=== PATIENT | female | born 1955 | race Caucasian/White ===

== ENCOUNTER 2022-08-13 15:01 | Inpatient (IN) ==
[2022-08-13] MEDS ORDERED: ONDANSETRON INJ 2 MG/ML 2 ML VIAL IV STA (15:27)
--- NOTE | 2022-08-13 15:48 | XRay Report ---
XR chest 1V portable CLINICAL HISTORY: Leg swelling, nausea. COMPARISON STUDY: No previous studies for comparison. FINDINGS: Lung volumes are normal. There is no pneumothorax or pleural effusion. No consolidation is present. There is mild cardiomegaly. Pulmonary vascular congestion is noted without overt pulmonary e ahmet. IMPRESSION: Mild cardiomegaly. Pulmonary vascular congestion without overt pulmonary edema. ACT 112: Negative or not required by law. Electronically signed by: Ronald Jeff M.D. 08/13/2022 3:45 PM
[2022-08-13 15:57] LABS: Basophils % (auto) 0.4 %; Eosinophils % (auto) 1.7 %; Hematocrit (blood only) 39.2 % (37.0-47.0); Hemoglobin 12.5 g/dl (12.0-16.0); Lymphocytes % (auto) 13.3 %; Mean Corpuscular Hemoglobin 28.5 pg (25.0-34.0); Mean Corpuscular Hgb Conc 31.9 g/dL (32.0-36.0); Mean Corpuscular Volume 89.5 fL (80.0-100.0); Mean Platelet Volume 10.1 fL (9.4-12.4); Monocytes % (auto) 6.9 %; Neutrophils % (auto) 77.3 %; Platelet Count 307 K/uL (130-400); RDW Coefficient of Variation 13.2 % (11.5-14.5); RDW Standard Deviation 43.4 fL (36.4-46.3); Red Blood Count 4.38 M/uL (4.20-5.40); White Blood Count 9.53 K/ul (4.8-10.8)
[2022-08-13 15:58] LABS: Basophils # (auto) 0.04 K/uL (0-0.2); Eosinophils # (auto) 0.16 K/uL (0-0.50); Immature Granulocytes # (auto) 0.04 K/uL (0.01-0.20); Immature Granulocytes % (auto) 0.4 %; Lymphocytes # (auto) 1.27 K/uL (1.2-3.4); Monocytes # (auto) 0.66 K/uL (0.11-0.59); Neutrophils # (auto) 7.36 K/uL (1.40-6.50)
--- NOTE | 2022-08-13 16:03 | Emergency Department Note ---
Impression & Plan Nausea & vomiting, Weakness ED Provider Note Provider: Micheal Mitchell MD DATE OF SERVICE: 08/13/2022 CHIEF COMPLAINT: Fall, nausea and vomiting, weakness HISTORY OF PRESENT ILLNESS: Patient is a 67-year-old female history of diabetes and hypothyroidism presenting via ambulance today after a fall. Patient evidently fell to the ground tripping in her living room. States that she has been having some nausea and vomiting leading to extra weakness. Denies any significant chest pain but maybe a slight twinge here there over some time. Patient lives at home by herself and was unable to get up and EMS was activated. Denies significant abdominal pain. States he has a bit of leg swelling a bit worse today and she took Lasix for this. Denies any head trauma or injury or headache. Denies any new numbness or tingling and states her leg swelling is really not much more than his baseline. Denies significant breathing difficulty. PAST MEDICAL HISTORY: As noted above MEDICATIONS: Reviewed home medications SOCIAL HISTORY: Lives at home by herself, no current pets PHYSICAL EXAM: GENERAL: alert and oriented in no acute distress on stretcher Head: normocephalic and atraumatic EYES: No injection, discharge or icterus. NECK: Trachea midline. Supple. ENT: Mucous membranes pink and moist. LUNGS: Airway patent. No retractions. Breath sounds clear with good air entry bilaterally. HEART: Regular rate and rhythm. No chest wall tenderness ABDOMEN: Soft and non-tender, without guarding or rebound. SKIN: Acyanotic, warm, dry, without rashes EXTREMITIES: 1-2+ bilateral lower extremity edema. NEUROLOGICAL: No focal deficits. No aphasia. No facial droop or slurred speech. EK bpm normal sinus rhythm. No PVC or PAC. No acute ST segment elevation or depression with a QTc of 437. CONTINUOUS CARDIAC MONITORING: was ordered and showed a heart rate of bpm in Patient's laboratory studies and imaging reviewed. Differential includes Infection, dehydration, metabolic abnormality, hypo/hyperglycemia, electrolyte disturbance, anemia, hypoxia, cardiac sources, intracerebral event, toxicologic, neurologic, as well as other pathologies. IMPRESSION/MEDICAL DECISION MAKING: Patient with some nausea vomiting and generalized weakness leading to a fall today. Presented by herself without other assistance. Could not get up and EMS was activated. Denies any significant pain or trauma. Denies striking her head. No use of high risk anticoagulants and do not believe we need CT imaging of the head or neck. Benign abdomen although she does report some nausea and v omiting. Basic blood work obtained. Reports some slight chest discomfort recently and an EKG was obtained. Denies significant chest pain now. Does report a bit of leg swelling and chest x-ray does show some slight pulmonary vascular congestion without significant effusion or edema. Not requiring oxygen. Patient is COVID-negative here. Given some Zofran here. Doubt acute intra-abdominal catastrophe such as perforation, cholecystitis, appendicitis, or diverticulitis given her well exam here. Blood work reassuring without leukocytosis or anemia. Urine sample appears contaminated with some bacteria but no white blood cells, nitrates, leuk esterase and doubt infection. No severe electrolyte abnormalities. No evidence of acute hepatitis. Normal renal function. Does report a bit of dysuria but again the urine is contaminated. Sent for culture. Thyroid function within normal limits. Normal troponin. Discussed with her. Sister who occasionally helps in town but otherwise at home alone. Did tolerate a few sips of water. Patient states she feels feels weak and very tired and does not feel that she is able to go home and care for herself at this time. Requesting observation. DIAGNOSIS: Weak, nausea and vomiting DISPOSITION: Hospitalist will evaluate Patient was agreeable with this plan. Past Med/Surg History Medical History ADHD Arthritis Chronic obstructive pulmonary disease Depression Diabetes mellitus, type 2 GERD (gastroesophageal reflux disease) H/O Hx of cancer of endometrium Hx of migraines Hx of sleep apnea NO DEVICE Hyperlipidemia Hypertension Hypothyroidism currently no taking meds, she lost them, needs a new RX Idiopathic hypersomnia Irregular heart beats NO CARDS Myasthenia gravis "EFFECTS ONLY MY VOCAL CORDS" Peripheral neuropathy Stress incontinence in female Surgical History H/O colonoscopy with polypectomy H/O total hysterectomy History of esophagogastroduodenoscopy (EGD) History of tooth extraction Hx of cataract extraction right Nausea and vomiting after administration of anesthetic agent Family History Other No family history of adverse response to anesthesia Social History (Reviewed 01/07/22 @ 08:15 by ESEQUIEL Barrera Smoking Status: Former smoker Second Hand Exposure: Yes (in the past); Do You Dip or Chew Tobacco: No; Hx Alcohol Use: Yes Alcohol type: wine Hx Substance Use: No Preferred Language: Japanese Communication Ability: Effective Electronic Component Processor Required: No Beliefs That Will Affect Care: None Current Living Situation: Alone Feels Safe at Home: Yes Assistive Devices: Cane Allergies Allergies Allergy/AdvReac Type Severity Reaction Status Date / Time penicillin G Allergy Intermediate HIVES Verified 01/09/22 08:48 codeine AdvReac Intermediate VOMITING Verified 01/09/22 08:48 hydrocodone AdvReac Intermediate Vomiting Verified 01/09/22 08:48 Home Meds Home Medications Medication Instructions Recorded Confirmed Insulin Regular 1 dose SC UD 03/27/21 01/07/22 albuterol sulfate 90 mcg/actuation 1 inh inhalation QID PRN SHORT OF 03/27/21 01/07/22 aerosol inhaler BREATH atorvastatin 20 mg tablet 20 mg PO QPM 03/27/21 01/07/22 bupropion HCl 100 mg tablet,12 hr 100 mg PO QAM 03/27/21 01/07/22 sustained-release bupropion HCl 150 mg tablet,12 hr 150 mg PO QAM 03/27/21 01/07/22 sustained-release cyanocobalamin (vitamin B-12) 1,000 mcg PO QAM 03/27/21 01/07/22 1,000 mcg tablet dextroamphetamine-amphetamine 10 10 mg PO DAILY PRN IF I NEED IT 03/27/21 01/07/22 mg tablet (Adderall) fluoxetine 60 mg tablet 60 mg PO QAM 03/27/21 01/07/22 insulin NPH-regular 70-30 U-100 30 - 40 unit subcut DAILY 03/27/21 01/07/22 insulin 100 unit/mL subcutaneous pen losartan 100 mg tablet 100 mg PO QAM 03/27/21 01/07/22 magnesium oxide 400 mg PO QAM 03/27/21 01/07/22 potassium chloride 10 mEq 10 meq PO QAM 03/27/21 01/07/22 capsule,extended release Results & Data (ED) Vital Signs Vital Signs - 24 hr 08/13/22 15:24 08/13/22 15:24 08/13/22 15:34 Temperature 36.8 C 36.8 C Temperature Source Oral Oral Pulse Rate 99 H 81 Pulse Rate [Apical] 82 Respiratory Rate 15 18 Blood Pressure 163/89 H Blood Pressure Mean 113 Pulse Oximetry 96 96 Oxygen Delivery Method Room Air Sepsis Recent Fever Within 48 Hours No Sepsis New/Unexplained Change in Mental Status No Sepsis Action Taken by Nursing No Action Required Laboratory Data 08/13/22 15:32 08/13/22 15:32 Lab Results 08/13/22 08/13/22 08/13/22 Range/Units 15:30 15:32 15:32 WBC 9.53 (4.8-10.8) K/ul RBC 4.38 (4.20-5.40) M/uL Hgb 12.5 (12.0-16.0) g/dl Hct 39.2 (37.0-47.0) % MCV 89.5 (80.0-100.0) fL MCH 28.5 (25.0-34.0) pg MCHC 31.9 L (32.0-36.0) g/dL RDW Std Deviation 43.4 (36.4-46.3) fL RDW Coeff of Buck 13.2 (11.5-14.5) % Plt Count 307 (130-400) K/uL MPV 10.1 (9.4-12.4) fL Immature Gran % (Auto) 0.4 % Neut % (Auto) 77.3 % Lymph % (Auto) 13.3 % Pitt % (Auto) 6.9 % Eos % (Auto) 1.7 % Baso % (Auto) 0.4 % Neut # (Auto) 7.36 H (1.40-6.50) K/uL Lymph # (Auto) 1.27 (1.2-3.4) K/uL Pitt # (Auto) 0.66 H (0.11-0.59) K/uL Eos # (Auto) 0.16 (0-0.50) K/uL Baso # (Auto) 0.04 (0-0.2) K/uL Immature Gran # (Auto) 0.04 (0.01-0.20) K/uL Sodium 135 L (136-145) mmol/L Potassium 4.8 (3.5-5.1) mmol/L Chloride 102 (98-107) mmol/L Carbon Dioxide 26 (21-32) mmol/L Anion Gap 7 (3-11) BUN 17 (6-23) mg/dl Creatinine 0.95 (0.6-1.2) mg/dl Est Cr Clr Drug Dosing Not Reportable Est GFR ( Amer) 70.8 ml/min Est GFR (Non-Af Amer) 61.1 ml/min BUN/Creatinine Ratio 17.9 (10-20) Glucose 93 (70-99(Fasting)) mg/dl Calcium 8.7 (8.6-10.3) mg/dl Magnesium 2.1 (1.7-2.4) mg/dl Total Bilirubin 0.8 (0.2-1.0) mg/dl AST 14 (13-39) U/L ALT 13 (7-52) U/L Alkaline Phosphatase 66 (34-104) U/L Total Creatine Kinase 66 (26-192) U/L Troponin I High Sens 5.7 (0-14) pg/ml Total Protein 6.9 (6.0-8.3) gm/dl Albumin 3.8 (3.4-5.0) gm/dl Globulin 3.1 (2.5-4.0) gm/dl Albumin/Globulin Ratio 1.2 (0.9-2) TSH (0.300-4.500) uIu/ml Urine Color Urine Appearance (Clear) Urine pH (4.5-7.5) Ur Specific Geraldine (1.000-1.030) Urine Protein (Negative) Urine Glucose (UA) (Negative) Urine Ketones (Negative) Urine Blood (Negative) Urine Nitrite (Negative) Urine Bilirubin (Negative) Urine Urobilinogen (Negative) Ur Leukocyte Esterase (Negative) Urine WBC (Auto) (0-5) /hpf Urine RBC (Auto) (0-4) /hpf U Hyaline Cast (Auto) (0-5) /lpf U Epithel Cells (Auto) (0-5) /lpf Urine Bacteria (Auto) (Negative) SARS-CoV-2, RNA, NAAT NEGATIVE (NEGATIVE) 08/13/22 08/13/22 Range/Units 15:32 16:10 WBC (4.8-10.8) K/ul RBC (4.20-5.40) M/uL Hgb (12.0-16.0) g/dl Hct (37.0-47.0) % MCV (80.0-100.0) fL MCH (25.0-34.0) pg MCHC (32.0-36.0) g/dL RDW Std Deviation (36.4-46.3) fL RDW Coeff of Buck (11.5-14.5) % Plt Count (130-400) K/uL MPV (9.4-12.4) fL Immature Gran % (Auto) % Neut % (Auto) % Lymph % (Auto) % Pitt % (Auto) % Eos % (Auto) % Baso % (Auto) % Neut # (Auto) (1.40-6.50) K/uL Lymph # (Auto) (1.2-3.4) K/uL Pitt # (Auto) (0.11-0.59) K/uL Eos # (Auto) (0-0.50) K/uL Baso # (Auto) (0-0.2) K/uL Immature Gran # (Auto) (0.01-0.20) K/uL Sodium (136-145) mmol/L Potassium (3.5-5.1) mmol/L Chloride (98-107) mmol/L Carbon Dioxide (21-32) mmol/L Anion Gap (3-11) BUN (6-23) mg/dl Creatinine (0.6-1.2) mg/dl Est Cr Clr Drug Dosing Est GFR ( Amer) ml/min Est GFR (Non-Af Amer) ml/min BUN/Creatinine Ratio (10-20) Glucose (70-99(Fasting)) mg/dl Calcium (8.6-10.3) mg/dl Magnesium (1.7-2.4) mg/dl Total Bilirubin (0.2-1.0) mg/dl AST (13-39) U/L ALT (7-52) U/L Alkaline Phosphatase (34-104) U/L Total Creatine Kinase (26-192) U/L Troponin I High Sens (0-14) pg/ml Total Protein (6.0-8.3) gm/dl Albumin (3.4-5.0) gm/dl Globulin (2.5-4.0) gm/dl Albumin/Globulin Ratio (0.9-2) TSH 4.361 (0.300-4.500) uIu/ml Urine Color Yellow Urine Appearance Cloudy A (Clear) Urine pH 8.0 H (4.5-7.5) Ur Specific Geraldine 1.013 (1.000-1.030) Urine Protein 2+ H (Negative) Urine Glucose (UA) Negative (Negative) Urine Ketones Negative (Negative) Urine Blood Negative (Negative) Urine Nitrite Negative (Negative) Urine Bilirubin Negative (Negative) Urine Urobilinogen Negative (Negative) Ur Leukocyte Esterase Negative (Negative) Urine WBC (Auto) 1-5 (0-5) /hpf Urine RBC (Auto) 5-10 H (0-4) /hpf U Hyaline Cast (Auto) 1-5 (0-5) /lpf U Epithel Cells (Auto) >30 H (0-5) /lpf Urine Bacteria (Auto) 2+ H (Negative) SARS-CoV-2, RNA, NAAT (NEGATIVE) Administered Medications Discontinued Medications Ondansetron HCl (Ondansetron Inj 2 Mg/Ml 2 Ml Vial) 4 mg IV NOW STA Stop: 08/13/22 15:28 Last Admin: 08/13/22 15:55 Dose: 4 mg Documented By: LIBIA Imaging Data Radiologist's Impression: Chest X-Ray 08/13/22 15:27 XR chest 1V portable CLINICAL HISTORY: Leg swelling, nausea. COMPARISON STUDY: No previous studies for comparison. FINDINGS: Lung volumes are normal. There is no pneumothorax or pleural effusion. No consolidation is present. There is mild cardiomegaly. Pulmonary vascular congestion is noted without overt pulmonary edema. IMPRESSION: Mild cardiomegaly. Pulmonary vascular congestion without overt pulmonary edema. ACT 112: Negative or not required by law. Electronically signed by: Ronald Jeff M.D. 08/13/2022 3:45 PM Discharge Plan Visit Data Chief Complaint: Illness ED Provider: Micheal Mitchell Discharge Problem: Nausea & vomiting, Weakness Patient Disposition: Being Evaluated by Hospitalist Forms Stand Alone Forms: My [facility] Prescriptions Prescriptions: No Action bupropion HCl 150 mg Tablet Sustained-Release 12 Hr 150 mg PO QAM potassium chloride 10 mEq Capsule, Extended Release 10 meq PO QAM atorvastatin 20 mg Tablet 20 mg PO QPM dextroamphetamine-amphetamine [Adderall] 10 mg Tablet 10 mg PO DAILY PRN (Reason: IF I NEED IT) cyanocobalamin (vitamin B-12) 1,000 mcg Tablet 1,000 mcg PO QAM bupropion HCl 100 mg Tablet Sustained-Release 12 Hr 100 mg PO QAM losartan 100 mg Tablet 100 mg PO QAM insulin NPH and regular human 100 unit/mL (70-30) Insulin Pen 30 - 40 unit SUBCUT DAILY Patient Comments: TAKES ONCE DAILY (NOT CONSISTANT) fluoxetine 60 mg Tablet 60 mg PO QAM magnesium oxide 400 mg magnesium Capsule 400 mg PO QAM Insulin Regular 1 dose SC UD Patient Comments: PER SLIDING SCALE (PT CAN NOT READ VIAL) albuterol sulfate 90 mcg/actuation Hfa Aerosol Inhaler 1 inh INHALATION QID PRN (Reason: SHORT OF BREATH) Referrals Referrals: Tariq Abdalla MD [Outside Practitioners] - Nausea & vomiting Qualifiers: Vomiting type: unspecified Qualified Code(s): R11.2 - Nausea with vomiting, unspecified
[2022-08-13 16:33] LABS: Appearance Urine Cloudy (Clear); Bacteria Urine Automated 2+ (Negative); Bilirubin Urine Negative (Negative); Blood Urine Negative (Negative); Color Urine Yellow; Epithelial Cell Urine Auto >30 /lpf (0-5); Glucose Urine UA Negative (Negative); Ketones Urine Negative (Negative); Leukocyte Esterase Urine Negative (Negative); Nitrite Urine Negative (Negative); Specific Gravity Urine 1.013 (1.000-1.030); Urobilinogen Urine Negative (Negative)
[2022-08-13 16:34] LABS: Protein Urine 2+ (Negative)
[2022-08-13 16:34] LABS: Albumin Level 3.8 gm/dl (3.4-5.0); Anion Gap 7 (3-11); Bilirubin,Total 0.8 mg/dl (0.2-1.0); Calcium 8.7 mg/dl (8.6-10.3); Carbon Dioxide 26 mmol/L (21-32); Chloride 102 mmol/L (98-107); Magnesium 2.1 mg/dl (1.7-2.4); Potassium 4.8 mmol/L (3.5-5.1); Sodium 135 mmol/L (136-145)
[2022-08-13 16:40] LABS: Alanine Aminotransferase 13 U/L (7-52); Albumin Globulin Ratio 1.2 (0.9-2); Alkaline Phosphatase 66 U/L (34-104); Aspartate Aminotransferase 14 U/L (13-39); BUN Creatinine Ratio 17.9 (10-20); Blood Urea Nitrogen 17 mg/dl (6-23); Creatine Kinase 66 U/L (26-192); Est GFR (African American) 70.8 ml/min; Est GFR (Non-African American) 61.1 ml/min; Globulin 3.1 gm/dl (2.5-4.0); Glucose 93 mg/dl (70-99(Fasting)); Total Protein 6.9 gm/dl (6.0-8.3)
[2022-08-13 16:42] LABS: Troponin I High Sensitivity 5.7 pg/ml (0-14)
[2022-08-13] MEDS ORDERED: ALUMINUM/MAGNESIUM SUSP 30 ML UDC PO PRN (17:33)
[2022-08-13] MEDS ORDERED: MAGNESIUM HYDROXIDE SUSP 30 ML UDC PO PRN (17:33)
--- NOTE | 2022-08-13 17:41 | History & Physical Report ---
Date of Service August 13, 2022 Assessment & Plan (1) Nausea & vomiting: (2) Weakness: (3) Diabetes mellitus, type 2: (4) Hypertension: (5) Depression: (6) GERD (gastroesophageal reflux disease): (7) Hyperlipidemia: Plan 67 year old female presents to the ED s/p fall, weakness and nausea/vomiting. Symptoms appear to have resolved but patient reluctant to go home and feels she needs additional support at home. She feels too weak to go home and would like evaluated for short term placement. Nausea and Vomiting: Received Zofran x1 in ED; continue PRN Zofran Vomited today with some bile, but no vomiting since arrival to ED Consider abdominal CT if symptoms return advance diet as tolerated Weakness: B/L LE edema s/p mechanical fall; fell on right side No dizziness No pain from fall Took Lasix 40 mg today x1 for le swelling;reassess in AM continuation of Lasix Diabetes Mellitus, Type 2: Insulin dependent; takes 45-50 units of Lantus and SSI with Novolog FSBS ACHS SSI while inpatient check A1C HTN: Takes Losartan; continue HLD: Takes Atorvastatin; continue Depression: Takes Wellbutrin and Prozac; continue ADHD: Takes Adderall PRN At one time was diagnosed with idiopathic hypersomnia and was taking Adderall for that Disposition: PCP: Dr. Cavazos Code Status: Full code VTE Prophylaxis: Lovenox SQ/wears compression socks at home decision maker: Carmela Terry;sister I spent a total of 88 minutes coordinating, documenting, and providing care for this patient excluding time spent in the performance of separately billed services. All of the aforementioned completed while collaborating with the assigned attending physician for a full treatment plan. Please see their addendum for further details. History of Present Illness Chief Complaint: N/V Primary Care Provider: Aivva Rossi DO Ms. Gamboa presented to the [facility] with nausea and vomiting and having amb ulatory dysfunction with some dizziness. Patient reports having a mechanical fall in her living room today and heading to her chair. She did not hit head nor did she have a LOC. She reports increasing weakness over the past few days. Patient denies headache, shortness of breath, chest pain, palpitations, abdominal pain, urinary changes, appetite changes. She does report having increased bilateral lower extremity swelling for which she did take Lasix. She denies hitting her head or LOC after her fall. CXR shows cardiomegaly and pulmonary vascular congestion. Pt reports having increased swelling in her B/L LE. Pt is not requiring supplemental oxygen. The only medications she has taken today was Lasix and Ceftin (she stepped on a piece of glass last week). She did not take her anti-hypertensive medications today. No leukocytosis or anemia noted on her labs. Will obtain urine culture based on UA results. Troponin negative. Patient does state that she feels her weakness leads to her not being able to care for herself at home. She reports that her home is like a 'hoarding' house. She reports that she has been hiring folks to help her with this. May need to consider short-term placement pending PT and OT evals. 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 Patient sitting upright in her hospital bed in no apparent distress. She does not appear toxic and is hemodynamically stable. Pt able to follow commands appropriately. Patient will be admitted for further evaluation and management. Please see A/P for further details. Allergies Allergy/AdvReac Type Severity Reaction Status Date / Time penicillin G Allergy Intermediate HIVES Verified 08/13/22 18:29 codeine AdvReac Intermediate VOMITING Verified 08/13/22 18:29 hydrocodone AdvReac Intermediate Vomiting Verified 08/13/22 18:29 Home Medications Medication Instructions Recorded Confirmed Type albuterol sulfate 90 mcg/actuation 1 inh inhalation QID PRN SHORT OF 03/27/21 08/13/22 History aerosol inhaler BREATH atorvastatin 20 mg tablet 20 mg PO QAM 03/27/21 08/13/22 History bupropion HCl 100 mg tablet,12 hr 100 mg PO QAM 03/27/21 08/13/22 History sustained-release bupropion HCl 150 mg tablet,12 hr 150 mg PO QAM 03/27/21 08/13/22 History sustained-release cyanocobalamin (vitamin B-12) 1,000 mcg PO QAM 03/27/21 08/13/22 History 1,000 mcg tablet fluoxetine 60 mg tablet 60 mg PO QAM 03/27/21 08/13/22 History insulin NPH-regular 70-30 U-100 See Rx Instructions .Route .COMPLEX 03/27/21 08/13/22 History insulin 100 unit/mL subcutaneous pen losartan 100 mg tablet 100 mg PO QAM 03/27/21 08/13/22 History magnesium oxide 400 mg PO QAM 03/27/21 08/13/22 History potassium chloride 10 mEq 10 meq PO QAM 03/27/21 08/13/22 History capsule,extended release furosemide 40 mg tablet 40 mg PO QAM 08/13/22 08/13/22 History insulin glargine 100 unit/mL (3 50 unit subcut DAILY 08/13/22 08/13/22 History mL) subcutaneous pen (Lantus Solostar U-100 Insulin) levothyroxine 50 mcg tablet 50 mcg PO QAM 08/13/22 08/13/22 History sulfamethoxazole 800 1 tab PO BID 08/13/22 08/13/22 History mg-trimethoprim 160 mg tablet Past Med/Surg History Medical History (Updated 08/13/22 @ 18:04 by RICCI Tenorio) ADHD Arthritis Chronic obstructive pulmonary disease Depression Diabetes mellitus, type 2 GERD (gastroesophageal reflux disease) H/O Hx of cancer of endometrium Hx of migraines Hx of sleep apnea NO DEVICE Hyperlipidemia Hypertension Hypothyroidism currently no taking meds, she lost them, needs a new RX Idiopathic hypersomnia Irregular heart beats NO CARDS Myasthenia gravis "EFFECTS ONLY MY VOCAL CORDS" Peripheral neuropathy Stress incontinence in female Surgical History H/O colonoscopy with polypectomy H/O total hysterectomy History of esophagogastroduodenoscopy (EGD) History of tooth extraction Hx of cataract extraction right Nausea and vomiting after administration of anesthetic agent Family History Other No family history of adverse response to anesthesia Social History Smoking Status: Former smoker Second Hand Exposure: Yes (in the past); Do You Dip or Chew Tobacco: No; Hx Alcohol Use: Yes Alcohol type: wine Hx Substance Use: No Preferred Language: Yi Communication Ability: Effective Mortgage Broker Required: No Beliefs That Will Affect Care: None Current Living Situation: Alone Feels Safe at Home: Yes Assistive Devices: Cane Review of Systems Review of Systems: Neuro: (-) Falls, trauma, slurred speech HEENT: (-) EDWARDS, dizziness, dysphagia, visual or auditory changes CV: (-) CP, palpitations, swelling Resp: (-) SOB GI: (-) appetite changes, N/V/D, bowel changes : (-) urinary changes Skin: (-) rashes Psych: (-) anxiety, depression Physical Exam Physical Exam: Neuro: AAOx4, PERRLA, no aphagia, memory changes, CNII-XII grossly intact HEENT: head normocephalic, moist mucus membranes CV: S1/S2, (-) M/G/R, (-) edema, cap refill < 3 seconds Resp: Lungs CTA in all coronel. On RA GI: Abdomen large S/NT/ND, Ax4 bowel sounds, (-) CVA tenderness Musculoskeletal: 5/5 B/L UE strength, 5/5 B/L LE strength. No gait disturbance Skin: (-) rashes , (-) erythema. Psych: euthymic mood Results & Data Results & Data Vital Signs (Past 12 Hours) Vital Signs Temp Pulse Pulse Resp BP Pulse Ox O2 Del Method 08/13/22 15:34 81 08/13/22 15:24 36.8 C 82 18 96 08/13/22 15:24 36.8 C 99 H 15 163/89 H 96 Room Air Laboratory Results Short CBC 08/13/22 Range/Units 15:32 WBC 9.53 (4.8-10.8) K/ul Hgb 12.5 (12.0-16.0) g/dl Hct 39.2 (37.0-47.0) % Plt Count 307 (130-400) K/uL BMP 08/13/22 15:32 Sodium 135 L Potassium 4.8 Chloride 102 Carbon Dioxide 26 BUN 17 Creatinine 0.95 Glucose 93 Calcium 8.7 Cardiac Enzymes 08/13/22 Range/Units 15:32 Total Creatine Kinase 66 (26-192) U/L Liver Function 08/13/22 Range/Units 15:32 Total Bilirubin 0.8 (0.2-1.0) mg/dl AST 14 (13-39) U/L ALT 13 (7-52) U/L Alkaline Phosphatase 66 (34-104) U/L Albumin 3.8 (3.4-5.0) gm/dl Urine 08/13/22 Range/Units 16:10 Urine Color Yellow Urine Appearance Cloudy A (Clear) Urine pH 8.0 H (4.5-7.5) Ur Specific Vance 1.013 (1.000-1.030) Urine Protein 2+ H (Negative) Urine Glucose (UA) Negative (Negative) Diagnostic Findings Chest X-Ray 08/13/22 15:27 XR chest 1V portable CLINICAL HISTORY: Leg swelling, nausea. COMPARISON STUDY: No previous studies for comparison. FINDINGS: Lung volumes are normal. There is no pneumothorax or pleural effusion. No consolidation is present. There is mild cardiomegaly. Pulmonary vascular congestion is noted without overt pulmonary edema. IMPRESSION: Mild cardiomegaly. Pulmonary vascular congestion without overt pulmonary edema. ACT 112: Negative or not required by law. Electronically signed by: Roanld Jeff M.D. 08/13/2022 3:45 PM Code Status & VTE Plan Code Status Full code in the event of cardiac or respiratory arrest VTE Prophylaxis Plan VTE Prophylaxis will be ordered: Yes Supervising Physician Co-Signing Physician Notes Patient was seen and examined independently. Chart reviewed. Case discussed with EDMUNDO. PT/OT, CM consult for placement (1) Nausea & vomiting Vomiting type: unspecified Qualified Code(s): R11.2 - Nausea with vomiting, unspecified
[2022-08-13] MEDS ORDERED: DIPHTHERIA/TETANUS/PERTUSSIS Vaccine (Tdap, Age 7+yrs) 0.5mL SYR/VL IM ONE (18:50)
[2022-08-13] MEDS ORDERED: CARBOHYDRATES FOR HYPOGLYCEMIA PO PRN (22:11)
[2022-08-13] MEDS ORDERED: GLUCAGON FOR INJ 1 MG VIAL SQ PRN (22:11)
[2022-08-13] MEDS ORDERED: DEXTROSE 50% 50 ML SYRINGE IV PRN (22:11)
[2022-08-13] MEDS ORDERED: GLUCOSE 10 TAB/TUBE PO PRN (22:11)
[2022-08-13] MEDS ORDERED: PHARMACY GLYCEMIC MGMT CONSULT PRN (22:11)
[2022-08-13] MEDS ORDERED: GLUCOSE 40% GEL 15 GM TUBE PO PRN (22:11)
[2022-08-13] MEDS: INSULIN ASPART PER UNIT CHARGE SC SCH (22:41)
[2022-08-13] MEDS: LANTUS PER UNIT CHARGE SQ SCH (22:46)
[2022-08-13] MEDS: HEPARIN SOD 5,000 UNIT/0.5 ML VIAL SQ SCH (22:56)
[2022-08-14] MEDS: LEVOTHYROXINE SODIUM 50 MCG TABLET PO SCH (05:49)
[2022-08-14] MEDS: ACETAMINOPHEN 325 MG TAB PO PRN (05:52)
[2022-08-14 06:51] LABS: Hemoglobin 11.2 g/dl (12.0-16.0); Mean Corpuscular Hemoglobin 28.2 pg (25.0-34.0); Mean Corpuscular Volume 88.2 fL (80.0-100.0); Mean Platelet Volume 10.1 fL (9.4-12.4); Platelet Count 271 K/uL (130-400); RDW Coefficient of Variation 13.2 % (11.5-14.5); Red Blood Count 3.97 M/uL (4.20-5.40); White Blood Count 10.59 K/ul (4.8-10.8)
[2022-08-14 07:16] LABS: Albumin Globulin Ratio 1.3 (0.9-2); Albumin Level 3.2 gm/dl (3.4-5.0); BUN Creatinine Ratio 17.2 (10-20); Bilirubin,Total 0.7 mg/dl (0.2-1.0); Calcium 8.7 mg/dl (8.6-10.3); Creatinine Clr Calc Pharmacy 82.4 ml/min; Est GFR (African American) 78.8 ml/min; Globulin 2.5 gm/dl (2.5-4.0); Magnesium 2.1 mg/dl (1.7-2.4); Potassium 4.6 mmol/L (3.5-5.1); Total Protein 5.7 gm/dl (6.0-8.3)
[2022-08-14 07:29] LABS: Estimated Average Glucose 146 mg/dl; Hemoglobin A1C 6.7 % (4.5-5.6)
[2022-08-14] MEDS ORDERED: ENOXAPARIN INJ 30 MG/0.3 ML SYR SQ SCH (09:00)
[2022-08-14] MEDS: INSULIN ASPART PER UNIT CHARGE SC SCH ×4 (09:12→21:17)
[2022-08-14] MEDS: LANTUS PER UNIT CHARGE SQ SCH (09:16)
[2022-08-14] MEDS: buPROPion SR 100 MG TABCR PO SCH (09:17)
[2022-08-14] MEDS: buPROPion SR 150 MG TABCR PO SCH (09:18)
[2022-08-14] MEDS: FUROSEMIDE 40 MG TAB PO SCH (09:18)
[2022-08-14] MEDS: HEPARIN SOD 5,000 UNIT/0.5 ML VIAL SQ SCH ×2 (09:18→21:14)
[2022-08-14] MEDS: LOSARTAN POTASSIUM 50 MG TAB PO SCH (09:18)
[2022-08-14] MEDS: FLUoxetine HCL 20 MG CAP PO SCH (09:18)
[2022-08-14] MEDS: ATORVASTATIN 20 MG TAB PO SCH (09:18)
[2022-08-14] MEDS: POTASSIUM CHLORIDE 10 MEQ TABCR PO SCH ×2 (09:19→09:21)
[2022-08-14] MEDS: CYANOCOBALAMIN (B-12) 500 MCG TABLET PO SCH (09:19)
[2022-08-14] MEDS: MAGNESIUM OXIDE 400 MG TAB PO SCH (09:19)
--- NOTE | 2022-08-14 09:24 | Hospitalist Progress Note ---
Date of Service August 14, 2022 Assessment & Plan (1) Nausea & vomiting: (2) Weakness: (3) Diabetes mellitus, type 2: (4) Hypertension: (5) Depression: (6) GERD (gastroesophageal reflux disease): (7) Hyperlipidemia: Plan 67 year old female presents to the ED s/p fall, weakness and nausea/vomiting. Symptoms appear to have mostly resolved. Pt felt too weak to go home and would like evaluated for short term placement. UTI Ucultx - probable Enterococcus -pt w/ PCN allergy - discussed w/ pharmacy - will start on vancomycin for now -Per patient, sisters history of UTIs and pyelonephritis in the past. Also reports using penicillin in the past, then developed hives, and has not used it since Nausea and Vomiting: Received Zofran x1 in ED; continue PRN Zofran - no vomiting since arrival to ED, currently eating Consider abdominal CT if symptoms return advance diet as tolerated Weakness: B/L LE edema s/p mechanical fall; fell on right side No dizziness No pain from fall Took Lasix 40 mg x1 for le swelling;reassess in AM continuation of Lasix 5/24 -orthostatic today on PT evaluation, hold Lasix, compression stockings daily Diabetes Mellitus, Type 2: Insulin dependent; takes 45-50 units of Lantus and SSI with Novolog FSBS ACHS SSI while inpatient check A1C HTN: Takes Losartan; continue HLD: Takes Atorvastatin; continue Depression: Takes Wellbutrin and Prozac; continue ADHD: Takes Adderall PRN At one time was diagnosed with idiopathic hypersomnia and was taking Adderall for that CATHERINE -Patient reports history of CATHERINE, and reports that she is supposed to be evaluated as outpatient -May need nocturnal hypoxia study done prior to discharge Disposition: PCP: Dr. Cavazos Code Status: Full code VTE Prophylaxis: Lovenox SQ/wears compression socks at home decision maker: Carmela Terry;sister Admission and Anticipated Discharge Date Admission Date: August 13, 2022 Subjective Pt seen in follow up of weakness, n/v, UTI Currently sitting up in bed, in no acute distress, reports having history of UTIs, and pyelonephritis in the past Urine culture positive for probable Enterococcus, discussed with pharmacy Patient reports she used penicillin in the past without any issues, then developed hives and did not use it since then Denies fevers chills denies chest pain or shortness of breath Reports history of sleep apnea, and states that she was supposed to have a sleep study done as outpatient today Patient also was orthostatic today with PT Review of Systems Review of Systems: All systems reviewed & are unremarkable except as noted in Subjective Physical Exam 2 Physical Exam: General: obese F (BMI 55), in NAD HEENT: head normocephalic, moist mucus membranes CV: S1/S2, (-) M/G/R, (+) edema Resp: Lungs CTAB GI: Abdomen large S/NT/ND, Ax4 bowel sounds, (-) CVA tenderness Musculoskeletal: moves extremities Skin: (-) rashes , (-) erythema. Neuro: AAOx3, EOMI, no facial asymmetry, moves extremities Psych: euthymic mood Results & Data Results & Data Vital Signs (Past 12 Hours) Vital Signs Temp Pulse Pulse Pulse Resp BP BP 08/14/22 07:30 36.4 C L 82 20 133/76 08/14/22 02:48 36.4 C L 78 18 126/70 08/14/22 01:37 81 08/13/22 23:12 08/13/22 23:12 36.3 C L 82 20 122/72 Pulse Ox O2 Del Method O2 Flow Rate 08/14/22 07:30 97 Nasal Cannula 2 08/14/22 02:48 97 Nasal Cannula 1 08/14/22 01:37 08/13/22 23:12 Nasal Cannula 2 08/13/22 23:12 100 Nasal Cannula 2 Laboratory Results 08/14/22 08/14/22 08/14/22 Range/Units 09:09 06:17 06:17 WBC 10.59 (4.8-10.8) K/ul RBC 3.97 L (4.20-5.40) M/uL Hgb 11.2 L (12.0-16.0) g/dl Hct 35.0 L (37.0-47.0) % MCV 88.2 (80.0-100.0) fL MCH 28.2 (25.0-34.0) pg MCHC 32.0 (32.0-36.0) g/dL RDW Std Deviation 43.0 (36.4-46.3) fL RDW Coeff of Buck 13.2 (11.5-14.5) % Plt Count 271 (130-400) K/uL MPV 10.1 (9.4-12.4) fL Immature Gran % (Auto) % Neut % (Auto) % Lymph % (Auto) % [place] % (Auto) % Eos % (Auto) % Baso % (Auto) % Neut # (Auto) (1.40-6.50) K/uL Lymph # (Auto) (1.2-3.4) K/uL [place] # (Auto) (0.11-0.59) K/uL Eos # (Auto) (0-0.50) K/uL Baso # (Auto) (0-0.2) K/uL Immature Gran # (Auto) (0.01-0.20) K/uL Sodium 135 L (136-145) mmol/L Potassium 4.6 (3.5-5.1) mmol/L Chloride 104 (98-107) mmol/L Carbon Dioxide 25 (21-32) mmol/L Anion Gap 6 (3-11) BUN 15 (6-23) mg/dl Creatinine 0.87 (0.6-1.2) mg/dl Est Cr Clr Drug Dosing 82.4 Est GFR ( Amer) 78.8 ml/min Est GFR (Non-Af Amer) 68.0 ml/min BUN/Creatinine Ratio 17.2 (10-20) Glucose 61 L (70-99(Fasting)) mg/dl POC Glucose 122 H (70-99) mg/dl Estimat Average Glucose mg/dl Hemoglobin A1c (4.5-5.6) % Calcium 8.7 (8.6-10.3) mg/dl Magnesium 2.1 (1.7-2.4) mg/dl Total Bilirubin 0.7 (0.2-1.0) mg/dl AST 11 L (13-39) U/L ALT 10 (7-52) U/L Alkaline Phosphatase 53 (34-104) U/L Total Creatine Kinase (26-192) U/L Troponin I High Sens (0-14) pg/ml Total Protein 5.7 L (6.0-8.3) gm/dl Albumin 3.2 L (3.4-5.0) gm/dl Globulin 2.5 (2.5-4.0) gm/dl Albumin/Globulin Ratio 1.3 (0.9-2) TSH (0.300-4.500) uIu/ml Urine Color Urine Appearance (Clear) Urine pH (4.5-7.5) Ur Specific [place] (1.000-1.030) Urine Protein (Negative) Urine Glucose (UA) (Negative) Urine Ketones (Negative) Urine Blood (Negative) Urine Nitrite (Negative) Urine Bilirubin (Negative) Urine Urobilinogen (Negative) Ur Leukocyte Esterase (Negative) Urine WBC (Auto) (0-5) /hpf Urine RBC (Auto) (0-4) /hpf U Hyaline Cast (Auto) (0-5) /lpf U Epithel Cells (Auto) (0-5) /lpf Urine Bacteria (Auto) (Negative) SARS-CoV-2, RNA, NAAT (NEGATIVE) 08/14/22 08/13/22 08/13/22 Range/Units 06:17 21:28 16:10 WBC (4.8-10.8) K/ul RBC (4.20-5.40) M/uL Hgb (12.0-16.0) g/dl Hct (37.0-47.0) % MCV (80.0-100.0) fL MCH (25.0-34.0) pg MCHC (32.0-36.0) g/dL RDW Std Deviation (36.4-46.3) fL RDW Coeff of Buck (11.5-14.5) % Plt Count (130-400) K/uL MPV (9.4-12.4) fL Immature Gran % (Auto) % Neut % (Auto) % Lymph % (Auto) % [place] % (Auto) % Eos % (Auto) % Baso % (Auto) % Neut # (Auto) (1.40-6.50) K/uL Lymph # (Auto) (1.2-3.4) K/uL [place] # (Auto) (0.11-0.59) K/uL Eos # (Auto) (0-0.50) K/uL Baso # (Auto) (0-0.2) K/uL Immature Gran # (Auto) (0.01-0.20) K/uL Sodium (136-145) mmol/L Potassium (3.5-5.1) mmol/L Chloride (98-107) mmol/L Carbon Dioxide (21-32) mmol/L Anion Gap (3-11) BUN (6-23) mg/dl Creatinine (0.6-1.2) mg/dl Est Cr Clr Drug Dosing Est GFR ( Amer) ml/min Est GFR (Non-Af Amer) ml/min BUN/Creatinine Ratio (10-20) Glucose (70-99(Fasting)) mg/dl POC Glucose 101 H (70-99) mg/dl Estimat Average Glucose 146 mg/dl Hemoglobin A1c 6.7 H (4.5-5.6) % Calcium (8.6-10.3) mg/dl Magnesium (1.7-2.4) mg/dl Total Bilirubin (0.2-1.0) mg/dl AST (13-39) U/L ALT (7-52) U/L Alkaline Phosphatase (34-104) U/L Total Creatine Kinase (26-192) U/L Troponin I High Sens (0-14) pg/ml Total Protein (6.0-8.3) gm/dl Albumin (3.4-5.0) gm/dl Globulin (2.5-4.0) gm/dl Albumin/Globulin Ratio (0.9-2) TSH (0.300-4.500) uIu/ml Urine Color Yellow Urine Appearance Cloudy A (Clear) Urine pH 8.0 H (4.5-7.5) Ur Specific [place] 1.013 (1.000-1.030) Urine Protein 2+ H (Negative) Urine Glucose (UA) Negative (Negative) Urine Ketones Negative (Negative) Urine Blood Negative (Negative) Urine Nitrite Negative (Negative) Urine Bilirubin Negative (Negative) Urine Urobilinogen Negative (Negative) Ur Leukocyte Esterase Negative (Negative) Urine WBC (Auto) 1-5 (0-5) /hpf Urine RBC (Auto) 5-10 H (0-4) /hpf U Hyaline Cast (Auto) 1-5 (0-5) /lpf U Epithel Cells (Auto) >30 H (0-5) /lpf Urine Bacteria (Auto) 2+ H (Negative) SARS-CoV-2, RNA, NAAT (NEGATIVE) 08/13/22 08/13/22 08/13/22 Range/Units 15:32 15:32 15:32 WBC 9.53 (4.8-10.8) K/ul RBC 4.38 (4.20-5.40) M/uL Hgb 12.5 (12.0-16.0) g/dl Hct 39.2 (37.0-47.0) % MCV 89.5 (80.0-100.0) fL MCH 28.5 (25.0-34.0) pg MCHC 31.9 L (32.0-36.0) g/dL RDW Std Deviation 43.4 (36.4-46.3) fL RDW Coeff of Buck 13.2 (11.5-14.5) % Plt Count 307 (130-400) K/uL MPV 10.1 (9.4-12.4) fL Immature Gran % (Auto) 0.4 % Neut % (Auto) 77.3 % Lymph % (Auto) 13.3 % [place] % (Auto) 6.9 % Eos % (Auto) 1.7 % Baso % (Auto) 0.4 % Neut # (Auto) 7.36 H (1.40-6.50) K/uL Lymph # (Auto) 1.27 (1.2-3.4) K/uL [place] # (Auto) 0.66 H (0.11-0.59) K/uL Eos # (Auto) 0.16 (0-0.50) K/uL Baso # (Auto) 0.04 (0-0.2) K/uL Immature Gran # (Auto) 0.04 (0.01-0.20) K/uL Sodium 135 L (136-145) mmol/L Potassium 4.8 (3.5-5.1) mmol/L Chloride 102 (98-107) mmol/L Carbon Dioxide 26 (21-32) mmol/L Anion Gap 7 (3-11) BUN 17 (6-23) mg/dl Creatinine 0.95 (0.6-1.2) mg/dl Est Cr Clr Drug Dosing Not Reportable Est GFR ( Amer) 70.8 ml/min Est GFR (Non-Af Amer) 61.1 ml/min BUN/Creatinine Ratio 17.9 (10-20) Glucose 93 (70-99(Fasting)) mg/dl POC Glucose (70-99) mg/dl Estimat Average Glucose mg/dl Hemoglobin A1c (4.5-5.6) % Calcium 8.7 (8.6-10.3) mg/dl Magnesium 2.1 (1.7-2.4) mg/dl Total Bilirubin 0.8 (0.2-1.0) mg/dl AST 14 (13-39) U/L ALT 13 (7-52) U/L Alkaline Phosphatase 66 (34-104) U/L Total Creatine Kinase 66 (26-192) U/L Troponin I High Sens 5.7 (0-14) pg/ml Total Protein 6.9 (6.0-8.3) gm/dl Albumin 3.8 (3.4-5.0) gm/dl Globulin 3.1 (2.5-4.0) gm/dl Albumin/Globulin Ratio 1.2 (0.9-2) TSH 4.361 (0.300-4.500) uIu/ml Urine Color Urine Appearance (Clear) Urine pH (4.5-7.5) Ur Specific [place] (1.000-1.030) Urine Protein (Negative) Urine Glucose (UA) (Negative) Urine Ketones (Negative) Urine Blood (Negative) Urine Nitrite (Negative) Urine Bilirubin (Negative) Urine Urobilinogen (Negative) Ur Leukocyte Esterase (Negative) Urine WBC (Auto) (0-5) /hpf Urine RBC (Auto) (0-4) /hpf U Hyaline Cast (Auto) (0-5) /lpf U Epithel Cells (Auto) (0-5) /lpf Urine Bacteria (Auto) (Negative) SARS-CoV-2, RNA, NAAT (NEGATIVE) 08/13/22 Range/Units 15:30 WBC (4.8-10.8) K/ul RBC (4.20-5.40) M/uL Hgb (12.0-16.0) g/dl Hct (37.0-47.0) % MCV (80.0-100.0) fL MCH (25.0-34.0) pg MCHC (32.0-36.0) g/dL RDW Std Deviation (36.4-46.3) fL RDW Coeff of Buck (11.5-14.5) % Plt Count (130-400) K/uL MPV (9.4-12.4) fL Immature Gran % (Auto) % Neut % (Auto) % Lymph % (Auto) % [place] % (Auto) % Eos % (Auto) % Baso % (Auto) % Neut # (Auto) (1.40-6.50) K/uL Lymph # (Auto) (1.2-3.4) K/uL [place] # (Auto) (0.11-0.59) K/uL Eos # (Auto) (0-0.50) K/uL Baso # (Auto) (0-0.2) K/uL Immature Gran # (Auto) (0.01-0.20) K/uL Sodium (136-145) mmol/L Potassium (3.5-5.1) mmol/L Chloride (98-107) mmol/L Carbon Dioxide (21-32) mmol/L Anion Gap (3-11) BUN (6-23) mg/dl Creatinine (0.6-1.2) mg/dl Est Cr Clr Drug Dosing Est GFR ( Amer) ml/min Est GFR (Non-Af Amer) ml/min BUN/Creatinine Ratio (10-20) Glucose (70-99(Fasting)) mg/dl POC Glucose (70-99) mg/dl Estimat Average Glucose mg/dl Hemoglobin A1c (4.5-5.6) % Calcium (8.6-10.3) mg/dl Magnesium (1.7-2.4) mg/dl Total Bilirubin (0.2-1.0) mg/dl AST (13-39) U/L ALT (7-52) U/L Alkaline Phosphatase (34-104) U/L Total Creatine Kinase (26-192) U/L Troponin I High Sens (0-14) pg/ml Total Protein (6.0-8.3) gm/dl Albumin (3.4-5.0) gm/dl Globulin (2.5-4.0) gm/dl Albumin/Globulin Ratio (0.9-2) TSH (0.300-4.500) uIu/ml Urine Color Urine Appearance (Clear) Urine pH (4.5-7.5) Ur Specific [place] (1.000-1.030) Urine Protein (Negative) Urine Glucose (UA) (Negative) Urine Ketones (Negative) Urine Blood (Negative) Urine Nitrite (Negative) Urine Bilirubin (Negative) Urine Urobilinogen (Negative) Ur Leukocyte Esterase (Negative) Urine WBC (Auto) (0-5) /hpf Urine RBC (Auto) (0-4) /hpf U Hyaline Cast (Auto) (0-5) /lpf U Epithel Cells (Auto) (0-5) /lpf Urine Bacteria (Auto) (Negative) SARS-CoV-2, RNA, NAAT NEGATIVE (NEGATIVE) Medications Administered Current Inpatient Medications Acetaminophen (Acetaminophen 325 Mg Tab) 650 mg PO Q4H PRN PRN Reason: Pain or Fever Stop: 09/12/22 17:32 Last Admin: 08/14/22 05:52 Dose: 650 mg Al Hydrox/Mg Hydrox/Simethicone (Aluminum/Magnesium Susp 30 Ml Udc) 15 ml PO Q4H PRN PRN Reason: Dyspepsia Stop: 09/12/22 17:32 Atorvastatin Calcium (Atorvastatin 20 Mg Tab) 20 mg PO [facility] Stop: 09/13/22 08:59 Last Admin: 08/14/22 09:18 Dose: 20 mg Bupropion HCl (Bupropion Sr 100 Mg Tabcr) 100 mg PO [facility] Stop: 09/13/22 08:59 Last Admin: 08/14/22 09:17 Dose: 100 mg Bupropion HCl (Bupropion Sr 150 Mg Tabcr) [facility] Stop: 09/13/22 08:59 Last Admin: 08/14/22 09:18 Dose: 150 mg Cyanocobalamin (Cyanocobalamin (B-12) 500 Mcg Tablet) 1,000 mcg PO [facility] Stop: 09/13/22 08:59 Last Admin: 08/14/22 09:19 Dose: 1,000 mcg Dextrose (Dextrose 50% 50 Ml Syringe) 25 - 50 ml IV UD PRN; Protocol PRN Reason: Hypoglycemia Protocol Stop: 09/12/22 22:10 Fluoxetine HCl (Fluoxetine Hcl 20 Mg Cap) 60 mg PO [facility] Stop: 09/13/22 08:59 Last Admin: 08/14/22 09:18 Dose: 60 mg Furosemide (Furosemide 40 Mg Tab) 40 mg PO [facility] Stop: 09/13/22 08:59 Last Admin: 08/14/22 09:18 Dose: 40 mg Glucagon (Glucagon For Inj 1 Mg Vial) 1 mg SQ UD PRN; Protocol PRN Reason: Hypoglycemia Protocol Stop: 09/12/22 22:10 Glucose (Glucose 10 Tab/Tube) 4 - 8 tab PO UD PRN; Protocol PRN Reason: Hypoglycemia Treatment Stop: 09/12/22 22:10 Glucose (Glucose 40% Gel 15 Gm Tube) 15 - 30 gm PO UD PRN; Protocol PRN Reason: Hypoglycemia Protocol Stop: 09/12/22 22:10 Heparin Sodium (Porcine) (Heparin Sod 5,000 Unit/0.5 Ml Vial) 5,000 units SQ Q 12 [facility] Stop: 09/12/22 20:59 Last Admin: 08/14/22 09:18 Dose: 5,000 units Insulin Aspart (Insulin Aspart Per Unit Charge) 0 units SC ACHS [facility] Stop: 09/12/22 22:10 Last Admin: 08/14/22 09:12 Dose: Not Given Insulin Glargine (Lantus Per Unit Charge) 6 units SQ BID [facility]; Protocol Stop: 09/12/22 22:10 Last Admin: 08/14/22 09:16 Dose: 3 units Levothyroxine Sodium (Levothyroxine Sodium 50 Mcg Tablet) 50 mcg PO DAILYBB [facility] Stop: 09/13/22 06:29 Last Admin: 08/14/22 05:49 Dose: 50 mcg Losartan Potassium (Losartan Potassium 50 Mg Tab) 100 mg PO QAM [facility] Stop: 09/13/22 08:59 Last Admin: 08/14/22 09:18 Dose: 100 mg Magnesium Hydroxide (Magnesium Hydroxide Susp 30 Ml Udc) 30 ml PO Q12H PRN PRN Reason: Constipation Stop: 09/12/22 17:32 Magnesium Oxide (Magnesium Oxide 400 Mg Tab) 400 mg PO QAM [facility] Stop: 09/13/22 08:59 Last Admin: 08/14/22 09:19 Dose: 400 mg Miscellaneous (Carbohydrates For Hypoglycemia ) 15 - 30 gm PO UD PRN PRN Reason: Hypoglycemia Protocol Stop: 09/12/22 22:10 Miscellaneous Information (Pharmacy Glycemic Mgmt Consult) 1 each N/A UD PRN PRN Reason: Consult Stop: 09/12/22 22:10 Ondansetron HCl (Ondansetron Inj 2 Mg/Ml 2 Ml Vial) 4 mg IV Q6H PRN PRN Reason: Nausea Stop: 09/12/22 17:32 Polyethylene Glycol (Polyethylene (Miralax) 17 Gm Pack) 17 gm PO DAILY PRN PRN Reason: Constipation Stop: 09/12/22 17:32 Potassium Chloride (Potassium Chloride 10 Meq Tabcr) 10 meq PO QAM [facility] Stop: 09/13/22 08:59 (1) Nausea & vomiting Vomiting type: unspecified Qualified Code(s): R11.2 - Nausea with vomiting, unspecified
[2022-08-14] MEDS ORDERED: VANCOMYCIN CONSULT ACTIVE PRN (09:26)
[2022-08-14] MEDS ORDERED: VANCOMYCIN HCL 2,750 MG in SODIUM CHLORIDE 0.9% 500 ML IV ONE (10:00)
--- NOTE | 2022-08-14 10:48 | Electrocardiogram Report ---
Test Reason : Blood Pressure : / mmHG Vent. Rate : 083 BPM Atrial Rate : 083 BPM P-R Int : 178 ms QRS Dur : 086 ms QT Int : 372 ms P-R-T Axes : 055 051 049 degrees QTc Int : 437 ms Normal sinus rhythm Possible Left atrial enlargement Low voltage QRS Septal infarct , age undetermined Abnormal ECG No previous ECGs available Confirmed by Antonino Kelly ([id number]) on 08/14/2022 10:47:36 AM Referred By: REFERRED SELF Confirmed By:Antonino Kelly
[2022-08-14] MEDS ORDERED: LANTUS PER UNIT CHARGE SQ ONE (12:30)
--- NOTE | 2022-08-14 13:44 | Pharmacy Report ---
Pharmacy Vanc AUC Short Note - Date of Service August 14, 2022 - Assessment & Plan Assessment 67 year old F receiving vancomycin for treatment of Enterococcus UTI. Pertinent microbiologic data includes: urine culture growing Entercoccus. Day # 2 of antimicrobial therapy. Plan Vancomycin * AUC/PATIENCE is the preferred PK/PD target for vancomycin * AUC guided dosing is effective and associated with decreased risk of nephrotoxicity compared to traditional trough targets * vancomycin 1000 mg IV q12 predicted to achieve target AUC/PATIENCE of 400-600 mg/L.hr and may be associated with a 11 % risk of nephrotoxicity * Trough ordered for: 08/15/22 prior to 11 am dose. Pharmacy will continue to follow and will adjust dose/frequency as necessary. Thank you.
--- NOTE | 2022-08-14 13:52 | Pharmacy Report ---
Pharmacy Glycemic Short Note 2 - Date of Service August 14, 2022 - Glycemic Short BSG Results (Last 24 hours): 08/13/22 08/13/22 08/14/22 15:32 21:28 06:17 Glucose 93 61 L POC Glucose 101 H 08/14/22 08/14/22 09:09 11:29 Glucose POC Glucose 122 H 145 H OUTPATIENT ANTIDIABETIC REGIMEN: * Lantus 45-50 units SQ daily @ 11 * Humalog with meals (takes 3-5 units per 25 grams of CHO consumed) * HbA1C = 6.7% (08/14/22) ASSESSMENT: * Ms Gamboa is a 67 y/o with a PMH of T2DM who presents with a UTI. * BSGs yesterday on day of admission were lower at 101 mg/dL. * Fasting today is 122 mg/dL and lunch was 144 mg/dL (after no coverage for clear liquid breakfast). * This pharmacist had discussion with patient about her glycemic control. She takes her Lantus at 11 AM. Patient takes 45-48 units per day. In a mutual decision, it was decided to give 30 units at 11 am (in addition to the 3 units already given). * CF/CR loosened based upon patient's home regimen. PLAN FOR INPATIENT GLYCEMIC CONTROL: * Basal insulin * Lantus 30 units SQ today at 11 AM - subsequent dosing to be determined based upon response * Bolus insulin * NovoLog per scale ACHS or Q6hrs while NPO * Goal Range: Low 110 mg/dL - High 140 mg/dL * Correction Factor: 20 mg/dL/unit * Nutritional / Prandial insulin per carb ratio of 1 unit per 7 grams CHO consumed
[2022-08-14] MEDS: ADVANCED PROBIOTIC 1250 MG CAPSULE PO SCH (18:38)
[2022-08-14] MEDS: VANCOMYCIN HCL 1,000 MG in SODIUM CHLORIDE 0.9% 250 ML IV SCH (23:07)
[2022-08-15] MEDS: ACETAMINOPHEN 325 MG TAB PO PRN ×2 (02:08→22:09)
[2022-08-15] MEDS: LEVOTHYROXINE SODIUM 50 MCG TABLET PO SCH (05:55)
[2022-08-15 06:55] LABS: Hematocrit (blood only) 36.1 % (37.0-47.0); Hemoglobin 11.4 g/dl (12.0-16.0); Mean Corpuscular Hemoglobin 28.5 pg (25.0-34.0); Mean Corpuscular Hgb Conc 31.6 g/dL (32.0-36.0); Mean Corpuscular Volume 90.3 fL (80.0-100.0); Mean Platelet Volume 10.1 fL (9.4-12.4); Platelet Count 244 K/uL (130-400); RDW Standard Deviation 42.4 fL (36.4-46.3)
[2022-08-15 07:22] LABS: BUN Creatinine Ratio 17.5 (10-20); Calcium 8.7 mg/dl (8.6-10.3); Creatinine Clr Calc Pharmacy 69.6 ml/min; Est GFR (African American) 64.2 ml/min; Est GFR (Non-African American) 55.4 ml/min; Magnesium 1.9 mg/dl (1.7-2.4); Phosphorus 4.2 mg/dl (2.5-4.9); Potassium 4.5 mmol/L (3.5-5.1)
--- NOTE | 2022-08-15 07:41 | Hospitalist Progress Note ---
Date of Service August 15, 2022 Assessment & Plan (1) Nausea & vomiting: (2) Weakness: (3) Diabetes mellitus, type 2: (4) Hypertension: (5) Depression: (6) GERD (gastroesophageal reflux disease): (7) Hyperlipidemia: Plan 67 year old female presents to the ED s/p fall, weakness and nausea/vomiting. Symptoms appear to have mostly resolved. Pt felt too weak to go home and would like to be evaluated for short term placement. UTI Ucultx - Enterococcus faecalis -pt w/ PCN allergy - discussed w/ pharmacy - and started on vancomycin for now -Per patient, history of UTIs and pyelonephritis in the past. Also reports using penicillin in the past, then developed hives, and has not used it since Nausea and Vomiting: Received Zofran x1 in ED; continue PRN Zofran - no vomiting since arrival to ED, eating w/o any issues Consider abdominal CT if symptoms return advance diet as tolerated Weakness: B/L LE edema s/p mechanical fall; fell on right side No dizziness No pain from fall Took Lasix 40 mg x1 for le swelling prior to admission;reassess in AM continuation of Lasix 08/14 - orthostatic on PT evaluation, hold Lasix, compression stockings daily Diabetes Mellitus, Type 2: Insulin dependent; takes 45-50 units of Lantus and SSI with Novolog FSBS ACHS SSI while inpatient current A1C 6.7% HTN: Takes Losartan; continue HLD: Takes Atorvastatin; continue Depression: Takes Wellbutrin and Prozac; continue ADHD: Takes Adderall PRN At one time was diagnosed with idiopathic hypersomnia and was taking Adderall for that CATHERINE -Patient reports history of CATHERINE, and reports that she is supposed to be evaluated as outpatient -will obtain nocturnal hypoxia study Disposition: PCP: Dr. Cavazos Code Status: Full code VTE Prophylaxis: Lovenox SQ/wears compression socks at home decision maker: Carmela Terry;sister Admission and Anticipated Discharge Date Admission Date: August 13, 2022 Subjective Pt seen in follow up of weakness, n/v, UTI Currently sitting up in bed, in no acute distress, reports having history of UTIs, and pyelonephritis in the past Urine culture positive for Enterococcus, discussed with pharmacy Patient reports she used penicillin in the past without any issues, then developed hives and did not use it since then Denies fevers chills denies chest pain or shortness of breath Reports history of sleep apnea, and states that she was supposed to have a sleep study done as outpatient yesterday Patient also was orthostatic yesterday when working with PT Today she reports feeling much better Review of Systems Review of Systems: All systems reviewed & are unremarkable except as noted in Subjective Physical Exam Physical Exam: General: obese F (BMI 55), in NAD HEENT: head normocephalic, moist mucus membranes CV: S1/S2, (-) M/G/R, (+) edema Resp: Lungs CTAB GI: Abdomen obese S/NT/ND, Ax4 bowel sounds, (-) CVA tenderness Musculoskeletal: moves extremities Skin: (-) rashes , (-) erythema. Neuro: AAOx3, EOMI, no facial asymmetry, moves extremities Psych: euthymic mood Results & Data Results & Data Vital Signs (Past 12 Hours) Vital Signs Temp Pulse Pulse Resp BP BP Pulse Ox 08/15/22 07:37 36.6 C 75 20 147/82 H 97 08/15/22 03:00 36.4 C L 69 18 138/78 97 08/14/22 21:58 82 08/14/22 22:00 36.7 C 83 20 134/75 97 08/14/22 22:55 38.0 C H 82 18 148/81 H 148/81 H 97 08/14/22 20:56 O2 Del Method O2 Flow Rate 08/15/22 07:37 Nasal Cannula 1 08/15/22 03:00 Nasal Cannula 1 08/14/22 21:58 08/14/22 22:00 Nasal Cannula 1 08/14/22 22:55 Nasal Cannula 1 08/14/22 20:56 Nasal Cannula 1 Laboratory Results 08/15/22 08/15/22 08/15/22 Range/Units 07:34 06:11 06:11 WBC 9.10 (4.8-10.8) K/ul RBC 4.00 L (4.20-5.40) M/uL Hgb 11.4 L (12.0-16.0) g/dl Hct 36.1 L (37.0-47.0) % MCV 90.3 (80.0-100.0) fL MCH 28.5 (25.0-34.0) pg MCHC 31.6 L (32.0-36.0) g/dL RDW Std Deviation 42.4 (36.4-46.3) fL RDW Coeff of Buck 13.0 (11.5-14.5) % Plt Count 244 (130-400) K/uL MPV 10.1 (9.4-12.4) fL Sodium 137 (136-145) mmol/L Potassium 4.5 (3.5-5.1) mmol/L Chloride 104 (98-107) mmol/L Carbon Dioxide 28 (21-32) mmol/L Anion Gap 5 (3-11) BUN 18 (6-23) mg/dl Creatinine 1.03 (0.6-1.2) mg/dl Est Cr Clr Drug Dosing 69.6 ml/min Est GFR ( Amer) 64.2 ml/min Est GFR (Non-Af Amer) 55.4 ml/min BUN/Creatinine Ratio 17.5 (10-20) Glucose 101 H (70-99(Fasting)) mg/dl POC Glucose 102 H (70-99) mg/dl Calcium 8.7 (8.6-10.3) mg/dl Phosphorus 4.2 (2.5-4.9) mg/dl Magnesium 1.9 (1.7-2.4) mg/dl 08/14/22 08/14/22 08/14/22 Range/Units 20:05 17:11 11:29 WBC (4.8-10.8) K/ul RBC (4.20-5.40) M/uL Hgb (12.0-16.0) g/dl Hct (37.0-47.0) % MCV (80.0-100.0) fL MCH (25.0-34.0) pg MCHC (32.0-36.0) g/dL RDW Std Deviation (36.4-46.3) fL RDW Coeff of Buck (11.5-14.5) % Plt Count (130-400) K/uL MPV (9.4-12.4) fL Sodium (136-145) mmol/L Potassium (3.5-5.1) mmol/L Chloride (98-107) mmol/L Carbon Dioxide (21-32) mmol/L Anion Gap (3-11) BUN (6-23) mg/dl Creatinine (0.6-1.2) mg/dl Est Cr Clr Drug Dosing ml/min Est GFR ( Amer) ml/min Est GFR (Non-Af Amer) ml/min BUN/Creatinine Ratio (10-20) Glucose (70-99(Fasting)) mg/dl POC Glucose 127 H 111 H 145 H (70-99) mg/dl Calcium (8.6-10.3) mg/dl Phosphorus (2.5-4.9) mg/dl Magnesium (1.7-2.4) mg/dl 08/14/22 Range/Units 09:09 WBC (4.8-10.8) K/ul RBC (4.20-5.40) M/uL Hgb (12.0-16.0) g/dl Hct (37.0-47.0) % MCV (80.0-100.0) fL MCH (25.0-34.0) pg MCHC (32.0-36.0) g/dL RDW Std Deviation (36.4-46.3) fL RDW Coeff of Buck (11.5-14.5) % Plt Count (130-400) K/uL MPV (9.4-12.4) fL Sodium (136-145) mmol/L Potassium (3.5-5.1) mmol/L Chloride (98-107) mmol/L Carbon Dioxide (21-32) mmol/L Anion Gap (3-11) BUN (6-23) mg/dl Creatinine (0.6-1.2) mg/dl Est Cr Clr Drug Dosing ml/min Est GFR ( Amer) ml/min Est GFR (Non-Af Amer) ml/min BUN/Creatinine Ratio (10-20) Glucose (70-99(Fasting)) mg/dl POC Glucose 122 H (70-99) mg/dl Calcium (8.6-10.3) mg/dl Phosphorus (2.5-4.9) mg/dl Magnesium (1.7-2.4) mg/dl Medications Administered Current Inpatient Medications Acetaminophen (Acetaminophen 325 Mg Tab) 650 mg PO Q4H PRN PRN Reason: Pain or Fever Stop: 09/12/22 17:32 Last Admin: 08/15/22 02:08 Dose: 650 mg Al Hydrox/Mg Hydrox/Simethicone (Aluminum/Magnesium Susp 30 Ml Udc) 15 ml PO Q4H PRN PRN Reason: Dyspepsia Stop: 09/12/22 17:32 Atorvastatin Calcium (Atorvastatin 20 Mg Tab) 20 mg PO QAM [facility] Stop: 09/13/22 08:59 Last Admin: 08/14/22 09:18 Dose: 20 mg Bupropion HCl (Bupropion Sr 100 Mg Tabcr) [facility] [place] Stop: 09/13/22 08:59 Last Admin: 08/14/22 09:17 Dose: 100 mg Bupropion HCl (Bupropion Sr 150 Mg Tabcr) 150 mg PO [facility] Stop: 09/13/22 08:59 Last Admin: 08/14/22 09:18 Dose: 150 mg Cyanocobalamin (Cyanocobalamin (B-12) 500 Mcg Tablet) 1,000 mcg [facility] [place] Stop: 09/13/22 08:59 Last Admin: 08/14/22 09:19 Dose: 1,000 mcg Dextrose (Dextrose 50% 50 Ml Syringe) 25 - 50 ml IV UD PRN; Protocol PRN Reason: Hypoglycemia Protocol Stop: 09/12/22 22:10 Fluoxetine HCl (Fluoxetine Hcl 20 Mg Cap) 60 mg PO [facility] Stop: 09/13/22 08:59 Last Admin: 08/14/22 09:18 Dose: 60 mg Furosemide (Furosemide 40 Mg Tab) 40 [facility] [place] Stop: 09/13/22 08:59 Last Admin: 08/14/22 09:18 Dose: 40 mg Glucagon (Glucagon For Inj 1 Mg Vial) 1 mg SQ UD PRN; Protocol PRN Reason: Hypoglycemia Protocol Stop: 09/12/22 22:10 Glucose (Glucose 10 Tab/Tube) 4 - 8 tab PO UD PRN; Protocol PRN Reason: Hypoglycemia Treatment Stop: 09/12/22 22:10 Glucose (Glucose 40% Gel 15 Gm Tube) 15 - 30 gm PO UD PRN; Protocol PRN Reason: Hypoglycemia Protocol Stop: 09/12/22 22:10 Heparin Sodium (Porcine) (Heparin Sod 5,000 Unit/0.5 Ml Vial) 5,000 units SQ Q12 [facility] Stop: 09/12/22 20:59 Last Admin: 08/14/22 21:14 Dose: 5,000 units Vancomycin HCl 1,000 mg/ (Sodium Chloride) 270 mls @ 200 mls/hr IV Q12H [facility]; Protocol Stop: 08/24/22 22:59 Last Infusion: 08/15/22 00:28 Dose: Infused Insulin Aspart (Insulin Aspart Per Unit Charge) 0 units SC ACHS [facility] Stop: 09/12/22 22:10 Last Admin: 08/14/22 21:17 Dose: 2 units Insulin Glargine (Lantus Per Unit Charge) 30 units SC Q24H [facility] Stop: 09/14/22 10:59 Lactobacillus Acidophilus (Advanced Probiotic 1250 Mg Capsule) 2 cap PO DAILY [facility] Stop: 09/13/22 17:44 Last Admin: 08/14/22 18:38 Dose: 2 cap Levothyroxine Sodium (Levothyroxine Sodium 50 Mcg Tablet) 50 mcg PO DAILYBB [facility] Stop: 09/13/22 06:29 Last Admin: 08/15/22 05:55 Dose: 50 mcg Losartan Potassium (Losartan Potassium 50 Mg Tab) 100 mg PO QAM [facility] Stop: 09/13/22 08:59 Last Admin: 08/14/22 09:18 Dose: 100 mg Magnesium Hydroxide (Magnesium Hydroxide Susp 30 Ml Udc) 30 ml PO Q12H PRN PRN Reason: Constipation Stop: 09/12/22 17:32 Magnesium Oxide (Magnesium Oxide 400 Mg Tab) 400 [facility] [place] Stop: 09/13/22 08:59 Last Admin: 08/14/22 09:19 Dose: 400 mg Miscellaneous (Carbohydrates For Hypoglycemia ) 15 - 30 gm PO UD PRN PRN Reason: Hypoglycemia Protocol Stop: 09/12/22 22:10 Miscellaneous Information (Pharmacy Glycemic Mgmt Consult) 1 each N/A UD PRN PRN Reason: Consult Stop: 09/12/22 22:10 Miscellaneous Information (Vancomycin Consult Active) 1 each N/A UD PRN PRN Reason: Consult Stop: 09/13/22 09:25 Ondansetron HCl (Ondansetron Inj 2 Mg/Ml 2 Ml Vial) 4 mg IV Q6H PRN PRN Reason: Nausea Stop: 09/12/22 17:32 Polyethylene Glycol (Polyethylene (Miralax) 17 Gm Pack) 17 gm PO DAILY PRN PRN Reason: Constipation Stop: 09/12/22 17:32 Potassium Chloride (Potassium Chloride 10 Meq Tabcr) 10 meq PO QAM [facility] Stop: 09/13/22 08:59 Last Admin: 08/14/22 09:21 Dose: Not Given (1) Nausea & vomiting Vomiting type: unspecified Qualified Code(s): R11.2 - Nausea with vomiting, unspecified
[2022-08-15] MEDS: INSULIN ASPART PER UNIT CHARGE SC SCH ×4 (09:21→22:09)
[2022-08-15] MEDS: ADVANCED PROBIOTIC 1250 MG CAPSULE PO SCH (09:22)
[2022-08-15] MEDS: LOSARTAN POTASSIUM 50 MG TAB PO SCH (09:22)
[2022-08-15] MEDS: POTASSIUM CHLORIDE 10 MEQ TABCR PO SCH (09:22)
[2022-08-15] MEDS: HEPARIN SOD 5,000 UNIT/0.5 ML VIAL SQ SCH ×2 (09:22→22:05)
[2022-08-15] MEDS: ATORVASTATIN 20 MG TAB PO SCH (09:23)
[2022-08-15] MEDS: buPROPion SR 100 MG TABCR PO SCH (09:23)
[2022-08-15] MEDS: CYANOCOBALAMIN (B-12) 500 MCG TABLET PO SCH (09:23)
[2022-08-15] MEDS: buPROPion SR 150 MG TABCR PO SCH (09:23)
[2022-08-15] MEDS: MAGNESIUM OXIDE 400 MG TAB PO SCH (09:23)
[2022-08-15] MEDS: FUROSEMIDE 40 MG TAB PO SCH (09:24)
[2022-08-15] MEDS: FLUoxetine HCL 20 MG CAP PO SCH (09:24)
[2022-08-15] MEDS ORDERED: VANCOMYCIN LEVEL ONE (10:30)
[2022-08-15] MEDS: VANCOMYCIN HCL 1,000 MG in SODIUM CHLORIDE 0.9% 250 ML IV SCH (11:22)
--- NOTE | 2022-08-15 11:25 | Pharmacy Report ---
Pharmacy PK ABX Note - Date of Service August 15, 2022 - Assessment and Plan Assessment 67 year old F receiving vancomycin for treatment of E. faecalis UTI in the setting of penicillin allergy (hives). * 08/13/22 urine culture: growing E. faecalis - resistant only to tetracycline * Day # 2 of antimicrobial therapy Plan Vancomycin * Current regimen: 1000 mg IV every 12 hours * Trough level obtained 08/15/22 resulted as 16 mcg/mL. This is predicted to achieve target AUC/PATIENCE of 400-600 mg/L.hr * Predicted AUC at steady state: 499 mg/L.hr * Continue 1000 mg IV every 12 hours * Will repeat level in the next 48-72 hours if therapy is continued and/or change in patient clinical status Patient is a high risk of vancomycin accumulation. When/if ready to transition to oral antibiotics, recommend fosfomycin 3 g PO x 1 dose (cystitis) or cipro 500 mg PO BID (if concerns for pyelo). Pharmacy will continue to follow and will adjust dose/frequency as necessary. Thank you.
[2022-08-15] MEDS: LANTUS PER UNIT CHARGE SC SCH (12:37)
[2022-08-15] MEDS: ONDANSETRON INJ 2 MG/ML 2 ML VIAL IV PRN (23:50)
[2022-08-16] MEDS: ACETAMINOPHEN 325 MG TAB PO PRN (04:57)
[2022-08-16] MEDS: LEVOTHYROXINE SODIUM 50 MCG TABLET PO SCH (04:58)
[2022-08-16 07:56] LABS: Hematocrit (blood only) 34.6 % (37.0-47.0); Hemoglobin 11.4 g/dl (12.0-16.0); Mean Corpuscular Hemoglobin 29.1 pg (25.0-34.0); Mean Corpuscular Hgb Conc 32.9 g/dL (32.0-36.0); Mean Corpuscular Volume 88.3 fL (80.0-100.0); Mean Platelet Volume 10.9 fL (9.4-12.4); Platelet Count 236 K/uL (130-400); RDW Coefficient of Variation 13.1 % (11.5-14.5); RDW Standard Deviation 41.7 fL (36.4-46.3); Red Blood Count 3.92 M/uL (4.20-5.40); White Blood Count 10.27 K/ul (4.8-10.8)
--- NOTE | 2022-08-16 08:05 | Hospitalist Progress Note ---
Date of Service August 16, 2022 Assessment & Plan (1) Nausea & vomiting: (2) Weakness: (3) Diabetes mellitus, type 2: (4) Hypertension: (5) Depression: (6) GERD (gastroesophageal reflux disease): (7) Hyperlipidemia: Plan 67 year old female presents to the ED s/p fall, weakness and nausea/vomiting. Symptoms appear to have mostly resolved. Pt felt too weak to go home and would like to be evaluated for short term placement. UTI Ucultx - Enterococcus faecalis -pt w/ PCN allergy - discussed w/ pharmacy - and started on vancomycin for now -Per patient, history of UTIs and pyelonephritis in the past. Also reports using penicillin in the past, then developed hives, and has not used it since Nausea and Vomiting: Received Zofran x1 in ED; continue PRN Zofran - no vomiting since arrival to ED, eating w/o any issues Consider abdominal CT if symptoms return advance diet as tolerated Weakness: B/L LE edema s/p mechanical fall; fell on right side No dizziness No pain from fall Took Lasix 40 mg x1 for le swelling prior to admission;reassess in AM continuation of Lasix 08/14 - orthostatic on PT evaluation, hold Lasix, compression stockings daily 08/16 Pre-syncope today and hx of dyspnea on exertion Will obtain echo Diabetes Mellitus, Type 2: Insulin dependent; takes 45-50 units of Lantus and SSI with Novolog FSBS ACHS SSI while inpatient current A1C 6.7% HTN: Takes Losartan; continue HLD: Takes Atorvastatin; continue Depression: Takes Wellbutrin and Prozac; continue ADHD: Takes Adderall PRN At one time was diagnosed with idiopathic hypersomnia and was taking Adderall for that CATHERINE -Patient reports history of CATHERINE, and reports that she is supposed to be evaluated as outpatient -obtained nocturnal hypoxia study here - was negative Disposition: PCP: Dr. Cavazos Code Status: Full code VTE Prophylaxis: Lovenox SQ/wears compression socks at home decision maker: Carmela Terry;sister Admission and Anticipated Discharge Date Admission Date: August 13, 2022 Subjective Pt seen in follow up of weakness, n/v, UTI Currently sitting up in bed, in no acute distress, reports having history of UTIs, and pyelonephritis in the past Urine culture positive for Enterococcus, discussed with pharmacy Patient reports she used penicillin in the past without any issues, then developed hives and did not use it since then Denies fevers chills denies chest pain or shortness of breath Overnight, patient had presyncopal episode, when getting to commode. This morning reported nausea. She also tells me that she can only move very slowly at home. Has weakness and dyspnea with exertion. Is supposed to get echocardiogram done by her PCP. Will order now. Patient also was orthostatic here previously when working with PT Review of Systems Review of Systems: All systems reviewed & are unremarkable except as noted in Subjective Physical Exam Physical Exam: General: obese F (BMI 55), in NAD HEENT: head normocephalic, moist mucus membranes CV: S1/S2, (-) M/G/R, (+) edema Resp: Lungs CTAB GI: Abdomen obese S/NT/ND, Ax4 bowel sounds, (-) CVA tenderness Musculoskeletal: moves extremities Skin: (-) rashes , (-) erythema. Neuro: AAOx3, EOMI, no facial asymmetry, moves extremities Psych: euthymic mood Results & Data Results & Data Vital Signs (Past 12 Hours) Vital Signs Temp Pulse Pulse Resp BP BP Pulse Ox 08/16/22 07:44 08/16/22 04:19 36.5 C 76 20 134/82 93 08/16/22 02:19 77 08/16/22 00:51 75 115/57 L 08/15/22 23:51 83 16 178/100 H 95 08/15/22 22:56 36.4 C L 78 19 152/68 H 94 08/15/22 22:19 78 08/15/22 20:24 36.4 C L 75 18 141/79 H 93 Pulse Ox O2 Del Method O2 Del Method 08/16/22 07:44 Room Air 08/16/22 04:19 Room Air 08/16/22 02:19 94 Room Air 08/16/22 00:51 08/15/22 23:51 Room Air 08/15/22 22:56 Room Air 08/15/22 22:19 95 Room Air 08/15/22 20:24 Room Air Laboratory Results 08/16/22 08/16/22 08/16/22 Range/Units 07:27 06:53 06:53 WBC 10.27 (4.8-10.8) K/ul RBC 3.92 L (4.20-5.40) M/uL Hgb 11.4 L (12.0-16.0) g/dl Hct 34.6 L (37.0-47.0) % MCV 88.3 (80.0-100.0) fL MCH 29.1 (25.0-34.0) pg MCHC 32.9 (32.0-36.0) g/dL RDW Std Deviation 41.7 (36.4-46.3) fL RDW Coeff of Buck 13.1 (11.5-14.5) % Plt Count 236 (130-400) K/uL MPV 10.9 (9.4-12.4) fL Sodium Pending Potassium Pending Chloride Pending Carbon Dioxide Pending Anion Gap Pending BUN Pending Creatinine Pending Est Cr Clr Drug Dosing Pending Est GFR ( Amer) Pending Est GFR (Non-Af Amer) Pending BUN/Creatinine Ratio Pending Glucose Pending POC Glucose 119 H (70-99) mg/dl Calcium Pending Phosphorus Pending Magnesium Pending Random Vancomycin (10-20) mcg/ml 08/15/22 08/15/22 08/15/22 Range/Units 20:30 16:37 12:31 WBC (4.8-10.8) K/ul RBC (4.20-5.40) M/uL Hgb (12.0-16.0) g/dl Hct (37.0-47.0) % MCV (80.0-100.0) fL MCH (25.0-34.0) pg MCHC (32.0-36.0) g/dL RDW Std Deviation (36.4-46.3) fL RDW Coeff of Buck (11.5-14.5) % Plt Count (130-400) K/uL MPV (9.4-12.4) fL Sodium Potassium Chloride Carbon Dioxide Anion Gap BUN Creatinine Est Cr Clr Drug Dosing Est GFR ( Amer) Est GFR (Non-Af Amer) BUN/Creatinine Ratio Glucose POC Glucose 175 H 143 H 119 H (70-99) mg/dl Calcium Phosphorus Magnesium Random Vancomycin (10-20) mcg/ml 08/15/22 Range/Units 10:22 WBC (4.8-10.8) K/ul RBC (4.20-5.40) M/uL Hgb (12.0-16.0) g/dl Hct (37.0-47.0) % MCV (80.0-100.0) fL MCH (25.0-34.0) pg MCHC (32.0-36.0) g/dL RDW Std Deviation (36.4-46.3) fL RDW Coeff of Buck (11.5-14.5) % Plt Count (130-400) K/uL MPV (9.4-12.4) fL Sodium Potassium Chloride Carbon Dioxide Anion Gap BUN Creatinine Est Cr Clr Drug Dosing Est GFR ( Amer) Est GFR (Non-Af Amer) BUN/Creatinine Ratio Glucose POC Glucose (70-99) mg/dl Calcium Phosphorus Magnesium Random Vancomycin 16.0 (10-20) mcg/ml Medications Administered Current Inpatient Medications Acetaminophen (Acetaminophen 325 Mg Tab) 650 mg PO Q4H PRN PRN Reason: Pain or Fever Stop: 09/12/22 17:32 Last Admin: 08/16/22 04:57 Dose: 650 mg Al Hydrox/Mg Hydrox/Simethicone (Aluminum/Magnesium Susp 30 Ml Udc) 15 ml PO Q4H PRN PRN Reason: Dyspepsia Stop: 09/12/22 17:32 Atorvastatin Calcium (Atorvastatin 20 Mg Tab) [facility] [place] Stop: 09/13/22 08:59 Last Admin: 08/15/22 09:23 Dose: 20 mg Bupropion HCl (Bupropion Sr 100 Mg Tabcr) 100 [facility] [place] Stop: 09/13/22 08:59 Last Admin: 08/15/22 09:23 Dose: 100 mg Bupropion HCl (Bupropion Sr 150 Mg Tabcr) 150 [facility] [place] Stop: 09/13/22 08:59 Last Admin: 08/15/22 09:23 Dose: 150 mg Cyanocobalamin (Cyanocobalamin (B-12) 500 Mcg Tablet) 1,000 [facility]cg [facility] [place] Stop: 09/13/22 08:59 Last Admin: 08/15/22 09:23 Dose: 1,000 mcg Dextrose (Dextrose 50% 50 Ml Syringe) 25 - 50 ml IV UD PRN; Protocol PRN Reason: Hypoglycemia Protocol Stop: 09/12/22 22:10 Fluoxetine HCl (Fluoxetine Hcl 20 Mg Cap) 60 mg PO QAM [facility] Stop: 09/13/22 08:59 Last Admin: 08/15/22 09:24 Dose: 60 mg Furosemide (Furosemide 40 Mg Tab) 40 mg PO QAM [facility] Stop: 09/13/22 08:59 Last Admin: 08/15/22 09:24 Dose: 40 mg Glucagon (Glucagon For Inj 1 Mg Vial) 1 mg SQ UD PRN; Protocol PRN Reason: Hypoglycemia Protocol Stop: 09/12/22 22:10 Glucose (Glucose 10 Tab/Tube) 4 - 8 tab PO UD PRN; Protocol PRN Reason: Hypoglycemia Treatment Stop: 09/12/22 22:10 Glucose (Glucose 40% Gel 15 Gm Tube) 15 - 30 gm PO UD PRN; Protocol PRN Reason: Hypoglycemia Protocol Stop: 09/12/22 22:10 Heparin Sodium (Porcine) (Heparin Sod 5,000 Unit/0.5 Ml Vial) 5,000 units SQ Q12 [facility] Stop: 09/12/22 20:59 Last Admin: 08/15/22 22:05 Dose: 5,000 units Vancomycin HCl 1,000 mg/ (Sodium Chloride) 270 mls @ 200 mls/hr IV Q12H [facility]; Protocol Stop: 08/24/22 22:59 Last Infusion: 08/16/22 01:42 Dose: Infused Insulin Aspart (Insulin Aspart Per Unit Charge) 0 units SC ACHS [facility] Stop: 09/12/22 22:10 Last Admin: 08/15/22 22:09 Dose: 6 units Insulin Glargine (Lantus Per Unit Charge) 30 units SC Q24H [facility] Stop: 09/14/22 10:59 Last Admin: 08/15/22 12:37 Dose: 30 units Lactobacillus Acidophilus (Advanced Probiotic 1250 Mg Capsule) 2 cap PO DAILY [facility] Stop: 09/13/22 17:44 Last Admin: 08/15/22 09:22 Dose: 2 cap Levothyroxine Sodium (Levothyroxine Sodium 50 Mcg Tablet) [facility] Stop: 09/13/22 06:29 Last Admin: 08/16/22 04:58 Dose: 50 mcg Losartan Potassium (Losartan Potassium 50 Mg Tab) 100 mg PO QAM [facility] Stop: 09/13/22 08:59 Last Admin: 08/15/22 09:22 Dose: 100 mg Magnesium Hydroxide (Magnesium Hydroxide Susp 30 Ml Udc) 30 ml PO Q12H PRN PRN Reason: Constipation Stop: 09/12/22 17:32 Magnesium Oxide (Magnesium Oxide 400 Mg Tab) 400 mg PO QAM [facility] Stop: 09/13/22 08:59 Last Admin: 08/15/22 09:23 Dose: 400 mg Miscellaneous (Carbohydrates For Hypoglycemia ) 15 - 30 gm PO UD PRN PRN Reason: Hypoglycemia Protocol Stop: 09/12/22 22:10 Miscellaneous Information (Pharmacy Glycemic Mgmt Consult) 1 each N/A UD PRN PRN Reason: Consult Stop: 09/12/22 22:10 Miscellaneous Information (Vancomycin Consult Active) 1 each N/A UD PRN PRN Reason: Consult Stop: 09/13/22 09:25 Ondansetron HCl (Ondansetron Inj 2 Mg/Ml 2 Ml Vial) 4 mg IV Q6H PRN PRN Reason: Nausea Stop: 09/12/22 17:32 Last Admin: 08/15/22 23:50 Dose: 4 mg Polyethylene Glycol (Polyethylene (Miralax) 17 Gm Pack) 17 gm PO DAILY PRN PRN Reason: Constipation Stop: 09/12/22 17:32 Potassium Chloride (Potassium Chloride 10 Meq Tabcr) 10 meq PO QAM [facility] Stop: 09/13/22 08:59 Last Admin: 08/15/22 09:22 Dose: 10 meq (1) Nausea & vomiting Vomiting type: unspecified Qualified Code(s): R11.2 - Nausea with vomiting, unspecified
[2022-08-16 08:06] LABS: BUN Creatinine Ratio 20.6 (10-20); Calcium 8.8 mg/dl (8.6-10.3); Creatinine Clr Calc Pharmacy 73.5 ml/min; Est GFR (African American) 69.1 ml/min; Est GFR (Non-African American) 59.6 ml/min; Magnesium 1.8 mg/dl (1.7-2.4); Phosphorus 3.9 mg/dl (2.5-4.9); Potassium 4.7 mmol/L (3.5-5.1)
[2022-08-16] MEDS: INSULIN ASPART PER UNIT CHARGE SC SCH ×4 (09:53→21:29)
[2022-08-16] MEDS: FLUoxetine HCL 20 MG CAP PO SCH (09:56)
[2022-08-16] MEDS: FUROSEMIDE 40 MG TAB PO SCH ×2 (09:57→12:37)
[2022-08-16] MEDS: ATORVASTATIN 20 MG TAB PO SCH (09:57)
[2022-08-16] MEDS: CYANOCOBALAMIN (B-12) 500 MCG TABLET PO SCH (09:57)
[2022-08-16] MEDS: buPROPion SR 100 MG TABCR PO SCH (09:57)
[2022-08-16] MEDS: buPROPion SR 150 MG TABCR PO SCH (09:57)
[2022-08-16] MEDS: HEPARIN SOD 5,000 UNIT/0.5 ML VIAL SQ SCH ×2 (09:57→21:29)
[2022-08-16] MEDS: LOSARTAN POTASSIUM 50 MG TAB PO SCH (09:58)
[2022-08-16] MEDS: MAGNESIUM OXIDE 400 MG TAB PO SCH (09:58)
[2022-08-16] MEDS: POTASSIUM CHLORIDE 10 MEQ TABCR PO SCH (09:58)
[2022-08-16] MEDS: ADVANCED PROBIOTIC 1250 MG CAPSULE PO SCH (09:58)
[2022-08-16] MEDS ORDERED: VANCOMYCIN LEVEL ONE (10:00)
[2022-08-16] MEDS: VANCOMYCIN HCL 1,000 MG in SODIUM CHLORIDE 0.9% 250 ML IV SCH ×3 (11:41→22:39)
--- NOTE | 2022-08-16 12:09 | Pharmacy Report ---
Pharmacy PK ABX Note - Date of Service August 16, 2022 - Assessment and Plan Assessment 67 year old F receiving vancomycin for treatment of E. faecalis UTI in the setting of penicillin allergy (hives). * 08/13/22 urine culture: growing E. faecalis - resistant only to tetracycline * Day # 3 of antimicrobial therapy Plan Vancomycin * Current regimen: 1000 mg IV every 12 hours * Trough level obtained 08/15/22 resulted as 17.7 mcg/mL. This is predicted to achieve target AUC/PATIENCE of 400-600 mg/L.hr * Predicted AUC at steady state: 531 mg/L.hr * Continue 1000 mg IV every 12 hours * Will repeat level in the next 48 hours if therapy is continued and/or change in patient clinical status Patient is a high risk of vancomycin accumulation. When/if ready to transition to oral antibiotics, recommend fosfomycin 3 g PO x 1 dose (cystitis) or cipro 500 mg PO BID (if concerns for pyelo). Macrobid is also an option for cystitis only. Pharmacy will continue to follow and will adjust dose/frequency as necessary. Thank you.
[2022-08-16] MEDS: LANTUS PER UNIT CHARGE SC SCH (12:24)
--- NOTE | 2022-08-16 14:55 | Pharmacy Report ---
Pharmacy Glycemic Short Note 2 - Date of Service August 16, 2022 - Glycemic Short BSG Results (Last 24 hours): 08/15/22 08/15/22 08/16/22 16:37 20:30 06:53 Glucose 127 H POC Glucose 143 H 175 H 08/16/22 08/16/22 07:27 11:10 Glucose POC Glucose 119 H 141 H OUTPATIENT ANTIDIABETIC REGIMEN: * Lantus 45-50 units SQ daily @ 11 * Humalog with meals (takes 3-5 units per 25 grams of CHO consumed) * HbA1C = 6.7% (08/14/22) ASSESSMENT: 08/16/22: * Lisa received 50 units of SQ insulin yesterday (30 units Lantus + 20 units Novolog). BSGs: 102, 119, 143, 175 mg/dL. * Fasting BSG of 119 mg/dL this morning is at goal. Will continue current Lantus dose. * Post prandial BSGs also well controlled. Continue current Novolog parameters. 08/14/22: * Ms Gamboa is a 67 y/o with a PMH of T2DM who presents with a UTI. * BSGs yesterday on day of admission were lower at 101 mg/dL. * Fasting today is 122 mg/dL and lunch was 144 mg/dL (after no coverage for clear liquid breakfast). * This pharmacist had discussion with patient about her glycemic control. She takes her Lantus at 11 AM. Patient takes 45-48 units per day. In a mutual decision, it was decided to give 30 units at 11 am (in addition to the 3 units already given). * CF/CR loosened based upon patient's home regimen. PLAN FOR INPATIENT GLYCEMIC CONTROL: * Basal insulin * Lantus 30 units SQ daily * Bolus insulin * NovoLog per scale ACHS or Q6hrs while NPO * Goal Range: Low 110 mg/dL - High 140 mg/dL * Correction Factor: 20 mg/dL/unit * Nutritional / Prandial insulin per carb ratio of 1 unit per 8 grams CHO consumed
[2022-08-17] MEDS: LEVOTHYROXINE SODIUM 50 MCG TABLET PO SCH (05:09)
[2022-08-17 07:32] LABS: BUN Creatinine Ratio 20.8 (10-20); Creatinine Clr Calc Pharmacy 70.6 ml/min; Est GFR (African American) 65.8 ml/min; Est GFR (Non-African American) 56.8 ml/min; Magnesium 1.8 mg/dl (1.7-2.4); Phosphorus 3.7 mg/dl (2.5-4.9); Potassium 4.3 mmol/L (3.5-5.1)
[2022-08-17] MEDS: MAGNESIUM OXIDE 400 MG TAB PO SCH (09:37)
[2022-08-17] MEDS: ADVANCED PROBIOTIC 1250 MG CAPSULE PO SCH (09:38)
[2022-08-17] MEDS: CYANOCOBALAMIN (B-12) 500 MCG TABLET PO SCH (09:38)
[2022-08-17] MEDS: buPROPion SR 100 MG TABCR PO SCH (09:38)
[2022-08-17] MEDS: ATORVASTATIN 20 MG TAB PO SCH (09:38)
[2022-08-17] MEDS: LOSARTAN POTASSIUM 50 MG TAB PO SCH (09:39)
[2022-08-17] MEDS: FUROSEMIDE 40 MG TAB PO SCH (09:39)
[2022-08-17] MEDS: FLUoxetine HCL 20 MG CAP PO SCH (09:40)
--- NOTE | 2022-08-17 09:46 | Hospitalist Progress Note ---
Date of Service August 17, 2022 Assessment & Plan (1) Nausea & vomiting: (2) Weakness: (3) Diabetes mellitus, type 2: (4) Hypertension: (5) Depression: (6) GERD (gastroesophageal reflux disease): (7) Hyperlipidemia: Plan 67 year old female presents to the ED s/p fall, weakness and nausea/vomiting. Symptoms appear to have mostly resolved. Pt felt too weak to go home and would like to be evaluated for short term placement. UTI Ucultx - Enterococcus faecalis -pt w/ PCN allergy -discussed w/ pharmacy - and started on vancomycin for now -Per patient, history of UTIs and pyelonephritis in the past. Also reports using penicillin in the past, then developed hives, and has not used it since Nausea and Vomiting: Received Zofran x1 in ED; continue PRN Zofran - no vomiting since arrival to ED, eating w/o any issues Consider abdominal CT if symptoms return advance diet as tolerated Weakness: B/L LE edema s/p mechanical fall; fell on right side No dizziness No pain from fall Took Lasix 40 mg x1 for le swelling prior to admission;reassess in AM continuation of Lasix 08/14 - orthostatic on PT evaluation, hold Lasix, compression stockings daily 08/16 Pre-syncope today and hx of dyspnea on exertion Will obtain echo 08/17 pt feeling better overall. Echo pending Diabetes Mellitus, Type 2: Insulin dependent; takes 45-50 units of Lantus and SSI with Novolog FSBS ACHS SSI while inpatient current A1C 6.7% HTN: Takes Losartan; continue HLD: Takes Atorvastatin; continue Depression: Takes Wellbutrin and Prozac; continue ADHD: Takes Adderall PRN At one time was diagnosed with idiopathic hypersomnia and was taking Adderall for that CATHERINE -Patient reports history of CATHERINE, and reports that she is supposed to be evaluated as outpatient -obtained nocturnal hypoxia study here - was negative Disposition: PCP: Dr. Cavazos Code Status: Full code VTE Prophylaxis: Lovenox SQ/wears compression socks at home decision maker: Carmela Terry;sister Admission and Anticipated Discharge Date Admission Date: August 13, 2022 Subjective Pt seen in follow up of weakness, n/v, UTI Currently sitting up in bed, in no acute distress, reports having history of UTIs, and pyelonephritis in the past Urine culture positive for Enterococcus Denies fevers chills denies chest pain or shortness of breath Today feeling better overall, did not have any more presyncopal episodes. Only uses commode at the bedside. Reports urinary urgency has improved No fevers chills, no chest pain shortness of breath, no abdominal pain Review of Systems Review of Systems: All systems reviewed & are unremarkable except as noted in Subjective Physical Exam Physical Exam: General: obese F (BMI 55), in NAD HEENT: head normocephalic, moist mucus membranes CV: S1/S2, (-) M/G/R, minimal LE edema Resp: Lungs CTAB GI: Abdomen obese S/NT/ND, Ax4 bowel sounds, (-) CVA tenderness Musculoskeletal: moves extremities Skin: (-) rashes , (-) erythema. Neuro: AAOx3, EOMI, no facial asymmetry, moves extremities Psych: euthymic mood Results & Data Results & Data Vital Signs (Past 12 Hours) Vital Signs Temp Pulse Pulse Resp BP Pulse Ox O2 Del Method 08/17/22 08:15 36.6 C 65 20 120/64 94 Room Air 08/17/22 04:25 36.4 C L 79 20 132/75 94 Room Air 08/16/22 23:20 68 08/16/22 23:20 Room Air 08/16/22 23:10 36.6 C 64 19 136/75 97 Room Air Laboratory Results 08/17/22 08/17/22 08/17/22 Range/Units 07:36 06:04 00:08 Sodium 137 (136-145) mmol/L Potassium 4.3 (3.5-5.1) mmol/L Chloride 104 (98-107) mmol/L Carbon Dioxide 28 (21-32) mmol/L Anion Gap 5 (3-11) BUN 21 (6-23) mg/dl Creatinine 1.01 (0.6-1.2) mg/dl Est Cr Clr Drug Dosing 70.6 ml/min Est GFR ( Amer) 65.8 ml/min Est GFR (Non-Af Amer) 56.8 ml/min BUN/Creatinine Ratio 20.8 H (10-20) Glucose 105 H (70-99(Fasting)) mg/dl POC Glucose 104 H 137 H (70-99) mg/dl Calcium 9.0 (8.6-10.3) mg/dl Phosphorus 3.7 (2.5-4.9) mg/dl Magnesium 1.8 (1.7-2.4) mg/dl Random Vancomycin (10-20) mcg/ml 08/16/22 08/16/22 08/16/22 Range/Units 20:41 16:31 11:10 Sodium (136-145) mmol/L Potassium (3.5-5.1) mmol/L Chloride (98-107) mmol/L Carbon Dioxide (21-32) mmol/L Anion Gap (3-11) BUN (6-23) mg/dl Creatinine (0.6-1.2) mg/dl Est Cr Clr Drug Dosing ml/min Est GFR ( Amer) ml/min Est GFR (Non-Af Amer) ml/min BUN/Creatinine Ratio (10-20) Glucose (70-99(Fasting)) mg/dl POC Glucose 176 H 125 H 141 H (70-99) mg/dl Calcium (8.6-10.3) mg/dl Phosphorus (2.5-4.9) mg/dl Magnesium (1.7-2.4) mg/dl Random Vancomycin (10-20) mcg/ml 08/16/22 Range/Units 09:49 Sodium (136-145) mmol/L Potassium (3.5-5.1) mmol/L Chloride (98-107) mmol/L Carbon Dioxide (21-32) mmol/L Anion Gap (3-11) BUN (6-23) mg/dl Creatinine (0.6-1.2) mg/dl Est Cr Clr Drug Dosing ml/min Est GFR ( Amer) ml/min Est GFR (Non-Af Amer) ml/min BUN/Creatinine Ratio (10-20) Glucose (70-99(Fasting)) mg/dl POC Glucose (70-99) mg/dl Calcium (8.6-10.3) mg/dl Phosphorus (2.5-4.9) mg/dl Magnesium (1.7-2.4) mg/dl Random Vancomycin 17.7 (10-20) mcg/ml Medications Administered Current Inpatient Medications Acetaminophen (Acetaminophen 325 Mg Tab) 650 mg PO Q4H PRN PRN Reason: Pain or Fever Stop: 09/12/22 17:32 Last Admin: 08/16/22 04:57 Dose: 650 mg Al Hydrox/Mg Hydrox/Simethicone (Aluminum/Magnesium Susp 30 Ml Udc) 15 ml PO Q4H PRN PRN Reason: Dyspepsia Stop: 09/12/22 17:32 Atorvastatin Calcium (Atorvastatin 20 Mg Tab) 20 mg PO QAM [facility] Stop: 09/13/22 08:59 Last Admin: 08/17/22 09:38 Dose: 20 mg Bupropion HCl (Bupropion Sr 100 Mg Tabcr) [facility] Stop: 09/13/22 08:59 Last Admin: 08/17/22 09:38 Dose: 100 mg Bupropion HCl (Bupropion Sr 150 Mg Tabcr) 150 mg PO [facility] Stop: 09/13/22 08:59 Last Admin: 08/16/22 09:57 Dose: 150 mg Cyanocobalamin (Cyanocobalamin (B-12) 500 Mcg Tablet) 1,000 [facility]cg [facility] Stop: 09/13/22 08:59 Last Admin: 08/17/22 09:38 Dose: 1,000 mcg Dextrose (Dextrose 50% 50 Ml Syringe) 25 - 50 ml IV UD PRN; Protocol PRN Reason: Hypoglycemia Protocol Stop: 09/12/22 22:10 Fluoxetine HCl (Fluoxetine Hcl 20 Mg Cap) 60 mg PO [facility] Stop: 09/13/22 08:59 Last Admin: 08/17/22 09:40 Dose: 60 mg Furosemide (Furosemide 40 Mg Tab) 40 [facility] Stop: 09/13/22 08:59 Last Admin: 08/17/22 09:39 Dose: 40 mg Glucagon (Glucagon For Inj 1 Mg Vial) 1 mg SQ UD PRN; Protocol PRN Reason: Hypoglycemia Protocol Stop: 09/12/22 22:10 Glucose (Glucose 10 Tab/Tube) 4 - 8 tab PO UD PRN; Protocol PRN Reason: Hypoglycemia Treatment Stop: 09/12/22 22:10 Glucose (Glucose 40% Gel 15 Gm Tube) 15 - 30 gm PO UD PRN; Protocol PRN Reason: Hypoglycemia Protocol Stop: 09/12/22 22:10 Heparin Sodium (Porcine) (Heparin Sod 5,000 Unit/0.5 Ml Vial) 5,000 units SQ Q12 [facility] Stop: 09/12/22 20:59 Last Admin: 08/16/22 21:29 Dose: 5,000 units Vancomycin HCl 1,000 mg/ (Sodium Chloride) 270 mls @ 200 mls/hr IV Q12H [facility]; Protocol Stop: 08/24/22 22:59 Last Infusion: 08/17/22 00:11 Dose: Infused Insulin Aspart (Insulin Aspart Per Unit Charge) 0 units SC ACHS [facility] Stop: 09/12/22 22:10 Last Admin: 08/16/22 21:29 Dose: 3 units Insulin Glargine (Lantus Per Unit Charge) 30 units SC Q24H [facility] Stop: 09/14/22 10:59 Last Admin: 08/16/22 12:24 Dose: 30 units Lactobacillus Acidophilus (Advanced Probiotic 1250 Mg Capsule) 2 cap PO DAILY [facility] Stop: 09/13/22 17:44 Last Admin: 08/17/22 09:38 Dose: 2 cap Levothyroxine Sodium (Levothyroxine Sodium 50 Mcg Tablet) 50 mcg PO DAILYBB [facility] Stop: 09/13/22 06:29 Last Admin: 08/17/22 05:09 Dose: 50 mcg Losartan Potassium (Losartan Potassium 50 Mg Tab) 100 mg PO QAM [facility] Stop: 09/13/22 08:59 Last Admin: 08/17/22 09:39 Dose: 100 mg Magnesium Hydroxide (Magnesium Hydroxide Susp 30 Ml Udc) 30 ml PO Q12H PRN PRN Reason: Constipation Stop: 09/12/22 17:32 Magnesium Oxide (Magnesium Oxide 400 Mg Tab) 400 mg PO QAM [facility] Stop: 09/13/22 08:59 Last Admin: 08/17/22 09:37 Dose: 400 mg Miscellaneous (Carbohydrates For Hypoglycemia ) 15 - 30 gm PO UD PRN PRN Reason: Hypoglycemia Protocol Stop: 09/12/22 22:10 Miscellaneous Information (Pharmacy Glycemic Mgmt Consult) 1 each N/A UD PRN PRN Reason: Consult Stop: 09/12/22 22:10 Miscellaneous Information (Vancomycin Consult Active) 1 each N/A UD PRN PRN Reason: Consult Stop: 09/13/22 09:25 Ondansetron HCl (Ondansetron Inj 2 Mg/Ml 2 Ml Vial) 4 mg IV Q6H PRN PRN Reason: Nausea Stop: 09/12/22 17:32 Last Admin: 08/15/22 23:50 Dose: 4 mg Polyethylene Glycol (Polyethylene (Miralax) 17 Gm Pack) 17 gm PO DAILY PRN PRN Reason: Constipation Stop: 09/12/22 17:32 Potassium Chloride (Potassium Chloride 10 Meq Tabcr) 10 meq PO QAM [facility] Stop: 09/13/22 08:59 Last Admin: 08/16/22 09:58 Dose: Not Given (1) Nausea & vomiting Vomiting type: unspecified Qualified Code(s): R11.2 - Nausea with vomiting, unspecified
[2022-08-17] MEDS: HEPARIN SOD 5,000 UNIT/0.5 ML VIAL SQ SCH ×2 (09:57→21:14)
[2022-08-17] MEDS: INSULIN ASPART PER UNIT CHARGE SC SCH ×4 (10:02→21:14)
[2022-08-17] MEDS: POTASSIUM CHLORIDE 10 MEQ TABCR PO SCH (10:31)
[2022-08-17] MEDS: buPROPion SR 150 MG TABCR PO SCH (10:31)
[2022-08-17] MEDS: LANTUS PER UNIT CHARGE SC SCH (10:34)
[2022-08-17] MEDS: VANCOMYCIN HCL 1,000 MG in SODIUM CHLORIDE 0.9% 250 ML IV SCH ×2 (12:16→23:23)
[2022-08-17] MEDS: POLYETHYLENE (MIRALAX) 17 GM PACK PO PRN (21:15)
[2022-08-17] MEDS: ACETAMINOPHEN 325 MG TAB PO PRN (23:42)
[2022-08-18] MEDS: LEVOTHYROXINE SODIUM 50 MCG TABLET PO SCH (05:47)
[2022-08-18 07:48] LABS: BUN Creatinine Ratio 26.8 (10-20); Calcium 9.2 mg/dl (8.6-10.3); Creatinine Clr Calc Pharmacy 85.6 ml/min; Est GFR (African American) 84.6 ml/min; Magnesium 1.7 mg/dl (1.7-2.4); Phosphorus 4.1 mg/dl (2.5-4.9); Potassium 4.3 mmol/L (3.5-5.1)
[2022-08-18] MEDS: INSULIN ASPART PER UNIT CHARGE SC SCH ×4 (08:23→20:44)
[2022-08-18] MEDS: LOSARTAN POTASSIUM 50 MG TAB PO SCH (08:24)
[2022-08-18] MEDS: CYANOCOBALAMIN (B-12) 500 MCG TABLET PO SCH (08:24)
[2022-08-18] MEDS: buPROPion SR 150 MG TABCR PO SCH ×2 (08:25→09:49)
[2022-08-18] MEDS: FLUoxetine HCL 20 MG CAP PO SCH (08:25)
[2022-08-18] MEDS: MAGNESIUM OXIDE 400 MG TAB PO SCH (08:25)
[2022-08-18] MEDS: ATORVASTATIN 20 MG TAB PO SCH (08:25)
[2022-08-18] MEDS: buPROPion SR 100 MG TABCR PO SCH (08:25)
[2022-08-18] MEDS: ADVANCED PROBIOTIC 1250 MG CAPSULE PO SCH (08:26)
[2022-08-18] MEDS: FUROSEMIDE 40 MG TAB PO SCH (08:26)
[2022-08-18] MEDS: POTASSIUM CHLORIDE 10 MEQ TABCR PO SCH ×2 (08:26→09:07)
[2022-08-18] MEDS: HEPARIN SOD 5,000 UNIT/0.5 ML VIAL SQ SCH ×2 (08:27→20:45)
[2022-08-18] MEDS ORDERED: MAGNESIUM SULFATE / D5W 1 GM/100 ML BAG IV ONE (08:27)
--- NOTE | 2022-08-18 08:29 | Hospitalist Progress Note ---
Date of Service August 18, 2022 Assessment & Plan (1) Nausea & vomiting: (2) Weakness: (3) Diabetes mellitus, type 2: (4) Hypertension: (5) Depression: (6) GERD (gastroesophageal reflux disease): (7) Hyperlipidemia: Plan 67 year old female presents to the ED s/p fall, weakness and nausea/vomiting. Symptoms appear to have mostly resolved. Pt felt too weak to go home and would like to be evaluated for short term placement. UTI Ucultx - Enterococcus faecalis -pt w/ PCN allergy -discussed w/ pharmacy - and started on vancomycin -Per patient, history of UTIs and pyelonephritis in the past. Also reports using penicillin in the past, then developed hives, and has not used it since Nausea and Vomiting: Received Zofran x1 in ED; continue PRN Zofran - no vomiting since arrival to ED, eating w/o any issues Weakness: B/L LE edema s/p mechanical fall; fell on right side No dizziness No pain from fall Took Lasix 40 mg x1 for le swelling prior to admission;reassess in AM continuation of Lasix 08/14 - orthostatic on PT evaluation, hold Lasix, compression stockings daily 08/16 Pre-syncope today and hx of dyspnea on exertion Will obtain echo 08/17 pt feeling better overall. Echo pending 08/18 Echo LV is normal in size. LV systolic function is normal. EF 60 to 65%. RV systolic function is normal. LA size is normal. RA size is normal. There is mild mitral regurg. Diabetes Mellitus, Type 2: Insulin dependent; takes 45-50 units of Lantus and SSI with Novolog FSBS ACHS SSI while inpatient current A1C 6.7% HTN: Takes Losartan; continue HLD: Takes Atorvastatin; continue Depression: Takes Wellbutrin and Prozac; continue ADHD: Takes Adderall PRN At one time was diagnosed with idiopathic hypersomnia and was taking Adderall for that CATHERINE -Patient reports history of CATHERINE, and reports that she is supposed to be evaluated as outpatient -obtained nocturnal hypoxia study here - was negative - will aracely to follow up further as outpt Disposition: PCP: Dr. Cavazos Code Status: Full code VTE Prophylaxis: Lovenox SQ/wears compression socks at home decision maker: Carmela Terry;sister Admission and Anticipated Discharge Date Admission Date: August 13, 2022 Subjective Pt seen in follow up of weakness, n/v, UTI Currently sitting up in bed, in no acute distress, reports having history of UTIs, and pyelonephritis in the past Urine culture positive for Enterococcus Denies fevers chills denies chest pain or shortness of breath Today feeling better overall, did not have any more presyncopal episodes. Walked w/ walker to the bathroom, feels she can't walk further than that. Reports urinary urgency has improved No fevers chills, no chest pain shortness of breath, no abdominal pain Review of Systems Review of Systems: All systems reviewed & are unremarkable except as noted in Subjective Physical Exam Physical Exam: General: obese F (BMI 55), in NAD HEENT: head normocephalic, moist mucus membranes CV: S1/S2, (-) M/G/R, minimal LE edema Resp: Lungs CTAB GI: Abdomen obese S/NT/ND, Ax4 bowel sounds, (-) CVA tenderness Musculoskeletal: moves extremities Skin: (-) rashes , (-) erythema. Neuro: AAOx3, EOMI, no facial asymmetry, moves extremities Psych: euthymic mood Results & Data Results & Data Vital Signs (Past 12 Hours) Vital Signs Temp Pulse Pulse Resp BP BP Pulse Ox 08/18/22 07:19 36.4 C L 66 16 141/81 H 96 08/18/22 07:14 71 08/18/22 04:17 36.6 C 70 18 123/70 92 08/18/22 00:42 71 08/17/22 23:36 36.4 C L 79 20 153/76 H 99 08/17/22 22:36 O2 Del Method 08/18/22 07:19 Room Air 08/18/22 07:14 08/18/22 04:17 Room Air 08/18/22 00:42 08/17/22 23:36 Room Air 08/17/22 22:36 Room Air Laboratory Results 08/18/22 08/18/22 08/17/22 Range/Units 07:47 07:11 20:00 Sodium 137 (136-145) mmol/L Potassium 4.3 (3.5-5.1) mmol/L Chloride 102 (98-107) mmol/L Carbon Dioxide 31 (21-32) mmol/L Anion Gap 4 (3-11) BUN 22 (6-23) mg/dl Creatinine 0.82 (0.6-1.2) mg/dl Est Cr Clr Drug Dosing 85.6 ml/min Est GFR ( Amer) 84.6 ml/min Est GFR (Non-Af Amer) 73.0 ml/min BUN/Creatinine Ratio 26.8 H (10-20) Glucose 124 H (70-99(Fasting)) mg/dl POC Glucose 118 H 163 H (70-99) mg/dl Calcium 9.2 (8.6-10.3) mg/dl Phosphorus 4.1 (2.5-4.9) mg/dl Magnesium 1.7 (1.7-2.4) mg/dl 08/17/22 08/17/22 Range/Units 16:56 11:24 Sodium (136-145) mmol/L Potassium (3.5-5.1) mmol/L Chloride (98-107) mmol/L Carbon Dioxide (21-32) mmol/L Anion Gap (3-11) BUN (6-23) mg/dl Creatinine (0.6-1.2) mg/dl Est Cr Clr Drug Dosing ml/min Est GFR ( Amer) ml/min Est GFR (Non-Af Amer) ml/min BUN/Creatinine Ratio (10-20) Glucose (70-99(Fasting)) mg/dl POC Glucose 135 H 133 H (70-99) mg/dl Calcium (8.6-10.3) mg/dl Phosphorus (2.5-4.9) mg/dl Magnesium (1.7-2.4) mg/dl Medications Administered Current Inpatient Medications Acetaminophen (Acetaminophen 325 Mg Tab) 650 mg PO Q4H PRN PRN Reason: Pain or Fever Stop: 09/12/22 17:32 Last Admin: 08/17/22 23:42 Dose: 650 mg Al Hydrox/Mg Hydrox/Simethicone (Aluminum/Magnesium Susp 30 Ml Udc) 15 ml PO Q4H PRN PRN Reason: Dyspepsia Stop: 09/12/22 17:32 Atorvastatin Calcium ([facility]atin 20 Mg Tab) [facility] Stop: 09/13/22 08:59 Last Admin: 08/18/22 08:25 Dose: 20 mg Bupropion HCl (Bupropion Sr 100 Mg Tabcr) 100 mg PO [facility] Stop: 09/13/22 08:59 Last Admin: 08/18/22 08:25 Dose: 100 mg Bupropion HCl (Bupropion Sr 150 Mg Tabcr) 150 mg PO QAM [facility] Stop: 09/13/22 08:59 Last Admin: 08/18/22 08:25 Dose: 150 mg Cyanocobalamin (Cyanocobalamin (B-12) 500 Mcg Tablet) 1,000 [facility]cg [facility] Stop: 09/13/22 08:59 Last Admin: 08/18/22 08:24 Dose: 1,000 mcg Dextrose (Dextrose 50% 50 Ml Syringe) 25 - 50 ml IV UD PRN; Protocol PRN Reason: Hypoglycemia Protocol Stop: 09/12/22 22:10 Fluoxetine HCl (Fluoxetine Hcl 20 Mg Cap) 60 [facility] Stop: 09/13/22 08:59 Last Admin: 08/18/22 08:25 Dose: 60 mg Furosemide (Furosemide 40 Mg Tab) 40 mg PO [facility] Stop: 09/13/22 08:59 Last Admin: 08/18/22 08:26 Dose: 40 mg Glucagon (Glucagon For Inj 1 Mg Vial) 1 mg SQ UD PRN; Protocol PRN Reason: Hypoglycemia Protocol Stop: 09/12/22 22:10 Glucose (Glucose 10 Tab/Tube) 4 - 8 tab PO UD PRN; Protocol PRN Reason: Hypoglycemia Treatment Stop: 09/12/22 22:10 Glucose (Glucose 40% Gel 15 Gm Tube) 15 - 30 gm PO UD PRN; Protocol PRN Reason: Hypoglycemia Protocol Stop: 09/12/22 22:10 Heparin Sodium (Porcine) (Heparin Sod 5,000 Unit/0.5 Ml Vial) 5,000 units SQ Q12 [facility] Stop: 09/12/22 20:59 Last Admin: 08/18/22 08:27 Dose: 5,000 units Vancomycin HCl 1,000 mg/ (Sodium Chloride) 270 mls @ 200 mls/hr IV Q12H [facility]; Protocol Stop: 08/24/22 22:59 Last Infusion: 08/18/22 00:48 Dose: Infused Magnesium Sulfate/Dextrose (Magnesium Sulfate / D5w) 1 gm in 100 mls @ 50 mls/hr IV ONE ONE Stop: 08/18/22 10:26 Insulin Aspart (Insulin Aspart Per Unit Charge) 0 units SC [facility] Stop: 09/12/22 22:10 Last Admin: 08/18/22 08:23 Dose: 6 units Insulin Glargine (Lantus Per Unit Charge) 30 units SC Q24H [facility] Stop: 09/14/22 10:59 Last Admin: 08/17/22 10:34 Dose: 30 units Lactobacillus Acidophilus (Advanced Probiotic 1250 Mg Capsule) 2 cap PO DAILY [facility] Stop: 09/13/22 17:44 Last Admin: 08/18/22 08:26 Dose: 2 cap Levothyroxine Sodium (Levothyroxine Sodium 50 Mcg Tablet) 50 mcg PO DAILYBB [facility] Stop: 09/13/22 06:29 Last Admin: 08/18/22 05:47 Dose: 50 mcg Losartan Potassium (Losartan Potassium 50 Mg Tab) 100 mg PO QAM [facility] Stop: 09/13/22 08:59 Last Admin: 08/18/22 08:24 Dose: 100 mg Magnesium Hydroxide (Magnesium Hydroxide Susp 30 Ml Udc) 30 ml PO Q12H PRN PRN Reason: Constipation Stop: 09/12/22 17:32 Magnesium Oxide (Magnesium Oxide 400 Mg Tab) [facility] Stop: 09/13/22 08:59 Last Admin: 08/18/22 08:25 Dose: 400 mg Miscellaneous (Carbohydrates For Hypoglycemia ) 15 - 30 gm PO UD PRN PRN Reason: Hypoglycemia Protocol Stop: 09/12/22 22:10 Miscellaneous Information (Pharmacy Glycemic Mgmt Consult) 1 each N/A UD PRN PRN Reason: Consult Stop: 09/12/22 22:10 Miscellaneous Information (Vancomycin Consult Active) 1 each N/A UD PRN PRN Reason: Consult Stop: 09/13/22 09:25 Ondansetron HCl (Ondansetron Inj 2 Mg/Ml 2 Ml Vial) 4 mg IV Q6H PRN PRN Reason: Nausea Stop: 09/12/22 17:32 Last Admin: 08/15/22 23:50 Dose: 4 mg Polyethylene Glycol (Polyethylene (Miralax) 17 Gm Pack) 17 gm PO DAILY PRN PRN Reason: Constipation Stop: 09/12/22 17:32 Last Admin: 08/17/22 21:15 Dose: 17 gm Potassium Chloride (Potassium Chloride 10 Meq Tabcr) 10 meq PO QAM [facility] Stop: 09/13/22 08:59 Last Admin: 08/18/22 08:26 Dose: 10 meq (1) Nausea & vomiting Vomiting type: unspecified Qualified Code(s): R11.2 - Nausea with vomiting, unspecified
[2022-08-18] MEDS: POLYETHYLENE (MIRALAX) 17 GM PACK PO PRN (09:14)
--- NOTE | 2022-08-18 10:41 | Pharmacy Report ---
Pharmacy PK ABX Note - Date of Service August 18, 2022 - Assessment and Plan Assessment 67 year old F receiving vancomycin for treatment of E. faecalis UTI in the setting of penicillin allergy (hives). * 08/13/22 urine culture: growing E. faecalis - resistant only to tetracycline * Day # 4 of antimicrobial therapy Vancomycin * Current regimen: 1000 mg IV every 12 hours * Random level obtained 08/18/22 resulted as 20.5 mcg/mL. This is predicted to achieve target AUC/PATIENCE of 400-600 mg/L.hr * Predicted AUC at steady state: 470 mg/L.hr * Accumulation does not seem to be occurring despite elevated BMI Plan * Continue 1000 mg IV every 12 hours * No repeat levels necessary unless renal function/clinical status changes or therapy is extended beyond 7 days Pharmacy will continue to follow and will adjust dose/frequency as necessary. Thank you.
[2022-08-18] MEDS: LANTUS PER UNIT CHARGE SC SCH (10:58)
[2022-08-18] MEDS: VANCOMYCIN HCL 1,000 MG in SODIUM CHLORIDE 0.9% 250 ML IV SCH ×2 (11:06→22:20)
[2022-08-18] MEDS: ACETAMINOPHEN 325 MG TAB PO PRN (23:53)
[2022-08-19] MEDS: LEVOTHYROXINE SODIUM 50 MCG TABLET PO SCH (05:33)
[2022-08-19 07:06] LABS: BUN Creatinine Ratio 25.8 (10-20); Calcium 9.2 mg/dl (8.6-10.3); Creatinine Clr Calc Pharmacy 73.6 ml/min; Est GFR (African American) 69.1 ml/min; Est GFR (Non-African American) 59.6 ml/min; Potassium 4.5 mmol/L (3.5-5.1)
[2022-08-19] MEDS: CYANOCOBALAMIN (B-12) 500 MCG TABLET PO SCH (08:18)
[2022-08-19] MEDS: buPROPion SR 100 MG TABCR PO SCH (08:18)
[2022-08-19] MEDS: buPROPion SR 150 MG TABCR PO SCH (08:18)
[2022-08-19] MEDS: ADVANCED PROBIOTIC 1250 MG CAPSULE PO SCH (08:19)
[2022-08-19] MEDS: ATORVASTATIN 20 MG TAB PO SCH (08:19)
[2022-08-19] MEDS: MAGNESIUM OXIDE 400 MG TAB PO SCH (08:20)
[2022-08-19] MEDS: POTASSIUM CHLORIDE 10 MEQ TABCR PO SCH (08:20)
[2022-08-19] MEDS: FUROSEMIDE 40 MG TAB PO SCH (08:20)
[2022-08-19] MEDS: FLUoxetine HCL 20 MG CAP PO SCH (08:20)
[2022-08-19] MEDS: LOSARTAN POTASSIUM 50 MG TAB PO SCH (08:21)
[2022-08-19] MEDS: HEPARIN SOD 5,000 UNIT/0.5 ML VIAL SQ SCH ×2 (08:21→22:01)
[2022-08-19] MEDS: INSULIN ASPART PER UNIT CHARGE SC SCH ×4 (08:24→22:02)
--- NOTE | 2022-08-19 10:14 | Hospitalist Progress Note ---
Date of Service August 19, 2022 Assessment & Plan (1) Nausea & vomiting: (2) Weakness: (3) Diabetes mellitus, type 2: (4) Hypertension: (5) Depression: (6) GERD (gastroesophageal reflux disease): (7) Hyperlipidemia: Plan 67 year old female presents to the ED s/p fall, weakness and nausea/vomiting. Symptoms appear to have mostly resolved. Pt felt too weak to go home and would like to be evaluated for short term placement. UTI Ucultx - Enterococcus faecalis -pt w/ PCN allergy -discussed w/ pharmacy - and started on vancomycin -Per patient, history of UTIs and pyelonephritis in the past. Also reports using penicillin in the past, then developed hives, and has not used it since Nausea and Vomiting: Received Zofran x1 in ED; continue PRN Zofran - no vomiting since arrival to ED, eating w/o any issues Weakness: B/L LE edema s/p mechanical fall; fell on right side No dizziness No pain from fall Took Lasix 40 mg x1 for le swelling prior to admission;reassess in AM continuation of Lasix 08/14 - orthostatic on PT evaluation, hold Lasix, compression stockings daily 08/16 Pre-syncope today and hx of dyspnea on exertion Will obtain echo 08/17 pt feeling better overall. Echo pending 08/18 Echo LV is normal in size. LV systolic function is normal. EF 60 to 65%. RV systolic function is normal. LA size is normal. RA size is normal. There is mild mitral regurg. 08/19 Feeling better overall. Using walker to the bathroom. Diabetes Mellitus, Type 2: Insulin dependent; takes 45-50 units of Lantus and SSI with Novolog FSBS ACHS SSI while inpatient current A1C 6.7% HTN: Takes Losartan; continue HLD: Takes Atorvastatin; continue Depression: Takes Wellbutrin and Prozac; continue ADHD: Takes Adderall PRN At one time was diagnosed with idiopathic hypersomnia and was taking Adderall for that CATHERINE -Patient reports history of CATHERINE, and reports that she is supposed to be evaluated as outpatient -obtained nocturnal hypoxia study here - was negative - will need to follow up further as outpt Disposition: PCP: Dr. Cavazos Code Status: Full code VTE Prophylaxis: Lovenox SQ/wears compression socks at home decision maker: Carmela Terry;sister Admission and Anticipated Discharge Date Admission Date: August 13, 2022 Subjective Pt seen in follow up of weakness, n/v, UTI Currently sitting up in bed, in no acute distress, reports having history of UTIs, and pyelonephritis in the past Urine culture positive for Enterococcus Denies fevers chills denies chest pain or shortness of breath Today feeling better overall, did not have any more presyncopal episodes. [place] dizzy only once today for short amount of time. Walked w/ walker to the bathroom, feels she can't walk further than that. Reports urinary urgency has improved No fevers chills, no chest pain shortness of breath, no abdominal pain Review of Systems Review of Systems: All systems reviewed & are unremarkable except as noted in Subjective Physical Exam Physical Exam: General: obese F (BMI 55), in NAD HEENT: head normocephalic, moist mucus membranes CV: S1/S2, (-) M/G/R, minimal LE edema Resp: Lungs CTAB GI: Abdomen obese S/NT/ND, Ax4 bowel sounds, (-) CVA tenderness Musculoskeletal: moves extremities Skin: (-) rashes , (-) erythema. Neuro: AAOx3, EOMI, no facial asymmetry, moves extremities Psych: euthymic mood Results & Data Results & Data Vital Signs (Past 12 Hours) Vital Signs Temp Pulse Pulse Resp BP BP Pulse Ox 08/19/22 08:30 36.5 C 75 18 153/72 H 96 08/19/22 07:00 75 08/19/22 04:13 36.5 C 77 20 145/84 H 99 08/18/22 23:52 36.5 C 87 20 171/84 H 97 08/18/22 23:07 78 08/18/22 23:07 O2 Del Method 08/19/22 08:30 Room Air 08/19/22 07:00 08/19/22 04:13 Room Air 08/18/22 23:52 Room Air 08/18/22 23:07 08/18/22 23:07 Room Air Laboratory Results 08/19/22 08/19/22 08/19/22 Range/Units 07:55 06:02 05:37 Sodium 138 (136-145) mmol/L Potassium 4.5 (3.5-5.1) mmol/L Chloride 102 (98-107) mmol/L Carbon Dioxide 30 (21-32) mmol/L Anion Gap 6 (3-11) BUN 25 H (6-23) mg/dl Creatinine 0.97 (0.6-1.2) mg/dl Est Cr Clr Drug Dosing 73.6 ml/min Est GFR ( Amer) 69.1 ml/min Est GFR (Non-Af Amer) 59.6 ml/min BUN/Creatinine Ratio 25.8 H (10-20) Glucose 117 H (70-99(Fasting)) mg/dl POC Glucose 118 H 127 H (70-99) mg/dl Calcium 9.2 (8.6-10.3) mg/dl 08/18/22 08/18/22 08/18/22 Range/Units 20:20 16:37 14:14 Sodium (136-145) mmol/L Potassium (3.5-5.1) mmol/L Chloride (98-107) mmol/L Carbon Dioxide (21-32) mmol/L Anion Gap (3-11) BUN (6-23) mg/dl Creatinine (0.6-1.2) mg/dl Est Cr Clr Drug Dosing ml/min Est GFR ( Amer) ml/min Est GFR (Non-Af Amer) ml/min BUN/Creatinine Ratio (-20) Glucose (70-99(Fasting)) mg/dl POC Glucose 113 H 97 109 H (70-99) mg/dl Calcium (8.6-10.3) mg/dl 08/18/22 Range/Units 11:06 Sodium (136-145) mmol/L Potassium (3.5-5.1) mmol/L Chloride (98-107) mmol/L Carbon Dioxide (21-32) mmol/L Anion Gap (3-11) BUN (6-23) mg/dl Creatinine (0.6-1.2) mg/dl Est Cr Clr Drug Dosing ml/min Est GFR ( Amer) ml/min Est GFR (Non-Af Amer) ml/min BUN/Creatinine Ratio (10-20) Glucose (70-99(Fasting)) mg/dl POC Glucose 224 H (70-99) mg/dl Calcium (8.6-10.3) mg/dl Medications Administered Current Inpatient Medications Acetaminophen (Acetaminophen 325 Mg Tab) 650 mg PO Q4H PRN PRN Reason: Pain or Fever Stop: 09/12/22 17:32 Last Admin: 08/18/22 23:53 Dose: 650 mg Al Hydrox/Mg Hydrox/Simethicone (Aluminum/Magnesium Susp 30 Ml Udc) 15 ml PO Q4H PRN PRN Reason: Dyspepsia Stop: 09/12/22 17:32 Atorvastatin Calcium ([facility]atin 20 Mg Tab) [facility] [place] Stop: 09/13/22 08:59 Last Admin: 08/19/22 08:19 Dose: 20 mg Bupropion HCl (Bupropion Sr 100 Mg Tabcr) [facility] [place] Stop: 09/13/22 08:59 Last Admin: 08/19/22 08:18 Dose: 100 mg Bupropion HCl (Bupropion Sr 150 Mg Tabcr) 150 mg PO [facility] Stop: 09/13/22 08:59 Last Admin: 08/19/22 08:18 Dose: 150 mg Cyanocobalamin (Cyanocobalamin (B-12) 500 Mcg Tablet) 1,000 mcg PO [facility] Stop: 09/13/22 08:59 Last Admin: 08/19/22 08:18 Dose: 1,000 mcg Dextrose (Dextrose 50% 50 Ml Syringe) 25 - 50 ml IV UD PRN; Protocol PRN Reason: Hypoglycemia Protocol Stop: 09/12/22 22:10 Fluoxetine HCl (Fluoxetine Hcl 20 Mg Cap) 60 mg PO [facility] Stop: 09/13/22 08:59 Last Admin: 08/19/22 08:20 Dose: 60 mg Furosemide (Furosemide 40 Mg Tab) 40 mg PO [facility] Stop: 09/13/22 08:59 Last Admin: 08/19/22 08:20 Dose: 40 mg Glucagon (Glucagon For Inj 1 Mg Vial) 1 mg SQ UD PRN; Protocol PRN Reason: Hypoglycemia Protocol Stop: 09/12/22 22:10 Glucose (Glucose 10 Tab/Tube) 4 - 8 tab PO UD PRN; Protocol PRN Reason: Hypoglycemia Treatment Stop: 09/12/22 22:10 Glucose (Glucose 40% Gel 15 Gm Tube) 15 - 30 gm PO UD PRN; Protocol PRN Reason: Hypoglycemia Protocol Stop: 09/12/22 22:10 Heparin Sodium (Porcine) (Heparin Sod 5,000 Unit/0.5 Ml Vial) 5,000 units SQ Q12 [facility] Stop: 09/12/22 20:59 Last Admin: 08/19/22 08:21 Dose: 5,000 units Vancomycin HCl 1,000 mg/ (Sodium Chloride) 270 mls @ 200 mls/hr IV Q12H [facility]; Protocol Stop: 08/24/22 22:59 Last Infusion: 08/18/22 23:53 Dose: Infused Insulin Aspart (Insulin Aspart Per Unit Charge) 0 units SC ACHS [facility] Stop: 09/12/22 22:10 Last Admin: 08/19/22 08:24 Dose: 6 units Insulin Glargine (Lantus Per Unit Charge) 30 units SC Q24H [facility] Stop: 09/14/22 10:59 Last Admin: 08/18/22 10:58 Dose: 30 units Lactobacillus Acidophilus (Advanced Probiotic 1250 Mg Capsule) 2 cap PO DAILY [facility] Stop: 09/13/22 17:44 Last Admin: 08/19/22 08:19 Dose: 2 cap Levothyroxine Sodium (Levothyroxine Sodium 50 Mcg Tablet) 50 mcg PO DAILYBB [facility] Stop: 09/13/22 06:29 Last Admin: 08/19/22 05:33 Dose: 50 mcg Losartan Potassium (Losartan Potassium 50 Mg Tab) 100 mg PO QAM [facility] Stop: 09/13/22 08:59 Last Admin: 08/19/22 08:21 Dose: 100 mg Magnesium Hydroxide (Magnesium Hydroxide Susp 30 Ml Udc) 30 ml PO Q12H PRN PRN Reason: Constipation Stop: 09/12/22 17:32 Magnesium Oxide (Magnesium Oxide 400 Mg Tab) 400 mg PO QAM [facility] Stop: 09/13/22 08:59 Last Admin: 08/19/22 08:20 Dose: 400 mg Miscellaneous (Carbohydrates For Hypoglycemia ) 15 - 30 gm PO UD PRN PRN Reason: Hypoglycemia Protocol Stop: 09/12/22 22:10 Miscellaneous Information (Pharmacy Glycemic Mgmt Consult) 1 each N/A UD PRN PRN Reason: Consult Stop: 09/12/22 22:10 Miscellaneous Information (Vancomycin Consult Active) 1 each N/A UD PRN PRN Reason: Consult Stop: 09/13/22 09:25 Ondansetron HCl (Ondansetron Inj 2 Mg/Ml 2 Ml Vial) 4 mg IV Q6H PRN PRN Reason: Nausea Stop: 09/12/22 17:32 Last Admin: 08/15/22 23:50 Dose: 4 mg Polyethylene Glycol (Polyethylene (Miralax) 17 Gm Pack) 17 gm PO DAILY PRN PRN Reason: Constipation Stop: 09/12/22 17:32 Last Admin: 08/18/22 09:14 Dose: 17 gm Potassium Chloride (Potassium Chloride 10 Meq Tabcr) 10 meq PO QAM [facility] Stop: 09/13/22 08:59 Last Admin: 08/19/22 08:20 Dose: Not Given (1) Nausea & vomiting Vomiting type: unspecified Qualified Code(s): R11.2 - Nausea with vomiting, unspecified
[2022-08-19] MEDS: VANCOMYCIN HCL 1,000 MG in SODIUM CHLORIDE 0.9% 250 ML IV SCH ×2 (10:45→23:49)
[2022-08-19] MEDS: LANTUS PER UNIT CHARGE SC SCH (10:48)
[2022-08-19] MEDS ORDERED: CALCIUM CARBONATE 500 MG CHEWABLE TAB PO PRN (18:14)
[2022-08-19] MEDS: FAMOTIDINE 20 MG TAB PO SCH (22:01)
[2022-08-20] MEDS: LEVOTHYROXINE SODIUM 50 MCG TABLET PO SCH (06:14)
--- NOTE | 2022-08-20 08:35 | Pharmacy Report ---
Pharmacy Glycemic Short Note 2 - Date of Service August 20, 2022 - Glycemic Short BSG Results (Last 24 hours): 08/19/22 08/19/22 08/19/22 11:56 16:33 20:34 POC Glucose 171 H 137 H 197 H 08/20/22 07:39 POC Glucose 161 H OUTPATIENT ANTIDIABETIC REGIMEN: * Lantus 45-50 units SQ daily @ 11 * Humalog with meals (takes 3-5 units per 25 grams of CHO consumed) * HbA1C = 6.7% (08/14/22) ASSESSMENT: 08/20/22: * BSGs reasonably well-controlled over past several days * Averaging ~50 units insulin/day * Fasting BSGs trending up - may increase slightly today (~10%) * Will slightly tighten carb ratio today * Continues on vancomycin 08/16/22: * Lisa received 50 units of SQ insulin yesterday (30 units Lantus + 20 units Novolog). BSGs: 102, 119, 143, 175 mg/dL. * Fasting BSG of 119 mg/dL this morning is at goal. Will continue current Lantus dose. * Post prandial BSGs also well controlled. Continue current Novolog parameters. 08/14/22: * Ms Gamboa is a 67 y/o with a PMH of T2DM who presents with a UTI. * BSGs yesterday on day of admission were lower at 101 mg/dL. * Fasting today is 122 mg/dL and lunch was 144 mg/dL (after no coverage for clear liquid breakfast). * This pharmacist had discussion with patient about her glycemic control. She takes her Lantus at 11 AM. Patient takes 45-48 units per day. In a mutual decision, it was decided to give 30 units at 11 am (in addition to the 3 units already given). * CF/CR loosened based upon patient's home regimen. PLAN FOR INPATIENT GLYCEMIC CONTROL: * Basal insulin - increase (10%) * Lantus 33 units SQ daily * Bolus insulin - tighten * NovoLog per scale ACHS or Q6hrs while NPO * Goal Range: Low 110 mg/dL - High 140 mg/dL * Correction Factor: 20 mg/dL/unit * Nutritional / Prandial insulin per carb ratio of 1 unit per 7 grams CHO consumed
[2022-08-20] MEDS: INSULIN ASPART PER UNIT CHARGE SC SCH ×4 (08:53→22:17)
[2022-08-20] MEDS: MAGNESIUM OXIDE 400 MG TAB PO SCH (10:09)
[2022-08-20] MEDS: FAMOTIDINE 20 MG TAB PO SCH ×2 (10:09→21:59)
[2022-08-20] MEDS: ADVANCED PROBIOTIC 1250 MG CAPSULE PO SCH (10:10)
[2022-08-20] MEDS: POTASSIUM CHLORIDE 10 MEQ TABCR PO SCH (10:10)
[2022-08-20] MEDS: CYANOCOBALAMIN (B-12) 500 MCG TABLET PO SCH (10:11)
[2022-08-20] MEDS: LOSARTAN POTASSIUM 50 MG TAB PO SCH (10:11)
[2022-08-20] MEDS: buPROPion SR 150 MG TABCR PO SCH (10:11)
[2022-08-20] MEDS: FUROSEMIDE 40 MG TAB PO SCH (10:11)
[2022-08-20] MEDS: buPROPion SR 100 MG TABCR PO SCH (10:11)
[2022-08-20] MEDS: ATORVASTATIN 20 MG TAB PO SCH (10:12)
[2022-08-20] MEDS: FLUoxetine HCL 20 MG CAP PO SCH (10:12)
[2022-08-20] MEDS: HEPARIN SOD 5,000 UNIT/0.5 ML VIAL SQ SCH ×2 (10:12→21:59)
[2022-08-20] MEDS: VANCOMYCIN HCL 1,000 MG in SODIUM CHLORIDE 0.9% 250 ML IV SCH ×2 (10:59→23:04)
[2022-08-20] MEDS: LANTUS PER UNIT CHARGE SC SCH (12:42)
--- NOTE | 2022-08-20 18:27 | Hospitalist Progress Note ---
Date of Service August 20, 2022 Assessment & Plan (1) Nausea & vomiting: (2) Weakness: (3) Diabetes mellitus, type 2: (4) Hypertension: (5) Depression: (6) GERD (gastroesophageal reflux disease): (7) Hyperlipidemia: Plan 67 year old female presents to the ED s/p fall, weakness and nausea/vomiting. Symptoms appear to have mostly resolved. Pt felt too weak to go home and would like to be evaluated for short term placement. UTI Ucultx - Enterococcus faecalis -pt w/ PCN allergy -discussed w/ pharmacy - and started on vancomycin - abx treatment finished -Per patient, history of UTIs and pyelonephritis in the past. Also reports using penicillin in the past, then developed hives, and has not used it since Nausea and Vomiting: Received Zofran x1 in ED; continue PRN Zofran - no vomiting since arrival to ED, eating w/o any issues Weakness: B/L LE edema s/p mechanical fall; fell on right side No dizziness No pain from fall Took Lasix 40 mg x1 for le swelling prior to admission;reassess in AM continuation of Lasix 08/14 - orthostatic on PT evaluation, hold Lasix, compression stockings daily 08/16 Pre-syncope today and hx of dyspnea on exertion Will obtain echo 08/17 pt feeling better overall. Echo pending 08/18 Echo LV is normal in size. LV systolic function is normal. EF 60 to 65%. RV systolic function is normal. LA size is normal. RA size is normal. There is mild mitral regurg. 08/19 Feeling better overall. Using walker to the bathroom. Diabetes Mellitus, Type 2: Insulin dependent; takes 45-50 units of Lantus and SSI with Novolog FSBS ACHS SSI while inpatient current A1C 6.7% HTN: Takes Losartan; continue HLD: Takes Atorvastatin; continue Depression: Takes Wellbutrin and Prozac; continue ADHD: Takes Adderall PRN At one time was diagnosed with idiopathic hypersomnia and was taking Adderall for that CATHERINE -Patient reports history of CATHERINE, and reports that she is supposed to be evaluated as outpatient -obtained nocturnal hypoxia study here - was negative - will need to follow up further as outpt Disposition: PCP: Dr. Cavazos Code Status: Full code VTE Prophylaxis: Lovenox SQ/wears compression socks at home decision maker: Carmela Terry;sister Admission and Anticipated Discharge Date Admission Date: August 13, 2022 Subjective Pt seen in follow up of weakness, n/v, UTI Denies fevers chills denies chest pain or shortness of breath Today feeling much better overall Review of Systems Review of Systems: All systems reviewed & are unremarkable except as noted in Subjective Physical Exam Physical Exam: General: obese F (BMI 55), in NAD HEENT: head normocephalic, moist mucus membranes CV: S1/S2, (-) M/G/R, minimal LE edema Resp: Lungs CTAB GI: Abdomen obese S/NT/ND, Ax4 bowel sounds, (-) CVA tenderness Musculoskeletal: moves extremities Skin: (-) rashes , (-) erythema. Neuro: AAOx3, EOMI, no facial asymmetry, moves extremities Psych: euthymic mood Results & Data Results & Data Vital Signs (Past 12 Hours) Vital Signs Temp Pulse Pulse Resp BP Pulse Ox O2 Del Method 08/20/22 16:56 36.8 C 20 137/73 97 Room Air 08/20/22 14:16 69 08/20/22 11:39 36.3 C L 73 18 111/70 94 Room Air 08/20/22 11:05 Room Air 08/20/22 07:30 36.3 C L 73 16 128/73 94 Room Air Laboratory Results 08/20/22 08/20/22 08/20/22 Range/Units 16:57 11:43 07:39 POC Glucose 112 H 176 H 161 H (70-99) mg/dl 08/19/22 Range/Units 20:34 POC Glucose 197 H (70-99) mg/dl Medications Administered Current Inpatient Medications Acetaminophen (Acetaminophen 325 Mg Tab) 650 mg PO Q4H PRN PRN Reason: Pain or Fever Stop: 09/12/22 17:32 Last Admin: 08/18/22 23:53 Dose: 650 mg Al Hydrox/Mg Hydrox/Simethicone (Aluminum/Magnesium Susp 30 Ml Udc) 15 ml PO Q4H PRN PRN Reason: Dyspepsia Stop: 09/12/22 17:32 Atorvastatin Calcium (Atorvastatin 20 Mg Tab) 20 mg PO QAM [facility] Stop: 09/13/22 08:59 Last Admin: 08/20/22 10:12 Dose: 20 mg Bupropion HCl (Bupropion Sr 100 Mg Tabcr) 100 mg PO QAM [facility] Stop: 09/13/22 08:59 Last Admin: 08/20/22 10:11 Dose: 100 mg Bupropion HCl (Bupropion Sr 150 Mg Tabcr) 150 mg PO QAM [facility] Stop: 09/13/22 08:59 Last Admin: 08/20/22 10:11 Dose: 150 mg Calcium Carbonate (Calcium Carbonate 500 Mg Chewable Tab) 500 mg PO Q8H PRN PRN Reason: Indigestion Stop: 09/18/22 18:13 Cyanocobalamin (Cyanocobalamin (B-12) 500 Mcg Tablet) 1,000 mcg PO QAM [facility] Stop: 09/13/22 08:59 Last Admin: 08/20/22 10:11 Dose: 1,000 mcg Dextrose (Dextrose 50% 50 Ml Syringe) 25 - 50 ml IV UD PRN; Protocol PRN Reason: Hypoglycemia Protocol Stop: 09/12/22 22:10 Famotidine (Famotidine 20 Mg Tab) 20 mg PO BID [facility] Stop: 09/18/22 20:59 Last Admin: 08/20/22 10:09 Dose: 20 mg Fluoxetine HCl (Flu[facility]etine Hcl 20 Mg Cap) [facility] Stop: 09/13/22 08:59 Last Admin: 08/20/22 10:12 Dose: 60 mg Furosemide (Furosemide 40 Mg Tab) [facility] Stop: 09/13/22 08:59 Last Admin: 08/20/22 10:11 Dose: 40 mg Glucagon (Glucagon For Inj 1 Mg Vial) 1 mg SQ UD PRN; Protocol PRN Reason: Hypoglycemia Protocol Stop: 09/12/22 22:10 Glucose (Glucose 10 Tab/Tube) 4 - 8 tab PO UD PRN; Protocol PRN Reason: Hypoglycemia Treatment Stop: 09/12/22 22:10 Glucose (Glucose 40% Gel 15 Gm Tube) 15 - 30 gm PO UD PRN; Protocol PRN Reason: Hypoglycemia Protocol Stop: 09/12/22 22:10 Heparin Sodium (Porcine) (Heparin Sod 5,000 Unit/0.5 Ml Vial) 5,000 units SQ Q12 [facility] Stop: 09/12/22 20:59 Last Admin: 08/20/22 10:12 Dose: 5,000 units Vancomycin HCl 1,000 mg/ (Sodium Chloride) 270 mls @ 200 mls/hr IV Q12H [facility]; Protocol Stop: 08/21/22 00:31 Last Infusion: 08/20/22 12:41 Dose: Infused Insulin Aspart (Insulin Aspart Per Unit Charge) 0 units SC ACHS [facility] Stop: 09/12/22 22:10 Last Admin: 08/20/22 17:33 Dose: 5 units Insulin Glargine (Lantus Per Unit Charge) 33 units SC Q24H [facility] Stop: 09/14/22 10:59 Last Admin: 08/20/22 12:42 Dose: 33 units Lactobacillus Acidophilus (Advanced Probiotic 1250 Mg Capsule) 2 cap PO DAILY [facility] Stop: 09/13/22 17:44 Last Admin: 08/20/22 10:10 Dose: 2 cap Levothyroxine Sodium (Levothyroxine Sodium 50 Mcg Tablet) 50 mcg PO DAILYBB [facility] Stop: 09/13/22 06:29 Last Admin: 08/20/22 06:14 Dose: 50 mcg Losartan Potassium (Losartan Potassium 50 Mg Tab) 100 mg PO QAM [facility] Stop: 09/13/22 08:59 Last Admin: 08/20/22 10:11 Dose: 100 mg Magnesium Hydroxide (Magnesium Hydroxide Susp 30 Ml Udc) 30 ml PO Q12H PRN PRN Reason: Constipation Stop: 09/12/22 17:32 Magnesium Oxide (Magnesium Oxide 400 Mg Tab) [facility] Stop: 09/13/22 08:59 Last Admin: 08/20/22 10:09 Dose: 400 mg Miscellaneous (Carbohydrates For Hypoglycemia ) 15 - 30 gm PO UD PRN PRN Reason: Hypoglycemia Protocol Stop: 09/12/22 22:10 Miscellaneous Information (Pharmacy Glycemic Mgmt Consult) 1 each N/A UD PRN PRN Reason: Consult Stop: 09/12/22 22:10 Miscellaneous Information (Vancomycin Consult Active) 1 each N/A UD PRN PRN Reason: Consult Stop: 08/21/22 00:31 Ondansetron HCl (Ondansetron Inj 2 Mg/Ml 2 Ml Vial) 4 mg IV Q6H PRN PRN Reason: Nausea Stop: 09/12/22 17:32 Last Admin: 08/15/22 23:50 Dose: 4 mg Polyethylene Glycol (Polyethylene (Miralax) 17 Gm Pack) 17 gm PO DAILY PRN PRN Reason: Constipation Stop: 09/12/22 17:32 Last Admin: 08/18/22 09:14 Dose: 17 gm Potassium Chloride (Potassium Chloride 10 Meq Tabcr) 10 meq PO QAM [facility] Stop: 09/13/22 08:59 Last Admin: 08/20/22 10:10 Dose: Not Given (1) Nausea & vomiting Vomiting type: unspecified Qualified Code(s): R11.2 - Nausea with vomiting, unspecified
[2022-08-21] MEDS: LEVOTHYROXINE SODIUM 50 MCG TABLET PO SCH (05:42)
[2022-08-21] MEDS: FLUoxetine HCL 20 MG CAP PO SCH (09:02)
[2022-08-21] MEDS: MAGNESIUM OXIDE 400 MG TAB PO SCH (09:02)
[2022-08-21] MEDS: buPROPion SR 100 MG TABCR PO SCH (09:02)
[2022-08-21] MEDS: CYANOCOBALAMIN (B-12) 500 MCG TABLET PO SCH (09:02)
[2022-08-21] MEDS: buPROPion SR 150 MG TABCR PO SCH (09:03)
[2022-08-21] MEDS: LOSARTAN POTASSIUM 50 MG TAB PO SCH (09:03)
[2022-08-21] MEDS: ADVANCED PROBIOTIC 1250 MG CAPSULE PO SCH (09:03)
[2022-08-21] MEDS: ATORVASTATIN 20 MG TAB PO SCH (09:04)
[2022-08-21] MEDS: FAMOTIDINE 20 MG TAB PO SCH ×2 (09:04→19:38)
[2022-08-21] MEDS: FUROSEMIDE 40 MG TAB PO SCH (09:04)
[2022-08-21] MEDS: HEPARIN SOD 5,000 UNIT/0.5 ML VIAL SQ SCH ×2 (09:05→19:38)
[2022-08-21] MEDS: INSULIN ASPART PER UNIT CHARGE SC SCH ×4 (09:09→21:19)
[2022-08-21] MEDS: POTASSIUM CHLORIDE 10 MEQ TABCR PO SCH (09:15)
[2022-08-21] MEDS: LANTUS PER UNIT CHARGE SC SCH (13:02)
[2022-08-21] MEDS: ONDANSETRON INJ 2 MG/ML 2 ML VIAL IV PRN (13:03)
--- NOTE | 2022-08-21 17:47 | Hospitalist Progress Note ---
Date of Service August 21, 2022 Assessment & Plan (1) Nausea & vomiting: (2) Weakness: (3) Diabetes mellitus, type 2: (4) Hypertension: (5) Depression: (6) GERD (gastroesophageal reflux disease): (7) Hyperlipidemia: Plan 67 year old female presents to the ED s/p fall, weakness and nausea/vomiting. Symptoms appear to have mostly resolved. Pt felt too weak to go home and would like to be evaluated for short term placement. UTI due to Enterococcus faecalis -Antibiotics course completed with 7 days of vancomycin Nausea and Vomiting: Resolved. Weakness: s/p mechanical fall; fell on right side No dizziness No pain from fall Took Lasix 40 mg x1 for le swelling prior to admission;reassess in AM continuation of Lasix 08/14 - orthostatic on PT evaluation, hold Lasix, compression stockings daily 08/16 Pre-syncope today and hx of dyspnea on exertion 08/17 pt feeling better overall. Echo pending 08/18 Echo: LV is normal in size. LV systolic function is normal. EF 60 to 65%. RV systolic function is normal. LA size is normal. RA size is normal. There is mild mitral regurg. 08/19 Feeling better overall. Using walker to the bathroom. 08/20-- continues to improve and remains stable Diabetes Mellitus, Type 2: Insulin dependent; takes 45-50 units of Lantus and SSI with Novolog FSBS ACHS SSI while inpatient current A1C 6.7% HTN: Takes Losartan; continue HLD: Takes Atorvastatin; continue Depression: Takes Wellbutrin and Prozac; continue ADHD: Takes Adderall PRN At one time was diagnosed with idiopathic hypersomnia and was taking Adderall for that CATHERINE -Patient reports history of CATHERINE, and reports that she is supposed to be evaluated as outpatient -obtained nocturnal hypoxia study here - was negative - will need to follow up further as outpt Disposition: Medically stable for discharge. Awaiting response from [facility] for discharge DVT ppx- Sc heparin Admission and Anticipated Discharge Date Admission Date: August 13, 2022 Subjective Patient was seen and examined at bedside. She feels better and ready to be discharged. Waiting for [facility] reply regarding bed. Requesting for some cough medications and Pepcid at discharge. No fever, chills, chest pain or shortness of breath, nausea or vomiting. Weakness is improved. Review of Systems Review of Systems: All systems reviewed & are unremarkable except as noted in Subjective Physical Exam Physical Exam: General: Morbidly obese, sitting at bedside, not in distress, on room air HEENT: EOMI, KEENAN, MMM Chest: Clear breath sounds bilaterally, no wheezes or crackles CVS: Regular rate and rhythm, normal heart sounds, no murmur Abdomen: Soft, non tender, not distended, normal bowel sounds Neuro: Awake, alert, oriented, conversing well, non focal Extremities: No cyanosis, clubbing. Trace edema Results & Data Results & Data Vital Signs (Past 12 Hours) Vital Signs Temp Pulse Pulse Resp BP Pulse Ox O2 Del Method 08/21/22 15:32 76 08/21/22 12:15 36.6 C 77 18 109/60 95 Room Air 08/21/22 08:00 Room Air 08/21/22 08:34 36.5 C 76 18 130/70 94 Room Air 08/21/22 07:29 76 Medications Administered Current Inpatient Medications Acetaminophen (Acetaminophen 325 Mg Tab) 650 mg PO Q4H PRN PRN Reason: Pain or Fever Stop: 09/12/22 17:32 Last Admin: 08/18/22 23:53 Dose: 650 mg Al Hydrox/Mg Hydrox/Simethicone (Aluminum/Magnesium Susp 30 Ml Udc) 15 ml PO Q4H PRN PRN Reason: Dyspepsia Stop: 09/12/22 17:32 Atorvastatin Calcium (Atorvastatin 20 Mg Tab) [facility] [place] Stop: 09/13/22 08:59 Last Admin: 08/21/22 09:04 Dose: 20 mg Bupropion HCl (Bupropion Sr 100 Mg Tabcr) 100 [facility] [place] Stop: 09/13/22 08:59 Last Admin: 08/21/22 09:02 Dose: 100 mg Bupropion HCl (Bupropion Sr 150 Mg Tabcr) 150 [facility] [place] Stop: 09/13/22 08:59 Last Admin: 08/21/22 09:03 Dose: 150 mg Calcium Carbonate (Calcium Carbonate 500 Mg Chewable Tab) 500 mg PO Q8H PRN PRN Reason: Indigestion Stop: 09/18/22 18:13 Cyanocobalamin (Cyanocobalamin (B-12) 500 Mcg Tablet) 1,000 mcg [facility] [place] Stop: 09/13/22 08:59 Last Admin: 08/21/22 09:02 Dose: 1,000 mcg Dextrose (Dextrose 50% 50 Ml Syringe) 25 - 50 ml IV UD PRN; Protocol PRN Reason: Hypoglycemia Protocol Stop: 09/12/22 22:10 Famotidine (Famotidine 20 Mg Tab) 20 mg PO BID AMI Stop: 09/18/22 20:59 Last Admin: 08/21/22 09:04 Dose: 20 mg Fluoxetine HCl (Fluoxetine Hcl 20 Mg Cap) 60 mg PO QAM AMI Stop: 09/13/22 08:59 Last Admin: 08/21/22 09:02 Dose: 60 mg Furosemide (Furosemide 40 Mg Tab) 40 mg PO QAM AMI Stop: 09/13/22 08:59 Last Admin: 08/21/22 09:04 Dose: 40 mg Glucagon (Glucagon For Inj 1 Mg Vial) 1 mg SQ UD PRN; Protocol PRN Reason: Hypoglycemia Protocol Stop: 09/12/22 22:10 Glucose (Glucose 10 Tab/Tube) 4 - 8 tab PO UD PRN; Protocol PRN Reason: Hypoglycemia Treatment Stop: 09/12/22 22:10 Glucose (Glucose 40% Gel 15 Gm Tube) 15 - 30 gm PO UD PRN; Protocol PRN Reason: Hypoglycemia Protocol Stop: 09/12/22 22:10 Heparin Sodium (Porcine) (Heparin Sod 5,000 Unit/0.5 Ml Vial) 5,000 units SQ Q12 AMI Stop: 09/12/22 20:59 Last Admin: 08/21/22 09:05 Dose: 5,000 units Insulin Aspart (Insulin Aspart Per Unit Charge) 0 units SC ACHS AMI Stop: 09/12/22 22:10 Last Admin: 08/21/22 12:57 Dose: Not Given Insulin Glargine (Lantus Per Unit Charge) 33 units SC Q24H AMI Stop: 09/14/22 10:59 Last Admin: 08/21/22 13:02 Dose: 33 units Lactobacillus Acidophilus (Advanced Probiotic 1250 Mg Capsule) 2 cap PO DAILY AMI Stop: 09/13/22 17:44 Last Admin: 08/21/22 09:03 Dose: 2 cap Levothyroxine Sodium (Levothyroxine Sodium 50 Mcg Tablet) 50 mcg PO DAILYBB AMI Stop: 09/13/22 06:29 Last Admin: 08/21/22 05:42 Dose: 50 mcg Losartan Potassium (Losartan Potassium 50 Mg Tab) 100 [facility] [place] Stop: 09/13/22 08:59 Last Admin: 08/21/22 09:03 Dose: 100 mg Magnesium Hydroxide (Magnesium Hydroxide Susp 30 Ml Udc) 30 ml PO Q12H PRN PRN Reason: Constipation Stop: 09/12/22 17:32 Magnesium Oxide (Magnesium Oxide 400 Mg Tab) 400 mg [facility] [place] Stop: 09/13/22 08:59 Last Admin: 08/21/22 09:02 Dose: 400 mg Miscellaneous (Carbohydrates For Hypoglycemia ) 15 - 30 gm PO UD PRN PRN Reason: Hypoglycemia Protocol Stop: 09/12/22 22:10 Miscellaneous Information (Pharmacy Glycemic Mgmt Consult) 1 each N/A UD PRN PRN Reason: Consult Stop: 09/12/22 22:10 Ondansetron HCl (Ondansetron Inj 2 Mg/Ml 2 Ml Vial) 4 mg IV Q6H PRN PRN Reason: Nausea Stop: 09/12/22 17:32 Last Admin: 08/21/22 13:03 Dose: 4 mg Polyethylene Glycol (Polyethylene (Miralax) 17 Gm Pack) 17 gm PO DAILY PRN PRN Reason: Constipation Stop: 09/12/22 17:32 Last Admin: 08/18/22 09:14 Dose: 17 gm Potassium Chloride (Potassium Chloride 10 Meq Tabcr) 10 meq PO [facility] Stop: 09/13/22 08:59 Last Admin: 08/21/22 09:15 Dose: Not Given (1) Nausea & vomiting Vomiting type: unspecified Qualified Code(s): R11.2 - Nausea with vomiting, unspecified
[2022-08-21] MEDS ORDERED: guaiFENesin/DEXTROM SYRUP 100MG/10MG 5ML UDC PO PRN (17:51)
[2022-08-21] MEDS: POLYETHYLENE (MIRALAX) 17 GM PACK PO PRN (19:48)
[2022-08-22] MEDS: LEVOTHYROXINE SODIUM 50 MCG TABLET PO SCH (05:39)
[2022-08-22] MEDS: FAMOTIDINE 20 MG TAB PO SCH (08:36)
[2022-08-22] MEDS: LOSARTAN POTASSIUM 50 MG TAB PO SCH (08:36)
[2022-08-22] MEDS: INSULIN ASPART PER UNIT CHARGE SC SCH ×3 (08:36→17:28)
[2022-08-22] MEDS: FLUoxetine HCL 20 MG CAP PO SCH (08:37)
[2022-08-22] MEDS: ATORVASTATIN 20 MG TAB PO SCH (08:37)
[2022-08-22] MEDS: MAGNESIUM OXIDE 400 MG TAB PO SCH (08:37)
[2022-08-22] MEDS: CYANOCOBALAMIN (B-12) 500 MCG TABLET PO SCH (08:37)
[2022-08-22] MEDS: ADVANCED PROBIOTIC 1250 MG CAPSULE PO SCH (08:37)
[2022-08-22] MEDS: POTASSIUM CHLORIDE 10 MEQ TABCR PO SCH (08:37)
[2022-08-22] MEDS: FUROSEMIDE 40 MG TAB PO SCH (08:37)
[2022-08-22] MEDS: buPROPion SR 100 MG TABCR PO SCH (08:37)
[2022-08-22] MEDS: buPROPion SR 150 MG TABCR PO SCH (08:37)
[2022-08-22] MEDS: HEPARIN SOD 5,000 UNIT/0.5 ML VIAL SQ SCH (08:38)
[2022-08-22] MEDS: LANTUS PER UNIT CHARGE SC SCH (12:11)
--- NOTE | 2022-08-22 17:13 | Discharge Summary ---
Date of Service August 22, 2022 Admission HPI Per Admitting Provider Ms. Gamboa presented to the [facility] with nausea and vomiting and having ambulatory dysfunction with some dizziness. Patient reports having a mechanical fall in her living room today and heading to her chair. She did not hit head nor did she have a LOC. She reports increasing weakness over the past few days. Patient denies headache, shortness of breath, chest pain, palpitations, abdominal pain, urinary changes, appetite changes. She does report having increased bilateral lower extremity swelling for which she did take Lasix. She denies hitting her head or LOC after her fall. CXR shows cardiomegaly and pulmonary vascular congestion. Pt reports having increased swelling in her B/L LE. Pt is not requiring supplemental oxygen. The only medications she has taken today was Lasix and Ceftin (she stepped on a p iece of glass last week). She did not take her anti-hypertensive medications today. No leukocytosis or anemia noted on her labs. Will obtain urine culture based on UA results. Troponin negative. Patient does state that she feels her weakness leads to her not being able to care for herself at home. She reports that her home is like a 'hoarding' house. She reports that she has been hiring folks to help her with this. May need to consider short-term placement pending PT and OT evals. 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 Patient sitting upright in her hospital bed in no apparent distress. She does not appear toxic and is hemodynamically stable. Pt able to follow commands appropriately. Patient will be admitted for further evaluation and management. Please see A/P for further details. Admission Exam Per Admitting Provider Neuro: AAOx4, PERRLA, no aphagia, memory changes, CNII-XII grossly intact HEENT: head normocephalic, moist mucus membranes CV: S1/S2, (-) M/G/R, (-) edema, cap refill < 3 seconds Resp: Lungs CTA in all coronel. On RA GI: Abdomen large S/NT/ND, Ax4 bowel sounds, (-) CVA tenderness Musculoskeletal: 5/5 B/L UE strength, 5/5 B/L LE strength. No gait disturbance Skin: (-) rashes , (-) erythema. Psych: euthymic mood Principal Diagnosis N/V, Enterococcus UTI, Debility/weakness Discharge Exam General: Morbidly obese, sitting at bedside, not in distress, on room air HEENT: EOMI, KEENAN, MMM Chest: Clear breath sounds bilaterally, no wheezes or crackles CVS: Regular rate and rhythm, normal heart sounds, no murmur Abdomen: Soft, non tender, not distended, normal bowel sounds Neuro: Awake, alert, oriented, conversing well, non focal Extremities: No cyanosis, clubbing. Trace edema Discharge Data Allergies Allergy/AdvReac Type Severity Reaction Status Date / Time penicillin G Allergy Intermediate HIVES Verified 08/13/22 18:29 codeine AdvReac Intermediate VOMITING Verified 08/13/22 18:29 hydrocodone AdvReac Intermediate Vomiting Verified 08/13/22 18:29 Consultations 08/13/22 17:31 ED Decision to Admit Stat Ordered Studies Laboratory Results WBC 10.27 K/ul (4.8-10.8) 08/16/22 06:53 RBC 3.92 M/uL (4.20-5.40) L 08/16/22 06:53 Hgb 11.4 g/dl (12.0-16.0) L 08/16/22 06:53 Hct 34.6 % (37.0-47.0) L 08/16/22 06:53 MCV 88.3 fL (80.0-100.0) 08/16/22 06:53 MCH 29.1 pg (25.0-34.0) 08/16/22 06:53 MCHC 32.9 g/dL (32.0-36.0) 08/16/22 06:53 RDW Std Deviation 41.7 fL (36.4-46.3) 08/16/22 06:53 RDW Coeff of Buck 13.1 % (11.5-14.5) 08/16/22 06:53 Plt Count 236 K/uL (130-400) 08/16/22 06:53 MPV 10.9 fL (9.4-12.4) 08/16/22 06:53 Immature Gran % (Auto) 0.4 % 08/13/22 15:32 Neut % (Auto) 77.3 % 08/13/22 15:32 Lymph % (Auto) 13.3 % 08/13/22 15:32 [place] % (Auto) 6.9 % 08/13/22 15:32 Eos % (Auto) 1.7 % 08/13/22 15:32 Baso % (Auto) 0.4 % 08/13/22 15:32 Neut # (Auto) 7.36 K/uL (1.40-6.50) H 08/13/22 15:32 Lymph # (Auto) 1.27 K/uL (1.2-3.4) 08/13/22 15:32 [place] # (Auto) 0.66 K/uL (0.11-0.59) H 08/13/22 15:32 Eos # (Auto) 0.16 K/uL (0-0.50) 08/13/22 15:32 Baso # (Auto) 0.04 K/uL (0-0.2) 08/13/22 15:32 Immature Gran # (Auto) 0.04 K/uL (0.01-0.20) 08/13/22 15:32 Sodium 138 mmol/L (136-145) 08/19/22 06:02 Potassium 4.5 mmol/L (3.5-5.1) 08/19/22 06:02 Chloride 102 mmol/L (98-107) 08/19/22 06:02 Carbon Dioxide 30 mmol/L (21-32) 08/19/22 06:02 Anion Gap 6 (3-11) 08/19/22 06:02 BUN 25 mg/dl (6-23) H 08/19/22 06:02 Creatinine 0.97 mg/dl (0.6-1.2) 08/19/22 06:02 Est Cr Clr Drug Dosing 73.6 ml/min 08/19/22 06:02 Est GFR ( Amer) 69.1 ml/min 08/19/22 06:02 Est GFR (Non-Af Amer) 59.6 ml/min 08/19/22 06:02 BUN/Creatinine Ratio 25.8 (10-20) H 08/19/22 06:02 Glucose 117 mg/dl (70-99(Fasting)) H 08/19/22 06:02 POC Glucose 119 mg/dl (70-99) H 08/22/22 16:33 Estimat Average Glucose 146 mg/dl 08/14/22 06:17 Hemoglobin A1c 6.7 % (4.5-5.6) H 08/14/22 06:17 Calcium 9.2 mg/dl (8.6-10.3) 08/19/22 06:02 Phosphorus 4.1 mg/dl (2.5-4.9) 08/18/22 07:11 Magnesium 1.7 mg/dl (1.7-2.4) 08/18/22 07:11 Total Bilirubin 0.7 mg/dl (0.2-1.0) 08/14/22 06:17 AST 11 U/L (13-39) L 08/14/22 06:17 ALT 10 U/L (7-52) 08/14/22 06:17 Alkaline Phosphatase 53 U/L (34-104) 08/14/22 06:17 Total Creatine Kinase 66 U/L (26-192) 08/13/22 15:32 Troponin I High Sens 5.7 pg/ml (0-14) 08/13/22 15:32 Total Protein 5.7 gm/dl (6.0-8.3) L 08/14/22 06:17 Albumin 3.2 gm/dl (3.4-5.0) L 08/14/22 06:17 Globulin 2.5 gm/dl (2.5-4.0) 08/14/22 06:17 Albumin/Globulin Ratio 1.3 (0.9-2) 08/14/22 06:17 TSH 4.361 uIu/ml (0.300-4.500) 08/13/22 15:32 Urine Color Yellow 08/13/22 16:10 Urine Appearance Cloudy (Clear) A 08/13/22 16:10 Urine pH 8.0 (4.5-7.5) H 08/13/22 16:10 Ur Specific [place] 1.013 (1.000-1.030) 08/13/22 16:10 Urine Protein 2+ (Negative) H 08/13/22 16:10 Urine Glucose (UA) Negative (Negative) 08/13/22 16:10 Urine Ketones Negative (Negative) 08/13/22 16:10 Urine Blood Negative (Negative) 08/13/22 16:10 Urine Nitrite Negative (Negative) 08/13/22 16:10 Urine Bilirubin Negative (Negative) 08/13/22 16:10 Urine Urobilinogen Negative (Negative) 08/13/22 16:10 Ur Leukocyte Esterase Negative (Negative) 08/13/22 16:10 Urine WBC (Auto) 1-5 /hpf (0-5) 08/13/22 16:10 Urine RBC (Auto) 5-10 /hpf (0-4) H 08/13/22 16:10 U Hyaline Cast (Auto) 1-5 /lpf (0-5) 08/13/22 16:10 U Epithel Cells (Auto) >30 /lpf (0-5) H 08/13/22 16:10 Urine Bacteria (Auto) 2+ (Negative) H 08/13/22 16:10 Random Vancomycin 20.5 mcg/ml (10-20) H 08/18/22 07:11 SARS-CoV-2, RNA, NAAT NEGATIVE (NEGATIVE) 08/13/22 15:30 Impressions Chest X-Ray 08/13/22 15:27 XR chest 1V portable CLINICAL HISTORY: Leg swelling, nausea. COMPARISON STUDY: No previous studies for comparison. FINDINGS: Lung volumes are normal. There is no pneumothorax or pleural effusion. No consolidation is present. There is mild cardiomegaly. Pulmonary vascular congestion is noted without overt pulmonary edema. IMPRESSION: Mild cardiomegaly. Pulmonary vascular congestion without overt pul monary edema. ACT 112: Negative or not required by law. Electronically signed by: Ronald Jeff M.D. 08/13/2022 3:45 PM Hospital Course (1) Nausea & vomiting: (2) Weakness: (3) Diabetes mellitus, type 2: (4) Hypertension: (5) Depression: (6) GERD (gastroesophageal reflux disease): (7) Hyperlipidemia: Plan 67 year old female presents to the ED s/p fall, weakness and nausea/vomiting and treated for Enterococcus UTI with 7 days of vancomycin. She initially felt weak and was planned for rehab but she improved and was declined for rehab. She was cleared by physical therapy for discharge home with home services. She is comfortable and stable for discharge home. UTI due to Enterococcus faecalis-Antibiotics course completed with 7 days of vancomycin Nausea and Vomiting: Resolved. Weakness: s/p mechanical fall; fell on right side No dizziness No pain from fall Took Lasix 40 mg x1 for le swelling prior to admission;reassess in AM continuation of Lasix 08/14 - orthostatic on PT evaluation, hold Lasix, compression stockings daily 08/16 Pre-syncope today and hx of dyspnea on exertion 08/17 pt feeling better overall. Echo pending 08/18 Echo: LV is normal in size. LV systolic function is normal. EF 60 to 65%. RV systolic function is normal. LA size is normal. RA size is normal. There is mild mitral regurg. 08/19 Feeling better overall. Using walker to the bathroom. - continues to improve and remains stable 08/22- Declined by rehab. Cleared by PT OT for home with health services Diabetes Mellitus, Type 2: current A1C 6.7%; continue home antidiabetics HTN: Takes Losartan; continue HLD: Takes Atorvastatin; continue Depression: Takes Wellbutrin and Prozac; continue ADHD: Takes Adderall PRN At one time was diagnosed with idiopathic hypersomnia and was taking Adderall for that CATHERINE -Patient reports history of CATHERINE, and reports that she is supposed to be evaluated as outpatient -obtained nocturnal hypoxia study here - was negative - will need to follow up further as outpt Total Time Total Time Spent Total Time Spent (In Minutes): 45 Discharge Plan Discharge Items Patient Disposition: Home - Home Health Services Reason For Visit: NAUSEA AND VOMITING Discharge Diagnosis: N/V, Enterococcus UTI, Debility/weakness Activity: Resume your previous activity Non-emergency contact: Primary Care Provider Call non-emergency contact if: you have any medication questions, your symptoms worsen and you have a fever Follow-up/Referrals: Aviva Rossi DO [Primary Care Provider] - Diet: Carb Consistent or DM2, Heart Healthy and Low Sodium (2gm) Addtl Attending Provider Instructions: Continue your medications as prescribed Follow up with your family doctor in a week Pending Studies at Discharge: No Stand-Alone Forms: My [employer], Smoking Cessation Medications and DC Order Prescriptions: New dextromethorphan-guaifenesin 10-100 mg/5 mL Syrup 5 ml PO Q6H PRN (Reason: cough) 10 Days Qty: 237 0RF Continued furosemide 40 mg tablet 40 mg PO QAM levothyroxine 50 mcg tablet 50 mcg PO QAM insulin glargine [Lantus Solostar U-100 Insulin] 100 unit/mL (3 mL) insulin pen 50 unit SUBCUT DAILY bupropion HCl 150 mg Tablet Sustained-Release 12 Hr 150 mg PO QAM Rx Instructions: Take 150mg with 100mg tablet to equal 250mg by mouth once in the morning potassium chloride 10 mEq Capsule, Extended Release 10 meq PO QAM atorvastatin 20 mg Tablet 20 mg PO QAM cyanocobalamin (vitamin B-12) 1,000 mcg Tablet 1,000 mcg PO QAM bupropion HCl 100 mg Tablet Sustained-Release 12 Hr 100 mg PO QAM Rx Instructions: Take 100mg with 150mg tablet to equal 250mg by mouth once in the morning losartan 100 mg Tablet 100 mg PO QAM fluoxetine 60 mg Tablet 60 mg PO QAM magnesium oxide 400 mg magnesium Capsule 400 mg PO QAM albuterol sulfate 90 mcg/actuation Hfa Aerosol Inhaler 1 inh INHALATION QID PRN (Reason: SHORT OF BREATH) Discontinued sulfamethoxazole-trimethoprim 800-160 mg tablet 1 tab PO BID Rx Instructions: Start Date: 08/06/2022 - End Date: 08/16/2022 Discharge Orders: Discharge Order (Routine); Ordered 08/22/22 Ordered By: Alireza Franco/Other Patient Handouts: Managing Type 2 Diabetes Admission Data Admit Date/Time: 08/13/22 17:33 Attending Provider: Alireza Girard Admit Provider: Norberto Gregory Primary Care Provider: Aviva Rossi Other Providers: Norberto Gregory ; [facility],Home [facility] Other Interventions: Discharge Summary Assessment (RN) Last Done: 08/22/22 15:28
== END 2022-08-22 17:10 | disposition home health service (06) | DRG 690 ==
LOC: ED 15:01 → 2N 17:33 → SUATTDRO 17:33 → 2N 20:56

== ENCOUNTER 2023-08-13 12:04 | Inpatient (IN) ==
--- NOTE | 2023-08-13 12:25 | Emergency Department Note ---
Impression & Plan Leg swelling, Heart palpitations, Acute UTI ED Provider Note Provider: Micheal Mitchell MD DATE OF SERVICE: 08/13/2023 CHIEF COMPLAINT: Leg swelling, dyspnea on exertion, A-fib HISTORY OF PRESENT ILLNESS: Patient is a 68-year-old female past medical history of type 2 diabetes, hypertension, hyperlipidemia presenting via ambulance today from her home. Follows with [facility]. Evidently had an episode of vomiting last night. Noted this morning she seemed to be in A-fib and over the past week has had some increased bilateral lower leg swelling. Denies any falls or trauma. A bit of dyspnea on exertion when ambulating but denies significant shortness of breath at rest. No fevers reported. No chest pain reported. Denies any abdominal discomfort or nausea currently. Has been having some sciatica and low back pain issues that have been ongoing for some time. Called the [facility] office and reported that she had noted some swelling in A-fib and they advised calling 911, here for evaluation. Patient is on Lasix 40 mg daily and states she has been taking this. States maybe a little bit of increased salt intake recently. No significant recent travel PAST MEDICAL HISTORY: As noted above MEDICATIONS: Reviewed medication list and compliance she states other than meds today SOCIAL HISTORY: Lives at home by herself PHYSICAL EXAM: GENERAL: alert and oriented in no acute distress on stretcher Head: normocephalic and atraumatic EYES: No injection, discharge or icterus. NECK: Trachea midline. ENT: Mucous membranes pink and moist. LUNGS: Airway patent. No retractions. Breath sounds mildly diminished in the bases HEART: Irregular rate and rhythm. No chest wall tenderness ABDOMEN: Soft and non-tender, without guarding or rebound. SKIN: Acyanotic, warm, dry, without rashes EXTREMITIES: 1-2+ edema bilateral lower extremities below the knees. Some slight abrasion of the left anterior khoury without significant crepitus or erythema noted. NEUROLOGICAL: No focal deficits. No aphasia. No facial droop or slurred speech. EK bpm atrial fibrillation without PVC or acute ST segment elevation or depression. QTc 442 CONTINUOUS CARDIAC MONITORING: was ordered and showed a heart rate of 80s to 120s bpm in normal sinus rhythm to atrial fibrillation Patient's laboratory studies and imaging reviewed. Differential includes Premature contractions, electrolyte abnormality, cardiac dysrhythmia, thyroid dysfunction, pulmonary embolism, infection, gastrointestinal, as well as other pathologies. IMPRESSION/MEDICAL DECISION MAKING: Patient well-appearing not distress. Not hypoxic. Initial EKG looks like A-fib RVR but quickly converts what appears to be more of a normal sinus rhythm. Question if she been having paroxysmal atrial fibrillation events. Reports increased leg swelling bilaterally over the past week. Doubt bilateral DVT. Slight wound erythema of the left leg but doubt significant cellulitis or necrotizing fasciitis. Benign abdomen. Doubt acute intra-abdominal pathology. Denying chest pain. Question if she may be having episodes of A-fib causing some of his increased leg edema and may be a bit of her breathing issues. Chest x-ray BNP basic labs were ordered. Due to case management access [facility] records and the patient did have a 14- day rn cardiac rehab in place in February 2023. Review records with EKGs sinus rhythm with PACs. Again twelve-lead here it looks more like A-fib to me but I guess could possibly represent frequent PACs. Given her increased leg swelling discussed with her increased diuresis with some Lasix. Discussed staying in the hospital with further cardiac monitoring and to monitor diuresis. She was agreeable with this plan. Urinalysis does later returned concerning for infection. Antibiotics ordered by hospitalist team. DIAGNOSIS: Swelling, palpitations, acute UTI DISPOSITION: Hospitalist will evaluate Patient was agreeable with this plan. 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, 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 Hypothyroidism Myasthenia gravis "EFFECTS ONLY MY VOCAL CORDS" Arthritis Stress incontinence in female GERD (gastroesophageal reflux disease) Diabetes mellitus, type 2 dexcom intact Hx of cancer of endometrium Idiopathic hypersomnia ADHD Depression Peripheral neuropathy Hx of migraines Irregular heart beats NO CARDS Hypertension Hyperlipidemia Hx of sleep apnea NO DEVICE Chronic obstructive pulmonary disease H/O Surgical History History of surgery lymph node removed from forehead (benign) Hx of cataract extraction right/left History of esophagogastroduodenoscopy (EGD) H/O colonoscopy with polypectomy H/O total hysterectomy History of tooth extraction Nausea and vomiting after administration of anesthetic agent Family History Other No family history of adverse response to anesthesia Social History Smoking Status: Former smoker Tobacco Type: Cigarettes Second Hand Exposure: Yes (as a small child); Do You Dip or Chew Tobacco: No; Hx Alcohol Use: Yes Alcohol type: wine Preferred Language: Brazilian Communication Ability: Effective 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 Beliefs That Will Affect Care: None Current Living Situation: Alone Feels Safe at Home: Yes Assistive Devices: Glasses Allergies Allergies Allergy/AdvReac Type Severity Reaction Status Date / Time penicillin G Allergy Intermediate HIVES Verified 02/05/23 08:12 codeine AdvReac Intermediate VOMITING Verified 02/05/23 08:12 hydrocodone AdvReac Intermediate Vomiting Verified 02/05/23 08:12 Home Meds Home Medications Medication Instructions Recorded Confirmed atorvastatin 20 mg tablet 20 mg PO QAM 03/27/21 08/13/23 bupropion HCl 100 mg tablet,12 hr 100 mg PO QAM 03/27/21 08/13/23 sustained-release bupropion HCl 150 mg tablet,12 hr 150 mg PO QAM 03/27/21 08/13/23 sustained-release cyanocobalamin (vitamin B-12) 1,000 mcg PO QAM 03/27/21 08/13/23 1,000 mcg tablet fluoxetine 60 mg tablet 60 mg PO QAM 03/27/21 08/13/23 losartan 100 mg tablet 100 mg PO QAM 03/27/21 08/13/23 levothyroxine 50 mcg tablet 50 mcg PO QAM 08/13/22 08/13/23 insulin aspart U-100 100 unit/mL 1 sliding scale dose subcut TIDM 08/27/22 08/13/23 subcutaneous solution (Novolog U-100 Insulin aspart) potassium chloride 10 mEq 10 meq PO UD PRN takes when taking 09/09/22 08/13/23 tablet,extended release lasix famotidine 20 mg tablet (Pepcid) 20 mg PO DAILY 09/18/22 08/13/23 insulin degludec 100 26 unit subcut DAILY 01/30/23 08/13/23 unit-liraglutide 3.6 mg/mL(3 mL) subcutaneous pen (Xultophy 100/3.6) mirabegron 50 mg tablet,extended 50 mg PO QAM 01/30/23 08/13/23 release 24 hr (Myrbetriq) albuterol sulfate 90 mcg/actuation 2 puff inhalation Q4H PRN 08/13/23 08/13/23 aerosol inhaler Shortness Of Breath Or Wheezing furosemide 40 mg tablet 40 mg PO DAILY 08/13/23 08/13/23 insulin glargine 100 unit/mL (3 6 unit subcut DAILY 08/13/23 08/13/23 mL) subcutaneous pen (Lantus Solostar U-100 Insulin) Results & Data (ED) Vital Signs Vital Signs - 24 hr 08/13/23 12:17 08/13/23 12:17 08/13/23 12:17 Temperature 36.4 C Temperature Source Oral Pulse Rate 113 H Pulse Rate [Apical] Pulse Rate from SpO2 Sensor Pulse Rhythm Irregular Respiratory Rate 18 Respiratory Effort / Characteristics Non-Labored Spontaneous Respiratory Depth Normal Respiratory Pattern Regular Blood Pressure 104/59 L Blood Pressure [Left Arm] Blood Pressure Mean 74 Blood Pressure Mean [Left Arm] Pulse Oximetry 98 97 Oxygen Delivery Method Room Air Room Air Room Air Sepsis Recent Fever Within 48 Hours No Sepsis New/Unexplained Change in Mental Status No Sepsis Action Taken by Nursing No Action Required 08/13/23 12:24 08/13/23 12:30 08/13/23 13:20 Temperature Temperature Source Pulse Rate 85 84 Pulse Rate [Apical] 85 Pulse Rate from SpO2 Sensor 84 Pulse Rhythm Respiratory Rate 22 18 Respiratory Effort / Characteristics Non-Labored Spontaneous Respiratory Depth Normal Respiratory Pattern Blood Pressure Blood Pressure [Left Arm] 157/70 H Blood Pressure Mean Blood Pressure Mean [Left Arm] 99 Pulse Oximetry 96 98 Oxygen Delivery Method Room Air Room Air Sepsis Recent Fever Within 48 Hours Sepsis New/Unexplained Change in Mental Status Sepsis Action Taken by Nursing 08/13/23 15:00 Temperature Temperature Source Pulse Rate Pulse Rate [Apical] 85 Pulse Rate from SpO2 Sensor Pulse Rhythm Respiratory Rate 18 Respiratory Effort / Characteristics Non-Labored Spontaneous Respiratory Depth Normal Respiratory Pattern Blood Pressure Blood Pressure [Left Arm] 129/66 Blood Pressure Mean Blood Pressure Mean [Left Arm] 87 Pulse Oximetry 97 Oxygen Delivery Method Room Air Sepsis Recent Fever Within 48 Hours Sepsis New/Unexplained Change in Mental Status Sepsis Action Taken by Nursing Laboratory Data 08/13/23 12:20 08/13/23 12:20 Lab Results 08/13/23 08/13/23 08/13/23 Range/Units 12:20 13:20 14:10 WBC 9.13 (4.8-10.8) K/ul RBC 4.39 (4.20-5.40) M/uL Hgb 12.5 (12.0-16.0) g/dl Hct 38.8 (37.0-47.0) % MCV 88.4 (80.0-100.0) fL MCH 28.5 (25.0-34.0) pg MCHC 32.2 (32.0-36.0) g/dL RDW Std Deviation 43.6 (36.4-46.3) fL RDW Coeff of Buck 13.4 (11.5-14.5) % Plt Count 289 (130-400) K/uL MPV 10.2 (9.4-12.4) fL Immature Gran % (Auto) 0.3 % Neut % (Auto) 78.6 % Lymph % (Auto) 12.8 % Arthur % (Auto) 6.6 % Eos % (Auto) 1.4 % Baso % (Auto) 0.3 % Neut # (Auto) 7.17 H (1.40-6.50) K/uL Lymph # (Auto) 1.17 L (1.20-3.40) K/uL Arthur # (Auto) 0.60 H (0.11-0.59) K/uL Eos # (Auto) 0.13 (0.00-0.50) K/uL Baso # (Auto) 0.03 (0.00-0.20) K/uL Immature Gran # (Auto) 0.03 (0.01-0.20) K/uL PT 10.3 (9.0-12.0) Seconds INR 0.9 (0.9-1.1) Sodium 138 (136-145) mmol/L Potassium 4.6 (3.5-5.1) mmol/L Chloride 106 (98-107) mmol/L Carbon Dioxide 27 (21-32) mmol/L Anion Gap 5 (3-11) BUN 25 H (6-23) mg/dl Creatinine 0.86 (0.6-1.2) mg/dl Est Cr Clr Drug Dosing Not Reportable Est GFR ( Amer) 79.3 ml/min Est GFR (Non-Af Amer) 68.4 ml/min BUN/Creatinine Ratio 29.1 H (10-20) Glucose 113 H (70-99(Fasting)) mg/dl Calcium 9.2 (8.6-10.3) mg/dl Magnesium 2.3 (1.7-2.4) mg/dl Total Bilirubin 0.9 (0.2-1.0) mg/dl AST 11 L (13-39) U/L ALT 11 (7-52) U/L Alkaline Phosphatase 57 (34-104) U/L Troponin I High Sens 21.6 H (0-14) pg/ml B-Natriuretic Peptide 164 H (0-100) pg/ml Total Protein 6.9 (6.0-8.3) gm/dl Albumin 3.8 (3.4-5.0) gm/dl Globulin 3.1 (2.5-4.0) gm/dl Albumin/Globulin Ratio 1.2 (0.9-2) Lipase 11 (11-82) U/L TSH 2.564 (0.300-4.500) uIu/ml Urine Color Yellow Urine Appearance Cloudy A (Clear) Urine pH 5.5 (4.5-7.5) Ur Specific [place] 1.010 (1.000-1.030) Urine Protein 1+ H (Negative) Urine Glucose (UA) Negative (Negative) Urine Ketones Negative (Negative) Urine Blood Trace H (Negative) Urine Nitrite Positive A (Negative) Urine Bilirubin Negative (Negative) Urine Urobilinogen Negative (Negative) Ur Leukocyte Esterase 2+ H (Negative) Urine WBC (Auto) >50 H (0-5) /hpf Urine RBC (Auto) 0-2 (0-2) /hpf U Hyaline Cast (Auto) 0-2 (0-2) /lpf U Epithel Cells (Auto) 0-2 (0-2) /hpf Urine Bacteria (Auto) 4+ H (None Seen) SARS-CoV-2, RNA, NAAT NEGATIVE (NEGATIVE) 08/13/23 Range/Units 14:30 WBC (4.8-10.8) K/ul RBC (4.20-5.40) M/uL Hgb (12.0-16.0) g/dl Hct (37.0-47.0) % MCV (80.0-100.0) fL MCH (25.0-34.0) pg MCHC (32.0-36.0) g/dL RDW Std Deviation (36.4-46.3) fL RDW Coeff of Buck (11.5-14.5) % Plt Count (130-400) K/uL MPV (9.4-12.4) fL Immature Gran % (Auto) % Neut % (Auto) % Lymph % (Auto) % Arthur % (Auto) % Eos % (Auto) % Baso % (Auto) % Neut # (Auto) (1.40-6.50) K/uL Lymph # (Auto) (1.20-3.40) K/uL Arthur # (Auto) (0.11-0.59) K/uL Eos # (Auto) (0.00-0.50) K/uL Baso # (Auto) (0.00-0.20) K/uL Immature Gran # (Auto) (0.01-0.20) K/uL PT (9.0-12.0) Seconds INR (0.9-1.1) Sodium (136-145) mmol/L Potassium (3.5-5.1) mmol/L Chloride (98-107) mmol/L Carbon Dioxide (21-32) mmol/L Anion Gap (3-11) BUN (6-23) mg/dl Creatinine (0.6-1.2) mg/dl Est Cr Clr Drug Dosing Est GFR ( Amer) ml/min Est GFR (Non-Af Amer) ml/min BUN/Creatinine Ratio (10-20) Glucose (70-99(Fasting)) mg/dl Calcium (8.6-10.3) mg/dl Magnesium (1.7-2.4) mg/dl Total Bilirubin (0.2-1.0) mg/dl AST (13-39) U/L ALT (7-52) U/L Alkaline Phosphatase (34-104) U/L Troponin I High Sens 38.7 H D (0-14) pg/ml B-Natriuretic Peptide (0-100) pg/ml Total Protein (6.0-8.3) gm/dl Albumin (3.4-5.0) gm/dl Globulin (2.5-4.0) gm/dl Albumin/Globulin Ratio (0.9-2) Lipase (11-82) U/L TSH (0.300-4.500) uIu/ml Urine Color Urine Appearance (Clear) Urine pH (4.5-7.5) Ur Specific [place] (1.000-1.030) Urine Protein (Negative) Urine Glucose (UA) (Negative) Urine Ketones (Negative) Urine Blood (Negative) Urine Nitrite (Negative) Urine Bilirubin (Negative) Urine Urobilinogen (Negative) Ur Leukocyte Esterase (Negative) Urine WBC (Auto) (0-5) /hpf Urine RBC (Auto) (0-2) /hpf U Hyaline Cast (Auto) (0-2) /lpf U Epithel Cells (Auto) (0-2) /hpf Urine Bacteria (Auto) (None Seen) SARS-CoV-2, RNA, NAAT (NEGATIVE) Administered Medications Discontinued Medications Furosemide (Furosemide 40 Mg/4 Ml Vial) 40 mg IV ONE ONE Stop: 08/13/23 12:44 Last Admin: 08/13/23 13:37 Dose: 40 mg Documented By: KIAH Ceftriaxone Sodium (Rocephin) 2,000 mg in 50 mls @ 100 mls/hr IV NOW STA Stop: 08/13/23 15:56 Last Infusion: 08/13/23 16:24 Dose: Infused Documented By: Admin: 08/13/23 15:54 Dose: 100 mls/hr Documented By: [email or web address] Imaging Data Radiologist's Impression: Chest X-Ray 08/13/23 12:17 XR chest 1V portable CLINICAL HISTORY: sob, swelling TECHNIQUE: Single frontal radiograph of the chest was obtained. Comparison: Comparison is made to chest radiograph 08/13/2022 FINDINGS: Exam is limited by underpenetration. The cardiomediastinal silhouette is normal. The lungs are clear. No evidence of pleural effusion or pneumothorax. IMPRESSION: No acute chest disease. ACT 112: Negative or not required by law. Electronically signed by: Myke Dillon M.D. 08/13/2023 12:33 PM Discharge Plan Visit Data Chief Complaint: Arrhythmia/Palpitations Stated Complaint: PALPITATIONS, EDEMA ED Provider: Micheal Mitchell Discharge Problem: Leg swelling, Heart palpitations, Acute UTI Patient Disposition: Being Evaluated by Hospitalist Forms Stand Alone Forms: My [facility] Prescriptions Prescriptions: No Action levothyroxine 50 mcg tablet 50 mcg PO QAM potassium chloride 10 mEq tablet extended release 10 meq PO UD PRN (Reason: takes when taking lasix) Rx Instructions: hasn't been filled with her current pharmacy 08/13/23 famotidine [Pepcid] 20 mg Tablet 20 mg PO DAILY bupropion HCl 150 mg Tablet Sustained-Release 12 Hr 150 mg PO QAM Rx Instructions: TOTAL DOSE 250 MG--TAKES WITH 100 MG TAB. atorvastatin 20 mg Tablet 20 mg PO QAM cyanocobalamin (vitamin B-12) 1,000 mcg Tablet 1,000 mcg PO QAM Rx Instructions: otc unable to verify 08/13/23 bupropion HCl 100 mg Tablet Sustained-Release 12 Hr 100 mg PO QAM Rx Instructions: TOTAL DOSE 250 MG--TAKES WITH 150 MG TAB. losartan 100 mg Tablet 100 mg PO QAM fluoxetine 60 mg Tablet 60 mg PO QAM insulin aspart U-100 [Novolog U-100 Insulin aspart] 100 unit/mL Solution 1 sliding scale dose SUBCUT TIDM Patient Comments: sliding scale Rx Instructions: DOSE TAKE BSG MINUS 120--1 UNIT FOR EVERY 20 LEFT OVER. CARB RATIO 7 CARBS=1 UNIT. Max dose 35 units mirabegron [Myrbetriq] 50 mg Tablet Extended Release 24 Hr 50 mg PO QAM Xultophy 100/3.6 100 unit-3.6 mg /mL (3 mL) Insulin Pen 26 unit SUBCUT DAILY Rx Instructions: per pharmacy -up to 50 units daily per titration. 08/13/23 albuterol sulfate 90 mcg/actuation HFA aerosol inhaler 2 puff INHALATION Q4H PRN (Reason: Shortness Of Breath Or Wheezing) insulin glargine [Lantus Solostar U-100 Insulin] 100 unit/mL (3 mL) insulin pen 6 unit SUBCUT DAILY furosemide 40 mg tablet 40 mg PO DAILY Referrals Referrals: Aviva Rossi DO [Primary Care Provider] -
--- NOTE | 2023-08-13 12:35 | XRay Report ---
XR chest 1V portable CLINICAL HISTORY: sob, swelling TECHNIQUE: Single frontal radiograph of the chest was obtained. Comparison: Comparison is made to chest radiograph 08/13/2022 FINDINGS: Exam is limited by underpenetration. The cardiomediastinal silhouette is normal. The lungs are clear. No evidence of pleural effusion or pneumothorax. IMPRESSION: No acute chest disease. ACT 112: Negative or not required by law. Electronically signed by: Myke Dillon M.D. 08/13/2023 12:33 PM
[2023-08-13 13:09] LABS: Basophils # (auto) 0.03 K/uL (0.00-0.20); Basophils % (auto) 0.3 %; Eosinophils # (auto) 0.13 K/uL (0.00-0.50); Eosinophils % (auto) 1.4 %; Hematocrit (blood only) 38.8 % (37.0-47.0); Hemoglobin 12.5 g/dl (12.0-16.0); Immature Granulocytes # (auto) 0.03 K/uL (0.01-0.20); Immature Granulocytes % (auto) 0.3 %; Lymphocytes # (auto) 1.17 K/uL (1.20-3.40); Lymphocytes % (auto) 12.8 %; Mean Corpuscular Hemoglobin 28.5 pg (25.0-34.0); Mean Corpuscular Hgb Conc 32.2 g/dL (32.0-36.0); Mean Corpuscular Volume 88.4 fL (80.0-100.0); Mean Platelet Volume 10.2 fL (9.4-12.4); Monocytes % (auto) 6.6 %; Neutrophils # (auto) 7.17 K/uL (1.40-6.50); Neutrophils % (auto) 78.6 %; Platelet Count 289 K/uL (130-400); RDW Coefficient of Variation 13.4 % (11.5-14.5); RDW Standard Deviation 43.6 fL (36.4-46.3); Red Blood Count 4.39 M/uL (4.20-5.40); White Blood Count 9.13 K/ul (4.8-10.8)
[2023-08-13 13:21] LABS: Alanine Aminotransferase 11 U/L (7-52); Albumin Globulin Ratio 1.2 (0.9-2); Albumin Level 3.8 gm/dl (3.4-5.0); Alkaline Phosphatase 57 U/L (34-104); Anion Gap 5 (3-11); Aspartate Aminotransferase 11 U/L (13-39); BUN Creatinine Ratio 29.1 (10-20); Bilirubin,Total 0.9 mg/dl (0.2-1.0); Blood Urea Nitrogen 25 mg/dl (6-23); Calcium 9.2 mg/dl (8.6-10.3); Carbon Dioxide 27 mmol/L (21-32); Chloride 106 mmol/L (98-107); Est GFR (African American) 79.3 ml/min; Est GFR (Non-African American) 68.4 ml/min; Globulin 3.1 gm/dl (2.5-4.0); Glucose 113 mg/dl (70-99(Fasting)); Lipase 11 U/L (11-82); Magnesium 2.3 mg/dl (1.7-2.4); Potassium 4.6 mmol/L (3.5-5.1); Sodium 138 mmol/L (136-145); Total Protein 6.9 gm/dl (6.0-8.3)
[2023-08-13 13:27] LABS: Troponin I High Sensitivity 21.6 pg/ml (0-14)
[2023-08-13 13:29] LABS: INR 0.9 (0.9-1.1); Prothrombin Time 10.3 Seconds (9.0-12.0)
[2023-08-13 13:34] LABS: Thyroid Stimulating Hormone 2.564 uIu/ml (0.300-4.500)
[2023-08-13] MEDS: FUROSEMIDE 40 MG/4 ML VIAL IV ONE (13:37)
[2023-08-13 14:32] LABS: Appearance Urine Cloudy (Clear); Bacteria Urine Automated 4+ (None Seen); Bilirubin Urine Negative (Negative); Blood Urine Trace (Negative); Cast Urine Automated 0-2 /lpf (0-2); Color Urine Yellow; Epithelial Cell Urine Auto 0-2 /hpf (0-2); Glucose Urine UA Negative (Negative); Ketones Urine Negative (Negative); Leukocyte Esterase Urine 2+ (Negative); Nitrite Urine Positive (Negative); Protein Urine 1+ (Negative); RBC Urine Automated 0-2 /hpf (0-2); Urobilinogen Urine Negative (Negative); WBC Urine Automated >50 /hpf (0-5); pH Urine 5.5 (4.5-7.5)
[2023-08-13] MEDS: cefTRIAXone SODIUM 2,000 MG/50 ML BAG IV STA (15:54)
--- NOTE | 2023-08-13 16:43 | Electrocardiogram Report ---
Test Reason : Blood Pressure : / mmHG Vent. Rate : 115 BPM Atrial Rate : 000 BPM P-R Int : 000 ms QRS Dur : 076 ms QT Int : 320 ms P-R-T Axes : 000 040 055 degrees QTc Int : 442 ms Atrial fibrillation with rapid ventricular response Low voltage QRS Abnormal ECG When compared with ECG of 27-AUG-2022 19:37, Atrial fibrillation has replaced Sinus rhythm Confirmed by Antonino Kelly ([id number]) on 08/13/2023 4:43:22 PM Referred By: Aviva Rossi Confirmed By:Antonino Kelly
--- NOTE | 2023-08-13 18:15 | History & Physical Report ---
Date of Service August 13, 2023 Assessment & Plan (1) Atrial fibrillation with rapid ventricular response: Plan: Atrial Fibrillation RVR: Newly diagnosed Troponin elevation likely demand ischemia secondary to tachycardia --CXR:No acute chest disease. --TSH: 2.5 Will obtain resting echo Monitor electrolytes and replace Start on metoprolol 12.5 mg twice daily Also started on IV heparin Cardiology consulted Trend Cardiac enzymes Urinary tract infection Urine culture pending Empirically started on Rocephin Possible acute CHF--likely diastolic Reports increased leg edema, dyspnea on exertion BNP 164 Received IV Lasix in ED Will obtain echo Continue home diuretics Monitor I's and O's, daily weight Further management based on echo results DM Type II: Last A1c: 6.7 Update A1C Continue ISS, basal Insulin, Accu checks, Diabetic diet Pharmacy Glycemic control consult CATHERINE continue CPAP HS Morbid obesity BMI 54 Other chronic conditions Hypertension Hyperlipidemia Depression Hypothyroidism B12 deficiency Continue home medications DVT Px: IV heparin CODE STATUS Full Code History of Present Illness Chief Complaint: Afib Primary Care Provider: Aviva Rossi DO Patient is a 68-year-old female with history of diabetes mellitus type 2, hypertension, hyperlipidemia, depression, CATHERINE, hypothyroidism, B12 deficiency and other medical problems presents with history of intermittent palpitations associated with nausea, vomiting and dizziness. Patient admits to have palpitations in the past as above about 6 months ago which resolved without any intervention. She also reports having heartburn like sensation associated with palpitations this morning. Reports chronic dyspnea on exertion which is unchanged. Also states having dysuria but no hematuria or increased urinary frequency. No known history of arrhythmias in the past. Denies any history of chest pain, cough, fever, chills, syncope, headache, change in vision, abdominal pain, diarrhea, change in appetite, recent change in medications. Allergies Allergy/AdvReac Type Severity Reaction Status Date / Time penicillin G Allergy Intermediate HIVES Verified 02/05/23 08:12 codeine AdvReac Intermediate VOMITING Verified 02/05/23 08:12 hydrocodone AdvReac Intermediate Vomiting Verified 02/05/23 08:12 Home Medications Medication Instructions Recorded Confirmed Type atorvastatin 20 mg tablet 20 mg PO QAM 03/27/21 08/13/23 History bupropion HCl 100 mg tablet,12 hr 100 mg PO QAM 03/27/21 08/13/23 History sustained-release bupropion HCl 150 mg tablet,12 hr 150 mg PO QAM 03/27/21 08/13/23 History sustained-release cyanocobalamin (vitamin B-12) 1,000 mcg PO QAM 03/27/21 08/13/23 History 1,000 mcg tablet fluoxetine 60 mg tablet 60 mg PO QAM 03/27/21 08/13/23 History losartan 100 mg tablet 100 mg PO QAM 03/27/21 08/13/23 History levothyroxine 50 mcg tablet 50 mcg PO QAM 08/13/22 08/13/23 History insulin aspart U-100 100 unit/mL 1 sliding scale dose subcut TIDM 08/27/22 08/13/23 History subcutaneous solution (Novolog U-100 Insulin aspart) potassium chloride 10 mEq 10 meq PO UD PRN takes when taking 09/09/22 08/13/23 History tablet,extended release lasix famotidine 20 mg tablet (Pepcid) 20 mg PO DAILY 09/18/22 08/13/23 History insulin degludec 100 26 unit subcut DAILY 01/30/23 08/13/23 History unit-liraglutide 3.6 mg/mL(3 mL) subcutaneous pen (Xultophy 100/3.6) mirabegron 50 mg tablet,extended 50 mg PO QAM 01/30/23 08/13/23 History release 24 hr (Myrbetriq) albuterol sulfate 90 mcg/actuation 2 puff inhalation Q4H PRN 08/13/23 08/13/23 History aerosol inhaler Shortness Of Breath Or Wheezing furosemide 40 mg tablet 40 mg PO DAILY 08/13/23 08/13/23 History insulin glargine 100 unit/mL (3 6 unit subcut DAILY 08/13/23 08/13/23 History mL) subcutaneous pen (Lantus Solostar U-100 Insulin) Past Med/Surg History Problem List (Updated 08/13/23 @ 19:01 by Gbae Mcneill MD) Atrial fibrillation with rapid ventricular response Acute UTI (Acute) Heart palpitations (Acute) Leg swelling (Acute) Colon polyp Colon cancer screening Encounter for pre-operative examination (Acute) Hyperlipidemia Hypertension Diabetes mellitus, type 2 dexcom intact Medical History Chronic cough 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, 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 Hypothyroidism Myasthenia gravis "EFFECTS ONLY MY VOCAL CORDS" Arthritis Stress incontinence in female GERD (gastroesophageal reflux disease) Hx of cancer of endometrium Idiopathic hypersomnia ADHD Depression Peripheral neuropathy Hx of migraines Irregular heart beats NO CARDS Hx of sleep apnea NO DEVICE Chronic obstructive pulmonary disease H/O Surgical History History of surgery lymph node removed from forehead (benign) Hx of cataract extraction right/left History of esophagogastroduodenoscopy (EGD) H/O colonoscopy with polypectomy H/O total hysterectomy History of tooth extraction Nausea and vomiting after administration of anesthetic agent Family History Other No family history of adverse response to anesthesia Social History Smoking Status: Former smoker Tobacco Type: Cigarettes Second Hand Exposure: Yes (as a small child); Do You Dip or Chew Tobacco: No; Hx Alcohol Use: Yes Alcohol type: wine Preferred Language: [place] Communication Ability: Effective Direct Chill Caster Required: No Beliefs That Will Affect Care: None Current Living Situation: Alone Feels Safe at Home: Yes Assistive Devices: Glasses Review of Systems Review of Systems: All systems reviewed & are unremarkable except as noted in Subjective Physical Exam Physical Exam: Physical Exam: Vitals signs as noted above General Appearance:Obese, no apparent distress Head: normocephalic, Atraumatic Eyes: normal inspection, EOMI Neck: supple, Trachea midline Respiratory/Chest: Normal breath sounds, CTA, No accessory muscle use Cardiovascular: Irregularly irregular, No murmur Abdomen/GI:Soft, Non tender, Bowel sounds present Extremities/Musculoskeletal:normal inspection, 1+ B/L LE edema Neurologic/Psych:AAOX3, grossly no focal neurological deficits Skin: normal color, warm Results & Data Results & Data Vital Signs (Past 12 Hours) Vital Signs Temp Pulse Pulse Resp BP BP Pulse Ox 08/13/23 15:00 85 18 129/66 97 08/13/23 13:20 85 18 157/70 H 98 08/13/23 12:30 84 22 96 08/13/23 12:24 85 08/13/23 12:17 97 08/13/23 12:17 08/13/23 12:17 36.4 C 113 H 18 104/59 L 98 O2 Del Method 08/13/23 15:00 Room Air 08/13/23 13:20 Room Air 08/13/23 12:30 Room Air 08/13/23 12:24 08/13/23 12:17 Room Air 08/13/23 12:17 Room Air 08/13/23 12:17 Room Air Laboratory Results Short CBC 08/13/23 Range/Units 12:20 WBC 9.13 (4.8-10.8) K/ul Hgb 12.5 (12.0-16.0) g/dl Hct 38.8 (37.0-47.0) % Plt Count 289 (130-400) K/uL BMP 08/13/23 12:20 Sodium 138 Potassium 4.6 Chloride 106 Carbon Dioxide 27 BUN 25 H Creatinine 0.86 Glucose 113 H Calcium 9.2 Liver Function 08/13/23 Range/Units 12:20 Total Bilirubin 0.9 (0.2-1.0) mg/dl AST 11 L (13-39) U/L ALT 11 (7-52) U/L Alkaline Phosphatase 57 (34-104) U/L Albumin 3.8 (3.4-5.0) gm/dl Urine 08/13/23 Range/Units 14:10 Urine Color Yellow Urine Appearance Cloudy A (Clear) Urine pH 5.5 (4.5-7.5) Ur Specific [place] 1.010 (1.000-1.030) Urine Protein 1+ H (Negative) Urine Glucose (UA) Negative (Negative) Diagnostic Findings --CXR:No acute chest disease. ECG Additional Comments: --EKG: Atrial fibrillation with RVR. Low-voltage QRS. QTc 442. Code Status & VTE Plan VTE Prophylaxis Plan VTE Prophylaxis will be ordered: Yes
[2023-08-13] MEDS ORDERED: CARBOHYDRATES FOR HYPOGLYCEMIA PO PRN (18:57)
[2023-08-13] MEDS ORDERED: PHARMACY GLYCEMIC MGMT CONSULT PRN (18:57)
[2023-08-13] MEDS ORDERED: DEXTROSE 50% 50 ML SYRINGE IV PRN (18:57)
[2023-08-13] MEDS ORDERED: GLUCOSE 40% GEL 15 GM TUBE PO PRN (18:57)
[2023-08-13] MEDS ORDERED: GLUCOSE 10 TAB/TUBE PO PRN (18:57)
[2023-08-13] MEDS ORDERED: ALBUTEROL HFA 8 GM INHALER INH PRN (18:57)
[2023-08-13] MEDS ORDERED: GLUCAGON FOR INJ 1 MG VIAL SQ PRN (18:57)
[2023-08-13] MEDS ORDERED: METOPROLOL TARTRATE 1 MG/ML VIAL IV PRN (18:57)
[2023-08-13] MEDS ORDERED: POLYETHYLENE (MIRALAX) 17 GM PACK PO PRN (18:57)
[2023-08-13] MEDS: ACETAMINOPHEN 325 MG TAB PO PRN (20:35)
[2023-08-13] MEDS: INSULIN ASPART PER UNIT CHARGE SC SCH (20:35)
[2023-08-13] MEDS: METOPROLOL TARTRATE 25 MG TAB PO SCH (20:36)
[2023-08-13] MEDS: Heparin IV Adult Wt-Based Standard *NO* INITIAL Bolus Protocol IV STA (20:36)
[2023-08-13] MEDS: HEPARIN SODIUM/DEXTROSE 25,000 UNITS/500 ML BAG IV SCH (20:36)
[2023-08-14 03:15] LABS: Hematocrit (blood only) 33.9 % (37.0-47.0); Hemoglobin 10.9 g/dl (12.0-16.0); Mean Corpuscular Hemoglobin 28.6 pg (25.0-34.0); Mean Corpuscular Hgb Conc 32.2 g/dL (32.0-36.0); Mean Platelet Volume 10.2 fL (9.4-12.4); Platelet Count 257 K/uL (130-400); RDW Coefficient of Variation 13.5 % (11.5-14.5); RDW Standard Deviation 44.3 fL (36.4-46.3); Red Blood Count 3.81 M/uL (4.20-5.40); White Blood Count 11.57 K/ul (4.8-10.8)
[2023-08-14 03:31] LABS: BUN Creatinine Ratio 27.7 (10-20); Calcium 8.6 mg/dl (8.6-10.3); Creatinine Clr Calc Pharmacy 72.7 ml/min; Est GFR (African American) 71.2 ml/min; Est GFR (Non-African American) 61.5 ml/min; Magnesium 2.1 mg/dl (1.7-2.4); Potassium 4.2 mmol/L (3.5-5.1)
[2023-08-14 03:42] LABS: ANTI-Xa, UFH(UnfractionatedHep 0.61 IU/ml (0.3-0.7)
[2023-08-14] MEDS: LEVOTHYROXINE SODIUM 50 MCG TABLET PO SCH (06:05)
[2023-08-14 07:09] LABS: Estimated Average Glucose 134 mg/dl; Hemoglobin A1C 6.3 % (4.5-5.6)
[2023-08-14] MEDS: ATORVASTATIN 20 MG TAB PO SCH (08:13)
[2023-08-14] MEDS: FAMOTIDINE 20 MG TAB PO SCH (08:13)
[2023-08-14] MEDS: buPROPion SR 100 MG TABCR PO SCH (08:13)
[2023-08-14] MEDS: CYANOCOBALAMIN (B-12) 500 MCG TABLET PO SCH (08:13)
[2023-08-14] MEDS: VIBEGRON 75 MG TAB PO SCH (08:13)
[2023-08-14] MEDS: buPROPion SR 150 MG TABCR PO SCH (08:14)
[2023-08-14] MEDS: FLUoxetine HCL 20 MG CAP PO SCH (08:14)
[2023-08-14] MEDS: FUROSEMIDE 40 MG TAB PO SCH (08:14)
[2023-08-14] MEDS: LOSARTAN POTASSIUM 50 MG TAB PO SCH (08:15)
[2023-08-14] MEDS: LANTUS PER UNIT CHARGE SC SCH ×2 (08:22→08:33)
--- NOTE | 2023-08-14 08:46 | Cardiology Consultation ---
Date of Consultation August 14, 2023 Assessment & Plan (1) Atrial fibrillation with rapid ventricular response: (2) Acute UTI: (3) Leg swelling: (4) Hypertension: (5) Hyperlipidemia: Plan Assessment: 68 year-old female presented to the ED with acute N/V symptoms along with palpitations. She was found to be in new onset atrial fibrillation with RVR in the setting of an acute UTI Plan: 1. Atrial fibrillation with RVR: -New onset;however, patient does endorse several months worth of intermittent palpitations. suspect this has been going on longer. Likely triggered in this case by the acute UTI -Converted to NSR last evening and remains NSR. Asymptomatic -Obtain echocardiogram to assess overall structure and function. -Continue Metoprolol tartrate 12.5mg PO BID, will likely switch to succinate prior to discharge pending echo results. -CHADS-VASC2 score 5 with recommendation for anticoagulation therapy as she is at increased risk for thrombo-embolic event. -Currently on Heparin gtt. Would recommend transition to Eliquis 5mg PO BID. Recommend that case management check into cost affordability of this medication. -Patient is very knowledgeable in regards to her disease process and is in agreement to start oral anticoagulation. 2. Acute UTI: -As per management of primary team. Continue IV rocephin 3. Leg swelling: -last known echocardiogram shows LVEF 60-65% with normal LV and RV systolic function -Patient is compliant on all medication therapies including her home dose of PO Lasix. -Demonstrates modest volume overload in the lower extremities in the setting of new onset Afib with RVR. Will give a one time dose of IV lasix 40mg now. -Strict I&O, daily weights and monitor renal function closely. -Goal serum K > 4.0 and Serum mag> 2.0 4. HTN: At Target -Continue metoprolol tartrate, Losartan, Furosemide 5. HLD: -Continue Atorvastatin as per home regimen. Case has been discussed with Dr. Hickey. Further recommendations regarding plan of care as per his assessment. I spent a total of 40 minutes on the date of service in preparation, delivery, documentation of the care provided to the patient excluding any time spent in the performance of separately billed services. RICCI Velarde [facility] Supervising Physician Co-Signing Physician Notes I have personally performed a history and physical examination on the patient. I have reviewed the advance practitioner's documentation, and I agree with, and take responsibility for the plan of care. 68-year-old female present emergency department with symptoms including nausea, vomiting, dizziness, and palpitations. ECG demonstrating atrial fibrillation with rapid ventricular response. Notes palpitations dating back several weeks to months. Converted to sinus rhythm overnight. Complains of worsening lower extremity edema over the past few days. Requesting additional Lasix today if possible. A/P: Natural history pathophysiology of paroxysmal atrial fibrillation discussed. Patient agreeable to beta-grady therapy and oral anticoagulation with apixaban. Titrate metoprolol to 25 mg twice daily. Transition from IV heparin to apixaban prior to discharge. She received additional dose of IV furosemide this afternoon. 2D echocardiogram reviewed demonstrating preserved LV systolic function with mild left atrial enlargement and no significant valvular pathology. I spent a total of 30 minutes on the date of service in preparation, delivery, and documentation of the care provided to this patient, excluding any time spent in the performance of separately billed services. History of Present Illness Reason for Consultation: A-fib/CHF Requesting Physician: Vivek mcfadden Attending Physician: Woo Jean Baptiste MD History of Present Illness HPI: patient is a 68 year old female with PMHx significant for HTN, HLD, CATHERINE, DM type 2, Hypothyroidism, depression, and B12 deficiency that presented to the ED with complaints of N/V, dizziness and palpitations. Patient also complaints of dysuria, but no hematuria. Further discussion with patient at bedside reveals that she has been having intermittent palpitations for several months, but did not pursue further investigation. She reports that she has had occasional PAC's for years, but she knew on the day of admission that this was much more. patient denies any chest pain, pressure or palpitations. No shortness of breath, PND, pre-syncope, or syncope. She does endorse some lower extremity edema, worse over the past week despite home diurectic regimen. EKG on admission demonstrates A-fib with RVR rate 115bpm. Repeat EKG at 1851 last night demonstrates NSR rate 82bpm, and repeat this AM remains NSR rate 72bpm Troponin with mild elevation 21.6/38.7/42.9 + UA Chest xray negative for acute process Review of telemetry demonstrates continues NSR with no ectopy and no acute events overnight. Allergies Allergy/AdvReac Type Severity Reaction Status Date / Time penicillin G Allergy Intermediate HIVES Verified 02/05/23 08:12 codeine AdvReac Intermediate VOMITING Verified 02/05/23 08:12 hydrocodone AdvReac Intermediate Vomiting Verified 02/05/23 08:12 Home Medications Medication Instructions Recorded Confirmed Type atorvastatin 20 mg tablet 20 mg PO QAM 03/27/21 08/13/23 History bupropion HCl 100 mg tablet,12 hr 100 mg PO QAM 03/27/21 08/13/23 History sustained-release bupropion HCl 150 mg tablet,12 hr 150 mg PO QAM 03/27/21 08/13/23 History sustained-release cyanocobalamin (vitamin B-12) 1,000 mcg PO QAM 03/27/21 08/13/23 History 1,000 mcg tablet fluoxetine 60 mg tablet 60 mg PO QAM 03/27/21 08/13/23 History losartan 100 mg tablet 100 mg PO QAM 03/27/21 08/13/23 History levothyroxine 50 mcg tablet 50 mcg PO QAM 08/13/22 08/13/23 History insulin aspart U-100 100 unit/mL 1 sliding scale dose subcut TIDM 08/27/22 08/13/23 History subcutaneous solution (Novolog U-100 Insulin aspart) potassium chloride 10 mEq 10 meq PO UD PRN takes when taking 09/09/22 08/13/23 History tablet,extended release lasix famotidine 20 mg tablet (Pepcid) 20 mg PO DAILY 09/18/22 08/13/23 History insulin degludec 100 26 unit subcut DAILY 01/30/23 08/13/23 History unit-liraglutide 3.6 mg/mL(3 mL) subcutaneous pen (Xultophy 100/3.6) mirabegron 50 mg tablet,extended 50 mg PO QAM 01/30/23 08/13/23 History release 24 hr (Myrbetriq) albuterol sulfate 90 mcg/actuation 2 puff inhalation Q4H PRN 08/13/23 08/13/23 History aerosol inhaler Shortness Of Breath Or Wheezing furosemide 40 mg tablet 40 mg PO DAILY 08/13/23 08/13/23 History insulin glargine 100 unit/mL (3 6 unit subcut DAILY 08/13/23 08/13/23 History mL) subcutaneous pen (Lantus Solostar U-100 Insulin) apixaban 5 mg tablet (Eliquis) 5 mg PO BID #60 tabs 08/14/23 Rx Patient History Medical History Chronic cough 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, 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 Hypothyroidism Myasthenia gravis "EFFECTS ONLY MY VOCAL CORDS" Arthritis Stress incontinence in female GERD (gastroesophageal reflux disease) Hx of cancer of endometrium Idiopathic hypersomnia ADHD Depression Peripheral neuropathy Hx of migraines Irregular heart beats NO CARDS Hx of sleep apnea NO DEVICE Chronic obstructive pulmonary disease H/O Surgical History History of surgery lymph node removed from forehead (benign) Hx of cataract extraction right/left History of esophagogastroduodenoscopy (EGD) H/O colonoscopy with polypectomy H/O total hysterectomy History of tooth extraction Nausea and vomiting after administration of anesthetic agent Family History Other No family history of adverse response to anesthesia Social History Smoking Status: Former smoker Tobacco Type: Cigarettes Smoking End Date: 1990; Second Hand Exposure: Yes (as a small child); Do You Dip or Chew Tobacco: No; Hx Alcohol Use: Yes Alcohol type: wine Hx Substance Use: No Preferred Language: Citizen Of [place] Communication Ability: Effective Dial Maker Required: No Beliefs That Will Affect Care: None Current Living Situation: Alone Feels Safe at Home: Yes Safety Concerns: Feels Safe At This Time Assistive Devices: Cane and Walker Review of Systems Review of Systems: All systems reviewed & are unremarkable except as noted in HPI & below Physical Exam Constitutional: + overweight; no acute distress and not ill appearing Neck: normal visual inspection and trachea midline Respiratory: normal respiratory effort, lungs clear to auscultation Cardiovascular: Rate/Rhythm: regular rate and regular rhythm Heart Sounds: normal S1 and normal S2; no murmur Vessels: dorsalis pedis pulses present; no JVD Extremities: + edema (+2 BLE) Skin: no rashes, warm and dry Psychiatric: A+Ox3, euthymic affect Results & Data Vital Signs (Past 12 Hours) Vital Signs Temp Pulse Pulse Resp BP Pulse Ox O2 Del Method 08/14/23 04:36 36.9 C 72 18 124/62 95 Room Air 08/14/23 00:00 36.7 C 70 18 129/71 96 Room Air 08/13/23 23:46 68 08/13/23 22:08 70 21 95 08/13/23 21:23 O2 Del Method FiO2 08/14/23 04:36 08/14/23 00:00 08/13/23 23:46 08/13/23 22:08 21 08/13/23 21:23 Room Air Laboratory Results Cardiac Enzymes 08/13/23 08/13/23 08/13/23 Range/Units 12:20 14:30 22:53 AST 11 L (13-39) U/L Troponin I High Sens 21.6 H 38.7 H D 42.9 H (0-14) pg/ml B-Natriuretic Peptide 164 H (0-100) pg/ml Coagulation 08/13/23 Range/Units 12:20 PT 10.3 (9.0-12.0) Seconds B-Natriuretic Peptide 164 H (0-100) pg/ml CBC 08/13/23 08/14/23 Range/Units 12:20 02:46 WBC 9.13 11.57 H (4.8-10.8) K/ul RBC 4.39 3.81 L (4.20-5.40) M/uL Hgb 12.5 10.9 L (12.0-16.0) g/dl Hct 38.8 33.9 L (37.0-47.0) % Plt Count 289 257 (130-400) K/uL Neut # (Auto) 7.17 H (1.40-6.50) K/uL Lymph # (Auto) 1.17 L (1.20-3.40) K/uL [place] # (Auto) 0.60 H (0.11-0.59) K/uL Eos # (Auto) 0.13 (0.00-0.50) K/uL Baso # (Auto) 0.03 (0.00-0.20) K/uL Comprehensive Metabolic Panel 08/13/23 08/14/23 Range/Units 12:20 02:46 Sodium 138 138 (136-145) mmol/L Potassium 4.6 4.2 (3.5-5.1) mmol/L Chloride 106 106 (98-107) mmol/L Carbon Dioxide 27 26 (21-32) mmol/L BUN 25 H 26 H (6-23) mg/dl Creatinine 0.86 0.94 (0.6-1.2) mg/dl Glucose 113 H 104 H (70-99(Fasting)) mg/dl Calcium 9.2 8.6 (8.6-10.3) mg/dl AST 11 L (13-39) U/L ALT 11 (7-52) U/L Alkaline Phosphatase 57 (34-104) U/L Total Protein 6.9 (6.0-8.3) gm/dl Albumin 3.8 (3.4-5.0) gm/dl Intake and Output 08/13/23 08/14/23 08/14/23 22:59 06:59 14:59 Intake Total 50 / 359 309 / 359 133.5 / 133.5 Output Total 50 / 52 Balance 48 / 307 259 / 307 133.5 / 133.5 Intake: IV 50 / 359 309 / 359 133.5 / 133.5 Heparin Sodium/Dextrose 25,000 309 / 309 133.5 / 133.5 units In 500 ml @ 1,500 UNITS/ HR 30 mls/hr IV .[id number] [facility] Rx #:[id number] [id number] SODIUM 2,000 mg In 50 / 50 50 ml @ 100 mls/hr IV NOW STA Rx#:[id number] Output: Urine 50 / 50 # Bowel Movements 2 / 2 Other: # Unmeasured Voids 1 0 Weight 131.5 kg 130.5 kg Weight Measurement Method Built in [facility] Standing Scale
[2023-08-14] MEDS ORDERED: NON-FORMULARY MEDICATION (Insulin Degludec-Liraglutide [Xultophy 100/3.6] 100 unit-3.6 mg SQ SCH (09:00)
[2023-08-14] MEDS ORDERED: LANTUS PER UNIT CHARGE SC SCH (09:00)
--- OUTSIDE RECORDS SUMMARY | 2023-08-14 12:12 | External Medical Summary | Summary of Care ---
Author Name Unknown Organization [facility] Address [address] [place] [address] Phone [phone] Care Team Providers Care Tile Sorter Name Role Phone Aviva Rossi DO Primary Care Provider Reason for Referral * Evaluate & Treat - Unlimited Visits (Within 10 days (routine)) - Authorized Specialty Diagnoses / Procedures Referred By Contac t Referred To Contact Pain Management / Pain Medicine Diagnoses Lumbar radiculopathy L4-L5 disc bulge Aviva Rossi DO [address] [place] [address] Referral ID Status Reason Start Date Expiration Date Visits Requested Visits Authorized [id number] Authorized Specialty Services Required 08/06/[phone] Question Answer Referral Priority Within 10 days (routine) Where should this appointment be scheduled? ising Reason for referral? Interventional Pain Management - (Injection) What condition is the patient being referred for? Lumbar Radiculopathy What is the preferred location to have this test performed? [facility] Comments Patient Name: Lisa Gamboa Date of : 1955 Department Phone Number: MRI or CT (if unable to have a MRI) is recommended if any of the following apply: 1. Patient has neck or back pain with radiation to extremities. A previous MRI will be accepted if symptoms unchanged since prior MRI. 2. Spinal surgery since last MRI. If yes, order a MRI with and without contrast. 3. Hx or ongoing cancer treatment. Patient will need spine x-ray (Ap/Lat) for axial neck or back pain if not done previously. Fax No. [facility] [phone] or contact hotel front desk agent [phone] Fax No. [facility] [phone] or contact hotel front desk agent [phone] Fax No. [facility] [phone] or contact hotel front desk agent [phone] Reason for Visit * Reason Onset Date Comments Referral 08/06/2023 Pain Clinic Information 08/06/202308/05 Encounter Details Date Type Department Care Team (Late st Contact Info) Description 08/06/2023 Telephone Family Practice [address] [facility] [address] [place] [address] Aviva Rossi DO [address] [place] [address] Referral (Pain Clinic); Information (08/05) Allergies Active Allergy Reactions Criticality Noted Date Comments Codeine 11/20/2012 Nausea and vomiting Lisinopril 06/12/2015 ?cough Penicillin G 11/20/2012 Hives Hydrocodone-Acetaminophen 11/20/2012 Nausea and vomiting documented as of this encounter (statuses as of 08/07/2023) Medications Medication Sig Dispensed Refills Start Date End Date Status Magnesium Oxide 400 MG Oral Capsule Take 1 Capsule by mouth daily. Taking weekly 0 03/27/2021 Active Cyanocobalamin 1000 MCG Oral Tablet (Cyanocobalamin) Take 1 Tablet by mouth daily. 0 03/27/2021 Active Vision Formula Eye Health Oral Capsule Take 1 Capsule by mouth daily. 0 05/09/2022 Active Dexcom G6 Sensor Use as directed. Use as directed every 10 days to monitor blood sugars 0 06/20/2022 Active Potassium Chloride ER 10 MEQ Oral Tablet Extended Release Take 1 Tablet by mouth in the morning. 0 06/14/2022 Active Systane Complete PF 0.6 % Ophthalmic Solution (Propylene Glycol (PF)) Instill 1 Drop into eye as needed for Dry eyes. 0 09/03/2022 Active Furosemide 40 MG Oral Tablet (Lasix) Take 1 Tablet by mouth in the morning. 0 09/03/2022 Active Famotidine 20 MG Oral Tablet (Pepcid)Indications :Gastroesophageal reflux disease, unspecified whether esophagitis present TAKE ONE TABLET BY MOUTH EVERY MORNING 200 Tablet 3 09/03/2022 10/22/19 24 Active Levothyroxine Sodium 50 MCG Oral Tablet (Levoxyl)Indication s:Acquired hypothyroidism TAKE 1 TABLET BY MOUTH DAILY AT LEAST 30 MINUTES PRIOR TO FIRST MEAL OF THE DAY OR OTHER MEDICATIONS 100 Tablet 3 08/06/2022 10/22/19 24 Active Atorvastatin Calcium 20 MG Oral Tablet (Lipitor) TAKE ONE TABLET BY MOUTH DAILY 100 Tablet 3 08/06/2022 10/22/19 24 Active Insulin Syringe-Needle U-100 30G X 5/16" 0.3 ML USE TO INJECT TWO TO THREE TIMES DAILY 300 Each 3 07/15/2022 10/25/19 24 Active NovoLOG FlexPen 100 UNIT/ML Subcutaneous Solution Pen-injector (insulin aspart) INJECT WITH WITH EACH MEAL PER CARB RATIO 1:7 AND CORRECTION FACTOR 1:20>120 MAX DAILY DOSE 35 UNITS 30 mL 3 10/03/2022 Active Xultophy 100-3.6 UNIT-MG/ML Subcutaneous Solution Pen-injector (Insulin Degludec-Liraglutid e) Inject up to 50 units daily subcutaneously as directed per titration schedule 45 mL 3 11/27/2022 Active Additional Information Patient taking differently: Inject up to 50 units daily subcutaneously as directed per titration schedule.Pt reports she is currently only taking 30 units., Reported on 06/17/2023 Pen [place] 316" 31G X 5 MM Use daily to inject insulin 4 times daily 400 Each 1 11/27/2022 Active Insulin Glargine Solostar 100 UNIT/ML Subcutaneous Solution Pen-injectorIndicat ions:Diabetes mellitus with peripheral vascular disease (HCC),Type 2 diabetes mellitus with hemoglobin A1c goal of less than 8.0% ([facility]) Titrate down per titration schedule as starting Xultophy. Pt reports she is currently taking 8 units. 0 11/27/2022 Active FLUoxetine HCl 20 MG Oral Capsule (PROzac)Indications :Major depressive disorder, single episode, in partial remission (HCC) Take 1 Capsule by mouth in the morning. 100 Capsule 3 12/09/2022 Active FLUoxetine HCl 40 MG Oral Capsule (PROzac)Indications :Major depressive disorder, single episode, in partial remission (HCC) Take 1 Capsule by mouth in the morning. 100 Capsule 3 12/09/2022 Active ProAir HFA 108 (90 Base) MCG/ACT Inhalation Aerosol SolutionIndications :Shortness of breath,History of asthma Inhale 2 Puffs by mouth 4 times a day as needed for Dyspnea. 54 g 1 01/08/2023 Active Losartan Potassium 100 MG Oral Tablet (Cozaar)Indications :Type 2 diabetes mellitus with hemoglobin A1c goal of less than 8.0% ([facility]),Hypertension goal BP (blood pressure) < 140/90 TAKE ONE TABLET BY MOUTH EVERY DAY 90 Tablet 1 04/05/2023 Active buPROPion HCl ER (SR) 150 MG Oral Tablet Extended Release 12 Hour (Wellbutrin SR)Indications:Ana r depressive disorder, single episode, in partial remission (HCC) Take 1 Tablet by mouth daily. 100 Tablet 3 04/04/2023 Active buPROPion HCl ER (SR) 100 MG Oral Tablet Extended Release 12 Hour (Wellbutrin SR)Indications:Ana r depressive disorder, single episode, in partial remission (HCC) Take 1 Tablet by mouth in the morning. 100 Tablet 3 04/04/2023 Active Myrbetriq 50 MG Oral Tablet Extended Release 24 Hour (Mirabegron ER)Indications:Stre ss incontinence Take 1 Tablet by mouth in the morning. 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 Ex-smoker 09/03/2013 Routine general medical exam ination at a health care facility 12/17/2012 Overview: 01/06 JcBlair-CT chest angio WNL 10/06 EGD WNL. 01/06 EGD WNL. Consider gaviscon, Manometry 12/05 colonoscopy-5mm polyps--path---tubular adenoma. TRUONG 5 years 11/04 PFTs done. Some improvement w/albuterol. 08/04 TTE-mild delcid dysfunction 07/05 start lantus/novolog-refer MTM----, Psychiatrist. Sees Dr Sanders-Lawrence @[facility] [phone] IBS (irritable bowel syndrome) Stress incontinence Type 2 diabetes mellitus wit h hemoglobin A1c goal of less than 8.0% Overview: ICD-10 update of inactive term Myasthenia gravis Overview: 1999. Dx . Vocal cords. ENT in [facility] [place]. Chronic cough Central serous retinopathy Productive cough Overview: chronic Major depression in partial remission documented as of this encounter (statuses as of 08/07/2023) Resolved Problems Problem Noted Date Diagnosed Date Resolved Date Ocular migraine 05/12/2022 05/12/2022 Body mass index (BMI) of 50. 0 to 59.9 in adult 12/23/2016 07/03/2023 Overview: Per Obesity protocol #1 Endometrial carcinoma 11/12/20132022 Ovarian mass 12/17/2012 07/09/2013 Overview: S/p SANA BSO Endometrial thickening on ultrasound 12/17/2012 07/09/2013 Overview: ICD-10 update of inactive term Postmenopausal vaginal bleeding 12/17/2012 07/09/2013 Morbid obesity 12/26/2016 Overview: Per Obesity protocol #1 PMB (postmenopausal bleeding) 11/12/2013 Left knee injury 06/09/2023 Elevated WBC count 4 documented as of this encounter (statuses as of 08/07/2023) Immunizations Name Administration Dates Next Due COVID-19 mRNA, LNP-s, No Pre serve, 2-Dose Series ([employer]) 09/21/2020,05/22/2020 COVID-19, MRNA-LNP, 23-24, P F, 30 MCG/0.3 mL, 12 YRS AND ABOVE, IM ([facility]) 01/07/2023 Covid-19, Mrna, Lnp-s, Pf, B ivalent, 30 Mcg, IM, 12 yrs and above ([employer]) 05/09/2022 Pneumococcal Conjugate Vaccine, 20-valent (Prevn ar20) 05/09/2022 Pneumococcal Polysaccharide PPV23 (Pneumovax) RSV Vac., Bivalent, Perfusion F, Pf,0.5 Ml (Abry svo) 03/11/2023 Seasonal Influenza, Quadrivalent Hd (Fluzone Hd) 01/07/2023,05/09/2022 Seasonal Influenza, Quadrivalent, No Preserve, I M 03/23/2018,01/18/2015 Seasonal Influenza, Split, IIV3, With Preserve, Inj 02/02/2014,12/17/2012 TDAP (age 10 and older)(Boostrix) 01/07/2023, Varicella Zoster Vaccine (Adult) 01/18/2015 Zoster Vaccine Recombinant (Shingrix) 09/03/2022 ,05/09/2022 documented as of this encounter Social History Tobacco Use Types Packs/Day Years Used Date Smoking Tobacco: Former Cigarettes 1 25 Passive Smoke Exposure: Past Smokeless Tobacco: Former Quit: 12/17/1990 Comments:quit 1990 Alcohol Use Standard Drinks/Week Comments Yes 0 (1 standard drink = 0.6 oz pur e alcohol) occasional PHQ-2 Answer Date Recorded PHQ Adult Total Score 0 03/11/2023 Hunger Vital Sign Answer Date Recorded Within the past 12 months, y ou worried that your food would run out before you got the money to buy more. Never true 03/11/20 23 Within the past 12 months, t he food you bought just didn't last and you didn't have money to get more. Never true 03/11/2023 Sex and Gender Information Value Date Recorded Sex Assigned at Female 09/25/2022 9:34 PM EDT Gender Identity Female 09/25/2022 9:34 PM EDT Sexual Orientation Don't know 09/25/2022 9: 34 PM EDT Job Start Date Occupation Industry Not on file Not on file Not on file documented as of this encounter Miscellaneous Notes * Telephone Encounter - Mary Sung OSA - 08/07/2023 9:53 AM EDT Appt scheduled, pt aware. * Telephone Encounter - Aviva Rossi DO - 08/06/2023 4:44 PM EDT Referral placed. * Telephone Encounter - Michelle Tim LPN - 08/06/2023 2:29 PM EDT Call placed to patient for more information. Pt reports she is having back pain that radiates down both legs - Right leg more so than left leg. Denies fall. States the pain worsens with certain positions and movements; can go from 0- 8/10. Reports has been going on for awhile; over the past several weeks it is getting worse. Takes occasional Tylenol with minimal relief. Requesting referral to pain management. States she had a referral in the past, but cancelled the appt as she did not feel she needed it; feels like she needs it now. * Telephone Encounter - Mary Ny OSA - 08/06/2023 2:02 PM EDT Would like a referral to pain clinic Is having more pain when moving Please call documented in this encounter Plan of Treatment Upcoming Encounters Date Type Department Care Team (Late st Contact Info) Description 08/12/2023 2:30 PM EDT Office Visit Interventional [facility] Center, [facility] [address] [facility] [place] [address] Lisa Retana PA-C [address] [facility] [place] [address] 09/16/2023 9:40 AM EDT Office Visit Family Practice [address] [facility] [address] [facility] [place] [address] Aviva Rossi DO [address] [place] [address] 09/16/2023 11:15 AM EDT Imaging Radiology [facility] [address] [facility] [address] [place] [address] 11/11/2023 1:00 PM EDT Nurse Only Ancillary [address] [facility] [address] [place] [address] College, Nurse Annual Wellness Visit [address] [place] [address] Scheduled Procedures Name Priority Associated Diagnoses Date/Ti me COLONOSCOPY FLEXIBLE PROXIMA L DIAGNOSTIC Recall History of colonic polyps Scheduled Referrals Name Type Priority Associated Diagnoses Orde r Schedule PAIN MEDICINE REFERRAL OP Referral Within 10 days (routine) Lumbar radiculopathy L4-L5 disc bulge Ordered: 08/06/2023 Health Maintenance Due Date Last Done Comments Cologuard 1998 Fecal Occult Blood Test 1998 Sigmoidoscopy 1998 Mammogram 06/05/2023 06/04/2022, 09/17/2013 HbA1c 12/18/2023 06/17/2023, 12/22, 08/06/2022, Additional history exists Diabetic Eye Exam 01/22/2024 01/21/2023, , 11/21/2022, Additional history exists Albumin/Creatinine Ratio 06/16/2024 024, 06/04/2022, 04/27/2014, Additional history exists Diabetic Foot Exam 06/16/2024 06/17/2023, 0 05/09/2022, 11/08/2015, Additional history exists GFR 06/16/2024 06/17/2023, 12/22, 09/25/2022, Additional history exists TSH 06/16/2024 06/17/2023, 12/22, 11/14/2021 Lipid Panel 04/19/2027 04/19/2022, 10/22, 02/02/2014, Additional history exists Colonoscopy 02/06/2028 02/05/2023, 08/23, 11/26/2013 Colorectal Cancer Screening 02/06/2028 DXA Scan 05/21/2029 05/21/2022, 05/21/2022 DTaP,Tdap,and Td Vaccines (3 - Td or Tdap) 01/07/2033 01/07/2023, 12/17/2012 Pneumococcal Vaccine: 65+ Years Completed 05/09/2022, 07/09/2013 Zoster Vaccines Completed 09/03/2022, 04/24, 01/18/2015 COVID-19 Vaccine Completed 01/07/2023, , 09/21/2020, Additional history exists Influenza Vaccine (FLU shot) Completed 01/07/2023, 05/09/2022, 03/23/2018, Additional history exists RETIRED - COLONOSCOPY-EVERY 5 YRS AGES 18-100 Discontinued 02/05/2023, 09/18/2022, 11/26/2013 GARDASIL-HPV IMMUNIZATION SERIES Aged Out No longer eligible based on patient's age to complete this topic Hepatitis B Aged Out No longer eligi ble based on patient's age to complete this topic MENINGOCOCCAL (MENACTRA/MENVEO) Aged Out No longer eligible based on patient's age to complete this topic documented as of this encounter Medical Devices Not on filedocumented as of this encounter Visit Diagnoses Diagnosis Lumbar radiculopathy- Primary Thoracic or lumbosacral neuritis or radiculitis, unspecified L4-L5 disc bulge Displacement of lumbar intervertebral disc without myelopathy documented in this encounter Advance Directives Latest Code Status on File Code Status Date Activated Date Inactivated Comments Full Code 02/02/2013 11:15 AM 02/04/2013 12:33 AM T his order reflects the patients wishes and were consensually agreed upon. Code Status History Code Status Date Activated Date Inactivated Comments Full Code 02/02/2013 6:12 AM 02/02/2013 11:15 AM Th is order reflects the patients wishes and were consensually agreed upon. Care Teams Tile Sorter Relationship Specialty Start Date End Date Aviva Rossi DO [address] [place] [address] PCP - General Family Medicine 05/09/22 documented as of this encounter
--- OUTSIDE RECORDS SUMMARY | 2023-08-14 12:12 | External Medical Summary | Summary of Care ---
Author Name Unknown Organization [facility] Address [address] [place] [address] Phone [phone] Care Team Providers Care Co Founder And Chairman Name Role Phone Aviva Rossi DO Primary Care Provider Encounter Details Date Type Department Care Team (Late st Contact Info) Description 07/16/2023 Telephone Pulmonary Medicine, [facility] [address] [place] [address] Neetu Phillips DO [address] [place] [address] Allergies Active Allergy Reactions Criticality Noted Date Comments Codeine 11/20/2012 Nausea and vomiting Lisinopril 06/12/2015 ?cough Penicillin G 11/20/2012 Hives Hydrocodone-Acetaminophen 11/20/2012 Nausea and vomiting documented as of this encounter (statuses as of 07/16/2023) Medications Medication Sig Dispensed Refills Start Date [...] taking 30 units., Reported on 06/17/2023 Pen [place] 316" 31G X 5 MM Use daily to inject insulin 4 times daily 400 Each 1 11/27/2022 Active Insulin Glargine Solostar 100 UNIT/ML Subcutaneous Solution Pen-injectorIndicat ions:Diabetes mellitus with peripheral vascular disease (HCC),Type 2 diabetes mellitus with hemoglobin A1c goal of less than 8.0% ([facility]) Titrate down per titration schedule as starting [...] hemoglobin A1c goal of less than 8.0% ([facility]),Hypertension goal BP (blood pressure) < 140/90 TAKE [...] as of this encounter (statuses as of 07/16/2023) Active Problems Problem Noted Date Diagnosed Date [...] start lantus/novolog-refer MTM----, Psychiatrist. Sees Dr Sanders-Lawrence @[facility] [phone] IBS (irritable bowel syndrome) Stress incontinence Type 2 diabetes mellitus wit h hemoglobin A1c goal of less than 8.0% Overview: ICD-10 update of inactive term Myasthenia gravis Overview: 1999. Dx . Vocal cords. ENT in [facility]. Chronic cough Central serous retinopathy Productive cough Overview: chronic Major depression in partial remission documented as of this encounter (statuses as of 07/16/2023) Resolved Problems Problem Noted Date Diagnosed Date [...] as of this encounter (statuses as of 07/16/2023) Immunizations Name Administration Dates Next Due COVID-19 mRNA, LNP-s, No Pre serve, 2-Dose Series ([employer]) 09/21/2020,05/22/2020 COVID-19, MRNA-LNP, 23-24, P F, 30 MCG/0.3 mL, 12 YRS AND ABOVE, IM [facility] 01/07/2023 Covid-19, Mrna, Lnp-s, Pf, B ivalent, 30 Mcg, IM, 12 yrs and above ([employer]) 05/09/2022 Pneumococcal Conjugate Vaccine, 20-valent (Prevn ar20) [...] encounter Miscellaneous Notes * Telephone Encounter - Dianelys Isaac OSA - 07/16/2023 7:46 AM EDT Faxed adjustment CPAP order to [facility]. documented in this encounter Plan of Treatment Upcoming Encounters Date Type Department Care Team (Late st Contact Info) Description 09/16/2023 9:40 AM EDT Office Visit Family Practice 65 [facility] [address] [place] [address] Aviva Rossi DO [address] [place] [address] 09/16/2023 11:15 AM EDT Imaging Radiology [facility] [address] [facility] [address] [facility] [place] [address] 11/11/2023 1:00 PM EDT Nurse Only Ancillary 65 [facility] [address] [place] [address] College, Nurse Annual Wellness Visit [address] [address] Scheduled Procedures Name Priority Associated Diagnoses Date/Ti me COLONOSCOPY FLEXIBLE PROXIMA L DIAGNOSTIC Recall History of colonic polyps Health Maintenance Due Date Last Done Comments Mammogram 06/05/2023 06/04/2022, 09/17/2013 HbA1c 12/18/2023 06/17/2023, [...] 04/19/2027 04/19/2022, 10/22, 02/02/2014, Additional history exists COLONOSCOPY-EVERY 5 YRS AGES 18-100 02/06/2028 02/05/2023, 09/18/2022, 11/26/2013 DXA Scan 05/21/2029 05/21/2022, 05/21/2022 DTaP,Tdap,and Td Vaccines (3 - Td or Tdap) 01/07/2033 01/07/2023, 12/17/2012 Pneumococcal Vaccine: 65+ Years Completed 05/09/2022, 07/09/2013 Zoster Vaccines Completed 09/03/2022, 04/24, 01/18/2015 COVID-19 Vaccine Completed 01/07/2023, , 09/21/2020, Additional history exists Influenza Vaccine (FLU shot) Completed , 05/09/2022, 03/23/2018, Additional history exists GARDASIL-HPV IMMUNIZATION SERIES Aged Out No longer eligible based on patient's age to complete this topic Hepatitis B Aged Out No longer eligi ble based on patient's age to complete this topic MENINGOCOCCAL (MENACTRA/MENVEO) Aged Out No longer eligible based on patient's age to complete this topic documented as of this encounter Medical Devices Not on filedocumented as of this encounter Advance Directives Latest Code Status [...] and were consensually agreed upon. Care Teams Co Founder And Chairman Relationship Specialty Start Date End Date Aviva Rossi DO [address] [place] [address] PCP - General Family Medicine 05/09/22 documented as of this encounter
--- OUTSIDE RECORDS SUMMARY | 2023-08-14 12:12 | External Medical Summary | Summary of Care ---
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 Name Role Phone Aviva Rossi DO Primary Care Provider Encounter Details Date Type Department Care Team (Late st Contact Info) Description 07/11/2023 10:40 AM EDT Telemedicine Sleep Disorders Ctr [facility] [address] [place] [phone] Neetu Phillips DO [address] [place] [place] [phone] CATHERINE (obstructive sleep apnea)* Allergies Active Allergy Reactions Criticality Noted Date Comments Codeine 11/20/2012 Nausea and vomiting Lisinopril 06/12/2015 ?cough Penicillin G 11/20/2012 Hives Hydrocodone-Acetaminophen 11/20/2012 Nausea and vomiting documented as of this encounter (statuses as of 07/11/2023) Medications Medication Sig Dispensed Refills Start Date [...] MOUTH EVERY MORNING 200 Tablet 3 09/03/2022 09/03/19 24 Active Levothyroxine Sodium 50 MCG Oral Tablet (Levoxyl)Indication s:Acquired hypothyroidism TAKE 1 TABLET BY MOUTH DAILY AT LEAST 30 MINUTES PRIOR TO FIRST MEAL OF THE DAY OR OTHER MEDICATIONS 100 Tablet 3 08/06/2022 08/06/19 24 Active Atorvastatin Calcium 20 MG Oral Tablet (Lipitor) TAKE ONE TABLET BY MOUTH DAILY 100 Tablet 3 08/06/2022 08/06/19 24 Active Insulin Syringe-Needle U-100 30G X [...] taking 30 units., Reported on 06/17/2023 Pen Cadet 316" 31G X 5 MM Use daily to inject insulin 4 times daily 400 Each 1 11/27/2022 Active Insulin Glargine Solostar 100 UNIT/ML Subcutaneous Solution Pen-injectorIndicat ions:Diabetes mellitus with peripheral vascular disease (HCC),Type 2 diabetes mellitus with hemoglobin A1c goal of less than 8.0% ([facility]) Titrate down per titration schedule as [...] hemoglobin A1c goal of less than 8.0% (HCC),Hypertension goal BP (blood pressure) < 140/90 TAKE [...] as of this encounter (statuses as of 07/11/2023) Active Problems Problem Noted Date Diagnosed Date [...] start lantus/novolog-refer MTM----, Psychiatrist. Sees Dr Sanders-Lawrence @[facility] [phone] IBS (irritable bowel syndrome) Stress incontinence Type 2 diabetes mellitus wit h hemoglobin A1c goal of less than 8.0% Overview: ICD-10 update of inactive term Myasthenia gravis Overview: 1999. Dx . Vocal cords. ENT in [facility]. Chronic cough Central serous retinopathy Productive cough Overview: chronic Major depression in partial remission documented as of this encounter (statuses as of 07/11/2023) Resolved Problems Problem Noted Date Diagnosed Date [...] as of this encounter (statuses as of 07/11/2023) Immunizations Name Administration Dates Next Due COVID-19 mRNA, LNP-s, No Pre serve, 2-Dose Series ([facility]) 09/21/2020,05/22/2020 COVID-19, MRNA-LNP, 23-24, P F, 30 MCG/0.3 mL, 12 YRS AND ABOVE, IM ([facility]) 01/07/2023 Covid-19, Mrna, Lnp-s, Pf, B ivalent, 30 Mcg, IM, 12 yrs and above ([facility]) 05/09/2022 Pneumococcal Conjugate Vaccine, 20-valent (Prevn ar20) [...] on file documented as of this encounter Progress Notes * Neetu Phillips, DO - 07/11/2023 10:48 AM EDT Sleep Medicine Follow-Up Clinic Note TELEMEDICINE ENCOUNTER Patient location: HOME. I was in a hospital or clinic location. After connecting through [employer],patient was verified with two unique identifiers. Patient (or authorized legal representative phlebotomy services) was then informed that this was a Telemedicine visit and being conducted confidentially over secure lines. Methods to assure confidentiality were taken. Patient acknowledged consent and understanding of pr ivacy and security of the Telemedicine visit. The patient agreed to participate. 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 She is still has nocturia 1-3x/night. Denies significant leak, prolonged facial cheng from mask, aerophagia, dry eyes/nose/mouth, and feeling the pressure is too much or too little. Diagnostic Polysomnogram 01/15/23: BMI 52.35 REM sleep 16% TST AHI 6.1 (CMS/medicare criteria used) RDI 7.8 Min O2 76 % <89% O2 3.1 min(s) PLMI 63.4 PAP Compliance: Report date: 06/08/23 to 07/07/23 % total days used: 97% % days used > 4 hours: 80% Average hours a day: 5 hours 59 mins Large leak: 6.1 AHI: 0.6/hr 95% pressure: 6.5 cmH20 Equipment: DME Provider is [facility] 4-18 cmH20 Patient Active Problem List Diagnosis Code ADVANCE DIRECTIVE INFORMATION IBS (irritable bowel syndrome) K58.9 Stress incontinence N39.3 Type 2 diabetes mellitus with hemoglobin A1c goal of less than 8.0% ([facility]) E11.9 Myasthenia gravis ([facility]) G70.00 Chronic cough R05.3 Routine general medical examination at a health care facility Z00.00 Central serous retinopathy H35.719 Productive cough R05.8 Major depression in partial remission ([facility]) F32.4 Ex-smoker Z87.891 Microalbuminuric diabetic nephropathy ([facility]) E11.21 Other specified peripheral vascular diseases ([facility]) I73.89 Diabetes mellitus with peripheral vascular disease ([facility]) E11.51 Dyslipidemia E78.5 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 Current Facility-Administered Medications for the 07/11/23 encounter (Telemedicine) with Neetu Phillips DO Medication Albuterol Sulfate (Proventil) (2.5 MG/3ML) 0.083% inhalation solution 2.5 mg PHYSICAL EXAM: Unable to attain full exam due to nature of encounter Constitutional: Alert, oriented in no acute distress Skin: no markings on face where mask fits Chest: Normal respiratory effort at rest Neuro: Normal speech and comprehension Psych: Appropriate mood and affect ASSESSMENT/PLAN: Obstructive Sleep Apnea Encouraged continued use of PAP every night, all night and for naps. Adjust PAP range to 6-18 cmH20 Recommended routine cleaning and change of supplies as needed. Even a mild to moderate weight loss should result in significant improvement in the patients nocturnal respiratory events. Strenuous exercise, which activates the sympathetic nervous system (adrenaline system) not only helps with weight loss, glucose, and mood, but also improves sleep quality, and upper respiratory muscle tone during sleep. Avoid driving, operating heavy machinery or engaging in any activity that requires full alertness if feeling sleepy, drowsy or otherwise impaired. Follow-up with Sleep Medicine in 6 months. Neetu Phillips DO This visit was completed via real time teleheath video connection. All issues as above were discussed and addressed, and a limited physical exam was performed. If it was felt that the patient should be evaluated in clinic then they were directed there. The patient verbally consented to visit. I spent a total of 20-29 minutes (exact time 20 mins) on the date of service in preparation, delivery, and documentation of the care provided to Lisa Gamboa excluding any time spent in the performance of separately billed services. documented in this encounter Plan of Treatment Upcoming Encounters Date Type Department Care Team (Late st Contact Info) Description 09/16/2023 9:40 AM EDT Office Visit Family Practice [address] [facility] [address] [place] [address] Aviva Rossi DO [address] [place] [address] 09/16/2023 11:15 AM EDT Imaging Radiology [facility] [address] [facility] [place] [address] 11/11/2023 1:00 PM EDT Nurse Only Ancillary [address] [facility] [address] [place] [address] College, Nurse Annual Wellness Visit [address] [address] Scheduled Procedures Name Priority Associated Diagnoses Date/Ti [...] as of this encounter Visit Diagnoses Diagnosis CATHERINE (obstructive sleep apnea)- Primary Obstructive sleep apnea (adult) (pediatric) documented in this encounter Advance Directives Latest [...] and were consensually agreed upon. Care Teams Weapons System Instrument Mechanic Relationship Specialty Start Date End Date Aviva Rossi DO [address] [place] [address] PCP - General Family Medicine 05/09/22 documented as of this encounter
--- OUTSIDE RECORDS SUMMARY | 2023-08-14 12:12 | External Medical Summary | Summary of Care ---
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 [address] Referral ID Status Reason Start Date Expiration Date Visits Requested Visits Authorized [id number] Authorized Specialty Services Required 08/12/2023 [id number] Question Answer Referral Priority Within 10 days (routine) Where should this appointment be scheduled? External Comments Chronic low back pain, B LE radiculopathy Severe central spinal stenosis LE deconditioning Reason for Visit * Reason Comments Back Pain * Evaluate & Treat - Unlimited Visits (Within 10 days (routine)) - Authorized Specialty Diagnoses / Procedures Referred By Controddy amaya Referred To Contact Pain Management / Pain Medicine Diagnoses Lumbar radiculopathy L4-L5 disc bulge Aviva Rossi DO [address] [place] [address] Referral ID Status Reason Start Date Expiration Date Visits Requested Visits Authorized [id number] Authorized Specialty Services Required 08/06/[phone] Encounter Details Date Type Department Care Team (Late st Contact Info) Description 08/12/2023 2:30 PM EDT Office Visit [facility] [address] [place] [id number] Lisa Retana PA-C [address] [place] [address] Lumbar radicular pain*; Spinal stenosis of lumbar region with neurogenic claudication Allergies Active Allergy Reactions Criticality Noted Date Comments Codeine 11/20/2012 Nausea and vomiting Lisinopril 06/12/2015 ?cough Penicillin G 11/20/2012 Hives Hydrocodone-Acetaminophen 11/20/2012 Nausea and vomiting documented as of this encounter (statuses as of 08/12/2023) Medications Medication Sig Dispensed Refills Start Date End Date Status Magnesium Oxide 400 MG Oral Capsule Take 1 Capsule by mouth daily. Taking weekly 03/27/2021 Active Cyanocobalamin 1000 MCG Oral Tablet (Cyanocobalamin) Take 1 Tablet by mouth daily. 03/27/2021 Active Vision Formula Eye Health Oral Capsule Take 1 Capsule by mouth daily. 05/09/2022 Active Dexcom G6 Sensor Use as directed. Use as directed every 10 days to monitor blood sugars 06/20/2022 Active Potassium Chloride ER 10 MEQ Oral Tablet Extended Release Take 1 Tablet by mouth in the morning. 06/14/2022 Active Systane Complete PF 0.6 % Ophthalmic Solution (Propylene Glycol (PF)) Instill 1 Drop into eye as needed for Dry eyes. 09/03/2022 Active Furosemide 40 MG Oral Tablet (Lasix) Take 1 Tablet by mouth in the morning. 09/03/2022 Active Famotidine 20 MG Oral Tablet [...] taking 30 units., Reported on 06/17/2023 Pen Sinclair 316" 31G X 5 MM Use daily to inject insulin 4 times daily 400 Each 1 11/27/2022 Active Insulin Glargine Solostar 100 UNIT/ML Subcutaneous Solution Pen-injectorIndicat ions:Diabetes mellitus with peripheral vascular disease (HCC),Type 2 diabetes mellitus with hemoglobin A1c goal of less than 8.0% (HCC) Titrate down per titration schedule as starting Xultophy. Pt reports she is currently taking 8 units. 11/27/2022 Active FLUoxetine HCl 20 MG Oral [...] as of this encounter (statuses as of 08/12/2023) Active Problems Problem Noted Date Diagnosed Date [...] start lantus/novolog-refer MTM----, Psychiatrist. Sees Dr Sanders-Lawrence @[facility] [phone] IBS (irritable bowel syndrome) Stress incontinence Type 2 diabetes mellitus wit h hemoglobin A1c goal of less than 8.0% Overview: ICD-10 update of inactive term Myasthenia gravis Overview: 1999. Dx . Vocal cords. ENT in [place]. Chronic cough Central serous retinopathy Productive cough Overview: chronic Major depression in partial remission documented as of this encounter (statuses as of 08/12/2023) Resolved Problems Problem Noted Date Diagnosed Date [...] as of this encounter (statuses as of 08/12/2023) Immunizations Name Administration Dates Next Due COVID-19 mRNA, LNP-s, No Pre serve, 2-Dose Series (Trulioo) 09/21/2020,05/22/2020 COVID-19, MRNA-LNP, 23-24, P F, 30 MCG/0.3 mL, 12 YRS AND ABOVE, IM (PFIZER-Comirnaty) 01/07/2023 Covid-19, Mrna, Lnp-s, Pf, B ivalent, 30 Mcg, IM, 12 yrs and above (Pfizer) 05/09/2022 Pneumococcal Conjugate Vaccine, 20-valent (Prevn ar20) [...] as of this encounter Progress Notes * Lisa Retana PA-C - 08/12/2023 2:38 PM EDT GENERAL HISTORY & PHYSICAL EXAMINATION - Anesthesia and Pain Service Name: Lisa Gamboa Location: [facility] REFERRING PHYSICIAN: Aviva Rossi, Thank you for referring Lisa Gamboa. CHIEF COMPLAINT: Low back and LE pain HPI: Lisa Gamboa is a 68 year old female who complains of bilateral low back pain that radiatesto buttock, posterior/lateral thigh and calf R > L. LE is more bothersome than low back pain. Low back pain started more than thirty years ago. Admits increased pain in the past month without preceding injury. Tried physical therapy a number of years ago, no lasting improvement. Followed with PCP for this complaint initially declined referral to our clinic but reconsidered after recent exacerbation. Mild relief with medications. Symptoms occur daily. Describes pain as "shooting" into LE. Pain is constant, rated 4/10 on average, can increase to 8/10 at worst. Aggravating factors include: getting out of bed, transitional movement. Alleviating factors include: changing positions. Admits associated paresthesia, known peripheral neuropathy. Baseline weakness B LE, using wheelchair while in clinic, does also have cane. Denies bowel or bladder incontinence. Denies hx spine surgery or injections. Pain is affecting ADL. Reviewed L spine MRI Nov 2022 - severe central stenosis L4/5 with grade 1 listhesis and severe B foraminal narrowing, mild foraminal narrowing L5/S1, no acute compression changes. Consider PT, although concerned for transportation. Significant past medical hx includes: DM type II, IBS, myasthenia gravis, depression, ADHD, morbid obesity. Current medications used for pain: tylenol, ibuprofen. Anticoagulation therapy: no Diabetic: yes, most recent HbA1c 6.23 May 2023 +++ insomnia, mood change with high dose oral steroid. Injections into wrist also made her irritable although this was number of years ago Current psych medications managed with Dr. Rossi. Patient ?s risperidone after injection. PAST MEDICAL HISTORY: 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 Chronic cough DM (diabetes mellitus) (HCC) Elevated WBC count 80s Endometrial cancer (HCC) Ex-smoker 09/03/2013 IBS (irritable bowel syndrome) Left knee injury meniscus tear, medial condyle fracutre Major depression in partial remission (HCC) Microalbuminuric diabetic nephropathy (HCC) 04/28/2014 Morbid obesity (HCC) Myasthenia gravis (HCC) Ocular migraine Productive cough chronic PSVT (paroxysmal supraventricular tachycardia) ([facility]) 80s due to albuterol, theophylline Pyelonephritis 2x hospital Sleep apnea Sleep apnea, obstructive Stress incontinence Past Medical History - Pertinent Findings: (-) clotting disorder PAST SURGICAL HISTORY: Past Surgical History: Procedure Laterality Date , INDUCED BY D&C COLONOSCOPY, DIAGNOSTIC (RECTUM) N/A 09/18/2022 hemorrhoids/multiple polyps/biopsies show adenomatous and tubulovillous adenoma/recall 3 months/colonoscopy/[place] DENTAL SURGERY PROCEDURE NEC EGD, FLEXIBLE, DIAGNOSTIC 09/27/2015 normal/[facility] LAPAROSCOPY TOTAL HYSTX, UTERUS 250GM OR LESS TUBE/OVARY 02/02/2013 LAPAROSCOPIC HYSTERECTOMY REMOVAL TUBES AND OVARIES FOR UTERUS 250GM OR LESS performed by Elizabeth Phillips DO at OR [facility] FAMILY HISTORY: Family History Problem Relation Name Age of Onset Glaucoma Mother Heart Disorder Mother Allergies Mother PCN, sulfa Arthritis Mother DJD, Spondylolisthesis Renal Hx Mother h/o pyelonephritis Eye Problems Mother Wet ARMD Heart Disorder Father Afib Stroke Father Demented Hypertension Father late onset Neurological Disorder Father Vascular Dementia Stroke Grandmother (Maternal) Stroke Grandfather (Maternal) Hypertension Grandmother (Paternal) Neurological Disorder Grandfather (Paternal) Parkinson's Breast Cancer No significant family history Family History - Pertinent Findings: (-) clotting disorder SOCIAL HISTORY: Social History Tobacco Use Smoking status: Former Current packs/day: 1.00 Average packs/day: 1 pack/day for 25.0 years (25.0 ttl pk-yrs) Types: Cigarettes Passive exposure: Past Smokeless tobacco: Former Quit date: 12/17/1990 Tobacco comments: quit 1990 Vaping Use Vaping status: Never Used Substance Use Topics Alcohol use: Yes Comment: occasional Drug use: No CURRENT MEDICATIONS: Note that discontinued and completed medications (per the MAR) continue to display for 24 hours. Ordered medications to be given in the future also display. Current Outpatient Medications Medication Sig Dispense Refill Magnesium Oxide 400 MG Oral Capsule Take 1 Capsule by mouth daily. Taking weekly Cyanocobalamin 1000 MCG Oral Tablet (Cyanocobalamin) Take 1 Tablet by mouth daily. Vision Formula Eye Health Oral Capsule Take 1 Capsule by mouth daily. Potassium Chloride ER 10 MEQ Oral Tablet Extended Release Take 1 Tablet by mouth in the morning. Systane Complete PF 0.6 % Ophthalmic Solution (Propylene Glycol (PF)) Instill 1 Drop into eye as needed for Dry eyes. Furosemide 40 MG Oral Tablet (Lasix) Take 1 Tablet by mouth in the morning. Famotidine 20 MG Oral Tablet (Pepcid) TAKE ONE TABLET BY MOUTH EVERY MORNING 200 Tablet 3 Levothyroxine Sodium 50 MCG Oral Tablet (Levoxyl) TAKE 1 TABLET BY MOUTH DAILY AT LEAST 30 MINUTES PRIOR TO FIRST MEAL OF THE DAY OR OTHER MEDICATIONS 100 Tablet 3 Atorvastatin Calcium 20 MG Oral Tablet (Lipitor) TAKE ONE TABLET BY MOUTH DAILY 100 Tablet 3 NovoLOG FlexPen 100 UNIT/ML Subcutaneous Solution Pen-injector (insulin aspart) INJECT WITH WITH EACH MEAL PER CARB RATIO 1:7 AND CORRECTION FACTOR 1:20>120 MAX DAILY DOSE 35 UNITS 30 mL 3 Xultophy 100-3.6 UNIT-MG/ML Subcutaneous Solution Pen-injector (Insulin Degludec-Liraglutide) Inject up to 50 units daily subcutaneously as directed per titration schedule (Patient taking differently: Inject up to 50 units daily subcutaneously as directed per titration schedule. Pt reports she is currently only taking 30 units.) 45 mL 3 FLUoxetine HCl 20 MG Oral Capsule (PROzac) Take 1 Capsule by mouth in the morning. 100 Capsule 3 FLUoxetine HCl 40 MG Oral Capsule (PROzac) Take 1 Capsule by mouth in the morning. 100 Capsule 3 ProAir HFA 108 (90 Base) MCG/ACT Inhalation Aerosol Solution Inhale 2 Puffs by mouth 4 times a day as needed for Dyspnea. 54 g 1 Losartan Potassium 100 MG Oral Tablet (Cozaar) TAKE ONE TABLET BY MOUTH EVERY DAY 90 Tablet 1 buPROPion HCl ER (SR) 150 MG Oral Tablet Extended Release 12 Hour (Wellbutrin SR) Take 1 Tablet by mouth daily. 100 Tablet 3 buPROPion HCl ER (SR) 100 MG Oral Tablet Extended Release 12 Hour (Wellbutrin SR) Take 1 Tablet by mouth in the morning. 100 Tablet 3 Myrbetriq 50 MG Oral Tablet Extended Release 24 Hour (Mirabegron ER) Take 1 Tablet by mouth in the morning. 90 Tablet 3 Dexcom G6 Sensor Use as directed. Use as directed every 10 days to monitor blood sugars Insulin Syringe-Needle U-100 30G X 5/16" 0.3 ML USE TO INJECT TWO TO THREE TIMES DAILY 300 Each 3 Pen Sinclair 3/16" 31G X 5 MM Use daily to inject insulin 4 times daily 400 Each 1 Insulin Glargine Solostar 100 UNIT/ML Subcutaneous Solution Pen-injector Titrate down per titrationschedule as starting Xultophy. Pt reports she is currently taking 8 units. Current Facility-Administered Medications Medication Dose Route Frequency Provider Last Rate Last Admin Albuterol Sulfate (Proventil) (2.5 MG/3ML) 0.083% inhalation solution 2.5 mg 2.5 mg Nebulizer Once PRN Aviva Rossi DO ALLERGIES: Codeine, Lisinopril, Penicillin g, and Vicodin [hydrocodone-acetaminophen] ROS: Constitutional: Negative for fatigue, fever, appetite change, unexplained weight loss. ENT: Negative for hearing loss, sore throat. Respiratory: Negative for cough, shortness of breath, dyspnea. Musculoskeletal: Negative for neck, mid-back pain. + low back and LE pain - see HPI Neurological: Negative for headaches, seizures. + paresthesias B LE - see HPI Genitourinary: Negative for dysuria, urinary frequency, hematuria. Hematologic/ Lymphatic: Negative for easy bleeding, bruising, lymphadenopathy. Gastrointestinal: Negative for abdominal pain, nausea, vomiting, constipation, diarrhea. Cardiovascular: Negative for chest pain, palpitations, ankle swelling, orthopnea. PHYSICAL EXAMINATION: Most Recent Vital Signs: There were no vitals filed for this visit. General Appearance: Patient appears to be about stated age, pleasant and cooperative with normal affect. Morbidly obese. HEENT: head normocephalic and pupils equal round and reactive to light and accommodation, EOMI Chest: No gross abnormality. Nonlabored breathing. Lumbar Spine: Normal lumbar lordatic curvature is present. Skin is intact without gross abnormalities. No masses palpable. Midline, B paravertebral musculature and B sacroiliac joint nontender. No evidence of myofascial trigger points. Lower Extremity Strength: Hip Flexion 5/5 bilaterally. Hip Abductor 5/5 bilaterally. Hip Adductor 5/5 bilaterally. Extensor Hallicus Longus 5/5 bilaterally. Deep Tendon Reflex: Patellar: 2/4 bilaterally. Achilles: 1/4 bilaterally. Low Back Provocative Testing: OBIE test: negative bilaterally. Straight Leg Raise Test: negative bilaterally. Sensation: Dermatomal sensation not formally tested. Grossly normal and symmetric unless otherwise specified. Gait:Ambulates with assistance. IMAGING: MRI LUMBAR SPINE WITHOUT CONTRAST 12/11/22 Vertebral body height is maintained. There is no bone marrow signal abnormality. There is no spinal cord signal abnormality or cauda equina thickening. The conus medullaris terminates at the L1 level. T12-L1: No significant degenerative disc disease or spinal canal or neuroforaminal stenosis. L1-L2: No significant degenerative disc disease or spinal canal or neuroforaminal stenosis. L2-L3: No significant degenerative disc disease or spinal canal or neuroforaminal stenosis. L3-L4: There is diffuse disc bulge and bilateral facet hypertrophy with associated mild narrowing of the spinal canal and mild bilateral neuroforaminal stenosis. L4-L5: There is grade 1 anterolisthesis of L4 on L5 with uncovering of the disc, diffuse disc bulge, bilateral facet and ligamentum flavum hypertrophy with associated marked narrowing of the spinal canal and marked bilateral neuroforaminal stenosis. L5-S1: There is diffuse disc bulge and bilateral facet hypertrophy with associated mild bilateral neuroforaminal stenosis. The visualized paravertebral musculature demonstrates mild fatty infiltration. IMPRESSION: Multilevel degenerative disc disease, greatest at the L4-5 level where results in marked narrowing of the spinal canal and marked bilateral neuroforaminal stenosis. ASSESSMENT: Lumbar spinal stenosis with neurogenic claudication Lumbar radicular pain Peripheral neuropathy PLAN: Chronic low back pain with progressive B LE pain x's two months despite medication management. Neurologically intact. Reviewed L spine MRI Nov 2022 - severe central stenosis L4/5 with grade 1 listhesis and severe B foraminal narrowing, mild foraminal narrowing L5/S1, no acute compression changes. D iscussed AUSTEN using fluoroscopy. Risks including, but not limited to epidural hematoma, infection, worsening pain, failure to alleviate pain, nerve injury and possible steroid side effects were reviewed. Aware of potential mood changes - recommend speaking with PCP regarding possible changes to moodmedications prior to our injection. Pre-procedure instructions reviewed - needs spike driver, stop ibuprofen three days prior. Due to severity and duration of symptoms, will schedule interlaminar AUSTEN L5/S1. Physical therapy referral placed. She will contact PT clinic directly to schedule. Defer surgical consultation at this time, likely not candidate for elective procedure in light of body habitus. Lisa Retana PA-C 08/12/2023 documented in this encounter Nursing Notes * Pearl Mckeon LPN - 08/12/2023 2:36 PM EDT Patient here for low back pain for years, shooting pains in lower ext Difficulty with standing No PT-did in No hx of spine surgery or inj's MRI in chart documented in this encounter Plan of Treatment Upcoming Encounters Date Type Department Care Team (Latest Contact Info) Description 09/16/2023 9:40 AM EDT Office Visit Family Practice [address] [place] [address] [place] [address] Aviva Rossi, DO [address] [place] [address] 09/16/2023 11:15 AM EDT Imaging Radiology [address] [place] [address] 10/24/2023 10:55 AM EDT Hospital Encounter OR [facility], Operating Room [facility] [address] [place] [phone] [facility], [address] [place] [phone] 10/24/2023 10:55 AM EDT - 10/24/2023 11:20 AM EDT Surgery OR [facility], Operating Room [facility] [address] [place] [id number] [facility], [address] [place] [phone] INJECTION SPINE LUMBAR OR SACRAL 11/11/2023 1:00 PM EDT Nurse Only Ancillary [address] [place] [address] [place] [address] College, Nurse Annual Wellness Visit [address] [facility] [address] [place] [address] Scheduled Orders Name Type Priority Associated Diagnoses Orde r Schedule INJECT DX/THER SUBSTANCE INTERLAMINAR LUMBAR/SACRAL W IMAGE GUIDE Procedures Routine Lumbar radicular pain Spinal stenosis of lumbar region with neurogenic claudication Expected: 09/12/2023, Expires: 09/11/2024 Scheduled Procedures Name Priority Associated Diagnoses Date/Ti me INJECTION SPINE LUMBAR OR SACRAL Lumbar radiculopathy 10/24/2023 10:55 AM EDT COLONOSCOPY FLEXIBLE PROXIMAL DIAGNOSTIC Recall History of colonic polyps Scheduled Referrals Name Type Priority Associated Diagnoses Orde r Schedule PHYSICAL THERAPY REFERRAL OP Referral Within 10 days (routine) Lumbar radicular pain Spinal stenosis of lumbar region with neurogenic claudication Ordered: 08/12/2023 Health Maintenance Due Date Last Done Comments Cologuard 1998 Fecal Occult Blood Test 1998 Sigmoidoscopy 1998 COVID-19 Vaccine ( season) 2023 01/07/2023, 05/09/2022, 09/21/2020, Additional history exists Mammogram 06/05/2023 06/04/2022, 09/17/2013 HbA1c 12/18/2023 06/17/2023, [...] 07/09/2013 Zoster Vaccines Completed 09/03/2022, 04/24, 01/18/2015 Influenza Vaccine (FLU shot) Completed 01/07/2023, 05/09/2022, [...] of this encounter Visit Diagnoses Diagnosis Lumbar radicular pain- Primary Thoracic or lumbosacral neuritis or radiculitis, unspecified Spinal stenosis of lumbar region with neurogenic claudication Spinal stenosis, lumbar region, with neurogenic claudication Lumbar radiculopathy Thoracic or lumbosacral neuritis or radiculitis, unspecified documented in this encounter Advance Directives * Full Code (Latest Code Status on File) Date Activated Date Inactivated Comments 02/02/2013 11:15 AM 02/04/2013 12:33 AM This ord er reflects the patients wishes and were consensually agreed upon. * Full Code Date Activated Date Inactivated Comments 02/02/2013 6:12 AM 02/02/2013 11:15 AM This orde r reflects the patients wishes and were consensually agreed upon. 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
--- OUTSIDE RECORDS SUMMARY | 2023-08-14 12:13 | External Medical Summary | Summary of Care ---
Author Name Unknown Organization [facility] Address [address] [place] [address] Phone [phone] Care Team Providers Care Hadoop Analyst Name Role Phone Aviva Toussaint DO Primary Care Provider [phone] Reason for Visit * Reason Onset Date Comments Medication Refill 04/04/2023 Encounter Details Date Type Department Care Team (Late st Contact Info) Description 04/04/2023 Refill Family Practice [address] [place] [address] [place] [address] Aviva Toussaint DO [address] [place] [address] Major depressive disorder, single episode, in partial remission (HCC) Allergies Active Allergy Reactions Criticality Noted Date Comments Codeine 11/20/2012 Nausea and vomiting Lisinopril 06/12/2015 ?cough Penicillin G 11/20/2012 Hives Hydrocodone-Acetaminophen 11/20/2012 Nausea and vomiting documented as of this encounter (statuses as of 04/10/2023) Medications Medication Sig Dispensed Refills Start Date End Date Status Magnesium Oxide 400 MG Oral Capsule Take 1 Capsule by mouth daily. 0 2 Active Cyanocobalamin 1000 MCG Oral Tablet (Cyanocobalamin) Take 1 Tablet by mouth daily. 0 2 Active Vision Formula Eye Health Oral Capsule Take 1 Capsule by mouth daily. 0 3 Active Dexcom G6 Sensor Use as directed. Use as directed every 10 days to monitor blood sugars 0 3 Active Potassium Chloride ER 10 MEQ Oral Tablet Extended Release Take 1 Tablet by mouth in the morning. 0 3 Active Systane Complete PF 0.6 % Ophthalmic Solution (Propylene Glycol (PF)) Instill 1 Drop into eye as needed for Dry eyes. 0 3 Active Furosemide 40 MG Oral Tablet (Lasix) Take 1 Tablet by mouth in the morning. 0 3 Active Famotidine 20 MG Oral Tablet (Pepcid)Indications :Gastroesophageal reflux disease, unspecified whether esophagitis present TAKE ONE TABLET BY MOUTH EVERY MORNING 200 Tablet 3 3 09/03/19 24 Active Levothyroxine Sodium 50 MCG Oral Tablet (Levoxyl)Indication s:Acquired hypothyroidism TAKE 1 TABLET BY MOUTH DAILY AT LEAST 30 MINUTES PRIOR TO FIRST MEAL OF THE DAY OR OTHER MEDICATIONS 100 Tablet 3 3 08/06/19 24 Active Atorvastatin Calcium 20 MG Oral Tablet (Lipitor) TAKE ONE TABLET BY MOUTH DAILY 100 Tablet 3 3 08/06/19 24 Active Insulin Syringe-Needle U-100 30G X 5/16" 0.3 ML USE TO INJECT TWO TO THREE TIMES DAILY 300 Each 3 3 07/17/19 24 Active NovoLOG FlexPen 100 UNIT/ML Subcutaneous Solution Pen-injector (insulin aspart) INJECT WITH WITH EACH MEAL PER CARB RATIO 1:7 AND CORRECTION FACTOR 1:20>120 MAX DAILY DOSE 35 UNITS 30 mL 3 3 Active Xultophy 100-3.6 UNIT-MG/ML Subcutaneous Solution Pen-injector (Insulin Degludec-Liraglutid e) Inject up to 50 units daily subcutaneously as directed per titration schedule 45 mL 3 3 Active Pen Winger 06/06" 31G X 5 MM Use daily to inject insulin 4 times daily 400 Each 1 3 Active Insulin Glargine Solostar 100 UNIT/ML Subcutaneous Solution Pen-injectorIndicat ions:Diabetes mellitus with peripheral vascular disease (HCC),Type 2 diabetes mellitus with hemoglobin A1c goal of less than 8.0% (HCC) Titrate down per titration schedule as starting Xultophy 0 3 Active Myrbetriq 50 MG Oral Tablet Extended Release 24 Hour (Mirabegron ER) Take 1 Tablet by mouth in the morning. 90 Tablet 3 3 Active FLUoxetine HCl 20 MG Oral Capsule (PROzac)Indications :Major depressive disorder, single episode, in partial remission (HCC) Take 1 Capsule by mouth in the morning. 100 Capsule 3 3 Active FLUoxetine HCl 40 MG Oral Capsule (PROzac)Indications :Major depressive disorder, single episode, in partial remission (HCC) Take 1 Capsule by mouth in the morning. 100 Capsule 3 3 Active ProAir HFA 108 (90 Base) MCG/ACT Inhalation Aerosol SolutionIndications :Shortness of breath,History of asthma Inhale 2 Puffs by mouth 4 times a day as needed for Dyspnea. 54 g 1 3 Active buPROPion HCl ER (SR) 150 MG Oral Tablet Extended Release 12 Hour (Wellbutrin SR)Indications:Ana r depressive disorder, single episode, in partial remission (HCC) Take 1 Tablet by mouth daily. 100 Tablet 3 4 Active buPROPion HCl ER (SR) 100 MG Oral Tablet Extended Release 12 Hour (Wellbutrin SR)Indications:Ana r depressive disorder, single episode, in partial remission (HCC) Take 1 Tablet by mouth in the morning. 100 Tablet 3 4 Active buPROPion HCl ER (SR) 150 MG Oral Tablet Extended Release 12 Hour (Wellbutrin SR)Indications:Ana r depressive disorder, single episode, in partial remission (HCC) Take 1 Tablet by mouth daily. 90 Tablet 0 3 04/04/19 24 Discontinu ed(Refill) buPROPion HCl ER (SR) 100 MG Oral Tablet Extended Release 12 Hour (Wellbutrin SR)Indications:Ana r depressive disorder, single episode, in partial remission (HCC) Take 1 Tablet by mouth in the morning. 90 Tablet 0 3 04/04/19 24 Discontinu ed(Refill) Losartan Potassium 100 MG Oral Tablet (Cozaar)Indications :Type 2 diabetes mellitus with hemoglobin A1c goal of less than 8.0% (HCC),Hypertension goal BP (blood pressure) < 140/90 TAKE ONE TABLET BY MOUTH EVERY DAY 90 Tablet 0 3 04/04/19 24 Discontinu ed(Refill) Hospital, Clinic, or Other Facility Administered Medication Ordered Dose Route Frequency Start Date End Date Status Albuterol Sulfate (Proventil) (2.5 MG/3ML) 0.083% inhalation solution 2.5 mgIndications:Shortness of breath,History of asthma 2.5 mg NEBULIZER ONCE PRN 01/07/2023 01/07/2024 Active documented as of this encounter (statuses as of 04/10/2023) Active Problems Problem Noted Date Diagnosed Date Dyslipidemia 10/04/2022 Diabetes mellitus with peripheral vascular disea se 08/06/2022 Other specified peripheral vascular diseases Body mass index (BMI) of 50.0 to 59.9 in adult 1 Overview: Per Obesity protocol #1 Microalbuminuric diabetic nephropathy 04/28/2014 ADVANCE DIRECTIVE INFORMATION 11/12/2013 Overview: No, Advance Directive brochure given to patient at prior appointment. Ex-smoker 09/03/2013 Routine general medical exam ination at a [facility] care facility 12/17/2012 Overview: 01/06 JcBlair-CT chest angio WNL 10/06 EGD WNL. 01/06 EGD WNL. Consider gaviscon, Manometry 12/05 colonoscopy-5mm polyps--path---tubular adenoma. TRUONG 5 years 11/04 PFTs done. Some improvement w/albuterol. 08/04 TTE-mild delcid dysfunction 07/05 start lantus/novolog-refer MTM----, Psychiatrist. Sees Dr Sanders-Lawrence @[facility] [phone] IBS (irritable bowel syndrome) Stress incontinence Type 2 diabetes mellitus wit h hemoglobin A1c goal of less than 8.0% Overview: ICD-10 update of inactive term Myasthenia gravis Overview: 1998. Dx . Vocal cords. ENT in [place]. Chronic cough Central serous retinopathy Productive cough Overview: chronic Left knee injury Major depression in partial remission Elevated WBC count documented as of this encounter (statuses as of 04/10/2023) Resolved Problems Problem Noted Date Diagnosed Date Resolved Date Ocular migraine 05/12/2022 05/12/2022 Endometrial carcinoma 11/12/20132022 Ovarian mass 12/17/2012 07/09/2013 Overview: S/p SANA BSO Endometrial thickening on ultrasound 12/17/2012 07/09/2013 Overview: ICD-10 update of inactive term Postmenopausal vaginal bleeding 12/17/2012 07/09/2013 Morbid obesity 12/26/2016 Overview: Per Obesity protocol #1 PMB (postmenopausal bleeding) 11/12/2013 documented as of this encounter (statuses as of 04/10/2023) Immunizations Name Administration Dates Next Due COVID-19 mRNA, LNP-s, No Pre serve, 2-Dose Series ([employer]) 09/21/2020,05/22/2020 COVID-19, MRNA-LNP, 23-24, P F, 30 MCG/0.3 mL, 12 YRS AND ABOVE, IM ([employer]) 01/07/2023 Covid-19, Mrna, Lnp-s, Pf, B ivalent, 30 Mcg, IM, 12 yrs and above ([employer]) 05/09/2022 Pneumococcal Conjugate Vaccine, 20-valent (Prevn ar20) [...] Miscellaneous Notes * Telephone Encounter - Mary Holloway CPhT - 04/10/2023 3:41 PM EST Pt calling to request buPROPion HCl ER (SR) 150 MG Oral Tablet Extended Release 12 Hour (Wellbutrin SR) . Informed pt that RX is available at their pharmacy. Pt verbalized understanding and stated they will check with their pharmacy regarding this medication. Thank you, Mary Holloway [facility] ([facility]) 04/10/2023,3:41 PM * Telephone Encounter - Aviva Toussaint DO - 04/04/2023 5:27 PM ESTSigned Prescriptions: Disp Refills buPROPion HCl ER (SR) 150 MG Oral Tablet E*100 Ta*3 Sig: Take 1 Tablet by mouth daily. Authorizing Provider: AVIVA TOUSSAINT buPROPion HCl ER (SR) 100 MG Oral Tablet E*100 Ta*3 Sig: Take 1 Tablet by mouth in the morning. Authorizing Provider: AVIVA TOUSSAINT * Telephone Encounter - Gaby Leahy, [facility] - 04/04/2023 4:40 PM ESTPending Prescriptions: Disp Refills buPROPion HCl ER (SR) 150 MG Oral Tablet E*100 Ta*3 Sig: Take 1 Tablet by mouth daily. buPROPion HCl ER (SR) 100 MG Oral Tablet E*100 Ta*3 Sig: Take 1 Tablet by mouth in the morning. * Telephone Encounter - Gaby Leahy, [facility] - 04/04/2023 4:39 PM EST Did you pend patient's preferred pharmacy and medication before forwarding?yes Pharmacy: [facility] Pending Prescriptions: Disp Refills buPROPion HCl ER (SR) 150 MG Oral Tablet *90 Tab*0 Sig: Take 1 Tablet by mouth daily. buPROPion HCl ER (SR) 100 MG Oral Tablet *90 Tab*0 Sig: Take 1 Tablet by mouth in the morning. Last Visit: 03/11/2023 (in office), 08/27/2022 (telemedicine) Next Visit: 06/17/2023 If no future appointments scheduled, and last appointment is greater than a year ago, please schedule patient for a follow-up appointment Last date the medication was ordered: 05/09/22 Is this request for a controlled substance?No Urine Drug Screen:No results found for this or any previous visit. Patient Phone Numbers [place] [phone] Labs: Lab Results Component Value Date/Time CREAT 1.1 (H) 01/07/2023 12:37 PM CREAT 0.8 12/28/2015 12:00 AM CREAT 0.8 06/03/2015 01:55 PM POTASSIUM 4.7 01/07/2023 12:37 PM POTASSIUM 3.9 12/28/2015 12:00 AM POTASSIUM 4.3 06/03/2015 01:55 PM TSH 4.35 (H) 01/07/2023 12:37 PM LDLCALC 100 04/19/2022 08:26 AM LDLCALC 96 11/08/2015 10:50 AM LDLDIRECT NOT APPLICABLE 11/08/2015 10:50 AM ALT 11 04/19/2022 08:26 AM ALT 22 12/28/2015 12:00 AM ALT 25 05/16/2015 03:55 PM HGBA1C 6.5 (H) 01/07/2023 12:37 PM HGBA1C 9.8 (H) 11/08/2015 10:50 AM documented in this encounter Plan of Treatment Upcoming Encounters Date Type Department Care Team (Late st Contact Info) Description 06/17/2023 8:40 AM EDT Office Visit Family Practice [address] [facility] [address] [place] [address] Aviva Toussaint, [address] [place] [address] 07/11/2023 10:40 AM EDT Telemedicine [facility] [address] [facility] [place] [phone] Neetu Phillips, [address] [facility] [place] [id number] 11/11/2023 1:00 PM EDT Nurse Only Ancillary [address] [facility] [address] [facility], [place] [address] College, Nurse Annual Wellness Visit [address] [place] [address], [place] [address] Scheduled Procedures Name Priority Associated Diagnoses Date/Ti me COLONOSCOPY FLEXIBLE PROXIMA L DIAGNOSTIC Recall History of colonic polyps Health Maintenance Due Date Last Done Comments Hepatitis B (1 of 3 - Risk 3-dose series) 2013 Diabetic Foot Exam 05/09/2023 05/09/2022, 0 11/08/2015, 10/12/2014, Additional history exists Albumin/Creatinine Ratio 06/05/2023 023, 04/27/2014, 09/03/2013 Mammogram 06/05/2023 06/04/2022, 09/17/2013 HbA1c 07/09/2023 01/07/2023, 07/22, 04/19/2022, Additional history exists Diabetic Eye Exam 11/22/2023 11/21/2022, , 05/20/2022, Additional history exists GFR 01/08/2024 01/07/2023, 07/0 07/2022, 08/06/2022, Additional history exists TSH 01/08/2024 01/07/2023, 11/14/2021 Depression Screening 03/11/2024 03/11/2023 Lipid Panel 04/19/2027 04/19/2022, 10/22, 02/02/2014, Additional history exists COLONOSCOPY-EVERY 5 YRS AGES 18-100 02/06/2028 02/05/2023, 09/18/2022, 11/26/2013 DXA Scan 05/21/2029 05/21/2022 DTaP,Tdap,and Td Vaccines (3 - Td [...] as of this encounter Visit Diagnoses Diagnosis Major depressive disorder, single episode, in partial remission (HCC) Major depressive disorder, single episode, in partial or unspecified remission documented in this encounter Advance Directives Latest [...] and were consensually agreed upon. Care Teams Hadoop Analyst Relationship Specialty Start Date End Date Aviva Toussaint DO [address] [place] [address] PCP - General Family Medicine 05/09/22 documented as of this encounter
--- OUTSIDE RECORDS SUMMARY | 2023-08-14 12:13 | External Medical Summary ---
Author Name Unknown Address Unknown Organization [id number]:[facility] - [address] [place] [address] Laboratory Report Ordering Provider Test Date Status BREANA HSU 06/17/2023 09:52:22 Final Observation Date Value Abnormality Reference (Units ) Status BUN 06/17/2023 09:52:22 32 Above high normal 6-20 (mg/dL) Final Creatinine 06/17/2023 09:52:22 0.9 0.5-1.0 (mg/dL) Final Glomerular filtration rate/1.73 sq M.predicted [Volume Rate/Area] in Serum, Plasma or Blood by Creatinine-based formula (CKD-EPI) 06/17/2023 09:52:22 71 >=60 (mL/min) Final eGFR is calculated based on the CKD-EPI 2020 equation Sodium 06/17/2023 09:52:22 139 135-146 (m mol/L) Final Potassium 06/17/2023 09:52:22 5.2 Above high normal 3. 5-5.1 (mmol/L) Final Cl 06/17/2023 09:52:22 105 98-107 (mm ol/L) Final CO2 06/17/2023 09:52:22 24 22-32 (mmo l/L) Final Anion gap 06/17/2023 09:52:22 10 7-15 (mmol /L) Final Glucose 06/17/2023 09:52:22 86 70-120 (mg /dL) Final Calcium 06/17/2023 09:52:22 9.1 8.4-10.2 ( mg/dL) Final Performing Location [facility] - [address] [place] [address]
--- OUTSIDE RECORDS SUMMARY | 2023-08-14 12:13 | External Medical Summary | Summary of Care ---
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 Name Role Phone Aviva Rossi DO Primary Care Provider Reason for Visit * Reason Comments Follow Up Encounter Details Date Type Department Care Team (Latest Contact Info) Description 06/17/2023 8:40 AM EDT Office Visit Family Practice [address] [facility] [address] [place] [address] Aviva Rossi DO [address] [place] [address] Type 2 diabetes mellitus with hemoglobin A1c goal of less than 8.0% ([facility])*; Diabetes mellitus with peripheral vascular disease ([facility]); 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, unspecified whether long term care phlebotomist insulin use ([facility]); Hypertension goal BP (blood pressure) < 140/90; Stress incontinence; Acquired hypothyroidism; Myasthenia gravis ([facility]); Recurrent major depressive disorder, in partial remission ([facility]); Attention deficit hyperactivity disorder (ADHD), unspecified ADHD type; Dyslipidemia; BMI 50.0-59.9, adult ([facility]); Encounter for screening mammogram for malignant neoplasm of breast Allergies Active Allergy Reactions Criticality Noted Date Comments Codeine 11/20/2012 Nausea and vomiting Lisinopril 06/12/2015 ?cough Penicillin G 11/20/2012 Hives Hydrocodone-Acetaminophen 11/20/2012 Nausea and vomiting documented as of this encounter (statuses as of 06/17/2023) Medications Medication Sig Dispensed Refills Start Date End Date Status Magnesium Oxide 400 MG Oral Capsule Take 1 Capsule by mouth daily. Taking weekly 0 2 Active Cyanocobalamin 1000 MCG Oral [...] 24 Active Insulin Syringe-Needle U-100 30G X 08/06" 0.3 ML USE TO INJECT TWO TO [...] titration schedule 45 mL 3 3 Active Additional Information Patient taking differently: Inject up to 50 units daily subcutaneously as directed per titration schedule.Pt reports she is currently only taking 30 units., Reported on 06/17/2023 Pen [place] 06/06" 31G X 5 MM Use daily to inject insulin 4 times daily 400 Each 1 3 Active Insulin Glargine Solostar 100 UNIT/ML Subcutaneous Solution Pen-injectorIndicat ions:Diabetes mellitus with peripheral vascular disease (HCC),Type 2 diabetes mellitus with hemoglobin A1c goal of less than 8.0% ([facility]) Titrate down per titration schedule as starting Xultophy. Pt reports she is currently taking 8 units. 0 3 Active FLUoxetine HCl 20 MG Oral [...] for Dyspnea. 54 g 1 3 Active Losartan Potassium 100 MG Oral Tablet (Cozaar)Indications :Type 2 diabetes mellitus with hemoglobin A1c goal of less than 8.0% ([facility]),Hypertension goal BP (blood pressure) < 140/90 TAKE ONE TABLET BY MOUTH EVERY DAY 90 Tablet 1 4 Active buPROPion HCl ER (SR) 150 [...] the morning. 100 Tablet 3 4 Active Myrbetriq 50 MG Oral Tablet Extended Release 24 Hour (Mirabegron ER)Indications:Stre ss incontinence Take 1 Tablet by mouth in the morning. 90 Tablet 3 4 Active Myrbetriq 50 MG Oral Tablet Extended Release 24 Hour (Mirabegron ER) Take 1 Tablet by mouth in the morning. 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 Sees Dr Sanders-Lawrecne @[facility] [phone] IBS (irritable bowel syndrome) Stress incontinence Type 2 diabetes mellitus wit h hemoglobin A1c goal of less than 8.0% Overview: ICD-10 update of inactive term Myasthenia gravis Overview: 1999. Dx . Vocal cords. ENT in [place]. Chronic cough Central serous retinopathy Productive cough Overview: chronic Major depression in partial remission documented as of this encounter (statuses as of 06/17/2023) Resolved Problems Problem Noted Date Diagnosed Date [...] as of this encounter (statuses as of 06/17/2023) Immunizations Name Administration Dates Next Due COVID-19 mRNA, LNP-s, No Pre serve, 2-Dose Series ([employer]) 09/21/2020,05/22/2020 COVID-19, MRNA-LNP, 23-24, P F, 30 MCG/0.3 mL, 12 YRS AND ABOVE, IM (P[employer]ZER-Comirnat) 01/07/2023 Covid-19, Mrna, Lnp-s, Pf, B ivalent, [...] Exposure: Past Smokeless Tobacco: Former Quit: 12/17/1990 Tobacco Cessation:Counseling Given: Yes Comments:quit 1990 Alcohol Use Standard Drinks/Week Comments [...] on file documented as of this encounter Last Filed Vital Signs Vital Sign Reading Time Taken Comments Blood Pressure 138/80 06/17/2023 9:11 AM EDT Pulse 71 06/17/2023 9:11 AM EDT Temperature 36 C (96.8 F) 06/17/2023 9:11 AM EDT Respiratory Rate 16 06/17/2023 9:11 AM EDT Oxygen Saturation 98% 06/17/2023 9:11 AM EDT Inhaled Oxygen Concentration - - Weight 128 kg (282 lb 1.6 oz) 06/17/2023 9:11 AM EDT Height 157.5 cm (5' 2") 06/17/2023 9:11 AM EDT Body Mass Index 51.6 06/17/2023 9:11 AM EDT documented in this encounter Patient Instructions * Patient Instructions* Michelle Tim LPN - 06/17/2023 9:08 AM EDT Images from the original note were not included. Diabetes: Keeping Feet Healthy Inspect your feet every day for signs of a problem. Diabetes can damage nerves in your feet and cause neuropathy. This condition makes it hard for you to feel injuries or sore spots. Diabetes can also change blood flow, making it harder for small problems, like a blister, to heal properly. In fact, minor injuries can quickly become serious infections that send you to the hospital. Practice self-care to protect your feet and keep them healthy. Take Special Care Inspect your feet daily for problems such as redness, blisters, cracks, dry skin, or numbness. Use a mirror to see the bottoms of your feet. Or, ask for help. Manage your diabetes. Monitor and control your blood sugar. Take all your medications as prescribed. Avoid walking barefoot, even indoors. Wash your feet with warm water and mild soap. Dry well, especially between toes. Dont treat corns or calluses yourself. Talk to your doctor or silk crepe machine operator (a doctor who specializes in foot care) if you need assistance trimming your toenails. Use moisturizing cream or lotion if you have dry skin, but dont use it between toes. Dont use heating pads on your feet. If you have neuropathy, you could get a burn and not feel it. Stop smoking. Smoking restricts blood flow and can make it harder for wounds to heal. Have Regular Checkups Foot problems can develop quickly. So be sure to follow your healthcare teams schedule for regular checkups. During office visits, take off your shoes and socks as soon as you get in the exam room. Ask your healthcare provider to examine your feet for problems. This will make it easier to find and treat small skin irritations before they get worse. Regular checkups can also help keep track of the blood flow and feeling in your feet. If you have neuropathy, you may need to have checkups more often. Wear Proper Footwear Wearing proper footwear is very important. If areas of your feet have been damaged by too much pressure, your healthcare provider may recommend changing your footwear. In some cases, avoiding high heels or tight work boots may be all thats needed. Or, your healthcare provider may recommend special shoes or custom inserts. These help protect your feet and keep existing irritations from getting worse. If you need special footwear, ask your healthcare provider if you qualify for [employer] diabetic shoe program. Make Sure Shoes and Socks Fit Any pair of shoes--new or old--should feel comfortable as soon as you put them on. There shouldnt be any rubbing when you walk. Wear the right shoe for any activity. For instance, a running shoe is designed to keep your feet injury-free while jogging. Buy shoes at the end of the day, when your feet are larger. Make sure they provide support without feeling too loose. Make sure your socks fit, t oo. Wear soft, seamless, well-padded socks for activity. Cotton or microfiber socks are best to help to absorb sweat. To protect your feet, avoid shoes that are open-toed or open-heeled. If you have questions about what kinds of shoes and socks are best, talk to your healthcare team. Get Regular Exercise Regular exercise improves blood flow in your feet. It also increases foot strength and flexibility.Gentle exercises, like walking or riding a stationary bicycle, are best. You can also do special foot exercises. Just be sure to talk with your healthcare provider before starting any exercise program. Also mention if any exercise causes pain, redness, or other signs of foot problems. Note: If you have any kind of break in the skin of your foot or ankle, keep the area clean. Then call your doctor--especially if the area doesnt appear to be healing. [id number] [employer], [address] [place] [address], [place] [address]. All rights reserved. This information is not intended as a substitute for professional medical care. Always follow your healthcare professional's instructions. Mammography Mammography is an X-ray exam of your breast tissue. The image it makes is called a mammogram. A mammogram can help find problems with your breasts, such as cysts or cancer. Mammography is the best breast cancer screening tool available. Have screening mammograms and professional breast exams as often as your healthcare provider recommends. Also, be sure you know how your breasts normally look and feel. This makes it easier to noticeany changes. Report changes to your healthcare provider as soon as possible. How do I get ready for a mammogram? Schedule the test for 1 week after your period. Your breasts are less sore then. Make sure your clinic gets images of your last mammogram if it was done somewhere else. This lets the provider compare the 2 sets of images for any changes. On the morning of your test, dont use deodorant, powder, or perfume. Wear a top that you can take off easily. What happens during a mammogram? You will need to undress from the waist up. The technologist will position your breast to get the best test results. Each of your breasts will be compressed one at a time. This helps get the most complete X-ray image. Your breasts will be repositioned to get at least 2 separate views of each breast. What happens after a mammogram? More X-rays are sometimes needed. If not done at the time of your initial mammogram, youll be called to schedule them. You should receive your test results in writing. Ask about this on the day of your appointment. Have mammograms as often as your healthcare provider recommends. Let the technologist know if: Youre or think you may be You have breast implants You have any scars or moles on or near your breasts Youve had a breast biopsy or surgery Youre Date Last Reviewed: 08/22/201619993306-4857 [employer]. [address] [place] [address]. All rights reserved. This information is not intended as a substitute for professional medical care. Always follow your healthcare professional's instructions documented in this encounter Progress Notes * Aviva Rossi, - 06/17/2023 9:17 AM EDT SUBJECTIVE: Chief Complaint Patient presents with Follow Up HPI: Lisa Gamboa is a 68 year old female who presents today for regular return. Pt notes no further "A.fib symtpoms". We did do a monitor and she had some SVT. She has not had these symptoms a ton recently. She notes she had a history of this in the past. She feels that things are much better than they had been at the past. She declines medication presently. She notes no significant swelling recently. She has been wearing her CPAP since May 23. She feels that she is tolerating it well. Pt notes that her sugars are ok. She notes they were a little higher because she was eating some pizza. She notes she is still doing ok with taking her medications regularly. PHM: Patient Active Problem List Diagnosis Code ADVANCE DIRECTIVE INFORMATION IBS (irritable bowel syndrome) K58.9 Stress incontinence N39.3 Type 2 diabetes mellitus with hemoglobin A1c goal of less than 8.0% ([facility]) E11.9 Myasthenia gravis ([facility]) G70.00 Chronic cough R05.3 Routine general medical examination at a health care facility Z00.00 Central serous retinopathy H35.719 Productive cough R05.8 Major depression in partial remission ([facility]) F32.4 Ex-smoker Z87.891 Microalbuminuric diabetic nephropathy ([facility]) E11.21 Body mass index (BMI) of 50.0 to 59.9 in adult ([facility]) Z68.43 Other specified peripheral vascular diseases ([facility]) I73.89 Diabetes mellitus with peripheral vascular disease ([facility]) E11.51 Dyslipidemia E78.5 Current Outpatient Medications Medication Sig Dispense Refill Magnesium Oxide 400 MG Oral Capsule Take 1 Capsule by mouth daily. Taking weekly Cyanocobalamin 1000 MCG Oral Tablet (Cyanocobalamin) Take 1 Tablet by mouth daily. Vision Formula Eye Health Oral Capsule Take 1 Capsule by mouth daily. Dexcom G6 Sensor Use as directed. Use as directed every 10 days to monitor blood sugars Potassium Chloride ER 10 MEQ Oral Tablet [...] only taking 30 units.) 45 mL 3 Insulin Glargine Solostar 100 UNIT/ML Subcutaneous Solution Pen-injector Titrate down per titrationschedule as starting Xultophy. Pt reports she is currently taking 8 units. Myrbetriq 50 MG Oral Tablet Extended Release 24 Hour (Mirabegron ER) Take 1 Tablet by mouth in the morning. 90 Tablet 3 FLUoxetine HCl 20 MG Oral Capsule [...] mouth in the morning. 100 Tablet 3 Insulin Syringe-Needle U-100 30G X 5/16" 0.3 ML USE TO INJECT TWO TO THREE TIMES DAILY 300 Each 3 Pen [place] 3/16" 31G X 5 MM Use daily to inject insulin 4 times daily 400 Each 1 Current Facility-Administered Medications Medication Dose Route Frequency Provider Last Rate Last Admin Albuterol Sulfate (Proventil) (2.5 MG/3ML) 0.083% inhalation solution 2.5 mg 2.5 mg Nebulizer Once PRN Aviva Rossi DO 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 Chronic cough DM (diabetes mellitus) (HCC) Elevated WBC count 80s Endometrial cancer (HCC) Ex-smoker 09/03/2013 IBS (irritable bowel syndrome) Left knee injury meniscus tear, medial condyle fracutre Major depression in partial remission (HCC) Microalbuminuric diabetic nephropathy (HCC) 04/28/2014 Morbid obesity (HCC) Myasthenia gravis (HCC) Ocular migraine Productive cough chronic PSVT (paroxysmal supraventricular tachycardia) 80s due to albuterol, theophylline Pyelonephritis 2x hospital Sleep apnea Sleep apnea, obstructive Stress incontinence Past Surgical History: Procedure Laterality Date , INDUCED BY D&C COLONOSCOPY, DIAGNOSTIC (RECTUM) N/A 09/18/2022 hemorrhoids/multiple polyps/biopsies show adenomatous and tubulovillous adenoma/recall 3 months/colonoscopy/[facility] DENT[facility] SURGERY PROCEDURE NEC EGD, FLEXIBLE, DIAGNOSTIC 09/27/2015 normal/[facility] LAPAROSCOPY TOTAL HYSTX, UTERUS 250GM OR LESS TUBE/OVARY 02/02/2013 LAPAROSCOPIC HYSTERECTOMY REMOVAL TUBES AND OVARIES FOR UTERUS 250GM OR LESS performed by Elizabeth Phillips DO at [place] [facility] [place] Review of patient's allergies indicates: Allergen Reactions Codeine Nausea and vomiting Lisinopril ?cough Penicillin G Hives Vicodin [Hydrocodone-Acetaminophen] Nausea and vomiting Family History Problem Relation Age of Onset Glaucoma Mother Heart Disorder Mother Allergies Mother PCN, sulfa Arthritis Mother DJD, Spondylolisthesis Renal Hx Mother h/o pyelonephritis Eye Problems Mother Wet ARMD Heart Disorder Father Afib Stroke Father Demented Hypertension Father late onset Neurological Disorder Father Vascular Dementia Stroke Grandmother (Maternal) Stroke Grandfather (Maternal) Hypertension Grandmother (Paternal) Neurological Disorder Grandfather (Paternal) Parkinson's Breast Cancer No significant family history Family Status Relation Status Mo Fa Sis Alive MGMA MGFA PGMA PGFA No history (Not Specified) Social History Tobacco Use Smoking status: Former Current packs/day: 1.00 Average packs/day: 1 pack/day for 25.0 years (25.0 ttl pk-yrs) Types: Cigarettes Passive exposure: Past Smokeless tobacco: Former Quit date: 12/17/1990 Tobacco comments: quit 1990 Substance Use Topics Alcohol use: Yes Comment: occasional Vaping/E-Cigarette Use Vaping/E-Cigarette Use Never User Vaping/E-Cigarette Substances Vaping/E-Cigarette Devices REVIEW OF SYSTEMS: Review of Systems Constitutional: Negative for chills, fatigue, fever and unexpected weight change. Respiratory: Negative for cough, chest tightness, shortness of breath and wheezing. Cardiovascular: Negative for chest pain, palpitations and leg swelling. Gastrointestinal: Negative for abdominal pain, constipation, diarrhea, nausea and vomiting. Musculoskeletal: Negative for arthralgias, gait problem and joint swelling. Skin: Negative for color change, pallor and rash. OBJECTIVE: BP 138/80 (BP Site: Left Arm, BP Position: Sitting, BP Cuff Size: Large) | Pulse 71 | Temp 36 C (96.8 F) (Tympanic) | Resp 16 | Ht 1.575 m (5' 2") | Wt 128 kg (282 lb 1.6 oz) | SpO2 98% | BMI 51.60 kg/m | BSA 2.37 m PHYSICAL EXAM: Physical Exam Constitutional: General: She is not in acute distress. Appearance: She is well-developed. Cardiovascular: Rate and Rhythm: Normal rate and regular rhythm. Heart sounds: Normal heart sounds. No murmur heard. No friction rub. No gallop. Pulmonary: Effort: Pulmonary effort is normal. No respiratory distress. Breath sounds: Normal breath sounds. No wheezing or rales. Abdominal: General: Bowel sounds are normal. There is no distension. Palpations: Abdomen is soft. Tenderness: There is no abdominal tenderness. There is no guarding. Musculoskeletal: General: No tenderness or deformity. Normal range of motion. Right lower leg: Edema (trace) present. Left lower leg: Edema (trace) present. Skin: General: Skin is warm and dry. Coloration: Skin is not pale. Findings: No erythema or rash. Neurological: Mental Status: She is alert and oriented to person, place, and time. 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 Will await results. Follows with eye doctor closely for her retinopathy. Remain on Xultophy and Lantus. (I10) Hypertension goal BP (blood pressure) < 140/90 Plan: BP ok. No changes today. (N39.3) Stress incontinence Plan: Myrbetriq 50 MG Oral Tablet Extended Release 24 Hour (Mirabegron ER) Pt feels that this works well for her. She will continue. Refill sent. (E03.9) Acquired hypothyroidism Plan: TSH WITH FREE T4 IF INDICATED, TSH WITH FREE T4 IF INDICATED Pt will complete TSH. To remain on levothyroxine. (G70.00) Myasthenia gravis (HCC) Plan: Pt notes primarily affected her singing voice. Nothing further needed presently. (F33.41) Recurrent major depressive disorder, in partial remission (HCC) (F90.9) Attention deficit hyperactivity disorder (ADHD), unspecified ADHD type Plan: pt will remain on current regimen. 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 (E78.5) Dyslipidemia Plan: pt will remain on atorvastatin. (Z68.43) BMI 50.0-59.9, adult (HCC) Plan: Weight loss encouraged. (Z12.31) Encounter for screening mammogram for malignant neoplasm of breast Plan: MAMMOGRAM SCREENING SUZETTE BILATERAL Mammogram ordered. She is encouraged to schedule. Follow-up: 3 months Total time today including reviewing chart before the visit, pertinent labs, imaging reports, face to face time, and documentation time was 33 minutes. Aviva Rossi DO * Michelle Tim LPN - 06/17/2023 9:08 AM EDT Socks and Shoes Removed for Annual Diabetic Foot Screening RIGHT FOOT: No Reddened, Cracking, Or Open Areas Noted. RIGHT Dorsalis Pedis Pulse: Palpable RIGHT Posterior Tibial Pulse: Palpable RIGHT Monofilament:Patient reports feeling monofilament pressure on plantar surface of foot LEFT FOOT: No Reddened, Cracking or Open Areas Noted. LEFT Dorsalis Pedis Pulse: Palpable LEFT Posterior Tibial Pulse: Palpable LEFT Monofilament:Patient reports feeling monofilament pressure on plantar surface of foot Do you need diabetic shoes: N/A DM Foot Exam completed today. Provider aware. Michelle Tim LPN Urine albumin/creatinine ratio ordered today. Provider aware. Hemoglobin a1c ordered today. Provider aware. Michelle Tim LPN documented in this encounter Nursing Notes * Michelle Tim LPN - 06/17/2023 9:07 AM EDT Patient here for routine follow up visit. Reports she is taking 30 units Xultophy and 8 units Lantus. States she is not taking Lasix daily. Reports worsening back pain. documented in this encounter Plan of Treatment Upcoming Encounters Date Type Department Care Team (Late st Contact Info) Description 07/11/2023 10:40 AM EDT Telemedicine [facility] [place] [address] [place] [phone] Neetu Phillips, [address] [place] [address] 09/16/2023 9:40 AM EDT Office Visit Family Practice [address] [place] [address] [place] [address] Aviva Rossi DO [address] [facility], [place] [address] 09/16/2023 11:15 AM EDT Imaging Radiology [facility] [facility], [place] [address] [place] [address] 11/11/2023 1:00 PM EDT Nurse Only Ancillary [address] [place] [address] [facility] [address] [facility], Nurse Annual Wellness Visit [address] [facility] [address] [facility] [address] Pending Results Name Type Priority Associated Diagnoses Date /Time ALBUMIN / CREATININE RATIO, URINE Lab Routine Diabetes mellitus with peripheral vascular disease (HCC) Type 2 diabetes mellitus with hemoglobin A1c goal of less than 8.0% (HCC) 06/17/2023 10:02 AM EDT HEMOGLOBIN A1C Lab Routine Diabetes mellitus with peripheral vascular disease (HCC) Type 2 diabetes mellitus with hemoglobin A1c goal of less than 8.0% (HCC) 06/17/2023 9:52 AM EDT BASIC METABOLIC PANEL Lab Routine Diabetes mellitus with peripheral vascular disease (HCC) Type 2 diabetes mellitus with hemoglobin A1c goal of less than 8.0% (HCC) 06/17/2023 9:52 AM EDT TSH WITH FREE T4 IF INDICATED Lab Routine Acquired hypothyroidism 06/17/2023 9:52 AM EDT Scheduled Orders Name Type Priority Associated Diagnoses Orde r Schedule MAMMOGRAM SCREENING SUZETTE BILATERAL Medical Imaging Routine Encounter for screening mammogram for malignant neoplasm of breast Expected: 06/17/2023, Expires: 07/17/2024 ALBUMIN / CREATININE RATIO, URINE Lab Routine Diabetes mellitus with peripheral vascular disease (HCC) Type 2 diabetes mellitus with hemoglobin A1c goal of less than 8.0% (HCC) Expected: 06/17/2023, Expires: 06/16/2024 HEMOGLOBIN A1C Lab Routine Diabetes mellitus with peripheral vascular disease (HCC) Type 2 diabetes mellitus with hemoglobin A1c goal of less than 8.0% (HCC) Expected: 06/17/2023 (Approximate), Expires: 07/17/2024 BASIC METABOLIC PANEL Lab Routine Diabetes mellitus with peripheral vascular disease (HCC) Type 2 diabetes mellitus with hemoglobin A1c goal of less than 8.0% (HCC) Expected: 06/17/2023 (Approximate), Expires: 06/16/2024 TSH WITH FREE T4 IF INDICATED Lab Routine Acquired hypothyroidism Expected: 06/17/2023 (Approximate), Expires: 06/16/2024 Scheduled Procedures Name Priority Associated Diagnoses Date/Ti me COLONOSCOPY FLEXIBLE PROXIMA L DIAGNOSTIC Recall History of colonic polyps Health Maintenance Due Date Last Done Comments Albumin/Creatinine Ratio 06/05/2023 023, 04/27/2014, 09/03/2013 Mammogram 06/05/2023 06/04/2022, 09/17/2013 HbA1c 07/09/2023 01/07/2023, 07/22, 04/19/2022, Additional history exists GFR 01/08/2024 01/07/2023, 07/2022, 08/06/2022, Additional history exists TSH 01/08/2024 01/07/2023, 11/14/2021 Diabetic Eye Exam 01/22/2024 01/21/2023, , 11/21/2022, Additional history exists Depression Screening 03/11/2024 03/11/2023 Diabetic Foot Exam 06/16/2024 06/17/2023, 0 05/09/2022, 11/08/2015, Additional history exists Lipid Panel 04/19/2027 04/19/2022, 10/22, 02/02/2014, Additional [...] as of this encounter Visit Diagnoses Diagnosis 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, unspecified whether mcc insulin use (HCC) Diabetes mellitus with peripheral vascular disease (HCC) Type II or unspecified type diabetes mellitus with peripheral circulatory disorders, not stated as uncontrolled Hypertension goal BP (blood pressure) < 140/90 Unspecified essential hypertension Stress incontinence Female stress incontinence Acquired hypothyroidism Unspecified hypothyroidism Myasthenia gravis (HCC) Myasthenia gravis without exacerbation Recurrent major depressive disorder, in partial remission (HCC) Attention deficit hyperactivity disorder (ADHD), unspecified ADHD type Dyslipidemia Other and unspecified hyperlipidemia BMI 50.0-59.9, adult ([facility]) Body Mass Index 50.0-59.9, adult Encounter for screening mammogram for malignant neoplasm of breast Other screening mammogram documented in this encounter Advance Directives Latest [...] and were consensually agreed upon. Care Teams School Bus Monitor Relationship Specialty Start Date End Date Aviva Rossi DO [address] [facility] [place] [address] PCP - General Family Medicine 05/09/22 documented as of this encounter
--- OUTSIDE RECORDS SUMMARY | 2023-08-14 12:13 | External Medical Summary | Summary of Care ---
Author Name Unknown Organization [facility] Address [address] [place] [address] Phone [phone] Care Team Providers Care Site Safety Representative Name Role Phone Aviva Toussaint DO Primary Care Provider [phone] Reason for Visit * Reason Onset Date Comments Medication Refill 04/04/2023 Encounter Details Date Type Department Care Team (Late st Contact Info) Description 04/04/2023 Refill Family Practice [address] [place] [address] [place] [address] Aviva Toussaint DO [address] [place] [address] Major depressive disorder, single episode, in partial remission (HCC) Allergies Active Allergy Reactions Criticality Noted Date Comments Codeine 11/20/2012 Nausea and vomiting Lisinopril 06/12/2015 ?cough Penicillin G 11/20/2012 Hives Hydrocodone-Acetaminophen 11/20/2012 Nausea and vomiting documented as of this encounter (statuses as of 04/11/2023) Medications Medication Sig Dispensed Refills Start Date [...] schedule 45 mL 3 3 Active Pen [place] 06/06" 31G X 5 MM Use daily [...] as of this encounter (statuses as of 04/11/2023) Active Problems Problem Noted Date Diagnosed Date [...] Routine general medical exam in[facility] at [facility] 12/17/2012 Overview: 01/06 JcBlair-CT chest angio WNL 10/06 EGD WNL. 01/06 EGD WNL. Consider gaviscon, Manometry 12/05 colonoscopy-5mm polyps--path---tubular adenoma. TRUONG 5 years 11/04 PFTs done. Some improvement w/albuterol. 08/04 TTE-mild delcid dysfunction 07/05 start lantus/novolog-refer MTM----, Psychiatrist. Sees Dr Sanders-Lawrence @[facility] [phone] IBS (irritable bowel syndrome) Stress incontinence Type [...] as of this encounter (statuses as of 04/11/2023) Resolved Problems Problem Noted Date Diagnosed Date Resolved Date Ocular migraine 05/12/2022 05/12/2022 Endometrial carcinoma 11/12/20132022 Ovarian mass 12/17/2012 07/09/2013 Overview: S/p SANA BSO Endometrial thickening on ultrasound 12/17/2012 07/09/2013 Overview: ICD-10 update of inactive term Postmenopausal vaginal bleeding 12/17/2012 07/09/2013 Morbid obesity 12/26/2016 Overview: Per Obesity protocol #1 PMB (postmenopausal bleeding) 11/12/2013 documented as of this encounter (statuses as of 04/11/2023) Immunizations Name Administration Dates Next Due COVID-19 mRNA, LNP-s, No Pre serve, 2-Dose Series ([employer]) 09/21/2020,05/22/2020 COVID-19, MRNA-LNP, 23-24, P F, 30 MCG/0.3 mL, 12 YRS AND ABOVE, IM ([employer]-Comirnat) 01/07/2023 Covid-19, Mrna, Lnp-s, Pf, B ivalent, 30 Mcg, IM, 12 yrs and above ([employer]) 05/09/2022 Pneumococcal Conjugate Vaccine, 20-valent (Prevn ar20) [...] encounter Miscellaneous Notes * Telephone Encounter - Radha Meredith PHARM Tech - 04/11/2023 2:49 PM EST Pt called stating she got 100 mg but she never got 150 mg. Checked with pharmacy and they said theywill overnight it on Friday so pt will get it on Friday. Pt said she doesn't want a short supply to local pharmacy. Thanks, Radha Meredith [employer] [facility] 04/11/2023,2:54 PM * Telephone Encounter - Mary Holloway CPhT - 04/10/2023 3:41 PM EST Pt calling to request buPROPion HCl ER (SR) 150 MG Oral Tablet Extended Release 12 Hour (Wellbutrin SR) . Informed pt that RX is available at their pharmacy. Pt verbalized understanding and stated they will check with their pharmacy regarding this medication. Thank you, Mary Holloway [employer] [facility] ([facility] (Formerly [facility]) [...] AVIVA TOUSSAINT * Telephone Encounter - Gaby Leahy [facility] - 04/04/2023 4:40 PM ESTPending Prescriptions: Disp Refills buPROPion HCl ER (SR) 150 MG Oral Tablet E*100 Ta*3 Sig: Take 1 Tablet by mouth daily. buPROPion HCl ER (SR) 100 MG Oral Tablet E*100 Ta*3 Sig: Take 1 Tablet by mouth in the morning. * Telephone Encounter - Gaby Leahy [facility] - 04/04/2023 4:39 PM EST Did you pend patient's preferred pharmacy and medication before forwarding?yes Pharmacy: [facility] Pending Prescriptions: Disp Refills [...] or any previous visit. Patient Phone Numbers Labs: Lab Results Component Value Date/Time CREAT [...] EDT Office Visit Family Practice [address] [place] [address] [place] [address] Aviva Toussaint DO [address] [place] [address] 07/11/2023 10:40 AM EDT [facility] [address] [place] [address] Neetu Phillips, DO [address] [place] [address] 11/11/2023 1:00 PM EDT Nurse Only Ancillary [address] [facility], [place] [address] [place] [address] College, Nurse Annual Wellness Visit 65 [facility] [address] [place] [address] Scheduled Procedures Name Priority Associated Diagnoses Date/Ti [...] and were consensually agreed upon. Care Teams Site Safety Representative Relationship Specialty Start Date End Date Aviva Toussaint DO [address] [place] [address], [place] [address] PCP - General Family Medicine 05/09/22 documented as of this encounter
--- OUTSIDE RECORDS SUMMARY | 2023-08-14 12:13 | External Medical Summary | Summary of Care ---
Author Name Unknown Organization [facility] Address [address] [place] [address] Phone [phone] Care Team Providers Care Credit And Loan Collections Supervisor Name Role Phone Aviva Toussaint DO Primary Care Provider [phone] Reason for Visit * Reason Onset Date Comments Medication Refill 04/04/2023 Encounter Details Date Type Department Care Team (Late st Contact Info) Description 04/04/2023 Refill Family Practice [address] [place] [address] [place] [address] Aviva Toussaint DO [address] [place] [address] Major depressive disorder, single episode, in partial remission (HCC) Allergies Active Allergy Reactions Criticality Noted Date Comments Codeine 11/20/2012 Nausea and vomiting Lisinopril 06/12/2015 ?cough Penicillin G 11/20/2012 Hives Hydrocodone-Acetaminophen 11/20/2012 Nausea and vomiting documented as of this encounter (statuses as of 04/04/2023) Medications Medication Sig Dispensed Refills Start Date [...] mouth in the morning. 0 3 Active Losartan Potassium 100 MG Oral Tablet (Cozaar)Indications :Type 2 diabetes mellitus with hemoglobin A1c goal of less than 8.0% ([facility]),Hypertension goal BP (blood pressure) < 140/90 TAKE ONE TABLET BY MOUTH EVERY DAY 90 Tablet 0 3 09/03/19 24 Active Famotidine 20 MG Oral Tablet (Pepcid)Indications [...] THREE TIMES DAILY 300 Each 3 3 07/15/19 24 Active NovoLOG FlexPen 100 UNIT/ML Subcutaneous Solution Pen-injector (insulin aspart) INJECT WITH WITH EACH MEAL PER CARB RATIO 1:7 AND CORRECTION FACTOR 1:20>120 MAX DAILY DOSE 35 UNITS 30 mL 3 3 Active Xultophy 100-3.6 UNIT-MG/ML Subcutaneous Solution Pen-injector (Insulin Degludec-Liraglutid e) Inject up to 50 units daily subcutaneously as directed per titration schedule 45 mL 3 3 Active Pen [place] 316" 31G X 5 MM Use daily [...] as of this encounter (statuses as of 04/04/2023) Active Problems Problem Noted Date Diagnosed Date [...] lantus/novolog-refer MTM----, Psychiatrist. Sees Dr Sanders-Lawrence @[facility] [phone] IBS (irritable bowel syndrome) Stress incontinence Type [...] as of this encounter (statuses as of 04/04/2023) Resolved Problems Problem Noted Date Diagnosed Date Resolved Date Ocular migraine 05/12/2022 05/12/2022 Endometrial carcinoma 11/12/20132022 Ovarian mass 12/17/2012 07/09/2013 Overview: S/p SANA BSO Endometrial thickening on ultrasound 12/17/2012 07/09/2013 Overview: ICD-10 update of inactive term Postmenopausal vaginal bleeding 12/17/2012 07/09/2013 Morbid obesity 12/26/2016 Overview: Per Obesity protocol #1 PMB (postmenopausal bleeding) 11/12/2013 documented as of this encounter (statuses as of 04/04/2023) Immunizations Name Administration Dates Next Due COVID-19 mRNA, LNP-s, No Pre serve, 2-Dose Series ([employer] 09/21/2020,05/22/2020 COVID-19, MRNA-LNP, 23-24, P F, 30 MCG/0.3 mL, 12 YRS AND ABOVE, IM ([employer]-Comirnaty) 01/07/2023 Covid-19, Mrna, Lnp-s, Pf, B ivalent, [...] encounter Miscellaneous Notes * Telephone Encounter - Aviva Toussaint DO [...] Telephone Encounter - Gaby Leahy, [facility] - 04/04/2023 4:40 PM ESTPending Prescriptions: Disp Refills buPROPion HCl ER (SR) 150 MG Oral Tablet E*100 Ta*3 Sig: Take 1 Tablet by mouth daily. buPROPion HCl ER (SR) 100 MG Oral Tablet E*100 Ta*3 Sig: Take 1 Tablet by mouth in the morning. * Telephone Encounter - Gaby Leahy [facility] - 04/04/2023 4:39 PM EST Did you pend patient's preferred pharmacy and medication before forwarding?yes Pharmacy: [facility] Pending Prescriptions: Disp Refills [...] AM EDT Office Visit Family Practice 65 [facility] [address] [place] [address] Aviva Toussaint, DO [address] [place] [address] 07/11/2023 10:40 AM EDT [facility] [address] [facility] [place] [address] Neetu Phillips, [address] [facility] [address] 11/11/2023 1:00 PM EDT Nurse Only Ancillary [address] [place] [address] College, Nurse Annual Wellness Visit [address] [address] Scheduled Procedures Name Priority Associated Diagnoses Date/Ti [...] 05/20/2022, Additional history exists GFR 01/08/2024 01/07/2023, 07/07/2022, 08/06/2022, Additional history exists TSH 01/08/2024 01/07/2023, [...] and were consensually agreed upon. Care Teams Credit And Loan Collections Supervisor Relationship Specialty Start Date End Date Aviva Toussaint DO [address] [facility] [place] [address] PCP - General Family Medicine 05/09/22 documented as of this encounter
--- OUTSIDE RECORDS SUMMARY | 2023-08-14 12:13 | External Medical Summary | Summary of Care ---
Author Name Unknown Organization [facility] Address [address] [place] [address] Phone [phone] Care Team Providers Care Learning And Development Administrator Name Role Phone Aviva Toussaint DO Primary Care Provider [phone] Reason for Visit * Reason Comments Medication Refill Encounter Details Date Type Department Care Team (Late st Contact Info) Description 04/04/2023 Refill Family Practice [address], [place] [address] [place] [address] Aviva Toussaint DO [address] [place] [address] Type 2 diabetes mellitus with hemoglobin A1c goal of less than 8.0% ([facility]); Hypertension goal BP (blood pressure) < 140/90 Allergies Active Allergy Reactions Criticality Noted Date Comments Codeine 11/20/2012 Nausea and vomiting Lisinopril 06/12/2015 ?cough Penicillin G 11/20/2012 Hives Hydrocodone-Acetaminophen 11/20/2012 Nausea and vomiting documented as of this encounter (statuses as of 04/05/2023) Medications Medication Sig Dispensed Refills Start Date [...] schedule 45 mL 3 3 Active Pen [place] 16" 31G X 5 MM Use daily to inject insulin 4 times daily 400 Each 1 3 Active Insulin Glargine Solostar 100 UNIT/ML Subcutaneous Solution Pen-injectorIndicat ions:Diabetes mellitus with peripheral vascular disease (HCC),Type 2 diabetes mellitus with hemoglobin A1c goal of less than 8.0% ([facility]) Titrate down per titration schedule [...] A1c goal of less than 8.0% ([facility]),Hypertension goal BP (blood pressure) < [...] the morning. 100 Tablet 3 4 Active Losartan Potassium 100 MG Oral Tablet (Cozaar)Indications :Type 2 diabetes mellitus with hemoglobin A1c goal of less than 8.0% ([facility]),Hypertension goal BP (blood pressure) < [...] as of this encounter (statuses as of 04/05/2023) Active Problems Problem Noted Date Diagnosed Date [...] start lantus/novolog-refer MTM----, Psychiatrist. Sees Dr Sanders-Lawrence @[facility] [phone] IBS (irritable bowel syndrome) Stress incontinence Type 2 diabetes mellitus wit h hemoglobin A1c goal of less than 8.0% Overview: ICD-10 update of inactive term Myasthenia gravis Overview: 1999. Dx . Vocal cords. ENT in [facility]. Chronic cough Central serous retinopathy Productive cough Overview: chronic Left knee injury Major depression in partial remission Elevated WBC count documented as of this encounter (statuses as of 04/05/2023) Resolved Problems Problem Noted Date Diagnosed Date Resolved Date Ocular migraine 05/12/2022 05/12/2022 Endometrial carcinoma 11/12/20132022 Ovarian mass 12/17/2012 07/09/2013 Overview: S/p SANA BSO Endometrial thickening on ultrasound 12/17/2012 07/09/2013 Overview: ICD-10 update of inactive term Postmenopausal vaginal bleeding 12/17/2012 07/09/2013 Morbid obesity 12/26/2016 Overview: Per Obesity protocol #1 PMB (postmenopausal bleeding) 11/12/2013 documented as of this encounter (statuses as of 04/05/2023) Immunizations Name Administration Dates Next Due COVID-19 mRNA, LNP-s, No Pre serve, 2-Dose Series ([employer]) 09/21/2020,05/22/2020 COVID-19, MRNA-LNP, 23-24, P F, 30 MCG/0.3 mL, 12 YRS AND ABOVE, IM ([employer]-Com[employer]nat[employer]) 01/07/2023 Covid-19, Mrna, Lnp-s, Pf, B ivalent, 30 Mcg, IM, 12 yrs and above ([employer]) 05/09/2022 Pneumococcal Conjugate Vaccine, 20-valent (Prevn ar20) [...] encounter Miscellaneous Notes * Telephone Encounter - Deandre Dotson [facility] - 04/05/2023 8:19 AM EST Signed Prescriptions: Disp Refills Losartan Potassium 100 MG Oral Tablet (Coz*90 Tab*1 Sig: TAKE ONE TABLET BY MOUTH EVERY DAYAuthorizing Provider: AVIVA TOUSSAINT User: DEANDRE DOTSON documented in this encounter Plan of Treatment Upcoming Encounters Date Type Department Care Team (Late st Contact Info) Description 06/17/2023 8:40 AM EDT Office Visit Family Practice [address] [place] [address] [address] [place] [address] Aviva Toussaint DO [address] [place] [address] 07/11/2023 10:40 AM EDT [facility] [address] [facility] [place] [address] Neetu Phillips, [address] [place] [address] 11/11/2023 1:00 PM EDT Nurse Only Ancillary [address] [place] [address] [facility], [place] [address] College, Nurse Annual Wellness Visit [address] [facility] [address] [facility], [place] [address] Scheduled Procedures Name Priority Associated Diagnoses Date/Ti [...] Diagnoses Diagnosis Type 2 diabetes mellitus with hemoglobin A1c goal of less than 8.0% ([facility]) Hypertension goal BP (blood pressure) < 140/90 Unspecified essential hypertension documented in this encounter Advance Directives Latest [...] and were consensually agreed upon. Care Teams Learning And Development Administrator Relationship Specialty Start Date End Date Aviva Toussaint DO [address] [place] [address] PCP - General Family Medicine 05/09/22 documented as of this encounter
--- OUTSIDE RECORDS SUMMARY | 2023-08-14 12:13 | External Medical Summary ---
Author Name Unknown Address Unknown Organization [id number]:[facility] [place] [facility] [place] [address] Laboratory Report Ordering Provider Test Date Status SHAVONNE HSUSUNSHINE 06/17/2023 10:02:12 Final Normal: <30 mg/g creatinine< br/>High: 30-300 mg/g creatinine
Very High: >300 mg/g creatinine
Nephrotic: >2200 mg/g creatinine Observation Date Value Abnormality Reference (Units ) Status Albumin, Urine 06/17/2023 10:02:12 17.11 (mg/dL) Final Creatinine, Urine 06/17/2023 10:02:12 78 (mg/dL) Final Albumin/Creatinine [Mass Ratio] in Urine 06/17/2023 10:02:12 219 Above high normal <30 (mg/g Creat) Final Performing Location [facility] [place] [address] [place] [address]
--- OUTSIDE RECORDS SUMMARY | 2023-08-14 12:13 | External Medical Summary ---
Author Name Unknown Address Unknown Organization [id number][place] [place] [address] [facility] [address] Laboratory Report Ordering Provider Test Date Status BREANA HSU 06/17/2023 09:52:22 Final Observation Date Value Abnormality Reference (Units ) Status HbA1C 06/17/2023 09:52:22 6.1 Above high normal 4. 0-5.6 (%) Final The use of HbA1c to monitor glycemic status is based on normal hemoglobin and HbA composition. This test should not be used in patients with abnormal hemoglobin that affects the half life of the red blood cell or the in vivo glycation rates. Glucose, estimated average 06/17/2023 09:52:22 128 Above high normal <126 (mg/dL) [place] frye Performing Location [facility] [place] [address] [facility] [address]
--- OUTSIDE RECORDS SUMMARY | 2023-08-14 12:13 | External Medical Summary ---
Author Name Unknown Address Unknown Organization [id number]:[facility] [place] [address] [place] [address] Laboratory Report Ordering Provider Test Date Status BREANA HSU 06/17/2023 09:52:22 Final Observation Date Value Abnormality Reference (Units ) Status TSH 06/17/2023 09:52:22 3.70 0.27-4.20 (uIU/mL) Final Performing Location [facility] [place] [address] [place] [address]
--- OUTSIDE RECORDS SUMMARY | 2023-08-14 12:14 | External Medical Summary | Summary of Care ---
Author Name Unknown Organization [facility] Address [address] [place] [address] Phone [phone] Care Team Providers Care Admissions Rn Name Role Phone Flo Aviva Christian GRIGGS Primary Care Provider Encounter Details Date Type Department Care Team (Late st Contact Info) Description 03/25/2023 Telephone Pulmonary Medicine, [facility] [address] [place] [address] Neetu Phillips DO [address] [place] [id number] Allergies Active Allergy Reactions Criticality Noted Date Comments Codeine 11/20/2012 Nausea and vomiting Lisinopril 06/12/2015 ?cough Penicillin G 11/20/2012 Hives Hydrocodone-Acetaminophen 11/20/2012 Nausea and vomiting documented as of this encounter (statuses as of 03/25/2023) Medications Medication Sig Dispensed Refills Start Date End Date Status Magnesium Oxide 400 MG Oral Capsule Take 1 Capsule by mouth daily. 0 03/27/2021 Active Cyanocobalamin 1000 MCG Oral Tablet (Cyanocobalamin) Take 1 Tablet by mouth daily. 0 03/27/2021 Active Vision Formula Eye Health Oral Capsule Take 1 Capsule by mouth daily. 0 05/09/2022 Active buPROPion HCl ER (SR) 150 MG Oral Tablet Extended Release 12 Hour (Wellbutrin SR)Indications:Ana r depressive disorder, single episode, in partial remission (HCC) Take 1 Tablet by mouth daily. 90 Tablet 0 05/09/2022 Active buPROPion HCl ER (SR) 100 MG Oral Tablet Extended Release 12 Hour (Wellbutrin SR)Indications:Ana r depressive disorder, single episode, in partial remission (HCC) Take 1 Tablet by mouth in the morning. 90 Tablet 0 05/09/2022 Active Dexcom G6 Sensor Use [...] mouth in the morning. 0 09/03/2022 Active Losartan Potassium 100 MG Oral Tablet (Cozaar)Indications :Type 2 diabetes mellitus with hemoglobin A1c goal of less than 8.0% ([facility]),Hypertension goal BP (blood pressure) < 140/90 TAKE ONE TABLET BY MOUTH EVERY DAY 90 Tablet 0 09/03/2022 09/03/19 24 Active Famotidine 20 MG Oral [...] TWO TO THREE TIMES DAILY 300 Each 07/15/2022 07/15/19 24 Active NovoLOG FlexPen 100 UNIT/ML Subcutaneous Solution Pen-injector (insulin aspart) INJECT WITH WITH EACH MEAL PER CARB RATIO 1:7 AND CORRECTION FACTOR 1:20>120 MAX DAILY DOSE 35 UNITS 30 mL 3 10/03/2022 Active Xultophy 100-3.6 UNIT-MG/ML Subcutaneous Solution Pen-injector (Insulin Degludec-Liraglutid e) Inject up to 50 units daily subcutaneously as directed per titration schedule 45 mL 3 11/27/2022 Active Pen [place] 06/06" 31G X 5 MM Use daily to inject insulin 4 times daily 400 Each 1 11/27/2022 Active Insulin Glargine Solostar 100 UNIT/ML Subcutaneous Solution Pen-injectorIndicat ions:Diabetes mellitus with peripheral vascular disease (HCC),Type 2 diabetes mellitus with hemoglobin A1c goal of less than 8.0% (HCC) Titrate down per titration schedule as starting Xultophy 0 11/27/2022 Active Myrbetriq 50 MG Oral Tablet Extended Release 24 Hour (Mirabegron ER) Take 1 Tablet by mouth in the morning. 90 Tablet 3 12/04/2022 Active FLUoxetine HCl 20 MG Oral Capsule [...] for Dyspnea. 54 g 1 01/08/2023 Active Hospital, Clinic, or Other Facility Administered Medication Ordered Dose Route Frequency Start Date End Date Status Albuterol Sulfate (Proventil) (2.5 MG/3ML) 0.083% inhalation solution 2.5 mgIndications:Shortness of breath,History of asthma 2.5 mg NEBULIZER ONCE PRN 01/07/2023 01/07/2024 Active documented as of this encounter (statuses as of 03/25/2023) Active Problems Problem Noted Date Diagnosed Date [...] start lantus/novolog-refer MTM----, Psychiatrist. Sees Dr Sanders-Lawrence @[facility] [phone] IBS (irritable bowel syndrome) Stress incontinence Type 2 diabetes mellitus wit h hemoglobin A1c goal of less than 8.0% Overview: ICD-10 update of inactive term Myasthenia gravis Overview: 1999. Dx . Vocal cords. ENT in [facility]. Chronic cough Central serous retinopathy Productive cough Overview: chronic Left knee injury Major depression in partial remission Elevated WBC count documented as of this encounter (statuses as of 03/25/2023) Resolved Problems Problem Noted Date Diagnosed Date Resolved Date Ocular migraine 05/12/2022 05/12/2022 Endometrial carcinoma 11/12/20132022 Ovarian mass 12/17/2012 07/09/2013 Overview: S/p SANA BSO Endometrial thickening on ultrasound 12/17/2012 07/09/2013 Overview: ICD-10 update of inactive term Postmenopausal vaginal bleeding 12/17/2012 07/09/2013 Morbid obesity 12/26/2016 Overview: Per Obesity protocol #1 PMB (postmenopausal bleeding) 11/12/2013 documented as of this encounter (statuses as of 03/25/2023) Immunizations Name Administration Dates Next Due COVID-19 mRNA, LNP-s, No Pre serve, 2-Dose Series ([employer]) 09/21/2020,05/22/2020 COVID-19, MRNA-LNP, 23-24, P F, [...] encounter Miscellaneous Notes * Telephone Encounter - Jorge Alberto Bishop OSA - 03/25/2023 1:45 PM EST Orders in 03/25 [facility] documented in this encounter Plan of Treatment Upcoming Encounters Date Type Department Care Team (Late st Contact Info) Description 06/17/2023 8:40 AM EDT Office Visit Family Practice 65 [facility] [address] [place] [address] Aviva Rossi DO [address] [place] [address] 11/11/2023 1:00 PM EDT Nurse Only Ancillary 65 [facility] [address] [place] [address] College, Nurse Annual Wellness Visit [address] [address] Scheduled Procedures Name Priority Associated Diagnoses Date/Ti me COLONOSCOPY FLEXIBLE PROXIMA L DIAGNOSTIC Recall History of colonic polyps Health Maintenance Due Date Last Done Comments Hepatitis B (1 of 3 - Risk 3-dose series) 2013 Diabetic Foot Exam 05/09/2023 05/09/2022, 0 11/08/2015, 10/12/2014, Additional history exists Albumin/Creatinine Ratio 06/05/2023 023, 04/27/2014, 09/03/2013 Mammogram 06/05/2023 06/04/2022, 09/17/2013 HbA1c 07/09/2023 01/07/2023, 0508/2022, 04/19/2022, Additional history exists Diabetic Eye Exam [...] and were consensually agreed upon. Care Teams Admissions Rn Relationship Specialty Start Date End Date Aviva Rossi DO [address] [place] [address] PCP - General Family Medicine 05/09/22 documented as of this encounter
--- OUTSIDE RECORDS SUMMARY | 2023-08-14 12:14 | External Medical Summary | Summary of Care ---
Author Name Unknown Organization [facility] Address [address] [place] [address] Phone [phone] Care Team Providers Care Supervisor Stitching Department Name Role Phone Aviva Rossi DO Primary Care Provider [phone] Encounter Details Date Type Department Care Team (Late st Contact Info) Description 01/15/2023 7:00 PM EDT Office Visit Sleep Lab, [address] [address] Neetu Phillips DO [address] [place] [phone] CATHERINE (obstructive sleep apnea)*; PLMD (periodic limb movement disorder) Allergies Active Allergy Reactions Criticality Noted Date Comments Codeine 11/20/2012 Nausea and vomiting Lisinopril 06/12/2015 ?cough Penicillin G 11/20/2012 Hives Hydrocodone-Acetaminophen 11/20/2012 Nausea and vomiting documented as of this encounter (statuses as of 02/23/2023) Medications Medication Sig Dispensed Refills Start Date [...] goal of less than 8.0% ([facility]),Hypertension goal BP (blood pressure) < 140/90 [...] THREE TIMES DAILY 300 Each 3 07/15/2022 07/15/19 24 Active NovoLOG FlexPen 100 UNIT/ML Subcutaneous Solution Pen-injector (insulin aspart) INJECT WITH WITH EACH MEAL PER CARB RATIO 1:7 AND CORRECTION FACTOR 1:20>120 MAX DAILY DOSE 35 UNITS 30 mL 3 10/03/2022 Active Xultophy 100-3.6 UNIT-MG/ML Subcutaneous Solution Pen-injector (Insulin Degludec-Liraglutid e) Inject up to 50 units daily subcutaneously as directed per titration schedule 45 mL 3 11/27/2022 Active Pen [place] 06/06" 31G X 5 MM Use daily [...] as of this encounter (statuses as of 02/23/2023) Active Problems Problem Noted Date Diagnosed Date [...] start lantus/novolog-refer MTM----, Psychiatrist. Sees Dr Sanders-Lawrence @[facility] [phone] IBS (irritable bowel syndrome) Stress incontinence Type [...] as of this encounter (statuses as of 02/23/2023) Resolved Problems Problem Noted Date Diagnosed Date Resolved Date Ocular migraine 05/12/2022 05/12/2022 Endometrial carcinoma 11/12/20132022 Ovarian mass 12/17/2012 07/09/2013 Overview: S/p SANA BSO Endometrial thickening on ultrasound 12/17/2012 07/09/2013 Overview: ICD-10 update of inactive term Postmenopausal vaginal bleeding 12/17/2012 07/09/2013 Morbid obesity 12/26/2016 Overview: Per Obesity protocol #1 PMB (postmenopausal bleeding) 11/12/2013 documented as of this encounter (statuses as of 02/23/2023) Immunizations Name Administration Dates Next Due COVID-19 mRNA, LNP-s, No Pre serve, 2-Dose Series ([employer]) 09/21/2020,05/22/2020 COVID-19, MRNA-LNP, 23-24, P F, 30 MCG/0.3 mL, 12 YRS AND ABOVE, IM ([employer]) 01/07/2023 Covid-19, Mrna, Lnp-s, Pf, B ivalent, 30 Mcg, IM, 12 yrs and above ([employer]) 05/09/2022 Pneumococcal Conjugate Vaccine, 20-valent (Prevn ar20) 05/09/2022 Pneumococcal Polysaccharide PPV23 (Pneumovax) Seasonal Influenza, Quadrivalent Hd (Fluzone Hd) 01/07/2023,05/09/2022 [...] Date Recorded PHQ Adult Total Score 0 01/07/2023 Hunger Vital Sign Answer Date Recorded Within the past 12 months, y ou worried that your food would run out before you got the money to buy more. Never true 01/08/20 23 Within the past 12 months, t he food you bought just didn't last and you didn't have money to get more. Never true 01/07/2023 Sex and Gender Information Value Date Recorded Sex Assigned at Female 09/25/2022 9:34 PM EDT Gender Identity Female 09/25/2022 9:34 PM EDT Sexual Orientation Don't know 09/25/2022 9: 34 PM EDT Job Start Date Occupation Industry Not on file Not on file Not on file documented as of this encounter Progress Notes * Neetu Phillips DO - 02/23/2023 8:10 PM EST Billing encounter for polysomnogram documented in this encounter Plan of Treatment Upcoming Encounters Date Type Department Care Team (Late st Contact Info) Description 02/25/2023 10:00 AM EST Office Visit Interventional Pain Center, [facility] [address] [place] [address] [facility]ner [facility]-C [facility] [place] [address] 03/11/2023 10:40 AM EST Office Visit Family Practice 65 [facility] [address] [place] [address] Aviva Rossi DO [address] [place] [address] 11/11/2023 1:00 PM EDT Nurse Only Ancillary 65 [facility] [address] [place] [address] College, Nurse Annual Wellness Visit [address] [place] [address] Scheduled Procedures Name Priority Associated Diagnoses Date/Ti [...] 11/22/2023 11/21/2022, , 05/20/2022, Additional history exists Depression Screening 01/08/2024 01/07/2023 GFR 01/08/2024 01/07/2023, 07/0 07/2022, 08/06/2022, Additional history exists TSH 01/08/2024 01/07/2023, 11/14/2021 Lipid Panel 04/19/2027 04/19/2022, 10/22, 02/02/2014, [...] apnea)- Primary Obstructive sleep apnea (adult) (pediatric) PLMD (periodic limb movement disorder) Periodic limb movement disorder documented in this encounter Advance Directives Latest [...] and were consensually agreed upon. Care Teams Supervisor Stitching Department Relationship Specialty Start Date End Date Aviva Rossi DO [address] [place] [address] PCP - General Family Medicine 05/09/22 documented as of this encounter
--- OUTSIDE RECORDS SUMMARY | 2023-08-14 12:14 | External Medical Summary | Summary of Care ---
Author Name Unknown Organization [facility] Address [address] [place] [address] Phone [phone] Care Team Providers Care Jacquard Loom Card Changer Name Role Phone MarquesmelvinAviva rust Christian GRIGGS Primary Care Provider Encounter Details Date Type Department Care Team (Late st Contact Info) Description 02/23/2023 Result Scan Unspecified Department <No scans attached> Allergies Active Allergy Reactions Criticality Noted Date Comments Codeine 11/20/2012 Nausea and vomiting Lisinopril 06/12/2015 ?cough Penicillin G 11/20/2012 Hives Hydrocodone-Acetaminophen 11/20/2012 Nausea and vomiting documented as of this encounter (statuses as of 02/24/2023) Medications Medication Sig Dispensed Refills Start Date [...] depressive disorder, single episode, in partial remission ([facility]) Take 1 Tablet by mouth in the [...] hemoglobin A1c goal of less than 8.0% ([facility]),Hypertension goal BP (blood pressure) < 140/90 TAKE [...] THE DAY OR OTHER MEDICATIONS 100 Tablet 08/06/2022 08/06/19 24 Active Atorvastatin Calcium 20 MG Oral Tablet (Lipitor) TAKE ONE TABLET BY MOUTH DAILY 100 Tablet 08/06/2022 08/06/19 24 Active Insulin Syringe-Needle U-100 [...] schedule 45 mL 3 11/27/2022 Active Pen [facility] 06/06" 31G X 5 MM Use daily [...] as of this encounter (statuses as of 02/24/2023) Active Problems Problem Noted Date Diagnosed Date [...] start lantus/novolog-refer MTM----, Psychiatrist. Sees Dr Sanders-Lawrence @[facility] [phone] IBS (irritable bowel syndrome) Stress incontinence Type 2 diabetes mellitus wit h hemoglobin A1c goal of less than 8.0% Overview: ICD-10 update of inactive term Myasthenia gravis Overview: 1999. Dx . Vocal cords. ENT in [facility]. Chronic cough Central serous retinopathy Productive cough Overview: chronic Left knee injury Major depression in partial remission Elevated WBC count documented as of this encounter (statuses as of 02/24/2023) Resolved Problems Problem Noted Date Diagnosed Date Resolved Date Ocular migraine 05/12/2022 05/12/2022 Endometrial carcinoma 11/12/20132022 Ovarian mass 12/17/2012 07/09/2013 Overview: S/p SANA BSO Endometrial thickening on ultrasound 12/17/2012 07/09/2013 Overview: ICD-10 update of inactive term Postmenopausal vaginal bleeding 12/17/2012 07/09/2013 Morbid obesity 12/26/2016 Overview: Per Obesity protocol #1 PMB (postmenopausal bleeding) 11/12/2013 documented as of this encounter (statuses as of 02/24/2023) Immunizations Name Administration Dates Next Due COVID-19 mRNA, LNP-s, No Pre serve, 2-Dose Series ([employer]) 09/21/2020,05/22/2020 COVID-19, MRNA-LNP, 23-24, P F, 30 [...] on file documented as of this encounter Plan of Treatment Upcoming Encounters Date Type Department Care Team (Late st Contact Info) Description 02/25/2023 10:00 AM EST Office Visit Interventional Pain Center, [facility] [address] [place] [address] Lisa Joyner PA-C [address] [place] [address] 03/11/2023 10:40 AM EST Office Visit Family Practice 65 [facility] [address] [place] [address] Aviva Rossi DO 293 [facility] [place] [address] 11/11/2023 1:00 PM EDT Nurse Only Ancillary 65 [facility] [address] [place] [address] College, Nurse Annual Wellness Visit [address] [place] [address] Scheduled Procedures Name Priority Associated Diagnoses Date/Ti me COLONOSCOPY FLEXIBLE PROXIMA L DIAGNOSTIC Recall History of colonic polyps Health Maintenance Due Date Last Done Comments Hepatitis B (1 of 3 - Risk 3-dose series) 2013 Diabetic Foot Exam 05/09/2023 05/09/2022, 0 11/08/2015, 10/12/2014, Additional history exists Albumin/Creatinine Ratio 06/05/202306/04/ 023, 04/27/2014, 09/03/2013 Mammogram 06/05/2023 06/04/2022, 09/17/2013 [...] Not on filedocumented as of this encounter Procedures Procedure Name Priority Date/Time Associated Diagnosis Comments PROCEDURE SCANNED RESULT 02/23/2023 documented in this encounter Results * PROCEDURE SCANNED RESULT (02/23/2023) 02/23/2023 No Physician Data Unknown SURGERY documented in this encounter Advance Directives Latest [...] and were consensually agreed upon. Care Teams Jacquard Loom Card Changer Relationship Specialty Start Date End Date Aviva Rossi DO [address] [place], [place] [address] [address] PCP - General Family Medicine 05/09/22 documented as of this encounter
--- OUTSIDE RECORDS SUMMARY | 2023-08-14 12:14 | External Medical Summary | Summary of Care ---
Author Name Unknown Organization [facility] Address [address] [place] [address] Phone [phone] Care Team Providers Care Dental Technician Name Role Phone Aviva Rossi DO Primary Care Provider Reason for Visit * Reason Onset Date Comments Follow Up Immunization RSV Vaccine 03/11/2023 Encounter Details Date Type Department Care Team (Late st Contact Info) Description 03/11/2023 10:40 AM EST Office Visit Family Practice [address] [facility] [place] [address] [place] [address] Aviva Rossi DO [address] [place] [address] Irregular heart rate*; Type 2 diabetes mellitus with hemoglobin A1c goal of less than 8.0% ([facility]); Abrasion; Risk and functional assessment; Need for RSV vaccination Allergies Active Allergy Reactions Criticality Noted Date Comments Codeine 11/20/2012 Nausea and vomiting Lisinopril 06/12/2015 ?cough Penicillin G 11/20/2012 Hives Hydrocodone-Acetaminophen 11/20/2012 Nausea and vomiting documented as of this encounter (statuses as of 03/12/2023) Medications Medication Sig Dispensed Refills Start Date [...] goal of less than 8.0% ([facility]),Hypertension goal BP (blood pressure) < 140/90 [...] THREE TIMES DAILY 300 Each 3 07/15/2022 04/23/20 24 Active NovoLOG FlexPen 100 UNIT/ML Subcutaneous Solution Pen-injector (insulin aspart) INJECT WITH WITH EACH MEAL PER CARB RATIO 1:7 AND CORRECTION FACTOR 1:20>120 MAX DAILY DOSE 35 UNITS 30 mL 3 10/03/2022 Active Xultophy 100-3.6 UNIT-MG/ML Subcutaneous Solution Pen-injector (Insulin Degludec-Liraglutid e) Inject up to 50 units daily subcutaneously as directed per titration schedule 45 mL 3 11/27/2022 Active Pen Topsham 06/06" 31G X 5 MM Use daily [...] for Dyspnea. 54 g 1 01/08/2023 Active Abrysvo 120 MCG/0.5ML Intramuscular Solution Reconstituted (RSV Pre-Fusion F A&B Vac [facility])Indications:Ne ed for RSV vaccination Inject 0.5 mL into a large muscle once for 1 dose. 1 Each 0 03/11/2023 03/12/20 23 Active Hospital, Clinic, or Other Facility Administered Medication Ordered Dose Route Frequency Start Date End Date Status Albuterol Sulfate (Proventil) (2.5 MG/3ML) 0.083% inhalation solution 2.5 mgIndications:Shortness of breath,History of asthma 2.5 mg NEBULIZER ONCE PRN 01/07/2023 01/07/2024 Active documented as of this encounter (statuses as of 03/12/2023) Active Problems Problem Noted Date Diagnosed Date [...] start lantus/novolog-refer MTM----, Psychiatrist. Sees Dr Sanders-Lawrence @[facility] [phone] IBS (irritable bowel syndrome) Stress incontinence Type 2 diabetes mellitus wit h hemoglobin A1c goal of less than 8.0% Overview: ICD-10 update of inactive term Myasthenia gravis Overview: 1999. Dx . Vocal cords. ENT in [facility]. Chronic cough Central serous retinopathy Productive cough Overview: chronic Left knee injury Major depression in partial remission Elevated WBC count documented as of this encounter (statuses as of 03/12/2023) Resolved Problems Problem Noted Date Diagnosed Date Resolved Date Ocular migraine 05/12/2022 05/12/2022 Endometrial carcinoma 11/12/20132022 Ovarian mass 12/17/2012 07/09/2013 Overview: S/p SANA BSO Endometrial thickening on ultrasound 12/17/2012 07/09/2013 Overview: ICD-10 update of inactive term Postmenopausal vaginal bleeding 12/17/2012 07/09/2013 Morbid obesity 12/26/2016 Overview: Per Obesity protocol #1 PMB (postmenopausal bleeding) 11/12/2013 documented as of this encounter (statuses as of 03/12/2023) Immunizations Name Administration Dates Next Due COVID-19 mRNA, LNP-s, No Pre serve, 2-Dose Series (AirXP) 09/21/2020,05/22/2020 COVID-19, MRNA-LNP, 23-24, P F, 30 MCG/0.3 mL, 12 YRS AND ABOVE, IM ([email or web address]) 01/07/2023 Covid-19, Mrna, Lnp-s, Pf, B ivalent, 30 Mcg, IM, 12 yrs and above (AirXP) 05/09/2022 Pneumococcal Conjugate Vaccine, 20-valent (Prevn ar20) [...] Sign Reading Time Taken Comments Blood Pressure 136/78 03/11/2023 11:01 AM EST Pulse 83 03/11/2023 11:01 AM EST Temperature 35.9 C (96.6 F) 03/11/2023 11:[address] Respiratory Rate 16 03/11/2023 11:01 AM EST Oxygen Saturation 99% 03/11/2023 11:01 AM EST Inhaled Oxygen Concentration - - Weight 127.7 kg (281 lb 8 oz) 03/11/2023 11:01 A M EST Height 157.5 cm (5' 2") 03/11/2023 11:01 AM EST Body Mass Index 51.49 03/11/2023 11:01 AM EST documented in this encounter Patient Instructions * Patient Instructions* Michelle Tim LPN - 03/11/2023 10:57 AM EST Patient Instructions - Fall Prevention (This education is for all patients over 65 regardless of symptoms) Remember to take your current medications as prescribed. In order to prevent falls, you are encouraged to: Exercise Utilize assistive/adaptive devices Avoid multifocal lenses when walking Avoid hazards in home Maintain a regular toileting schedule Any questions please contact our office. Preventing Falls in the Home (This education is for all patients over 65 regardless of symptoms) As you get older, falls are more likely. Thats because your reaction time slows. Your muscles and joints may also get stiffer, making them less flexible. Illness, medications, and vision changes can also affect your balance. A fall could leave you unable to live on your own. To make your home safer, follow these tips: Floors Put nonskid pads under area rugs Remove throw rugs Replace worn floor coverings Tack carpets firmly to each step on carpeted stairs. Put nonskid strips on the edges of uncarpeted stairs Keep floors and stairs free of clutter and cords Arrange furniture so there are clear pathways Clean up any spills right away Bathrooms Install grab bars in the tub or shower Apply nonskid strips or put a nonskid rubber mat in the tub or shower Sit on a bath chair to bathe Use bathmats with nonskid backing Lighting Keep a flashlight in each room Put a nightlight along the pathway between the bedroom and the bathroom [place] Patient Education Copyright 2008 - 2010 [place] except where otherwise noted Preventing Falls: Exercises to Improve Balance, Flexibility, Strength, and Staying Power (This education is for all patients over 65 regardless of symptoms) Certain types of exercises may help make you less likely to fall. Try the ones below. Or do other exercises that your healthcare provider suggests. Depending on your health, you may need to start slowly. Dont let that stop you. Even small amounts of exercise can help you. Be sure to talk to yourhealthcare provider before starting any exercise program. Improve Balance Many types of exercise can help improve balance. Theo chi and yoga are good examples. Heres another one to try. You can do it anytime and almost anywhere. Stand next to a counter or solid support. Push yourself up onto your tiptoes. Hold for 5 seconds. If you start to lose your balance, hold on to the counter. Rest and repeat 5 times. Work up to holding for 20 to 30 seconds, if you can. Increase Flexibility Being more flexible makes it easier for you to move around safely. Try exercises like the seated hamstring stretch. Sit in a chair and put one foot on a stool. Straighten your leg and reach with both hands down either side of your leg. Reach as far down your leg as you can. Hold for about 20 seconds. Go back to the starting position. Then repeat 5 times. Switch legs. Build Strength Resistance exercises help build strength. You can do them without equipment. Or you can use weights, elastic bands, or special machines. One such exercise is called the biceps curl. You can hold a 1 pound weight or even a can of soup. Do this exercise at least 3 times a week. Strive for everyday. Sit up straight in a chair. Keep your elbow close to your body and your wrist straight. Bend your arm, moving your hand up to your shoulder. Then slowly lower your arm. Repeat 5 times. Switch to the other arm. Build Your Staying Power Aerobic exercises make your heart and lungs stronger so you can keep moving longer. Walking and swimming are two of the best types of exercises you can do. Using a stationary bike is great, too. Find an aerobic exercise that you enjoy. Start slowly and build up. Even 5 minutes is helpful. Aimfor a goal of 30 minutes, at least 3 times a week. You dont have to do 30 minutes in one session. Break it up and walk a little throughout the day. More Helpful Tips Start easy. Slowly work up to doing more. Talk with your healthcare provider about the best exercises for you. Call senior centers or health clubs about exercise programs. If needed, have a family member watch you walk every so often to check your stability. Exercise with a friend. Choose an activity you both enjoy. Try exercises that you can do anytime, anywhere. Here are two examples. Have someone with you when you first try these: Practice walking by placing one foot right in front of the other. Stand up and sit down 10 times. Repeat this throughout the day. [place] Patient Education Copyright 2008 - 2010 [place] except where otherwise noted. Preventing Falls: Moving Safely Using a Cane or Walker (This education is for all patients over 65 regardless of symptoms) Keep the cane away from your feet so you dont trip. A walking aid, such as a cane or walker, can help you stay more independent and avoid falls. Remember to keep your walking aid within easy reach when youre in a chair or in bed. And learn how to use it safely so you dont injure yourself. Using a Cane If you have a stronger side, hold the cane on that side. Get your balance. Move the cane and your weaker leg forward. Support your weight on both the cane and your weaker side. Step with your stronger leg. Start again from step 1. If youre using a folding walker, be sure you know how to lock it open. Check that its locked open before each use. Using a Walker Roll the walker (or lift it, if youre using one without wheels) forward about 12 inches. Step forward with your weaker leg first. Use the walker to help keep your balance. Bring your other foot forward to the center of the walker. Start again from step 1. Helpful Tips Check with your healthcare provider about the right walking aid to use. Ask about a walker with a seat attached. Check the tips of your cane or walker to make sure they have nonskid covers. Move slowly from room to room. Dont costello. Sit down to get dressed. Use a amirah pack or backpack to keep your hands free. Get help for jobs that mean climbing, even on a stepstool. [place] Patient Education Copyright 2008 - 2010 [place] except where otherwise noted. Urinary Incontinence Plan of Care Documentation: (This education is for all patients over 65 regardless of symptoms) Current medications reconciled. Patient encouraged to: Practice kegal exercises Provide education materials Use the restroom every 2 hours throughout the day Limit caffeine, alcohol, spicy foods and acidic foods Keep a bladder diary Limit fluid intake 3-4 hours before bed Lose weight Prevent constipation Take fluid pills at a time when you can get to the bathroom quickly Control sugar better if diabetic Limit fluid intake to 60 oz. per day Wear support stockings (TEDs)if you have edema Michelle Tim LPN 03/11/2023 Kegel Exercises Kegel exercises dont require special clothing or equipment. Theyre easy to learn and simple to do. And if you do them right, no one can tell youre doing them, so they can be done almost anywhere. Your doctor, nurse, or physical therapist can answer any questions you have and help you get started. A Weak Pelvic Floor The pelvic floor muscles may weaken due to aging, and vaginal childbirth, injury, surgery, chronic cough, or lack of exercise. If the pelvic floor is weak, your bladder and other pelvic organs may sag out of place. The urethra may also open too easily and allow urine to leak out. Kegel exercises can help you strengthen your pelvic floor muscles so they can better support the pelvic organs and control urine flow. How Kegel Exercises Are Done Try each of the Kegel exercises described below. When youre doing them, try not to move your leg, buttock, or stomach muscles. While youre urinating, try to stop the flow of urine. Start and stop it as often as you can. Contract as if you were stopping your urine stream, but do it when youre not urinating. Tighten your rectum as if trying not to pass gas. Contract your anus, but dont move your buttocks. Helpful Hints Do your Kegels as often as you can. The more you do them, the faster youll feel the results. Pick an activity you do often as a reminder. For instance, do your Kegels every time you sit down. Tighten your pelvic floor before you sneeze, get up from a chair, cough, laugh, or lift. This protects your pelvic floor from injury and can help prevent urine leakage. Try to hold each Kegel for a slow count to five. You probably wont be able to hold them for thatlong at first, but keep practicing. It will get easier as your pelvic floor gets stronger. Eventually, special weights that you place in your vagina may be recommended to help make your Kegels even more effective. [place] Patient Education Copyright 2009 - 2010 [place] except where otherwise noted. Here are some helpful tips for your urinary incontinence: (This education is for all patients over 65 regardless of symptoms) Practice Kegel exercises Use the restroom every 2 hours throughout the day Limit caffeine, alcohol, spicy foods, and acidic foods Keep a bladder diary Limit fluid intake 3-4 hours before bed Lose weight Prevent constipation Take fluid pills at a time when can get to the bathroom quickly Control sugar better if diabetic Limit fluid intake to 60 oz. per day Any questions, please feel free to contact our office. Possible side effects of RSV vaccine, (Respiratory Syncytial Virus), are usually mild and can include: Soreness, swelling or redness at injection site Low grade fever Body aches or joint pain Headache Nausea or diarrhea You may use a fever/pain reducing medication for these symptoms. LET YOUR DOCTOR KNOW IMMEDIATELY IF YOU HAVE DIFFICULTY BREATHING OR SWALLOWING, EXPERIENCE ITCHINGOF FEET OR HANDS, HAVE SWELLING OF EYES, FACE OR INSIDE OF NOSE. documented in this encounter Progress Notes * Michelle Tim LPN - 03/11/2023 10:57 AM EST Fall Risk Plan of Care Documentation: - Current medications reconciled Patient encouraged to: - Exercise - Provide education materials for Core strengthening - Utilize assistive/adaptive devices - Provide education materials - Avoid multifocal lenses when walking - Avoid hazards in home - Provide education materials - Maintain a regular toileting schedule Michelle Tim LPN 03/11/2023 Urinary Incontinence Plan of Care Documentation: (This education is for all patients over 65 regardless of symptoms) Current medications reconciled. Patient encouraged to: Practice kegal exercises Provide education materials Use the restroom every 2 hours throughout the day Limit caffeine, alcohol, spicy foods and acidic foods Keep a bladder diary Limit fluid intake 3-4 hours before bed Lose weight Prevent constipation Take fluid pills at a time when you can get to the bathroom quickly Control sugar better if diabetic Limit fluid intake to 60 oz. per day Wear support stockings (TEDs)if you have edema Michelle Tim LPN 03/11/2023 Does the patient have an illness today with a fever more than 101F? No Has the patient ever had a serious allergic reaction after receiving a vaccination? No Does the patient have Medicare Part D? No Verified patient has prescription/drug coverage. Patient has been informed that [employer] co-pays are close to $0. In most cases co-pays will be around $10. The maximum co-pay patients may get could be as high as $200 not applicable. RSV Vaccine Information Sheet has been provided. Michelle Tim LPN 03/11/2023 11:41 AM IMMUNIZATION ADMINISTRATION DOCUMENTATION Time Out Procedure Performed: Yes Patient Identified (Ask Name/Date of ): Yes Patient allergic to latex?No VFC Stock? No Immunization(s) verified: Yes, Immunization Name: RSV, VIS Sheet(s) given: Yes Verified Side and Site: Yes Verified Shot(s) with Parent(s)/Patient: Yes RSV was administered per clinic protocol. Patient received the RSV VIS (Vaccine Information Sheet). Michelle Tim LPN, 03/11/2023, 11:41 AM * Aviva Rossi DO - 03/11/2023 10:56 AM EST SUBJECTIVE: Chief Complaint Patient presents with Follow Up HPI: Lisa Gamboa is a 68 year old female who presents today for regular return. Pt notes she had a fall right before . She fell going out her back door. She notes that she skinned herknee. She had a lot of knee pain for a period of time. She notes that it is now just tender under the scab. She is walking at her baseline now. No other injuries. She did have help from her neighbor to get up as she was yelling and they heard her. She notes she had a broken window and was concerned mice and squirrels were getting it. She is having her window and front door replaced. She had a new roof put on as well. She had called someone to help her clean out the home but notes she has not heard back. Pt feels that her sugars have been ok. She is paying less attention to them she notes. She does notfeel they are terrible. She is taking xultophy in the morning. She decreased her lantus to 8mg. Sheis using some sort of a sliding scale for her short acting insulin. She is using a unit for about 15 BG. She had been getting some lows in the high 60s recently. She notes that she just needs to pay more attention to it. She is trying to eat less. She has had weight loss. Pt states that she thinks she had an episode of a.fib that lasted hours. She states that she hears her pulse and it was irregularly irregular. She has no known history of A.fib. PHM: Patient Active Problem List Diagnosis Code ADVANCE DIRECTIVE INFORMATION IBS (irritable bowel syndrome) K58.9 Stress incontinence N39.3 Type 2 diabetes mellitus with hemoglobin A1c goal of less than 8.0% ([facility]) E11.9 Myasthenia gravis ([facility]) G70.00 Chronic cough R05.3 Routine general medical examination at a health care facility Z00.00 Central serous retinopathy H35.719 Productive cough R05.8 Left knee injury S89.92XA Major depression in partial remission ([facility]) F32.4 Elevated WBC count D72.829 Ex-smoker Z87.891 Microalbuminuric diabetic nephropathy ([facility]) E11.21 Body mass index (BMI) of 50.0 to 59.9 in adult ([facility]) Z68.43 Other specified peripheral vascular diseases ([facility]) I73.89 Diabetes mellitus with peripheral vascular disease ([facility]) E11.51 Dyslipidemia E78.5 Current Outpatient Medications Medication Sig Dispense Refill Magnesium Oxide 400 MG Oral Capsule Take 1 Capsule by mouth daily. Cyanocobalamin 1000 MCG Oral Tablet (Cyanocobalamin) Take 1 Tablet by mouth daily. Vision Formula Eye Health Oral Capsule Take 1 Capsule by mouth daily. buPROPion HCl ER (SR) 150 MG Oral Tablet Extended Release 12 Hour (Wellbutrin SR) Take 1 Tablet by mouth daily. 90 Tablet 0 buPROPion HCl ER (SR) 100 MG Oral Tablet Extended Release 12 Hour (Wellbutrin SR) Take 1 Tablet by mouth in the morning. 90 Tablet 0 Potassium Chloride ER 10 MEQ Oral Tablet Extended Release Take 1 Tablet by mouth in the morning. Systane Complete PF 0.6 % Ophthalmic Solution (Propylene Glycol (PF)) Instill 1 Drop into eye as needed for Dry eyes. Furosemide 40 MG Oral Tablet (Lasix) Take 1 Tablet by mouth in the morning. Losartan Potassium 100 MG Oral Tablet (Cozaar) TAKE ONE TABLET BY MOUTH EVERY DAY 90 Tablet 0 Famotidine 20 MG Oral Tablet (Pepcid) TAKE [...] directed per titration schedule 45 mL 3 Insulin Glargine Solostar 100 UNIT/ML Subcutaneous Solution Pen-injector Titrate down per titrationschedule as starting Xultophy Myrbetriq 50 MG Oral Tablet Extended Release [...] as needed for Dyspnea. 54 g 1 Dexcom G6 Sensor Use as directed. Use as directed every 10 days to monitor blood sugars Insulin Syringe-Needle U-100 30G X 5/16" 0.3 ML USE TO INJECT TWO TO THREE TIMES DAILY 300 Each 3 Pen Topsham 3/16" 31G X 5 MM Use daily [...] tachycardia) 80s due to albuterol, theophylline Pyelonephritis [address] [place] [address] Sleep apnea Sleep apnea, obstructive Stress incontinence Past Surgical History: Procedure Laterality Date , INDUCED BY D&C COLONOSCOPY, DIAGNOSTIC (RECTUM) N/A 09/18/2022 hemorrhoids/multiple polyps/biopsies show adenomatous and tubulovillous adenoma/recall 3 months/colonoscopy/[place] DENTAL SURGERY PROCEDURE NEC EGD, FLEXIBLE, DIAGNOSTIC 09/27/2015 normal/[facility] LAPAROSCOPY TOTAL HYSTX, UTERUS 250GM OR LESS TUBE/OVARY 02/02/2013 LAPAROSCOPIC HYSTERECTOMY REMOVAL TUBES AND OVARIES FOR UTERUS 250GM OR LESS performed by Elizabeth Phillips DO at OR [facility] Review of patient's allergies indicates: Allergen Reactions [...] Social History Tobacco Use Smoking status: Former Packs/day: 1.00 Years: 25.00 Additional pack years: 0.00 Total pack years: 25.00 Types: Cigarettes Passive exposure: Past Smokeless tobacco: [...] for arthralgias, gait problem and joint swelling. As per HPI Skin: Positive for wound. Negative for color change, pallor and rash. OBJECTIVE: BP 136/78 (BP Site: Left Arm, BP Position: Sitting, BP Cuff Size: Large) | Pulse 83 | Temp 35.9 C(96.6 F) (Tympanic) | Resp 16 | Ht 1.575 m (5' 2") | Wt 127.7 kg (281 lb 8 oz) | SpO2 99% | BMI 51.49 kg/m | BSA 2.36 m PHYSICAL EXAM: Physical Exam Constitutional: General: [...] tenderness or deformity. Normal range of motion. Skin: General: Skin is warm and dry. Coloration: Skin is not pale. Findings: No erythema or rash. Comments: Scab of right knee Neurological: Mental Status: She is alert and oriented to person, place, and time. ASSESSMENT/PLAN: (I49.9) Irregular heart rate (primary encounter diagnosis) Plan: EXTERNAL EKG 8 TO 15 DAYS Pt will have ZIO placed today. Regular on exam. Unclear what rhythm she is feeling. (E11.9) Type 2 diabetes mellitus with hemoglobin A1c goal of less than 8.0% ([facility]) Plan: Pt with some low sugars at times. Pt feels that her sugars are better controlled now. She will remain on current regimen. Gaby will reach out in next 1-2 weeks to monitor. (T14.8XXA) Abrasion Plan: Pt will monitor. No evidence of infection presently. She will monitor. (Z13.9) Risk and functional assessment Plan: see nursing note. (Z29.11) Need for RSV vaccination Plan: RSV VAC., BIVALENT, PERFUSION F, PF,0.5 ML (ABRYSVO), Abrysvo 120 MCG/0.5ML Intramuscular Solution Reconstituted (RSV Pre-Fusion F A&B Vac [facility]) Vaccine given. See admin record. Follow-up: 3 months Total time today including reviewing chart before the visit, pertinent labs, imaging reports, face to face time, and documentation time was 34 minutes. Aviva Rossi DO documented in this encounter Nursing Notes * Michelle Tim LPN - 03/11/2023 12:12 PM EST ZIO patch - [id number] applied - to be worn for 14 days. Patient instructed on use and acknowledgedunderstanding. * Michelle Tim LPN - 03/11/2023 10:54 AM EST Patient here for routine follow up. Reports she fell approx 1 month ago - noted large area of eschar on right knee. Reports the area is tender under eschar. States her right knee was also sore after the fall. Reports she fell going outside - states she lost her balance. States she did not hit her head. documented in this encounter Plan of Treatment Upcoming Encounters Date Type Department Care Team (Late st Contact Info) Description 03/25/2023 9:20 AM EST [facility]icine [facility] [address] [facility] [place] [address] Neetu Phillips, DO [address] [facility] [place] [address] 06/17/2023 8:40 AM EDT Office Visit Family Practice [address] [facility] [address] [place] [address] Aviva Rossi, [address] [place] [address] 11/11/2023 1:00 PM EDT Nurse Only Ancillary [address] [facility] [address] [place] [address] College, Nurse Annual Wellness Visit [address] [place] [address] Scheduled Orders Name Type Priority Associated Diagnoses Orde r Schedule EXTERNAL EKG 8 TO 15 DAYS Holter Routine Irregular heart rate Expected: 03/12/2023 (Approximate), Expires: 03/11/2024 Scheduled Procedures Name Priority Associated Diagnoses Date/Ti [...] 05/20/2022, Additional history exists GFR 01/08/2024 01/07/2023, 07/2022, [...] as of this encounter Visit Diagnoses Diagnosis Irregular heart rate- Primary Cardiac dysrhythmia, unspecified Type 2 diabetes mellitus with hemoglobin A1c goal of less than 8.0% (HCC) Abrasion Abrasion or friction burn of other, multiple, and unspecified sites, without mention of infection Risk and functional assessment Screening for unspecified condition Need for RSV vaccination Need for prophylactic vaccination and inoculation against respiratory syncytial virus documented in this encounter Advance Directives Latest [...] and were consensually agreed upon. Care Teams Dental Technician Relationship Specialty Start Date End Date Aviva Rossi DO [address] [place] [address] PCP - General Family Medicine 05/09/22 documented as of this encounter
--- OUTSIDE RECORDS SUMMARY | 2023-08-14 12:14 | External Medical Summary | Summary of Care ---
Author Name Unknown Organization [facility] Address [address] [place] [address] Phone [phone] Care Team Providers Care Electromechanical Assembler Name Role Phone BrianAviva rust Christian GRIGGS Primary Care Provider Reason for Visit * Reason Comments Follow Up Encounter Details Date Type Department Care Team (Late st Contact Info) Description 03/25/2023 9:20 AM EST [facility] [address] [place] [phone] Neetu Phillips DO [address] [place] [phone] CATHERINE (obstructive sleep apnea)* Allergies Active Allergy [...] hemoglobin A1c goal of less than 8.0% ([facility]),Hypertension goal BP (blood pressure) < [...] 24 Active Insulin Syringe-Needle U-100 30G X 516" 0.3 ML USE TO INJECT TWO TO [...] schedule 45 mL 3 11/27/2022 Active Pen [place] 06/06" 31G X 5 MM Use daily [...] start lantus/novolog-refer MTM----, Psychiatrist. Sees Dr Sanders-Lawrence @[facility] [phone] IBS (irritable bowel syndrome) Stress incontinence Type 2 diabetes mellitus wit h hemoglobin A1c goal of less than 8.0% Overview: ICD-10 update of inactive term Myasthenia gravis Overview: 1999. Dx . Vocal cords. ENT in [facility]. Chronic cough Central serous retinopathy Productive cough [...] mRNA, LNP-s, No Pre serve, 2-Dose Series ([employer]) 09/21/2020,05/22/2020 COVID-19, MRNA-LNP, 23-24, P F, 30 MCG/0.3 mL, 12 YRS AND ABOVE, IM (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 She feels she slept well the night of the PSG. In the past, the humidifier on her PAP was an issue. 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) Microalbuminuric diabetic nephropathy (HCC) 04/28/2014 Morbid obesity ([facility]) Myasthenia gravis ([facility]) Ocular migraine Productive cough chronic PSVT (paroxysmal supraventricular tachycardia) 80s due to albuterol, theophylline Pyelonephritis 2x hospital Sleep apnea Sleep apnea, obstructive Stress incontinence Past Surgical History: Procedure Laterality Date , INDUCED BY D&C COLONOSCOPY, DIAGNOSTIC (RECTUM) N/A 09/18/2022 hemorrhoids/multiple polyps/biopsies show adenomatous and tubulovillous adenoma/recall 3 months/colonoscopy/[place] DENTAL SURGERY PROCEDURE NEC EGD, FLEXIBLE, DIAGNOSTIC 09/27/2015 normal/[facility] LAPAROSCOPY TOTAL HYSTX, UTERUS 250GM OR LESS TUBE/OVARY 02/02/2013 LAPAROSCOPIC HYSTERECTOMY REMOVAL TUBES AND OVARIES FOR UTERUS 250GM OR LESS performed by Elizabeth Phillips DO [place] [facility] [place] Outpatient Medications Medication Sig Dispense Refill [...] mouth in the morning. 90 Tablet 0 Dexcom G6 Sensor Use as directed. Use [...] TABLET BY MOUTH DAILY 100 Tablet 3 Insulin Syringe-Needle U-100 30G X 5/16" 0.3 ML USE TO INJECT TWO TO THREE TIMES DAILY 300 Each 3 NovoLOG FlexPen 100 UNIT/ML Subcutaneous Solution Pen-injector (insulin aspart) INJECT WITH WITH EACH MEAL PER CARB RATIO 1:7 AND CORRECTION FACTOR 1:20>120 MAX DAILY DOSE 35 UNITS 30 mL 3 Xultophy 100-3.6 UNIT-MG/ML Subcutaneous Solution Pen-injector (Insulin Degludec-Liraglutide) Inject up to 50 units daily subcutaneously as directed per titration schedule 45 mL 3 Pen Selma 3/16" 31G X 5 MM Use daily [...] as needed for Dyspnea. 54 g 1 Current Facility-Administered Medications Medication Dose Route Frequency Provider Last Rate Last Admin Albuterol Sulfate (Proventil) (2.5 MG/3ML) 0.083% inhalation solution 2.5 mg 2.5 mg Nebulizer Once PRN Aviva Rossi DO Review of patient's allergies indicates: Allergen Reactions Codeine Nausea and vomiting Lisinopril ?cough Penicillin G Hives Vicodin [Hydrocodone-Acetaminophen] Nausea and vomiting PHYSICAL EXAM: Ht 1.575 m (5' 2") | BMI 51.49 kg/m | BSA 2.36 m Constitutional: Alert, oriented in no acute distress Skin: no markings on face Chest: Normal respiratory effort at rest Neuro: Normal speech and comprehension Psych: Appropriate mood and affect ASSESSMENT/PLAN: Obstructive Sleep Apnea We went over the diagnosis of obstructive sleep apnea with the patient, as well as the possible treatment options. Patient opted to try AutoPAP [id number] Even a mild to moderate weight loss [...] otherwise impaired. Follow-up with Sleep Medicine in 31-90 days of starting PAP. Neetu Phillips DO I spent a total of 30-39 minutes (exact time 30 mins) on the date of service in preparation, delivery, and documentation of the care provided to Lisa Gamboa excluding any time spent in the performance of separately billed services. documented in this encounter Nursing Notes * Akua Zazueta LPN - 03/20/2023 10:43 AM EST Pt for video visit f/u to review PSG results. She is not currently using CPAP. documented in this encounter Plan of Treatment Upcoming Encounters Date Type Department Care Team (Late st Contact Info) Description 06/17/2023 8:40 AM EDT Office Visit Family Practice [address] [place] [address] Aviva Rossi DO [address] [place] [address] 11/11/2023 1:00 PM EDT Nurse Only Ancillary [address] [place] [address] College, Nurse Annual Wellness Visit [address] [place] [address] Scheduled Procedures Name Priority Associated Diagnoses Date/Ti me COLONOSCOPY FLEXIBLE PROXIMA L DIAGNOSTIC Recall History of colonic polyps Health Maintenance Due Date Last Done Comments Hepatitis B (1 of 3 - Risk 3-dose series) 2013 Diabetic Foot Exam 05/09/2023 05/09/2022, 0 11/08/2015, 10/12/2014, Additional history exists Albumin/Creatinine Ratio 06/05/20232 023, 04/27/2014, 09/03/2013 Mammogram 06/05/2023 06/04/2022, 09/17/2013 HbA1c 07/09/2023 01/07/2023, 05/1 08/2022, 04/19/2022, Additional history exists Diabetic Eye Exam [...] and were consensually agreed upon. Care Teams Electromechanical Assembler Relationship Specialty Start Date End Date Aviva Rossi DO [address] [place] [address] PCP - General Family Medicine 05/09/22 documented as of this encounter
--- OUTSIDE RECORDS SUMMARY | 2023-08-14 12:14 | External Medical Summary | Summary of Care ---
Author Name Unknown Organization [facility] Address [address] [place] [address] Phone [phone] Care Team Providers Care Leaf Sucker Operator Name Role Phone Aviva Rossi DO Primary Care Provider Reason for Visit * Reason Onset Date Comments Appointment 03/27/2023 Encounter Details Date Type Department Care Team (Late st Contact Info) Description 03/27/2023 Telephone Sleep Disorders Ctr [facility] [address] [place] [phone] Neetu Phillisp DO [address] [place] [phone] Appointment Allergies Active Allergy Reactions Criticality Noted Date Comments Codeine 11/20/2012 Nausea and vomiting Lisinopril 06/12/2015 ?cough Penicillin G 11/20/2012 Hives Hydrocodone-Acetaminophen 11/20/2012 Nausea and vomiting documented as of this encounter (statuses as of 03/28/2023) Medications Medication Sig Dispensed Refills Start Date [...] depressive disorder, single episode, in partial remission ([facility]) Take 1 Tablet by mouth [...] hemoglobin A1c goal of less than 8.0% ([facility]),Hypertension goal BP (blood pressure) < [...] schedule 45 mL 3 11/27/2022 Active Pen [place] 06/06" 31G X 5 MM Use daily [...] as of this encounter (statuses as of 03/28/2023) Active Problems Problem Noted Date Diagnosed Date [...] start lantus/novolog-refer MTM----, Psychiatrist. Sees Dr Sanders-Lawrence @[facility] [phone] IBS (irritable bowel syndrome) Stress incontinence Type 2 diabetes mellitus wit h hemoglobin A1c goal of less than 8.0% Overview: ICD-10 update of inactive term Myasthenia gravis Overview: 1999. Dx . Vocal cords. ENT in [facility]. Chronic cough Central serous retinopathy Productive cough Overview: chronic Left knee injury Major depression in partial remission Elevated WBC count documented as of this encounter (statuses as of 03/28/2023) Resolved Problems Problem Noted Date Diagnosed Date Resolved Date Ocular migraine 05/12/2022 05/12/2022 Endometrial carcinoma 11/12/20132022 Ovarian mass 12/17/2012 07/09/2013 Overview: S/p SANA BSO Endometrial thickening on ultrasound 12/17/2012 07/09/2013 Overview: ICD-10 update of inactive term Postmenopausal vaginal bleeding 12/17/2012 07/09/2013 Morbid obesity 12/26/2016 Overview: Per Obesity protocol #1 PMB (postmenopausal bleeding) 11/12/2013 documented as of this encounter (statuses as of 03/28/2023) Immunizations Name Administration Dates Next Due COVID-19 mRNA, LNP-s, No Pre serve, 2-Dose Series ([employer]) 09/21/2020,05/22/2020 COVID-19, MRNA-LNP, 23-24, P F, 30 MCG/0.3 mL, 12 YRS AND ABOVE, IM ([employer]) 01/07/2023 Covid-19, Mrna, Lnp-s, Pf, B ivalent, [...] encounter Miscellaneous Notes * Telephone Encounter - Nina London OSA - 03/28/2023 10:00 AM EST Pt is scheduled July 10 * Telephone Encounter - Nina London OSA - 03/27/2023 9:17 AM EST Lmom to scheduled return in 2/5 to 3 months documented in this encounter Plan of Treatment Upcoming Encounters Date Type Department Care Team (Late st Contact Info) Description 06/17/2023 8:40 AM EDT Office Visit Family Practice 65 [facility] [address] [place] [address] Aviva Rossi DO [address] [place] [address] 07/11/2023 10:40 AM EDT [facility] [phone] Neetu Phillips, [facility] [address] 11/11/2023 1:00 PM EDT Nurse Only Ancillary 65 [facility] 293 [place] [address] College, Nurse Annual Wellness Visit [address] [address] Scheduled Procedures Name Priority Associated Diagnoses Date/Ti [...] 05/20/2022, Additional history exists GFR 01/08/2024 01/07/2023, 0707/2022, 08/06/2022, Additional history exists TSH 01/08/2024 01/07/2023, [...] and were consensually agreed upon. Care Teams Leaf Sucker Operator Relationship Specialty Start Date End Date Aviva Rossi DO [address] [place] [address] PCP - General Family Medicine 05/09/22 documented as of this encounter
--- OUTSIDE RECORDS SUMMARY | 2023-08-14 12:14 | External Medical Summary | Summary of Care ---
Author Name Unknown Organization [facility] Address [address] [place] [address] Phone [phone] Care Team Providers Care Drafting Teacher Name Role Phone BrianAviva rust Christian GRIGGS Primary Care Provider Encounter Details Date Type Department Care Team (Late st Contact Info) Description 02/23/2023 Telephone Sleep Disorders Ctr [facility] [place] [address] [place] [phone] Neetu Phillips DO [address] [place] [phone] Allergies Active Allergy Reactions Criticality Noted Date Comments Codeine 11/20/2012 Nausea and vomiting Lisinopril 06/12/2015 ?cough Penicillin G 11/20/2012 Hives Hydrocodone-Acetaminophen 11/20/2012 Nausea and vomiting documented as of this encounter (statuses as of 02/25/2023) Medications Medication Sig Dispensed Refills Start Date [...] depressive disorder, single episode, in partial remission ([facility]) Take 1 Tablet by mouth [...] hemoglobin A1c goal of less than 8.0% ([facility]),Hypertension goal BP (blood pressure) < [...] schedule 45 mL 3 11/27/2022 Active Pen [place] 06/06" 31G X 5 MM Use daily [...] as of this encounter (statuses as of 02/25/2023) Active Problems Problem Noted Date Diagnosed Date [...] start lantus/novolog-refer MTM----, Psychiatrist. Sees Dr Sanders-Lawrence @[facility] [phone] IBS (irritable bowel syndrome) Stress incontinence Type 2 diabetes mellitus wit h hemoglobin A1c goal of less than 8.0% Overview: ICD-10 update of inactive term Myasthenia gravis Overview: 1999. Dx . Vocal cords. ENT in [facility]. Chronic cough Central serous retinopathy Productive cough Overview: chronic Left knee injury Major depression in partial remission Elevated WBC count documented as of this encounter (statuses as of 02/25/2023) Resolved Problems Problem Noted Date Diagnosed Date Resolved Date Ocular migraine 05/12/2022 05/12/2022 Endometrial carcinoma 11/12/20132022 Ovarian mass 12/17/2012 07/09/2013 Overview: S/p SANA BSO Endometrial thickening on ultrasound 12/17/2012 07/09/2013 Overview: ICD-10 update of inactive term Postmenopausal vaginal bleeding 12/17/2012 07/09/2013 Morbid obesity 12/26/2016 Overview: Per Obesity protocol #1 PMB (postmenopausal bleeding) 11/12/2013 documented as of this encounter (statuses as of 02/25/2023) Immunizations Name Administration Dates Next Due COVID-19 mRNA, LNP-s, No Pre serve, 2-Dose Series ([employer]) 09/21/2020,05/22/2020 COVID-19, MRNA-LNP, 23-24, P F, 30 MCG/0.3 mL, 12 YRS AND ABOVE, IM ([employer]) 01/07/2023 Covid-19, Mrna, Lnp-s, Pf, B ivalent, [...] Telephone Encounter - Nina London OSA - 02/25/2023 10:03 AM EST Pt scheduled for March 25. Patient is aware. * Telephone Encounter - Neetu Phillips DO - 02/23/2023 8:12 PM EST Please make PSG results appt documented in this encounter Plan of Treatment Upcoming Encounters Date Type Department Care Team (Late st Contact Info) Description 03/11/2023 10:40 AM EST Office Visit Family Practice 65 [facility] [address] [place] [address] Aviva Rossi DO [address] [place] [address] 03/25/2023 9:20 AM EST Telemedicine Sleep Disorders Ctr [facility] 132 [place] [phone] Neetu Phillips DO 132 [place] [address] 11/11/2023 1:00 PM EDT Nurse Only Ancillary 65 [facility] 293 [place] [address] College, Nurse Annual Wellness Visit [address] [address] Scheduled Procedures Name Priority Associated Diagnoses Date/Ti [...] and were consensually agreed upon. Care Teams Drafting Teacher Relationship Specialty Start Date End Date Aviva Rossi DO [address] [place] [address] PCP - General Family Medicine 05/09/22 documented as of this encounter
[2023-08-14] MEDS: FUROSEMIDE 40 MG/4 ML VIAL IV ONE (12:48)
--- NOTE | 2023-08-14 13:22 | Pharmacy Report ---
Pharmacy Glycemic Short Note 2 - Date of Service August 14, 2023 - Glycemic Short BSG Results (Last 24 hours): 08/13/23 08/13/23 08/14/23 12:20 19:12 02:46 Glucose 113 H 104 H POC Glucose 127 H 08/14/23 08/14/23 07:42 11:01 Glucose POC Glucose 113 H 226 H OUTPATIENT ANTIDIABETIC REGIMEN: * Xultophy 26 units daily * Lantus 6 units daily * Novolog scale, CF 20, CR 7 * A1c: 6.3% ASSESSMENT: * Patient admitted with new onset A. fib currently on a heparin infusion. * BSG this morning was 113 mg/dL. Of note patient's own glucometer was reading in the 60s. While this will not be utilized for treatment per policy given discrepancy in values, patient refused NovoLog this morning and required a reduced dose of Lantus based on the low glucometer reading. This was discussed with Dr. Jean Baptiste. Will proceed with a lower dose of 20 units of lantus this morning and continue with home NovoLog scale. * Patient is ordered a diet. PLAN FOR INPATIENT GLYCEMIC CONTROL: * Hold outpatient oral diabetes medications * Basal insulin * Lantus 20 units SQ qam * Bolus insulin * NovoLog per scale ACHS or Q6hrs while NPO * Goal Range: Low 110 mg/dL - High 140 mg/dL * Correction Factor: 20 mg/dL/unit * Nutritional / Prandial insulin per carb ratio of 1 unit per 7 grams CHO consumed
--- NOTE | 2023-08-14 15:19 | Electrocardiogram Report ---
Test Reason : Blood Pressure : / mmHG Vent. Rate : 082 BPM Atrial Rate : 082 BPM P-R Int : 160 ms QRS Dur : 082 ms QT Int : 382 ms P-R-T Axes : 054 040 063 degrees QTc Int : 446 ms Normal sinus rhythm Normal ECG When compared with ECG of 13-AUG-2023 12:10, Sinus rhythm has replaced Atrial fibrillation Confirmed by Antonino Kelly ([id number]) on 08/14/2023 3:18:50 PM Referred By: Aviva Rossi Confirmed By:Antonino Kelly
--- NOTE | 2023-08-14 15:28 | Electrocardiogram Report ---
Test Reason : Blood Pressure : / mmHG Vent. Rate : 072 BPM Atrial Rate : 072 BPM P-R Int : 158 ms QRS Dur : 082 ms QT Int : 394 ms P-R-T Axes : 061 043 051 degrees QTc Int : 431 ms Normal sinus rhythm Low voltage QRS Borderline ECG When compared with ECG of 13-AUG-2023 18:51, (unconfirmed) No significant change was found Confirmed by Antonino Kelly ([id number]) on 08/14/2023 3:27:59 PM Referred By: Aviva Rossi Confirmed By:Antonino Kelly
--- NOTE | 2023-08-14 15:35 | Hospitalist Progress Note ---
Date of Service August 14, 2023 Assessment & Plan (1) Atrial fibrillation with rapid ventricular response: Plan: Atrial Fibrillation RVR: Newly diagnosed Troponin elevation likely demand ischemia secondary to tachycardia --CXR:No acute chest disease. --TSH: 2.5 Resting echo obtained -LV systolic function is normal. LVEF 60 to 65%. Mild concentric LVH. Grade 1 diastolic dysfunction. LA is mildly dilated. Mild mitral annular calcification. Trace tricuspid regurg. Aortic valve sclerosis mild, without significant aortic valvular stenosis. Monitor electrolytes and replace Started on metoprolol and IV heparin Converted to sinus rhythm Cardiology consulted - start Eliquis , increase metoprolol tartrate to 25 mg bid (pt provided with coupon for Eliquis by CM) Urinary tract infection Urine culture pending Empirically started on Rocephin, cont. for now Possible acute CHF--likely diastolic Reports increased leg edema, dyspnea on exertion BNP 164 Received IV Lasix in ED and again today echo as above Continue home diuretics Monitor I's and O's, daily weight cardiology following DM Type II: Last A1c: 6.7 Update A1C Continue ISS, basal Insulin, Accu checks, Diabetic diet Pharmacy Glycemic control consult CATHERINE continue CPAP HS Morbid obesity BMI 54, needs counseling and further pcp follow up Other chronic conditions Hypertension Hyperlipidemia Depression Hypothyroidism B12 deficiency Continue home medications DVT Px: IV heparin -> plan to transition to eliquis CODE STATUS Full Code Admission and Anticipated Discharge Date Admission Date: August 13, 2023 Subjective Pt seen in follow up of new onset Afib w/ RVR, UTI Converted to sinus rhythm Currently laying in bed in NAD No chest pain, shortness of breath, no abd. pain, n/v Review of Systems 2 Review of Systems: All systems reviewed & are unremarkable except as noted in Subjective Physical Exam Physical Exam: General Appearance: Obese F in NAD Head: normocephalic, Atraumatic Eyes: normal inspection, EOMI Neck: supple Respiratory/Chest: Normal breath sounds, CTA, No accessory muscle use Cardiovascular: regular, No murmur Abdomen/GI: Soft, obese, Non tender, Bowel sounds present Extremities/Musculoskeletal:normal inspection, 1+ B/L LE edema Neurologic/Psych:AAOX3, speech fluent, answers appropriately, moves extremities Skin: warm, dry Results & Data Results & Data Vital Signs (Past 12 Hours) Vital Signs Temp Pulse Pulse Resp BP BP Pulse Ox 08/14/23 11:14 37.1 C 70 18 136/70 94 08/14/23 09:56 08/14/23 09:00 78 17 08/14/23 08:16 73 14 97 08/14/23 08:16 122/76 08/14/23 08:00 71 14 96 08/14/23 07:00 70 17 08/14/23 06:00 72 16 08/14/23 05:00 70 19 08/14/23 04:36 36.9 C 72 18 124/62 95 08/14/23 04:29 124/62 08/14/23 04:29 72 16 O2 Del Method 08/14/23 11:14 Room Air 08/14/23 09:56 Nasal Cannula 08/14/23 09:00 08/14/23 08:16 08/14/23 08:16 08/14/23 08:00 08/14/23 07:00 08/14/23 06:00 08/14/23 05:00 08/14/23 04:36 Room Air 08/14/23 04:29 08/14/23 04:29 Laboratory Results 08/14/23 08/14/23 08/14/23 Range/Units 11:01 07:42 02:46 WBC 11.57 H (4.8-10.8) K/ul RBC 3.81 L (4.20-5.40) M/uL Hgb 10.9 L (12.0-16.0) g/dl Hct 33.9 L (37.0-47.0) % MCV 89.0 (80.0-100.0) fL MCH 28.6 (25.0-34.0) pg MCHC 32.2 (32.0-36.0) g/dL RDW Std Deviation 44.3 (36.4-46.3) fL RDW Coeff of Buck 13.5 (11.5-14.5) % Plt Count 257 (130-400) K/uL MPV 10.2 (9.4-12.4) fL Heparin Anti-Xa, Unfract 0.61 (0.3-0.7) IU/ml Sodium 138 (136-145) mmol/L Potassium 4.2 (3.5-5.1) mmol/L Chloride 106 (98-107) mmol/L Carbon Dioxide 26 (21-32) mmol/L Anion Gap 6 (3-11) BUN 26 H (6-23) mg/dl Creatinine 0.94 (0.6-1.2) mg/dl Est Cr Clr Drug Dosing 72.7 ml/min Est GFR ( Amer) 71.2 ml/min Est GFR (Non-Af Amer) 61.5 ml/min BUN/Creatinine Ratio 27.7 H (10-20) Glucose 104 H (70-99(Fasting)) mg/dl POC Glucose 226 H 113 H (70-99) mg/dl Estimat Average Glucose 134 mg/dl Hemoglobin A1c 6.3 H (4.5-5.6) % Calcium 8.6 (8.6-10.3) mg/dl Magnesium 2.1 (1.7-2.4) mg/dl Troponin I High Sens (0-14) pg/ml Nasal Screen MRSA (PCR) (Negative) 08/13/23 08/13/23 08/13/23 Range/Units 22:53 19:12 19:00 WBC (4.8-10.8) K/ul RBC (4.20-5.40) M/uL Hgb (12.0-16.0) g/dl Hct (37.0-47.0) % MCV (80.0-100.0) fL MCH (25.0-34.0) pg MCHC (32.0-36.0) g/dL RDW Std Deviation (36.4-46.3) fL RDW Coeff of Buck (11.5-14.5) % Plt Count (130-400) K/uL MPV (9.4-12.4) fL Heparin Anti-Xa, Unfract (0.3-0.7) IU/ml Sodium (136-145) mmol/L Potassium (3.5-5.1) mmol/L Chloride (98-107) mmol/L Carbon Dioxide (21-32) mmol/L Anion Gap (3-11) BUN (6-23) mg/dl Creatinine (0.6-1.2) mg/dl Est Cr Clr Drug Dosing ml/min Est GFR ( Amer) ml/min Est GFR (Non-Af Amer) ml/min BUN/Creatinine Ratio (10-20) Glucose (70-99(Fasting)) mg/dl POC Glucose 127 H (70-99) mg/dl Estimat Average Glucose mg/dl Hemoglobin A1c (4.5-5.6) % Calcium (8.6-10.3) mg/dl Magnesium (1.7-2.4) mg/dl Troponin I High Sens 42.9 H (0-14) pg/ml Nasal Screen MRSA (PCR) Negative (Negative) Medications Administered Current Inpatient Medications Acetaminophen (Acetaminophen 325 Mg Tab) 650 mg PO Q4H PRN PRN Reason: Pain or Fever Stop: 09/12/23 18:56 Last Admin: 08/14/23 11:20 Dose: 650 mg Albuterol (Albuterol Hfa 8 Gm Inhaler) 2 puffs INH Q4H PRN PRN Reason: Shortness Of Breath Or Wheezing Stop: 09/12/23 18:56 Apixaban (Apixaban 5 Mg Tablet) 5 mg PO BID [facility] Stop: 09/13/23 20:59 Atorvastatin Calcium (Atorvastatin 20 Mg Tab) 20 mg PO QAM [facility] Stop: 09/13/23 08:59 Last Admin: 08/14/23 08:13 Dose: 20 mg Bupropion HCl (Bupropion Sr 100 Mg Tabcr) 100 mg PO QAM [facility] Stop: 09/13/23 08:59 Last Admin: 08/14/23 08:13 Dose: 100 mg Bupropion HCl (Bupropion Sr 150 Mg Tabcr) 150 mg PO QAM [facility] Stop: 09/13/23 08:59 Last Admin: 08/14/23 08:14 Dose: 150 mg Cyanocobalamin (Cyanocobalamin (B-12) 500 Mcg Tablet) 1,000 mcg PO QAM [facility] Stop: 09/13/23 08:59 Last Admin: 08/14/23 08:13 Dose: 1,000 mcg Dextrose (Dextrose 50% 50 Ml Syringe) 25 - 50 ml IV UD PRN; Protocol PRN Reason: Hypoglycemia Protocol Stop: 09/12/23 18:56 Famotidine (Famotidine 20 Mg Tab) 20 mg PO DAILY [facility] Stop: 09/13/23 08:59 Last Admin: 08/14/23 08:13 Dose: 20 mg Fluoxetine HCl (Fluoxetine Hcl 20 Mg Cap) 60 mg PO QAM [facility] Stop: 09/13/23 08:59 Last Admin: 08/14/23 08:14 Dose: 60 mg Furosemide (Furosemide 40 Mg Tab) 40 mg PO DAILY [facility] Stop: 09/13/23 08:59 Last Admin: 08/14/23 08:14 Dose: 40 mg Glucagon (Glucagon For Inj 1 Mg Vial) 1 mg SQ UD PRN; Protocol PRN Reason: Hypoglycemia Protocol Stop: 09/12/23 18:56 Glucose (Glucose 40% Gel 15 Gm Tube) 15 - 30 gm PO UD PRN; Protocol PRN Reason: Hypoglycemia Protocol Stop: 09/12/23 18:56 Glucose (Glucose 10 Tab/Tube) 4 - 8 tab PO UD PRN; Protocol PRN Reason: Hypoglycemia Treatment Stop: 09/12/23 18:56 Heparin Sodium/Dextrose (Heparin Sodium/Dextrose) 25,000 units in 500 mls @ 30 mls/hr IV .[id number] [facility]; Protocol Stop: 09/12/23 18:56 Last Admin: 08/14/23 11:21 Dose: 1,500 units/hr, 30 mls/hr Ceftriaxone Sodium (Rocephin) 2,000 mg in 50 mls @ 100 mls/hr IV Q24H [facility] Stop: 08/19/23 17:59 Insulin Aspart (Insulin Aspart Per Unit Charge) 0 units SC ACHS [facility] Stop: 09/12/23 18:56 Last Admin: 08/14/23 12:48 Dose: 11 units Insulin Glargine (Lantus Per Unit Charge) 20 units SC QAM [facility] Stop: 09/13/23 08:59 Last Admin: 08/14/23 08:33 Dose: Not Given Levothyroxine Sodium (Levothyroxine Sodium 50 Mcg Tablet) 50 mcg PO DAILYBB [facility] Stop: 09/13/23 06:29 Last Admin: 08/14/23 06:05 Dose: 50 mcg Losartan Potassium (Losartan Potassium 50 Mg Tab) 100 mg PO QAM [facility] Stop: 09/13/23 08:59 Last Admin: 08/14/23 08:15 Dose: 100 mg Metoprolol Tartrate (Metoprolol Tartrate 1 Mg/Ml Vial) 2.5 mg IV Q6 PRN PRN Reason: Tachycardia HR>110 Stop: 09/12/23 18:56 Metoprolol Tartrate (Metoprolol Tartrate 25 Mg Tab) 25 mg PO BID [facility] Stop: 09/13/23 20:59 Miscellaneous (Carbohydrates For Hypoglycemia ) 15 - 30 gm PO UD PRN PRN Reason: Hypoglycemia Protocol Stop: 09/12/23 18:56 Miscellaneous Information (Pharmacy Glycemic Mgmt Consult) 1 each N/A UD PRN; Protocol PRN Reason: Consult Stop: 09/12/23 18:56 Ondansetron HCl (Ondansetron Inj 2 Mg/Ml 2 Ml Vial) 4 mg IV Q6H PRN PRN Reason: Nausea Stop: 09/12/23 18:56 Polyethylene Glycol (Polyethylene (Miralax) 17 Gm Pack) 17 gm PO DAILY PRN PRN Reason: Constipation Stop: 09/12/23 18:56 Vibegron (Vibegron 75 Mg Tab) 75 mg PO DAILY AMI Stop: 09/13/23 08:59 Last Admin: 08/14/23 08:13 Dose: 75 mg
[2023-08-14] MEDS: LIDOCAINE 5% 1 PATCH TD STA (17:56)
[2023-08-14] MEDS: cefTRIAXone SODIUM 2,000 MG/50 ML BAG IV SCH (17:56)
[2023-08-14] MEDS: APIXABAN 5 MG TABLET PO SCH (20:47)
[2023-08-14] MEDS: METOPROLOL TARTRATE 25 MG TAB PO SCH ×2 (21:19→21:45)
--- OUTSIDE RECORDS SUMMARY | 2023-08-15 00:44 | External Medical Summary | Summary of Care ---
Author Name Unknown Organization [facility] Address [address] [place] [address] Phone [phone] Care Team Providers Care Pipe Cutter Name Role Phone Aviva Rossi DO Primary Care Provider [phone] Reason for Visit * Reason Onset Date Comments Advice 08/13/2023 Irregular heartb eat Information 08/13/202308/12 Encounter Details Date Type Department Care Team (Late st Contact Info) Description 08/13/2023 Telephone Family Practice [address] [facility] [address] [place] [phone] Aviva Rossi DO [address] [place], [place] [id number] Advice (Irregular heartbeat); Information ... Allergies Active Allergy Reactions Criticality Noted Date Comments Codeine 11/20/2012 Nausea and vomiting Lisinopril 06/12/2015 ?cough Penicillin G 11/20/2012 Hives Hydrocodone-Acetaminophen 11/20/2012 Nausea and vomiting documented as of this encounter (statuses as of 08/13/2023) Medications Medication Sig Dispensed Refills Start Date [...] EVERY MORNING 200 Tablet 3 09/03/2022 10/22/19 Active Levothyroxine Sodium 50 MCG Oral Tablet (Levoxyl)Indication s:Acquired hypothyroidism TAKE 1 TABLET BY MOUTH DAILY AT LEAST 30 MINUTES PRIOR TO FIRST MEAL OF THE DAY OR OTHER MEDICATIONS 100 Tablet 3 08/06/2022 10/22/19 Active Atorvastatin Calcium 20 MG Oral Tablet (Lipitor) TAKE ONE TABLET BY MOUTH DAILY 100 Tablet 08/06/2022 10/22/19 24 Active Insulin Syringe-Needle U-100 [...] taking 30 units., Reported on 06/17/2023 Pen [place] 316" 31G X 5 MM Use daily to inject insulin 4 times daily 400 Each 1 11/27/2022 Active Insulin Glargine Solostar 100 UNIT/ML Subcutaneous Solution Pen-injectorIndicat ions:Diabetes mellitus with peripheral vascular disease (HCC),Type 2 diabetes mellitus with hemoglobin A1c goal of less than 8.0% ([facility]) Titrate down per titration schedule as starting [...] hemoglobin A1c goal of less than 8.0% ([facility]),Hypertension goal BP (blood pressure) < [...] as of this encounter (statuses as of 08/13/2023) Active Problems Problem Noted Date Diagnosed Date [...] start lantus/novolog-refer MTM----, Psychiatrist. Sees Dr Sanders-Lawrence @[facility] [phone] IBS (irritable bowel syndrome) Stress incontinence Type 2 diabetes mellitus wit h hemoglobin A1c goal of less than 8.0% Overview: ICD-10 update of inactive term Myasthenia gravis Overview: 1999. Dx . Vocal cords. ENT in [place]. Chronic cough Central serous retinopathy Productive cough Overview: chronic Major depression in partial remission documented as of this encounter (statuses as of 08/13/2023) Resolved Problems Problem Noted Date Diagnosed Date [...] Left knee injury 06/09/2023 Elevated WBC count documented as of this encounter (statuses as of 08/13/2023) Immunizations Name Administration Dates Next Due COVID-19 mRNA, LNP-s, No Pre serve, 2-Dose Series (Nodeable) 09/21/2020,05/22/2020 COVID-19, MRNA-LNP, 23-24, P F, 30 MCG/0.3 mL, 12 YRS AND ABOVE, IM (Kypha-Comirnaty) 01/07/2023 Covid-19, Mrna, Lnp-s, Pf, B ivalent, 30 Mcg, IM, 12 yrs and above (Nodeable) 05/09/2022 Pneumococcal Conjugate Vaccine, 20-valent (Prevn ar20) [...] Miscellaneous Notes * Telephone Encounter - Aviva Rossi DO - 08/13/2023 11:39 AM EDT Noted. Did give ok for pt to go to ED. Concern for acute cardiac event given symptoms. * Telephone Encounter - Michelle Tim LPN - 08/13/2023 10:49 AM EDT Patient returned call. States she thinks she has developed irregular heart rate. States last night she was nauseated and vomiting. Woke up with morning around 7 am and states she could hear that her heart rhythm was irregularly irregular. States she has something that feels like heartburn. Denies arm, neck, shoulder, upper back pain. States no more shortness of breath than usual. Denies fever. States her legs have gotten very swollen. Stated leg swelling started a couple of days ago - thought she ate too much salt - States she took a couple of extra doses of Lasix. States she did not exceed 80 mg lasix in a day. States she is taking all other medications as ordered. States she used albuterol inhaler a couple of days ago. States blood sugars have been "pretty much ok". Ran out of Dexcom sensors - just put a new one on today. States BSG was 119 last time she checked today. Per discussion with Dr. Rossi - advised pt go to ED. Relayed this to patient and she is in agreement. Pt requests we contact 911. Call placed to 911 - provided report. Pt aware 911 has been contacted. Call placed to [facility] ED, spoke to charge nurse Najma and provided report. * Telephone Encounter - Michelle Tim LPN - 08/13/2023 10:48 AM EDT Call placed to patient - no answer. Message left to return call to [phone]. * Telephone Encounter - Mary Ny OSA - 08/13/2023 10:38 AM EDT Called in Said she developed and irregular heartbeat this AM Wants to speak to someone Please call back documented in this encounter Plan of Treatment Upcoming Encounters Date Type Department Care Team (Latest Contact Info) Description 09/16/2023 9:40 AM EDT Office Visit [facility] [address] [place] [facility] [phone] [facility] [address] 09/16/2023 11:15 AM EDT Imaging Radiology [facility], [place] [address] [facility] [place] [address] 10/24/2023 10:55 AM EDT Hospital Encounter OR [facility], Operating Room [facility] [address] [facility] [place] [phone] Vivienne, Max Micheal, DO [address] [place] [phone] 10/24/2023 10:55 AM EDT - 10/24/2023 11:20 AM EDT Surgery OR [facility], Operating Room [facility] [address] [place] [phone] Jc Palafox, DO [address] [place] [phone] INJECTION SPINE LUMBAR OR SACRAL 11/11/2023 1:00 PM EDT Nurse Only Ancillary [address] [facility] [address] [place] [address] College, Nurse Annual Wellness Visit [address] [facility] [address] [place] [address] Scheduled Procedures Name Priority Associated Diagnoses Date/Ti me INJECTION SPINE LUMBAR OR SACRAL Lumbar radiculopathy 10/24/2023 10:55 AM EDT COLONOSCOPY FLEXIBLE PROXIMAL DIAGNOSTIC Recall History of colonic polyps Health Maintenance Due Date Last Done Comments Cologuard 1998 Fecal Occult Blood Test 1998 Sigmoidoscopy 1998 COVID-19 Vaccine ( season) 2023 01/07/2023, 05/09/2022, 09/21/2020, Additional history exists Mammogram 06/05/2023 06/04/2022, 09/17/2013 HbA1c 12/18/2023 06/17/2023, 12/22, 08/06/2022, Additional history exists Diabetic Eye Exam 01/22/2024 01/21/2023, , 11/21/2022, Additional history exists Albumin/Creatinine Ratio 06/16/20242 024, 06/04/2022, 04/27/2014, Additional history exists Diabetic [...] filedocumented as of this encounter Advance Directives * Full Code (Latest Code Status on File) Date Activated Date Inactivated Comments 02/02/2013 11:15 AM 02/04/2013 12:33 AM This ord er reflects the patients wishes and were consensually agreed upon. * Full Code Date Activated Date Inactivated Comments 02/02/2013 6:12 AM 02/02/2013 11:15 AM This orde r reflects the patients wishes and were consensually agreed upon. Care Teams Pipe Cutter Relationship Specialty Start Date End Date Aviva Rossi DO [address] [place] [address] PCP - General Family Medicine 05/09/22 documented as of this encounter
[2023-08-15] MEDS: ONDANSETRON INJ 2 MG/ML 2 ML VIAL IV PRN (00:54)
[2023-08-15 05:12] LABS: Hematocrit (blood only) 34.5 % (37.0-47.0); Mean Corpuscular Hemoglobin 28.5 pg (25.0-34.0); Mean Corpuscular Hgb Conc 31.9 g/dL (32.0-36.0); Mean Corpuscular Volume 89.4 fL (80.0-100.0); Mean Platelet Volume 10.2 fL (9.4-12.4); Platelet Count 244 K/uL (130-400); RDW Coefficient of Variation 13.3 % (11.5-14.5); Red Blood Count 3.86 M/uL (4.20-5.40); White Blood Count 8.58 K/ul (4.8-10.8)
[2023-08-15 05:15] LABS: BUN Creatinine Ratio 23.9 (10-20); Calcium 8.4 mg/dl (8.6-10.3); Creatinine Clr Calc Pharmacy 60.2 ml/min; Est GFR (Non-African American) 49.2 ml/min; Phosphorus 3.4 mg/dl (2.5-4.9); Potassium 4.4 mmol/L (3.5-5.1)
--- NOTE | 2023-08-15 08:19 | Cardiology Progress Note ---
Date of Service August 15, 2023 Assessment & Plan (1) Atrial fibrillation with rapid ventricular response: (2) Acute UTI: (3) Leg swelling: (4) Hypertension: (5) Hyperlipidemia: Plan Assessment: 68 year-old female presented to the ED with acute N/V symptoms along with palpitations. She was found to be in new onset atrial fibrillation with RVR in the setting of an acute UTI Plan: 1. Atrial fibrillation with RVR: -New onset;however, patient does endorse several months worth of intermittent palpitations. suspect this has been going on longer. Likely triggered in this case by the acute UTI -Converted to NSR last evening and remains NSR. Asymptomatic -Obtain echocardiogram to assess overall structure and function. -Continue Metoprolol tartrate 12.5mg PO BID, will likely switch to succinate prior to discharge pending echo results. -CHADS-VASC2 score 5 with recommendation for anticoagulation therapy as she is at increased risk for thrombo-embolic event. -Currently on Heparin gtt. Would recommend transition to Eliquis 5mg PO BID. Recommend that case management check into cost affordability of this medication. -Patient is very knowledgeable in regards to her disease process and is in agreement to start oral anticoagulation. 2. Acute UTI: -As per management of primary team. Continue IV rocephin 3. Leg swelling: -last known echocardiogram shows LVEF 60-65% with normal LV and RV systolic function -Patient is compliant on all medication therapies including her home dose of PO Lasix. -Demonstrates modest volume overload in the lower extremities in the setting of new onset Afib with RVR. Will give a one time dose of IV lasix 40mg now. -Strict I&O, daily weights and monitor renal function closely. -Goal serum K > 4.0 and Serum mag> 2.0 4. HTN: At Target -Continue metoprolol tartrate, Losartan, Furosemide 5. HLD: -Continue Atorvastatin as per home regimen. Case has been discussed with Dr. Hickey. Further recommendations regarding plan of care as per his assessment. I spent a total of 40 minutes on the date of service in preparation, delivery, documentation of the care provided to the patient excluding any time spent in the performance of separately billed services. 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 - Rx Noted to be in Afib with RVR + CATHERINE on CPAP Pt reverted to NSR Rx with IV Lasix - mild diastolic heart failure ECHO - LVEF 60-65%, mild LVH -no major valvular pathology Pt appears euvolemic on examination; + obesity Warm and perfusing Plans to: * Continue Beta blockade - Transition to Toprol XL 12.5 mg po BID * Patient was concerned about bradycardia and hypotension - stated that she may activity titrate her meds at home * We advised again swing between introducing and discontinuing beta blockers * Continue Apixiban - CHADS VASC >2 * TSH 2.5 * Continue Statin * Outpt evaluation - consideration for Afib ablation * K+ goal 4.5-5 * Mag goal >2 * Weight loss * Please secure clinic visit with [facility] * 50 min spent addressing challenges, educating and advancing daily plan of care. Tay Mathur 08/15/2023: Patient seen and examined in follow up today. Feeling Labs, vitals, diagnostics, telemetry and documentation reviewed. Telemetry reviewed showing -500 fluid balance Physical Exam Constitutional: + overweight; no acute distress and not ill appearing Neck: normal visual inspection and trachea midline Respiratory: normal respiratory effort, lungs clear to auscultation Cardiovascular: Rate/Rhythm: regular rate and regular rhythm Heart Sounds: normal S1 and normal S2; no murmur Vessels: dorsalis pedis pulses present; no JVD Extremities: + edema (+2 BLE) Skin: no rashes, warm and dry Psychiatric: A+Ox3, euthymic affect Results & Data Vital Signs (Past 12 Hours) Vital Signs Temp Pulse Pulse Resp BP Pulse Ox O2 Del Method 08/15/23 07:52 36.6 C 59 L 19 126/57 L 96 Room Air 08/15/23 04:09 36.7 C 60 15 111/67 96 Room Air 08/14/23 23:51 65 08/14/23 23:33 36.6 C 64 20 133/61 96 Room Air Laboratory Results CBC 08/15/23 Range/Units 04:40 WBC 8.58 (4.8-10.8) K/ul RBC 3.86 L (4.20-5.40) M/uL Hgb 11.0 L (12.0-16.0) g/dl Hct 34.5 L (37.0-47.0) % Plt Count 244 (130-400) K/uL Comprehensive Metabolic Panel 08/15/23 Range/Units 04:40 Sodium 135 L (136-145) mmol/L Potassium 4.4 (3.5-5.1) mmol/L Chloride 102 (98-107) mmol/L Carbon Dioxide 27 (21-32) mmol/L BUN 27 H (6-23) mg/dl Creatinine 1.13 (0.6-1.2) mg/dl Glucose 144 H (70-99(Fasting)) mg/dl Calcium 8.4 L (8.6-10.3) mg/dl Intake and Output 08/14/23 08/15/23 08/15/23 22:59 06:59 14:59 Intake Total 332 / 915.5 Output Total 475 / 1375 800 / 800 Balance 332 / -459.5 -475 / -459.5 -800 / -800 Intake: IV 332 / 465.5 Heparin Sodium/Dextrose 25,000 282 / 415.5 units In 500 ml @ 1,500 UNITS/ HR 30 mls/hr IV .[id number] [facility] Rx #:[id number] cefTRIAXone SODIUM 2,000 mg In 50 / 50 50 ml @ 100 mls/hr IV Q24H [facility] Rx#:[id number] Output: Urine 475 / 1375 800 / 800 Other: # Unmeasured Voids 0 Weight 130.5 kg Weight Measurement Method Standing Scale Medications Administered Current Inpatient Medications Acetaminophen (Acetaminophen 325 Mg Tab) 650 mg PO Q4H PRN PRN Reason: Pain or Fever Stop: 09/12/23 18:56 Last Admin: 08/15/23 09:41 Dose: 650 mg Albuterol (Albuterol Hfa 8 Gm Inhaler) 2 puffs INH Q4H PRN PRN Reason: Shortness Of Breath Or Wheezing Stop: 09/12/23 18:56 Apixaban (Apixaban 5 Mg Tablet) 5 mg PO BID [facility] Stop: 09/13/23 20:59 Last Admin: 08/15/23 08:05 Dose: 5 mg Atorvastatin Calcium (Atorvastatin 20 Mg Tab) 20 mg PO QAM [facility] Stop: 09/13/23 08:59 Last Admin: 08/15/23 08:06 Dose: 20 mg Bupropion HCl (Bupropion Sr 100 Mg Tabcr) 100 mg PO QAM [facility] Stop: 09/13/23 08:59 Last Admin: 08/15/23 08:06 Dose: 100 mg Bupropion HCl (Bupropion Sr 150 Mg Tabcr) 150 mg PO QAM [facility] Stop: 09/13/23 08:59 Last Admin: 08/15/23 08:06 Dose: 150 mg Cyanocobalamin (Cyanocobalamin (B-12) 500 Mcg Tablet) 1,000 mcg PO QAM [facility] Stop: 09/13/23 08:59 Last Admin: 08/15/23 08:06 Dose: 1,000 mcg Dextrose (Dextrose 50% 50 Ml Syringe) 25 - 50 ml IV UD PRN; Protocol PRN Reason: Hypoglycemia Protocol Stop: 09/12/23 18:56 Famotidine (Famotidine 20 Mg Tab) 20 mg PO DAILY [facility] Stop: 09/13/23 08:59 Last Admin: 08/15/23 08:06 Dose: 20 mg Fluoxetine HCl (Fluoxetine Hcl 20 Mg Cap) [facility] Stop: 09/13/23 08:59 Last Admin: 08/15/23 08:05 Dose: 60 mg Furosemide (Furosemide 40 Mg Tab) 40 mg PO DAILY [facility] Stop: 09/13/23 08:59 Last Admin: 08/15/23 08:06 Dose: 40 mg Glucagon (Glucagon For Inj 1 Mg Vial) 1 mg SQ UD PRN; Protocol PRN Reason: Hypoglycemia Protocol Stop: 09/12/23 18:56 Glucose (Glucose 40% Gel 15 Gm Tube) 15 - 30 gm PO UD PRN; Protocol PRN Reason: Hypoglycemia Protocol Stop: 09/12/23 18:56 Glucose (Glucose 10 Tab/Tube) 4 - 8 tab PO UD PRN; Protocol PRN Reason: Hypoglycemia Treatment Stop: 09/12/23 18:56 Ceftriaxone Sodium (Rocephin) 2,000 mg in 50 mls @ 100 mls/hr IV NOW STA Stop: 08/15/23 14:03 Insulin Aspart (Insulin Aspart Per Unit Charge) 0 units SC ACHS AMI Stop: 09/12/23 18:56 Last Admin: 08/15/23 12:31 Dose: 7 units Insulin Glargine (Lantus Per Unit Charge) 20 units SC QAM [facility] Stop: 09/13/23 08:59 Last Admin: 08/15/23 08:04 Dose: 20 units Levothyroxine Sodium (Levothyroxine Sodium 50 Mcg Tablet) 50 mcg PO DAILYBB [facility] Stop: 09/13/23 06:29 Last Admin: 08/15/23 05:23 Dose: 50 mcg Losartan Potassium (Losartan Potassium 50 Mg Tab) 100 mg PO QAM [facility] Stop: 09/13/23 08:59 Last Admin: 08/15/23 08:06 Dose: 100 mg Metoprolol Succinate (Metoprolol Succ 25mg Ext Rel Tab) 12.5 mg PO BID [facility] Stop: 09/14/23 20:59 Metoprolol Tartrate (Metoprolol Tartrate 1 Mg/Ml Vial) 2.5 mg IV Q6 PRN PRN Reason: Tachycardia HR>110 Stop: 09/12/23 18:56 Miscellaneous (Carbohydrates For Hypoglycemia ) 15 - 30 gm PO UD PRN PRN Reason: Hypoglycemia Protocol Stop: 09/12/23 18:56 Miscellaneous Information (Pharmacy Glycemic Mgmt Consult) 1 each N/A UD PRN; Protocol PRN Reason: Consult Stop: 09/12/23 18:56 Ondansetron HCl (Ondansetron Inj 2 Mg/Ml 2 Ml Vial) 4 mg IV Q6H PRN PRN Reason: Nausea Stop: 09/12/23 18:56 Last Admin: 08/15/23 00:54 Dose: 4 mg Polyethylene Glycol (Polyethylene (Miralax) 17 Gm Pack) 17 gm PO DAILY PRN PRN Reason: Constipation Stop: 09/12/23 18:56 Vibegron (Vibegron 75 Mg Tab) 75 mg PO DAILY [facility] Stop: 09/13/23 08:59 Last Admin: 08/15/23 08:06 Dose: 75 mg
--- NOTE | 2023-08-15 11:48 | Pharmacy Report ---
Pharmacy Glycemic Short Note 2 - Date of Service August 15, 2023 - Glycemic Short BSG Results (Last 24 hours): 08/14/23 08/14/23 08/15/23 16:31 19:53 04:40 Glucose 144 H POC Glucose 97 87 08/15/23 08/15/23 07:06 11:18 Glucose POC Glucose 130 H 154 H OUTPATIENT ANTIDIABETIC REGIMEN: * Xultophy 26 units daily * Lantus 6 units daily * Novolog scale, CF 20, CR 7 * A1c: 6.3% ASSESSMENT: 08/13 * Patient admitted with new onset A. fib currently on a heparin infusion. * BSG this morning was 113 mg/dL. Of note patient's own glucometer was reading in the 60s. While this will not be utilized for treatment per policy given discrepancy in values, patient refused NovoLog this morning and required a reduced dose of Lantus based on the low glucometer reading. This was discussed with Dr. Jean Baptiste. Will proceed with a lower dose of 20 units of lantus this morning and continue with home NovoLog scale. * Patient is ordered a diet. 08/14: * Patient received a total of 43 units of insulin yesterday, 25 of which was basal. BSGs were 529-008-20-86 mg/dL yesterday and fasting this morning was 130 mg/dL. * Given the down trend in dinner and HS BSGs, will loosen CR and total insulin dose for the day. * Patient remains on a diet and heparin infusion was d/c'd last evening. PLAN FOR INPATIENT GLYCEMIC CONTROL: * Hold outpatient oral diabetes medications * Basal insulin * Lantus 20 units SQ qam * Bolus insulin * NovoLog per scale ACHS or Q6hrs while NPO * Goal Range: Low 110 mg/dL - High 140 mg/dL * Correction Factor: 20 mg/dL/unit * Nutritional / Prandial insulin per carb ratio of 1 unit per 9 grams CHO consumed
--- NOTE | 2023-08-15 13:08 | Electrocardiogram Report ---
Test Reason : Blood Pressure : / mmHG Vent. Rate : 063 BPM Atrial Rate : 063 BPM P-R Int : 156 ms QRS Dur : 084 ms QT Int : 410 ms P-R-T Axes : 046 023 043 degrees QTc Int : 419 ms Normal sinus rhythm Low voltage QRS Borderline ECG When compared with ECG of 14-AUG-2023 04:29, No significant change was found Confirmed by Antonino Kelly ([id number]) on 08/15/2023 1:08:43 PM Referred By: Aviva Rossi Confirmed By:Antonino Kelly
--- NOTE | 2023-08-15 13:40 | Discharge Summary ---
Date of Service August 15, 2023 Admission HPI Per Admitting Provider Patient is a 68-year-old female with history of diabetes mellitus type 2, hypertension, hyperlipidemia, depression, CATHERINE, hypothyroidism, B12 deficiency and other medical problems presents with history of intermittent palpitations associated with nausea, vomiting and dizziness. Patient admits to have palpitations in the past as above about 6 months ago which resolved without any intervention. She also reports having heartburn like sensation associated with palpitations this morning. Reports chronic dyspnea on exertion which is unchanged. Also states having dysuria but no hematuria or increased urinary frequency. No known history of arrhythmias in the past. Denies any history of chest pain, cough, fever, chills, syncope, headache, change in vision, abdominal pain, diarrhea, change in appetite, recent change in medications. Admission Exam Per Admitting Provider General Appearance:Obese, no apparent distress Head: normocephalic, Atraumatic Eyes: normal inspection, EOMI Neck: supple, Trachea midline Respiratory/Chest: Normal breath sounds, CTA, No accessory muscle use Cardiovascular: Irregularly irregular, No murmur Abdomen/GI:Soft, Non tender, Bowel sounds present Extremities/Musculoskeletal:normal inspection, 1+ B/L LE edema Neurologic/Psych:AAOX3, grossly no focal neurological deficits Skin: normal color, warm Principal Diagnosis Afib W/ RVR (new onset) UTI Discharge Exam General Appearance: Obese F in NAD Head: normocephalic, Atraumatic Eyes: normal inspection, EOMI Neck: supple Respiratory/Chest: Normal breath sounds, CTA, No accessory muscle use Cardiovascular: regular, No murmur Abdomen/GI: Soft, obese, Non tender, Bowel sounds present Extremities/Musculoskeletal:normal inspection, trace B/L LE edema Neurologic/Psych:AAOX3, speech fluent, answers appropriately, moves extremities Skin: warm, dry Discharge Data Allergies Allergy/AdvReac Type Severity Reaction Status Date / Time penicillin G Allergy Intermediate HIVES Verified 02/05/23 08:12 codeine AdvReac Intermediate VOMITING Verified 02/05/23 08:12 hydrocodone AdvReac Intermediate Vomiting Verified 02/05/23 08:12 Consultations 08/13/23 14:31 ED Decision to Admit Stat 08/13/23 18:57 Consult Cardiology Routine Hospital Course (1) Atrial fibrillation with rapid ventricular response: Atrial Fibrillation RVR: Newly diagnosed Troponin elevation likely demand ischemia secondary to tachycardia --CXR:No acute chest disease. --TSH: 2.5 Resting echo obtained - LV systolic function is normal. LVEF 60 to 65%. Mild concentric LVH. Grade 1 diastolic dysfunction. LA is mildly dilated. Mild mitral annular calcification. Trace tricuspid regurg. Aortic valve sclerosis mild, without significant aortic valvular stenosis. Monitor electrolytes and replace Started on metoprolol and IV heparin Converted to sinus rhythm Cardiology consulted - started Eliquis , metoprolol succinate 12.5 mg bid (pt provided with coupon for Eliquis by CM) Follow up with cardiology as outpt Urinary tract infection Urine culture positive for Klebsiella Empirically started on Rocephin, cont. while inpt, discharge on po abx Possible acute CHF--likely diastolic Reports increased leg edema, dyspnea on exertion BNP 164 Received IV Lasix in ED and again next day - now euvolemic echo as above Continue home diuretics Monitor I's and O's, daily weight cardiology following DM Type II: Last A1c: 6.7 Update A1C Continue ISS, basal Insulin, Accu checks, Diabetic diet Pharmacy Glycemic control consult CATHERINE continue CPAP HS Morbid obesity BMI 54, needs counseling and further pcp follow up Other chronic conditions Hypertension Hyperlipidemia Depression Hypothyroidism B12 deficiency Continue home medications Total Time Total Time Spent Total Time Spent (In Minutes): 40 Discharge Plan Discharge Items Patient Disposition: Home - Self-Care Reason For Visit: AFIB Discharge Diagnosis: Afib W/ RVR (new onset) UTI Activity: Per Instructions section Non-emergency contact: 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 The appointment with your primary care doctor was scheduled for you for 08/25/2023. You will be contacted about your appointment with cardiology. Take metoprolol succinate 12.5 mg twice a day and Eliquis 5 mg twice a day as prescribed. Coupon for Eliquis was provided for you. Finish antibiotic treatment for your UTI as prescribed. Pending Studies at Discharge: No Stand-Alone Forms: My [facility], Smoking Cessation Medications and DC Order Prescriptions: New Eliquis 5 mg tablet 5 mg PO BID Qty: 60 0RF cefuroxime axetil 250 mg tablet 250 mg PO BID 3 Days Qty: 6 0RF metoprolol succinate 25 mg Tablet Extended Release 24 Hr 12.5 mg PO BID Qty: 30 0RF Continued levothyroxine 50 mcg tablet 50 mcg PO QAM potassium chloride 10 mEq tablet extended release 10 meq PO UD PRN (Reason: takes when taking lasix) Rx Instructions: hasn't been filled with her current pharmacy 08/13/23 famotidine [Pepcid] 20 mg Tablet 20 mg PO DAILY bupropion HCl 150 mg Tablet Sustained-Release 12 Hr 150 mg PO QAM Rx Instructions: TOTAL DOSE 250 MG--TAKES WITH 100 MG TAB. atorvastatin 20 mg Tablet 20 mg PO QAM cyanocobalamin (vitamin B-12) 1,000 mcg Tablet 1,000 mcg PO QAM Rx Instructions: otc unable to verify 08/13/23 bupropion HCl 100 mg Tablet Sustained-Release 12 Hr 100 mg PO QAM Rx Instructions: TOTAL DOSE 250 MG--TAKES WITH 150 MG TAB. losartan 100 mg Tablet 100 mg PO QAM fluoxetine 60 mg Tablet 60 mg PO QAM insulin aspart U-100 [Novolog U-100 Insulin aspart] 100 unit/mL Solution 1 sliding scale dose SUBCUT TIDM Patient Comments: sliding scale Rx Instructions: DOSE TAKE BSG MINUS 120--1 UNIT FOR EVERY 20 LEFT OVER. CARB RATIO 7 CARBS=1 UNIT. Max dose 35 units mirabegron [Myrbetriq] 50 mg Tablet Extended Release 24 Hr 50 mg PO QAM Xultophy 100/3.6 100 unit-3.6 mg /mL (3 mL) Insulin Pen 26 unit SUBCUT DAILY Rx Instructions: per pharmacy -up to 50 units daily per titration. 08/13/23 albuterol sulfate 90 mcg/actuation HFA aerosol inhaler 2 puff INHALATION Q4H PRN (Reason: Shortness Of Breath Or Wheezing) insulin glargine [Lantus Solostar U-100 Insulin] 100 unit/mL (3 mL) insulin pen 6 unit SUBCUT DAILY furosemide 40 mg tablet 40 mg PO DAILY Discharge Orders: Discharge Order (Routine); Ordered 08/15/23 Ordered By: Woo Franco/Other Patient Handouts: Managing Type 2 Diabetes, Special Foot Care for Diabetes Admission Data Admit Date/Time: 08/13/23 14:51 Attending Provider: Woo Jean Baptiste Admit Provider: Gabe Mcneill Primary Care Provider: Aviva Rossi Other Providers: Gabe Mcneill; Shaw Hickey
[2023-08-15] MEDS: cefTRIAXone SODIUM 2,000 MG/50 ML BAG IV STA (14:02)
[2023-08-15] MEDS ORDERED: METOPROLOL SUCC 25MG EXT REL TAB PO SCH (21:00)
== END 2023-08-15 19:27 | disposition home or self-care (01) | DRG 308 ==
LOC: ED 12:04 → 1E 14:51 → SUATTDRO 14:51 → 1E 18:20

== ENCOUNTER 2023-09-04 13:24 | Inpatient (IN) ==
--- NOTE | 2023-09-04 14:13 | Emergency Department Note ---
Impression & Plan Generalized weakness, Elevated brain natriuretic peptide (BNP) level, Shortness of breath, Nausea & vomiting ED Provider Note HISTORY OF PRESENT ILLNESS: Patient is a 68-year-old female presenting with generalized weakness. Patient reports for the last week she has been having significant nausea and vomiting and having difficulties getting around at home. Reports that a week ago she was diagnosed with a urinary tract infection and had a change in her antibiotic from a cephalosporin to Bactrim. Reports she still on the Bactrim, but has been feeling significantly worse over the last 6 to 7 days. States that she is unable to take more than a few steps at home before becoming significantly fatigued and short of breath. Denies any chest pain. Denies any measurable fevers at home, but reports having the sweats and chills intermittently in the last week. Denies any diarrhea or abdominal pain. Denies any recent sick contact exposures. Reports that she is been very nauseous over the last few days and has had a few episodes of vomiting. She denies any focal numbness, tingling or weakness. Reports she just feels generally weak. ROS: as above PHYSICAL EXAM: Constitutional: Patient appears in no acute distress. HENT: Head: Normocephalic and atraumatic. Eyes: EOMI, PERRL Mouth/Throat: Mucous membranes moist. Neck: Trachea midline. Neck supple. Cardiovascular: RRR, No murmurs, rubs or gallops. Intact distal pulses. Pulmonary/Chest: No respiratory distress. Breath sounds clear and equal bilaterally. No wheezes or rales. Abdominal: Abdomen soft, no tenderness, rebound or guarding. Musculoskeletal: No edema, tenderness or deformity noted. Skin: Warm and dry. No rash, erythema, pallor or cyanosis Psychiatric: Appropriate mood and affect for situation. Neurological: Alert and keenly responsive. CN II-XII grossly intact, moving all extremities equally and fully. MDM: - Vitals signs showed hypertension - History obtained via patient. History as above. - Chronic conditions affecting care: Afib; HTN; HLD; DM-2 - Differential diagnoses include, but are not limited to: dehydration; electrolyte abnormality; ACS; CHF exacerbation; UTI; pneumonia - Order placed for continuous cardiac monitoring. At this time, monitor showed rate of 70 bpm with normal sinus rhythm, per my interpretation. - External medical records reviewed. Discharge summary dated 08/15/2023 was reviewed. Patient was admitted at that time for similar symptoms. She is found to be in A-fib with RVR. - EKG interpreted by myself showed normal sinus rhythm. Rate 70 bpm. QT 398. No acute ischemic changes. - Laboratory workup interpreted by myself showed normal WBC; stable electrolytes; slightly elevated creatinine (cr 1.29); normal troponin; normal procalcitonin; negative lactate; normal TSH; elevated BNP (311) - CXR negative for pneumonia, per my interpretation - Viral respiratory panel negative - UA negative for infection - Discussed results with patient. She has no reproducible abdominal pain on examination, so though CT abdomen/pelvis was considered was not obtained. - Discussed discharge with the patient, but she does not feel comfortable with the plan for discharge. She reports that walking from the bedside commode caused her to "almost lose consciousness." She states that she does not feel safe going home, she lives alone. - 1L NS ordered. - Discussion was had with manager case management about patient's case and need for admission - Hospitalist consulted for admission - [facility] ASSESSMENT AND PLAN: Diagnosis: generalized weakness; elevated BNP; shortness of breath; nausea and vomiting Plan: admit Past Med/Surg History Problem List (Updated 09/04/23 @ 18:54 by Crys Bland MD) Nausea & vomiting (Acute) Shortness of breath (Acute) Elevated brain natriuretic peptide (BNP) level (Acute) Generalized weakness (Acute) Atrial fibrillation with rapid ventricular response Acute UTI (Acute) Heart palpitations (Acute) Leg swelling (Acute) Colon polyp Colon cancer screening Encounter for pre-operative examination (Acute) Hyperlipidemia Hypertension Diabetes mellitus, type 2 dexcom intact Medical History Chronic cough 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, 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 Hypothyroidism Myasthenia gravis "EFFECTS ONLY MY VOCAL CORDS" Arthritis Stress incontinence in female GERD (gastroesophageal reflux disease) Hx of cancer of endometrium Idiopathic hypersomnia ADHD Depression Peripheral neuropathy Hx of migraines Irregular heart beats NO CARDS Hx of sleep apnea NO DEVICE Chronic obstructive pulmonary disease H/O Surgical History History of surgery lymph node removed from forehead (benign) Hx of cataract extraction right/left History of esophagogastroduodenoscopy (EGD) H/O colonoscopy with polypectomy H/O total hysterectomy History of tooth extraction Nausea and vomiting after administration of anesthetic agent Family History Other No family history of adverse response to anesthesia Social History Smoking Status: Former smoker Tobacco Type: Cigarettes Second Hand Exposure: Yes (as a small child); Do You Dip or Chew Tobacco: No; Hx Alcohol Use: Yes Alcohol type: wine Hx Substance Use: No Preferred Language: Japanese Communication Ability: Effective Historic Sites Supervisor Required: No Beliefs That Will Affect Care: None Current Living Situation: Alone Feels Safe at Home: Yes Assistive Devices: Cane and Walker Allergies Allergies Allergy/AdvReac Type Severity Reaction Status Date / Time penicillin G Allergy Intermediate HIVES Verified 09/04/23 19:15 codeine AdvReac Intermediate VOMITING Verified 09/04/23 19:15 hydrocodone AdvReac Intermediate Vomiting Verified 09/04/23 19:15 Home Meds Home Medications Medication Instructions Recorded Confirmed atorvastatin 20 mg tablet 20 mg PO QAM 03/27/21 09/04/23 bupropion HCl 100 mg tablet,12 hr 100 mg PO QAM 03/27/21 09/04/23 sustained-release bupropion HCl 150 mg tablet,12 hr 150 mg PO QAM 03/27/21 09/04/23 sustained-release cyanocobalamin (vitamin B-12) 1,000 mcg PO QAM 03/27/21 09/04/23 1,000 mcg tablet fluoxetine 60 mg tablet 60 mg PO QAM 03/27/21 09/04/23 losartan 100 mg tablet 25 mg PO QAM 03/27/21 09/04/23 levothyroxine 50 mcg tablet 50 mcg PO QAM 08/13/22 09/04/23 insulin aspart U-100 100 unit/mL 1 sliding scale dose subcut TIDM 08/27/22 09/04/23 subcutaneous solution (Novolog U-100 Insulin aspart) potassium chloride 10 mEq 10 meq PO UD PRN takes when taking 09/09/22 09/04/23 tablet,extended release lasix famotidine 20 mg tablet (Pepcid) 20 mg PO DAILY 09/18/22 09/04/23 insulin degludec 100 25 unit subcut DAILY 01/30/23 09/04/23 unit-liraglutide 3.6 mg/mL(3 mL) subcutaneous pen (Xultophy 100/3.6) mirabegron 50 mg tablet,extended 50 mg PO QAM 01/30/23 09/04/23 release 24 hr (Myrbetriq) albuterol sulfate 90 mcg/actuation 2 puff inhalation Q4H PRN 08/13/23 09/04/23 aerosol inhaler Shortness Of Breath Or Wheezing furosemide 40 mg tablet 40 mg PO DAILY 08/13/23 09/04/23 insulin glargine 100 unit/mL (3 4 unit subcut DAILY 08/13/23 09/04/23 mL) subcutaneous pen (Lantus Solostar U-100 Insulin) cholecalciferol (vitamin D3) 50 50 mcg PO DAILY 09/04/23 09/04/23 mcg (2,000 unit) tablet (Vitamin D3) Previous Rx's Medication Instructions Recorded apixaban 5 mg tablet (Eliquis) 5 mg PO BID #60 tabs 08/14/23 metoprolol succinate 25 mg 12.5 mg (1/2 x 25 mg) PO BID #30 08/15/23 tablet,extended release 24 hr tabs Results & Data (ED) Vital Signs Vital Signs - 24 hr 09/04/23 13:25 09/04/23 13:45 09/04/23 13:48 Temperature 36.4 C L Temperature Source Oral Pulse Rate 72 71 70 Pulse Rate [Apical] Pulse Rate from SpO2 Sensor 71 Respiratory Rate 12 19 Respiratory Effort / Characteristics Non-Labored Spontaneous Respiratory Depth Normal Respiratory Pattern Regular Blood Pressure 159/84 H Blood Pressure Mean 109 Pulse Oximetry 97 96 Oxygen Delivery Method Room Air Sepsis Recent Fever Within 48 Hours No Sepsis New/Unexplained Change in Mental Status N/A Sepsis Action Taken by Nursing No Action Required 09/04/23 13:58 09/04/23 13:59 09/04/23 14:00 Temperature Temperature Source Pulse Rate 70 Pulse Rate [Apical] Pulse Rate from SpO2 Sensor 71 Respiratory Rate 15 Respiratory Effort / Characteristics Respiratory Depth Respiratory Pattern Blood Pressure Blood Pressure Mean Pulse Oximetry 97 97 94 Oxygen Delivery Method Room Air Room Air Sepsis Recent Fever Within 48 Hours Sepsis New/Unexplained Change in Mental Status Sepsis Action Taken by Nursing 09/04/23 15:00 09/04/23 15:01 09/04/23 15:02 Temperature Temperature Source Pulse Rate 72 Pulse Rate [Apical] 70 Pulse Rate from SpO2 Sensor 72 Respiratory Rate 19 16 Respiratory Effort / Characteristics Non-Labored Spontaneous Respiratory Depth Normal Respiratory Pattern Blood Pressure 197/131 H Blood Pressure Mean 169 Pulse Oximetry 94 94 Oxygen Delivery Method Room Air Sepsis Recent Fever Within 48 Hours Sepsis New/Unexplained Change in Mental Status Sepsis Action Taken by Nursing 09/04/23 16:18 09/04/23 17:00 09/04/23 17:09 Temperature Temperature Source Pulse Rate Pulse Rate [Apical] Pulse Rate from SpO2 Sensor 72 76 72 Respiratory Rate Respiratory Effort / Characteristics Respiratory Depth Respiratory Pattern Blood Pressure Blood Pressure Mean Pulse Oximetry 94 97 95 Oxygen Delivery Method Sepsis Recent Fever Within 48 Hours Sepsis New/Unexplained Change in Mental Status Sepsis Action Taken by Nursing 09/04/23 17:27 09/04/23 18:03 09/04/23 19:00 Temperature Temperature Source Pulse Rate 72 72 Pulse Rate [Apical] Pulse Rate from SpO2 Sensor 72 73 Respiratory Rate Respiratory Effort / Characteristics Respiratory Depth Respiratory Pattern Blood Pressure 137/64 Blood Pressure Mean 87 Pulse Oximetry 95 95 Oxygen Delivery Method Sepsis Recent Fever Within 48 Hours Sepsis New/Unexplained Change in Mental Status Sepsis Action Taken by Nursing Laboratory Data 09/04/23 13:55 09/04/23 13:55 Lab Results 09/04/23 09/04/23 09/04/23 Range/Units 13:55 14:26 14:38 WBC 9.05 (4.8-10.8) K/ul RBC 4.20 (4.20-5.40) M/uL Hgb 12.0 (12.0-16.0) g/dl Hct 37.5 (37.0-47.0) % MCV 89.3 (80.0-100.0) fL MCH 28.6 (25.0-34.0) pg MCHC 32.0 (32.0-36.0) g/dL RDW Std Deviation 42.2 (36.4-46.3) fL RDW Coeff of Buck 13.0 (11.5-14.5) % Plt Count 268 (130-400) K/uL MPV 10.3 (9.4-12.4) fL Immature Gran % (Auto) 0.2 % Neut % (Auto) 77.6 % Lymph % (Auto) 13.4 % [place] % (Auto) 7.8 % Eos % (Auto) 0.8 % Baso % (Auto) 0.2 % Neut # (Auto) 7.02 H (1.40-6.50) K/uL Lymph # (Auto) 1.21 (1.20-3.40) K/uL [place] # (Auto) 0.71 H (0.11-0.59) K/uL Eos # (Auto) 0.07 (0.00-0.50) K/uL Baso # (Auto) 0.02 (0.00-0.20) K/uL Immature Gran # (Auto) 0.02 (0.01-0.20) K/uL Sodium 136 (136-145) mmol/L Potassium 4.5 (3.5-5.1) mmol/L Chloride 103 (98-107) mmol/L Carbon Dioxide 28 (21-32) mmol/L Anion Gap 5 (3-11) BUN 35 H (6-23) mg/dl Creatinine 1.29 H (0.6-1.2) mg/dl Est Cr Clr Drug Dosing 51.9 ml/min Est GFR ( Amer) 48.6 ml/min Est GFR (Non-Af Amer) 41.9 ml/min BUN/Creatinine Ratio 27.1 H (10-20) Glucose 109 H (70-99(Fasting)) mg/dl Lactate (0.4-2.0) mmol/L Calcium 9.7 (8.6-10.3) mg/dl Magnesium 2.3 (1.7-2.4) mg/dl Total Bilirubin 0.8 (0.2-1.0) mg/dl AST 13 (13-39) U/L ALT 11 (7-52) U/L Alkaline Phosphatase 45 (34-104) U/L Troponin I High Sens 5.4 (0-14) pg/ml B-Natriuretic Peptide 311 H (0-100) pg/ml Total Protein 7.1 (6.0-8.3) gm/dl Albumin 3.9 (3.4-5.0) gm/dl Globulin 3.2 (2.5-4.0) gm/dl Albumin/Globulin Ratio 1.2 (0.9-2) Procalcitonin < 0.02 (0-0.5) ng/ml TSH 1.241 (0.300-4.500) uIu/ml Urine Color Urine Appearance (Clear) Urine pH (4.5-7.5) Ur Specific [place] (1.000-1.030) Urine Protein (Negative) Urine Glucose (UA) (Negative) Urine Ketones (Negative) Urine Blood (Negative) Urine Nitrite (Negative) Urine Bilirubin (Negative) Urine Urobilinogen (Negative) Ur Leukocyte Esterase (Negative) Urine WBC (Auto) (0-5) /hpf Urine RBC (Auto) (0-2) /hpf U Hyaline Cast (Auto) (0-2) /lpf U Epithel Cells (Auto) (0-2) /hpf Urine Bacteria (Auto) (None Seen) Uric Acid Crystals (None Prsent) Adenovirus (PCR) Not Detected (NotDetected) B. pertussis DNA (PCR) Not Detected (NotDetected) B.parapertussis DNA PCR Not Detected (NotDetected) C. pneumoniae DNA (PCR) Not Detected (NotDetected) Coronavirus OC43 (PCR) Not Detected (NotDetected) Coronavirus HKU1 (PCR) Not Detected (NotDetected) Coronavirus 229E (PCR) Not Detected (NotDetected) SARS-CoV-2 (PCR) Not Detected (NotDetected) Coronavirus NL63 (PCR) Not Detected (NotDetected) Human Metapneumovir PCR Not Detected (NotDetected) Influenza Type A (PCR) Not Detected (NotDetected) Influenza Type B (PCR) Not Detected (NotDetected) M. pneumoniae (PCR) Not Detected (NotDetected) Parainfluenza 1 (PCR) Not Detected (NotDetected) Parainfluenza 2 (PCR) Not Detected (NotDetected) Parainfluenza 3 (PCR) Not Detected (NotDetected) Parainfluenza 4 (PCR) Not Detected (NotDetected) RSV (PCR) Not Detected (NotDetected) Entero/Rhino (PCR) Not Detected (NotDetected) 09/04/23 09/04/23 Range/Units 14:56 Unknown WBC (4.8-10.8) K/ul RBC (4.20-5.40) M/uL Hgb (12.0-16.0) g/dl Hct (37.0-47.0) % MCV (80.0-100.0) fL MCH (25.0-34.0) pg MCHC (32.0-36.0) g/dL RDW Std Deviation (36.4-46.3) fL RDW Coeff of Buck (11.5-14.5) % Plt Count (130-400) K/uL MPV (9.4-12.4) fL Immature Gran % (Auto) % Neut % (Auto) % Lymph % (Auto) % [place] % (Auto) % Eos % (Auto) % Baso % (Auto) % Neut # (Auto) (1.40-6.50) K/uL Lymph # (Auto) (1.20-3.40) K/uL [place] # (Auto) (0.11-0.59) K/uL Eos # (Auto) (0.00-0.50) K/uL Baso # (Auto) (0.00-0.20) K/uL Immature Gran # (Auto) (0.01-0.20) K/uL Sodium (136-145) mmol/L Potassium (3.5-5.1) mmol/L Chloride (98-107) mmol/L Carbon Dioxide (21-32) mmol/L Anion Gap (3-11) BUN (6-23) mg/dl Creatinine (0.6-1.2) mg/dl Est Cr Clr Drug Dosing ml/min Est GFR ( Amer) ml/min Est GFR (Non-Af Amer) ml/min BUN/Creatinine Ratio (10-20) Glucose (70-99(Fasting)) mg/dl Lactate 0.8 (0.4-2.0) mmol/L Calcium (8.6-10.3) mg/dl Magnesium (1.7-2.4) mg/dl Total Bilirubin (0.2-1.0) mg/dl AST (13-39) U/L ALT (7-52) U/L Alkaline Phosphatase (34-104) U/L Troponin I High Sens (0-14) pg/ml B-Natriuretic Peptide (0-100) pg/ml Total Protein (6.0-8.3) gm/dl Albumin (3.4-5.0) gm/dl Globulin (2.5-4.0) gm/dl Albumin/Globulin Ratio (0.9-2) Procalcitonin (0-0.5) ng/ml TSH (0.300-4.500) uIu/ml Urine Color Yellow Urine Appearance Cloudy A (Clear) Urine pH 5.5 (4.5-7.5) Ur Specific [place] 1.018 (1.000-1.030) Urine Protein 1+ H (Negative) Urine Glucose (UA) Negative (Negative) Urine Ketones Trace H (Negative) Urine Blood Negative (Negative) Urine Nitrite Negative (Negative) Urine Bilirubin Negative (Negative) Urine Urobilinogen Negative (Negative) Ur Leukocyte Esterase Negative (Negative) Urine WBC (Auto) 0-5 (0-5) /hpf Urine RBC (Auto) 0-2 (0-2) /hpf U Hyaline Cast (Auto) 3-5 H (0-2) /lpf U Epithel Cells (Auto) 3-5 H (0-2) /hpf Urine Bacteria (Auto) None Seen (None Seen) Uric Acid Crystals Present A (None Prsent) Adenovirus (PCR) (NotDetected) B. pertussis DNA (PCR) (NotDetected) B.parapertussis DNA PCR (NotDetected) C. pneumoniae DNA (PCR) (NotDetected) Coronavirus OC43 (PCR) (NotDetected) Coronavirus HKU1 (PCR) (NotDetected) Coronavirus 229E (PCR) (NotDetected) SARS-CoV-2 (PCR) (NotDetected) Coronavirus NL63 (PCR) (NotDetected) Human Metapneumovir PCR (NotDetected) Influenza Type A (PCR) (NotDetected) Influenza Type B (PCR) (NotDetected) M. pneumoniae (PCR) (NotDetected) Parainfluenza 1 (PCR) (NotDetected) Parainfluenza 2 (PCR) (NotDetected) Parainfluenza 3 (PCR) (NotDetected) Parainfluenza 4 (PCR) (NotDetected) RSV (PCR) (NotDetected) Entero/Rhino (PCR) (NotDetected) Imaging Data Radiologist's Impression: Chest X-Ray 09/04/23 13:59 XR chest 1V portable CLINICAL HISTORY: weakness COMPARISON STUDY: Chest radiograph August 13, 2023. FINDINGS: Lung volumes are normal. Lungs are clear. There is no pneumothorax or pleural effusion. Cardiac size is stable. Mediastinal contours are normal. There is no evidence for pulmonary edema. IMPRESSION: No acute cardiopulmonary findings. . No significant change in appearance of the chest. ACT 112: Negative or not required by law. Electronically signed by: Ronald Jeff M.D. 09/04/2023 3:02 PM Discharge Plan Visit Data Chief Complaint: Illness Stated Complaint: ILLNESS ED Provider: Crys Bland Discharge Problem: Generalized weakness, Elevated brain natriuretic peptide (BNP) level, Shortness of breath, Nausea & vomiting Forms Stand Alone Forms: [facility] Prescriptions Prescriptions: No Action levothyroxine 50 mcg tablet 50 mcg PO QAM potassium chloride 10 mEq tablet extended release 10 meq PO UD PRN (Reason: takes when taking lasix) Rx Instructions: hasn't been filled with her current pharmacy 08/13/23 famotidine [Pepcid] 20 mg Tablet 20 mg PO DAILY bupropion HCl 150 mg Tablet Sustained-Release 12 Hr 150 mg PO QAM Rx Instructions: TOTAL DOSE 250 MG--TAKES WITH 100 MG TAB. atorvastatin 20 mg Tablet 20 mg PO QAM cyanocobalamin (vitamin B-12) 1,000 mcg Tablet 1,000 mcg PO QAM Rx Instructions: otc unable to verify 08/13/23 bupropion HCl 100 mg Tablet Sustained-Release 12 Hr 100 mg PO QAM Rx Instructions: TOTAL DOSE 250 MG--TAKES WITH 150 MG TAB. losartan 100 mg Tablet 25 mg PO QAM fluoxetine 60 mg Tablet 60 mg PO QAM insulin aspart U-100 [Novolog U-100 Insulin aspart] 100 unit/mL Solution 1 sliding scale dose SUBCUT TIDM Patient Comments: sliding scale Rx Instructions: DOSE TAKE BSG MINUS 120--1 UNIT FOR EVERY 20 LEFT OVER. CARB RATIO 7 CARBS=1 UNIT. Max dose 35 units (med rec: pt notes 9g = 1 unit) mirabegron [Myrbetriq] 50 mg Tablet Extended Release 24 Hr 50 mg PO QAM Xultophy 100/3.6 100 unit-3.6 mg /mL (3 mL) Insulin Pen 25 unit SUBCUT DAILY Rx Instructions: per pharmacy -up to 50 units daily per titration. 08/13/23 albuterol sulfate 90 mcg/actuation HFA aerosol inhaler 2 puff INHALATION Q4H PRN (Reason: Shortness Of Breath Or Wheezing) insulin glargine [Lantus Solostar U-100 Insulin] 100 unit/mL (3 mL) insulin pen 4 unit SUBCUT DAILY furosemide 40 mg tablet 40 mg PO DAILY Eliquis 5 mg tablet 5 mg PO BID Qty: 60 0RF metoprolol succinate 25 mg Tablet Extended Release 24 Hr 12.5 mg PO BID Qty: 30 0RF cholecalciferol (vitamin D3) [Vitamin D3] 50 mcg (2,000 unit) Tablet 50 mcg PO DAILY Referrals Referrals: Aviva Rossi DO [Primary Care Provider] -
[2023-09-04 14:22] LABS: Basophils # (auto) 0.02 K/uL (0.00-0.20); Basophils % (auto) 0.2 %; Eosinophils # (auto) 0.07 K/uL (0.00-0.50); Eosinophils % (auto) 0.8 %; Hematocrit (blood only) 37.5 % (37.0-47.0); Immature Granulocytes # (auto) 0.02 K/uL (0.01-0.20); Immature Granulocytes % (auto) 0.2 %; Lymphocytes # (auto) 1.21 K/uL (1.20-3.40); Lymphocytes % (auto) 13.4 %; Mean Corpuscular Hemoglobin 28.6 pg (25.0-34.0); Mean Corpuscular Volume 89.3 fL (80.0-100.0); Mean Platelet Volume 10.3 fL (9.4-12.4); Monocytes # (auto) 0.71 K/uL (0.11-0.59); Monocytes % (auto) 7.8 %; Neutrophils # (auto) 7.02 K/uL (1.40-6.50); Neutrophils % (auto) 77.6 %; Platelet Count 268 K/uL (130-400); RDW Standard Deviation 42.2 fL (36.4-46.3); White Blood Count 9.05 K/ul (4.8-10.8)
[2023-09-04 14:34] LABS: Albumin Globulin Ratio 1.2 (0.9-2); Albumin Level 3.9 gm/dl (3.4-5.0); BUN Creatinine Ratio 27.1 (10-20); Bilirubin,Total 0.8 mg/dl (0.2-1.0); Calcium 9.7 mg/dl (8.6-10.3); Creatinine Clr Calc Pharmacy 51.9 ml/min; Est GFR (African American) 48.6 ml/min; Est GFR (Non-African American) 41.9 ml/min; Globulin 3.2 gm/dl (2.5-4.0); Magnesium 2.3 mg/dl (1.7-2.4); Potassium 4.5 mmol/L (3.5-5.1); Total Protein 7.1 gm/dl (6.0-8.3)
[2023-09-04 14:40] LABS: Troponin I High Sensitivity 5.4 pg/ml (0-14)
[2023-09-04 14:49] LABS: Thyroid Stimulating Hormone 1.241 uIu/ml (0.300-4.500)
--- NOTE | 2023-09-04 15:04 | XRay Report ---
XR chest 1V portable CLINICAL HISTORY: weakness COMPARISON STUDY: Chest radiograph August 13, 2023. FINDINGS: Lung volumes are normal. Lungs are clear. There is no pneumothorax or pleural effusion. Car diac size is stable. Mediastinal contours are normal. There is no evidence for pulmonary edema. IMPRESSION: No acute cardiopulmonary findings. . No significant change in appearance of the chest. ACT 112: Negative or not required by law. Electronically signed by: Ronald Jeff M.D. 09/04/2023 3:02 PM
[2023-09-04 15:38] LABS: Adenovirus PCR Not Detected (NotDetected); Bordetella parapertussis PCR Not Detected (NotDetected); Bordetella pertussis PCR Not Detected (NotDetected); Chlamydia pneumoniae PCR Not Detected (NotDetected); Coronavirus 229E PCR Not Detected (NotDetected); Coronavirus CoV-2 (COVID19)PCR Not Detected (NotDetected); Coronavirus HKU1 PCR Not Detected (NotDetected); Coronavirus NL63 PCR Not Detected (NotDetected); Coronavirus OC43PCR Not Detected (NotDetected); Human Metapneumovirus PCR Not Detected (NotDetected); Influenza A PCR Not Detected (NotDetected); Influenza B PCR Not Detected (NotDetected); Mycoplasma pneumoniae PCR Not Detected (NotDetected); Parainfluenza Virus 1 PCR Not Detected (NotDetected); Parainfluenza Virus 2 PCR Not Detected (NotDetected); Parainfluenza Virus 3 PCR Not Detected (NotDetected); Parainfluenza Virus 4 PCR Not Detected (NotDetected); Respiratory Syncytial VirusPCR Not Detected (NotDetected); Rhinovirus/Enterovirus PCR Not Detected (NotDetected)
--- NOTE | 2023-09-04 17:47 | Electrocardiogram Report ---
Test Reason : Blood Pressure : / mmHG Vent. Rate : 070 BPM Atrial Rate : 070 BPM P-R Int : 160 ms QRS Dur : 084 ms QT Int : 398 ms P-R-T Axes : 049 021 042 degrees QTc Int : 429 ms Normal sinus rhythm Low voltage QRS Borderline ECG When compared with ECG of 15-AUG-2023 06:18, Nonspecific T wave abnormality now evident in Anterior leads Confirmed by Ephraim Arredondo ([id number] on 09/04/2023 5:47:00 PM Referred By: Aviva Rossi Confirmed By:Aleksey Arredondo
[2023-09-04 18:13] LABS: Appearance Urine Cloudy (Clear); Bacteria Urine Automated None Seen (None Seen); Bilirubin Urine Negative (Negative); Blood Urine Negative (Negative); Color Urine Yellow; Glucose Urine UA Negative (Negative); Ketones Urine Trace (Negative); Leukocyte Esterase Urine Negative (Negative); Nitrite Urine Negative (Negative); Protein Urine 1+ (Negative); RBC Urine Automated 0-2 /hpf (0-2); Specific Gravity Urine 1.018 (1.000-1.030); Uric Acid Crystals Urine Present (None Prsent); Urobilinogen Urine Negative (Negative); WBC Urine Automated 0-5 /hpf (0-5); pH Urine 5.5 (4.5-7.5)
[2023-09-04] MEDS: SODIUM CHLORIDE 0.9% 1,000 ML IV ONE ×2 (20:13→21:52)
--- NOTE | 2023-09-04 20:25 | History & Physical Report ---
Date of Service September 04, 2023 Assessment & Plan (1) ARF (acute renal failure): Plan: Possible viral GI illness Possible deconditioning following recent confinement chronic diastolic heart failure (EF 60 to 65% TTE 2023), patient on the dry side A-fib on Eliquis hypertension, currently stable CATHERINE on CPAP DM 2 insulin requiring, well-controlled as recent hemoglobin A1c of 6 0.3 last month hypothyroidism, euthyroid as of today's TSH endometrial cancer status post surgery chronic anemia, hemoglobin better than baseline likely secondary to hemoconcentration ADHD, anxiety/mood disorder, at baseline past tobacco abuse OBS GMF Monitor creatinine response to IVF Hold home diuretic, losartan until creatinine back to baseline Basal insulin, ISS BG goal 1 10-1 40, carb count coverage PT OT eval DVT prophylaxis. Eliquis Full code Text document was generated using [employer] voice recognition software. It may contain grammatical or spelling errors. Kindly contact undersigned for clarification of any documentation item in question. History of Present Illness Chief Complaint: Weakness, nausea, vomiting Primary Care Provider: Aviva Rossi DO History obtained from patient and records. Medical history significant for chronic diastolic heart failure (EF 60 to 65% TTE 2023), A-fib on Eliquis, PSVT, mild TR, hypertension, CATHERINE on CPAP DM 2 insulin requiring, hypothyroidism, ocular myasthenia gravis as per records, endometrial cancer status post surgery, IBS, chronic anemia (baseline hemoglobin of 11), ADHD, anxiety/mood disorder, past tobacco abuse. Recent confinement last month for CHF, new onset A-fib with AVR and Klebsiella UTI. Patient discharged on beta-grady and Eliquis. Completed outpatient antibiotic course. Patient still feeling weak upon discharge home. Increasing weakness the last few days. Nausea, vomiting without abdominal pain. No headache, no chest pain, usual SOB. Patient not comfortable going home after evaluation at the ER. 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 Allergies Allergy/AdvReac Type Severity Reaction Status Date / Time penicillin G Allergy Intermediate HIVES Verified 09/04/23 19:15 codeine AdvReac Intermediate VOMITING Verified 09/04/23 19:15 hydrocodone AdvReac Intermediate Vomiting Verified 09/04/23 19:15 Home Medications Medication Instructions Recorded Confirmed Type atorvastatin 20 mg tablet 20 mg PO QAM 03/27/21 09/04/23 History bupropion HCl 100 mg tablet,12 hr 100 mg PO QAM 03/27/21 09/04/23 History sustained-release bupropion HCl 150 mg tablet,12 hr 150 mg PO QAM 03/27/21 09/04/23 History sustained-release cyanocobalamin (vitamin B-12) 1,000 mcg PO QAM 03/27/21 09/04/23 History 1,000 mcg tablet fluoxetine 60 mg tablet 60 mg PO QAM 03/27/21 09/04/23 History losartan 100 mg tablet 25 mg PO QAM 03/27/21 09/04/23 History levothyroxine 50 mcg tablet 50 mcg PO QAM 08/13/22 09/04/23 History insulin aspart U-100 100 unit/mL 1 sliding scale dose subcut TIDM 08/27/22 09/04/23 History subcutaneous solution (Novolog U-100 Insulin aspart) potassium chloride 10 mEq 10 meq PO UD PRN takes when taking 09/09/22 09/04/23 History tablet,extended release lasix famotidine 20 mg tablet (Pepcid) 20 mg PO DAILY 09/18/22 09/04/23 History insulin degludec 100 25 unit subcut DAILY 01/30/23 09/04/23 History unit-liraglutide 3.6 mg/mL(3 mL) subcutaneous pen (Xultophy 100/3.6) mirabegron 50 mg tablet,extended 50 mg PO QAM 01/30/23 09/04/23 History release 24 hr (Myrbetriq) albuterol sulfate 90 mcg/actuation 2 puff inhalation Q4H PRN 08/13/23 09/04/23 History aerosol inhaler Shortness Of Breath Or Wheezing furosemide 40 mg tablet 40 mg PO DAILY 08/13/23 09/04/23 History insulin glargine 100 unit/mL (3 4 unit subcut DAILY 08/13/23 09/04/23 History mL) subcutaneous pen (Lantus Solostar U-100 Insulin) apixaban 5 mg tablet (Eliquis) 5 mg PO BID #60 tabs 05/23/24 06/13/24 Rx metoprolol succinate 25 mg 12.5 mg (1/2 x 25 mg) PO BID #30 08/15/23 09/04/23 Rx tablet,extended release 24 hr tabs cholecalciferol (vitamin D3) 50 50 mcg PO DAILY 09/04/23 09/04/23 History mcg (2,000 unit) tablet (Vitamin D3) Past Med/Surg History Problem List (Updated 09/05/23 @ 09:51 by Pratik Manzano MD) ARF (acute renal failure) Nausea & vomiting (Acute) Shortness of breath (Acute) Elevated brain natriuretic peptide (BNP) level (Acute) Generalized weakness (Acute) Atrial fibrillation with rapid ventricular response Acute UTI (Acute) Heart palpitations (Acute) Leg swelling (Acute) Colon polyp Colon cancer screening Encounter for pre-operative examination (Acute) Hyperlipidemia Hypertension Diabetes mellitus, type 2 dexcom intact Medical History Chronic cough 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, 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 Hypothyroidism Myasthenia gravis "EFFECTS ONLY MY VOCAL CORDS" Arthritis Stress incontinence in female GERD (gastroesophageal reflux disease) Hx of cancer of endometrium Idiopathic hypersomnia ADHD Depression Peripheral neuropathy Hx of migraines Irregular heart beats NO CARDS Hx of sleep apnea NO DEVICE Chronic obstructive pulmonary disease H/O Surgical History History of surgery lymph node removed from forehead (benign) Hx of cataract extraction right/left History of esophagogastroduodenoscopy (EGD) H/O colonoscopy with polypectomy H/O total hysterectomy History of tooth extraction Nausea and vomiting after administration of anesthetic agent Family History Other No family history of adverse response to anesthesia Social History Smoking Status: Former smoker Tobacco Type: Cigarettes Smoking End Date: 1990; Second Hand Exposure: Yes (as a small child); Do You Dip or Chew Tobacco: No; Hx Alcohol Use: Yes Alcohol type: wine Hx Substance Use: No Preferred Language: Belarusian Communication Ability: Effective Medical Doctor Md Required: No Beliefs That Will Affect Care: None Current Living Situation: Alone Feels Safe at Home: Yes Safety Concerns: Feels Safe At This Time Assistive Devices: Cane, Glasses and Wheelchair Assistive Devices Comment: cane & glasses at bedside Review of Systems Review of Systems: As per HPI, all other systems reviewed and negative Physical Exam Physical Exam: GENERAL: Comfortable, pleasant, morbidly obese, no respiratory distress SKIN: Pallor, warm HEENT: Pale palpebral conjunctivae, no ptosis, dry buccal mucosa NECK : Supple, short neck, no tenderness CHEST : CTA, no tenderness HEART : RRR, no obvious murmurs ABDOMEN: Some distention, nontender EXTREMITIES : Minimal LE swelling, no LE tenderness, no other conspicuous deformities noted NEUROLOGIC : Coherent, no facial asymmetry, gait and stance not assessed Results & Data Results & Data Vital Signs (Past 12 Hours) Vital Signs Temp Pulse Pulse Resp BP Pulse Ox O2 Del Method 09/04/23 20:06 67 141/68 H 94 Room Air 09/04/23 19:12 70 124/71 98 Room Air 09/04/23 19:00 72 95 09/04/23 18:03 72 95 09/04/23 17:27 137/64 09/04/23 17:09 95 09/04/23 17:00 97 09/04/23 16:18 94 09/04/23 15:02 197/131 H 09/04/23 15:01 70 16 94 Room Air 09/04/23 15:00 72 19 94 09/04/23 14:00 70 15 94 09/04/23 13:59 97 Room Air 09/04/23 13:58 97 Room Air 09/04/23 13:48 70 09/04/23 13:45 71 19 96 09/04/23 13:25 36.4 C L 72 12 159/84 H 97 Room Air Laboratory Results Laboratory Results WBC 9.05 K/ul (4.8-10.8) 09/04/23 13:55 RBC 4.20 M/uL (4.20-5.40) 09/04/23 13:55 Hgb 12.0 g/dl (12.0-16.0) 09/04/23 13:55 Hct 37.5 % (37.0-47.0) 09/04/23 13:55 MCV 89.3 fL (80.0-100.0) 09/04/23 13:55 MCH 28.6 pg (25.0-34.0) 09/04/23 13:55 MCHC 32.0 g/dL (32.0-36.0) 09/04/23 13:55 RDW Std Deviation 42.2 fL (36.4-46.3) 09/04/23 13:55 RDW Coeff of [place] 13.0 % (11.5-14.5) 09/04/23 13:55 Plt Count 268 K/uL (130-400) 09/04/23 13:55 MPV 10.3 fL (9.4-12.4) 09/04/23 13:55 Immature Gran % (Auto) 0.2 % 09/04/23 13:55 Neut % (Auto) 77.6 % 09/04/23 13:55 Lymph % (Auto) 13.4 % 09/04/23 13:55 [place] % (Auto) 7.8 % 09/04/23 13:55 Eos % (Auto) 0.8 % 09/04/23 13:55 Baso % (Auto) 0.2 % 09/04/23 13:55 Neut # (Auto) 7.02 K/uL (1.40-6.50) H 09/04/23 13:55 Lymph # (Auto) 1.21 K/uL (1.20-3.40) 09/04/23 13:55 [place] # (Auto) 0.71 K/uL (0.11-0.59) H 09/04/23 13:55 Eos # (Auto) 0.07 K/uL (0.00-0.50) 09/04/23 13:55 Baso # (Auto) 0.02 K/uL (0.00-0.20) 09/04/23 13:55 Immature Gran # (Auto) 0.02 K/uL (0.01-0.20) 09/04/23 13:55 Sodium 136 mmol/L (136-145) 09/04/23 13:55 Potassium 4.5 mmol/L (3.5-5.1) 09/04/23 13:55 Chloride 103 mmol/L (98-107) 09/04/23 13:55 Carbon Dioxide 28 mmol/L (21-32) 09/04/23 13:55 Anion Gap 5 (3-11) 09/04/23 13:55 BUN 35 mg/dl (6-23) H 09/04/23 13:55 Creatinine 1.29 mg/dl (0.6-1.2) H 09/04/23 13:55 Est Cr Clr Drug Dosing 51.9 ml/min 09/04/23 13:55 Est GFR ( Amer) 48.6 ml/min 09/04/23 13:55 Est GFR (Non-Af Amer) 41.9 ml/min 09/04/23 13:55 BUN/Creatinine Ratio 27.1 (10-20) H 09/04/23 13:55 Glucose 109 mg/dl (70-99(Fasting)) H 09/04/23 13:55 Lactate 0.8 mmol/L (0.4-2.0) 09/04/23 14:56 Calcium 9.7 mg/dl (8.6-10.3) 09/04/23 13:55 Magnesium 2.3 mg/dl (1.7-2.4) 09/04/23 13:55 Total Bilirubin 0.8 mg/dl (0.2-1.0) 09/04/23 13:55 AST 13 U/L (13-39) 09/04/23 13:55 ALT 11 U/L (7-52) 09/04/23 13:55 Alkaline Phosphatase 45 U/L (34-104) 09/04/23 13:55 Troponin I High Sens 5.4 pg/ml (0-14) 09/04/23 13:55 B-Natriuretic Peptide 311 pg/ml (0-100) H 09/04/23 14:26 Total Protein 7.1 gm/dl (6.0-8.3) 09/04/23 13:55 Albumin 3.9 gm/dl (3.4-5.0) 09/04/23 13:55 Globulin 3.2 gm/dl (2.5-4.0) 09/04/23 13:55 Albumin/Globulin Ratio 1.2 (0.9-2) 09/04/23 13:55 Procalcitonin < 0.02 ng/ml (0-0.5) 09/04/23 13:55 TSH 1.241 uIu/ml (0.300-4.500) 09/04/23 13:55 Urine Color Yellow 09/04/23 Unknown Urine Appearance Cloudy (Clear) A 09/04/23 Unknown Urine pH 5.5 (4.5-7.5) 09/04/23 Unknown Ur Specific [place] 1.018 (1.000-1.030) 09/04/23 Unknown Urine Protein 1+ (Negative) H 09/04/23 Unknown Urine Glucose (UA) Negative (Negative) 09/04/23 Unknown Urine Ketones Trace (Negative) H 09/04/23 Unknown Urine Blood Negative (Negative) 09/04/23 Unknown Urine Nitrite Negative (Negative) 09/04/23 Unknown Urine Bilirubin Negative (Negative) 09/04/23 Unknown Urine Urobilinogen Negative (Negative) 09/04/23 Unknown Ur Leukocyte Esterase Negative (Negative) 09/04/23 Unknown Urine WBC (Auto) 0-5 /hpf (0-5) 09/04/23 Unknown Urine RBC (Auto) 0-2 /hpf (0-2) 09/04/23 Unknown U Hyaline Cast (Auto) 3-5 /lpf (0-2) H 09/04/23 Unknown U Epithel Cells (Auto) 3-5 /hpf (0-2) H 09/04/23 Unknown Urine Bacteria (Auto) None Seen (None Seen) 09/04/23 Unknown Uric Acid Crystals Present (None Prsent) A 09/04/23 Unknown Adenovirus (PCR) Not Detected (NotDetected) 09/04/23 14:38 B. pertussis DNA (PCR) Not Detected (NotDetected) 09/04/23 14:38 B.parapertussis DNA PCR Not Detected (NotDetected) 09/04/23 14:38 C. pneumoniae DNA (PCR) Not Detected (NotDetected) 09/04/23 14:38 Coronavirus OC43 (PCR) Not Detected (NotDetected) 09/04/23 14:38 Coronavirus HKU1 (PCR) Not Detected (NotDetected) 09/04/23 14:38 Coronavirus 229E (PCR) Not Detected (NotDetected) 09/04/23 14:38 SARS-CoV-2 (PCR) Not Detected (NotDetected) 09/04/23 14:38 Coronavirus NL63 (PCR) Not Detected (NotDetected) 09/04/23 14:38 Human Metapneumovir PCR Not Detected (NotDetected) 09/04/23 14:38 Influenza Type A (PCR) Not Detected (NotDetected) 09/04/23 14:38 Influenza Type B (PCR) Not Detected (NotDetected) 09/04/23 14:38 M. pneumoniae (PCR) Not Detected (NotDetected) 09/04/23 14:38 Parainfluenza 1 (PCR) Not Detected (NotDetected) 09/04/23 14:38 Parainfluenza 2 (PCR) Not Detected (NotDetected) 09/04/23 14:38 Parainfluenza 3 (PCR) Not Detected (NotDetected) 09/04/23 14:38 Parainfluenza 4 (PCR) Not Detected (NotDetected) 09/04/23 14:38 RSV (PCR) Not Detected (NotDetected) 09/04/23 14:38 Entero/Rhino (PCR) Not Detected (NotDetected) 09/04/23 14:38 Impressions Chest X-Ray 09/04/23 13:59 XR chest 1V portable CLINICAL HISTORY: weakness COMPARISON STUDY: Chest radiograph August 13, 2023. FINDINGS: Lung volumes are normal. Lungs are clear. There is no pneumothorax or pleural effusion. Cardiac size is stable. Mediastinal contours are normal. There is no evidence for pulmonary edema. IMPRESSION: No acute cardiopulmonary findings. . No significant change in appearance of the chest. ACT 112: Negative or not required by law. Electronically signed by: Ronald Jeff M.D. 09/04/2023 3:02 PM Diagnostic Findings EKG as per my interpretation :Rate 70, NSR, normal axis, T wave abnormalities septal leads, low voltage
[2023-09-04] MEDS ORDERED: PROMETHAZINE HCL 12.5 MG in SODIUM CHLORIDE 0.9% 50 ML IV PRN (20:29)
[2023-09-04] MEDS: ONDANSETRON INJ 2 MG/ML 2 ML VIAL IV STA (20:40)
[2023-09-04] MEDS: ACETAMINOPHEN 325 MG TAB PO STA (20:40)
[2023-09-04] MEDS ORDERED: GLUCOSE 10 TAB/TUBE PO PRN (23:45)
[2023-09-04] MEDS ORDERED: DEXTROSE 50% 50 ML SYRINGE IV PRN (23:45)
[2023-09-04] MEDS ORDERED: CARBOHYDRATES FOR HYPOGLYCEMIA PO PRN (23:45)
[2023-09-04] MEDS ORDERED: GLUCOSE 40% GEL 15 GM TUBE PO PRN (23:45)
[2023-09-04] MEDS ORDERED: GLUCAGON FOR INJ 1 MG VIAL SQ PRN (23:45)
[2023-09-05] MEDS: INSULIN ASPART PER UNIT CHARGE SC SCH (00:11)
[2023-09-05] MEDS: METOPROLOL SUCC 25MG EXT REL TAB PO SCH (00:40)
[2023-09-05] MEDS: APIXABAN 5 MG TABLET PO SCH (01:43)
[2023-09-05] MEDS: ACETAMINOPHEN 325 MG TAB PO PRN (04:59)
[2023-09-05] MEDS: LEVOTHYROXINE SODIUM 50 MCG TABLET PO SCH (05:00)
[2023-09-05 07:55] LABS: Basophils # (auto) 0.04 K/uL (0.00-0.20); Basophils % (auto) 0.4 %; Eosinophils # (auto) 0.07 K/uL (0.00-0.50); Eosinophils % (auto) 0.7 %; Hemoglobin 11.1 g/dl (12.0-16.0); Immature Granulocytes # (auto) 0.04 K/uL (0.01-0.20); Immature Granulocytes % (auto) 0.4 %; Lymphocytes # (auto) 1.58 K/uL (1.20-3.40); Lymphocytes % (auto) 16.8 %; Mean Corpuscular Hemoglobin 28.6 pg (25.0-34.0); Mean Corpuscular Hgb Conc 31.7 g/dL (32.0-36.0); Mean Corpuscular Volume 90.2 fL (80.0-100.0); Mean Platelet Volume 10.1 fL (9.4-12.4); Monocytes # (auto) 0.66 K/uL (0.11-0.59); Neutrophils % (auto) 74.7 %; Platelet Count 245 K/uL (130-400); RDW Coefficient of Variation 12.8 % (11.5-14.5); RDW Standard Deviation 42.4 fL (36.4-46.3); Red Blood Count 3.88 M/uL (4.20-5.40); White Blood Count 9.39 K/ul (4.8-10.8)
[2023-09-05] MEDS: ATORVASTATIN 20 MG TAB PO SCH (08:07)
[2023-09-05] MEDS: FAMOTIDINE 20 MG TAB PO SCH (08:08)
[2023-09-05] MEDS: buPROPion SR 150 MG TABCR PO SCH (08:08)
[2023-09-05] MEDS: CYANOCOBALAMIN (B-12) 500 MCG TABLET PO SCH (08:08)
[2023-09-05] MEDS: FLUoxetine HCL 20 MG CAP PO SCH (08:09)
[2023-09-05] MEDS: VIBEGRON 75 MG TAB PO SCH (08:10)
[2023-09-05 08:19] LABS: Calcium 8.8 mg/dl (8.6-10.3); Creatinine Clr Calc Pharmacy 69.7 ml/min; Est GFR (African American) 69.4 ml/min; Est GFR (Non-African American) 59.9 ml/min; Potassium 4.5 mmol/L (3.5-5.1)
[2023-09-05] MEDS: LANTUS PER UNIT CHARGE SC SCH ×2 (08:22→20:52)
[2023-09-05] MEDS: CEFEPIME 1,000 MG in SYRINGE 0 ML IV SCH (16:13)
--- NOTE | 2023-09-05 16:43 | Hospitalist Progress Note ---
Date of Service September 05, 2023 Assessment & Plan (1) ARF (acute renal failure): Plan: Generalized weakness Recent UTI Deconditioning Acute kidney injury --CXR:No acute cardiopulmonary findings. . No significant change in appearance of the chest. -- BioFire negative Reviewed outpatient urine culture: Urine culture from August 2023 grew Enterobacter Patient states that she is to finish her Bactrim course for 2 more days Continue current IV fluids Will give IV cefepime to complete antibiotic course PT OT, fall precaution Will likely need rehab placement Case management to help with discharge planning Losartan, lasix on hold Renal function improved Avoid nephrotoxic agents as able Chronic diastolic heart failure EF 60 to 65% TTE 2023 Monitor volume status Resume home diuretics as able Atrial fibrillation Continue metoprolol On Eliquis for anticoagulation next Hypertension Continue metoprolol Resume losartan as able Monitor BP CATHERINE on CPAP DM II Last HbA1c 6.8 Continue insulin while hospitalized Monitor BGs Hypothyroidism Normal TSH Continue levothyroxine Endometrial cancer S/P surgery ADHD, anxiety/mood disorder Past tobacco abuse Continue home medications DVT Px: Eliquis Code Status Full code Disposition Rehab when accepted Admission and Anticipated Discharge Date Admission Date: September 05, 2023 Subjective Patient is seen and examined at bedside States feeling better today Nausea improving, denies any vomiting. Evaluated by PT today Still has minimal dysuria Denies any chest pain, dyspnea, dizziness, abdominal pain No other complaints Review of Systems Review of Systems: All systems reviewed & are unremarkable except as noted in Subjective Physical Exam Physical Exam: Physical Exam: Vitals signs as noted above General Appearance:Obese, no apparent distress Head: normocephalic, Atraumatic Eyes: normal inspection, EOMI Neck: supple, Trachea midline Respiratory/Chest: Normal breath sounds, CTA, No accessory muscle use Cardiovascular: S1, S2, No murmur Abdomen/GI:Soft, Non tender, Bowel sounds present Extremities/Musculoskeletal:normal inspection, Trace edema Neurologic/Psych:AAOX3, grossly no focal neurological deficits Skin: normal color, warm Results & Data Results & Data Vital Signs (Past 12 Hours) Vital Signs Temp Pulse Resp BP Pulse Ox O2 Del Method 09/05/23 15:30 36.3 C L 65 16 99/63 L 95 Room Air 09/05/23 08:43 36.5 C 61 16 132/75 97 Room Air Laboratory Results Short CBC 06/14/24 Range/Units 07:30 WBC 9.39 (4.8-10.8) K/ul Hgb 11.1 L (12.0-16.0) g/dl Hct 35.0 L (37.0-47.0) % Plt Count 245 (130-400) K/uL BMP 09/05/23 07:30 Sodium 137 Potassium 4.5 Chloride 106 Carbon Dioxide 27 BUN 24 H Creatinine 0.96 D Glucose 105 H Calcium 8.8 Urine 09/04/23 Range/Units Unknown Urine Color Yellow Urine Appearance Cloudy A (Clear) Urine pH 5.5 (4.5-7.5) Ur Specific [place] 1.018 (1.000-1.030) Urine Protein 1+ H (Negative) Urine Glucose (UA) Negative (Negative)
[2023-09-05] MEDS: SODIUM CHLORIDE 0.9% 1,000 ML IV ONE (17:56)
[2023-09-05] MEDS: buPROPion SR 100 MG TABCR PO SCH (20:51)
--- OUTSIDE RECORDS SUMMARY | 2023-09-06 05:57 | External Medical Summary | Summary of Care ---
Author Name Unknown Organization [facility] Address [address] [place] [address] Phone [phone] Care Team Providers Care Lead Pharmacy Technician Name Role Phone Aviva Rossi DO Primary Care Provider [phone] Reason for Visit * Reason Onset Date Comments [facility]: Maintenance 09/01/2023 Encounter Details Date Type Department Care Team (Late st Contact Info) Description 09/01/2023 Telephone [facility], [facility] [address] [facility] [place] [address] [facility], Nurse [facility] [address] [facility] [place] [address] [facility]: Maintenance Allergies Active Allergy Reactions Criticality Noted Date Comments Codeine 11/20/2012 Nausea and vomiting Lisinopril 06/12/2015 ?cough Penicillin G 11/20/2012 Hives Hydrocodone-Acetaminophen 11/20/2012 Nausea and vomiting documented as of this encounter (statuses as of 09/02/2023) Medications Medication Sig Dispensed Refills Start Date End Date Status Cyanocobalamin 1000 MCG Oral Tablet (Cyanocobalamin) Take [...] 35 UNITS 30 mL 3 10/03/2022 Active Additional Information Patient taking differently: INJECT WITH WITH EACH MEAL PER CARB RATIO 1:10 AND CORRECTION FACTOR 1:15>120 MAX DAILY DOSE 35 UNITS, Reported on 08/25/2023 Xultophy 100-3.6 UNIT-MG/ML Subcutaneous Solution Pen-injector (Insulin Degludec-Liraglutid e) Inject up to 50 units daily subcutaneously as directed per titration schedule 45 mL 3 11/27/2022 Active Additional Information Patient taking differently: Inject up to 50 units daily subcutaneously as directed per titration schedule.Pt reports she is currently only taking 25 units., Reported on 08/25/2023 Pen [place] 3/16" 31G X 5 MM Use daily to inject insulin 4 times daily 400 Each 1 11/27/2022 Active Insulin Glargine Solostar 100 UNIT/ML Subcutaneous Solution Pen-injectorIndicat ions:Diabetes mellitus with peripheral vascular disease (HCC),Type 2 diabetes mellitus with hemoglobin A1c goal of less than 8.0% ([facility]) Titrate down per titration schedule as starting Xultophy. Pt reports she is currently taking 4 units. 11/27/2022 Active FLUoxetine HCl 20 MG [...] for Dyspnea. 54 g 1 01/08/2023 Active buPROPion HCl ER (SR) 150 MG [...] the morning. 90 Tablet 3 06/17/2023 Active metoprolol succinate XL 12.5 MG OR TB24 Take 0.5 Tablets by mouth in the morning and 0.5 Tablets before bedtime. Active Losartan Potassium 25 MG Oral Tablet (Cozaar)Indications :Hypertension goal BP (blood pressure) < 140/90 Take 1 Tablet by mouth in the morning. 30 Tablet 1 08/25/2023 Active Apixaban 5 MG Oral Tablet (Eliquis)Indication s:Hospital discharge follow-up,Atrial fibrillation with RVR ([facility]) Take 1 Tablet by mouth in the morning and 1 Tablet before bedtime. 60 Tablet 1 08/25/2023 Active Cephalexin 500 MG Oral CapsuleIndications: Dysuria Take 1 Capsule by mouth in the morning and 1 Capsule before bedtime. Do all this for 10 days. 20 Capsule 08/25/2023 09/04/19 24 Active Sulfamethoxazole-Tr imethoprim 800-160 MG Oral Tablet (Bactrim DS) Take 1 Tablet by mouth in the morning and 1 Tablet before bedtime. Do all this for 7 days. Until gone. 14 Tablet 08/29/2023 09/05/19 24 Active Ondansetron HCl 4 MG Oral TabletIndications:N ausea Take 1 Tablet by mouth every 6 hours as needed for Nausea. 30 Tablet 09/01/2023 Active Hospital, Clinic, or Other Facility Administered Medication Ordered Dose Route Frequency Start Date End Date Status Albuterol Sulfate (Proventil) (2.5 MG/3ML) 0.083% inhalation solution 2.5 mgIndications:Shortness of breath,History of asthma 2.5 mg NEBULIZER ONCE PRN 01/07/2023 01/07/2024 Active documented as of this encounter (statuses as of 09/02/2023) Active Problems Problem Noted Date Diagnosed Date [...] to patient at prior appointment. Ex-smoker 09/03/2013 IBS (irritable bowel syndrome) Stress incontinence Type 2 diabetes mellitus wit h hemoglobin A1c goal of less than 8.0% Overview: ICD-10 update of inactive term Myasthenia gravis Overview: 1999. Dx . Vocal cords. ENT in [place]. 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 0 to 59.9 in adult 12/23/2016 07/03/2023 Overview: Per Obesity protocol #1 Endometrial carcinoma 11/12/20132022 Ovarian mass 12/17/2012 07/09/2013 Overview: S/p SANA BSO Endometrial thickening on ultrasound 12/17/2012 07/09/2013 Overview: ICD-10 update of inactive term Postmenopausal vaginal bleeding 12/17/2012 07/09/2013 Routine general medical exam ination at a health care facility 12/17/2012 08/22/2023 Overview: 01/06 JcBlair-CT chest angio WNL 10/06 EGD WNL. 01/06 EGD WNL. Consider gaviscon, Manometry 12/05 colonoscopy-5mm polyps--path---tubular adenoma. TRUONG 5 years 11/04 PFTs done. Some improvement w/albuterol. 08/04 TTE-mild delcid dysfunction 07/05 start lantus/novolog-refer MTM----, Psychiatrist. Sees Dr Sanders-Lawrence @[facility] [phone] Morbid obesity 12/26/2016 Overview: Per Obesity protocol #1 PMB (postmenopausal bleeding) 11/12/2013 Chronic cough 08/22/2023 Productive cough 08/22/2023 Overview: chronic Left knee injury 06/09/2023 Elevated WBC count 4 documented as of this encounter (statuses as of 09/02/2023) Immunizations Name Administration Dates Next Due COVID-19 mRNA, LNP-s, No Pre serve, 2-Dose Series (iExplore) 09/21/2020,05/22/2020 COVID-19, MRNA-LNP, 23-24, P F, 30 MCG/0.3 mL, 12 YRS AND ABOVE, IM ([facility] 08/25/2023,01/07/2023 Covid-19, Mrna, Lnp-s, Pf, B ivalent, 30 [...] Date Recorded PHQ Adult Total Score 0 08/20/2023 Hunger Vital Sign Answer Date Recorded Within the past 12 months, y ou worried that your food would run out before you got the money to buy more. Never true 08/20/19 24 Within the past 12 months, t he food you bought just didn't last and you didn't have money to get more. Never true 08/20/2023 Sex and Gender Information Value Date Recorded Sex Assigned at Female 09/25/2022 9:34 PM EDT Gender Identity Female 09/25/2022 9:34 PM EDT Sexual Orientation Don't know 09/25/2022 9: 34 PM EDT Job Start Date Occupation Industry Not on file Not on file Not on file documented as of this encounter Miscellaneous Notes * Telephone Encounter - Gaby Gordon RN - 09/02/2023 1:49 PM EDT Chart reviewed in follow up, pt's PCP spoke with pt and acute symptoms improving. [facility] visits as scheduled. Pt to call with new or worsening symptoms. * Telephone Encounter - Gaby Gordon RN - 09/01/2023 5:34 PM EDT In-basket message rec'd from PCP office for pt not yet enrolled with [facility], scheduled for [facility] enrollment visit 09/10, requesting sooner visit due to acute concerns. Call placed to pt. Pt reports she hasn't felt well for about 1 week, was discharged from [facility] just before , from PCP f/u note: Pt was admitted with Jennifer with RVR.She was started on Eliquis and metoprolol. Some element of diastolic CHF. Treated with IV lasix. She was also treated for klebsiella UTI. Other issues noted to be stable. She was discharged to home on 08/14 Reports some SOB with exertion. "Little swelling" in L leg - chronic. Tolerating PO intake but small amount, doesn't feel she's getting enough fluids, ate cherries and bread today. Vitals check while communication and outreach manager: BP 114/64, HR 64. No availability this evening for visit. Pt advised to go to ED/urgent care if symptoms worsen. [facility] route to [facility] and f/u tomorrow 09/01. documented in this encounter Plan of Treatment Upcoming Encounters Date Type Department Care Team (Late st Contact Info) Description 09/03/2023 11:00 AM EDT Scheduled Telephone Care Coordination and Integration [address] [place] [address] Ben Blair [facility] Health Tunnel Worker [address] [facility] [place] [address] 09/11/2023 12:30 PM EDT Home Visit [facility] [place], [facility] [address] [place] [address] Nubia Zamora RN [address] [place] [address] 09/16/2023 9:40 AM EDT Office Visit Family Practice [address], [place] [address] [place] [address] Aviva Rossi, DO 293 [place] [address] 09/16/2023 11:15 AM EDT Imaging Radiology [address] [place] [address] 10/01/2023 10:30 AM EDT Office Visit Cardiology, [facility] [address] [place] [address] Shaw Hickey, DO [address] [place] [address] 10/24/2023 10:55 AM EDT Hospital Encounter OR [facility], Operating Room [facility] [address] [place] [address] Jc Palafox, DO [address] [place] [address] 10/24/2023 10:55 AM EDT - 10/24/2023 11:20 AM EDT Surgery OR [facility], Operating Room [facility] [address] [place] [address] Jc Palafox, DO [address] [place] [address] INJECTION SPINE LUMBAR OR SACRAL 11/06/2023 9:00 AM EDT Home Visit [facility], [facility] [address] [place] [address] Ken Gonzalez PA-C [address] [place] [address] 11/11/2023 1:00 PM EDT Nurse Only Ancillary [address], [place] [address] [place] [address] College, Nurse Annual Wellness Visit [address] [facility] [address] [facility], [place] [address] Scheduled Procedures Name Priority Associated Diagnoses Date/Ti me INJECTION SPINE LUMBAR OR SACRAL Lumbar radiculopathy 10/24/2023 10:55 AM EDT COLONOSCOPY FLEXIBLE PROXIMAL DIAGNOSTIC Recall History of colonic polyps Health Maintenance Due Date Last Done Comments Cologuard 1998 Fecal Occult Blood Test 1998 Sigmoidoscopy 1998 Mammogram 06/05/2023 06/04/2022, 09/17/2013 HbA1c 12/18/2023 06/17/2023, 12/22, 08/06/2022, Additional history exists Diabetic Eye Exam 05/08/2024 05/08/2023, , 11/21/2022, Additional history exists Albumin/Creatinine Ratio 06/16/2024 024, 06/04/2022, 04/27/2014, Additional history exists Diabetic Foot Exam 06/16/2024 06/17/2023, 0 05/09/2022, 11/08/2015, Additional history exists TSH 06/16/2024 06/17/2023, 12/22, 11/14/2021 Depression Monitoring 08/19/2024 08/20/2023 GFR 08/24/2024 08/25/2023, 05/23, 01/07/2023, Additional history exists Colonoscopy 02/05/2026 02/05/2023, 08/23, 11/26/2013 Colorectal Cancer Screening 02/05/2026 Lipid Panel 04/19/2027 04/19/2022, 10/22, 02/02/2014, Additional history exists DXA Scan 05/21/2029 05/21/2022, 05/21/2022 DTaP,Tdap,and Td Vaccines (3 - Td or Tdap) 01/07/2033 01/07/2023, 12/17/2012 Pneumococcal Vaccine: 65+ Years Completed 05/09/2022, 07/09/2013 Zoster Vaccines Completed 09/03/2022, 04/24, 01/18/2015 Influenza Vaccine (FLU shot) Completed 01/07/2023, 05/09/2022, 03/23/2018, Additional history exists RETIRED - COLONOSCOPY-EVERY 5 YRS AGES 18-100 Discontinued 02/05/2023, 09/18/2022, 11/26/2013 COVID-19 Vaccine Completed 08/25/2023, , 05/09/2022, Additional history exists GARDASIL-HPV IMMUNIZATION SERIES Aged [...] and were consensually agreed upon. Care Teams Lead Pharmacy Technician Relationship Specialty Start Date End Date Aviva Rossi DO [address] [place], [place] [address] [place] [address] PCP - General Family Medicine 05/09/22 documented as of this encounter
--- OUTSIDE RECORDS SUMMARY | 2023-09-06 05:57 | External Medical Summary | Summary of Care ---
Author Name Unknown Organization [facility] Address [address] [place] [address] Phone [phone] Care Team Providers Care Char Filter Operator Helper Name Role Phone Aviva Rossi DO Primary Care Provider Encounter Details Date Type Department Care Team (Late st Contact Info) Description 09/03/2023 11:00 AM EDT Scheduled Telephone Care Coordination and Integration [address] [place], [place] [phone] Ben Blair [facility] Health Inspector [employer] [address] [place], [place] [phone] Allergies Active Allergy Reactions Criticality Noted Date Comments Codeine 11/20/2012 Nausea and vomiting Lisinopril 06/12/2015 ?cough Penicillin G 11/20/2012 Hives Hydrocodone-Acetaminophen 11/20/2012 Nausea and vomiting documented as of this encounter (statuses as of 09/03/2023) Medications Medication Sig Dispensed Refills Start Date [...] taking 25 units., Reported on 08/25/2023 Pen [place] 06/06" 31G X 5 MM Use daily to inject insulin 4 times daily 400 Each 1 11/27/2022 Active Insulin Glargine Solostar 100 UNIT/ML Subcutaneous Solution Pen-injectorIndicat ions:Diabetes mellitus with peripheral vascular disease (HCC),Type 2 diabetes mellitus with hemoglobin A1c goal of less than 8.0% ([facility]) Titrate down per titration schedule [...] (Eliquis)Indication s:Hospital discharge follow-up,Atrial fibrillation with RVR ([facility]) Take 1 Tablet by mouth [...] as of this encounter (statuses as of 09/03/2023) Active Problems Problem Noted Date Diagnosed Date [...] as of this encounter (statuses as of 09/03/2023) Resolved Problems Problem Noted Date Diagnosed Date [...] start lantus/novolog-refer MTM----, Psychiatrist. Sees Dr Sanders-Lawrence @[facility] [phone] Morbid obesity 12/26/2016 Overview: Per Obesity protocol #1 PMB (postmenopausal bleeding) 11/12/2013 Chronic cough 08/22/2023 Productive cough 08/22/2023 Overview: chronic Left knee injury 06/09/2023 Elevated WBC count 4 documented as of this encounter (statuses as of 09/03/2023) Immunizations Name Administration Dates Next Due COVID-19 mRNA, LNP-s, No Pre serve, 2-Dose Series (GoSave) 09/21/2020,05/22/2020 COVID-19, MRNA-LNP, 23-24, P F, 30 MCG/0.3 mL, 12 YRS AND ABOVE, IM ([facility] [employer] [facility]) 08/25/2023,01/07/2023 Covid-19, Mrna, Lnp-s, Pf, B ivalent, 30 Mcg, IM, 12 yrs and above ([employer]Save) 05/09/2022 Pneumococcal Conjugate Vaccine, 20-valent (Prevn ar20) [...] as of this encounter Progress Notes * Ben Blair, Community Health Inspector [employer] - 09/03/2023 12:53 PM EDT CHW Telemedicine visit: No Community Health Inspector [employer] (ADILENE) documentation: CHW follow up phone call for RNCM. Patient reports to having a couple rough days. She explained that she seemed to be lying in a strange angle in bed yesterday and had a tough time getting out of bed. She said afterward she experienced feeling kind of fuzzy and lightheaded and was sweating for a couple hours. She said she checks herpulse throughout the day, especially when she exerts herself to make sure it isn't dropping and it s tays around 64. She said she did get a lower BP reading of 94/58 while she was sitting, doing nothing. Patient denies any concerns that she would like to relay back to the RNCM at this time. Patient agreeable to follow up phone call in 1 week. Cong Blair Community Health Worker Lead [facility] [phone] documented in this encounter Plan of Treatment Upcoming Encounters Date Type Department Care Team (Latest Contact Info) Description 09/11/2023 12:30 PM EDT Home Visit [facility] [place], [facility] [address] [place] [address] Nubia Zamora RN [address] [place] [address] 09/16/2023 9:40 AM EDT Office Visit Family Practice [address], [place] [address] [place] [address] Aviva Rossi, DO [address] [place] [address] 09/16/2023 11:15 AM EDT Imaging Radiology [facility] [address] [place] [address] 10/01/2023 10:30 AM EDT Office Visit Cardiology, [facility] [address] [place] [address] Shaw Hickey, DO [address] [place] [address] 10/24/2023 10:55 AM EDT Hospital Encounter OR [facility], Operating Room [facility] [address] [place] [address] Jc Palafox, DO [address] [place] [address] 10/24/2023 10:55 AM EDT - 10/24/2023 11:20 AM EDT Surgery OR O[facility], Operating Room [facility] [address] [place] [address] Jc Palafox, DO [address] [place] [address] INJECTION SPINE LUMBAR OR SACRAL 11/06/2023 9:00 AM EDT [facility] [address] [place] [address] Ken Gonzalez PA-C [address] [place] [address] 11/11/2023 1:00 PM EDT Nurse Only Ancillary 65 [facility] 293 [place] [address] College, Nurse Annual Wellness Visit [facility] [address] [place] [address] Scheduled Procedures Name Priority Associated Diagnoses Date/Ti [...] and were consensually agreed upon. Care Teams Char Filter Operator Helper Relationship Specialty Start Date End Date Aviva Rossi DO [address] [place] [address] PCP - General Family Medicine 05/09/22 documented as of this encounter
--- OUTSIDE RECORDS SUMMARY | 2023-09-06 05:58 | External Medical Summary | Summary of Care ---
Author Name Unknown Organization [facility] Address [address] [place] [address] Phone [phone] Care Team Providers Care Awning Erector Name Role Phone Aviva Rossi DO Primary Care Provider Reason for Visit * Reason Onset Date Comments Order Request 08/27/202308/26 Encounter Details Date Type Department Care Team (Late st Contact Info) Description 08/27/2023 Telephone Family Practice [address] [facility] [address] [place] [id number] Aviva Rossi DO [address] [place], [place] [phone] Order Request (08/26) Allergies Active Allergy Reactions Criticality Noted Date Comments Codeine 11/20/2012 Nausea and vomiting Lisinopril 06/12/2015 ?cough Penicillin G 11/20/2012 Hives Hydrocodone-Acetaminophen 11/20/2012 Nausea and vomiting documented as of this encounter (statuses as of 08/27/2023) Medications Medication Sig Dispensed Refills Start Date [...] taking 25 units., Reported on 08/25/2023 Pen [place] 316" 31G X 5 MM Use daily to inject insulin 4 times daily 400 Each 1 11/27/2022 Active Insulin Glargine Solostar 100 UNIT/ML Subcutaneous Solution Pen-injectorIndicat ions:Diabetes mellitus with peripheral vascular disease (HCC),Type 2 diabetes mellitus with hemoglobin A1c goal of less than 8.0% ([facility]) Titrate down per titration schedule as [...] (Eliquis)Indication s:Hospital discharge follow-up,Atrial fibrillation with RVR ([facility]) Take 1 Tablet by mouth in the morning and 1 Tablet before bedtime. 60 Tablet 1 08/25/2023 Active Cephalexin 500 MG Oral CapsuleIndications: Dysuria Take 1 Capsule by mouth in the morning and 1 Capsule before bedtime. Do all this for 10 days. 20 Capsule 08/25/2023 09/04/19 24 Active Hospital, Clinic, or Other Facility Administered Medication Ordered Dose Route Frequency Start Date End Date Status Albuterol Sulfate (Proventil) (2.5 MG/3ML) 0.083% inhalation solution 2.5 mgIndications:Shortness of breath,History of asthma 2.5 mg NEBULIZER ONCE PRN 01/07/2023 01/07/2024 Active documented as of this encounter (statuses as of 08/27/2023) Active Problems Problem Noted Date Diagnosed Date [...] as of this encounter (statuses as of 08/27/2023) Resolved Problems Problem Noted Date Diagnosed Date [...] start lantus/novolog-refer MTM----, Psychiatrist. Sees Dr Sanders-Lawrence @[facility] [phone] Morbid obesity 12/26/2016 Overview: Per Obesity protocol #1 PMB (postmenopausal bleeding) 11/12/2013 Chronic cough 08/22/2023 Productive cough 08/22/2023 Overview: chronic Left knee injury 06/09/2023 Elevated WBC count documented as of this encounter (statuses as of 08/27/2023) Immunizations Name Administration Dates Next Due COVID-19 mRNA, LNP-s, No Pre serve, 2-Dose Series (whodoyou) 09/21/2020,05/22/2020 COVID-19, MRNA-LNP, 23-24, P F, 30 MCG/0.3 mL, 12 YRS AND ABOVE, IM ([employer]) 08/25/2023,01/07/2023 Covid-19, Mrna, Lnp-s, Pf, B ivalent, [...] encounter Miscellaneous Notes * Telephone Encounter - Jacklyn Duarte LPN - 08/27/2023 3:59 PM EDT Order submitted through [employer]. * Telephone Encounter - Jacklyn Duarte LPN - 08/27/2023 3:21 PM EDT Awaiting OV note to be signed. * Telephone Encounter - Aviva Rossi DO - 08/27/2023 2:21 PM EDT Order in. Please place through [employer]. * Telephone Encounter - Michelle Tim LPN - 08/27/2023 2:17 PM EDT Call placed to patient for more information. Pt states she is requesting a wheelchair to help with mobility. Very difficult for her to get in/out of house to w/c transport van. Did note that pain management ordered PT for pt. Pt states she has not yet started therapy. Please advise. * Telephone Encounter - Mary Sung OSA - 08/27/2023 12:22 PM EDT Pt calling to request a wheel chair. Please call her to discuss at [phone] documented in this encounter Plan of Treatment Upcoming Encounters Date Type Department Care Team (Latest Contact Info) Description 09/11/2023 12:30 PM EDT Home Visit [facility] 132 [facility] [address] [facility] [place] [address] Nubia Zamora RN 132 [facility] [address] 09/16/2023 9:40 AM EDT Office Visit Family Practice [address] [place] [address], [place] 293 [place] [address] Aviva Rossi DO 293 [facility] [place] [address] 09/16/2023 11:15 AM EDT Imaging Radiology [facility] [address] Floor, [place] [address] [place] [address] 10/01/2023 10:30 AM EDT Office Visit Cardiology, [facility] [address] [place] [address] Shaw Hickey, DO [address] [place] [address] 10/24/2023 10:55 AM EDT Hospital Encounter OR [facility], Operating Room [facility] [address] [place] [address] Jc Palafox, DO [address] [place] [address] 10/24/2023 10:55 AM EDT - 10/24/2023 11:20 AM EDT Surgery OR [facility], Operating Room [facility] [address] [place] [address] Jc Palafox, DO [address] [place] [address] INJECTION SPINE LUMBAR OR SACRAL 11/06/2023 9:00 AM EDT Home Visit [facility] [address] [place] [address] Ken Gonzalez PA-C [address] [place] [address] 11/11/2023 1:00 PM EDT Nurse Only Ancillary [address] [facility] 293 [facility], [place] [address] College, Nurse Annual Wellness Visit 65 [facility] [address] Scheduled Procedures Name Priority Associated Diagnoses Date/Ti [...] history exists TSH 06/16/2024 06/17/2023, 12/22, 11/14/2021 GFR 08/24/2024 08/25/2023, 05/23, 01/07/2023, Additional history [...] Thoracic or lumbosacral neuritis or radiculitis, unspecified Lumbar radiculopathy Thoracic or lumbosacral neuritis or [...] and were consensually agreed upon. Care Teams Awning Erector Relationship Specialty Start Date End Date Aviva Rossi DO [address] [place] [address] PCP - General Family Medicine 05/09/22 documented as of this encounter
--- OUTSIDE RECORDS SUMMARY | 2023-09-06 05:58 | External Medical Summary | Summary of Care ---
Author Name Unknown Organization [facility] Address [address] [place] [address] Phone [phone] Care Team Providers Care Courseware Developer Name Role Phone Aviva Rossi DO Primary Care Provider [phone] Reason for Visit * Reason Comments Medication Discussion Encounter Details Date Type Department Care Team (Late st Contact Info) Description 08/25/2023 10:20 AM EDT Pharmacy Family Practice 65 [facility] [address] [place] [address] College, Pharmacist [address] [address] Referred for management of medication therapy* Allergies Active Allergy Reactions Criticality Noted Date Comments Codeine 11/20/2012 Nausea and vomiting Lisinopril 06/12/2015 ?cough Penicillin G 11/20/2012 Hives Hydrocodone-Acetaminophen 11/20/2012 Nausea and vomiting documented as of this encounter (statuses as of 08/25/2023) Medications Medication Sig Dispensed Refills Start Date End Date Status Cyanocobalamin 1000 MCG Oral Tablet (Cyanocobalamin) Take 1 Tablet by mouth daily. 2 Active Vision Formula Eye Health Oral Capsule Take 1 Capsule by mouth daily. 3 Active Dexcom G6 Sensor Use as directed. Use as directed every 10 days to monitor blood sugars 3 Active Potassium Chloride ER 10 MEQ Oral Tablet Extended Release Take 1 Tablet by mouth in the morning. 3 Active Systane Complete PF 0.6 % Ophthalmic Solution (Propylene Glycol (PF)) Instill 1 Drop into eye as needed for Dry eyes. 3 Active Furosemide 40 MG Oral Tablet (Lasix) Take 1 Tablet by mouth in the morning. 3 Active Famotidine 20 MG Oral Tablet (Pepcid)Indications :Gastroesophageal reflux disease, unspecified whether esophagitis present TAKE ONE TABLET BY MOUTH EVERY MORNING 200 Tablet 3 3 10/22/19 24 Active Levothyroxine Sodium 50 MCG Oral Tablet (Levoxyl)Indication s:Acquired hypothyroidism TAKE 1 TABLET BY MOUTH DAILY AT LEAST 30 MINUTES PRIOR TO FIRST MEAL OF THE DAY OR OTHER MEDICATIONS 100 Tablet 3 3 10/22/19 24 Active Atorvastatin Calcium 20 MG Oral Tablet (Lipitor) TAKE ONE TABLET BY MOUTH DAILY 100 Tablet 3 3 10/22/19 24 Active Insulin Syringe-Needle U-100 30G X 5/16" 0.3 ML USE TO INJECT TWO TO THREE TIMES DAILY 300 Each 3 3 10/25/19 24 Active NovoLOG FlexPen 100 UNIT/ML Subcutaneous Solution Pen-injector (insulin aspart) INJECT WITH WITH EACH MEAL PER CARB RATIO 1:7 AND CORRECTION FACTOR 1:20>120 MAX DAILY DOSE 35 UNITS 30 mL 3 3 Active Additional Information Patient taking differently: INJECT [...] taking 25 units., Reported on 08/25/2023 Pen [place] 316" 31G X 5 MM Use daily to inject insulin 4 times daily 400 Each 1 3 Active Insulin Glargine Solostar 100 UNIT/ML Subcutaneous Solution Pen-injectorIndicat ions:Diabetes mellitus with peripheral vascular disease (HCC),Type 2 diabetes mellitus with hemoglobin A1c goal of less than 8.0% ([facility]) Titrate down per titration schedule as starting Xultophy. Pt reports she is currently taking 4 units. 3 Active FLUoxetine HCl 20 MG Oral [...] the morning. 90 Tablet 3 4 Active metoprolol succinate XL 12.5 MG OR TB24 Take 0.5 Tablets by mouth in the morning and 0.5 Tablets before bedtime. Active Magnesium Oxide 400 MG Oral Capsule Take 1 Capsule by mouth daily. Taking weekly 2 08/25/19 24 Discontinu ed(Patient preference /discontin uation) Apixaban 5 MG Oral Tablet (Eliquis) Take 1 Tablet by mouth in the morning and 1 Tablet before bedtime. 08/25/19 24 Discontinu ed(Refill) Losartan Potassium 100 MG Oral Tablet (Cozaar)Indications :Type 2 diabetes mellitus with hemoglobin A1c goal of less than 8.0% ([facility]),Hypertension goal BP (blood pressure) < 140/90 Take 0.5 Tablets by mouth in the morning. 08/25/19 24 Discontinu ed(Patient preference /discontin uation) Hospital, Clinic, or Other Facility Administered Medication Ordered Dose Route Frequency Start Date End Date Status Albuterol Sulfate (Proventil) (2.5 MG/3ML) 0.083% inhalation solution 2.5 mgIndications:Shortness of breath,History of asthma 2.5 mg NEBULIZER ONCE PRN 01/07/2023 01/07/2024 Active documented as of this encounter (statuses as of 08/25/2023) Active Problems Problem Noted Date Diagnosed Date [...] as of this encounter (statuses as of 08/25/2023) Resolved Problems Problem Noted Date Diagnosed Date [...] start lantus/novolog-refer MTM----, Psychiatrist. Sees Dr Sanders-Lawrence @[facility] [phone] Morbid obesity 12/26/2016 Overview: Per Obesity protocol #1 PMB (postmenopausal bleeding) 11/12/2013 Chronic cough 08/22/2023 Productive cough 08/22/2023 Overview: chronic Left knee injury 06/09/2023 Elevated WBC count 4 documented as of this encounter (statuses as of 08/25/2023) Immunizations Name Administration Dates Next Due COVID-19 mRNA, LNP-s, No Pre serve, 2-Dose Series ([employer]) 09/21/2020,05/22/2020 COVID-19, MRNA-LNP, 23-24, P F, 30 MCG/0.3 mL, 12 YRS AND ABOVE, IM ([employer]-Comirnaty) 08/25/2023,01/07/2023 Covid-19, Mrna, Lnp-s, Pf, B ivalent, [...] as of this encounter Progress Notes * Bryanna Walden, [facility] - 08/25/2023 8:08 AM EDT Medication Therapy Disease [facility] - Medication Reconciliation Lisa Gamboa is an 68 year old being seen for medication reconciliation. CMR completed today in Medication Management encounter (08/25/23). Prescription insurance information: [employer] Do you have any other prescription coverage: No Preferred pharmacy: [facility] ([facility]) [x] Problem list reviewed [x] Allergies reviewed and updated if needed [x] Drug interaction check completed [x] HEDIS list addressed Immunizations: eligible for covid booster and RSV vaccine Date of Hospital Admission/Primary Diagnosis: 08/13/23 for new onset afib with RVR likely ischemia secondary to tachycardia. Started metoprolol XL 12.5 mg BID and Eliquis. Also UTI with UC positive for klebsiella. Started on Rocephin. Acute CHF exacerbation- HFpEF. Received IV lasix for edema. Date of Discharge from Hospital: 08/15/23 Medication changes during admission/on discharge: Added: Started metoprolol XL 12.5 mg BID and Eliquis 5 mg BID for new afib. Cefuroxime axetil 250 mg BID x 3 days Modified: none Discontinued: none Does the patient currently have all of their medications in their home?: Yes Medication Organization/Adherence: Has home care nurse or caregiver: no Patient uses a pill box? Yes, refill(s) completed by self When you are at home, how often do you miss doses of medications? Less than once a week Reports specifically missing last dose of antibiotic due to losing pill How difficult is it for you to pay for your medications? Not difficult at all How often do you experience side effects from your medications? Daily Reports specifically bradycardia due to metoprolol XL Ranging 55-66 Reports hypotension Highest SBP: 126 Lowest SBP: 96 Lightheaded Labs/Vitals/Risk Scores: The 10-year ASCVD risk score (Vianney NATHAN, et al., 2019) is: 25% Values used to calculate the score: Age: 68 years Sex: Female Is Non- : No Diabetic: Yes Tobacco smoker: No Systolic Blood Pressure: 138 mmHg Is BP treated: Yes HDL Cholesterol: 58 mg/dL Total Cholesterol: 173 mg/dL BP Readings from Last 3 Encounters: 06/17/23 138/80 03/11/23 136/78 01/07/23 136/80 Recent Labs Units 06/17/23 0952 01/07/23 1237 08/06/22 1624 [facility] 6.1* 6.5* 6.8* Recent Labs Units 06/17/23 0952 01/07/23 1237 09/25/22 0927 ESTIMATED GLOMERULAR FILTRATION RATE - [facility] mL/min 71 58* 67 Serum creatinine: 0.9 mg/dL 06/17/23 0952 Estimated creatinine clearance: 74.7 mL/min Assessment & Plan: Medication discrepancies identified: Outside medications pulling into EHR include magnesium, metformin, potassium, Adderall, cefuroxime,folic acid. Confirmed pt not taking these. Duplicate Therapy: Lantus and Xultophy. Notes taking Novolog with 1:8-10 CR and 1:15>120. - Denies hypoglycemia s/s. Treats appropriately. Denies MTM f/u. States what she is doing is working and her CGM alerts her before her BS goes too low. Also notes ran out of sensors ~ 5 days ago. Notes taking lasix twice daily ~every other day due to swelling. Notes not taking losartan past few days due to low BP and lightheadedness. Dose/frequency of medications appropriate for current renal function? yes Other medication problems identified: Not adherent to medications. Concern for risk of hypoglycemia. Patient education provided: educated pt on importance of taking medications as prescribed. Educatedpt on titration chart from lantus to Xultophy. Pt admits to overstock of Lantus and would like to continue both until completely out. Educated pt on risk of hypoglycemia with changing Novolog SS. Educated pt on BB and Eliquis role in afib Referral pended for follow up management of: N/A Summary- Changes & Recommendations: Medication reconciliation completed with patient. Updated medication list. Recommended MTM f/u for DM management to prevent hypoglycemia seen on Dexcom. Pt denied. Provided pt 10-day supply of DexcomG7 sensors and informed to reach out if she does not receive sensors from [facility] to then apply to adifferent supplier. Pt agreeable. Discussed lightheadedness and reported bradycardia and hypotension with PCP. PCP reduced losartan to 25 mg once daily. Repeat med rec visit scheduled in 1 year Bryanna Walden RP Clinical Pharmacist - Family Protection Specialist Medication Therapy Management Clinic 08/25/2023, 8:10 AM documented in this encounter Plan of Treatment Upcoming Encounters Date Type Department Care Team (Latest Contact Info) Description 09/16/2023 9:40 AM EDT Office Visit Family Practice 65 [facility] 293 [facility], [place] [address] Aviva Rossi, DO 293 [facility], [place] [address] 09/16/2023 11:15 AM EDT Imaging Radiology [address] [place] [address] 10/01/2023 10:30 AM EDT Office Visit Cardiology, [facility] [address] [place] [address] Shaw Hickey, DO [address] [place] [address] 10/24/2023 10:55 AM EDT Hospital Encounter OR [facility], Operating Room [facility] [address] [place] [address] Jc Palafox, [address] [place] [phone] 10/24/2023 10:55 AM EDT - 10/24/2023 11:20 AM EDT Surgery OR [facility], Operating Room [facility] [address] [place] [address] Jc Palafox, [address] [place] [phone] INJECTION SPINE LUMBAR OR SACRAL 11/11/2023 1:00 PM EDT Nurse Only Ancillary 65 [facility] [address] College, Nurse Annual Wellness Visit [address] [place] [facility], [place] [address] Scheduled Procedures Name Priority Associated Diagnoses Date/Ti [...] as of this encounter Visit Diagnoses Diagnosis Referred for management of medication therapy- Primary Encounter for long-term (current) use of other medications Lumbar radiculopathy Thoracic or lumbosacral neuritis or [...] and were consensually agreed upon. Care Teams Courseware Developer Relationship Specialty Start Date End Date Aviva Rossi DO [address] [place] [address] PCP - General Family Medicine 05/09/22 documented as of this encounter
--- OUTSIDE RECORDS SUMMARY | 2023-09-06 05:58 | External Medical Summary | Summary of Care ---
Author Name Unknown Organization [facility] Address [address] [place] [address] Phone [phone] Care Team Providers Care Advertising Vice President Name Role Phone Aviva Rossi DO Primary Care Provider [phone] Reason for Referral * Evaluate & Treat - Unlimited Visits (Within 3 days (urgent)) - Authorized Specialty Diagnoses / Procedures Referred By Angel amaya Referred To Contact Program Director/Air Personality Diagnoses New onset atrial fibrillation (HCC) Aviva Rossi DO [address] [place] [address] Referral ID Status Reason Start Date Expiration Date Visits Requested Visits Authorized [id number] Authorized Specialty Services Required 08/27/2023 1 1 Question Answer Referral Priority Within 3 days (urgent) Where should this appointment be scheduled? [facility] Program Type Case Management Complex Case Management [facility] Health Device(s) Requested Scale Alarm Settings Standard per protocol Comments Primary Program Director/Air Personality: Radha Doyle (Gott) at Home patient: No Is the patient already enrolled with another [facility] device/service? (If no, will need to "push the button") No Does the patient have a physical address? (If no, provide physical address if requesting device) Yes Requested Devices/IVR: Requested Device(s): Scale Please specify if patient needs tray or patient is over 300 lbs: Yes Does the patient need a tray? (Used is patient does not have hard surface for scale) No Heart Failure IVR (Interactive Voice Response) Frequency (Default: Weekly-M/W/F OR N/A) Time: Device triggered (default) OR Specific Time: Noon Reason for Visit * Reason Onset Date Comments Advice 08/27/2023 Encounter Details Date Type Department Care Team (Ashwini paul Contact Info) Description 08/27/2023 Telephone Family Practice [address] [place] [address] [place] [id number] Aviva Rossi DO [address] [place] [address] Advice Allergies Active Allergy Reactions Criticality Noted Date [...] MOUTH DAILY 100 Tablet 3 08/06/2022 10/22/19 Active Insulin Syringe-Needle U-100 30G X 5/16" [...] taking 25 units., Reported on 08/25/2023 Pen [place] 3/16" 31G X 5 MM Use daily [...] (Eliquis)Indication s:Hospital discharge follow-up,Atrial fibrillation with RVR ([facility]) Take 1 Tablet by mouth in the [...] 07/05 start lantus/novolog-refer MTM----, Psychiatrist. Sees Dr Witt @[facility] [phone] Morbid obesity 12/26/2016 Overview: Per Obesity protocol #1 PMB (postmenopausal bleeding) 11/12/2013 Chronic cough 08/22/2023 Productive cough 08/22/2023 Overview: chronic Left knee injury 06/09/2023 Elevated WBC count documented as of this encounter (statuses as of 08/27/2023) Immunizations Name Administration Dates Next Due COVID-19 mRNA, LNP-s, No Pre serve, 2-Dose Series ([employer]) 09/21/2020,05/22/2020 COVID-19, MRNA-LNP, 23-24, P F, 30 MCG/0.3 mL, 12 YRS AND ABOVE, IM ([employer]-Comirnaty) 08/25/2023,01/07/2023 Covid-19, Mrna, Lnp-s, Pf, B ivalent, [...] Miscellaneous Notes * Telephone Encounter - Radha Keller RN - 08/27/2023 3:59 PM EDT Order placed for [facility] scale and I put in a request for [facility] to try again to get her enrolled. Thanks! * Telephone Encounter - Aviva Rossi DO - 08/27/2023 3:28 PM EDT Windy, please assist with getting pt set up for [facility]. She was agreeable after we discussed at her visit. Would like her to have blue tooth scale as well to assist with fluid control. documented in this encounter Plan of Treatment Upcoming Encounters Date Type Department Care Team (Latest Contact Info) Description 09/11/2023 12:30 PM EDT Home Visit [facility] [address] [place] [address] Nubia Zamora RN [address] [place] [address] 09/16/2023 9:40 AM EDT Office Visit Family Practice 65 [facility] 293 [facility], [place] [address] Aviva Rossi, DO 293 [facility], [place] [address] 09/16/2023 11:15 AM EDT Imaging Radiology [address] [place] [address] 10/01/2023 10:30 AM EDT Office Visit Cardiology, [facility] [address] [place] [address] Shaw Hickey, DO [address] [place] [address] 10/24/2023 10:55 AM EDT Hospital Encounter OR [facility], Operating Room [facility] [address] [place] [phone] Jc Palafox, DO [address] [place] [address] 10/24/2023 10:55 AM EDT - 10/24/2023 11:20 AM EDT Surgery OR [facility], Operating Room [facility] [address] [place] [phone] Jc Palafox, DO [address] [place] [phone] INJECTION SPINE LUMBAR OR SACRAL 11/06/2023 9:00 AM EDT [facility] Visit [facility], [facility] [address] [place] [address] Ken Gonzalez PA-C [address] [place] [address] 11/11/2023 1:00 PM EDT Nurse Only Ancillary 65 [facility] [address] [facility], Nurse Annual Wellness Visit [address] [facility] [address] Scheduled Procedures Name Priority Associated Diagnoses Date/Ti me INJECTION SPINE LUMBAR OR SACRAL Lumbar radiculopathy 10/24/2023 10:55 AM EDT COLONOSCOPY FLEXIBLE PROXIMAL DIAGNOSTIC Recall History of colonic polyps Scheduled Referrals Name Type Priority Associated Diagnoses Orde r Schedule REMOTE PATIENT MONITORING REFERRAL Referral Within 3 days (urgent) New onset atrial fibrillation (HCC) Ordered: 08/27/2023 Health Maintenance Due Date Last Done Comments [...] as of this encounter Visit Diagnoses Diagnosis New onset atrial fibrillation (HCC)- Primary Atrial fibrillation Lumbar radiculopathy Thoracic or lumbosacral neuritis or [...] and were consensually agreed upon. Care Teams Advertising Vice President Relationship Specialty Start Date End Date Aviva Rossi DO [address] [place] [address] PCP - General Family Medicine 05/09/22 documented as of this encounter
--- OUTSIDE RECORDS SUMMARY | 2023-09-06 05:58 | External Medical Summary | Summary of Care ---
Author Name Unknown Organization [facility] Address [address] [place] [address] Phone [phone] Care Team Providers Care Table Tender Sludge Name Role Phone Aviva Rossi DO Primary Care Provider Reason for Visit * Reason Onset Date Comments Appointment 08/27/2023 Encounter Details Date Type Department Care Team (Late st Contact Info) Description 08/27/2023 Telephone [facility], [place] [address] [place] [phone] Services, Scheduling [address] [place] [address] Appointment (//) Allergies Active Allergy Reactions Criticality Noted Date [...] taking 25 units., Reported on 08/25/2023 Pen [place] 316" 31G X 5 MM Use daily to inject insulin 4 times daily 400 Each 1 11/27/2022 Active Insulin Glargine Solostar 100 UNIT/ML Subcutaneous Solution Pen-injectorIndicat ions:Diabetes mellitus with peripheral vascular disease (HCC),Type 2 diabetes mellitus with hemoglobin A1c goal of less than 8.0% ([facility]) Titrate down per titration schedule [...] (Eliquis)Indication s:Hospital discharge follow-up,Atrial fibrillation with RVR ([facility]) Take 1 Tablet by mouth [...] MTM----, Psychiatrist. Sees Dr Sanders-Lawrence @[facility] [phone] Morbid obesity 12/26/2016 Overview: Per Obesity protocol #1 PMB (postmenopausal bleeding) 11/12/2013 Chronic cough 08/22/2023 Productive cough 08/22/2023 Overview: chronic Left knee injury 06/09/2023 Elevated WBC count 4 documented as of this encounter (statuses as of 08/27/2023) Immunizations Name Administration Dates Next Due COVID-19 mRNA, LNP-s, No Pre serve, 2-Dose Series ([employer]) 09/21/2020,05/22/2020 COVID-19, MRNA-LNP, 23-24, P F, 30 MCG/0.3 mL, 12 YRS AND ABOVE, IM ([employer]-Comirnaty) 08/25/2023,01/07/2023 Covid-19, Mrna, Lnp-s, Pf, B ivalent, [...] encounter Miscellaneous Notes * Telephone Encounter - Tommie Sanchez OSA - 08/27/2023 3:59 PM EDT [facility] Engagement Attempt Engagement: Engagement Attempt 1: Contacted - Agreed to home-based services Scheduled appointment information: No data was found Home Information: No data was found Advance Care Planning (ACP): No data was found Has Living Will or Advance Directive: No data was found Anticipated Sub-Program: Primary Care at Home Confirmation of Sub-Program Type (by care steamship agent): No data was found Handoff Information: Current care team notified via: No data was found Current telemonitoring equipment: No data was found documented in this encounter Plan of Treatment Upcoming Encounters Date Type Department Care Team (Latest Contact Info) Description 09/11/2023 12:30 PM EDT Home Visit [facility], [facility] [address] [place] [address] Nubia Zamora, RN [address] [place] [address] 09/16/2023 9:40 AM EDT Office Visit Family Practice [address] [place] [address] [place] [address] Aviva Rossi, DO 293 [facility], [place] [address] 09/16/2023 11:15 AM EDT Imaging Radiology [address] [place] [address] 10/01/2023 10:30 AM EDT Office Visit Cardiology, [facility] [address] [place] [address] Shaw Hickey, DO [address] [place] [address] 10/24/2023 10:55 AM EDT Hospital Encounter OR [facility], Operating Room [facility] [address] [place] [address] Jc Palafox, DO [address] [place] [address] 10/24/2023 10:55 AM EDT - 10/24/2023 11:20 AM EDT Surgery OR [facility], Operating Room [facility] [address] [place] [address] Jc Palafox, DO [address] [place] [address] INJECTION SPINE LUMBAR OR SACRAL 11/06/2023 9:00 AM EDT Home Visit [facility], [place] [address] [place] [address] Ken Gonzalez PA-C [address] [place] [address] 11/11/2023 1:00 PM EDT Nurse Only Ancillary 65 [facility], [place] [address] [place] [address] College, Nurse Annual Wellness Visit [address] [facility] [address] [place] [address] Scheduled Procedures Name Priority Associated Diagnoses Date/Ti [...] and were consensually agreed upon. Care Teams Table Tender Sludge Relationship Specialty Start Date End Date Aviva Rossi DO [address] [place] [place] [address] PCP - General Family Medicine 05/09/22 documented as of this encounter
--- OUTSIDE RECORDS SUMMARY | 2023-09-06 05:58 | External Medical Summary | Summary of Care ---
Author Name Unknown Organization [facility] Address [address] [place] [address] Phone [phone] Care Team Providers Care 4Th Grade Teacher Name Role Phone Aviva Rossi DO Primary Care Provider Reason for Referral * Evaluate & Treat - Unlimited Visits (Within 3 days (urgent)) - Authorized Specialty Diagnoses / Procedures Referred By Angel amaya Referred To Contact Showroom Sales Assistant Diagnoses New onset atrial fibrillation (HCC) Aviva Rossi DO [address] [place] [address] Referral ID Status Reason Start Date Expiration Date Visits Requested Visits Authorized [id number] Authorized Specialty Services Required 08/27/2023 1 1 Question Answer Referral Priority Within 3 days (urgent) Where should this appointment be scheduled? [facility] Program Type Case Management Complex Case Management [facility] Health Device(s) Requested Scale Alarm Settings Standard per protocol Comments Primary Showroom Sales Assistant: Radha Doyle (Gott) at Home patient: No Is the patient already enrolled with another [facility] device/service? (If no, will need to "push [...] Description 08/27/2023 Telephone Family Practice [address] [place] [address] [place] [phone] Aviva Rossi DO [address] [place] [address] Advice Allergies Active Allergy Reactions Criticality Noted [...] taking 25 units., Reported on 08/25/2023 Pen [place] 3/16" 31G X 5 MM Use daily [...] (Eliquis)Indication s:Hospital discharge follow-up,Atrial fibrillation with RVR ([facility]) Take 1 Tablet by mouth in the [...] start lantus/novolog-refer MTM----, Psychiatrist. Sees Dr Witt @[facility] [phone] Morbid obesity 12/26/2016 Overview: Per Obesity protocol #1 PMB (postmenopausal bleeding) 11/12/2013 Chronic cough 08/22/2023 Productive cough 08/22/2023 Overview: chronic Left knee injury 06/09/2023 Elevated WBC count documented as of this encounter (statuses as of 08/27/2023) Immunizations Name Administration Dates Next Due COVID-19 mRNA, LNP-s, No Pre serve, 2-Dose Series ([employer]) 09/21/2020,05/22/2020 COVID-19, MRNA-LNP, 23-24, P F, 30 MCG/0.3 mL, 12 YRS AND ABOVE, IM ([facility]) 08/25/2023,01/07/2023 Covid-19, Mrna, Lnp-s, Pf, B ivalent, [...] Description 09/11/2023 12:30 PM EDT Home Visit [facility] [address] [place] [address] Nubia Zamora RN [address] [place] [address] 09/16/2023 9:40 AM EDT Office Visit Family Practice 65 [facility] 293 [facility] [place], [place] [address] Aviva Rossi, DO 293 [facility], [place] [address] 09/16/2023 11:15 AM EDT Imaging Radiology [address] [place] [address] 10/01/2023 10:30 AM EDT Office Visit Cardiology, [facility] [address] [place] [address] Shaw Hickey, DO [address] [place] [address] 10/24/2023 10:55 AM EDT Hospital Encounter OR [facility], Operating Room [facility] [address] [place] [phone] Jc Palafox, DO [address] [place] [address] 10/24/2023 10:55 AM EDT - 10/24/2023 11:20 AM EDT Surgery OR [facility], Operating Room [facility] [address] [place] [phone] Jc Palafox, DO [address] [place] [phone] INJECTION SPINE LUMBAR OR [facility] 11/06/2023 9:00 AM EDT Home Visit [facility], [facility] [address] [place] [address] Ken Gonzalez PA-C [address] [place] [address] 11/11/2023 1:00 PM EDT Nurse Only Ancillary 65 [facility] 293 [facility] [place] [address] College, Nurse Annual Wellness [facility] [address] [facility] [address] [facility] [address] Scheduled Procedures Name Priority Associated Diagnoses Date/Ti [...] and were consensually agreed upon. Care Teams 4Th Grade Teacher Relationship Specialty Start Date End Date Aviva Rossi DO [address] [place] [id number] PCP - General Family Medicine 05/09/22 documented as of this encounter
--- OUTSIDE RECORDS SUMMARY | 2023-09-06 05:58 | External Medical Summary | Summary of Care ---
Author Name Unknown Organization [facility] Address [address] [place] [address] Phone [phone] Care Team Providers Care Operators Teacher Name Role Phone Aviva Rossi DO Primary Care Provider Encounter Details Date Type Department Care Team (Latest Contact Info) Description 08/25/2023 Medication Management [facility] [address] [place], [place] [phone] [facility] [address] [place] [address] Referred for management of medication therapy* Allergies [...] taking 25 units., Reported on 08/25/2023 Pen [place] 3" 31G X 5 MM Use daily to inject insulin 4 times daily 400 Each 1 11/27/2022 Active Insulin Glargine Solostar 100 UNIT/ML Subcutaneous Solution Pen-injectorIndicat ions:Diabetes mellitus with peripheral vascular disease (HCC),Type 2 diabetes mellitus with hemoglobin A1c goal of less than 8.0% ([facility]) Titrate down per titration schedule [...] (Eliquis)Indication s:Hospital discharge follow-up,Atrial fibrillation with RVR ([facility]) Take 1 Tablet by mouth in [...] lantus/novolog-refer MTM----, Psychiatrist. Sees Dr Sanders-Lawrence @[place] [facility] [phone] Morbid obesity 12/26/2016 Overview: Per Obesity protocol #1 PMB (postmenopausal bleeding) 11/12/2013 Chronic cough 08/22/2023 Productive cough 08/22/2023 Overview: chronic Left knee injury 06/09/2023 Elevated WBC count 4 documented as of this encounter (statuses as of 08/25/2023) Immunizations Name Administration Dates Next Due COVID-19 mRNA, LNP-s, No Pre serve, 2-Dose Series ([employer]) 09/21/2020,05/22/2020 COVID-19, MRNA-LNP, 23-24, P F, 30 MCG/0.3 mL, 12 YRS AND ABOVE, IM ([facility] 08/25/2023,01/07/2023 Covid-19, Mrna, Lnp-s, Pf, B ivalent, [...] this encounter Progress Notes * Bryanna Walden, [facility] - 08/25/2023 10:09 PM EDT Lisa Gamboa is a 68 year old female. Objective: Review of patient's allergies indicates: Allergen Reactions Codeine Nausea and vomiting Lisinopril ?cough Penicillin G Hives Vicodin [Hydrocodone-Acetaminophen] Nausea and vomiting Current Outpatient Medications - WARNING: List may be incomplete due to filtering Medication Sig Dispense Refill Apixaban 5 MG Oral Tablet (Eliquis) Take 1 Tablet by mouth in the morning and 1 Tablet before bedtime. 60 Tablet 1 Cephalexin 500 MG Oral Capsule Take 1 Capsule by mouth in the morning and 1 Capsule before bedtime.Do all this for 10 days. 20 Capsule 0 Losartan Potassium 25 MG Oral Tablet (Cozaar) Take 1 Tablet by mouth in the morning. 30 Tablet 1 metoprolol succinate XL 12.5 MG OR TB24 Take 0.5 Tablets by mouth in the morning and 0.5 Tablets before bedtime. Myrbetriq 50 MG Oral Tablet Extended Release 24 Hour (Mirabegron ER) Take 1 Tablet by mouth in the morning. 90 Tablet 3 buPROPion HCl ER (SR) 100 MG Oral Tablet Extended Release 12 Hour (Wellbutrin SR) Take 1 Tablet by mouth in the morning. 100 Tablet 3 buPROPion HCl ER (SR) 150 MG Oral Tablet Extended Release 12 Hour (Wellbutrin SR) Take 1 Tablet by mouth daily. 100 Tablet 3 ProAir HFA 108 (90 Base) MCG/ACT Inhalation Aerosol Solution Inhale 2 Puffs by mouth 4 times a day as needed for Dyspnea. 54 g 1 FLUoxetine HCl 20 MG Oral Capsule (PROzac) Take 1 Capsule by mouth in the morning. 100 Capsule 3 FLUoxetine HCl 40 MG Oral Capsule (PROzac) Take 1 Capsule by mouth in the morning. 100 Capsule 3 Insulin Glargine Solostar 100 UNIT/ML Subcutaneous Solution Pen-injector Titrate down per titrationschedule as starting Xultophy. Pt reports she is currently taking 4 units. Xultophy 100-3.6 UNIT-MG/ML Subcutaneous Solution Pen-injector (Insulin Degludec-Liraglutide) Inject up to 50 units daily subcutaneously as directed per titration schedule (Patient taking differently: Inject up to 50 units daily subcutaneously as directed per titration schedule. Pt reports she is currently only taking 25 units.) 45 mL 3 NovoLOG FlexPen 100 UNIT/ML Subcutaneous Solution Pen-injector (insulin aspart) INJECT WITH WITH EACH MEAL PER CARB RATIO 1:7 AND CORRECTION FACTOR 1:20>120 MAX DAILY DOSE 35 UNITS (Patient takingdifferently: INJECT WITH WITH EACH MEAL PER CARB RATIO 1:10 AND CORRECTION FACTOR 1:15>120 MAX DAILY DOSE 35 UNITS) 30 mL 3 Famotidine 20 MG Oral Tablet (Pepcid) TAKE ONE TABLET BY MOUTH EVERY MORNING 200 Tablet 3 Furosemide 40 MG Oral Tablet (Lasix) Take 1 Tablet by mouth in the morning. Potassium Chloride ER 10 MEQ Oral Tablet Extended Release Take 1 Tablet by mouth in the morning. Systane Complete PF 0.6 % Ophthalmic Solution (Propylene Glycol (PF)) Instill 1 Drop into eye as needed for Dry eyes. Atorvastatin Calcium 20 MG Oral Tablet (Lipitor) TAKE ONE TABLET BY MOUTH DAILY 100 Tablet 3 Levothyroxine Sodium 50 MCG Oral Tablet (Levoxyl) TAKE 1 TABLET BY MOUTH DAILY AT LEAST 30 MINUTES PRIOR TO FIRST MEAL OF THE DAY OR OTHER MEDICATIONS 100 Tablet 3 Cyanocobalamin 1000 MCG Oral Tablet (Cyanocobalamin) Take 1 Tablet by mouth daily. Vision Formula Eye Health Oral Capsule Take 1 Capsule by mouth daily. Pen [place] 3/16" 31G X 5 MM Use daily to inject insulin 4 times daily 400 Each 1 Insulin Syringe-Needle U-100 30G X 5/16" 0.3 ML USE TO INJECT TWO TO THREE TIMES DAILY 300 Each 3 Dexcom G6 Sensor Use as directed. Use as directed every 10 days to monitor blood sugars Immunization History Administered Date(s) Administered COVID-19 mRNA, LNP-s, No Preserve, 2-Dose Series ([employer]) 05/22/2020, 09/21/2020 COVID-19, MRNA-LNP, 23-24, PF, 30 MCG/0.3 mL, 12 YRS AND ABOVE, IM ([facility]) 01/07/2023, 08/25/2023 Covid-19, Mrna, Lnp-s, Pf, Bivalent, 30 Mcg, IM, 12 yrs and above ([employer]) 05/09/2022 Pneumococcal Conjugate Vaccine, 20-valent ([id number]) 05/09/2022 Pneumococcal Polysaccharide PPV23 (Pneumovax) 07/09/2013 RSV Vac., Bivalent, Perfusion F, Pf,0.5 Ml (Abrysvo) 03/11/2023 Seasonal Influenza, Quadrivalent Hd (Fluzone Hd) 05/09/2022, 01/07/2023 Seasonal Influenza, Quadrivalent, No Preserve, IM 01/18/2015, 03/23/2018 Seasonal Influenza, Split, IIV3, With Preserve, Inj 12/17/2012, 02/02/2014 TDAP (age 10 and older)(Boostrix) 12/17/2012, 01/07/2023 Varicella Zoster Vaccine (Adult) 01/18/2015 Zoster Vaccine Recombinant (Shingrix) 05/09/2022, 09/03/2022 TMR Interventions Incomplete Encounter MTPs No medication therapy recommendations to display Complete Encounter MTPs Referred for management of medication therapy Current Medication: Insulin Glargine Solostar 100 UNIT/ML Subcutaneous Solution Pen-injector Rationale: Patient Education - Needs Education - Safety Status: Declined per Patient Note: Pt currently taking Lantus 4 units daily and Xultophy 25 units daily. Used to work with MTM to transition from Lantus to Xultophy but pt refused to follow titration chart. Educated pt that Xultophy contains a long acting insulin and Lantus is long acting insulin. Recommend pt continue titration off Lantus but pt would like to continue both for now. Recommended MTM f/u for DM management. Pt denied. Discussed with PCP. PCP to follow up. Current Medication: NovoLOG FlexPen 100 UNIT/ML Subcutaneous Solution Pen- injector (insulin aspart) Rationale: Patient Education - Needs Education - Safety Recommendation: Provide Education Status: Declined per Patient Note: Notes taking Novolog with varing CR of 1:8-10 and SS of 1:15>120. Dexcom shows few hypoglycemia events. Pt denies hypoglycemia s/s. Treats hypoglycemia appropriately. States what she is doing is working and her CGM alerts her before her BS goes too low. Educated pt on risk of hypoglycemia with changing Novolog SS. Also notes ran out of sensors ~ 5 days ago. Recommended MTM f/u for DM penny selvinpaddy to prevent hypoglycemia. Pt denied. Provided pt 10-day supply of Dexcom G7 sensors and informed to reach out if she does not receive sensors from [facility] to then apply to a different supplier. Pt agreeable. Rationale: Undesirable effect - Adverse medication event - Safety Recommendation: Change Medication Status: Accepted per Provider Note: Pt recently started metoprolol 12.5 mg BID for new onset afib. Reports low BP and lightheadedness past few days. Also reports HR ranging from 55-66 and hypotension with highest SBP 126 and lowest SBP 96. Also takes losartan 50 mg daily and lasix twice 40 mg daily (taking lasix BID every otherday due to swelling). Notes stopped taking losartan past few days due to low BP and lightheadedness. Discussed lightheadedness and reported bradycardia and hypotension with PCP. PCP reduced losartan to 25 mg once daily. Assessment & Plan Indication, effectiveness, safety and convenience of her medications were reviewed today. The patient's medical conditions were assessed, evaluated, and deemed meeting goals of drug therapy, with thefollowing exceptions. Additional Notes: Educated pt on importance of adherence to medications and the risks associated with self adjusting.Discussed nonadherence to DM and BP regimen with PCP. Recommended MTM DM f/u. Pt denied. Educated pt on role of new medications, BB and Eliquis, in afib Discussed new symptoms of lightheadedness, bradycardia, and hypotension with PCP. PCP reduced losartan to 25 mg daily. Summary Time Spent: 46 - 60 min Supervising pharmacist who provided the service: Franco Lorenzana Information Who was the recipient of the CMR service: beneficiary Language Template for the Patient Takeaway: Thai I attest that I have reviewed and updated the patient's conditions, allergies, and medications to the best of my ability. Patient provided medication list gathered by: Franco Lorenzana RPh 08/25/2023, 10:09 PM documented in this encounter Miscellaneous Notes * MTM Personal Medication List - Bryanna Walden RPh - 08/25/2023 9:59 PM EDT Medication How I take it Why I use it Prescriber Apixaban 5 MG Oral Tablet (Eliquis) Take 1 Tablet by mouth in the morning and 1 Tablet before bedtime. Atrial fibrillation/prevention of blood clots Aviva Rossi DO Atorvastatin Calcium 20 MG Oral Tablet (Lipitor) TAKE ONE TABLET BY MOUTH DAILY High Cholesterol Aviva Rossi DO buPROPion HCl ER (SR) 100 MG Oral Tablet Extended Release 12 Hour (Wellbutrin SR) Take 1 Tablet by mouth in the morning. Major depressive disorder Aviva Rossi DO buPROPion HCl ER (SR) 150 MG Oral Tablet Extended Release 12 Hour (Wellbutrin SR) Take 1 Tablet by mouth daily. Major depressive disorder Aviva Rossi DO Cephalexin 500 MG Oral Capsule Take 1 Capsule by mouth in the morning and 1 Capsule before bedtime.Do all this for 10 days. Painful urination Aviva Rossi DO Cyanocobalamin 1000 MCG Oral Tablet (Cyanocobalamin) Take 1 Tablet by mouth daily. General health Self Famotidine 20 MG Oral Tablet (Pepcid) TAKE ONE TABLET BY MOUTH EVERY MORNING GERD Aviva Rossi DO FLUoxetine HCl 20 MG Oral Capsule (PROzac) Take 1 Capsule by mouth in the morning. Major depressivedisorder Aviva Rossi DO FLUoxetine HCl 40 MG Oral Capsule (PROzac) Take 1 Capsule by mouth in the morning. Major depressivedisorder Aviva Rossi DO Furosemide 40 MG Oral Tablet (Lasix) Take 1 Tablet by mouth in the morning. Swelling Aviva Rossi DO Insulin Glargine Solostar 100 UNIT/ML Subcutaneous Solution Pen-injector Inject 4 units under the skin once daily. Titrate down per titration schedule as starting Xultophy. Diabetes Aviva Rossi DO Levothyroxine Sodium 50 MCG Oral Tablet (Levoxyl) TAKE 1 TABLET BY MOUTH DAILY AT LEAST 30 MINUTES PRIOR TO FIRST MEAL OF THE DAY OR OTHER MEDICATIONS Hypothyroidism Aviva Rossi DO Losartan Potassium 25 MG Oral Tablet (Cozaar) Take 1 Tablet by mouth in the morning. High blood pressure Aviva Rossi DO metoprolol succinate XL 12.5 MG OR TB24 Take 0.5 Tablets by mouth in the morning and 0.5 Tablets before bedtime. Atrial fibrillation Aviva Rossi DO Myrbetriq 50 MG Oral Tablet Extended Release 24 Hour (Mirabegron ER) Take 1 Tablet by mouth in the morning. Bladder Aviva Rossi DO NovoLOG FlexPen 100 UNIT/ML Subcutaneous Solution Pen-injector (insulin aspart) INJECT WITH WITH EACH MEAL PER CARB RATIO 1:7 AND CORRECTION FACTOR 1:20>120 MAX DAILY DOSE 35 UNITS Diabetes Aviva Rossi DO Potassium Chloride ER 10 MEQ Oral Tablet Extended Release Take 1 Tablet by mouth in the morning. Supplementation Aviva Rossi DO ProAir HFA 108 (90 Base) MCG/ACT Inhalation Aerosol Solution Inhale 2 Puffs by mouth 4 times a day as needed for shortness of breath. Shortness of breath; asthma Aviva Rossi DO Systane Complete PF 0.6 % Ophthalmic Solution (Propylene Glycol (PF)) Instill 1 Drop into eye as needed for Dry eyes. Dry Eyes Self Vision Formula Eye Health Oral Capsule Take 1 Capsule by mouth daily. Eyes Self Xultophy 100-3.6 UNIT-MG/ML Subcutaneous Solution Pen-injector (Insulin Degludec-Liraglutide) Inject 25 units under the skin once daily. Follow titration schedule as directed up to 50 units daily. Diabetes Aviva Rossi, * [facility] To-Do-List - Bryanna Walden RPh - 08/25/2023 9:29 PM EDT Images from the original note were not included. What we talked about: What I should do: The importance of taking your medication as prescribed Your medicine works best when taken as prescribed. It can be hard to remember to take daily medications. Consider making it a part of your daily routine. Pair taking your medication with something you do every day, like brushing your teeth or eating a meal. Consider setting daily alarms to help remind yourself when it is time to take your medicine. Using a pill box can also help you organize your medicines. Pill boxes allow you to fill each day slot with your daily medicine and help you track when your next dose is due. What we talked about: What I should do: Diabetes management To prevent low blood sugar, it is important to take your medication as prescribed. Follow ups with the pharmacist at [facility] to adjust insulin therapy will help to minimize risk of low blood sugar. Please call [facility] office if hypoglycemia continues. What we talked about: What I should do: Blood pressure It is also important to monitor your blood pressure regularly. Make sure to record your readings in a log and take them with you to your appointments. Providing these readings to your healthcare providers can help them better control your blood pressure. Reporting any symptoms of lowblood pressure such as lightheadedness and dizziness is also important. What we talked about: What I should do: Dexcom G7 Please contact [email or web address] again to determine estimated shipment arrival. If cannot get in touch with [email or web address] or you do not receive sensors prior to completely running out, please reach out to [facility] pharmacist at [facility] to aid in ordering sensors from another supplier. What we talked about: What I should do: Vaccines Your chart shows that you are due for routine vaccinations including: Covid booster and RSV. Please talk to your doctor about getting these vaccines at your next appointment or bring in record of vaccine history to update your file. documented in this encounter Plan of Treatment Upcoming Encounters Date Type Department Care Team (Latest Contact Info) Description 09/16/2023 9:40 AM EDT Office Visit Family Practice 65 [facility] [address] [place] [address] Aviva Rossi, DO 293 [place] [address] 09/16/2023 11:15 AM EDT Imaging Radiology [address] [place] [address] 10/01/2023 10:30 AM EDT Office Visit Cardiology, [facility] [address] [place] [address] Shaw Hickey, DO [address] [place] [address] 10/24/2023 10:55 AM EDT Hospital Encounter OR [facility], Operating Room [facility] [address] [place] [address] Jc Palafox, DO [address] [place] [phone] 10/24/2023 10:55 AM EDT - 10/24/2023 11:20 AM EDT Surgery OR [facility], Operating Room [facility] [address] [place] [address] Jc Palafox, DO [address] [place] [phone] INJECTION SPINE LUMBAR OR [facility] 11/11/2023 1:00 PM EDT Nurse Only Ancillary 65 [facility] 293 [place] [address] College, Nurse Annual Wellness Visit [address] [facility] 293 [facility], [place] [address] Scheduled Procedures Name Priority Associated Diagnoses Date/Ti [...] and were consensually agreed upon. Care Teams Operators Teacher Relationship Specialty Start Date End Date Aviva Rossi DO [address] [place] [address] PCP - General Family Medicine 05/09/22 documented as of this encounter
--- OUTSIDE RECORDS SUMMARY | 2023-09-06 05:58 | External Medical Summary | Summary of Care ---
Author Name Unknown Organization [facility] Address [address] [place] [address] Phone [phone] Care Team Providers Care Hand Spinner Name Role Phone Aviva Rossi DO Primary Care Provider [phone] Reason for Visit * Reason Onset Date Comments Test Results 08/28/202308/27 Information 08/28/202308/28 Encounter Details Date Type Department Care Team (Late st Contact Info) Description 08/28/2023 Telephone Family Practice 65 [facility] [place] [address] [place] [id number] Aviva Rossi DO [address] [place], [place] [id number] Test Results (08/27); Information (08/28) Allergies Active Allergy Reactions Criticality Noted Date Comments Codeine 11/20/2012 Nausea and vomiting Lisinopril 06/12/2015 ?cough Penicillin G 11/20/2012 Hives Hydrocodone-Acetaminophen 11/20/2012 Nausea and vomiting documented as of this encounter (statuses as of 08/29/2023) Medications Medication Sig Dispensed Refills Start Date [...] taking 25 units., Reported on 08/25/2023 Pen [place] 316" 31G X 5 MM Use daily to inject insulin 4 times daily 400 Each 1 11/27/2022 Active Insulin Glargine Solostar 100 UNIT/ML Subcutaneous Solution Pen-injectorIndicat ions:Diabetes mellitus with peripheral vascular disease ([facility]),Type 2 diabetes mellitus with hemoglobin A1c goal [...] (Eliquis)Indication s:Hospital discharge follow-up,Atrial fibrillation with RVR ([facility]) Take 1 Tablet by mouth in the [...] gone. 14 Tablet 08/29/2023 09/05/19 24 Active Hospital, Clinic, or Other Facility Administered Medication Ordered Dose Route Frequency Start Date End Date Status Albuterol Sulfate (Proventil) (2.5 MG/3ML) 0.083% inhalation solution 2.5 mgIndications:Shortness of breath,History of asthma 2.5 mg NEBULIZER ONCE PRN 01/07/2023 01/07/2024 Active documented as of this encounter (statuses as of 08/29/2023) Active Problems Problem Noted Date Diagnosed Date [...] as of this encounter (statuses as of 08/29/2023) Resolved Problems Problem Noted Date Diagnosed Date [...] MTM----, Psychiatrist. Sees Dr Sanders-Lawrence @[facility] [phone] Morbid obesity 12/26/2016 Overview: Per Obesity protocol #1 PMB (postmenopausal bleeding) 11/12/2013 Chronic cough 08/22/2023 Productive cough 08/22/2023 Overview: chronic Left knee injury 06/09/2023 Elevated WBC count 4 documented as of this encounter (statuses as of 08/29/2023) Immunizations Name Administration Dates Next Due COVID-19 mRNA, LNP-s, No Pre serve, 2-Dose Series ([employer]) 09/21/2020,05/22/2020 COVID-19, MRNA-LNP, 23-24, P F, 30 MCG/0.3 mL, 12 YRS AND ABOVE, IM ([employer]) 08/25/2023,01/07/2023 Covid-19, Mrna, Lnp-s, Pf, B ivalent, 30 Mcg, IM, 12 yrs and above ([employer]) 05/09/2022 Pneumococcal Conjugate Vaccine, 20-valent (Prevn ar20) [...] encounter Miscellaneous Notes * Telephone Encounter - Michelle Tim LPN - 08/29/2023 4:02 PM EDT Call placed to patient and relayed information from Dr. Rossi. Pt acknowledged understanding andstates she will comply. * Telephone Encounter - Aviva Rossi DO - 08/29/2023 3:48 PM EDT She can stop keflex and try bactrim. Rx sent. * Telephone Encounter - Michelle Tim LPN - 08/29/2023 10:32 AM EDT Call placed to patient. States she reviewed urine culture results and noted that it is recommended to avoid cephalosporins. Pt on Cephalexin and states she is still having dysuria and feeling weak. Please advise. * Telephone Encounter - Mary Sung OSA - 08/29/2023 8:47 AM EDT Pt calling to speak w a nurse. Please call her at her home number * Telephone Encounter - Michelle Tim LPN - 08/28/2023 11:31 AM EDT Call placed to patient - relayed information from Dr. Rossi. Pt acknowledged understanding. Confirmed address, Parking placard form placed in mail. Pt reports she received a call yesterday about w/c delivery. States unsure who called her - [employer] or vendor. State she told them she will need a 22 in w/c and was told they only have 20 inch available. Message sent to [employer]. * Telephone Encounter - Aviva Rossi DO - 08/28/2023 8:05 AM EDT Please let pt know: Her lab studies looked ok. Her x-ray shows no fractures. We will mail her the parking placard form as I had forgotten to give it to her. (On Michelle's desk.) Gaby, please mail the eliquis oyster shucker form to pt. documented in this encounter Plan of Treatment Upcoming Encounters Date Type Department Care Team (Late st Contact Info) Description 09/03/2023 11:00 AM EDT Scheduled Telephone Care Coordination and Integration [address] [place] [address] Ben Blair [facility] [employer] Machine Tender [address] [place] [address] 09/11/2023 12:30 PM EDT Home Visit will at [facility] [address] [place] [address] Nubia Zamora RN 132 [facility] [place] [address] 09/16/2023 9:40 AM EDT Office Visit Family Practice [address] [place] [address] [address] [place] [address] Aviva Rossi DO [address] [place] [address] 09/16/2023 11:15 AM EDT Imaging Radiology [facility] [address] [place] [address] 10/01/2023 10:30 AM EDT Office Visit Cardiology, Health system [address] [place] [address] Shaw Hickey DO [address] [place] [address] 10/24/2023 10:55 AM EDT Hospital Encounter OR [facility], Operating Room [facility] [address] [place] [address] Jc Palafox, DO [address] [place] [address] 10/24/2023 10:55 AM EDT - 10/24/2023 11:20 AM EDT Surgery OR [facility], Operating Room [facility] [address] [place] [address] Jc Palafox, DO [address] [place] [address] INJECTION SPINE LUMBAR OR [facility]CRAL 11/06/2023 9:00 AM EDT [facility] Visit [facility], [facility] [address] [place] [address] Ken Gonzalez PA-C [address] [place] [address] 11/11/2023 1:00 PM EDT Nurse Only Ancillary 65 [facility] 293 [facility] [place] [address] College, Nurse Annual Wellness Visit [address] [place] [address] Scheduled Procedures Name Priority Associated Diagnoses Date/Ti [...] and were consensually agreed upon. Care Teams Hand Spinner Relationship Specialty Start Date End Date Aviva Rossi DO [address] [place] [address] PCP - General Family Medicine 05/09/22 documented as of this encounter
--- OUTSIDE RECORDS SUMMARY | 2023-09-06 05:58 | External Medical Summary | Summary of Care ---
Author Name Unknown Organization [facility] Address [address] [place] [address] Phone [phone] Care Team Providers Care Joint Cutter Name Role Phone Aviva Rossi DO Primary Care Provider [phone] Encounter Details Date Type Department Care Team (Late st Contact Info) Description 08/15/2023 Telephone Cardiology, [facility] [address] [place] [address] Ashwini Rios CRNP [address] [place] [address] Allergies Active Allergy Reactions Criticality Noted Date [...] taking 25 units., Reported on 08/25/2023 Pen [place] 316" 31G X 5 MM Use daily to inject insulin 4 times daily 400 Each 1 3 Active Insulin Glargine Solostar 100 UNIT/ML Subcutaneous Solution Pen-injectorIndicat ions:Diabetes mellitus with peripheral vascular disease (HCC),Type 2 diabetes mellitus with hemoglobin A1c goal of less than 8.0% ([facility]) Titrate down per titration schedule as starting [...] the morning. 90 Tablet 3 4 Active Magnesium Oxide 400 MG Oral Capsule Take 1 Capsule by mouth daily. Taking weekly 2 08/25/19 24 Discontinu ed(Patient preference /discontin uation) Losartan Potassium 100 MG Oral Tablet (Cozaar)Indications :Type 2 diabetes mellitus with hemoglobin A1c goal of less than 8.0% ([facility]),Hypertension goal BP (blood pressure) < 140/90 TAKE ONE TABLET BY MOUTH EVERY DAY 90 Tablet 1 4 08/21/19 24 Discontinu ed(Refill) Losartan Potassium 100 MG Oral Tablet (Cozaar)Indications :Type 2 diabetes mellitus with hemoglobin A1c goal of less than 8.0% ([facility]),Hypertension goal BP (blood pressure) < 140/90 Take 0.5 Tablets by mouth in the morning. 4 08/25/19 24 Discontinu ed(Patient preference /discontin uation) [...] 1999. Dx . Vocal cords. ENT in [facility]. Central serous retinopathy Major depression in partial [...] start lantus/novolog-refer MTM----, Psychiatrist. Sees Dr Sanders-Lawrence @[facility] [phone] Morbid obesity 12/26/2016 Overview: Per Obesity protocol #1 PMB (postmenopausal bleeding) 11/12/2013 Chronic cough 08/22/2023 Productive cough 08/22/2023 Overview: chronic Left knee injury 06/09/2023 Elevated WBC count 4 documented as of this encounter (statuses as of 08/29/2023) Immunizations Name Administration Dates Next Due COVID-19 mRNA, LNP-s, No Pre serve, 2-Dose Series ([employer]) 09/21/2020,05/22/2020 COVID-19, MRNA-LNP, 23-24, P F, 30 [...] encounter Miscellaneous Notes * Telephone Encounter - Bobby Marie RN - 08/21/2023 10:18 AM EDT Called and spoke to the patient about the message from Dr. Hickey and her medication Losartan. She stated she understood and and med list updated. * Telephone Encounter - Shaw Hickey DO - 08/20/2023 2:02 PM EDT Reduce losartan to 50 mg daily. * Telephone Encounter - Agustin Pastor OSA - 08/20/2023 11:17 AM EDT Called patient, she is scheduled, and is aware of the date and time. Patient scheduled with Dr. Hickey on: Friday Arrive by 10:15 AM Appt at 10:30 AM (30 min) She also wanted me to send a message to the provider about her med change. Patient stated she is taking the 12.5 mg of metoprolol - patient states her BP is still low, when she gets up and walks around, she still feels lightheaded. * Telephone Encounter - Agustin Pastor OSA - 08/20/2023 9:37 AM EDT Patient scheduled with Dr. Hickey on: Friday Arrive by 10:15 AM Appt at 10:30 AM (30 min) * Telephone Encounter - Ashwini Rios CRNP - 08/15/2023 5:34 PM EDT Need for hospital discharge follow up/ New to establish care. Anticipated DC date: 08/15/23 Dx: New onset A-fib in the setting of an acute UTI, spontaneously converted. Discharged on Toprol xl and Eliquis. Recommend appt to be scheduled within 4-6 weeks and would advise you set up with one of the Docs. Labs in one week. Orders placed. documented in this encounter Plan of Treatment Upcoming Encounters Date Type Department Care Team (Late st Contact Info) Description 09/03/2023 11:00 AM EDT Scheduled Telephone Care Coordination and Integration [address] [place] [address] Ben [facility] Coordinator [address] [place] [address] 09/11/2023 12:30 PM EDT [facility] Visit [facility], [facility] [address] [place] [address] Nubia Zamora, RN [address] [place] [address] 09/16/2023 9:40 AM EDT Office Visit Family Practice [address] [place] [address] [place] [address] Aviva Rossi, DO [address] [place] [address] 09/16/2023 11:15 AM EDT Imaging Radiology [address] [place] [address] 10/01/2023 10:30 AM EDT Office Visit Cardiology, [facility] [address] [place] [address] Shaw Hickey, DO [address] [place] [address] 10/24/2023 10:55 AM EDT Hospital Encounter OR [facility], Operating Room [facility] [address] [place] [address] Jc Palafox, DO [address] [place] [address] 10/24/2023 10:55 AM EDT - 10/24/2023 11:20 AM EDT Surgery OR [facility], Operating Room [facility] [address] [place] [address] Jc Palafox, DO [address] [place] [address] INJECTION SPINE LUMBAR OR SACRAL 11/06/2023 9:00 AM EDT Home Visit [facility], [place] [address] [place] [address] Ken Gonzalez PA-C [address] [place] [address] 11/11/2023 1:00 PM EDT Nurse Only Ancillary [address], [place] 293 [facility], [place] [address] College, Nurse Annual Wellness Visit [address] [facility] 293 [facility], [place] [address] Scheduled Procedures Name Priority Associated Diagnoses Date/Ti [...] Not on filedocumented as of this encounter Results * (ABNORMAL) BASIC METABOLIC PANEL (08/25/2023 1:00 PM EDT) BUN 37(H) 6 - 20 mg/dL 08/26/2023 12:16 AM EDT [facility] Creatinine 1.0 0.5 - 1.0 mg/dL 08/26/2023 12:16 AM EDT [facility] Estimated Glomerular Filtration Rate 59(L) >=60 mL/min 08/26/2023 12:16 AM EDT [facility] Comment:eGFR is calculated b ased on the CKD-EPI 2020 equation Sodium 138 135 - 146 mmol/L 08/26/2023 12:16 AM EDT [facility] Potassium 4.7 3.5 - 5.1 mmol/L 08/26/2023 12:16 AM EDT [facility] Chloride 101 98 - 107 mmol/L 08/26/2023 12:16 AM EDT [facility] CO2 26 22 - 32 mmol/L 08/26/2023 12:16 AM EDT [facility] Anion Gap 11 7 - 15 mmol/L 08/26/2023 12:16 AM EDT [facility] Glucose 118 70 - 120 mg/dL 08/26/2023 12:16 AM EDT [facility] Calcium 9.6 8.4 - 10.2 mg/dL 08/26/2023 12:16 AM EDT [facility] Blood Venous blood specimen / Unknown Venipuncture / Unknown 08/25/2023 1:00 PM EDT 08/25/2023 1:00 PM EDT Ashwini WYNNE LAB BLOOD ORDER [facility] [address] [place] [address] * (ABNORMAL) CBC (08/25/2023 1:00 PM EDT) WBC 11.09(H) 4.00 - 10.80 K/uL 08/25/2023 11:49 PM EDT [facility] RBC 4.79 3.85 - 5.15 M/uL 08/25/2023 11:49 PM EDT [facility] HGB 13.7 12.0 - 15.3 g/dL 08/25/2023 11:49 PM EDT [facility] HCT 42.5 36.0 - 45.2 % 08/25/2023 11:49 PM EDT [facility] MCV 88.7 81.5 - 97.5 fL 08/25/2023 11:49 PM EDT [facility] MCH 28.6 27.0 - 34.0 pg 08/25/2023 11:49 PM EDT [facility] MCHC 32.2 32.0 - 36.0 g/dL 08/25/2023 11:49 PM EDT [facility] RDW 13.0 11.5 - 15.5 % 08/25/2023 11:49 PM EDT [facility] PLT 252 140 - 400 K/uL 08/25/2023 11:49 PM EDT [facility] MPV 10.9 6.6 - 11.1 fL 08/25/2023 11:49 PM EDT [facility] nRBCs 0 <=0 /100 WBCs 08/25/2023 11:49 PM EDT [facility] Blood Venous blood specimen / Unknown Venipuncture / Unknown 08/25/2023 1:00 PM EDT 08/25/2023 1:00 PM EDT Ashwini Darrell W[facility]NE LAB BLOOD ORDER [facility] [address] [place] [address] documented in this encounter Visit Diagnoses Diagnosis New onset atrial fibrillation (HCC)- Primary Atrial fibrillation Type 2 diabetes mellitus with hemoglobin A1c goal of less than 8.0% (HCC) Hypertension goal BP (blood pressure) < 140/90 Unspecified essential hypertension Lumbar radiculopathy Thoracic or lumbosacral neuritis or [...] and were consensually agreed upon. Care Teams Joint Cutter Relationship Specialty Start Date End Date Aviva Rossi DO [address] [place] [address] PCP - General Family Medicine 05/09/22 documented as of this encounter
--- OUTSIDE RECORDS SUMMARY | 2023-09-06 05:58 | External Medical Summary | Summary of Care ---
Author Name Unknown Organization [facility] Address [address] [place] [address] Phone [phone] Care Team Providers Care Soot Blower Name Role Phone Aviva Rossi DO Primary Care Provider [phone] Reason for Visit * Reason Onset Date Comments Hospital Follow-Up Hospital Follow-Up 08/25/2023 Encounter Details Date Type Department Care Team (Late st Contact Info) Description 08/25/2023 10:40 AM EDT Office Visit Family Practice [facility] [place] [address] [place] [address] Aviva Rossi DO [address] [place] [address] Hospital discharge follow-up*; New onset atrial fibrillation (HCC); Atrial fibrillation with RVR (HCC); Type 2 diabetes mellitus with hemoglobin A1c goal of less than 8.0% (HCC); Acquired hypothyroidism; Hypertension goal BP (blood pressure) < 140/90; Dysuria; Fall, initial encounter; Need for COVID-19 vaccine Allergies Active Allergy Reactions Criticality Noted Date [...] taking 25 units., Reported on 08/25/2023 Pen [place] 06/06" 31G X 5 MM Use daily to inject insulin 4 times daily 400 Each 1 3 Active Insulin Glargine Solostar 100 UNIT/ML Subcutaneous Solution Pen-injectorIndicat ions:Diabetes mellitus with peripheral vascular disease (HCC),Type 2 diabetes mellitus with hemoglobin A1c goal of less than 8.0% ([facility]) Titrate down per titration schedule as [...] mouth in the morning. 30 Tablet 1 4 Active Apixaban 5 MG Oral Tablet (Eliquis)Indication s:Hospital discharge follow-up,Atrial fibrillation with RVR ([facility]) Take 1 Tablet by mouth in the morning and 1 Tablet before bedtime. 60 Tablet 1 4 Active Cephalexin 500 MG Oral CapsuleIndications: Dysuria Take 1 Capsule by mouth in the morning and 1 Capsule before bedtime. Do all this for 10 days. 20 Capsule 4 09/04/19 24 Active Magnesium Oxide 400 MG Oral Capsule [...] goal of less than 8.0% ([facility]),Hypertension goal BP (blood pressure) < 140/90 [...] lantus/novolog-refer MTM----, Psychiatrist. Sees Dr Sanders-Lawrence @[facility] [phone] Morbid obesity 12/26/2016 Overview: Per Obesity protocol #1 PMB (postmenopausal bleeding) 11/12/2013 Chronic cough 08/22/2023 Productive cough 08/22/2023 Overview: chronic Left knee injury 06/09/2023 Elevated WBC count 4 documented as of this encounter (statuses as of 08/27/2023) Immunizations Name Administration Dates Next Due COVID-19 mRNA, LNP-s, No Pre serve, 2-Dose Series ([employer]) 09/21/2020,05/22/2020 COVID-19, MRNA-LNP, 23-24, P F, 30 MCG/0.3 mL, 12 YRS AND ABOVE, IM ([employer]) 08/25/2023,01/07/2023 Covid-19, Mrna, Lnp-s, Pf, B ivalent, 30 Mcg, IM, 12 yrs and above ([employer]) 05/09/2022 Pneumococcal Conjugate Vaccine, 20-valent (Prevn ar20) [...] Sign Reading Time Taken Comments Blood Pressure 128/80 08/25/2023 10:56 AM EDT Pulse 73 08/25/2023 10:56 AM EDT Temperature 36.4 C (97.5 F) 08/25/2023 1 0:56 AM EDT Respiratory Rate 16 08/25/2023 10:5 6 AM EDT Oxygen Saturation 98% 08/25/2023 10: 56 AM EDT Inhaled Oxygen Concentration - - Weight 128.1 kg (282 lb 4.8 oz) 024 10:56 AM EDT Height 157.5 cm (5' 2") 08/25/2023 10:5 6 AM EDT Body Mass Index 51.63 08/25/2023 10:56 AM EDT documented in this encounter Progress Notes * Lisa Marquez LPN - 08/25/2023 1:00 PM EDT LAB DRAWN AND SENT TO [facility]. * Aviva Rossi DO - 08/25/2023 10:53 AM EDT SUBJECTIVE: Chief Complaint Patient presents with Hospital Follow-Up HPI: Lisa Gamboa is a 68 year old female who presents today for hospital follow-up. Pt was admitted with Jennifer with RVR. She was started on Eliquis and metoprolol. Some element of diastolic CHF. Treated with IV lasix. She was also treated for klebsiella UTI. Other issues noted to be stable. Shewas discharged to home on 08/14. Pt states that she had a fall when she was in the hospital. She states that she was trying to adjust herself in the chair. She was putting weight on the tray table and it slid out. She landed on her buttocks and right side. She scraped her elbow a bit. She felt that she had pain in her left buttocks. She has pain around her coccyx. She had no imaging at the time. She has her typical spinal stenosis pain as well. Pt notes that she continues to have some burning with urination. She states she just "does not feelwell". She was nauseous this morning. She notes she always has urgency. It is hard to tell if she has any frequency. She has not seen blood. She notes no rashes. No discharge. No itching. She notes she had a bit of nausea on and off but was worse this morning. She notes that she is taking the lasix more often twice daily. She is doing this because she is more swollen. She states she does not have the ability to weigh herself. She cannot center herself on the scale and see the number. She notes that she has a wrist cuff at home. She is checking her BP daily. She notes that it can be in the 130/70 range. She notes that it is running in the 90s-110 SBP and 50-70 DBP at home. She notes that she has lightheadedness when she is up and moving around. She will feel fatigued. She is taking the metoprolol 12.5mg BID. She had initially cut her losartan down to 1/2 tablet but then cut it out completely. She feels the lightheadedness has been a bit better off of it. 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 Taking weekly (Patient not taking: Reported on 08/25/2023) Cyanocobalamin 1000 MCG Oral Tablet (Cyanocobalamin) Take [...] only taking 25 units.) 45 mL 3 Pen [place] 3/16" 31G X 5 MM Use daily to inject insulin 4 times daily 400 Each 1 Insulin Glargine Solostar 100 UNIT/ML Subcutaneous Solution Pen-injector Titrate down per titrationschedule as starting Xultophy. Pt reports she is currently taking 4 units. FLUoxetine HCl 20 MG Oral Capsule (PROzac) Take 1 Capsule by mouth in the morning. 100 Capsule 3 FLUoxetine HCl 40 MG Oral Capsule (PROzac) Take 1 Capsule by mouth in the morning. 100 Capsule 3 ProAir HFA 108 (90 Base) MCG/ACT Inhalation Aerosol Solution Inhale 2 Puffs by mouth 4 times a day as needed for Dyspnea. 54 g 1 buPROPion HCl ER (SR) 150 MG [...] mouth in the morning. 90 Tablet 3 Apixaban 5 MG Oral Tablet (Eliquis) Take 1 Tablet by mouth in the morning and 1 Tablet before bedtime. metoprolol succinate XL 12.5 MG OR TB24 Take 0.5 Tablets by mouth in the morning and 0.5 Tablets before bedtime. Losartan Potassium 100 MG Oral Tablet (Cozaar) Take 0.5 Tablets by mouth in the morning. Current Facility-Administered Medications Medication Dose Route Frequency Provider Last Rate Last Admin Albuterol Sulfate (Proventil) (2.5 MG/3ML) 0.083% inhalation solution 2.5 mg 2.5 mg Nebulizer Once PRN Aviva Rossi DO 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 Chronic cough DM (diabetes mellitus) ([facility]) Elevated WBC count 80s Endometrial cancer ([facility]) Ex-smoker 09/03/2013 IBS (irritable bowel syndrome) Left knee injury meniscus tear, medial condyle fracutre Major depression in partial remission ([facility]) Microalbuminuric diabetic nephropathy ([facility]) 04/28/2014 Morbid obesity ([facility]) Myasthenia gravis ([facility]) Ocular migraine Productive cough chronic PSVT (paroxysmal supraventricular tachycardia) ([facility]) 80s due to albuterol, theophylline Pyelonephritis 2x [facility] Sleep apnea Sleep apnea, obstructive Stress incontinence Past Surgical History: Procedure Laterality Date , INDUCED BY D&C COLONOSCOPY, DIAGNOSTIC (RECTUM) N/A 09/18/2022 hemorrhoids/multiple polyps/biopsies show adenomatous and tubulovillous adenoma/recall 3 months/colonoscopy/[place] DENTAL SURGERY PROCEDURE NEC EGD, FLEXIBLE, DIAGNOSTIC 09/27/2015 normal/[facility] LAPAROSCOPY TOTAL HYSTX, UTERUS 250GM OR LESS TUBE/OVARY 02/02/2013 LAPAROSCOPIC HYSTERECTOMY REMOVAL TUBES AND OVARIES FOR UTERUS 250GM OR LESS performed by Elizabeth Phillips DO at OR [facility] Review of patient's allergies indicates: Allergen Reactions Codeine Nausea and vomiting Lisinopril ?cough Penicillin G Hives Vicodin [Hydrocodone-Acetaminophen] Nausea and vomiting Family History Problem Relation Name Age of [...] abdominal pain, constipation, diarrhea, nausea and vomiting. Genitourinary: As per HPI Musculoskeletal: Negative for arthralgias, gait problem and joint swelling. Skin: Negative for color change, pallor and rash. Neurological: Positive for light-headedness. OBJECTIVE: BP 128/80 (BP Site: Left Arm, BP Position: Sitting, BP Cuff Size: Regular) | Pulse 73 | Temp 36.4 C (97.5 F) (Tympanic) | Resp 16 | Ht 1.575 m (5' 2") | Wt 128.1 kg (282 lb 4.8 oz) | SpO2 98% | BMI 51.63 kg/m | BSA 2.37 m PHYSICAL EXAM: [...] oriented to person, place, and time. ASSESSMENT/PLAN: (Z09) Hospital discharge follow-up (primary encounter diagnosis) (I48.91) New onset atrial fibrillation (HCC) (I48.91) Atrial fibrillation with RVR (HCC) Plan: Apixaban 5 MG Oral Tablet (Eliquis), DISCH MED RECON CUR MED LIS, HEPATIC FUNCTION PANEL, HEPATIC FUNCTION PANEL Pt will remain on Apixaban. Will mail application for Eliquis assistance to her. Lab studies today.Will await results. (E11.9) Type 2 diabetes mellitus with hemoglobin A1c goal of less than 8.0% (HCC) Plan: BG controlled. No changes. (E03.9) Acquired hypothyroidism Plan: pt will remain on levothyroxine. No changes. (I10) Hypertension goal BP (blood pressure) < 140/90 Plan: Losartan Potassium 25 MG Oral Tablet (Cozaar) BP controlled. She will remain on losartan but at lower dose. We will see how she is doing with herBP. Consider decrease in metoprolol pending. (R30.0) Dysuria Plan: URINALYSIS, POINT OF CARE (ENTER/EDIT), CULTURE, URINE, QUANTITATIVE, Cephalexin 500 MG Oral Capsule UA with leuks, nitrites and blood. Start keflex. Await culture. (W19.XXXA) Fall, initial encounter Plan: XR SACRUM COCCYX MINIMUM 2 VIEWS, XR HIP BILAT MIN 5 VIEWS INCLUDING AP OF PELVIS X-rays today. No obvious fracture per my read. Await radiology reading. (Z23) Need for COVID-19 vaccine Plan: COVID-19, MRNA-LNP, PF, 23-24, 30MCG/0.3ML, IM, 12YRS AND ABOVE ([employer]) Vaccine given. See admin record. Follow-up: 2 months Total time today including reviewing chart before the visit, pertinent labs, imaging reports, face to face time, and documentation time was 47 minutes. Aviva Rossi DO documented in this encounter Nursing Notes * Michelle Tim LPN - 08/25/2023 12:44 PM EDT Pre-Administration Time Out Procedure Performed: Yes Patient Identified (Ask Name/Date of ): Yes Does the patient have a fever greater than 101 degrees today? No Patient allergic to latex? No Has the patient ever fainted after receiving an injection? No VFC Stock: No Immunization(s) verified: Yes, Immunization Name: COVID, VIS Sheet(s) given: Yes Verified Side and Site: Yes Verified Shot(s) with Parent(s)/Patient: Yes * Michelle Tim LPN - 08/25/2023 10:53 AM EDT Patient here for hospital discharge follow up. Reports she fell in the hospital and has had pain inbuttocks and coccyx area since fall. States she was not x- rayed in the hospital. States she has been taking tylenol regularly on a daily basis. States she also has left over Percocet from 2012 that she will take 1/2 tablet with her Tylenol. documented in this encounter Plan of Treatment Upcoming Encounters Date Type Department Care Team (Latest Contact Info) Description 09/11/2023 12:30 PM EDT Home Visit [facility] [address] [place] [address] Nubia Zamora, RN [address] [place] [address] 09/16/2023 9:40 AM EDT Office Visit Family Practice [address] [place] [address] [place] [address] Aviva Rossi, DO [address] [facility] [place] [address] 09/16/2023 11:15 AM EDT Imaging Radiology [facility] [address] [place] [address] 10/01/2023 10:30 AM EDT Office Visit Cardiology, [facility] [address] [place] [address] Shaw Hickey, DO [address] [place] [address] 10/24/2023 10:55 AM EDT Hospital Encounter [facility] [address] [place] [address] Jc Palafox, DO [address] [place] [phone] 10/24/2023 10:55 AM EDT - 10/24/2023 11:20 AM EDT Surgery OR [facility], Operating Room [facility] [address] [place] [phone] Jc Palafox, DO [address] [place] [phone] INJECTION SPINE LUMBAR OR [facility] 11/06/2023 9:00 AM EDT Home Visit [facility], [facility] [address] [place] [address] Ken Gonzalez PA-C [address] [place] [address] 11/11/2023 1:00 PM EDT Nurse Only Ancillary [facility] [address] [facility], [place] [address] College, Nurse Annual Wellness Visit [address] [facility] [address] [facility], [place] [address] Pending Results Name Type Priority Associated Diagnoses Date /Time CULTURE, URINE, QUANTITATIVE Lab Routine Dysuria 08/25/2023 12:42 PM EDT Scheduled Orders Name Type Priority Associated Diagnoses Orde r Schedule URINALYSIS, POINT OF CARE (ENTER/EDIT) Point of Care Testing Routine Dysuria Ordered: 08/25/2023 Scheduled Procedures Name Priority Associated Diagnoses Date/Ti [...] Procedure Name Priority Date/Time Associated Diagnosis Comments XR HIP BILAT MIN 5 VIEWS INCLUDING AP OF PELVIS Routine 08/25/2023 1:04 PM EDT Fall, initial encounter XR SACRUM COCCYX MINIMUM 2 VIEWS Routine 08/25/2023 1:02 PM EDT Fall, initial encounter HEPATIC FUNCTION PANEL Routine 08/25/2023 1:00 PM EDT Atrial fibrillation with RVR (HCC) BASIC METABOLIC PANEL Routine 08/25/2023 1:00 PM EDT New onset atrial fibrillation (HCC) CBC Routine 08/25/2023 1:00 PM EDT New onset atrial fibrillation (HCC) CULTURE, URINE, QUANTITATIVE Routine 08/25/2023 12:42 PM EDT Dysuria URINALYSIS, POINT OF CARE NORIS 08/25/2023 11:54 AM EDT documented in this encounter Results * XR HIP BILAT MIN 5 VIEWS INCLUDING AP OF PELVIS (08/25/2023 1:04 PM EDT) Anatomical Region Laterality Modality Lower Extremity, Hip, Pelvis Dig ital Radiography 08/27/2023 10:5 1 AM EDT Narrative 08/27/2023 10:49 AM EDT EXAM: XR SACRUM COCCYX MINIMUM 2 VIEWS; XR HIP BILAT MIN 5 VIEWS INCLUDING AP OF PELVIS HISTORY: coccyx pain after fall in hospital; fall, groin pain bilaterally TECHNIQUE: XR SACRUM COCCYX MINIMUM 2 VIEWS; XR HIP BILAT MIN 5 VIEWS INCLUDING AP OF PELVIS COMPARISON: 11/16/2012 CT FINDINGS: Pelvic ring intact. No acute displaced fracture of the sacrum/coccyx on limited radiographic imaging. Bilateral sacroiliac joint intact, with mild to moderate degenerative change. Degenerative changes within the partially visualized lower lumbar spine. Right hip: No acute fracture or dislocation. Mild degenerative change/osteoarthritis. Cartilage space is maintained. Left hip: No acute fracture or dislocation. Mild degenerative change/osteoarthritis. Cartilage space is maintained. IMPRESSION: 1. No acute displaced fracture of the sacrum/coccyx. 2. Mild osteoarthritis of both hips. 3. Degenerative changes within the partially visualized lower lumbar spine. Procedure Note Haresh Argueta MD - 08/27/2023 EXAM: XR SACRUM COCCYX MINIMUM 2 VIEWS; XR HIP BILAT MIN 5 VIEWS INCLUDING AP OFPELVIS HISTORY: coccyx pain after fall in hospital; fall, groin pain bilaterally TECHNIQUE: XR SACRUM COCCYX MINIMUM 2 VIEWS; XR HIP BILAT MIN 5 VIEWS INCLUDING AP OFPELVIS COMPARISON: 11/16/2012 CT FINDINGS: Pelvic ring intact. No acute displaced fracture of the sacrum/coccyx onlimited radiographic imaging. Bilateral sacroiliac joint intact, withmild to moderate degenerative change. Degenerative changes within thepartially visualized lower lumbar spine. Right hip: No acute fracture or dislocation. Mild degenerativechange/osteoarthritis. Cartilage space is maintained. Left hip: No acute fracture or dislocation. Mild degenerativechange/osteoarthritis. Cartilage space is maintained. IMPRESSION: 1. No acute displaced fracture of the sacrum/coccyx. 2. Mild osteoarthritis of both hips. 3. Degenerative changes within the partially visualized lower lumbarspine. Aviva Rossi DO RADIOLOGY (RAD GENER AL) * XR SACRUM COCCYX MINIMUM 2 VIEWS (08/25/2023 1:02 PM EDT) Anatomical Region Laterality Modality Vertebra, Spine, Pelvis Digital Radiography 08/27/2023 10:5 1 AM EDT Narrative 08/27/2023 10:49 AM EDT EXAM: XR SACRUM COCCYX MINIMUM 2 VIEWS; XR HIP BILAT MIN 5 VIEWS INCLUDING AP OF PELVIS HISTORY: coccyx pain after fall in hospital; fall, groin pain bilaterally TECHNIQUE: XR SACRUM COCCYX MINIMUM 2 VIEWS; XR HIP BILAT MIN 5 VIEWS INCLUDING AP OF PELVIS COMPARISON: 11/16/2012 CT FINDINGS: Pelvic ring intact. No acute displaced fracture of the sacrum/coccyx on limited radiographic imaging. Bilateral sacroiliac joint intact, with mild to moderate degenerative change. Degenerative changes within the partially visualized lower lumbar spine. Right hip: No acute fracture or dislocation. Mild degenerative change/osteoarthritis. Cartilage space is maintained. Left hip: No acute fracture or dislocation. Mild degenerative change/osteoarthritis. Cartilage space is maintained. IMPRESSION: 1. No acute displaced fracture of the sacrum/coccyx. 2. Mild osteoarthritis of both hips. 3. Degenerative changes within the partially visualized lower lumbar spine. Procedure Note Haresh Argueta MD - 08/27/2023 EXAM: XR SACRUM COCCYX MINIMUM 2 VIEWS; XR HIP BILAT MIN 5 VIEWS INCLUDING AP OFPELVIS HISTORY: coccyx pain after fall in hospital; fall, groin pain bilaterally TECHNIQUE: XR SACRUM COCCYX MINIMUM 2 VIEWS; XR HIP BILAT MIN 5 VIEWS INCLUDING AP OFPELVIS COMPARISON: 11/16/2012 CT FINDINGS: Pelvic ring intact. No acute displaced fracture of the sacrum/coccyx onlimited radiographic imaging. Bilateral sacroiliac joint intact, withmild to moderate degenerative change. Degenerative changes within thepartially visualized lower lumbar spine. Right hip: No acute fracture or dislocation. Mild degenerativechange/osteoarthritis. Cartilage space is maintained. Left hip: No acute fracture or dislocation. Mild degenerativechange/osteoarthritis. Cartilage space is maintained. IMPRESSION: 1. No acute displaced fracture of the sacrum/coccyx. 2. Mild osteoarthritis of both hips. 3. Degenerative changes within the partially visualized lower lumbarspine. Aviva Rossi DO RADIOLOGY (RAD GENER AL) * (ABNORMAL) BASIC METABOLIC PANEL (08/25/2023 1:00 [...] Ashwini WYNNE LAB BLOOD ORDER [facility] [address] [place] [address] * (ABNORMAL) CBC (08/25/2023 1:00 [...] Ashwini WYNNE LAB BLOOD ORDER [facility] [address] [place] [address] * HEPATIC FUNCTION PANEL (08/25/2023 1:00 PM EDT) [facility] Albumin 4.5 3.8 - 5.0 g/dL 08/26/2023 12:16 AM EDT [facility] AST 14 10 - 35 U/L 08/26/2023 12:16 AM EDT [facility] Alkaline Phosphatase 59 35 - 130 U/L 08/26/2023 12:16 AM EDT [facility] ALT 17 10 - 35 U/L 08/26/2023 12:16 AM EDT [facility] Bilirubin, Total 0.7 <=1.2 mg/dL 08/26/2023 12:16 AM EDT LABORATORY C Bilirubin, Direct <0.2 0.0 - 0.3 mg/dL 08/26/2023 12:16 AM EDT [facility] Protein 7.1 6.0 - 8.3 g/dL 08/26/2023 12:16 AM EDT LABORATORY [facility] Blood Venous blood specimen / Unknown Venipuncture / Unknown 08/25/2023 1:00 PM EDT 08/25/2023 1:00 PM EDT Aviva Rossi DO LAB BLOOD ORDERABLES LAB[facility]ATORY [facility] [address] [place] [address] * (ABNORMAL) URINALYSIS, POINT OF CARE (08/25/2023 11:54 AM EDT) Color, Urine Other(A) Light Yellow, Yellow 08/25/2023 12:19 PM EDT [place] [address] Clarity, Urine Cloudy(A) Clear 08/25/2023 12:19 PM EDT [place] [address] Glucose, Urine Negative Negative mg/dL 08/25/2023 12:19 PM EDT [place] [address] Bilirubin, Urine Negative Negative 08/25/2023 12:19 PM EDT [place] [address] Ketone, Urine Negative Negative mg/dL 08/25/2023 12:19 PM EDT [place] [address] Specific [place], Urine 1.015 1.003 - 1.030 08/25/2023 12:19 PM EDT [place] [address] Blood, Urine Moderate(A) Negative 08/25/2023 12:19 PM EDT [place] [address] pH, Urine 5.5 5.0, 5.5, 6.0, 6.5, 7.0, 7.5 units 08/25/2023 12:19 PM EDT [place] [address] Protein, Urine Negative Negative mg/dL 08/25/2023 12:19 PM EDT [facility] 56-21 Urobilinogen, Urine 0.2 0.2, 1.0 mg/dL 08/25/2023 12:19 PM EDT [facility] 56-21 Nitrite, Urine Positive(A) Negative 08/25/2023 12:19 PM EDT [facility] 56-21 Esterase, Urine Moderate(A) Negative 08/25/2023 12:19 PM EDT [facility] 56-21 Urine 08/25/2023 11:5 4 AM EDT 08/25/2023 12:19 PM EDT Aviva Rossi DO LAB POINT OF CARE TE ST DOCKED DEVICE UNSOLICITED RESULTS [address] [place] [phone], [facility] documented in this encounter Visit Diagnoses Diagnosis Hospital discharge follow-up- Primary Other follow-up examination New onset atrial fibrillation (HCC) Atrial fibrillation Atrial fibrillation with RVR (HCC) Atrial fibrillation Type 2 diabetes mellitus with hemoglobin A1c goal of less than 8.0% (HCC) Acquired hypothyroidism Unspecified hypothyroidism Hypertension goal BP (blood pressure) < 140/90 Unspecified essential hypertension Dysuria Fall, initial encounter Need for COVID-19 vaccine Lumbar radiculopathy Thoracic or lumbosacral neuritis or [...] and were consensually agreed upon. Care Teams Soot Blower Relationship Specialty Start Date End Date vAiva Rossi DO [address] [place] [address] PCP - General Family Medicine 05/09/22 documented as of this encounter
--- OUTSIDE RECORDS SUMMARY | 2023-09-06 05:58 | External Medical Summary | Summary of Care ---
Author Name Unknown Organization [facility] Address [address] [place] [address] Phone [phone] Care Team Providers Care Casing Runner Name Role Phone Flo Avivatita Gonzales DO Primary Care Provider Encounter Details Date Type Department Care Team (Late st Contact Info) Description 08/14/2023 Result Scan Unspecified Department <No scans attached> Allergies Active Allergy Reactions Criticality Noted Date Comments Codeine 11/20/2012 Nausea and vomiting Lisinopril 06/12/2015 ?cough Penicillin G 11/20/2012 Hives Hydrocodone-Acetaminophen 11/20/2012 Nausea and vomiting documented as of this encounter (statuses as of 08/28/2023) Medications Medication Sig Dispensed Refills Start Date [...] taking 25 units., Reported on 08/25/2023 Pen [place] 06/06" 31G X 5 MM Use daily to inject insulin 4 times daily 400 Each 1 11/27/2022 Active Insulin Glargine Solostar 100 UNIT/ML Subcutaneous Solution Pen-injectorIndicat ions:Diabetes mellitus with peripheral vascular disease (HCC),Type 2 diabetes mellitus with hemoglobin A1c goal of less than 8.0% ([facility]) Titrate down per titration schedule as starting [...] as of this encounter (statuses as of 08/28/2023) Active Problems Problem Noted Date Diagnosed Date [...] as of this encounter (statuses as of 08/28/2023) Resolved Problems Problem Noted Date Diagnosed Date [...] start lantus/novolog-refer MTM----, Psychiatrist. Sees Dr Sanders-Lawrence @[facility] [phone] Morbid obesity 12/26/2016 Overview: Per Obesity protocol #1 PMB (postmenopausal bleeding) 11/12/2013 Chronic cough 08/22/2023 Productive cough 08/22/2023 Overview: chronic Left knee injury 06/09/2023 Elevated WBC count 4 documented as of this encounter (statuses as of 08/28/2023) Immunizations Name Administration Dates Next Due COVID-19 mRNA, LNP-s, No Pre serve, 2-Dose Series ([employer]) 09/21/2020,05/22/2020 COVID-19, MRNA-LNP, 23-24, P F, 30 MCG/0.3 mL, 12 YRS AND ABOVE, IM ([employer]) 01/07/2023 Covid-19, Mrna, Lnp-s, Pf, B ivalent, 30 Mcg, IM, 12 yrs and above ([employer]) 05/09/2022 Pneumococcal Conjugate Vaccine, 20-valent (Prevn ar20) [...] Description 09/11/2023 12:30 PM EDT Home Visit [facility], [facility] [address] [place] [address] Nubia Zamora, RN 132 [facility] [place] [address] 09/16/2023 9:40 AM EDT Office Visit Family Practice [address] [place] 293 [place] [address] Aviva Rossi, DO 293 [facility] [place] [address] 09/16/2023 11:15 AM EDT Imaging Radiology [facility] 1st [facility] 132 [facility] [place] [address] 10/01/2023 10:30 AM EDT Office Visit Cardiology, [facility] 132 [facility] [place] [address] Shaw Hickey, DO 132 [facility] [place] [address] 10/24/2023 10:55 AM EDT Hospital Encounter OR [facility], Operating Room [facility] [address] [place] [phone] Jc Palafox, DO [address] [place] [address] 10/24/2023 10:55 AM EDT - 10/24/2023 11:20 AM EDT Surgery OR [facility], Operating Room [facility] [address] [place] [phone] Jc Palafox DO [address] [place] [address] INJECTION SPINE LUMBAR OR SACRAL 11/06/2023 9:00 AM EDT Home Visit [facility], [facility] [address] [place] [address] Ken Gonzalez PA-C [address] [place] [address] 11/11/2023 1:00 PM EDT Nurse Only Ancillary [address] [place] [address] [place] [address] College, Nurse Annual Wellness Visit [address] [facility] 293 [place] [address] Scheduled Procedures Name Priority Associated Diagnoses Date/Ti [...] Procedure Name Priority Date/Time Associated Diagnosis Comments ECHOCARDIOLOGY SCANNED RESULT 08/14/2023 EKG SCANNED RESULT 08/14/2023 OUTSIDE LAB RESULTS 08/13/2023 documented in this encounter Results * ECHOCARDIOLOGY SCANNED RESULT (08/14/2023) 08/14/2023 No Physician Data Unknown ECHOCARDIOLOGY * EKG SCANNED RESULT (08/14/2023) 08/14/2023 No Physician Data Unknown EKG * OUTSIDE LAB RESULTS (08/13/2023) 08/13/2023 No Physician Data Unknown LABORATORY documented in this encounter Advance Directives * [...] and were consensually agreed upon. Care Teams Casing Runner Relationship Specialty Start Date End Date Aviva Rossi DO 293 [facility] [place] [address] PCP - General Family Medicine 05/09/22 documented as of this encounter
--- OUTSIDE RECORDS SUMMARY | 2023-09-06 05:59 | External Medical Summary ---
Author Name Unknown Address Unknown Organization K01:[facility] - [address] [facility] [address] Laboratory Report Ordering Provider Test Date Status BREANA HSU 08/25/2023 12:42:37 Final <10,000 colonies/ml mixed no rmal wen Observation Date Value Abnormality Reference (Units ) Status Bacteria identified in Specimen by Culture 08/25/2023 12:42:37 [id number]^ENTEROB ACTER CLOACAE COMPLEX Abnormal Final >100,000 colonies/mL Enterob acter cloacae complex
This bacterial species is known to produce an inducible AmpC beta lactamase. Except for the treatment of simple cystitis, recommend avoiding penicillins or cephalosporins other than cefepime. Performing Location [facility] - [address] [facility] [address] Ordering Provider Test Date Status BREANA HSU 08/25/2023 12:42:37 Final Observation Date Value Abnormality Reference (Units ) Status Cefepime susceptibility 08/25/2023 12:42:37 <=1 Susceptible Final cefOXitin [Susceptibility] 08/25/2023 12:42:37 >=64 Resistant Final Ceftriaxone suceptibility 08/25/2023 12:42:37 >=64 Resistant Final Avoid unless for the treatme nt of simple cystitis. Ciprofloxacin 08/25/2023 12:42:37 <=0.25 Susceptible Final Due to serious side effects, the FDA has advised against using Ciprofloxacin to treat uncomplicated UTIs and respiratory tract infections unless there are no alternative treatment options. Gentamicin susceptibility 08/25/2023 12:42:37 <=1 Susc eptible Final Nitrofurantoin susceptibility 08/25/2023 12:42:37 64 Intermediate Final Piperacillin + Tazobactamsusceptibility 08/25/2023 12:42:37 >=128 Resistant Final Avoid unless for the treatme nt of simple cystitis. TMP-SMZ susceptibility 08/25/2023 12:42:37 <=20 Suscept ible Final Performing Location [facility] - [address] [facility] [address] Ordering Provider Test Date Status BRENAA HSU 08/25/2023 12:42:37 Final Observation Date Value Abnormality Reference (Units ) Status Meropenem [Susceptibility] 08/25/2023 12:42:37 0.25 Susceptible Susceptible <2 , Intermediate >=2 , Resistant >=4 Final Test: Culture, Urine, Quanti tative
Specimen Source: Urine, Clean Catch
Specimen Type: Urine
Specimen Date: 08/25/2023 [id number]
Result Date: 08/28/2023 1452
Result Status: Final result
Abnormal: Yes
Resulting Lab: [facility]
[address]
[facility] [address]

CULTURE

>100,000 colonies/mL Enterobacter cloacae complex (Abnormal)

This bacterial species is known to produce an inducible AmpC beta
lactamase. Except for the treatment of simple cystitis, recommend avoiding
penicillins or cephalosporins other than cefepime.

<10,000 colonies/ml mixed normal wen

SUSCEPTIBILITY

Enterobacter cloacae Enterobacter cloacae
complex complex
METHOD ETEST MICROBROTH DILUTIONS

CEFEPIME <=1 Susceptible
CEFOXITIN >=64 Resistant
CEFTRIAXONE >=64 Resistant
[1]
CIPROFLOXACIN <=0.25 Susceptible
[2]
GENTAMICIN <=1 Susceptible
MEROPENEM 0.25 Susceptible
NITROFURANTOIN 64 Intermediate
PIPERACILLIN TAZOBACTAM >=128 Resistant
[3]
TRIMETH/SULFAMETHOXAZOLE <=20 Susceptible

[1] Avoid unless for the treatment of simple cystitis.

[2] Due to serious side effects, the FDA has advised against using
Ciprofloxacin to treat uncomplicated UTIs and respiratory tract infections
unless there are no alternative treatment options.

[3] Avoid unless for the treatment of simple cystitis.

null Performing Location LAB[facility] - [address] [facility] [address]
--- OUTSIDE RECORDS SUMMARY | 2023-09-06 05:59 | External Medical Summary | Summary of Care ---
Author Name Unknown Organization [facility] Address [address] [place] [address] Phone [phone] Care Team Providers Care Bath Mix Operator Name Role Phone Aviva Rossi DO Primary Care Provider Encounter Details Date Type Department Care Team (Late st Contact Info) Description 08/19/2023 Orders Only PATIENT PORTAL DO NOT DELETE THIS DEPT USED BY [place] [id number] Allergies Active Allergy Reactions Criticality Noted Date Comments Codeine 11/20/2012 Nausea and vomiting Lisinopril 06/12/2015 ?cough Penicillin G 11/20/2012 Hives Hydrocodone-Acetaminophen 11/20/2012 Nausea and vomiting documented as of this encounter (statuses as of 08/19/2023) Medications Medication Sig Dispensed Refills Start Date [...] taking 30 units., Reported on 06/17/2023 Pen [place] 316" 31G X 5 MM Use daily to inject insulin 4 times daily 400 Each 1 11/27/2022 Active Insulin Glargine Solostar 100 UNIT/ML Subcutaneous Solution Pen-injectorIndicat ions:Diabetes mellitus with peripheral vascular disease (HCC),Type 2 diabetes mellitus with hemoglobin A1c goal of less than 8.0% ([facility]) Titrate down per titration schedule [...] as of this encounter (statuses as of 08/19/2023) Active Problems Problem Noted Date Diagnosed Date [...] start lantus/novolog-refer MTM----, Psychiatrist. Sees Dr Sanders-Lawrence @[facility] [phone] IBS (irritable bowel syndrome) Stress incontinence Type 2 diabetes mellitus wit h hemoglobin A1c goal of less than 8.0% Overview: ICD-10 update of inactive term Myasthenia gravis Overview: 1999. Dx . Vocal cords. ENT in [facility]. Chronic cough Central serous retinopathy Productive cough Overview: chronic Major depression in partial remission documented as of this encounter (statuses as of 08/19/2023) Resolved Problems Problem Noted Date Diagnosed Date [...] as of this encounter (statuses as of 08/19/2023) Immunizations Name Administration Dates Next Due COVID-19 mRNA, LNP-s, No Pre serve, 2-Dose Series ([employer]) 09/21/2020,05/22/2020 COVID-19, MRNA-LNP, 23-24, P F, 30 MCG/0.3 mL, 12 YRS AND ABOVE, IM ([employer]) 01/07/2023 Covid-19, Mrna, Lnp-s, Pf, B ivalent, 30 Mcg, IM, 12 yrs and above ([employer]) 05/09/2022 Pneumococcal Conjugate Vaccine, 20-valent (Prevn ar20) [...] 10:20 AM EDT Pharmacy Family Practice 65 [facility] 293 [place] [address] College, Pharmacist [address] [place] [address] 08/25/2023 10:40 AM EDT Office Visit Family Practice 65 [facility] 293 [place] [address] Aviva Rossi, DO 293 [place] [address] 09/16/2023 9:40 AM EDT Office Visit Family Practice 65 [facility] 293 [place] [address] Aviva Rossi, DO 293 [place] [address] 09/16/2023 11:15 AM EDT Imaging Radiology [facility] 1st [facility] [place] 132 [facility] [place] [address] 10/24/2023 10:55 AM EDT Hospital Encounter OR [facility], Operating Room [facility] [address] [place] [phone] Jc Palafox, DO [address] [place] [phone] 10/24/2023 10:55 AM EDT - 10/24/2023 11:20 AM EDT Surgery OR [facility], Operating Room [facility] [address] [place] Jc Palafox, [address] [place] [phone] INJECTION SPINE LUMBAR OR SACRAL 11/11/2023 1:00 PM EDT Nurse Only Ancillary [address] [place] 293 [place] [address] College, Nurse Annual Wellness Visit [address] [facility] 293 [facility], [place] Scheduled Procedures Name Priority Associated Diagnoses Date/Ti [...] and were consensually agreed upon. Care Teams Bath Mix Operator Relationship Specialty Start Date End Date Aviva Rossi DO [address] [place] [address] PCP - General Family Medicine 05/09/22 documented as of this encounter
--- OUTSIDE RECORDS SUMMARY | 2023-09-06 05:59 | External Medical Summary | Summary of Care ---
Author Name Unknown Organization [facility] Address [address] [place] [address] Phone [phone] Care Team Providers Care Trip Motor Operator Name Role Phone Aviva Rossi DO Primary Care Provider Reason for Visit * Reason Onset Date Comments Appointment 08/21/2023 Encounter Details Date Type Department Care Team (Late st Contact Info) Description 08/21/2023 1:15 PM EDT Scheduled Telephone [facility], [facility] [address] [place] [address] Coordinator, [facility] 132 [facility] [place] [address] Allergies Active Allergy Reactions Criticality Noted Date Comments Codeine 11/20/2012 Nausea and vomiting Lisinopril 06/12/2015 ?cough Penicillin G 11/20/2012 Hives Hydrocodone-Acetaminophen 11/20/2012 Nausea and vomiting documented as of this encounter (statuses as of 08/21/2023) Medications Medication Sig Dispensed Refills Start Date [...] taking 30 units., Reported on 06/17/2023 Pen [place] 3/16" 31G X 5 MM Use daily [...] the morning. 90 Tablet 3 06/17/2023 Active Apixaban 5 MG Oral Tablet (Eliquis) Take 1 Tablet by mouth in the morning and 1 Tablet before bedtime. Active metoprolol succinate XL 12.5 MG OR TB24 Take 0.5 Tablets by mouth in the morning and 0.5 Tablets before bedtime. Active Hospital, Clinic, or Other Facility Administered Medication Ordered Dose Route Frequency Start Date End Date Status Albuterol Sulfate (Proventil) (2.5 MG/3ML) 0.083% inhalation solution 2.5 mgIndications:Shortness of breath,History of asthma 2.5 mg NEBULIZER ONCE PRN 01/07/2023 01/07/2024 Active documented as of this encounter (statuses as of 08/21/2023) Active Problems Problem Noted Date Diagnosed Date [...] start lantus/novolog-refer MTM----, Psychiatrist. Sees Dr Sanders-Lawrence @[facility] [phone] IBS (irritable bowel syndrome) Stress incontinence Type 2 diabetes mellitus wit h hemoglobin A1c goal of less than 8.0% Overview: ICD-10 update of inactive term Myasthenia gravis Overview: 1999. Dx . Vocal cords. ENT in [facility]. Chronic cough Central serous retinopathy Productive cough Overview: chronic Major depression in partial remission documented as of this encounter (statuses as of 08/21/2023) Resolved Problems Problem Noted Date Diagnosed Date [...] as of this encounter (statuses as of 08/21/2023) Immunizations Name Administration Dates Next Due COVID-19 mRNA, LNP-s, No Pre serve, 2-Dose Series ([employer]) 09/21/2020,05/22/2020 COVID-19, MRNA-LNP, 23-24, P F, 30 MCG/0.3 mL, 12 YRS AND ABOVE, IM ([employer]) 01/07/2023 Covid-19, Mrna, Lnp-s, Pf, B ivalent, 30 Mcg, IM, 12 yrs and above ([employer]) 05/09/2022 Pneumococcal Conjugate Vaccine, 20-valent (Prevn ar20) [...] Telephone Encounter - Tommie Sanchez OSA - 08/21/2023 8:33 AM EDT [facility] Engagement Attempt Engagement: Engagement Attempt 1: Unable to contact Engagement Attempt 2: Unable to contact Engagement Attempt 3: No data was found Home Information: No data was found Advance Care Planning (ACP): No data was found Has Living Will or Advance Directive: No data was found Anticipated Sub-Program: Focused Care Management (3-9 months) Confirmation of Sub-Program Type (by care steam engineer): No data was found Handoff Information: Current care team notified via: No data was found Current telemonitoring equipment: No data was found 08/20-lmom Looking at musa 08/27 documented in this encounter Plan of Treatment Upcoming Encounters Date Type Department Care Team (Late st Contact Info) Description 08/25/2023 10:20 AM EDT Pharmacy Family Practice 65 [facility], [address] [place] [address] College, Pharmacist [address] [place] [address] 08/25/2023 10:40 AM EDT Office Visit Family Practice 65 [facility] 293 [place] [address] Aviva Rossi, DO 293 [place] [address] 09/16/2023 9:40 AM EDT Office Visit Family Practice 65 [facility] 293 [place] [address] Aviva Rossi, DO 293 [place] [address] 09/16/2023 11:15 AM EDT Imaging Radiology [address] [place] [address] 10/01/2023 10:30 AM EDT Office Visit Cardiology, [facility] [address] [place] [address] Shaw Hickey, DO [address] [place] [address] 10/24/2023 10:55 AM EDT Hospital Encounter OR [facility], Operating Room [facility] [address] [place] [address] Jc Palafox, DO [address] [place] [address] 10/24/2023 10:55 AM EDT - 10/24/2023 11:20 AM EDT Surgery OR [facility], Operating Room [facility] [address] [place] [address] Jc Palafox, DO [address] [place] [address] INJECTION SPINE LUMBAR OR SACRAL 11/11/2023 1:00 PM EDT Nurse Only Ancillary [address] [place] 293 [place] [address] College, Nurse Annual Wellness Visit [address] [facility] 293 [place] [address] Scheduled Procedures Name Priority Associated Diagnoses Date/Ti [...] 02/02/2014, Additional history exists Colonoscopy 02/06/2028 02/05/2023, 0610/2022, 11/26/2013 Colorectal Cancer Screening 02/06/2028 DXA Scan [...] and were consensually agreed upon. Care Teams Trip Motor Operator Relationship Specialty Start Date End Date Aviva Rossi DO [address] [place] [address] PCP - General Family Medicine 05/09/22 documented as of this encounter
--- OUTSIDE RECORDS SUMMARY | 2023-09-06 05:59 | External Medical Summary | Summary of Care ---
Author Name Unknown Organization [facility] Address [address] [place] [address] Phone [phone] Care Team Providers Care Circle Edger Name Role Phone Aviva Rossi DO Primary Care Provider Reason for Visit * Reason Onset Date Comments [facility]: Screening 08/20/2023 Encounter Details Date Type Department Care Team (Late st Contact Info) Description 08/20/2023 Telephone [facility], [facility] [address] [facility] [place] [address] [facility], Nurse [facility] [address] [facility] [place] [id number] [facility]: Screening Allergies Active Allergy Reactions Criticality Noted Date Comments Codeine 11/20/2012 Nausea and vomiting Lisinopril 06/12/2015 ?cough Penicillin G 11/20/2012 Hives Hydrocodone-Acetaminophen 11/20/2012 Nausea and vomiting documented as of this encounter (statuses as of 08/20/2023) Medications Medication Sig Dispensed Refills Start Date [...] taking 30 units., Reported on 06/17/2023 Pen [place] 316" 31G X 5 MM Use daily to inject insulin 4 times daily 400 Each 1 11/27/2022 Active Insulin Glargine Solostar 100 UNIT/ML Subcutaneous Solution Pen-injectorIndicat ions:Diabetes mellitus with peripheral vascular disease (HCC),Type 2 diabetes mellitus with hemoglobin A1c goal of less than 8.0% ([facility]) Titrate down per titration schedule as [...] as of this encounter (statuses as of 08/20/2023) Active Problems Problem Noted Date Diagnosed Date [...] start lantus/novolog-refer MTM----, Psychiatrist. Sees Dr Sanders[facility]Lawrence @[facility] [phone] IBS (irritable bowel syndrome) Stress incontinence Type 2 diabetes mellitus wit h hemoglobin A1c goal of less than 8.0% Overview: ICD-10 update of inactive term Myasthenia gravis Overview: 1999. Dx . Vocal cords. ENT in [facility]. Chronic cough Central serous retinopathy Productive cough Overview: chronic Major depression in partial remission documented as of this encounter (statuses as of 08/20/2023) Resolved Problems Problem Noted Date Diagnosed Date [...] as of this encounter (statuses as of 08/20/2023) Immunizations Name Administration Dates Next Due COVID-19 mRNA, LNP-s, No Pre serve, 2-Dose Series ([employer]) 09/21/2020,05/22/2020 COVID-19, MRNA-LNP, 23-24, P F, 30 MCG/0.3 mL, 12 YRS AND ABOVE, IM ([employer]) 01/07/2023 Covid-19, Mrna, Lnp-s, Pf, B ivalent, 30 Mcg, IM, 12 yrs and above ([employer]) 05/09/2022 Pneumococcal Conjugate Vaccine, 20-valent (Prevn ar20) [...] encounter Miscellaneous Notes * Telephone Encounter - Nicci Chowdary LPN - 08/20/2023 1:36 PM EDT Lisa Gamboa was referred as a potential candidate for enrollment for [facility]. A review of this chart was completed and: Lisa meets criteria for [facility]. Jump to Initiation Referring care team was notified via : Epic communication documented in this encounter Plan of Treatment Upcoming Encounters Date Type Department Care Team (Late st Contact Info) Description 08/25/2023 10:20 AM EDT Pharmacy Family Practice 65 [facility] 293 [place] [address] College, Pharmacist [address] [place] [address] 08/25/2023 10:40 AM EDT Office Visit Family Practice [address] [place], [place] [address] Aviva Rossi, DO 293 [facility], [place] [address] 09/16/2023 9:40 AM EDT Office Visit Family Practice 65 [facility] 293 [facility], [place] [address] Aviva Rossi, DO 293 [facility], [place] [address] 09/16/2023 11:15 AM EDT Imaging Radiology [address] [place] [address] 10/01/2023 10:30 AM EDT Office Visit Cardiology, [facility] [address] [place] [address] Shaw Hickey, DO [address] [place] [address] 10/24/2023 10:55 AM EDT Hospital Encounter OR [facility], Operating Room [facility] [address] [place] [address] Jc Palafox, DO [address] [place] [phone] 10/24/2023 10:55 AM EDT - 10/24/2023 11:20 AM EDT Surgery OR [facility], Operating Room [facility] [address] [place] [address] Jc Palafox, DO [address] [place] [address] INJECTION SPINE LUMBAR OR SACRAL 11/11/2023 1:00 PM EDT Nurse Only Ancillary 65 [facility] 293 [facility], [place] [address] College, Nurse Annual Wellness Visit [address] [facility], [place] [address] Scheduled Procedures Name Priority Associated Diagnoses Date/Ti [...] and were consensually agreed upon. Care Teams Circle Edger Relationship Specialty Start Date End Date Aviva Rossi DO [address] [place] [address] PCP - General Family Medicine 05/09/22 documented as of this encounter
--- OUTSIDE RECORDS SUMMARY | 2023-09-06 05:59 | External Medical Summary ---
Author Name Unknown Address Unknown Organization K01:[facility] [place] [address] [place] [address] Laboratory Report Ordering Provider Test Date Status MURPHY MCGOWAN 08/25/2023 13:00:41 Final Observation Date Value Abnormality Reference (Units ) Status BUN 08/25/2023 13:00:41 37 Above high normal 6-20 (mg/dL) Final Creatinine 08/25/2023 13:00:41 1.0 0.5-1.0 (mg/dL) Final Glomerular filtration rate/1.73 sq M.predicted [Volume Rate/Area] in Serum, Plasma or Blood by Creatinine-based formula (CKD-EPI) 08/25/2023 13:00:41 59 Below low normal >=60 (mL/min) Final eGFR is calculated based on the CKD-EPI 2020 equation Sodium 08/25/2023 13:00:41 138 135-146 (m mol/L) Final Potassium 08/25/2023 13:00:41 4.7 3.5-5.1 (m mol/L) Final Cl 08/25/2023 13:00:41 101 98-107 (mm ol/L) Final CO2 08/25/2023 13:00:41 26 22-32 (mmo l/L) Final Anion gap 08/25/2023 13:00:41 11 7-15 (mmol /L) Final Glucose 08/25/2023 13:00:41 118 70-120 (mg /dL) Final Calcium 08/25/2023 13:00:41 9.6 8.4-10.2 ( mg/dL) Final Performing Location [facility] [place] - [address] [place] [address]
--- OUTSIDE RECORDS SUMMARY | 2023-09-06 05:59 | External Medical Summary | Summary of Care ---
Author Name Unknown Organization [facility] Address [address] [place] [address] Phone [phone] Care Team Providers Care Director Dance Name Role Phone Aviva Rossi DO Primary Care Provider Encounter Details Date Type Department Care Team (Late st Contact Info) Description 08/08/2023 Population Health External Data Unspecified Department Allergies Active Allergy Reactions Criticality Noted Date [...] TABLET BY MOUTH EVERY MORNING 200 Tablet 09/03/2022 10/22/19 Active Levothyroxine Sodium 50 MCG Oral Tablet (Levoxyl)Indication s:Acquired hypothyroidism TAKE 1 TABLET BY MOUTH DAILY AT LEAST 30 MINUTES PRIOR TO FIRST MEAL OF THE DAY OR OTHER MEDICATIONS 100 Tablet 08/06/2022 10/22/19 24 Active Atorvastatin Calcium 20 MG Oral Tablet (Lipitor) TAKE ONE TABLET BY MOUTH DAILY 100 Tablet 08/06/2022 10/22/19 24 Active Insulin Syringe-Needle U-100 30G X 5/16" 0.3 ML USE TO INJECT TWO TO THREE TIMES DAILY 300 Each 07/15/2022 10/25/19 24 Active NovoLOG FlexPen 100 [...] taking 30 units., Reported on 06/17/2023 Pen [place] 316" 31G X 5 MM Use daily to inject insulin 4 times daily 400 Each 1 11/27/2022 Active Insulin Glargine Solostar 100 UNIT/ML Subcutaneous Solution Pen-injectorIndicat ions:Diabetes mellitus with peripheral vascular disease (HCC),Type 2 diabetes mellitus with hemoglobin A1c goal of less than 8.0% ([facility]) Titrate down per titration schedule as [...] se 08/06/2022 Other specified peripheral vascular diseases 03/ Microalbuminuric diabetic nephropathy 04/28/2014 ADVANCE DIRECTIVE INFORMATION [...] start lantus/novolog-refer MTM----, Psychiatrist. Sees Dr Witt @[facility] [phone] IBS (irritable bowel syndrome) Stress incontinence Type 2 diabetes mellitus wit h hemoglobin A1c goal of less than 8.0% Overview: ICD-10 update of inactive term Myasthenia gravis Overview: 1999. Dx . Vocal cords. ENT in [facility]. Chronic cough Central serous retinopathy Productive [...] mRNA, LNP-s, No Pre serve, 2-Dose Series ([employer]) 09/21/2020,05/22/2020 COVID-19, MRNA-LNP, 23-24, P F, 30 [...] AM EDT Office Visit Family Practice [facility] [address] [facility] Ross[facility] [address] 09/16/2023 11:15 AM EDT Imaging Radiology [address] [place] [address] 10/24/2023 10:55 AM EDT Hospital Encounter OR OSS, Operating Room OSS [address] [place] [phone] Jc Palafox DO [address] [place] [address] 10/24/2023 10:55 AM EDT - 10/24/2023 11:20 AM EDT Surgery OR OSS, Operating Room OSS [address] [place] [address] Jc Palafox, [address] [place] [phone] INJECTION SPINE LUMBAR OR SACRAL 11/11/2023 1:00 PM EDT Nurse Only Ancillary 65 [facility] [address] College, Nurse Annual Wellness Visit 65 [address] [address] Scheduled Procedures Name Priority Associated Diagnoses Date/Ti [...] and were consensually agreed upon. Care Teams Director Dance Relationship Specialty Start Date End Date Aviva Rossi DO 293 [place] [address] PCP - General Family Medicine 05/09/22 documented as of this encounter
--- OUTSIDE RECORDS SUMMARY | 2023-09-06 05:59 | External Medical Summary | Summary of Care ---
Author Name Unknown Organization [facility] Address [address] [place] [address] Phone [phone] Care Team Providers Care Clearing Hand Name Role Phone Aviva Rossi DO Primary Care Provider [phone] Reason for Visit * Reason Onset Date Comments Appointment 08/20/2023 Encounter Details Date Type Department Care Team (Late st Contact Info) Description 08/20/2023 Telephone [facility], [place] [address] [place] [address] Services, Scheduling [address] [place] [address] Appointment (//) Allergies Active Allergy Reactions Criticality [...] taking 30 units., Reported on 06/17/2023 Pen [place] 316" 31G X 5 MM Use daily to inject insulin 4 times daily 400 Each 1 11/27/2022 Active Insulin Glargine Solostar 100 UNIT/ML Subcutaneous Solution Pen-injectorIndicat ions:Diabetes mellitus with peripheral vascular disease (HCC),Type 2 diabetes mellitus with hemoglobin A1c goal of less than 8.0% ([facility]) Titrate down per titration schedule as [...] A1c goal of less than 8.0% ([facility]),Hypertension goal BP (blood pressure) < 140/90 [...] start lantus/novolog-refer MTM----, Psychiatrist. Sees Dr Sanders-Lawrence @[facility] [phone] IBS (irritable bowel syndrome) Stress incontinence Type 2 diabetes mellitus wit h hemoglobin A1c goal of less than 8.0% Overview: ICD-10 update of inactive term Myasthenia gravis Overview: 1999. Dx . Vocal cords. ENT in [facility]. Chronic cough Central serous retinopathy Productive [...] mRNA, LNP-s, No Pre serve, 2-Dose Series (L2) 09/21/2020,05/22/2020 COVID-19, MRNA-LNP, 23-24, P F, 30 MCG/0.3 mL, 12 YRS AND ABOVE, IM ([employer]-Comirnaty) 01/07/2023 Covid-19, Mrna, Lnp-s, Pf, B ivalent, 30 Mcg, IM, 12 yrs and above (L2) 05/09/2022 Pneumococcal Conjugate Vaccine, 20-valent (Prevn ar20) [...] Telephone Encounter - Tommie Sanchez OSA - 08/20/2023 3:15 PM EDT [facility] Engagement Attempt Engagement: Engagement Attempt 1: Unable to contact Engagement Attempt 2: No data was found Home Information: No data was found Advance Care Planning (ACP): No data was found Has Living Will or Advance Directive: No data was found Anticipated Sub-Program: Focused Care Management (3-9 months) Confirmation of Sub-Program Type (by care team assembly line machine operator): No data was found Handoff Information: Current care team notified via: No data was found Current telemonitoring equipment: No data was found 08/19-lmom Looking at musa 08/27 documented in this encounter Plan of Treatment Upcoming Encounters Date Type Department Care Team ([facility] st Contact Info) Description 08/21/2023 1:15 PM EDT Scheduled Telephone [facility], [facility] 132 [facility] [place] [address] Coordinator, [facility] 132 [facility] [place] [address] 08/25/2023 10:20 AM EDT Pharmacy Family Practice 65 [facility] 293 [place] [address] College, Pharmacist [address] [place] [address] 08/25/2023 10:40 AM EDT Office Visit Family Practice 65 [facility] 293 [place] [phone] Aviva Rossi, DO 293 [place] [address] 09/16/2023 9:40 AM EDT Office Visit Family Practice 65 [facility] 293 [place] [address] Aviva Rossi, DO 293 [place] [address] 09/16/2023 11:15 AM EDT Imaging Radiology [facility] 132 [facility] [place] [address] 10/01/2023 10:30 AM EDT Office Visit Cardiology, [facility] [address] [place] [address] Shaw Hickey, DO [address] [place] [address] 10/24/2023 10:55 AM EDT Hospital Encounter OR [facility], Operating Room [facility] [address] [place] [phone] Jc Palafox, DO [address] [place] [address] 10/24/2023 10:55 AM EDT - 10/24/2023 11:20 AM EDT Surgery OR [facility], Operating Room [facility] [address] [place] [address] Jc Palafox, [address] [place] [address] INJECTION SPINE LUMBAR OR SACRAL 11/11/2023 1:00 PM EDT Nurse Only Ancillary [address] [place] 293 [place] [address] College, Nurse Annual Wellness Visit 65 [facility] 293 [facility], [place] [address] Scheduled Procedures Name Priority Associated Diagnoses Date/Ti [...] and were consensually agreed upon. Care Teams Clearing Hand Relationship Specialty Start Date End Date Aviva Rossi DO 293 [facility] [place] [address] PCP - General Family Medicine 05/09/22 documented as of this encounter
--- OUTSIDE RECORDS SUMMARY | 2023-09-06 05:59 | External Medical Summary | Summary of Care ---
Author Name Unknown Organization [facility] Address [address] [place] [address] Phone [phone] Care Team Providers Care Dba Name Role Phone Aviva Rossi DO Primary Care Provider Encounter Details Date Type Department Care Team (Late st Contact Info) Description 08/12/2023 Population Health External Data Unspecified Department Allergies [...] taking 30 units., Reported on 06/17/2023 Pen [place] 316" 31G X 5 MM Use daily to inject insulin 4 times daily 400 Each 1 11/27/2022 Active Insulin Glargine Solostar 100 UNIT/ML Subcutaneous Solution Pen-injectorIndicat ions:Diabetes mellitus with peripheral vascular disease (HCC),Type 2 diabetes mellitus with hemoglobin A1c goal of less than 8.0% ([facility]) Titrate down per titration schedule as starting [...] start lantus/novolog-refer MTM----, Psychiatrist. Sees Dr Witt @[facility] [phone] IBS (irritable bowel syndrome) Stress incontinence Type 2 diabetes mellitus wit h hemoglobin A1c goal of less than 8.0% Overview: ICD-10 update of inactive term Myasthenia gravis Overview: 1999. Dx . Vocal cords. ENT in [facility]. Chronic cough Central serous retinopathy Productive [...] mRNA, LNP-s, No Pre serve, 2-Dose Series ([employer]) 09/21/2020,05/22/2020 COVID-19, MRNA-LNP, 23-24, P F, 30 [...] 65 [facility] [address] Aviva Rossi DO [facility] [address] 09/16/2023 11:15 AM EDT Imaging Radiology [address] [place] [address] 10/24/2023 10:55 AM EDT Hospital Encounter OR OSS, Operating Room OSS [address] [place] [phone] Jc Palafox DO [address] [place] [address] 10/24/2023 10:55 AM EDT - 10/24/2023 11:20 AM EDT Surgery OR OSS, Operating Room OSS [address] [place] [address] Jc Palafox, [address] [place] [phone] INJECTION SPINE LUMBAR OR SACRAL 11/11/2023 1:00 PM EDT Nurse Only Ancillary 65 [facility] 293 [facility] [address] College, Nurse Annual Wellness Visit [address] [address] Scheduled Procedures Name Priority Associated Diagnoses Date/Ti [...] and were consensually agreed upon. Care Teams Dba Relationship Specialty Start Date End Date Aviva Rossi DO 293 [place] [address] PCP - General Family Medicine 05/09/22 documented as of this encounter
--- OUTSIDE RECORDS SUMMARY | 2023-09-06 05:59 | External Medical Summary ---
Author Name Unknown Address Unknown Organization K01:[facility] [place] - [address] [facility] [address] Laboratory Report Ordering Provider Test Date Status MURPHY MCGOWAN 08/25/2023 13:00:41 Final Observation Date Value Abnormality Reference (Units ) Status WBC, Total 08/25/2023 13:00:41 11.09 Above high normal 4.00-10.80 (K/uL) Final RBC 08/25/2023 13:00:41 4.79 3.85-5.15 (M/uL) Final Hemoglobin 08/25/2023 13:00:41 13.7 12.0-15.3 (g/dL) Final HCT 08/25/2023 13:00:41 42.5 36.0-45.2 (%) Final MCV 08/25/2023 13:00:41 88.7 81.5-97.5 (fL) Final MCH 08/25/2023 13:00:41 28.6 27.0-34.0 (pg) Final MCHC 08/25/2023 13:00:41 32.2 32.0-36.0 (g/dL) Final RDW 08/25/2023 13:00:41 13.0 11.5-15.5 (%) Final Platelets 08/25/2023 13:00:41 252 140-400 (K/uL) Final MPV 08/25/2023 13:00:41 10.9 6.6-11.1 (fL) Final Nucleated erythrocytes/100 leukocytes [Ratio] in Blood by Automated count 08/25/2023 13:00:41 0 <=0 (/100 WBCs) Final Performing Location [facility] [place] - [address] [place] [address]
--- OUTSIDE RECORDS SUMMARY | 2023-09-06 05:59 | External Medical Summary | Summary of Care ---
Author Name Unknown Organization [facility] Address [address] [place] [address] Phone [phone] Care Team Providers Care Target Aircraft Technician Name Role Phone Aviva Rossi DO Primary Care Provider [phone] Reason for Visit * Reason Onset Date Comments Appointment 08/21/2023 Encounter Details Date Type Department Care Team (Late st Contact Info) Description 08/21/2023 Telephone [facility], [place] [address] [place] [address] Services, Scheduling [address] [place] [address] Appointment (//) Allergies Active Allergy Reactions Criticality [...] taking 30 units., Reported on 06/17/2023 Pen [place] 316" 31G X 5 MM Use daily to inject insulin 4 times daily 400 Each 1 11/27/2022 Active Insulin Glargine Solostar 100 UNIT/ML Subcutaneous Solution Pen-injectorIndicat ions:Diabetes mellitus with peripheral vascular disease (HCC),Type 2 diabetes mellitus with hemoglobin A1c goal of less than 8.0% ([facility]) Titrate down per titration schedule as starting [...] 0.5 Tablets before bedtime. Active Losartan Potassium 100 MG Oral Tablet (Cozaar)Indications :Type 2 diabetes mellitus with hemoglobin A1c goal of less than 8.0% ([facility]),Hypertension goal BP (blood pressure) < 140/90 Take 0.5 Tablets by mouth in the morning. 08/21/2023 Active Hospital, Clinic, or Other Facility Administered [...] start lantus/novolog-refer MTM----, Psychiatrist. Sees Dr Sanders-Lawrence @[facility] [phone] IBS (irritable bowel syndrome) Stress incontinence Type 2 diabetes mellitus wit h hemoglobin A1c goal of less than 8.0% Overview: ICD-10 update of inactive term Myasthenia gravis Overview: 1999. Dx . Vocal cords. ENT in [facility]. Chronic cough Central serous retinopathy [...] mRNA, LNP-s, No Pre serve, 2-Dose Series ([employer]) 09/21/2020,05/22/2020 COVID-19, MRNA-LNP, 23-24, P F, 30 MCG/0.3 mL, 12 YRS AND ABOVE, IM ([employer]-Comirnaty) 01/07/2023 Covid-19, Mrna, Lnp-s, Pf, B ivalent, [...] Encounter - Tommie Sanchez OSA - 08/21/2023 12:43 PM EDT [facility] Engagement Attempt Engagement: Engagement Attempt 1: Unable to contact Engagement Attempt 2: Unable to contact Engagement Attempt 3: Contacted - Declined home-based services Declined Reason Patient declined program enrollment Episode closed Declined reason: No data was found Home Information: No data was found Advance Care Planning (ACP): No data was found Has Living Will or Advance Directive: No data was found Anticipated Sub-Program: Focused Care Management (3-9 months) Confirmation of Sub-Program Type (by care garment steamer): No data was found Handoff Information: Current care team notified via: No data was found Current telemonitoring equipment: No data was found ' documented in this encounter Plan of Treatment Upcoming Encounters Date Type Department Care Team (Late st Contact Info) Description 08/21/2023 1:15 PM EDT Scheduled Telephone [facility], [address] [place] [address] Coordinator, [address] [place] [address] 08/25/2023 10:20 AM EDT Pharmacy Family Practice 65 [facility] 293 [facility] [place] [address] College, Pharmacist [address] [place] [address] 08/25/2023 10:40 AM EDT Office Visit Family Practice 65 [facility] 293 [facility], [place] [address] Aviva Rossi, DO 293 [place] [address] 09/16/2023 9:40 AM EDT Office Visit Family Practice 65 [facility] 293 [facility], [place] [address] Aviva Rossi, DO 293 [place] [address] 09/16/2023 11:15 AM EDT Imaging Radiology [address] [place] [address] 10/01/2023 10:30 AM EDT Office Visit Cardiology, [facility] [address] [place] [address] Shaw Hickey, DO 132 [facility] [place] [address] 10/24/2023 10:55 AM EDT Hospital Encounter OR [facility], Operating Room [facility] [address] [place] [phone] Jc Palafox, DO [address] [place] [address] 10/24/2023 10:55 AM EDT - 10/24/2023 11:20 AM EDT Surgery OR [facility], Operating Room [facility] [address] [place] [address] Jc Palafox, [address] [place] [phone] INJECTION SPINE LUMBAR OR SACRAL 11/11/2023 1:00 PM EDT Nurse Only Ancillary [address] [facility] [place] 293 [facility] [place] [address] College, Nurse Annual Wellness Visit 65 [address] [facility] 293 [facility] [place] [address] Scheduled Procedures Name Priority Associated Diagnoses Date/Ti [...] and were consensually agreed upon. Care Teams Target Aircraft Technician Relationship Specialty Start Date End Date Aviva Rossi DO 293 [facility] [place] [address] PCP - General Family Medicine 05/09/22 documented as of this encounter
--- OUTSIDE RECORDS SUMMARY | 2023-09-06 05:59 | External Medical Summary ---
Author Name Unknown Address Unknown Organization : Laboratory Report Ordering Provider Test Date Status SHAVONNE HSUSUNSHINE 08/25/2023 11:54:00 Final Observation Date Value Abnormality Reference (Units ) Status Color of Urine by Auto 08/25/2023 11:54:00 Other Abnormal Light Yellow, Yellow Final Clarity, Urine 08/25/2023 11:54:00 Cloudy Abnormal Clear Final Glucose [Mass/volume] in Urine by Automated test strip 08/25/2023 11:54:00 Negative Negative (mg/dL) Final Bilirubin.total [Presence] in Urine by Automated test strip 08/25/2023 11:54:00 Negative Negative Final Ketones [Mass/volume] in Urine by Automated test strip 08/25/2023 11:54:00 Negative Negative (mg/dL) Final Specific gravity, Urine 08/25/2023 11:54:00 1.015 1.003-1.030 Final Hemoglobin [Presence] in Urine by Automated test strip 08/25/2023 11:54:00 Moderate Abnormal Negative Final pH, Urine 08/25/2023 11:54:00 5.5 5.0, 5.5, 6.0, 6.5, 7.0, 7.5 (units) Final Protein [Mass/volume] in Urine by Automated test strip 08/25/2023 11:54:00 Negative Negative (mg/dL) Final Urobilinogen, Urine 08/25/2023 11:54:00 0.2 0.2, 1.0 (mg/dL) Final Nitrite [Presence] in Urine by Automated test strip 08/25/2023 11:54:00 Positive Abnormal Negative Final Leukocyte esterase [Presence] in Urine by Automated test strip 08/25/2023 11:54:00 Moderate Abnormal Negative Final Performing Location
--- OUTSIDE RECORDS SUMMARY | 2023-09-06 05:59 | External Medical Summary ---
Author Name Unknown Address Unknown Organization K01:[facility] [place] [facility] [address] [facility] [address] Laboratory Report Ordering Provider Test Date Status SHAVONNE HSUTAYLORDIVINE 08/25/2023 13:00:41 Final Observation Date Value Abnormality Reference (Units ) Status Albumin 08/25/2023 13:00:41 4.5 3.8-5.0 (g/dL) Final AST (Aspartate aminotransferase) 08/25/2023 13:00:41 14 10-35 (U/L) Final Alk Phos 08/25/2023 13:00:41 59 35-130 (U/L) Final ALT (Alanine aminotransferase) 08/25/2023 13:00:41 17 10-35 (U/L) Final Bilirubin, Total 08/25/2023 13:00:41 0.7 <=1.2 (mg/dL) Final Bilirubin, Direct 08/25/2023 13:00:41 <0.2 0.0-0.3 (mg/dL) Final Protein 08/25/2023 13:00:41 7.1 6.0-8.3 (g/dL) Final Performing Location [facility] [place] - [address] [place] [address]
[2023-09-06 06:50] LABS: BUN Creatinine Ratio 27.4 (10-20); Calcium 8.8 mg/dl (8.6-10.3); Creatinine Clr Calc Pharmacy 59.2 ml/min; Est GFR (Non-African American) 49.2 ml/min; Potassium 4.9 mmol/L (3.5-5.1)
[2023-09-06 06:52] LABS: Hematocrit (blood only) 34.9 % (37.0-47.0); Hemoglobin 11.2 g/dl (12.0-16.0); Mean Corpuscular Hemoglobin 28.7 pg (25.0-34.0); Mean Corpuscular Hgb Conc 32.1 g/dL (32.0-36.0); Mean Corpuscular Volume 89.5 fL (80.0-100.0); Mean Platelet Volume 10.4 fL (9.4-12.4); Platelet Count 266 K/uL (130-400); RDW Coefficient of Variation 12.9 % (11.5-14.5); RDW Standard Deviation 42.3 fL (36.4-46.3); White Blood Count 8.92 K/ul (4.8-10.8)
[2023-09-06] MEDS: METOPROLOL SUCC 25MG EXT REL TAB PO SCH (11:13)
--- NOTE | 2023-09-06 15:20 | Hospitalist Progress Note ---
Date of Service September 06, 2023 Assessment & Plan (1) ARF (acute renal failure): Plan: Generalized weakness Recent UTI Deconditioning Acute kidney injury --CXR:No acute cardiopulmonary findings. . No significant change in appearance of the chest. -- BioFire negative Reviewed outpatient urine culture: Urine culture from August 2023 grew Enterobacter Patient states that she is to finish her Bactrim course for 2 more days Continue IV cefepime to complete antibiotic course PT OT, fall precaution PT recommends rehab placement Case management to help with discharge planning Losartan, lasix (Uses only PRN at home per Pt) on hold for now Renal function improved Avoid nephrotoxic agents as able Discontinue IV fluids Cr 1.1 today Chronic diastolic heart failure EF 60 to 65% TTE 2023 Monitor volume status Resume home diuretics as able Atrial fibrillation Was started on metoprolol succinate 12.5 mg twice daily recently Patient concerned about possible metoprolol intolerance Will decrease metoprolol to 12.5 mg daily On Eliquis for anticoagulation Advised to follow-up with cardiology on discharge Hypertension Continue metoprolol Resume losartan as able Monitor BP CATHERINE on CPAP DM II Last HbA1c 6.8 Continue insulin while hospitalized Monitor BGs Hypothyroidism Normal TSH Continue levothyroxine Endometrial cancer S/P surgery ADHD, anxiety/mood disorder Past tobacco abuse Continue home medications DVT Px: Eliquis Code Status Full code Disposition Currently patient not interested in rehab placement Will readdress tomorrow Admission and Anticipated Discharge Date Admission Date: September 05, 2023 Subjective Patient is seen and examined at bedside Doing well today Eager to get discharged Expresses concern for possible metoprolol intolerance Denies any chest pain, dyspnea, dizziness, abdominal pain No other complaints Review of Systems Review of Systems: All systems reviewed & are unremarkable except as noted in Subjective Physical Exam Physical Exam: Physical Exam: Vitals signs as noted above General Appearance:Obese, no apparent distress Head: normocephalic, Atraumatic Eyes: normal inspection, EOMI Neck: supple, Trachea midline Respiratory/Chest: Normal breath sounds, CTA, No accessory muscle use Cardiovascular: S1, S2, No murmur Abdomen/GI:Soft, Non tender, Bowel sounds present Extremities/Musculoskeletal:normal inspection, Trace edema Neurologic/Psych:AAOX3, grossly no focal neurological deficits Skin: normal color, warm Results & Data Results & Data Vital Signs (Past 12 Hours) Vital Signs Temp Pulse Resp BP Pulse Ox O2 Del Method 09/06/23 14:59 36.5 C 64 16 153/70 H 95 Room Air 09/06/23 10:10 Room Air 09/06/23 07:45 36.3 C L 56 L 17 127/72 99 Room Air Laboratory Results Short CBC 09/06/23 Range/Units 06:05 WBC 8.92 (4.8-10.8) K/ul Hgb 11.2 L (12.0-16.0) g/dl Hct 34.9 L (37.0-47.0) % Plt Count 266 (130-400) K/uL BMP 09/06/23 06:05 Sodium 133 L Potassium 4.9 Chloride 104 Carbon Dioxide 24 BUN 31 H Creatinine 1.13 Glucose 122 H Calcium 8.8
[2023-09-06] MEDS: CEFEPIME 2,000 MG in SYRINGE 0 ML IV SCH (16:10)
[2023-09-07] MEDS: COUGH DROP (SUGAR FREE) LOZ 24 LOZ/1 BOX BUCCAL ONE (06:00)
[2023-09-07 06:49] LABS: Hematocrit (blood only) 36.1 % (37.0-47.0); Hemoglobin 11.6 g/dl (12.0-16.0); Mean Corpuscular Hemoglobin 28.7 pg (25.0-34.0); Mean Corpuscular Hgb Conc 32.1 g/dL (32.0-36.0); Mean Corpuscular Volume 89.4 fL (80.0-100.0); Mean Platelet Volume 10.4 fL (9.4-12.4); Platelet Count 274 K/uL (130-400); RDW Coefficient of Variation 12.7 % (11.5-14.5); RDW Standard Deviation 41.5 fL (36.4-46.3); Red Blood Count 4.04 M/uL (4.20-5.40); White Blood Count 8.73 K/ul (4.8-10.8)
[2023-09-07 07:17] LABS: BUN Creatinine Ratio 30.9 (10-20); Calcium 9.6 mg/dl (8.6-10.3); Creatinine Clr Calc Pharmacy 60.8 ml/min; Est GFR (African American) 58.9 ml/min; Est GFR (Non-African American) 50.8 ml/min; Potassium 5.1 mmol/L (3.5-5.1)
[2023-09-07] MEDS: LOSARTAN POTASSIUM 50 MG TAB PO SCH (10:17)
[2023-09-07] MEDS: FUROSEMIDE 40 MG TAB PO SCH (10:17)
--- NOTE | 2023-09-07 14:48 | Hospitalist Progress Note ---
Date of Service September 07, 2023 Assessment & Plan (1) ARF (acute renal failure): Plan: Generalized weakness Recent UTI Deconditioning Acute kidney injury --CXR:No acute cardiopulmonary findings. . No significant change in appearance of the chest. -- BioFire negative Reviewed outpatient urine culture: Urine culture from August 2023 grew Enterobacter Patient states that she is to finish her Bactrim course for 2 more days Continue IV cefepime to complete antibiotic course PT OT, fall precaution PT recommends rehab placement Case management to help with discharge planning Renal function improved Avoid nephrotoxic agents as able Discontinue IV fluids JOHN resolved Currently not interested in rehab Chronic diastolic heart failure EF 60 to 65% TTE 2023 Monitor volume status Resume Lasix Atrial fibrillation Possible tachybradycardia syndrome Was started on metoprolol succinate 12.5 mg twice daily recently Patient concerned about possible metoprolol intolerance Will decrease metoprolol to 12.5 mg daily On Eliquis for anticoagulation Will request cardiology evaluation and moved to a monitored bed given intermittent bradycardia Hypertension Continue metoprolol Resume losartan at reduced dose 50 mg daily Monitor BP CATHERINE on CPAP DM II Last HbA1c 6.8 Continue insulin while hospitalized Monitor BGs Hypothyroidism Normal TSH Continue levothyroxine Endometrial cancer S/P surgery ADHD, anxiety/mood disorder Past tobacco abuse Continue home medications DVT Px: Eliquis Code Status Full code Disposition Currently patient not interested in rehab placement Case management to help with discharge planning Admission and Anticipated Discharge Date Admission Date: September 05, 2023 Subjective Patient is seen and examined at bedside Reports having some chronic sacral pain No other complaints today Denies any chest pain, dyspnea, dizziness, abdominal pain States feeling better today Review of Systems Review of Systems: All systems reviewed & are unremarkable except as noted in Subjective Physical Exam Physical Exam: Physical Exam: Vitals signs as noted above General Appearance:Obese, no apparent distress Head: normocephalic, Atraumatic Eyes: normal inspection, EOMI Neck: supple, Trachea midline Respiratory/Chest: Normal breath sounds, CTA, No accessory muscle use Cardiovascular: S1, S2, No murmur Abdomen/GI:Soft, Non tender, Bowel sounds present Extremities/Musculoskeletal:normal inspection, Trace edema Neurologic/Psych:AAOX3, grossly no focal neurological deficits Skin: normal color, warm Results & Data Results & Data Vital Signs (Past 12 Hours) Vital Signs Temp Pulse Resp BP Pulse Ox O2 Del Method 09/07/23 13:30 36.5 C 65 18 130/67 98 Room Air 09/07/23 08:40 Room Air 09/07/23 07:41 36.6 C 54 L 18 147/76 H 98 Room Air Laboratory Results Short CBC 09/07/23 Range/Units 06:09 WBC 8.73 (4.8-10.8) K/ul Hgb 11.6 L (12.0-16.0) g/dl Hct 36.1 L (37.0-47.0) % Plt Count 274 (130-400) K/uL BMP 09/07/23 06:09 Sodium 135 L Potassium 5.1 Chloride 106 Carbon Dioxide 23 BUN 34 H Creatinine 1.10 Glucose 133 H Calcium 9.6
--- NOTE | 2023-09-08 08:49 | Cardiology Consultation ---
Date of Consultation September 08, 2023 Assessment & Plan (1) Generalized weakness: (2) Paroxysmal atrial fibrillation: (3) Hypertension: (4) Hyperlipidemia: (5) Diabetes mellitus, type 2: (6) Leg swelling: Plan Assessment: 68 year old female that presented with ongoing weakness since recent hospitalization for a acute UTI and new onset atrial fibrillation. Spontaneously converted to SR during that hospitalization course. Cardiology services requested due to concerns for possible "tachy-frank syndrome". 1. Generalized weakness: -Multifactorial given patient's recent hospitalization course for an acute infection, poly-pharmacy, and deconditioning. -EKG obtained at time of admission demonstrates SR with no acute ST-T wave abnormality. -Review of telemetry demonstrates no evidence of tachy-frank syndrome over night or today. Lowest recorded HR 58 bpm. Predominantly in the 60's. No profound bradycardia, no sinus pauses and no high grade heart block. -Patient feels her beta grady is the cause of her weakness and wishes to consider additional dose adjustments. currently Toprol xl 12.5mg QD. Discussed rationale for use of beta grady given her recent new onset Atrial fibrillation and grade I diastolic dysfunction. -Patient declined AM dose due to a HR of 58bpm. At this time, we will discontinue her Toprol xl. Plan is when patient is appropriate for discharge by primary team, to discharge on protracted cardiac monitoring with a ZIO monitor x 14 days. patient is to keep her scheduled OP follow up with Dr. Hickey on 10/01/23 in which results should be available at that time. Patient verbalizes understanding and is in agreement. 2. Paroxysmal Atrial fibrillation: -Diagnosed last month in the setting of an acute UTI -Remains SR on telemetry. EKG demonstrates NSR -As discussed above, will discontinue Toprol xl and recommend OP monitoring with a ZIO monitor for further evaluation. -Continue Eliquis 5mg PO BID as per current regimen. No bleeding concerns. 3. HTN: -Controlled. -Continue Losartan 50mg PO Daily. -Continue Furosemide 40mg PO Daily. -Encourage Low sodium diet. 4. HLD: -Continue Atorvastatin 20mg QD 5. Leg swelling: -In part due to diastolic dysfunction as well as likely venous insufficiency -Appears euvolemic on exam today. Continue Furosemide 40mg QD. -Encourage low sodium diet. -Labs stable including renal function and electrolytes. -Continue Losartan Case has been discussed with Dr. Thibodeaux. Further recommendations regarding plan of care as per his assessment. I spent a total of 40 minutes on the date of service in preparation, delivery, documentation of the care provided to the patient excluding any time spent in the performance of separately billed services. RICCI Velarde [facility] Supervising Physician Co-Signing Physician Notes Patient was seen and personally examined. Full assessment and plan as well outlined above. Care and management discussed and detail with advanced provider and personally endorsed 68-year-old female with paroxysmal atrial fibrillation, poor tolerance of beta- grady therapy for multiple etiologies. No profound bradycardia observed no pauses on telemetry no further atrial fibrillation Plan as discussed with patient and above will discontinue beta-grady therapy. Outpatient Zio patch monitor will be arranged to assess for both tachycardia and bradycardia If atrial fibrillation recurs may consider dofetilide versus pacemaker insertion to allow additional rate control/rhythm control Chronic anticoagulation remains indicated I spent a total of 20 minutes on the date of service in preparation, delivery, documentation of the care provided to the patient excluding any time spent in the performance of separately billed services History of Present Illness Reason for Consultation: "Possible Tachy-Frank Syndrome" Requesting Physician: [facility] hospitalist Attending Physician: Gabe Mcneill MD History of Present Illness HPI: Patient is a 68 year old female with PMHx significant for HTN, HLD, CATHERINE, DM Type 2, Hypothyroidism, depression, ADHD, IBS, chronic anemia, Vitamin b12 defi ciency, Obesity and recent hospitalization for new onset atrial fibrillation dating back to 08/14/2023 in the setting of an acute UTI. Patient had been discharged on 08/15/23 feeling her usual state of health, although vocalized hesitation regarding taking her beta grady therapy for concerns of "low heart rates" in her past. Cardiology was asked to see this patient for concerns of tachy-frank syndrome during this hospitalization because patient had presented with increased weakness. Reports that she was taking her pills as prescribed at home. EKG on admission: 09/04/2023 NSR Rate 70bpm Chest xray IMPRESSION: No acute cardiopulmonary findings. . No significant change in appearance of the chest. Patient initially was on a non-monitored floor since time of admission on 09/03, but was moved to a telemetry unit last evening. No repeat EKG noted in the system. Review of telemetry demonstrates SB/SR, lowest recorded HR was 58 bpm. No acute events overnight. patient is sitting out of bed in chair this morning. Offers no new concerns. Reports that she declined her AM metoprolol dose because her HR was 58bpm. Asymptomatic. Allergies Allergy/AdvReac Type Severity Reaction Status Date / Time penicillin G Allergy Intermediate HIVES Verified 09/04/23 19:15 codeine AdvReac Intermediate VOMITING Verified 09/04/23 19:15 hydrocodone AdvReac Intermediate Vomiting Verified 09/04/23 19:15 Home Medications Medication Instructions Recorded Confirmed Type atorvastatin 20 mg tablet 20 mg PO QAM 03/27/21 09/04/23 History bupropion HCl 100 mg tablet,12 hr 100 mg PO QAM 03/27/21 09/04/23 History sustained-release bupropion HCl 150 mg tablet,12 hr 150 mg PO QAM 03/27/21 09/04/23 History sustained-release cyanocobalamin (vitamin B-12) 1,000 mcg PO QAM 03/27/21 09/04/23 History 1,000 mcg tablet fluoxetine 60 mg tablet 60 mg PO QAM 03/27/21 09/04/23 History losartan 100 mg tablet 25 mg PO QAM 03/27/21 09/04/23 History levothyroxine 50 mcg tablet 50 mcg PO QAM 08/13/22 09/04/23 History insulin aspart U-100 100 unit/mL 1 sliding scale dose subcut TIDM 08/27/22 09/04/23 History subcutaneous solution (Novolog U-100 Insulin aspart) potassium chloride 10 mEq 10 meq PO UD PRN takes when taking 09/09/22 09/04/23 History tablet,extended release lasix famotidine 20 mg tablet (Pepcid) 20 mg PO DAILY 09/18/22 09/04/23 History insulin degludec 100 25 unit subcut DAILY 01/30/23 09/04/23 History unit-liraglutide 3.6 mg/mL(3 mL) subcutaneous pen (Xultophy 100/3.6) mirabegron 50 mg tablet,extended 50 mg PO QAM 01/30/23 09/04/23 History release 24 hr (Myrbetriq) albuterol sulfate 90 mcg/actuation 2 puff inhalation Q4H PRN 08/13/23 09/04/23 History aerosol inhaler Shortness Of Breath Or Wheezing furosemide 40 mg tablet 40 mg PO DAILY 08/13/23 09/04/23 History insulin glargine 100 unit/mL (3 4 unit subcut DAILY 08/13/23 09/04/23 History mL) subcutaneous pen (Lantus Solostar U-100 Insulin) apixaban 5 mg tablet (Eliquis) 5 mg PO BID #60 tabs 08/14/23 09/04/23 Rx metoprolol succinate 25 mg 12.5 mg (1/2 x 25 mg) PO BID #30 08/15/23 09/04/23 Rx tablet,extended release 24 hr tabs cholecalciferol (vitamin D3) 50 50 mcg PO DAILY 09/04/23 09/04/23 History mcg (2,000 unit) tablet (Vitamin D3) Patient History Medical History Chronic cough 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, 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 Hypothyroidism Myasthenia gravis "EFFECTS ONLY MY VOCAL CORDS" Arthritis Stress incontinence in female GERD (gastroesophageal reflux disease) Hx of cancer of endometrium Idiopathic hypersomnia ADHD Depression Peripheral neuropathy Hx of migraines Irregular heart beats NO CARDS Hx of sleep apnea NO DEVICE Chronic obstructive pulmonary disease H/O Surgical History History of surgery lymph node removed from forehead (benign) Hx of cataract extraction right/left History of esophagogastroduodenoscopy (EGD) H/O colonoscopy with polypectomy H/O total hysterectomy History of tooth extraction Nausea and vomiting after administration of anesthetic agent Family History Other No family history of adverse response to anesthesia Social History Smoking Status: Former smoker Tobacco Type: Cigarettes Smoking End Date: 1990; Second Hand Exposure: Yes (as a small child); Do You Dip or Chew Tobacco: No; Hx Alcohol Use: Yes Alcohol type: wine Hx Substance Use: No Preferred Language: Irish Communication Ability: Effective Waste Elimination Required: No Beliefs That Will Affect Care: None Current Living Situation: Alone Feels Safe at Home: Yes Safety Concerns: Feels Safe At This Time Assistive Devices: Cane and Walker Assistive Devices Comment: cane & glasses at bedside Review of Systems Review of Systems: All systems reviewed & are unremarkable except as noted in HPI & below Physical Exam Constitutional: + obese; no acute distress and not ill a ppearing Neck: normal visual inspection and trachea midline Respiratory: normal respiratory effort, lungs clear to auscultation Auscultation: lungs clear to auscultation bilaterally Cardiovascular: Rate/Rhythm: regular rate, regular rhythm and + bradycardic (lowest recorded rate 58bpm, no acute events overnight ) Heart Sounds: normal S1 and normal S2; no murmur Vessels: dorsalis pedis pulses present; no JVD Extremities: + edema (trace BLE) Skin: no rashes, warm and dry Psychiatric: A+Ox3, euthymic affect Results & Data Vital Signs (Past 12 Hours) Vital Signs Temp Pulse Pulse Resp BP Pulse Ox O2 Del Method 09/08/23 07:38 36.8 C 56 L 18 138/71 99 Room Air 09/08/23 07:31 Room Air 09/08/23 07:22 63 09/08/23 04:11 36.4 C L 67 20 135/81 99 Room Air 09/07/23 23:51 36.3 C L 65 20 124/69 94 Room Air 09/07/23 22:01 64 Laboratory Results Comprehensive Metabolic Panel 09/08/23 Range/Units 09:47 Sodium 133 L (136-145) mmol/L Potassium 4.9 (3.5-5.1) mmol/L Chloride 104 (98-107) mmol/L Carbon Dioxide 25 (21-32) mmol/L BUN 41 H (6-23) mg/dl Creatinine 1.27 H (0.6-1.2) mg/dl Glucose 199 H (70-99(Fasting)) mg/dl Calcium 9.8 (8.6-10.3) mg/dl Intake and Output 09/07/23 09/08/23 09/08/23 22:59 06:59 14:59 Intake Total 240 / 440 200 / 440 Balance 240 / 440 200 / 440 Intake: Oral 240 / 440 200 / 440 Other: Weight 127.8 kg Weight Measurement Method Standing Scale Diagnostic Findings Echocardiogram 08/14/2023 LV systolic function is normal LVEF 60-65% mild concentric LVH grade I diastolic dysfunction Left atrium is mildly dilated mild mitral annular calcification Trace TR Mild aortic valve sclerosis without stenosis
[2023-09-08 10:34] LABS: BUN Creatinine Ratio 32.3 (10-20); Calcium 9.8 mg/dl (8.6-10.3); Creatinine Clr Calc Pharmacy 52.8 ml/min; Est GFR (African American) 49.5 ml/min; Est GFR (Non-African American) 42.7 ml/min; Potassium 4.9 mmol/L (3.5-5.1)
--- NOTE | 2023-09-08 13:37 | Hospitalist Progress Note ---
Date of Service September 08, 2023 Assessment & Plan (1) ARF (acute renal failure): Plan: Generalized weakness Recent UTI Deconditioning Acute kidney injury --CXR:No acute cardiopulmonary findings. . No significant change in appearance of the chest. -- BioFire negative Reviewed outpatient urine culture: Urine culture from August 2023 grew Enterobacter Patient states that she is to finish her Bactrim course for 2 more days at time of admission Completed IV cefepime course while hospitalized PT OT, fall precaution PT recommends rehab placement Case management to help with discharge planning Renal function improved Avoid nephrotoxic agents as able Discontinue IV fluids Patient refused rehab placement Plan to discharge home today Chronic diastolic heart failure EF 60 to 65% TTE 2023 Monitor volume status Resume Lasix Paroxysmal atrial fibrillation Sinus bradycardia Possible tachybradycardia syndrome Was started on metoprolol succinate 12.5 mg twice daily on last admission Patient concerned about possible metoprolol intolerance Will discontinue metoprolol given bradycardia On Eliquis for anticoagulation Appreciate cardiology input Will need ZIO monitor as outpatient Hypertension Continue metoprolol Resume losartan at reduced dose 50 mg daily Monitor BP CATHERINE on CPAP DM II Last HbA1c 6.8 Continue insulin while hospitalized Monitor BGs Hypothyroidism Normal TSH Continue levothyroxine Endometrial cancer S/P surgery ADHD, anxiety/mood disorder Past tobacco abuse Continue home medications DVT Px: Eliquis Code Status Full code Disposition Currently patient not interested in rehab placement Home with Admission and Anticipated Discharge Date Admission Date: September 05, 2023 Subjective Patient is seen and examined at bedside States feeling well today No new complaints Reports having dizziness yesterday which currently resolved Denies any chest pain, dyspnea, dizziness, abdominal pain Not interested in rehab placement Review of Systems Review of Systems: All systems reviewed & are unremarkable except as noted in Subjective Physical Exam Physical Exam: Physical Exam: Vitals signs as noted above General Appearance:Obese, no apparent distress Head: normocephalic, Atraumatic Eyes: normal inspection, EOMI Neck: supple, Trachea midline Respiratory/Chest: Normal breath sounds, CTA, No accessory muscle use Cardiovascular: S1, S2, No murmur Abdomen/GI:Soft, Non tender, Bowel sounds present Extremities/Musculoskeletal:normal inspection, Trace edema Neurologic/Psych:AAOX3, grossly no focal neurological deficits Skin: normal color, warm Results & Data Results & Data Vital Signs (Past 12 Hours) Vital Signs Temp Pulse Pulse Resp BP Pulse Ox O2 Del Method 06/17/24 12:21 36.3 C L 66 18 143/78 H 95 Room Air 09/08/23 07:38 36.8 C 56 L 18 138/71 99 Room Air 09/08/23 07:31 Room Air 09/08/23 07:22 63 09/08/23 04:11 36.4 C L 67 20 135/81 99 Room Air Laboratory Results [facility] 09/08/23 09:47 Sodium 133 L Potassium 4.9 Chloride 104 Carbon Dioxide 25 BUN 41 H Creatinine 1.27 H Glucose 199 H Calcium 9.8
--- NOTE | 2023-09-08 13:50 | Discharge Summary ---
Date of Service September 08, 2023 Admission HPI Per Admitting Provider History obtained from patient and records. Medical history significant for chronic diastolic heart failure (EF 60 to 65% TTE 2023), A-fib on Eliquis, PSVT, mild TR, hypertension, CATHERINE on CPAP DM 2 insulin requiring, hypothyroidism, ocular myasthenia gravis as per records, endometrial cancer status post surgery, IBS, chronic anemia (baseline hemoglobin of 11), ADHD, anxiety/mood disorder, past tobacco abuse. Recent confinement last month for CHF, new onset A-fib with AVR and Klebsiella UTI. Patient discharged on beta-grady and Eliquis. Completed outpatient antibiotic course. Patient still feeling weak upon discharge home. Increasing weakness the last few days. Nausea, vomiting without abdominal pain. No headache, no chest pain, usual SOB. Patient not comfortable going home after evaluation at the ER. 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 Admission Exam Per Admitting Provider GENERAL: Comfortable, pleasant, morbidly obese, no respiratory distress SKIN: Pallor, warm HEENT: Pale palpebral conjunctivae, no ptosis, dry buccal mucosa NECK : Supple, short neck, no tenderness CHEST : CTA, no tenderness HEART : RRR, no obvious murmurs ABDOMEN: Some distention, nontender EXTREMITIES : Minimal LE swelling, no LE tenderness, no other conspicuous deformities noted NEUROLOGIC : Coherent, no facial asymmetry, gait and stance not assessed Principal Diagnosis Generalized weakness Acute kidney injury Paroxysmal atrial fibrillation Sinus bradycardia Discharge Data Allergies Allergy/AdvReac Type Severity Reaction Status Date / Time penicillin G Allergy Intermediate HIVES Verified 09/04/23 19:15 codeine AdvReac Intermediate VOMITING Verified 09/04/23 19:15 hydrocodone AdvReac Intermediate Vomiting Verified 09/04/23 19:15 Consultations 09/04/23 19:06 ED Decision to Admit Stat 09/07/23 09:22 Consult Cardiology Routine Procedures Performed Laboratory Results WBC 8.73 K/ul (4.8-10.8) 09/07/23 06:09 RBC 4.04 M/uL (4.20-5.40) L 09/07/23 06:09 Hgb 11.6 g/dl (12.0-16.0) L 09/07/23 06:09 Hct 36.1 % (37.0-47.0) L 09/07/23 06:09 MCV 89.4 fL (80.0-100.0) 09/07/23 06:09 MCH 28.7 pg (25.0-34.0) 09/07/23 06:09 MCHC 32.1 g/dL (32.0-36.0) 09/07/23 06:09 RDW Std Deviation 41.5 fL (36.4-46.3) 09/07/23 06:09 RDW Coeff of Buck 12.7 % (11.5-14.5) 09/07/23 06:09 Plt Count 274 K/uL (130-400) 09/07/23 06:09 MPV 10.4 fL (9.4-12.4) 09/07/23 06:09 Immature Gran % (Auto) 0.4 % 09/05/23 07:30 Neut % (Auto) 74.7 % 09/05/23 07:30 Lymph % (Auto) 16.8 % 09/05/23 07:30 [place] % (Auto) 7.0 % 09/05/23 07:30 Eos % (Auto) 0.7 % 09/05/23 07:30 Baso % (Auto) 0.4 % 09/05/23 07:30 Neut # (Auto) 7.00 K/uL (1.40-6.50) H 09/05/23 07:30 Lymph # (Auto) 1.58 K/uL (1.20-3.40) 09/05/23 07:30 [place] # (Auto) 0.66 K/uL (0.11-0.59) H 09/05/23 07:30 Eos # (Auto) 0.07 K/uL (0.00-0.50) 09/05/23 07:30 Baso # (Auto) 0.04 K/uL (0.00-0.20) 09/05/23 07:30 Immature Gran # (Auto) 0.04 K/uL (0.01-0.20) 09/05/23 07:30 Sodium 133 mmol/L (136-145) L 09/08/23 09:47 Potassium 4.9 mmol/L (3.5-5.1) 09/08/23 09:47 Chloride 104 mmol/L (98-107) 09/08/23 09:47 Carbon Dioxide 25 mmol/L (21-32) 09/08/23 09:47 Anion Gap 4 (3-11) 09/08/23 09:47 BUN 41 mg/dl (6-23) H 09/08/23 09:47 Creatinine 1.27 mg/dl (0.6-1.2) H 09/08/23 09:47 Est Cr Clr Drug Dosing 52.8 ml/min 09/08/23 09:47 Est GFR ( Amer) 49.5 ml/min 09/08/23 09:47 Est GFR (Non-Af Amer) 42.7 ml/min 09/08/23 09:47 BUN/Creatinine Ratio 32.3 (10-20) H 09/08/23 09:47 Glucose 199 mg/dl (70-99(Fasting)) H 09/08/23 09:47 POC Glucose 185 mg/dl (70-99) H 09/08/23 12:13 Lactate 0.8 mmol/L (0.4-2.0) 09/04/23 14:56 Calcium 9.8 mg/dl (8.6-10.3) 09/08/23 09:47 Magnesium 2.0 mg/dl (1.7-2.4) 09/06/23 06:05 Total Bilirubin 0.8 mg/dl (0.2-1.0) 09/04/23 13:55 AST 13 U/L (13-39) 09/04/23 13:55 ALT 11 U/L (7-52) 09/04/23 13:55 Alkaline Phosphatase 45 U/L (34-104) 09/04/23 13:55 Troponin I High Sens 5.4 pg/ml (0-14) 09/04/23 13:55 B-Natriuretic Peptide 311 pg/ml (0-100) H 09/04/23 14:26 Total Protein 7.1 gm/dl (6.0-8.3) 09/04/23 13:55 Albumin 3.9 gm/dl (3.4-5.0) 09/04/23 13:55 Globulin 3.2 gm/dl (2.5-4.0) 09/04/23 13:55 Albumin/Globulin Ratio 1.2 (0.9-2) 09/04/23 13:55 Procalcitonin < 0.02 ng/ml (0-0.5) 09/04/23 13:55 TSH 1.241 uIu/ml (0.300-4.500) 09/04/23 13:55 Urine Color Yellow 09/04/23 Unknown Urine Appearance Cloudy (Clear) A 09/04/23 Unknown Urine pH 5.5 (4.5-7.5) 09/04/23 Unknown Ur Specific [place] 1.018 (1.000-1.030) 09/04/23 Unknown Urine Protein 1+ (Negative) H 09/04/23 Unknown Urine Glucose (UA) Negative (Negative) 09/04/23 Unknown Urine Ketones Trace (Negative) H 09/04/23 Unknown Urine Blood Negative (Negative) 09/04/23 Unknown Urine Nitrite Negative (Negative) 09/04/23 Unknown Urine Bilirubin Negative (Negative) 09/04/23 Unknown Urine Urobilinogen Negative (Negative) 09/04/23 Unknown Ur Leukocyte Esterase Negative (Negative) 09/04/23 Unknown Urine WBC (Auto) 0-5 /hpf (0-5) 09/04/23 Unknown Urine RBC (Auto) 0-2 /hpf (0-2) 09/04/23 Unknown U Hyaline Cast (Auto) 3-5 /lpf (0-2) H 09/04/23 Unknown U Epithel Cells (Auto) 3-5 /hpf (0-2) H 09/04/23 Unknown Urine Bacteria (Auto) None Seen (None Seen) 09/04/23 Unknown Uric Acid Crystals Present (None Prsent) A 09/04/23 Unknown Adenovirus (PCR) Not Detected (NotDetected) 09/04/23 14:38 B. pertussis DNA (PCR) Not Detected (NotDetected) 09/04/23 14:38 B.parapertussis DNA PCR Not Detected (NotDetected) 09/04/23 14:38 C. pneumoniae DNA (PCR) Not Detected (NotDetected) 09/04/23 14:38 Coronavirus OC43 (PCR) Not Detected (NotDetected) 09/04/23 14:38 Coronavirus HKU1 (PCR) Not Detected (NotDetected) 09/04/23 14:38 Coronavirus 229E (PCR) Not Detected (NotDetected) 09/04/23 14:38 SARS-CoV-2 (PCR) Not Detected (NotDetected) 09/04/23 14:38 Coronavirus NL63 (PCR) Not Detected (NotDetected) 09/04/23 14:38 Human Metapneumovir PCR Not Detected (NotDetected) 09/04/23 14:38 Influenza Type A (PCR) Not Detected (NotDetected) 09/04/23 14:38 Influenza Type B (PCR) Not Detected (NotDetected) 09/04/23 14:38 M. pneumoniae (PCR) Not Detected (NotDetected) 09/04/23 14:38 Parainfluenza 1 (PCR) Not Detected (NotDetected) 09/04/23 14:38 Parainfluenza 2 (PCR) Not Detected (NotDetected) 09/04/23 14:38 Parainfluenza 3 (PCR) Not Detected (NotDetected) 09/04/23 14:38 Parainfluenza 4 (PCR) Not Detected (NotDetected) 09/04/23 14:38 RSV (PCR) Not Detected (NotDetected) 09/04/23 14:38 Entero/Rhino (PCR) Not Detected (NotDetected) 09/04/23 14:38 Impressions Chest X-Ray 09/04/23 13:59 XR chest 1V portable CLINICAL HISTORY: weakness COMPARISON STUDY: Chest radiograph August 13, 2023. FINDINGS: Lung volumes are normal. Lungs are clear. There is no pneumothorax or pleural effusion. Cardiac size is stable. Mediastinal contours are normal. There is no evidence for pulmonary edema. IMPRESSION: No acute cardiopulmonary findings. . No significant change in appearance of the chest. ACT 112: Negative or not required by law. Electronically signed by: Ronald Jeff M.D. 09/04/2023 3:02 PM Hospital Course (1) ARF (acute renal failure): Generalized weakness Recent UTI Deconditioning Acute kidney injury --CXR:No acute cardiopulmonary findings. . No significant change in appearance of the chest. -- BioFire negative Reviewed outpatient urine culture: Urine culture from August 2023 grew Enterobacter Patient states that she is to finish her Bactrim course for 2 more days at time of admission Completed IV cefepime course while hospitalized PT OT, fall precaution PT recommends rehab placement Case management to help with discharge planning Renal function improved Avoid nephrotoxic agents as able Discontinue IV fluids Patient refused rehab placement Plan to discharge home today Chronic diastolic heart failure EF 60 to 65% TTE 2023 Monitor volume status Resume Lasix Paroxysmal atrial fibrillation Sinus bradycardia Possible tachybradycardia syndrome Was started on metoprolol succinate 12.5 mg twice daily on last admission Patient concerned about possible metoprolol intolerance Will discontinue metoprolol given bradycardia On Eliquis for anticoagulation Appreciate cardiology input Will need ZIO monitor as outpatient Hypertension Continue metoprolol Resume losartan at reduced dose 50 mg daily Monitor BP CATHERINE on CPAP DM II Last HbA1c 6.8 Continue insulin while hospitalized Monitor BGs Hypothyroidism Normal TSH Continue levothyroxine Endometrial cancer S/P surgery ADHD, anxiety/mood disorder Past tobacco abuse Continue home medications DVT Px: Eliquis Code Status Full code Disposition Currently patient not interested in rehab placement Home with Total Time Total Time Spent Total Time Spent (In Minutes): 48 minutes Discharge Plan Discharge Items Patient Disposition: Home - Home Health Services Reason For Visit: ARF Discharge Diagnosis: Generalized weakness Acute kidney injury Paroxysmal atrial fibrillation Sinus bradycardia Activity: Per Instructions section Exercise/Sports: Wait until after follow-up appointment Non-emergency contact: Primary Care Provider and Heavy Equipment Supervisor Call non-emergency contact if: you have any medication questions, your symptoms worsen, your pain is concerning for you and you have a fever Follow-up/Referrals: Aviva Rossi DO [Primary Care Provider] - Diet: Carb Consistent or DM2 and Heart Healthy Addtl Attending Provider Instructions: Follow-up with your primary care physician in 1 week Follow-up with your trimmer tailer Dr. Thibodeaux as recommended -- Get outpatient ZIO monitor arranged as recommended by your trimmer tailer to rule out arrhythmias --Obtain blood test (basic metabolic panel) in 1 week and follow-up with your physician for monitoring your renal function -- Monitor your blood pressure regularly at home and discuss with the physician for further adjustment of medications as needed. -- Your HbA1c is 6.3. Your medications may need to be adjusted based on your blood glucose levels. Discuss with your physician for further instructions. Seek immediate medical attention if your symptoms reoccur or worsen Please take all medications as instructed on discharge list below. Please call if you have any questions or problems. You can reach a [facility] hospitalist on duty at [facility] 24 hours a day by calling [phone] Pending Studies at Discharge: No Stand-Alone Forms: My [facility], Smoking Cessation Medications and DC Order Prescriptions: Continued levothyroxine 50 mcg tablet 50 mcg PO QAM famotidine [Pepcid] 20 mg Tablet 20 mg PO DAILY bupropion HCl 150 mg Tablet Sustained-Release 12 Hr 150 mg PO QAM Rx Instructions: TOTAL DOSE 250 MG--TAKES WITH 100 MG TAB. atorvastatin 20 mg Tablet 20 mg PO QAM cyanocobalamin (vitamin B-12) 1,000 mcg Tablet 1,000 mcg PO QAM Rx Instructions: otc unable to verify 08/13/23 bupropion HCl 100 mg Tablet Sustained-Release 12 Hr 100 mg PO QAM Rx Instructions: TOTAL DOSE 250 MG--TAKES WITH 150 MG TAB. losartan 100 mg Tablet 25 mg PO QAM fluoxetine 60 mg Tablet 60 mg PO QAM insulin aspart U-100 [Novolog U-100 Insulin aspart] 100 unit/mL Solution 1 sliding scale dose SUBCUT TIDM Patient Comments: sliding scale Rx Instructions: DOSE TAKE BSG MINUS 120--1 UNIT FOR EVERY 20 LEFT OVER. CARB RATIO 7 CARBS=1 UNIT. Max dose 35 units (med rec: pt notes 9g = 1 unit) mirabegron [Myrbetriq] 50 mg Tablet Extended Release 24 Hr 50 mg PO QAM Xultophy 100/3.6 100 unit-3.6 mg /mL (3 mL) Insulin Pen 25 unit SUBCUT DAILY Rx Instructions: per pharmacy -up to 50 units daily per titration. 08/13/23 albuterol sulfate 90 mcg/actuation HFA aerosol inhaler 2 puff INHALATION Q4H PRN (Reason: Shortness Of Breath Or Wheezing) insulin glargine [Lantus Solostar U-100 Insulin] 100 unit/mL (3 mL) insulin pen 4 unit SUBCUT DAILY furosemide 40 mg tablet 40 mg PO DAILY Eliquis 5 mg tablet 5 mg PO BID Qty: 60 0RF cholecalciferol (vitamin D3) [Vitamin D3] 50 mcg (2,000 unit) Tablet 50 mcg PO DAILY Held potassium chloride 10 mEq tablet extended release 10 meq PO UD PRN (Reason: takes when taking lasix) Hold Instructions: Until further recommendations from your primary care physician based on your blood work Rx Instructions: hasn't been filled with her current pharmacy 08/13/23 metoprolol succinate 25 mg Tablet Extended Release 24 Hr 12.5 mg PO BID Qty: 30 0RF Hold Instructions: Until further recommendations from your trimmer tailer Discharge Orders: Discharge Order (Routine); Ordered 09/08/23 Ordered By: Gabe Mcneill Admission Data Admit Date/Time: 09/05/23 14:46 Attending Provider: Gabe Mcneill Admit Provider: Pratik Manzano Primary Care Provider: Aviva Rossi Other Providers: [facility]; Deepti Ames Trivoli; Pratik Manzano; Keaton Thibodeaux
== END 2023-09-08 18:01 | disposition home health service (06) | DRG 683 ==
LOC: ED 13:24 → 3N 13:24 → 2W 09-07 13:23

== ENCOUNTER 2023-10-12 10:43 | Inpatient (IN) ==
--- OUTSIDE RECORDS SUMMARY | 2023-10-12 10:48 | External Medical Summary | Summary of Care ---
Author Name Unknown Organization [facility] Address [address] [place] [address] Phone [phone] Care Team Providers Care Telemarketer Name Role Phone Aviva Toussaint DO Primary Care Provider Reason for Visit * Reason Onset Date Comments Information 10/01/2023 Test Results 10/01/202310/01; 10/02 Encounter Details Date Type Department Care Team (Late st Contact Info) Description 10/01/2023 Telephone Family Practice [address] [facility], Rena Lara [address] [place] [phone] Aviva Toussaint DO [address] [place] [address] Information; Test Results (10/01; 10/02) Allergies Active Allergy Reactions Criticality Noted Date Comments Codeine 11/20/2012 Nausea and vomiting Lisinopril 06/12/2015 ?cough Penicillin G 11/20/2012 Hives Hydrocodone-Acetaminophen 11/20/2012 Nausea and vomiting documented as of this encounter (statuses as of 10/03/2023) Medications Medication Sig Dispensed Refills Start Date End Date Status Cyanocobalamin 1000 MCG Oral Tablet (Cyanocobalamin) Take 1 Tablet by mouth daily. 03/27/2021 Active Vision Formula Eye Health Oral Capsule Take 1 Capsule by mouth daily. 05/09/2022 Active Systane Complete PF 0.6 % Ophthalmic Solution (Propylene Glycol (PF)) Instill 1 Drop into eye as needed for Dry eyes. 09/03/2022 Active Levothyroxine Sodium 50 MCG Oral Tablet [...] mL 3 10/03/2022 Active Additional Information Patient not taking.Reported on 10/01/2023 Xultophy 100-3.6 UNIT-MG/ML Subcutaneous Solution Pen-injector (Insulin Degludec-Liraglutid e) Inject up to 50 units under the skin daily as directed per titration schedule 45 mL 3 11/27/2022 Active Pen [place] 316" 31G X 5 MM Use daily to inject insulin 4 times daily 400 Each 1 11/27/2022 Active FLUoxetine HCl 20 MG Oral [...] for Dyspnea. 54 g 1 01/08/2023 Active Additional Information Patient not taking.Reported on 09/18/2023 buPROPion HCl ER (SR) 150 MG Oral [...] the morning. 90 Tablet 3 06/17/2023 Active Ondansetron HCl 4 MG Oral TabletIndications:N ausea Take 1 Tablet by mouth every 6 hours as needed for Nausea. 30 Tablet 09/01/2023 Active Vitamin D-3 125 MCG (5000 UT) Oral Tablet Take 1 Tablet by mouth in the morning. Active Acetaminophen 325 MG Oral Tablet (Tylenol) Take 1 Tablet by mouth every 2 hours as needed for Pain, Mild. (Up to 3000 mg daily) Active Famotidine 20 MG Oral Tablet (Pepcid)Indications :Gastroesophageal reflux disease, unspecified whether esophagitis present Take 1 Tablet by mouth in the morning and 1 Tablet before bedtime. 200 Tablet 3 09/16/2023 Active Losartan Potassium 25 MG Oral Tablet (Cozaar)Indications :Hypertension goal BP (blood pressure) < 140/90 Take 1 Tablet by mouth in the morning. 100 Tablet 3 09/16/2023 Active traMADol HCl 50 MG Oral Tablet (Ultram)Indications :Lumbar radiculopathy Take 1 Tablet by mouth daily as needed for Pain, Severe. 30 Tablet 09/16/2023 Active Furosemide 40 MG Oral Tablet (Lasix) TAKE ONE TABLET BY MOUTH IN THE MORNING 100 Tablet 3 09/29/2023 Active Dexcom G7 Sensor Use as directed. Through DME 09/29/2023 Active Sulfamethoxazole-Tr imethoprim 800-160 MG Oral Tablet (Bactrim DS) Take 1 Tablet by mouth in the morning and 1 Tablet before bedtime. Do all this for 7 days. Until gone. 14 Tablet 10/02/2023 10/09/19 24 Active Apixaban 5 MG Oral Tablet (Eliquis)Indication s:Hospital discharge follow-up,Atrial fibrillation with RVR (HCC) Take 1 Tablet by mouth in the morning and 1 Tablet before bedtime. 60 Tablet 1 08/25/2023 10/01/19 24 Discontinu ed(Refill) Hospital, Clinic, or Other Facility Administered Medication Ordered Dose Route Frequency Start Date End Date Status Albuterol Sulfate (Proventil) (2.5 MG/3ML) 0.083% inhalation solution 2.5 mgIndications:Shortness of breath,History of asthma 2.5 mg NEBULIZER ONCE PRN 01/07/2023 01/07/2024 Active documented as of this encounter (statuses as of 10/03/2023) Active Problems Problem Noted Date Diagnosed Date [...] as of this encounter (statuses as of 10/03/2023) Resolved Problems Problem Noted Date Diagnosed Date [...] start lantus/novolog-refer MTM----, Psychiatrist. Sees Dr Sanders-Lawrence @[facility] [phone] Morbid obesity 12/26/2016 Overview: Per Obesity protocol #1 PMB (postmenopausal bleeding) 11/12/2013 Chronic cough 08/22/2023 Productive cough 08/22/2023 Overview: chronic Left knee injury 06/09/2023 Elevated WBC count 4 documented as of this encounter (statuses as of 10/03/2023) Immunizations Name Administration Dates Next Due COVID-19 mRNA, LNP-s, No Pre serve, 2-Dose Series (eMoov) 09/21/2020,05/22/2020 COVID-19, MRNA-LNP, 23-24, P F, 30 MCG/0.3 mL, 12 YRS AND ABOVE, IM ([employer]-Comirnat) 08/25/2023,01/07/2023 Covid-19, Mrna, Lnp-s, Pf, B ivalent, [...] money to get more. Never true 08/20/2023 Childcare Answer Date Recorded Do you feel overwhelmed with taking care of a child, family member or friend? No 08/20/2023 Does your family need help f inding childcare? (Household - for ages 0-17 years) Not on file 08/20/2023 Clothing Answer Date Recorded Have you been unable to get clothing when it was really needed? No 08/20/2023 Is your family able to get c lothes or diapers when needed? (Household - for ages 0-17 years) Not on file 08/20/2023 Personal Safety Answer Date Recorded Do you feel unsafe or have concerns for your saf ety? No 08/20/2023 Do you have concerns for you r family's safety? (Household - for ages 0-17 years) Not on file 08/20/2023 Utilities Answer Date Recorded Do you have trouble paying y our heating, water, or electric bill? No 08/20/2023 Is your family able to pay t he heat, water, or electric bill? (Household - for ages 0-17 years) Not on file 08/20/2023 Does your family have access to good internet? (Household - for ages 0-17 years) Not on file 08/20/2023 Employment Status Answer Date Recorded Are you unemployed or without regular income? No 08/20/2023 Does the household have a re gular source of income? (Household - for ages 0-17 years) Not on file 08/20/2023 Social Connections Answer Date Recorded How often do you feel lonely or isolated from th ose around you? Never 08/20/2023 Financial Resource Strain Answer Date R ecorded Do you have any trouble payi ng for your medications, or do you think you might in the future? No 08/20/2023 Does your family have troubl e paying for medicine? (Household - for ages 0-17 years) Not on file 08/20/2023 Transportation Needs Answer Date Record ed READ ONLY Do you have troubl e getting a ride to medical visits or work? Sometimes True 08/20/2023 Does your family have a hard time getting a ride to doctors visits? (Household - for ages 0-17 years) Not on file 08/20/2023 Has lack of transportation k ept you from medical appointments, meetings, work, or from getting things needed for daily living? Check all that apply. (Adult - for ages 18 years and over) Not on file 08/20/2023 Do you (or your family) have trouble finding or paying for a ride (transportation)? (Household - for ages 0-17 years) Not on file 08/20/2023 Housing Stability Answer Date Recorded Do you currently live in a s helter or have no steady place to sleep at night? No 08/20/2023 READ ONLY Do you think you a re at risk of becoming homeless? No 08/20/2023 Does your family worry about paying for your home or becoming homeless? (Household - for ages 0-17 years) Not on file 0 08/20/2023 Are you homeless or worried that you might be in the future? (Adult - for ages 18 years and over) Not on file Are you (or your family) crystal eless or worried that you might be in the future? (Household - for ages 0-17 years) Not on file Food Insecurity Answer Date Recorded Do you need food for this week? No 08/20/2023 Are you able to get enough f ood for your family? (Household - for ages 0-17 years) Not on file 08/20/2023 Does your family need food t his week? (Household - for ages 0-17 years) Not on file 08/20/2023 Do you always have enough fo od for your family? (Household - for ages 0-17 years) Not on file 08/20/2023 Sex and Gender Information Value Date Recorded Sex Assigned at Female 09/25/2022 9:34 PM EDT Gender Identity Female 09/25/2022 9:34 PM EDT Sexual Orientation Don't know 09/25/2022 9: 34 PM EDT Job Start Date Occupation Industry Not on file Not on file Not on file documented as of this encounter Miscellaneous Notes * Telephone Encounter - Lisa Marquez LPN - 10/03/2023 3:05 PM EDT Did start the bactrim. Thank you * Telephone Encounter - Mary Ny OSA - 10/03/2023 2:49 PM EDT Returned call * Telephone Encounter - Michelle Tim LPN - 10/03/2023 2:35 PM EDT Call placed to pt - no answer. * Telephone Encounter - Michelle Tim LPN - 10/02/2023 3:52 PM EDT Call placed to patient - no answer. Message left to return call to [phone]. * Addendum Note - Holencik, Aviva M, DO - 10/02/2023 2:45 PM EDTAddended by: AVIVA TOUSSAINT on: 10/02/2023 02:45 PM Modules accepted: Orders * Telephone Encounter - Aviva Toussaint DO - 10/02/2023 2:45 PM EDT Rx sent for Bactrim. Will need to await final culture and may have to adjust. * Telephone Encounter - Michelle Tim LPN - 10/02/2023 9:52 AM EDT Call placed to patient and relayed information from Dr. Toussaint. Pt reports she is having burning with urination. Had episode of nausea and vomiting yesterday. She did complete course of antibiotic in its entirety. Pharmacy confirmed - [facility]. * Telephone Encounter - Aviva Toussaint DO - 10/01/2023 4:35 PM EDT Please call pt: The UA shows small leuks and nitrites. Is she having urinary symptoms? Did she finish entire courseof last antibiotic? * Telephone Encounter - Lisa Marquez LPN - 10/01/2023 11:14 AM EDT Asked cardio to put order in for urine testing. documented in this encounter Plan of Treatment Upcoming Encounters Date Type Department Care Team (Latest Contact Info) Description 10/21/2023 2:30 PM EDT Home Visit [place] at [place], [place] [address] [place] [address] Nubia Zamora, RN [address] [place] [address] 10/24/2023 10:05 AM EDT Hospital Encounter OR [facility], Operating Room [facility] [address] [place] [address] Jc Palafox, DO [address] [place] [phone] 10/24/2023 10:05 AM EDT - 10/24/2023 10:30 AM EDT Surgery OR [facility], Operating Room [facility] [address] [place] [address] Jc Palafox, DO [address] [place] [phone] INJECTION SPINE LUMBAR OR SACRAL 11/04/2023 9:45 AM EDT Imaging Radiology [facility] [address] [place] [address] 11/06/2023 9:00 AM EDT [facility] Visit [facility] [address] [place] [address] Ken Gonzalez PA-C [address] [place] [address] 11/19/2023 8:40 AM EDT Office Visit Family Practice 65 [facility] [address] [place] [address] Aviva Toussaint, DO 293 [facility], [place] [address] 01/20/2024 9:00 AM EDT Office Visit Cardiology, [facility] [address] [place] [address] Shaw Hcikey O, DO [address] [place] [address] Scheduled Procedures Name Priority Associated Diagnoses Date/Ti me INJECTION SPINE LUMBAR OR SACRAL Lumbar radiculopathy 10/24/2023 10:05 AM EDT COLONOSCOPY FLEXIBLE PROXIMAL DIAGNOSTIC Recall History of colonic polyps Health Maintenance Due Date Last Done Comments Cologuard 1998 Fecal Occult Blood Test 1998 Sigmoidoscopy 1998 Mammogram 06/05/2023 06/04/2022, 09/17/2013 Influenza Vaccine (FLU shot) (#1) 2023 01/07/2023, 05/09/2022, 03/23/2018, Additional history exists HbA1c 12/18/2023 06/17/2023, 12/22, 08/06/2022, Additional history exists Albumin/Creatinine Ratio 06/16/2024 024, 06/04/2022, 04/27/2014, Additional history exists Diabetic Foot Exam 06/16/2024 06/17/2023, 0 05/09/2022, 11/08/2015, Additional history exists TSH 06/16/2024 06/17/2023, 12/22, 11/14/2021 Depression Monitoring 08/19/2024 08/20/2023 Diabetic Eye Exam 09/09/2024 09/10/2023, , 05/08/2023, Additional history exists GFR 09/15/2024 09/16/2023, 06/0 05/2023, 06/17/2023, Additional history exists Colonoscopy 02/05/2026 02/05/2023, 2 10/2022, 11/26/2013 Colorectal Cancer Screening 02/05/2026 Lipid Panel 04/19/2027 04/19/2022, 10/22, 02/02/2014, Additional history exists DXA Scan 05/21/2029 05/21/2022, 05/21/2022 DTaP,Tdap,and Td Vaccines (3 - Td or Tdap) 01/07/2033 01/07/2023, 12/17/2012 Pneumococcal Vaccine: 65+ Years Completed 05/09/2022, 07/09/2013 Zoster Vaccines Completed 09/03/2022, 04/24, 01/18/2015 RETIRED - COLONOSCOPY-EVERY 5 YRS AGES 18-100 Discontinued 02/05/2023, 09/18/2022, 11/26/2013 COVID-19 Vaccine Completed 08/25/2023, , 05/09/2022, Additional history exists HPV (Gardasil) Vaccine Aged Out No lo nger eligible based on patient's age to complete this topic Hepatitis B Vaccine Aged Out No longe r eligible based on patient's age to complete this topic MENINGOCOCCAL (MENACTRA/MENVEO) Aged Out No longer eligible based on patient's age to complete this topic documented as of this encounter Medical Devices Not on filedocumented as of this encounter Procedures Procedure Name Priority Date/Time Associated Diagnosis Comments URINALYSIS, POINT OF CARE (ENTER/EDIT) Routine 10/01/2023 11:50 AM EDT Dysuria documented in this encounter Results * (ABNORMAL) CULTURE, URINE, QUANTITATIVE (10/01/2023 11:52 AM EDT) Culture Growth 10,000 to 100,000 colonies/mL Klebsiella pneumoniae(A) MICROBROTH DILUTIONS 10/03/2023 1:16 PM EDT [facility] Culture Growth 10,000 to 100,000 colonies/mL Aerococcus urinae(A) MICROBROTH DILUTIONS 10/03/2023 1:16 PM EDT [facility] Comment: The genus species identification occurred by mass spectrometry and its performance characteristics were determined by [employer]. It has not been cleared or approved by the FDA. The laboratory is regulated under CLIA as qualified to perform high-complexity testing. This test is used for clinical purposes. It should not be regarded as investigational or for research. Routine antimicrobial susceptibility testing methods and standardized interpretation criteria are not available for Aerococcus species. Aerococcus urinae has been described as susceptible to penicillin, amoxicillin and nitrofurantoin, but resistant to sulfonamides. Urine Urine specimen obtained by clean catch procedure / Unknown Non-blood Collection / Unknown 10/01/2023 11:52 AM EDT 10/01/2023 11:52 AM EDT Narrative Organism Antibiotic Method Susceptibility Klebsiella pneumoniae Ampicillin/Sulbactam MICROBROTH DILUTIONS 4: Susceptible Klebsiella pneumoniae Cefazolin MICROBROTH DILUTIONS <=4: Susceptible Klebsiella pneumoniae Cefepime MICROBROTH DILUTIONS <=1: Susceptible Klebsiella pneumoniae Ceftriaxone MICROBROTH DILUTIONS <=1: Susceptible Klebsiella pneumoniae Ciprofloxacin MICROBROTH DILUTIONS <=0.25: Susceptible Comment:Due to alexandra us side effects, the FDA has advised against using Ciprofloxacin to treat uncomplicated UTIs and respiratory tract infections unless there are no alternative treatment options. Klebsiella pneumoniae Gentamicin MICROBROTH DILUTIONS <=1: Susceptible Klebsiella pneumoniae Nitrofurantoin MICROBROTH DILUTIONS 64: Intermediate Klebsiella pneumoniae Piperacillin Tazobactam MICROBROTH DILUTIONS <=4: Susceptible Klebsiella pneumoniae Trimeth/Sulfamethoxazole MICROBROTH DILUTIONS <=20: Susceptible Aviva Toussaint DO LAB MICRO - GENERAL ORDERABLES [facility] [address] [place], [place] [id number] * (ABNORMAL) URINALYSIS, POINT OF CARE (ENTER/EDIT) (10/01/2023 11:50 AM EDT) Color, Urine Yellow Yellow or Light Yellow [facility] Clarity, Urine Slightly Cloudy Clear [facility] Glucose, Urine Negative Negative mg/dL [facility] Bilirubin, Urine Negative Negative [facility] Ketone, Urine Negative Negative mg/dL [facility] Specific [place], Urine 1.025 1.003 - 1.030 [facility] Blood, Urine Negative Negative LAB[facility]AT [facility] pH, Urine 5.0 5.0 - 7.5 units [facility] Protein, Urine 30 Negative mg/dL [facility] Urobilinogen, Urine 0.2 0.2 - 1.0 mg/dL [facility] Nitrite, Urine Positive Negative [facility] Esterase, Urine Small Negative [facility] Urine 10/01/2023 11:5 0 AM EDT Aviva Toussaint DO LAB POINT OF CARE TE ST ENTER/EDIT ORDERABLES [facility] [address] [facility] [place] [address] documented in this encounter Visit Diagnoses Diagnosis Dysuria- Primary Lumbar radiculopathy Thoracic or lumbosacral neuritis or [...] and were consensually agreed upon. Care Teams Telemarketer Relationship Specialty Start Date End Date Aviva Toussaint DO [address] [place] [address] PCP - General Family Medicine 09/09/23 documented as of this encounter
--- OUTSIDE RECORDS SUMMARY | 2023-10-12 10:48 | External Medical Summary | Summary of Care ---
Author Name Unknown Organization [facility] Address [address] [place] [address] Phone [phone] Care Team Providers Care Advanced Quality Engineer Name Role Phone Aviva Toussaint DO Primary Care Provider Reason for Visit * Reason Onset Date Comments Information 10/01/2023 Test Results 10/01/202310/01; 10/02 Encounter Details Date Type Department Care Team (Late st Contact Info) Description 10/01/2023 Telephone Family Practice [address] [facility], [place] [address] [place] [phone] Aviva Toussaint DO [address] [place] [address] Information; Test Results (10/01; 10/02) Allergies Active Allergy Reactions Criticality Noted Date Comments Codeine 11/20/2012 Nausea and vomiting Lisinopril 06/12/2015 ?cough Penicillin G 11/20/2012 Hives Hydrocodone-Acetaminophen 11/20/2012 Nausea and vomiting documented as of this encounter (statuses as of 10/08/2023) Medications Medication Sig Dispensed Refills Start Date [...] schedule 45 mL 3 11/27/2022 Active Pen [place] 316" 31G X 5 MM Use daily [...] as of this encounter (statuses as of 10/08/2023) Active Problems Problem Noted Date Diagnosed Date [...] as of this encounter (statuses as of 10/08/2023) Resolved Problems Problem Noted Date Diagnosed Date [...] start lantus/novolog-refer MTM----, Psychiatrist. Sees Dr Sanders-Lawrence @[facility] [phone] Morbid obesity 12/26/2016 Overview: Per Obesity protocol #1 PMB (postmenopausal bleeding) 11/12/2013 Chronic cough 08/22/2023 Productive cough 08/22/2023 Overview: chronic Left knee injury 06/09/2023 Elevated WBC count 4 documented as of this encounter (statuses as of 10/08/2023) Immunizations Name Administration Dates Next Due COVID-19 mRNA, LNP-s, No Pre serve, 2-Dose Series ([employer]) 09/21/2020,05/22/2020 COVID-19, MRNA-LNP, 23-24, P F, 30 MCG/0.3 mL, 12 YRS AND ABOVE, IM ([employer]-Comirnat) 08/25/2023,01/07/2023 Covid-19, Mrna, Lnp-s, Pf, B ivalent, [...] Telephone Encounter - Lisa Marquez LPN - 10/08/2023 3:52 PM EDT Called patient, she states burning has decreased. Normally has some when she is incontinent. Last couple of days she does have some nausea with exertion. She states she does not feel all the way better. Confirmed pharmacy * Telephone Encounter - Aviva Toussaint DO - 10/08/2023 3:42 PM EDT Please call pt to see if her UTI symptoms have resolved. Has had recurrent UTI. Also grew a second bacteria that is sometimes not handled by bactrim. Want to be sure she is symptom free. * Telephone Encounter - Lisa Marquez LPN [...] answer. Message left to return call to [phone]. * Addendum Note - Aviva Toussaint DO - 10/02/2023 2:45 PM EDTAddended by: [...] Description 10/21/2023 2:30 PM EDT Home Visit [facility] [address] [place] [address] Nubia Zamora RN [address] [place] [address] 10/24/2023 10:05 AM EDT Hospital Encounter OR [facility], Operating Room [facility] [address] [place] [address] Jc Palafox, [address] [place] [address] 10/24/2023 10:05 AM EDT - 10/24/2023 10:30 AM EDT Surgery OR [facility], Operating Room [facility] [address] [place] [address] Jc Palafox, [address] [place] [address] INJECTION SPINE LUMBAR OR SACRAL 11/04/2023 9:45 AM EDT Imaging Radiology [address] [place] [address] 11/06/2023 9:00 AM EDT [facility] Visit [facility] [address] [facility] [place] [address] Ken Gonzalez PA-C [address] [place] [address] 11/19/2023 8:40 AM EDT Office Visit Family Practice [address] [place] [address] [address] [facility] [address] Aviva Toussaint DO 293 [facility], [place] [address] 01/20/2024 9:00 AM EDT [facility] Visit [facility], [facility] [place] [address] Shaw Hickey DO 132 [facility] [place] [address] Scheduled Procedures Name Priority Associated Diagnoses Date/Ti [...] 05/08/2023, Additional history exists GFR 09/15/2024 09/16/2023, 0605/2023, 06/17/2023, Additional history exists Colonoscopy 02/05/2026 02/05/2023, 08/23, [...] QUANTITATIVE (10/01/2023 11:52 AM EDT) Culture Growth ,000 to 100,000 colonies/mL Klebsiella pneumoniae(A) MICROBROTH DILUTIONS 10/03/2023 1:16 PM EDT LAB[facility]ATORY [facility] Culture Growth 10,000 to 100,000 colonies/mL Aerococcus urinae(A) MICROBROTH DILUTIONS 10/03/2023 1:16 PM EDT LAB[facility]ATORY [facility] Comment: The genus species identification occurred by mass spectrometry and its performance characteristics were determined by [employer]. It has not been cleared or approved [...] DO LAB MICRO - GENERAL ORDERABLES [facility] [address] [place] [address] * (ABNORMAL) URINALYSIS, POINT OF CARE (ENTER/EDIT) (10/01/2023 11:50 AM EDT) Color, Urine Yellow Yellow or Light Yellow [facility] Clarity, Urine Slightly Cloudy Clear [facility] Glucose, Urine Negative Negative mg/dL [facility] Bilirubin, Urine Negative Negative [facility] Ketone, Urine Negative Negative mg/dL [facility] Specific [place], Urine 1.025 1.003 - 1.030 LABORATORY [facility] [...] OF CARE TE ST ENTER/EDIT ORDERABLES [facility] [address] [facility] [address] documented in this encounter Visit Diagnoses Diagnosis [...] and were consensually agreed upon. Care Teams Advanced Quality Engineer Relationship Specialty Start Date End Date Aviva Toussaint DO [address] [place] [address] PCP - General Family Medicine 09/09/23 documented as of this encounter
--- OUTSIDE RECORDS SUMMARY | 2023-10-12 10:48 | External Medical Summary | Summary of Care ---
Author Name Unknown Organization [facility] Address [address] [place] [address] Phone [phone] Care Team Providers Care Shank Carrier Name Role Phone Aviva Toussaint DO Primary Care Provider [phone] Reason for Visit * Reason Onset Date Comments Information 10/01/2023 Test Results 10/01/202310/01; 10/02 Encounter Details Date Type Department Care Team (Late st Contact Info) Description 10/01/2023 Telephone Family Practice [facility] [place] [address] [place] [phone] Aviva Toussaint DO 293 [place] [address] Information; Test Results (10/01; 10/02) Allergies Active [...] schedule 45 mL 3 11/27/2022 Active Pen [place] 316" 31G X 5 MM Use daily [...] start lantus/novolog-refer MTM----, Psychiatrist. Sees Dr Sanders-Lawrence @[facility] [phone] Morbid obesity 12/26/2016 Overview: Per Obesity protocol #1 PMB (postmenopausal bleeding) 11/12/2013 Chronic cough 08/22/2023 Productive cough 08/22/2023 Overview: chronic Left knee injury 06/09/2023 Elevated WBC count 4 documented as of this encounter (statuses as of 10/03/2023) Immunizations Name Administration Dates Next Due COVID-19 mRNA, LNP-s, No Pre serve, 2-Dose Series ([employer]) 09/21/2020,05/22/2020 COVID-19, MRNA-LNP, 23-24, P F, 30 MCG/0.3 mL, 12 YRS AND ABOVE, IM ([employer]) 08/25/2023,01/07/2023 Covid-19, Mrna, Lnp-s, Pf, B ivalent, [...] Miscellaneous Notes * Telephone Encounter - Mary Ny OSA - 10/03/2023 2:49 PM EDT Returned call * Telephone Encounter - Michelle Tim LPN - 10/03/2023 2:35 PM EDT Call placed to pt - no answer. * Telephone Encounter - Michelle Tim LPN - 10/02/2023 3:52 PM EDT Call placed to patient - no answer. Message left to return call to [phone]. * Addendum Note - Aviva Toussaint DO [...] Description 10/21/2023 2:30 PM EDT Home Visit [facility] [address] [place] [address] Nubia Zamora, RN [address] [place] [address] 10/24/2023 10:05 AM EDT Hospital Encounter OR [facility], Operating Room [facility] [address] [place] [address] Jc Palafox, DO [address] [place] [address] 10/24/2023 10:05 AM EDT - 10/24/2023 10:30 AM EDT Surgery OR OSS, Operating Room O[facility] [address] [place] [address] Jc Palafox, DO [address] [place] [address] INJECTION SPINE LUMBAR OR SACRAL 11/04/2023 9:45 AM EDT Imaging Radiology [address] [place] [address] 11/06/2023 9:00 AM EDT [facility] Visit [facility] [address] [place] [address] Ken Gonzalez PA-C [address] [place] [address] 11/19/2023 8:40 AM EDT Office Visit Family Practice [address] [place] [address] 293 [place] [address] Aviva Toussaint, DO 293 [place] [address] 01/20/2024 9:00 AM EDT Office Visit Cardiology, [facility] [address] [place] [address] Shaw Hickey, DO [address] [place] [address] Scheduled Procedures Name Priority Associated Diagnoses Date/Ti [...] CULTURE, URINE, QUANTITATIVE (10/01/2023 11:52 AM EDT) Pathologist [facility] Culture Growth 10,000 to 100,000 colonies/mL Klebsiella pneumoniae(A) MICROBROTH DILUTIONS 10/03/2023 1:16 PM EDT [facility] [facility] [place] Growth 10,000 to 100,000 colonies/mL Aerococcus urinae(A) MICROBROTH DILUTIONS 10/03/2023 1:16 PM EDT [facility] Comment: The genus species identification occurred by mass spectrometry and its performance characteristics were determined by [employer]. It has not been cleared or approved [...] DO LAB MICRO - GENERAL ORDERABLES [facility] [address] [place] [address] * (ABNORMAL) URINALYSIS, POINT OF CARE (ENTER/EDIT) (10/01/2023 11:50 AM EDT) Color, Urine Yellow Yellow or Light Yellow LAB[facility]ATORY [facility] Clarity, Urine Slightly Cloudy Clear LAB[facility]ATORY [facility] Glucose, Urine Negative Negative mg/dL LAB[facility]ATORY [facility] Bilirubin, Urine Negative Negative LAB[facility] Ketone, Urine Negative Negative mg/dL LAB[facility]ATORY [facility] Specific [place], Urine 1.025 1.003 - 1.030 LABORATORY PORT [...] ENTER/EDIT ORDERABLES LABORATORY [facility]10 132 [facility] [place] [address] documented in this encounter Visit Diagnoses Diagnosis [...] and were consensually agreed upon. Care Teams Shank Carrier Relationship Specialty Start Date End Date Aviva Toussaint DO [address] [facility] [address] PCP - General Family Medicine 09/09/23 documented as of this encounter
--- OUTSIDE RECORDS SUMMARY | 2023-10-12 10:48 | External Medical Summary | Summary of Care ---
Author Name Unknown Organization [facility] Address [address] [place] [address] Phone [phone] Care Team Providers Care Customer Relations Consultant Name Role Phone Aviva Toussaint DO Primary Care Provider [phone] Reason for Visit * Reason Onset Date Comments Information 10/01/2023 Test Results 10/01/202310/01; 10/02 Encounter Details Date Type Department Care Team (Late st Contact Info) Description 10/01/2023 Telephone Family Practice 65 [facility] [place] 293 [place] [phone] Aviva Toussaint DO [address] [place] [address] Information; Test Results (10/01; 10/02) Allergies Active [...] schedule 45 mL 3 11/27/2022 Active Pen [place] 316" 31G X 5 MM Use daily [...] the morning. 90 Tablet 3 06/17/2023 Active Vitamin D-3 125 MCG (5000 UT) [...] gone. 14 Tablet 10/02/2023 10/09/19 24 Active Nitrofurantoin Monohyd Macro 100 MG Oral Capsule (Macrobid) Take 1 Capsule by mouth in the morning and 1 Capsule before bedtime. Do all this for 7 days. With food until gone. 14 Capsule 10/08/2023 10/15/19 24 Active Ondansetron HCl 4 MG Oral TabletIndications:N ausea Take 1 Tablet by mouth every 6 hours as needed for Nausea. 30 Tablet 10/08/2023 Active Apixaban 5 MG Oral Tablet (Eliquis)Indication s:Hospital discharge follow-up,Atrial fibrillation with RVR (HCC) Take 1 Tablet by mouth in the morning and 1 Tablet before bedtime. 60 Tablet 1 08/25/2023 10/01/19 24 Discontinu ed(Refill) Ondansetron HCl 4 MG Oral TabletIndications:N ausea Take 1 Tablet by mouth every 6 hours as needed for Nausea. 30 Tablet 09/01/2023 10/08/19 24 Discontinu ed(Refill) Hospital, Clinic, or Other [...] start lantus/novolog-refer MTM----, Psychiatrist. Sees Dr Sanders-Lawrence @[facility] [phone] Morbid obesity 12/26/2016 Overview: Per Obesity protocol #1 PMB (postmenopausal bleeding) 11/12/2013 Chronic cough 08/22/2023 Productive cough 08/22/2023 Overview: chronic Left knee injury 06/09/2023 Elevated WBC count 4 documented as of this encounter (statuses as of 10/08/2023) Immunizations Name Administration Dates Next Due COVID-19 mRNA, LNP-s, No Pre serve, 2-Dose Series ([employer]) 09/21/2020,05/22/2020 COVID-19, MRNA-LNP, 23-24, P F, 30 MCG/0.3 mL, 12 YRS AND ABOVE, IM ([facility]) 08/25/2023,01/07/2023 Covid-19, Mrna, Lnp-s, Pf, B ivalent, [...] 08/20/2023 Does the household have a re lar source of income? (Household - for ages [...] Encounter - Lisa Marquez LPN - 10/08/2023 4:23 PM EDT Patient is aware and will comply. Thank you * Addendum Note - Aviva Toussaint DO - 10/08/2023 4:20 PM EDTAddended by: AVIVA TOUSSAINT on: 10/08/2023 04:20 PM Modules accepted: Orders * Telephone Encounter - Aviva Toussaint DO - 10/08/2023 4:05 PM EDT I would like pt to start macrobid given that her symptoms persist. Rx sent. * Telephone Encounter - Alma Xin, LPN - 10/08/2023 3:52 PM EDT Called patient, she states burning has decreased. Normally has some when she is incontinent. Last couple of days she does have some nausea with exertion. She states she does not feel all the way better. Confirmed pharmacy Also, requesting refill of zofran * Telephone Encounter - Aviva Toussaint DO [...] answer. Message left to return call to [phone]. * Addendum Note - Aviva Toussaint DO [...] Description 10/21/2023 2:30 PM EDT [facility] Visit [facility] [address] [place] [address] Nubia Zamora, RN [address] [place] [address] 10/24/2023 10:05 AM EDT Hospital Encounter OR [facility], Operating Room [facility] [address] [place] [address] Jc Palafox, [address] [place] [address] 10/24/2023 10:05 AM EDT - 10/24/2023 10:30 AM EDT Surgery OR [facility], Operating Room [facility] [address] [place] [address] Jc Palafox, [address] [place] [address] INJECTION SPINE LUMBAR OR SACRAL 11/04/2023 9:45 AM EDT Imaging Radiology [address] [place] [address] 11/06/2023 9:00 AM EDT Home Visit [facility], [facility] [address] [place] [address] Ken Gonzalez PA-C [address] [place] [address] 11/19/2023 8:40 AM EDT Office Visit Family Practice [address] [facility], [place] 293 [facility], [place] [address] Aviva Toussaint, DO 293 [facility], [place] [address] 01/20/2024 9:00 AM EDT Office Visit Cardiology, [facility] [address] [place] [address] Shaw Hickey, DO [address] [place] [address] Scheduled Procedures Name Priority Associated Diagnoses Date/Ti [...] MICROBROTH DILUTIONS 10/03/2023 1:16 PM EDT LABORATORY [facility] Culture Growth 10,000 to 100,000 colonies/mL Aerococcus urinae(A) MICROBROTH DILUTIONS 10/03/2023 1:16 PM EDT LAB[facility]ATORY [facility] Comment: The genus species identification occurred by mass spectrometry and its performance characteristics were determined by [employer]. It has not been cleared or approved [...] DO LAB MICRO - GENERAL ORDERABLES LAB[facility]ATORY [facility] [address] [place] [address] * (ABNORMAL) URINALYSIS, POINT OF CARE (ENTER/EDIT) (10/01/2023 11:50 AM EDT) Color, Urine Yellow Yellow or Light Yellow LAB[facility]ATORY [facility] Clarity, Urine Slightly Cloudy Clear LAB[facility] Glucose, Urine Negative Negative mg/dL LAB[facility]ATORY [facility] Bilirubin, Urine Negative Negative LAB[facility]AT[facility] Ketone, Urine Negative Negative mg/dL LABORATORY [facility]10 Specific [place], Urine 1.025 1.003 - 1.030 LABORATORY PORT [...] ENTER/EDIT ORDERABLES LABORATORY [facility]10 [address] [facility] [address] documented in this encounter Visit Diagnoses Diagnosis Dysuria- Primary Nausea Nausea alone Lumbar radiculopathy Thoracic or lumbosacral neuritis or [...] and were consensually agreed upon. Care Teams Customer Relations Consultant Relationship Specialty Start Date End Date Aviva Toussaint DO 293 [facility] [place] [address] PCP - General Family Medicine 09/09/23 documented as of this encounter
--- OUTSIDE RECORDS SUMMARY | 2023-10-12 10:48 | External Medical Summary | Summary of Care ---
Author Name Unknown Organization [facility] Address [address] [place] [address] Phone [phone] Care Team Providers Care Inspector Welded Parts Name Role Phone Aviva Toussaint DO Primary Care Provider Reason for Visit * Reason Onset Date Comments Information 10/01/2023 Test Results 10/01/202310/01; 10/02 Encounter Details Date Type Department Care Team (Late st Contact Info) Description 10/01/2023 Telephone Family Practice 65 [facility] [place] [address] [place] [phone] Aviva Toussaint DO [address] [place] [address] Information; Test Results (10/01; 10/02) Allergies Active [...] schedule 45 mL 3 11/27/2022 Active Pen [place] 316" 31G X 5 MM Use daily [...] start lantus/novolog-refer MTM----, Psychiatrist. Sees Dr Sanders-Lawrence @[facility] [phone] Morbid obesity 12/26/2016 Overview: Per Obesity protocol #1 PMB (postmenopausal bleeding) 11/12/2013 Chronic cough 08/22/2023 Productive cough 08/22/2023 Overview: chronic Left knee injury 06/09/2023 Elevated WBC count 4 documented as of this encounter (statuses as of 10/08/2023) Immunizations Name Administration Dates Next Due COVID-19 mRNA, LNP-s, No Pre serve, 2-Dose Series ([employer]) 09/21/2020,05/22/2020 COVID-19, MRNA-LNP, 23-24, P F, 30 MCG/0.3 mL, 12 YRS AND ABOVE, IM ([employer]) 08/25/2023,01/07/2023 Covid-19, Mrna, Lnp-s, Pf, B ivalent, [...] answer. Message left to return call to [phone]. * Addendum Note - Aviva Toussaint DO [...] Description 10/21/2023 2:30 PM EDT Home Visit [facility] [address] [place] [address] Nubia Zamora RN [address] [place] [address] 10/24/2023 10:05 AM EDT Hospital Encounter OR [facility], Operating Room [facility] [address] [place] [address] Jc Palafox DO [address] [place] [address] 10/24/2023 10:05 AM EDT - 10/24/2023 10:30 AM EDT Surgery OR [facility], Operating Room [facility] [address] [place] [address] Jc Palafox DO [address] [place] [address] INJECTION SPINE LUMBAR OR SACRAL 11/04/2023 9:45 AM EDT Imaging Radiology [address] 132 [facility] [place] [address] 11/06/2023 9:00 AM EDT [facility] Visit [facility] [place] 132 [facility] [place] [address] Ken Gonzalez PA-C 132 [facility] [place] [address] 11/19/2023 8:40 AM EDT Office Visit Family Practice [address] [place] [address] 293 [facility], [place] [address] Aviva Toussaint, DO 293 [facility], [place] [address] 01/20/2024 9:00 AM EDT Office Visit Cardiology, [facility] 132 [facility] [place] [address] Shaw Hickey DO 132 [facility] [place] [address] Scheduled Procedures Name Priority Associated Diagnoses Date/Ti [...] 12/22, 08/06/2022, Additional history exists Albumin/Creatinine Ratio 06/16/202406/16/2 024, 06/04/2022, 04/27/2014, Additional history exists Diabetic Foot Exam 06/16/2024 06/17/2023, 0 05/09/2022, 11/08/2015, Additional history exists TSH 06/16/2024 06/17/2023, 12/22, 11/14/2021 Depression Monitoring 08/19/2024 08/20/2023 Diabetic Eye Exam 09/09/2024 09/10/2023, , 05/08/2023, Additional history exists GFR 09/15/2024 09/16/2023, 06/05/2023, 06/17/2023, Additional history exists Colonoscopy 02/05/2026 02/05/2023, [...] CULTURE, URINE, QUANTITATIVE (10/01/2023 11:52 AM EDT) [facility] Culture Growth 10,000 to 100,000 colonies/mL Klebsiella pneumoniae(A) MICROBROTH DILUTIONS 10/03/2023 1:16 PM EDT LABORATORY [facility] Culture Growth 10,000 to 100,000 colonies/mL Aerococcus urinae(A) MICROBROTH DILUTIONS 10/03/2023 1:16 PM EDT LABORATORY [facility] Comment: The genus species identification occurred by mass spectrometry and its performance characteristics were determined by [employer]. It has not been cleared or approved [...] DO LAB MICRO - GENERAL ORDERABLES LABORATORY [facility] 100 [place] [address] * (ABNORMAL) URINALYSIS, POINT OF CARE (ENTER/EDIT) (10/01/2023 11:50 AM EDT) Color, Urine Yellow Yellow or Light Yellow LABORATORY [facility] Clarity, Urine Slightly Cloudy Clear LABORATORY [facility]10 Glucose, Urine Negative Negative mg/dL LABORATORY [facility]10 Bilirubin, Urine Negative Negative LABORATORY [facility] Ketone, Urine Negative Negative mg/dL LABORATORY [facility]10 Specific [place], Urine 1.025 1.003 - 1.030 LABORATORY PORT [...] ENTER/EDIT ORDERABLES LABORATORY [facility]10 132 [facility] [address] documented in this encounter Visit Diagnoses Diagnosis [...] and were consensually agreed upon. Care Teams Inspector Welded Parts Relationship Specialty Start Date End Date Aviva Toussaint DO 293 [facility], [place] [address] PCP - General Family Medicine 09/09/23 documented as of this encounter
--- OUTSIDE RECORDS SUMMARY | 2023-10-12 10:48 | External Medical Summary | Summary of Care ---
Author Name Unknown Organization [facility] Address [address] [place] [address] Phone [phone] Care Team Providers Care Fine Grade Operator Name Role Phone Aviva Toussaint DO Primary Care Provider [phone] Reason for Visit * Reason Onset Date Comments Information 10/01/2023 Test Results 10/01/202310/01; 10/02 Encounter Details Date Type Department Care Team (Late st Contact Info) Description 10/01/2023 Telephone Family Practice 65 [facility] [place] 293 [place] [phone] Aviva Toussaint DO 293 [place] [address] Information; Test Results (10/01; 10/02) Allergies Active [...] schedule 45 mL 3 11/27/2022 Active Pen [place] 316" 31G X 5 MM Use daily [...] start lantus/novolog-refer MTM----, Psychiatrist. Sees Dr Sanders-Lawrence @[facility] [phone] Morbid obesity 12/26/2016 Overview: Per Obesity protocol #1 PMB (postmenopausal bleeding) 11/12/2013 Chronic cough 08/22/2023 Productive cough 08/22/2023 Overview: chronic Left knee injury 06/09/2023 Elevated WBC count 4 documented as of this encounter (statuses as of 10/08/2023) Immunizations Name Administration Dates Next Due COVID-19 mRNA, LNP-s, No Pre serve, 2-Dose Series ([employer]) 09/21/2020,05/22/2020 COVID-19, MRNA-LNP, 23-24, P F, 30 MCG/0.3 mL, 12 YRS AND ABOVE, IM ([employer]) 08/25/2023,01/07/2023 Covid-19, Mrna, Lnp-s, Pf, B ivalent, [...] answer. Message left to return call to [phone]. * Addendum Note - Aviva Toussaint DO [...] Description 10/21/2023 2:30 PM EDT Home Visit [facility] [place], [facility] [address] [place] [address] Nubia Zamora, RN [address] [place] [address] 10/24/2023 10:05 AM EDT Hospital Encounter OR [facility], Operating Room [facility] [address] [place] [address] Jc Palafox, 132 [place] [address] 10/24/2023 10:05 AM EDT - 10/24/2023 10:30 AM EDT Surgery OR [facility], Operating Room [facility] [address] [place] [address] Jc Palafox, [address] [place] [address] INJECTION SPINE LUMBAR OR SACRAL 11/04/2023 9:45 AM EDT Imaging Radiology [address] [place] [address] 11/06/2023 9:00 AM EDT Home Visit [facility] [place], [facility] [address] [place] [address] Ken Gonzalez PA-C 132 [place] [address] 11/19/2023 8:40 AM EDT Office Visit Family Practice 65 [facility] [place] 293 [place] [address] Aviva Toussaint, DO 293 [facility] [address] 01/20/2024 9:00 AM EDT Office Visit Cardiology, [facility] [address] [facility] [address] Shaw Hickey, DO [address] [facility] [address] Scheduled Procedures Name Priority Associated Diagnoses Date/Ti [...] MICROBROTH DILUTIONS 10/03/2023 1:16 PM EDT LABORATORY [facility] Culture Growth 10,000 to 100,000 colonies/mL Aerococcus urinae(A) MICROBROTH DILUTIONS 10/03/2023 1:16 PM EDT LABORATORY [facility] Comment: The genus species identification occurred by mass spectrometry and its performance characteristics were determined by [employer]. It has not been cleared or approved [...] DO LAB MICRO - GENERAL ORDERABLES LABORATORY [facility] [address] [place] [address] * (ABNORMAL) URINALYSIS, POINT OF CARE (ENTER/EDIT) (10/01/2023 11:50 AM EDT) Color, Urine Yellow Yellow or Light Yellow LABORATORY [facility]10 Clarity, Urine Slightly Cloudy Clear LABORATORY [facility]10 Glucose, Urine Negative Negative mg/dL LABORATORY [facility]10 Bilirubin, Urine Negative Negative LABORATORY [facility]10 Ketone, Urine Negative Negative mg/dL LABORATORY [facility]10 Specific [place], Urine 1.025 1.003 - 1.030 LABORATORY PORT [...] ORDERABLES LABORATORY [facility] 57[facility]10 [address] [facility] [place] [address] documented in this encounter Visit Diagnoses Diagnosis [...] and were consensually agreed upon. Care Teams Fine Grade Operator Relationship Specialty Start Date End Date Aviva Toussaint DO [address] [place] [address] [place] [address] PCP - General Family Medicine 09/09/23 documented as of this encounter
--- OUTSIDE RECORDS SUMMARY | 2023-10-12 10:48 | External Medical Summary | Summary of Care ---
Author Name Unknown Organization [facility] Address [address] [place] [address] Phone [phone] Care Team Providers Care Neurology Hospitalist Name Role Phone Aviva Toussaint DO Primary Care Provider Reason for Visit * Reason Onset Date Comments Information 10/01/2023 Test Results 10/01/202310/01; 10/02 Encounter Details Date Type Department Care Team (Late st Contact Info) Description 10/01/2023 Telephone Family Practice 65 [facility] [place] 293 [place] [phone] Aviva Toussaint DO 293 [place] [address] Information; Test Results (10/01; 10/02) Allergies Active [...] schedule 45 mL 3 11/27/2022 Active Pen [place] 316" 31G X 5 MM Use daily [...] start lantus/novolog-refer MTM----, Psychiatrist. Sees Dr Sanders-Lawrence @[facility] [phone] Morbid obesity 12/26/2016 Overview: Per Obesity protocol #1 PMB (postmenopausal bleeding) 11/12/2013 Chronic cough 08/22/2023 Productive cough 08/22/2023 Overview: chronic Left knee injury 06/09/2023 Elevated WBC count 4 documented as of this encounter (statuses as of 10/08/2023) Immunizations Name Administration Dates Next Due COVID-19 mRNA, LNP-s, No Pre serve, 2-Dose Series (clinovo) 09/21/2020,05/22/2020 COVID-19, MRNA-LNP, 23-24, P F, 30 MCG/0.3 mL, 12 YRS AND ABOVE, IM ([facility]) 08/25/2023,01/07/2023 Covid-19, Mrna, Lnp-s, Pf, B [...] as of this encounter Miscellaneous Notes * Addendum Note - Aviva Toussaint DO - 10/08/2023 4:20 PM EDTAddended by: AVIVA TOUSSAINT on: 10/08/2023 04:20 PM Modules accepted: Orders * Telephone Encounter - Aviva Toussaint DO - 10/08/2023 4:05 PM EDT I would like pt to start macrobid given that her symptoms persist. Rx sent. * Telephone Encounter - Lisa Marquez LPN [...] answer. Message left to return call to [phone]. * Addendum Note - Aviva Toussaint DO [...] Description 10/21/2023 2:30 PM EDT Home Visit [facility] [place], [address] [place] [address] Nubia Zamora, RN [address] [place] [address] 10/24/2023 10:05 AM EDT Hospital Encounter OR [facility], Operating Room [facility] [address] [place] [address] Jc Palafox, DO [address] [place] [address] 10/24/2023 10:05 AM EDT - 10/24/2023 10:30 AM EDT Surgery OR [facility], Operating Room [facility] [address] [place] [address] cJ Palafox, DO [address] [place] [phone] INJECTION SPINE LUMBAR OR SACRAL 11/04/2023 9:45 AM EDT Imaging Radiology [facility] [address] [place] [address] 11/06/2023 9:00 AM EDT Home Visit [facility] [address] [place] [address] Ken Gonzalez PA-C [address] [place] [address] 11/19/2023 8:40 AM EDT Office Visit Family Practice 65 [facility] [place] 293 [place] [address] Aviva Toussaint, DO 293 [facility], [place] [address] 01/20/2024 9:00 AM EDT Office Visit Cardiology, [facility] [address] [place] [address] Shaw Hickey O, DO [address] [place] [address] Scheduled Procedures Name Priority Associated Diagnoses Date/Ti [...] URINE, QUANTITATIVE (10/01/2023 11:52 AM EDT) Pathologist [facility] Culture Growth 10,000 to 100,000 colonies/mL Klebsiella pneumoniae(A) MICROBROTH DILUTIONS 10/03/2023 1:16 PM EDT LABORATORY [facility] Culture Growth 10,000 to 100,000 colonies/mL Aerococcus urinae(A) MICROBROTH DILUTIONS 10/03/2023 1:16 PM EDT LABORATORY [facility] Comment: The genus species identification occurred by mass spectrometry and its performance characteristics were determined by [employer]. It has not been cleared or approved [...] DO LAB MICRO - GENERAL ORDERABLES LABORATORY [facility] [address] [place] [address] * (ABNORMAL) URINALYSIS, POINT OF CARE (ENTER/EDIT) (10/01/2023 11:50 AM EDT) Color, Urine Yellow Yellow or Light Yellow LABORATORY [facility] 57-10 Clarity, Urine Slightly Cloudy Clear LABORATORY [facility] 57-10 Glucose, Urine Negative Negative mg/dL LABORATORY [facility] 57[facility]10 Bilirubin, Urine Negative Negative LABORATORY [facility] 57-10 Ketone, Urine Negative Negative mg/dL LABORATORY [facility] 57-10 Specific [place], Urine 1.025 1.003 - 1.030 LABORATORY PORT [...] ENTER/EDIT ORDERABLES LABORATORY [facility] KUNZ 57-10 132 [facility] [place] [address] documented in this encounter Visit Diagnoses Diagnosis [...] and were consensually agreed upon. Care Teams Neurology Hospitalist Relationship Specialty Start Date End Date Aviva Toussaint DO 293 [place] [address] PCP - General Family Medicine 09/09/23 documented as of this encounter
--- OUTSIDE RECORDS SUMMARY | 2023-10-12 10:48 | External Medical Summary | Summary of Care ---
Author Name Unknown Organization [facility] Address [address] [place] [address] Phone [phone] Care Team Providers Care Loss Control Technician Name Role Phone Aviva Toussaint DO Primary Care Provider Reason for Visit * Reason Onset Date Comments Information 10/01/2023 Test Results 10/01/202310/01; 10/02 Encounter Details Date Type Department Care Team (Late st Contact Info) Description 10/01/2023 Telephone Family Practice 65 [facility] [place] 293 [place] [phone] Aviva Toussaint DO 293 [place] [address] Information; Test Results (10/01; 10/02) Allergies Active [...] schedule 45 mL 3 11/27/2022 Active Pen [place] 316" 31G X 5 MM Use daily [...] start lantus/novolog-refer MTM----, Psychiatrist. Sees Dr Sanders-Lawrence @[facility] [phone] Morbid obesity 12/26/2016 Overview: Per Obesity protocol #1 PMB (postmenopausal bleeding) 11/12/2013 Chronic cough 08/22/2023 Productive cough 08/22/2023 Overview: chronic Left knee injury 06/09/2023 Elevated WBC count 4 documented as of this encounter (statuses as of 10/08/2023) Immunizations Name Administration Dates Next Due COVID-19 mRNA, LNP-s, No Pre serve, 2-Dose Series ([employer]) 09/21/2020,05/22/2020 COVID-19, MRNA-LNP, 23-24, P F, 30 MCG/0.3 mL, 12 YRS AND ABOVE, IM ([employer]) 08/25/2023,01/07/2023 Covid-19, Mrna, Lnp-s, Pf, B ivalent, [...] answer. Message left to return call to [phone]. * Addendum Note - Aviva Toussaint DO [...] 2:30 PM EDT Home Visit [facility] at [place], [facility] 132 [place] [address] Nubia Zamora, RN 132 [place] [address] 10/24/2023 10:05 AM EDT Hospital Encounter OR [facility], Operating Room [facility] [address] [place] [address] Jc Palafox, 132 [place] [address] 10/24/2023 10:05 AM EDT - 10/24/2023 10:30 AM EDT Surgery OR [facility], Operating Room [facility] 132 [place] [address] Jc Palafox, [address] [place] [address] INJECTION SPINE LUMBAR OR SACRAL 11/04/2023 9:45 AM EDT Imaging Radiology [address] 132 [place] [address] 11/06/2023 9:00 AM EDT Home Visit [facility] at [place], [facility] 132 [place] [address] Ken Gonzalez PA-C 132 [place] [address] 11/19/2023 8:40 AM EDT Office Visit Family Practice 65 [facility] 293 [place] [address] Aviva Toussaint, DO 293 [place] [address] 01/20/2024 9:00 AM EDT Office Visit Cardiology, [facility] [address] [facility] [address] Shaw Hickey, DO [address] [facility] [address] Scheduled Procedures Name Priority Associated Diagnoses Date/Ti [...] MICROBROTH DILUTIONS 10/03/2023 1:16 PM EDT LABORATORY [facility] Culture Growth 10,000 to 100,000 colonies/mL Aerococcus urinae(A) MICROBROTH DILUTIONS 10/03/2023 1:16 PM EDT LABORATORY [facility] Comment: The genus species identification occurred by mass spectrometry and its performance characteristics were determined by [employer]. It has not been cleared or approved [...] DO LAB MICRO - GENERAL ORDERABLES LABORATORY [facility] [address] [place] [address] * (ABNORMAL) URINALYSIS, POINT OF CARE (ENTER/EDIT) (10/01/2023 11:50 AM EDT) Color, Urine Yellow Yellow or Light Yellow LABORATORY [facility] 57[facility]10 Clarity, Urine Slightly Cloudy Clear LABORATORY [facility] 57[facility]10 Glucose, Urine Negative Negative mg/dL LABORATORY [facility] 57[facility]10 Bilirubin, Urine Negative Negative LABORATORY [facility] 57-10 Ketone, Urine Negative Negative mg/dL LABORATORY [facility] 57-10 Specific [place], Urine 1.025 1.003 - 1.030 LABORATORY PORT [...] ORDERABLES LABORATORY [facility] 57-10 [address] [facility] [place] [address] documented in this encounter Visit Diagnoses Diagnosis [...] and were consensually agreed upon. Care Teams Loss Control Technician Relationship Specialty Start Date End Date Aviva Toussaint DO [address] [place] [address] [place] [address] PCP - General Family Medicine 09/09/23 documented as of this encounter
--- OUTSIDE RECORDS SUMMARY | 2023-10-12 10:49 | External Medical Summary | Summary of Care ---
Author Name Unknown Organization [facility] Address [address] [place] [address] Phone [phone] Care Team Providers Care Building Tech Name Role Phone Aviva Rossi DO Primary Care Provider [phone] Reason for Visit * Reason Onset Date Comments Information 10/01/2023 Encounter Details Date Type Department Care Team (Late st Contact Info) Description 10/01/2023 Telephone Family Practice 65 [facility] 293 [place] [address] Aviva Rossi DO 293 [place], [place] [phone] Information Allergies Active Allergy Reactions Criticality Noted Date Comments Codeine 11/20/2012 Nausea and vomiting Lisinopril 06/12/2015 ?cough Penicillin G 11/20/2012 Hives Hydrocodone-Acetaminophen 11/20/2012 Nausea and vomiting documented as of this encounter (statuses as of 10/01/2023) Medications Medication Sig Dispensed Refills Start Date [...] schedule 45 mL 3 11/27/2022 Active Pen [place] 316" 31G X 5 MM Use daily [...] Use as directed. Through DME 09/29/2023 Active Apixaban 5 MG Oral Tablet (Eliquis)Indication [...] as of this encounter (statuses as of 10/01/2023) Active Problems Problem Noted Date Diagnosed Date [...] as of this encounter (statuses as of 10/01/2023) Resolved Problems Problem Noted Date Diagnosed Date [...] start lantus/novolog-refer MTM----, Psychiatrist. Sees Dr Sanders-Lawrence @[facility] [phone] Morbid obesity 12/26/2016 Overview: Per Obesity protocol #1 PMB (postmenopausal bleeding) 11/12/2013 Chronic cough 08/22/2023 Productive cough 08/22/2023 Overview: chronic Left knee injury 06/09/2023 Elevated WBC count 4 documented as of this encounter (statuses as of 10/01/2023) Immunizations Name Administration Dates Next Due COVID-19 mRNA, LNP-s, No Pre serve, 2-Dose Series ([employer]) 09/21/2020,05/22/2020 COVID-19, MRNA-LNP, 23-24, P F, 30 MCG/0.3 mL, 12 YRS AND ABOVE, IM ([employer]) 08/25/2023,01/07/2023 Covid-19, Mrna, Lnp-s, Pf, B ivalent, 30 Mcg, IM, 12 yrs and above (GT Nexus) 05/09/2022 Pneumococcal Conjugate Vaccine, 20-valent (Prevn ar20) [...] Telephone Encounter - Aviva Rossi DO - 10/01/2023 4:35 PM EDT Please [...] Description 10/21/2023 2:30 PM EDT Home Visit [facility] [address] [place] [address] Nubia Zamora RN [address] [place] [address] 10/24/2023 10:30 AM EDT Hospital Encounter OR [facility], Operating Room [facility] [address] [place] [phone] Jc Palafox DO [address] [place] [address] 10/24/2023 10:30 AM EDT - 10/24/2023 10:55 AM EDT Surgery OR [facility], Operating Room [facility] [address] [place] [address] Jc Palafox, DO [address] [place] [address] INJECTION SPINE LUMBAR OR SACRAL 11/04/2023 9:45 AM EDT Imaging Radiology [facility] [place] [address] 11/06/2023 9:00 AM EDT Home Visit [facility], [facility] [place] [address] Ken Gonzalez PA-C [address] [place] [address] 11/19/2023 8:40 AM EDT Office Visit Family Practice [address] [place] [address] 293 [place] [address] Avvia Rossi, DO 293 [facility] [place] [address] 01/20/2024 9:00 AM EDT Office Visit Cardiology, [facility] 132 [facility] [place] [address] Shaw Hickey, DO 132 [facility] [place] [address] Pending Results Name Type Priority Associated Diagnoses Date /Time CULTURE, URINE, QUANTITATIVE Lab Routine Dysuria 10/01/2023 11:52 AM EDT Scheduled Orders Name Type Priority Associated Diagnoses Orde r Schedule CULTURE, URINE, QUANTITATIVE Lab Routine Dysuria Expected: 10/01/2023, Expires: 09/30/2024 Scheduled Procedures Name Priority Associated Diagnoses Date/Ti me INJECTION SPINE LUMBAR OR SACRAL Lumbar radiculopathy 10/24/2023 10:30 AM EDT COLONOSCOPY FLEXIBLE PROXIMAL DIAGNOSTIC Recall [...] documented in this encounter Results * (ABNORMAL) URINALYSIS, POINT OF CARE (ENTER/EDIT) (10/01/2023 11:50 AM EDT) Color, Urine Yellow Yellow or Light Yellow LABORATORY [facility] 57-10 Clarity, Urine Slightly Cloudy Clear LABORATORY [facility] 57-10 Glucose, Urine Negative Negative mg/dL LABORATORY [facility] 57-10 Bilirubin, Urine Negative Negative LABORATORY [facility] 57-10 Ketone, Urine Negative Negative mg/dL LABORATORY [facility] 57-10 Specific [place], Urine 1.025 1.003 - 1.030 LABORATORY PORT [...] Urine 10/01/2023 11:5 0 AM EDT Aviva Rossi DO LAB POINT OF CARE TE ST ENTER/EDIT ORDERABLES LABORATORY [facility] 57-10 132 [facility] [place] [address] documented in this encounter Visit Diagnoses Diagnosis [...] and were consensually agreed upon. Care Teams Building Tech Relationship Specialty Start Date End Date Aviva Rossi DO 293 [facility] [place] [address] PCP - General Family Medicine 09/09/23 documented as of this encounter
--- OUTSIDE RECORDS SUMMARY | 2023-10-12 10:49 | External Medical Summary | Summary of Care ---
Author Name Unknown Organization [facility] Address [address] [place] [address] Phone [phone] Care Team Providers Care Staff Interpreter Name Role Phone Aviva Toussaint DO Primary Care Provider Reason for Visit * Reason Onset Date Comments Information 10/01/2023 Test Results 10/01/202310/01 Encounter Details Date Type Department Care Team (Late st Contact Info) Description 10/01/2023 Telephone Family Practice 65 [facility] 293 [place] [phone] Aviva Toussaint DO 293 [place] [address] Information; Test Results (10/01) Allergies Active Allergy Reactions Criticality Noted Date Comments Codeine 11/20/2012 Nausea and vomiting Lisinopril 06/12/2015 ?cough Penicillin G 11/20/2012 Hives Hydrocodone-Acetaminophen 11/20/2012 Nausea and vomiting documented as of this encounter (statuses as of 10/02/2023) Medications Medication Sig Dispensed Refills Start Date [...] schedule 45 mL 3 11/27/2022 Active Pen [place] 316" 31G X 5 MM Use daily [...] as of this encounter (statuses as of 10/02/2023) Active Problems Problem Noted Date Diagnosed Date [...] as of this encounter (statuses as of 10/02/2023) Resolved Problems Problem Noted Date Diagnosed Date [...] start lantus/novolog-refer MTM----, Psychiatrist. Sees Dr Sanders-Lawrence @[facility] [phone] Morbid obesity 12/26/2016 Overview: Per Obesity protocol #1 PMB (postmenopausal bleeding) 11/12/2013 Chronic cough 08/22/2023 Productive cough 08/22/2023 Overview: chronic Left knee injury 06/09/2023 Elevated WBC count 4 documented as of this encounter (statuses as of 10/02/2023) Immunizations Name Administration Dates Next Due COVID-19 mRNA, LNP-s, No Pre serve, 2-Dose Series ([employer]) 09/21/2020,05/22/2020 COVID-19, MRNA-LNP, 23-24, P F, 30 [...] for ages 0-17 years) Not on file 05 / Food Insecurity Answer Date Recorded Do you [...] 2:30 PM EDT Home Visit [facility] at Home, [facility] 132 [place] [address] Nubia Zamora RN [address] [place] [address] 10/24/2023 10:05 AM EDT Hospital Encounter OR [facility], Operating Room [facility] [address] [place] [address] Jc Palafox DO [address] [place] [address] 10/24/2023 10:05 AM EDT - 10/24/2023 10:30 AM EDT Surgery OR [facility], Operating Room [facility] [address] [place] [address] Jc Palafox DO [address] [place] [address] INJECTION SPINE LUMBAR OR SACRAL 11/04/2023 9:45 AM EDT Imaging Radiology [address] 132 [place] [address] 11/06/2023 9:00 AM EDT [facility] Visit [facility], [facility] 132 [facility] [place] [address] Ken Gonzalez PA-C 132 [facility] [place] [address] 11/19/2023 8:40 AM EDT Office Visit Family Practice [address] [place] [address] 293 [place] [address] Aviva Toussaint, DO 293 [place] [address] 01/20/2024 9:00 AM EDT Office Visit Cardiology, [facility] 132 [facility] [place] [address] Shaw Hickey, DO 132 [facility] [place] [address] Pending Results Name Type Priority Associated Diagnoses Date /Time CULTURE, URINE, QUANTITATIVE Lab Routine Dysuria 10/01/2023 11:52 AM EDT Scheduled Procedures Name Priority Associated Diagnoses Date/Ti [...] 12/22, 08/06/2022, Additional history exists Albumin/Creatinine Ratio 06/16/20242 024, [...] Negative mg/dL LABORATORY [facility] 57-10 Specific [place], Urine 1.025 1.003 - 1.030 LABORATORY PORT [...] ENTER/EDIT ORDERABLES LABORATORY [facility] 57-10 132 [place] [address] documented in this encounter Visit Diagnoses Diagnosis [...] and were consensually agreed upon. Care Teams Staff Interpreter Relationship Specialty Start Date End Date Aviva Toussaint DO 293 [place] [address] PCP - General Family Medicine 09/09/23 documented as of this encounter
--- OUTSIDE RECORDS SUMMARY | 2023-10-12 10:49 | External Medical Summary | Summary of Care ---
Author Name Unknown Organization [facility] Address [address] [place] [address] Phone [phone] Care Team Providers Care Drum Tester Name Role Phone Aviva Toussaint DO Primary Care Provider [phone] Reason for Visit * Reason Onset Date Comments Information 10/01/2023 Test Results 10/01/202310/01 Encounter Details Date Type Department Care Team (Late st Contact Info) Description 10/01/2023 Telephone Family Practice 65 [facility] 293 [place] [phone] Aviva Toussaint DO 293 [place] [address] Information; Test Results (10/01) Allergies Active Allergy [...] schedule 45 mL 3 11/27/2022 Active Pen [place] 316" 31G X 5 MM Use daily [...] MTM----, Psychiatrist. Sees Dr Sanders-Lawrence @[facility] [phone] Morbid obesity 12/26/2016 Overview: Per Obesity protocol #1 PMB (postmenopausal bleeding) 11/12/2013 Chronic cough 08/22/2023 Productive cough 08/22/2023 Overview: chronic Left knee injury 06/09/2023 Elevated WBC count 4 documented as of this encounter (statuses as of 10/02/2023) Immunizations Name Administration Dates Next Due COVID-19 mRNA, LNP-s, No Pre serve, 2-Dose Series ([employer]) 09/21/2020,05/22/2020 COVID-19, MRNA-LNP, 23-24, P F, 30 [...] Miscellaneous Notes * Telephone Encounter - Michelle iTm LPN - 10/02/2023 3:52 PM EDT Call placed to patient - no answer. Message left to return call to [phone]. * Addendum Note - Aviva Toussaint DO [...] Description 10/21/2023 2:30 PM EDT Home Visit [facility] [address] [place] [address] Nubia Zamora RN [address] [place] [address] 10/24/2023 10:05 AM EDT Hospital Encounter OR [facility], Operating Room [facility] 132 [place] [address] Jc Palafox, [address] [place] [address] 10/24/2023 10:05 AM EDT - 10/24/2023 10:30 AM EDT Surgery OR [facility], Operating Room [facility] 132 [place] [phone] Jc Palafox, [address] [place] [address] INJECTION SPINE LUMBAR OR SACRAL 11/04/2023 9:45 AM EDT Imaging Radiology [address] 132 [facility] [place] [address] 11/06/2023 9:00 AM EDT [facility] Visit [facility], [facility] 132 [facility] [place] [address] Ken Gonzalez PA-C [address] [place] [address] 11/19/2023 8:40 AM EDT Office Visit Family Practice [address] [place] [address] 293 [place] [address] Aviva Toussaint DO 293 [place] [address] 01/20/2024 9:00 AM EDT Office Visit Cardiology, [facility] 132 [facility] [place] [address] Shaw Hickey DO 132 [facility] [place] [address] Pending Results Name Type Priority Associated Diagnoses [...] Negative mg/dL LABORATORY [facility] 57-10 Specific [place], Urine 1.025 1.003 - 1.030 LABORATORY PORT [...] ENTER/EDIT ORDERABLES LABORATORY [facility] 57-10 132 [facility] [place] [address] documented in this encounter Visit Diagnoses Diagnosis [...] and were consensually agreed upon. Care Teams Drum Tester Relationship Specialty Start Date End Date Aviva Toussaint DO 293 [place] [address] PCP - General Family Medicine 09/09/23 documented as of this encounter
--- OUTSIDE RECORDS SUMMARY | 2023-10-12 10:49 | External Medical Summary | Summary of Care ---
Author Name Unknown Organization [facility] Address [address] [place] [address] Phone [phone] Care Team Providers Care Spa Coordinator Name Role Phone Aviva Rossi DO Primary Care Provider Reason for Visit * Reason Onset Date Comments Information 10/01/2023 Test Results 10/01/202310/01 Encounter Details Date Type Department Care Team (Late st Contact Info) Description 10/01/2023 Telephone Family Practice 65 [facility] [address] [place] [phone] Aviva Rossi DO [address] [place] [address] Information; Test Results (10/01) Allergies Active Allergy [...] schedule 45 mL 3 11/27/2022 Active Pen [place] 316" 31G X 5 MM Use daily [...] lantus/novolog-refer MTM----, Psychiatrist. Sees Dr Sanders-Lawrence @[facility] [phone] Morbid obesity 12/26/2016 Overview: Per Obesity protocol #1 PMB (postmenopausal bleeding) 11/12/2013 Chronic cough 08/22/2023 Productive cough 08/22/2023 Overview: chronic Left knee injury 06/09/2023 Elevated WBC count 4 documented as of this encounter (statuses as of 10/02/2023) Immunizations Name Administration Dates Next Due COVID-19 mRNA, LNP-s, No Pre serve, 2-Dose Series ([employer]) 09/21/2020,05/22/2020 COVID-19, MRNA-LNP, 23-24, P F, 30 MCG/0.3 mL, 12 YRS AND ABOVE, IM (I2 [employer]-Comirnat) 08/25/2023,01/07/2023 Covid-19, Mrna, Lnp-s, Pf, B ivalent, 30 Mcg, IM, 12 yrs and above (Green[employer]) 05/09/2022 Pneumococcal Conjugate Vaccine, 20-valent (Prevn ar20) [...] and relayed information from Dr. Rossi. Pt reports she is having burning with urination. Had episode of nausea and vomiting yesterday. She did complete course of antibiotic in its entirety. Pharmacy confirmed - [facility]. * Telephone Encounter - Aviva Rossi DO [...] Description 10/21/2023 2:30 PM EDT Home Visit [facility] [address] [place] [address] Nubia Zamora, RN [address] [place] [address] 10/24/2023 10:30 AM EDT Hospital Encounter OR [facility], Operating Room [facility] [address] [place] [address] Jc Palafox, DO [address] [place] [address] 10/24/2023 10:30 AM EDT - 10/24/2023 10:55 AM EDT Surgery OR [facility], Operating Room [facility] [address] [place] [address] Jc Palafox, DO [address] [place] [address] INJECTION SPINE LUMBAR OR SACRAL 11/04/2023 9:45 AM EDT Imaging Radiology [address] [place] [address] 11/06/2023 9:00 AM EDT [facility] [address] [place] [address] Ken Gonzalez PA-C [address] [place] [address] 11/19/2023 8:40 AM EDT Office Visit Family Practice [address] [place] [address] 293 [place] [address] Aviva Rossi, DO 293 [place] [address] 01/20/2024 9:00 AM EDT Office Visit Cardiology, [facility] [address] [place] [address] Shaw Hickey, DO [address] [place] [address] Pending Results Name Type Priority Associated Diagnoses [...] Negative mg/dL LABORATORY [facility] 57-10 Specific [place], Urine 1.025 1.003 - 1.030 LABORATORY PORT [...] ENTER/EDIT ORDERABLES LAB[facility] 57-10 [facility] [place] [address] documented in this encounter Visit Diagnoses Diagnosis [...] and were consensually agreed upon. Care Teams Spa Coordinator Relationship Specialty Start Date End Date Aviva Rossi DO 293 [facility], [place] [address] PCP - General Family Medicine 09/09/23 documented as of this encounter
--- OUTSIDE RECORDS SUMMARY | 2023-10-12 10:49 | External Medical Summary | Summary of Care ---
Author Name Unknown Organization [facility] Address [address] [place] [address] Phone [phone] Care Team Providers Care Grocery Supervisor Name Role Phone Aviva Rossi DO Primary Care Provider Reason for Visit * Reason Onset Date Comments Follow Up 09/30/2023 Encounter Details Date Type Department Care Team (Late st Contact Info) Description 09/30/2023 Telephone Interventional Pain Center, [facility] [address] [place] [address] Jc Palafox DO [address] [place] [address] Follow Up Allergies Active Allergy Reactions Criticality Noted Date [...] Active Levothyroxine Sodium 50 MCG Oral Tablet (Levoxyl)Indications :Acquired hypothyroidism TAKE 1 TABLET BY MOUTH DAILY AT LEAST 30 MINUTES PRIOR TO FIRST MEAL OF THE DAY OR OTHER MEDICATIONS 100 Tablet 3 08/06/2022 4 Active Atorvastatin Calcium 20 MG Oral Tablet (Lipitor) TAKE ONE TABLET BY MOUTH DAILY 100 Tablet 3 08/06/2022 4 Active Insulin Syringe-Needle U-100 30G X 5/16" 0.3 ML USE TO INJECT TWO TO THREE TIMES DAILY 300 Each 3 07/15/2022 4 Active NovoLOG FlexPen 100 UNIT/ML Subcutaneous Solution Pen-injector (insulin aspart) INJECT WITH WITH EACH MEAL PER CARB RATIO 1:7 AND CORRECTION FACTOR 1:20>120 MAX DAILY DOSE 35 UNITS 30 mL 3 10/03/2022 Active Additional Information Patient not taking.Reported on 10/01/2023 Xultophy 100-3.6 UNIT-MG/ML Subcutaneous Solution Pen-injector (Insulin Degludec-Liraglutide ) Inject up to 50 units under the skin daily as directed per titration schedule 45 mL 3 11/27/2022 Active Pen [place] 3/16" 31G X 5 MM Use daily to inject insulin 4 times daily 400 Each 1 11/27/2022 Active FLUoxetine HCl 20 MG Oral Capsule (PROzac)Indications: Major depressive disorder, single episode, in partial remission (HCC) Take 1 Capsule by mouth in the morning. 100 Capsule 3 12/09/2022 Active FLUoxetine HCl 40 MG Oral Capsule (PROzac)Indications: Major depressive disorder, single episode, in partial remission (HCC) Take 1 Capsule by mouth in the morning. 100 Capsule 3 12/09/2022 Active ProAir HFA 108 (90 Base) MCG/ACT Inhalation Aerosol SolutionIndications: Shortness of breath,History of asthma Inhale 2 Puffs by mouth 4 times a day as needed for Dyspnea. 54 g 1 01/08/2023 Active Additional Information Patient not taking.Reported on 09/18/2023 buPROPion HCl ER (SR) 150 MG Oral Tablet Extended Release 12 Hour (Wellbutrin SR)Indications:Major depressive disorder, single episode, in partial remission (HCC) Take 1 Tablet by mouth daily. 100 Tablet 3 04/04/2023 Active buPROPion HCl ER (SR) 100 MG Oral Tablet Extended Release 12 Hour (Wellbutrin SR)Indications:Major depressive disorder, single episode, in partial remission (HCC) Take 1 Tablet by mouth in the morning. 100 Tablet 3 04/04/2023 Active Myrbetriq 50 MG Oral Tablet Extended Release 24 Hour (Mirabegron ER)Indications:Stres s incontinence Take 1 Tablet by mouth in the morning. 90 Tablet 3 06/17/2023 Active Apixaban 5 MG Oral Tablet (Eliquis)Indications :Hospital discharge follow-up,Atrial fibrillation with RVR (HCC) Take 1 Tablet by mouth in the morning and 1 Tablet before bedtime. 60 Tablet 1 08/25/2023 Active Ondansetron HCl 4 MG Oral TabletIndications:Na usea Take 1 Tablet by mouth every 6 hours as needed for Nausea. 30 Tablet 09/01/2023 Active Vitamin D-3 125 MCG (5000 UT) Oral Tablet Take 1 Tablet by mouth in the morning. Active Acetaminophen 325 MG Oral Tablet (Tylenol) Take 1 Tablet by mouth every 2 hours as needed for Pain, Mild. (Up to 3000 mg daily) Active Famotidine 20 MG Oral Tablet (Pepcid)Indications: Gastroesophageal reflux disease, unspecified whether esophagitis present Take 1 Tablet by mouth in the morning and 1 Tablet before bedtime. 200 Tablet 3 09/16/2023 Active Losartan Potassium 25 MG Oral Tablet (Cozaar)Indications: Hypertension goal BP (blood pressure) < 140/90 Take 1 Tablet by mouth in the morning. 100 Tablet 3 09/16/2023 Active traMADol HCl 50 MG Oral Tablet (Ultram)Indications: Lumbar radiculopathy Take 1 Tablet by mouth daily as needed for Pain, Severe. 30 Tablet 09/16/2023 Active Furosemide 40 MG Oral Tablet (Lasix) TAKE ONE TABLET BY MOUTH IN THE MORNING 100 Tablet 3 09/29/2023 Active Dexcom G7 Sensor Use as directed. Through DME 09/29/2023 Active Hospital, Clinic, or Other Facility Administered [...] start lantus/novolog-refer MTM----, Psychiatrist. Sees Dr Sanders-Lawrence @[facility] [phone] Morbid obesity 12/26/2016 Overview: Per Obesity protocol #1 PMB (postmenopausal bleeding) 11/12/2013 Chronic cough 08/22/2023 Productive cough 08/22/2023 Overview: chronic Left knee injury 06/09/2023 Elevated WBC count documented as of this encounter (statuses as of 10/01/2023) Immunizations Name Administration Dates Next Due COVID-19 mRNA, LNP-s, No Pre serve, 2-Dose Series ([employer]) 09/21/2020,05/22/2020 COVID-19, MRNA-LNP, 23-24, P F, 30 MCG/0.3 mL, 12 YRS AND ABOVE, IM (Kahnoodle-Comirnaty) 08/25/2023,01/07/2023 Covid-19, Mrna, Lnp-s, Pf, B ivalent, [...] money to buy more. Never true 08/20/19 Within the past 12 months, t he [...] encounter Miscellaneous Notes * Telephone Encounter - Gwendolyn Macias OSA - 10/01/2023 4:03 PM EDT Patient saw her upper and bottom lacer hand yesterday and he approved the hold for eloquis. * Telephone Encounter - Pearl Mckeon LPN - 09/30/2023 10:37 AM EDT Patient recently started Eliquis. Is scheduled for injection in October. Made aware that we need approval from cardiology for her to hold it prior to injection. She sees them tomorrow and will discusswith them. documented in this encounter Plan of Treatment Upcoming Encounters Date Type Department Care Team (Latest Contact Info) Description 10/21/2023 2:30 PM EDT Home Visit [facility] [address] [place] [address] Nubia Zamora RN [address] [place] [address] 10/24/2023 10:30 AM EDT Hospital Encounter OR [facility], Operating Room [facility] [address] [place] [phone] Jc Palafox DO [address] [place] [address] 10/24/2023 10:30 AM EDT - 10/24/2023 10:55 AM EDT Surgery OR [facility], Operating Room [facility] [address] [place] [phone] Jc Palafox, DO [address] [place] [address] INJECTION SPINE LUMBAR OR SACRAL 11/04/2023 9:45 AM EDT Imaging Radiology [facility] [address] [facility] [place] [address] 11/06/2023 9:00 AM EDT [facility] [address] [place] [address] Ken Gonzalez PA-C [address] [place] [address] 11/19/2023 8:40 AM EDT Office Visit Family Practice [address] [place] [address] 293 [place] [address] Aviva Rossi, DO 293 [place] [address] 01/20/2024 9:00 AM EDT Office Visit Cardiology, [facility] 132 [facility] [place] [address] Shaw Hickey, DO 132 [facility] [place] [address] Scheduled Procedures Name Priority Associated Diagnoses Date/Ti [...] and were consensually agreed upon. Care Teams Grocery Supervisor Relationship Specialty Start Date End Date Aviva Rossi DO [address] [place] [address] PCP - General Family Medicine 09/09/23 documented as of this encounter
--- OUTSIDE RECORDS SUMMARY | 2023-10-12 10:49 | External Medical Summary | Summary of Care ---
Author Name Unknown Organization [facility] Address [address] [place] [address] Phone [phone] Care Team Providers Care Near East Archeology Professor Name Role Phone Aviva Rossi DO Primary Care Provider Reason for Visit * Reason Onset Date Comments Follow Up 09/30/2023 Encounter Details Date Type Department Care Team (Late st Contact Info) Description 09/30/2023 Telephone Interventional Pain Center, [facility] [address] [place] [address] Jc Palafox DO [address] [place] [...] schedule 45 mL 3 11/27/2022 Active Pen [place] 316" 31G X 5 MM Use daily [...] start lantus/novolog-refer MTM----, Psychiatrist. Sees Dr Sanders-Lawrence @[facility] [phone] Morbid obesity 12/26/2016 Overview: Per Obesity protocol #1 PMB (postmenopausal bleeding) 11/12/2013 Chronic cough 08/22/2023 Productive cough 08/22/2023 Overview: chronic Left knee injury 06/09/2023 Elevated WBC count 4 documented as of this encounter (statuses as of 10/02/2023) Immunizations Name Administration Dates Next Due COVID-19 mRNA, LNP-s, No Pre serve, 2-Dose Series ([employer]) 09/21/2020,05/22/2020 COVID-19, MRNA-LNP, 23-24, P F, 30 MCG/0.3 mL, 12 YRS AND ABOVE, IM (IM5-Comirnaty) 08/25/2023,01/07/2023 Covid-19, Mrna, Lnp-s, Pf, B ivalent, 30 Mcg, IM, 12 yrs and above ([employer]) 05/09/2022 Pneumococcal Conjugate Vaccine, 20-valent (Prevn ar20) [...] encounter Miscellaneous Notes * Telephone Encounter - Pearl Mckeon LPN - 10/02/2023 8:34 AM EDT Left message for pt to return call * Telephone Encounter - Gwendolyn Macias OSA - 10/01/2023 4:03 PM EDT Patient saw her stone planer yesterday and he approved the hold for [...] Description 10/21/2023 2:30 PM EDT Home Visit [facility] [address] [place] [address] Nubia Zamora, RN [address] [place] [address] 10/24/2023 10:30 AM EDT Hospital Encounter OR [facility], Operating Room [facility] [address] [place] [address] Jc Palafox, DO [address] [place] [address] 10/24/2023 10:30 AM EDT - 10/24/2023 10:55 AM EDT Surgery OR [facility], Operating Room [facility] [address] [place] [address] Jc Palafox, DO [address] [place] [address] INJECTION SPINE LUMBAR OR SACRAL 11/04/2023 9:45 AM EDT Imaging Radiology [address] [place] [address] 11/06/2023 9:00 AM EDT Home Visit [facility] [address] [place] [address] Ken Gonzalez PA-C [address] [place] [address] 11/19/2023 8:40 AM EDT Office Visit Family Practice [address] [place] [address] 293 [place] [address] Aviva Rossi, DO 293 [facility], [place] [address] 01/20/2024 9:00 AM EDT Office Visit Cardiology, [facility] [address] [place] [address] Shaw Hickey, DO [address] [place] [address] Scheduled Procedures Name Priority Associated Diagnoses Date/Ti [...] and were consensually agreed upon. Care Teams Near East Archeology Professor Relationship Specialty Start Date End Date Aviva Rossi DO 293 [place] [address] PCP - General Family Medicine 09/09/23 documented as of this encounter
--- OUTSIDE RECORDS SUMMARY | 2023-10-12 10:49 | External Medical Summary | Summary of Care ---
Author Name Unknown Organization [facility] Address [address] [place] [address] Phone [phone] Care Team Providers Care Sheet Metal Work Furnace Installer Name Role Phone Aviva Toussaint DO Primary Care Provider [phone] Reason for Visit * Reason Onset Date Comments Information 10/01/2023 Test Results 10/01/202310/01; 10/02 Encounter Details Date Type Department Care Team (Late st Contact Info) Description 10/01/2023 Telephone Family Practice 65 [facility] [place] [address] [place] [phone] Aviva Toussaint DO 293 [place] [address] Information; Test Results (10/01; 10/02) Allergies Active [...] schedule 45 mL 3 11/27/2022 Active Pen [place] 316" 31G X 5 MM Use daily [...] MTM----, Psychiatrist. Sees Dr Sanders-Lawrence @[facility] [phone] Morbid obesity 12/26/2016 Overview: Per Obesity protocol #1 PMB (postmenopausal bleeding) 11/12/2013 Chronic cough 08/22/2023 Productive cough 08/22/2023 Overview: chronic Left knee injury 06/09/2023 Elevated WBC count 4 documented as of this encounter (statuses as of 10/03/2023) Immunizations Name Administration Dates Next Due COVID-19 mRNA, LNP-s, No Pre serve, 2-Dose Series (Libratone) 09/21/2020,05/22/2020 COVID-19, MRNA-LNP, 23-24, P F, 30 MCG/0.3 mL, 12 YRS AND ABOVE, IM (Line[employer]-Comirnat) 08/25/2023,01/07/2023 Covid-19, Mrna, Lnp-s, Pf, B ivalent, [...] answer. Message left to return call to [phone]. * Addendum Note - Aviva Toussaint DO [...] Description 10/21/2023 2:30 PM EDT [facility] Visit [facility] [address] [place] [address] Nubia Zamora, RN [address] [place] [address] 10/24/2023 10:05 AM EDT Hospital Encounter OR [facility], Operating Room [facility] [address] [place] [phone] Jc Palafox, [address] [place] [phone] 10/24/2023 10:05 AM EDT - 10/24/2023 10:30 AM EDT Surgery OR [facility], Operating Room [facility] [address] [place] [phone] Jc Palafox, [address] [place] [address] INJECTION SPINE LUMBAR OR SACRAL 11/04/2023 9:45 AM EDT Imaging Radiology [facility]st [facility] [address] [place] [address] 11/06/2023 9:00 AM EDT [facility] [address] [place] [address] Ken Gonzalez PA-C [address] [place] [address] 11/19/2023 8:40 AM EDT Office Visit Family Practice [address] [place] [address] 293 [facility] [place] [address] Aviva Toussaint DO 293 [facility], [place] [address] 01/20/2024 9:00 AM EDT Office Visit Cardiology, [facility] [address] [place] [address] Shaw Hickey DO [address] [place] [address] Scheduled Procedures Name Priority Associated Diagnoses Date/Ti [...] URINE, QUANTITATIVE (10/01/2023 11:52 AM EDT) Pathologist [facility] Culture Growth 10,000 to 100,000 colonies/mL Klebsiella pneumoniae(A) MICROBROTH DILUTIONS 10/03/2023 1:16 PM EDT LABORATORY [facility] Culture Growth 10,000 to 100,000 colonies/mL Aerococcus urinae(A) MICROBROTH DILUTIONS 10/03/2023 1:16 PM EDT LABORATORY [facility] Comment: The genus species identification occurred by mass spectrometry and its performance characteristics were determined by [employer]. It has not been cleared or approved [...] [facility] 100 [facility] [place] [address] * (ABNORMAL) URINALYSIS, POINT OF CARE (ENTER/EDIT) (10/01/2023 11:50 AM EDT) Color, Urine Yellow Yellow or Light Yellow LABORATORY [facility] 57-10 Clarity, Urine Slightly Cloudy Clear LAB[facility] 57-10 Glucose, Urine Negative Negative mg/dL LAB[facility] 57-10 Bilirubin, Urine Negative Negative LAB[facility]AT[facility] 57-10 Ketone, Urine Negative Negative mg/dL LAB[facility]ATORY [facility] 57-10 Specific [place], Urine 1.025 1.003 - 1.030 LABORATORY PORT [...] POINT OF CARE TE ST ENTER/EDIT ORDERABLES Performing Organization Address City/[facility]/ZIP Co de Phone Number LABORATORY [facility] 57-10 [address] [place] [address] documented in this encounter Visit Diagnoses Diagnosis [...] and were consensually agreed upon. Care Teams Sheet Metal Work Furnace Installer Relationship Specialty Start Date End Date Aviva Toussaint DO 293 [place] [address] PCP - General Family Medicine 09/09/23 documented as of this encounter
--- OUTSIDE RECORDS SUMMARY | 2023-10-12 10:49 | External Medical Summary | Summary of Care ---
Author Name Unknown Organization [facility] Address [address] [place] [address] Phone [phone] Care Team Providers Care Director Safety Council Name Role Phone Aviva Rossi DO Primary Care Provider Reason for Visit * Reason Onset Date Comments Information 10/01/2023 Encounter Details Date Type Department Care Team (Late st Contact Info) Description 10/01/2023 Telephone Family Practice 65 [facility] [address] [place] [address] Aviva Rossi DO 293 [place], [place] [phone] Information Allergies Active Allergy Reactions Criticality Noted [...] schedule 45 mL 3 11/27/2022 Active Pen [place] 3/16" 31G X 5 MM Use daily [...] start lantus/novolog-refer MTM----, Psychiatrist. Sees Dr Sanders-Lawrence @[facility] [phone] Morbid obesity 12/26/2016 Overview: Per Obesity protocol #1 PMB (postmenopausal bleeding) 11/12/2013 Chronic cough 08/22/2023 Productive cough 08/22/2023 Overview: chronic Left knee injury 06/09/2023 Elevated WBC count 4 documented as of this encounter (statuses as of 10/01/2023) Immunizations Name Administration Dates Next Due COVID-19 mRNA, LNP-s, No Pre serve, 2-Dose Series (Lantronix) 09/21/2020,05/22/2020 COVID-19, MRNA-LNP, 23-24, P F, 30 MCG/0.3 mL, 12 YRS AND ABOVE, IM (Life[employer]ribe-Comirnaty) 08/25/2023,01/07/2023 Covid-19, Mrna, Lnp-s, Pf, B ivalent, 30 Mcg, IM, 12 yrs and above (Lantronix) 05/09/2022 Pneumococcal Conjugate Vaccine, 20-valent (Prevn ar20) [...] Description 10/21/2023 2:30 PM EDT [facility] [address] [place] [address] Nubia Zamora RN [address] [place] [address] 10/24/2023 10:55 AM EDT Hospital Encounter OR [facility], Operating Room [facility] [address] [place] [address] Jc Palafox, [address] [place] [phone] 10/24/2023 10:55 AM EDT - 10/24/2023 11:20 AM EDT Surgery OR [facility], Operating Room [facility] [address] [place] [address] Jc Palafox, [address] [place] [address] INJECTION SPINE LUMBAR OR SACRAL 11/04/2023 9:45 AM EDT Imaging Radiology [address] [place] [address] 11/06/2023 9:00 AM EDT [facility] 132 [facility] [place] [address] Ken Gonzalez PA-C [address] [place] [address] 11/19/2023 8:40 AM EDT Office Visit Family Practice [address] [place] [address] 293 [place] [address] Aviva Rossi, DO 293 [place] [address] 01/20/2024 9:00 AM EDT Office Visit Cardiology, [facility] 132 [facility] [place] [address] Shaw Hickey, DO 132 [facility] [place] [address] Pending Results Name Type Priority Associated Diagnoses Date /Time CULTURE, URINE, QUANTITATIVE Lab Routine Dysuria 10/01/2023 11:52 AM EDT Scheduled Orders Name Type Priority Associated Diagnoses Orde r Schedule URINALYSIS, POINT OF CARE (ENTER/EDIT) Point of Care Testing Routine Dysuria Ordered: 10/01/2023 CULTURE, URINE, QUANTITATIVE Lab Routine Dysuria Expected: [...] 05/08/2023, Additional history exists GFR 09/15/2024 09/16/2023, 060 05/2023, 06/17/2023, Additional history exists Colonoscopy 02/05/2026 [...] as of this encounter Visit Diagnoses Diagnosis Dysuria- Primary [...] were consensually agreed upon. Care Teams Director Safety Council Relationship Specialty Start Date End Date Aviva Rossi DO [address] [place] [address] PCP - General Family Medicine 09/09/23 documented as of this encounter
--- OUTSIDE RECORDS SUMMARY | 2023-10-12 10:49 | External Medical Summary ---
Author Name UNSPECIFIED Address Unknown Organization [facility] History of Encounters Reason for Assessment: Start of care - f urther visits planned Inpatient discharge facility: Past 14 Da ys: Discharged From Short Stay Acute Hospital Most Recent Inpatient Discharge Date: Functional Assessment Patient Living Situation: Patient Lives Alone: Around the clock When Dyspneic: With moderate exerti on (e.g., while dressing, using commode or bedpan, walking distances less than 20 feet) Urinary Incontinence or Urin rad Catheter Present: Patient is incontinent Bowel Incontinence Frequency: Very rarel y or never has bowel incontinence When Anxious (Reported or Observed): Les s often than daily Cognitive and Behavioral and Psychiatric Symptoms: None Current Ability: Bathing: Unable to use the shower or tub, but able to participate in bathing self in bed, at the sink, in bedside chair, or on commode, with the assistance or supervision of another person throughout the bath. Current Ability: Ambulation: Able to wal k only with the supervision or assistance of another person at all times. Current: Management Of Oral Medications: Able to take medication(s) at the correct times if: (a) individual dosages are prepared in advance by another person; OR (b) another person develops a drug diary or chart Current: Management Of Injec table Medications: Able to take injectable medication(s) at the correct times if: (a) individual syringes are prepared in advance by another person; OR (b) another person develops a drug diary or chart. Procedures Treated for Urinary Tract Infection in P ast 14 Days: Yes Problems Primary Home Care Diagnosis ICD Code: N1 7.9, Acute kidney failure, unspecified Home Care Diagnosis 1: ICD Code: R00.1, Bradycardia, unspecified Home Care Diagnosis 1: Severity Ratin Home Care Diagnosis 2: ICD Code: I11.0, Hypertensive heart disease with heart failure Home Care Diagnosis 2: Severity Ratin Home Care Diagnosis 3: ICD Code: I50.32, Chronic diastolic (congestive) heart failure Home Care Diagnosis 3: Severity Ratin Home Care Diagnosis 4: ICD Code: E11.42, Type 2 diabetes mellitus with diabetic polyneuropathy Home Care Diagnosis 4: Severity Ratin Home Care Diagnosis 5: ICD Code: I48.0, Paroxysmal atrial fibrillation Home Care Diagnosis 5: Severity Ratin
--- OUTSIDE RECORDS SUMMARY | 2023-10-12 10:49 | External Medical Summary | Summary of Care ---
Author Name Unknown Organization [facility] Address [address] [place] [address] Phone [phone] Care Team Providers Care Machine Setup Operator Name Role Phone Aviva Toussaint DO Primary Care Provider [phone] Reason for Visit * Reason Onset Date Comments Medication Refill 10/01/2023 Encounter Details Date Type Department Care Team (Late st Contact Info) Description 10/01/2023 Refill Family Practice [address], [place] [address] [place] [address] Aviva Toussaint DO [address] [place] [address] Hospital discharge follow-up; Atrial fibrillation with RVR (HCC) Allergies Active Allergy Reactions Criticality Noted [...] schedule 45 mL 3 11/27/2022 Active Pen [place] 316" 31G X 5 MM Use daily [...] 1 Tablet before bedtime. 200 Tablet 3 10/01/2023 Active Apixaban 5 MG Oral Tablet (Eliquis)Indication [...] start lantus/novolog-refer MTM----, Psychiatrist. Sees Dr Sanders-Lawrence @[facility] [phone] Morbid obesity 12/26/2016 Overview: Per Obesity protocol #1 PMB (postmenopausal bleeding) 11/12/2013 Chronic cough 08/22/2023 Productive cough 08/22/2023 Overview: chronic Left knee injury 06/09/2023 Elevated WBC count 4 documented as of this encounter (statuses as of 10/01/2023) Immunizations Name Administration Dates Next Due COVID-19 mRNA, LNP-s, No Pre serve, 2-Dose Series ([employer]) 09/21/2020,05/22/2020 COVID-19, MRNA-LNP, 23-24, P F, 30 MCG/0.3 mL, 12 YRS AND ABOVE, IM (IAMINTOIT-Comirnaty) 08/25/2023,01/07/2023 Covid-19, Mrna, Lnp-s, Pf, B ivalent, [...] encounter Miscellaneous Notes * Telephone Encounter - Lary Murphy RPh - 10/01/2023 4:20 PM EDT Refilled per protocol * Telephone Encounter - Lary Murphy RPh - 10/01/2023 4:20 PM EDTSigned Prescriptions: Disp Refills Apixaban 5 MG Oral Tablet (Eliquis) 200 Ta*3 Sig: Take 1 Tablet by mouth in the morning and 1 Tablet before bedtime. Authorizing Provider: AVIVA TOUSSAINT Ordering User: LARY MURPHY documented in this encounter Plan of Treatment Upcoming Encounters Date Type Department Care Team (Latest Contact Info) Description 10/21/2023 2:30 PM EDT Home Visit [facility] [address] [place] [address] Nubia Zamora, RN [address] [place] [address] 10/24/2023 10:30 AM EDT Hospital Encounter [facility], Operating Room [facility] [address] [place] [address] Jc Palafox, DO [address] [place] [address] 10/24/2023 10:30 AM EDT - 10/24/2023 10:55 AM EDT Surgery OR [facility], Operating Room [facility] [address] [place] [address] Jc Palafox, DO [address] [place] [address] INJECTION SPINE LUMBAR OR SACRAL 11/04/2023 9:45 AM EDT Imaging Radiology [address] [place] [address] 11/06/2023 9:00 AM EDT [facility] Visit [facility], [facility] [address] [place] [address] Ken Gonzalez PA-C [address] [place] [address] 11/19/2023 8:40 AM EDT Office Visit Family Practice [address] [place] [address] 293 [place] [address] Aviva Toussaint, DO 293 [facility], [place] [address] 01/20/2024 9:00 AM EDT Office Visit Cardiology, [facility] [address] [place] [address] Shaw Hickey, DO [address] [place] [address] Scheduled Procedures Name Priority Associated Diagnoses Date/Ti [...] as of this encounter Visit Diagnoses Diagnosis Hospital discharge follow-up Other follow-up examination Atrial fibrillation with RVR (HCC) Atrial fibrillation Lumbar radiculopathy Thoracic or lumbosacral [...] and were consensually agreed upon. Care Teams Machine Setup Operator Relationship Specialty Start Date End Date Aviva Toussaint DO [address] [place] [address] PCP - General Family Medicine 09/09/23 documented as of this encounter
--- OUTSIDE RECORDS SUMMARY | 2023-10-12 10:49 | External Medical Summary | Summary of Care ---
Author Name Unknown Organization [facility] Address [address] [place] [address] Phone [phone] Care Team Providers Care Inspector Heating And Refrigeration Name Role Phone Aviva Toussaint DO Primary Care Provider Reason for Visit * Reason Onset Date Comments Information 10/01/2023 Test Results 10/01/202310/01 Encounter Details Date Type Department Care Team (Late st Contact Info) Description 10/01/2023 Telephone Family Practice [facility] 293 [place] [address] Aviva Toussaint DO [address] [place] [address] Information; Test Results (10/01) Allergies Active Allergy [...] schedule 45 mL 3 11/27/2022 Active Pen [place] 316" 31G X 5 MM Use daily [...] start lantus/novolog-refer MTM----, Psychiatrist. Sees Dr Sanders-Lawrence @[facility] [phone] Morbid obesity 12/26/2016 Overview: Per Obesity protocol #1 PMB (postmenopausal bleeding) 11/12/2013 Chronic cough 08/22/2023 Productive cough 08/22/2023 Overview: chronic Left knee injury 06/09/2023 Elevated WBC count 4 documented as of this encounter (statuses as of 10/03/2023) Immunizations Name Administration Dates Next Due COVID-19 mRNA, LNP-s, No Pre serve, 2-Dose Series ([employer]) 09/21/2020,05/22/2020 COVID-19, MRNA-LNP, 23-24, P F, [...] answer. Message left to return call to [phone]. * Addendum Note - Aviva Toussaint DO [...] Description 10/21/2023 2:30 PM EDT Home [facility] [address] [place] [address] Nubia Zamora RN [address] [place] [address] 10/24/2023 10:05 AM EDT Hospital Encounter OR [facility], Operating Room [facility] [address] [place] [address] Jc Palafox, [address] [place] [address] 10/24/2023 10:05 AM EDT - 10/24/2023 10:30 AM EDT Surgery OR [facility], Operating Room [facility] [address] [place] [address] Jc Palafox, [address] [place] [address] INJECTION SPINE LUMBAR OR SACRAL 11/04/2023 9:45 AM EDT Imaging Radiology [address] 132 [facility] [place] [address] 11/06/2023 9:00 AM EDT Home Visit [facility], [facility] 132 [facility] [place] [address] Ken Gonzalez PA-C [address] [place] [address] 11/19/2023 8:40 AM EDT Office Visit Family Practice [address] [place] [address] [place] [address] Aviva Toussaint DO [address] [place] [address] 01/20/2024 9:00 AM EDT Office Visit Cardiology, [facility] 132 [facility] [place] [address] Shaw Hickey DO 132 [facility] [place] [address] Scheduled Procedures Name Priority Associated Diagnoses Date/Ti [...] MICROBROTH DILUTIONS 10/03/2023 1:16 PM EDT LABORATORY [facility] Culture Growth 10,000 to 100,000 colonies/mL Aerococcus urinae(A) MICROBROTH DILUTIONS 10/03/2023 1:16 PM EDT LABORATORY [facility] Comment: The genus species identification occurred by mass spectrometry and its performance characteristics were determined by tarpipe. It has not been cleared or approved [...] DO LAB MICRO - GENERAL ORDERABLES LABORATORY [facility] [address] [place] [address] * (ABNORMAL) URINALYSIS, POINT OF CARE (ENTER/EDIT) (10/01/2023 11:50 AM EDT) Color, Urine Yellow Yellow or Light Yellow LAB[facility] Clarity, Urine Slightly Cloudy Clear [facility] Glucose, Urine Negative Negative mg/dL [facility] Bilirubin, Urine Negative Negative [facility] Ketone, Urine Negative Negative mg/dL [facility] Specific [place], Urine 1.025 1.003 - 1.030 LABORATORY [facility] [...] ORDERABLES LABORATORY [facility] [address] [place] [facility] [place] [address] documented in this encounter Visit Diagnoses Diagnosis [...] were consensually agreed upon. Care Teams Inspector Heating And Refrigeration Relationship Specialty Start Date End Date Aviva Toussaint DO [address] [place] [address] PCP - General Family Medicine 09/09/23 documented as of this encounter
--- OUTSIDE RECORDS SUMMARY | 2023-10-12 10:49 | External Medical Summary | Summary of Care ---
Author Name Unknown Organization [facility] Address [address] [place] [address] Phone [phone] Care Team Providers Care Nitroglycerin Distributor Name Role Phone Aviva Rossi DO Primary Care Provider Reason for Visit * Reason Onset Date Comments Follow Up 09/30/2023 Encounter Details Date Type Department Care Team (Late st Contact Info) Description 09/30/2023 Telephone Interventional Pain Center, [facility] [address] [place] [address] Jc Palafox DO [address] [place] [...] schedule 45 mL 3 11/27/2022 Active Pen [place] 316" 31G X 5 MM Use daily [...] Sees Dr Sanders-Lawrence @[facility] [phone] Morbid obesity 12/26/2016 Overview: Per Obesity protocol #1 PMB (postmenopausal bleeding) 11/12/2013 Chronic cough 08/22/2023 Productive cough 08/22/2023 Overview: chronic Left knee injury 06/09/2023 Elevated WBC count 4 documented as of this encounter (statuses as of 10/03/2023) Immunizations Name Administration Dates Next Due COVID-19 mRNA, LNP-s, No Pre serve, 2-Dose Series ([employer]) 09/21/2020,05/22/2020 COVID-19, MRNA-LNP, 23-24, P F, 30 MCG/0.3 mL, 12 YRS AND ABOVE, IM (AeroDron-Comirnaty) 08/25/2023,01/07/2023 Covid-19, Mrna, Lnp-s, Pf, B ivalent, 30 Mcg, IM, 12 yrs and above ([employer]) 05/09/2022 Pneumococcal Conjugate Vaccine, 20-valent (Prevn ar20) [...] Telephone Encounter - Pearl Mckeon LPN - 10/03/2023 8:47 AM EDT Pt aware. * Telephone Encounter - Pearl Mckeon LPN - 10/02/2023 8:34 AM EDT Left message for pt to return call * Telephone Encounter - Gwendolyn Macias OSA - 10/01/2023 4:03 PM EDT Patient saw her labor training manager yesterday and he approved the hold for [...] Description 10/21/2023 2:30 PM EDT Home Visit [facility] [place] [place] 132 [place] [address] Nubia Zamora, RN [address] [place] [address] 10/24/2023 10:05 AM EDT Hospital Encounter OR [facility], Operating Room [facility] [address] [place] [address] Jc Palafox, DO [address] [place] [address] 10/24/2023 10:05 AM EDT - 10/24/2023 10:30 AM EDT Surgery OR [facility], Operating Room [facility] [address] [place] [address] Jc Palafox, DO [address] [place] [address] INJECTION SPINE LUMBAR OR SACRAL 11/04/2023 9:45 AM EDT Imaging Radiology [facility] 1st [facility] [address] [place] [address] 11/06/2023 9:00 AM EDT Home Visit [place] [facility] [address] [place] [address] Ken Gonzalez PA-C [address] [place] [address] 11/19/2023 8:40 AM EDT Office Visit Family Practice 65 [facility] 293 [place] [address] Aviva Rossi, DO 293 [facility], [place] [address] 01/20/2024 9:00 AM EDT Office Visit Cardiology, [facility] [address] [place] [address] Shaw Hickey O, DO [address] [place] [address] Scheduled Procedures Name Priority Associated Diagnoses Date/Ti [...] and were consensually agreed upon. Care Teams Nitroglycerin Distributor Relationship Specialty Start Date End Date Aviva Rossi DO [address] [place] [address] PCP - General Family Medicine 09/09/23 documented as of this encounter
--- OUTSIDE RECORDS SUMMARY | 2023-10-12 10:50 | External Medical Summary | Summary of Care ---
Author Name Unknown Organization [facility] Address [address] [place] [address] Phone [phone] Care Team Providers Care Director Of Financial Reporting Name Role Phone Aviva Rossi DO Primary Care Provider [phone] Reason for Visit * Reason Onset Date Comments Follow Up 09/30/2023 Encounter Details Date Type Department Care Team (Late st Contact Info) Description 09/30/2023 Telephone Interventional Pain Center, [facility] [address] [place] [address] Jc Palafox DO [address] [place] [address] Follow Up Allergies Active Allergy Reactions Criticality Noted Date Comments Codeine 11/20/2012 Nausea and vomiting Lisinopril 06/12/2015 ?cough Penicillin G 11/20/2012 Hives Hydrocodone-Acetaminophen 11/20/2012 Nausea and vomiting documented as of this encounter (statuses as of 09/30/2023) Medications Medication Sig Dispensed Refills Start Date [...] 11/27/2022 Active Additional Information Patient taking differently: 21 Units Subcutaneous Daily(Non-Specified), (No instructions reported), Reported on 09/23/2023 Pen [place] 3/16" 31G X 5 MM Use daily [...] 06/17/2023 Active Apixaban 5 MG Oral Tablet (Eliquis)Indication s:Hospital discharge follow-up,Atrial fibrillation with RVR (HCC) Take 1 Tablet by mouth in the morning and 1 Tablet before bedtime. 60 Tablet 1 08/25/2023 Active Ondansetron HCl 4 MG Oral TabletIndications:N [...] mouth in the morning. 100 Tablet 3 09/29/2023 Active Dexcom G7 Sensor Use as directed. Through DME 09/29/2023 Active Hospital, Clinic, or Other Facility Administered Medication Ordered Dose Route Frequency Start Date End Date Status Albuterol Sulfate (Proventil) (2.5 MG/3ML) 0.083% inhalation solution 2.5 mgIndications:Shortness of breath,History of asthma 2.5 mg NEBULIZER ONCE PRN 01/07/2023 01/07/2024 Active documented as of this encounter (statuses as of 09/30/2023) Active Problems Problem Noted Date Diagnosed Date [...] as of this encounter (statuses as of 09/30/2023) Resolved Problems Problem Noted Date Diagnosed Date [...] start lantus/novolog-refer MTM----, Psychiatrist. Sees Dr Sanders-Lawrence @[facility] [phone] Morbid obesity 12/26/2016 Overview: Per Obesity protocol #1 PMB (postmenopausal bleeding) 11/12/2013 Chronic cough 08/22/2023 Productive cough 08/22/2023 Overview: chronic Left knee injury 06/09/2023 Elevated WBC count 4 documented as of this encounter (statuses as of 09/30/2023) Immunizations Name Administration Dates Next Due COVID-19 mRNA, LNP-s, No Pre serve, 2-Dose Series ([employer]) 09/21/2020,05/22/2020 COVID-19, MRNA-LNP, 23-24, P F, 30 MCG/0.3 mL, 12 YRS AND ABOVE, IM (Razmir-ComirnatHabeas) 08/25/2023,01/07/2023 Covid-19, Mrna, Lnp-s, Pf, B ivalent, 30 Mcg, IM, 12 yrs and above ([employer]) 05/09/2022 Pneumococcal Conjugate Vaccine, 20-valent (Prevn ar20) [...] Department Care Team (Latest Contact Info) Description 10/01/2023 10:30 AM EDT Office Visit Cardiology, [facility] [address] [address] [address] Shaw Hickey, [address] [place] [address] 10/01/2023 1:15 PM EDT Imaging Radiology [facility]st [facility] [address] [place] [address] 10/21/2023 2:30 PM EDT Home Visit [facility] [address] [place] [address] Nubia Zamora, RN [address] [place] [address] 10/24/2023 10:55 AM EDT Hospital Encounter OR [facility], Operating Room [facility] [address] [place] [phone] Jc Palafox, DO [address] [place] [address] 10/24/2023 10:55 AM EDT - 10/24/2023 11:20 AM EDT Surgery OR [facility], Operating Room [facility] [address] [place] [address] Jc Palafox, DO [address] [place] [address] INJECTION SPINE LUMBAR OR SACRAL 11/06/2023 9:00 AM EDT [facility] [address] [place] [address] Ken Gonzalez PA-C [address] [place] [address] 11/19/2023 8:40 AM EDT Office Visit Family Practice 65 [facility] [place] 293 [facility] [address] Aviva Rossi, DO 293 [facility] [place] [address] Scheduled Procedures Name Priority Associated Diagnoses Date/Ti [...] were consensually agreed upon. Care Teams Director Of Financial Reporting Relationship Specialty Start Date End Date Aviva Rossi DO [address] [place] [address] PCP - General Family Medicine 09/09/23 documented as of this encounter
--- OUTSIDE RECORDS SUMMARY | 2023-10-12 10:50 | External Medical Summary | Summary of Care ---
Author Name Unknown Organization [facility] Address [address] [place] [address] Phone [phone] Care Team Providers Care Silica Dry Press Helper Name Role Phone Aviva Rossi DO Primary Care Provider Reason for Visit * Reason Comments Hospital Follow-Up Encounter Details Date Type Department Care Team (Late st Contact Info) Description 10/01/2023 10:30 AM EDT Office Visit Cardiology, [facility] [address] [place] [address] Shaw Hickey DO [address] [place] [id number] PAF (paroxysmal atrial fibrillation) ([facility])*; Hospital discharge follow-up; Hypertension goal BP (blood pressure) < 140/90 [...] schedule 45 mL 3 11/27/2022 Active Pen [place] 316" 31G X 5 MM Use daily [...] (Eliquis)Indications :Hospital discharge follow-up,Atrial fibrillation with RVR ([facility]) Take 1 Tablet by mouth in the [...] start lantus/novolog-refer MTM----, Psychiatrist. Sees Dr Sanders-Lawrence @[facility] [phone] Morbid obesity 12/26/2016 Overview: Per Obesity protocol #1 PMB (postmenopausal bleeding) 11/12/2013 Chronic cough 08/22/2023 Productive cough 08/22/2023 Overview: chronic Left knee injury 06/09/2023 Elevated WBC count 4 documented as of this encounter (statuses as of 10/01/2023) Immunizations Name Administration Dates Next Due COVID-19 mRNA, LNP-s, No Pre serve, 2-Dose Series ([employer]) 09/21/2020,05/22/2020 COVID-19, MRNA-LNP, 23-24, P F, 30 MCG/0.3 mL, 12 YRS AND ABOVE, IM ([employer]) 08/25/2023,01/07/2023 Covid-19, Mrna, Lnp-s, Pf, B ivalent, 30 Mcg, IM, 12 yrs and above ([employer]) 05/09/2022 Pneumococcal Conjugate Vaccine, 20-valent (Prevn ar20) [...] Sign Reading Time Taken Comments Blood Pressure 118/64 10/01/2023 10:51 AM EDT Pulse 76 10/01/2023 10:51 AM EDT Temperature - - Respiratory Rate 16 10/01/2023 10:51 AM EDT Oxygen Saturation - - Inhaled Oxygen Concentration - - Weight 124.7 kg (275 lb) 10/01/2023 10:51 AM EDT Height - - Body Mass Index 50.3 09/16/2023 10:21 AM EDT documented in this encounter Progress Notes * Shaw Hickey DO - 10/01/2023 10:52 AM EDT SUBJECTIVE: Patient returns today for hospital follow-up. Admitted to [facility] 08/13/2023 atrial fibrillation with rapid ventricular response in the setting of acute urinary tract infection. Urine cultures growing both Enterococcus and Klebsiella. Rehospitalized September 04, 2023 due to acute renal insufficiency and viral gastroenteritis. Toprol-XL 12.5 mg daily discontinued during most recent hospitalization September 08, 2023 due to patient concerns regarding bradycardia and fatigue. She wore Zio monitor after discharge, however, broughtmonitor with her to office visit today. Will mail in for interrogation. Reports significant fatigue associated with low-dose beta-grady. Prefers to stay off this class of medications in the future. Also voices concern regarding potential interactions with bupropion. Denies chest pain or unusual shortness of breath. Chronic, bilateral lower extremity edema unchanged. Recently noted worsening edema in the setting of hot weather and sodium intake. She took an additional dose of furosemide with improvement. No orthopnea or PND. Denies palpitations, lightheadedness, dizziness, syncope, or near syncope. Voices concern regarding possible recurrent urinary tract infection. ECG 09/04/2023 [facility]: Normal sinus rhythm with low-voltage QRS 2D echocardiogram report [facility] August 17, 2022: LVEF 60-65% Mild mitral regurgitation Normal LA size. ROS: All others negative other than those noted in the HPI. 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 ([facility]) Recurrent major depressive disorder, in partial remission ([facility]) Attention deficit hyperactivity disorder (ADHD) BMI 50.0-59.9, adult ([facility]) Social History Tobacco Use Smoking status: Former Current packs/day: 1.00 Average packs/day: 1 pack/day for 25.0 years (25.0 ttl pk-yrs) Types: Cigarettes Passive exposure: Past Smokeless tobacco: Former Quit date: 12/17/1990 Tobacco comments: quit 1990 Vaping Use Vaping status: Never Used Substance Use Topics Alcohol use: Yes Comment: occasional Drug use: No Review of patient's allergies indicates: Allergen Reactions Codeine Nausea and vomiting Lisinopril ?cough Penicillin G Hives Vicodin [Hydrocodone-Acetaminophen] Nausea and vomiting Current Outpatient Medications Medication Sig Dispense Refill Cyanocobalamin 1000 MCG Oral Tablet (Cyanocobalamin) Take 1 Tablet by mouth daily. Vision Formula Eye Health Oral Capsule Take 1 Capsule by mouth daily. Levothyroxine Sodium 50 MCG Oral Tablet (Levoxyl) TAKE 1 TABLET BY MOUTH DAILY AT LEAST 30 MINUTES PRIOR TO FIRST MEAL OF THE DAY OR OTHER MEDICATIONS 100 Tablet 3 Atorvastatin Calcium 20 MG Oral Tablet (Lipitor) TAKE ONE TABLET BY MOUTH DAILY 100 Tablet 3 Xultophy 100-3.6 UNIT-MG/ML Subcutaneous Solution Pen-injector (Insulin Degludec-Liraglutide) Inject up to 50 units under the skin daily as directed per titration schedule 45 mL 3 FLUoxetine HCl 20 MG Oral Capsule (PROzac) Take 1 Capsule by mouth in the morning. 100 Capsule 3 FLUoxetine HCl 40 MG Oral Capsule (PROzac) Take 1 Capsule by mouth in the morning. 100 Capsule 3 buPROPion HCl ER (SR) 150 MG [...] 1 Tablet before bedtime. 60 Tablet 1 Ondansetron HCl 4 MG Oral Tablet Take 1 Tablet by mouth every 6 hours as needed for Nausea. 30 Tablet 0 Vitamin D-3 125 MCG (5000 UT) Oral Tablet Take 1 Tablet by mouth in the morning. Acetaminophen 325 MG Oral Tablet (Tylenol) Take 1 Tablet by mouth every 2 hours as needed for Pain,Mild. (Up to 3000 mg daily) Famotidine 20 MG Oral Tablet (Pepcid) Take 1 Tablet by mouth in the morning and 1 Tablet before bedtime. 200 Tablet 3 Losartan Potassium 25 MG Oral Tablet (Cozaar) Take 1 Tablet by mouth in the morning. 100 Tablet 3 traMADol HCl 50 MG Oral Tablet (Ultram) Take 1 Tablet by mouth daily as needed for Pain, Severe. 30Tablet 0 Furosemide 40 MG Oral Tablet (Lasix) TAKE ONE TABLET BY MOUTH IN THE MORNING 100 Tablet 3 Systane Complete PF 0.6 % Ophthalmic Solution (Propylene Glycol (PF)) Instill 1 Drop into eye as needed for Dry eyes. Insulin Syringe-Needle U-100 30G X 5/16" 0.3 ML USE TO INJECT TWO TO THREE TIMES DAILY 300 Each 3 NovoLOG FlexPen 100 UNIT/ML Subcutaneous Solution Pen-injector (insulin aspart) INJECT WITH WITH EACH MEAL PER CARB RATIO 1:7 AND CORRECTION FACTOR 1:20>120 MAX DAILY DOSE 35 UNITS (Patient not taking: Reported on 10/01/2023) 30 mL 3 Pen [place] 3/16" 31G X 5 MM Use daily to inject insulin 4 times daily 400 Each 1 ProAir HFA 108 (90 Base) MCG/ACT Inhalation Aerosol Solution Inhale 2 Puffs by mouth 4 times a day as needed for Dyspnea. (Patient not taking: Reported on 09/18/2023) 54 g 1 Dexcom G7 Sensor Use as directed. Through DME Current Facility-Administered Medications Medication Dose Route Frequency Provider Last Rate Last Admin Albuterol Sulfate (Proventil) (2.5 MG/3ML) 0.083% inhalation solution 2.5 mg 2.5 mg Nebulizer Once PRN Aviva Rossi, Lipid Panel Results: Results for orders placed or performed in visit on 12/11/12 LIPID PANEL Result Value Ref Range HOURS FASTING 7 hours Triglycerides 92 <200 mg/dL Cholesterol 190 <200 mg/dL HDL Cholesterol 54 >39 mg/dL Cholesterol-HDL Ratio 3.5 LDL Cholesterol 118 0 - 129 mg/dL Results for orders placed or performed in visit on 04/19/22 LIPID PANEL WITH DIRECT LDL IF TG IS HIGH Result Value Ref Range Triglycerides 74 <=174 mg/dL Cholesterol 173 <200 mg/dL HDL Cholesterol 58 >49 mg/dL Non-HDL Cholesterol 115 <=159 mg/dL LDL Cholesterol 100 <=129 mg/dL Lab Results Component Value Date/Time TSH - [facility] 3.70 06/17/2023 09:52 AM TSH - [facility] 4.35 (H) 01/07/2023 12:37 PM TSH - [facility] 5.75 (H) 11/14/2021 09:02 AM CBC Results: Results for orders placed or performed in visit on 08/25/23 CBC Result Value Ref Range WBC 11.09 (H) 4.00 - 10.80 K/uL RBC 4.79 3.85 - 5.15 M/uL HGB 13.7 12.0 - 15.3 g/dL HCT 42.5 36.0 - 45.2 % MCV 88.7 81.5 - 97.5 fL MCH 28.6 27.0 - 34.0 pg MCHC 32.2 32.0 - 36.0 g/dL RDW 13.0 11.5 - 15.5 % PLT 252 140 - 400 K/uL MPV 10.9 6.6 - 11.1 fL nRBCs 0 <=0 /100 WBCs OBJECTIVE/PHYSICAL EXAMINATION: BP 118/64 | Pulse 76 | Resp 16 | Wt 124.7 kg (275 lb) | BMI 50.30 kg/m | BSA 2.34 m General: NAD, AAO x3, well nourished. Overweight. HEENT: Normocephalic. Atraumatic. Conjunctiva pink, no scleral icterus. No carotid bruits, the carotid upstrokes are brisk. No JVD. No HJR Heart: Regular normal S-1 and S-2 no S-3 or S-4 gallop. No murmurs or rubs appreciated. PMI is not displaced. No RV heave. Lungs: Clear bilateral without rales , rhonchi, or wheeze. Abdomen: Normal bowel sounds. Soft. Nontender. No masses or organomegaly. No abdominal bruits. Extremities: 1+ bilateral ankle and pretibial edema. Pulses: radial=2/4. Neuro: No focal deficits. ASSESSMENT: 1. Paroxysmal Atrial fibrillation -CHADS2 Vasc = 3 -regular rhythm on exam today most recent ECG demonstrating sinus rhythm. 2. HTN - controlled 3. Dyslipidemia - tolerating moderate intensity statin therapy 4. Chronic lower extremity edema - multifactorial 5. Urinary symptoms with history of recent UTI PLAN: I had a long discussion with the patient regarding the natural history and pathophysiology of atrial fibrillation. Role for beta-grady therapy reviewed. Patient declines alternative beta-grady atthis time. Await results of Zio monitor. Continue Eliquis. Diuretic protocol reviewed. Patient may take additional 40 mg of furosemide if weight increases more than 2 lb in a 48 hour period, or 5 lb in 1 week. Sodium restriction advised. Continue other medications including atorvastatin, and losartan as ordered. Repeat UA and culture ordered via primary care office today. All questions answered to patient's satisfaction. Follow Up: Return in about 3 months (around 01/01/2024). I spent a total of 40-54 minutes (exact time 42 mins) on the date of service in preparation, delivery, and documentation of the care provided to Lisa Gamboa excluding any time spent in the performance of separately billed services. Shaw Hickey DO, [facility] Associate Cardiology - Elida Ruiz documented in this encounter Nursing Notes * Gwendolyn Khanna LPN - 10/01/2023 10:46 AM EDT Examination Room: 13 Name: Lisa Gamboa Date of : 1955 Reason for Visit: Hosp follow up Problems/Concerns: Feeling better, pulse is not as low Interim Hosp(s): August 2023 - none since Chest Pain/SOB: Denies CP, SOB about the same MyChart Discussed: ALREADY ACTIVE Patient was instructed to not get up on the exam table until directed and assisted by their provider; patient is to remain seated in the chair/ wheelchair/ exam table for fall prevention and safety reasons. Patient is aware staff will assist stepping down off exam table with personnel. documented in this encounter Plan of Treatment Upcoming Encounters Date Type Department Care Team (Latest Contact Info) Description 10/21/2023 2:30 PM EDT Home Visit [facility] at [facility] [address] [place] [address] Nubia Zamora RN [address] [place] [address] 10/24/2023 10:55 AM EDT Hospital Encounter OR [facility], Operating Room [facility] [address] [place] [address] Jc Palafox, [address] [place] [address] 10/24/2023 10:55 AM EDT - 10/24/2023 11:20 AM EDT Surgery OR [facility], Operating Room [facility] [address] [place] [address] Jc Palafox, [address] [place] [address] INJECTION SPINE LUMBAR OR SACRAL 11/04/2023 9:45 AM EDT Imaging Radiology [address] [place] [address] 11/06/2023 9:00 AM EDT Home Visit [facility]k at [facility] [address] [place] [address] Ken Gonzalez PA-C [address] [place] [address] 11/19/2023 8:40 AM EDT Office Visit Family Practice [address] [place] [address] 293 [place] [address] Aviva Rossi DO 293 [place] [address] 01/20/2024 9:00 AM EDT Office Visit Cardiology, [facility] [address] [place] [address] Shaw Hickey DO 132 [facility] [place] [address] Scheduled Procedures Name Priority Associated Diagnoses Date/Ti [...] 05/08/2023, Additional history exists GFR 09/15/2024 09/16/2023, 05/2023, 06/17/2023, Additional history exists Colonoscopy 02/05/2026 [...] as of this encounter Visit Diagnoses Diagnosis PAF (paroxysmal atrial fibrillation) ([facility]CC)- Primary Atrial fibrillation Hospital discharge follow-up Other follow-up examination Hypertension goal BP (blood pressure) < 140/90 [...] and were consensually agreed upon. Care Teams Silica Dry Press Helper Relationship Specialty Start Date End Date Aviva Rossi DO [address] [place] [address] PCP - General Family Medicine 09/09/23 documented as of this encounter
--- OUTSIDE RECORDS SUMMARY | 2023-10-12 10:50 | External Medical Summary | Summary of Care ---
Author Name Unknown Organization [facility] Address [address] [place] [address] Phone [phone] Care Team Providers Care Ironworker Name Role Phone Aviva Rossi DO Primary Care Provider Reason for Visit * Reason Onset Date Comments Med Request 09/29/2023 Encounter Details Date Type Department Care Team (Late st Contact Info) Description 09/29/2023 Telephone Family Practice 65 [facility] [address] [place] [address] Aviva Rossi DO [address] [place], [place] [phone] Med Request Allergies Active Allergy Reactions Criticality Noted Date Comments Codeine 11/20/2012 Nausea and vomiting Lisinopril 06/12/2015 ?cough Penicillin G 11/20/2012 Hives Hydrocodone-Acetaminophen 11/20/2012 Nausea and vomiting documented as of this encounter (statuses as of 09/29/2023) Medications Medication Sig Dispensed Refills Start Date End Date Status Cyanocobalamin 1000 MCG Oral Tablet (Cyanocobalamin) Take 1 Tablet by mouth daily. 03/27/2021 Active Vision Formula Eye Health Oral Capsule Take 1 Capsule by mouth daily. 05/09/2022 Active Dexcom G6 Sensor Use as directed. Use as directed every 10 days to monitor blood sugars 06/20/2022 Active Systane Complete PF 0.6 % Ophthalmic Solution (Propylene Glycol (PF)) Instill 1 Drop into eye as needed for Dry eyes. 09/03/2022 Active Furosemide 40 MG Oral Tablet (Lasix) Take 1 Tablet by mouth in the morning. 09/03/2022 Active Levothyroxine Sodium 50 MCG Oral [...] (No instructions reported), Reported on 09/23/2023 Pen [place] 3/16" 31G X 5 MM Use daily [...] for Pain, Severe. 30 Tablet 09/16/2023 Active Hospital, Clinic, or Other Facility Administered Medication Ordered Dose Route Frequency Start Date End Date Status Albuterol Sulfate (Proventil) (2.5 MG/3ML) 0.083% inhalation solution 2.5 mgIndications:Shortness of breath,History of asthma 2.5 mg NEBULIZER ONCE PRN 01/07/2023 01/07/2024 Active documented as of this encounter (statuses as of 09/29/2023) Active Problems Problem Noted Date Diagnosed Date [...] as of this encounter (statuses as of 09/29/2023) Resolved Problems Problem Noted Date Diagnosed Date [...] start lantus/novolog-refer MTM----, Psychiatrist. Sees Dr Sanders-Lawrence @[facility] [phone] Morbid obesity 12/26/2016 Overview: Per Obesity protocol #1 PMB (postmenopausal bleeding) 11/12/2013 Chronic cough 08/22/2023 Productive cough 08/22/2023 Overview: chronic Left knee injury 06/09/2023 Elevated WBC count 4 documented as of this encounter (statuses as of 09/29/2023) Immunizations Name Administration Dates Next Due COVID-19 mRNA, LNP-s, No Pre serve, 2-Dose Series ([employer]) 09/21/2020,05/22/2020 COVID-19, MRNA-LNP, 23-24, P F, 30 MCG/0.3 mL, 12 YRS AND ABOVE, IM ([employer]) 08/25/2023,01/07/2023 Covid-19, Mrna, Lnp-s, Pf, B ivalent, 30 Mcg, IM, 12 yrs and above ([employer]) 05/09/2022 Pneumococcal Conjugate Vaccine, 20-valent (Prevn ar20) [...] encounter Miscellaneous Notes * Addendum Note - Toro Marquez LPN - 09/29/2023 11:50 AM EDTAddended by: TORO MARQUEZ on: 09/29/2023 11:50 AM Modules accepted: Orders * Telephone Encounter - Toro Marquez LPN - 09/29/2023 11:49 AM EDT Medication pended for approval. Thank you * Telephone Encounter - Nicolette Martinez PHARM Tech - 09/29/2023 10:32 AM EDT Pt calling requesting the following medication below that is listed as "Historical". The following information was provided: Medication Name: Furosemide Strength: 40mg Directions: 1 tab daily Preferred Quantity: 100day Previous Prescriber: PCP Preferred Pharmacy: [facility] Please review and approve if appropriate. Thank you, Nicolette Martinez, Counterperson [facility] ([facility]) 09/29/2023,10:32 AM documented in this encounter Plan of Treatment Upcoming Encounters Date Type Department Care Team (Latest Contact Info) Description 10/01/2023 10:30 AM EDT Office Visit Cardiology, [facility] [address] [place] [address] Shaw Hickey, DO [address] [place] [address] 10/01/2023 1:15 PM EDT Imaging Radiology [address] [place] [address] 10/21/2023 2:30 PM EDT [facility] Visit [facility] [place], [facility] [address] [place] [address] Nubia Zamora, RN [address] [place] [address] 10/24/2023 10:55 AM EDT Hospital Encounter OR [facility], Operating Room [facility] [address] [place] [address] Jc Palafox, DO [address] [place] [address] 10/24/2023 10:55 AM EDT - 10/24/2023 11:20 AM EDT Surgery OR [facility], Operating Room [facility] [address] [place] [address] Jc Palafox, DO [address] [place] [address] INJECTION SPINE LUMBAR OR SACRAL 11/06/2023 9:00 AM EDT [facility] Visit [facility], [facility] [address] [place] [address] Ken Gonzalez PA-C [address] [place] [address] 11/19/2023 8:40 AM EDT Office Visit Family Practice 65 [facility] [place] 293 [place] [address] [facility]iva Rossi[facility] DO [facility] [address] Scheduled Procedures Name Priority Associated Diagnoses Date/Ti [...] 06/17/2023, Additional history exists Colonoscopy 02/05/2026 02/05/2023, 062 10/2022, 11/26/2013 Colorectal Cancer Screening 02/05/2026 Lipid [...] 02/02/2013 6:12 AM 02/02/2013 11:15 AM This ord er reflects the patients wishes and were consensually agreed upon. Care Teams Ironworker Relationship Specialty Start Date End Date Aviva Rossi DO 293 [place] [address] PCP - General Family Medicine 09/09/23 documented as of this encounter
--- OUTSIDE RECORDS SUMMARY | 2023-10-12 10:50 | External Medical Summary | Summary of Care ---
Author Name Unknown Organization [facility] Address [address] [place] [address] Phone [phone] Care Team Providers Care Merchandising Lead Name Role Phone Aviva Rossi DO Primary Care Provider Reason for Visit * Reason Onset Date Comments Medication Question 09/29/2023 Encounter Details Date Type Department Care Team (Late st Contact Info) Description 09/29/2023 Telephone Family Practice 65 [facility] 293 [place] [phone] Aviva Rossi DO [address] [place], [place] [phone] Medication Question Allergies Active Allergy Reactions Criticality Noted Date [...] (No instructions reported), Reported on 09/23/2023 Pen [place] 3/16" 31G X 5 MM Use daily [...] start lantus/novolog-refer MTM----, Psychiatrist. Sees Dr Sanders-Lawrence @[facility] [phone] Morbid obesity 12/26/2016 Overview: Per Obesity protocol #1 PMB (postmenopausal bleeding) 11/12/2013 Chronic cough 08/22/2023 Productive cough 08/22/2023 Overview: chronic Left knee injury 06/09/2023 Elevated WBC count 4 documented as of this encounter (statuses as of 09/29/2023) Immunizations Name Administration Dates Next Due COVID-19 mRNA, LNP-s, No Pre serve, 2-Dose Series ([employer]) 09/21/2020,05/22/2020 COVID-19, MRNA-LNP, 23-24, P F, 30 MCG/0.3 mL, 12 YRS AND ABOVE, IM ([employer]Comirnaty) 08/25/2023,01/07/2023 Covid-19, Mrna, Lnp-s, Pf, B ivalent, 30 Mcg, IM, 12 yrs and above ([employer]) 05/09/2022 Pneumococcal Conjugate Vaccine, 20-valent (Prevn ar20) [...] encounter Miscellaneous Notes * Telephone Encounter - Nicolette Martinez PHARM Tech - 09/29/2023 10:24 AM EDT Pt calling regarding Dexcom sensors. She spoke with her supplier at [facility] and they notified her that they have the order, but are having trouble getting it in stock, and that she likely won't receive it for another 10 days. Pt is asking if the office can give her a holdover supply while she waits for it to be sent, genoe was given one before by Gaby from the clinic. Pt is also asking if she should change supplierssince [facility] is having trouble getting the Dexcom. Please advise pt. Thank you, Nicolette Martinez, Front Line Leader [facility] ([facility]) 09/29/2023,10:30 AM documented in this encounter Plan of Treatment Upcoming Encounters Date Type Department Care Team (Latest Contact Info) Description 10/01/2023 10:30 AM EDT Office Visit Cardiology, [facility] [place] [address] Shaw Hickey O, DO [address] [place] [address] 10/01/2023 1:15 PM EDT Imaging Radiology [facility] [place] [address] [place] [address] 10/21/2023 2:30 PM EDT [facility], [facility] [address] [place] [address] Nubia Zamora, RN [address] [place] [address] 10/24/2023 10:55 AM EDT Hospital Encounter OR [facility], Operating Room [facility] [address] [place] [address] Jc Palafox, DO [address] [place] [address] 10/24/2023 10:55 AM EDT - 10/24/2023 11:20 AM EDT Surgery OR [facility], Operating Room [facility] [address] [place] [address] Jc Palafox, DO [address] [place] [address] INJECTION SPINE LUMBAR OR SACRAL 11/06/2023 9:00 AM EDT [facility] Visit [facility], [facility] [address] [place] [address] Ken Gonzalez PA-C [address] [place] [address] 11/19/2023 8:40 AM EDT Office Visit Family Practice 65 [facility] [place] 293 [place] [address] Aviva Rossi, DO 293 [place] [address] Scheduled Procedures Name Priority Associated Diagnoses Date/Ti [...] and were consensually agreed upon. Care Teams Merchandising Lead Relationship Specialty Start Date End Date Aviva Rossi DO [address] [place] [address] PCP - General Family Medicine 09/09/23 documented as of this encounter
--- OUTSIDE RECORDS SUMMARY | 2023-10-12 10:50 | External Medical Summary | Summary of Care ---
Author Name Unknown Organization [facility] Address [address] [place] [address] Phone [phone] Care Team Providers Care Crozer Name Role Phone Aviva Rossi DO Primary Care Provider [phone] Reason for Visit * Reason Onset Date Comments Medication Question 09/29/2023 Encounter Details Date Type Department Care Team (Late st Contact Info) Description 09/29/2023 Telephone Family Practice 65 [facility] [address] [place] [phone] Aviva Rossi DO 293 [place], [place] [phone] Medication Question Allergies Active Allergy Reactions Criticality [...] (No instructions reported), Reported on 09/23/2023 Pen [place] 3/16" 31G X 5 MM Use daily [...] start lantus/novolog-refer MTM----, Psychiatrist. Sees Dr Sanders-Lawrence @[facility] [phone] Morbid obesity 12/26/2016 Overview: Per Obesity protocol #1 PMB (postmenopausal bleeding) 11/12/2013 Chronic cough 08/22/2023 Productive cough 08/22/2023 Overview: chronic Left knee injury 06/09/2023 Elevated WBC count 4 documented as of this encounter (statuses as of 09/29/2023) Immunizations Name Administration Dates Next Due COVID-19 mRNA, LNP-s, No Pre serve, 2-Dose Series (SlapVid) 09/21/2020,05/22/2020 COVID-19, MRNA-LNP, 23-24, P F, 30 MCG/0.3 mL, 12 YRS AND ABOVE, IM (PlasmaSi-Comirnaty) 08/25/2023,01/07/2023 Covid-19, Mrna, Lnp-s, Pf, B ivalent, 30 Mcg, IM, 12 yrs and above (SlapVid) 05/09/2022 Pneumococcal Conjugate Vaccine, 20-valent (Prevn ar20) [...] sensors. She spoke with her supplier at [facility] and they notified her that they [...] also asking if she should [facility] Dexcom. Please advise pt. Thank you, Nicolette Martinez, Scrap Drop Engineer [facility] ([facility]) 09/29/2023,10:30 AM documented in this encounter Plan of Treatment Upcoming Encounters Date Type Department Care Team (Latest Contact Info) Description 10/01/2023 10:30 AM EDT Office Visit Cardiology, [facility] [place] [address] Shaw Hickey O, DO [address] [place] [address] 10/01/2023 1:15 PM EDT Imaging Radiology [facility] 1st [facility], [place] [address] [place] [address] 10/21/2023 2:30 PM EDT [facility] Visit [facility], [facility] [address] [place] [address] Nubia Zamora, RN [address] [place] [address] 10/24/2023 10:55 AM EDT Hospital Encounter OR [facility], Operating Room [facility] [address] [place] [address] Jc Palafox, DO [address] [place] [address] 10/24/2023 10:55 AM EDT - 10/24/2023 11:20 AM EDT Surgery OR [facility], Operating Room [facility] [address] [place] [address] Jc Palafox, DO [address] [place] [phone] INJECTION SPINE LUMBAR OR SACRAL 11/06/2023 9:00 AM EDT [facility] Visit [facility], [facility] [address] [place] [address] Ken Gonzalez PA-C [address] [place] [address] 11/19/2023 8:40 AM EDT Office Visit Family Practice 65 [facility], [place] 293 [place] [address] Aviva Rossi, DO 293 [place] [address] Scheduled Procedures Name Priority Associated Diagnoses Date/Ti [...] and were consensually agreed upon. Care Teams Crozer Relationship Specialty Start Date End Date Aviva Rossi DO [address] [place] [address] PCP - General Family Medicine 09/09/23 documented as of this encounter
--- OUTSIDE RECORDS SUMMARY | 2023-10-12 10:50 | External Medical Summary | Summary of Care ---
Author Name Unknown Organization [facility] Address [address] [place] [address] Phone [phone] Care Team Providers Care Soap Worker Name Role Phone Aviva Toussaint DO Primary Care Provider Reason for Visit * Reason Onset Date Comments Med Request 09/29/2023 Encounter Details Date Type Department Care Team (Late st Contact Info) Description 09/29/2023 Telephone Family [address] [facility] [place] 293 [place] [address] Aviva Toussaint DO 293 [place], [place] [phone] Med Request Allergies Active Allergy Reactions Criticality [...] days to monitor blood sugars 3 Active Systane Complete PF 0.6 % Ophthalmic Solution (Propylene Glycol (PF)) Instill 1 Drop into eye as needed for Dry eyes. 3 Active Levothyroxine Sodium 50 MCG Oral Tablet [...] 3 Active Additional Information Patient taking differently: 21 Units Subcutaneous Daily(Non-Specified), (No instructions reported), Reported on 09/23/2023 Pen [place] 316" 31G X 5 MM Use daily to inject insulin 4 times daily 400 Each 1 3 Active FLUoxetine HCl 20 MG Oral [...] for Dyspnea. 54 g 1 3 Active Additional Information Patient not taking.Reported on [...] the morning. 90 Tablet 3 4 Active Apixaban 5 MG Oral Tablet (Eliquis)Indication s:Hospital discharge follow-up,Atrial fibrillation with RVR ([facility]) Take 1 Tablet by mouth in the morning and 1 Tablet before bedtime. 60 Tablet 1 4 Active Ondansetron HCl 4 MG Oral TabletIndications:N ausea Take 1 Tablet by mouth every 6 hours as needed for Nausea. 30 Tablet 4 Active Vitamin D-3 125 MCG (5000 UT) [...] 1 Tablet before bedtime. 200 Tablet 3 4 Active Losartan Potassium 25 MG Oral Tablet (Cozaar)Indications :Hypertension goal BP (blood pressure) < 140/90 Take 1 Tablet by mouth in the morning. 100 Tablet 3 4 Active traMADol HCl 50 MG Oral Tablet (Ultram)Indications :Lumbar radiculopathy Take 1 Tablet by mouth daily as needed for Pain, Severe. 30 Tablet 4 Active Furosemide 40 MG Oral Tablet (Lasix) Take 1 Tablet by mouth in the morning. 100 Tablet 3 4 Active Furosemide 40 MG Oral Tablet (Lasix) Take 1 Tablet by mouth in the morning. 3 09/29/19 24 Discontinu ed(Refill) Hospital, Clinic, or Other [...] MTM----, Psychiatrist. Sees Dr Sanders-Lawrence @[facility] [phone] Morbid obesity 12/26/2016 Overview: Per Obesity protocol #1 PMB (postmenopausal bleeding) 11/12/2013 Chronic cough 08/22/2023 Productive cough 08/22/2023 Overview: chronic Left knee injury 06/09/2023 Elevated WBC count 4 documented as of this encounter (statuses as of 09/29/2023) Immunizations Name Administration Dates Next Due COVID-19 mRNA, LNP-s, No Pre serve, 2-Dose Series (Towi) 09/21/2020,05/22/2020 COVID-19, MRNA-LNP, 23-24, P F, 30 MCG/0.3 mL, 12 YRS AND ABOVE, IM ([employer]-Comirnaty) 08/25/2023,01/07/2023 Covid-19, Mrna, Lnp-s, Pf, B ivalent, [...] Addendum Note - Aviva Toussaint DO - 09/29/2023 3:47 PM EDTAddended by: AVIVA TOUSSAINT on: 09/29/2023 03:47 PM Modules accepted: Orders * Telephone Encounter - Aviva Toussaint DO - 09/29/2023 3:47 PM EDT Rx sent. * Addendum Note - Lisa Marquez LPN - 09/29/2023 11:50 AM EDTAddended by: LISA MARQUEZ on: 09/29/2023 11:50 AM Modules accepted: Orders * Telephone Encounter - Lisa Marquez LPN - 09/29/2023 11:49 AM EDT Medication pended for approval. Thank you * Telephone Encounter - Nicolette Martinez PHARM Tech - 09/29/2023 10:32 AM EDT Pt calling requesting the following medication below that is listed as "Historical". The following information was provided: Medication Name: Furosemide Strength: 40mg Directions: 1 tab daily Preferred Quantity: 100day Previous Prescriber: PCP Preferred Pharmacy: [facility] Please review and approve if appropriate. Thank you, Nicolette Martinez, Merchandising Execution Manager [facility] (CCPS) 09/29/2023,10:32 AM documented in this encounter Plan of Treatment Upcoming Encounters Date Type Department Care Team (Latest Contact Info) Description 10/01/2023 10:30 AM EDT Office Visit Cardiology, [facility] [address] [place] [address] Shaw Hickey DO [address] [place] [address] 10/01/2023 1:15 PM EDT Imaging Radiology [facility] [facility] [address] [place] [address] 10/21/2023 2:30 PM EDT Home Visit [facility] [address] [place] [address] Nubia Zamora RN [address] [place] [address] 10/24/2023 10:55 AM EDT Hospital Encounter OR [facility], Operating Room [facility] [address] [place] [address] Jc Palafox DO [address] [place] [address] 10/24/2023 10:55 AM EDT - 10/24/2023 11:20 AM EDT Surgery OR [facility], Operating Room [facility] [address] [place] [address] Jc Palafox DO [address] [place] [address] INJECTION SPINE LUMBAR OR SACRAL 11/06/2023 9:00 AM EDT Home Visit [facility], [facility] [address] [place] [address] Ken Gonzalez PA-C [address] [place] [address] 11/19/2023 8:40 AM EDT Office Visit Family Practice [address] [place], [place] [address] Aviva Toussaint, DO 293 [facility], [place] [address] Scheduled Procedures Name Priority Associated Diagnoses Date/Ti [...] and were consensually agreed upon. Care Teams Soap Worker Relationship Specialty Start Date End Date Aviva Toussaint DO [address] [place] [address] PCP - General Family Medicine 09/09/23 documented as of this encounter
--- OUTSIDE RECORDS SUMMARY | 2023-10-12 10:50 | External Medical Summary | Summary of Care ---
Author Name Unknown Organization [facility] Address [address] [place] [address] Phone [phone] Care Team Providers Care Remote Sensing Scientist Name Role Phone BrianLucy rusttita Gonzales DO Primary Care Provider Reason for Visit * Reason Comments Outpatient Testing Encounter Details Date Type Department Care Team (Late st Contact Info) Description 10/01/2023 11:50 AM EDT Laboratory Laboratory, [facility] [address] [employer] [phone] [facility] [address] [address] Dysuria Allergies Active Allergy Reactions Criticality Noted Date [...] schedule 45 mL 3 11/27/2022 Active Pen [place] 3/16" 31G X 5 MM Use daily [...] start lantus/novolog-refer MTM----, Psychiatrist. Sees Dr Sanders-Lawrence @[facility] [phone] Morbid obesity 12/26/2016 Overview: Per Obesity protocol #1 PMB (postmenopausal bleeding) 11/12/2013 Chronic cough 08/22/2023 Productive cough 08/22/2023 Overview: chronic Left knee injury 06/09/2023 Elevated WBC count 4 documented as of this encounter (statuses as of 10/01/2023) Immunizations Name Administration Dates Next Due COVID-19 mRNA, LNP-s, No Pre serve, 2-Dose Series (Xenome) 09/21/2020,05/22/2020 COVID-19, MRNA-LNP, 23-24, P F, 30 MCG/0.3 mL, 12 YRS AND ABOVE, IM ([employer]-Comirnaty) 08/25/2023,01/07/2023 Covid-19, Mrna, Lnp-s, Pf, B ivalent, 30 Mcg, IM, 12 yrs and above (Xenome) 05/09/2022 Pneumococcal Conjugate Vaccine, 20-valent (Prevn ar20) [...] 2:30 PM EDT [facility] Visit [facility] [address] [place] [address] Nubia Zamora RN 132 [place] [address] 10/24/2023 10:55 AM EDT Hospital Encounter OR [facility], Operating Room [facility] [address] [place] [address] Jc Palafox, [address] [place] [address] 10/24/2023 10:55 AM EDT - 10/24/2023 11:20 AM EDT Surgery OR [facility], Operating Room [facility] [address] [place] [address] Jc Palafox, [address] [place] [address] INJECTION SPINE LUMBAR OR SACRAL 11/04/2023 9:45 AM EDT Imaging Radiology [address] [place] [address] 11/06/2023 9:00 AM EDT [facility] Visit [facility] [address] [place] [address] Ken Gonzalez PA-C [address] [place] [address] 11/19/2023 8:40 AM EDT Office Visit Family Practice 65 [facility] [place] 293 [facility] [place] [phone] Aviva Rossi, DO 293 [place] [address] 01/20/2024 9:00 AM EDT Office Visit Cardiology, [facility] 132 [place] [address] Shaw Hickey, DO 132 [place] [address] Pending Results Name Type Priority Associated Diagnoses [...] as of this encounter Visit Diagnoses Diagnosis Dysuria Lumbar radiculopathy Thoracic or lumbosacral neuritis or [...] and were consensually agreed upon. Care Teams Remote Sensing Scientist Relationship Specialty Start Date End Date Aviva Rossi DO [address] [place] [address] PCP - General Family Medicine 09/09/23 documented as of this encounter
--- OUTSIDE RECORDS SUMMARY | 2023-10-12 10:50 | External Medical Summary ---
Author Name Unknown Address Unknown Organization K01:[facility] [place] [address] [place], [place] [address] [facility] [address] Laboratory Report Ordering Provider Test Date Status BREANA HSU 10/01/2023 11:52:24 Final Observation Date Value Abnormality Reference (Units ) Status Bacteria identified in Specimen by Culture 10/01/2023 11:52:24 [id number]^KLEBSIELL A PNEUMONIAE Abnormal Final 10,000 to 100,000 colonies/m L Klebsiella pneumoniae Bacteria identified in Specimen by Culture 10/01/2023 11:52:24 [id number]^AEROCOCCUS URINAE Abnormal Final 10,000 to 100,000 colonies/m L Aerococcus urinae
The genus species identification occurred by mass spectrometry and its performance characteristics were determined by [employer]. It has not been cleared or approved [...] amoxicillin and nitrofurantoin, but resistant to sulfonamides. Performing Location LABORATORY [address] [facility] [address] Ordering Provider Test Date Status BREANA HSU 10/01/2023 11:52:24 Final Observation Date Value Abnormality Reference (Units ) Status Ampicillin + Sulbactam 10/01/2023 11:52:24 4 Susceptible Final Cefazolin 10/01/2023 11:52:24 <=4 Susceptible Final Cefepime susceptibility 10/01/2023 11:52:24 <=1 Susceptible Final Ceftriaxone suceptibility 10/01/2023 11:52:24 <=1 Susceptible Final Ciprofloxacin 10/01/2023 11:52:24 <=0.25 Susceptible Final Due to serious side effects, the FDA has advised against using Ciprofloxacin to treat uncomplicated UTIs and respiratory tract infections unless there are no alternative treatment options. Gentamicin susceptibility 10/01/2023 11:52:24 <=1 Susc eptible Final Nitrofurantoin susceptibility 10/01/2023 11:52:24 64 Intermediate Final Piperacillin + Tazobactamsusceptibility 10/01/2023 11:52:24 <=4 Susceptible Final TMP-SMZ susceptibility 10/01/2023 11:52:24 <=20 Suscept ible Final Test: Culture, Urine, Quanti tative
Specimen Source: Urine, Clean Catch
Specimen Type: Urine
Specimen Date: 10/01/2023 1152
Result Date: 10/03/2023 1316
Result Status: Final result
Abnormal: Yes
Resulting Lab: [facility] [place]
[address]
[facility] [address]

CULTURE

10,000 to 100,000 colonies/mL Klebsiella pneumoniae (Abnormal)

10,000 to 100,000 colonies/mL Aerococcus urinae (Abnormal)

The genus species identification occurred by mass spectrometry and its
performance characteristics were determined by [facility]. It has not been cleared or approved [...]
amoxicillin and nitrofurantoin, but resistant to sulfonamides.

SUSCEPTIBILITY

Klebsiella
pneumoniae
METHOD MICROBROTH DILUTIONS

AMPICILLIN/SULBACTAM 4 Susceptible
CEFAZOLIN <=4 Susceptible
CEFEPIME <=1 Susceptible
CEFTRIAXONE <=1 Susceptible
CIPROFLOXACIN <=0.25 Susceptible
[1]
GENTAMICIN <=1 Susceptible
NITROFURANTOIN 64 Intermediate
PIPERACILLIN TAZOBACTAM <=4 Susceptible
TRIMETH/SULFAMETHOXAZOLE <=20 Susceptible

[1] Due to serious side effects, the FDA has advised against using
Ciprofloxacin to treat uncomplicated UTIs and respiratory tract infections
unless there are no alternative treatment options.

null Performing Location [facility] [place] [address] [facility] [address]
--- OUTSIDE RECORDS SUMMARY | 2023-10-12 10:50 | External Medical Summary | Summary of Care ---
Author Name Unknown Organization [facility] Address [address] [place] [address] Phone [phone] Care Team Providers Care Electroencephalograph Technician Name Role Phone Aviva Rossi DO Primary Care Provider Reason for Visit * Reason Onset Date Comments Information 10/01/2023 Encounter Details Date Type Department Care Team (Late st Contact Info) Description 10/01/2023 Telephone Family Practice 65 [facility] [address] [place] [address] Aviva Rossi DO 293 [place], [place] [phone] Information Allergies Active Allergy Reactions Criticality Noted [...] schedule 45 mL 3 11/27/2022 Active Pen [place] 3/16" 31G X 5 MM Use daily [...] PFTs done. Some improvement w/albuterol. 08/04 TTE-mild edlcid dysfunction 07/05 start lantus/novolog-refer MTM----, Psychiatrist. Sees Dr Sanders-Lawrence @[facility] [phone] Morbid obesity 12/26/2016 Overview: Per Obesity protocol #1 PMB (postmenopausal bleeding) 11/12/2013 Chronic cough 08/22/2023 Productive cough 08/22/2023 Overview: chronic Left knee injury 06/09/2023 Elevated WBC count 4 documented as of this encounter (statuses as of 10/01/2023) Immunizations Name Administration Dates Next Due COVID-19 mRNA, LNP-s, No Pre serve, 2-Dose Series ([employer]) 09/21/2020,05/22/2020 COVID-19, MRNA-LNP, 23-24, P F, 30 MCG/0.3 mL, 12 YRS AND ABOVE, IM ([employer]-Comirnaty) 08/25/2023,01/07/2023 Covid-19, Mrna, Lnp-s, Pf, B ivalent, 30 Mcg, IM, 12 yrs and above ([employer]) 05/09/2022 Pneumococcal Conjugate Vaccine, 20-valent (Prevn ar20) [...] Description 10/21/2023 2:30 PM EDT [facility] [address] [place] [address] Nubia Zamora RN [address] [place] [address] 10/24/2023 10:55 AM EDT Hospital Encounter OR [facility], Operating Room [facility] [address] [place] [address] Jc Palafox, [address] [place] [address] 10/24/2023 10:55 AM EDT - 10/24/2023 11:20 AM EDT Surgery OR [facility], Operating Room [facility] [address] [place] [address] Jc Palafox, [address] [place] [address] INJECTION SPINE LUMBAR OR SACRAL 11/04/2023 9:45 AM EDT Imaging Radiology [address] [place] [address] 11/06/2023 9:00 AM EDT [facility] Visit [facility], [facility] 132 [facility] [place] [address] Ken Gonzalez PA-C [address] [place] [address] 11/19/2023 8:40 AM EDT Office Visit Family Practice [address] [place] [address] 293 [facility] [place] [address] Aviva Rossi, DO 293 [facility] [place] [address] 01/20/2024 9:00 AM EDT Office Visit Cardiology, [facility] 132 [facility] [place] [address] Shaw Hickey, DO 132 [facility] [place] [address] Pending Results Name Type Priority Associated Diagnoses [...] and were consensually agreed upon. Care Teams Electroencephalograph Technician Relationship Specialty Start Date End Date Aviva Rossi DO [address] [place] [address] PCP - General Family Medicine 09/09/23 documented as of this encounter
--- OUTSIDE RECORDS SUMMARY | 2023-10-12 10:50 | External Medical Summary | Summary of Care ---
Author Name Unknown Organization [facility] Address [address] [place] [address] Phone [phone] Care Team Providers Care Security Professionals Name Role Phone Aviva Rossi DO Primary Care Provider Reason for Visit * Reason Onset Date Comments Medication Question 09/29/2023 Encounter Details Date Type Department Care Team (Late st Contact Info) Description 09/29/2023 Telephone Family Practice 65 [facility] [place] [address] [place] [address] Aviva Rossi DO 293 [place], [place] [phone] Medication Question Allergies Active Allergy Reactions Criticality [...] 1 Capsule by mouth daily. 3 Active Systane Complete PF 0.6 % [...] (No instructions reported), Reported on 09/23/2023 Pen [place] 3/16" 31G X 5 MM Use daily [...] for Pain, Severe. 30 Tablet 4 Active Dexcom G7 Sensor Use as directed. Through DME 4 Active Dexcom G6 Sensor Use as directed. Use as directed every 10 days to monitor blood sugars 3 09/29/19 24 Discontinu ed(Medicat ion List Clean Up) Furosemide 40 MG Oral Tablet (Lasix) Take [...] start lantus/novolog-refer MTM----, Psychiatrist. Sees Dr Sanders[facility]Lawrence [facility] [phone] Morbid obesity 12/26/2016 Overview: Per Obesity protocol #1 PMB (postmenopausal bleeding) 11/12/2013 Chronic cough 08/22/2023 Productive cough 08/22/2023 Overview: chronic Left knee injury 06/09/2023 Elevated WBC count 4 documented as of this encounter (statuses as of 09/29/2023) Immunizations Name Administration Dates Next Due COVID-19 mRNA, LNP-s, No Pre serve, 2-Dose Series ([employer]) 09/21/2020,05/22/2020 COVID-19, MRNA-LNP, 23-24, P F, 30 [...] encounter Miscellaneous Notes * Addendum Note - Gracy Leahy RPh - 09/29/2023 4:34 PM EDT Addended by: GRACY LEAHY on: 09/29/2023 04:34 PM Modules accepted: Orders * Telephone Encounter - Gracy Leahy RPh - 09/29/2023 4:32 PM EDT Submitted supplier change for [facility] medical. Will leave 1 sensor at front desk lead. Gracy Martinez, Jamal D, BCACP Clinical Pharmacist [address] [facility] 09/29/2023, 4:32 PM Ph. [phone] * Telephone Encounter - Nicolette Martinez PHARM Tech - 09/29/2023 10:24 AM EDT Pt calling regarding Dexcom sensors. She spoke with her supplier at [facility] and they notified her that they have the order, but are having trouble getting it in stock, and that she likely won't receive it for another 10 days. Pt is asking if the office can give her a holdover supply while she waits for it to be sent, statesraulitoe was given one before by Gracy from the clinic. Pt is also asking if she should change supplierssince [facility] is having trouble getting the Dexcom. Please advise pt. Thank you, Nicolette Martinez, Computer Numerical Control Programmer [facility] ([facility]PS) 09/29/2023,10:30 AM documented in this encounter Plan of Treatment Upcoming Encounters Date Type Department Care Team (Latest Contact Info) Description 10/01/2023 10:30 AM EDT Office Visit Cardiology, [facility] [address] [place] [address] Shaw Hickey, DO [address] [place] [address] 10/01/2023 1:15 PM EDT Imaging Radiology [facility] 1st [facility] [address] [place] [address] 10/21/2023 2:30 PM EDT [facility] [place] [address] [place] [address] Nubia Zamora RN [address] [place] [address] 10/24/2023 10:55 AM EDT Hospital Encounter OR [facility], Operating Room [facility] [address] [place] [address] Jc Palafox DO [address] [place] [address] 10/24/2023 10:55 AM EDT - 10/24/2023 11:20 AM EDT Surgery OR [facility], Operating Room [facility] [address] [place] [address] Jc Palafox, [address] [place] [address] INJECTION SPINE LUMBAR OR SACRAL 11/06/2023 9:00 AM EDT Home Visit [facility], [facility] [address] [place] [address] Ken Gonzalez PA-C [address] [place] [address] 11/19/2023 8:40 AM EDT Office Visit Family Practice [address], [place] 293 [place] [address] Aviva Rossi DO 293 [facility], [place] [address] Scheduled Procedures Name Priority Associated Diagnoses Date/Ti [...] goal of less than 8.0% ([facility])- Primary Lumbar radiculopathy Thoracic or lumbosacral neuritis [...] and were consensually agreed upon. Care Teams Security Professionals Relationship Specialty Start Date End Date Aviva Rossi DO [address] [address] PCP - General Family Medicine 09/09/23 documented as of this encounter
--- OUTSIDE RECORDS SUMMARY | 2023-10-12 10:50 | External Medical Summary | Summary of Care ---
Author Name Unknown Organization [facility] Address [address] [place] [address] Phone [phone] Care Team Providers Care Tumbling Barrel Painter Name Role Phone Aviva Rossi DO Primary Care Provider [phone] Reason for Visit * Reason Onset Date Comments Med Request 09/29/2023 Encounter Details Date Type Department Care Team (Late st Contact Info) Description 09/29/2023 Telephone Family Practice 65 [facility] [address] [place] [address] Aviva Rossi DO 293 [place], [place] [phone] Med Request Allergies Active Allergy Reactions Criticality [...] (No instructions reported), Reported on 09/23/2023 Pen [place] 3/16" 31G X 5 MM Use daily [...] Sees Dr Sanders-Lawrence @[facility] [phone] Morbid obesity 12/26/2016 Overview: Per Obesity protocol #1 PMB (postmenopausal bleeding) 11/12/2013 Chronic cough 08/22/2023 Productive cough 08/22/2023 Overview: chronic Left knee injury 06/09/2023 Elevated WBC count 4 documented as of this encounter (statuses as of 09/29/2023) Immunizations Name Administration Dates Next Due COVID-19 mRNA, LNP-s, No Pre serve, 2-Dose Series ([employer]) 09/21/2020,05/22/2020 COVID-19, MRNA-LNP, 23-24, P F, 30 MCG/0.3 mL, 12 YRS AND ABOVE, IM ([employer]-Comirnaty) 08/25/2023,01/07/2023 Covid-19, Mrna, Lnp-s, Pf, B ivalent, 30 Mcg, IM, 12 yrs and above ([employer]) 05/09/2022 Pneumococcal Conjugate Vaccine, 20-valent (Prevn ar20) [...] Quantity: 100day Previous Prescriber: PCP Preferred Pharmacy: [facility] Please review and approve if appropriate. Thank you, Nicolette Martinez, Tmh Teacher [facility] ([facility]) 09/29/2023,10:32 AM documented in this encounter Plan of Treatment Upcoming Encounters Date Type Department Care Team (Latest Contact Info) Description 10/01/2023 10:30 AM EDT Office Visit Cardiology, [facility] [address] [place] [address] Shaw Hickey, [address] [place] [address] 10/01/2023 1:15 PM EDT Imaging Radiology [facility] [address] [place] [address] 10/21/2023 2:30 PM EDT Home Visit [facility] at [facility] [address] [place] [address] Nubia Zamora RN [address] [place] [address] 10/24/2023 10:55 AM EDT Hospital Encounter OR OSS, Operating Room [facility]SS [address] [place] [phone] Jc Palafox, DO [address] [place] [phone] 10/24/2023 10:55 AM EDT - 10/24/2023 11:20 AM EDT Surgery OR [facility], Operating Room [facility] [address] [place] [address] Jc Palafox, DO [address] [place] [phone] INJECTION SPINE LUMBAR OR SACRAL 11/06/2023 9:00 AM EDT [facility] [address] [place] [address] Ken Gonzalez PA-C [address] [place] [address] 11/19/2023 8:40 AM EDT Office Visit Family Practice 65 [facility] 293 [place] [address] Aviva Rossi, DO 293 [place] [address] Scheduled Procedures Name Priority Associated Diagnoses Date/Ti [...] and were consensually agreed upon. Care Teams Tumbling Barrel Painter Relationship Specialty Start Date End Date Aviva Rossi DO 293 [place] [address] PCP - General Family Medicine 09/09/23 documented as of this encounter
--- OUTSIDE RECORDS SUMMARY | 2023-10-12 10:50 | External Medical Summary | Summary of Care ---
Author Name Unknown Organization [facility] Address [address] [place] [address] Phone [phone] Care Team Providers Care Prescriptionist Name Role Phone Aviva Rossi DO Primary Care Provider Reason for Visit * Reason Comments Dosage Adjustment Via Phone (anticoag Cl inic) Diabetes Follow-Up Encounter Details Date Type Department Care Team (Late st Contact Info) Description 09/23/2023 11:30 AM EDT Telemedicine Family Practice 65 [facility] 293 [place] [phone] College, Pharmacist [address] [address] Type 2 diabetes mellitus with hemoglobin A1c goal of less than 8.0% ([facility])* Allergies Active Allergy Reactions Criticality Noted Date Comments Codeine 11/20/2012 Nausea and vomiting Lisinopril 06/12/2015 ?cough Penicillin G 11/20/2012 Hives Hydrocodone-Acetaminophen 11/20/2012 Nausea and vomiting documented as of this encounter (statuses as of 09/23/2023) Medications Medication Sig Dispensed Refills Start Date [...] (No instructions reported), Reported on 09/23/2023 Pen [place] 316" 31G X 5 MM Use daily [...] (Eliquis)Indication s:Hospital discharge follow-up,Atrial fibrillation with RVR ([facility]) Take 1 Tablet by mouth [...] as of this encounter (statuses as of 09/23/2023) Active Problems Problem Noted Date Diagnosed Date [...] as of this encounter (statuses as of 09/23/2023) Resolved Problems Problem Noted Date Diagnosed Date [...] start lantus/novolog-refer MTM----, Psychiatrist. Sees Dr Sanders-Lawrence @[facility] [phone] Morbid obesity 12/26/2016 Overview: Per Obesity protocol #1 PMB (postmenopausal bleeding) 11/12/2013 Chronic cough 08/22/2023 Productive cough 08/22/2023 Overview: chronic Left knee injury 06/09/2023 Elevated WBC count 4 documented as of this encounter (statuses as of 09/23/2023) Immunizations Name Administration Dates Next Due COVID-19 mRNA, LNP-s, No Pre serve, 2-Dose Series ([employer]) 09/21/2020,05/22/2020 COVID-19, MRNA-LNP, 23-24, P F, 30 [...] as of this encounter Progress Notes * Gaby Leahy RPh - 09/23/2023 1:04 PM EDT Images from the original note were not included. Diabetes telephone follow - up 09/23/2023 Patient Phone Numbers - Reason for contacting patient: Following up on last week of sugars with adjustment in insulin. Patient reports she misplaced her xultophy pen and used lantus a few days. Did start using xultophy again today from another pen she had at home. - Current diabetic medications: Decrease Xultophy 21 units daily HOLD Novolog at this time (took 1 dose this morning due to being without xultophy) - Glucose review/ SMBG: Therapy Management Assessment/Plan: 1) Diabetes: Patient to continue current regimen of Xultophy and to incorporate some Novolog as shestarts to eat more. Xultophy 21 units daily Novolog 2 units at meals if high carb Follow up in 3 weeks by phone or sooner as needed. Gaby Perez RPh, Pharm D Clinical Pharmacist Med[facility] 09/23/2023, 1:04 PM documented in this encounter Plan of Treatment Upcoming Encounters Date Type Department Care Team (Latest Contact Info) Description 10/01/2023 10:30 AM EDT Office Visit Cardiology, [facility] [address] [place] [address] Shaw Hickey, DO [address] [place] [address] 10/01/2023 1:15 PM EDT Imaging Radiology [address] [place] [address] 10/21/2023 2:30 PM EDT [facility] Visit [facility] [place], [facility] [address] [place] [address] Nubia Zamora RN [address] [place] [address] 10/24/2023 10:55 AM EDT Hospital Encounter OR [facility], Operating Room [facility] [address] [place] [address] Jc Palafox, [address] [place] [address] 10/24/2023 10:55 AM EDT - 10/24/2023 11:20 AM EDT Surgery OR [facility], Operating Room [facility] [address] [place] [address] Jc Palafox, DO [address] [place] [address] INJECTION SPINE LUMBAR OR SACRAL 11/06/2023 9:00 AM EDT [facility] Visit [facility], [facility] [address] [place] [address] Ken Gonzalez PA-C [address] [place] [address] 11/19/2023 8:40 AM EDT Office Visit Family Practice [address] [place] [address] 293 [place] [address] Aviva Rossi, DO [address] [place] [address] Scheduled Procedures Name Priority Associated Diagnoses Date/Ti [...] 08/20/2023 Diabetic Eye Exam 09/09/2024 09/10/2023, , 01/21/2023, Additional history exists GFR 09/15/2024 09/16/2023, 06/0 [...] hemoglobin A1c goal of less than 8.0% ([facility])- Primary Lumbar radiculopathy Thoracic or [...] and were consensually agreed upon. Care Teams Prescriptionist Relationship Specialty Start Date End Date Aviva Rossi DO [address] [facility] [place] [address] PCP - General Family Medicine 09/09/23 documented as of this encounter
--- OUTSIDE RECORDS SUMMARY | 2023-10-12 10:51 | External Medical Summary | Summary of Care ---
Author Name Unknown Organization [facility] Address [address] [place] [address] Phone [phone] Care Team Providers Care Stone Circular Sawyer Name Role Phone Aviva Rossi DO Primary Care Provider Reason for Visit * Reason Onset Date Comments Advice 09/18/2023 Encounter Details Date Type Department Care Team (Late st Contact Info) Description 09/18/2023 Telephone Family Practice 65 [facility] 293 [place] [address] Aviva Rossi DO 293 [place], [place] [phone] Advice Allergies Active Allergy Reactions Criticality Noted Date Comments Codeine 11/20/2012 Nausea and vomiting Lisinopril 06/12/2015 ?cough Penicillin G 11/20/2012 Hives Hydrocodone-Acetaminophen 11/20/2012 Nausea and vomiting documented as of this encounter (statuses as of 09/18/2023) Medications Medication Sig Dispensed Refills Start Date [...] 11/27/2022 Active Additional Information Patient taking differently: 23 Units Subcutaneous Daily(Non-Specified), (No instructions reported), Reported on 09/16/2023 Pen [place] 316" 31G X 5 MM Use daily [...] discharge follow-up,Atrial fibrillation with RVR ([facility]) Take 1 Tablet by mouth in [...] for Pain, Severe. 30 Tablet 09/16/2023 Active Additional Information Patient not taking.Reported on 09/18/2023 Hospital, Clinic, or Other Facility Administered Medication Ordered Dose Route Frequency Start Date End Date Status Albuterol Sulfate (Proventil) (2.5 MG/3ML) 0.083% inhalation solution 2.5 mgIndications:Shortness of breath,History of asthma 2.5 mg NEBULIZER ONCE PRN 01/07/2023 01/07/2024 Active documented as of this encounter (statuses as of 09/18/2023) Active Problems Problem Noted Date Diagnosed Date [...] as of this encounter (statuses as of 09/18/2023) Resolved Problems Problem Noted Date Diagnosed Date [...] start lantus/novolog-refer MTM----, Psychiatrist. Sees Dr Sanders-Lawrence @[facility] [phone] Morbid obesity 12/26/2016 Overview: Per Obesity protocol #1 PMB (postmenopausal bleeding) 11/12/2013 Chronic cough 08/22/2023 Productive cough 08/22/2023 Overview: chronic Left knee injury 06/09/2023 Elevated WBC count 4 documented as of this encounter (statuses as of 09/18/2023) Immunizations Name Administration Dates Next Due COVID-19 mRNA, LNP-s, No Pre serve, 2-Dose Series ([employer]) 09/21/2020,05/22/2020 COVID-19, MRNA-LNP, 23-24, P F, 30 MCG/0.3 mL, 12 YRS AND ABOVE, IM ([employer]-Comirnat) 08/25/2023,01/07/2023 Covid-19, Mrna, Lnp-s, Pf, B ivalent, [...] Telephone Encounter - Lisa Marquez LPN - 09/18/2023 2:46 PM EDT Tomorrow health completed. * Telephone Encounter - Laz Casey DO - 09/18/2023 2:16 PM EDT DME order signed for wheelchair * Telephone Encounter - Lisa Marquez LPN - 09/18/2023 1:39 PM EDT Called patient, wanted to discuss blood work. Did encourage patient to make sure she does PT. Patient is aware and will comply.. Was also told she needs bariatric heavy duty wheelchair. * Telephone Encounter - Mary Ny OSA - 09/18/2023 9:57 AM EDT Lisa Gamboa would like to speak to Michelle documented in this encounter Plan of Treatment Upcoming Encounters Date Type Department Care Team (Late st Contact Info) Description 09/22/2023 1:00 PM EDT Home Visit [facility] Coordination [facility] Integration [address] [facility] [place] [address] Poonam Metcalf, Community Health Sleep Manager [address] [facility] [place] [address] 09/23/2023 11:30 AM EDT Telemedicine Family Practice [address], [place] 293 [place] [address] College, Pharmacist [address] [facility] 293 [place] [address] 10/01/2023 10:30 AM EDT Office Visit Cardiology, [facility] [address] [place] [address] Shaw Hickey, DO [address] [place] [address] 10/01/2023 1:15 PM EDT Imaging Radiology [facility] [address] [place] [address] 10/21/2023 2:30 PM EDT [facility] Visit [facility], [facility] [address] [place] [address] Nubia Zamora, RN [address] [place] [address] 10/24/2023 10:55 AM EDT Hospital Encounter OR [facility], Operating Room [facility] [address] [place] [phone] Jc Palafox, [address] [place] [address] 10/24/2023 10:55 AM EDT - 10/24/2023 11:20 AM EDT Surgery OR [facility], Operating Room [facility] [address] [place] [address] Jc Palafox, DO [address] [place] [address] INJECTION SPINE LUMBAR OR SACRAL 11/06/2023 9:00 AM EDT Home Visit [facility], [facility] [place] [address] Ken Gonzalez PA-C [address] [place] [address] 11/19/2023 8:40 AM EDT Office Visit Family Practice [address] [place] 293 [place] [address] Aviva Rossi DO 293 [place] [address] Scheduled Procedures Name Priority Associated Diagnoses Date/Ti [...] 01/21/2023, Additional history exists GFR 09/15/2024 09/16/2023, 060 [...] Thoracic or lumbosacral neuritis or radiculitis, unspecified New onset atrial fibrillation (HCC) Atrial fibrillation L4-L5 disc bulge Displacement of lumbar intervertebral disc without myelopathy Fall, initial encounter Myasthenia gravis (HCC) Myasthenia gravis without exacerbation BMI 50.0-59.9, adult (HCC) Body Mass Index 50.0-59.9, adult Lumbar radiculopathy Thoracic or lumbosacral neuritis or [...] and were consensually agreed upon. Care Teams Stone Circular Sawyer Relationship Specialty Start Date End Date Aviva Rossi DO 293 [place] [address] PCP - General Family Medicine 09/09/23 documented as of this encounter
--- OUTSIDE RECORDS SUMMARY | 2023-10-12 10:51 | External Medical Summary | Summary of Care ---
Author Name Unknown Organization [facility] Address [address] [place] [address] Phone [phone] Care Team Providers Care Qa Tech Name Role Phone Aviva Rossi DO Primary Care Provider Reason for Visit * Reason Onset Date Comments Information 09/17/202309/16 Encounter Details Date Type Department Care Team (Late st Contact Info) Description 09/17/2023 Telephone Family Practice 65 [facility] 293 [place] [phone] Aviva Rossi DO 293 [place], [place] [phone] Information (09/16) Allergies Active Allergy Reactions Criticality Noted Date [...] (No instructions reported), Reported on 09/16/2023 Pen [place] 316" 31G X 5 MM Use daily [...] (Eliquis)Indication s:Hospital discharge follow-up,Atrial fibrillation with RVR ([facility]) Take 1 Tablet by mouth in [...] start lantus/novolog-refer MTM----, Psychiatrist. Sees Dr Sanders-Lawrence @[facility] [phone] Morbid obesity 12/26/2016 Overview: Per Obesity protocol #1 PMB (postmenopausal bleeding) 11/12/2013 Chronic cough 08/22/2023 Productive cough 08/22/2023 Overview: chronic Left knee injury 06/09/2023 Elevated WBC count 4 documented as of this encounter (statuses as of 09/18/2023) Immunizations Name Administration Dates Next Due COVID-19 mRNA, LNP-s, No Pre serve, 2-Dose Series ([employer]) 09/21/2020,05/22/2020 COVID-19, MRNA-LNP, 23-24, P F, 30 MCG/0.3 mL, 12 YRS AND ABOVE, IM ([employer]Comirnat) 08/25/2023,01/07/2023 Covid-19, Mrna, Lnp-s, Pf, B ivalent, [...] Encounter - Lisa Marquez LPN - 09/18/2023 1:27 PM EDT Will await call if does not allow PT in home. * Telephone Encounter - Mary Ny OSA - 09/18/2023 9:51 AM EDT [facility] called The [facility] she said she is PT is from [facility]. Please call [phone] x1 = [facility] * Telephone Encounter - Aviva Rossi DO - 09/18/2023 6:12 AM EDT Noted. * Telephone Encounter - Michelle Tim LPN - 09/17/2023 3:38 PM EDT Per request of Dr. Rossi, call placed to [facility] to see if HH has been in to see pt. Spoke to Cleo. She states they were to see pt today, but she declined saying she was unavailable. She is rescheduled to be seen on 09/19/23. Requested that [facility] call us if she declines on the . Call placed to patient to follow up on why she declined HH visit today. Pt states she was unavailable today as she is currently in the [employer] office having her fingerprints taken for her [employer] clearance so that she can continue to work. Stressed the importance of allowing Home Health visit. Explained the purpose of HH is to ensure sheis doing well at home. She acknowledged understanding and states they will be visiting on Friday. documented in this encounter Plan of Treatment Upcoming Encounters Date Type Department Care Team (Late st Contact Info) Description 09/22/2023 1:00 PM EDT Home Visit Care Coordination and Integration [address] [place] [address] Poonam Metcalf, Community Health Core Cleaner [address] [place] [address] 09/23/2023 11:30 AM EDT Telemedicine Family Practice 65 [facility] 293 [place] [address] [place], Pharmacist [address] [address] 10/01/2023 10:30 AM EDT Office Visit Cardiology, [facility] [address] [place] [address] Shaw Hickey, [address] [place] [address] 10/01/2023 1:15 PM EDT Imaging Radiology [facility] 1st [facility] [address] [place] [address] 10/21/2023 2:30 PM EDT Home Visit [facility] [place], [facility] [address] [place] [address] Nubia Zamora, RN [address] [place] [address] 10/24/2023 10:55 AM EDT Hospital Encounter OR [facility]SS, Operating Room OSS [address] [place] [address] Jc Palafox, DO [address] [place] [phone] 10/24/2023 10:55 AM EDT - 10/24/2023 11:20 AM EDT Surgery OR O[facility], Operating Room OSS [address] [place] [address] Jc Palafox, DO [address] [place] [address] INJECTION SPINE LUMBAR OR SACRAL 11/06/2023 9:00 AM EDT Home Visit [facility], [facility] [address] [place] [address] Ken Gonzalez PA-C [address] [place] [address] 11/19/2023 8:40 AM EDT Office Visit Family Practice 65 [facility] [place] 293 [place] [address] Aviva Rossi, DO 293 [place] [address] Scheduled Procedures Name Priority Associated Diagnoses Date/Ti [...] and were consensually agreed upon. Care Teams Qa Tech Relationship Specialty Start Date End Date Aviva Rossi DO 293 [facility] [place] [address] PCP - General Family Medicine 09/09/23 documented as of this encounter
--- OUTSIDE RECORDS SUMMARY | 2023-10-12 10:51 | External Medical Summary | Summary of Care ---
Author Name Unknown Organization [facility] Address [address] [place] [address] Phone [phone] Care Team Providers Care Regional Economic Liaison Name Role Phone BrianAviva rust Christian GRIGGS Primary Care Provider [phone] Encounter Details Date Type Department Care Team (Late st Contact Info) Description 09/22/2023 1:00 PM EDT Home Visit [facility] [address], [place] [phone] Poonam Metcalf Community [facility] Electrical Software Engineer [address], [place] [phone] Allergies Active Allergy Reactions Criticality Noted Date Comments Codeine 11/20/2012 Nausea and vomiting Lisinopril 06/12/2015 ?cough Penicillin G 11/20/2012 Hives Hydrocodone-Acetaminophen 11/20/2012 Nausea and vomiting documented as of this encounter (statuses as of 09/22/2023) Medications Medication Sig Dispensed Refills Start Date [...] Active Additional Information Patient not taking.Reported on 09/22/2023 Xultophy 100-3.6 UNIT-MG/ML Subcutaneous Solution Pen-injector (Insulin Degludec-Liraglutid e) Inject up to 50 units daily subcutaneously as directed per titration schedule 45 mL 3 11/27/2022 Active Additional Information Patient taking differently: 23 Units Subcutaneous Daily(Non-Specified), (No instructions reported), Reported on 09/16/2023 Pen [place] 316" 31G X 5 MM Use daily [...] as of this encounter (statuses as of 09/22/2023) Active Problems Problem Noted Date Diagnosed Date [...] as of this encounter (statuses as of 09/22/2023) Resolved Problems Problem Noted Date Diagnosed Date [...] start lantus/novolog-refer MTM----, Psychiatrist. Sees Dr Sanders-Lawrence @[facility] [phone] Morbid obesity 12/26/2016 Overview: Per Obesity protocol #1 PMB (postmenopausal bleeding) 11/12/2013 Chronic cough 08/22/2023 Productive cough 08/22/2023 Overview: chronic Left knee injury 06/09/2023 Elevated WBC count 4 documented as of this encounter (statuses as of 09/22/2023) Immunizations Name Administration Dates Next Due COVID-19 mRNA, LNP-s, No Pre serve, 2-Dose Series (Dasient) 09/21/2020,05/22/2020 COVID-19, MRNA-LNP, 23-24, P F, 30 MCG/0.3 mL, 12 YRS AND ABOVE, IM (GiveForward-Comirnat) 08/25/2023,01/07/2023 Covid-19, Mrna, Lnp-s, Pf, B ivalent, 30 Mcg, IM, 12 yrs and above (Dasient) 05/09/2022 Pneumococcal Conjugate Vaccine, 20-valent (Prevn ar20) [...] Sign Reading Time Taken Comments Blood Pressure 100/58 09/22/2023 1:39 PM EDT Pulse 75 09/22/2023 1:39 PM EDT Temperature 36.1 C (96.9 F) 09/22/2023 1:39 PM ED T Respiratory Rate 20 09/22/2023 1:39 PM EDT Oxygen Saturation 97% 09/22/2023 1:39 PM EDT Inhaled Oxygen Concentration - - Weight - - Height - - Body Mass Index - - documented in this encounter Progress Notes * Poonam Metcalf Community [facility] Electrical Software Engineer - 09/22/2023 1:10 PM EDT Telemedicine visit: No Community [facility] Electrical Software Engineer (ADILENE) documentation: CHW MILADIS visit per RNCM. Pt states that she has not had any new problems or concerns since discharge from hospital. Denies any new falls since discharge Med rec was completed without discrepancies Pt lives in a very cluttered home, paths only to walk through. Trace edema in BLE, pt states this is normal Pt's vitals were good this date. Confirmed contact infor for CM documented in this encounter Plan of Treatment Upcoming Encounters Date Type Department Care Team (Late st Contact Info) Description 09/23/2023 11:30 AM EDT Telemedicine Family Practice 65 [facility] [address] College, Pharmacist [address], [place] [address] 10/01/2023 10:30 AM EDT Office Visit Cardiology, [facility] [address] [place] [address] Shaw Hickey, DO [address] [place] [address] 10/01/2023 1:15 PM EDT Imaging Radiology [facility] [address] [place] [address] 10/21/2023 2:30 PM EDT [facility] Visit [facility] [place], [facility] [address] [place] [address] Nubia Zamora RN [address] [place] [address] 10/24/2023 10:55 AM EDT Hospital Encounter OR [facility], Operating Room [facility] [address] [place] [address] Jc Palafox, [address] [place] [address] 10/24/2023 10:55 AM EDT - 10/24/2023 11:20 AM EDT Surgery OR [facility], Operating Room [facility] [address] [place] [address] Jc Palafox, [address] [place] [address] INJECTION SPINE LUMBAR OR SACRAL 11/06/2023 9:00 AM EDT [facility], [facility] [address] [place] [address] Ken Gonzalez PA-C [address] [place] [address] 11/19/2023 8:40 AM EDT Office Visit Family Practice [address] [place] [address] [place] [address] Aviva Rossi DO [address] [place] [address] Scheduled Procedures Name Priority Associated Diagnoses Date/Ti [...] and were consensually agreed upon. Care Teams Regional Economic Liaison Relationship Specialty Start Date End Date Aviva Rossi DO [address] [place] [address] PCP - General Family Medicine 09/09/23 documented as of this encounter
--- OUTSIDE RECORDS SUMMARY | 2023-10-12 10:51 | External Medical Summary | Summary of Care ---
Author Name Unknown Organization [facility] Address [address] [place] [address] Phone [phone] Care Team Providers Care Bowling Alley Attendant Name Role Phone Aviva Rossi DO Primary Care Provider Reason for Visit * Reason Onset Date Comments Information 09/17/202309/16 Encounter Details Date Type Department Care Team (Late st Contact Info) Description 09/17/2023 Telephone Family Practice 65 [facility] 293 [place] [phone] Aviva Rossi DO [address] [place], [place] [phone] Information (09/16) Allergies Active Allergy Reactions Criticality [...] (No instructions reported), Reported on 09/16/2023 Pen [place] 316" 31G X 5 MM Use daily [...] Oral Tablet Extended Release 12 Hour (Wellbutrin SR)Indications:Naa r depressive disorder, single episode, in partial remission (HCC) Take 1 Tablet by mouth in the morning. 100 Tablet 3 04/04/2023 Active Myrbetriq 50 MG Oral Tablet Extended Release 24 Hour (Mirabegron ER)Indications:Stre ss incontinence Take 1 Tablet by mouth in the morning. 90 Tablet 3 06/17/2023 Active Apixaban 5 MG Oral Tablet (Eliquis)Indication s:Hospital discharge follow-up,Atrial fibrillation with RVR ([facility]) Take 1 Tablet by mouth [...] lantus/novolog-refer MTM----, Psychiatrist. Sees Dr Sanders-Lawrence @[facility] [phone] Morbid obesity 12/26/2016 Overview: Per Obesity protocol #1 PMB (postmenopausal bleeding) 11/12/2013 Chronic cough 08/22/2023 Productive cough 08/22/2023 Overview: chronic Left knee injury 06/09/2023 Elevated WBC count 4 documented as of this encounter (statuses as of 09/18/2023) Immunizations Name Administration Dates Next Due COVID-19 mRNA, LNP-s, No Pre serve, 2-Dose Series (Info) 09/21/2020,05/22/2020 COVID-19, MRNA-LNP, 23-24, P F, 30 MCG/0.3 mL, 12 YRS AND ABOVE, IM (Luxoft-Comirnat) 08/25/2023,01/07/2023 Covid-19, Mrna, Lnp-s, Pf, B ivalent, [...] she said she is PT is from [facility]. Please call [phone] [phone] = VNA * Telephone Encounter - Aviva Rossi DO - 09/18/2023 6:12 AM EDT Noted. * Telephone Encounter - Michelle Tim LPN - 09/17/2023 3:38 PM EDT Per request of Dr. Rossi, call placed to [facility] to see if HH has been in to see pt. Spoke to Cleo. She states they were to see pt today, but she declined saying she was unavailable. She is rescheduled to be seen on 09/19/23. Requested that [facility] call us if she declines on [...] Team (Late st Contact Info) Description 09/18/2023 1:00 PM EDT Home Visit Care Coordination [facility] Integration [address] [place] [address] Radha Pollard, Community [facility] Motorcycle Assembler [address] [place] [address] 09/22/2023 1:00 PM EDT Home Visit [facility] Integration [address] [place] [address] Poonam Metcalf, [facility] Motorcycle Assembler [address] [place] [address] 09/23/2023 11:30 AM EDT Telemedicine Family Practice 65 [facility] 293 [place] [address] College, Pharmacist [address] [address] 10/01/2023 10:30 AM EDT Office Visit Cardiology, [facility] [address] [place] [address] Shaw Hickey, DO [address] [place] [address] 10/01/2023 1:15 PM EDT Imaging Radiology [facility] 1st [facility] [address] [place] [address] 10/21/2023 2:30 PM EDT [facility] Visit [facility] [place], [facility] [address] [place] [address] Nubia Zamora, RN 132 [place] [address] 10/24/2023 10:55 AM EDT Hospital Encounter OR [facility], Operating Room [facility] [address] [place] [phone] Jc Palafox, DO [address] [place] [address] 10/24/2023 10:55 AM EDT - 10/24/2023 11:20 AM EDT Surgery OR [facility], Operating Room [facility] [address] [place] [address] Jc Palafox, DO [address] [place] [address] INJECTION SPINE LUMBAR OR SACRAL 11/06/2023 9:00 AM EDT [facility] [address] [place] [address] Ken Gonzalez PA-C [address] [place] [address] 11/19/2023 8:40 AM EDT Office Visit Family Practice 65 [facility] [place] 293 [facility] [place] [address] Aviva Rossi, DO 293 [place] [address] Scheduled Procedures Name Priority Associated Diagnoses Date/Ti [...] and were consensually agreed upon. Care Teams Bowling Alley Attendant Relationship Specialty Start Date End Date Aviva Rossi DO [address] [place] [address] PCP - General Family Medicine 09/09/23 documented as of this encounter
--- OUTSIDE RECORDS SUMMARY | 2023-10-12 10:51 | External Medical Summary | Summary of Care ---
Author Name Unknown Organization [facility] Address [address] [place] [address] Phone [phone] Care Team Providers Care Hand Suture Winder Name Role Phone Aviva Rossi DO Primary Care Provider [phone] Reason for Visit * Reason Onset Date Comments Information 09/17/202309/16 Encounter Details Date Type Department Care Team (Late st Contact Info) Description 09/17/2023 Telephone Family Practice 65 [facility] 293 [place] [phone] Aviva Rossi DO [address] [place], [place] [phone] Information (09/16) Allergies Active Allergy Reactions Criticality [...] (No instructions reported), Reported on 09/16/2023 Pen [place] 316" 31G X 5 MM Use daily [...] Sees [facility] Sanders[facility]Lawrence @[facility] [phone] Morbid obesity 12/26/2016 Overview: Per Obesity protocol #1 PMB (postmenopausal bleeding) 11/12/2013 Chronic cough 08/22/2023 Productive cough 08/22/2023 Overview: chronic Left knee injury 06/09/2023 Elevated WBC count 4 documented as of this encounter (statuses as of 09/18/2023) Immunizations Name Administration Dates Next Due COVID-19 mRNA, LNP-s, No Pre serve, 2-Dose Series ([employer]) 09/21/2020,05/22/2020 COVID-19, MRNA-LNP, 23-24, P F, 30 MCG/0.3 mL, 12 YRS AND ABOVE, IM (CopperKey-Comirnat) 08/25/2023,01/07/2023 Covid-19, Mrna, Lnp-s, Pf, B ivalent, [...] request of Dr. Rossi, call placed to [facility] to see if HH has been in to see pt. Spoke to Cleo. She states they were to see pt today, but she declined saying she was unavailable. She is rescheduled to be seen on 09/19/23. Requested that [facility] call us if she declines [...] Visit Care Coordination and Integration [address] [place] [address] Radha Pollard, Community Health Tub Attendant [address] [place] [address] 09/22/2023 1:00 PM EDT Home Visit [facility] Integration [address] [place] [address] Poonam Metcalf, Community Health Tub Attendant [address] [place] [address] 10/01/2023 10:30 AM EDT Office Visit Cardiology, [facility] [address] [place] [address] Shaw Hickey, DO [address] [place] [address] 10/01/2023 1:15 PM EDT Imaging Radiology [address] [place] [address] 10/21/2023 2:30 PM EDT [facility], [facility] [address] [place] [address] Nubia Zamora, RN [address] [place] [address] 10/24/2023 10:55 AM EDT Hospital Encounter OR [facility], Operating Room [facility] [address] [place] [address] Jc Palafox, DO [address] [place] [address] 10/24/2023 10:55 AM EDT - 10/24/2023 11:20 AM EDT Surgery OR [facility], Operating Room [facility] [address] [place] [address] Jc Palafox, DO [address] [place] [address] INJECTION SPINE LUMBAR OR SACRAL 11/06/2023 9:00 AM EDT [facility] Visit [facility], [facility] [address] [place] [address] Ken Gonzalez PA-C [address] [place] [address] 11/19/2023 8:40 AM EDT Office Visit Family Practice [address], [place] [address] [facility], [place] [address] Aviva Rossi DO 293 [facility] [address] Scheduled Procedures Name Priority Associated Diagnoses Date/Ti [...] were consensually agreed upon. Care Teams Hand Suture Winder Relationship Specialty Start Date End Date Aviva Rossi DO [address] [place] [address] PCP - General Family Medicine 09/09/23 documented as of this encounter
--- OUTSIDE RECORDS SUMMARY | 2023-10-12 10:51 | External Medical Summary | Summary of Care ---
Author Name Unknown Organization [facility] Address [address] [place] [address] Phone [phone] Care Team Providers Care Coin Machine Operator Name Role Phone Aviva Rossi DO Primary Care Provider [phone] Reason for Visit * Reason Onset Date Comments Test Results 09/17/2023 Encounter Details Date Type Department Care Team (Late st Contact Info) Description 09/17/2023 Telephone Family Practice 65 [facility] [address] [place] [address] Aviva Rossi DO [address] [place], [place] [phone] Test Results Allergies Active Allergy Reactions Criticality Noted Date [...] (No instructions reported), Reported on 09/16/2023 Pen [place] 316" 31G X 5 MM Use daily [...] (Eliquis)Indication s:Hospital discharge follow-up,Atrial fibrillation with RVR ([facility]) Take 1 Tablet by mouth [...] Psychiatrist. Sees Dr Sanders-Lawrence @[facility] [phone] Morbid obesity 12/26/2016 Overview: Per Obesity protocol #1 PMB (postmenopausal bleeding) 11/12/2013 Chronic cough 08/22/2023 Productive cough 08/22/2023 Overview: chronic Left knee injury 06/09/2023 Elevated WBC count 4 documented as of this encounter (statuses as of 09/18/2023) Immunizations Name Administration Dates Next Due COVID-19 mRNA, LNP-s, No Pre serve, 2-Dose Series (STYLHUNT) 09/21/2020,05/22/2020 COVID-19, MRNA-LNP, 23-24, P F, 30 [...] Marquez LPN - 09/18/2023 1:39 PM EDT Patient is aware and will comply.. Thank you * Telephone Encounter - Aviva Rossi DO - 09/17/2023 3:44 PM EDT Renal function near baseline. Will monitor. No need for any change presently. Remains improved fromhospital. documented in this encounter Plan of Treatment Upcoming Encounters Date Type Department Care Team (Late st Contact Info) Description 09/22/2023 1:00 PM EDT Home Visit Care Coordination and Integration [address] [place] [address] Poonam Metcalf, Community Health Travel Insurance Agent [address] [place] [address] 09/23/2023 11:30 AM EDT Telemedicine Family Practice 65 [facility] [address] [place] [phone] College, Pharmacist 65 [facility] 293 [place] [address] 10/01/2023 10:30 AM EDT Office Visit Cardiology, [facility] [address] [place] [address] Shaw Hickey, DO [address] [place] [address] 10/01/2023 1:15 PM EDT Imaging Radiology [address] [place] [address] 10/21/2023 2:30 PM EDT [facility] [place], [facility] [address] [place] [address] Nubia Zamora RN [address] [place] [address] 10/24/2023 10:55 AM EDT Hospital Encounter OR [facility], Operating Room [facility] [address] [place] [address] Jc Palafox, [address] [place] [address] 10/24/2023 10:55 AM EDT - 10/24/2023 11:20 AM EDT Surgery OR [facility], Operating Room [facility] [address] [place] [address] Jc Palafox, DO [address] [place] [address] INJECTION SPINE LUMBAR OR SACRAL 11/06/2023 9:00 AM EDT [facility] Visit [facility], [facility] [address] [place] [address] Ken Gonzalez PA-C [address] [place] [address] 11/19/2023 8:40 AM EDT Office Visit Family Practice [address] [place] [address] 293 [place] [address] Aviva Rossi, DO [address] [place] [address] Scheduled Procedures Name Priority Associated Diagnoses Date/Ti [...] 06/17/2023, Additional history exists Colonoscopy 02/05/2026 02/05/2023, 06/2 10/2022, 11/26/2013 Colorectal Cancer Screening 02/05/2026 Lipid [...] and were consensually agreed upon. Care Teams Coin Machine Operator Relationship Specialty Start Date End Date Aviva Rossi DO [address] [place] [address] PCP - General Family Medicine 09/09/23 documented as of this encounter
--- OUTSIDE RECORDS SUMMARY | 2023-10-12 10:51 | External Medical Summary | Summary of Care ---
Author Name Unknown Organization [facility] Address [address] [place] [address] Phone [phone] Care Team Providers Care Asphalt Screed Operator Name Role Phone Aviva Rossi DO Primary Care Provider Reason for Visit * Reason Comments Dosage Adjustment In Person (Anticoag Cl inic) Medication Management Encounter Details Date Type Department Care Team (Late st Contact Info) Description 09/16/2023 9:20 AM EDT Pharmacy Family Practice 65 [facility] [address] [place] [address] College, Pharmacist [address] [address] Medication management* Allergies Active Allergy Reactions Criticality Noted Date [...] by mouth in the morning. 3 Active Levothyroxine Sodium 50 MCG Oral [...] 3 Active Additional Information Patient taking differently: 23 Units Subcutaneous Daily(Non-Specified), (No instructions reported), Reported on 09/16/2023 Pen [place] 316" 31G X 5 MM Use daily [...] depressive disorder, single episode, in partial remission ([facility]) Take 1 Tablet by mouth daily. 100 [...] Mild. (Up to 3000 mg daily) Active Potassium Chloride ER 10 MEQ Oral Tablet Extended Release Take 1 Tablet by mouth in the morning. 3 09/16/19 24 Discontinu ed(Medicat ion List Clean Up) Famotidine 20 MG Oral Tablet (Pepcid)Indications :Gastroesophageal reflux disease, unspecified whether esophagitis present TAKE ONE TABLET BY MOUTH EVERY MORNING 200 Tablet 3 3 09/16/19 24 Discontinu ed(Refill) Insulin Glargine Solostar 100 UNIT/ML Subcutaneous Solution Pen-injectorIndicat ions:Diabetes mellitus with peripheral vascular disease ([facility]),Type 2 diabetes mellitus with hemoglobin A1c goal of less than 8.0% ([facility]) Titrate down per titration schedule as starting Xultophy. Pt reports she is currently taking 4 units. 3 09/16/19 24 Discontinu ed(Medicat ion List Clean Up) metoprolol succinate XL 12.5 MG OR TB24 Take 0.5 Tablets by mouth in the morning and 0.5 Tablets before bedtime. 09/16/19 24 Discontinu ed(Medicat ion List Clean Up) Losartan Potassium 25 MG Oral Tablet (Cozaar)Indications :Hypertension goal BP (blood pressure) < 140/90 Take 1 Tablet by mouth in the morning. 30 Tablet 1 4 09/16/19 24 Discontinu ed(Refill) Sulfamethoxazole-Tr imethoprim 800-160 MG Oral Tablet (Bactrim DS) Take 1 Tablet by mouth in the morning and 1 Tablet before bedtime. Do all this for 7 days. Until gone. 14 Tablet 4 09/16/19 24 Discontinu ed(Medicat ion List Clean Up) Hospital, Clinic, or Other Facility Administered Medication [...] lantus/novolog-refer MTM----, Psychiatrist. Sees Dr Sanders-Lawrence @[facility] [phone] Morbid obesity 12/26/2016 Overview: Per Obesity protocol #1 PMB (postmenopausal bleeding) 11/12/2013 Chronic cough 08/22/2023 Productive cough 08/22/2023 Overview: chronic Left knee injury 06/09/2023 Elevated WBC count 4 documented as of this encounter (statuses as of 09/18/2023) Immunizations Name Administration Dates Next Due COVID-19 mRNA, LNP-s, No Pre serve, 2-Dose Series ([employer]) 09/21/2020,05/22/2020 COVID-19, MRNA-LNP, 23-24, P F, 30 [...] No 08/20/2023 Does the household have a [facility] source [facility] income? (Household - for ages [...] as of this encounter Progress Notes * Wade Martinez, Gaby Polanco, [facility] - 09/16/2023 8:59 AM EDT Medication Therapy Disease Management Clinic - Medication Reconciliation Lisa Gamboa is an 68 year old being seen for medication reconciliation. Med Rec Reason: MILADIS Prescription insurance information: [employer] Do you have any other prescription coverage: No Preferred pharmacy: [facility] ([facility]) [x] Problem list reviewed [x] Allergies reviewed and updated if needed [x] Drug interaction check completed [x] HEDIS list addressed Immunizations: Up to Date Date of Hospital Admission/Primary Diagnosis: 09/03 - [facility] - ARF (after prior admission for CHF/new onset afib and klebsiella UTI) Date of Discharge from Hospital: 09/08/23 Medication changes during admission/on discharge: Added: none Modified: none Discontinued: bactrim - gave cefepime inpatient instead; metoprolol due to bradycardia, potassium Does the patient currently have all of their medications in their home?: Yes Labs/Vitals/Risk Scores: The 10-year ASCVD risk score (Vianney NATHAN, et al., 2019) is: 17.7% Values used to calculate the score: Age: 68 years Sex: Female Is Non- : No Diabetic: Yes Tobacco smoker: No Systolic Blood Pressure: 114 mmHg Is BP treated: Yes HDL Cholesterol: 58 mg/dL Total Cholesterol: 173 mg/dL BP Readings from Last 3 Encounters: 09/11/23 114/64 08/25/23 128/80 06/17/23 138/80 Recent Labs Units 06/17/23 0952 01/07/23 1237 08/06/22 1624 HEMOGLOBIN A1C - GABBY % 6.1* 6.5* 6.8* Recent Labs Units 08/25/23 1300 06/17/23 0952 01/07/23 1237 ESTIMATED GLOMERULAR FILTRATION RATE - GABBY mL/min 59* 71 58* Serum creatinine: 1 mg/dL 08/25/23 1300 Estimated creatinine clearance: 66.2 mL/min Assessment & Plan: Medication discrepancies identified: - patient reports taking some old percocet that she had at home due to pain and likely taking over 3000mg acetaminophen due to pain. Only taking 1/2 a percocet at a time and occasionally. - has been taking varying amts of Xultophy and no Novolog since discharge Dose/frequency of medications appropriate for current renal function? yes Other medication problems identified: n/a Patient education provided: - Advised to keep acetaminophen < 3000 mg per day - Advised to avoid old pain meds and keep to pcp prescribed meds Referral pended for follow up management of: N/A Summary- Changes & Recommendations: Med rec completed with patient. Advised to stick with 21 units of Xultophy for 1 week and we'll see how CGM is looking. Gaby Perez [facility] Clinical Pharmacist - Music Specialist Medication Therapy Management Clinic 09/16/2023, 8:59 AM Eliquis - savings card documented in this encounter Plan of Treatment Upcoming Encounters Date Type Department Care Team (Late st Contact Info) Description 09/18/2023 1:00 PM EDT Home Visit [facility] [address] [place] [address] Radha Pollard, Community Health Superintendent Laundry [address] [place] [address] 09/22/2023 1:00 PM EDT Home Visit [facility] Integration [address] [place] [facility] [place] [address] Poonam Metcalf, Community Health Superintendent [place]undry [address] [place] [address] 09/23/2023 11:30 AM EDT Telemedicine Family Practice 65 [facility] 293 [place] [address] College, Pharmacist 65 [facility] 293 [place] [address] 10/01/2023 10:30 AM EDT Office Visit Cardiology, [facility] 132 [facility] [place] [address] Shaw Hickey, DO 132 [facility] [place] [address] 10/01/2023 1:15 PM EDT Imaging Radiology [address] [place] [address] 10/21/2023 2:30 PM EDT [facility], [facility] [address] [place] [address] Nubia Zamora, RN [address] [place] [address] 10/24/2023 10:55 AM EDT Hospital Encounter OR [facility], Operating Room [facility] [address] [place] [address] Jc Palafox, DO [address] [place] [address] 10/24/2023 10:55 AM EDT - 10/24/2023 11:20 AM EDT Surgery OR [facility], Operating Room [facility] [address] [place] [address] Jc Palafox, DO [address] [place] [address] INJECTION SPINE LUMBAR OR SACRAL 11/06/2023 9:00 AM EDT [facility] Visit [facility], [facility] [address] [place] [address] Ken Gonzalez PA-C [address] [place] [address] 11/19/2023 8:40 AM EDT Office Visit Family Practice [address] [place] 293 [place] [address] Aviva Rossi, DO 293 [place] [address] Scheduled Procedures Name Priority Associated Diagnoses Date/Ti [...] 01/21/2023, Additional history exists GFR 09/15/2024 09/16/2023, 0605/2023, [...] as of this encounter Visit Diagnoses Diagnosis Medication management- Primary Encounter for long-term (current) use of [...] and were consensually agreed upon. Care Teams Asphalt Screed Operator Relationship Specialty Start Date End Date Aviva Rossi DO [address] [place] [address] PCP - General Family Medicine 09/09/23 documented as of this encounter
--- OUTSIDE RECORDS SUMMARY | 2023-10-12 10:51 | External Medical Summary | Summary of Care ---
Author Name Unknown Organization [facility] Address [address] [place] [address] Phone [phone] Care Team Providers Care Asbestos Brake Lining Finisher Name Role Phone Aviva Rossi DO Primary Care Provider Reason for Visit * Reason Comments Dosage Adjustment In Person (Anticoag Cl inic) Diabetes Follow-Up Encounter Details Date Type Department Care Team (Late st Contact Info) Description 09/16/2023 10:00 AM EDT Office Visit Family Practice 65 [facility] 293 [place] [phone] College, Pharmacist [address] [address] Type 2 diabetes mellitus with hemoglobin A1c goal of less than 8.0% ([facility])* Allergies Active Allergy Reactions Criticality Noted Date [...] (No instructions reported), Reported on 09/16/2023 Pen [place] 316" 31G X 5 MM Use daily [...] by mouth in the morning. 100 Capsule 12/09/2022 Active ProAir HFA 108 (90 Base) [...] start lantus/novolog-refer MTM----, Psychiatrist. Sees Dr Sanders-Lawrence @[facility] [phone] Morbid obesity 12/26/2016 Overview: Per Obesity protocol #1 PMB (postmenopausal bleeding) 11/12/2013 Chronic cough 08/22/2023 Productive cough 08/22/2023 Overview: chronic Left knee injury 06/09/2023 Elevated WBC count documented as of this encounter (statuses as of 09/22/2023) Immunizations Name Administration Dates Next Due COVID-19 mRNA, LNP-s, No Pre serve, 2-Dose Series ([employer]) 09/21/2020,05/22/2020 COVID-19, MRNA-LNP, 23-24, P F, 30 MCG/0.3 mL, 12 YRS AND ABOVE, IM ([employer]-Comirnat) 08/25/2023,01/07/2023 Covid-19, Mrna, Lnp-s, Pf, B [...] Progress Notes * Wade Martinez, Gaby Polanco, [facility] - 09/18/2023 9:02 AM EDT Medication Therapy Disease Management Clinic - Diabetes Management Progress Note Lisa Gamboa, identified by name and date of , is a 68 year old female being seen for diabetes management/education. Patient presents for return diabetic visit. DIABETES: Current diabetic medications: Xultophy - currently taking 23 units daily Novolog per CR 1:7 plus CF 1:20>120 - not using Medication Injection Site: Abdomen Lifestyle: Diet: unchanged Glucose Review/SMBG: Readings obtained from patient device Hypoglycemia: Does your blood sugar go below 70 mg/dL? Yes Hyperglycemia symptoms present: none Recent Labs Units 06/17/23 0952 01/07/23 1237 08/06/22 1624 HEMOGLOBIN A1C - [facility] % 6.1* 6.5* 6.8* Recent Labs Units 09/16/23 1130 08/25/23 1300 06/17/23 0952 ESTIMATED GLOMERULAR FILTRATION RATE - [facility] mL/min 49* 59* 71 CREATININE - [facility] mg/dL 1.2* 1.0 0.9 HYPERTENSION: Patient on ACEi/ARB: yes BP Readings from Last 3 Encounters: 09/16/23 118/68 09/11/23 114/64 08/25/23 128/80 Blood pressure at goal: yes HYPERLIPIDEMIA: Patient is taking moderate or high intensity statin: yes HEALTH MAINTENANCE REVIEW: Health Maintenance Due Topic Date Due Mammogram 06/05/2023 ASSESSMENT & PLAN: ICD-10-CM 1. Type 2 diabetes mellitus with hemoglobin A1c goal of less than 8.0% ([facility]) E11.9 BG Readings - Blood sugars controlled. Is having some lows, so asked patient to decrease insulin a little. Medications - Reviewed current regimen, patient is not adherent to regimen. Has been adjusting insulin levels. Asked patient to stay consistent for a week and we'll follow up to see what she needs. Diet, Exercise, Lifestyle - No significant lifestyle changes since last visit. Discussed with patient. Patient is agreeable to SMBG with Dexcom G6 CGM. Patient aware to contact clinic if any hypoglycemia before next visit. MEDICATION CHANGES: yes, see below; preferred pharmacy: [facility] ([facility]) Diabetic Medications: Decrease Xultophy 21 units daily HOLD Novolog at this time HEALTH MAINTENANCE INTERVENTIONS: Labs: Up to Date Immunizations: Up to Date Foot Exam: Up to Date Eye Exam: Up to Date Annual Wellness Visit: Up to Date FOLLOW UP: Return to clinic in 1 weeks 09/23/2023 Gaby Perez [facility] Clinical Pharmacist - Merg[employer] Acquisitions Manager Medication Therapy Management Clinic 09/18/2023, 9:02 AM documented in this encounter Plan of Treatment Upcoming Encounters Date Type Department Care Team (Late st Contact Info) Description 09/22/2023 1:00 PM EDT Home Visit Care Coordination and Integration [address] [place] [address] Poonam Metcalf Community Health Rn Hemodialysis Charge [address] [place] [address] 09/23/2023 11:30 AM EDT Telemedicine Family Practice 65 [facility] 293 [facility] [place] [address] College, Pharmacist [address] [place] [address] 10/01/2023 10:30 AM EDT Office Visit Cardiology, [facility] [address] [place] [address] Shaw Hickey, DO [address] [place] [address] 10/01/2023 1:15 PM EDT Imaging Radiology [address] [place] [address] 10/21/2023 2:30 PM EDT Home Visit [facility] [place], [facility] [address] [place] [address] Nubia Zamora RN [address] [place] [address] 10/24/2023 10:55 AM EDT Hospital Encounter OR [facility], Operating Room [facility] [address] [place] [address] Jc Palafox, [address] [place] [address] 10/24/2023 10:55 AM EDT - 10/24/2023 11:20 AM EDT Surgery OR [facility], Operating Room [facility] [address] [place] [address] Jc Palafox, DO [address] [place] [address] INJECTION SPINE LUMBAR OR SACRAL 11/06/2023 9:00 AM EDT Home Visit [facility], [facility] [address] [place] [address] Ken Gonzalez PA-C [address] [place] [address] 11/19/2023 8:40 AM EDT Office Visit Family Practice [address] [place] 293 [facility] [place] [address] Aviva Rossi DO 293 [facility] [place] [address] Scheduled Procedures Name Priority Associated Diagnoses Date/Ti [...] of less than 8.0% ([facility])- Primary Lumbar radiculopathy Thoracic or lumbosacral neuritis [...] and were consensually agreed upon. Care Teams Asbestos Brake Lining Finisher Relationship Specialty Start Date End Date Aviva Rossi DO 293 [facility] [place] [address] PCP - General Family Medicine 09/09/23 documented as of this encounter
--- OUTSIDE RECORDS SUMMARY | 2023-10-12 10:51 | External Medical Summary | Summary of Care ---
Author Name Unknown Organization [facility] Address [address] [place] [address] Phone [phone] Care Team Providers Care Panel Wirer Name Role Phone BrianAviva rust Christian GRIGGS Primary Care Provider Encounter Details Date Type Department Care Team (Late st Contact Info) Description 09/18/2023 Population Health External Data Unspecified Department Allergies [...] (No instructions reported), Reported on 09/16/2023 Pen [place] 316" 31G X 5 MM Use daily [...] Sees [facility] Sanders[facility]Lawrence @[facility] [phone] Morbid obesity 12/26/2016 Overview: Per Obesity protocol #1 PMB (postmenopausal bleeding) 11/12/2013 Chronic cough 08/22/2023 Productive cough 08/22/2023 Overview: chronic Left knee injury 06/09/2023 Elevated WBC count documented as of this encounter (statuses as of 09/18/2023) Immunizations Name Administration Dates Next Due COVID-19 mRNA, LNP-s, No Pre serve, 2-Dose Series ([employer]) 09/21/2020,05/22/2020 COVID-19, MRNA-LNP, 23-24, P F, 30 [...] Visit Care Coordination and Integration [address] [place] [address] Radha Pollard, Community Health Coiled Tubing Supervisor [address] [place] [address] 09/22/2023 1:00 PM EDT Home Visit Care Coordination and Integration [address] [place] [address] Poonam Metcalf, [facility] Coiled Tubing Supervisor [address] [place] [address] 10/01/2023 10:30 AM EDT Office Visit Cardiology, [facility] [address] [place] [address] Shaw Hickey, DO [address] [place] [address] 10/01/2023 1:15 PM EDT Imaging Radiology [facility] [address] [place] [address] 10/21/2023 2:30 PM EDT [facility] Visit [facility] [place], [facility] [address] [place] [address] Nubia Zamora, RN [address] [place] [address] 10/24/2023 10:55 AM EDT Hospital Encounter OR [facility], Operating Room [facility] [address] [place] [phone] Jc Palafox, [address] [place] [address] 10/24/2023 10:55 AM EDT - 10/24/2023 11:20 AM EDT Surgery OR [facility], Operating Room [facility] [address] [place] [phone] Jc Palafox DO [address] [place] [address] INJECTION SPINE LUMBAR OR SACRAL 11/06/2023 9:00 AM EDT [facility] [address] [place] [address] Ken Gonzalez PA-C [address] [place] [address] 11/19/2023 8:40 AM EDT Office Visit Family Practice [address], [place] 293 [place] [address] Aviva Rossi, DO 293 [place] [address] Scheduled Procedures Name Priority Associated Diagnoses Date/Ti [...] and were consensually agreed upon. Care Teams Panel Wirer Relationship Specialty Start Date End Date Aviva Rossi DO 293 [place] [address] PCP - General Family Medicine 09/09/23 documented as of this encounter
--- OUTSIDE RECORDS SUMMARY | 2023-10-12 10:51 | External Medical Summary | Summary of Care ---
Author Name Unknown Organization [facility] Address [address] [place] [address] Phone [phone] Care Team Providers Care Rec Therapist Name Role Phone BrianAviva rust Christian GRIGGS Primary Care Provider [phone] Encounter Details Date Type Department Care Team (Late st Contact Info) Description 09/19/2023 Population Health External Data Unspecified Department Allergies Active Allergy Reactions Criticality Noted Date Comments Codeine 11/20/2012 Nausea and vomiting Lisinopril 06/12/2015 ?cough Penicillin G 11/20/2012 Hives Hydrocodone-Acetaminophen 11/20/2012 Nausea and vomiting documented as of this encounter (statuses as of 09/19/2023) Medications Medication Sig Dispensed Refills Start Date [...] (No instructions reported), Reported on 09/16/2023 Pen [place] 316" 31G X 5 MM Use daily [...] (Eliquis)Indication s:Hospital discharge follow-up,Atrial fibrillation with RVR ([facility]) Take 1 Tablet by mouth in the [...] as of this encounter (statuses as of 09/19/2023) Active Problems Problem Noted Date Diagnosed Date [...] as of this encounter (statuses as of 09/19/2023) Resolved Problems Problem Noted Date Diagnosed Date [...] start lantus/novolog-refer MTM----, Psychiatrist. Sees Dr Sanders-Lawrence @[facility] [phone] Morbid obesity 12/26/2016 Overview: Per Obesity protocol #1 PMB (postmenopausal bleeding) 11/12/2013 Chronic cough 08/22/2023 Productive cough 08/22/2023 Overview: chronic Left knee injury 06/09/2023 Elevated WBC count 4 documented as of this encounter (statuses as of 09/19/2023) Immunizations Name Administration Dates Next Due COVID-19 mRNA, LNP-s, No Pre serve, 2-Dose Series ([employer]) 09/21/2020,05/22/2020 COVID-19, MRNA-LNP, 23-24, P F, 30 MCG/0.3 mL, 12 YRS AND ABOVE, IM ([employer]-Comirnaty) 08/25/2023,01/07/2023 Covid-19, Mrna, Lnp-s, Pf, B ivalent, 30 Mcg, IM, 12 yrs and above ([employer]) 05/09/2022 Pneumococcal Conjugate Vaccine, 20-valent (Prevn ar20) [...] Visit Care Coordination and Integration [address] [facility] [address] Poonam Metcalf, Community Health Senior Technical Editor [address] [place] [address] 09/23/2023 11:30 AM EDT Telemedicine Family Practice 65 [facility] [address] [place] [address] College, Pharmacist [address] [address] 10/01/2023 10:30 AM EDT Office Visit Cardiology, [facility] [address] [place] [address] Shaw Hickey, DO [address] [place] [address] 10/01/2023 1:15 PM EDT Imaging Radiology [facility] [address] [facility] [address] [place] [address] 10/21/2023 2:30 PM EDT [facility] Visit [facility], [facility] [address] [place] [address] Nubia Zamora, RN [address] [place] [address] 10/24/2023 10:55 AM EDT Hospital Encounter OR [facility], Operating Room [facility] [address] [place] [address] Jc Palafox, DO [address] [place] [address] 10/24/2023 10:55 AM EDT - 10/24/2023 11:20 AM EDT Surgery OR [facility], Operating Room [facility] [address] [place] [address] Jc Palafox, DO [address] [place] [address] INJECTION SPINE LUMBAR OR SACRAL 11/06/2023 9:00 AM EDT [facility] [address] [place] [address] Ken Gonzalez PA-C [address] [place] [address] 11/19/2023 8:40 AM EDT Office Visit Family Practice 65 [facility] [place] 293 [place] [address] Aviva Rossi, DO 293 [facility] [place] [address] Scheduled Procedures Name Priority Associated Diagnoses Date/Ti [...] and were consensually agreed upon. Care Teams Rec Therapist Relationship Specialty Start Date End Date Aviva Rossi DO [address] [place] [address] PCP - General Family Medicine 09/09/23 documented as of this encounter
--- OUTSIDE RECORDS SUMMARY | 2023-10-12 10:51 | External Medical Summary | Summary of Care ---
Author Name Unknown Organization [facility] Address [address] [place] [address] Phone [phone] Care Team Providers Care Channel Business Manager Name Role Phone BrianAviva rust Christian GRIGGS Primary Care Provider [phone] Encounter Details Date Type Department Care Team (Late st Contact Info) Description 09/18/2023 1:00 PM EDT Home Visit [facility] [address], [place] [id number] Radha Pollard, Community Health Drilling Superintendent [address], [place] [id number] Allergies Active Allergy Reactions Criticality Noted Date [...] (No instructions reported), Reported on 09/16/2023 Pen [place] 316" 31G X 5 MM Use daily [...] lantus/novolog-refer MTM----, Psychiatrist. Sees Dr Sanders-Lawrence @[facility] [phone] Morbid obesity 12/26/2016 Overview: Per Obesity protocol #1 PMB (postmenopausal bleeding) 11/12/2013 Chronic cough 08/22/2023 Productive cough 08/22/2023 Overview: chronic Left knee injury 06/09/2023 Elevated WBC count 4 documented as of this encounter (statuses as of 09/18/2023) Immunizations Name Administration Dates Next Due COVID-19 mRNA, LNP-s, No Pre serve, 2-Dose Series ([employer]) 09/21/2020,05/22/2020 COVID-19, MRNA-LNP, 23-24, P F, 30 MCG/0.3 mL, 12 YRS AND ABOVE, IM ([employer]ten[employer]Comirnat) 08/25/2023,01/07/2023 Covid-19, Mrna, Lnp-s, Pf, B ivalent, [...] Sign Reading Time Taken Comments Blood Pressure 120/70 09/18/2023 2:11 PM EDT Pulse 76 09/18/2023 2:11 PM EDT Temperature 36.5 C (97.7 F) 09/18/2023 2:11 PM ED T Respiratory Rate - - Oxygen Saturation 99% 09/18/2023 2:11 PM EDT Inhaled Oxygen Concentration - - Weight - - Height - - Body Mass Index - - documented in this encounter Progress Notes * Radha Pollard, Community Health Drilling Superintendent - 09/18/2023 1:56 PM EDT Telemedicine visit: No Community Health Drilling Superintendent (ADILENE) documentation: CHW initiated home visit with patient. Patient reported that she has not been weighing herself for the past few days because she has been sleeping late and is out of a routine. CHW got her scale for patient and patient weighed herself while CHW as there and patient did struggle a little getting up and balancing on the scale. Took a few times to get a reading and for it to read and send however itwas successful. Patient talked about getting rid of her couch that she sleeps on and getting a recliner, CHW suggested a hospital bed and patient said she has thought about this. Patient reported that she gets dizzy and sob with exertion. Is having pain however its tolerable. Is not a pain pill person. Radha Pollard- Community Health Worker 1 Support Services/[facility] [email or web address] documented in this encounter Plan of Treatment Upcoming Encounters Date Type Department Care Team (Late st Contact Info) Description 09/22/2023 1:00 PM EDT Home Visit Care Coordination and Integration [address] [place] [facility] [place] [address] Poonam Metcalf Community Health Drilling Superintendent [address] [place] [address] 09/23/2023 11:30 AM EDT Telemedicine Family Practice 65 [facility] [place] 293 [place] [address] College, Pharmacist [address] [place] [address], [place] [address] 10/01/2023 10:30 AM EDT Office Visit Cardiology, [facility] [address] [place] [address] Shaw Hickey, DO [address] [place] [address] 10/01/2023 1:15 PM EDT Imaging Radiology [facility] 1st [facility] [address] [place] [address] 10/21/2023 2:30 PM EDT [facility] Visit [facility], [facility] [address] [place] [address] Nubia Zamora, RN [address] [place] [address] 10/24/2023 10:55 AM EDT Hospital Encounter OR [facility], Operating Room [facility] [address] [place] [phone] Jc Palafox, DO [address] [place] [address] 10/24/2023 10:55 AM EDT - 10/24/2023 11:20 AM EDT Surgery OR [facility], Operating Room [facility] [address] [place] [id number] Jc Palafox, [address] [place] [address] INJECTION SPINE LUMBAR OR SACRAL 11/06/2023 9:00 AM EDT Home Visit [facility] [address] [place] [address] Ken Gonzalez PA-C [address] [place] [address] 11/19/2023 8:40 AM EDT Office Visit Family Practice [address], [place] [address] [place] [address] Aviva Rossi, DO 293 [place] [address] Scheduled Procedures Name Priority Associated Diagnoses Date/Ti [...] and were consensually agreed upon. Care Teams Channel Business Manager Relationship Specialty Start Date End Date Aviva Rossi DO [address] [place] [address] PCP - General Family Medicine 09/09/23 documented as of this encounter
--- OUTSIDE RECORDS SUMMARY | 2023-10-12 10:52 | External Medical Summary | Summary of Care ---
Author Name Unknown Organization [facility] Address [address] [place] [address] Phone [phone] Care Team Providers Care Osteopathic Physician Name Role Phone Aviva Rossi DO Primary Care Provider Encounter Details Date Type Department Care Team (Late st Contact Info) Description 09/12/2023 Orders Only Family Practice [address], [place] [address] [place] [phone] Aviva Rossi DO [address] [place], [place] [phone] Allergies Active Allergy Reactions Criticality Noted Date Comments Codeine 11/20/2012 Nausea and vomiting Lisinopril 06/12/2015 ?cough Penicillin G 11/20/2012 Hives Hydrocodone-Acetaminophen 11/20/2012 Nausea and vomiting documented as of this encounter (statuses as of 09/12/2023) Medications Medication Sig Dispensed Refills Start Date [...] taking 25 units., Reported on 08/25/2023 Pen [place] 3" 31G X 5 MM Use daily [...] s:Hospital discharge follow-up,Atrial fibrillation with RVR ([facility]) Take 1 Tablet by mouth in the morning and 1 Tablet before bedtime. 60 Tablet 1 08/25/2023 Active Ondansetron HCl 4 MG Oral TabletIndications:N ausea Take 1 Tablet by mouth every 6 hours as needed for Nausea. 30 Tablet 09/01/2023 Active Vitamin D-3 125 MCG (5000 UT) Oral Tablet Take 1 Tablet by mouth in the morning. Active Hospital, Clinic, or Other Facility Administered Medication Ordered Dose Route Frequency Start Date End Date Status Albuterol Sulfate (Proventil) (2.5 MG/3ML) 0.083% inhalation solution 2.5 mgIndications:Shortness of breath,History of asthma 2.5 mg NEBULIZER ONCE PRN 01/07/2023 01/07/2024 Active documented as of this encounter (statuses as of 09/12/2023) Active Problems Problem Noted Date Diagnosed Date [...] . Vocal cords. ENT in [facility]. 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 Sees Dr Sanders-Lawrence @[facility] [phone] Morbid obesity 12/26/2016 Overview: Per Obesity protocol #1 PMB (postmenopausal bleeding) 11/12/2013 Chronic cough 08/22/2023 Productive cough 08/22/2023 Overview: chronic Left knee injury 06/09/2023 Elevated WBC count 4 documented as of this encounter (statuses as of 09/12/2023) Immunizations Name Administration Dates Next Due COVID-19 mRNA, LNP-s, No Pre serve, 2-Dose Series ([employer]) 09/21/2020,05/22/2020 COVID-19, MRNA-LNP, 23-24, P F, 30 [...] 9:20 AM EDT Pharmacy Family Practice 65 [facility] 293 [place] [address] College, Pharmacist [address] [address] 09/16/2023 9:40 AM EDT Office Visit Family Practice 65 [facility] [address] [place] [address] Aviva Rossi, DO [address] [place] [address] 09/16/2023 11:15 AM EDT Imaging Radiology [facility] 1st [facility] [address] [place] [address] 09/18/2023 4:00 PM EDT Home Visit Care Coordination and Integration [address] [facility] [place] [address] Radha Pollard, Community Health Bandage Winding Machine Operator [address] [facility] [place] [address] 09/22/2023 1:00 PM EDT Home Visit Care Coordination and Integration [address] [place] [address] Poonam Metcalf, Community Health Bandage Winding Machine Operator [address] [place] [facility] [place] [address] 10/01/2023 10:30 AM EDT Office Visit Cardiology, [facility] [address] [place] [address] Shaw Hickey, DO [address] [place] [address] 10/21/2023 2:30 PM EDT [facility] Visit [facility], [facility] [address] [place] [address] Nubia Zamora RN [address] [place] [address] 10/24/2023 10:55 AM EDT Hospital Encounter OR [facility], Operating Room [facility] [address] [place] [address] Jc Palafox, [address] [place] [phone] 10/24/2023 10:55 AM EDT - 10/24/2023 11:20 AM EDT Surgery OR [facility], Operating Room [facility] [address] [place] [address] Jc Palafox, [address] [place] [address] INJECTION SPINE LUMBAR OR SACRAL 11/06/2023 9:00 AM EDT Home Visit [facility], [facility] [address] [place] [address] Ken Gonzalez PA-C [address] [place] [address] 11/11/2023 1:00 PM EDT Nurse Only Ancillary [address], [place] 293 [place] [address] College, Nurse Annual Wellness Visit [address] [facility] 293 [place] [address] Scheduled Procedures Name Priority Associated Diagnoses Date/Ti me INJECTION SPINE LUMBAR OR SACRAL Lumbar radiculopathy 10/24/2023 10:55 AM EDT COLONOSCOPY FLEXIBLE PROXIMAL DIAGNOSTIC Recall History of colonic polyps Health Maintenance Due Date Last Done Comments Cologuard 1998 Fecal Occult Blood Test 1998 Sigmoidoscopy 1998 Mammogram 06/05/2023 06/04/2022, 09/17/2013 HbA1c 12/18/2023 06/17/2023, 12/22, 08/06/2022, Additional history exists Diabetic Eye Exam 05/08/2024 09/10/2023, , 01/21/2023, Additional history exists Albumin/Creatinine Ratio 06/16/2024 024, [...] Procedure Name Priority Date/Time Associated Diagnosis Comments DIABETIC EYE EXAM Routine 09/10/2023 documented in this encounter Results * DIABETIC EYE EXAM (09/10/2023) 09/10/2023 History Per Patient OTHER OUTSIDE LAB (SEE SCANNED REPORT) documented in this encounter Advance Directives * [...] and were consensually agreed upon. Care Teams Osteopathic Physician Relationship Specialty Start Date End Date Aviva Rossi DO 293 [place] [address] PCP - General Family Medicine 09/09/23 documented as of this encounter
--- OUTSIDE RECORDS SUMMARY | 2023-10-12 10:52 | External Medical Summary | Summary of Care ---
Author Name Unknown Organization [facility] Address [address] [place] [address] Phone [phone] Care Team Providers Care Medical Sonographer Name Role Phone Aviva Rossi DO Primary Care Provider Encounter Details Date Type Department Care Team (Late st Contact Info) Description 09/08/2023 Population Health External Data Unspecified Department Allergies Active Allergy Reactions Criticality Noted Date Comments Codeine 11/20/2012 Nausea and vomiting Lisinopril 06/12/2015 ?cough Penicillin G 11/20/2012 Hives Hydrocodone-Acetaminophen 11/20/2012 Nausea and vomiting documented as of this encounter (statuses as of 09/08/2023) Medications Medication Sig Dispensed Refills Start Date [...] taking 25 units., Reported on 08/25/2023 Pen [place] 06/06" 31G X 5 MM Use daily [...] discharge follow-up,Atrial fibrillation with RVR ([facility]) Take 1 Tablet by mouth [...] as of this encounter (statuses as of 09/08/2023) Active Problems Problem Noted Date Diagnosed Date [...] as of this encounter (statuses as of 09/08/2023) Resolved Problems Problem Noted Date Diagnosed Date [...] lantus/novolog-refer MTM----, Psychiatrist. Sees Dr Sanders-Lawrence @[facility] [phone] Morbid obesity 12/26/2016 Overview: Per Obesity protocol #1 PMB (postmenopausal bleeding) 11/12/2013 Chronic cough 08/22/2023 Productive cough 08/22/2023 Overview: chronic Left knee injury 06/09/2023 Elevated WBC count 4 documented as of this encounter (statuses as of 09/08/2023) Immunizations Name Administration Dates Next Due COVID-19 mRNA, LNP-s, No Pre serve, 2-Dose Series ([employer]) 09/21/2020,05/22/2020 COVID-19, MRNA-LNP, 23-24, P F, 30 MCG/0.3 mL, 12 YRS AND ABOVE, IM (Vibe[employer]ck-ComirnatEnterMedia) 08/25/2023,01/07/2023 Covid-19, Mrna, Lnp-s, Pf, B ivalent, 30 Mcg, IM, 12 yrs and above ([employer]) 05/09/2022 Pneumococcal Conjugate Vaccine, 20-valent (Prevn ar20) [...] Description 09/11/2023 12:30 PM EDT [facility] Visit [facility] 132 [facility] [place] [address] Nubia Zamora, RN 132 [facility] [place] [address] 09/16/2023 9:40 AM EDT Office Visit Family Practice [address], [place] 293 [facility] [address] Aviva Rossi DO 293 [facility] [place] [address] 09/16/2023 11:15 AM EDT Imaging Radiology [facility] 1st [facility] 132 [facility] [place] [address] 10/01/2023 10:30 AM EDT Office Visit Cardiology, [facility] [address] [place] [address] Shaw Hickey, DO [address] [place] [address] 10/24/2023 10:55 AM EDT Hospital Encounter OR [facility], Operating Room [facility] [address] [place] [id number] Jc Palafox, DO [address] [place] [address] 10/24/2023 10:55 AM EDT - 10/24/2023 11:20 AM EDT Surgery OR [facility], Operating Room [facility] [address] [place] [address] Jc Palafox, DO [address] [place] [address] INJECTION SPINE LUMBAR OR SACRAL 11/06/2023 9:00 AM EDT [facility] [address] [place] [address] Ken Gonzalez PA-C [address] [place] [address] 11/11/2023 1:00 PM EDT Nurse Only Ancillary 65 [facility] 293 [place] [address] College, Nurse Annual Wellness Visit 65 [facility] 293 [place] [address] Scheduled Procedures Name Priority Associated Diagnoses Date/Ti [...] and were consensually agreed upon. Care Teams Medical Sonographer Relationship Specialty Start Date End Date Aivva Rossi DO PCP - General Family Medicine 05/09/22 documented as of this encounter
--- OUTSIDE RECORDS SUMMARY | 2023-10-12 10:52 | External Medical Summary | Summary of Care ---
Author Name Unknown Organization [facility] Address [address] [place] [address] Phone [phone] Care Team Providers Care Carpenter Mate Name Role Phone Aviva Rossi DO Primary Care Provider Encounter Details Date Type Department Care Team (Late st Contact Info) Description 09/08/2023 Telephone Cardiology, [facility] [address] [place] [address] Ashwini Rios CRNP [address] [place] [address] Allergies Active Allergy Reactions Criticality Noted Date Comments Codeine 11/20/2012 Nausea and vomiting Lisinopril 06/12/2015 ?cough Penicillin G 11/20/2012 Hives Hydrocodone-Acetaminophen 11/20/2012 Nausea and vomiting documented as of this encounter (statuses as of 09/11/2023) Medications Medication Sig Dispensed Refills Start Date [...] taking 25 units., Reported on 08/25/2023 Pen [place] 316" 31G X 5 MM Use daily to inject insulin 4 times daily 400 Each 1 11/27/2022 Active Insulin Glargine Solostar 100 UNIT/ML Subcutaneous Solution Pen-injectorIndicat ions:Diabetes mellitus with peripheral vascular disease (HCC),Type 2 diabetes mellitus with hemoglobin A1c goal of less than 8.0% ([facility]) Titrate down per titration schedule as starting [...] (Eliquis)Indication s:Hospital discharge follow-up,Atrial fibrillation with RVR ([facility]) Take 1 Tablet by mouth in the [...] as of this encounter (statuses as of 09/11/2023) Active Problems Problem Noted Date Diagnosed Date [...] as of this encounter (statuses as of 09/11/2023) Resolved Problems Problem Noted Date Diagnosed Date [...] lantus/novolog-refer MTM----, Psychiatrist. Sees Dr Sanders-Lawrence @[facility] [phone] Morbid obesity 12/26/2016 Overview: Per Obesity protocol #1 PMB (postmenopausal bleeding) 11/12/2013 Chronic cough 08/22/2023 Productive cough 08/22/2023 Overview: chronic Left knee injury 06/09/2023 Elevated WBC count 4 documented as of this encounter (statuses as of 09/11/2023) Immunizations Name Administration Dates Next Due COVID-19 mRNA, LNP-s, No Pre serve, 2-Dose Series ([employer]) 09/21/2020,05/22/2020 COVID-19, MRNA-LNP, 23-24, P F, 30 [...] encounter Miscellaneous Notes * Telephone Encounter - Ashwini Rios CRNP - 09/09/2023 3:11 PM EDT Noted. Thank you! Ashwini * Telephone Encounter - Lenore Glasgow CMA - 09/09/2023 7:55 AM EDT Home enrollment kit ordered as requested. Will call [facility] to request expedited processing of monitor upon return. * Telephone Encounter - Ashwini Rios CRNP - 09/08/2023 3:39 PM EDT Patient is currently hospitalized, possible discharge tomorrow. Can we please mail her a 14 day ZIO to apply at home NORIS. She is scheduled to see Dr. Hickey midJuly and needs to keep that appt (September 30) I believe. Thank you, Ashwini documented in this encounter Plan of Treatment Upcoming Encounters Date Type Department Care Team (Late st Contact Info) Description 09/16/2023 9:20 AM EDT Pharmacy Family Practice [address], [address] [place] [address] College, Pharmacist 65 [facility] 293 [place] [address] 09/16/2023 9:40 AM EDT Office Visit Family Practice [address], [place] 293 [place] [address] Aviva Rossi, DO 293 [place] [address] 09/16/2023 11:15 AM EDT Imaging Radiology [facility] 1st [facility] 132 [facility] [place] [address] 09/18/2023 4:00 PM EDT Home Visit Care Coordination and Integration [address] [place] [address] Radha Pollard, Community Health Park Worker Supervisor [address] [place] [address] 09/22/2023 1:00 PM EDT Home Visit Care Coordination and Integration [address] [place] [address] Poonam Metcalf, Community Health Park Worker Supervisor [address] [place] [address] 10/01/2023 10:30 AM EDT Office Visit Cardiology, [facility] [address] [place] [address] Shaw Hickey, DO [address] [place] [address] 10/21/2023 2:30 PM EDT [facility] Visit [facility], [facility] [address] [place] [address] Nubia Zamora, RN [address] [place] [address] 10/24/2023 10:55 AM EDT Hospital Encounter OR [facility], Operating Room [facility] [address] [place] [address] Jc Palafox, DO [address] [place] [address] 10/24/2023 10:55 AM EDT - 10/24/2023 11:20 AM EDT Surgery OR O[facility], Operating Room [facility] [address] [place] [address] Jc Palafox, DO [address] [place] [address] INJECTION SPINE LUMBAR OR SACRAL 11/06/2023 9:00 AM EDT [facility] [address] [place] [address] Ken Gonzalez PA-C [address] [place] [address] 11/11/2023 1:00 PM EDT Nurse Only Ancillary 65 [facility] 293 [place] [address] College, Nurse Annual Wellness Visit [address] [place] [address] Scheduled Orders Name Type Priority Associated Diagnoses Orde r Schedule EXTERNAL EKG 8 TO 15 DAYS HOME ENROLLMENT Holter Routine New onset atrial fibrillation (HCC) Hospital discharge follow-up Near syncope Generalized weakness Expected: 09/08/2023 (Approximate), Expires: 09/07/2024 Scheduled Procedures Name Priority Associated Diagnoses Date/Ti [...] onset atrial fibrillation (HCC)- Primary Atrial fibrillation Hospital discharge follow-up Other follow-up examination Near syncope Syncope and collapse Generalized weakness Other malaise and fatigue Lumbar radiculopathy Thoracic or lumbosacral neuritis or [...] and were consensually agreed upon. Care Teams Carpenter Mate Relationship Specialty Start Date End Date Aviva Rossi DO [address] [place] [address] PCP - General Family Medicine 09/09/23 documented as of this encounter
--- OUTSIDE RECORDS SUMMARY | 2023-10-12 10:52 | External Medical Summary | Summary of Care ---
Author Name Unknown Organization [facility] Address [address] [place] [address] Phone [phone] Care Team Providers Care Instrument Engineer Name Role Phone BrianAviva rust Christian GRIGGS Primary Care Provider [phone] Encounter Details Date Type Department Care Team (Late st Contact Info) Description 09/17/2023 Population Health External Data Unspecified Department Allergies Active Allergy Reactions Criticality Noted Date Comments Codeine 11/20/2012 Nausea and vomiting Lisinopril 06/12/2015 ?cough Penicillin G 11/20/2012 Hives Hydrocodone-Acetaminophen 11/20/2012 Nausea and vomiting documented as of this encounter (statuses as of 09/17/2023) Medications Medication Sig Dispensed Refills Start Date [...] (No instructions reported), Reported on 09/16/2023 Pen [place] 316" 31G X 5 MM Use daily [...] as of this encounter (statuses as of 09/17/2023) Active Problems Problem Noted Date Diagnosed Date [...] as of this encounter (statuses as of 09/17/2023) Resolved Problems Problem Noted Date Diagnosed Date [...] start lantus/novolog-refer MTM----, Psychiatrist. Sees Dr Sanders-Lawrence @[facility] [phone] Morbid obesity 12/26/2016 Overview: Per Obesity protocol #1 PMB (postmenopausal bleeding) 11/12/2013 Chronic cough 08/22/2023 Productive cough 08/22/2023 Overview: chronic Left knee injury 06/09/2023 Elevated WBC count documented as of this encounter (statuses as of 09/17/2023) Immunizations Name Administration Dates Next Due COVID-19 mRNA, LNP-s, No Pre serve, 2-Dose Series ([employer]) 09/21/2020,05/22/2020 COVID-19, MRNA-LNP, 23-24, P F, 30 [...] Team (Late st Contact Info) Description 09/18/2023 4:00 PM EDT Home Visit [facility] Coordination and Integration [address] [place] [address] Radha Pollard, Community Health Communications Writer [address] [place] [address] 09/22/2023 1:00 PM EDT Home Visit Care Coordination and Integration [address] [place] [address] Poonam Metcalf, [facility] Health Communications Writer [address] [place] [address] 10/01/2023 10:30 AM EDT Office Visit Cardiology, [facility] [address] [place] [address] Shaw Hickey, DO [address] [place] [address] 10/01/2023 1:15 PM EDT Imaging Radiology [facility] 1st [facility] [address] [place] [address] 10/21/2023 2:30 PM EDT [facility] [place] [address] [place] [address] Nubia Zamora, RN [address] [place] [address] 10/24/2023 10:55 AM EDT Hospital Encounter OR [facility], Operating Room [facility] [address] [place] [phone] Jc Palafox, [address] [place] [address] 10/24/2023 10:55 AM EDT - 10/24/2023 11:20 AM EDT Surgery OR [facility], Operating Room [facility] [address] [place] [phone] Jc Paalfox DO [address] [place] [address] INJECTION SPINE LUMBAR OR SACRAL 11/06/2023 9:00 AM EDT [facility] [address] [place] [address] Ken Gonzalez PA-C [address] [place] [address] 11/19/2023 8:40 AM EDT Office Visit Family Practice [address], [place] 293 [facility] [place] [address] Aviva Rossi, DO 293 [place] [address] Scheduled Procedures Name Priority Associated Diagnoses Date/Ti [...] and were consensually agreed upon. Care Teams Instrument Engineer Relationship Specialty Start Date End Date Aviva Rossi DO [address] [place] [address] PCP - General Family Medicine 09/09/23 documented as of this encounter
--- OUTSIDE RECORDS SUMMARY | 2023-10-12 10:52 | External Medical Summary | Summary of Care ---
Author Name Unknown Organization [facility] Address [address] [place] [address] Phone [phone] Care Team Providers Care Gear Setter Name Role Phone BrianLucy rusttita Gonzales DO Primary Care Provider Encounter Details Date Type Department Care Team (Late st Contact Info) Description 09/15/2023 Population Health External Data Unspecified Department Allergies Active Allergy Reactions Criticality Noted Date Comments Codeine 11/20/2012 Nausea and vomiting Lisinopril 06/12/2015 ?cough Penicillin G 11/20/2012 Hives Hydrocodone-Acetaminophen 11/20/2012 Nausea and vomiting documented as of this encounter (statuses as of 09/16/2023) Medications Medication Sig Dispensed Refills Start Date [...] taking 25 units., Reported on 08/25/2023 Pen [place] 06/06" 31G X 5 MM Use daily to inject insulin 4 times daily 400 Each 1 11/27/2022 Active Insulin Glargine Solostar 100 UNIT/ML Subcutaneous Solution Pen-injectorIndicat ions:Diabetes mellitus with peripheral vascular disease (HCC),Type 2 diabetes mellitus with hemoglobin A1c goal of less than 8.0% ([facility]) Titrate down per titration schedule [...] as of this encounter (statuses as of 09/16/2023) Active Problems Problem Noted Date Diagnosed Date [...] as of this encounter (statuses as of 09/16/2023) Resolved Problems Problem Noted Date Diagnosed Date [...] start lantus/novolog-refer MTM----, Psychiatrist. Sees Dr Sanders-Lawrence @[facility] [phone] Morbid obesity 12/26/2016 Overview: Per Obesity protocol #1 PMB (postmenopausal bleeding) 11/12/2013 Chronic cough 08/22/2023 Productive cough 08/22/2023 Overview: chronic Left knee injury 06/09/2023 Elevated WBC count 4 documented as of this encounter (statuses as of 09/16/2023) Immunizations Name Administration Dates Next Due COVID-19 mRNA, LNP-s, No Pre serve, 2-Dose Series (AFINOS) 09/21/2020,05/22/2020 COVID-19, MRNA-LNP, 23-24, P F, 30 MCG/0.3 mL, 12 YRS AND ABOVE, IM (Usentric-Comirnat) 08/25/2023,01/07/2023 Covid-19, Mrna, Lnp-s, Pf, B ivalent, 30 Mcg, IM, 12 yrs and above (AFINOS) 05/09/2022 Pneumococcal Conjugate Vaccine, 20-valent (Prevn ar20) [...] 9:20 AM EDT Pharmacy Family Practice [facility] [address] [place] [phone] College, Pharmacist [address] [address] 09/16/2023 9:40 AM EDT Office Visit Family Practice [facility] [address] [place] [phone] Aviva Rossi DO [address] [place] [address] 09/16/2023 11:15 AM EDT Imaging Radiology [address], [address] [place] [address] 09/18/2023 4:00 PM EDT Home Visit [facility] [address] [place] [address] Radha Pollard, Community [facility] National Sales Representative [address] [place] [address] 09/22/2023 1:00 PM EDT Home Visit [facility] [address] [place] [address] Poonam Metcalf, Community Health National Sales Representative [address] [place] [address] 10/01/2023 10:30 AM EDT Office Visit Cardiology, [facility] [address] [place] [address] Shaw Hickey, DO [address] [place] [address] 10/21/2023 2:30 PM EDT Home Visit [facility], [facility] [address] [place] [address] Nubia Zamora, RN [address] [place] [address] 10/24/2023 10:55 AM EDT Hospital Encounter OR [facility], Operating Room [facility] [address] [place] [address] Jc Palafox, DO [address] [place] [address] 10/24/2023 10:55 AM EDT - 10/24/2023 11:20 AM EDT Surgery OR [facility], Operating Room [facility] [address] [place] [address] Jc Palafox, DO [address] [place] [address] INJECTION SPINE LUMBAR OR SACRAL 11/06/2023 9:00 AM EDT Home Visit [facility], [facility] [address] [place] [address] Ken Gonazlez PA-C [address] [place] [address] 11/11/2023 1:00 PM EDT Nurse Only Ancillary [facility] 293 [place] [address] [place], Nurse Annual Wellness Visit [address] [place] [address] Scheduled Procedures Name Priority Associated Diagnoses Date/Ti [...] 08/24/2024 08/25/2023, 05/23, 01/07/2023, Additional history exists Diabetic Eye Exam 09/09/2024 09/10/2023, , 01/21/2023, Additional history exists Colonoscopy 02/05/2026 02/05/2023, 08/23, [...] and were consensually agreed upon. Care Teams Gear Setter Relationship Specialty Start Date End Date Aviva Rossi DO [address] [place] [address] PCP - General Family Medicine 09/09/23 documented as of this encounter
--- OUTSIDE RECORDS SUMMARY | 2023-10-12 10:52 | External Medical Summary | Summary of Care ---
Author Name Unknown Organization [facility] Address [address] [place] [address] Phone [phone] Care Team Providers Care Mail Technician Name Role Phone Aviva Rossi DO Primary Care Provider Reason for Visit * Reason Onset Date Comments [facility]: Maintenance 09/09/2023 Encounter Details Date Type Department Care Team (Late st Contact Info) Description 09/09/2023 11:30 AM EDT Scheduled Telephone [facility], [facility] [address] [place] [address] Coordinator, [facility] [address] [place] [address] Allergies Active Allergy Reactions Criticality Noted Date Comments Codeine 11/20/2012 Nausea and vomiting Lisinopril 06/12/2015 ?cough Penicillin G 11/20/2012 Hives Hydrocodone-Acetaminophen 11/20/2012 Nausea and vomiting documented as of this encounter (statuses as of 09/09/2023) Medications Medication Sig Dispensed Refills Start Date [...] taking 25 units., Reported on 08/25/2023 Pen [place] 3/16" 31G X 5 MM Use daily to inject insulin 4 times daily 400 Each 1 11/27/2022 Active Insulin Glargine Solostar 100 UNIT/ML Subcutaneous Solution Pen-injectorIndicat ions:Diabetes mellitus with peripheral vascular disease (HCC),Type 2 diabetes mellitus with hemoglobin A1c goal of less than 8.0% ([facility]) Titrate down per titration schedule as [...] discharge follow-up,Atrial fibrillation with RVR ([facility]) Take 1 Tablet by mouth in the [...] as of this encounter (statuses as of 09/09/2023) Active Problems Problem Noted Date Diagnosed Date [...] as of this encounter (statuses as of 09/09/2023) Resolved Problems Problem Noted Date Diagnosed Date [...] Sanders-Lawrence @[facility] [phone] Morbid obesity 12/26/2016 Overview: Per Obesity protocol #1 PMB (postmenopausal bleeding) 11/12/2013 Chronic cough 08/22/2023 Productive cough 08/22/2023 Overview: chronic Left knee injury 06/09/2023 Elevated WBC count 4 documented as of this encounter (statuses as of 09/09/2023) Immunizations Name Administration Dates Next Due COVID-19 mRNA, LNP-s, No Pre serve, 2-Dose Series (Dynamic Organic Light) 09/21/2020,05/22/2020 COVID-19, MRNA-LNP, 23-24, P F, 30 [...] Miscellaneous Notes * Telephone Encounter - Radha Armando RN - 09/09/2023 10:05 AM EDT [facility] Telephonic Nurse Follow-Up Call [facility] Subprogram: No data was found Follow Up Call Type: hospital follow up call Acute issue requiring follow-up call: Other: MILADIS/make aware of HV 09/10 Objective: 08/25/2023 10:56 AM 06/17/2023 9:11 AM 03/11/2023 11:01 AM 01/07/2023 11:33 AM 12/04/2022 9:14 AM VITALS ACROSS ENCOUNTERS BP 128/80 138/80 136/78 136/80 Pulse 73 71 83 88 Weight 128.1 kg 128 kg 127.7 kg 131.1 kg 130.2 kg BMI 51.62 51.58 51.47 52.85 BMI 51.63 kg/m2 51.6 kg/m2 51.49 kg/m2 52.86 kg/m2 52.49 kg/m2 Remote Patient Monitoring: NONE Oxygen Needs: NO supplemental oxygen needs identified DME Needs: NO DME needs identified Medications: New medication(s) added: none Dose adjustment(s) made: hold metoprolol, potassium Can do daily wts Blood sugar 129 Subjective: Condition Status: Improvement in symptoms but not at baseline Current Concerns: Pt recently hospitalized with [facility]. Prior to that was in with HF, new onset afib, UTI. During stay, metoprolol and potassium were both placed on hold. Pt reports that she is feeling better, but not back to baseline. Urine output wnl. Denies fever/chills, dysuri. Hx of HF-pt not able to weigh herself due to inability to see the numbers on the scale.Discussed RPM. Agreeable. Will place order. Reinforced red flags to call [facility] with . Will send [facility] intake number via myG per pt request. Confirmed upcoming [facility] new enrollment visit 09/11/23. Disposition: Issue resolved. All appropriate follow up scheduled. Future Visits Scheduled: Future Appointments-next 60 days Date/Time Provider Specialty Dept Phone 09/09/2023 11:30 AM Coordinator, Edwar Velazquez [facility] [phone] 09/11/2023 12:30 PM Nubia Zamora, RN [facility] [phone] 09/16/2023 9:40 AM (Arrive by 9:25 AM) Aviva Rossi DO Family Medicine [phone] 09/16/2023 11:15 AM (Arrive by 11:00 AM) [email or web address] Radiology [phone] 09/17/2023 9:20 AM (Arrive by 9:05 AM) Yvonne, Pharmacist 65 [facility] Medicine [phone] 10/01/2023 10:30 AM (Arrive by 10:15 AM) Shaw Hickey DO Cardiology [phone] 11/06/2023 9:00 AM Ken Gonzalez PA-C [facility] [phone] 11/11/2023 1:00 PM College, Nurse Annual Wellness Visit 65 [facility] Ancillary [phone] Radha Armando RN documented in this encounter Plan of Treatment Upcoming Encounters Date Type Department Care Team (Late st Contact Info) Description 09/11/2023 12:30 PM EDT Home Visit [facility] [place], [facility] 132 [facility] [place] [address] Nubia Zamora, RN [address] [place] [address] 09/16/2023 9:40 AM EDT Office Visit Family Practice [address] [place] [address] 293 [place] [address] Aviva Rossi, DO 293 [place] [address] 09/16/2023 11:15 AM EDT [facility] [address] [place] [address] 09/17/2023 9:20 AM EDT Pharmacy Family Practice [address] [place] [address] [address] [place] [address] College, Pharmacist [address] [place] [address], [place] [address] 10/01/2023 10:30 AM EDT Office Visit Cardiology, [facility] [address] [place] [address] Shaw Hickey, DO [address] [place] [address] 10/24/2023 10:55 AM EDT Hospital Encounter OR [facility], Operating Room [facility] [address] [place] [phone] Jc Palafox, DO [address] [place] [address] 10/24/2023 10:55 AM EDT - 10/24/2023 11:20 AM EDT Surgery OR [facility], Operating Room [facility] [address] [place] [address] Jc Palafox, DO [address] [place] [phone] INJECTION SPINE LUMBAR OR SACRAL 11/06/2023 9:00 AM EDT Home Visit [facility], [facility] [address] [place] [address] Ken Gonzalez PA-C [address] [place] [address] 11/11/2023 1:00 PM EDT Nurse Only Ancillary 65 [facility] 293 [facility], [place] [address] College, Nurse Annual Wellness Visit 65 [facility] [address] [facility], [place] [address] Scheduled Procedures Name Priority Associated Diagnoses Date/Ti [...] and were consensually agreed upon. Care Teams Mail Technician Relationship Specialty Start Date End Date Aviva Rossi DO [address] [place] [address] PCP - General Family Medicine 09/09/23 documented as of this encounter
--- OUTSIDE RECORDS SUMMARY | 2023-10-12 10:52 | External Medical Summary ---
Author Name Unknown Address Unknown Organization K01:[facility] - [address] [place] [address] Laboratory Report Ordering Provider Test Date Status BREANA HSU 09/16/2023 11:30:40 Final Observation Date Value Abnormality Reference (Units ) Status BUN 09/16/2023 11:30:40 31 Above high normal 6-20 (mg/dL) Final Creatinine 09/16/2023 11:30:40 1.2 Above high normal 0.5-1.0 (mg/dL) Final Glomerular filtration rate/1.73 sq M.predicted [Volume Rate/Area] in Serum, Plasma or Blood by Creatinine-based formula (CKD-EPI) 09/16/2023 11:30:40 49 Below low normal >=60 (mL/min) Final eGFR is calculated based on the CKD-EPI 2020 equation Sodium 09/16/2023 11:30:40 135 135-146 (m mol/L) Final Potassium 09/16/2023 11:30:40 5.0 3.5-5.1 (m mol/L) Final Cl 09/16/2023 11:30:40 99 98-107 (mm ol/L) Final CO2 09/16/2023 11:30:40 24 22-32 (mmo l/L) Final Anion gap 09/16/2023 11:30:40 12 7-15 (mmol /L) Final Glucose 09/16/2023 11:30:40 109 70-120 (mg /dL) Final Calcium 09/16/2023 11:30:40 9.1 8.4-10.2 ( mg/dL) Final Performing Location [facility] - [address] [place] [address]
--- OUTSIDE RECORDS SUMMARY | 2023-10-12 10:52 | External Medical Summary | Summary of Care ---
Author Name Unknown Organization [facility] Address [address] [place] [address] Phone [phone] Care Team Providers Care Rubber Block Layer Name Role Phone Aviva Rossi DO Primary Care Provider Reason for Visit * Reason Comments [facility]: Enrollment Encounter Details Date Type Department Care Team (Late st Contact Info) Description 09/11/2023 12:30 PM EDT Home Visit [facility], [facility] [address] [place] [address] Nubia Zamora, RN [address] [place] [address] Type 2 diabetes mellitus with hemoglobin A1c goal of less than 8.0% ([facility])* Allergies Active Allergy Reactions Criticality [...] taking 25 units., Reported on 08/25/[address]" 31G X 5 MM Use daily to inject insulin 4 times daily 400 Each 1 11/27/2022 Active Insulin Glargine Solostar 100 UNIT/ML Subcutaneous Solution Pen-injectorIndicat ions:Diabetes mellitus with peripheral vascular disease ([facility]),Type 2 diabetes mellitus with hemoglobin A1c goal of less than 8.0% ([facility]) Titrate down per titration schedule [...] discharge follow-up,Atrial fibrillation with RVR ([facility]) Take 1 Tablet by mouth [...] lantus/novolog-refer MTM----, Psychiatrist. Sees Dr Sanders-Lawrence @[facility] [phone] Morbid obesity 12/26/2016 Overview: Per Obesity protocol #1 PMB (postmenopausal bleeding) 11/12/2013 Chronic cough 08/22/2023 Productive cough 08/22/2023 Overview: chronic Left knee injury 06/09/2023 Elevated WBC count 4 documented as of this encounter (statuses as of 09/11/2023) Immunizations Name Administration Dates Next Due COVID-19 mRNA, LNP-s, No Pre serve, 2-Dose Series ([employer]) 09/21/2020,05/22/2020 COVID-19, MRNA-LNP, 23-24, P F, 30 MCG/0.3 mL, 12 YRS AND ABOVE, IM ([email or web address]) 08/25/2023,01/07/2023 Covid-19, Mrna, Lnp-s, Pf, B ivalent, [...] Sign Reading Time Taken Comments Blood Pressure 114/64 09/11/2023 12:44 PM EDT Pulse 84 09/11/2023 12:44 PM EDT Temperature 36.8 C (98.3 F) 09/11/2023 12:44 PM E DT Respiratory Rate 18 09/11/2023 12:44 PM EDT Oxygen Saturation 98% 09/11/2023 12:44 PM EDT Inhaled Oxygen Concentration - - Weight 125.2 kg (276 lb) 09/11/2023 12:44 PM EDT Height - - Body Mass Index 50.48 08/25/2023 10:56 AM EDT documented in this encounter Progress Notes * Nubia Zamora RN - 09/11/2023 9:15 AM EDT [facility] [employer] Visit Date: 09/11/2023 Time: 9:15 AM Name: Lisa Gamboa : 1955 Current Concerns: Pt seen for enrollment to [facility] and [facility]1 Admitted to [facility] 08/12 - 08/15/23 for new onset Afib with RVR, UTI, CHF Admitted again 09/04 - 09/08/23 for Acute renal failure, generalized weakness, deconditioning, paroxysmal Afib, Sinus Bradycardia Metoprolol and Potassium are on Hold Pt was recommended to go to rehab following d/c but pt refused Discharged home with Home Health services but pt has not heard from anyone Call placed to [facility] but could not accept [facility] a [facility] RPM was ordered on 09/08 and has been delivered Scale has been set up today [facility] called to confirm transmission Has Dexcom G7 for bsg monitoring Uses Novolog sliding scale for bsg over 120 She reports the Lantus and Xultophy is given in 24 hr intervals but she doesn't really have a set time of am or pm Physical Exam: BP 114/64 | Pulse 84 | Temp 36.8 C (98.3 F) | Resp 18 | SpO2 98% Pain 3 Physical Exam Constitutional: General: She is not in acute distress. Appearance: She is obese. Cardiovascular: Rate and Rhythm: Normal rate and regular rhythm. Pulses: Normal pulses. Heart sounds: Normal heart sounds. Pulmonary: Effort: Pulmonary effort is normal. Breath sounds: Normal breath sounds. Abdominal: General: Bowel sounds are normal. Palpations: Abdomen is soft. Skin: General: Skin is warm and dry. Neurological: Mental Status: She is alert and oriented to person, place, and time. Problems/Symptoms: Review of Systems Constitutional: Positive for fatigue. HENT: Negative. Eyes: Positive for visual disturbance (poor vision). Respiratory: Positive for shortness of breath (KO - at baseline). Cardiovascular: Negative. Gastrointestinal: Negative. Genitourinary: Negative. Musculoskeletal: Positive for arthralgias, back pain and gait problem. Skin: Negative. Neurological: Positive for weakness. Psychiatric/Behavioral: Negative. Medication Reconciliation: (See medication list) Does patient take medications as ordered: Yes Patient Well Being: PHQ2/9: No questionnaires available. Pt lives alone in two story home but stays on first floor No pets Has Wi-fi Sister helps her and usually provides transportation Did sign up for [facility] transportation Home is hoarded with boxes, bags, different household items, garbage can with large amt of small flies flying around it - narrow pathways to walk through She reports sister usually comes twice a week Pt cooks her own meals Has hx of falling [facility]-10 Completed this Visit: Yes. [facility]-10: Reason Completed: Enrollment Status post fall Status post ED [facility] Fall Risk Assessment Tool Age 65+: Yes (09/11/231199) Diagnosis (3 or more co-existing): Yes (09/11/231199) Prior history of falls within 3 months: Yes (09/11/231199) Incontinence: No (09/11/231199) Visual impairment: Yes (09/11/231199) Impaired functional mobility: Yes (09/11/231199) Environmental hazards: Yes (09/11/231199) Poly Pharmacy (4 or more prescriptions - any type): Yes (09/11/231199) Pain affecting level of function: Yes (09/11/231199) Cognitive impairment: No (09/11/231199) Score - a score of 4 or more is considered at risk for fallin (09/11/231199) [facility] Interventions: Fall education provided, reviewed/provided Fall brochure Advanced Care Planning: No documentation, acp in process. Patient's Goals of Care: Get stronger Less pain Walk better Reinforcement/Education: Reviewed HF symptom monitoring: -Weigh self daily in am, post-void and record -Do not add salt to food, avoid foods high in sodium -Limit fluids to 2 liters per day -Report the following: ->2 lb weight gain in one day or 5 lbs in a week to PCP -increased edema in feet, abdomen or hands -increased SOB and cough, especially if at night -increased fatigue or vertigo Educated on home safety: Create a fall proof home Clear floors of clutter, loose wires, throw rugs, and cords. Make sure halls, stairways, and entrances are well lit. Install a nightlight in your bedroom, hallway and bathroom. Install grab bars or handrails in the bathroom and on stairs. Use a non-skid tub/shower mat. Avoid climbing on a chair; instead use a step stool with a high handrail. Keep sidewalks and steps in good repair Keep steps and sidewalks free of snow and ice. Using aids to support and prevent falls If you have poor balance or have fallen in the past, consider additional support such as a cane or walker. Use a cane with good support and that is the proper length for you. Use a walker if a cane doesnt provide enough support. Avoid medications that increase the risk of falling by causing dizziness, change in sensation or slowed reflexes. Certain medicines may cause falls - blood pressure pills, heart medicines, water pills, or sleepingpills. Be sure to understand each medicine that you are taking and any side effects that may occur. Improve your balance and flexibility with muscle strengthening exercises. Ask your health care provider for some exercises that will be right for you. Reinforced safety education and fall prevention. and Reinforced medication regimen. Timing., Dosing., and Purspose. Treatment/Plan: Continue meds as ordered/reviewed [facility] for daily wt monitoring Low Na, CCD diet Use of assistive device at all times Home is cluttered - need to keep pathways clear to prevent falls Keep all appts as scheduled [facility] for home PT Dexcom G7 for glucose monitoring F/U with PCP next week with labs Home Interventions Provided: Home Intervention: Other; eval Reinforced current Plan of Care, including self-management and medication regimen Updated Exacerbation Plan Patient's 'Red Flags': Increased weakness Wt gain of 3 lbs in 24 hrs or 5 lbs in one week Blurred vision, confusion Patient Needs to Remember: Call [facility] at with any new or worsening health concerns or problems, red flag symptoms. Referrals Needed: Other [facility] Follow Up: Is there cellular connectivity/connectivity in the home? Yes Does the patient have internet in the home? Yes Patient encouraged to call the intake phone number for all urgent but not emergent issues. Is the patient new to [facility] within the last 30 days? Yes, Is this a Transitions of Care visit? Yes, this is the 1st visit. Provider is in agreement with Plan of Care: Yes Scheduled to follow up with patient in 2 weeks with CHW, 3 weeks after with RNCM, 2 weeks after that with provider. Nubia Zamora RN 09/11/2023 9:15 AM documented in this encounter Plan of Treatment Upcoming Encounters Date Type Department Care Team (Late st Contact Info) Description 09/16/2023 9:20 AM EDT Pharmacy Family Practice [address] [place] [address] [place] [address] College, Pharmacist [address] [place] [address] 09/16/2023 9:40 AM EDT Office Visit Family Practice [address] [facility] [address] [place] [address] Aviva Rossi DO [address] [facility] [place] [address] 09/16/2023 11:15 AM EDT Imaging Radiology [address] [facility] [place] [address] 09/18/2023 4:00 PM EDT Home [facility] [address] [place] [address] Radha Pollard, [employer] [facility] [employer] [address] [place] [address] 09/22/2023 1:00 PM EDT Home Visit [facility] [address] [place] [address] Poonam Metcalf, [employer] [facility] [employer] [address] [place] [address] 10/01/2023 10:30 AM EDT Office Visit Cardiology, [facility] [address] [place] [address] Shaw Hickey, DO 132 [facility] [place] [address] 10/21/2023 2:30 PM EDT Home Visit [facility] [address] [place] [address] Nubia Zamora, RN [address] [place] [address] 10/24/2023 10:55 AM EDT Hospital Encounter [facility], Operating Room [facility] [address] [place] [id number] Jc Palafox, DO [address] [place] [address] 10/24/2023 10:55 AM EDT - 10/24/2023 11:20 AM EDT Surgery OR [facility], Operating Room [facility] [address] [place] [address] Jc Palafox, DO [address] [place] [address] INJECTION SPINE LUMBAR OR SACRAL 11/06/2023 9:00 AM EDT Home Visit [facility], [facility] [address] [place] [address] Ken Gonzalez PA-C [address] [place] [address] 11/11/2023 1:00 PM EDT Nurse Only Ancillary [address] [facility] [address] [place] [address] College, Nurse Annual Wellness Visit [address] [place] [address] Scheduled Procedures Name Priority Associated Diagnoses Date/Ti [...] goal of less than 8.0% ([facility])- Primary Lumbar radiculopathy Thoracic or [...] and were consensually agreed upon. Care Teams Rubber Block Layer Relationship Specialty Start Date End Date Aviva Rossi DO [address] [place] [address] PCP - General Family Medicine 09/09/23 documented as of this encounter
--- OUTSIDE RECORDS SUMMARY | 2023-10-12 10:52 | External Medical Summary | Summary of Care ---
Author Name Unknown Organization [facility] Address [address] [place] [address] Phone [phone] Care Team Providers Care Automotive Starter Repairer Name Role Phone Aviva Rossi DO Primary Care Provider Reason for Visit * Reason Onset Date Comments Hospital Follow-Up Hospital Follow-Up 09/16/2023 Encounter Details Date Type Department Care Team (Latest Contact Info) Description 09/16/2023 9:40 AM EDT Office Visit Family Practice [facility] [address] [place] [address] Aviva Rossi DO [address] [place] [address] Hospital discharge follow-up*; Generalized weakness; Gastroesophageal reflux disease, unspecified whether esophagitis present; Hypertension goal BP (blood pressure) < 140/90; Lumbar radiculopathy Allergies Active Allergy Reactions Criticality Noted Date [...] (No instructions reported), Reported on 09/16/2023 Pen [place]after 3" 31G X 5 MM Use daily [...] Tablet by mouth in the morning. Active Famotidine 20 MG Oral Tablet (Pepcid)Indications [...] for Pain, Severe. 30 Tablet 4 Active Famotidine 20 MG Oral Tablet (Pepcid)Indications [...] Tablet 1 4 09/16/19 24 Discontinu ed(Refill) Hospital, Clinic, or Other [...] start lantus/novolog-refer MTM----, Psychiatrist. Sees Dr Sanders-Lawrence @[facility] [phone] Morbid obesity 12/26/2016 Overview: Per Obesity protocol #1 PMB (postmenopausal bleeding) 11/12/2013 Chronic cough 08/22/2023 Productive cough 08/22/2023 Overview: chronic Left knee injury 06/09/2023 Elevated WBC count 4 documented as of this encounter (statuses as of 09/17/2023) Immunizations Name Administration Dates Next Due COVID-19 mRNA, LNP-s, No Pre serve, 2-Dose Series (Usarium) 09/21/2020,05/22/2020 COVID-19, MRNA-LNP, 23-24, P F, 30 [...] No 08/20/2023 Does the household have a [facility] source of income? (Household - for ages [...] Sign Reading Time Taken Comments Blood Pressure 118/68 09/16/2023 10:21 AM EDT Pulse 81 09/16/2023 10:21 AM EDT Temperature 36.7 C (98 F) 09/16/2023 10: 21 AM EDT Respiratory Rate 12 09/16/2023 10:2 1 AM EDT Oxygen Saturation 96% 09/16/2023 10: 21 AM EDT Inhaled Oxygen Concentration - - Weight 125.1 kg (275 lb 12.8 oz) 2023 10:21 AM EDT Height 157.5 cm (5' 2") 09/16/2023 10:2 1 AM EDT Body Mass Index 50.44 09/16/2023 10:21 AM EDT documented in this encounter Progress Notes * Aviva Rossi, DO - 09/16/2023 10:06 AM EDT SUBJECTIVE: Chief Complaint Patient presents with Hospital Follow-Up HPI: Lisa Gamboa is a 68 year old female who presents today for hospital follow-up. Of note, ptmissed over half of her appointment today. Pt was readmitted on 09/04 with weakness. She had a recent UTI and was given cefepime to finish out the course of antibiotics. She is noted to have paroxysmal A.fib with possible tachybrady syndrome. Her metoprolol was stopped. She remained on Eliquis. She did have a ZIO placed. Other issues noted to be stable. It was recommended that she have rehab placement but she refused. Pt has been home. No PT has started yet. She is not sure if someone from home health has been out. It looks like [facility] was to [facility] pt. [facility] is coming out. Pt states that she refused rehab soshe could work on her taxes. Taxes still are not done. Pt states it is a bit of a struggle to get off of the couch. She notes she has to hold onto things to be able to get up. This is new for her. She notes that her sugars have been ok. She notes that her BG is 113. Pt would like to increase her famotidine to twice daily. She notes that it feels like things stick at times. She notes that famotidine helped with that when she started it. Pt states she has been taking left over percocet she had from a surgery in 2012. She thinks she is staying under 4 grams of tylenol. She notes just sitting here now she has 4/10 pain. She states thatthe pain is in her coccyx area. It will radiate to her buttocks. It will shoot down both legs. She states that she will sit the 1/2 of percocet near her tylenol and this will help things. PHM: Patient Active Problem List Diagnosis ADVANCE DIRECTIVE INFORMATION IBS (irritable bowel syndrome) Stress incontinence Type 2 diabetes mellitus with hemoglobin A1c goal of less than 8.0% ([facility]) Myasthenia gravis ([facility]) Central serous retinopathy Major depression in partial remission ([facility]) Ex-smoker Microalbuminuric diabetic nephropathy ([facility]) Other specified peripheral vascular diseases ([facility]) Diabetes mellitus with peripheral vascular disease ([facility]) Dyslipidemia 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 Vision Formula Eye Health Oral Capsule Take 1 Capsule by mouth daily. Arrowe[employer] Solutions G6 Sensor Use as directed. Use as directed every 10 days to monitor blood sugars Systane Complete PF 0.6 % Ophthalmic Solution [...] DAILY DOSE 35 UNITS) 30 mL 3 Xultophy 100-3.6 UNIT-MG/ML Subcutaneous Solution Pen-injector (Insulin Degludec-Liraglutide) Inject up to 50 units daily subcutaneously as directed per titration schedule (Patient taking differently: Inject 23 Units under the skin daily.) 45 mL 3 Pen Shafter 3/16" 31G X 5 MM Use daily to inject insulin 4 times daily 400 Each 1 FLUoxetine HCl 20 MG Oral Capsule [...] mouth in the morning. 90 Tablet 3 Losartan Potassium 25 MG Oral Tablet (Cozaar) Take 1 Tablet by mouth in the morning. 30 Tablet 1 Apixaban 5 MG Oral Tablet (Eliquis) Take [...] for Pain,Mild. (Up to 3000 mg daily) Current Facility-Administered Medications Medication Dose Route Frequency Provider Last Rate Last Admin Albuterol Sulfate (Proventil) (2.5 MG/3ML) 0.083% inhalation solution 2.5 mg 2.5 mg Nebulizer Once PRN Aviva Rossi DO 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 Chronic cough DM (diabetes mellitus) ([facility]) Elevated WBC count 80s Endometrial cancer ([facility]) Ex-smoker 09/03/2013 IBS (irritable bowel syndrome) Left knee injury meniscus tear, medial condyle fracutre Major depression in partial remission ([facility]) Microalbuminuric diabetic nephropathy ([facility]) 04/28/2014 Morbid obesity ([facility]) Myasthenia gravis ([facility]) Ocular migraine Productive cough chronic PSVT (paroxysmal supraventricular tachycardia) ([facility]) 80s due to albuterol, theophylline Pyelonephritis 2x [facility] Sleep apnea Sleep apnea, obstructive Stress incontinence Past Surgical History: Procedure Laterality Date , INDUCED BY D&C COLONOSCOPY, DIAGNOSTIC (RECTUM) N/A 09/18/2022 hemorrhoids/multiple polyps/biopsies show adenomatous and tubulovillous adenoma/recall 3 months/colonoscopy/[place] COLONOSCOPY, DIAGNOSTIC (RECTUM) N/A 02/05/2023 hemorrhoids/recall 3 years/Colonoscopy/[place] DENTAL SURGERY PROCEDURE NEC EGD, FLEXIBLE, DIAGNOSTIC 09/27/2015 normal/[facility] LAPAROSCOPY TOTAL HYSTX, UTERUS 250GM OR LESS TUBE/OVARY 02/02/2013 LAPAROSCOPIC HYSTERECTOMY REMOVAL TUBES AND OVARIES FOR UTERUS 250GM OR LESS performed by Elizabeth Phillips DO at OR [facility] Review of patient's allergies indicates: Allergen Reactions [...] pain, constipation, diarrhea, nausea and vomiting. Musculoskeletal: Positive for arthralgias and back pain. Negative for gait problem and joint swelling. Skin: Negative for color change, pallor and rash. OBJECTIVE: BP 118/68 (BP Site: Left Arm, BP Position: Sitting, BP Cuff Size: Large) | Pulse 81 | Temp 36.7 C(98 F) (Tympanic) | Resp 12 | Ht 1.575 m (5' 2") | Wt 125.1 kg (275 lb 12.8 oz) | SpO2 96% | BMI 50.44 kg/m | BSA 2.34 m PHYSICAL EXAM: Physical Exam Constitutional: General: [...] (Z09) Hospital discharge follow-up (primary encounter diagnosis) (R53.1) Generalized weakness Plan: DISCH MED RECON CUR MED LIS, BASIC METABOLIC PANEL, BASIC METABOLIC PANEL Pt will complete lab studies as renal function slightly off on admission. Will await results. Strongly encouraged PT. Will confirm that has been out to see her. She is not sure as [facility] has also been working with her. Strongly encouraged PT. (K21.9) Gastroesophageal reflux disease, unspecified whether esophagitis present Plan: Famotidine 20 MG Oral Tablet (Pepcid) Pt notes increased reflux. CrCl over 60 so able to increase famotidine to twice daily. Rx sent. (I10) Hypertension goal BP (blood pressure) < 140/90 Plan: Losartan Potassium 25 MG Oral Tablet (Cozaar) Pt will remain on losartan. Rx sent. (M54.16) Lumbar radiculopathy Plan: traMADol HCl 50 MG Oral Tablet (Ultram) Discussed that I will not prescribe percocet given weakness, history of falls, etc. Reviewed I would prescribe low dose tramadol for the short term. Encouraged to work with therapy. She can try this with tylenol. Can use up to 1000mg of tylenol 3 times a day. Follow-up: 6-8 weeks Total time today including reviewing chart before the visit, pertinent labs, imaging reports, face to face time, and documentation time was 42 minutes. Aviva Rossi DO documented in this encounter Nursing Notes * Michelle Tim LPN - 09/16/2023 10:18 AM EDT Patient here for hospital discharge follow up visit. Reports pain in coccyx that radiates to backs of legs. States she has had this pain since she fell during prior hospital stay. Being followed by Home health. Has seen the nurse, waiting for therapy. documented in this encounter Plan of Treatment Upcoming Encounters Date Type Department Care Team (Late st Contact Info) Description 09/18/2023 1:00 PM EDT Home Visit [facility] [address] [place] [address] Radha Pollard, Community Health Rework Operator [address] [place] [address] 09/22/2023 1:00 PM EDT Home Visit [facility] [address] [place] [address] Poonam Metcalf, Community Health Rework Operator [address] [place] [address] 10/01/2023 10:30 AM EDT Office Visit Cardiology, [facility] [address] [place] [address] Shaw Hickey DO [address] [place] [address] 10/01/2023 1:15 PM EDT Imaging Radiology [address] [place] [address] 10/21/2023 2:30 PM EDT [facility], [facility] [address] [place] [address] Nubia Zamora, RN [address] [place] [address] 10/24/2023 10:55 AM EDT Hospital Encounter OR [facility], Operating Room [facility] [address] [place] [address] Jc Palafox, [address] [place] [address] 10/24/2023 10:55 AM EDT - 10/24/2023 11:20 AM EDT Surgery OR [facility], Operating Room [facility] [address] [place] [address] Jc Palafox, DO [address] [place] [address] INJECTION SPINE LUMBAR OR [facility] 11/06/2023 9:00 AM EDT Home Visit [facility], [facility] [address] [place] [address] Ken Gonzalez PA-C [address] [place] [address] 11/19/2023 8:40 AM EDT Office Visit Family Practice [address], [place] [address] [place] [address] Aviva Rossi, DO 293 [facility], [place] [address] Scheduled Procedures Name Priority Associated Diagnoses Date/Ti [...] Procedure Name Priority Date/Time Associated Diagnosis Comments BASIC METABOLIC PANEL Routine 09/16/2023 11:30 AM EDT Hospital discharge follow-up documented in this encounter Results * (ABNORMAL) BASIC METABOLIC PANEL (09/16/2023 11:30 AM EDT) BUN 31(H) 6 - 20 mg/dL 09/16/2023 11:14 PM EDT [facility] Creatinine 1.2(H) 0.5 - 1.0 mg/dL 09/16/2023 11:14 PM EDT [facility] Estimated Glomerular Filtration Rate 49(L) >=60 mL/min 09/16/2023 11:14 PM EDT [facility] Comment:eGFR is calculated b ased on the CKD-EPI 2020 equation Sodium 135 135 - 146 mmol/L 09/16/2023 11:14 PM EDT [facility] Potassium 5.0 3.5 - 5.1 mmol/L 09/16/2023 11:14 PM EDT [facility] Chloride 99 98 - 107 mmol/L 09/16/2023 11:14 PM EDT [facility] CO2 24 22 - 32 mmol/L 09/16/2023 11:14 PM EDT [facility] Anion Gap 12 7 - 15 mmol/L 09/16/2023 11:14 PM EDT [facility] Glucose 109 70 - 120 mg/dL 09/16/2023 11:14 PM EDT [facility] Calcium 9.1 8.4 - 10.2 mg/dL 09/16/2023 11:14 PM EDT [facility] Blood Venous blood specimen / Unknown Venipuncture / Unknown 09/16/2023 11:30 AM EDT 09/16/2023 11:30 AM EDT Aviva Rossi DO LAB BLOOD ORDERABLES LABORATORY [facility] [address] [place] [address] documented in this encounter Visit Diagnoses Diagnosis Hospital discharge follow-up- Primary Other follow-up examination Generalized weakness Other malaise and fatigue Gastroesophageal reflux disease, unspecified whether esophagitis present Hypertension goal BP (blood pressure) < 140/90 [...] and were consensually agreed upon. Care Teams Automotive Starter Repairer Relationship Specialty Start Date End Date Aviva Rossi DO [address] [place] [address] PCP - General Family Medicine 09/09/23 documented as of this encounter
--- OUTSIDE RECORDS SUMMARY | 2023-10-12 10:52 | External Medical Summary | Summary of Care ---
Author Name Unknown Organization [facility] Address [address] [facility] [place] [address] Phone [phone] Care Team Providers Care Hardener Helper Name Role Phone Aviva Rossi DO Primary Care Provider [phone] Reason for Visit * Reason Onset Date Comments [facility]: Maintenance 09/08/2023 Encounter Details Date Type Department Care Team (Late st Contact Info) Description 09/08/2023 Telephone [facility], [place] [address] [place] [address] Region, Nurse [facility] [address] [facility] [place] [address] [facility]: Maintenance Allergies Active Allergy [...] taking 25 units., Reported on 08/25/2023 Pen [place] 3/16" 31G X 5 MM Use daily to inject insulin 4 times daily 400 Each 1 11/27/2022 Active Insulin Glargine Solostar 100 UNIT/ML Subcutaneous Solution Pen-injectorIndicat ions:Diabetes mellitus with peripheral vascular disease (HCC),Type 2 diabetes mellitus with hemoglobin A1c goal of less than 8.0% ([facility]) Titrate down per titration schedule [...] (Eliquis)Indication s:Hospital discharge follow-up,Atrial fibrillation with RVR ([facility]) Take 1 Tablet by mouth [...] start lantus/novolog-refer MTM----, Psychiatrist. Sees Dr Sanders-Lawrence @[facility] [phone] Morbid obesity 12/26/2016 Overview: Per Obesity protocol #1 PMB (postmenopausal bleeding) 11/12/2013 Chronic cough 08/22/2023 Productive cough 08/22/2023 Overview: chronic Left knee injury 06/09/2023 Elevated WBC count 4 documented as of this encounter (statuses as of 09/08/2023) Immunizations Name Administration Dates Next Due COVID-19 mRNA, LNP-s, No Pre serve, 2-Dose Series (Venuelabs) 09/21/2020,05/22/2020 COVID-19, MRNA-LNP, 23-24, P F, 30 [...] encounter Miscellaneous Notes * Telephone Encounter - Claudia Tripathi LPN - 09/08/2023 11:44 AM EDT Received TT that patient is admitted to [facility] Added to hospital list FYI Care Team Claudia Tripathi LPN [facility] 09/08/2023,11:44 AM documented in this encounter Plan of Treatment Upcoming Encounters Date Type Department Care Team (Latest Contact Info) Description 09/11/2023 12:30 PM EDT Home Visit [facility], [facility] [address] [facility] [address] Nubia Zamora, RN [address] [place] [address] 09/16/2023 9:40 AM EDT Office Visit Family Practice [address], [place] 293 [facility] [place] [address] Aviva Rossi, DO 293 [place] [address] 09/16/2023 11:15 AM EDT Imaging Radiology [facility] 1st [facility] [address] [place] [address] 10/01/2023 10:30 AM EDT Office Visit Cardiology, [facility] [address] [place] [address] Shaw Hickey, DO [address] [place] [address] 10/24/2023 10:55 AM EDT Hospital Encounter [facility], Operating Room [facility] [address] [place] [address] Jc Palafox, DO [address] [place] [phone] 10/24/2023 10:55 AM EDT - 10/24/2023 11:20 AM EDT Surgery OR [facility], Operating Room [facility] [address] [place] [address] Jc Palafox, DO [address] [place] [address] INJECTION SPINE LUMBAR OR [facility] 11/06/2023 9:00 AM EDT Home Visit [facility], [facility] [address] [place] [address] Ken Gonzalez PA-C [address] [place] [address] 11/11/2023 1:00 PM EDT Nurse Only Ancillary [address], [place] [address] [facility], [place] [address] College, Nurse Annual Wellness Visit [address] [facility] [address] [facility], [place] [address] Scheduled Procedures Name Priority Associated Diagnoses Date/Ti [...] and were consensually agreed upon. Care Teams Hardener Helper Relationship Specialty Start Date End Date Aviva Rossi DO PCP - General Family Medicine 05/09/22 documented as of this encounter
--- OUTSIDE RECORDS SUMMARY | 2023-10-12 10:52 | External Medical Summary | Summary of Care ---
Author Name Unknown Organization [facility] Address [address] [place] [address] Phone [phone] Care Team Providers Care Crime Laboratory Analyst Name Role Phone Aviva Rossi DO Primary Care Provider Reason for Visit * Reason Onset Date Comments Appointment 09/11/2023 Encounter Details Date Type Department Care Team (Late st Contact Info) Description 09/11/2023 Telephone [facility] [place], [place] [address] [place] [address] Trini Uribe, CATHERINE [address] [place] [address] Appointment Allergies Active Allergy Reactions Criticality Noted [...] taking 25 units., Reported on 08/25/2023 Pen [place] 316" 31G X 5 MM Use daily to inject insulin 4 times daily 400 Each 1 11/27/2022 Active Insulin Glargine Solostar 100 UNIT/ML Subcutaneous Solution Pen-injectorIndicat ions:Diabetes mellitus with peripheral vascular disease (HCC),Type 2 diabetes mellitus with hemoglobin A1c goal of less than 8.0% ([facility]) Titrate down per titration schedule [...] s:Hospital discharge follow-up,Atrial fibrillation with RVR ([facility]) Take 1 Tablet by mouth [...] start lantus/novolog-refer MTM----, Psychiatrist. Sees Dr Sanders-Lawrence @[facility] [phone] Morbid obesity 12/26/2016 Overview: Per Obesity protocol #1 PMB (postmenopausal bleeding) 11/12/2013 Chronic cough 08/22/2023 Productive cough 08/22/2023 Overview: chronic Left knee injury 06/09/2023 Elevated WBC count 4 documented as of this encounter (statuses as of 09/11/2023) Immunizations Name Administration Dates Next Due COVID-19 mRNA, LNP-s, No Pre serve, 2-Dose Series (Excep Apps) 09/21/2020,05/22/2020 COVID-19, MRNA-LNP, 23-24, P F, 30 MCG/0.3 mL, 12 YRS AND ABOVE, IM (Beryllium-Comirnat) 08/25/2023,01/07/2023 Covid-19, Mrna, Lnp-s, Pf, B ivalent, [...] encounter Miscellaneous Notes * Telephone Encounter - Trini Uribe OSA - 09/11/2023 2:47 PM EDT Per Request - scheduled a CHW visit with Radha Pollard on September 17 at 4 pm. Spoke with patient andconfirmed. documented in this encounter Plan of Treatment Upcoming Encounters Date Type Department Care Team (Late st Contact Info) Description 09/16/2023 9:20 AM EDT Pharmacy Family Practice 65 [facility] [phone] College, Pharmacist [address] [address] 09/16/2023 9:40 AM EDT Office Visit Family Practice 65 [facility] [address] [facility] [phone] Aviva Rossi DO 293 [facility] [address] 09/16/2023 11:15 AM EDT Imaging Radiology [facility] 1st [facility] [place] 132 [facility] [place] [address] 09/18/2023 4:00 PM EDT Home Visit [facility] [address] [facility] [place] [address] Radha Pollard, Community Health Jewelry Sales Associate [address] [place] [facility] [place] [address] 09/22/2023 1:00 PM EDT Home Visit [facility] Integration [address] [facility] [place] [address] Poonam Metcalf, Community Health Jewelry Sales Associate [address] [place] [address] 10/01/2023 10:30 AM EDT Office Visit Cardiology, [facility] [address] [place] [address] Shaw Hickey, DO [address] [place] [address] 10/21/2023 2:30 PM EDT Home Visit [facility], [facility] [address] [place] [address] Nubia Zamora, RN [address] [place] [address] 10/24/2023 10:55 AM EDT Hospital Encounter OR [facility], Operating Room [facility] [address] [place] [address] Jc Palafox, DO [address] [place] [address] 10/24/2023 10:55 AM EDT - 10/24/2023 11:20 AM EDT Surgery OR [facility], Operating Room [facility] [address] [place] [address] Jc Palafox, DO [address] [place] [phone] INJECTION SPINE LUMBAR OR SACRAL 11/06/2023 9:00 AM EDT Home Visit [facility], [facility] [address] [place] [address] Ken Gonzalez PA-C [address] [place] [address] 11/11/2023 1:00 PM EDT Nurse Only Ancillary 65 [facility] [place] [address] [place] [address] College, Nurse Annual Wellness Visit [address] [facility] [address] [place] [address] Scheduled Procedures Name Priority Associated Diagnoses Date/Ti [...] and were consensually agreed upon. Care Teams Crime Laboratory Analyst Relationship Specialty Start Date End Date Aviva Rossi DO [address] [facility] [place] [address] PCP - General Family Medicine 09/09/23 documented as of this encounter
[2023-10-12] MEDS: SODIUM CHLORIDE 0.9% 1,000 ML IV ONE (10:59)
[2023-10-12 11:12] LABS: Basophils # (auto) 0.04 K/uL (0.00-0.20); Basophils % (auto) 0.3 %; Eosinophils # (auto) 0.06 K/uL (0.00-0.50); Eosinophils % (auto) 0.4 %; Hematocrit (blood only) 33.6 % (37.0-47.0); Hemoglobin 10.9 g/dl (12.0-16.0); Immature Granulocytes # (auto) 0.05 K/uL (0.01-0.20); Immature Granulocytes % (auto) 0.4 %; Lymphocytes % (auto) 10.3 %; Mean Corpuscular Hemoglobin 29.1 pg (25.0-34.0); Mean Corpuscular Hgb Conc 32.4 g/dL (32.0-36.0); Mean Corpuscular Volume 89.6 fL (80.0-100.0); Mean Platelet Volume 10.2 fL (9.4-12.4); Monocytes # (auto) 1.06 K/uL (0.11-0.59); Monocytes % (auto) 7.8 %; Neutrophils # (auto) 10.99 K/uL (1.40-6.50); Neutrophils % (auto) 80.8 %; Platelet Count 327 K/uL (130-400); RDW Coefficient of Variation 12.4 % (11.5-14.5); RDW Standard Deviation 40.3 fL (36.4-46.3); Red Blood Count 3.75 M/uL (4.20-5.40)
[2023-10-12 11:27] LABS: Albumin Globulin Ratio 1.4 (0.9-2); Albumin Level 4.1 gm/dl (3.4-5.0); BUN Creatinine Ratio 29.2 (10-20); Calcium 9.8 mg/dl (8.6-10.3); Creatinine Clr Calc Pharmacy 38.9 ml/min; Est GFR (African American) 34.6 ml/min; Est GFR (Non-African American) 29.8 ml/min; Phosphorus 4.8 mg/dl (2.5-4.9); Potassium 5.1 mmol/L (3.5-5.1); Total Protein 7.1 gm/dl (6.0-8.3)
[2023-10-12 11:34] LABS: Troponin I High Sensitivity 5.1 pg/ml (0-14)
[2023-10-12 11:45] LABS: Prothrombin Time 11.1 Seconds (9.0-12.0)
--- NOTE | 2023-10-12 12:07 | Emergency Department Note ---
Impression & Plan JOHN (acute kidney injury), Hematoma of right iliopsoas muscle, Right groin pain, Generalized weakness ED Provider Note NAME: TORO BRADEN AGE: 68 SEX: F : 1955 ARRIVES VIA: Ambulance INFORMANT: Patient ED PROVIDER(S): Justice Castro MD CHIEF COMPLAINT: weakness, right groin pain, dysuria. 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 Patient has any fevers, chills, cough, congestion. She reports she recalls having a fall when she was in the hospital in August but otherwise denies any falls at home since then. On evaluation the patient is no distress, afebrile with stable vital signs. She appears clinically dry. She has mild discomfort of the right mid/lower abdomen without guarding or rebound. EKG without overt acute ischemia. WBC 13.6 K, nonspecific with neutrophil predominance but no left shift. H/H 10.9/33.6, proximate to prior values. Chemistry without metabolic acidosis. Creatinine is 1.7 with BUN of 50 increased from recent values. LFTs unremarkable. Electrolytes unremarkable. HS troponin 5.1, within normal limits. UA pending. CT of the abdomen pelvis was performed and demonstrates asymmetric thickening and heterogenous appearance throughout majority of the right iliopsoas muscle consistent with an intramuscular hematoma. A small amount of associated right retroperitoneal hemorrhage is also described as which partially encases the mid right ureter. Mild bilateral perinephric edema is similar to prior. Patient reports that she recalls having a fall when she was in the hospital in August but otherwise denies any falls. Thus, unclear if findings represent a spontaneous hematoma in setting on Eliquis versus subacute to chronic process. Patient agrees with plan for admission for further observation and management. Blood cultures ordered and pending. Lactic acid 0.9, within normal limits. Procalcitonin is not elevated. Case was discussed with Vivek Bourne PAC [facility], who will evaluate the patient for admission. Further management per admitting team. Triage Nursing notes reviewed and agree them. Prior/external medical records reviewed Vital Signs: reviewed Differential diagnosis: Renal colic, UTI, appendicitis, diverticulitis, mesenteric ischemia, aortic pathology, infections, inflammatory bowel disease, PUD, biliary pathology, as well as other pathologies. ER treatment provided: See below. Diagnostics interpreted by me: ECG: NSR, 84 bpm, no ectopy, no overt ST elevation or depression. Cardiac Monitoring: An order for continuous cardiac monitoring was placed and demonstrated NSR, 84 bpm, no ectopy. 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 Patient has any fevers, chills, cough, congestion. She reports she recalls having a fall when she was in the hospital in August but otherwise denies any falls at home since then. ROS: See above HPI for pertinent positives & negatives. A total of 10 systems reviewed and were otherwise negative. VITALS:See Below PHYSICAL EXAMINATION: GENERAL: Awake, alert,uncomfortable-appearing, in no distress, BMI 50.1. HENT: Normocephalic, atraumatic. Oropharynx with dry mucous membranes. Poor dentition. EYES: Normal conjunctiva. Sclera non-icteric. NECK: Supple. No nuchal rigidity. FROM. No JVD. RESPIRATORY: Clear to auscultation. CARDIAC: Regular rate, normal rhythm. Extremities warm and well perfused. Pulses equal. ABDOMEN: Soft, non-distended. Mild discomfort of the right mid/lower abdomen without guarding or rebound. MUSCULOSKELETAL: Chest examination reveals no tenderness. The back is symmetrical on inspection without obvious abnormality. There is no CVA tenderness to palpation. No joint edema. LOWER EXTREMITIES: Calves are equal size bilaterally and non-tender. No edema. No discoloration. NEURO: Normal sensorium. No sensory or motor deficits noted. SKIN: No rash or jaundice noted. 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, 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 Hypothyroidism Myasthenia gravis "EFFECTS ONLY MY VOCAL CORDS" Arthritis Stress incontinence in female GERD (gastroesophageal reflux disease) Hx of cancer of endometrium Idiopathic hypersomnia ADHD Depression Peripheral neuropathy Hx of migraines Irregular heart beats NO CARDS Hx of sleep apnea NO DEVICE Chronic obstructive pulmonary disease H/O Surgical History History of surgery lymph node removed from forehead (benign) Hx of cataract extraction right/left History of esophagogastroduodenoscopy (EGD) H/O colonoscopy with polypectomy H/O total hysterectomy History of tooth extraction Nausea and vomiting after administration of anesthetic agent Family History Other No family history of adverse response to anesthesia Social History Smoking Status: Former smoker Tobacco Type: Cigarettes Smoking End Date: 1990; Second Hand Exposure: Yes (as a small child); Do You Dip or Chew Tobacco: No; Hx Alcohol Use: Yes Alcohol type: wine Hx Substance Use: No Preferred Language: Croatian Communication Ability: Effective Estimating Engineer Required: No Beliefs That Will Affect Care: None Current Living Situation: Alone Feels Safe at Home: Yes Safety Concerns: Feels Safe At This Time Assistive Devices: Cane and Walker Allergies Allergies Allergy/AdvReac Type Severity Reaction Status Date / Time penicillin G Allergy Intermediate HIVES Verified 09/04/23 19:15 codeine AdvReac Intermediate VOMITING Verified 09/04/23 19:15 hydrocodone AdvReac Intermediate Vomiting Verified 09/04/23 19:15 Home Meds Home Medications Medication Instructions Recorded Confirmed atorvastatin 20 mg tablet 20 mg PO QAM 03/27/21 10/12/23 bupropion HCl 100 mg tablet,12 hr 100 mg PO QAM 03/27/21 10/12/23 sustained-release bupropion HCl 150 mg tablet,12 hr 150 mg PO QAM 03/27/21 10/12/23 sustained-release cyanocobalamin (vitamin B-12) 1,000 mcg PO QAM 03/27/21 10/12/23 1,000 mcg tablet fluoxetine 60 mg tablet 60 mg PO QAM 03/27/21 10/12/23 losartan 100 mg tablet 25 mg PO QAM 03/27/21 10/12/23 levothyroxine 50 mcg tablet 50 mcg PO QAM 08/13/22 10/12/23 famotidine 20 mg tablet (Pepcid) 20 mg PO DAILY 09/18/22 10/12/23 insulin degludec 100 19 unit subcut DAILY 01/30/23 10/12/23 unit-liraglutide 3.6 mg/mL(3 mL) subcutaneous pen (Xultophy 100/3.6) mirabegron 50 mg tablet,extended 50 mg PO QAM 01/30/23 10/12/23 release 24 hr (Myrbetriq) furosemide 40 mg tablet 40 mg PO DAILY 08/13/23 10/12/23 cholecalciferol (vitamin D3) 50 50 mcg PO DAILY 09/04/23 10/12/23 mcg (2,000 unit) tablet (Vitamin D3) Previous Rx's Medication Instructions Recorded apixaban 5 mg tablet (Eliquis) 5 mg PO BID #60 tabs 08/14/23 Results & Data (ED) Vital Signs Vital Signs - 24 hr 10/12/23 10:48 10/12/23 11:00 10/12/23 11:17 Temperature 36.8 C Temperature Source Oral Pulse Rate 74 73 Pulse Rate [Apical] 75 Pulse Rate from SpO2 Sensor Pulse Rhythm Regular Pulse Rhythm [Apical] Regular Pulse Strength [Apical] Normal Respiratory Rate 20 18 18 Respiratory Effort / Characteristics Non-Labored Respiratory Depth Normal Respiratory Pattern Regular Blood Pressure 105/70 Blood Pressure [Left Radial Artery] 120/63 Blood Pressure Mean 81 Blood Pressure Mean [Left Radial Artery] 82 Blood Pressure Position [Left Radial Artery] Lying Pulse Oximetry 95 98 92 Oxygen Delivery Method Room Air Room Air Room Air Sepsis Recent Fever Within 48 Hours No Sepsis New/Unexplained Change in Mental Status No Sepsis Action Taken by Nursing No Action Required 10/12/23 11:51 10/12/23 12:00 10/12/23 12:00 Temperature Temperature Source Pulse Rate 78 77 Pulse Rate [Apical] Pulse Rate from SpO2 Sensor Pulse Rhythm Pulse Rhythm [Apical] Pulse Strength [Apical] Respiratory Rate 15 19 Respiratory Effort / Characteristics Respiratory Depth Respiratory Pattern Blood Pressure 123/61 Blood Pressure [Left Radial Artery] Blood Pressure Mean 89 Blood Pressure Mean [Left Radial Artery] Blood Pressure Position [Left Radial Artery] Pulse Oximetry Oxygen Delivery Method Sepsis Recent Fever Within 48 Hours Sepsis New/Unexplained Change in Mental Status Sepsis Action Taken by Nursing 10/12/23 12:15 10/12/23 13:00 10/12/23 13:09 Temperature Temperature Source Pulse Rate Pulse Rate [Apical] Pulse Rate from SpO2 Sensor 84 85 Pulse Rhythm Pulse Rhythm [Apical] Pulse Strength [Apical] Respiratory Rate Respiratory Effort / Characteristics Respiratory Depth Respiratory Pattern Blood Pressure 134/65 Blood Pressure [Left Radial Artery] Blood Pressure Mean 82 Blood Pressure Mean [Left Radial Artery] Blood Pressure Position [Left Radial Artery] Pulse Oximetry 98 92 Oxygen Delivery Method Sepsis Recent Fever Within 48 Hours Sepsis New/Unexplained Change in Mental Status Sepsis Action Taken by Nursing 10/12/23 14:27 10/12/23 15:57 Temperature 36.4 C L Temperature Source Oral Pulse Rate 83 Pulse Rate [Apical] 81 Pulse Rate from SpO2 Sensor Pulse Rhythm Pulse Rhythm [Apical] Pulse Strength [Apical] Respiratory Rate 16 Respiratory Effort / Characteristics Respiratory Depth Normal Respiratory Pattern Regular Blood Pressure Blood Pressure [Left Radial Artery] 146/73 H Blood Pressure Mean Blood Pressure Mean [Left Radial Artery] 97 Blood Pressure Position [Left Radial Artery] Pulse Oximetry 96 Oxygen Delivery Method Room Air Sepsis Recent Fever Within 48 Hours Sepsis New/Unexplained Change in Mental Status Sepsis Action Taken by Nursing Laboratory Data Attestation: I reviewed the patient's lab results. 10/12/23 10:54 10/12/23 10:54 Lab Results 10/12/23 10/12/23 10/12/23 Range/Units 10:54 13:35 14:20 WBC 13.60 H (4.8-10.8) K/ul RBC 3.75 L (4.20-5.40) M/uL Hgb 10.9 L (12.0-16.0) g/dl Hct 33.6 L (37.0-47.0) % MCV 89.6 (80.0-100.0) fL MCH 29.1 (25.0-34.0) pg MCHC 32.4 (32.0-36.0) g/dL RDW Std Deviation 40.3 (36.4-46.3) fL RDW Coeff of Buck 12.4 (11.5-14.5) % Plt Count 327 (130-400) K/uL MPV 10.2 (9.4-12.4) fL Immature Gran % (Auto) 0.4 % Neut % (Auto) 80.8 % Lymph % (Auto) 10.3 % [place] % (Auto) 7.8 % Eos % (Auto) 0.4 % Baso % (Auto) 0.3 % Neut # (Auto) 10.99 H (1.40-6.50) K/uL Lymph # (Auto) 1.40 (1.20-3.40) K/uL [place] # (Auto) 1.06 H (0.11-0.59) K/uL Eos # (Auto) 0.06 (0.00-0.50) K/uL Baso # (Auto) 0.04 (0.00-0.20) K/uL Immature Gran # (Auto) 0.05 (0.01-0.20) K/uL PT 11.1 (9.0-12.0) Seconds INR 1.0 (0.9-1.1) Sodium 133 L (136-145) mmol/L Potassium 5.1 (3.5-5.1) mmol/L Chloride 98 (98-107) mmol/L Carbon Dioxide 27 (21-32) mmol/L Anion Gap 8 (3-11) BUN 50 H (6-23) mg/dl Creatinine 1.71 H (0.6-1.2) mg/dl Est Cr Clr Drug Dosing 38.9 ml/min Est GFR ( Amer) 34.6 ml/min Est GFR (Non-Af Amer) 29.8 ml/min BUN/Creatinine Ratio 29.2 H (10-20) Glucose 168 H (70-99(Fasting)) mg/dl Lactate 0.9 (0.4-2.0) mmol/L Calcium 9.8 (8.6-10.3) mg/dl Phosphorus 4.8 (2.5-4.9) mg/dl Magnesium 2.0 (1.7-2.4) mg/dl Total Bilirubin 1.0 (0.2-1.0) mg/dl AST 12 L (13-39) U/L ALT 12 (7-52) U/L Alkaline Phosphatase 47 (34-104) U/L Troponin I High Sens 5.1 (0-14) pg/ml Total Protein 7.1 (6.0-8.3) gm/dl Albumin 4.1 (3.4-5.0) gm/dl Globulin 3.0 (2.5-4.0) gm/dl Albumin/Globulin Ratio 1.4 (0.9-2) Lipase 16 (11-82) U/L Procalcitonin Cancelled Urine Color Yellow Urine Appearance Clear (Clear) Urine pH 5.0 (4.5-7.5) Ur Specific [place] 1.009 (1.000-1.030) Urine Protein Negative (Negative) Urine Glucose (UA) Negative (Negative) Urine Ketones Negative (Negative) Urine Blood Negative (Negative) Urine Nitrite Negative (Negative) Urine Bilirubin Negative (Negative) Urine Urobilinogen Negative (Negative) Ur Leukocyte Esterase Negative (Negative) 10/12/23 Range/Units 14:28 WBC (4.8-10.8) K/ul RBC (4.20-5.40) M/uL Hgb (12.0-16.0) g/dl Hct (37.0-47.0) % MCV (80.0-100.0) fL MCH (25.0-34.0) pg MCHC (32.0-36.0) g/dL RDW Std Deviation (36.4-46.3) fL RDW Coeff of Buck (11.5-14.5) % Plt Count (130-400) K/uL MPV (9.4-12.4) fL Immature Gran % (Auto) % Neut % (Auto) % Lymph % (Auto) % [place] % (Auto) % Eos % (Auto) % Baso % (Auto) % Neut # (Auto) (1.40-6.50) K/uL Lymph # (Auto) (1.20-3.40) K/uL [place] # (Auto) (0.11-0.59) K/uL Eos # (Auto) (0.00-0.50) K/uL Baso # (Auto) (0.00-0.20) K/uL Immature Gran # (Auto) (0.01-0.20) K/uL PT (9.0-12.0) Seconds INR (0.9-1.1) Sodium (136-145) mmol/L Potassium (3.5-5.1) mmol/L Chloride (98-107) mmol/L Carbon Dioxide (21-32) mmol/L Anion Gap (3-11) BUN (6-23) mg/dl Creatinine (0.6-1.2) mg/dl Est Cr Clr Drug Dosing ml/min Est GFR ( Amer) ml/min Est GFR (Non-Af Amer) ml/min BUN/Creatinine Ratio (10-20) Glucose (70-99(Fasting)) mg/dl Lactate (0.4-2.0) mmol/L Calcium (8.6-10.3) mg/dl Phosphorus (2.5-4.9) mg/dl Magnesium (1.7-2.4) mg/dl Total Bilirubin (0.2-1.0) mg/dl AST (13-39) U/L ALT (7-52) U/L Alkaline Phosphatase (34-104) U/L Troponin I High Sens (0-14) pg/ml Total Protein (6.0-8.3) gm/dl Albumin (3.4-5.0) gm/dl Globulin (2.5-4.0) gm/dl Albumin/Globulin Ratio (0.9-2) Lipase (11-82) U/L Procalcitonin < 0.02 Urine Color Urine Appearance (Clear) Urine pH (4.5-7.5) Ur Specific [place] (1.000-1.030) Urine Protein (Negative) Urine Glucose (UA) (Negative) Urine Ketones (Negative) Urine Blood (Negative) Urine Nitrite (Negative) Urine Bilirubin (Negative) Urine Urobilinogen (Negative) Ur Leukocyte Esterase (Negative) Administered Medications Acetaminophen (Acetaminophen 500 Mg Tab) 1,000 mg PO Q8H AMI Stop: 11/11/23 15:59 Last Admin: 10/12/23 16:31 Dose: 1,000 mg Documented By: MAGGIE Insulin Aspart (Insulin Aspart Per Unit Charge) 0 units SC ACHS AMI; Protocol Stop: 11/11/23 16:29 Last Admin: 10/12/23 17:39 Dose: 3 units Documented By: MAGGIE Co-signed By: MUKESH Ondansetron HCl (Ondansetron Inj 2 Mg/Ml 2 Ml Vial) 4 mg IV Q6H PRN PRN Reason: Nausea Stop: 11/11/23 15:56 Last Admin: 10/12/23 16:31 Dose: 4 mg Documented By: MAGGIE Discontinued Medications Sodium Chloride (Nss) 1,000 mls @ 999 mls/hr IV .Q1H1M ONE Stop: 10/12/23 11:48 Last Infusion: 10/12/23 12:45 Dose: Infused Documented By: Admin: 10/12/23 10:59 Dose: 999 mls/hr Documented By: ESDRAS Acetaminophen (Ofirmev) 1,000 mg in 100 mls @ 400 mls/hr IV NOW STA Stop: 10/12/23 12:30 Last Infusion: 10/12/23 13:22 Dose: Infused Documented By: Admin: 10/12/23 12:26 Dose: 400 mls/hr Documented By: ESDRAS Ceftriaxone Sodium (Rocephin) 2,000 mg in 50 mls @ 100 mls/hr IV NOW STA Stop: 10/12/23 15:00 Last Infusion: 10/12/23 15:59 Dose: Infused Documented By: Admin: 10/12/23 14:59 Dose: 100 mls/hr Documented By: ESDRAS Imaging Data Radiologist's Impression: Abdomen/Pelvis CT 10/12/23 12:[address] WITHOUT CONTRAST CT DOSE: 1465.17 mGy.cm HISTORY: ARF, dysuria TECHNIQUE: Multiaxial CT images of the abdomen and pelvis were performed without contrast. A dose lowering technique was utilized adhering to the principles of ALARA. COMPARISON STUDY: Abdomen and pelvis CT 08/27/2022. FINDINGS: The lung bases are clear. No pneumoperitoneum. No pneumatosis no acute fractures identified. Punctate calcified granuloma seen within the liver and spleen, unchanged. The unenhanced pancreas, gallbladder, and right adrenal gland are unremarkable. Stable mild nodular thickening of the left adrenal gland. There are few small bilateral renal calculi with the largest on the right measuring 5 mm. No ureteral calculi. No hydronephrosis. Mild bilateral perinephric edema is again noted. No retroperitoneal or pelvic lymphadenopathy. No pelvic free fluid. Prior hysterectomy. The bladder is unremarkable. Suboptimal evaluation for bowel pathology due to the lack of intravenous and oral contrast. However, there is no definite bowel wall thickening or obstruction. Normal appendix. A few colonic diverticula. No evidence for acute diverticulitis. Asymmetric thickening and heterogeneous appearance throughout the majority of the right iliopsoas muscle consistent with an iliopsoas intramuscular hematoma. This measures up to 4 cm in diameter best seen on image 200. There is an associated small amount of right retroperitoneal hemorrhage which partially encases the mid right ureter. IMPRESSION: 1. Asymmetric thickening and a heterogeneous appearance throughout the majority of the right iliopsoas muscle consistent with an intramuscular hematoma. 2. There is an associated small amount of right retroperitoneal hemorrhage. 3. Bilateral nephrolithiasis. No ureteral stones. No hydronephrosis. 4. Additional findings as described above. ACT 112: Negative or not required by law. Electronically signed by: Agustin Saab M.D. 10/12/2023 12:54 PM Discharge Plan Visit Data Chief Complaint: Urinary Symptoms Stated Complaint: GROIN PAIN, WEAKNESS ED Provider: Justice Castro Discharge Problem: JOHN (acute kidney injury), Hematoma of right iliopsoas muscle, Right groin pain, Generalized weakness Patient Disposition: Admitted As Inpatient Discharge Instructions Interventions: ED Discharge Assessment Last Done: 10/12/23 15:45 Discharge Problem: Hematoma of right iliopsoas muscle Qualifiers: Encounter type: initial encounter Qualified Code(s): S70.11XA - Contusion of right thigh, initial encounter
[2023-10-12] MEDS: ACETAMINOPHEN 1,000 MG/100 ML VIAL IV STA (12:26)
--- NOTE | 2023-10-12 12:56 | CT Scan Report ---
ABDOMEN AND PELVIS CT WITHOUT CONTRAST CT DOSE: 1465.17 mGy.cm HISTORY: ARF, dysuria TECHNIQUE: Multiaxial CT images of the abdomen and pelvis were performed without contrast. A dose lo wering technique was utilized adhering to the principles of ALARA. COMPARISON STUDY: Abdomen and pelvis CT 08/27/2022. FINDINGS: The lung bases are clear. No pneumoperitoneum. No pneumatosis no acute fractures identified . Punctate calcified granuloma seen within the liver and spleen, unchanged. The unenhanced pancreas, gallbladder, and right adrenal gland are unremarkable. Stable mild nodular thickening of the left adr enal gland. There are few small bilateral renal calculi with the largest on the right measuring 5 mm. No ureteral calculi. No hydronephrosis. Mild bilateral perinephric edema is again noted. No retroper itoneal or pelvic lymphadenopathy. No pelvic free fluid. Prior hysterectomy. The bladder is unremarka ble. Suboptimal evaluation for bowel pathology due to the lack of intravenous and oral contrast. Montez melita, there is no definite bowel wall thickening or obstruction. Normal appendix. A few colonic divert icula. No evidence for acute diverticulitis. Asymmetric thickening and heterogeneous appearance throu ghout the majority of the right iliopsoas muscle consistent with an iliopsoas intramuscular hematoma. This measures up to 4 cm in diameter best seen on image 200. There is an associated small amount of right retroperitoneal hemorrhage which partially encases the mid right ureter. IMPRESSION: 1. Asymmetric thickening and a heterogeneous appearance throughout the majority of the right iliopsoa s muscle consistent with an intramuscular hematoma. 2. There is an associated small amount of right retroperitoneal hemorrhage. 3. Bilateral nephrolithiasis. No ureteral stones. No hydronephrosis. 4. Additional findings as described above. ACT 112: Negative or not required by law. Electronically signed by: Agustin Saab M.D. 10/12/2023 12:54 PM
--- NOTE | 2023-10-12 14:16 | History & Physical Report ---
<Statement entered by Dennis Denis DO - 10/12/23 19:45> I have seen and examined the patient and have discussed the case with the provider above. I have reviewed the advanced practitioner's documentation, and I agree with, and take responsibility for that plan of care. Patient seen and examined while still in the ED. Patient reports that significant right groin pain started about 2 days ago. Highly suspect this is a spontaneous retroperitoneal bleed/iliopsoas bleed in the setting of anticoagulation. Discussed plan as outlined below Date of Service October 12, 2023 Assessment & Plan (1) Right groin pain: (2) Hematoma of right iliopsoas muscle: (3) JOHN (acute kidney injury): (4) UTI (urinary tract infection): (5) Paroxysmal atrial fibrillation: (6) Diabetes mellitus, type 2: (7) Depression: (8) Hypertension: (9) Hyperlipidemia: (10) Hypothyroidism: Plan This is a 68yo F with a PMH of HFpEF (EF 60 to 65% TTE 2023), atrial fibrillation diagnosed in July 2023 on Eliquis, PSVT, hypertension, CATHERINE on CPAP, type 2 diabetes, hypothyroidism, mood disorder, myasthenia gravis affecting vocal cords as per records and other medical problems listed below who presents from home with worsening right-sided groin pain x 3 days and was found to have intramuscular hematoma of R iliopsoas. R groin pain Hematoma of R iliopsoas muscle Three days of severe R groin pain in the setting of Eliquis use for A fib CT abd/pelvis with asymmetric thickening and a heterogeneous appearance throughout the majority of the right iliopsoas muscle consistent with an intramuscular hematoma. There is an associated small amount of right retroperitoneal hemorrhage Denies any falls or known trauma to area - ? spontaneous hematoma Hold Eliquis for now, consulted general surgery, NPO after midnight in case of intervention Scheduled Tylenol, PRN oxycodone for breakthrough pain Fall precautions, PT/OT evals Acute kidney injury Cr 1.71 (baseline ~ 1) in setting of poor PO intake, recent Bactrim course Given 1 L NSS in ED Holding home lasix and losartan Repeat BMP in AM Partially treated UTI Grew Klebsiella pneumonia and Aerococcus urinae with intermediate sensitivity to Bactrim on outpatient 09/30 urine culture Had completed 7 day course Bactrim 10/09, started on Macrobid Will transition to Rocephin for a 3 day course to complete treatment as patient still having dysuria, increased urgency and nausea Follow repeat cultures HFpEF EF 60 to 65% TTE 2023 Appears on dry side Given 1 L NSS in ED, will hold lasix given JOHN Reassess volume status, repeat BMP in AM Paroxysmal atrial fibrillation Sinus bradycardia and possible tachybradycardia syndrome on previous admission - Toprol held at that time. Patient does not want to resume ZIO monitor as outpatient - results pending Hold Eliquis for now given RLE hematoma as discussed above Admission EKG with NSR, monitor on tele DM II Last HbA1c 6.3 in July Basal/bolus insulin per protocol while admitted BSG AC HS Hypertension Holding losartan for now given JOHN as above CATHERINE CPAP HS Hypothyroidism Continue levothyroxine Endometrial cancer S/P surgery Mood disorder Continue home Bupropion, fluoxetine DVT Ppx: Holding Eliquis for now 2/2 hematoma Code status: FULL PCP: Flo Dispo: Admitted to med tele Patient seen in collaboration with Dr. Denis. Please see addendum. I spent a total of 75 minutes coordinating, documenting, and providing care for this patient excluding time spent in the performance of separately billed services. History of Present Illness Chief Complaint: R groin pain Primary Care Provider: Aviva Rossi, This is a 68yo F with a PMH of HFpEF (EF 60 to 65% TTE 2023), atrial fibrillation diagnosed in July 2023 on Eliquis, PSVT, hypertension, CATHERINE on CPAP, type 2 diabetes, hypothyroidism, mood disorder, myasthenia gravis affecting vocal cords as per records and other medical problems listed below who presents from home with worsening right-sided groin pain x 3 days. Patient was admitted at the end of July for new onset atrial fibrillation and sustained a fall during that admission onto left buttocks. Has had tailbone pain since then as well as some mild aching right sided groin pain. Underwent x-rays of coccyx and hips at 08/24 follow-up appointment with PCP that was negative for any fracture or traumatic finding. Was readmitted in August to [facility] for Klebsiella UTI as well as concern for some tachy bradycardia syndrome. Toprol was discontinued at that time. Continued to have urinary symptoms and completed 7-day course of Bactrim on 10/09 with a 09/30 outpatient urine culture growing Klebsiella pneumonia and Aerococcus urinae with intermediate sensitivity to Bactrim. Was then started on a 7-day course of Macrobid on 10/07, which she has been taking up through last evening. Continues to have increased urinary urgency and burning that has been exacerbated by severe "tearing" pain of right groin over the past 3 days. Making ambulation difficult and feels very different from chronic spinal stenosis or resolving coccyx pain from fall in late July. Denies any falls or trauma at home. Ambulates with a walker at baseline. Has been taking Eliquis as prescribed. Also notes ongoing nausea and decreased p.o. intake that she is attributed to UTI. No fever, chills, cough, congestion, chest pain, palpitations, shortness of breath, abdominal pain, diarrhea or constipation. Allergies Allergy/AdvReac Type Severity Reaction Status Date / Time penicillin G Allergy Intermediate HIVES Verified 09/04/23 19:15 codeine AdvReac Intermediate VOMITING Verified 09/04/23 19:15 hydrocodone AdvReac Intermediate Vomiting Verified 09/04/23 19:15 Home Medications Medication Instructions Recorded Confirmed Type atorvastatin 20 mg tablet 20 mg PO QAM 03/27/21 10/12/23 History bupropion HCl 100 mg tablet,12 hr 100 mg PO QAM 03/27/21 10/12/23 History sustained-release bupropion HCl 150 mg tablet,12 hr 150 mg PO QAM 03/27/21 10/12/23 History sustained-release cyanocobalamin (vitamin B-12) 1,000 mcg PO QAM 03/27/21 10/12/23 History 1,000 mcg tablet fluoxetine 60 mg tablet 60 mg PO QAM 03/27/21 10/12/23 History losartan 100 mg tablet 25 mg PO QAM 03/27/21 10/12/23 History levothyroxine 50 mcg tablet 50 mcg PO QAM 08/13/22 10/12/23 History famotidine 20 mg tablet (Pepcid) 20 mg PO DAILY 09/18/22 10/12/23 History insulin degludec 100 19 unit subcut DAILY 01/30/23 10/12/23 History unit-liraglutide 3.6 mg/mL(3 mL) subcutaneous pen (Xultophy 100/3.6) mirabegron 50 mg tablet,extended 50 mg PO QAM 01/30/23 10/12/23 History release 24 hr (Myrbetriq) furosemide 40 mg tablet 40 mg PO DAILY 08/13/23 10/12/23 History apixaban 5 mg tablet (Eliquis) 5 mg PO BID #60 tabs 08/14/23 10/12/23 Rx cholecalciferol (vitamin D3) 50 50 mcg PO DAILY 09/04/23 10/12/23 History mcg (2,000 unit) tablet (Vitamin D3) Past Med/Surg History Problem List (Updated 10/12/23 @ 15:44 by Zoe Clark PA-C) Right groin pain JOHN (acute kidney injury) Hematoma of right iliopsoas muscle UTI (urinary tract infection) Paroxysmal atrial fibrillation Generalized weakness (Acute) Hyperlipidemia Hypertension Diabetes mellitus, type 2 dexcom intact Medical History Chronic cough 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, 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 Hypothyroidism Myasthenia gravis "EFFECTS ONLY MY VOCAL CORDS" Arthritis Stress incontinence in female GERD (gastroesophageal reflux disease) Hx of cancer of endometrium Idiopathic hypersomnia ADHD Depression Peripheral neuropathy Hx of migraines Irregular heart beats NO CARDS Hx of sleep apnea NO DEVICE Chronic obstructive pulmonary disease H/O Surgical History History of surgery lymph node removed from forehead (benign) Hx of cataract extraction right/left History of esophagogastroduodenoscopy (EGD) H/O colonoscopy with polypectomy H/O total hysterectomy History of tooth extraction Nausea and vomiting after administration of anesthetic agent Family History Other No family history of adverse response to anesthesia Social History Smoking Status: Former smoker Tobacco Type: Cigarettes Second Hand Exposure: Yes (as a small child); Do You Dip or Chew Tobacco: No; Hx Alcohol Use: Yes Alcohol type: wine Hx Substance Use: No Preferred Language: Malaysian Communication Ability: Effective [place] [employer] Required: No Beliefs That Will Affect Care: None Current Living Situation: Alone Feels Safe at Home: Yes Assistive Devices: Cane and Walker Review of Systems Review of Systems: At least ten systems reviewed and negative except as noted in the HPI. Physical Exam Physical Exam: General Appearance: WD/WN, vitals as above, NAD, sitting up in bed, obese, pleasant, conversing easily Head: normocephalic, atraumatic Eyes: normal inspection, PERRL, conjunctivae normal, anicteric sclerae ENT: external ear and nose normal, oropharynx normal Neck: normal visual inspection, trachea midline, no thyromegaly Respiratory: normal respiratory effort, lungs clear to auscultation, no wheeze, rales, rhonchi. No accessory muscle use Cardiovascular: regular rate, rhythm, normal peripheral pulses, no BLE edema. Vessels: no JVD Chest: normal inspection of chest Abdomen/GI: normal bowel sounds, soft, nontender, no hepatosplenomegaly Extremities/Musculoskeletal: + R TTP of lower abdomen extending into groin, no trauma to area visualized, no cyanosis or clubbing, extremities motor strength 5/5 Neurologic: PERRL, EOMI, accommodation nl, no face palsy, no dysarthria, CN's II-XI intact bilaterally and moves all extremities Psychiatric: A+Ox3, euthymic affect Skin: no rashes, normal color, warm/dry Results & Data Results & Data Vital Signs (Past 12 Hours) Vital Signs Temp Pulse Pulse Resp BP BP Pulse Ox 10/12/23 13:09 92 10/12/23 13:00 134/65 10/12/23 12:15 98 10/12/23 12:00 123/61 10/12/23 12:00 77 19 10/12/23 11:51 78 15 10/12/23 11:17 75 18 120/63 92 10/12/23 11:00 73 18 98 10/12/23 10:48 36.8 C 74 20 105/70 95 O2 Del Method 10/12/23 13:09 10/12/23 13:00 10/12/23 12:15 10/12/23 12:00 10/12/23 12:00 10/12/23 11:51 10/12/23 11:17 Room Air 10/12/23 11:00 Room Air 10/12/23 10:48 Room Air Laboratory Results Short CBC 10/12/23 Range/Units 10:54 WBC 13.60 H (4.8-10.8) K/ul Hgb 10.9 L (12.0-16.0) g/dl Hct 33.6 L (37.0-47.0) % Plt Count 327 (130-400) K/uL BMP 10/12/23 10:54 Sodium 133 L Potassium 5.1 Chloride 98 Carbon Dioxide 27 BUN 50 H Creatinine 1.71 H Glucose 168 H Calcium 9.8 Liver Function 10/12/23 Range/Units 10:54 Total Bilirubin 1.0 (0.2-1.0) mg/dl AST 12 L (13-39) U/L ALT 12 (7-52) U/L Alkaline Phosphatase 47 (34-104) U/L Albumin 4.1 (3.4-5.0) gm/dl Urine 10/12/23 Range/Units 13:35 Urine Color Yellow Urine Appearance Clear (Clear) Urine pH 5.0 (4.5-7.5) Ur Specific [place] 1.009 (1.000-1.030) Urine Protein Negative (Negative) Urine Glucose (UA) Negative (Negative) Diagnostic Findings Abdomen/Pelvis CT 10/12/23 12:[address] WITHOUT CONTRAST CT DOSE: 1465.17 mGy.cm HISTORY: ARF, dysuria TECHNIQUE: Multiaxial CT images of the abdomen and pelvis were performed without contrast. A dose lowering technique was utilized adhering to the principles of ALARA. COMPARISON STUDY: Abdomen and pelvis CT 08/27/2022. FINDINGS: The lung bases are clear. No pneumoperitoneum. No pneumatosis no acute fractures identified. Punctate calcified granuloma seen within the liver and spleen, unchanged. The unenhanced pancreas, gallbladder, and right adrenal gland are unremarkable. Stable mild nodular thickening of the left adrenal gland. There are few small bilateral renal calculi with the largest on the right measuring 5 mm. No ureteral calculi. No hydronephrosis. Mild bilateral perinephric edema is again noted. No retroperitoneal or pelvic lymphadenopathy. No pelvic free fluid. Prior hysterectomy. The bladder is unremarkable. Suboptimal evaluation for bowel pathology due to the lack of intravenous and oral contrast. However, there is no definite bowel wall thickening or obstruction. Normal appendix. A few colonic diverticula. No evidence for acute diverticulitis. Asymmetric thickening and heterogeneous appearance throughout the majority of the right iliopsoas muscle consistent with an iliopsoas intramuscular hematoma. This measures up to 4 cm in diameter best seen on image 200. There is an associated small amount of right retroperitoneal hemorrhage which partially encases the mid right ureter. IMPRESSION: 1. Asymmetric thickening and a heterogeneous appearance throughout the majority of the right iliopsoas muscle consistent with an intramuscular hematoma. 2. There is an associated small amount of right retroperitoneal hemorrhage. 3. Bilateral nephrolithiasis. No ureteral stones. No hydronephrosis. 4. Additional findings as described above. ACT 112: Negative or not required by law. Electronically signed by: Agustin Saab M.D. 10/12/2023 12:54 PM ECG Additional Comments: EKG reviewed with NSR, no significant changes from previous
[2023-10-12 14:18] LABS: Appearance Urine Clear (Clear); Bilirubin Urine Negative (Negative); Blood Urine Negative (Negative); Color Urine Yellow; Glucose Urine UA Negative (Negative); Ketones Urine Negative (Negative); Leukocyte Esterase Urine Negative (Negative); Nitrite Urine Negative (Negative); Protein Urine Negative (Negative); Specific Gravity Urine 1.009 (1.000-1.030); Urobilinogen Urine Negative (Negative)
[2023-10-12] MEDS: cefTRIAXone SODIUM 2,000 MG/50 ML BAG IV STA (14:59)
[2023-10-12] MEDS ORDERED: GLUCOSE 10 TAB/TUBE PO PRN (15:13)
[2023-10-12] MEDS ORDERED: DEXTROSE 50% 50 ML SYRINGE IV PRN (15:13)
[2023-10-12] MEDS ORDERED: GLUCAGON FOR INJ 1 MG VIAL SQ PRN (15:13)
[2023-10-12] MEDS ORDERED: CARBOHYDRATES FOR HYPOGLYCEMIA PO PRN (15:13)
[2023-10-12] MEDS ORDERED: PHARMACY GLYCEMIC MGMT CONSULT PRN (15:13)
[2023-10-12] MEDS ORDERED: GLUCOSE 40% GEL 15 GM TUBE PO PRN (15:13)
--- NOTE | 2023-10-12 16:09 | Pharmacy Report ---
Pharmacy Glycemic Short Note 2 - Date of Service October 12, 2023 - Glycemic Short BSG Results (Last 24 hours): 10/12/23 10:54 Glucose 168 H OUTPATIENT ANTIDIABETIC REGIMEN: * None - diet controlled * HbA1c: 6.3% (08/14/23) ASSESSMENT: * 68 yo F admitted on 10/12/23 secondary to hematoma. Pharmacy has been consulted to assist with inpatient glycemic management. Patient is prediabetic as an outpatient. Please refer to outpatient regimen and most recent HbA1c above. * Serum BSG upon admission was 168 mg/dL. Ordered a T2DM diet for now but will be NPO after midnight in case of intervention for hematoma. * Only other stressor is Ceftriaxone for possible UTI. * Starting Novolog based on weight stress of 1-2. Will start Lantus 5 units BID. PLAN FOR INPATIENT GLYCEMIC CONTROL: * Basal insulin * Lantus 5 units SQ BID * Bolus insulin * NovoLog per scale ACHS or Q6hrs while NPO * Goal Range: Low 110 mg/dL - High 140 mg/dL * Correction Factor: 25 mg/dL/unit * Nutritional / Prandial insulin per carb ratio of 1 unit per 8 grams CHO consumed
[2023-10-12] MEDS: ONDANSETRON INJ 2 MG/ML 2 ML VIAL IV PRN (16:31)
[2023-10-12] MEDS: ACETAMINOPHEN 500 MG TAB PO SCH (16:31)
[2023-10-12] MEDS: INSULIN ASPART PER UNIT CHARGE SC SCH (17:39)
[2023-10-12] MEDS: LANTUS PER UNIT CHARGE SC SCH (20:43)
[2023-10-12] MEDS: oxyCODONE HCL IR 5 MG TAB (IMMEDIATE RELEASE) PO PRN (20:45)
[2023-10-12] MEDS ORDERED: LANTUS PER UNIT CHARGE SQ SCH (21:00)
[2023-10-13] MEDS: LEVOTHYROXINE SODIUM 50 MCG TABLET PO SCH (05:33)
[2023-10-13 07:40] LABS: Hematocrit (blood only) 29.9 % (37.0-47.0); Hemoglobin 9.7 g/dl (12.0-16.0); Mean Corpuscular Hemoglobin 29.6 pg (25.0-34.0); Mean Corpuscular Hgb Conc 32.4 g/dL (32.0-36.0); Mean Corpuscular Volume 91.2 fL (80.0-100.0); Mean Platelet Volume 10.3 fL (9.4-12.4); Platelet Count 254 K/uL (130-400); RDW Coefficient of Variation 12.4 % (11.5-14.5); RDW Standard Deviation 41.5 fL (36.4-46.3); Red Blood Count 3.28 M/uL (4.20-5.40); White Blood Count 10.59 K/ul (4.8-10.8)
[2023-10-13 07:43] LABS: BUN Creatinine Ratio 28.9 (10-20); Calcium 8.8 mg/dl (8.6-10.3); Creatinine Clr Calc Pharmacy 40.1 ml/min; Est GFR (African American) 35.8 ml/min; Est GFR (Non-African American) 30.9 ml/min; Potassium 4.4 mmol/L (3.5-5.1)
[2023-10-13 08:14] LABS: Estimated Average Glucose 143 mg/dl; Hemoglobin A1C 6.6 % (4.5-5.6)
--- NOTE | 2023-10-13 08:25 | Surgery Consultation ---
Date of Consultation October 13, 2023 Assessment & Plan (1) Hematoma of right iliopsoas muscle: spontaneous bleed serial H/Hs most of these bleeds stop without intervention if bleeding persists recommend tertiary center for a-gram and possible embolization hold Eliquis no surgical issues History of Present Illness Attending Physician: Lorenzo Jimenez MD History of Present Illness This is a 68YO female admitted with worsening right-sided groin pain x 3 days. She had a fall in July and new onset atrial fibrillation. She describes the pain as a tearing pain of right groin. It has been dificult to ambulate. She denies ant recent trauma at home. Has been taking Eliquis as prescribed. Allergies Allergy/AdvReac Type Severity Reaction Status Date / Time penicillin G Allergy Intermediate HIVES Verified 09/04/23 19:15 codeine AdvReac Intermediate VOMITING Verified 09/04/23 19:15 hydrocodone AdvReac Intermediate Vomiting Verified 09/04/23 19:15 Home Medications Medication Instructions Recorded Confirmed Type atorvastatin 20 mg tablet 20 mg PO QAM 03/27/21 10/12/23 History bupropion HCl 100 mg tablet,12 hr 100 mg PO QAM 03/27/21 10/12/23 History sustained-release bupropion HCl 150 mg tablet,12 hr 150 mg PO QAM 03/27/21 10/12/23 History sustained-release cyanocobalamin (vitamin B-12) 1,000 mcg PO QAM 03/27/21 10/12/23 History 1,000 mcg tablet fluoxetine 60 mg tablet 60 mg PO QAM 03/27/21 10/12/23 History losartan 100 mg tablet 25 mg PO QAM 03/27/21 10/12/23 History levothyroxine 50 mcg tablet 50 mcg PO QAM 08/13/22 10/12/23 History famotidine 20 mg tablet (Pepcid) 20 mg PO DAILY 09/18/22 10/12/23 History insulin degludec 100 19 unit subcut DAILY 01/30/23 10/12/23 History unit-liraglutide 3.6 mg/mL(3 mL) subcutaneous pen (Xultophy 100/3.6) mirabegron 50 mg tablet,extended 50 mg PO QAM 01/30/23 10/12/23 History release 24 hr (Myrbetriq) furosemide 40 mg tablet 40 mg PO DAILY 08/13/23 10/12/23 History apixaban 5 mg tablet (Eliquis) 5 mg PO BID #60 tabs 08/14/23 10/12/23 Rx cholecalciferol (vitamin D3) 50 50 mcg PO DAILY 09/04/23 10/12/23 History mcg (2,000 unit) tablet (Vitamin D3) Patient History Medical History Chronic cough 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, 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 Hypothyroidism Myasthenia gravis "EFFECTS ONLY MY VOCAL CORDS" Arthritis Stress incontinence in female GERD (gastroesophageal reflux disease) Hx of cancer of endometrium Idiopathic hypersomnia ADHD Depression Peripheral neuropathy Hx of migraines Irregular heart beats NO CARDS Hx of sleep apnea NO DEVICE Chronic obstructive pulmonary disease H/O Surgical History History of surgery lymph node removed from forehead (benign) Hx of cataract extraction right/left History of esophagogastroduodenoscopy (EGD) H/O colonoscopy with polypectomy H/O total hysterectomy History of tooth extraction Nausea and vomiting after administration of anesthetic agent Family History Other No family history of adverse response to anesthesia Social History Smoking Status: Former smoker Tobacco Type: Cigarettes Smoking End Date: 1990; Second Hand Exposure: Yes (as a small child); Do You Dip or Chew Tobacco: No; Hx Alcohol Use: Yes Alcohol type: wine Hx Substance Use: No Preferred Language: Yi Communication Ability: Effective [employer] Publications Required: No Beliefs That Will Affect Care: None Current Living Situation: Alone Feels Safe at Home: Yes Safety Concerns: Feels Safe At This Time Assistive Devices: Cane and Walker Review of Systems Constitutional: no fever, no chills and no anorexia Eyes: no problem reported Ear, Nose, Mouth, Throat: no problem reported Respiratory: + dyspnea on exertion; no cough and no d yspnea Cardiovascular: no chest pain Gastrointestinal: no abdominal pain, no nausea, no vomiting and no change in bowel habits Genitourinary: + dysuria Musculoskeletal: + problem reported (right groin pain) Integumentary: no problem reported Neurologic: + generalized weakness; no localized wea kness Psychiatric: no behavioral changes Endocrine: + fatigue Hematologic / Lymphatic: + easy bleeding and + easy bruising Physical Exam Constitutional: WD/WN, vitals as above + morbidly obese Eyes: PERRL, conjunctivae normal, anicteric sclerae ENMT: external ear and nose normal, oropharynx normal Neck: trachea midline Respiratory: normal respiratory effort, lungs clear to auscultation Cardiovascular: Rate/Rhythm: + irregularly irregular Gastrointestinal (Abdomen): Inspection/Auscultation: abdomen normal to inspection, normal bowel sounds and + significant pannus; abdomen not distended Percussion/Palpation: + abdomen tender (RLQ) and abdomen soft; no guarding and abdomen not rigid Musculoskeletal: Head/Neck/Chest: normocephalic and head atraumatic Skin: no rashes, warm and dry Psychiatric: Orientation: alert and oriented x 3 Results & Data Vital Signs (Past 12 Hours) Vital Signs Temp Pulse Pulse Resp BP Pulse Ox O2 Del Method 10/13/23 08:02 36.5 C 79 17 149/71 H 96 Room Air 10/13/23 06:55 76 10/13/23 03:12 36.3 C L 78 16 113/70 95 Room Air 10/12/23 23:59 73 10/12/23 23:26 36.6 C 75 16 105/62 95 Room Air Diagnostic Findings ABDOMEN AND PELVIS CT WITHOUT CONTRAST CT DOSE: 1465.17 mGy.cm HISTORY: ARF, dysuria TECHNIQUE: Multiaxial CT images of the abdomen and pelvis were performed without contrast. A dose lowering technique was utilized adhering to the principles of ALARA. COMPARISON STUDY: Abdomen and pelvis CT 08/27/2022. FINDINGS: The lung bases are clear. No pneumoperitoneum. No pneumatosis no acute fractures identified. Punctate calcified granuloma seen within the liver and spleen, unchanged. The unenhanced pancreas, gallbladder, and right adrenal gland are unremarkable. Stable mild nodular thickening of the left adrenal gland. There are few small bilateral renal calculi with the largest on the right measuring 5 mm. No ureteral calculi. No hydronephrosis. Mild bilateral perinephric edema is again noted. No retroperitoneal or pelvic lymphadenopathy. No pelvic free fluid. Prior hysterectomy. The bladder is unremarkable. Suboptimal evaluation for bowel pathology due to the lack of intravenous and oral contrast. However, there is no definite bowel wall thickening or obstruction. Normal appendix. A few colonic diverticula. No evidence for acute diverticulitis. Asymmetric thickening and heterogeneous appearance throughout the majority of the right iliopsoas muscle consistent with an iliopsoas intramuscular hematoma. This measures up to 4 cm in diameter best seen on image 200. There is an associated small amount of right retroperitoneal hemorrhage which partially encases the mid right ureter. IMPRESSION: 1. Asymmetric thickening and a heterogeneous appearance throughout the majority of the right iliopsoas muscle consistent with an intramuscular hematoma. 2. There is an associated small amount of right retroperitoneal hemorrhage. 3. Bilateral nephrolithiasis. No ureteral stones. No hydronephrosis. 4. Additional findings as described above. (1) Hematoma of right iliopsoas muscle Encounter type: initial encounter Qualified Code(s): S70.11XA - Contusion of right thigh, initial encounter
[2023-10-13] MEDS: buPROPion SR 150 MG TABCR PO SCH (09:01)
[2023-10-13] MEDS: VIBEGRON 75 MG TAB PO SCH (09:01)
[2023-10-13] MEDS: buPROPion SR 100 MG TABCR PO SCH (09:02)
[2023-10-13] MEDS: CYANOCOBALAMIN (B-12) 500 MCG TABLET PO SCH (09:02)
[2023-10-13] MEDS: CHOLECALCIFEROL 25 MCG (1000 UNITS) TAB PO SCH (09:02)
[2023-10-13] MEDS: FAMOTIDINE 20 MG TAB PO SCH (09:02)
[2023-10-13] MEDS: ATORVASTATIN 20 MG TAB PO SCH (09:02)
[2023-10-13] MEDS: FLUoxetine HCL 20 MG CAP PO SCH (09:03)
--- NOTE | 2023-10-13 13:54 | Hospitalist Progress Note ---
Date of Service October 13, 2023 Assessment & Plan (1) Right groin pain: (2) Hematoma of right iliopsoas muscle: (3) JOHN (acute kidney injury): (4) UTI (urinary tract infection): (5) Paroxysmal atrial fibrillation: (6) Diabetes mellitus, type 2: (7) Depression: (8) Hypertension: (9) Hyperlipidemia: (10) Hypothyroidism: Plan This is a 68yo F with a PMH of HFpEF (EF 60 to 65% TTE 2023), atrial fibrillation diagnosed in July 2023 on Eliquis, PSVT, hypertension, CATHERINE on CPAP, type 2 diabetes, hypothyroidism, mood disorder, myasthenia gravis affecting vocal cords as per records and other medical problems listed below who presents from home with worsening right-sided groin pain x 3 days and was found to have intramuscular hematoma of R iliopsoas. R groin pain Hematoma of R iliopsoas muscle Three days of severe R groin pain in the setting of Eliquis use for A fib CT abd/pelvis with asymmetric thickening and a heterogeneous appearance throughout the majority of the right iliopsoas muscle consistent with an intramuscular hematoma. There is an associated small amount of right retroperitoneal hemorrhage Denies any falls or known trauma to area - ? spontaneous hematoma Eliquis is currently on hold. Obtain CBC at 6 pm today to monitor H and h. Discussed with patient that she is at increased risk of Stroke give her history of A.fib. She verbalized understanding and agrees with holding Eliquis at this time. She will need to follow up with her PCP and Cardiology to discuss regarding resuming Eliquis in the future. Scheduled Tylenol, PRN oxycodone for breakthrough pain Fall precautions, PT/OT evals Acute kidney injury Cr 1.71 (baseline ~ 1) in setting of poor PO intake, recent Bactrim course Given 1 L NSS in ED Holding home lasix and losartan will give her one more litre of iv fluids Monitor CBC daily. Partially treated UTI Grew Klebsiella pneumonia and Aerococcus urinae with intermediate sensitivity to Bactrim on outpatient 09/30 urine culture Had completed 7 day course Bactrim 10/09, started on Macrobid Will transition to Rocephin for a 3 day course to complete treatment as patient still having dysuria, increased urgency and nausea Blood culture obtained; will follow up on results. HFpEF EF 60 to 65% TTE 2023 Appears on dry side Given 1 L NSS in ED, will hold lasix given JOHN Reassess volume status, repeat BMP in AM Paroxysmal atrial fibrillation Sinus bradycardia and possible tachybradycardia syndrome on previous admission - Toprol held at that time. Patient does not want to resume ZIO monitor as outpatient - results pending Hold Eliquis for now given RLE hematoma as discussed above Admission EKG with NSR, monitor on tele DM II Last HbA1c 6.6 inpatient Basal/bolus insulin per protocol while admitted BSG AC HS Hypertension Holding losartan for now given JOHN as above CATHERINE CPAP HS Hypothyroidism Continue levothyroxine Endometrial cancer S/P surgery Mood disorder Continue home Bupropion, fluoxetine DVT Ppx: Holding Eliquis for now 2/2 hematoma Code status: FULL PCP: Flo Dispo: Admitted to med tele Time spent evaluating patient, direct bedside care, chart review, placing orders, interpretation of diagnostic studies, discussion with consultants, patient, and family members, as well as other required patient management activities is 50 minutes Please note the above document was generated using voice recognition software. It may contain grammatical, syntax or spelling errors. Any formal questions or concerns about the content, text or information contained within the body of this dictation should be directly addressed to the provider for clarification Admission and Anticipated Discharge Date Admission Date: October 12, 2023 Subjective Patient Seen and examined at bedside. She is sitting at the side of the bed; not in any distress. She reports that the pain in left groin has improved compared to admission due to oxycodone. Review of Systems Review of Systems: All systems reviewed & are unremarkable except as noted in Subjective Physical Exam Physical Exam: General Appearance: WD/WN, vitals as above, NAD, sitting up in bed, obese, pleasant, conversing easily Respiratory: normal respiratory effort, lungs clear to auscultation, no wheeze, rales, rhonchi. No accessory muscle use Cardiovascular: regular rate, rhythm, normal peripheral pulses, no BLE edema. Vessels: no JVD Chest: normal inspection of chest Abdomen/GI: normal bowel sounds, soft, nontender, no hepatosplenomegaly Extremities/Musculoskeletal: + R TTP of lower abdomen, no trauma to area visualized, no cyanosis or clubbing, extremities motor strength 5/5 Neurologic: PERRL, EOMI, accommodation nl, no face palsy, no dysarthria, CN's II-XI intact bilaterally and moves all extremities Psychiatric: A+Ox3, euthymic affect Skin: no rashes, normal color, warm/dry Results & Data Results & Data Vital Signs (Past 12 Hours) Vital Signs Temp Pulse Pulse Resp BP Pulse Ox O2 Del Method 10/13/23 11:38 36.4 C L 73 18 110/71 95 Room Air 10/13/23 08:02 36.5 C 79 17 149/71 H 96 Room Air 10/13/23 06:55 76 10/13/23 03:12 36.3 C L 78 16 113/70 95 Room Air (2) Hematoma of right iliopsoas muscle Encounter type: initial encounter Qualified Code(s): S70.11XA - Contusion of right thigh, initial encounter
[2023-10-13] MEDS: LACTATED RINGER'S 1,000 ML IV SCH (14:28)
[2023-10-13] MEDS: cefTRIAXone SODIUM 2,000 MG/50 ML BAG IV SCH (14:29)
[2023-10-13 19:03] LABS: Basophils # (auto) 0.05 K/uL (0.00-0.20); Basophils % (auto) 0.3 %; Eosinophils # (auto) 0.13 K/uL (0.00-0.50); Eosinophils % (auto) 0.8 %; Hematocrit (blood only) 31.5 % (37.0-47.0); Hemoglobin 10.1 g/dl (12.0-16.0); Immature Granulocytes # (auto) 0.06 K/uL (0.01-0.20); Immature Granulocytes % (auto) 0.4 %; Lymphocytes # (auto) 1.64 K/uL (1.20-3.40); Lymphocytes % (auto) 10.6 %; Mean Corpuscular Hemoglobin 28.9 pg (25.0-34.0); Mean Corpuscular Hgb Conc 32.1 g/dL (32.0-36.0); Mean Corpuscular Volume 90.3 fL (80.0-100.0); Mean Platelet Volume 10.2 fL (9.4-12.4); Monocytes # (auto) 0.99 K/uL (0.11-0.59); Monocytes % (auto) 6.4 %; Neutrophils # (auto) 12.56 K/uL (1.40-6.50); Neutrophils % (auto) 81.5 %; Platelet Count 283 K/uL (130-400); RDW Coefficient of Variation 12.4 % (11.5-14.5); RDW Standard Deviation 40.8 fL (36.4-46.3); Red Blood Count 3.49 M/uL (4.20-5.40); White Blood Count 15.43 K/ul (4.8-10.8)
[2023-10-13] MEDS: POLYETHYLENE (MIRALAX) 17 GM PACK PO PRN (21:21)
--- NOTE | 2023-10-14 06:25 | Electrocardiogram Report ---
Test Reason : Blood Pressure : / mmHG Vent. Rate : 084 BPM Atrial Rate : 084 BPM P-R Int : 132 ms QRS Dur : 084 ms QT Int : 376 ms P-R-T Axes : 027 007 028 degrees QTc Int : 444 ms Normal sinus rhythm Normal ECG When compared with ECG of 04-SEP-2023 13:42, No significant change was found Confirmed by James Badillo ([id number]) on 10/14/2023 6:25:20 AM Referred By: REFERRED SELF Confirmed By:James Badillo
[2023-10-14] MEDS: COUGH DROP (SUGAR FREE) LOZ 24 LOZ/1 BOX BUCCAL PRN (06:27)
[2023-10-14 07:29] LABS: Hematocrit (blood only) 29.8 % (37.0-47.0); Hemoglobin 9.3 g/dl (12.0-16.0); Mean Corpuscular Hemoglobin 28.4 pg (25.0-34.0); Mean Corpuscular Hgb Conc 31.2 g/dL (32.0-36.0); Mean Corpuscular Volume 90.9 fL (80.0-100.0); Mean Platelet Volume 10.3 fL (9.4-12.4); Platelet Count 262 K/uL (130-400); RDW Coefficient of Variation 12.2 % (11.5-14.5); RDW Standard Deviation 40.8 fL (36.4-46.3); Red Blood Count 3.28 M/uL (4.20-5.40); White Blood Count 10.45 K/ul (4.8-10.8)
[2023-10-14 07:41] LABS: BUN Creatinine Ratio 28.6 (10-20); Calcium 8.7 mg/dl (8.6-10.3); Est GFR (African American) 30.6 ml/min; Est GFR (Non-African American) 26.4 ml/min; Potassium 4.7 mmol/L (3.5-5.1)
[2023-10-14] MEDS: NYSTATIN POWDER 15GM BTL EXT SCH (08:16)
--- NOTE | 2023-10-14 09:02 | Hospitalist Progress Note ---
Date of Service October 14, 2023 Assessment & Plan (1) Right groin pain: (2) Hematoma of right iliopsoas muscle: (3) JOHN (acute kidney injury): (4) UTI (urinary tract infection): (5) Paroxysmal atrial fibrillation: (6) Diabetes mellitus, type 2: (7) Depression: (8) Hypertension: (9) Hyperlipidemia: (10) Hypothyroidism: Plan This is a 68yo F with a PMH of HFpEF (EF 60 to 65% TTE 2023), atrial fibrillation diagnosed in July 2023 on Eliquis, PSVT, hypertension, CATHERINE on CPAP, type 2 diabetes, hypothyroidism, mood disorder, myasthenia gravis affecting vocal cords as per records and other medical problems listed below who presents from home with worsening right-sided groin pain x 3 days and was found to have intramuscular hematoma of R iliopsoas. R groin pain Hematoma of R iliopsoas muscle Acute blood loss anemia Three days of severe R groin pain in the setting of Eliquis use for A fib CT abd/pelvis with asymmetric thickening and a heterogeneous appearance throughout the majority of the right iliopsoas muscle consistent with an intr amuscular hematoma. There is an associated small amount of right retroperitoneal hemorrhage Denies any falls or known trauma to area - ? spontaneous hematoma Hb decreased from baseline of 11 to 9 Eliquis is currently on hold. CBC daily Discussed with patient that she is at increased risk of Stroke give her history of A.fib. She verbalized understanding and agrees with holding Eliquis at this time. She will need to follow up with her PCP and Cardiology to discuss regarding resuming Eliquis in the future. Scheduled Tylenol, PRN oxycodone for breakthrough pain Fall precautions, PT/OT evals Acute kidney injury Cr 1.71 (baseline ~ 1) in setting of poor PO intake, recent Bactrim course and possible related with bleeding Given 1 L NSS in ED Holding home lasix and losartan Obtain urine electrolytes Obtain CK CT abdomen/pelvis didn't hydronephrosis will start LR at 80cc per hour Nephrology consulted for comanagement Partially treated UTI Grew Klebsiella pneumonia and Aerococcus urinae with intermediate sensitivity to Bactrim on outpatient 09/30 urine culture Had completed 7 day course Bactrim 10/09, started on Macrobid Will transition to Rocephin for a 3 day course to complete treatment as patient still having dysuria, increased urgency and nausea Blood culture obtained; will follow up on results. HFpEF, compensated EF 60 to 65% TTE 2023 Appears on dry side hold lasix given JOHN Reassess volume status, repeat BMP in AM Paroxysmal atrial fibrillation Sinus bradycardia and possible tachybradycardia syndrome on previous admission - Toprol held at that time. Patient does not want to resume ZIO monitor as outpatient - results pending Hold Eliquis for now given RLE hematoma as discussed above Admission EKG with NSR, monitor on tele DM II Last HbA1c 6.6 inpatient Basal/bolus insulin per protocol while admitted BSG AC HS Hypertension Holding losartan for now given JOHN as above CATHERINE CPAP HS Hypothyroidism Continue levothyroxine Endometrial cancer S/P surgery Mood disorder Continue home Bupropion, fluoxetine DVT Ppx: Holding Eliquis for now 2/2 hematoma Code status: FULL PCP: Flo Dispo: Admitted to med tele Time spent evaluating patient, direct bedside care, chart review, placing orders, interpretation of diagnostic studies, discussion with consultants, patient, and family members, as well as other required patient management activities is 50 minutes Please note the above document was generated using voice recognition software. It may contain grammatical, syntax or spelling errors. Any formal questions or concerns about the content, text or information contained within the body of this dictation should be directly addressed to the provider for clarification Admission and Anticipated Discharge Date Admission Date: October 12, 2023 Subjective Patient seen and examined at bedside. She is comfortable; not in any distress Pain well controlled with oxycodone. Review of Systems Review of Systems: All systems reviewed & are unremarkable except as noted in Subjective Physical Exam Physical Exam: General Appearance: WD/WN, vitals as above, NAD, sitting up in bed, obese, pleasant, conversing easily Respiratory: normal respiratory effort, lungs clear to auscultation, no wheeze, rales, rhonchi. No accessory muscle use Cardiovascular: regular rate, rhythm, normal peripheral pulses, no BLE edema. Vessels: no JVD Chest: normal inspection of chest Abdomen/GI: normal bowel sounds, soft, nontender, no hepatosplenomegaly Extremities/Musculoskeletal: + R TTP of lower abdomen, no trauma to area visualized, no cyanosis or clubbing, extremities motor strength 5/5 Neurologic: PERRL, EOMI, accommodation nl, no face palsy, no dysarthria, CN's II-XI intact bilaterally and moves all extremities Psychiatric: A+Ox3, euthymic affect Skin: no rashes, normal color, warm/dry Results & Data Results & Data Vital Signs (Past 12 Hours) Vital Signs Temp Pulse Pulse Resp BP BP Pulse Ox 10/14/23 08:55 73 10/14/23 08:01 36.4 C L 74 19 146/80 H 96 10/14/23 07:52 72 10/14/23 02:27 36.6 C 69 18 122/67 97 10/13/23 23:47 79 10/13/23 23:01 36.3 C L 75 18 107/64 94 10/13/23 22:30 10/13/23 21:49 79 O2 Del Method 10/14/23 08:55 10/14/23 08:01 Room Air 10/14/23 07:52 10/14/23 02:27 Room Air 10/13/23 23:47 10/13/23 23:01 Room Air 10/13/23 22:30 Room Air 10/13/23 21:49 (2) Hematoma of right iliopsoas muscle Encounter type: initial encounter Qualified Code(s): S70.11XA - Contusion of right thigh, initial encounter
[2023-10-14] MEDS: LACTATED RINGER'S 1,000 ML IV SCH (09:26)
--- NOTE | 2023-10-14 10:03 | Nephrology Consultation ---
Date of Consultation October 14, 2023 Assessment & Plan (1) JOHN (acute kidney injury): Non oliguric JOHN sec to hemodynamic Issue in the setting of Acute bleed, recent UTI/bactrim/Abx, Poor PO intake and Concomitant use of Lasix and losartan in this situation. Creat is rising for now but I expect it to plateau and be better tomorrow or within next 2 days. Agree with iVF for one day. Agree with holding Lasix and losartan for now. CT abdomen--No hydronephrosis. urine sediment was very bland--neg protein and neg Blood--this is reassuring as more serious Causes of JOHN will have more active sediment. She is still not out of risk with Acute Psoas muscle hematoma and need of IV contrast with Angiogram/embolization. hgb drop has been minimal so far. (2) Hematoma of right iliopsoas muscle: Note from gen surg reviewed. She is still not out of risk with Acute Psoas muscle hematoma and need of IV contrast with Angiogram/embolization. hgb drop has been minimal so far. (3) Hypertension: BP somewhat high. Currently Losartan and Lasix on hold given john. 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 hgb dropped from 10.9 to 9.3 today. Creat is up to 1.9. Getting Ringer lactate. BP is not low. making lot of urine but not measured. her medical problems are: HFpEF (EF 60 to 65% TTE 2023), atrial fibrillation diagnosed in July 2023 on Eliquis, PSVT, hypertension, CATHERINE on CPAP, type 2 diabetes, hypothyroidism, mood disorder, myasthenia gravis affecting vocal cords. She presented from home with worsening right-sided groin pain x 3 days with UTI like symptoms and gen weakness, Nausea and poor appetite. Patient was admitted for new onset atrial fibrillation and started on eliquis. She was readmitted in August to [facility] for Klebsiella UTI as well as concern for some tachy bradycardia syndrome. Toprol was discontinued at that time. Continued to have urinary symptoms and completed 7-day course of Bactrim on 10/09 with a 09/30 outpatient urine culture growing Klebsiella pneumonia and Aerococcus urinae with intermediate sensitivity to Bactrim. She was then started on a 7-day course of Macrobid on 10/07, which she has been taking till now. Denies any falls or trauma at home. Ambulates with a walker at baseline. No fever, chills, cough, congestion, chest pain, palpitations, shortness of breath, abdominal pain, diarrhea or constipation. At home on Losartan and lasix 40 daily. no NSAID reported. Currently both meds on hold and getting ivf. ROS--as detailed above. Otherwise 12 systems reviewed and negative Physical Exam Physical Exam: General Appearance: No distress, obese, pleasant, conversing easily Head: normocephalic, atraumatic Neck: Supple. No JVD Respiratory: normal respiratory effort, lungs clear to auscultation, no wheeze, rales, rhonchi. No accessory muscle use Cardiovascular: regular rate, rhythm,no BLE edema but does have some Chronic Skin changes Abdomen/GI: soft, nontender, Neurologic: PERRL, EOMI, accommodation nl, moves all extremities Normal speech Psychiatric: AAox 3, euthymic affect Skin: no rashes, normal color, warm/dry Allergies Allergy/AdvReac Type Severity Reaction Status Date / Time penicillin G Allergy Intermediate HIVES Verified 09/04/23 19:15 codeine AdvReac Intermediate VOMITING Verified 09/04/23 19:15 hydrocodone AdvReac Intermediate Vomiting Verified 09/04/23 19:15 Home Medications Medication Instructions Recorded Confirmed Type atorvastatin 20 mg tablet 20 mg PO QAM 03/27/21 10/12/23 History bupropion HCl 100 mg tablet,12 hr 100 mg PO QAM 03/27/21 10/12/23 History sustained-release bupropion HCl 150 mg tablet,12 hr 150 mg PO QAM 03/27/21 10/12/23 History sustained-release cyanocobalamin (vitamin B-12) 1,000 mcg PO QAM 03/27/21 10/12/23 History 1,000 mcg tablet fluoxetine 60 mg tablet 60 mg PO QAM 03/27/21 10/12/23 History losartan 100 mg tablet 25 mg PO QAM 03/27/21 10/12/23 History levothyroxine 50 mcg tablet 50 mcg PO QAM 08/13/22 10/12/23 History famotidine 20 mg tablet (Pepcid) 20 mg PO DAILY 09/18/22 10/12/23 History insulin degludec 100 19 unit subcut DAILY 01/30/23 10/12/23 History unit-liraglutide 3.6 mg/mL(3 mL) subcutaneous pen (Xultophy 100/3.6) mirabegron 50 mg tablet,extended 50 mg PO QAM 01/30/23 10/12/23 History release 24 hr (Myrbetriq) furosemide 40 mg tablet 40 mg PO DAILY 08/13/23 10/12/23 History apixaban 5 mg tablet (Eliquis) 5 mg PO BID #60 tabs 08/14/23 10/12/23 Rx cholecalciferol (vitamin D3) 50 50 mcg PO DAILY 09/04/23 10/12/23 History mcg (2,000 unit) tablet (Vitamin D3) Patient History Medical History Chronic cough 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, 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 Hypothyroidism Myasthenia gravis "EFFECTS ONLY MY VOCAL CORDS" Arthritis Stress incontinence in female GERD (gastroesophageal reflux disease) Hx of cancer of endometrium Idiopathic hypersomnia ADHD Depression Peripheral neuropathy Hx of migraines Irregular heart beats NO CARDS Hx of sleep apnea NO DEVICE Chronic obstructive pulmonary disease H/O Surgical History History of surgery lymph node removed from forehead (benign) Hx of cataract extraction right/left History of esophagogastroduodenoscopy (EGD) H/O colonoscopy with polypectomy H/O total hysterectomy History of tooth extraction Nausea and vomiting after administration of anesthetic agent Family History Other No family history of adverse response to anesthesia Social History Smoking Status: Former smoker Tobacco Type: Cigarettes Smoking End Date: 1990; Second Hand Exposure: Yes (as a small child); Do You Dip or Chew Tobacco: No; Hx Alcohol Use: Yes Alcohol type: wine Hx Substance Use: No Preferred Language: Dutch Communication Ability: Effective 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 Beliefs That Will Affect Care: None Current Living Situation: Alone Feels Safe at Home: Yes Safety Concerns: Feels Safe At This Time Assistive Devices: Cane, Crutches and Walker Results & Data Vital Signs (Past 12 Hours) Vital Signs Temp Pulse Pulse Resp BP BP Pulse Ox 10/14/23 08:55 73 10/14/23 08:01 36.4 C L 74 19 146/80 H 96 10/14/23 07:52 72 10/14/23 02:27 36.6 C 69 18 122/67 97 10/13/23 23:47 79 10/13/23 23:01 36.3 C L 75 18 107/64 94 10/13/23 22:30 O2 Del Method 10/14/23 08:55 10/14/23 08:01 Room Air 10/14/23 07:52 10/14/23 02:27 Room Air 10/13/23 23:47 10/13/23 23:01 Room Air 10/13/23 22:30 Room Air Laboratory Results CBC, renal panel and urine and blood C/s reviewed. Diagnostic Findings CT abdomen reviewed.----There are few small bilateral renal calculi with the largest on the right measuring 5 mm. No ureteral calculi. No hydronephrosis. Mild bilateral perinephric edema is again noted. (2) Hematoma of right iliopsoas muscle Encounter type: initial encounter Qualified Code(s): S70.11XA - Contusion of right thigh, initial encounter
[2023-10-15 02:19] LABS: Urine Chloride < 15 mmol/L; Urine Potassium 29.9 mmol/L; Urine Sodium 15 mmol/L
[2023-10-15 06:31] LABS: Basophils # (auto) 0.05 K/uL (0.00-0.20); Basophils % (auto) 0.5 %; Eosinophils # (auto) 0.14 K/uL (0.00-0.50); Eosinophils % (auto) 1.4 %; Hematocrit (blood only) 30.8 % (37.0-47.0); Hemoglobin 9.7 g/dl (12.0-16.0); Immature Granulocytes # (auto) 0.06 K/uL (0.01-0.20); Immature Granulocytes % (auto) 0.6 %; Lymphocytes # (auto) 1.47 K/uL (1.20-3.40); Lymphocytes % (auto) 14.2 %; Mean Corpuscular Hemoglobin 28.6 pg (25.0-34.0); Mean Corpuscular Hgb Conc 31.5 g/dL (32.0-36.0); Mean Corpuscular Volume 90.9 fL (80.0-100.0); Mean Platelet Volume 10.3 fL (9.4-12.4); Monocytes % (auto) 5.8 %; Neutrophils # (auto) 8.03 K/uL (1.40-6.50); Neutrophils % (auto) 77.5 %; Platelet Count 306 K/uL (130-400); RDW Coefficient of Variation 12.3 % (11.5-14.5); RDW Standard Deviation 40.5 fL (36.4-46.3); Red Blood Count 3.39 M/uL (4.20-5.40); White Blood Count 10.35 K/ul (4.8-10.8)
[2023-10-15 06:48] LABS: BUN Creatinine Ratio 31.6 (10-20); Calcium 8.9 mg/dl (8.6-10.3); Creatinine Clr Calc Pharmacy 43.5 ml/min; Est GFR (African American) 39.8 ml/min; Est GFR (Non-African American) 34.4 ml/min; Potassium 4.7 mmol/L (3.5-5.1)
--- NOTE | 2023-10-15 10:03 | Nephrology Progress Note ---
Date of Service October 15, 2023 Assessment & Plan Admission and Anticipated Discharge Date Admission Date: October 12, 2023 Subjective Assessment & Plan (1) JOHN (acute kidney injury): Non oliguric JOHN sec to hemodynamic Issue in the setting of Acute bleed, recent UTI/bactrim/Abx, Poor PO intake and Concomitant use of Lasix and losartan in this situation. Creat went up yesterday but now trending. creat 1.5 now. Can stop IVF now Agree with holding Lasix and losartan for now--but restart in few days-maybe from next week. CT abdomen--No hydronephrosis. urine sediment was very bland--neg protein and neg Blood--this is reassuring as more serious Causes of JOHN will have more active sediment. (2) Hematoma of right iliopsoas muscle: Note from gen surg reviewed. Seems no active /severe Bleed. Hgb holding steady. (3) Hypertension: BP somewhat high. Currently Losartan and Lasix on hold given john. Most recent BP of 146/72 is acceptable for Current situation. Stop IVF now. Continue to hold losartan and lasix for now with eventual plan to restart S--feels better.. Good BP. Labs better. On IVF Physical Exam Physical Exam: General Appearance: No distress, obese, pleasant, conversing easily Head: normocephalic, atraumatic Neck: Supple. No JVD Respiratory: normal respiratory effort, lungs clear to auscultation, no wheeze, rales, rhonchi. No accessory muscle use Cardiovascular: regular rate, rhythm,no BLE edema but does have some Chronic Skin changes Abdomen/GI: soft, nontender, Neurologic: PERRL, EOMI, accommodation nl, moves all extremities Normal speech Psychiatric: AAox 3, euthymic affect Skin: no rashes, normal color, warm/dry Results & Data Vital Signs (Past 12 Hours) Vital Signs Temp Pulse Pulse Resp BP Pulse Ox O2 Del Method 10/15/23 07:26 36.6 C 82 18 146/72 H 96 Room Air 10/15/23 07:26 74 10/15/23 03:00 36.6 C 79 16 143/66 H 97 Room Air 10/14/23 22:11 36.4 C L 82 17 120/74 95 Room Air
[2023-10-15] MEDS: METOPROLOL TARTRATE 25 MG TAB PO SCH (15:31)
[2023-10-15] MEDS: ADVANCED PROBIOTIC 625 MG CAPSULE PO SCH (15:31)
[2023-10-15] MEDS: LACTULOSE SYRUP 20 GM/30 ML UDC PO ONE (15:31)
--- NOTE | 2023-10-15 15:56 | Cardiology Consultation ---
Date of Consultation October 15, 2023 Assessment & Plan (1) Atrial fibrillation with RVR: (2) Hematoma of right iliopsoas muscle: (3) JOHN (acute kidney injury): Plan Patient admitted several days ago with acute right groin pain, diagnosed with hematoma of the right iliopsoas muscle. No trauma. Spontaneous bleed Eliquis on hold/contraindicated. Mild anemia persists but improving at 9.7 . This afternoon, patient developed recurrent afib RVR. Rates currently in the 110-120 range. Mildly symptomatic. EKG ordered and reviewed. Afib RVR. No acute ischemic changes. Stable QT/QTc at 334/455 ms LFT's normal. TSH normal in August 2023 - recheck in AM Recheck magnesium in AM Start IV amiodarone with bolus and gtt. Continue low dose metoprolol 12.5 mg BID anticoagulation contraindicated currently. Hospitalist contacted and patient to be transferred to PCU bed for IV amioda diomedes. Repeat EKG in AM Consider future Watchman device. Nephrology notes reviewed. Lasix and losartan on hold. IV fluids to be stopped. Will be discontinued on transfer Case discussed with Dr. Hickey. I spent a total of 55 minutes on the date of service in preparation, delivery, and documentation of the care provided to this patient, excluding any time spent in the performance of separately billed services. Juju Silva PA-C Department of Cardiology, [facility] This chart was completed in part utilizing Speech Voice Recognition Software. Grammatical errors, random word insertions, pronoun errors, and incomplete sentences are an occasional consequence of this system due to software limitations, ambient noise, and hardware issues. Any formal questions or concerns about the content, text, or information contained within the body of this dictation should be directly addressed to the provider for clarification. Supervising Physician Co-Signing Physician Notes Attending attestation. I have personally performed a history and physical examination on the patient. I have reviewed the advance practitioner's documentation, and I agree with, and take responsibility for the plan of care. 68-year-old female admitted with spontaneous right iliopsoas hematoma. Patient anticoagulated due to history of paroxysmal atrial fibrillation. Sinus rhythm on presentation, however, converted to atrial fibrillation with rapid ventricular response earlier today. Recommend addition of IV amiodarone. Transition to oral amiodarone 200 mg twice daily if patient converts to normal sinus rhythm. Consider referral for Watchman device implantation as outpatient. I spent a total of 30 minutes on the date of service in preparation, delivery, and documentation of the care provided to this patient, excluding any time spent in the performance of separately billed services. History of Present Illness Reason for Consultation: Afib RVR Requesting Physician: Dr. Byrd Attending Physician: Dr. Hickey History of Present Illness Patient is a 68 year old female who was admitted to [facility] on 10/11 with complaints of severe groin pain. Diagnosed with acute hematoma of the right iliopsoas muscle, spontaneous. No trauma. Small amount of right retroperitoneal hemorrhage also noted. Eliquis stopped. During admission she also developed JOHN possibly due to recent bactrim use, poor PO intake. Lasix and losartan held. Nephrology following. Patient was in NSR upon admission. Other history HTN, HLD, CATHERINE, DM Type 2, Hypothyroidism, depression, ADHD, IBS, chronic anemia, Vitamin b12 deficiency, Obesity and recent hospitalization for new onset atrial fibrillation dating back to 08/14/2023 in the setting of an acute UTI. She converted to NSR and was treated wt Eliquis and low dose metoprolol. Re-admitted in August 2023 wiht generalized weakness. Toprol stopped due to concerns regarding mild bradycardia and fatigue. Patient underwent outpatient ZIO monitor without recurrent arrhythmias. Earlier today, around 2:30 PM patient developed recurrent afib RVR. She was restarted on low dose metoprolol 12.5 mg BID. Eliquis still on hold. Still having groin pain with movement. Currently patient feeling palpitations and mild SOB. Mild atypical chest pain noted. ongoing groin pain noted with minimal movement. Allergies Allergy/AdvReac Type Severity Reaction Status Date / Time penicillin G Allergy Intermediate HIVES Verified 09/04/23 19:15 codeine AdvReac Intermediate VOMITING Verified 09/04/23 19:15 hydrocodone AdvReac Intermediate Vomiting Verified 09/04/23 19:15 Home Medications Medication Instructions Recorded Confirmed Type atorvastatin 20 mg tablet 20 mg PO QAM 03/27/21 10/12/23 History bupropion HCl 100 mg tablet,12 hr 100 mg PO QAM 03/27/21 10/12/23 History sustained-release bupropion HCl 150 mg tablet,12 hr 150 mg PO QAM 03/27/21 10/12/23 History sustained-release cyanocobalamin (vitamin B-12) 1,000 mcg PO QAM 03/27/21 10/12/23 History 1,000 mcg tablet fluoxetine 60 mg tablet 60 mg PO QAM 03/27/21 10/12/23 History losartan 100 mg tablet 25 mg PO QAM 03/27/21 10/12/23 History levothyroxine 50 mcg tablet 50 mcg PO QAM 08/13/22 10/12/23 History famotidine 20 mg tablet (Pepcid) 20 mg PO DAILY 09/18/22 10/12/23 History insulin degludec 100 19 unit subcut DAILY 01/30/23 10/12/23 History unit-liraglutide 3.6 mg/mL(3 mL) subcutaneous pen (Xultophy 100/3.6) mirabegron 50 mg tablet,extended 50 mg PO QAM 01/30/23 10/12/23 History release 24 hr (Myrbetriq) furosemide 40 mg tablet 40 mg PO DAILY 08/13/23 10/12/23 History apixaban 5 mg tablet (Eliquis) 5 mg PO BID #60 tabs 08/14/23 10/12/23 Rx cholecalciferol (vitamin D3) 50 50 mcg PO DAILY 09/04/23 10/12/23 History mcg (2,000 unit) tablet (Vitamin D3) Patient History Medical History Chronic cough 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, 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 Hypothyroidism Myasthenia gravis "EFFECTS ONLY MY VOCAL CORDS" Arthritis Stress incontinence in female GERD (gastroesophageal reflux disease) Hx of cancer of endometrium Idiopathic hypersomnia ADHD Depression Peripheral neuropathy Hx of migraines Irregular heart beats NO CARDS Hx of sleep apnea NO DEVICE Chronic obstructive pulmonary disease H/O Surgical History History of surgery lymph node removed from forehead (benign) Hx of cataract extraction right/left History of esophagogastroduodenoscopy (EGD) H/O colonoscopy with polypectomy H/O total hysterectomy History of tooth extraction Nausea and vomiting after administration of anesthetic agent Family History Other No family history of adverse response to anesthesia Social History Smoking Status: Former smoker Tobacco Type: Cigarettes Smoking End Date: 1990; Second Hand Exposure: Yes (as a small child); Do You Dip or Chew Tobacco: No; Hx Alcohol Use: Yes Alcohol type: wine Hx Substance Use: No Preferred Language: Tunisian Communication Ability: Effective Backpackers Manager Required: No Beliefs That Will Affect Care: None Current Living Situation: Alone Feels Safe at Home: Yes Safety Concerns: Feels Safe At This Time Assistive Devices: Cane, Crutches and Walker Review of Systems Review of Systems: All systems reviewed & are unremarkable except as noted in HPI & below Physical Exam 2 Constitutional: + morbidly obese; no acute distress Neck: + thick neck Respiratory: normal respiratory effort Cardiovascular: Rate/Rhythm: + tachycardic and + irregularly irregular Heart Sounds: no murmur Vessels: no JVD Extremities: + edema (trace 1+ edema) Gastrointestinal (Abdomen): normal bowel sounds, soft, nontender, no hepatosplenomegaly Neurologic: PERRL, EOMI, accommodation nl, no face palsy, no dysarthria Results & Data Vital Signs (Past 12 Hours) Vital Signs Temp Pulse Pulse Resp BP Pulse Ox Pulse Ox 10/15/23 15:36 36.6 C 118 H 20 110/59 L 94 10/15/23 15:11 121 H 10/15/23 15:10 97 10/15/23 10:49 36.3 C L 74 18 152/79 H 97 10/15/23 09:30 10/15/23 07:26 36.6 C 82 18 146/72 H 96 10/15/23 07:26 74 O2 Del Method O2 Del Method 10/15/23 15:36 Room Air 10/15/23 15:11 10/15/23 15:10 Room Air 10/15/23 10:49 Room Air 10/15/23 09:30 Room Air 10/15/23 07:26 Room Air 10/15/23 07:26 Laboratory Results CBC 10/15/23 Range/Units 05:45 WBC 10.35 (4.8-10.8) K/ul RBC 3.39 L (4.20-5.40) M/uL Hgb 9.7 L (12.0-16.0) g/dl Hct 30.8 L (37.0-47.0) % Plt Count 306 (130-400) K/uL Neut # (Auto) 8.03 H (1.40-6.50) K/uL Lymph # (Auto) 1.47 (1.20-3.40) K/uL [place]tinger # (Auto) 0.60 H (0.11-0.59) K/uL Eos # (Auto) 0.14 (0.00-0.50) K/uL Baso # (Auto) 0.05 (0.00-0.20) K/uL Comprehensive Metabolic Panel 10/15/23 Range/Units 05:45 Sodium 135 L (136-145) mmol/L Potassium 4.7 (3.5-5.1) mmol/L Chloride 100 (98-107) mmol/L Carbon Dioxide 27 (21-32) mmol/L BUN 48 H (6-23) mg/dl Creatinine 1.52 H D (0.6-1.2) mg/dl Glucose 166 H (70-99(Fasting)) mg/dl Calcium 8.9 (8.6-10.3) mg/dl Intake and Output 10/15/23 10/15/23 10/15/23 06:59 14:59 22:59 Intake Total 370 / 2145 1410 / 1410 Balance 370 / 2145 1410 / 1410 Intake: IV 1050 / 1050 Lactated Ringer's 1,000 ml @ 80 1000 / 1000 mls/hr IV .[id number] [facility] Rx#: [id number] cefTRIAXone SODIUM 2,000 mg In 50 / 50 50 ml @ 100 mls/hr IV Q24H [facility] Rx#:[id number] Oral 370 / 1095 360 / 360 Other: # Unmeasured Voids 3 2 Weight 124.9 kg Diagnostic Findings Telemetry reviewed: Afib RVR with rates currently ranging 110-120's. Converted from NSR to atrial fibrillation around 2:30 PM this afternoon (10/14) EKG 10/15/23: Afib with RVR at 112 bmp No acute ischemic changes Low voltage QRS QT/QTc at 334/455 ms Prior outside data: ZIO report reviewed from August 2023: CONCLUSIONS: Preliminary Findings Prepared by Radha Isidro, MALICK 10/07/23 Patient had a min HR of 66 bpm, max HR of 207 bpm, and avg HR of 80 bpm. Predominant underlying rhythm was Sinus Rhythm. 35 Supraventricular Tachycardia runs occurred, the run with the fastest interval lasting 7 beats with a max rate of 207 bpm, the longest lasting 18 beats with an avg rate of 162 bpm. Isolated SVEs were rare (<1.0%), SVE Couplets were rare (<1.0%), and SVE Triplets were rare (<1.0%). Isolated VEs were rare (<1.0%), and no VE Couplets or VE Triplets were present. Agree with Preliminary Findings Echo report reviewed from July 2023 admission: Normal LV systolic function with EF at 60-65% Mild LVH LA is mildly dilated Mild mitral calcification Aortic valve sclerosis without significant valvular stenosis Medications Administered Current Inpatient Medications Acetaminophen (Acetaminophen 500 Mg Tab) 1,000 mg PO Q8H [facility] Stop: 11/11/23 15:59 Last Admin: 10/15/23 09:27 Dose: 1,000 mg Atorvastatin Calcium (Atorvastatin 20 Mg Tab) 20 mg PO QAM [facility] Stop: 11/12/23 08:59 Last Admin: 10/15/23 09:27 Dose: 20 mg Bupropion HCl (Bupropion Sr 150 Mg Tabcr) 150 mg PO QAM [facility] Stop: 11/12/23 08:59 Last Admin: 10/15/23 09:28 Dose: 150 mg Bupropion HCl (Bupropion Sr 100 Mg Tabcr) 100 mg PO QAM [facility] Stop: 11/12/23 08:59 Last Admin: 10/15/23 09:28 Dose: 100 mg Cyanocobalamin (Cyanocobalamin (B-12) 500 Mcg Tablet) 1,000 mcg PO QAM [facility] Stop: 11/12/23 08:59 Last Admin: 10/15/23 09:27 Dose: 1,000 mcg Dextrose (Dextrose 50% 50 Ml Syringe) 25 - 50 ml IV UD PRN; Protocol PRN Reason: Hypoglycemia Protocol Stop: 11/11/23 15:12 Famotidine (Famotidine 20 Mg Tab) 20 mg PO DAILY [facility] Stop: 11/12/23 08:59 Last Admin: 10/15/23 09:28 Dose: 20 mg Fluoxetine HCl (Fluoxetine Hcl 20 Mg Cap) 60 mg PO QAM [facility] Stop: 11/12/23 08:59 Last Admin: 10/15/23 09:27 Dose: 60 mg Glucagon (Glucagon For Inj 1 Mg Vial) 1 mg SQ UD PRN; Protocol PRN Reason: Hypoglycemia Protocol Stop: 11/11/23 15:12 Glucose (Glucose 40% Gel 15 Gm Tube) 15 - 30 gm PO UD PRN; Protocol PRN Reason: Hypoglycemia Protocol Stop: 11/11/23 15:12 Glucose (Glucose 10 Tab/Tube) 4 - 8 tab PO UD PRN; Protocol PRN Reason: Hypoglycemia Treatment Stop: 11/11/23 15:12 Ceftriaxone Sodium (Rocephin) 2,000 mg in 50 mls @ 100 mls/hr IV Q24H [facility] Stop: 10/18/23 14:29 Last Infusion: 10/15/23 14:32 Dose: Infused Lactated Ringer's (Lr) 1,000 mls @ 80 mls/hr IV .[id number] [facility] Stop: 11/13/23 07:59 Last Admin: 10/15/23 09:41 Dose: 80 mls/hr Insulin Aspart (Insulin Aspart Per Unit Charge) 0 units SC ACHS [facility] Stop: 11/11/23 16:29 Last Admin: 10/15/23 13:09 Dose: 6 units Insulin Glargine (Lantus Per Unit Charge) 5 units SC BID [facility] Stop: 11/11/23 20:59 Last Admin: 10/15/23 09:41 Dose: 5 units Lactobacillus Acidophilus (Advanced Probiotic 625 Mg Capsule) 1,250 mg PO DAILY [facility] Stop: 11/14/23 14:29 Last Admin: 10/15/23 15:31 Dose: 1,250 mg Levothyroxine Sodium (Levothyroxine Sodium 50 Mcg Tablet) 50 mcg PO DAILYBB [facility] Stop: 11/12/23 06:29 Last Admin: 10/15/23 06:01 Dose: 50 mcg Menthol (Cough Drop (Sugar Free) Randy 24 Randy/1 Box) 1 randy BUCCAL Q6H PRN PRN Reason: Sore Throat Stop: 11/13/23 06:13 Last Admin: 10/14/23 06:27 Dose: 1 randy Metoprolol Tartrate (Metoprolol Tartrate 25 Mg Tab) 12.5 mg PO BID [facility] Stop: 11/14/23 14:59 Last Admin: 10/15/23 15:31 Dose: 12.5 mg Miscellaneous (Carbohydrates For Hypoglycemia ) 15 - 30 gm PO UD PRN PRN Reason: Hypoglycemia Protocol Stop: 11/11/23 15:12 Nystatin (Nystatin Powder 15gm Btl) 1 appln EXT BID [facility] Stop: 11/13/23 08:59 Last Admin: 10/15/23 09:29 Dose: 1 appln Ondansetron HCl (Ondansetron Inj 2 Mg/Ml 2 Ml Vial) 4 mg IV Q6H PRN PRN Reason: Nausea Stop: 11/11/23 15:56 Last Admin: 10/14/23 21:58 Dose: 4 mg Oxycodone HCl (Oxycodone Hcl Ir 5 Mg Tab (Immediate Release)) 2.5 mg PO Q6H PRN PRN Reason: Mod-Sev Pain (Scale 4-10) Stop: 10/26/23 15:12 Last Admin: 10/15/23 06:01 Dose: 2.5 mg Polyethylene Glycol (Polyethylene (Miralax) 17 Gm Pack) 17 gm PO DAILY PRN PRN Reason: Constipation Stop: 11/11/23 15:56 Last Admin: 10/15/23 09:41 Dose: 17 gm Vibegron (Vibegron 75 Mg Tab) 75 mg PO QAM [facility] Stop: 11/12/23 08:59 Last Admin: 10/15/23 09:28 Dose: 75 mg Vitamin D (Cholecalciferol 25 Mcg (1000 Units) Tab) 50 mcg PO DAILY [facility] Stop: 11/12/23 08:59 Last Admin: 10/15/23 09:27 Dose: 50 mcg (2) Hematoma of right iliopsoas muscle Encounter type: initial encounter Qualified Code(s): S70.11XA - Contusion of right thigh, initial encounter
[2023-10-15] MEDS ORDERED: STAT IV Infusion **Titration per Protocol STA (16:25)
[2023-10-15] MEDS ORDERED: AMIODARONE IV BOLUS & DRIP IV STA (16:25)
[2023-10-15] MEDS ORDERED: 0.2 MICRON FILTER SET 1 EACH IV STA (16:25)
--- NOTE | 2023-10-15 17:19 | Oncology Consultation ---
Date of Consultation October 15, 2023 Assessment & Plan (1) Hematoma of right iliopsoas muscle: given that the patient was anticoagulated because of a cardiovascular diagnosis which is paroxysmal A-fib, I cannot for out against recommend anticoagulation at this point unless and until cardiology agrees. The patient had a recent bleeding, ideally would like to continue to hold anticoagulation to prevent further bleeding. The recommendation to institute anticoagulation would strictly be based on cardiology's opinion. (2) Paroxysmal atrial fibrillation: Treatment per our cardiology colleagues. (3) Anemia: The patient has anemia, hemoglobin is 8.9 g/dL. this is a result of the recent bleeding. Would continue to trend H&H to make sure that the patient's hemoglobin current does not continue to drop. Would recommend blood transfusion if the hemoglobin drops below 7. Plan At this point hematology would not have any further recommendations. We will continue to make expert recommendations if asked however based on the current presentation most of the treatment will be guided by our hospital internal medicine colleagues as well as the cardiology colleagues. Thank you for this interesting hematological consult. History of Present Illness Reason for Consultation: History of A-fib with RVR recommendations for anticoagulation Attending Physician: Geoffrey Byrd MD History of Present Illness the patient is a very pleasant 68-year-old woman with a past history of atrial fibrillation, diagnosed in July 2023, placed on Eliquis, PSVT, hypertension, obstructive sleep apnea, type 2 diabetes, hypothyroidism, mood disorder, myasthenia gravis who initially presented to [facility] with worsening right lower extremity/groin pain for 3 days. Initially she was diagnosed with atrial fibrillation earlier this year. On diagnosis the patient had a CT scan of the abdomen pelvis performed on 10/12/2023 which revealed asymmetric thickening and heterogeneous appearance throughout the majority of the right iliopsoas muscle consistent with a intramuscular hematoma. There was an associated small amount of right retroperitoneal hemorrhage. Hematology has been consulted to assist in management of this patient who has needs for anticoagulation but also had a bleeding. Allergies Allergy/AdvReac Type Severity Reaction Status Date / Time penicillin G Allergy Intermediate HIVES Verified 09/04/23 19:15 codeine AdvReac Intermediate VOMITING Verified 09/04/23 19:15 hydrocodone AdvReac Intermediate Vomiting Verified 09/04/23 19:15 Home Medications Medication Instructions Recorded Confirmed Type atorvastatin 20 mg tablet 20 mg PO QAM 03/27/21 10/12/23 History bupropion HCl 100 mg tablet,12 hr 100 mg PO QAM 03/27/21 10/12/23 History sustained-release bupropion HCl 150 mg tablet,12 hr 150 mg PO QAM 03/27/21 10/12/23 History sustained-release cyanocobalamin (vitamin B-12) 1,000 mcg PO QAM 03/27/21 10/12/23 History 1,000 mcg tablet fluoxetine 60 mg tablet 60 mg PO QAM 03/27/21 10/12/23 History losartan 100 mg tablet 25 mg PO QAM 03/27/21 10/12/23 History levothyroxine 50 mcg tablet 50 mcg PO QAM 08/13/22 10/12/23 History famotidine 20 mg tablet (Pepcid) 20 mg PO DAILY 09/18/22 10/12/23 History insulin degludec 100 19 unit subcut DAILY 01/30/23 10/12/23 History unit-liraglutide 3.6 mg/mL(3 mL) subcutaneous pen (Xultophy 100/3.6) mirabegron 50 mg tablet,extended 50 mg PO QAM 01/30/23 10/12/23 History release 24 hr (Myrbetriq) furosemide 40 mg tablet 40 mg PO DAILY 08/13/23 10/12/23 History apixaban 5 mg tablet (Eliquis) 5 mg PO BID #60 tabs 08/14/23 10/12/23 Rx cholecalciferol (vitamin D3) 50 50 mcg PO DAILY 09/04/23 10/12/23 History mcg (2,000 unit) tablet (Vitamin D3) Patient History Medical History Chronic cough 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, 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 Hypothyroidism Myasthenia gravis "EFFECTS ONLY MY VOCAL CORDS" Arthritis Stress incontinence in female GERD (gastroesophageal reflux disease) Hx of cancer of endometrium Idiopathic hypersomnia ADHD Depression Peripheral neuropathy Hx of migraines Irregular heart beats NO CARDS Hx of sleep apnea NO DEVICE Chronic obstructive pulmonary disease H/O Surgical History History of surgery lymph node removed from forehead (benign) Hx of cataract extraction right/left History of esophagogastroduodenoscopy (EGD) H/O colonoscopy with polypectomy H/O total hysterectomy History of tooth extraction Nausea and vomiting after administration of anesthetic agent Family History Other No family history of adverse response to anesthesia Social History Smoking Status: Former smoker Tobacco Type: Cigarettes Smoking End Date: 1990; Second Hand Exposure: Yes (as a small child); Do You Dip or Chew Tobacco: No; Hx Alcohol Use: Yes Alcohol type: wine Hx Substance Use: No Preferred Language: Spanish Communication Ability: Effective Art Therapist Required: No Beliefs That Will Affect Care: None Current Living Situation: Alone Feels Safe at Home: Yes Safety Concerns: Feels Safe At This Time Assistive Devices: Cane, Crutches and Walker Review of Systems Review of Systems: Right groin pain, fatigue Constitutional: as per Subjective / HPI Eyes: as per Subjective / HPI Ear, Nose, Mouth, Throat: as per Subjective / HPI Respiratory: as per Subjective / HPI Cardiovascular: as per Subjective / HPI Gastrointestinal: as per Subjective / HPI Genitourinary: as per Subjective / HPI Musculoskeletal: as per Subjective / HPI Integumentary: as per Subjective / HPI Neurologic: as per Subjective / HPI Psychiatric: as per Subjective / HPI Endocrine: as per Subjective / HPI Hematologic / Lymphatic: as per Subjective / HPI Allergy / Immunological: as per Subjective / HPI Physical Exam Constitutional: WD/WN, vitals as above Eyes: PERRL, conjunctivae normal, anicteric sclerae ENMT: external ear and nose normal, oropharynx normal Neck: trachea midline, no thyromegaly Respiratory: normal respiratory effort, lungs clear to auscultation Cardiovascular: RRR, no murmur, no edema Gastrointestinal (Abdomen): normal bowel sounds, soft, nontender, no hepatosplenomegaly Musculoskeletal: no cyanosis or clubbing, extremities motor strength 5/5 Skin: no rashes, warm and dry Neurologic: patellar DTR's 2+ bilat, sensation intact Psychiatric: A+Ox3, euthymic affect Genitourinary: no vaginal lesions, no adnexal mass Lymphatic: no cervical or axillary lymphadenopathy Results & Data Vital Signs (Past 12 Hours) Vital Signs Temp Pulse Pulse Resp BP Pulse Ox Pulse Ox 10/15/23 15:36 36.6 C 118 H 20 110/59 L 94 10/15/23 15:11 121 H 10/15/23 15:10 97 10/15/23 10:49 36.3 C L 74 18 152/79 H 97 10/15/23 09:30 10/15/23 07:26 36.6 C 82 18 146/72 H 96 10/15/23 07:26 74 O2 Del Method O2 Del Method 10/15/23 15:36 Room Air 10/15/23 15:11 10/15/23 15:10 Room Air 10/15/23 10:49 Room Air 10/15/23 09:30 Room Air 10/15/23 07:26 Room Air 10/15/23 07:26 (1) Hematoma of right iliopsoas muscle Encounter type: initial encounter Qualified Code(s): S70.11XA - Contusion of right thigh, initial encounter
[2023-10-15] MEDS: AMIODARONE / D5W 150 MG/100 ML BAG IV STA (18:35)
[2023-10-15] MEDS: AMIODARONE / D5W 360 MG/200 ML BAG IV ONE (18:43)
--- NOTE | 2023-10-15 18:50 | Hospitalist Progress Note ---
Date of Service October 15, 2023 Assessment & Plan (1) Hematoma of right iliopsoas muscle: Plan: Plan Per Previous hospitalist service With Addendum: This is a 68yo F with a PMH of HFpEF (EF 60 to 65% TTE 2023), atrial fibrillation diagnosed in July 2023 on Eliquis, PSVT, hypertension, CATHERINE on CPAP, type 2 diabetes, hypothyroidism, mood disorder, myasthenia gravis affecting vocal cords as per records and other medical problems listed below who presents from home with worsening right-sided groin pain x 3 days and was found to have intramuscular hematoma of R iliopsoas. R groin pain Hematoma of R iliopsoas muscle Acute blood loss anemia Three days of severe R groin pain in the setting of Eliquis use for A fib CT abd/pelvis with asymmetric thickening and a heterogeneous appearance throughout the majority of the right iliopsoas muscle consistent with an intramuscular hematoma. There is an associated small amount of right retroperitoneal hemorrhage Denies any falls or known trauma to area - ? spontaneous hematoma Hb decreased from baseline of 11 to 9 Eliquis is currently on hold. CBC daily Discussed with patient that she is at increased risk of Stroke give her history of A.fib. She verbalized understanding and agrees with holding Eliquis at this time. She will need to follow up with her PCP and Cardiology to discuss regarding resuming Eliquis in the future. Scheduled Tylenol, PRN oxycodone for breakthrough pain Fall precautions, PT/OT evals Hemoglobin stable Will consult meat and poultry inspector for input on when to resume anticoagulation and which agent to utilize Acute kidney injury Cr 1.71 (baseline ~ 1) in setting of poor PO intake, recent Bactrim course and possible related with bleeding Given 1 L NSS in ED Holding home lasix and losartan Obtain urine electrolytes Obtain CK CT abdomen/pelvis didn't hydronephrosis will start LR at 80cc per hour Nephrology consulted for comanagement Creatinine improving to 1.5 DC IV fluids Partially treated UTI Grew Klebsiella pneumonia and Aerococcus urinae with intermediate sensitivity to Bactrim on outpatient 09/30 urine culture Had completed 7 day course Bactrim 10/09, started on Macrobid Will transition to Rocephin for a 3 day course to complete treatment as patient still having dysuria, increased urgency and nausea Blood culture obtained; will follow up on results. Improving Continue ceftriaxone day 3 out of 5 HFpEF, compensated EF 60 to 65% TTE 2023 Appears on dry side hold lasix given JOHN Reassess volume status, repeat BMP in AM Paroxysmal atrial fibrillation Sinus bradycardia and possible tachybradycardia syndrome on previous admission - Toprol held at that time. Patient does not want to resume ZIO monitor as outpatient - results pending Hold Eliquis for now given RLE hematoma as discussed above Admission EKG with NSR, monitor on tele Patient converted to atrial fibrillation RVR today Cardiology service consulted Amiodarone drip started Awaiting hematology recommendations regarding anticoagulation DM II Last HbA1c 6.6 inpatient Basal/bolus insulin per protocol while admitted BSG AC HS Hypertension Holding losartan for now given JOHN as above CATHERINE CPAP HS Hypothyroidism Continue levothyroxine Endometrial cancer S/P surgery Mood disorder Continue home Bupropion, fluoxetine DVT Ppx: Holding Eliquis for now 2/2 hematoma Code status: FULL PCP: Flo Disposition: transfer to PCU Admission and Anticipated Discharge Date Admission Date: October 12, 2023 Subjective Follow-up for iliopsoas hematoma, UTI, etc. Seen resting in bed, comfortable, in good spirits States she continues to feel overall Abdominal/leg pain improving Still having some dysuria but improving Feels lightheaded when getting up and ambulating but seems to be improving Patient reevaluated after a few minutes as twisting press operator was showing atrial fibrillation RVR Patient does report palpitations Review of Systems Review of Systems: all noted and negative except for above Physical Exam Physical Exam: General- oriented x 3, not in distress, speaks in sentences with no effort or accessory muscle use Eyes- anicteric Neck- no JVD Lungs- clear breath sounds bilaterally, no rales/wheezes Heart- tachycardic, irregularly irregular rhythm Abdomen- normal bowel sounds, nondistended, soft, nontender Extremities- no pretibial edema, no calf tenderness Neuro- alert, oriented x 3; no gross focal neurologic deficits Skin- warm & dry Results & Data Results & Data Vital Signs (Past 12 Hours) Vital Signs Temp Pulse Pulse Resp BP BP Pulse Ox 10/15/23 18:30 36.6 C 115 H 20 131/84 93 10/15/23 15:36 36.6 C 118 H 20 110/59 L 94 10/15/23 15:11 121 H 10/15/23 15:10 10/15/23 10:49 36.3 C L 74 18 152/79 H 97 10/15/23 09:30 10/15/23 07:26 36.6 C 82 18 146/72 H 96 10/15/23 07:26 74 Pulse Ox O2 Del Method O2 Del Method 10/15/23 18:30 Room Air 10/15/23 15:36 Room Air 10/15/23 15:11 10/15/23 15:10 97 Room Air 10/15/23 10:49 Room Air 10/15/23 09:30 Room Air 10/15/23 07:26 Room Air 10/15/23 07:26 all noted and reviewed including below (1) Hematoma of right iliopsoas muscle Encounter type: initial encounter Qualified Code(s): S70.11XA - Contusion of right thigh, initial encounter
--- NOTE | 2023-10-15 20:25 | Electrocardiogram Report ---
Test Reason : Blood Pressure : / mmHG Vent. Rate : 112 BPM Atrial Rate : 111 BPM P-R Int : 000 ms QRS Dur : 086 ms QT Int : 334 ms P-R-T Axes : 000 024 054 degrees QTc Int : 455 ms Atrial fibrillation with rapid ventricular response Low voltage QRS Abnormal ECG When compared with ECG of 12-OCT-2023 13:19, Atrial fibrillation has replaced Sinus rhythm Confirmed by James Badillo ([id number]) on 10/15/2023 8:25:15 PM Referred By: REFERRED SELF Confirmed By:James Badillo
[2023-10-15] MEDS: ACETAMINOPHEN 1,000 MG/100 ML VIAL IV STA (21:35)
[2023-10-15] MEDS: AMIODARONE / D5W 360 MG/200 ML BAG IV SCH (22:36)
[2023-10-16 06:48] LABS: Hematocrit (blood only) 28.1 % (37.0-47.0); Hemoglobin 8.9 g/dl (12.0-16.0); Mean Corpuscular Hemoglobin 28.8 pg (25.0-34.0); Mean Corpuscular Hgb Conc 31.7 g/dL (32.0-36.0); Mean Corpuscular Volume 90.9 fL (80.0-100.0); RDW Coefficient of Variation 12.7 % (11.5-14.5); RDW Standard Deviation 41.7 fL (36.4-46.3); Red Blood Count 3.09 M/uL (4.20-5.40); White Blood Count 11.46 K/ul (4.8-10.8)
[2023-10-16 06:49] LABS: Basophils # (auto) 0.06 K/uL (0.00-0.20); Basophils % (auto) 0.5 %; Eosinophils # (auto) 0.14 K/uL (0.00-0.50); Eosinophils % (auto) 1.2 %; Immature Granulocytes # (auto) 0.06 K/uL (0.01-0.20); Immature Granulocytes % (auto) 0.5 %; Lymphocytes % (auto) 21.8 %; Mean Platelet Volume 10.4 fL (9.4-12.4); Monocytes # (auto) 0.81 K/uL (0.11-0.59); Monocytes % (auto) 7.1 %; Neutrophils # (auto) 7.89 K/uL (1.40-6.50); Neutrophils % (auto) 68.9 %; Platelet Count 306 K/uL (130-400)
[2023-10-16 07:10] LABS: BUN Creatinine Ratio 32.8 (10-20); Calcium 8.7 mg/dl (8.6-10.3); Creatinine Clr Calc Pharmacy 52.2 ml/min; Est GFR (Non-African American) 42.3 ml/min; Magnesium 2.3 mg/dl (1.7-2.4); Potassium 4.6 mmol/L (3.5-5.1)
[2023-10-16 07:25] LABS: Thyroid Stimulating Hormone 2.924 uIu/ml (0.300-4.500)
[2023-10-16] MEDS: AMIODARONE 200 MG TAB PO SCH (08:51)
--- NOTE | 2023-10-16 11:13 | Cardiology Progress Note ---
Date of Service October 16, 2023 Assessment & Plan (1) Atrial fibrillation with RVR: (2) Hematoma of right iliopsoas muscle: (3) JOHN (acute kidney injury): Plan 10/15/23: Patient admitted several days ago with acute right groin pain, diagnosed with hematoma of the right iliopsoas muscle. No trauma. Spontaneous bleed Eliquis on hold/contraindicated. Mild anemia persists but improving at 9.7 . This afternoon, patient developed recurrent afib RVR. Rates currently in the 110-120 range. Mildly symptomatic. EKG ordered and reviewed. Afib RVR. No acute ischemic changes. Stable QT/QTc at 334/455 ms LFT's normal. TSH normal in August 2023 - recheck in AM Recheck magnesium in AM Start IV amiodarone with bolus and gtt. Continue low dose metoprolol 12.5 mg BID anticoagulation contraindicated currently. Hospitalist contacted and patient to be transferred to PCU bed for IV am iodarone. Repeat EKG in AM Consider future Watchman device. Nephrology notes reviewed. Lasix and losartan on hold. IV fluids to be stopped. Will be discontinued on transfer 10/15/24: Patient successfully converted to NSR last evening after initiation of IV amiodarone with bolus. She had 3.2 second conversion pause but was asymptomatic. No recurrent pauses or bradycardia. IV amiodarone was stopped last night. EKG this morning with normal sinus and normal QT/QTc intervals. Resume oral amiodarone 200 mg BID Continue metoprolol 12.5 mg BID for now. Although patient reports intolerance to metoprolol after last admission. She had borderline tachybrady and may need future consideration for pacemaker. Currently anticoagulation also contraindicated given iliopsoas hematoma. Hbg is slightly lower today at 8.9. Monitor. No Eliquis/heparin. Consider future Watchman device. Renal function improving Consider resuming lasix and losartan as needed. Case discussed with Dr. Hickey. I spent a total of 40 minutes on the date of service in preparation, delivery, and documentation of the care provided to this patient, excluding any time spent in the performance of separately billed services. Juju Silva PA-C Department of Cardiology, [facility] This chart was completed in part utilizing Speech Voice Recognition Software. Grammatical errors, random word insertions, pronoun errors, and incomplete sentences are an occasional consequence of this system due to software limitations, ambient noise, and hardware issues. Any formal questions or concerns about the content, text, or information contained within the body of this dictation should be directly addressed to the provider for clarification. Admission and Anticipated Discharge Date Admission Date: October 12, 2023 Supervising Physician Co-Signing Physician Notes Attending attestation. I have personally performed a history and physical examination on the patient. I have reviewed the advance practitioner's documentation, and I agree with, and take responsibility for the plan of care. 68-year-old female admitted with spontaneous right iliopsoas hematoma. Chronically anticoagulated due to history of paroxysmal atrial fibrillation. Paroxysmal atrial fibrillation with rapid ventricular response 10/15/2023. Converted to normal sinus rhythm with addition of IV amiodarone. Transition to oral amiodarone 200mg twice daily. Discontinue metoprolol. Consider referral for Watchman device implantation as outpatient. I spent a total of 30 minutes on the date of service in preparation, delivery, and documentation of the care provided to this patient, excluding any time spent in the performance of separately billed services. Subjective Patient resting in bed comfortably. Feeling well. Prior complaints of dyspnea, palpitations, atypical chest pain yesterday, now improved/resolved. Patient converted from afib RVR to NSR around 7:20 PM last evening. She had a 3.2 second conversion pause. Now NSR with HR's in the 60's. Patient is concerned with feeling fatigued on beta grady previously. Review of Systems Review of Systems: All systems reviewed & are unremarkable except as noted in HPI & below Physical Exam Constitutional: + morbidly obese; no acute distress Neck: + thick neck Respiratory: normal respiratory effort Cardiovascular: Rate/Rhythm: regular rate and regular rhythm Heart Sounds: no murmur Vessels: no JVD Extremities: + edema (trace 1+ edema) Gastrointestinal (Abdomen): normal bowel sounds, soft, nontender, no hepatosplenomegaly Neurologic: PERRL, EOMI, accommodation nl, no face palsy, no dysarthria Results & Data Vital Signs (Past 12 Hours) Vital Signs Temp Pulse Pulse Resp BP BP Pulse Ox 10/16/23 10:54 36.5 C 65 18 134/67 97 10/16/23 08:00 62 10/16/23 08:00 10/16/23 07:32 36.5 C 62 18 117/72 96 10/16/23 02:55 36.4 C L 61 18 127/68 96 O2 Del Method 10/16/23 10:54 Room Air 10/16/23 08:00 10/16/23 08:00 Room Air 10/16/23 07:32 Room Air 10/16/23 02:55 Room Air Laboratory Results CBC 10/16/23 Range/Units 06:07 WBC 11.46 H (4.8-10.8) K/ul RBC 3.09 L (4.20-5.40) M/uL Hgb 8.9 L (12.0-16.0) g/dl Hct 28.1 L (37.0-47.0) % Plt Count 306 (130-400) K/uL Neut # (Auto) 7.89 H (1.40-6.50) K/uL Lymph # (Auto) 2.50 (1.20-3.40) K/uL Grimes # (Auto) 0.81 H (0.11-0.59) K/uL Eos # (Auto) 0.14 (0.00-0.50) K/uL Baso # (Auto) 0.06 (0.00-0.20) K/uL Comprehensive Metabolic Panel 10/16/23 Range/Units 06:07 Sodium 137 (136-145) mmol/L Potassium 4.6 (3.5-5.1) mmol/L Chloride 104 (98-107) mmol/L Carbon Dioxide 28 (21-32) mmol/L BUN 42 H (6-23) mg/dl Creatinine 1.28 H (0.6-1.2) mg/dl Glucose 140 H (70-99(Fasting)) mg/dl Calcium 8.7 (8.6-10.3) mg/dl Intake and Output 10/15/23 10/16/23 10/16/23 22:59 06:59 14:59 Intake Total 1440 / 2863.082 13.082 / 2863.082 0 / 0 Output Total 0 / 0 Balance 1440 / 2863.082 13.082 / 2863.082 0 / 0 Intake: IV 1200 / 2263.082 13.082 / 2263.082 0 / 0 Acetaminophen 1,000 mg In 100 100 / 100 ml @ 400 mls/hr IV NOW STA Rx#: [id number] Amiodarone / D5w 150 mg In 100 100 / 100 ml @ 600 mls/hr IV NOW STA Rx#: [id number] Amiodarone / D5w 360 mg In 200 0 / 13.082 13.082 / 13.082 0 / 0 ml @ 0.5 MG/MIN 16.667 mls/hr IV .Q12H AMI Rx#:[id number] Lactated Ringer's 1,000 ml @ 80 1000 / 2000 mls/hr IV .[id number] AMI Rx#: [id number] Oral 240 / 600 Output: Urine Amount (Catheter) 0 / 0 External 0 / 0 Other: Weight 127.1 kg Weight Measurement Method Built in [facility] Diagnostic Findings Telemetry reviewed: Currently NSR in the 60's. She converted from afib RVR to NSR last evening on 10/15/23 at 7:22 PM at which time she had a 3.2 second co nversion pause. EKG this morning: NSR at 61 bmp Low voltage QRS QT/QTc 412/414 ms Medications Administered Current Inpatient Medications Acetaminophen (Acetaminophen 500 Mg Tab) 1,000 mg PO Q8H [facility] Stop: 11/11/23 15:59 Last Admin: 10/16/23 08:51 Dose: 1,000 mg Amiodarone HCl (Amiodarone 200 Mg Tab) 200 mg PO BIDM [facility] Stop: 11/15/23 08:04 Last Admin: 10/16/23 08:51 Dose: 200 mg Atorvastatin Calcium (Atorvastatin 20 Mg Tab) 20 mg PO QAM [facility] Stop: 11/12/23 08:59 Last Admin: 10/16/23 08:42 Dose: 20 mg Bupropion HCl (Bupropion Sr 150 Mg Tabcr) 150 mg PO QAM [facility] Stop: 11/12/23 08:59 Last Admin: 10/16/23 08:42 Dose: 150 mg Bupropion HCl (Bupropion Sr 100 Mg Tabcr) 100 mg PO QAM [facility] Stop: 11/12/23 08:59 Last Admin: 10/16/23 08:41 Dose: 100 mg Cyanocobalamin (Cyanocobalamin (B-12) 500 Mcg Tablet) 1,000 mcg PO QAM [facility] Stop: 11/12/23 08:59 Last Admin: 10/16/23 08:45 Dose: Not Given Dextrose (Dextrose 50% 50 Ml Syringe) 25 - 50 ml IV UD PRN; Protocol PRN Reason: Hypoglycemia Protocol Stop: 11/11/23 15:12 Famotidine (Famotidine 20 Mg Tab) 20 mg PO DAILY [facility]I Stop: 11/12/23 08:59 Last Admin: 10/16/23 08:42 Dose: 20 mg Fluoxetine HCl (Fluoxetine Hcl 20 Mg Cap) 60 mg PO QAM [facility]I Stop: 11/12/23 08:59 Last Admin: 10/16/23 08:41 Dose: 60 mg Glucagon (Glucagon For Inj 1 Mg Vial) 1 mg SQ UD PRN; Protocol PRN Reason: Hypoglycemia Protocol Stop: 11/11/23 15:12 Glucose (Glucose 40% Gel 15 Gm Tube) 15 - 30 gm PO UD PRN; Protocol PRN Reason: Hypoglycemia Protocol Stop: 11/11/23 15:12 Glucose (Glucose 10 Tab/Tube) 4 - 8 tab PO UD PRN; Protocol PRN Reason: Hypoglycemia Treatment Stop: 11/11/23 15:12 Ceftriaxone Sodium (Rocephin) 2,000 mg in 50 mls @ 100 mls/hr IV Q24H [facility] Stop: 10/18/23 14:29 Last Infusion: 10/15/23 14:32 Dose: Infused Insulin Aspart (Insulin Aspart Per Unit Charge) 0 units SC ACHS [facility] Stop: 11/11/23 16:29 Last Admin: 10/16/23 08:39 Dose: 6 units Insulin Glargine (Lantus Per Unit Charge) 5 units SC BID [facility] Stop: 11/11/23 20:59 Last Admin: 10/16/23 08:40 Dose: 5 units Lactobacillus Acidophilus (Advanced Probiotic 625 Mg Capsule) 1,250 mg PO DAILY [facility] Stop: 11/14/23 14:29 Last Admin: 10/16/23 08:42 Dose: 1,250 mg Levothyroxine Sodium (Levothyroxine Sodium 50 Mcg Tablet) 50 mcg PO DAILYBB [facility] Stop: 11/12/23 06:29 Last Admin: 10/16/23 06:08 Dose: 50 mcg Menthol (Cough Drop (Sugar Free) Randy 24 Randy/1 Box) 1 randy BUCCAL Q6H PRN PRN Reason: Sore Throat Stop: 11/13/23 06:13 Last Admin: 10/14/23 06:27 Dose: 1 randy Metoprolol Tartrate (Metoprolol Tartrate 25 Mg Tab) 12.5 mg PO BID [facility] Stop: 11/14/23 14:59 Last Admin: 10/16/23 09:57 Dose: 12.5 mg Miscellaneous (Carbohydrates For Hypoglycemia ) 15 - 30 gm PO UD PRN PRN Reason: Hypoglycemia Protocol Stop: 11/11/23 15:12 Nystatin (Nystatin Powder 15gm Btl) 1 appln EXT BID [facility] Stop: 11/13/23 08:59 Last Admin: 10/16/23 08:46 Dose: 1 appln Ondansetron HCl (Ondansetron Inj 2 Mg/Ml 2 Ml Vial) 4 mg IV Q6H PRN PRN Reason: Nausea Stop: 11/11/23 15:56 Last Admin: 10/15/23 21:33 Dose: 4 mg Oxycodone HCl (Oxycodone Hcl Ir 5 Mg Tab (Immediate Release)) 2.5 mg PO Q6H PRN PRN Reason: Mod-Sev Pain (Scale 4-10) Stop: 10/26/23 15:12 Last Admin: 10/16/23 01:39 Dose: 2.5 mg Polyethylene Glycol (Polyethylene (Miralax) 17 Gm Pack) 17 gm PO DAILY PRN PRN Reason: Constipation Stop: 11/11/23 15:56 Last Admin: 10/15/23 09:41 Dose: 17 gm Vibegron (Vibegron 75 Mg Tab) 75 mg PO QAM [facility] Stop: 11/12/23 08:59 Last Admin: 10/16/23 08:42 Dose: 75 mg Vitamin D (Cholecalciferol 25 Mcg (1000 Units) Tab) 50 mcg PO DAILY [facility] Stop: 11/12/23 08:59 Last Admin: 10/16/23 08:45 Dose: Not Given (2) Hematoma of right iliopsoas muscle Encounter type: initial encounter Qualified Code(s): S70.11XA - Contusion of right thigh, initial encounter
--- NOTE | 2023-10-16 11:39 | Electrocardiogram Report ---
Test Reason : Blood Pressure : / mmHG Vent. Rate : 061 BPM Atrial Rate : 061 BPM P-R Int : 158 ms QRS Dur : 084 ms QT Int : 412 ms P-R-T Axes : 058 029 041 degrees QTc Int : 414 ms Normal sinus rhythm Low voltage QRS Borderline ECG When compared with ECG of 15-OCT-2023 16:11, Sinus rhythm has replaced Atrial fibrillation Vent. rate has decreased BY 51 BPM Confirmed by Pan Biggs ([id number] on 10/16/2023 11:39:24 AM Referred By: REFERRED SELF Confirmed By:Pan Biggs
[2023-10-16] MEDS: LACTULOSE SYRUP 30 GM/45 ML UDP PO STA (14:59)
--- NOTE | 2023-10-16 16:50 | Hospitalist Progress Note ---
Date of Service October 16, 2023 Assessment & Plan (1) Hematoma of right iliopsoas muscle: Plan: Plan Per Previous hospitalist service With Addendum: This is a 68yo F with a PMH of HFpEF (EF 60 to 65% TTE 2023), atrial fibrillation diagnosed in July 2023 on Eliquis, PSVT, hypertension, CATHERINE on CPAP, type 2 diabetes, hypothyroidism, mood disorder, myasthenia gravis affecting vocal cords as per records and other medical problems listed below who presents from home with worsening right-sided groin pain x 3 days and was found to have intramuscular hematoma of R iliopsoas. R groin pain Hematoma of R iliopsoas muscle Acute blood loss anemia Three days of severe R groin pain in the setting of Eliquis use for A fib CT abd/pelvis with asymmetric thickening and a heterogeneous appearance throughout the majority of the right iliopsoas muscle consistent with an intramuscular hematoma. There is an associated small amount of right retroperitoneal hemorrhage Denies any falls or known trauma to area - ? spontaneous hematoma Hb decreased from baseline of 11 to 9 Eliquis is currently on hold. CBC daily Discussed with patient that she is at increased risk of Stroke give her history of A.fib. She verbalized understanding and agrees with holding Eliquis at this time. She will need to follow up with her PCP and Cardiology to discuss regarding resuming Eliquis in the future. Scheduled Tylenol, PRN oxycodone for breakthrough pain Fall precautions, PT/OT evals Hemoglobin stable Will consult tree and shrub worker for input on when to resume anticoagulation and which agent to utilize Acute kidney injury Cr 1.71 (baseline ~ 1) in setting of poor PO intake, recent Bactrim course and possible related with bleeding Given 1 L NSS in ED Holding home lasix and losartan Obtain urine electrolytes Obtain CK CT abdomen/pelvis didn't hydronephrosis will start LR at 80cc per hour Nephrology consulted for comanagement Creatinine improving to 1.2 DC IV fluids Partially treated UTI Grew Klebsiella pneumonia and Aerococcus urinae with intermediate sensitivity to Bactrim on outpatient 09/30 urine culture Had completed 7 day course Bactrim 10/09, started on Macrobid Will transition to Rocephin for a 3 day course to complete treatment as patient still having dysuria, increased urgency and nausea Blood culture obtained; will follow up on results. Improving Continue ceftriaxone day 4 out of 5 HFpEF, compensated EF 60 to 65% TTE 2023 Appears on dry side hold lasix given JOHN Reassess volume status, repeat BMP in AM Paroxysmal atrial fibrillation Sinus bradycardia and possible tachybradycardia syndrome on previous admission - Toprol held at that time. Patient does not want to resume ZIO monitor as outpatient - results pending Hold Eliquis for now given RLE hematoma as discussed above Admission EKG with NSR, monitor on tele Patient converted to atrial fibrillation RVR Cardiology service consulted Amiodarone drip started Awaiting hematology recommendations regarding anticoagulation 10/15 Converted to sinus rhythm Transition to amiodarone p.o. Metoprolol twice daily maintain for now Awaiting hematology recommendations regarding anticoagulation DM II Last HbA1c 6.6 inpatient Basal/bolus insulin per protocol while admitted BSG AC HS Hypertension Holding losartan for now given JOHN as above CATHERINE CPAP HS Hypothyroidism Continue levothyroxine Endometrial cancer S/P surgery Mood disorder Continue home Bupropion, fluoxetine DVT Ppx: Holding Eliquis for now 2/2 hematoma Code status: FULL PCP: Flo Disposition: transferred to PCU Admission and Anticipated Discharge Date Admission Date: October 12, 2023 Subjective Follow-up for iliopsoas hematoma, atrial fibrillation RVR, etc. Seen resting in bed, not in distress, comfortable Feels tired, did not sleep well last night No chest pain, palpitations, dizziness today No abdominal pain or nausea No other new symptoms Review of Systems Review of Systems: all noted and negative except for above Physical Exam Physical Exam: General- oriented x 3, not in distress, speaks in sentences with no effort or accessory muscle use Eyes- anicteric Neck- no JVD Lungs- clear breath sounds bilaterally, no rales/wheezes Heart- normal rate, regular rhythm; no murmurs Abdomen- normal bowel sounds, nondistended, soft, nontender Extremities- no pretibial edema, no calf tenderness Neuro- alert, oriented x 3; no gross focal neurologic deficits Skin- warm & dry Results & Data Results & Data Vital Signs (Past 12 Hours) Vital Signs Temp Pulse Pulse Resp BP BP Pulse Ox 10/16/23 15:43 36.6 C 60 20 112/65 97 10/16/23 10:54 36.5 C 65 18 134/67 97 10/16/23 08:00 62 10/16/23 08:00 10/16/23 07:32 36.5 C 62 18 117/72 96 O2 Del Method 10/16/23 15:43 Room Air 10/16/23 10:54 Room Air 10/16/23 08:00 10/16/23 08:00 Room Air 10/16/23 07:32 Room Air all noted and reviewed including below (1) Hematoma of right iliopsoas muscle Encounter type: initial encounter Qualified Code(s): S70.11XA - Contusion of right thigh, initial encounter
[2023-10-17 06:33] LABS: Basophils # (auto) 0.05 K/uL (0.00-0.20); Basophils % (auto) 0.4 %; Eosinophils # (auto) 0.16 K/uL (0.00-0.50); Eosinophils % (auto) 1.3 %; Hematocrit (blood only) 27.5 % (37.0-47.0); Hemoglobin 8.7 g/dl (12.0-16.0); Immature Granulocytes # (auto) 0.06 K/uL (0.01-0.20); Immature Granulocytes % (auto) 0.5 %; Lymphocytes # (auto) 2.28 K/uL (1.20-3.40); Lymphocytes % (auto) 19.1 %; Mean Corpuscular Hemoglobin 28.8 pg (25.0-34.0); Mean Corpuscular Hgb Conc 31.6 g/dL (32.0-36.0); Mean Corpuscular Volume 91.1 fL (80.0-100.0); Mean Platelet Volume 10.3 fL (9.4-12.4); Monocytes # (auto) 0.93 K/uL (0.11-0.59); Monocytes % (auto) 7.8 %; Neutrophils # (auto) 8.46 K/uL (1.40-6.50); Neutrophils % (auto) 70.9 %; Platelet Count 283 K/uL (130-400); RDW Coefficient of Variation 12.7 % (11.5-14.5); RDW Standard Deviation 42.3 fL (36.4-46.3); Red Blood Count 3.02 M/uL (4.20-5.40); White Blood Count 11.94 K/ul (4.8-10.8)
[2023-10-17 06:41] LABS: BUN Creatinine Ratio 34.6 (10-20); Calcium 8.8 mg/dl (8.6-10.3); Creatinine Clr Calc Pharmacy 50.4 ml/min; Est GFR (African American) 48.1 ml/min; Est GFR (Non-African American) 41.5 ml/min; Potassium 4.6 mmol/L (3.5-5.1)
--- NOTE | 2023-10-17 12:09 | Cardiology Progress Note ---
Date of Service October 17, 2023 Assessment & Plan (1) Atrial fibrillation with RVR: (2) Hematoma of right iliopsoas muscle: (3) JOHN (acute kidney injury): Plan 10/15/23: Patient admitted several days ago with acute right groin pain, diagnosed with hematoma of the right iliopsoas muscle. No trauma. Spontaneous bleed Eliquis on hold/contraindicated. Mild anemia persists but improving at 9.7 . This afternoon, patient developed recurrent afib RVR. Rates currently in the 110-120 range. Mildly symptomatic. EKG ordered and reviewed. Afib RVR. No acute ischemic changes. Stable QT/QTc at 334/455 ms LFT's normal. TSH normal in August 2023 - recheck in AM Recheck magnesium in AM Start IV amiodarone with bolus and gtt. Continue low dose metoprolol 12.5 mg BID anticoagulation contraindicated currently. Hospitalist contacted and patient to be transferred to PCU bed for IV am iodarone. Repeat EKG in AM Consider future Watchman device. Nephrology notes reviewed. Lasix and losartan on hold. IV fluids to be stopped. Will be discontinued on transfer 10/16/23: Patient successfully converted to NSR last evening after initiation of IV amiodarone with bolus. She had 3.2 second conversion pause but was asymptomatic. No recurrent pauses or bradycardia. IV amiodarone was stopped last night. EKG this morning with normal sinus and normal QT/QTc intervals. Resume oral amiodarone 200 mg BID Continue metoprolol 12.5 mg BID for now. Although patient reports intolerance to metoprolol after last admission. She had borderline tachybrady and may need future consideration for pacemaker. Currently anticoagulation also contraindicated given iliopsoas hematoma. Hbg is slightly lower today at 8.9. Monitor. No Eliquis/heparin. Consider future Watchman device. Renal function improving Consider resuming lasix and losartan as needed. 10/17/23 No recurrent atrial fibrillation. Continue amiodarone 200 mg BID on discharge. After approx 1 month, will reduce to 200 mg daily. Given bradycardia and perceived side effects of beta grady, metoprolol discontinued. Anticoagulation currently contraindicated after developing spontaneous iliopsoas hematoma. Eliquis discontinued. Consider future watchman device. Renal function back to baseline. Would resume losartan and lasix on discharge and f/u BMP next week. Cardiology follow up to be arranged in 2-4 weeks. Will sign off. No futher cardiac testing warranted at this time. Please notify [facility] cardiology provider with additional questions or concerns. Case discussed with Dr. Hickey. I spent a total of 30 minutes on the date of service in preparation, delivery, and documentation of the care provided to this patient, excluding any time spent in the performance of separately billed services. Juju Silva PA-C Department of Cardiology, [facility] This chart was completed in part utilizing Speech Voice Recognition Software. Grammatical errors, random word insertions, pronoun errors, and incomplete sentences are an occasional consequence of this system due to software limitations, ambient noise, and hardware issues. Any formal questions or concerns about the content, text, or information contained within the body of this dictation should be directly addressed to the provider for clarification. Admission and Anticipated Discharge Date Admission Date: October 12, 2023 Supervising Physician Co-Signing Physician Notes Attending attestation. I have personally performed a history and physical examination on the patient. I have reviewed the advance practitioner's documentation, and I agree with, and take responsibility for the plan of care. 68-year-old female admitted with spontaneous right iliopsoas hematoma. Chronically anticoagulated due to history of paroxysmal atrial fibrillation. Paroxysmal atrial fibrillation with rapid ventricular response 10/15/2023. Converted to normal sinus rhythm with addition of IV amiodarone. Continue oral amiodarone 200mg twice daily. Metoprolol discontinued due to history of intolerance (fatigue). Consider referral for Watchman device implantation as outpatient. Cardiology will sign off. Please call with additional concerns/questions. I spent a total of 25 minutes on the date of service in preparation, delivery, and documentation of the care provided to this patient, excluding any time spent in the performance of separately billed services. Subjective Patient resting in chair comfortably. Denies acute cardiac complaints. No chest pain, dyspnea. No palpitations. Maintaining NSR. Review of Systems Review of Systems: All systems reviewed & are unremarkable except as noted in HPI & below Physical Exam Constitutional: + morbidly obese; no acute distress Neck: + thick neck Respiratory: normal respiratory effort Cardiovascular: Rate/Rhythm: regular rate and regular rhythm Heart Sounds: no murmur Vessels: no JVD Extremities: + edema (trace 1+ edema) Gastrointestinal (Abdomen): normal bowel sounds, soft, nontender, no hepatosplenomegaly Neurologic: PERRL, EOMI, accommodation nl, no face palsy, no dysarthria Results & Data Vital Signs (Past 12 Hours) Vital Signs Temp Pulse Pulse Resp BP Pulse Ox O2 Del Method 10/17/23 10:22 36.4 C L 60 19 127/72 97 Room Air 10/17/23 07:13 36.4 C L 63 19 138/78 95 Room Air 10/17/23 06:55 61 10/17/23 02:35 36.4 C L 60 19 146/70 H 97 Room Air Laboratory Results CBC 10/17/23 Range/Units 05:50 WBC 11.94 H (4.8-10.8) K/ul RBC 3.02 L (4.20-5.40) M/uL Hgb 8.7 L (12.0-16.0) g/dl Hct 27.5 L (37.0-47.0) % Plt Count 283 (130-400) K/uL Neut # (Auto) 8.46 H (1.40-6.50) K/uL Lymph # (Auto) 2.28 (1.20-3.40) K/uL [place] # (Auto) 0.93 H (0.11-0.59) K/uL Eos # (Auto) 0.16 (0.00-0.50) K/uL Baso # (Auto) 0.05 (0.00-0.20) K/uL Comprehensive Metabolic Panel 10/17/23 Range/Units 05:50 Sodium 136 (136-145) mmol/L Potassium 4.6 (3.5-5.1) mmol/L Chloride 103 (98-107) mmol/L Carbon Dioxide 29 (21-32) mmol/L BUN 45 H (6-23) mg/dl Creatinine 1.30 H (0.6-1.2) mg/dl Glucose 163 H (70-99(Fasting)) mg/dl Calcium 8.8 (8.6-10.3) mg/dl Intake and Output 10/16/23 10/17/23 10/17/23 22:59 06:59 14:59 Intake Total 290 / 655 Output Total 500 / 700 Balance 290 / -45 -500 / -45 Intake: IV 50 / 50 cefTRIAXone SODIUM 2,000 mg In 50 / 50 50 ml @ 100 mls/hr IV Q24H [facility] Rx#:[id number] Oral 240 / 605 Output: Urine Amount (Catheter) 500 / 700 External 500 / 700 Other: Weight 123.1 kg Weight Measurement Method Built in Bedscale Diagnostic Findings CBC 10/17/23 Range/Units 05:50 WBC 11.94 H (4.8-10.8) K/ul RBC 3.02 L (4.20-5.40) M/uL Hgb 8.7 L (12.0-16.0) g/dl Hct 27.5 L (37.0-47.0) % Plt Count 283 (130-400) K/uL Neut # (Auto) 8.46 H (1.40-6.50) K/uL Lymph # (Auto) 2.28 (1.20-3.40) K/uL [place] # (Auto) 0.93 H (0.11-0.59) K/uL Eos # (Auto) 0.16 (0.00-0.50) K/uL Baso # (Auto) 0.05 (0.00-0.20) K/uL Comprehensive Metabolic Panel 10/17/23 Range/Units 05:50 Sodium 136 (136-145) mmol/L Potassium 4.6 (3.5-5.1) mmol/L Chloride 103 (98-107) mmol/L Carbon Dioxide 29 (21-32) mmol/L BUN 45 H (6-23) mg/dl Creatinine 1.30 H (0.6-1.2) mg/dl Glucose 163 H (70-99(Fasting)) mg/dl Calcium 8.8 (8.6-10.3) mg/dl Intake and Output 10/16/23 10/17/23 10/17/23 22:59 06:59 14:59 Intake Total 290 / 655 Output Total 500 / 700 Balance 290 / -45 -500 / -45 Intake: IV 50 / 50 cefTRIAXone SODIUM 2,000 mg In 50 / 50 50 ml @ 100 mls/hr IV Q24H [facility] Rx#:[id number] Oral 240 / 605 Output: Urine Amount (Catheter) 500 / 700 External 500 / 700 Other: Weight 123.1 kg Weight Measurement Method Built in Bedscale Medications Administered Current Inpatient Medications Acetaminophen (Acetaminophen 500 Mg Tab) 1,000 mg PO Q8H [facility] Stop: 11/11/23 15:59 Last Admin: 10/17/23 08:23 Dose: 1,000 mg Amiodarone HCl (Amiodarone 200 Mg Tab) 200 mg PO BIDM [facility] Stop: 11/15/23 08:04 Last Admin: 10/17/23 08:26 Dose: 200 mg Atorvastatin Calcium (Atorvastatin 20 Mg Tab) 20 mg PO QAM [facility] Stop: 11/12/23 08:59 Last Admin: 10/17/23 08:25 Dose: 20 mg Bupropion HCl (Bupropion Sr 150 Mg Tabcr) [facility] [place] Stop: 11/12/23 08:59 Last Admin: 10/17/23 08:26 Dose: 150 mg Bupropion HCl (Bupropion Sr 100 Mg Tabcr) 100 mg [facility] [place] Stop: 11/12/23 08:59 Last Admin: 10/17/23 08:25 Dose: 100 mg Dextrose (Dextrose 50% 50 Ml Syringe) 25 - 50 ml IV UD PRN; Protocol PRN Reason: Hypoglycemia Protocol Stop: 11/11/23 15:12 Famotidine (Famotidine 20 Mg Tab) 20 mg PO DAILY [facility] Stop: 11/12/23 08:59 Last Admin: 10/17/23 08:24 Dose: 20 mg Fluoxetine HCl (Fluoxetine Hcl 20 Mg Cap) 60 [facility] [place] Stop: 11/12/23 08:59 Last Admin: 10/17/23 08:24 Dose: 60 mg Glucagon (Glucagon For Inj 1 Mg Vial) 1 mg SQ UD PRN; Protocol PRN Reason: Hypoglycemia Protocol Stop: 11/11/23 15:12 Glucose (Glucose 40% Gel 15 Gm Tube) 15 - 30 gm PO UD PRN; Protocol PRN Reason: Hypoglycemia Protocol Stop: 11/11/23 15:12 Glucose (Glucose 10 Tab/Tube) 4 - 8 tab PO UD PRN; Protocol PRN Reason: Hypoglycemia Treatment Stop: 11/11/23 15:12 Ceftriaxone Sodium (Rocephin) 2,000 mg in 50 mls @ 100 mls/hr IV Q24H [facility] Stop: 10/18/23 14:29 Last Infusion: 10/16/23 16:08 Dose: Infused Insulin Aspart (Insulin Aspart Per Unit Charge) 0 units SC [facility] Stop: 11/11/23 16:29 Last Admin: 10/17/23 08:23 Dose: 10 units Insulin Glargine (Lantus Per Unit Charge) 5 units SC BID [facility] Stop: 11/11/23 20:59 Last Admin: 10/17/23 08:24 Dose: 5 units Lactobacillus Acidophilus (Advanced Probiotic 625 Mg Capsule) 1,250 mg PO DAILY [facility] Stop: 11/14/23 14:29 Last Admin: 10/17/23 08:24 Dose: 1,250 mg Levothyroxine Sodium (Levothyroxine Sodium 50 Mcg Tablet) 50 mcg PO DAILYBB [facility] Stop: 11/12/23 06:29 Last Admin: 10/17/23 06:38 Dose: 50 mcg Menthol (Cough Drop (Sugar Free) Randy 24 Randy/1 Box) 1 randy BUCCAL Q6H PRN PRN Reason: Sore Throat Stop: 11/13/23 06:13 Last Admin: 10/14/23 06:27 Dose: 1 randy Miscellaneous (Carbohydrates For Hypoglycemia ) 15 - 30 gm PO UD PRN PRN Reason: Hypoglycemia Protocol Stop: 11/11/23 15:12 Nystatin (Nystatin Powder 15gm Btl) 1 appln EXT BID [facility] Stop: 11/13/23 08:59 Last Admin: 10/17/23 08:27 Dose: 1 appln Ondansetron HCl (Ondansetron Inj 2 Mg/Ml 2 Ml Vial) 4 mg IV Q6H PRN PRN Reason: Nausea Stop: 11/11/23 15:56 Last Admin: 10/16/23 15:39 Dose: 4 mg Oxycodone HCl (Oxycodone Hcl Ir 5 Mg Tab (Immediate Release)) 2.5 mg PO Q6H PRN PRN Reason: Mod-Sev Pain (Scale 4-10) Stop: 10/26/23 15:12 Last Admin: 10/17/23 09:16 Dose: 2.5 mg Polyethylene Glycol (Polyethylene (Miralax) 17 Gm Pack) 17 gm PO DAILY PRN PRN Reason: Constipation Stop: 11/11/23 15:56 Last Admin: 10/15/23 09:41 Dose: 17 gm Vibegron (Vibegron 75 Mg Tab) 75 mg PO QAM [facility] Stop: 11/12/23 08:59 Last Admin: 10/17/23 08:25 Dose: 75 mg (2) Hematoma of right iliopsoas muscle Encounter type: initial encounter Qualified Code(s): S70.11XA - Contusion of right thigh, initial encounter
--- NOTE | 2023-10-17 16:05 | Hospitalist Progress Note ---
Date of Service October 17, 2023 Assessment & Plan (1) Hematoma of right iliopsoas muscle: Plan: Plan Per Previous hospitalist service With Addendum: This is a 68yo F with a PMH of HFpEF (EF 60 to 65% TTE 2023), atrial fibrillation diagnosed in July 2023 on Eliquis, PSVT, hypertension, CATHERINE on CPAP, type 2 diabetes, hypothyroidism, mood disorder, myasthenia gravis affecting vocal cords as per records and other medical problems listed below who presents from home with worsening right-sided groin pain x 3 days and was found to have intramuscular hematoma of R iliopsoas. R groin pain Hematoma of R iliopsoas muscle Acute blood loss anemia Three days of severe R groin pain in the setting of Eliquis use for A fib CT abd/pelvis with asymmetric thickening and a heterogeneous appearance throughout the majority of the right iliopsoas muscle consistent with an intramuscular hematoma. There is an associated small amount of right retroperitoneal hemorrhage Denies any falls or known trauma to area - ? spontaneous hematoma Hb decreased from baseline of 11 to 9 Eliquis is currently on hold. CBC daily Discussed with patient that she is at increased risk of Stroke give her history of A.fib. She verbalized understanding and agrees with holding Eliquis at this time. She will need to follow up with her PCP and Cardiology to discuss regarding resuming Eliquis in the future. Scheduled Tylenol, PRN oxycodone for breakthrough pain Fall precautions, PT/OT evals Hemoglobin stable Anticoagulation on hold Acute kidney injury Cr 1.71 (baseline ~ 1) in setting of poor PO intake, recent Bactrim course and possible related with bleeding Given 1 L NSS in ED Holding home lasix and losartan Obtain urine electrolytes Obtain CK CT abdomen/pelvis didn't hydronephrosis will start LR at 80cc per hour Nephrology consulted for comanagement Creatinine improving to 1.2-1.3 DC IV fluids Partially treated UTI Grew Klebsiella pneumonia and Aerococcus urinae with intermediate sensitivity to Bactrim on outpatient 09/30 urine culture Had completed 7 day course Bactrim 10/09, started on Macrobid Will transition to Rocephin for a 3 day course to complete treatment as patient still having dysuria, increased urgency and nausea Blood culture obtained; will follow up on results. Improving Continue ceftriaxone day 5 out of 5 HFpEF, compensated EF 60 to 65% TTE 2023 Appears on dry side hold lasix given JOHN Reassess volume status, repeat BMP in AM Paroxysmal atrial fibrillation Sinus bradycardia and possible tachybradycardia syndrome on previous admission - Toprol held at that time. Patient does not want to resume ZIO monitor as outpatient - results pending Hold Eliquis for now given RLE hematoma as discussed above Admission EKG with NSR, monitor on tele Patient converted to atrial fibrillation RVR Cardiology service consulted Amiodarone drip started Awaiting hematology recommendations regarding anticoagulation 10/15 Converted to sinus rhythm Transition to amiodarone p.o. Metoprolol twice daily maintain for now Awaiting hematology recommendations regarding anticoagulation 10/16 Sinus rhythm, heart rate on the lower side, low 60s DC metoprolol Continue amiodarone 200 mg p.o. twice daily Anticoagulation held in light of iliopsoas hematoma Reevaluate as an outpatient DM II Last HbA1c 6.6 inpatient Basal/bolus insulin per protocol while admitted BSG AC HS Hypertension Holding losartan for now given JOHN as above CATHERINE CPAP HS Hypothyroidism Continue levothyroxine Endometrial cancer S/P surgery Mood disorder Continue home Bupropion, fluoxetine DVT Ppx: Holding Eliquis for now 2/2 hematoma Code status: FULL PCP: Flo Disposition: PT recommending acute rehab Admission and Anticipated Discharge Date Admission Date: October 12, 2023 Subjective Follow-up for iliopsoas hematoma, atrial fibrillation RVR, UTI, etc. Seen resting in bedside chair, comfortable, not in distress, good spirits States she feels improved today compared to yesterday Had better sleep overnight Denies chest pain, palpitations, dizziness No other new symptom Review of Systems Review of Systems: all noted and negative except for above Physical Exam Physical Exam: General- oriented x 3, not in distress, speaks in sentences with no effort or accessory muscle use Eyes- anicteric Neck- no JVD Lungs- clear breath sounds bilaterally Heart- normal rate, regular rhythm; no murmurs Abdomen- normal bowel sounds, nondistended, soft, no tenderness Extremities- no pretibial edema, no calf tenderness Neuro- alert, oriented x 3; no gross focal neurologic deficits Skin- warm & dry Results & Data Results & Data Vital Signs (Past 12 Hours) Vital Signs Temp Pulse Pulse Resp BP Pulse Ox O2 Del Method 10/17/23 15:17 36.4 C L 58 L 20 107/69 96 Room Air 07/26/24 15:01 59 L 10/17/23 10:22 36.4 C L 60 19 127/72 97 Room Air 10/17/23 07:13 36.4 C L 63 19 138/78 95 Room Air 10/17/23 06:55 61 all noted and reviewed including below (1) Hematoma of right iliopsoas muscle Encounter type: initial encounter Qualified Code(s): S70.11XA - Contusion of right thigh, initial encounter
[2023-10-18 06:01] LABS: Basophils # (auto) 0.04 K/uL (0.00-0.20); Basophils % (auto) 0.3 %; Eosinophils # (auto) 0.21 K/uL (0.00-0.50); Eosinophils % (auto) 1.6 %; Hematocrit (blood only) 28.7 % (37.0-47.0); Hemoglobin 8.9 g/dl (12.0-16.0); Immature Granulocytes # (auto) 0.08 K/uL (0.01-0.20); Immature Granulocytes % (auto) 0.6 %; Lymphocytes # (auto) 1.91 K/uL (1.20-3.40); Lymphocytes % (auto) 14.6 %; Mean Corpuscular Hemoglobin 28.6 pg (25.0-34.0); Mean Corpuscular Volume 92.3 fL (80.0-100.0); Mean Platelet Volume 10.2 fL (9.4-12.4); Monocytes # (auto) 0.95 K/uL (0.11-0.59); Monocytes % (auto) 7.2 %; Neutrophils # (auto) 9.92 K/uL (1.40-6.50); Neutrophils % (auto) 75.7 %; Platelet Count 280 K/uL (130-400); RDW Coefficient of Variation 12.8 % (11.5-14.5); RDW Standard Deviation 42.4 fL (36.4-46.3); Red Blood Count 3.11 M/uL (4.20-5.40); White Blood Count 13.11 K/ul (4.8-10.8)
[2023-10-18 06:10] LABS: BUN Creatinine Ratio 34.3 (10-20); Calcium 8.8 mg/dl (8.6-10.3); Creatinine Clr Calc Pharmacy 48.9 ml/min; Est GFR (African American) 46.4 ml/min; Potassium 4.6 mmol/L (3.5-5.1)
--- NOTE | 2023-10-18 18:00 | Hospitalist Progress Note ---
Date of Service October 18, 2023 Assessment & Plan (1) Hematoma of right iliopsoas muscle: Plan: Plan Per Previous hospitalist service With Addendum: This is a 68yo F with a PMH of HFpEF (EF 60 to 65% TTE 2023), atrial fibrillation diagnosed in July 2023 on Eliquis, PSVT, hypertension, CATHERINE on CPAP, type 2 diabetes, hypothyroidism, mood disorder, myasthenia gravis affecting vocal cords as per records and other medical problems listed below who presents from home with worsening right-sided groin pain x 3 days and was found to have intramuscular hematoma of R iliopsoas. R groin pain Hematoma of R iliopsoas muscle Acute blood loss anemia Three days of severe R groin pain in the setting of Eliquis use for A fib CT abd/pelvis with asymmetric thickening and a heterogeneous appearance throughout the majority of the right iliopsoas muscle consistent with an intramuscular hematoma. There is an associated small amount of right retroperitoneal hemorrhage Denies any falls or known trauma to area - ? spontaneous hematoma Hb decreased from baseline of 11 to 9 Eliquis is currently on hold. CBC daily Discussed with patient that she is at increased risk of Stroke give her history of A.fib. She verbalized understanding and agrees with holding Eliquis at this time. She will need to follow up with her PCP and Cardiology to discuss regarding resuming Eliquis in the future. Scheduled Tylenol, PRN oxycodone for breakthrough pain Fall precautions, PT/OT evals Hemoglobin stable Anticoagulation on hold Acute kidney injury Cr 1.71 (baseline ~ 1) in setting of poor PO intake, recent Bactrim course and possible related with bleeding Given 1 L NSS in ED Holding home lasix and losartan Obtain urine electrolytes Obtain CK CT abdomen/pelvis didn't hydronephrosis will start LR at 80cc per hour Nephrology consulted for comanagement Creatinine improving to 1.2-1.3 DC IV fluids Partially treated UTI Grew Klebsiella pneumonia and Aerococcus urinae with intermediate sensitivity to Bactrim on outpatient 09/30 urine culture Had completed 7 day course Bactrim 10/09, started on Macrobid Will transition to Rocephin for a 3 day course to complete treatment as patient still having dysuria, increased urgency and nausea Blood culture obtained; will follow up on results. 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 Patient does not want to resume ZIO monitor as outpatient - results pending Hold Eliquis for now given RLE hematoma as discussed above Admission EKG with NSR, monitor on tele Patient converted to atrial fibrillation RVR Cardiology service consulted Amiodarone drip started Awaiting hematology recommendations regarding anticoagulation 10/15 Converted to sinus rhythm Transition to amiodarone p.o. Metoprolol twice daily maintain for now Awaiting hematology recommendations regarding anticoagulation 10/16 Sinus rhythm, heart rate on the lower side, low 60s DC metoprolol Continue amiodarone 200 mg p.o. twice daily Anticoagulation held in light of iliopsoas hematoma Reevaluate as an outpatient 10/17 remains in SR, HR 60s QTc ok continue Amiodarone DM II Last HbA1c 6.6 inpatient Basal/bolus insulin per protocol while admitted BSG AC HS Hypertension Holding losartan for now given JOHN as above CATHERINE CPAP HS Hypothyroidism Continue levothyroxine Endometrial cancer S/P surgery Mood disorder Continue home Bupropion, fluoxetine DVT Ppx: Holding Eliquis for now 2/2 hematoma Code status: FULL PCP: Flo Disposition: PT recommending acute rehab Admission and Anticipated Discharge Date Admission Date: October 12, 2023 Subjective ff up for a fib rvr, etc seen resting in bed developed nausea after having lunch then had some dizziness no chest pain, dyspnea, palpitations no other symptoms Review of Systems Review of Systems: all noted and negative except for above Physical Exam Physical Exam: General- oriented x 3, not in distress, speaks in sentences with no effort or accessory muscle use Eyes- anicteric Neck- no JVD Lungs- clear breath sounds bilaterally, no rales/wheezes Heart- normal rate, regular rhythm; no murmurs Abdomen- normal bowel sounds, nondistended, soft, nontender Extremities- no pretibial edema, no calf tenderness Neuro- alert, oriented x 3; no gross focal neurologic deficits Skin- warm & dry Results & Data Results & Data Vital Signs (Past 12 Hours) Vital Signs Temp Pulse Resp BP BP Pulse Ox O2 Del Method 10/18/23 15:30 36.5 C 66 18 133/76 99 Room Air 10/18/23 11:04 36.4 C L 60 18 113/55 L 97 Room Air 10/18/23 07:33 36.5 C 61 18 114/70 99 Room Air all noted and reviewed including below (1) Hematoma of right iliopsoas muscle Encounter type: initial encounter Qualified Code(s): S70.11XA - Contusion of right thigh, initial encounter
--- NOTE | 2023-10-18 20:49 | Electrocardiogram Report ---
Test Reason : Blood Pressure : / mmHG Vent. Rate : 064 BPM Atrial Rate : 064 BPM P-R Int : 162 ms QRS Dur : 084 ms QT Int : 402 ms P-R-T Axes : 047 041 030 degrees QTc Int : 414 ms Normal sinus rhythm Low voltage QRS Borderline ECG When compared with ECG of 16-OCT-2023 06:02, No significant change was found Confirmed by Tomer Peacock ([id number]) on 10/18/2023 8:48:55 PM Referred By: REFERRED SELF Confirmed By:Tomer Peacock
[2023-10-19 06:19] LABS: Hematocrit (blood only) 29.4 % (37.0-47.0); Hemoglobin 9.2 g/dl (12.0-16.0); Mean Corpuscular Hemoglobin 28.6 pg (25.0-34.0); Mean Corpuscular Hgb Conc 31.3 g/dL (32.0-36.0); Mean Corpuscular Volume 91.3 fL (80.0-100.0); Mean Platelet Volume 9.8 fL (9.4-12.4); Neutrophils % (auto) 76.1 %; Platelet Count 299 K/uL (130-400); RDW Coefficient of Variation 12.6 % (11.5-14.5); RDW Standard Deviation 41.4 fL (36.4-46.3); Red Blood Count 3.22 M/uL (4.20-5.40); White Blood Count 12.27 K/ul (4.8-10.8)
[2023-10-19 06:20] LABS: Basophils # (auto) 0.04 K/uL (0.00-0.20); Basophils % (auto) 0.3 %; Eosinophils % (auto) 1.6 %; Immature Granulocytes # (auto) 0.08 K/uL (0.01-0.20); Immature Granulocytes % (auto) 0.7 %; Lymphocytes # (auto) 1.72 K/uL (1.20-3.40); Monocytes # (auto) 0.89 K/uL (0.11-0.59); Monocytes % (auto) 7.3 %; Neutrophils # (auto) 9.34 K/uL (1.40-6.50)
[2023-10-19 06:41] LABS: BUN Creatinine Ratio 38.1 (10-20); Est GFR (African American) 54.1 ml/min; Est GFR (Non-African American) 46.7 ml/min; Potassium 5.2 mmol/L (3.5-5.1)
[2023-10-19] MEDS: LACTULOSE SYRUP 30 GM/45 ML UDP PO STA (15:35)
--- NOTE | 2023-10-19 17:11 | Hospitalist Progress Note ---
Date of Service October 19, 2023 Assessment & Plan (1) Hematoma of right iliopsoas muscle: Plan: Plan Per Previous hospitalist service With Addendum: This is a 68yo F with a PMH of HFpEF (EF 60 to 65% TTE 2023), atrial fibrillation diagnosed in July 2023 on Eliquis, PSVT, hypertension, CATHERINE on CPAP, type 2 diabetes, hypothyroidism, mood disorder, myasthenia gravis affecting vocal cords as per records and other medical problems listed below who presents from home with worsening right-sided groin pain x 3 days and was found to have intramuscular hematoma of R iliopsoas. R groin pain Hematoma of R iliopsoas muscle Acute blood loss anemia Three days of severe R groin pain in the setting of Eliquis use for A fib CT abd/pelvis with asymmetric thickening and a heterogeneous appearance throughout the majority of the right iliopsoas muscle consistent with an intramuscular hematoma. There is an associated small amount of right retroperitoneal hemorrhage Denies any falls or known trauma to area - ? spontaneous hematoma Hb decreased from baseline of 11 to 9 Eliquis is currently on hold. CBC daily Discussed with patient that she is at increased risk of Stroke give her history of A.fib. She verbalized understanding and agrees with holding Eliquis at this time. She will need to follow up with her PCP and Cardiology to discuss regarding resuming Eliquis in the future. Scheduled Tylenol, PRN oxycodone for breakthrough pain Fall precautions, PT/OT evals Hemoglobin stable Anticoagulation on hold Acute kidney injury Cr 1.71 (baseline ~ 1) in setting of poor PO intake, recent Bactrim course and possible related with bleeding Given 1 L NSS in ED Holding home lasix and losartan Obtain urine electrolytes Obtain CK CT abdomen/pelvis didn't hydronephrosis will start LR at 80cc per hour Nephrology consulted for comanagement Creatinine improving to 1.2-1.3 DC IV fluids Partially treated UTI Grew Klebsiella pneumonia and Aerococcus urinae with intermediate sensitivity to Bactrim on outpatient 09/30 urine culture Had completed 7 day course Bactrim 10/09, started on Macrobid Will transition to Rocephin for a 3 day course to complete treatment as patient still having dysuria, increased urgency and nausea Blood culture obtained; will follow up on results. Improving Continue ceftriaxone day 7 out of 7 HFpEF, compensated EF 60 to 65% TTE 2023 Appears on dry side hold lasix given JOHN Reassess volume status, repeat BMP in AM Paroxysmal atrial fibrillation Sinus bradycardia and possible tachybradycardia syndrome on previous admission - Toprol held at that time. Patient does not want to resume ZIO monitor as outpatient - results pending Hold Eliquis for now given RLE hematoma as discussed above Admission EKG with NSR, monitor on tele Patient converted to atrial fibrillation RVR Cardiology service consulted Amiodarone drip started Awaiting hematology recommendations regarding anticoagulation 10/15 Converted to sinus rhythm Transition to amiodarone p.o. Metoprolol twice daily maintain for now Awaiting hematology recommendations regarding anticoagulation 10/16 Sinus rhythm, heart rate on the lower side, low 60s DC metoprolol Continue amiodarone 200 mg p.o. twice daily Anticoagulation held in light of iliopsoas hematoma Reevaluate as an outpatient 10/17 remains in SR, HR 60s QTc ok continue Amiodarone 10/18 Remains in sinus rhythm Heart rate in the 60s Continue amiodarone DM II Last HbA1c 6.6 inpatient Basal/bolus insulin per protocol while admitted BSG AC HS Hypertension Holding losartan for now given JOHN as above CATHERINE CPAP HS Hypothyroidism Continue levothyroxine Endometrial cancer S/P surgery Mood disorder Continue home Bupropion, fluoxetine DVT Ppx: Holding Eliquis for now 2/2 hematoma Code status: FULL PCP: Flo Disposition: PT recommending acute rehab, Discharge to acute rehab once accepted Admission and Anticipated Discharge Date Admission Date: October 12, 2023 Subjective Follow-up for A-fib, etc. Seen resting in bedside chair, comfortable, not in distress Nausea, dizziness resolved No chest pain, palpitations, shortness of breath No other new symptom Review of Systems Review of Systems: all noted and negative except for above Physical Exam Physical Exam: General- oriented x 3, not in distress, speaks in sentences with no effort or accessory muscle use Eyes- anicteric Neck- no JVD Lungs- clear breath sounds bilaterally, no rales/wheezes Heart- normal rate, regular rhythm; no murmurs Abdomen- normal bowel sounds, nondistended, soft, nontender Extremities- no pretibial edema, no calf tenderness Neuro- alert, oriented x 3; no gross focal neurologic deficits Skin- warm & dry Results & Data Results & Data Vital Signs (Past 12 Hours) Vital Signs Temp Pulse Resp BP Pulse Ox O2 Del Method 10/19/23 15:21 36.6 C 58 L 18 110/61 98 Room Air 10/19/23 11:44 36.6 C 80 16 110/69 99 Room Air 10/19/23 07:50 36.4 C L 63 18 110/65 96 Room Air all noted and reviewed including below (1) Hematoma of right iliopsoas muscle Encounter type: initial encounter Qualified Code(s): S70.11XA - Contusion of right thigh, initial encounter
[2023-10-20 06:45] LABS: Basophils # (auto) 0.05 K/uL (0.00-0.20); Basophils % (auto) 0.4 %; Eosinophils # (auto) 0.23 K/uL (0.00-0.50); Hematocrit (blood only) 28.6 % (37.0-47.0); Immature Granulocytes % (auto) 0.9 %; Lymphocytes # (auto) 1.98 K/uL (1.20-3.40); Lymphocytes % (auto) 17.5 %; Mean Corpuscular Hemoglobin 28.9 pg (25.0-34.0); Mean Corpuscular Hgb Conc 31.5 g/dL (32.0-36.0); Mean Platelet Volume 10.3 fL (9.4-12.4); Monocytes # (auto) 0.83 K/uL (0.11-0.59); Monocytes % (auto) 7.3 %; Neutrophils # (auto) 8.14 K/uL (1.40-6.50); Neutrophils % (auto) 71.9 %; Platelet Count 290 K/uL (130-400); RDW Coefficient of Variation 12.7 % (11.5-14.5); RDW Standard Deviation 41.7 fL (36.4-46.3); Red Blood Count 3.11 M/uL (4.20-5.40); White Blood Count 11.33 K/ul (4.8-10.8)
[2023-10-20 07:09] LABS: BUN Creatinine Ratio 34.7 (10-20); Calcium 8.7 mg/dl (8.6-10.3); Creatinine Clr Calc Pharmacy 57.3 ml/min; Est GFR (African American) 54.1 ml/min; Est GFR (Non-African American) 46.7 ml/min; Potassium 4.8 mmol/L (3.5-5.1)
[2023-10-20] MEDS: LACTULOSE SYRUP 30 GM/45 ML UDP PO STA (16:09)
[2023-10-20] MEDS: FUROSEMIDE 40 MG TAB PO ONE (16:09)
[2023-10-20] MEDS: POLYETHYLENE (MIRALAX) 17 GM PACK PO SCH (16:10)
--- NOTE | 2023-10-20 19:38 | Hospitalist Progress Note ---
Date of Service October 20, 2023 delayed entry date of service noted above Assessment & Plan (1) Hematoma of right iliopsoas muscle: Plan: Plan Per Previous hospitalist service With Addendum: This is a 68yo F with a PMH of HFpEF (EF 60 to 65% TTE 2023), atrial fibrillation diagnosed in July 2023 on Eliquis, PSVT, hypertension, CATHERINE on CPAP, type 2 diabetes, hypothyroidism, mood disorder, myasthenia gravis affecting vocal cords as per records and other medical problems listed below who presents from home with worsening right-sided groin pain x 3 days and was found to have intramuscular hematoma of R iliopsoas. R groin pain Hematoma of R iliopsoas muscle Acute blood loss anemia Three days of severe R groin pain in the setting of Eliquis use for A fib CT abd/pelvis with asymmetric thickening and a heterogeneous appearance throughout the majority of the right iliopsoas muscle consistent with an intramuscular hematoma. There is an associated small amount of right retroperitoneal hemorrhage Denies any falls or known trauma to area - ? spontaneous hematoma Hb decreased from baseline of 11 to 9 Eliquis is currently on hold. CBC daily Discussed with patient that she is at increased risk of Stroke give her history of A.fib. She verbalized understanding and agrees with holding Eliquis at this time. She will need to follow up with her PCP and Cardiology to discuss regarding resuming Eliquis in the future. Scheduled Tylenol, PRN oxycodone for breakthrough pain Fall precautions, PT/OT evals Hemoglobin stable Anticoagulation on hold Acute kidney injury Cr 1.71 (baseline ~ 1) in setting of poor PO intake, recent Bactrim course and possible related with bleeding Given 1 L NSS in ED Holding home lasix and losartan Obtain urine electrolytes Obtain CK CT abdomen/pelvis didn't hydronephrosis will start LR at 80cc per hour Nephrology consulted for comanagement Creatinine improving to 1.2-1.3 DC'd IV fluids Partially treated UTI Grew Klebsiella pneumonia and Aerococcus urinae with intermediate sensitivity to Bactrim on outpatient 09/30 urine culture Had completed 7 day course Bactrim 10/09, started on Macrobid Will transition to Rocephin for a 3 day course to complete treatment as patient still having dysuria, increased urgency and nausea Blood culture obtained; will follow up on results. Improving completed ceftriaxone day 09/27 HFpEF, compensated EF 60 to 65% TTE 2023 (+) mild lower ext edema given Lasix 20mg po Paroxysmal atrial fibrillation Sinus bradycardia and possible tachybradycardia syndrome on previous admission - Toprol held at that time. Patient does not want to resume ZIO monitor as outpatient - results pending Hold Eliquis for now given RLE hematoma as discussed above Admission EKG with NSR, monitor on tele Patient converted to atrial fibrillation RVR Cardiology service consulted Amiodarone drip started Awaiting hematology recommendations regarding anticoagulation 10/15 Converted to sinus rhythm Transition to amiodarone p.o. Metoprolol twice daily maintain for now Awaiting hematology recommendations regarding anticoagulation 10/16 Sinus rhythm, heart rate on the lower side, low 60s DC metoprolol Continue amiodarone 200 mg p.o. twice daily Anticoagulation held in light of iliopsoas hematoma Reevaluate as an outpatient 10/17 remains in SR, HR 60s QTc ok continue Amiodarone 10/19 Remains in sinus rhythm Heart rate in the 60s Continue amiodarone DM II Last HbA1c 6.6 inpatient Basal/bolus insulin per protocol while admitted BSG AC HS Hypertension Holding losartan for now given JOHN as above CATHERINE CPAP HS Hypothyroidism Continue levothyroxine Endometrial cancer S/P surgery Mood disorder Continue home Bupropion, fluoxetine DVT Ppx: Holding Eliquis for now 2/2 hematoma Code status: FULL PCP: Flo Disposition: PT recommending acute rehab, Discharge to acute rehab once accepted Admission and Anticipated Discharge Date Admission Date: October 12, 2023 Subjective Follow-up for A-fib, etc. Seen sitting up in chair, comfortable, not in distress States she feels good overall No chest pain, palpitations, dizziness No other new symptoms Review of Systems Review of Systems: all noted and negative except for above Physical Exam Physical Exam: General- oriented x 3, not in distress, speaks in sentences with no effort or accessory muscle use Eyes- anicteric Neck- no JVD Lungs- clear breath sounds bilaterally, no rales/wheezes Heart- normal rate, regular rhythm; no murmurs Abdomen- normal bowel sounds, nondistended, soft, nontender Extremities- no pretibial edema, no calf tenderness Neuro- alert, oriented x 3; no gross focal neurologic deficits Skin- warm & dry Results & Data Results & Data Vital Signs (Past 12 Hours) Vital Signs Temp Pulse Pulse Resp BP BP Pulse Ox 10/20/23 14:57 63 10/20/23 14:27 36.3 C L 62 17 106/66 98 10/20/23 11:22 36.7 C 70 18 132/73 98 10/20/23 09:24 10/20/23 08:51 66 10/20/23 07:41 36.5 C 67 20 113/72 95 O2 Del Method 10/20/23 14:57 10/20/23 14:27 Room Air 10/20/23 11:22 Room Air 10/20/23 09:24 Room Air 10/20/23 08:51 10/20/23 07:41 Room Air all noted and reviewed including below (1) Hematoma of right iliopsoas muscle Encounter type: initial encounter Qualified Code(s): S70.11XA - Contusion of right thigh, initial encounter
[2023-10-21 08:18] LABS: BUN Creatinine Ratio 36.2 (10-20); Calcium 8.9 mg/dl (8.6-10.3); Creatinine Clr Calc Pharmacy 49.1 ml/min; Est GFR (African American) 44.8 ml/min; Est GFR (Non-African American) 38.6 ml/min; Potassium 5.8 mmol/L (3.5-5.1)
--- NOTE | 2023-10-21 19:54 | Hospitalist Progress Note ---
Date of Service October 21, 2023 Assessment & Plan (1) Hematoma of right iliopsoas muscle: Plan: Plan Per Previous hospitalist service With Addendum: This is a 68yo F with a PMH of HFpEF (EF 60 to 65% TTE 2023), atrial fibrillation diagnosed in July 2023 on Eliquis, PSVT, hypertension, CATHERINE on CPAP, type 2 diabetes, hypothyroidism, mood disorder, myasthenia gravis affecting vocal cords as per records and other medical problems listed below who presents from home with worsening right-sided groin pain x 3 days and was found to have intramuscular hematoma of R iliopsoas. R groin pain Hematoma of R iliopsoas muscle Acute blood loss anemia Three days of severe R groin pain in the setting of Eliquis use for A fib CT abd/pelvis with asymmetric thickening and a heterogeneous appearance throughout the majority of the right iliopsoas muscle consistent with an intramuscular hematoma. There is an associated small amount of right retroperitoneal hemorrhage Denies any falls or known trauma to area - ? spontaneous hematoma Hb decreased from baseline of 11 to 9 Eliquis is currently on hold. CBC daily Discussed with patient that she is at increased risk of Stroke give her history of A.fib. She verbalized understanding and agrees with holding Eliquis at this time. She will need to follow up with her PCP and Cardiology to discuss regarding resuming Eliquis in the future. Scheduled Tylenol, PRN oxycodone for breakthrough pain Fall precautions, PT/OT evals Hemoglobin stable Anticoagulation on hold Acute kidney injury Cr 1.71 (baseline ~ 1) in setting of poor PO intake, recent Bactrim course and possible related with bleeding Given 1 L NSS in ED Holding home lasix and losartan CT abdomen/pelvis didn't hydronephrosis Nephrology consulted for comanagement Creatinine improving to 1.2-1.3 DC'd IV fluids Partially treated UTI Grew Klebsiella pneumonia and Aerococcus urinae with intermediate sensitivity to Bactrim on outpatient 09/30 urine culture Had completed 7 day course Bactrim 10/09, started on Macrobid completed ceftriaxone day 09/27 Urinary symptoms resolved HFpEF, compensated EF 60 to 65% TTE 2023 (+) mild lower ext edema given Lasix 20mg po yesterday--> crea increased slightly hold Lasix monitor may only need 2x a week instead of daily Paroxysmal atrial fibrillation Sinus bradycardia and possible tachybradycardia syndrome on previous admission - Toprol held at that time. Patient does not want to resume ZIO monitor as outpatient - results pending Hold Eliquis for now given RLE hematoma as discussed above Admission EKG with NSR, monitor on tele Patient converted to atrial fibrillation RVR Cardiology service consulted Amiodarone drip started 10/15 Converted to sinus rhythm Transitioned to amiodarone p.o. Metoprolol discontinued hold anticoagulation for now per Cardiology service Consider referral for Watchman device implantation as outpatient. 10/19 Remains in sinus rhythm Heart rate in the 60s Continue amiodarone po ff up with Cardiology upon discharge DM II Last HbA1c 6.6 inpatient Basal/bolus insulin per protocol while admitted BSG AC HS Hypertension Holding losartan for now given JOHN as above BP stable CATHERINE CPAP HS Hypothyroidism Continue levothyroxine Endometrial cancer S/P surgery Mood disorder Continue home Bupropion, fluoxetine DVT Ppx: Holding Eliquis for now 2/2 hematoma Code status: FULL PCP: Flo Disposition: PT recommending acute rehab, Discharge to acute rehab once accepted Admission and Anticipated Discharge Date Admission Date: October 12, 2023 Subjective Follow-up for A-fib, etc. Seen resting in bedside chair, comfortable, not in distress. States he continues to feel good overall ambulated outside the room for a few feet but got tired easily Otherwise no chest pain, palpitations, dizziness No other symptoms Review of Systems Review of Systems: all noted and negative except for above Results & Data Results & Data Vital Signs (Past 12 Hours) Vital Signs Temp Pulse Pulse Resp BP Pulse Ox O2 Del Method 10/21/23 15:12 36.4 C L 67 18 114/72 99 Room Air 10/21/23 14:12 68 10/21/23 11:00 36.6 C 72 18 111/60 95 Room Air all noted and reviewed including below (1) Hematoma of right iliopsoas muscle Encounter type: initial encounter Qualified Code(s): S70.11XA - Contusion of right thigh, initial encounter
[2023-10-21] MEDS: LACTULOSE SYRUP 30 GM/45 ML UDP PO PRN (20:29)
--- NOTE | 2023-10-22 10:44 | Hospitalist Progress Note ---
Date of Service October 22, 2023 Assessment & Plan (1) Hematoma of right iliopsoas muscle: Plan: This is a 68yo F with a PMH of HFpEF (EF 60 to 65% TTE 2023), atrial fibrillation diagnosed in July 2023 on Eliquis, PSVT, hypertension, CATHERINE on CPAP, type 2 diabetes, hypothyroidism, mood disorder, myasthenia gravis affecting vocal cords as per records and other medical problems listed below who presents from home with worsening right-sided groin pain x 3 days and was found to have intramuscular hematoma of R iliopsoas. R groin pain Hematoma of R iliopsoas muscle Acute blood loss anemia Three days of severe R groin pain in the setting of Eliquis use for A fib CT abd/pelvis with asymmetric thickening and a heterogeneous appearance throughout the majority of the right iliopsoas muscle consistent with an intramuscular hematoma. There is an associated small amount of right retroperitoneal hemorrhage Denies any falls or known trauma to area - ? spontaneous hematoma Hb decreased from baseline of 11 to 9 Discussed with patient that she is at increased risk of Stroke give her history of A.fib. She verbalized understanding and agrees with holding Eliquis at this time. She will need to follow up with her PCP and Cardiology to discuss regarding resuming Eliquis in the future. Scheduled Tylenol, PRN oxycodone for breakthrough pain Fall precautions, PT/OT evals Acute kidney injury Cr 1.71 (baseline ~ 1) in setting of poor PO intake, recent Bactrim course and possible related with bleeding Holding home lasix and losartan CT abdomen/pelvis didn't hydronephrosis Nephrology consulted for comanagement Creatinine back to baseline DC'd IV fluids Partially treated UTI Grew Klebsiella pneumonia and Aerococcus urinae with intermediate sensitivity to Bactrim on outpatient 09/30 urine culture Had completed 7 day course Bactrim 10/09, started on Macrobid completed ceftriaxone day 09/27 Urinary symptoms resolved HFpEF, compensated EF 60 to 65% TTE 2023 (+) mild lower ext edema hold Lasix monitor may only need 2x a week instead of daily Paroxysmal atrial fibrillation Sinus bradycardia and possible tachybradycardia syndrome on previous admission - Toprol held at that time. Patient does not want to resume ZIO monitor as outpatient - results pending Hold Eliquis for now given RLE hematoma as discussed above Admission EKG with NSR, monitor on tele Patient converted to atrial fibrillation with RVR during the hospitalization; started on amiodarone drip as per cardiology. Patient to be discharged on amiodarone 200 mg twice daily for 1 month; once a day after that. Patient to be evaluated for Watchman device as outpatient. DM II Last HbA1c 6.6 inpatient Basal/bolus insulin per protocol while admitted BSG AC HS Hypertension Holding losartan for now BP stable CATHERINE CPAP HS Hypothyroidism Continue levothyroxine Endometrial cancer S/P surgery Mood disorder Continue home Bupropion, fluoxetine DVT Ppx: Holding Eliquis for now 2/2 hematoma Code status: FULL PCP: Flo Disposition: PT recommending acute rehab, Discharge to acute rehab once accepted Please note the above document was generated using voice recognition software. It may contain grammatical, syntax or spelling errors. Any formal questions or concerns about the content, text or information contained within the body of this dictation should be directly addressed to the provider for clarification Admission and Anticipated Discharge Date Admission Date: October 12, 2023 Subjective Patient seen and examined at bedside. Comfortable; not in distress. Denies fever, chills, chest pain, shortness of breath, abdominal pain or urinary symptoms. No significant overnight events Review of Systems Review of Systems: All systems reviewed & are unremarkable except as noted in Subjective Physical Exam Physical Exam: General Appearance: WD/WN, vitals as above, NAD, sitting up in bed, obese, pleasant, conversing easily Respiratory: normal respiratory effort, lungs clear to auscultation, no wheeze, rales, rhonchi. No accessory muscle use Cardiovascular: regular rate, rhythm, normal peripheral pulses, no BLE edema. Vessels: no JVD Chest: normal inspection of chest Abdomen/GI: normal bowel sounds, soft, nontender, no hepatosplenomegaly Extremities/Musculoskeletal: + R TTP of lower abdomen, no trauma to area visualized, no cyanosis or clubbing, extremities motor strength 5/5 Neurologic: PERRL, EOMI, accommodation nl, no face palsy, no dysarthria, CN's II-XI intact bilaterally and moves all extremities Psychiatric: A+Ox3, euthymic affect Skin: no rashes, normal color, warm/dry Results & Data Results & Data Vital Signs (Past 12 Hours) Vital Signs Temp Pulse Pulse Resp BP Pulse Ox O2 Del Method 07/31/24 08:00 Room Air 10/22/23 07:24 67 10/22/23 03:36 36.6 C 69 19 125/79 96 Room Air 10/21/23 22:57 36.6 C 71 18 104/52 L 97 Room Air (1) Hematoma of right iliopsoas muscle Encounter type: initial encounter Qualified Code(s): S70.11XA - Contusion of right thigh, initial encounter
[2023-10-22 11:47] LABS: Basophils # (auto) 0.04 K/uL (0.00-0.20); Basophils % (auto) 0.4 %; Eosinophils # (auto) 0.25 K/uL (0.00-0.50); Eosinophils % (auto) 2.4 %; Hematocrit (blood only) 29.2 % (37.0-47.0); Hemoglobin 9.2 g/dl (12.0-16.0); Immature Granulocytes # (auto) 0.09 K/uL (0.01-0.20); Immature Granulocytes % (auto) 0.9 %; Lymphocytes # (auto) 1.35 K/uL (1.20-3.40); Lymphocytes % (auto) 12.8 %; Mean Corpuscular Hemoglobin 28.5 pg (25.0-34.0); Mean Corpuscular Hgb Conc 31.5 g/dL (32.0-36.0); Mean Corpuscular Volume 90.4 fL (80.0-100.0); Mean Platelet Volume 9.8 fL (9.4-12.4); Monocytes # (auto) 0.91 K/uL (0.11-0.59); Monocytes % (auto) 8.6 %; Neutrophils # (auto) 7.89 K/uL (1.40-6.50); Neutrophils % (auto) 74.9 %; Platelet Count 303 K/uL (130-400); RDW Standard Deviation 42.5 fL (36.4-46.3); Red Blood Count 3.23 M/uL (4.20-5.40); White Blood Count 10.53 K/ul (4.8-10.8)
[2023-10-22 12:04] LABS: Creatinine Clr Calc Pharmacy 58.9 ml/min; Est GFR (African American) 55.8 ml/min; Est GFR (Non-African American) 48.2 ml/min; Potassium 4.7 mmol/L (3.5-5.1)
--- NOTE | 2023-10-23 06:19 | Electrocardiogram Report ---
Test Reason : Blood Pressure : / mmHG Vent. Rate : 070 BPM Atrial Rate : 070 BPM P-R Int : 156 ms QRS Dur : 090 ms QT Int : 400 ms P-R-T Axes : 041 024 032 degrees QTc Int : 432 ms Normal sinus rhythm Low voltage QRS Borderline ECG When compared with ECG of 18-OCT-2023 14:06, No significant change was found Confirmed by Tomer Peacock ([id number]) on 10/23/2023 6:18:33 AM Referred By: REFERRED SELF Confirmed By:Tomer Peacock
--- NOTE | 2023-10-23 08:54 | Hospitalist Progress Note ---
Date of Service October 23, 2023 Assessment & Plan (1) Hematoma of right iliopsoas muscle: Plan: This is a 68yo F with a PMH of HFpEF (EF 60 to 65% TTE 2023), atrial fibrillation diagnosed in July 2023 on Eliquis, PSVT, hypertension, CATHERINE on CPAP, type 2 diabetes, hypothyroidism, mood disorder, myasthenia gravis affecting vocal cords as per records and other medical problems listed below who presents from home with worsening right-sided groin pain x 3 days and was found to have intramuscular hematoma of R iliopsoas. R groin pain Hematoma of R iliopsoas muscle Acute blood loss anemia Three days of severe R groin pain in the setting of Eliquis use for A fib CT abd/pelvis with asymmetric thickening and a heterogeneous appearance throughout the majority of the right iliopsoas muscle consistent with an intramuscular hematoma. There is an associated small amount of right retroperitoneal hemorrhage Denies any falls or known trauma to area - ? spontaneous hematoma Hb decreased from baseline of 11 to 9; stable Discussed with patient that she is at increased risk of Stroke give her history of A.fib. She verbalized understanding and agrees with holding Eliquis at this time. She will need to follow up with her PCP and Cardiology to discuss regarding resuming Eliquis in the future. Scheduled Tylenol, PRN oxycodone for breakthrough pain Fall precautions, PT/OT evals Acute kidney injury Cr 1.71 (baseline ~ 1) in setting of poor PO intake, recent Bactrim course and possible related with bleeding Holding home lasix and losartan CT abdomen/pelvis didn't hydronephrosis Nephrology consulted for comanagement Creatinine back to baseline DC'd IV fluids Constipation likely related with opoid use on bowel regimen with miralax, senna and milk of magnesia Monitor. Partially treated UTI Grew Klebsiella pneumonia and Aerococcus urinae with intermediate sensitivity to Bactrim on outpatient 09/30 urine culture Had completed 7 day course Bactrim 10/09, started on Macrobid completed ceftriaxone day 09/27 Urinary symptoms resolved HFpEF, compensated EF 60 to 65% TTE 2023 (+) mild lower ext edema hold Lasix monitor may only need 2x a week instead of daily Paroxysmal atrial fibrillation Sinus bradycardia and possible tachybradycardia syndrome on previous admission - Toprol held at that time. Patient does not want to resume ZIO monitor as outpatient - results pending Hold Eliquis for now given RLE hematoma as discussed above Admission EKG with NSR, monitor on tele Patient converted to atrial fibrillation with RVR during the hospitalization; started on amiodarone drip as per cardiology. Patient to be discharged on amiodarone 200 mg twice daily for 1 month; once a day after that. Patient to be evaluated for Watchman device as outpatient. DM II Last HbA1c 6.6 inpatient Basal/bolus insulin per protocol while admitted BSG AC HS Hypertension Holding losartan for now BP stable CATHERINE CPAP HS Hypothyroidism Continue levothyroxine Endometrial cancer S/P surgery Mood disorder Continue home Bupropion, fluoxetine DVT Ppx: Holding Eliquis for now 2/2 hematoma Code status: FULL PCP: Flo Disposition: PT recommending acute rehab, Discharge to rehab once accepted Please note the above document was generated using voice recognition software. It may contain grammatical, syntax or spelling errors. Any formal questions or concerns about the content, text or information contained within the body of this dictation should be directly addressed to the provider for clarification Admission and Anticipated Discharge Date Admission Date: October 12, 2023 Subjective Patient seen and examined at bedside. Comfortable; not in distress. Pain is well-controlled on current regimen Reports constipation Review of Systems Review of Systems: All systems reviewed & are unremarkable except as noted in Subjective Physical Exam Physical Exam: General Appearance: WD/WN, vitals as above, NAD, sitting up in bed, obese, pleasant, conversing easily Respiratory: normal respiratory effort, lungs clear to auscultation, no wheeze, rales, rhonchi. No accessory muscle use Cardiovascular: regular rate, rhythm, normal peripheral pulses, no BLE edema. Vessels: no JVD Chest: normal inspection of chest Abdomen/GI: normal bowel sounds, soft, nontender, no hepatosplenomegaly Extremities/Musculoskeletal: + R TTP of lower abdomen, no trauma to area visualized, no cyanosis or clubbing, extremities motor strength 5/5 Neurologic: PERRL, EOMI, accommodation nl, no face palsy, no dysarthria, CN's II-XI intact bilaterally and moves all extremities Psychiatric: A+Ox3, euthymic affect Skin: no rashes, normal color, warm/dry Results & Data Results & Data Vital Signs (Past 12 Hours) Vital Signs Temp Pulse Pulse Resp BP Pulse Ox O2 Del Method 10/23/23 08:09 36.6 C 68 19 111/70 95 Room Air 10/23/23 03:49 36.5 C 66 16 132/67 96 Room Air 10/22/23 23:10 36.4 C L 65 18 149/71 H 97 Room Air 10/22/23 23:02 70 (1) Hematoma of right iliopsoas muscle Encounter type: initial encounter Qualified Code(s): S70.11XA - Contusion of right thigh, initial encounter
[2023-10-23] MEDS: DOCUSATE SODIUM/SENNA 50/8.6MG TAB PO SCH (11:36)
[2023-10-23] MEDS: MAGNESIUM HYDROXIDE SUSP 30 ML UDC PO SCH (11:36)
[2023-10-23] MEDS: PROMETHAZINE HCL 12.5 MG in SODIUM CHLORIDE 0.9% 50 ML IV STA (21:32)
--- NOTE | 2023-10-24 09:47 | Discharge Summary ---
Date of Service October 24, 2023 Admission HPI Per Admitting Provider This is a 68yo F with a PMH of HFpEF (EF 60 to 65% TTE 2023), atrial fibrillation diagnosed in July 2023 on Eliquis, PSVT, hypertension, CATHERINE on CPAP, type 2 diabetes, hypothyroidism, mood disorder, myasthenia gravis affecting vocal cords as per records and other medical problems listed below who presents from home with worsening right-sided groin pain x 3 days. Patient was admitted at the end of July for new onset atrial fibrillation and sustained a fall during that admission onto left buttocks. Has had tailbone pain since then as well as some mild aching right sided groin pain. Underwent x-rays of coccyx and hips at 08/24 follow-up appointment with PCP that was negative for any fracture or traumatic finding. Was readmitted in August to [facility] for Klebsiella UTI as well as concern for some tachy bradycardia syndrome. Toprol was discontinued at that time. Continued to have urinary symptoms and completed 7-day course of Bactrim on 10/09 with a 09/30 outpatient urine culture growing Klebsiella pneumonia and Aerococcus urinae with intermediate sensitivity to Bactrim. Was then started on a 7-day course of Macrobid on 10/07, which she has been taking up through last evening. Continues to have increased urinary urgency and burning that has been exacerbated by severe "tearing" pain of right groin over the past 3 days. Making ambulation difficult and feels very different from chronic spinal stenosis or resolving coccyx pain from fall in late July. Denies any falls or trauma at home. Ambulates with a walker at baseline. Has been taking Eliquis as prescribed. Also notes ongoing nausea and decreased p.o. intake that she is attributed to UTI. No fever, chills, cough, congestion, chest pain, palpitations, shortness of breath, abdominal pain, diarrhea or constipation. Admission Exam Per Admitting Provider General Appearance: WD/WN, vitals as above, NAD, sitting up in bed, obese, pleasant, conversing easily Head: normocephalic, atraumatic Eyes: normal inspection, PERRL, conjunctivae normal, anicteric sclerae ENT: external ear and nose normal, oropharynx normal Neck: normal visual inspection, trachea midline, no thyromegaly Respiratory: normal respiratory effort, lungs clear to auscultation, no wheeze, rales, rhonchi. No accessory muscle use Cardiovascular: regular rate, rhythm, normal peripheral pulses, no BLE edema. Vessels: no JVD Chest: normal inspection of chest Abdomen/GI: normal bowel sounds, soft, nontender, no hepatosplenomegaly Extremities/Musculoskeletal: + R TTP of lower abdomen extending into groin, no trauma to area visualized, no cyanosis or clubbing, extremities motor strength 5/5 Neurologic: PERRL, EOMI, accommodation nl, no face palsy, no dysarthria, CN's II-XI intact bilaterally and moves all extremities Psychiatric: A+Ox3, euthymic affect Skin: no rashes, normal color, warm/dry Principal Diagnosis R groin pain Hematoma of R iliopsoas muscle Acute blood loss anemia Acute kidney injury Discharge Exam General Appearance: WD/WN, vitals as above, NAD, sitting up in bed, obese, pleasant, conversing easily Respiratory: normal respiratory effort, lungs clear to auscultation, no wheeze, rales, rhonchi. No accessory muscle use Cardiovascular: regular rate, rhythm, normal peripheral pulses, no BLE edema. Vessels: no JVD Chest: normal inspection of chest Abdomen/GI: normal bowel sounds, soft, nontender, no hepatosplenomegaly Extremities/Musculoskeletal: + R TTP of lower abdomen, no trauma to area visualized, no cyanosis or clubbing, extremities motor strength 5/5 Neurologic: PERRL, EOMI, accommodation nl, no face palsy, no dysarthria, CN's II-XI intact bilaterally and moves all extremities Psychiatric: A+Ox3, euthymic affect Skin: no rashes, normal color, warm/dry Discharge Data Allergies Allergy/AdvReac Type Severity Reaction Status Date / Time penicillin G Allergy Intermediate HIVES Verified 09/04/23 19:15 codeine AdvReac Intermediate VOMITING Verified 09/04/23 19:15 hydrocodone AdvReac Intermediate Vomiting Verified 09/04/23 19:15 Consultations 10/12/23 13:56 ED Decision to Admit Stat 10/12/23 14:30 Consult General Surgery Routine 10/14/23 07:57 Consult Nephrology Routine 10/15/23 14:29 Consult Hematology Routine 10/15/23 15:00 Consult Cardiology Routine Ordered Studies 10/12/23 12:16 CT abd pelvis wo con Stat Hospital Course (1) Hematoma of right iliopsoas muscle: This is a 68yo F with a PMH of HFpEF (EF 60 to 65% TTE 2023), atrial fibrillation diagnosed in July 2023 on Eliquis, PSVT, hypertension, CATHERINE on CPAP, type 2 diabetes, hypothyroidism, mood disorder, myasthenia gravis affecting vocal cords as per records and other medical problems listed below who presents from home with worsening right-sided groin pain x 3 days and was found to have intramuscular hematoma of R iliopsoas. R groin pain Hematoma of R iliopsoas muscle Acute blood loss anemia Three days of severe R groin pain in the setting of Eliquis use for A fib CT abd/pelvis with asymmetric thickening and a heterogeneous appearance throughout the majority of the right iliopsoas muscle consistent with an intramuscular hematoma. There is an associated small amount of right retroperitoneal hemorrhage Denies any falls or known trauma to area - ? spontaneous hematoma Hb decreased from baseline of 11 to 9; stable Hemoglobin remained stable around 9 throughout the hospitalization. Discussed with patient that she is at increased risk of Stroke give her history of A.fib. She verbalized understanding and agrees with holding Eliquis at this time. She will need to follow up with her PCP and Cardiology to discuss regarding resuming Eliquis in the future. Scheduled Tylenol, PRN oxycodone for breakthrough pain Patient discharged to rehab Acute kidney injury Cr 1.71 (baseline ~ 1) in setting of poor PO intake, recent Bactrim course and possible related with bleeding Holding home lasix and losartan CT abdomen/pelvis didn't hydronephrosis Nephrology consulted for comanagement Creatinine back to baseline At discharge. Losartan was stopped, Lasix dose was decreased to 20 mg 3 times a week Paroxysmal atrial fibrillation Sinus bradycardia and possible tachybradycardia syndrome on previous admission - Toprol held at that time. Patient does not want to resume ZIO monitor as outpatient - results pending Hold Eliquis for now given RLE hematoma as discussed above Admission EKG with NSR, monitor on tele Patient converted to atrial fibrillation with RVR during the hospitalization; started on amiodarone drip as per cardiology. Patient to be discharged on amiodarone 200 mg twice daily for 1 month; once a day after that. Patient discharged to subacute rehab Please note the above document was generated using voice recognition software. It may contain grammatical, syntax or spelling errors. Any formal questions or concerns about the content, text or information contained within the body of this dictation should be directly addressed to the provider for clarification Total Time Total Time Spent Total Time Spent (In Minutes): 45 Total Time Includes: Examination of the Patient, Discharge Planning, Medication Reconciliation, Communication With Other Providers and Other Discharge Plan Discharge Items Patient Disposition: Transfer [facility] Reason For Visit: UTI, JOHN, RLE INTRAMUSCULAR HEMATOMA Discharge Diagnosis: R groin pain Hematoma of R iliopsoas muscle Acute blood loss anemia Activity: Resume your previous activity Non-emergency contact: Primary Care Provider Call non-emergency contact if: you have any medication questions and your symptoms worsen Follow-up/Referrals: Aviva Rossi DO [Primary Care Provider] - Diet: Regular Addtl Attending Provider Instructions: You were admitted to the hospital due to hematoma in iliopsoas muscle. It is likely due to the Eliquis. Your hemoglobin was stable around 9 mg per DL during the hospitalization. You had acute kidney injury for which you were evaluated by nephrology. Losartan is stopped for now as your blood pressure continues to be in normal range. Lasix dose has been decreased to 20 mg 3 times a week for now. If you see increasing bilateral lower extremity edema; increases to daily. You are also found to have atrial fibrillation RVR for which you are evaluated by cardiology. You are started on amiodarone. You need to take amiodarone 200 mg twice a day for 23 more days, then take it once a day. Please follow-up with your primary care doctor after discharge Pending Studies at Discharge: No Stand-Alone Forms: My [facility] Skilled Items Patient informed of condition?: No DNR: No Discharge Level of Care: Skilled Communicable Disease: No Discharge Prognosis: Stable Lines: None Urinary Catheter: No Medications and DC Order Prescriptions: New amiodarone 200 mg Tablet See Taper PO BIDM Qty: 100 0RF Taper: Taper, Blank 200 mg TWICE A DAY for 23 Days 200 mg DAILY for 30 Days sennosides-docusate sodium [Senokot-S] 8.6-50 mg Tablet 1 tab PO QAM Qty: 30 0RF oxycodone 5 mg Tablet 2.5 mg PO Q6H PRN (Reason: pain) Qty: 7 0RF lactulose 10 gram/15 mL (15 mL) Solution 30 g PO DAILY PRN (Reason: constipation) Qty: 1440 0RF Advanced Probiotic 625 mg (10 billion cell) Capsule 1 cap PO DAILY Qty: 30 0RF magnesium hydroxide [Milk of Magnesia] 400 mg/5 mL Suspension 30 ml PO BID PRN (Reason: constipation) Qty: 355 0RF polyethylene glycol 3350 [Miralax] 17 gram Powder In Packet 17 g PO DAILY Qty: 30 0RF Continued bupropion HCl 150 mg Tablet Sustained-Release 12 Hr 150 mg PO QAM Qty: 30 0RF Rx Instructions: TOTAL DOSE 250 MG--TAKES WITH 100 MG TAB. atorvastatin 20 mg Tablet 20 mg PO QAM Qty: 30 0RF cyanocobalamin (vitamin B-12) 1,000 mcg Tablet 1,000 mcg PO QAM Qty: 30 0RF Rx Instructions: otc unable to verify 08/13/23 bupropion HCl 100 mg Tablet Sustained-Release 12 Hr 100 mg PO QAM Qty: 30 0RF Rx Instructions: TOTAL DOSE 250 MG--TAKES WITH 150 MG TAB. famotidine [Pepcid] 20 mg Tablet 20 mg PO DAILY Qty: 30 0RF levothyroxine 50 mcg tablet 50 mcg PO QAM Qty: 30 0RF cholecalciferol (vitamin D3) [Vitamin D3] 50 mcg (2,000 unit) Tablet 50 mcg PO DAILY Qty: 30 0RF fluoxetine 60 mg Tablet 60 mg PO QAM Qty: 30 0RF mirabegron [Myrbetriq] 50 mg Tablet Extended Release 24 Hr 50 mg PO QAM Qty: 30 0RF Xultophy 100/3.6 100 unit-3.6 mg /mL (3 mL) Insulin Pen 19 unit SUBCUT DAILY Qty: 15 0RF Rx Instructions: per pharmacy -up to 50 units daily per titration. 08/13/23 Changed furosemide 40 mg tablet 20 mg PO 3XWK Qty: 30 0RF Discontinued losartan 100 mg Tablet 25 mg PO QAM Eliquis 5 mg tablet 5 mg PO BID Qty: 60 0RF Discharge Orders: Discharge Order (Routine); Ordered 10/24/23 Ordered By: Lorenzo Franco/Other Patient Handouts: Managing Type 2 Diabetes Admission Data Admit Date/Time: 10/12/23 15:59 Attending Provider: Lorenzo Jimenez Admit Provider: Dennis Denis Primary Care Provider: Aviva Rossi Other Providers: [place]; [facility]; Lorenzo Jimenez; Dennis Denis; Mannie Worley; Gaston Burnham; Jeanine Khan; Kimberly Bonilla; Taco Zuluaga; Yin Mccallum; David Ibrahim; Andrzej Zhou; Willy Phelps; Bhargavi Dhillon; [place],No Attending; [place]; [facility]
== END 2023-10-24 17:33 | DRG 813 ==
LOC: 2N 10:43 → ED 10:43 → 2N 15:45 → SUATTDRO 15:59 → 2N 10-15 01:29 → 2S 10-15 18:18

== ENCOUNTER 2024-03-25 19:31 | Inpatient (IN) ==
[2024-03-25 20:36] LABS: Basophils # (auto) 0.03 K/uL (0.00-0.20); Basophils % (auto) 0.3 %; Eosinophils # (auto) 0.14 K/uL (0.00-0.50); Eosinophils % (auto) 1.4 %; Hematocrit (blood only) 37.1 % (37.0-47.0); Immature Granulocytes # (auto) 0.03 K/uL (0.01-0.20); Immature Granulocytes % (auto) 0.3 %; Lymphocytes # (auto) 0.84 K/uL (1.20-3.40); Lymphocytes % (auto) 8.2 %; Mean Corpuscular Hgb Conc 32.3 g/dL (32.0-36.0); Mean Corpuscular Volume 86.5 fL (80.0-100.0); Mean Platelet Volume 10.6 fL (9.4-12.4); Monocytes # (auto) 0.77 K/uL (0.11-0.59); Monocytes % (auto) 7.5 %; Neutrophils % (auto) 82.3 %; Platelet Count 277 K/uL (130-400); RDW Coefficient of Variation 13.5 % (11.5-14.5); RDW Standard Deviation 42.3 fL (36.4-46.3); Red Blood Count 4.29 M/uL (4.20-5.40); White Blood Count 10.21 K/ul (4.8-10.8)
[2024-03-25 20:48] LABS: Anion Gap 7 (3-11); Blood Urea Nitrogen 53 mg/dl (6-23); Carbon Dioxide 33 mmol/L (21-32); Chloride 98 mmol/L (98-107); Potassium 3.6 mmol/L (3.5-5.1); Sodium 138 mmol/L (136-145)
[2024-03-25 20:49] LABS: Alanine Aminotransferase 32 U/L (7-52); Albumin Globulin Ratio 1.2 (0.9-2); Albumin Level 4.1 gm/dl (3.4-5.0); Alkaline Phosphatase 53 U/L (34-104); Aspartate Aminotransferase 30 U/L (13-39); BUN Creatinine Ratio 31.4 (10-20); Bilirubin,Total 0.8 mg/dl (0.2-1.0); Calcium 9.4 mg/dl (8.6-10.3); Globulin 3.4 gm/dl (2.5-4.0); Glucose 130 mg/dl (70-99(Fasting)); Total Protein 7.5 gm/dl (6.0-8.3)
[2024-03-25 21:16] LABS: Adenovirus PCR Not Detected (NotDetected); Bordetella parapertussis PCR Not Detected (NotDetected); Bordetella pertussis PCR Not Detected (NotDetected); Chlamydia pneumoniae PCR Not Detected (NotDetected); Coronavirus 229E PCR Not Detected (NotDetected); Coronavirus CoV-2 (COVID19)PCR Not Detected (NotDetected); Coronavirus HKU1 PCR Not Detected (NotDetected); Coronavirus NL63 PCR Not Detected (NotDetected); Coronavirus OC43PCR Not Detected (NotDetected); Human Metapneumovirus PCR Not Detected (NotDetected); Influenza A PCR Not Detected (NotDetected); Influenza B PCR Not Detected (NotDetected); Mycoplasma pneumoniae PCR Not Detected (NotDetected); Parainfluenza Virus 1 PCR Not Detected (NotDetected); Parainfluenza Virus 2 PCR Not Detected (NotDetected); Parainfluenza Virus 3 PCR Not Detected (NotDetected); Parainfluenza Virus 4 PCR Not Detected (NotDetected); Respiratory Syncytial VirusPCR Not Detected (NotDetected); Rhinovirus/Enterovirus PCR Not Detected (NotDetected)
--- NOTE | 2024-03-25 22:53 | XRay Report ---
Exam(s): XR CXR 1 VIEW EXAM: XR Chest, 1 View CLINICAL HISTORY: Reason for exam: illness. TECHNIQUE: Frontal view of the chest. COMPARISON: Prior chest x-ray from September 04, 2023. FINDINGS: Lungs: Pulmonary vascular congestion with increased interstitial opacities. No consolidation. Pleural space: There is a small right pleural effusion. No pneumothorax. Heart: Mild cardiomegaly. Mediastinum: Unremarkable. Normal mediastinal contour. Bones/joints: Unremarkable. No acute fracture. IMPRESSION: Cardiomegaly with pulmonary vascular congestion and pulmonary edema with small right pleural effusion. Electronically signed by: Mague Beard MD 03/25/24 22:51 PM
[2024-03-25 23:19] LABS: Appearance Urine Clear (Clear); Bacteria Urine Automated 1+ (None Seen); Bilirubin Urine Negative (Negative); Blood Urine Negative (Negative); Color Urine Yellow; Glucose Urine UA Negative (Negative); Ketones Urine Negative (Negative); Leukocyte Esterase Urine 2+ (Negative); Mucus Urine Present (None Prsent); Nitrite Urine Positive (Negative); Protein Urine Trace (Negative); RBC Urine Automated 0-2 /hpf (0-2); Specific Gravity Urine 1.014 (1.000-1.030); Urobilinogen Urine Negative (Negative); WBC Urine Automated 21-50 /hpf (0-5)
--- NOTE | 2024-03-25 23:25 | Emergency Department Note ---
Impression & Plan Acute exacerbation of CHF (congestive heart failure), Acute UTI (urinary tract infection), Acute kidney injury superimposed on chronic kidney disease ED Provider Note HISTORY OF PRESENT ILLNESS: Patient is a 69-year-old female presenting with generalized weakness. Patient reports that she is been having progressively worsening weakness and decline over the last few weeks. Reports she has had multiple episodes of nausea and vomiting over the last 3 to 4 weeks. States that she has been feeling generally unwell and slightly lightheaded over the last 2 to 3 days. States that she has some slight burning when she urinates but denies any hematuria. Denies any chest pain or significant shortness of breath. Patient reports has been sleeping in a recliner secondary to being unable to get up and get around at home. She states she is normally ambulatory with a cane. Denies any headache or changes in vision. Denies any numbness or tingling in her extremities. Denies any notable fevers or subjective fevers or chills at home. She denies any recent falls or head injury. Denies any recent sick contact exposures. Patient denies any significant weight gain. However, she reports she does feel very swollen. Reports she is on Bumex but does not feel like it is working. ROS: as above PHYSICAL EXAM: Constitutional: Patient appears in no acute distress. Obese HENT: Head: Normocephalic and atraumatic. Eyes: EOMI, PERRL Mouth/Throat: Mucous membranes moist. Neck: Trachea midline. Neck supple. Cardiovascular: RRR, No murmurs, rubs or gallops. Intact distal pulses. Pulmonary/Chest: No respiratory distress. Breath sounds clear and equal bilaterally. No wheezes or rales. Patient is conversationally dyspneic. Abdominal: Abdomen soft, no tenderness, rebound or guarding. Musculoskeletal: No edema, tenderness or deformity noted. Skin: Warm and dry. No rash, erythema, pallor or cyanosis Psychiatric: Appropriate mood and affect for situation. Neurological: Alert and keenly responsive. CN II-XII grossly intact, moving all extremities equally and fully. MDM: - Vitals signs showed hypertension - History obtained via patient. History as above. - Chronic conditions affecting care: HTN; HLD; DM-2; paroxysmal Afib - Differential diagnoses include, but are not limited to: Congestive heart failure; acute coronary syndrome; COPD/asthma exacerbation; pulmonary edema; pulmonary embolism; pneumonia; pneumothorax; viral syndrome - Order placed for continuous cardiac monitoring. At this time, monitor showed rate of 75 bpm with normal sinus rhythm, per my interpretation. - External medical records reviewed. Discharge summary dated 10/24/2023 was reviewed. Patient was admitted due to a hematoma of her right iliopsoas muscle and acute blood loss anemia. - EKG interpreted by myself showed normal sinus rhythm. Rate 71 bpm. QT 454. No acute ischemic changes. - Laboratory workup interpreted by myself showed normal WBC; normal PT/INR; JOHN on CKD (Cr 1.69); hyperglycemia (glucose 130); normal troponin - Viral respiratory panel negative. - CXR shows pulmonary vascular congestion, per my interpretation. Radiologist notes pulmonary edema and small right pleural effusion. - UA shows evidence of infection. Given 2g IV rocephin - Discussion was had with adult protective caseworker about patient's case and need for admission - Hospitalist, Dr. Manzano, consulted for admission - [facility] ASSESSMENT AND PLAN: Diagnosis: Acute CHF exacerbation; acute UTI; JOHN on CKD Plan: admit Past Med/Surg History Problem List (Updated 03/26/24 @ 00:55 by Crys Bland MD) Acute kidney injury superimposed on chronic kidney disease (Acute) Acute UTI (urinary tract infection) (Acute) Acute exacerbation of CHF (congestive heart failure) (Acute) Atrial fibrillation with RVR Right groin pain (Acute) JOHN (acute kidney injury) (Acute) Hematoma of right iliopsoas muscle (Acute) UTI (urinary tract infection) (Acute) Paroxysmal atrial fibrillation Generalized weakness (Acute) Hyperlipidemia Hypertension Diabetes mellitus, type 2 dexcom intact Medical History Chronic cough 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, 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 Hypothyroidism Myasthenia gravis "EFFECTS ONLY MY VOCAL CORDS" Arthritis Stress incontinence in female GERD (gastroesophageal reflux disease) Hx of cancer of endometrium Idiopathic hypersomnia ADHD Depression Peripheral neuropathy Hx of migraines Irregular heart beats NO CARDS Hx of sleep apnea NO DEVICE Chronic obstructive pulmonary disease H/O Surgical History History of surgery lymph node removed from forehead (benign) Hx of cataract extraction right/left History of esophagogastroduodenoscopy (EGD) H/O colonoscopy with polypectomy H/O total hysterectomy History of tooth extraction Nausea and vomiting after administration of anesthetic agent Family History Other No family history of adverse response to anesthesia Social History Smoking Status: Never smoker Tobacco Type: Cigarettes Second Hand Exposure: Yes (as a small child); Do You Dip or Chew Tobacco: No; Hx Alcohol Use: Yes Alcohol type: wine Hx Substance Use: No Preferred Language: Portuguese Communication Ability: Effective [employer] Required: No Beliefs That Will Affect Care: None Current Living Situation: Alone Feels Safe at Home: Yes Assistive Devices: Cane, Crutches and Walker Allergies Allergies Allergy/AdvReac Type Severity Reaction Status Date / Time penicillin G Allergy Intermediate HIVES Verified 09/04/23 19:15 codeine AdvReac Intermediate VOMITING Verified 09/04/23 19:15 hydrocodone AdvReac Intermediate Vomiting Verified 09/04/23 19:15 Home Meds Previous Rx's Medication Instructions Recorded L.acidop,casei,lactis,rham-B.lact,catarino 1 cap PO DAILY #30 caps 10/24/23 625 mg (10 billion cell) capsule (Advanced Probiotic) amiodarone 200 mg tablet See Taper PO BIDM #100 tabs 10/24/23 atorvastatin 20 mg tablet 20 mg PO QAM #30 tabs 10/24/23 bupropion HCl 100 mg tablet,12 hr 100 mg PO QAM #30 ea 10/24/23 sustained-release bupropion HCl 150 mg tablet,12 hr 150 mg PO QAM #30 ea 10/24/23 sustained-release cholecalciferol (vitamin D3) 50 50 mcg PO DAILY #30 tabs 10/24/23 mcg (2,000 unit) tablet (Vitamin D3) cyanocobalamin (vitamin B-12) 1,000 mcg PO QAM #30 tabs 10/24/23 1,000 mcg tablet famotidine 20 mg tablet (Pepcid) 20 mg PO DAILY #30 tabs 10/24/23 fluoxetine 60 mg tablet 60 mg PO QAM #30 tabs 10/24/23 furosemide 40 mg tablet 20 mg (1/2 x 40 mg) PO 3XWK #30 10/24/23 tabs insulin degludec 100 19 unit subcut DAILY #15 mL 10/24/23 unit-liraglutide 3.6 mg/mL(3 mL) subcutaneous pen (Xultophy 100/3.6) lactulose 10 gram/15 mL (15 mL) 30 g (45 mL) PO DAILY PRN 10/24/23 oral solution constipation #1,440 mL levothyroxine 50 mcg tablet 50 mcg PO QAM #30 tabs 10/24/23 magnesium hydroxide 400 mg/5 mL 30 ml PO BID PRN constipation #355 10/24/23 oral suspension (Milk of Magnesia) mL mirabegron 50 mg tablet,extended 50 mg PO QAM #30 tabs 10/24/23 release 24 hr (Myrbetriq) oxycodone 5 mg tablet 2.5 mg (1/2 x 5 mg) PO Q6H PRN 10/24/23 pain #7 tabs polyethylene glycol 3350 17 gram 17 g PO DAILY #30 ea 10/24/23 oral powder packet (Miralax) sennosides 8.6 mg-docusate sodium 1 tab PO QAM #30 tabs 10/24/23 50 mg tablet (Senokot-S) Results & Data (ED) Vital Signs Vital Signs - 24 hr 03/25/24 19:39 03/25/24 22:43 03/25/24 22:49 Temperature 36.9 C Temperature Source Temporal Artery Scan Pulse Rate 77 72 Pulse Rate [Apical] 72 Respiratory Rate 16 16 Respiratory Effort / Characteristics Non-Labored Non-Labored Spontaneous Respiratory Depth Normal Blood Pressure 132/77 Blood Pressure [Right Arm] 119/76 Blood Pressure Mean 95 Blood Pressure Mean [Right Arm] 90 Blood Pressure Position [Right Arm] Lying Pulse Oximetry 98 100 Oxygen Delivery Method Room Air Room Air Sepsis Recent Fever Within 48 Hours No Sepsis New/Unexplained Change in Mental Status No Sepsis Action Taken by Nursing No Action Required 03/25/24 23:00 03/26/24 00:05 Temperature Temperature Source Pulse Rate Pulse Rate [Apical] 72 74 Respiratory Rate 13 18 Respiratory Effort / Characteristics Respiratory Depth Blood Pressure Blood Pressure [Right Arm] 178/65 H 170/82 H Blood Pressure Mean Blood Pressure Mean [Right Arm] 102 111 Blood Pressure Position [Right Arm] Pulse Oximetry 94 99 Oxygen Delivery Method Room Air Room Air Sepsis Recent Fever Within 48 Hours Sepsis New/Unexplained Change in Mental Status Sepsis Action Taken by Nursing Laboratory Data 03/25/24 20:16 03/25/24 20:16 Lab Results 03/25/24 03/25/24 Range/Units 20:16 22:44 WBC 10.21 (4.8-10.8) K/ul RBC 4.29 (4.20-5.40) M/uL Hgb 12.0 (12.0-16.0) g/dl Hct 37.1 (37.0-47.0) % MCV 86.5 (80.0-100.0) fL MCH 28.0 (25.0-34.0) pg MCHC 32.3 (32.0-36.0) g/dL RDW Std Deviation 42.3 (36.4-46.3) fL RDW Coeff of [place] 13.5 (11.5-14.5) % Plt Count 277 (130-400) K/uL MPV 10.6 (9.4-12.4) fL Immature Gran % (Auto) 0.3 % Neut % (Auto) 82.3 % Lymph % (Auto) 8.2 % [place] % (Auto) 7.5 % Eos % (Auto) 1.4 % Baso % (Auto) 0.3 % Neut # (Auto) 8.40 H (1.40-6.50) K/uL Lymph # (Auto) 0.84 L (1.20-3.40) K/uL [place] # (Auto) 0.77 H (0.11-0.59) K/uL Eos # (Auto) 0.14 (0.00-0.50) K/uL Baso # (Auto) 0.03 (0.00-0.20) K/uL Immature Gran # (Auto) 0.03 (0.01-0.20) K/uL Sodium 138 (136-145) mmol/L Potassium 3.6 (3.5-5.1) mmol/L Chloride 98 (98-107) mmol/L Carbon Dioxide 33 H (21-32) mmol/L Anion Gap 7 (3-11) BUN 53 H (6-23) mg/dl Creatinine 1.69 H (0.6-1.2) mg/dl Est Cr Clr Drug Dosing Not Reportable eGFR 32.09 BUN/Creatinine Ratio 31.4 H (10-20) Glucose 130 H (70-99(Fasting)) mg/dl Calcium 9.4 (8.6-10.3) mg/dl Total Bilirubin 0.8 (0.2-1.0) mg/dl AST 30 (13-39) U/L ALT 32 (7-52) U/L Alkaline Phosphatase 53 (34-104) U/L Troponin I High Sens 7.0 (0-14) pg/ml Total Protein 7.5 (6.0-8.3) gm/dl Albumin 4.1 (3.4-5.0) gm/dl Globulin 3.4 (2.5-4.0) gm/dl Albumin/Globulin Ratio 1.2 (0.9-2) Urine Color Yellow Urine Appearance Clear (Clear) Urine pH 5.0 (4.5-7.5) Ur Specific [place] 1.014 (1.000-1.030) Urine Protein Trace H (Negative) Urine Glucose (UA) Negative (Negative) Urine Ketones Negative (Negative) Urine Blood Negative (Negative) Urine Nitrite Positive A (Negative) Urine Bilirubin Negative (Negative) Urine Urobilinogen Negative (Negative) Ur Leukocyte Esterase 2+ H (Negative) Urine WBC (Auto) 21-50 H (0-5) /hpf Urine RBC (Auto) 0-2 (0-2) /hpf U Hyaline Cast (Auto) 6-10 H (0-2) /lpf U Epithel Cells (Auto) 3-5 H (0-2) /hpf Urine Bacteria (Auto) 1+ H (None Seen) Urine Mucus Present A (None Prsent) Adenovirus (PCR) Not Detected (NotDetected) B. pertussis DNA (PCR) Not Detected (NotDetected) B.parapertussis DNA PCR Not Detected (NotDetected) C. pneumoniae DNA (PCR) Not Detected (NotDetected) Coronavirus OC43 (PCR) Not Detected (NotDetected) Coronavirus HKU1 (PCR) Not Detected (NotDetected) Coronavirus 229E (PCR) Not Detected (NotDetected) SARS-CoV-2 (PCR) Not Detected (NotDetected) Coronavirus NL63 (PCR) Not Detected (NotDetected) Human Metapneumovir PCR Not Detected (NotDetected) Influenza Type A (PCR) Not Detected (NotDetected) Influenza Type B (PCR) Not Detected (NotDetected) M. pneumoniae (PCR) Not Detected (NotDetected) Parainfluenza 1 (PCR) Not Detected (NotDetected) Parainfluenza 2 (PCR) Not Detected (NotDetected) Parainfluenza 3 (PCR) Not Detected (NotDetected) Parainfluenza 4 (PCR) Not Detected (NotDetected) RSV (PCR) Not Detected (NotDetected) Entero/Rhino (PCR) Not Detected (NotDetected) Administered Medications Discontinued Medications Ceftriaxone Sodium (Rocephin) 2,000 mg in 50 mls @ 100 mls/hr IV NOW STA Stop: 03/25/24 23:58 Last Admin: 03/26/24 00:03 Dose: 100 mls/hr Documented By: MED Imaging Data Radiologist's Impression: Chest X-Ray 03/25/24 19:43 Exam(s): XR CXR 1 VIEW EXAM: XR Chest, 1 View CLINICAL HISTORY: Reason for exam: illness. TECHNIQUE: Frontal view of the chest. COMPARISON: Prior chest x-ray from September 04, 2023. FINDINGS: Lungs: Pulmonary vascular congestion with increased interstitial opacities. No consolidation. Pleural space: There is a small right pleural effusion. No pneumothorax. Heart: Mild cardiomegaly. Mediastinum: Unremarkable. Normal mediastinal contour. Bones/joints: Unremarkable. No acute fracture. IMPRESSION: Cardiomegaly with pulmonary vascular congestion and pulmonary edema with small right pleural effusion. Electronically signed by: Mague Beard MD 03/25/24 22:51 PM Discharge Plan Visit Data Chief Complaint: Illness Stated Complaint: Lightheaded, Nausea ED Provider: Crys Bland Discharge Problem: Acute exacerbation of CHF (congestive heart failure), Acute UTI (urinary tract infection), Acute kidney injury superimposed on chronic kidney disease Forms Stand Alone Forms: My [facility] Prescriptions Prescriptions: No Action amiodarone 200 mg Tablet See Taper PO BIDM Qty: 100 0RF Taper: Taper, Blank 200 mg TWICE A DAY for 23 Days 200 mg DAILY for 30 Days sennosides-docusate sodium [Senokot-S] 8.6-50 mg Tablet 1 tab PO QAM Qty: 30 0RF oxycodone 5 mg Tablet 2.5 mg PO Q6H PRN (Reason: pain) Qty: 7 0RF lactulose 10 gram/15 mL (15 mL) Solution 30 g PO DAILY PRN (Reason: constipation) Qty: 1440 0RF Advanced Probiotic 625 mg (10 billion cell) Capsule 1 cap PO DAILY Qty: 30 0RF magnesium hydroxide [Milk of Magnesia] 400 mg/5 mL Suspension 30 ml PO BID PRN (Reason: constipation) Qty: 355 0RF polyethylene glycol 3350 [Miralax] 17 gram Powder In Packet 17 g PO DAILY Qty: 30 0RF furosemide 40 mg tablet 20 mg PO 3XWK Qty: 30 0RF bupropion HCl 150 mg Tablet Sustained-Release 12 Hr 150 mg PO QAM Qty: 30 0RF Rx Instructions: TOTAL DOSE 250 MG--TAKES WITH 100 MG TAB. atorvastatin 20 mg Tablet 20 mg PO QAM Qty: 30 0RF cyanocobalamin (vitamin B-12) 1,000 mcg Tablet 1,000 mcg PO QAM Qty: 30 0RF Rx Instructions: otc unable to verify 08/13/23 bupropion HCl 100 mg Tablet Sustained-Release 12 Hr 100 mg PO QAM Qty: 30 0RF Rx Instructions: TOTAL DOSE 250 MG--TAKES WITH 150 MG TAB. famotidine [Pepcid] 20 mg Tablet 20 mg PO DAILY Qty: 30 0RF levothyroxine 50 mcg tablet 50 mcg PO QAM Qty: 30 0RF cholecalciferol (vitamin D3) [Vitamin D3] 50 mcg (2,000 unit) Tablet 50 mcg PO DAILY Qty: 30 0RF fluoxetine 60 mg Tablet 60 mg PO QAM Qty: 30 0RF mirabegron [Myrbetriq] 50 mg Tablet Extended Release 24 Hr 50 mg PO QAM Qty: 30 0RF Xultophy 100/3.6 100 unit-3.6 mg /mL (3 mL) Insulin Pen 19 unit SUBCUT DAILY Qty: 15 0RF Rx Instructions: per pharmacy -up to 50 units daily per titration. 08/13/23 Referrals Referrals: Aviva Rossi DO [Primary Care Provider] -
[2024-03-26] MEDS: cefTRIAXone SODIUM 2,000 MG/50 ML BAG IV STA (00:03)
--- OUTSIDE RECORDS SUMMARY | 2024-03-26 00:55 | External Medical Summary | Summary of Care ---
Author Name Unknown Organization [facility] Address [address] [place] [address] Phone [phone] Care Team Providers Care Mechanical Equipment Test Engineer Name Role Phone Flo Avivatita Gonzales DO Primary Care Provider Reason for Visit * Reason Onset Date Comments Follow Up 03/18/2024 Encounter Details Date Type Department Care Team (Late st Contact Info) Description 03/18/2024 1:00 PM EST Scheduled Telephone Family Practice [facility] [place] [address] [place] [address] Lisa Carmichael, CARLEE [address] [place] [address] Allergies Active Allergy Reactions Criticality Noted Date Comments Codeine 11/20/2012 Nausea and vomiting Lisinopril 06/12/2015 ?cough Penicillin G 11/20/2012 Hives Hydrocodone-Acetaminophen 11/20/2012 Nausea and vomiting documented as of this encounter (statuses as of 03/19/2024) Medications Cyanocobalamin 1000 MCG Oral Tablet (Cyanocobalamin) Take 1 Tablet by mouth daily. 03/27/19 22 Active Vision Formula Eye Health Oral Capsule Take 1 Capsule by mouth daily. 05/09/19 23 Active NovoLOG FlexPen 100 UNIT/ML Subcutaneous Solution Pen-injector (insulin aspart) INJECT WITH WITH EACH MEAL PER CARB RATIO 1:7 AND CORRECTION FACTOR 1:20>120 MAX DAILY DOSE 35 UNITS 30 mL 3 4 10:35 AM EST 10/04/19 23 Active buPROPion HCl ER (SR) 150 MG Oral Tablet Extended Release 12 Hour (Wellbutrin SR)Indications:Jasbir or depressive disorder, single episode, in partial remission (HCC) Take 1 Tablet by mouth daily. 100 Tablet 3 4 7:46 AM EDT 04/04/19 24 Active buPROPion HCl ER (SR) 100 MG Oral Tablet Extended Release 12 Hour (Wellbutrin SR)Indications:Jasbir or depressive disorder, single episode, in partial remission (HCC) Take 1 Tablet by mouth in the morning. 100 Tablet 3 4 7:46 AM EDT 04/04/19 24 Active Myrbetriq 50 MG Oral Tablet Extended Release 24 Hour (Mirabegron ER)Indications:Str ess incontinence Take 1 Tablet by mouth in the morning. 90 Tablet 3 4 8:03 AM EST 06/17/19 24 Active Vitamin D-3 125 MCG (5000 UT) Oral Tablet Take 1 Tablet by mouth in the morning. Active Acetaminophen 500 MG Oral Tablet (Tylenol) Take 1 Tablet by mouth every 4 hours as needed for Pain, Breakthrough. (Up to 3000 mg daily) Active Famotidine 20 MG Oral Tablet (Pepcid)Indication s:Gastroesophageal reflux disease, unspecified whether esophagitis present Take 1 Tablet by mouth in the morning and 1 Tablet before bedtime. 200 Tablet 3 4 2:14 PM EDT 09/16/19 24 Active Dexcom G7 Sensor Use as directed. Through DME 09/29/19 24 Active Atorvastatin Calcium 20 MG Oral Tablet (Lipitor) TAKE ONE TABLET BY MOUTH DAILY 100 Tablet 1 4 4:47 PM EDT 01/23/20 24 025 Active Pen [place] 06/06" 31G X 5 MM Use daily to inject insulin 4 times daily 400 Each 1 4 7:46 AM EST 01/23/20 24 Active FLUoxetine HCl 20 MG Oral Capsule (PROzac)Indication s:Major depressive disorder, single episode, in partial remission (HCC) Take 1 Capsule by mouth in the morning. 100 Capsule 1 4 2:37 PM EST 01/23/20 24 Active FLUoxetine HCl 40 MG Oral Capsule (PROzac)Indication s:Major depressive disorder, single episode, in partial remission (HCC) Take 1 Capsule by mouth in the morning. 100 Capsule 1 4 2:37 PM EST 01/23/20 24 Active ProAir HFA 108 (90 Base) MCG/ACT Inhalation Aerosol SolutionIndication s:Shortness of breath,History of asthma Inhale 2 Puffs by mouth 4 times a day as needed for Dyspnea. 54 g 1 4 7:46 AM EST 01/23/20 24 Active Insulin Glargine Solostar 100 UNIT/ML Subcutaneous Solution Pen-injector (Lantus SoloStar) Inject 3 Units under the skin at bedtime. Active Polyethylene Glycol 3350 17 GM/SCOOP Oral Powder (MiraLax) Take 17 g by mouth daily as needed for Constipation. 10/24/19 24 Active Sennosides-Docusat e Sodium 8.6-50 MG Oral Tablet (Senokot-S) Take 1 Tablet by mouth as needed for Constipation. 10/24/19 24 Active Benzonatate 100 MG Oral CapsuleIndications :Acute cough Take 1 Capsule by mouth 3 times a day as needed for Cough. 30 Capsule 02/03/20 24 Active Ondansetron HCl 4 MG Oral TabletIndications: Nausea Take 1 Tablet by mouth every 6 hours as needed for Nausea. 30 Tablet 02/03/20 24 Active Amiodarone HCl 200 MG Oral Tablet (Cordarone)Indicat ions:New onset atrial fibrillation (HCC) Take 1 Tablet by mouth in the morning. 100 Tablet 3 4 7:46 AM EST 02/03/20 24 Active Bumetanide 2 MG Oral Tablet Take 1 Tablet by mouth in the morning. 100 Tablet 3 4 7:46 AM EST 02/03/20 24 Active Xultophy 100-3.6 UNIT-MG/ML Subcutaneous Solution Pen-injector (Insulin Degludec-Liragluti de)Indications:Typ e 2 diabetes mellitus with hemoglobin A1c goal of less than 8.0% (HCC) Inject 20 to 30 units under the skin daily as directed per titration schedule 30 mL 3 4 2:18 PM EST 02/24/20 24 Active Additional Information Patient taking differently: 20 Units Subcutaneous Daily(Non-Specified), Inject 20 to 30 units under the skin daily as directed per titration schedule, Reported on 03/09/2024 Atorvastatin Calcium 20 MG Oral Tablet (Lipitor)Indicatio ns:Dyslipidemia Take 1 Tablet by mouth every evening. 90 Tablet 02/24/20 24 025 Active Levothyroxine Sodium 50 MCG Oral Tablet (Levoxyl)Indicatio ns:Acquired hypothyroidism Take 1 Tablet by mouth daily first thing in the morning. 100 Tablet 3 4 5:46 PM EST 02/24/20 24 Active Fluticasone-Salmet dawit 250-50 MCG/ACT Inhalation Aerosol Powder Breath Activated (Advair Diskus)Indications :History of asthma,Chronic cough Inhale 1 Puff by mouth in the morning and 1 Puff before bedtime. 200 Each 1 4 2:53 PM EST 03/09/20 24 Active Hospital, Clinic, or Other Facility Administered Medication Ordered Dose Route Frequency Start Date End Date Status Albuterol Sulfate (Proventil) (2.5 MG/3ML) 0.083% inhalation solution 2.5 mgIndications:History of asthma,Chronic cough 2.5 mg NEBULIZER ONCE PRN 03/09/2024 03/09/2025 A ctive cefTRIAXone (Rocephin) (350 mg/mL) inj dilution 1,000 mgIndications:Celluliti s of right lower extremity 1000 mg IM Q24H 03/11/2024 Active documented as of this encounter (statuses as of 03/19/2024) Active Problems Problem Noted Date Diagnosed Date Chronic kidney disease, stage 3a 03/01/2024 Overview: Per CKD protocol Body mass index (BMI) of 45.0 to 49.9 in adult 1 04/03/2023 Overview: Per Obesity protocol 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 Dx . Vocal cords. ENT in [place]. Central serous retinopathy Major depression in partial remission documented as of this encounter (statuses as of 03/19/2024) Resolved Problems Problem Noted Date Diagnosed Date Resolved Date BMI 50.0-59.9, adult 06/17/202302/04/ 024 Overview: Per Obesity protocol Ocular migraine 05/12/2022 05/12/2022 Body mass index (BMI) of 50. 0 to 59.9 in adult 12/23/2016 07/03/2023 Overview: Per Obesity protocol #1 ADVANCE DIRECTIVE INFORMATION 11/12/2013 01/26/2024 Overview (12/11/2012): No, Advance Directive brochure given to patient at prior appointment. Endometrial carcinoma 11/12/20132022 Ovarian mass 12/17/2012 07/09/2013 Overview (07/09/2013): S/p SANA BSO Endometrial thickening on ultrasound 12/17/2012 07/09/2013 Overview (07/08/2017): ICD-10 update of inactive term Postmenopausal vaginal bleeding 12/17/2012 07/09/2013 Routine general medical exam ination at a health care facility 12/17/2012 08/22/2023 Overview (01/04/2016): 01/06 JcBlair-CT chest angio WNL 10/06 EGD WNL. 01/06 EGD WNL. Consider gaviscon, Manometry 12/05 colonoscopy-5mm polyps--path---tubular adenoma. TRUONG 5 years 11/04 PFTs done. Some improvement w/albuterol. 08/04 TTE-mild delcid dysfunction 07/05 start lantus/novolog-refer MTM----, Psychiatrist. Sees Dr Witt @[facility] [phone] Morbid obesity 12/26/2016 Overview: Per Obesity protocol #1 PMB (postmenopausal bleeding) 11/12/2013 Chronic cough 08/22/2023 Productive cough 08/22/2023 Overview (12/18/2012): chronic Left knee injury 06/09/2023 Elevated WBC count 4 documented as of this encounter (statuses as of 03/19/2024) Immunizations Name Administration Dates Next Due COVID-19 mRNA, LNP-s, No Pre serve, 2-Dose Series (ipadio) 09/21/2020,05/22/2020 COVID-19, MRNA-LNP, PF, 30 M CG/0.3 mL, 12 YRS AND ABOVE, IM (PFIZER-Comirnaty) 02/03/2024,08/25/2023,01/07/2023,09/06 Covid-19, Mrna, Lnp-s, Pf, B ivalent, 30 Mcg, IM, 12 yrs and above (Pfizer) 05/09/2022 Pneumococcal Conjugate Vacci ne, 20-valent ([id number]) 05/09/2022 Pneumococcal Polysaccharide PPV23 (Pneumovax) 07/09/2013 RSV Vac., Bivalent, Perfusio n F, Pf,0.5 Ml (Abrysvo) 03/11/2023 Seasonal Influenza Vac., MDV , IM, 0.5 mL (Fluzone) 02/02/2014,12/17/2012 Seasonal Influenza, High Dos e, Trivalent, PF, IM (Fluzone HD) 02/03/2024 Seasonal Influenza, Quadriva lent Hd (Fluzone Hd) 01/07/2023,05/09/2022 Seasonal Influenza, Quadriva lent, No Preserve, IM 03/23/2018,01/18/2015 TDAP (age 10 and older)(Boostrix) 01/07/2023, Varicella [...] the money to buy more. Never true 03/09/20 24 Within the past 12 months, t he food you bought just didn't last and you didn't have money to get more. Never true 03/09/2024 Childcare Answer Date Recorded Do you feel overwhelmed with taking care of a child, family member or friend? No 03/09/2024 Does your family need help f inding childcare? (Household - for ages 0-17 years) Not on file 03/09/2024 Clothing Answer Date Recorded Have you been unable to get clothing when it was really needed? No 03/09/2024 Is your family able to get c lothes or diapers when needed? (Household - for ages 0-17 years) Not on file 03/09/2024 Personal Safety Answer Date Recorded Do you feel unsafe or have concerns for your saf ety? No 03/09/2024 Do you have concerns for you r family's safety? (Household - for ages 0-17 years) Not on file 03/09/2024 Utilities Answer Date Recorded Do you have trouble paying y our heating, water, or electric bill? No 03/09/2024 Is your family able to pay t he heat, water, or electric bill? (Household - for ages 0-17 years) Not on file 03/09/2024 Does your family have access to good internet? (Household - for ages 0-17 years) Not on file 03/09/2024 Employment Status Answer Date Recorded Are you unemployed or without regular income? No 03/09/2024 Does the household have a re gular source of income? (Household - for ages 0-17 years) Not on file 03/09/2024 Social Connections Answer Date Recorded How often do you feel lonely or isolated from th ose around you? Rarely 03/09/2024 Financial Resource Strain Answer Date R ecorded Do you have any trouble payi ng for your medications, or do you think you might in the future? No 03/09/2024 Does your family have troubl e paying for medicine? (Household - for ages 0-17 years) Not on file 03/09/2024 Transportation Needs Answer Date Record ed READ ONLY Do you have troubl e getting a ride to medical visits or work? Sometimes True 03/09/2024 Does your family have a hard time getting a ride to doctors visits? (Household - for ages 0-17 years) Not on file 03/09/2024 Has lack of transportation k ept you from medical appointments, meetings, work, or from getting things needed for daily living? Check all that apply. No 024 Do you (or your family) have trouble finding or paying for a ride (transportation)? (Household - for ages 0-17 years) Not on file 03/09/2024 Housing Stability Answer Date Recorded Do you currently live in a s helter or have no steady place to sleep at night? No 03/09/2024 READ ONLY Do you think you a re at risk of becoming homeless? No 03/09/2024 Does your family worry about paying for your home or becoming homeless? (Household - for ages 0-17 years) Not on file 1 05/10/2023 Are you homeless or worried that you might be in the future? No 03/09/2024 Are you (or your family) crystal eless or worried that you might be in the future? (Household - for ages 0-17 years) Not on file Food Insecurity Answer Date Recorded Do you need food for this week? No 03/09/2024 Are you able to get enough f ood for your family? (Household - for ages 0-17 years) Not on file 03/09/2024 Does your family need food t his week? (Household - for ages 0-17 years) Not on file 03/09/2024 Do you always have enough fo od for your family? 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 * Telephone Encounter - Lisa Carmichael RN - 03/18/2024 4:11 PM EST Status check- Pt states she is doing a little better. She feels the swelling in her legs is coming down-the left is better than the right. She thinks she can get a compression stockings on her left leg. Denies anyseeping areas on legs-states they are both dry. SH had been having some nausea but used the ondansetron and improved. She finished the antibiotic today. She continues to use the bumex 2 mg but doesn't feel it is doing a lot-not urinating a lot. States she feels that elevating her legs is helping more with the decrease in swelling. She states that no one has contacted her yet from home Health-toldwith the holiday to give it a day or so and if no contact pt should let us know-pt agreeable. PT tocall with any increase in swelling or seepage fro legs-pt agreeable-states she does not want to have to takreantibiotics or end up in hospital so she will call with any changes. FYI message forwarded to Dr Rossi. documented in this encounter Plan of Treatment Upcoming Encounters Date Type Department Care Team (Late st Contact Info) Description 03/25/2024 11:00 AM EST Home Visit [facility], [facility] [address] [facility] [place] [address] Jose Newell RN [address] [place] [address] 04/14/2024 10:00 AM EST PulmDiagnostic Pulmonary Function Lab, [facility] [address] [facility] [place] [address] [place], [address] [facility] [place] [address] 04/21/2024 4:00 PM EST Home Visit [facility], [facility] [place] [address] Jose Newell RN [address] [place] [address] 05/18/2024 2:20 PM EST Office Visit Family Practice [address] [place] [address] [address] [place] [address] Aviva Rossi DO [address] [place] [address] 05/26/2024 10:00 AM EST Office Visit Cardiology, [facility] [address] [facility] [place] [address] Leslie Jean IV, MD [address] [place] [address] 06/30/2024 10:00 AM EDT Office Visit Cardiology, [facility] [address] [facility] [place] [address] Shaw Hickey, DO 132 [facility] [place] [address] Scheduled Procedures Name Priority Associated Diagnoses Date/Ti me COLONOSCOPY FLEXIBLE PROXIMA L DIAGNOSTIC Recall History of colonic polyps Health Maintenance Due Date Last Done Comments CKD PHOS USE SMARTSET 67731 1971 Cologuard 1998 Fecal Occult Blood Test 1998 Sigmoidoscopy 1998 Adult Wellness Visit 11/06/2023 11/05/2022 Albumin/Creatinine Ratio 06/16/2024 024, 06/04/2022, 04/27/2014, Additional history exists Diabetic Foot Exam 06/16/2024 06/17/2023, 0 05/09/2022, 11/08/2015, Additional history exists GFR 08/02/2024 02/03/2024, 08/23, 08/25/2023, Additional history exists HbA1c 08/02/2024 02/03/2024, 09/22, 06/17/2023, Additional history exists Depression Monitoring 08/19/2024 08/20/2023 Diabetic Eye Exam 09/09/2024 09/10/2023, , 05/08/2023, Additional history exists CKD HGB USE SMARTSET 10389 02/02/202502/02, 02/03/2024, 08/25/2023, Additional history exists TSH 02/02/2025 02/03/2024, 05/23, 01/07/2023, Additional history exists Mammogram 02/16/2025 02/17/2024, 01/23, 06/04/2022, Additional history exists Colonoscopy 02/05/2026 02/05/2023, 08/23, 11/26/2013 Colorectal Cancer Screening 02/05/2026 Lipid Panel 04/19/2027 04/19/2022, 10/22, 02/02/2014, Additional history exists DXA Scan 05/21/2029 05/21/2022, 05/21/2022 DTap/Tdap Vaccines (3 - Td or Tdap) 01/07/2033 01/07/2023, 12/17/2012 Pneumococcal Vaccine: 50+ Years Completed 05/09/2022, 07/09/2013 Zoster Vaccines Completed 09/03/2022, 04/24, 01/18/2015 RETIRED - COLONOSCOPY-EVERY 5 YRS AGES 18-100 Discontinued 02/05/2023, 09/18/2022, 11/26/2013 COVID-19 Vaccine Completed 02/03/2024, 05/2023, 01/07/2023, Additional history exists Influenza Vaccine (FLU shot) Completed 02/03/2024, 01/07/2023, 05/09/2022, Additional history exists HPV (Gardasil) Vaccine [...] and were consensually agreed upon. Care Teams Mechanical Equipment Test Engineer Relationship Specialty Start Date End Date Aviva Rossi DO [address] [place] [address] PCP - General Family Medicine 09/09/23 documented as of this encounter
--- OUTSIDE RECORDS SUMMARY | 2024-03-26 00:56 | External Medical Summary | Summary of Care ---
Author Name Unknown Organization [facility] Address [address] [place] [address] Phone [phone] Care Team Providers Care Manager Software Development Name Role Phone Aviva Rossi DO Primary Care Provider [phone] Reason for Visit * Reason Onset Date Comments [facility]: Maintenance 03/18/2024 Encounter Details Date Type Department Care Team (Late st Contact Info) Description 03/18/2024 10:45 AM EST Scheduled Telephone [facility], [facility] [address] [place] [address] Coordinator, [facility] [address] [place] [address] Allergies Active Allergy Reactions Criticality Noted Date Comments Codeine 11/20/2012 Nausea and vomiting Lisinopril 06/12/2015 ?cough Penicillin G 11/20/2012 Hives Hydrocodone-Acetaminophen 11/20/2012 Nausea and vomiting documented as of this encounter (statuses as of 03/18/2024) Medications Cyanocobalamin 1000 MCG Oral Tablet (Cyanocobalamin) [...] PM EDT 01/23/20 24 025 Active Pen [place] 3" 31G X 5 MM Use daily [...] mouth daily as needed for Constipation. 10/24/19 Active Sennosides-Docusat e Sodium 8.6-50 MG Oral [...] Each 1 4 2:53 PM EST 03/09/20 Active Hospital, Clinic, or Other Facility Administered [...] as of this encounter (statuses as of 03/18/2024) Active Problems Problem Noted Date Diagnosed Date [...] as of this encounter (statuses as of 03/18/2024) Resolved Problems Problem Noted Date Diagnosed Date [...] Psychiatrist. Sees Dr Sanders-Lawrence @[facility] [phone] Morbid obesity 12/26/2016 Overview: Per Obesity protocol #1 PMB (postmenopausal bleeding) 11/12/2013 Chronic cough 08/22/2023 Productive cough 08/22/2023 Overview (12/18/2012): chronic Left knee injury 06/09/2023 Elevated WBC count 4 documented as of this encounter (statuses as of 03/18/2024) Immunizations Name Administration Dates Next Due COVID-19 mRNA, LNP-s, No Pre serve, 2-Dose Series (AppRedeem) 09/21/2020,05/22/2020 COVID-19, MRNA-LNP, PF, 30 M CG/0.3 mL, 12 YRS AND ABOVE, IM (PFIZER-Comirnaty) 02/03/2024,08/25/2023,01/07/2023,09/06 Covid-19, Mrna, Lnp-s, Pf, B ivalent, 30 Mcg, IM, 12 yrs and above (Pfizer) 05/09/2022 Pneumococcal Conjugate Vacci ne, 20-valent ([id number]) 05/09/2022 Pneumococcal Polysaccharide PPV23 (Pneumovax) 07/09/2013 RSV [...] encounter Miscellaneous Notes * Telephone Encounter - Lucy WrenSTEPHANIE - 03/18/2024 1:48 PM EST ising at Home Telephonic Nurse Follow-Up Call [facility] Subprogram: Primary Care at Home Follow Up Call Type: Routine follow up call / Status Check Acute issue requiring follow-up call: Other: BLE cellulitis Objective: 03/15/2024 3:04 PM 03/11/2024 2:47 PM 03/09/2024 3:08 PM 03/03/2024 3:27 PM 02/18/2024 3:42 PM VITALS ACROSS ENCOUNTERS BP 128/78 132/68 136/72 128/70 126/70 Pulse 66 84 71 80 68 Weight 124.2 kg 121.7 kg BMI 50.08 BMI 50.1 kg/m2 49.09 kg/m2 Remote Patient Monitoring: NONE Oxygen Needs: NO supplemental oxygen needs identified DME Needs: NO DME needs identified Medications: New medication(s) added: Cephalexin 500 mg BID x 7days Subjective: Condition Status: Improvement in symptoms but not at baseline Current Concerns: Spoke with pt swelling and redness to BLE has improved. RLE continues to feel warm to touch. C/O nausea the past few days. She did take zofran for nausea with improvement. Denies nausea today. Deniesincreased Sob or abdominal fullness. She completed antibiotic this morning. Wt yesterday 266.9 lb. She did not weigh this morning, wt during call weight 268lb. Reviewed low sodium diet and fluid restr iction. Encouraged to call [facility] with any concerns. Disposition: [facility] [place] [facility]or [facility] Care Team for further advice Future Visits Scheduled: Future Appointments-next 60 days Date/Time Provider Specialty Dept Phone 03/25/2024 11:00 AM Jose Newell RN [facility] [phone] 04/14/2024 10:00 AM [facility] Pulmonary Function [phone] 04/21/2024 4:00 PM Jose Newell RN [facility] [phone] 05/18/2024 2:20 PM (Arrive by 2:05 PM) Aviva Rossi DO Family Medicine [phone] 05/26/2024 10:00 AM (Arrive by 9:45 AM) Leslie Jean IV, MD Cardiology [phone] 06/30/2024 10:00 AM (Arrive by 9:45 AM) Shaw Hickey DO Cardiology [phone] Lucy Wren LPN documented in this encounter Plan of Treatment Upcoming Encounters Date Type Department Care Team (Late st Contact Info) Description 03/25/2024 11:00 AM EST Home Visit [facility], [facility] [address] [place] [address] Jose Newell RN [address] [place] [address] 04/14/2024 10:00 AM EST PulmDiagnostic Pulmonary Function Lab, [facility] [address] [place] [address] [facility] [address] [place] [address] 04/21/2024 4:00 PM EST Home Visit [facility] [place], [facility] [address] [place] [address] Jose Newell RN [address] [place] [address] 05/18/2024 2:20 PM EST Office Visit Family Practice [address] [place] [address] [address] [place] [address] Aviva Rossi, DO 293 [facility] [place] [address] 05/26/2024 10:00 AM EST [facility] [address] [place] [address] Leslie Jean IV, MD [address] [place] [address] 06/30/2024 10:00 AM EDT Office Visit [facility] [address] [place] [address] Shaw Hickey, DO [address] [place] [address] Scheduled Procedures Name Priority Associated Diagnoses Date/Ti me COLONOSCOPY FLEXIBLE PROXIMA L DIAGNOSTIC Recall History of colonic polyps Health Maintenance Due Date Last Done Comments CKD PHOS USE SMARTSET 27068 1971 Cologuard 1998 Fecal Occult Blood Test [...] Additional history exists CKD HGB USE SMARTSET 36680 02/02/202502/02, 02/03/2024, 08/25/2023, Additional history exists TSH [...] and were consensually agreed upon. Care Teams Manager Software Development Relationship Specialty Start Date End Date Aviva Rossi DO [address] [place] [place] [address] PCP - General Family Medicine 09/09/23 documented as of this encounter
--- OUTSIDE RECORDS SUMMARY | 2024-03-26 00:56 | External Medical Summary | Summary of Care ---
Author Name Unknown Organization [facility] Address [address] [place] [address] Phone [phone] Care Team Providers Care Nuclear Officer Name Role Phone Aviva Rossi DO Primary Care Provider [phone] Encounter Details Date Type Department Care Team (Late st Contact Info) Description 03/15/2024 2:30 PM EST [facility] Visit [facility], [facility] [address] [place] [address] Jose Newell, RN [address] [place] [address] Allergies Active Allergy Reactions Criticality Noted Date Comments Codeine 11/20/2012 Nausea and vomiting Lisinopril 06/12/2015 ?cough Penicillin G 11/20/2012 Hives Hydrocodone-Acetaminophen 11/20/2012 Nausea and vomiting documented as of this encounter (statuses as of 03/15/2024) Medications Cyanocobalamin 1000 MCG Oral Tablet (Cyanocobalamin) [...] PM EDT 01/23/20 24 025 Active Pen [place] 06/06" 31G X 5 MM Use daily [...] Tablet 3 4 5:46 PM EST 02/24/20 Active Fluticasone-Salmet dawit 250-50 MCG/ACT Inhalation Aerosol Powder Breath Activated (Advair Diskus)Indications :History of asthma,Chronic cough Inhale 1 Puff by mouth in the morning and 1 Puff before bedtime. 200 Each 1 4 2:53 PM EST 03/09/20 Active Cephalexin 500 MG Oral CapsuleIndications :Cellulitis of right lower extremity Take 1 Capsule by mouth in the morning and 1 Capsule before bedtime. Do all this for 7 days. 14 Capsule 03/09/20 24 024 Active Hospital, Clinic, or Other Facility Administered [...] as of this encounter (statuses as of 03/15/2024) Active Problems Problem Noted Date Diagnosed Date [...] as of this encounter (statuses as of 03/15/2024) Resolved Problems Problem Noted Date Diagnosed Date Resolved Date BMI 50.0-59.9, adult 06/17/2023 024 Overview: Per Obesity protocol Ocular migraine [...] lantus/novolog-refer MTM----, Psychiatrist. Sees Dr Sanders-Lawrence @[facility] [phone] Morbid obesity 12/26/2016 Overview: Per Obesity protocol #1 PMB (postmenopausal bleeding) 11/12/2013 Chronic cough 08/22/2023 Productive cough 08/22/2023 Overview (12/18/2012): chronic Left knee injury 06/09/2023 Elevated WBC count documented as of this encounter (statuses as of 03/15/2024) Immunizations Name Administration Dates Next Due COVID-19 mRNA, LNP-s, No Pre serve, 2-Dose Series ([employer]) 09/21/2020,05/22/2020 COVID-19, MRNA-LNP, PF, 30 M CG/0.3 mL, 12 YRS AND ABOVE, IM ([employer]Com[employer]) 02/03/2024,08/25/2023,01/07/2023,09/06 Covid-19, Mrna, Lnp-s, Pf, B ivalent, 30 Mcg, IM, 12 yrs and above ([employer]) 05/09/2022 Pneumococcal Conjugate Vacci ne, 20-valent ([id number]) 05/09/2022 Pneumococcal Polysaccharide PPV23 (Pneumovax) 07/09/2013 RSV [...] Sign Reading Time Taken Comments Blood Pressure 128/78 03/15/2024 3:04 PM EST Pulse 66 03/15/2024 3:04 PM EST Temperature 36.7 C (98.1 F) 03/15/2024 3:04 PM ES T Respiratory Rate 19 03/15/2024 3:04 PM EST Oxygen Saturation 100% 03/15/2024 3:04 PM EST Inhaled Oxygen Concentration - - Weight - - Height - - Body Mass Index - - documented in this encounter Progress Notes * Jose Newell, CARLEE - 03/15/2024 4:17 PM EST Current Concerns: Situation: Pt seen today by [facility] contracts law professor for return follow-up visit. Background: PMH includes: HTN, HLD, CATHERINE, DMtype 2, Hypothyroidism, depression, and B12 deficiency that presented to the ED with complaints of N/V, dizziness and palpitations. Assessment: Pt seen today for follow-up on BLE cellulitis and increased edema Pt started on Keflex 500 mg BID on 03/09 and completed DTP on 03/14 of metolazone 2.5 mg x 3 days Upon arrival pt frustrated that this RN mentioned questionable compliance in notation of 03/11 HV This RN discussed with pt, who has Doctorate degree and medical background, reasoning for compliance to be in question Pt agreeable that she does demonstrate some behaviors regarding medication compliance that could lead someone to believe she is non-compliant ie not having taken any medication when [facility] calls at 4:30PM, not being able to find current medications when asked to provide them Pt reports that she has been "rigidly compliant" with all meds and she too wants to get fluid off of her and resolve cellulitis Pt further states that she "enjoys peeing" because she likes to see the fluid leaving her body Following this, this RN completed bottles out med rec with pt Pt provided this RN with Keflex bottle containing 8 caps, script on bottle labeled 08/2023 Pt should have, at most 3 caps of Keflex left at time of visit, if pt has been compliant and taken as ordered Pt then provides this RN with another Keflex bottle, containing 5 caps, labeled with 03/09/2024 script Pt reports she has been compliant, but is taking medication from both bottles, so counts will not be correct This RN again discusses with pt how behavior, such as this, can make it difficult for a health careprovider to verify whether or not meds are being taken appropriately Pt recounts with this RN scenario where she has had to do pill counts with pt and states that she understands how this could be confusing Again pt reports that she has been compliant Pt reports that she does not believe Bumex 2 mg is effective as she does not feel she is urinating frequently enough after taking Pt reports she took Bumex today at 1330 and had not urinated as of 1530 At time of visit today: VS WNL Heart R&R regular Lungs clear bilaterally Pt continues to have erythema to BLE, R>L, however is decreased from this RN 03/11 visit BLE are cool to touch Anterior RLE with clear exudate draining from bulla BLE with +1/+2 pitting edema- notably decreased from 03/11 visit Pt reports weight today 271.4 lb This RN cleansed RLE, dressed with abd pad and coban Pt reports NITA bandages do not stay up on legs TT to Dr Rossi with aforesaid Per Dr Rossi, pt is to continue on maintenance dose of Bumex 2 mg and complete Keflex course by finishing bottle containing [address] Rossi also placing order for HH SN to dress and follow seeping to RLE Pt informed of this, pt should finish Keflex the morning of 03/18 This RN next availability to see pt is Mar 25, scheduled with pt for this date Will place pt on calls to follow fluid retention and cellulitis Informed pt I am not placing her on for call on [place] Pt is aware that she should call [facility] for any concerns and/or worsening, changes in symptoms Pt states she is going to her sister's for Ghassan dinner Is making a turkey and cooking it in a salt brine Reinforced that pt should be following a low Na diet Reinforced correlation between Na intake and fluid retention Pt verbalized understanding and laughed Shana, who assists pt in the home, is present at time of this RN visit Shana is working to clear a larger walkway to a doorway so that pt couch can be disposed of and pt bed can be put on first floor, where couch was Pt continues to sleep on upright wooden chair with ottoman When asked if there is a more comfortable sleeping situation that pt could access at this time, pt reports the chair and ottoman "Is ok, it's tolerable" Physical Exam: Physical Exam Cardiovascular: Rate and Rhythm: Normal rate and regular rhythm. Pulmonary: Effort: Pulmonary effort is normal. Breath sounds: Normal breath sounds. Abdominal: General: Bowel sounds are normal. Palpations: Abdomen is soft. Musculoskeletal: General: Normal range of motion. Skin: General: Skin is warm and dry. Capillary Refill: Capillary refill takes 2 to 3 seconds. Neurological: General: No focal deficit present. Mental Status: She is alert and oriented to person, place, and time. Mental status is at baseline. Psychiatric: Mood and Affect: Mood normal. Behavior: Behavior normal. Review of Systems: Review of Systems Constitutional: Negative. Negative for chills, fatigue and fever. HENT: Negative. Respiratory: Positive for cough. Negative for shortness of breath and wheezing. Cardiovascular: Positive for leg swelling (+1/+2 pitting to BLE). Gastrointestinal: Negative. Genitourinary: Negative. Musculoskeletal: Positive for gait problem. Skin: Positive for color change (erythema to BLE) and wound (anterior RLE seeping). Psychiatric/Behavioral: Negative. Care Plan Goal Progress: Patient will maintain management & treatment regimen. (Not Progressing) Start: 02/20/24 Expected End: 04/23/24 Patient will maintain adequate nutritional intake. (Not Progressing) Start: 02/20/24 Expected End: 04/23/24 Patient will achieve & maintain fluid & electrolyte balance. (Not Progressing) Start: 02/20/24 Expected End: 04/23/24 Patient will maintain & improve skin integrity. (Not Progressing) Start: 02/20/24 Expected End: 04/23/24 Patient will remain free from infection. (Not Progressing) Start: 02/20/24 Expected End: 04/23/24 Orders Placed: No orders of the defined types were placed in this encounter. Care Gaps: Care Gaps Care gaps closed this contact: Education;Plan of Care (POC);Medications;Diuretic titration protocolordered (03/15/24 164) Type of education: Clinical/disease (03/15/241642) Type of medication care gap: Medication adherence (03/15/241642) Type of plan of care (POC) care gap: Education and review of exacerbation plan (03/15/241642) documented in this encounter Plan of Treatment Upcoming Encounters Date Type Department Care Team (Late st Contact Info) Description 03/16/2024 10:00 AM EST Scheduled Telephone [facility], [place] [address] [place] [address] Coordinator, [place] [address] [address] [place] [address] 03/18/2024 10:45 AM EST Scheduled Telephone [facility], [facility] [place] [address] Coordinator, [facility] [address] [place] [address] 03/18/2024 1:00 PM EST Scheduled Telephone Family Practice [address] [place] [address] [address] [place] [address] Lisa Carmichael RN 293 [facility], [place] [id number] 03/25/2024 11:00 AM EST Home Visit [facility] [place], [facility] [address] [place] [address] Jose Newell RN [address] [place] [address] 04/14/2024 10:00 AM EST PulmDiagnostic Pulmonary Function Lab, [facility] 132 [facility] [place] [address] [address], Pft 132 [facility] [place] [address] 04/21/2024 4:00 PM EST [facility] Visit [facility], [facility] 132 [facility] [place] [address] Jose Newell, RN 132 [facility] [place] [address] 05/18/2024 2:20 PM EST Office Visit Family Practice [address] [place] [address] [address] [place] [address] Aviva Rossi DO [address] [place] [address] 05/26/2024 10:00 AM EST Office Visit Cardiology, [facility] 132 [facility] [address] Leslie Jean IV, MD [address] [place] [address] 06/30/2024 10:00 AM EDT Office Visit Cardiology, [facility] 132 [facility] [place] [address] Shaw Hickey, DO 132 [facility] [place] [address] Scheduled Procedures Name Priority Associated Diagnoses Date/Ti me COLONOSCOPY FLEXIBLE PROXIMA L DIAGNOSTIC Recall History of colonic polyps Health Maintenance Due Date Last Done Comments CKD PHOS USE SMARTSET 18165 1971 Cologuard 1998 Fecal Occult Blood Test [...] Additional history exists CKD HGB USE SMARTSET 99094 02/02/202502/02, 02/03/2024, 08/25/2023, Additional history exists TSH [...] and were consensually agreed upon. Care Teams Nuclear Officer Relationship Specialty Start Date End Date Aviva Rossi DO [address] [place] [address] PCP - General Family Medicine 09/09/23 documented as of this encounter
--- OUTSIDE RECORDS SUMMARY | 2024-03-26 00:56 | External Medical Summary | Summary of Care ---
Author Name Unknown Organization [facility] Address [address] [place] [address] Phone [phone] Care Team Providers Care Ammonia Technician Name Role Phone Aviva Rossi DO Primary Care Provider Reason for Visit * Reason Onset Date Comments [facility]: Maintenance 03/16/2024 Encounter Details Date Type Department Care Team (Late st Contact Info) Description 03/16/2024 1:15 PM EST Scheduled Telephone [facility], [facility] 132 [facility] [place] [address] [facility], Nurse [facility] 132 [facility] [place] [address] Allergies Active Allergy Reactions Criticality Noted Date Comments Codeine 11/20/2012 Nausea and vomiting Lisinopril 06/12/2015 ?cough Penicillin G 11/20/2012 Hives Hydrocodone-Acetaminophen 11/20/2012 Nausea and vomiting documented as of this encounter (statuses as of 03/16/2024) Medications Cyanocobalamin 1000 MCG Oral Tablet (Cyanocobalamin) [...] PM EDT 01/23/20 24 025 Active Pen [place] 3" 31G X 5 MM Use daily [...] as of this encounter (statuses as of 03/16/2024) Active Problems Problem Noted Date Diagnosed Date [...] as of this encounter (statuses as of 03/16/2024) Resolved Problems Problem Noted Date Diagnosed Date [...] start lantus/novolog-refer MTM----, Psychiatrist. Sees Dr Sanders-Lawrence @[facility] [phone] Morbid obesity 12/26/2016 Overview: Per Obesity protocol #1 PMB (postmenopausal bleeding) 11/12/2013 Chronic cough 08/22/2023 Productive cough 08/22/2023 Overview (12/18/2012): chronic Left knee injury 06/09/2023 Elevated WBC count 4 documented as of this encounter (statuses as of 03/16/2024) Immunizations Name Administration Dates Next Due COVID-19 mRNA, LNP-s, No Pre serve, 2-Dose Series ([employer]) 09/21/2020,05/22/2020 COVID-19, MRNA-LNP, PF, 30 M CG/0.3 mL, 12 YRS AND ABOVE, IM ([facility] 02/03/2024,08/25/2023,01/07/2023,09/06 Covid-19, Mrna, Lnp-s, Pf, B ivalent, 30 Mcg, IM, 12 yrs and above ([employer]) 05/09/2022 Pneumococcal Conjugate Vacci ne, 20-valent ([id number]) 05/09/2022 Pneumococcal Polysaccharide PPV23 (Pneumovax) 07/09/2013 RSV [...] encounter Miscellaneous Notes * Telephone Encounter - Samantha Schneider RN - 03/16/2024 10:36 AM EST [facility] Telephonic Nurse Follow-Up Call [facility] Subprogram: Primary Care at Home Follow [...] DME needs identified Medications: New medication(s) added: Pt started on Keflex 500 mg BID on 03/09 - pt has 5 caps left should complete on 03/18/24 and completed DTP on 03/14 of metolazone 2.5 mg x 3 days Continue Bumex, maintenance dose of 2mg daily Background: PMH includes: HTN, HLD, CATHERINE, DMtype 2, Hypothyroidism, depression, and B12 deficiency that presented to the ED with complaints of N/V, dizziness and palpitations. Wt Readings from Last 5 Encounters: 03/09/24 124.2 kg (273 lb 14.4 oz) 03/03/24 121.7 kg (268 lb 6.4 oz) 02/03/24 124 kg (273 lb 4.8 oz) 01/21/24 123.8 kg (273 lb) 10/01/23 124.7 kg (275 lb) Wt yesterday 271.4 lbs 03/16 270.1 lbs Subjective: Condition Status: Improvement in symptoms but not at baseline Current Concerns: Pt states that she is doing a bit better. Weight loss 1.3 lbs from yesterday. +LE edema. Pt rates at about a +2 edema Legs continue to be red and warm to touch Coban dressing on the leg, clean and dry with no drainage seeping through bandage Pt denies fever or chills SOB at baseline Cough with clear phlegm Reviewed HF symptom monitoring: -Weigh self daily [...] if at night -increased fatigue or vertigo Discussed strategies for holiday food choices and maintaining a low sodium diet. Pt aware to keep legs elevated as much as possible Disposition: Routed to [facility] and/or [facility] Care Team for further advice FC call scheduled for 03/18/24 Future Visits Scheduled: Future Appointments-next 60 days Date/Time Provider Specialty Dept Phone 03/16/2024 1:15 PM Region, Nurse [facility] [phone] 03/18/2024 10:45 AM [facility] [phone] 03/18/2024 1:00 PM Lisa Carmichael RN Family Medicine [phone] 03/25/2024 11:00 AM Jose Newell RN [facility] [phone] 04/14/2024 10:00 AM [place] Pulmonary Function [phone] 04/21/2024 4:00 PM Jose Newell RN [facility] [phone] 05/18/2024 2:20 PM (Arrive by 2:05 PM) Aviva Rossi DO Family Medicine [phone] 05/26/2024 10:00 AM (Arrive by 9:45 AM) Leslie Jean IV, MD Cardiology [phone] 06/30/2024 10:00 AM (Arrive by 9:45 AM) Shaw Hickey DO Cardiology [phone] Samantha Schneider, CARLEE documented in this encounter Plan of Treatment Upcoming Encounters Date Type Department Care Team (Late st Contact Info) Description 03/18/2024 10:45 AM EST Scheduled Telephone [facility] [place], [facility] 132 [facility] [place] [address] Coordinator, [facility] [place] [address] 03/18/2024 1:00 PM EST Scheduled Telephone Family Practice [address] [place] [address] [address] [place] [address] Lisa Carmichael, CARLEE [address] [place] [address], [place] [address] 03/25/2024 11:00 AM EST [facility] Visit [facility] 132 [facility] [place] [address] Jose Newell, CARLEE 132 [facility] [place] [address] 04/14/2024 10:00 AM EST PulmDiagnostic Pulmonary Function Lab, [facility] [address] [place] [address] [facility] Pft [facility] [place] [address] 04/21/2024 4:00 PM EST [facility] Visit [facility], [facility] [place] [address] Jose Newell, RN 132 [facility] [place] [address] 05/18/2024 2:20 PM EST Office Visit Family Practice 65 [facility] 293 [place] [address] Aviva Rossi, DO [address] [place] [address] 05/26/2024 10:00 AM EST [facility] 132 [facility] [place] [address] Leslie Jean IV, MD [address] [place] [address] 06/30/2024 10:00 AM EDT [facility] 132 [facility] [place] [address] Shaw Hickey DO 132 [facility] [place] [address] Scheduled Procedures Name Priority Associated Diagnoses Date/Ti me COLONOSCOPY FLEXIBLE PROXIMA L DIAGNOSTIC Recall History of colonic polyps Health Maintenance Due Date Last Done Comments CKD PHOS USE SMARTSET 98023 1971 Cologuard 1998 Fecal Occult Blood Test 1998 Sigmoidoscopy 1998 Adult Wellness Visit 11/06/2023 11/05/2022 Albumin/Creatinine Ratio 06/16/2024 024, 06/04/2022, 04/27/2014, Additional history exists Diabetic Foot Exam 06/16/2024 06/17/2023, 0 05/09/2022, 11/08/2015, Additional history exists GFR 08/02/2024 02/03/2024, 0607/2023, 08/25/2023, Additional history exists HbA1c 08/02/2024 02/03/2024, 09/22, 06/17/2023, Additional history exists Depression Monitoring 08/19/2024 08/20/2023 Diabetic Eye Exam 09/09/2024 09/10/2023, , 05/08/2023, Additional history exists CKD HGB USE SMARTSET 75221 02/02/202502/02, 02/03/2024, 08/25/2023, Additional history exists TSH [...] and were consensually agreed upon. Care Teams Ammonia Technician Relationship Specialty Start Date End Date Aviva Rossi DO [address] [place] [address] PCP - General Family Medicine 09/09/23 documented as of this encounter
--- OUTSIDE RECORDS SUMMARY | 2024-03-26 00:56 | External Medical Summary | Summary of Care ---
Author Name Unknown Organization [facility] Address [address] [place] [address] Phone [phone] Care Team Providers Care Director Quality Assurance Name Role Phone Flo Avivatita Gonzales DO Primary Care Provider Reason for Visit * Reason Onset Date Comments Follow Up 03/18/2024 Encounter Details Date Type Department Care Team (Late st Contact Info) Description 03/18/2024 1:00 PM EST Scheduled Telephone Family Practice 65 [facility] [place] [address] [place] [address] Lisa Carmichael, CARLEE [address] [place] [address] Allergies Active Allergy Reactions Criticality [...] PM EDT 01/23/20 24 025 Active Pen [place] 06/06" 31G X 5 MM Use daily [...] start lantus/novolog-refer MTM----, Psychiatrist. Sees Dr Witt @[facility] [phone] Morbid obesity 12/26/2016 Overview: Per Obesity protocol #1 PMB (postmenopausal bleeding) 11/12/2013 Chronic cough 08/22/2023 Productive cough 08/22/2023 Overview (12/18/2012): chronic Left knee injury 06/09/2023 Elevated WBC count 4 documented as of this encounter (statuses as of 03/18/2024) Immunizations Name Administration Dates Next Due COVID-19 mRNA, LNP-s, No Pre serve, 2-Dose Series ([employer]) 09/21/2020,05/22/2020 COVID-19, MRNA-LNP, PF, 30 M CG/0.3 mL, 12 YRS AND ABOVE, IM ([employer]Comir[employer]) 02/03/2024,08/25/2023,01/07/2023,09/06 Covid-19, Mrna, Lnp-s, Pf, B ivalent, 30 Mcg, IM, 12 yrs and above ([employer]) 05/09/2022 Pneumococcal Conjugate Vacci ne, 20-valent ([id number]) 05/09/2022 Pneumococcal Polysaccharide PPV23 (Pneumovax) 07/09/2013 RSV [...] Miscellaneous Notes * Telephone Encounter - Lisa Carmichael RN [...] so she will call with any changes. MARKI message forwarded to Dr Rossi. documented in this encounter Plan of Treatment Upcoming Encounters Date Type Department Care Team (Late st Contact Info) Description 03/25/2024 11:00 AM EST Home Visit ising at [facility] [address] [place] [address] Jose Newell RN 132 [place] [address] 04/14/2024 10:00 AM EST PulmDiagnostic Pulmonary Function Lab, [facility] 132 [facility] [place] [address] [address], [address]ft 132 [facility] [place] [address] 04/21/2024 4:00 PM EST [facility] Visit [facility], [facility] 132 [facility] [place] [address] Jose Newell, RN 132 [facility] [place] [address] 05/18/2024 2:20 PM EST Office Visit Family Practice [address] [place] [address] 293 [place] [address] Aviva Rossi DO [address] [place] [address] 05/26/2024 10:00 AM EST Office Visit Cardiology, [facility] 132 [facility] [place] [address] Leslie Jean IV, MD [address] [place] [address] 06/30/2024 10:00 AM EDT Office Visit Cardiology, [facility] 132 [facility] [place] [address] Shaw Hickey DO 132 [facility] [address] Scheduled Procedures Name Priority Associated Diagnoses Date/Ti me COLONOSCOPY FLEXIBLE PROXIMA L DIAGNOSTIC Recall History of colonic polyps Health Maintenance Due Date Last Done Comments CKD PHOS USE SMARTSET 64096 1971 Cologuard 1998 Fecal Occult Blood Test [...] Additional history exists CKD HGB USE SMARTSET 14288 02/02/202502/02, 02/03/2024, 08/25/2023, Additional history exists TSH [...] were consensually agreed upon. Care Teams Director Quality Assurance Relationship Specialty Start Date End Date Aviva Rossi DO [address] [place] [address] PCP - General Family Medicine 09/09/23 documented as of this encounter
--- OUTSIDE RECORDS SUMMARY | 2024-03-26 00:57 | External Medical Summary | Summary of Care ---
Author Name Unknown Organization [facility] Address [address] [place] [address] Phone [phone] Care Team Providers Care Bake Room Worker Name Role Phone Aviva Rossi DO Primary Care Provider Reason for Visit * Reason Onset Date Comments [facility]: Maintenance 03/15/2024 Encounter Details Date Type Department Care Team (Late st Contact Info) Description 03/15/2024 1:00 PM EST Scheduled Telephone [facility], [facility] [address] [place] [address] [facility], Nurse [facility] [address] [place] [address] Allergies Active Allergy Reactions Criticality Noted Date [...] PM EDT 01/23/20 24 025 Active Pen [place] 3" 31G X 5 MM Use daily [...] Psychiatrist. Sees Dr Sanders-Lawrence @[facility] [phone] Morbid obesity 12/26/2016 Overview: Per Obesity protocol #1 PMB (postmenopausal bleeding) 11/12/2013 Chronic cough 08/22/2023 Productive cough 08/22/2023 Overview (12/18/2012): chronic Left knee injury 06/09/2023 Elevated WBC count 4 documented as of this encounter (statuses as of 03/15/2024) Immunizations Name Administration Dates Next Due COVID-19 mRNA, LNP-s, No Pre serve, 2-Dose Series (Search[employer]) 09/21/2020,05/22/2020 COVID-19, MRNA-LNP, PF, 30 M CG/0.3 mL, 12 YRS AND ABOVE, IM ([employer]) 02/03/2024,08/25/2023,01/07/2023,09/06 Covid-19, Mrna, Lnp-s, Pf, B ivalent, 30 Mcg, IM, 12 yrs and above ([employer]) 05/09/2022 Pneumococcal Conjugate Vacci ne, 20-valent ([id number]) 05/09/2022 Pneumococcal Polysaccharide PPV23 (Pneumovax) 07/09/2013 RSV [...] encounter Miscellaneous Notes * Telephone Encounter - Roxi Everett RN - 03/15/2024 2:58 PM EST Follow up phone call not needed , scheduled for with RNCM today. Roxi Everett RN [facility] Registered Nurse Navigator Triage documented in this encounter Plan of Treatment Upcoming Encounters Date Type Department Care Team (Late st Contact Info) Description 03/18/2024 1:00 PM EST Scheduled Telephone Family Practice [address] [place] [address] [address] [place] [address] Lisa Carmichael RN 293 [facility] [place] [address] 04/14/2024 10:00 AM EST PulmDiagnostic Pulmonary Function Lab, [facility] [address] [place] [address] [address], [address] [place] [address] 04/21/2024 4:00 PM EST [facility], [facility] [address] [place] [address] Jose Newell, CARLEE 132 [facility] [address] 05/18/2024 2:20 PM EST Office Visit Family Practice [address] [place] [address] 293 [place] [address] Aviva Rossi DO 293 [facility] [place] [address] 05/26/2024 10:00 AM EST [facility] 132 [place] [address] Leslie Jean IV, MD [address] [place] [address] 06/30/2024 10:00 AM EDT Office Visit [facility] 132 [place] [address] Shaw Hickey, DO [address] [place] [address] Scheduled Procedures Name Priority Associated Diagnoses Date/Ti me COLONOSCOPY FLEXIBLE PROXIMA L DIAGNOSTIC Recall History of colonic polyps Health Maintenance Due Date Last Done Comments CKD PHOS USE SMARTSET 84662 1971 Cologuard 1998 Fecal Occult Blood Test [...] Additional history exists CKD HGB USE SMARTSET 65639 02/02/202502/02, 02/03/2024, 08/25/2023, Additional history exists TSH [...] and were consensually agreed upon. Care Teams Bake Room Worker Relationship Specialty Start Date End Date Aviva Rossi DO [address] [place] [address] PCP - General Family Medicine 09/09/23 documented as of this encounter
--- OUTSIDE RECORDS SUMMARY | 2024-03-26 00:57 | External Medical Summary | Summary of Care ---
Author Name Unknown Organization [facility] Address [address] [place] [address] Phone [phone] Care Team Providers Care Diesel Power Shovel Operator Name Role Phone Aviva Rossi DO Primary Care Provider Reason for Visit * Reason Onset Date Comments [facility]: Maintenance 03/13/2024 Encounter Details Date Type Department Care Team (Late st Contact Info) Description 03/13/2024 12:45 PM EST Scheduled Telephone [facility], [facility] 132 [facility] [place] [address] [facility], Nurse [facility] 132 [facility] [place] [address] Allergies Active Allergy Reactions Criticality Noted Date Comments Codeine 11/20/2012 Nausea and vomiting Lisinopril 06/12/2015 ?cough Penicillin G 11/20/2012 Hives Hydrocodone-Acetaminophen 11/20/2012 Nausea and vomiting documented as of this encounter (statuses as of 03/13/2024) Medications Cyanocobalamin 1000 MCG Oral Tablet (Cyanocobalamin) [...] PM EDT 01/23/20 24 025 Active Pen [place] 3" 31G X 5 MM Use daily [...] as of this encounter (statuses as of 03/13/2024) Active Problems Problem Noted Date Diagnosed Date [...] as of this encounter (statuses as of 03/13/2024) Resolved Problems Problem Noted Date Diagnosed Date [...] start lantus/novolog-refer MTM----, Psychiatrist. Sees Dr Sanders-Lawrence @[facility] [phone] Morbid obesity 12/26/2016 Overview: Per Obesity protocol #1 PMB (postmenopausal bleeding) 11/12/2013 Chronic cough 08/22/2023 Productive cough 08/22/2023 Overview (12/18/2012): chronic Left knee injury 06/09/2023 Elevated WBC count 4 documented as of this encounter (statuses as of 03/13/2024) Immunizations Name Administration Dates Next Due COVID-19 mRNA, LNP-s, No Pre serve, 2-Dose Series ([employer]) 09/21/2020,05/22/2020 COVID-19, MRNA-LNP, PF, 30 M CG/0.3 mL, 12 YRS AND ABOVE, IM ([employer]) 02/03/2024,08/25/2023,01/07/2023,09/06 Covid-19, Mrna, Lnp-s, Pf, B ivalent, 30 Mcg, IM, 12 yrs and above ([employer]) 05/09/2022 Pneumococcal Conjugate Vacci ne, 20-valent ([email or web address]) 05/09/2022 Pneumococcal Polysaccharide PPV23 (Pneumovax) 07/09/2013 RSV [...] encounter Miscellaneous Notes * Telephone Encounter - Gita Macias RN - 03/13/2024 4:20 PM EST Lisa Gamboa is scheduled for a F/u on BLE cellulitis and BLE edema. Lisa was seen for acute visit on 03/11/24 and per visit note: "Pt seen at the request of Dr Rossi as pt was seen in office 03/09 At time of OV had reported calling EMS for lift assist due to sliding off of living room couch, increased edema, and continued cough after not finishing prescribed antibiotic Pt found to have questionable compliance with diuretics, cellulitis of RLE Dr Rossi ordered Keflex 500 mg BID, Fluticasone inhaler, albuterol nebulizer, PT and to initiateDTP of double dose of Bumex 2mg x 3 days" At visit compliance with Bumex was noted to be questionable and patient had not had improvement from PCP visit. Patient was given rocephin 2 g IM and started on metolazone 2.5 mg daily x 3 days. Yesterday's call revealed no change in symptoms. Called and spoke to Lisa. She thinks she is doing a little better. Weight down from 275 lbs to 271.9 lbs. Able to elevate her legs when she sleeps on an ottoman. Does not use compression, encouraged same. States legs seemed less red today. States legs seem "less tense." States they are not as hard.She is taking the last dose of metolazone today, did not take it yet at time of call but planning to do so. Call time (4:30 PM). Instructed on management of BLE edema with compression, elevation, and a low sodium diet. Encouraged patient to call [facility] with any questions or with any new or worsening symptoms. Follow up call is scheduled for tomorrow. Gita Macias RN, BSN Respiratory Therapy Aide [facility] documented in this encounter Plan of Treatment Upcoming Encounters Date Type Department Care Team (Late st Contact Info) Description 03/14/2024 12:40 PM EST Scheduled Telephone [facility], [facility] 132 [facility] [place] [address] [facility], Nurse [facility] 132 [facility] [place] [address] 03/18/2024 1:00 PM EST Scheduled Telephone Family Practice [address] [place] [address] [address] [place] [address] Lisa Carmichael RN 293 [facility] [place] [address] 04/14/2024 10:00 AM EST PulmDiagnostic Pulmonary Function Lab, [facility] 132 [facility] [place] [address] [place], [address] 132 [facility] [place] [address] 04/21/2024 4:00 PM EST Home Visit [facility], [facility] 132 [facility] [place] [address] Jose Newell, CARLEE [address] [place] [address] 05/18/2024 2:20 PM EST Office Visit Family [address] 293 [facility] [address] Aviva Rossi, DO [address] [place] [address] 05/26/2024 10:00 AM EST Office Visit Cardiology, [facility] [address] [facility] [place] [address] Leslie Jean IV, MD [address] [place] [address] 06/30/2024 10:00 AM EDT Office Visit Cardiology, [facility] [address] [facility] [place] [address] Shaw Hickey, DO [address] [place] [address] Scheduled Procedures Name Priority Associated Diagnoses Date/Ti me COLONOSCOPY FLEXIBLE PROXIMA L DIAGNOSTIC Recall History of colonic polyps Health Maintenance Due Date Last Done Comments CKD PHOS USE SMARTSET 48014 1971 Cologuard 1998 Fecal Occult Blood Test [...] Additional history exists CKD HGB USE SMARTSET 63275 02/02/202502/02, 02/03/2024, 08/25/2023, Additional history exists TSH [...] and were consensually agreed upon. Care Teams Diesel Power Shovel Operator Relationship Specialty Start Date End Date Aviva Rossi DO [address] [place] [address] PCP - General Family Medicine 09/09/23 documented as of this encounter
--- OUTSIDE RECORDS SUMMARY | 2024-03-26 00:57 | External Medical Summary | Summary of Care ---
Author Name Unknown Organization [facility] Address [address] [place] [address] Phone [phone] Care Team Providers Care Director Of Revenue Cycle Management Name Role Phone Aviva Rossi DO Primary Care Provider [phone] Reason for Visit * Reason Onset Date Comments [facility]: Maintenance 03/12/2024 Encounter Details Date Type Department Care Team (Late st Contact Info) Description 03/12/2024 3:00 PM EST Scheduled Telephone [facility], [facility] 132 [facility] [place] [address] [facility], Nurse [facility] 132 [facility] [place] [address] Allergies Active Allergy Reactions Criticality Noted Date Comments Codeine 11/20/2012 Nausea and vomiting Lisinopril 06/12/2015 ?cough Penicillin G 11/20/2012 Hives Hydrocodone-Acetaminophen 11/20/2012 Nausea and vomiting documented as of this encounter (statuses as of 03/12/2024) Medications Cyanocobalamin 1000 MCG Oral Tablet (Cyanocobalamin) [...] PM EDT 01/23/20 24 025 Active Pen [place] 3" 31G X 5 MM Use daily [...] as of this encounter (statuses as of 03/12/2024) Active Problems Problem Noted Date Diagnosed Date [...] as of this encounter (statuses as of 03/12/2024) Resolved Problems Problem Noted Date Diagnosed Date [...] lantus/novolog-refer MTM----, Psychiatrist. Sees Dr Sanders-Lawrence @[facility] [phone] Morbid obesity 12/26/2016 Overview: Per Obesity protocol #1 PMB (postmenopausal bleeding) 11/12/2013 Chronic cough 08/22/2023 Productive cough 08/22/2023 Overview (12/18/2012): chronic Left knee injury 06/09/2023 Elevated WBC count 4 documented as of this encounter (statuses as of 03/12/2024) Immunizations Name Administration Dates Next Due COVID-19 mRNA, LNP-s, No Pre serve, 2-Dose Series ([employer]) 09/21/2020,05/22/2020 COVID-19, MRNA-LNP, PF, 30 M CG/0.3 mL, 12 YRS AND ABOVE, IM ([employer]) 02/03/2024,08/25/2023,01/07/2023,09/06 Covid-19, Mrna, Lnp-s, Pf, B ivalent, 30 Mcg, IM, 12 yrs and above ([employer]) 05/09/2022 Pneumococcal Conjugate Vacci ne, 20-valent ([id number]) 05/09/2022 Pneumococcal Polysaccharide PPV23 (Pneumovax) 07/09/2013 RSV [...] Telephone Encounter - Samantha Schneider RN - 03/12/2024 1:21 PM EST [facility] Telephonic Nurse Follow-Up Call [facility] Subprogram: Primary Care at Home Follow Up Call Type: 24 hour follow up Acute issue requiring follow-up call: Other: cellulitis RLE Objective: 03/11/2024 2:47 PM 03/09/2024 3:08 PM 03/03/2024 3:27 PM 02/18/2024 3:42 PM 02/03/2024 1:55 PM VITALS ACROSS ENCOUNTERS BP 132/68 136/72 128/70 126/70 120/74 Pulse 84 71 80 68 67 Weight 124.2 kg 121.7 kg 124 kg BMI 50.08 49.97 BMI 50.1 kg/m2 49.09 kg/m2 49.99 kg/m2 Remote Patient Monitoring: NONE Oxygen Needs: NO supplemental oxygen needs identified DME Needs: NO DME needs identified Medications: New medication(s) added: Keflex 500 mg BID Double dose Bumex 2 mg x 3 days - (pt back on regular dosing of bumex ) Metolazone 2.5 mg x 3 days- to complete sat Subjective: Condition Status: No change in symptoms Current Concerns: Spoke to the pt who states that she has no noted change in the LE edema despite taking DTP dose of Metolazone yesterday. Pt does report an increase in urine output today. States that she cleared out a spot so she will be able to elevate her legs. Will try to wrap legs with an austin wrap for some light compression. Reports no decrease in redness to the LE. Still warm to touch. Pt denies fever or chills Denies abd bloating SOB on exertion - baseline Pt states that she is monitoring her salt intake and does not eat any commercially prepared foods. Adhearing to fluid restriction. Reports compliance with abx and DTP medications Disposition: Routed to [facility] and/or [facility] Care Team for further advice and Follow up call scheduled for tomorrow with STEPH[employer] Ret[employer] Plan Specialist Future Visits Scheduled: Future Appointments-next 60 days Date/Time Provider Specialty Dept Phone 03/12/2024 3:00 PM [facility], Nurse [facility] Scout [facility] [phone] 03/13/2024 12:45 PM [facility] [phone] 03/14/2024 12:40 PM [facility] [phone] 04/14/2024 10:00 AM Scout [facility] Pulmonary Function [phone] 04/21/2024 4:00 PM Jose Newell RN [facility] [phone] 05/18/2024 2:20 PM (Arrive by 2:05 PM) Aviva Rossi DO Family Medicine [phone] 05/26/2024 10:00 AM (Arrive by 9:45 AM) Leslie Jean IV, MD Cardiology [phone] 06/30/2024 10:00 AM (Arrive by 9:45 AM) Shaw Hickey DO Cardiology [phone] Samantha Schneider, CARLEE documented in this encounter Plan of Treatment Upcoming Encounters Date Type Department Care Team (Late st Contact Info) Description 03/13/2024 12:45 PM EST Scheduled Telephone [facility] [place], [facility] 132 [facility] [place] [address] [facility], Nurse [place] 132 [facility] [place] [address] 03/14/2024 12:40 PM EST Scheduled Telephone [facility], [facility] 132 [facility] [place] [address] [facility], Nurse [facility] 132 [facility] [place] [address] 04/14/2024 10:00 AM EST PulmDiagnostic Pulmonary Function Lab, [facility] 132 [facility] [place] [address] [place], [address] 132 [facility] [place] [address] 04/21/2024 4:00 PM EST Home Visit [facility], [facility] 132 [facility] [place] [address] Jose Newell, CARLEE 132 [facility] [place] [address] 05/18/2024 2:20 PM EST Office Visit Family Practice [address] [place] [address] 293 [place] [address] Aviva Rossi, DO 293 [place] [address] 05/26/2024 10:00 AM EST Office Visit Cardiology, [facility] 132 [facility] [place] [address] Leslie Jean IV, MD [address] [place] [address] 06/30/2024 10:00 AM EDT Office Visit Cardiology, [facility] 132 [facility] [place] [address] Shaw Hickey, DO 132 [facility] [place] [address] Scheduled Procedures Name Priority Associated Diagnoses Date/Ti me COLONOSCOPY FLEXIBLE PROXIMA L DIAGNOSTIC Recall History of colonic polyps Health Maintenance Due Date Last Done Comments CKD PHOS USE SMARTSET 57054 1971 Cologuard 1998 Fecal Occult Blood Test [...] Additional history exists CKD HGB USE SMARTSET 48895 02/02/202502/02, 02/03/2024, 08/25/2023, Additional history exists TSH [...] consensually agreed upon. Care Teams Director Of Revenue Cycle Management Relationship Specialty Start Date End Date Aviva Rossi DO 293 [facility] [place] [place] [address] PCP - General Family Medicine 09/09/23 documented as of this encounter
--- OUTSIDE RECORDS SUMMARY | 2024-03-26 00:57 | External Medical Summary | Summary of Care ---
Author Name Unknown Organization [facility] Address [address] [place] [address] Phone [phone] Care Team Providers Care National Park Tour Guide Name Role Phone Aviva Rossi DO Primary Care Provider Reason for Visit * Reason Onset Date Comments [facility]: Maintenance 03/14/2024 Encounter Details Date Type Department Care Team (Late st Contact Info) Description 03/14/2024 12:40 PM EST Scheduled Telephone [facility], [facility] 132 [facility] [place] [address] [facility], Nurse [facility] 132 [facility] [place] [address] Allergies Active Allergy Reactions Criticality Noted Date Comments Codeine 11/20/2012 Nausea and vomiting Lisinopril 06/12/2015 ?cough Penicillin G 11/20/2012 Hives Hydrocodone-Acetaminophen 11/20/2012 Nausea and vomiting documented as of this encounter (statuses as of 03/14/2024) Medications Cyanocobalamin 1000 MCG Oral Tablet (Cyanocobalamin) [...] PM EDT 01/23/20 24 025 Active Pen [place] 3" 31G X 5 MM Use daily [...] as of this encounter (statuses as of 03/14/2024) Active Problems Problem Noted Date Diagnosed Date [...] as of this encounter (statuses as of 03/14/2024) Resolved Problems Problem Noted Date Diagnosed Date [...] Sanders-Lawrence @[facility] [phone] Morbid obesity 12/26/2016 Overview: Per Obesity protocol #1 PMB (postmenopausal bleeding) 11/12/2013 Chronic cough 08/22/2023 Productive cough 08/22/2023 Overview (12/18/2012): chronic Left knee injury 06/09/2023 Elevated WBC count 4 documented as of this encounter (statuses as of 03/14/2024) Immunizations Name Administration Dates Next Due COVID-19 mRNA, LNP-s, No Pre serve, 2-Dose Series ([employer]) 09/21/2020,05/22/2020 COVID-19, MRNA-LNP, PF, 30 M CG/0.3 mL, 12 YRS AND ABOVE, IM ([employer] 02/03/2024,08/25/2023,01/07/2023,09/06 Covid-19, Mrna, Lnp-s, Pf, B ivalent, 30 Mcg, IM, 12 yrs and above ([employer]) 05/09/2022 Pneumococcal Conjugate Vacci ne, 20-valent ([email or web address]) 05/09/2022 Pneumococcal Polysaccharide PPV23 (Pneumovax) 07/09/2013 RSV [...] Telephone Encounter - Gita Macias RN - 03/14/2024 11:04 AM EST Lisa Gamboa is scheduled for a F/u on BLE cellulitis and BLE edema. She was to take final dose of 3 days of metolazone 2.5 mg yesterday. Called and spoke to Lisa. She states she is doing about the same. Still taking antibiotic as directed. Took the final dose of metolazone yesterday. Reports taking bumetanide this AM as directed. Did not weigh self today but did eat and drink already. Advised that the best weight is taking in the AMafter going to the bathroom, before eating/ drinking. She reports the swelling and redness about the same as yesterday. No worsening/ no improvement. Tried to put a austin wrap on her legs but was not able to reach them well enough. Elevating legs only at night, encouraged to elevate periodically throughout the day as well. No acute concerns reported. She requests nurse call tomorrow and states "I will try to be more organized and get things done in the AM." Instructed on management of BLE edema with low sodium diet, compression, and elevation. Encouraged patient to call [facility] with any questions or with any new or worsening symptoms. Scheduled follow up call for tomorrow. Gita Macias RN, BSN Dehydrating Press Operator [facility] documented in this encounter Plan of Treatment Upcoming Encounters Date Type Department Care Team (Late st Contact Info) Description 03/15/2024 9:45 AM EST Scheduled Telephone [facility], [facility] 132 [facility] [place] [address] Coordinator, Edwar [facility] [place] [address] 03/18/2024 1:00 PM EST Scheduled Telephone Family Practice [address] [place] [address] [address] [place] [address] Lisa Carmichael, CARLEE [address] [place] [address] 04/14/2024 10:00 AM EST PulmDiagnostic Pulmonary Function Lab, [facility] 132 [facility] [place] [address] [address] 132 [facility] [place] [address] 04/21/2024 4:00 PM EST Home Visit [facility], [facility] 132 [facility] [place] [address] Jose Newell, CARLEE 132 [facility] [place] [address] 05/18/2024 2:20 PM EST Office Visit Family Practice [address] [place] [address] 293 [facility], [place] [address] Aviva Rossi DO 293 [place] [address] 05/26/2024 10:00 AM EST Office Visit Cardiology, [facility] 132 [facility] [address] Leslie Jean IV, MD [address] [place] [address] 06/30/2024 10:00 AM EDT Office Visit Cardiology, [facility] [address] [place] [address] Shaw Hickey DO [address] [place] [address] Scheduled Procedures Name Priority Associated Diagnoses Date/Ti me COLONOSCOPY FLEXIBLE PROXIMA L DIAGNOSTIC Recall History of colonic polyps Health Maintenance Due Date Last Done Comments CKD PHOS USE SMARTSET 30086 1971 Cologuard 1998 Fecal Occult Blood Test [...] Additional history exists CKD HGB USE SMARTSET 22475 02/02/202502/02, 02/03/2024, 08/25/2023, Additional history exists TSH [...] and were consensually agreed upon. Care Teams National Park Tour Guide Relationship Specialty Start Date End Date Aivva Rossi DO [address] [place] [facility] [place] [address] PCP - General Family Medicine 09/09/23 documented as of this encounter
--- OUTSIDE RECORDS SUMMARY | 2024-03-26 00:58 | External Medical Summary | Summary of Care ---
Author Name Unknown Organization [facility] Address [address] [place] [address] Phone [phone] Care Team Providers Care Epic Professional Name Role Phone Aviva Rossi DO Primary Care Provider Reason for Referral * Evaluate & Treat - Unlimited Visits (Within 10 days (routine)) - Authorized Specialty Diagnoses / Procedures Referred By Contact Referred To Contact Cardiovascular Medicine / Cardiology Diagnoses PAF (paroxysmal atrial fibrillation) ([facility]) Shaw Hickey DO [address] [place] [address] Phone: tel: fax: Leslie Jean IV, MD [address] [place] [address] Phone: tel: fax: Referral ID Status Reason Start Date Expiration Date Visits Requested Visits Authorized [id number] Authorized Specialty Services Required 4 [phone] Question Answer Referral Priority Within 10 days (routine) Where should this appointment be scheduled? [facility] To which of the following clinics are you referring your patient? Arrhythmia/Electrophysiology Clinic Comments Paroxysmal atrial fibrillation Spontaneous iliopsoas hemorrhage/hematoma while on Eliquis. Consider Watchman device implantation. Reason for Visit * Reason Comments Follow Up Encounter Details Date Type Department Care Team (Late st Contact Info) Description 03/03/2024 3:00 PM EST Office Visit Cardiology, [facility] [address] [place] [address] Shaw Hickey, [address] [place] [address] PAF (paroxysmal atrial fibrillation) ([facility])*; Hospital discharge follow-up; Hypertension goal BP (blood pressure) < 140/90 Allergies Active Allergy Reactions Criticality Noted Date Comments Codeine 11/20/2012 Nausea and vomiting Lisinopril 06/12/2015 ?cough Penicillin G 11/20/2012 Hives Hydrocodone-Acetaminophen 11/20/2012 Nausea and vomiting documented as of this encounter (statuses as of 03/03/2024) Medications Cyanocobalamin 1000 MCG Oral Tablet (Cyanocobalamin) [...] in the morning. 90 Tablet 3 4 6:07 PM EDT 06/17/19 24 Active Vitamin D-3 125 MCG [...] PM EDT 01/23/20 24 025 Active Pen [place] 3" 31G X 5 MM Use daily [...] as directed per titration schedule, Reported on 03/03/2024 Atorvastatin Calcium 20 MG Oral Tablet (Lipitor)Indicatio ns:Dyslipidemia Take 1 Tablet by mouth every evening. 90 Tablet 02/24/20 24 025 Active Levothyroxine Sodium 50 MCG Oral Tablet (Levoxyl)Indicatio ns:Acquired hypothyroidism Take 1 Tablet by mouth daily first thing in the morning. 100 Tablet 3 4 5:46 PM EST 02/24/20 24 Active documented as of this encounter (statuses as of 03/03/2024) Active Problems Problem Noted Date Diagnosed Date Body mass index (BMI) of 45.0 to [...] as of this encounter (statuses as of 03/03/2024) Resolved Problems Problem Noted Date Diagnosed Date [...] Sees Dr Sanders-Lawrence @[facility] [phone] Morbid obesity 12/26/2016 Overview: Per Obesity protocol #1 PMB (postmenopausal bleeding) 11/12/2013 Chronic cough 08/22/2023 Productive cough 08/22/2023 Overview (12/18/2012): chronic Left knee injury 06/09/2023 Elevated WBC count 4 documented as of this encounter (statuses as of 03/03/2024) Immunizations Name Administration Dates Next Due COVID-19 mRNA, LNP-s, No Pre serve, 2-Dose Series ([employer]) 09/21/2020,05/22/2020 COVID-19, MRNA-LNP, PF, 30 M CG/0.3 mL, 12 YRS AND ABOVE, IM ([facility]) 02/03/2024,08/25/2023,01/07/2023,09/06 Covid-19, Mrna, Lnp-s, Pf, B ivalent, 30 Mcg, IM, 12 yrs and above ([employer]) 05/09/2022 Pneumococcal Conjugate Vacci ne, 20-valent ([id number]) 05/09/2022 Pneumococcal Polysaccharide PPV23 (Pneumovax) 07/09/2013 RSV [...] Tobacco: Former Quit: 12/17/1990 Tobacco Cessation:Counseling Given: Not Answered Comments:quit 1990 Alcohol Use Standard Drinks/Week Comments [...] ages 0-17 years) Not on file 08/20/2023 Comments No Sex and Gender Information Value [...] Sign Reading Time Taken Comments Blood Pressure 128/70 03/03/2024 3:27 PM EST Pulse 80 03/03/2024 3:27 PM EST Temperature 36.3 C (97.3 F) 03/03/2024 3:27 PM ES T Respiratory Rate 16 03/03/2024 3:27 PM EST Oxygen Saturation 97% 03/03/2024 3:27 PM EST RA Inhaled Oxygen Concentration - - Weight 121.7 kg (268 lb 6.4 oz) 03/03/2024 3:27 PM EST Height - - Body Mass Index 49.09 02/03/2024 1:55 PM EST documented in this encounter Progress Notes * Shaw Hickey, DO - 03/03/2024 3:16 PM EST SUBJECTIVE: Patient returns today for follow-up of paroxysmal atrial fibrillation, hypertension, dyslipidemia. Hospitalized September 2023 secondary to recurrent atrial fibrillation with rapid ventricular response and spontaneous right iliopsoas hematoma while chronically anticoagulated with Eliquis 5 mg twice daily. Hemoglobin down to 8.7 grams/deciliter during hospitalization. She did not require transfusion. A nticoagulation discontinued during hospitalization. Converted to sinus rhythm with amiodarone. History of intolerance to metoprolol. Maintained on amiodarone 200 mg once daily since September. Feeling well since hospital discharge. No recurrent palpitations. Gradual weight loss noted. Tolerating Bumex 2 mg daily, however, admits to utilizing 1 mg or no Bumex to avoid dehydration. Lower extremity edema well controlled. No orthopnea or PND. Chronic cough unchanged. Denies chest discomfortor heaviness. No lightheadedness, dizziness, syncope, or near syncope. ECG: NSR, low voltage QRS, QTc 447ms Zio monitor report September 10, 2023: Patient had a min HR of 66 bpm, max HR of 207 bpm, and avg HR of 80 bpm. Predominant underlying rhythm was Sinus Rhythm. 35 Supraventricular Tachycardia runs occurred, the run with the fastest interval lasting 7 beats with a max rate of 207 bpm, the longest lasting 18 beats with an avg rate of 162 bpm. Isolated SVEs were rare (<1.0%), SVE Couplets were rare (<1.0%), and SVE Triplets were rare (<1.0%). Isolated VEs were rare (<1.0%), and no VE Couplets or VE Triplets were present. 2D echocardiogram report [facility] August 17, 2022: LVEF 60-65% Mild mitral regurgitation Normal LA size. ROS: All others negative other than those noted in the HPI. 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 NovoLOG FlexPen 100 UNIT/ML Subcutaneous Solution Pen-injector (insulin aspart) INJECT WITH WITH EACH MEAL PER CARB RATIO 1:7 AND CORRECTION FACTOR 1:20>120 MAX DAILY DOSE 35 UNITS 30 mL 3 buPROPion HCl ER (SR) 150 MG [...] mouth in the morning. 90 Tablet 3 Vitamin D-3 125 MCG (5000 UT) Oral Tablet Take 1 Tablet by mouth in the morning. Acetaminophen 500 MG Oral Tablet (Tylenol) Take 1 Tablet by mouth every 4 hours as needed for Pain,Breakthrough. (Up to 3000 mg daily) Famotidine 20 MG Oral Tablet (Pepcid) Take 1 Tablet by mouth in the morning and 1 Tablet before bedtime. 200 Tablet 3 Dexcom G7 Sensor Use as directed. Through DME Atorvastatin Calcium 20 MG Oral Tablet (Lipitor) TAKE ONE TABLET BY MOUTH DAILY 100 Tablet 1 Pen [place] 3" 31G X 5 MM Use daily to inject insulin 4 times daily 400 Each 1 FLUoxetine HCl 20 MG Oral Capsule (PROzac) Take 1 Capsule by mouth in the morning. 100 Capsule 1 FLUoxetine HCl 40 MG Oral Capsule (PROzac) Take 1 Capsule by mouth in the morning. 100 Capsule 1 ProAir HFA 108 (90 Base) MCG/ACT Inhalation Aerosol Solution Inhale 2 Puffs by mouth 4 times a day as needed for Dyspnea. 54 g 1 Insulin Glargine Solostar 100 UNIT/ML Subcutaneous Solution Pen-injector (Lantus SoloStar) Inject 5Units under the skin at bedtime. Polyethylene Glycol 3350 17 GM/SCOOP Oral Powder (MiraLax) Take 17 g by mouth daily as needed for Constipation. Sennosides-Docusate Sodium 8.6-50 MG Oral Tablet (Senokot-S) Take 1 Tablet by mouth as needed for Constipation. Benzonatate 100 MG Oral Capsule Take 1 Capsule by mouth 3 times a day as needed for Cough. 30 Capsule 0 Ondansetron HCl 4 MG Oral Tablet Take 1 Tablet by mouth every 6 hours as needed for Nausea. 30 Tablet 0 Amiodarone HCl 200 MG Oral Tablet (Cordarone) Take 1 Tablet by mouth in the morning. 100 Tablet 3 Bumetanide 2 MG Oral Tablet Take 1 Tablet by mouth in the morning. 100 Tablet 3 Xultophy 100-3.6 UNIT-MG/ML Subcutaneous Solution Pen-injector (Insulin Degludec-Liraglutide) Inject 20 to 30 units under the skin daily as directed per titration schedule 30 mL 3 Atorvastatin Calcium 20 MG Oral Tablet (Lipitor) Take 1 Tablet by mouth every evening. 90 Tablet 0 Levothyroxine Sodium 50 MCG Oral Tablet (Levoxyl) Take 1 Tablet by mouth daily first thing in the morning. 100 Tablet 3 No current facility-administered medications for this visit. Lipid Panel Results: Results for orders placed [...] Results Component Value Date/Time TSH - [facility] 4.48 (H) 02/03/2024 03:25 PM TSH - [facility] 3.70 06/17/2023 09:52 AM TSH - [facility] 4.35 (H) 01/07/2023 12:37 PM CBC Results: Results for orders placed or [...] 0 <=0 /100 WBCs OBJECTIVE/PHYSICAL EXAMINATION: BP 128/70 (BP Site: Left Arm, BP Position: Sitting, BP Cuff Size: Regular) | Pulse 80 | Temp 36.3 C (97.3 F) (Tympanic) | Resp 16 | Wt 121.7 kg (268 lb 6.4 oz) | SpO2 97% Comment: RA | BMI 49.09 kg/m | BSA 2.31 m General: NAD, AAO x3, well nourished. [...] Paroxysmal Atrial fibrillation -CHADS2 Vasc = 3 -rhythm control with amiodarone -documented beta-grady intolerance (metoprolol) -anticoagulation discontinued 09/2023 due to spontaneous iliopsoas hemorrhage/hematoma 2. Stable chronic multifactorial lower extremity edema 3. Dyslipidemia - tolerating moderate intensity statin therapy 4. History of hypothyroidism chronically treated with Synthroid 50 mcg daily prior to recent initiation of amiodarone 09/2023. -Mildly elevated TSH with normal free T4 on amiodarone therapy 5. HTN - controlled, losartan discontinued secondary to renal insufficiency during hospitalization PLAN: Natural history, pathophysiology, and stroke risk associated with paroxysmal atrial fibrillation discussed. Continue rhythm control strategy with amiodarone. Risk of chronic anticoagulation outweighsbenefit with recent hospitalization for spontaneous iliopsoas hemorrhage/hematoma with anemia. Referral placed to consider Watchman device implantation. Continue current dose of Bumex 2 mg daily. Diuretic protocol reviewed. Monitor daily weight. Patient may take additional 2mg of Bumex if weight increases more than 2 lb in a 48 hour period, or 5 lb in 1 week. Sodium restriction advised. Continue atorvastatin as ordered. Losartan will remain on hold for the time being, however, consider restarting reduced dose (12.5 mgdaily) in the future. All questions answered to patient's satisfaction. Follow Up: Return in about 3 months (around 06/01/2024). I spent a total of 40-54 minutes (exact time 42 mins) on the date of service in preparation, delivery, and documentation of the care provided to Lisa Gamboa excluding any time spent in the performance of separately billed services. Shaw Hickey DO, [facility] Associate Cardiology - Elida Ruiz documented in this encounter Nursing Notes * Lary Nesbitt CMA - 03/03/2024 3:26 PM EST Examination Room: 11 Name: Lisa Gamboa Date of : (1955). Reason for Visit: 2M f/u Interim Hospitalization(s): [facility] 10/11-10/23 Problems/Concerns: Denies further episodes of afib since hospital stay. Wishes to discuss Watchman.Also concerned about kidney function. Chest Pain/SOB: Denies CP. Some increased SOB with cough x4-6 weeks. [facility] Discussed: No [facility] is a way you can talk to your provider online through e-mail. Would you like to sign up? I can activate it for you? ALREADY ACTIVE Patient was instructed to not get up on the exam table until directed and assisted by their provider; patient is to remain seated in the chair/ wheelchair/ exam table for fall prevention and safety reasons. Patient is aware to have assistance to step down off exam table with personnel. Patient voiced full comprehension of instructions. documented in this encounter Plan of Treatment Upcoming Encounters Date Type Department Care Team (Late st Contact Info) Description 03/09/2024 3:00 PM EST Office Visit Family Practice [address] [place] [address] [address] [place] [address] Aviva Rossi DO [address] [place] [address] 04/21/2024 4:00 PM EST [facility] Visit [facility] [address] [place] [address] Jose Newell, CARLEE [address] [facility] [place] [address] 05/26/2024 10:00 AM EST [facility] [address] [place] [address] Leslie Jean IV, MD [address] [place] [address] 06/30/2024 10:00 AM EDT [facility] [address] [facility] [address] Shaw Hickey DO [address] [place] [address] Scheduled Orders Name Type Priority Associated Diagnoses Orde r Schedule EKG EKG Routine PAF (paroxysmal atrial fibrillation) (HCC) Ordered: 03/03/2024 Scheduled Procedures Name Priority Associated Diagnoses Date/Ti me COLONOSCOPY FLEXIBLE PROXIMA L DIAGNOSTIC Recall History of colonic polyps Scheduled Referrals Name Type Priority Associated Diagnoses Orde r Schedule CARDIOLOGY REFERRAL OP Referral Within 10 days (routine) PAF (paroxysmal atrial fibrillation) (HCC) Ordered: 03/03/2024 Health Maintenance Due Date Last Done Comments Cologuard 1998 Fecal Occult Blood Test 1998 Sigmoidoscopy 1998 Adult Wellness Visit 11/06/2023 11/05/2022 Albumin/Creatinine Ratio 06/16/2024 024, 06/04/2022, 04/27/2014, Additional history exists Diabetic Foot Exam 06/16/2024 06/17/2023, 0 05/09/2022, 11/08/2015, Additional history exists HbA1c 08/02/2024 02/03/2024, 072 04/2023, 06/17/2023, Additional history exists Depression Monitoring 08/19/2024 08/20/2023 Diabetic Eye Exam 09/09/2024 09/10/2023, , 05/08/2023, Additional history exists GFR 02/02/2025 02/03/2024, 08/23, 08/25/2023, Additional history exists TSH 02/02/2025 02/03/2024, [...] hypertension documented in this encounter Advance Directives * [...] and were consensually agreed upon. Care Teams Epic Professional Relationship Specialty Start Date End Date Aviva Rossi DO [address] [place] [address] PCP - General Family Medicine 09/09/23 documented as of this encounter
--- OUTSIDE RECORDS SUMMARY | 2024-03-26 00:58 | External Medical Summary | Summary of Care ---
Author Name Unknown Organization [facility] Address [address] [place] [address] Phone [phone] Care Team Providers Care Mate Ship Name Role Phone Aviva Rossi DO Primary Care Provider Encounter Details Date Type Department Care Team (Late st Contact Info) Description 03/11/2024 11:00 AM EST Home Visit [facility], [facility] [address] [place] [address] Jose Newell, RN [address] [place] [address] Arrived Allergies Active Allergy Reactions Criticality Noted Date Comments Codeine 11/20/2012 Nausea and vomiting Lisinopril 06/12/2015 ?cough Penicillin G 11/20/2012 Hives Hydrocodone-Acetaminophen 11/20/2012 Nausea and vomiting documented as of this encounter (statuses as of 03/11/2024) Medications Cyanocobalamin 1000 MCG Oral Tablet (Cyanocobalamin) [...] Oral Tablet Extended Release 12 Hour (Wellbutrin SR)Indications:Jasibr or depressive disorder, single episode, in partial [...] PM EDT 01/23/20 24 025 Active Pen Brighton 06/06" 31G X 5 MM Use daily [...] extremity 1000 mg IM Q24H 03/11/2024 Active Lidocaine 1 % (PF) inj 2.1 mLIndications:Celluliti s of right lower extremity 2.1 mL IM ONCE 03/11/2024 03/12/2024 Active documented as of this encounter (statuses as of 03/11/2024) Active Problems Problem Noted Date Diagnosed Date [...] as of this encounter (statuses as of 03/11/2024) Resolved Problems Problem Noted Date Diagnosed Date [...] 10/06 EGD WNL. 01/06 EGD WNL. Consider gavisalejo, Manometry 12/05 colonoscopy-5mm polyps--path---tubular adenoma. TRUONG 5 years 11/04 PFTs done. Some improvement w/albuterol. 08/04 TTE-mild delcid dysfunction 07/05 start lantus/novolog-refer MTM----, Psychiatrist. Sees Dr Sanders-Lawrence @[facility] [phone] Morbid obesity 12/26/2016 Overview: Per Obesity protocol #1 PMB (postmenopausal bleeding) 11/12/2013 Chronic cough 08/22/2023 Productive cough 08/22/2023 Overview (12/18/2012): chronic Left knee injury 06/09/2023 Elevated WBC count 4 documented as of this encounter (statuses as of 03/11/2024) Immunizations Name Administration Dates Next Due COVID-19 mRNA, LNP-s, No Pre serve, 2-Dose Series ([employer]) 09/21/2020,05/22/2020 COVID-19, MRNA-LNP, PF, 30 M CG/0.3 mL, 12 YRS AND ABOVE, IM ([facility]) 02/03/2024,08/25/2023,01/07/2023,09/06 Covid-19, Mrna, Lnp-s, Pf, B ivalent, 30 Mcg, IM, 12 yrs and above ([employer]) 05/09/2022 Pneumococcal Conjugate Vacci ne, 20-valent ([id number]) 05/09/2022 Pneumococcal Polysaccharide PPV23 (Pneumovax) 07/09/2013 RSV [...] Sign Reading Time Taken Comments Blood Pressure 132/68 03/11/2024 2:47 PM EST Pulse 84 03/11/2024 2:47 PM EST Temperature 36.4 C (97.6 F) 03/11/2024 2:47 PM ES T Respiratory Rate 18 03/11/2024 2:47 PM EST Oxygen Saturation 95% 03/11/2024 2:47 PM EST Inhaled Oxygen Concentration - - Weight - - Height - - Body Mass Index - - documented in this encounter Progress Notes * Jose Newell, RN - 03/11/2024 2:32 PM EST Images from the original note were not included. Current Concerns: Situation: Pt seen today by [facility] database administration associate for acute visit. Background: PMH includes: HTN, HLD, CATHERINE, DMtype 2, Hypothyroidism, depression, and B12 deficiency that presented to the ED with complaints of N/V, dizziness and palpitations. Assessment: Pt seen at the request of Dr Rossi [...] double dose of Bumex 2mg x 3 days At time of visit today: VS WNL Heart R&R regular Lungs clear bilaterally Erythema to BLE, R>L +2 pitting edema to BLE Anterior RLE with small fluid filled bulla Pt presented this RN with Keflex bottle Pt states she has taken 2 days worth of Keflex with no improvement in RLE and worsening of LLE erythema 10 pills left in Keflex bottle, supports that pt has removed two days of BID dosing When this RN asked pt to provide Bumex bottle/pills pt reports that she has taken all Bumex out of pill box and had very difficult time finding Bumex bottle in the home Pt was able to provide Bumex bottle after significant amount of time looking Compliance questionable however pt reports that she has not missed doses TT to Dr Rossi with aforesaid information TT to [facility] Dr Garsia with same- Dr Rossi answered shortly after TT to Dr Ady Rossi gave orders for Rochephin 2 G IM and Metolazone 2.5 mg daily x 3 days This RN reconstituted Rochephin 2 gm with Lidocaine 5 cc Administered Rocephin in two separate sites, first injection to R glute and second to L glute Pt tolerated without difficulty Is to continue taking Keflex as well Pt took first dose of Metolazone at time of visit Pt should finish Metolazone DTP on Sat 03/14 Phone calls for follow up scheduled for next 3 days Pt to start PT with [facility] in home, have contacted pt but have not established Pt has a broken couch that she is unable to get out of home due to hoarding Pt is unable to get off of the couch when she sits or lies on it Advised to clear space to bring a recliner into home Pt home continues to be severely hoarded Pt working with private paid aide, Shana who is coming twice weekly to assist in organization anddecluttering Pt reports Shana's last visit was 2 days ago, on 03/09 At time of visit there are multiple bags of fresh foods such as spinach, onions, sitting on floor of pt home Physical Exam: Physical Exam Constitutional: Appearance: She is obese. Cardiovascular: Rate and [...] Review of Systems: Review of Systems Constitutional: Negative for chills, fatigue and fever. HENT: Negative. Negative for sinus pressure and sinus pain. Respiratory: Positive for cough. Negative for shortness of breath and wheezing. Cardiovascular: Positive for leg swelling (+2 pitting to BLE). Gastrointestinal: Negative. Genitourinary: Negative. Musculoskeletal: Positive for gait problem. Skin: Positive for color change (Erythema to BLE). Neurological: Negative for dizziness, syncope and headaches. Psychiatric/Behavioral: Negative. Care Plan Goal Progress: Patient [...] gaps closed this contact: Education;Plan of Care (POC);Medications;Home based procedures;Diuretic titration protocol ordered (03/11/241558) Type of education: Clinical/disease (03/11/241558) Procedure performed: IM injection (03/11/241558) Type of medication care gap: Medication adherence (03/11/241558) Type of plan of care (POC) care gap: Education and review of exacerbation plan (03/11/241558) documented in this encounter Plan of Treatment Upcoming Encounters Date Type Department Care Team (Late st Contact Info) Description 03/12/2024 11:15 AM EST Scheduled Telephone [facility], [facility] [address] [facility] [place] [address] Coordinator, [facility] [place] [address] 03/13/2024 12:45 PM EST Scheduled Telephone [facility], [facility] [address] [facility] [place] [address] [facility], Nurse [address] [place] [address] 03/14/2024 12:40 PM EST Scheduled Telephone [facility], [facility] [address] [facility] [place] [address] [facility], Nurse [address] [place] [address] 04/14/2024 10:00 AM EST PulmDiagnostic Pulmonary Function Lab, [facility] [address] [facility] [place] [address] [facility] [address] [facility] [place] [address] 04/21/2024 4:00 PM EST Home Visit [facility], [facility] [address] [facility] [place] [address] Jose Newell, RN 132 [facility] [place] [address] 05/18/2024 2:20 PM EST Office Visit Family Practice [address] [place] [address] 293 [facility], [place] [address] Aviva Rossi DO 293 [facility], [place] [address] 05/26/2024 10:00 AM EST Office Visit Cardiology, [facility] [address] [facility] [place] [address] Leslie Jean IV, MD [address] [place] [address] 06/30/2024 10:00 AM EDT Office Visit Cardiology, [facility] [address] [facility] [place] [address] Shaw Hickey, [address] [place] [address] Scheduled Procedures Name Priority Associated Diagnoses Date/Ti me COLONOSCOPY FLEXIBLE PROXIMA L DIAGNOSTIC Recall History of colonic polyps Health Maintenance Due Date Last Done Comments CKD PHOS USE SMARTSET 15480 1971 Cologuard 1998 Fecal Occult Blood Test [...] Additional history exists CKD HGB USE SMARTSET 37075 02/02/202502/02, 02/03/2024, 08/25/2023, Additional history exists TSH [...] and were consensually agreed upon. Care Teams Mate Ship Relationship Specialty Start Date End Date Aviva Rossi DO [address] [place] [place] [address] PCP - General Family Medicine 09/09/23 documented as of this encounter
--- OUTSIDE RECORDS SUMMARY | 2024-03-26 00:58 | External Medical Summary | Summary of Care ---
Author Name Unknown Organization [facility] Address [address] [place] [address] Phone [phone] Care Team Providers Care Slitter And Rewinder Machine Operator Name Role Phone Aviva Rossi DO Primary Care Provider [phone] Reason for Visit * Reason Onset Date Comments [facility]: Maintenance 03/05/2024 Encounter Details Date Type Department Care Team (Late st Contact Info) Description 03/05/2024 Telephone [facility], [place] [address] [place] [address] Angelina Llamas, CARLEE [address] [place] [address] [place] [address] [facility]: Maintenance Allergies Active Allergy Reactions Criticality Noted Date Comments Codeine 11/20/2012 Nausea and vomiting Lisinopril 06/12/2015 ?cough Penicillin G 11/20/2012 Hives Hydrocodone-Acetaminophen 11/20/2012 Nausea and vomiting documented as of this encounter (statuses as of 03/05/2024) Medications Cyanocobalamin 1000 MCG Oral Tablet (Cyanocobalamin) [...] PM EDT 01/23/20 24 025 Active Pen Warren 06/06" 31G X 5 MM Use daily [...] g 1 4 7:46 AM EST 01/23/20 Active Insulin Glargine Solostar 100 UNIT/ML Subcutaneous [...] as of this encounter (statuses as of 03/05/2024) Active Problems Problem Noted Date Diagnosed Date [...] as of this encounter (statuses as of 03/05/2024) Resolved Problems Problem Noted Date Diagnosed Date [...] Sees Dr Sanders[facility]Lawrence @[facility] [phone] Morbid obesity 12/26/2016 Overview: Per Obesity protocol #1 PMB (postmenopausal bleeding) 11/12/2013 Chronic cough 08/22/2023 Productive cough 08/22/2023 Overview (12/18/2012): chronic Left knee injury 06/09/2023 Elevated WBC count 4 documented as of this encounter (statuses as of 03/05/2024) Immunizations Name Administration Dates Next Due COVID-19 mRNA, LNP-s, No Pre serve, 2-Dose Series ([employer]) 09/21/2020,05/22/2020 COVID-19, MRNA-LNP, PF, 30 M CG/0.3 mL, 12 YRS AND ABOVE, IM ([employer]Comirnaty) 02/03/2024,08/25/2023,01/07/2023,09/06 Covid-19, Mrna, Lnp-s, Pf, B ivalent, 30 Mcg, IM, 12 yrs and above ([employer]) 05/09/2022 Pneumococcal Conjugate Vacci ne, 20-valent ([id number]) 05/09/2022 Pneumococcal Polysaccharide PPV23 (Pneumovax) 07/09/2013 RSV [...] encounter Miscellaneous Notes * Telephone Encounter - Angelina Llamas RN - 03/05/2024 4:36 PM EST Phone call from patient stating she received a new scale from [employer] [facility] and needs to have helpsetting it up so she can send the data to [facility] and her phone. Patient requesting phone number for [employer].. Phone number provided was [phone] or [phone] TIMO Ivan Registered Nurse Navigator Triage [facility] documented in this encounter Plan of Treatment Upcoming Encounters Date Type Department Care Team (Late st Contact Info) Description 03/09/2024 3:00 PM EST Office Visit Family Practice [address] [place] [address], [place] [address] [place] [address] Aviva Rossi DO [address] [place] [address] 04/21/2024 4:00 PM EST Home Visit [facility], [facility] 132 [facility] [place] [address] Jose Newell, CARLEE 132 [place] [address] 05/26/2024 10:00 AM EST [facility] [address] Leslie Jean IV, MD [address] [place] [address] 06/30/2024 10:00 AM EDT [facility] 132 [facility] [place] [address] Shaw Hickey DO 132 [facility] [place] [address] Scheduled Procedures Name Priority Associated Diagnoses Date/Ti [...] and were consensually agreed upon. Care Teams Slitter And Rewinder Machine Operator Relationship Specialty Start Date End Date Aviva Rossi DO [address] [place] [address] PCP - General Family Medicine 09/09/23 documented as of this encounter
--- OUTSIDE RECORDS SUMMARY | 2024-03-26 00:58 | External Medical Summary | Summary of Care ---
Author Name Unknown Organization [facility] Address [address] [place] [address] Phone [phone] Care Team Providers Care Concrete Float Maker Name Role Phone Aviva Rosis DO Primary Care Provider [phone] Reason for Referral * Evaluate & Treat - Unlimited Visits (Within 30 days (routine)) - Authorized Specialty Diagnoses / Procedures Referred By Angel amaya Referred To Contact Physical Therapy / Physical Medicine And Rehab Diagnoses Other abnormalities of gait and mobility Aviva Rossi DO [address] [place] [address] Phone: tel: fax: Referral ID Status Reason Start Date Expiration Date Visits Requested Visits Authorized [id number] Authorized Specialty Services Required 4 [phone] Question Answer Referral Priority Within 30 days (routine) Where should this appointment be scheduled? Vivek Comments Powerback Reason for Visit * Reason Comments Follow Up Encounter Details Date Type Department Care Team (Latest Contact Info) Description 03/09/2024 3:00 PM EST Office Visit Family Practice [address] [facility], [place] [address] [place] [phone] Aviva Rossi DO [address] [place] [address] History of asthma*; Chronic cough; Cellulitis of right lower extremity; Other abnormalities of gait and mobility Allergies Active Allergy Reactions Criticality Noted Date Comments Codeine 11/20/2012 Nausea and vomiting Lisinopril 06/12/2015 ?cough Penicillin G 11/20/2012 Hives Hydrocodone-Acetaminophen 11/20/2012 Nausea and vomiting documented as of this encounter (statuses as of 03/09/2024) Medications Cyanocobalamin 1000 MCG Oral Tablet (Cyanocobalamin) [...] PM EDT 01/23/20 24 025 Active Pen [place] 3/16" 31G X 5 MM Use daily [...] Tablet 3 4 7:46 AM EST 02/03/20 Active Bumetanide 2 MG Oral Tablet Take 1 Tablet by mouth in the morning. 100 Tablet 3 4 7:46 AM EST 02/03/20 Active Xultophy 100-3.6 UNIT-MG/ML Subcutaneous Solution Pen-injector (Insulin Degludec-Liragluti de)Indications:Typ e 2 diabetes mellitus with hemoglobin A1c goal of less than 8.0% (HCC) Inject 20 to 30 units under the skin daily as directed per titration schedule 30 mL 3 4 2:18 PM EST 02/24/20 Active Additional Information Patient taking differently: 20 [...] 1 Puff before bedtime. 200 Each 1 03/09/20 Active Cephalexin 500 MG Oral CapsuleIndications [...] NEBULIZER ONCE PRN 03/09/2024 03/09/2025 A ctive documented as of this encounter (statuses as of 03/09/2024) Active Problems Problem Noted Date Diagnosed Date [...] as of this encounter (statuses as of 03/09/2024) Resolved Problems Problem Noted Date Diagnosed Date [...] lantus/novolog-refer MTM----, Psychiatrist. Sees Dr Sanders-Lawrence [facility] [phone] Morbid obesity 12/26/2016 Overview: Per Obesity protocol #1 PMB (postmenopausal bleeding) 11/12/2013 Chronic cough 08/22/2023 Productive cough 08/22/2023 Overview (12/18/2012): chronic Left knee injury 06/09/2023 Elevated WBC count 4 documented as of this encounter (statuses as of 03/09/2024) Immunizations Name Administration Dates Next Due COVID-19 mRNA, LNP-s, No Pre serve, 2-Dose Series (Strap) 09/21/2020,05/22/2020 COVID-19, MRNA-LNP, PF, 30 M CG/0.3 mL, 12 YRS AND ABOVE, IM ([facility]) 02/03/2024,08/25/2023,01/07/2023,09/06 Covid-19, Mrna, Lnp-s, Pf, B ivalent, 30 Mcg, IM, 12 yrs and above (Strap) 05/09/2022 Pneumococcal Conjugate Vacci ne, 20-valent ([id number]) 05/09/2022 Pneumococcal Polysaccharide PPV23 (Pneumovax) 07/09/2013 RSV [...] 03/09/2024 Does the household have a re lar [...] Sign Reading Time Taken Comments Blood Pressure 136/72 03/09/2024 3:08 PM EST Pulse 71 03/09/2024 3:08 PM EST Temperature 36.7 C (98.1 F) 03/09/2024 3:08 PM ES T Respiratory Rate 14 03/09/2024 3:08 PM EST Oxygen Saturation 99% 03/09/2024 3:08 PM EST Inhaled Oxygen Concentration - - Weight 124.2 kg (273 lb 14.4 oz) 03/09/2024 3:08 PM EST Height 157.5 cm (5' 2") 03/09/2024 3:08 PM EST Body Mass Index 50.1 03/09/2024 3:08 PM EST documented in this encounter Progress Notes * Aviva Rossi, DO - 03/09/2024 2:51 PM EST SUBJECTIVE: Chief Complaint Patient presents with Follow Up HPI: Lisa Gamboa is a 69 year old female who presents today for follow-up. Pt notes that she has had increased swelling. She is sleeping on a couch in her living room. It is broken. She has not been able to get off of the couch. She had to call EMS because she slid on the floor. She had to callthem a second time to get her up off the couch. She is sitting and sleeping in another chair that supports her head. There is not enough space to get her couch out and get another in. She has an aide, Shana, who is coming twice a week for 4-6 hours to help with things. Pt states she has been taking her Bumex regularly "except for two doses". She has not yet had it today, however. She states she was moving things around. She states that the swelling started about 3-4 days ago. Weight up nearly 6lbs since 03/03. She has not been transmitting numbers with her scale.She states she hasn't gotten around to calling. She states she has difficulty balancing on the scale. She notes she continues to cough. She did not finish the antibiotic as prescribed. She states that the antibiotic made her throw up. Did not let us know this. Advised inhaled steroid but she states that this effects her emotionally. She states that she has a history of cough syncope. She states noth ing now but she is "graying out". 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 200 Tablet 3 DexMPSTOR G7 Sensor Use as directed. Through DME Atorvastatin Calcium 20 MG Oral Tablet (Lipitor) TAKE ONE TABLET BY MOUTH DAILY 100 Tablet 1 FLUoxetine HCl 20 MG Oral Capsule [...] UNIT/ML Subcutaneous Solution Pen-injector (Lantus SoloStar) Inject 3Units under the skin at bedtime. Polyethylene Glycol [...] skin daily as directed per titration schedule (Patient taking differently: Inject 20 Units under the skin daily. Inject 20 to 30 units under the skin daily as directed per titration schedule) 30 mL 3 Levothyroxine Sodium 50 MCG Oral Tablet (Levoxyl) Take 1 Tablet by mouth daily first thing in the morning. 100 Tablet 3 Pen [place] 06/06" 31G X 5 MM Use daily to inject insulin 4 times daily 400 Each 1 Atorvastatin Calcium 20 MG Oral Tablet (Lipitor) Take 1 Tablet by mouth every evening. 90 Tablet 0 No current facility-administered medications for this visit. 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 Chronic cough DM (diabetes mellitus) ([facility]) Elevated WBC count 80s Endometrial cancer ([facility]) Ex-smoker 09/03/2013 IBS (irritable bowel syndrome) Left knee injury meniscus tear, medial condyle fracutre Major depression in partial remission ([facility]) Microalbuminuric diabetic nephropathy ([facility]) 04/28/2014 Morbid obesity ([facility]) Myasthenia gravis ([facility]) Ocular migraine Productive cough chronic PSVT (paroxysmal supraventricular tachycardia) ([facility]) 80s due to albuterol, theophylline Pyelonephritis [address] [place] [address] Sleep apnea Sleep apnea, obstructive Stress incontinence Past Surgical History: Procedure Laterality Date , INDUCED BY D&C COLONOSCOPY, DIAGNOSTIC (RECTUM) N/A 09/18/2022 hemorrhoids/multiple polyps/biopsies show adenomatous and tubulovillous adenoma/recall 3 months/colonoscopy/[place] COLONOSCOPY, DIAGNOSTIC (RECTUM) N/A 02/05/2023 hemorrhoids/recall 3 years/Colonoscopy/[place] DENTAL SURGERY PROCEDURE NEC EGD, FLEXIBLE, DIAGNOSTIC 09/27/2015 normal/[facility] LAPAROSCOPY TOTAL HYSTX, UTERUS 250GM OR LESS TUBE/OVARY 02/02/2013 LAPAROSCOPIC HYSTERECTOMY REMOVAL TUBES AND OVARIES FOR UTERUS 250GM OR LESS performed by Elizabeth Phillips DO at [place] [facility] Review of patient's allergies indicates: Allergen Reactions Codeine Nausea and vomiting Lisinopril ?cough Penicillin G Hives Vicodin [Hydrocodone-Acetaminophen] Nausea and vomiting Family History Problem Relation Name Age of Onset Glaucoma Mother Heart Disorder Mother Allergies Mother PCN, sulfa Arthritis Mother DJD, Spondylolisthesis Renal Hx Mother h/o pyelonephritis Eye Problems Mother Wet ARMD Stroke Father Demented Hypertension Father late onset Neurological Disorder Father Vascular Dementia Atrial fibrillation Father Stroke Grandmother (Maternal) Stroke Grandfather (Maternal) Hypertension Grandmother (Paternal) Parkinsonism Grandfather (Paternal) Breast Cancer No significant family history Family [...] color change, pallor and rash. OBJECTIVE: BP 136/72 (BP Site: Left Arm, BP Position: Sitting, BP Cuff Size: Large) | Pulse 71 | Temp 98.1 F(36.7 C) (Tympanic) | Resp 14 | Ht 5' 2" (1.575 m) | Wt 273 lb 14.4 oz (124.2 kg) | SpO2 99% | BMI 50.10 kg/m | BSA 2.33 m PHYSICAL EXAM: Physical Exam Constitutional: General: [...] range of motion. Right lower leg: Edema (+2-3 pitting) present. Left lower leg: Edema (+2-3 pitting) present. Skin: General: Skin is warm and dry. Coloration: Skin is not pale. Findings: Erythema (significant to RLE with warmth, some on left) present. No rash. Neurological: Mental Status: She is alert and oriented to person, place, and time. ASSESSMENT/PLAN: (Z87.09) History of asthma (primary encounter diagnosis) R05.3) Chronic cough Plan: SPIROMETRY B/A BRONCHODILATOR, Albuterol Sulfate (Proventil) (2.5 MG/3ML) 0.083% inhalation solution 2.5 mg, LUNG VOLUMES (PLETHYSMOGRAPHY), DIFFUSION CAPACITY (DLCO), Fluticasone-Salmeterol 250-50 MCG/ACT Inhalation Aerosol Powder Breath Activated (Advair Diskus) Likely secondary to uncontrolled asthma. Pt previously refused inhaled steroid. Reviewed that this is next step. Will check PFT. Suspect allergy component given hoarding at home. May consider additional inhalers vs Singulair. Will see how she does with inhaled steroid. (L03.115) Cellulitis of right lower extremity Plan: Cephalexin 500 MG Oral Capsule Pt will start keflex. Advised to double dose of Bumex next 3 days given increased swelling. ?her compliance with the bumex. Will ask [facility] to recheck later in week. (R26.89) Other abnormalities of gait and mobility Plan: PHYSICAL THERAPY REFERRAL OP Pt has apparently called EMS twice with difficulty getting off her broken couch. Will ask Powerbackto start working with pt in home. Strongly advised she get recliner moved into home so she can elevate her legs and so she has a safe place to sit. Follow-up: 2 months Total time today including reviewing chart before the visit, pertinent labs, imaging reports, face to face time, and documentation time was 37 minutes. Aviva Rossi DO documented in this encounter Nursing Notes * Michelle Tim LPN - 03/09/2024 3:06 PM EST Patient here for follow up visit. Reports she is having pain in pelvic floor that radiates to her vulva. States this has been ongoing since bleed. States she is sleeping on a couch that is falling apart - working on getting a bed to replace the couch. Reports increased edema in legs. documented in this encounter Plan of Treatment Upcoming Encounters Date Type Department Care Team (Late st Contact Info) Description 04/14/2024 10:00 AM EST PulmDiagnostic Pulmonary Function Lab, [facility] [address] [facility] [place] [address] [address], [address] [facility] [place] [address] 04/21/2024 4:00 PM EST Home Visit [facility] [place], [facility] [address] [facility] [place] [address] Jose Newell, CARLEE [address] [facility] [place] [address] 05/18/2024 2:20 PM EST Office Visit Family Practice [address], [place] [address] [place] [phone] Aviva Rossi DO [address] [facility] [place] [address] 05/26/2024 10:00 AM EST Office Visit Cardiology, [facility] [address] [facility] [place] [address] Leslie Jean IV, MD [address] [place] [address] 06/30/2024 10:00 AM EDT Office Visit Cardiology, [facility] [address] [address] Shaw Hickey O, DO [address] [place] [address] Scheduled Orders Name Type Priority Associated Diagnoses Orde r Schedule SPIROMETRY B/A BRONCHODILATOR Procedures Routine History of asthma Chronic cough Expected: 03/09/2024, Expires: 04/09/2025 LUNG VOLUMES (PLETHYSMOGRAPHY) Procedures Routine History of asthma Chronic cough Expected: 03/09/2024 (Approximate), Expires: 03/09/2025 DIFFUSION CAPACITY (DLCO) Procedures Routine History of asthma Chronic cough Expected: 03/09/2024 (Approximate), Expires: 03/09/2025 Scheduled Procedures Name Priority Associated Diagnoses Date/Ti me COLONOSCOPY FLEXIBLE PROXIMA L DIAGNOSTIC Recall History of colonic polyps Scheduled Referrals Name Type Priority Associated Diagnoses Orde r Schedule PHYSICAL THERAPY REFERRAL OP Referral Within 30 days (routine) Other abnormalities of gait and mobility Ordered: 03/09/2024 Health Maintenance Due Date Last Done Comments CKD PHOS USE SMARTSET 22638 1971 Cologuard 1998 Fecal Occult Blood Test [...] Additional history exists CKD HGB USE SMARTSET 41227 02/02/202502/02, 02/03/2024, 08/25/2023, Additional history exists TSH [...] as of this encounter Visit Diagnoses Diagnosis History of asthma- Primary Personal history of other diseases of respiratory system Chronic cough Cough Cellulitis of right lower extremity Cellulitis and abscess of leg, except foot Other abnormalities of gait and mobility documented in this encounter Advance Directives * [...] and were consensually agreed upon. Care Teams Concrete Float Maker Relationship Specialty Start Date End Date Aviva Rossi DO [address] [facility] [place] [address] PCP - General Family Medicine 09/09/23 documented as of this encounter
--- OUTSIDE RECORDS SUMMARY | 2024-03-26 00:59 | External Medical Summary | Summary of Care ---
Author Name Unknown Organization [facility] Address [address] [place] [address] Phone [phone] Care Team Providers Care Transportation Refrigeration Technician Name Role Phone Aviva Rossi DO Primary Care Provider [phone] Encounter Details Date Type Department Care Team (Late st Contact Info) Description 02/18/2024 2:30 PM EST [facility] [address] [place] [address] Jose Newell, RN [address] [place] [address] Type 2 diabetes mellitus with hemoglobin A1c goal of less than 8.0% ([facility])* Allergies Active Allergy Reactions Criticality Noted Date Comments Codeine 11/20/2012 Nausea and vomiting Lisinopril 06/12/2015 ?cough Penicillin G 11/20/2012 Hives Hydrocodone-Acetaminophen 11/20/2012 Nausea and vomiting documented as of this encounter (statuses as of 02/20/2024) Medications Cyanocobalamin 1000 MCG Oral Tablet (Cyanocobalamin) Take 1 Tablet by mouth daily. 03/27/19 22 Active Vision Formula Eye Health Oral Capsule Take 1 Capsule by mouth daily. 05/09/19 23 Active Levothyroxine Sodium 50 MCG Oral Tablet (Levoxyl)Indicatio ns:Acquired hypothyroidism TAKE 1 TABLET BY MOUTH DAILY AT LEAST 30 MINUTES PRIOR TO FIRST MEAL OF THE DAY OR OTHER MEDICATIONS 100 Tablet 3 07/14/2023 7:46 AM EDT 08/07/19 23 Active NovoLOG FlexPen 100 UNIT/ML Subcutaneous Solution Pen-injector (insulin aspart) INJECT WITH WITH EACH MEAL PER CARB RATIO 1:7 AND CORRECTION FACTOR 1:20>120 MAX DAILY DOSE 35 UNITS 30 mL 3 05/26/2023 10:35 AM EST 10/04/19 23 Active Xultophy 100-3.6 UNIT-MG/ML Subcutaneous Solution Pen-injector (Insulin Degludec-Liragluti de) Inject up to 50 units under the skin daily as directed per titration schedule 45 mL 3 10/02/2023 1:01 PM EDT 11/28/19 23 Active buPROPion HCl ER (SR) 150 MG Oral Tablet Extended Release 12 Hour (Wellbutrin SR)Indications:Jasbir or depressive disorder, single episode, in partial remission (HCC) Take 1 Tablet by mouth daily. 100 Tablet 3 07/14/2023 7:46 AM EDT 04/04/19 24 Active buPROPion HCl ER (SR) 100 MG Oral Tablet Extended Release 12 Hour (Wellbutrin SR)Indications:Jasbir or depressive disorder, single episode, in partial remission (HCC) Take 1 Tablet by mouth in the morning. 100 Tablet 3 07/14/2023 7:46 AM EDT 04/04/19 24 Active Myrbetriq 50 MG Oral Tablet Extended Release 24 Hour (Mirabegron ER)Indications:Str ess incontinence Take 1 Tablet by mouth in the morning. 90 Tablet 3 10/01/2023 6:07 PM EDT 06/17/19 24 Active Vitamin [...] 1 Tablet before bedtime. 200 Tablet 3 01/23/2024 2:14 PM EDT 09/16/19 24 Active Dexcom G7 Sensor Use as directed. Through DME 09/29/19 24 Active Atorvastatin Calcium 20 MG Oral Tablet (Lipitor) TAKE ONE TABLET BY MOUTH DAILY 100 Tablet 1 01/23/2024 4:47 PM EDT 01/23/20 24 025 Active Pen [place] 316" 31G X 5 MM Use daily to inject insulin 4 times daily 400 Each 1 02/05/2024 7:46 AM EST 01/23/20 24 Active FLUoxetine HCl 20 MG Oral Capsule (PROzac)Indication s:Major depressive disorder, single episode, in partial remission (HCC) Take 1 Capsule by mouth in the morning. 100 Capsule 1 01/23/20 24 Active FLUoxetine HCl 40 MG Oral Capsule (PROzac)Indication s:Major depressive disorder, single episode, in partial remission (HCC) Take 1 Capsule by mouth in the morning. 100 Capsule 1 01/23/20 24 Active ProAir HFA 108 (90 Base) MCG/ACT Inhalation Aerosol SolutionIndication s:Shortness of breath,History of asthma Inhale 2 Puffs by mouth 4 times a day as needed for Dyspnea. 54 g 1 02/05/2024 7:46 AM EST 01/23/20 24 Active Insulin Glargine Solostar 100 UNIT/ML Subcutaneous Solution Pen-injector (Lantus SoloStar) Inject 5 Units under the skin at bedtime. Active [...] mouth in the morning. 100 Tablet 3 02/05/2024 7:46 AM EST 02/03/20 24 Active Bumetanide 2 MG Oral Tablet Take 1 Tablet by mouth in the morning. 100 Tablet 3 02/05/2024 7:46 AM EST 02/03/20 24 Active documented as of this encounter (statuses as of 02/20/2024) Active Problems Problem Noted Date Diagnosed Date [...] as of this encounter (statuses as of 02/20/2024) Resolved Problems Problem Noted Date Diagnosed Date [...] lantus/novolog-refer MTM----, Psychiatrist. Sees Dr Sanders-Lawrence @[facility] [phone] Morbid obesity 12/26/2016 Overview: Per Obesity protocol #1 PMB (postmenopausal bleeding) 11/12/2013 Chronic cough 08/22/2023 Productive cough 08/22/2023 Overview (12/18/2012): chronic Left knee injury 06/09/2023 Elevated WBC count 4 documented as of this encounter (statuses as of 02/20/2024) Immunizations Name Administration Dates Next Due COVID-19 mRNA, LNP-s, No Pre serve, 2-Dose Series ([employer]) 09/21/2020,05/22/2020 COVID-19, MRNA-LNP, PF, 30 M CG/0.3 mL, 12 YRS AND ABOVE, IM ([employer]-Comirnaty) 02/03/2024,08/25/2023,01/07/2023,09/06 Covid-19, Mrna, Lnp-s, Pf, B ivalent, 30 Mcg, IM, 12 yrs and above ([employer]) 05/09/2022 Pneumococcal Conjugate Vacci ne, 20-valent ([id number]) 05/09/2022 Pneumococcal Polysaccharide PPV23 (Pneumovax) 07/09/2013 RSV [...] Sign Reading Time Taken Comments Blood Pressure 126/70 02/18/2024 3:42 PM EST Pulse 68 02/18/2024 3:42 PM EST Temperature 36.3 C (97.3 F) 02/18/2024 3:42 PM ES T Respiratory Rate 18 02/18/2024 3:42 PM EST Oxygen Saturation 99% 02/18/2024 3:42 PM EST Inhaled Oxygen Concentration - - Weight - - Height - - Body Mass Index - - documented in this encounter Progress Notes * Jose Newell RN - 02/18/2024 3:14 PM EST Current Concerns: Situation: Pt seen today by [facility] masonry inspector for routine follow-up visit. Background: PMH includes: HTN, HLD, CATHERINE, DMtype 2, Hypothyroidism, depression, and B12 deficiency that presented to the ED with complaints of N/V, dizziness and palpitations. Assessment: Arrived at pt home, pt sitting in office chair in home Home remains severely hoarded, walkways very minimal from room to room Pt found Shana, on [place], who works as a video surveillance technician, who is coming into the home and assisting with filing paperwork and ensuring bills which accrued during time of no insurance are being paid Per pt Shana is coming once to twice weekly for 6-7 hours per day Shana is also assisting pt with grocery shopping and transportation to pt appts if needed, took pt to mammogram 02/16 Sister comes over once weekly on Friday and takes out trash and does "wellness check" Sister brings in mail, and takes recycling, does grocery shopping Pt had lost [employer] insurance- has not been seen by this RN for multiple months due to this Pt reports insurance has been reinstated Pt follows with Cardiology, Dr Hickey Trace pitting edema to BLE Pt reports she has not yet taken Torsemide yet States that she typically does not take pills until 3 or 4 PM due to not waking until 11AM or later Pt not taking any anticoagulants at this time Discussed Watchman procedure, did not go through with due to loss of insurance Pt is still interested in the procedure Pt next cardio 03/03 Pt has Dexcom G7 for BS monitoring Pt reports "Blood sugars are mediocre" Pt reports she has not been great about controlling BS, is not making the best food choices BS at time of visit 218 14 day average 142 30 day average 149 Pt reporting cough x 3 weeks, per pt has seen Dr Rossi and been evaluated Was prescribed antibiotic- pt took initially but did not finish Per pt antibiotic was causing nausea and hour and half after taking Pt reporting that cough causing wheezing- per pt her cartilage in trachea causes collapse and wheezing and "passing out" Pt states she has not had any episodes of syncope since this cough Pt reports "I certainly have grayed out" and states she has had to sit back in chair in the even that she would lose muscle tone and pass out Pt is tired, fatigued Reports does occasionally bring up clear white mucus Pt reports that she has requested Codeine Cough syrup on multiple occasions but has been denied- ptreports that she believes Codeine will rid her of cough Pt states she was informed by a Dr in 1992 that she should use Codeine Cough syrup Pt reports that she has a fear of needing pain relief and not getting it Pt reports that she is taking APAP PRN for pain Pt reports at current she is not having pain Pt reports at time she has pain in "the coccyx" Pt reports when she coughs the muscles in her pelvis pull on coccyx and cause pain Pt has [employer] scales- have been getting telehealth non-adherent alert Pt reports was having issues with [employer] modem, so unplugged it Pt does have smart phone, is interested in Current Health, as believes it will be helpful to have notifications to remind to weigh Will leave [facility] scales in home as pt is weighing, however does not transmit as issue with transmitting, and unplugged modem from wall- until current health equipment is received Physical Exam: Physical Exam Constitutional: Appearance: She is obese. Cardiovascular: Rate and Rhythm: Normal rate and regular rhythm. Pulmonary: Effort: Pulmonary effort is normal. Breath sounds: Normal breath sounds. Abdominal: Palpations: Abdomen is soft. Musculoskeletal: General: Normal range of motion. Skin: General: Skin is warm and dry. Capillary Refill: Capillary refill takes 2 to 3 seconds. Neurological: General: No focal deficit present. Mental Status: She is alert. Mental status is at baseline. Psychiatric: Mood and Affect: Mood normal. Behavior: Behavior normal. Review of Systems: Review of Systems Constitutional: Negative. HENT: Positive for sinus pressure. Respiratory: Positive for cough. Negative for shortness of breath and wheezing. Cardiovascular: Negative for leg swelling. Gastrointestinal: Negative. Genitourinary: Negative. Musculoskeletal: Positive for gait problem. Skin: Negative. Psychiatric/Behavioral: Negative. Care Plan Goal Progress: Patient will maintain management & treatment regimen. (Progressing) Start: 02/20/24 Expected End: 04/23/24 Patient will maintain adequate nutritional intake. (Progressing) Start: 02/20/24 Expected End: 04/23/24 Patient will achieve & maintain fluid & electrolyte balance. (Progressing) Start: 02/20/24 Expected End: 04/23/24 Patient will maintain & improve skin integrity. (Progressing) Start: 02/20/24 Expected End: 04/23/24 Patient will remain free from infection. (Progressing) Start: 02/20/24 Expected End: 04/23/24 Orders Placed: No orders of the defined types were placed in this encounter. Care Gaps: Care Gaps Care gaps closed this contact: Education (02/20/24852) Type of education: Clinical/disease (02/20/24852) documented in this encounter Plan of Treatment Upcoming Encounters Date Type Department Care Team (Late st Contact Info) Description 02/24/2024 1:00 PM EST Telemedicine Family Practice 65 [facility] 293 [place] [address] College, Pharmacist [address] [place] [address] 03/03/2024 3:00 PM EST Office Visit Cardiology, [facility] 132 [facility] [place] [address] Shaw Hickey, DO 132 [facility] [place] [address] 03/09/2024 3:00 PM EST Office Visit Family Practice [address] [place] [address] 293 [place] [id number] Aviva Rossi, DO 293 [place] [address] 04/21/2024 4:00 PM EST [facility] Visit [facility] [address] [place] [address] Jose Newell, RN 132 [facility] [place] [address] Scheduled Procedures Name Priority Associated Diagnoses Date/Ti [...] 01/07/2023, Additional history exists Mammogram 02/16/2025 02/17/2024, 05/22, 09/17/2013 Colonoscopy 02/05/2026 02/05/2023, 08/23, 11/26/2013 Colorectal Cancer [...] hemoglobin A1c goal of less than 8.0% (HCC)- Primary documented in this encounter Advance Directives * [...] and were consensually agreed upon. Care Teams Transportation Refrigeration Technician Relationship Specialty Start Date End Date Aviva Rossi DO [address] [place] [address] PCP - General Family Medicine 09/09/23 documented as of this encounter
--- OUTSIDE RECORDS SUMMARY | 2024-03-26 00:59 | External Medical Summary | Summary of Care ---
Author Name Unknown Organization [facility] Address [address] [place] [address] Phone [phone] Care Team Providers Care Senior Sales Assistant Name Role Phone Aviva Rossi DO Primary Care Provider Reason for Visit * Reason Onset Date Comments Medication Refill 02/24/2024 Encounter Details Date Type Department Care Team (Late st Contact Info) Description 02/24/2024 Telephone Family Practice 65 [facility] [address] [place] [phone] Aviva Rossi DO [address] [place], [place] [id number] Medication Refill Allergies Active Allergy Reactions Criticality Noted Date Comments Codeine 11/20/2012 Nausea and vomiting Lisinopril 06/12/2015 ?cough Penicillin G 11/20/2012 Hives Hydrocodone-Acetaminophen 11/20/2012 Nausea and vomiting documented as of this encounter (statuses as of 02/24/2024) Medications Cyanocobalamin 1000 MCG Oral Tablet (Cyanocobalamin) [...] PM EDT 01/23/20 24 025 Active Pen [place] 06/06" 31G X 5 MM Use daily [...] directed per titration schedule 30 mL 3 02/24/20 24 Active Atorvastatin Calcium 20 MG Oral Tablet (Lipitor)Indicatio ns:Dyslipidemia Take 1 Tablet by mouth every evening. 90 Tablet 02/24/20 24 025 Active Levothyroxine Sodium 50 MCG Oral Tablet (Levoxyl)Indicatio ns:Acquired hypothyroidism Take 1 Tablet by mouth daily first thing in the morning. 100 Tablet 3 02/24/20 24 Active Levothyroxine Sodium 50 MCG Oral Tablet (Levoxyl)Indicatio ns:Acquired hypothyroidism TAKE 1 TABLET BY MOUTH DAILY AT LEAST 30 MINUTES PRIOR TO FIRST MEAL OF THE DAY OR OTHER MEDICATIONS 100 Tablet 3 4 7:46 AM EDT 08/07/19 23 024 Discontin ued(Refil l) documented as of this encounter (statuses as of 02/24/2024) Active Problems Problem Noted Date Diagnosed Date [...] as of this encounter (statuses as of 02/24/2024) Resolved Problems Problem Noted Date Diagnosed Date [...] start lantus/novolog-refer MTM----, Psychiatrist. Sees Dr Witt @[facility] [phone] Morbid obesity 12/26/2016 Overview: Per Obesity protocol #1 PMB (postmenopausal bleeding) 11/12/2013 Chronic cough 08/22/2023 Productive cough 08/22/2023 Overview (12/18/2012): chronic Left knee injury 06/09/2023 Elevated WBC count 4 documented as of this encounter (statuses as of 02/24/2024) Immunizations Name Administration Dates Next Due COVID-19 mRNA, LNP-s, No Pre serve, 2-Dose Series ([employer]) 09/21/2020,05/22/2020 COVID-19, MRNA-LNP, PF, 30 M CG/0.3 mL, 12 YRS AND ABOVE, IM ([employer]-Comirnaty) 02/03/2024,08/25/2023,01/07/2023,09/06 Covid-19, Mrna, Lnp-s, Pf, B ivalent, 30 Mcg, IM, 12 yrs and above ([employer]) 05/09/2022 Pneumococcal Conjugate Vacci ne, 20-valent ([id number]) 05/09/2022 Pneumococcal Polysaccharide PPV23 (Pneumovax) 07/09/2013 RSV [...] No 08/20/2023 Does the household have a [facility] source of income? (Household - for ages [...] Miscellaneous Notes * Telephone Encounter - Gaby Leahy, [facility] - 02/24/2024 4:59 PM EST Patient identified that she's out of levothyroxine. Rx was - resent to mail order at patient's request per protocol Gaby Martinez, Pharm D, BCACP Clinical Pharmacist [address] [facility] 02/24/2024, 5:00 PM Ph. [phone] documented in this encounter Plan of Treatment Upcoming Encounters Date Type Department Care Team (Late st Contact Info) Description 03/03/2024 3:00 PM EST Office Visit Cardiology, [facility] 132 [facility] [place] [address] Shaw Hickey, DO 132 [facility] [place] [address] 03/09/2024 3:00 PM EST Office Visit Family Practice [address] [place] [address] 293 [place] [address] Aviva Rossi, DO 293 [place] [address] 04/21/2024 4:00 PM EST [facility] Visit [facility] 132 [facility] [place] [address] Jose Newell, RN 132 [facility] [place] [address] Scheduled Procedures Name Priority Associated Diagnoses Date/Ti me COLONOSCOPY FLEXIBLE PROXIMA L DIAGNOSTIC Recall History of colonic polyps Health Maintenance Due Date Last Done Comments Cologuard 1998 Fecal Occult Blood Test 1998 Sigmoidoscopy 1998 Adult Wellness Visit 11/06/2023 11/05/2022 Albumin/Creatinine Ratio 06/16/2024 024, 06/04/2022, 04/27/2014, Additional history exists Diabetic Foot Exam 06/16/2024 06/17/2023, 0 05/09/2022, 11/08/2015, Additional history exists HbA1c 08/02/2024 02/03/2024, 07/2 04/2023, 06/17/2023, Additional history exists Depression Monitoring [...] as of this encounter Visit Diagnoses Diagnosis Acquired hypothyroidism Unspecified hypothyroidism documented in this encounter Advance Directives * [...] and were consensually agreed upon. Care Teams Senior Sales Assistant Relationship Specialty Start Date End Date Aviva Rossi DO [address] [place] [address] PCP - General Family Medicine 09/09/23 documented as of this encounter
--- OUTSIDE RECORDS SUMMARY | 2024-03-26 00:59 | External Medical Summary | Summary of Care ---
Author Name Unknown Organization [facility] Address [address] [place] [address] Phone [phone] Care Team Providers Care Country Singer Name Role Phone BrianAviva rust Christian GRIGGS Primary Care Provider [phone] Encounter Details Date Type Department Care Team (Late st Contact Info) Description 02/17/2024 Population Health External Data Unspecified Department Allergies Active Allergy Reactions Criticality Noted Date Comments Codeine 11/20/2012 Nausea and vomiting Lisinopril 06/12/2015 ?cough Penicillin G 11/20/2012 Hives Hydrocodone-Acetaminophen 11/20/2012 Nausea and vomiting documented as of this encounter (statuses as of 02/17/2024) Medications Cyanocobalamin 1000 MCG Oral Tablet (Cyanocobalamin) [...] PM EDT 01/23/20 24 025 Active Pen [place] 06/06" 31G X 5 MM Use daily [...] as of this encounter (statuses as of 02/17/2024) Active Problems Problem Noted Date Diagnosed Date [...] as of this encounter (statuses as of 02/17/2024) Resolved Problems Problem Noted Date Diagnosed Date [...] Ovarian mass 12/17/2012 07/09/2013 Overview (07/09/2013): S/p ASNA BSO Endometrial thickening on ultrasound 12/17/2012 07/09/2013 [...] start lantus/novolog-refer MTM----, Psychiatrist. Sees Dr Sanders-Lawrence @[facility] [phone] Morbid obesity 12/26/2016 Overview: Per Obesity protocol #1 PMB (postmenopausal bleeding) 11/12/2013 Chronic cough 08/22/2023 Productive cough 08/22/2023 Overview (12/18/2012): chronic Left knee injury 06/09/2023 Elevated WBC count 4 documented as of this encounter (statuses as of 02/17/2024) Immunizations Name Administration Dates Next Due COVID-19 mRNA, LNP-s, No Pre serve, 2-Dose Series ([employer]) 09/21/2020,05/22/2020 COVID-19, MRNA-LNP, PF, 30 M CG/0.3 mL, 12 YRS AND ABOVE, IM ([employer]) 02/03/2024,08/25/2023,01/07/2023,09/06 Covid-19, Mrna, Lnp-s, Pf, B ivalent, 30 Mcg, IM, 12 yrs and above ([employer]) 05/09/2022 Pneumococcal Conjugate Vacci ne, 20-valent ([id number]) 05/09/2022 Pneumococcal Polysaccharide PPV23 (Pneumovax) 07/09/2013 RSV [...] Care Team (Late st Contact Info) Description 02/17/2024 11:30 AM EST Imaging Radiology [facility] [address] [facility] [place] 132 [facility] [place] [address] 02/17/2024 12:00 PM EST Imaging Radiology [facility] 132 [facility] [place] [address] 02/18/2024 2:30 PM EST Home Visit [facility] [address] [place] [address] Jose Newell, RN 132 [facility] [place] [address] 02/24/2024 1:00 PM EST Telemedicine Family Practice 65 [facility] [place] [facility] [address] College, Pharmacist [address] [address] 03/03/2024 3:00 PM EST Office Visit Cardiology, [facility] [address] [place] [address] Shaw Hickey, DO [address] [place] [address] 03/09/2024 3:00 PM EST Office Visit Family Practice [address] [facility], [place] 293 [place] [address] Aviva Rossi, DO 293 [place] [address] Scheduled Procedures Name Priority Associated Diagnoses Date/Ti me COLONOSCOPY FLEXIBLE PROXIMA L DIAGNOSTIC Recall History of colonic polyps Health Maintenance Due Date Last Done Comments Cologuard 1998 Fecal Occult Blood Test 1998 Sigmoidoscopy 1998 Mammogram 06/05/2023 06/04/2022, 09/17/2013 Adult Wellness Visit 11/06/2023 11/05/2022 Albumin/Creatinine Ratio 06/16/2024 024, 06/04/2022, 04/27/2014, Additional history exists Diabetic Foot Exam 06/16/2024 06/17/2023, 0 05/09/2022, 11/08/2015, Additional history exists HbA1c 08/02/2024 02/03/2024, 09/22, 06/17/2023, Additional history exists Depression Monitoring 08/19/2024 08/20/2023 Diabetic Eye Exam 09/09/2024 09/10/2023, , 05/08/2023, Additional history exists GFR 02/02/2025 02/03/2024, 08/23, 08/25/2023, Additional history exists TSH 02/02/2025 02/03/2024, 05/23, 01/07/2023, Additional history exists Colonoscopy 02/05/2026 [...] and were consensually agreed upon. Care Teams Country Singer Relationship Specialty Start Date End Date Aviva Rossi DO [address] [place] [address] PCP - General Family Medicine 09/09/23 documented as of this encounter
--- OUTSIDE RECORDS SUMMARY | 2024-03-26 00:59 | External Medical Summary | Summary of Care ---
Author Name Unknown Organization [facility] Address [address] [place] [address] Phone [phone] Care Team Providers Care Apiculture Teacher Name Role Phone Aviva Rossi DO Primary Care Provider Reason for Visit * Reason Comments Dosage Adjustment Via Phone (anticoag Cl inic) Diabetes Follow-Up Encounter Details Date Type Department Care Team (Late st Contact Info) Description 02/24/2024 1:00 PM EST Telemedicine Family Practice 65 [facility] [address] [place] [address] College, Pharmacist [address] [address] Type 2 diabetes mellitus with hemoglobin A1c goal of less than 8.0% ([facility])*; Dyslipidemia Allergies Active Allergy Reactions Criticality Noted Date Comments Codeine 11/20/2012 Nausea and vomiting Lisinopril 06/12/2015 ?cough Penicillin G 11/20/2012 Hives Hydrocodone-Acetaminophen 11/20/2012 Nausea and vomiting documented as of this encounter (statuses as of 02/26/2024) Medications Cyanocobalamin 1000 MCG Oral Tablet (Cyanocobalamin) [...] PM EDT 01/23/20 24 025 Active Pen [place] 06/06" 31G X 5 MM Use daily [...] 4 2:18 PM EST 02/24/20 24 Active Atorvastatin Calcium 20 MG [...] EDT 08/07/19 23 024 Discontin ued(Refil l) Xultophy 100-3.6 UNIT-MG/ML Subcutaneous Solution Pen-injector (Insulin Degludec-Liragluti de) Inject up to 50 units under the skin daily as directed per titration schedule 45 mL 3 4 1:01 PM EDT 11/28/19 23 024 Discontin ued(Refil l) documented as of this encounter (statuses as of 02/26/2024) Active Problems Problem Noted Date Diagnosed Date [...] as of this encounter (statuses as of 02/26/2024) Resolved Problems Problem Noted Date Diagnosed Date [...] start lantus/novolog-refer MTM----, Psychiatrist. Sees Dr Sanders-Lawrence @[facility] [phone] Morbid obesity 12/26/2016 Overview: Per Obesity protocol #1 PMB (postmenopausal bleeding) 11/12/2013 Chronic cough 08/22/2023 Productive cough 08/22/2023 Overview (12/18/2012): chronic Left knee injury 06/09/2023 Elevated WBC count 4 documented as of this encounter (statuses as of 02/26/2024) Immunizations Name Administration Dates Next Due COVID-19 mRNA, LNP-s, No Pre serve, 2-Dose Series ([employer]ogiyo) 09/21/2020,05/22/2020 COVID-19, MRNA-LNP, PF, 30 M CG/0.3 mL, 12 YRS AND ABOVE, IM ([facility]) 02/03/2024,08/25/2023,01/07/2023,09/06 Covid-19, Mrna, Lnp-s, Pf, B ivalent, 30 Mcg, IM, 12 yrs and above (Pfizer) 05/09/2022 Pneumococcal Conjugate Vacci ne, 20-valent ([id number]) 05/09/2022 Pneumococcal Polysaccharide PPV23 (Pneumovax) 07/09/2013 RSV [...] No 08/20/2023 Does the household have a [facility] source of income? (Household - for ages [...] as of this encounter Progress Notes * Krahe MichelleGaby bell, [facility] - 02/24/2024 1:06 PM EST Images from the original note were not included. Medication Therapy Disease Management Clinic - Diabetes Management Progress Note Lisa Gamboa, identified by name and date of , is a 68 year old female being seen for diabetes management/education. Patient presents for return diabetic visit. DIABETES: Current diabetic medications: Xultophy 21 units daily (giving 20-21 units Xultophy + 4-5 units Lantus) Novolog 2 units at meals if high carb (giving 3-6 units per meal during/after) Medication Injection Site: N/A Lifestyle: Diet: unchanged She reports schedule has been erratic lately due to taking a night class from 12 Glucose Review/SMBG: Readings obtained from patient device Hypoglycemia: Does your blood sugar go below 70 mg/dL? Yes, patient reports she thinks she "overshot" Hyperglycemia symptoms present: none Recent Labs Units 02/03/24 1525 10/13/23 0000 06/17/23 0952 HEMOGLOBIN A1C - [facility] % 7.2* -- 6.1* HEMOGLOBIN, M1S-[facility] -- 6.6* -- Recent Labs Units 02/03/24 1525 09/16/23 1130 08/25/23 1300 ESTIMATED GLOMERULAR FILTRATION RATE - [facility] mL/min 40* 49* 59* CREATININE - [facility] mg/dL 1.4* 1.2* 1.0 HYPERTENSION: Patient on ACEi/ARB: no, losartan discontinued with last hospitalization due to hypotension BP Readings from Last 3 Encounters: 02/18/24 126/70 02/03/24 120/74 01/21/24 118/62 Blood pressure at goal: yes HYPERLIPIDEMIA: Recent Labs Units 04/19/22 0826 LDL CHOLESTEROL (CALCULATED) - [facility] mg/dL 100 Does patient have clinical ASCVD? No, is patient LDL less than 70mg/dL? No: Optimize statin therapy- at next visit HEALTH MAINTENANCE REVIEW: Health Maintenance Due Topic Date Due Adult Wellness Visit 11/06/2023 ASSESSMENT & PLAN: ICD-10-CM 1. Type 2 diabetes mellitus with hemoglobin A1c goal of less than 8.0% (HCC) E11.9 BG Readings - Blood sugars uncontrolled. Blood sugars going high with meals as patient identified taking insulin during or after meal due to not knowing if she was actually going to eat or how much. Medications - Reviewed current regimen, patient is not adherent to regimen. She would like to continue giving some lantus to use it up. Discussed need to decrease basal insulin due to drops overnight. Also advised patient to give novolog prior to meal and give basal insulin at the same time every day. Diet, Exercise, Lifestyle - No significant lifestyle changes since last visit. Discussed with patient. Patient is agreeable to SMBG with CGM. Patient aware to contact clinic if any hypoglycemia before next visit. MEDICATION CHANGES: yes, see below; preferred pharmacy: [facility]) Diabetic Medications: Decrease Xultophy 20 units daily (+ 2-3 units of Lantus per patient preference) Adjust Novolog 3-5 units before meals (giving 3-6 units per meal during/after) HEALTH MAINTENANCE INTERVENTIONS: Labs: Up to Date Immunizations: Up to Date Foot Exam: Up to Date Eye Exam: Up to Date Annual Wellness Visit: N/A FOLLOW UP: Return to clinic in 2 weeks with PCP 03/09/2024 I spent a total of 20-29 minutes (exact time 22 mins) on the date of service in preparation, delivery, and documentation of the care provided to Lisa Gamboa excluding any time spent in the performance of separately billed services. Gaby Perez [facility] Clinical Pharmacist - Printing Press Operator Medication Therapy Management Clinic 02/24/2024, 1:10 PM documented in this encounter Plan of Treatment Upcoming Encounters Date Type Department Care Team (Late st Contact Info) Description 03/03/2024 3:00 PM EST Office Visit Cardiology, [facility] [address] [address] Shaw Hickey, [address] [place] [address] 03/09/2024 3:00 PM EST Office Visit Family [address] [place] [address] Aviva Rossi, DO [address] [place] [address] 04/21/2024 4:00 PM EST [facility] [place] [address] Jose Newell, RN [address] [place] [address] Scheduled Procedures Name Priority Associated Diagnoses Date/Ti [...] goal of less than 8.0% (HCC)- Primary Dyslipidemia Other and unspecified hyperlipidemia documented in this encounter Advance Directives * [...] and were consensually agreed upon. Care Teams Apiculture Teacher Relationship Specialty Start Date End Date Aviva Rossi DO [address] [place] [address] PCP - General Family Medicine 09/09/23 documented as of this encounter
--- OUTSIDE RECORDS SUMMARY | 2024-03-26 00:59 | External Medical Summary | Summary of Care ---
Author Name Unknown Organization [facility] Address [address] [place] [address] Phone [phone] Care Team Providers Care Optometric Coordinator Name Role Phone BrianAviva rust Christian GRIGGS Primary Care Provider [phone] Encounter Details Date Type Department Care Team (Late st Contact Info) Description 02/18/2024 Population Health External Data Unspecified Department Allergies Active Allergy Reactions Criticality Noted Date Comments Codeine 11/20/2012 Nausea and vomiting Lisinopril 06/12/2015 ?cough Penicillin G 11/20/2012 Hives Hydrocodone-Acetaminophen 11/20/2012 Nausea and vomiting documented as of this encounter (statuses as of 02/18/2024) Medications Cyanocobalamin 1000 MCG Oral Tablet (Cyanocobalamin) [...] PM EDT 01/23/20 24 025 Active Pen [place] 06/06" 31G X 5 MM Use daily [...] as of this encounter (statuses as of 02/18/2024) Active Problems Problem Noted Date Diagnosed Date [...] as of this encounter (statuses as of 02/18/2024) Resolved Problems Problem Noted Date Diagnosed Date [...] start lantus/novolog-refer MTM----, Psychiatrist. Sees Dr Sanders-Lawrence @[facility] [phone] Morbid obesity 12/26/2016 Overview: Per Obesity protocol #1 PMB (postmenopausal bleeding) 11/12/2013 Chronic cough 08/22/2023 Productive cough 08/22/2023 Overview (12/18/2012): chronic Left knee injury 06/09/2023 Elevated WBC count 4 documented as of this encounter (statuses as of 02/18/2024) Immunizations Name Administration Dates Next Due COVID-19 mRNA, LNP-s, No Pre serve, 2-Dose Series ([employer]) 09/21/2020,05/22/2020 COVID-19, MRNA-LNP, PF, 30 M CG/0.3 mL, 12 YRS AND ABOVE, IM ([facility]) 02/03/2024,08/25/2023,01/07/2023,09/06 Covid-19, Mrna, Lnp-s, Pf, B ivalent, 30 Mcg, IM, 12 yrs and above ([employer]) 05/09/2022 Pneumococcal Conjugate Vacci ne, 20-valent ([id number]) 05/09/2022 Pneumococcal Polysaccharide PPV23 (Pneumovax) 07/09/2013 RSV [...] Description 02/18/2024 2:30 PM EST [facility] [address] [place] [address] Jose Newell, RN [address] [place] [address] 02/24/2024 1:00 PM EST Telemedicine Family Practice [address] [place] [address] [facility] [phone] College, Pharmacist [address] [address] 03/03/2024 3:00 PM EST Office Visit Cardiology, [facility] [address] [place] [address] Shaw Hickey DO [address] [place] [address] 03/09/2024 3:00 PM EST Office Visit Family Practice [address] [place] [address] 293 [facility] [address] Aviva Rossi, DO [address] [place] [address] Scheduled Procedures Name Priority Associated Diagnoses Date/Ti [...] and were consensually agreed upon. Care Teams Optometric Coordinator Relationship Specialty Start Date End Date Aviva Rossi DO [address] [place] [address] PCP - General Family Medicine 09/09/23 documented as of this encounter
--- OUTSIDE RECORDS SUMMARY | 2024-03-26 01:00 | External Medical Summary | Summary of Care ---
Author Name Unknown Organization [facility] Address [address] [place] [address] Phone [phone] Care Team Providers Care Handbag Frames Inspector Name Role Phone BrianAviva rust Christian GRIGGS Primary Care Provider Encounter Details Date Type Department Care Team (Late st Contact Info) Description 02/12/2024 Population Health External Data Unspecified Department Allergies Active Allergy Reactions Criticality Noted Date Comments Codeine 11/20/2012 Nausea and vomiting Lisinopril 06/12/2015 ?cough Penicillin G 11/20/2012 Hives Hydrocodone-Acetaminophen 11/20/2012 Nausea and vomiting documented as of this encounter (statuses as of 02/12/2024) Medications Cyanocobalamin 1000 MCG Oral Tablet (Cyanocobalamin) [...] PM EDT 01/23/20 24 025 Active Pen Enloe 06/06" 31G X 5 MM Use daily [...] g 1 02/05/2024 7:46 AM EST 01/23/20 Active Insulin Glargine [...] as needed for Constipation. 10/24/19 24 Active Doxycycline Hyclate 100 MG Oral CapsuleIndications :Acute cough Take 1 Capsule by mouth in the morning and 1 Capsule before bedtime. Do all this for 10 days. Until gone.. 20 Capsule 02/03/20 24 024 Active Benzonatate 100 MG Oral CapsuleIndications :Acute [...] Tablet 3 02/05/2024 7:46 AM EST 02/03/20 Active Bumetanide 2 MG Oral Tablet Take 1 Tablet by mouth in the morning. 100 Tablet 3 02/05/2024 7:46 AM EST 02/03/20 24 Active documented as of this encounter (statuses as of 02/12/2024) Active Problems Problem Noted Date Diagnosed Date [...] as of this encounter (statuses as of 02/12/2024) Resolved Problems Problem Noted Date Diagnosed Date [...] Sees Dr Sanders[facility]Lawrence @[facility] [phone] Morbid obesity 12/26/2016 Overview: Per Obesity protocol #1 PMB (postmenopausal bleeding) 11/12/2013 Chronic cough 08/22/2023 Productive cough 08/22/2023 Overview (12/18/2012): chronic Left knee injury 06/09/2023 Elevated WBC count 4 documented as of this encounter (statuses as of 02/12/2024) Immunizations Name Administration Dates Next Due COVID-19 mRNA, LNP-s, No Pre serve, 2-Dose Series (RIVS) 09/21/2020,05/22/2020 COVID-19, MRNA-LNP, PF, 30 M CG/0.3 mL, 12 YRS AND ABOVE, IM (PFIZER-Comirnaty) 02/03/2024,08/25/2023,01/07/2023,09/06 Covid-19, Mrna, Lnp-s, Pf, B ivalent, 30 Mcg, IM, 12 yrs and above (Pfizer) 05/09/2022 Pneumococcal Conjugate Vacci ne, 20-valent ([id number]) 05/09/2022 Pneumococcal Polysaccharide PPV23 (Pneumovax) 07/09/2013 RSV [...] Description 02/17/2024 11:30 AM EST Imaging Radiology [facility]st [facility] [address] [place] [address] 02/17/2024 12:00 PM EST Imaging Radiology [facility] [address] [place] [address] 02/18/2024 2:30 PM EST [facility] Visit [facility] [address] [place] [address] Jose Newell, CARLEE [address] [place] [address] 02/24/2024 1:00 PM EST Telemedicine Family Practice 65 [facility] [address] College, Pharmacist [address] [address] 03/03/2024 3:00 PM EST Office Visit Cardiology, [facility] 132 [facility] [place] [address] Shaw Hickey, DO 132 [facility] [place] [address] 03/09/2024 3:00 PM EST Office Visit Family Practice 65 [facility] 293 [facility], [place] [address] Aviva Rossi, DO 293 [place] [address] Scheduled Procedures Name Priority Associated Diagnoses Date/Ti [...] and were consensually agreed upon. Care Teams Handbag Frames Inspector Relationship Specialty Start Date End Date Aviva Rossi DO [address] [place] [address] PCP - General Family Medicine 09/09/23 documented as of this encounter
--- OUTSIDE RECORDS SUMMARY | 2024-03-26 01:00 | External Medical Summary | Summary of Care ---
Author Name Unknown Organization [facility] Address [address] [place] [address] Phone [phone] Care Team Providers Care Resource Economist Name Role Phone BrianAviva rust Christian GRIGGS Primary Care Provider Encounter Details Date Type Department Care Team (Late st Contact Info) Description 02/11/2024 Population Health External Data Unspecified Department Allergies Active Allergy Reactions Criticality Noted Date Comments Codeine 11/20/2012 Nausea and vomiting Lisinopril 06/12/2015 ?cough Penicillin G 11/20/2012 Hives Hydrocodone-Acetaminophen 11/20/2012 Nausea and vomiting documented as of this encounter (statuses as of 02/11/2024) Medications Cyanocobalamin 1000 MCG Oral Tablet (Cyanocobalamin) [...] PM EDT 01/23/20 24 025 Active Pen [place] 06/06" 31G X 5 MM Use daily [...] as of this encounter (statuses as of 02/11/2024) Active Problems Problem Noted Date Diagnosed Date [...] as of this encounter (statuses as of 02/11/2024) Resolved Problems Problem Noted Date Diagnosed Date [...] Dr Sanders[facility]Lawrence @[facility] [phone] Morbid obesity 12/26/2016 Overview: Per Obesity protocol #1 PMB (postmenopausal bleeding) 11/12/2013 Chronic cough 08/22/2023 Productive cough 08/22/2023 Overview (12/18/2012): chronic Left knee injury 06/09/2023 Elevated WBC count 4 documented as of this encounter (statuses as of 02/11/2024) Immunizations Name Administration Dates Next Due COVID-19 mRNA, LNP-s, No Pre serve, 2-Dose Series ([employer]) 09/21/2020,05/22/2020 COVID-19, MRNA-LNP, PF, 30 M CG/0.3 mL, 12 YRS AND ABOVE, IM (PFIZER-Comirnaty) 02/03/2024,08/25/2023,01/07/2023,09/06 Covid-19, Mrna, Lnp-s, Pf, B ivalent, 30 Mcg, IM, 12 yrs and above (Pfizer) 05/09/2022 Pneumococcal Conjugate Vacci ne, 20-valent ([id number]) 05/09/2022 Pneumococcal Polysaccharide PPV23 (Pneumovax) 07/09/2013 RSV [...] Description 02/17/2024 11:30 AM EST Imaging Radiology [facility]st [facility] [address] [place] [address] 02/17/2024 12:00 PM EST Imaging Radiology [facility] [address] [place] [address] 02/18/2024 2:30 PM EST Home Visit [facility] [address] [place] [address] Jose Newell, CARLEE [address] [place] [address] 02/24/2024 1:00 PM EST Telemedicine Family Practice 65 [facility] [phone] College, Pharmacist [address] [address] 03/03/2024 3:00 PM EST Office Visit Cardiology, [facility] 132 [facility] [place] [address] Shaw Hickey, DO 132 [facility] [place] [address] 03/09/2024 3:00 PM EST Office Visit Family Practice 65 [facility] [place] 293 [facility], [place] [address] Aviva Rossi, DO 293 [facility] [place] [address] Scheduled Procedures Name Priority Associated Diagnoses Date/Ti [...] and were consensually agreed upon. Care Teams Resource Economist Relationship Specialty Start Date End Date Aviva Rossi DO [address] [facility] [place] [address] PCP - General Family Medicine 09/09/23 documented as of this encounter
--- OUTSIDE RECORDS SUMMARY | 2024-03-26 01:00 | External Medical Summary | Summary of Care ---
Author Name Unknown Organization [facility] Address [address] [place] [address] Phone [phone] Care Team Providers Care Senior Oracle Applications Developer Name Role Phone BrianAviva rust Christian GRIGGS Primary Care Provider Encounter Details Date Type Department Care Team (Late st Contact Info) Description 02/16/2024 Population Health External Data Unspecified Department Allergies Active Allergy Reactions Criticality Noted Date Comments Codeine 11/20/2012 Nausea and vomiting Lisinopril 06/12/2015 ?cough Penicillin G 11/20/2012 Hives Hydrocodone-Acetaminophen 11/20/2012 Nausea and vomiting documented as of this encounter (statuses as of 02/16/2024) Medications Cyanocobalamin 1000 MCG Oral Tablet (Cyanocobalamin) [...] PM EDT 01/23/20 24 025 Active Pen [place] 06/06" 31G X 5 MM Use daily [...] as of this encounter (statuses as of 02/16/2024) Active Problems Problem Noted Date Diagnosed Date [...] as of this encounter (statuses as of 02/16/2024) Resolved Problems Problem Noted Date Diagnosed Date [...] Sees Dr Sanders[facility]Lawrence @[facility] [phone] Morbid obesity 12/26/2016 Overview: Per Obesity protocol #1 PMB (postmenopausal bleeding) 11/12/2013 Chronic cough 08/22/2023 Productive cough 08/22/2023 Overview (12/18/2012): chronic Left knee injury 06/09/2023 Elevated WBC count 4 documented as of this encounter (statuses as of 02/16/2024) Immunizations Name Administration Dates Next Due COVID-19 mRNA, LNP-s, No Pre serve, 2-Dose Series ([employer]) 09/21/2020,05/22/2020 COVID-19, MRNA-LNP, PF, 30 M CG/0.3 mL, 12 YRS AND ABOVE, IM ([employer]) 02/03/2024,08/25/2023,01/07/2023,09/06 Covid-19, Mrna, Lnp-s, Pf, B ivalent, 30 Mcg, IM, 12 yrs and above ([employer]) 05/09/2022 Pneumococcal Conjugate Vacci ne, 20-valent ([id number]) 05/09/2022 Pneumococcal Polysaccharide PPV23 (Pneumovax) 07/09/2013 RSV [...] 02/17/2024 11:30 AM EST Imaging Radiology [facility]st [facility] [place] 132 [facility] [place] [address] 02/17/2024 12:00 PM EST Imaging Radiology [facility] 132 [facility] [place] [address] 02/18/2024 2:30 PM EST Home Visit [facility] [address] [place] [address] Jose Newell, RN 132 [facility] [place] [address] 02/24/2024 1:00 PM EST Telemedicine Family Practice 65 [facility] [place] 293 [facility] [address] College, Pharmacist [address] [address] 03/03/2024 3:00 PM EST Office Visit Cardiology, [facility] [address] [place] [address] Shaw Hickey, DO [address] [place] [address] 03/09/2024 3:00 PM EST Office Visit Family Practice 65 [facility] [place] 293 [place] [address] Aviva Rossi, DO 293 [place] [address] Scheduled Procedures Name Priority Associated Diagnoses Date/Ti [...] were consensually agreed upon. Care Teams Senior Oracle Applications Developer Relationship Specialty Start Date End Date Aviva Rossi DO [address] [place] [facility] [place] [address] PCP - General Family Medicine 09/09/23 documented as of this encounter
--- OUTSIDE RECORDS SUMMARY | 2024-03-26 01:00 | External Medical Summary | Summary of Care ---
Author Name Unknown Organization [facility] Address [address] [place] [address] Phone [phone] Care Team Providers Care Income Tax Investigator Name Role Phone BrianAviva rust Christian GRIGGS Primary Care Provider Encounter Details Date Type Department Care Team (Late st Contact Info) Description 02/13/2024 Population Health External Data Unspecified Department Allergies Active Allergy Reactions Criticality Noted Date Comments Codeine 11/20/2012 Nausea and vomiting Lisinopril 06/12/2015 ?cough Penicillin G 11/20/2012 Hives Hydrocodone-Acetaminophen 11/20/2012 Nausea and vomiting documented as of this encounter (statuses as of 02/13/2024) Medications Cyanocobalamin 1000 MCG Oral Tablet (Cyanocobalamin) [...] PM EDT 01/23/20 24 025 Active Pen Aurora 06/06" 31G X 5 MM Use daily [...] as of this encounter (statuses as of 02/13/2024) Active Problems Problem Noted Date Diagnosed Date [...] as of this encounter (statuses as of 02/13/2024) Resolved Problems Problem Noted Date Diagnosed Date [...] Psychiatrist. Sees Dr Sanders-Lawrence @[facility] [phone] Morbid obesity 12/26/2016 Overview: Per Obesity protocol #1 PMB (postmenopausal bleeding) 11/12/2013 Chronic cough 08/22/2023 Productive cough 08/22/2023 Overview (12/18/2012): chronic Left knee injury 06/09/2023 Elevated WBC count 4 documented as of this encounter (statuses as of 02/13/2024) Immunizations Name Administration Dates Next Due COVID-19 mRNA, LNP-s, No Pre serve, 2-Dose Series (Cittadino) 09/21/2020,05/22/2020 COVID-19, MRNA-LNP, PF, 30 M CG/0.3 mL, 12 YRS AND ABOVE, IM (PFIZER-Comirnat) 02/03/2024,08/25/2023,01/07/2023,09/06 Covid-19, Mrna, Lnp-s, Pf, B ivalent, 30 Mcg, IM, 12 yrs and above (Pfizer) 05/09/2022 Pneumococcal Conjugate Vacci ne, 20-valent ([id number]) 05/09/2022 Pneumococcal Polysaccharide PPV23 (Pneumovax) 07/09/2013 RSV [...] Description 02/17/2024 11:30 AM EST Imaging Radiology [facility]st [facility] [address] [place] [address] 02/17/2024 12:00 PM EST Imaging Radiology [facility] [address] [place] [address] 02/18/2024 2:30 PM EST Home Visit [facility] at [facility] [address] [place] [address] Jose Newell, CARLEE [address] [place] [address] 02/24/2024 1:00 PM EST Telemedicine Family Practice 65 [facility] [address] College, Pharmacist [address] [address] 03/03/2024 3:00 PM EST Office Visit Cardiology, [facility] 132 [facility] [place] [address] Shaw Hickey, DO 132 [facility] [place] [address] 03/09/2024 3:00 PM EST Office Visit Family Practice 65 [facility] [place] 293 [facility], [place] [address] Aviva Rossi, DO 293 [place] [address] Scheduled Procedures Name Priority Associated Diagnoses Date/Ti [...] and were consensually agreed upon. Care Teams Income Tax Investigator Relationship Specialty Start Date End Date Aviva Rossi DO [address] [facility] [place] [address] PCP - General Family Medicine 09/09/23 documented as of this encounter
--- OUTSIDE RECORDS SUMMARY | 2024-03-26 01:01 | External Medical Summary | Summary of Care ---
Author Name Unknown Organization [facility] Address [address] [place] [address] Phone [phone] Care Team Providers Care Oncology Account Specialist Name Role Phone BrianAviva rust Christian GRIGGS Primary Care Provider Encounter Details Date Type Department Care Team (Late st Contact Info) Description 02/10/2024 Population Health External Data Unspecified Department Allergies Active Allergy Reactions Criticality Noted Date Comments Codeine 11/20/2012 Nausea and vomiting Lisinopril 06/12/2015 ?cough Penicillin G 11/20/2012 Hives Hydrocodone-Acetaminophen 11/20/2012 Nausea and vomiting documented as of this encounter (statuses as of 02/10/2024) Medications Cyanocobalamin 1000 MCG Oral Tablet (Cyanocobalamin) [...] PM EDT 01/23/20 24 025 Active Pen Huger 06/06" 31G X 5 MM Use daily [...] as of this encounter (statuses as of 02/10/2024) Active Problems Problem Noted Date Diagnosed Date [...] as of this encounter (statuses as of 02/10/2024) Resolved Problems Problem Noted Date Diagnosed Date [...] lantus/novolog-refer MTM----, Psychiatrist. Sees Dr Sanders[facility]Lawrence @[facility] [phone] Morbid obesity 12/26/2016 Overview: Per Obesity protocol #1 PMB (postmenopausal bleeding) 11/12/2013 Chronic cough 08/22/2023 Productive cough 08/22/2023 Overview (12/18/2012): chronic Left knee injury 06/09/2023 Elevated WBC count 4 documented as of this encounter (statuses as of 02/10/2024) Immunizations Name Administration Dates Next Due COVID-19 mRNA, LNP-s, No Pre serve, 2-Dose Series ([employer]) 09/21/2020,05/22/2020 COVID-19, MRNA-LNP, PF, 30 M CG/0.3 mL, 12 YRS AND ABOVE, IM (PFIZER-Comirnat) 02/03/2024,08/25/2023,01/07/2023,09/06 Covid-19, Mrna, Lnp-s, Pf, B ivalent, 30 Mcg, IM, 12 yrs and above (Pfizer) 05/09/2022 Pneumococcal Conjugate Vacci ne, 20-valent ([id number]) 05/09/2022 Pneumococcal Polysaccharide PPV23 (Pneumovax) 07/09/2013 RSV [...] Description 02/17/2024 11:30 AM EST Imaging Radiology [facility] 1st [facility] [address] [place] [address] 02/17/2024 12:00 PM EST Imaging Radiology [facility] [address] [place] [address] 02/18/2024 2:30 PM EST Home Visit [facility] at [facility] [address] [place] [address] Jose Newell, CARLEE [address] [place] [address] 02/24/2024 1:00 PM EST Telemedicine Family Practice 65 [facility] 293 [facility] [address] College, Pharmacist [address] [address] 03/03/2024 3:00 PM EST Office Visit Cardiology, [facility] 132 [facility] [place] [address] Shaw Hickey, DO 132 [facility] [place] [address] 03/09/2024 3:00 PM EST Office Visit Family Practice 65 [facility] 293 [facility], [place] [address] Aviva Rossi, DO 293 [place] [address] Scheduled Procedures Name Priority Associated Diagnoses Date/Ti [...] and were consensually agreed upon. Care Teams Oncology Account Specialist Relationship Specialty Start Date End Date Aviva Rossi DO [address] [place] [address] PCP - General Family Medicine 09/09/23 documented as of this encounter
--- OUTSIDE RECORDS SUMMARY | 2024-03-26 01:01 | External Medical Summary | Summary of Care ---
Author Name Unknown Organization [facility] Address [address] [place] [address] Phone [phone] Care Team Providers Care Cloth Trimmer Hand Name Role Phone BrianAviva rust Christian GRIGGS Primary Care Provider [phone] Encounter Details Date Type Department Care Team (Late st Contact Info) Description 02/06/2024 Population Health External Data Unspecified Department Allergies Active Allergy Reactions Criticality Noted Date Comments Codeine 11/20/2012 Nausea and vomiting Lisinopril 06/12/2015 ?cough Penicillin G 11/20/2012 Hives Hydrocodone-Acetaminophen 11/20/2012 Nausea and vomiting documented as of this encounter (statuses as of 02/06/2024) Medications Cyanocobalamin 1000 MCG Oral Tablet (Cyanocobalamin) [...] PM EDT 01/23/20 24 025 Active Pen [place] 06/06" 31G X 5 MM Use daily [...] as of this encounter (statuses as of 02/06/2024) Active Problems Problem Noted Date Diagnosed Date [...] as of this encounter (statuses as of 02/06/2024) Resolved Problems Problem Noted Date Diagnosed Date [...] lantus/novolog-refer MTM----, Psychiatrist. Sees Dr Sanders-Lawrence @[facility] [phone] Morbid obesity 12/26/2016 Overview: Per Obesity protocol #1 PMB (postmenopausal bleeding) 11/12/2013 Chronic cough 08/22/2023 Productive cough 08/22/2023 Overview (12/18/2012): chronic Left knee injury 06/09/2023 Elevated WBC count 4 documented as of this encounter (statuses as of 02/06/2024) Immunizations Name Administration Dates Next Due COVID-19 mRNA, LNP-s, No Pre serve, 2-Dose Series (eReplacements) 09/21/2020,05/22/2020 COVID-19, MRNA-LNP, PF, 30 M CG/0.3 mL, 12 YRS AND ABOVE, IM (PFIZER-Comirnaty) 02/03/2024,08/25/2023,01/07/2023,09/06 Covid-19, Mrna, Lnp-s, Pf, B ivalent, 30 Mcg, IM, 12 yrs and above (Pfizer) 05/09/2022 Pneumococcal Conjugate Vacci ne, 20-valent ([id number]) 05/09/2022 Pneumococcal Polysaccharide PPV23 (Pneumovax) 07/09/2013 RSV [...] Team (Late st Contact Info) Description 02/17/2024 10:00 AM EST Home Visit [facility] at [facility] [address] [place] [address] [address] Jose Newell, RN [address] [place] [address] 02/17/2024 11:30 AM EST Imaging Radiology [facility] 1st Floor, [place] [address] [place] [address] [address] 02/17/2024 12:00 PM EST Imaging Radiology [facility] [address] [place] [address] 03/03/2024 3:00 PM EST Office Visit Cardiology, [facility] [address] [place] [address] Shaw Hickey, DO [address] [place] [address] 03/09/2024 3:00 PM EST Office Visit Family Practice [address] [facility] [place] 293 [place] [phone] Aviva Rossi, DO 293 [facility] [place] [address] Scheduled Procedures Name Priority Associated Diagnoses Date/Ti [...] and were consensually agreed upon. Care Teams Cloth Trimmer Hand Relationship Specialty Start Date End Date Aviva Rossi DO 293 [place] [address] PCP - General Family Medicine 09/09/23 documented as of this encounter
--- OUTSIDE RECORDS SUMMARY | 2024-03-26 01:01 | External Medical Summary | Summary of Care ---
Author Name Unknown Organization [facility] Address [address] [place] [address] Phone [phone] Care Team Providers Care It Technical Architect Name Role Phone Aviva Rossi DO Primary Care Provider [phone] Reason for Visit * Reason Onset Date Comments Dosage Adjustment In Person (Anticoag Clinic) Medication Management Medication Administration 02/03/2024 Flu an d/or Pneumo Inj Encounter Details Date Type Department Care Team (Late st Contact Info) Description 02/03/2024 1:10 PM [facility] Pharmacy Family Practice 65 [facility] 293 [place] [phone] [place], Pharmacist [address] [address] Medication management*; Need for prophylactic vaccination and inoculation against influenza; Need for COVID-19 vaccine Allergies Active Allergy Reactions Criticality Noted Date Comments Codeine 11/20/2012 Nausea and vomiting Lisinopril 06/12/2015 ?cough Penicillin G 11/20/2012 Hives Hydrocodone-Acetaminophen 11/20/2012 Nausea and vomiting documented as of this encounter (statuses as of 02/05/2024) Medications Cyanocobalamin 1000 MCG Oral Tablet (Cyanocobalamin) [...] 3 4 7:46 AM EDT 08/07/19 23 Active NovoLOG FlexPen 100 UNIT/ML Subcutaneous Solution Pen-injector (insulin aspart) INJECT WITH WITH EACH MEAL PER CARB RATIO 1:7 AND CORRECTION FACTOR 1:20>120 MAX DAILY DOSE 35 UNITS 30 mL 3 4 10:35 AM EST 10/04/19 23 Active Xultophy 100-3.6 UNIT-MG/ML Subcutaneous Solution Pen-injector (Insulin Degludec-Liragluti de) Inject up to 50 units under the skin daily as directed per titration schedule 45 mL 3 4 1:01 PM EDT 11/28/19 23 Active buPROPion [...] PM EDT 01/23/20 24 025 Active Pen Oral 3/16" 31G X 5 MM Use daily [...] as needed for Constipation. 10/24/19 24 Active Systane Complete PF 0.6 % Ophthalmic Solution (Propylene Glycol (PF)) Instill 1 Drop into eye as needed for Dry eyes. 09/04/19 23 024 Discontin ued(Medic ation List Clean Up) Insulin Syringe-Needle U-100 30G X 5/16" 0.3 ML USE TO INJECT TWO TO THREE TIMES DAILY 300 Each 3 4 5:12 PM EDT 07/16/19 23 024 Discontin ued(Medic ation List Clean Up) Losartan Potassium 25 MG Oral Tablet (Cozaar)Indication s:Hypertension goal BP (blood pressure) < 140/90 Take 1 Tablet by mouth in the morning. 100 Tablet 3 4 8:08 AM EDT 09/16/19 24 024 Discontin ued(Medic ation List Clean Up) traMADol HCl 50 MG Oral Tablet (Ultram)Indication s:Lumbar radiculopathy Take 1 Tablet by mouth daily as needed for Pain, Severe. 30 Tablet 09/16/19 24 024 Discontin ued(Medic ation List Clean Up) Furosemide 40 MG Oral Tablet (Lasix) TAKE ONE TABLET BY MOUTH IN THE MORNING 100 Tablet 3 4 6:07 PM EDT 09/29/19 24 024 Discontin ued(Medic ation List Clean Up) Apixaban 5 MG Oral Tablet (Eliquis)Indicatio ns:Hospital discharge follow-up,Atrial fibrillation with RVR (HCC) TAKE ONE TABLET BY MOUTH IN THE MORNING AND ONE TABLET BEFORE BEDTIME 200 Tablet 3 4 9:46 AM EDT 10/01/19 24 024 Discontin ued(Medic ation List Clean Up) Sulfamethoxazole-T rimethoprim 800-160 MG Oral Tablet (Bactrim DS) Take 1 Tablet by mouth in the morning and 1 Tablet before bedtime. Do all this for 7 days. Until gone. 14 Tablet 10/02/19 24 024 Discontin ued(Medic ation List Clean Up) Nitrofurantoin Monohyd Macro 100 MG Oral Capsule (Macrobid) Take 1 Capsule by mouth in the morning and 1 Capsule before bedtime. Do all this for 7 days. With food until gone. 14 Capsule 10/08/19 24 024 Discontin ued(Medic ation List Clean Up) Ondansetron HCl 4 MG Oral TabletIndications: Nausea Take 1 Tablet by mouth every 6 hours as needed for Nausea. 30 Tablet 10/08/19 24 024 Discontin ued(Refil l) Amiodarone HCl 200 MG Oral Tablet (Cordarone) Take 1 Tablet by mouth in the morning. 024 Discontin ued(Refil l) Bumetanide 2 MG Oral Tablet Take 1 Tablet by mouth in the morning. 11/28/19 24 Discontin ued(Refil l) buPROPion HCl ER (Smoking Det) 150 MG Oral Tablet Extended Release 12 Hour TAKE 1 TABLET BY MOUTH EVERY DAY WITH 100MG FOR A TOTAL DAILY DOSE OF 250MG IN THE MORNING 10/27/19 24 Discontin ued(Medic ation List Clean Up) Ciprofloxacin HCl 250 MG Oral Tablet (Cipro)Indications :Urinary tract infection without hematuria, site unspecified Take 1 Tablet by mouth in the morning and 1 Tablet before bedtime. Do all this for 4 days. 8 Tablet 01/21/20 24 Discontin ued(Medic ation List Clean Up) Bacid Oral CapsuleIndications :Urinary tract infection without hematuria, site unspecified,Need for prophylactic measure Take 1 Capsule by mouth in the morning and 1 Capsule at noon and 1 Capsule in the evening. Take before meals. 30 Capsule 01/21/20 24 Discontin ued(Medic ation List Clean Up) Benzonatate 100 MG Oral Capsule (Tessalalexander Rivera) Take 1 Capsule by mouth 3 times a day as needed for Cough. Discontin ued(Medic ation List Clean Up) documented as of this encounter (statuses as of 02/05/2024) Active Problems Problem Noted Date Diagnosed Date [...] as of this encounter (statuses as of 02/05/2024) Resolved Problems Problem Noted Date Diagnosed Date [...] start lantus/novolog-refer MTM----, Psychiatrist. Sees Dr Sanders-Lawrence @[facility] [phone] Morbid obesity 12/26/2016 Overview: Per Obesity protocol #1 PMB (postmenopausal bleeding) 11/12/2013 Chronic cough 08/22/2023 Productive cough 08/22/2023 Overview (12/18/2012): chronic Left knee injury 06/09/2023 Elevated WBC count 4 documented as of this encounter (statuses as of 02/05/2024) Immunizations Name Administration Dates Next Due COVID-19 mRNA, LNP-s, No Pre serve, 2-Dose Series (Neurotrack) 09/21/2020,05/22/2020 COVID-19, MRNA-LNP, PF, 30 M CG/0.3 mL, 12 YRS AND ABOVE, IM ([facility]) 02/03/2024,08/25/2023,01/07/2023,09/06 Covid-19, Mrna, Lnp-s, Pf, B ivalent, 30 Mcg, IM, 12 yrs and above (Neurotrack) 05/09/2022 Pneumococcal Conjugate Vacci ne, 20-valent ([id number]) 05/09/2022 Pneumococcal Polysaccharide PPV23 (Pneumovax) 07/09/2013 RSV [...] Used Date Smoking Tobacco: Former Cigarettes 1 Passive Smoke Exposure: Past Smokeless Tobacco: Former [...] on file documented as of this encounter Patient Instructions * Patient Instructions* Gaby Leahy RPh - 02/03/2024 1:47 PM EST ~~PATIENT INSTRUCTIONS FOR FLU SHOT~~ Possible side effects of influenza vaccine, (flu shot), are usually mild and include: 1. Soreness or redness at injection site 2. Low grade fever 3. Body aches You may use Tylenol/Acetaminophen as needed for these symptoms. LET YOUR DOCTOR KNOW IMMEDIATELY IF YOU HAVE DIFFICULTY BREATHING OR SWALLOWING, EXPERIENCE ITCHINGOF FEET OR HANDS, HAVE SWELLING OF EYES, FACE OR INSIDE OF NOSE. documented in this encounter Progress Notes * Gaby Leahy RPh - 02/03/2024 1:25 PM EST Medication Therapy Disease [facility] - Medication Reconciliation Encounter Type: discussed with patient Med Bottles Available for Review: no Med Rec Reason: Other - re-establishment Prescription insurance information: [employer] [place] Do you have any other prescription coverage: No [email or web address] [x] Problem list reviewed [x] Allergies reviewed and updated if needed [x] Drug interaction check completed [x] HEDIS list addressed Immunizations: Facilitated Administration Of: Influenza and COVID Date of Hospital Admission/Primary Diagnosis: [facility] - hematoma - 10/12/23 Date of Discharge from Hospital: patient then discharged to [facility] and to home 11/17/23 Medication changes during admission/on discharge: Added: bumetanide (switched from furosemide at [facility]), amiodarone 200mg daily (tapered) Modified: none Discontinued: furosemide, losartan (low BP), metoprolol not tolerated, eliquis (hematoma) Does the patient currently have all of their medications in their home?: unknown - reports she needs RF on amiodarone and bumetanide - request sent to cardio Was without insurance for a period and was getting meds from [facility] as well as [facility] Labs/Vitals/Risk Scores: The 10-year ASCVD risk score (Vianney NATHAN, et al., 2019) is: 18.9% Values used to calculate the score: Age: 68 years Sex: Female Is Non- : No Diabetic: Yes Tobacco smoker: No Systolic Blood Pressure: 118 mmHg Is BP treated: Yes HDL Cholesterol: 58 mg/dL Total Cholesterol: 173 mg/dL BP Readings from Last 3 Encounters: 01/21/24 118/62 10/01/23 118/64 09/22/23 100/58 Recent Labs Units 06/17/23 0952 01/07/23 1237 08/06/22 1624 HEMOGLOBIN A1C - [facility] % 6.1* 6.5* 6.8* Recent Labs Units 09/16/23 1130 08/25/23 1300 06/17/23 0952 ESTIMATED GLOMERULAR FILTRATION RATE - [facility] mL/min 49* 59* 71 Serum creatinine: 1.2 mg/dL (H) 09/16/23 1130 Estimated creatinine clearance: 54.8 mL/min (A) Assessment & Plan: Medication discrepancies identified: updated per discharge and patient account Patient wants scripts for benzonatate, ondansetron as well - PCP informed. Dose/frequency of medications appropriate for current renal function? yes Other medication problems identified: need to reinstate CGMs - messaged [facility] to get restarted. Patient education provided: regarding vaccines, stroke risk off anticoagulation, and medication adherence Referral pended for follow up management of: N/A Summary- Changes & Recommendations: Med rec completed with patient. Updated meds. Messaged [facility] through [employer] portal to restart CGM shipments. I spent a total of 30-39 minutes (exact time 35 mins) on the date of service in preparation, delivery, and documentation of the care provided to Lisa Gamboa excluding any time spent in the performance of separately billed services or time spent by another provider/QHP. Gaby Perez [facility] Clinical Pharmacist - Edi Programmer Medication Therapy Management [facility] 02/03/2024, 1:25 PM documented in this encounter Plan of Treatment Upcoming Encounters Date Type Department Care Team (Late st Contact Info) Description 02/17/2024 10:00 AM EST Home Visit [facility] [place] 132 [facility] [place] [address] Jose Newell, RN 132 [facility] [place] [address] 02/17/2024 11:30 AM EST Imaging Radiology [facility]st [facility] [address] [facility] [place] [address] 02/17/2024 12:00 PM EST Imaging Radiology [facility] 132 [facility] [place] [address] 03/03/2024 3:00 PM EST Office Visit Cardiology, [facility] 132 [facility] [place] [address] Shaw Hickey, DO 132 [facility] [place] [address] 03/09/2024 3:00 PM EST Office Visit Family Practice 65 [facility] [place] 293 [place] [address] Aviva Rossi, DO 293 [place] [address] Scheduled Procedures Name Priority Associated Diagnoses Date/Ti [...] for long-term (current) use of other medications Need for prophylactic vaccination and inoculation against influenza Need for COVID-19 vaccine documented in this encounter Advance Directives * [...] and were consensually agreed upon. Care Teams It Technical Architect Relationship Specialty Start Date End Date Aviva Rossi DO 293 [place] [address] PCP - General Family Medicine 09/09/23 documented as of this encounter
--- OUTSIDE RECORDS SUMMARY | 2024-03-26 01:01 | External Medical Summary | Summary of Care ---
Author Name Unknown Organization [facility] Address [address] [place] [address] Phone [phone] Care Team Providers Care Director Of Workforce Development Name Role Phone BrianLucy rusttita Gonzales DO Primary Care Provider Reason for Visit * Reason Onset Date Comments Appointment 02/09/2024 Encounter Details Date Type Department Care Team (Late st Contact Info) Description 02/09/2024 Telephone [facility] [place] [address] [place], [place] [phone] Trini Uribe OSA [address] [place] [address] Appointment Allergies Active Allergy Reactions Criticality Noted Date Comments Codeine 11/20/2012 Nausea and vomiting Lisinopril 06/12/2015 ?cough Penicillin G 11/20/2012 Hives Hydrocodone-Acetaminophen 11/20/2012 Nausea and vomiting documented as of this encounter (statuses as of 02/09/2024) Medications Cyanocobalamin 1000 MCG Oral Tablet (Cyanocobalamin) [...] PM EDT 01/23/20 24 025 Active Pen Magdalena 3" 31G X 5 MM Use daily [...] as of this encounter (statuses as of 02/09/2024) Active Problems Problem Noted Date Diagnosed Date [...] as of this encounter (statuses as of 02/09/2024) Resolved Problems Problem Noted Date Diagnosed Date [...] start lantus/novolog-refer MTM----, Psychiatrist. Sees Dr Sanders-Lawrence @[facility] [phone] Morbid obesity 12/26/2016 Overview: Per Obesity protocol #1 PMB (postmenopausal bleeding) 11/12/2013 Chronic cough 08/22/2023 Productive cough 08/22/2023 Overview (12/18/2012): chronic Left knee injury 06/09/2023 Elevated WBC count 4 documented as of this encounter (statuses as of 02/09/2024) Immunizations Name Administration Dates Next Due COVID-19 mRNA, LNP-s, No Pre serve, 2-Dose Series ([employer]) 09/21/2020,05/22/2020 COVID-19, MRNA-LNP, PF, 30 M CG/0.3 mL, 12 YRS AND ABOVE, IM ([facility]) 02/03/2024,08/25/2023,01/07/2023,09/06 Covid-19, Mrna, Lnp-s, Pf, B ivalent, 30 Mcg, IM, 12 yrs and above (Pfizer) 05/09/2022 Pneumococcal Conjugate Vacci ne, 20-valent ([id number]) 05/09/2022 Pneumococcal Polysaccharide PPV23 (Pneumovax) 07/09/2013 RSV [...] Telephone Encounter - Trini Uribe OSA - 02/09/2024 3:28 PM EST Incoming call from patient - needed to rescheduled February 16 home visit with Jose Newell to February 17 at 2:30 pm because has mammogram same day on the . documented in this encounter Plan of Treatment Upcoming Encounters Date Type Department Care Team (Late st Contact Info) Description 02/17/2024 11:30 AM EST Imaging Radiology [address] [place] [address] 02/17/2024 12:00 PM EST Imaging Radiology [facility] 132 [facility] [place] [address] 02/18/2024 2:30 PM EST Home Visit [facility], [facility] [address] [place] [address] Jose Newell, RN [address] [place] [address] 02/24/2024 1:00 PM EST Telemedicine Family Practice [address] [place] [address] 293 [place] [phone] College, Pharmacist [address] [place] [address], [place] [address] 03/03/2024 3:00 PM EST Office Visit Cardiology, [facility] [place] 132 [facility] [place] [address] Shaw Hickey, DO 132 [facility] [place] [address] 03/09/2024 3:00 PM EST Office Visit Family Practice [address] [place] [address] 293 [place] [phone] Aviva Rossi, DO 293 [place] [address] Scheduled Procedures Name Priority Associated Diagnoses Date/Ti [...] consensually agreed upon. Care Teams Director Of Workforce Development Relationship Specialty Start Date End Date Aviva Rossi DO [address] [place] [facility] [place] [address] PCP - General Family Medicine 09/09/23 documented as of this encounter
--- OUTSIDE RECORDS SUMMARY | 2024-03-26 01:01 | External Medical Summary | Summary of Care ---
Author Name Unknown Organization [facility] Address [address] [place] [address] Phone [phone] Care Team Providers Care Denitrator Name Role Phone BrianAviva rust Christian GRIGGS Primary Care Provider Encounter Details Date Type Department Care Team (Late st Contact Info) Description 02/05/2024 Population Health External Data Unspecified Department Allergies [...] PM EDT 01/23/20 24 025 Active Pen [place] 06/06" 31G X 5 MM Use daily [...] start lantus/novolog-refer MTM----, Psychiatrist. Sees Dr Sanders-Lawrence @[facility] [phone] Morbid obesity 12/26/2016 Overview: Per Obesity protocol #1 PMB (postmenopausal bleeding) 11/12/2013 Chronic cough 08/22/2023 Productive cough 08/22/2023 Overview (12/18/2012): chronic Left knee injury 06/09/2023 Elevated WBC count 4 documented as of this encounter (statuses as of 02/05/2024) Immunizations Name Administration Dates Next Due COVID-19 mRNA, LNP-s, No Pre serve, 2-Dose Series ([employer]) 09/21/2020,05/22/2020 COVID-19, MRNA-LNP, PF, 30 M CG/0.3 mL, 12 YRS AND ABOVE, IM (PFIZER-Comirnat) 02/03/2024,08/25/2023,01/07/2023,09/06 Covid-19, Mrna, Lnp-s, Pf, B ivalent, 30 Mcg, IM, 12 yrs and above (Pfizer) 05/09/2022 Pneumococcal Conjugate Vacci ne, 20-valent ([id number]) 05/09/2022 Pneumococcal Polysaccharide PPV23 (Pneumovax) 07/09/2013 RSV [...] Description 02/17/2024 10:00 AM EST Home Visit [facility] [address] [place] [address] Jose Newell, RN 132 [place] [address] 02/17/2024 11:30 AM EST Imaging Radiology [facility] 1st Floor, [place] [address] [place] [address] 02/17/2024 12:00 PM EST Imaging Radiology [facility] [address] [place] [address] 03/03/2024 3:00 PM EST Office Visit Cardiology, [facility] [address] [place] [address] Shaw Hickey, DO [address] [place] [address] 03/09/2024 3:00 PM EST Office Visit Family Practice [address], [place] 293 [place] [phone] Aviva Rossi, DO 293 [place] [address] Scheduled Procedures Name Priority Associated Diagnoses Date/Ti [...] and were consensually agreed upon. Care Teams Denitrator Relationship Specialty Start Date End Date Aviva Rossi DO 293 [place] [address] PCP - General Family Medicine 09/09/23 documented as of this encounter
--- OUTSIDE RECORDS SUMMARY | 2024-03-26 01:01 | External Medical Summary | Summary of Care ---
Author Name Unknown Organization [facility] Address [address] [place] [address] Phone [phone] Care Team Providers Care Telecom Billing Analyst Name Role Phone BrianAviva rust Christian GRIGGS Primary Care Provider Encounter Details Date Type Department Care Team (Late st Contact Info) Description 02/09/2024 Population Health External Data Unspecified Department Allergies [...] PM EDT 01/23/20 24 025 Active Pen Melbeta 06/06" 31G X 5 MM Use daily [...] lantus/novolog-refer MTM----, Psychiatrist. Sees Dr Sanders-Lawrence @[facility] [phone] Morbid obesity 12/26/2016 Overview: Per Obesity protocol #1 PMB (postmenopausal bleeding) 11/12/2013 Chronic cough 08/22/2023 Productive cough 08/22/2023 Overview (12/18/2012): chronic Left knee injury 06/09/2023 Elevated WBC count 4 documented as of this encounter (statuses as of 02/09/2024) Immunizations Name Administration Dates Next Due COVID-19 mRNA, LNP-s, No Pre serve, 2-Dose Series ([employer]rav[employer]) 09/21/2020,05/22/2020 COVID-19, MRNA-LNP, PF, 30 M CG/0.3 mL, 12 YRS AND ABOVE, IM (PFIZER-Comirnat) 02/03/2024,08/25/2023,01/07/2023,09/06 Covid-19, Mrna, Lnp-s, Pf, B ivalent, 30 Mcg, IM, 12 yrs and above (Pfizer) 05/09/2022 Pneumococcal Conjugate Vacci ne, 20-valent ([id number]) 05/09/2022 Pneumococcal Polysaccharide PPV23 (Pneumovax) 07/09/2013 RSV [...] Description 02/17/2024 10:00 AM EST Home Visit [facility] [address] [place] [address] Jose Newell, RN 132 [place] [address] 02/17/2024 11:30 AM EST Imaging Radiology [facility] 1st Floor, [place] [address] [place] [address] 02/17/2024 12:00 PM EST Imaging Radiology [facility] [address] [place] [address] 03/03/2024 3:00 PM EST Office Visit Cardiology, [facility] [address] [place] [address] Shaw Hickey, DO [address] [place] [address] 03/09/2024 3:00 PM EST Office Visit Family Practice [address], [place] 293 [place] [phone] Aviva Rossi, DO 293 [place] [address] Scheduled Procedures Name Priority Associated Diagnoses Date/Ti [...] and were consensually agreed upon. Care Teams Telecom Billing Analyst Relationship Specialty Start Date End Date Aviva Rossi DO 293 [facility] [place] [address] PCP - General Family Medicine 09/09/23 documented as of this encounter
--- OUTSIDE RECORDS SUMMARY | 2024-03-26 01:01 | External Medical Summary | Summary of Care ---
Author Name Unknown Organization [facility] Address [address] [place] [address] Phone [phone] Care Team Providers Care Hat Finisher Name Role Phone Aviva Rossi DO Primary Care Provider Reason for Visit * Reason Onset Date Comments Test Results 02/04/202402/04; 02/05 Encounter Details Date Type Department Care Team (Late st Contact Info) Description 02/04/2024 Telephone Family Practice 65 [facility] [place] [address] [place] [phone] Aviva Rossi DO 293 [place] [address] Test Results (02/04; 02/05) Allergies Active Allergy Reactions Criticality Noted Date [...] PM EDT 01/23/20 24 025 Active Pen [place] 3" 31G X 5 MM Use daily [...] start lantus/novolog-refer MTM----, Psychiatrist. Sees Dr Sanders-Lawrence @[facility] [phone] Morbid obesity 12/26/2016 Overview: Per Obesity protocol #1 PMB (postmenopausal bleeding) 11/12/2013 Chronic cough 08/22/2023 Productive cough 08/22/2023 Overview (12/18/2012): chronic Left knee injury 06/09/2023 Elevated WBC count 4 documented as of this encounter (statuses as of 02/09/2024) Immunizations Name Administration Dates Next Due COVID-19 mRNA, LNP-s, No Pre serve, 2-Dose Series (Webs[employer]ort) 09/21/2020,05/22/2020 COVID-19, MRNA-LNP, PF, 30 M CG/0.3 mL, 12 YRS AND ABOVE, IM ([facility]) 02/03/2024,08/25/2023,01/07/2023,09/06 Covid-19, Mrna, Lnp-s, Pf, B ivalent, 30 Mcg, IM, 12 yrs and above (Pfizer) 05/09/2022 Pneumococcal Conjugate Vacci ne, 20-valent ([id number]) 05/09/2022 Pneumococcal Polysaccharide PPV23 (Pneumovax) 07/09/2013 RSV [...] Miscellaneous Notes * Telephone Encounter - Gaby Leahy RPh - 02/09/2024 2:16 PM EST Noted and patient added to schedule. Also contacted [facility] medical again for patient's sensors. Gaby Martinez, Pharm D, BCACP Clinical Pharmacist [address] - [facility] 02/09/2024, 2:18 PM Ph. [phone] * Telephone Encounter - Aviva Rossi DO - 02/09/2024 10:17 AM EST Noted. Gaby, can you place on schedule in 2 weeks go check in? A1C 7.2 but big jump for her. * Telephone Encounter - Michelle Tim LPN - 02/06/2024 10:13 AM EST Call placed to patient and relayed information from Dr. Rossi. Pt acknowledged understanding. Pt reports she is not always consistent with Levothyroxine. States difficulty always taking first thing in the morning d/t her cough. She is taking Doxy and Tessalon perles and reports they are helping with the cough. States she will work on doing a better job taking levothyroxine. Agreeable to f/u with Gaby. States she knows she needs to do better with carb intake. * Telephone Encounter - Lisa Marquez LPN - 02/05/2024 2:56 PM EST Called, left message for patient to return call. Sent my [employer] message. Nursing will discuss. Thank you * Telephone Encounter - Aviva Rossi DO - 02/04/2024 2:26 PM EST Please let pt know: Her anemia is nearly back to normal. TSH was off but downstream T4 is normal. Has she been consistent with her thyroid medication? A1C increased to 7.2. This is not terrible but a big jump for her. I will ask Gaby to f/u in 2 weeks to see what sugars are doing. Renal function appears to be stable. Otherwise, lab studies ok. documented in this encounter Plan of Treatment Upcoming Encounters Date Type Department Care Team (Late st Contact Info) Description 02/17/2024 10:00 AM EST Home Visit [facility] 132 [facility] [place] [address] Jose Newell, RN 132 [place] [address] 02/17/2024 11:30 AM EST Imaging Radiology [address] 132 [facility] [place] [address] 02/17/2024 12:00 PM EST Imaging Radiology [facility] 132 [facility] [place] [address] 02/24/2024 1:00 PM EST Telemedicine Family Practice [address] [place] [address] 293 [place] [address] College, Pharmacist [address] [place] [address], [place] [address] 03/03/2024 3:00 PM EST Office Visit Cardiology, [facility] 132 [facility] [place] [address] Shaw Hickey, DO 132 [facility] [place] [address] 03/09/2024 3:00 PM EST Office Visit Family Practice [address] [place] [address] 293 [place] [address] Aviva Rossi, DO 293 [facility] [place] [address] Scheduled Procedures Name Priority Associated Diagnoses Date/Ti [...] hemoglobin A1c goal of less than 8.0% ([facility])- Primary documented in this encounter Advance Directives [...] and were consensually agreed upon. Care Teams Hat Finisher Relationship Specialty Start Date End Date Aviva Rossi DO [address] [place] [address] PCP - General Family Medicine 09/09/23 documented as of this encounter
--- OUTSIDE RECORDS SUMMARY | 2024-03-26 01:02 | External Medical Summary | Summary of Care ---
Author Name Unknown Organization [facility] Address [address] [place] [address] Phone [phone] Care Team Providers Care Compound Mixer Name Role Phone Aviva Rossi DO Primary Care Provider [phone] Reason for Visit * Reason Onset Date Comments Appointment 02/03/2024 Cardiology Encounter Details Date Type Department Care Team (Late st Contact Info) Description 02/03/2024 Telephone Family Practice 65 [facility] [place] 293 [place] [address] Aviva Rossi DO 293 [place], [place] [phone] Appointment (Cardiology) Allergies Active Allergy Reactions Criticality Noted Date Comments Codeine 11/20/2012 Nausea and vomiting Lisinopril 06/12/2015 ?cough Penicillin G 11/20/2012 Hives Hydrocodone-Acetaminophen 11/20/2012 Nausea and vomiting documented as of this encounter (statuses as of 02/04/2024) Medications Cyanocobalamin 1000 MCG Oral Tablet (Cyanocobalamin) [...] PM EDT 01/23/20 24 025 Active Pen Pharr 316" 31G X 5 MM Use daily to inject insulin 4 times daily 400 Each 1 01/23/20 24 Active FLUoxetine HCl 20 MG [...] as needed for Dyspnea. 54 g 1 01/23/20 24 Active Insulin Glargine Solostar 100 [...] for Nausea. 30 Tablet 02/03/20 24 Active documented as of this encounter (statuses as of 02/04/2024) Active Problems Problem Noted Date Diagnosed Date [...] as of this encounter (statuses as of 02/04/2024) Resolved Problems Problem Noted Date Diagnosed Date [...] JcBlair-CT chest angio WNL 10/06 EGD WNL. 10/16 EGD WNL. Consider gaviscon, Manometry 12/05 colonoscopy-5mm polyps--path---tubular adenoma. TRUONG 5 years 11/04 PFTs done. Some improvement w/albuterol. 08/04 TTE-mild delcid dysfunction 07/05 start lantus/novolog-refer MTM----, Psychiatrist. Sees Dr Sanders-Lawrence @[facility] [phone] Morbid obesity 12/26/2016 Overview: Per Obesity protocol #1 PMB (postmenopausal bleeding) 11/12/2013 Chronic cough 08/22/2023 Productive cough 08/22/2023 Overview (12/18/2012): chronic Left knee injury 06/09/2023 Elevated WBC count 4 documented as of this encounter (statuses as of 02/04/2024) Immunizations Name Administration Dates Next Due COVID-19 mRNA, LNP-s, No Pre serve, 2-Dose Series (Emme E2MS) 09/21/2020,05/22/2020 COVID-19, MRNA-LNP, PF, 30 M CG/0.3 mL, 12 YRS AND ABOVE, IM (Avisena-Comirnat) 02/03/2024,08/25/2023,01/07/2023,09/06 Covid-19, Mrna, Lnp-s, Pf, B ivalent, 30 Mcg, IM, 12 yrs and above (Emme E2MS) 05/09/2022 Pneumococcal Conjugate Vacci ne, 20-valent ([id number]) 05/09/2022 Pneumococcal Polysaccharide PPV23 (Pneumovax) 07/09/2013 RSV [...] Telephone Encounter - Mary Ny OSA - 02/04/2024 8:28 AM EST Spoke to patient and made aware of appt day and time with Dr Hickye * Telephone Encounter - Agustin Pastor OSA - 02/03/2024 3:44 PM EST Patient has been scheduled on: RETURN CARDIOLOGY at 3:00 PM (30 min)Arrive by 2:45 PM Sunday March 03, 2024 Appointment Provider:Shaw Hickey DO in CARDIOLOGY [facility] * Telephone Encounter - Mary Ny OSA - 02/03/2024 3:19 PM EST Reschedule with Dr. Ashish Hickey ASAP Per check out note Please call with date and time documented in this encounter Plan of Treatment Upcoming Encounters Date Type Department Care Team (Late st Contact Info) Description 02/17/2024 10:00 AM EST Home Visit [facility] [place], [address] [place] [address] Jose Newell, RN [address] [place] [address] 03/03/2024 3:00 PM EST Office Visit Cardiology, [facility] [address] [place] [address] Shaw Hickey, DO [address] [place] [address] 03/09/2024 3:00 PM EST Office Visit Family Practice [address] [place] [address] 293 [place] [phone] Aviva Rossi, DO 293 [facility] [place] [address] Scheduled Procedures Name Priority Associated Diagnoses Date/Ti [...] and were consensually agreed upon. Care Teams Compound Mixer Relationship Specialty Start Date End Date Aviva Rossi DO [address] [place] [address] PCP - General Family Medicine 09/09/23 documented as of this encounter
--- OUTSIDE RECORDS SUMMARY | 2024-03-26 01:02 | External Medical Summary | Summary of Care ---
Author Name Unknown Organization [facility] Address [address] [place] [address] Phone [phone] Care Team Providers Care Snagger Name Role Phone BrianLucy rusttita Gonzales DO Primary Care Provider Encounter Details Date Type Department Care Team (Latest Contact Info) Description 02/04/2024 Medication Management [facility] C[facility] [address] [place] [address] Luz Shaffer, [facility] [address] [facility] [address] Referred for medication therapy management* Allergies Active Allergy Reactions Criticality Noted [...] PM EDT 01/23/20 24 025 Active Pen [place] 06/06" 31G X 5 MM Use daily [...] mouth in the morning. 100 Tablet 3 02/03/20 24 Active Bumetanide 2 MG Oral Tablet Take 1 Tablet by mouth in the morning. 100 Tablet 3 02/03/20 24 Active documented as of this [...] Psychiatrist. Sees Dr Sanders-Lawrence @[facility] [phone] Morbid obesity 12/26/2016 Overview: Per Obesity protocol #1 PMB (postmenopausal bleeding) 11/12/2013 Chronic cough 08/22/2023 Productive cough 08/22/2023 Overview (12/18/2012): chronic Left knee injury 06/09/2023 Elevated WBC count 4 documented as of this encounter (statuses as of 02/04/2024) Immunizations Name Administration Dates Next Due COVID-19 mRNA, LNP-s, No Pre serve, 2-Dose Series ([employer]) 09/21/2020,05/22/2020 COVID-19, MRNA-LNP, PF, 30 M CG/0.3 mL, 12 YRS AND ABOVE, IM ([facility]) 02/03/2024,08/25/2023,01/07/2023,09/06 Covid-19, Mrna, Lnp-s, Pf, B ivalent, 30 Mcg, IM, 12 yrs and above ([employer]) 05/09/2022 Pneumococcal Conjugate Vacci ne, 20-valent ([id number]) 05/09/2022 Pneumococcal Polysaccharide PPV23 (Pneumovax) 07/09/2013 RSV [...] Years Used Date Smoking Tobacco: Former Cigarettes 25 Passive Smoke Exposure: Past Smokeless Tobacco: [...] as of this encounter Progress Notes * Cassandra Hayward electrical engineering draftsperson - 02/04/2024 8:34 AM EST Lisa Gamboa is a 68 year old female. TMR Interventions Incomplete Encounter MTPs No medication therapy recommendations to display Complete Encounter MTPs Referred for medication therapy management 1 Rationale: Patient Education - Needs Education - Safety Recommendation: Provide Education Status: No Longer Relevant Identified Date: 02/04/2024 Completed Date: 02/04/2024 Note: TMR for safe use of opioid therapy. Patient is no longer taking an opioid. Assessment & Plan Indication, effectiveness, safety and convenience of her medications were reviewed today. The patient's medical conditions were assessed, evaluated, and deemed meeting goals of drug therapy, with thefollowing exceptions. Cassandra Hayward electrical engineering draftsperson 02/04/2024, 8:34 AM documented in this encounter Plan of Treatment Upcoming Encounters Date Type Department Care Team (Late st Contact Info) Description 02/17/2024 10:00 AM EST Home Visit [facility] [place], [address] [place] [address] Jose Newell, RN [address] [place] [address] 03/03/2024 3:00 PM EST Office Visit Cardiology, [facility] 132 [facility] [place] [address] Shaw Hickey, DO 132 [facility] [place] [address] 03/09/2024 3:00 PM EST Office Visit Family Practice [address] [place] [address] 293 [place] [phone] Aviva Rossi, DO 293 [place] [address] Scheduled Procedures Name Priority Associated Diagnoses Date/Ti [...] this encounter Visit Diagnoses Diagnosis Referred for medication therapy management- Primary Encounter for long-term (current) use of other medications documented in this encounter Advance Directives * [...] and were consensually agreed upon. Care Teams Snagger Relationship Specialty Start Date End Date Aviva Rossi DO [address] [place] [address] PCP - General Family Medicine 09/09/23 documented as of this encounter
--- OUTSIDE RECORDS SUMMARY | 2024-03-26 01:02 | External Medical Summary | Summary of Care ---
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 [facility] Does patient have multiple co-morbid conditions? Yes Does patient have P insurance? Yes Comments Is referral coming from Care Coordination and Integration? No Reason for Visit * Reason Comments Re-Check Encounter Details Date Type Department Care Team (Latest Contact Info) Description 02/03/2024 1:40 PM EST Office Visit Family Practice [address] 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 100 Capsule 1 01/23/20 Active ProAir HFA 108 (90 Base) MCG/ACT Inhalation Aerosol SolutionIndication s:Shortness of breath,History of asthma Inhale 2 Puffs by mouth 4 times a day as needed for Dyspnea. 54 g 1 01/23/20 24 Active Polyethylene Glycol 3350 17 GM/SCOOP Oral Powder (MiraLax) Take 17 g by mouth daily as needed for Constipation. 10/24/19 24 Active Sennosides-Docusat e Sodium 8.6-50 MG Oral Tablet (Senokot-S) Take 1 Tablet by mouth as needed for Constipation. 10/24/19 Active Doxycycline Hyclate 100 MG Oral CapsuleIndications :Acute cough Take 1 Capsule by mouth in the morning and 1 Capsule before bedtime. Do all this for 10 days. Until gone.. 20 Capsule 02/03/20 24 Active Benzonatate 100 MG Oral CapsuleIndications :Acute cough Take 1 Capsule by mouth 3 times a day as needed for Cough. 30 Capsule 02/03/20 24 Active Ondansetron HCl 4 MG Oral TabletIndications: Nausea Take 1 Tablet by mouth every 6 hours as needed for Nausea. 30 Tablet 02/03/20 24 Active Systane Complete PF 0.6 % Ophthalmic Solution (Propylene Glycol (PF)) Instill 1 Drop into eye as needed for Dry eyes. 09/04/19 Discontin ued(Medic ation List Clean Up) Ondansetron HCl 4 MG Oral TabletIndications: Nausea Take 1 Tablet by mouth every 6 hours as needed for Nausea. 30 Tablet 10/08/19 24 Discontin ued(Refil l) Amiodarone HCl 200 MG Oral Tablet (Cordarone) Take 1 Tablet by mouth in the morning. Discontin ued(Refil l) Bumetanide 2 MG Oral Tablet Take 1 Tablet by mouth in the morning. 11/28/19 Discontin ued(Refil l) documented as of this [...] Psychiatrist. Sees Dr Sanders-Lawrence @[facility] [phone] Morbid obesity 12/26/2016 Overview: Per Obesity protocol #1 PMB (postmenopausal bleeding) 11/12/2013 Chronic cough 08/22/2023 Productive cough 08/22/2023 Overview (12/18/2012): chronic Left knee injury 06/09/2023 Elevated WBC count 4 documented as of this encounter (statuses as of 02/04/2024) Immunizations Name Administration Dates Next Due COVID-19 mRNA, LNP-s, No Pre serve, 2-Dose Series ([employer]) 09/21/2020,05/22/2020 COVID-19, MRNA-LNP, PF, 30 M CG/0.3 mL, 12 YRS AND ABOVE, IM ([facility]) 02/03/2024,08/25/2023,01/07/2023,09/06 Covid-19, Mrna, Lnp-s, Pf, B ivalent, 30 Mcg, IM, 12 yrs and above ([employer]) 05/09/2022 Pneumococcal Conjugate Vacci ne, 20-valent ([id number]) 05/09/2022 Pneumococcal Polysaccharide PPV23 (Pneumovax) 07/09/2013 RSV [...] Sign Reading Time Taken Comments Blood Pressure 120/74 02/03/2024 1:55 PM EST Pulse 67 02/03/2024 1:55 PM EST Temperature 36.1 C (96.9 F) 02/03/2024 1:55 PM ES T Respiratory Rate 16 02/03/2024 1:55 PM EST Oxygen Saturation 98% 02/03/2024 1:55 PM EST Inhaled Oxygen Concentration - - Weight 124 kg (273 lb 4.8 oz) 02/03/2024 1:55 PM EST Height 157.5 cm (5' 2") 02/03/2024 1:55 PM EST Body Mass Index 49.99 02/03/2024 1:55 PM EST documented in this encounter Patient Instructions * Patient Instructions* Michelle Tim LPN - 02/03/2024 1:52 PM EST Patient Instructions - Fall Prevention (This [...] that mean climbing, even on a stepstool. Flux Patient Education Copyright 2008 - 2010 [place] [...] (TEDs)if you have edema Michelle Tim LPN 02/03/2024 Kegel Exercises Kegel exercises dont require special [...] even more effective. [place] Patient Education Copyright 2008 - 2010 [...] please feel free to contact our office. documented in this encounter Progress Notes * Michelle Tim LPN - 02/03/2024 2:49 PM EST Pre-Administration Time Out Procedure Performed: Yes Patient Identified (Ask Name/Date of ): Yes Does the patient have a fever greater than 101 degrees today? No Patient allergic to latex? No Has the patient ever fainted after receiving an injection? No VFC Stock: No Immunization(s) verified: Yes, Immunization Name: COVID and Flu, VIS Sheet(s) given: Yes Verified Side and Site: Yes Verified Shot(s) with Parent(s)/Patient: Yes * Aviva Rossi DO - 02/03/2024 2:12 PM EST SUBJECTIVE: Chief Complaint Patient presents with Re-Check HPI: Lisa Gamboa is a 68 year old female who presents today for recheck. Pt has not been seen in months due to loss of insurance. Pt states that she has somebody coming in to help her get things "straightened out". She found her on [employer]. Her sister is still involved. She notes that nothing has really changed for her financially. She states that her papers are in disarray. She notes her insurance issues are worked out. Pt notes that she feels she is doing ok since she has been at home. She notes that her pain from the hemorrhage improved. She is not on a blood thinner. She states that she did discuss a Watchmen procedure with Dr. Hickey but did not f/u due to insurance. Pt feels that her sugars ok. She notes that she was thrown off by the regimen at [facility]. She feels she is getting it back under control. It has been up some but not like it was at [facility]. She has been paying for the G7 dexcom. She would like to get it from [facility] [employer]. Pt has had a cough that has worsened over the last week. She notes she started to feel sick with ittoday. She notes she has clear sputum. She feels tight. No wheezing. She is using albuterol fairly regularly. No fever. She has a lot of sinus congestion and runny nose, this started about 4-5 days ago. She feels tired. No sore throat. 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 Vision Formula Eye Health Oral Capsule Take 1 Capsule by mouth daily. Systane Complete PF 0.6 % Ophthalmic Solution (Propylene Glycol (PF)) Instill 1 Drop into eye as needed for Dry eyes. Levothyroxine Sodium 50 MCG Oral Tablet (Levoxyl) TAKE 1 TABLET BY MOUTH DAILY AT LEAST 30 MINUTES PRIOR TO FIRST MEAL OF THE DAY OR OTHER MEDICATIONS 100 Tablet 3 NovoLOG FlexPen 100 UNIT/ML Subcutaneous Solution Pen-injector (insulin aspart) INJECT WITH WITH EACH MEAL PER CARB RATIO 1:7 AND CORRECTION FACTOR 1:20>120 MAX DAILY DOSE 35 UNITS 30 mL 3 Xultophy 100-3.6 UNIT-MG/ML Subcutaneous Solution Pen-injector (Insulin Degludec-Liraglutide) Inject up to 50 units under the skin daily as directed per titration schedule 45 mL 3 buPROPion HCl ER (SR) 150 [...] G7 Sensor Use as directed. Through DME Ondansetron HCl 4 MG Oral Tablet Take 1 Tablet by mouth every 6 hours as needed for Nausea. 30 Tablet 0 Amiodarone HCl 200 MG Oral Tablet (Cordarone) Take 1 Tablet by mouth in the morning. Bumetanide 2 MG Oral Tablet Take 1 Tablet by mouth in the morning. Atorvastatin Calcium 20 MG Oral Tablet (Lipitor) TAKE ONE TABLET BY MOUTH DAILY 100 Tablet 1 [place] 06/06" 31G X 5 MM Use daily [...] as needed for Dyspnea. 54 g 1 Benzonatate 100 MG Oral Capsule (Tessalon Perles) Take 1 Capsule by mouth 3 times a day as needed for Cough. Insulin Glargine Solostar 100 UNIT/ML Subcutaneous Solution Pen-injector (Lantus SoloStar) Inject 5Units under the skin at bedtime. Polyethylene Glycol 3350 17 GM/SCOOP Oral Powder (MiraLax) Take 17 g by mouth daily as needed for Constipation. Sennosides-Docusate Sodium 8.6-50 MG Oral Tablet (Senokot-S) Take 1 Tablet by mouth as needed for Constipation. No current facility-administered medications for this visit. 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 Chronic cough DM (diabetes mellitus) ([facility]) Elevated WBC count 80s Endometrial cancer ([facility]) Ex-smoker 09/03/2013 IBS (irritable bowel syndrome) Left knee injury meniscus tear, medial condyle fracutre Major depression in partial remission ([facility]) Microalbuminuric diabetic nephropathy ([facility]) 04/28/2014 Morbid obesity ([facility]) Myasthenia gravis ([facility]) Ocular migraine Productive cough chronic PSVT (paroxysmal supraventricular tachycardia) ([facility]) 80s due to albuterol, theophylline Pyelonephritis [address] [place] [address] Sleep apnea Sleep apnea, obstructive Stress incontinence Past Surgical History: Procedure Laterality Date , INDUCED BY D&C COLONOSCOPY, DIAGNOSTIC (RECTUM) N/A 09/18/2022 hemorrhoids/multiple polyps/biopsies show adenomatous and tubulovillous adenoma/recall 3 months/[place] COLONOSCOPY, DIAGNOSTIC (RECTUM) N/A 02/05/2023 hemorrhoids/recall 3 years/Colonoscopy/[place] DENTAL SURGERY PROCEDURE NEC EGD, FLEXIBLE, DIAGNOSTIC 09/27/2015 normal/[facility] LAPAROSCOPY TOTAL HYSTX, UTERUS 250GM OR LESS TUBE/OVARY 02/02/2013 LAPAROSCOPIC HYSTERECTOMY REMOVAL TUBES AND OVARIES FOR UTERUS 250GM OR LESS performed by Elizabeth Phillips DO at OR [facility] Review of patient's allergies indicates: Allergen Reactions [...] fatigue, fever and unexpected weight change. Respiratory: Positive for cough. Negative for chest tightness, shortness of breath and wheezing. Cardiovascular: Negative for chest pain, palpitations and leg swelling. Gastrointestinal: Negative for abdominal pain, constipation, diarrhea, nausea and vomiting. Musculoskeletal: Negative for arthralgias, gait problem and joint swelling. Skin: Negative for color change, pallor and rash. OBJECTIVE: BP 120/74 (BP Site: Left Arm, BP Position: Sitting, BP Cuff Size: Large) | Pulse 67 | Temp 36.1 C(96.9 F) (Tympanic) | Resp 16 | Ht 1.575 m (5' 2") | Wt 124 kg (273 lb 4.8 oz) | SpO2 98% | BMI 49.99 kg/m | BSA 2.33 m PHYSICAL EXAM: Physical Exam Constitutional: General: She is not in acute distress. Appearance: She is well-developed. Cardiovascular: Rate and Rhythm: Normal rate and regular rhythm. Heart sounds: Normal heart sounds. No murmur heard. No friction rub. No gallop. Pulmonary: Effort: Pulmonary effort is normal. No respiratory distress. Breath sounds: No wheezing or rales. Comments: Decreased BS in left base Abdominal: General: Bowel sounds are normal. There [...] oriented to person, place, and time. ASSESSMENT/PLAN: (I48.91) Atrial fibrillation with RVR ([facility]) (primary encounter diagnosis) Plan: [facility] Pt presently on amiodarone. Has been off of anticoagulation since hospital stay. Was lost to f/u asshe had lost insurance. Improvement in hematoma. Will check lab studies. Will leave to cardiology to determine resumption of anticoagulation vs Watchman device. (S70.11XS) Hematoma of right iliopsoas muscle, sequela Plan: CBC WITH WBC DIFFERENTIAL, CBC WITH WBC DIFFERENTIAL As above. Pain improved overall. She will complete lab studies. (N63.13) Mass of lower outer quadrant of right breast Plan: MAMMOGRAM SCREENING SUZETTE BILATERAL, US BREAST LIMITED RIGHT Pt reports lump near 7 o'clock in right breast. Will check US and mammogram. Will await results. (R05.1) Acute cough Plan: Doxycycline Hyclate 100 MG Oral Capsule, Benzonatate 100 MG Oral Capsule Pt will start doxycycline. Tessalon as needed. (Z87.09) History of asthma Plan: pt using her Proair as needed. 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 Will await results. Working with MTM. Will see where A1c is given changes she had in [facility]. Does not seem she has been consistent since home. Working on getting her sensors covered. (E11.21) Microalbuminuric diabetic nephropathy ([facility]) Plan: CBC WITH WBC DIFFERENTIAL, COMPREHENSIVE METABOLIC PANEL, CBC WITH WBC DIFFERENTIAL, COMPREHENSIVE METABOLIC PANEL Will check lab studies. (E03.9) Acquired hypothyroidism Plan: TSH WITH FREE T4 IF INDICATED, [facility], TSH WITH FREE T4 IF INDICATED, T4, FREE Pt will remain on levothyroxine. Will complete lab studies. Will await results. (F32.4) Major depressive disorder, single episode, in partial remission (HCC) Plan: [facility] Pt will remain on current regimen. No changes. (G70.00) Myasthenia gravis (HCC) Plan: [facility] Pt has been stable. No changes for now. (E78.5) Dyslipidemia Plan: pt will remain on atorvastatin. Will need [facility] to see what meds are still available. (N39.0) Recurrent UTI Plan: URINALYSIS, POINT OF CARE (ENTER/EDIT) Pt unable to urinate. She will call [facility] for specimen if return of symptoms. (R11.0) Nausea Plan: Ondansetron HCl 4 MG Oral Tablet Refill sent. (Z13.9) Risk and functional assessment Plan: See nursing note. Follow-up: 2 months Total time today including reviewing chart before the visit, pertinent labs, imaging reports, face to face time, and documentation time was 49 minutes. Aviva Rossi DO * Michelle Tim LPN - 02/03/2024 1:52 PM EST Fall Risk Plan of Care Documentation: - Current medications reconciled Patient encouraged to: - Exercise - Provide education materials for Core strengthening - Utilize assistive/adaptive devices - Provide education materials - Avoid multifocal lenses when walking - Avoid hazards in home - Provide education materials - Maintain a regular toileting schedule Michelle Tim LPN 02/03/2024 Urinary Incontinence Plan of Care Documentation: (This [...] (TEDs)if you have edema Michelle Tim LPN 02/03/2024 documented in this encounter Nursing Notes * Michelle Tim LPN - 02/03/2024 1:53 PM EST Patient here for hospital discharge follow up visit. Reports pain mid chest that she feels is bronchial/tracheal. Also having coccyx pain. Has had productive cough. Still concerned about monitoring for bladder infection. Found a lump in her right breast. documented in this encounter Plan of Treatment Upcoming Encounters Date Type Department Care Team (Late st Contact Info) Description 02/17/2024 10:00 AM EST Home Visit [facility] [address] [place] [address] Jose Newell, CARLEE [address] [place] [id number] 03/03/2024 3:00 PM EST Office Visit Cardiology, Health system [address] [place] [address] Sahw Hickey, DO [address] [facility] [place] [id number] 03/09/2024 3:00 PM EST Office Visit Family Practice [address] [place] [address] [address] [facility], [place] [id number] Aviva Rossi DO [address] [facility], [place] [address] Scheduled Orders Name Type Priority Associated Diagnoses Orde r Schedule HEMOGLOBIN A1C Lab Routine 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, unspecified whether intermediate insulin use (HCC) Expected: 02/03/2024 (Approximate), Expires: 03/04/2025 URINALYSIS, POINT OF CARE (ENTER/EDIT) Point of Care Testing Routine Recurrent UTI Ordered: 02/03/2024 MAMMOGRAM SCREENING SUZETTE BILATERAL Medical Imaging Routine Mass of lower outer quadrant of right breast Expected: 02/03/2024, Expires: 03/04/2025 US BREAST LIMITED RIGHT Medical Imaging Routine Mass of lower outer quadrant of right breast Expected: 02/03/2024, Expires: 03/04/2025 Scheduled Procedures Name Priority Associated Diagnoses Date/Ti me COLONOSCOPY FLEXIBLE PROXIMA L DIAGNOSTIC Recall History of colonic polyps Scheduled Referrals Name Type Priority Associated Diagnoses Orde r Schedule [facility] Referral Within 10 days (routine) 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, unspecified whether intermediate insulin use (HCC) Acquired hypothyroidism Major depressive disorder, single episode, in partial remission (HCC) Myasthenia gravis (HCC) Atrial fibrillation with RVR (HCC) Ordered: 02/03/2024 Health Maintenance Due Date Last Done Comments [...] 05/08/2023, Additional history exists GFR 02/02/2025 02/03/2024, 062 07/2023, 08/25/2023, Additional history exists TSH 02/02/2025 02/03/2024, [...] Procedure Name Priority Date/Time Associated Diagnosis Comments DIFFERENTIAL, AUTOMATED Routine 02/03/2024 3:25 PM EST Microalbuminuric diabetic nephropathy (HCC) Hematoma of right iliopsoas muscle, sequela TSH WITH FREE T4 IF INDICATED Routine 02/03/2024 3:25 PM EST Acquired hypothyroidism HEMOGLOBIN A1C Routine 02/03/2024 3:25 PM EST 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, unspecified whether salvage determiner insulin use (HCC) COMPREHENSIVE METABOLIC PANEL Routine 02/03/2024 3:25 PM EST Microalbuminuric diabetic nephropathy (HCC) CBC Routine 02/03/2024 3:25 PM EST Microalbuminuric diabetic nephropathy (HCC) Hematoma of right iliopsoas muscle, sequela CBC Routine 02/03/2024 3:25 PM EST Microalbuminuric diabetic nephropathy (HCC) Hematoma of right iliopsoas muscle, sequela T4, FREE Routine 02/03/2024 3:25 PM EST Acquired hypothyroidism documented in this encounter Results * T4, FREE (02/03/2024 3:25 PM EST) T4, Free 1.4 0.9 - 1.7 ng/dL 02/04/2024 6:44 AM EST [facility] Blood Venous blood specimen / Unknown Venipuncture / Unknown 02/03/2024 3:25 PM EST 02/03/2024 3:25 PM EST us Aviva Rossi DO LAB BLOOD ORDERABLES Final R esult [facility] [address] [place] [address] * (ABNORMAL) DIFFERENTIAL, AUTOMATED (02/03/2024 3:25 PM EST) WBC 9.79 4.00 - 10.80 K/uL 02/03/2024 11:40 PM EST [facility] Neutrophils % 72.4 40.0 - 75.0 % 02/03/2024 11:40 PM EST [facility] Lymphocytes % 13.2(L) 18.0 - 42.0 % 02/03/2024 11:40 PM EST [facility] Monocytes % 9.8 1.0 - 11.0 % 02/03/2024 11:40 PM EST [facility] Eosinophils % 3.3 0.0 - 6.0 % 02/03/2024 11:40 PM EST [facility] Basophils % 0.5 0.0 - 2.0 % 02/03/2024 11:40 PM EST [facility] Immature Granulocytes % 0.8 0.0 - 2.0 % 02/03/2024 11:40 PM EST [facility] Absolute Neutrophils 7.09 1.80 - 7.70 K/uL 02/03/2024 11:40 PM EST [facility] Absolute Lymphocytes 1.29 1.00 - 4.80 K/ul 02/03/2024 11:40 PM EST [facility] Absolute Monocytes 0.96 0.00 - 1.10 K/uL 02/03/2024 11:40 PM EST [facility] Absolute Eosinophils 0.32 0.00 - 0.70 K/uL 02/03/2024 11:40 PM EST [facility] Absolute Basophils 0.05 0.00 - 0.20 K/uL 02/03/2024 11:40 PM EST [facility] Absolute Immature Granulocytes 0.08 0.00 - 0.20 K/uL 02/03/2024 11:40 PM EST [facility] Blood Venous blood specimen / Unknown Venipuncture / Unknown 02/03/2024 3:25 PM EST 02/03/2024 3:25 PM EST Aviva Rossi DO LAB BLOOD ORDERABLES Final R esult [facility] [address] [place] [address] * (ABNORMAL) CBC (02/03/2024 3:25 PM EST) WBC 9.79 4.00 - 10.80 K/uL 02/03/2024 11:40 PM EST [facility] RBC 4.05 3.85 - 5.15 M/uL 02/03/2024 11:40 PM EST [facility] HGB 11.3(L) 12.0 - 15.3 g/dL 02/03/2024 11:40 PM EST [facility] HCT 37.2 36.0 - 45.2 % 02/03/2024 11:40 PM EST [facility] MCV 91.9 81.5 - 97.5 fL 02/03/2024 11:40 PM EST [facility] MCH 27.9 27.0 - 34.0 pg 02/03/2024 11:40 PM EST LABORATORY [facility] MCHC 30.4 32.0 - 36.0 g/dL 02/03/2024 11:40 PM EST LABORATORY [facility] RDW 12.9 11.5 - 15.5 % 02/03/2024 11:40 PM EST LABORATORY [facility] PLT 332 140 - 400 K/uL 02/03/2024 11:40 PM EST LABORATORY [facility] MPV 10.9 6.6 - 11.1 fL 02/03/2024 11:40 PM EST LABORATORY [facility] nRBCs 0 <=0 /100 WBCs 02/03/2024 11:40 PM EST LABORATORY [facility] Blood Venous blood specimen / Unknown Venipuncture / Unknown 02/03/2024 3:25 PM EST 02/03/2024 3:25 PM EST [facility]OD ORDERABLES Final R esult LAB[facility] [address] [place] [address] * (ABNORMAL) TSH WITH FREE T4 IF INDICATED (02/03/2024 3:25 PM EST) Pathologist [facility] TSH 4.48(H) 0.27 - 4.20 uIU/mL 02/04/2024 4:59 AM EST LAB[facility]ATORY [facility] Blood Venous blood specimen / Unknown Venipuncture / Unknown 02/03/2024 3:25 PM EST 02/03/2024 3:25 PM EST [employer] DO LAB BLOOD ORDERABLES Final R esult LABORATORY [facility] [address] [place] [address] * (ABNORMAL) HEMOGLOBIN A1C (02/03/2024 3:25 PM EST) Hemoglobin A1C 7.2(H) 4.0 - 5.6 % 02/04/2024 5:06 AM EST [facility] Comment:The use of HbA1c to monitor glycemic status is based on normal hemoglobin and HbA composition. This test should not be used in patients with abnormal hemoglobin that affects the half life of the red blood cell or the in vivo glycation rates. Estimated Average Glucose 160(H) <126 mg/dL 02/04/2024 5:06 AM EST LABORATORY [facility] Blood Venous blood specimen / Unknown Venipuncture / Unknown 02/03/2024 3:25 PM EST 02/03/2024 3:25 PM EST us Aviva Rossi DO LAB BLOOD ORDERABLES Final R esult LABORATORY [facility] [address] [place] [address] * (ABNORMAL) COMPREHENSIVE METABOLIC PANEL (02/03/2024 3:25 PM EST) BUN 29(H) 6 - 20 mg/dL 02/04/2024 4:28 AM EST LABORATORY [facility] CREATININE 1.4(H) 0.5 - 1.0 mg/dL 02/04/2024 4:28 AM EST LABORATORY [facility] EGFR 40(L) >=60 mL/min 02/04/2024 4:28 AM EST LABORATORY [facility] Comment:eGFR is calculated b ased on the CKD-EPI 2020 equation. SODIUM 139 135 - 146 mmol/L 02/04/2024 4:28 AM EST LABORATORY [facility] POTASSIUM 4.9 3.5 - 5.1 mmol/L 02/04/2024 4:28 AM EST LABORATORY C CHLORIDE 99 98 - 107 mmol/L 02/04/2024 4:28 AM EST [facility] CO2 28 22 - 32 mmol/L 02/04/2024 4:28 AM EST LABORATORY [facility] ANION GAP 12 7 - 15 mmol/L 02/04/2024 4:28 AM EST LABORATORY [facility] GLUCOSE 136(H) 70 - 120 mg/dL 02/04/2024 4:28 AM EST LABORATORY GM Albumin 3.7(L) 3.8 - 5.0 g/dL 02/04/2024 4:28 AM EST LABORATORY [facility] AST 23 10 - 35 U/L 02/04/2024 4:28 AM EST [facility] Alkaline Phosphatase 73 35 - 130 U/L 02/04/2024 4:28 AM EST [facility] Bilirubin, Total 0.6 <=1.2 mg/dL 02/04/2024 4:28 AM EST [facility] CALCIUM 9.2 8.4 - 10.2 mg/dL 02/04/2024 4:28 AM EST [facility] Protein 6.6 6.0 - 8.3 g/dL 02/04/2024 4:28 AM EST [facility] ALT 28 10 - 35 U/L 02/04/2024 4:28 AM EST [facility] Blood Venous blood specimen / Unknown Venipuncture / Unknown 02/03/2024 3:25 PM EST 02/03/2024 3:25 PM EST Aviva Rossi DO LAB BLOOD ORDERABLES Final R esult LAB[facility]ATORY [facility] [address] [id number] documented in this encounter Visit Diagnoses Diagnosis Atrial fibrillation with RVR (HCC)- Primary Atrial fibrillation Hematoma of right iliopsoas muscle, sequela Mass of lower outer quadrant of right breast Acute cough History of asthma Personal history of other diseases of respiratory system 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, unspecified whether salvage determiner insulin use (HCC) Microalbuminuric diabetic nephropathy (HCC) Type II or unspecified type diabetes mellitus with renal manifestations, not stated as uncontrolled Acquired hypothyroidism Unspecified hypothyroidism Major depressive disorder, single episode, in partial remission (HCC) Major depressive disorder, single episode, in partial or unspecified remission Myasthenia gravis (HCC) Myasthenia gravis without exacerbation Dyslipidemia Other and unspecified hyperlipidemia Recurrent UTI Urinary tract infection, site not specified Nausea Nausea alone Risk and functional assessment Screening for unspecified condition documented in this encounter Advance Directives * [...] and were consensually agreed upon. Care Teams Diamond Die Driller Relationship Specialty Start Date End Date Aviva Rossi DO [address] [place] [address] PCP - General Family Medicine 09/09/23 documented as of this encounter
--- OUTSIDE RECORDS SUMMARY | 2024-03-26 01:02 | External Medical Summary | Summary of Care ---
Author Name Unknown Organization [facility] Address [address] [place] [address] Phone [phone] Care Team Providers Care Local Company Hazmat Driver Name Role Phone Aviva Rossi DO Primary Care Provider [phone] Reason for Visit * Reason Onset Date Comments Appointment 02/03/2024 Cardiology Encounter Details Date Type Department Care Team (Late st Contact Info) Description 02/03/2024 Telephone Family Practice [address] [facility] [place] [address] [place] [address] Aviva Rossi DO [address] [place], [place] [phone] Appointment (Cardiology) Allergies Active Allergy Reactions Criticality [...] PM EDT 01/23/20 24 025 Active Pen [place] 316" 31G X 5 MM Use daily [...] start lantus/novolog-refer MTM----, Psychiatrist. Sees Dr Sanders-Lawrence @[facility] [phone] Morbid obesity 12/26/2016 Overview: Per Obesity protocol #1 PMB (postmenopausal bleeding) 11/12/2013 Chronic cough 08/22/2023 Productive cough 08/22/2023 Overview (12/18/2012): chronic Left knee injury 06/09/2023 Elevated WBC count 4 documented as of this encounter (statuses as of 02/04/2024) Immunizations Name Administration Dates Next Due COVID-19 mRNA, LNP-s, No Pre serve, 2-Dose Series ([employer]) 09/21/2020,05/22/2020 COVID-19, MRNA-LNP, PF, 30 M CG/0.3 mL, 12 YRS AND ABOVE, IM ([employer]) 02/03/2024,08/25/2023,01/07/2023,09/06 Covid-19, Mrna, Lnp-s, Pf, B ivalent, 30 Mcg, IM, 12 yrs and above ([employer]) 05/09/2022 Pneumococcal Conjugate Vacci ne, 20-valent ([id number]) 05/09/2022 Pneumococcal Polysaccharide PPV23 (Pneumovax) 07/09/2013 RSV [...] of appt day and time with Dr Hickey * Telephone Encounter - Agustin Pastor OSA - 02/03/2024 3:44 PM EST Patient has been scheduled on: RETURN CARDIOLOGY at 3:00 PM (30 min)Arrive by 2:45 PM Sunday March 03, 2024 Appointment Provider:Shaw Hickey DO in CARDIOLOGY [facility] * Telephone Encounter - Mary Ny OSA - 02/03/2024 3:19 PM EST Reschedule with Dr. Ashish Hickey ASAP Per check out note Please call with date and time documented in this encounter Plan of Treatment Upcoming Encounters Date Type Department Care Team (Late st Contact Info) Description 02/17/2024 10:00 AM EST Home Visit [facility] [place], [address] [place] [address] Jose Newell, RN [address] [place] [address] 03/03/2024 3:00 PM EST Office Visit Cardiology, [facility] [address] [place] [address] Shaw Hickey, DO [address] [place] [address] 03/09/2024 3:00 PM EST Office Visit Family Practice [address] [place] [address] 293 [place] [phone] Aviva Rossi, DO 293 [place] [address] Scheduled Procedures Name Priority Associated Diagnoses Date/Ti [...] and were consensually agreed upon. Care Teams Local Company Hazmat Driver Relationship Specialty Start Date End Date Aviva Rossi DO [address] [place] [address] PCP - General Family Medicine 09/09/23 documented as of this encounter
--- OUTSIDE RECORDS SUMMARY | 2024-03-26 01:03 | External Medical Summary | Summary of Care ---
Author Name Unknown Organization [facility] Address [address] [place] [address] Phone [phone] Care Team Providers Care Safety Security Officer Name Role Phone BrianAviva rust Christian GRIGGS Primary Care Provider Reason for Visit * Reason Onset Date Comments Appointment 02/03/2024 Encounter Details Date Type Department Care Team (Late st Contact Info) Description 02/03/2024 Telephone [facility] [place] [address] [place], [place] [phone] Tommie Sanchez, CATHERINE [address] [place] [address] Appointment (///) Allergies Active Allergy Reactions Criticality Noted Date Comments Codeine 11/20/2012 Nausea and vomiting Lisinopril 06/12/2015 ?cough Penicillin G 11/20/2012 Hives Hydrocodone-Acetaminophen 11/20/2012 Nausea and vomiting documented as of this encounter (statuses as of 02/03/2024) Medications Cyanocobalamin 1000 MCG Oral Tablet (Cyanocobalamin) [...] PM EDT 01/23/20 24 025 Active Pen [place] 3" 31G X 5 MM Use daily [...] as of this encounter (statuses as of 02/03/2024) Active Problems Problem Noted Date Diagnosed Date [...] as of this encounter (statuses as of 02/03/2024) Resolved Problems Problem Noted Date Diagnosed Date [...] Dr Sanders-Lawrence @[facility] [phone] Morbid obesity 12/26/2016 Overview: Per Obesity protocol #1 PMB (postmenopausal bleeding) 11/12/2013 Chronic cough 08/22/2023 Productive cough 08/22/2023 Overview (12/18/2012): chronic Left knee injury 06/09/2023 Elevated WBC count 4 documented as of this encounter (statuses as of 02/03/2024) Immunizations Name Administration Dates Next Due COVID-19 mRNA, LNP-s, No Pre serve, 2-Dose Series ([employer]) 09/21/2020,05/22/2020 COVID-19, MRNA-LNP, PF, 30 M CG/0.3 mL, 12 YRS AND ABOVE, IM ([facility]) 02/03/2024,08/25/2023,01/07/2023,09/06 Covid-19, Mrna, Lnp-s, Pf, B ivalent, 30 Mcg, IM, 12 yrs and above ([employer]) 05/09/2022 Pneumococcal Conjugate Vacci ne, 20-valent ([id number]) 05/09/2022 Pneumococcal Polysaccharide PPV23 (Pneumovax) 07/09/2013 RSV [...] Telephone Encounter - Tommie Sanchez OSA - 02/03/2024 4:05 PM EST Lmom for pt to confirm RNCM ret hv on 02/16 at 10am, awaiting confirmation call back documented in this encounter Plan of Treatment Upcoming Encounters Date Type Department Care Team (Late st Contact Info) Description 02/17/2024 10:00 AM EST Home Visit [facility] [address] [place] [address] Jose Newell, RN [address] [place] [address] 03/03/2024 3:00 PM EST Office Visit Cardiology, [facility] [address] [place] [address] Shaw Hickey O, DO [address] [place] [address] 03/09/2024 3:00 PM EST Office Visit Family Practice [address], [place] 293 [place] [address] Aviva Rossi DO 293 [place] [address] Scheduled Procedures Name Priority Associated Diagnoses Date/Ti me COLONOSCOPY FLEXIBLE PROXIMA L DIAGNOSTIC Recall History of colonic polyps Health Maintenance Due Date Last Done Comments Cologuard 1998 Fecal Occult Blood Test 1998 Sigmoidoscopy 1998 Mammogram 06/05/2023 06/04/2022, 09/17/2013 Adult Wellness Visit 11/06/2023 11/05/2022 HbA1c 04/14/2024 10/13/2023, 05/23, 01/07/2023, Additional history exists Albumin/Creatinine Ratio 06/16/2024 024, [...] and were consensually agreed upon. Care Teams Safety Security Officer Relationship Specialty Start Date End Date Aviva Rossi DO [address] [place], [place] [address] [address] PCP - General Family Medicine 09/09/23 documented as of this encounter
--- OUTSIDE RECORDS SUMMARY | 2024-03-26 01:03 | External Medical Summary | Summary of Care ---
Author Name Unknown Organization [facility] Address [address] [place] [address] Phone [phone] Care Team Providers Care Manager Administrative Name Role Phone Aviva Rossi DO Primary Care Provider Reason for Visit * Reason Onset Date Comments [facility]: Maintenance 02/03/2024 Encounter Details Date Type Department Care Team (Late st Contact Info) Description 02/03/2024 Telephone [facility] [place] [address] [place] [address] Claudia Tripathi, GREASE WORKER [address] [place] [address] [facility]: Maintenance Allergies Active Allergy [...] PM EDT 01/23/20 24 025 Active Pen [place] 3/16" 31G X 5 MM Use daily [...] start lantus/novolog-refer MTM----, Psychiatrist. Sees Dr Sanders-Lawrence @[facility] [phone] Morbid obesity 12/26/2016 Overview: Per Obesity protocol #1 PMB (postmenopausal bleeding) 11/12/2013 Chronic cough 08/22/2023 Productive cough 08/22/2023 Overview (12/18/2012): chronic Left knee injury 06/09/2023 Elevated WBC count 4 documented as of this encounter (statuses as of 02/04/2024) Immunizations Name Administration Dates Next Due COVID-19 mRNA, LNP-s, No Pre serve, 2-Dose Series ([employer]) 09/21/2020,05/22/2020 COVID-19, MRNA-LNP, PF, 30 M CG/0.3 mL, 12 YRS AND ABOVE, IM ([employer]-Comirnaty) 02/03/2024,08/25/2023,01/07/2023,09/06 Covid-19, Mrna, Lnp-s, Pf, B ivalent, 30 Mcg, IM, 12 yrs and above ([employer]) 05/09/2022 Pneumococcal Conjugate Vacci ne, 20-valent ([id number]) 05/09/2022 Pneumococcal Polysaccharide PPV23 (Pneumovax) 07/09/2013 RSV [...] No 08/20/2023 Does the household have a [facility] source of income? (Household - for ages [...] Telephone Encounter - Claudia Tripathi LPN - 02/03/2024 3:55 PM EST Patient is established with [facility] Checked CSI and confirmed [email or web address] Gold insurance Sent to [facility]'s to schedule return visits documented in this encounter Plan of Treatment Upcoming Encounters Date Type Department Care Team (Late st Contact Info) Description 02/17/2024 10:00 AM EST Home Visit [facility] [address] [place] [address] Jose Newell, CARLEE [address] [place] [address] 03/03/2024 3:00 PM EST Office Visit Cardiology, [facility] [address] [place] [address] Shaw Hickey O, DO [address] [place] [address] 03/09/2024 3:00 PM EST Office Visit Family Practice [address], [place] 293 [place] [phone] Aviva Rossi DO 293 [facility] [place] [address] Scheduled Procedures Name Priority Associated Diagnoses Date/Ti [...] were consensually agreed upon. Care Teams Manager Administrative Relationship Specialty Start Date End Date Aviva Rossi DO [address] [place] [address] PCP - General Family Medicine 09/09/23 documented as of this encounter
--- OUTSIDE RECORDS SUMMARY | 2024-03-26 01:03 | External Medical Summary ---
Author Name Unknown Address Unknown Organization [id number]:LABORATORY [facility] - [address] [facility] [address] Laboratory Report Ordering Provider Test Date Status BREANA HSU 02/03/2024 15:25:43 Final Observation Date Value Abnormality Reference (Units ) Status WBC, Total 02/03/2024 15:25:43 9.79 4.00-10.80 (K/uL) Final RBC 02/03/2024 15:25:43 4.05 3.85-5.15 (M/uL) Final Hemoglobin 02/03/2024 15:25:43 11.3 Below low normal 12.0-15.3 (g/dL) Final HCT 02/03/2024 15:25:43 37.2 36.0-45.2 (%) Final MCV 02/03/2024 15:25:43 91.9 81.5-97.5 (fL) Final MCH 02/03/2024 15:25:43 27.9 27.0-34.0 (pg) Final MCHC 02/03/2024 15:25:43 30.4 32.0-36.0 (g/dL) Final RDW 02/03/2024 15:25:43 12.9 11.5-15.5 (%) Final Platelets 02/03/2024 15:25:43 332 140-400 (K/uL) Final MPV 02/03/2024 15:25:43 10.9 6.6-11.1 (fL) Final Nucleated erythrocytes/100 leukocytes [Ratio] in Blood by Automated count 02/03/2024 15:25:43 0 <=0 (/100 WBCs) Final Performing Location LABORATORY [facility] - [address] [facility] [address]
--- OUTSIDE RECORDS SUMMARY | 2024-03-26 01:03 | External Medical Summary ---
Author Name Unknown Address Unknown Organization [id number]:LABORATORY [facility] - [address] [facility] [address] Laboratory Report Ordering Provider Test Date Status BREANA HSU 02/03/2024 15:25:43 Final Observation Date Value Abnormality Reference (Units ) Status SYNC LEUKOCYTES IN BLOOD BY AUTOMATED COUNT 02/03/2024 15:25:43 9.79 4.00-10.80 (K/uL) Final Segs 02/03/2024 15:25:43 72.4 40.0-75.0 (%) Final Lymphs % 02/03/2024 15:25:43 13.2 Below low normal 18.0-42.0 (%) Final Monos 02/03/2024 15:25:43 9.8 1.0-11.0 (%) Final Eosinophils 02/03/2024 15:25:43 3.3 0.0-6.0 (%) Final Basos 02/03/2024 15:25:43 0.5 0.0-2.0 (%) Final Immature Granulocyte, Percent 02/03/2024 15:25:43 0.8 0.0-2.0 (%) Final Absolute Segs 02/03/2024 15:25:43 7.09 1.80-7.70 (K/uL) Final Lymphs, absolute 02/03/2024 15:25:43 1.29 1.00-4.80 (K/ul) Final Monos, Abs 02/03/2024 15:25:43 0.96 0.00-1.10 (K/uL) Final Eos, Abs 02/03/2024 15:25:43 0.32 0.00-0.70 (K/uL) Final Basos, Abs 02/03/2024 15:25:43 0.05 0.00-0.20 (K/uL) Final Immature Granulocytes, Number 02/03/2024 15:25:43 0.08 0.00-0.20 (K/uL) Final Performing Location LABORATORY [facility] - [address] [facility] [address]
--- OUTSIDE RECORDS SUMMARY | 2024-03-26 01:03 | External Medical Summary ---
Author Name Unknown Address Unknown Organization [id number]:LABORATORY [facility] - [address] [facility] [address] Laboratory Report Ordering Provider Test Date Status BREANA HSU 02/03/2024 15:25:43 Final Observation Date Value Abnormality Reference (Units ) Status BUN 02/03/2024 15:25:43 29 Above high normal 6-20 (mg/dL) Final Creatinine 02/03/2024 15:25:43 1.4 Above high normal 0.5-1.0 (mg/dL) Final Glomerular filtration rate/1.73 sq M.predicted [Volume Rate/Area] in Serum, Plasma or Blood by Creatinine-based formula (CKD-EPI) 02/03/2024 15:25:43 40 Below low normal >=60 (mL/min) Final eGFR is calculated based on the CKD-EPI 2020 equation. Sodium 02/03/2024 15:25:43 139 135-146 (m mol/L) Final Potassium 02/03/2024 15:25:43 4.9 3.5-5.1 (m mol/L) Final Cl 02/03/2024 15:25:43 99 98-107 (mm ol/L) Final CO2 02/03/2024 15:25:43 28 22-32 (mmo l/L) Final Anion gap 02/03/2024 15:25:43 12 7-15 (mmol /L) Final Glucose 02/03/2024 15:25:43 136 Above high normal 70 -120 (mg/dL) Final Albumin 02/03/2024 15:25:43 3.7 Below low normal 3.8 -5.0 (g/dL) Final AST (Aspartate aminotransferase) 02/03/2024 15:25:43 23 10-35 (U/L) Fin al Alk Phos 02/03/2024 15:25:43 73 35-130 (U/ L) Final Bilirubin, Total 02/03/2024 15:25:43 0.6 <=1 .2 (mg/dL) Final Calcium 02/03/2024 15:25:43 9.2 8.4-10.2 ( mg/dL) Final Protein 02/03/2024 15:25:43 6.6 6.0-8.3 (g /dL) Final ALT (Alanine aminotransferase) 02/03/2024 15:25:43 28 10-35 (U/L) [place] frye Performing Location LABORATORY [facility] - [address] [facility] [address]
--- OUTSIDE RECORDS SUMMARY | 2024-03-26 01:03 | External Medical Summary | Summary of Care ---
Author Name Unknown Organization [facility] Address [address] [place] [address] Phone [phone] Care Team Providers Care Computer Systems Security Administrator Name Role Phone Aviva Rossi DO Primary Care Provider Reason for Visit * Reason Onset Date Comments Medication Refill 02/03/2024 Encounter Details Date Type Department Care Team (Late st Contact Info) Description 02/03/2024 Refill Cardiology, [facility] [address] [place] [address] Shaw Hickey DO [address] [place] [address] New onset atrial fibrillation (HCC)* Allergies Active Allergy Reactions Criticality Noted Date [...] PM EDT 01/23/20 24 025 Active Pen [place] 316" 31G X 5 MM Use daily [...] morning. 100 Tablet 3 02/03/20 24 Active Systane Complete PF 0.6 % Ophthalmic Solution (Propylene Glycol (PF)) Instill 1 Drop into eye as needed for Dry eyes. 09/04/19 Discontin ued(Medic ation List Clean Up) Amiodarone HCl 200 MG Oral Tablet (Cordarone) Take 1 Tablet by mouth in the morning. Discontin ued(Refil l) Bumetanide 2 MG Oral Tablet Take 1 Tablet by mouth in the morning. 11/28/19 24 Discontin ued(Refil l) Benzonatate 100 MG Oral Capsule (Tessalon Perles) [...] Dr Sanders-Lawrence @[facility] [phone] Morbid obesity 12/26/2016 Overview: Per Obesity protocol #1 PMB (postmenopausal bleeding) 11/12/2013 Chronic cough 08/22/2023 Productive cough 08/22/2023 Overview (12/18/2012): chronic Left knee injury 06/09/2023 Elevated WBC count 4 documented as of this encounter (statuses as of 02/03/2024) Immunizations Name Administration Dates Next Due COVID-19 mRNA, LNP-s, No Pre serve, 2-Dose Series ([employer]) 09/21/2020,05/22/2020 COVID-19, MRNA-LNP, PF, 30 M CG/0.3 mL, 12 YRS AND ABOVE, IM ([employer]-Comirnaty) 02/03/2024,08/25/2023,01/07/2023,09/06 Covid-19, Mrna, Lnp-s, Pf, B ivalent, 30 Mcg, IM, 12 yrs and above ([employer]izer) 05/09/2022 Pneumococcal Conjugate Vacci ne, 20-valent ([id number]) 05/09/2022 Pneumococcal Polysaccharide PPV23 (Pneumovax) 07/09/2013 RSV [...] Notes * Telephone Encounter - Gaby Leahy, [facility] - 02/03/2024 3:[address] Hickey/Juju - patient was seen at [facility] in September by the two of you and started on amiodaronedue to afib. She was then to follow up with you outpatient after her rehab stay at [facility], however lapsed on her insurance for a few months and had to cancel the appointment. Also at [facility], patient reports that her furosemide was switched to bumetanide. In the meantime, she wrote the scripts for herself so she wouldn't lapse on the scripts. Today was the first time Dr. Rossi also saw her since the rehab and hospitalization. We rin labs today so we can check Scr. I pended the scripts for amiodarone and bumetanide to mail order for you if appropriate. Gaby Martinez, Pharm D, BCACP Clinical Pharmacist [address] [place] [address] - Medication Therapy [facility] 02/03/2024, 3:46 PM Ph. [phone] documented in this encounter Plan of Treatment Upcoming Encounters Date Type Department Care Team (Late st Contact Info) Description 02/17/2024 10:00 AM EST Home Visit [facility] [address] [place] [address] Jose Newell, RN [address] [place] [address] 03/03/2024 3:00 PM EST Office Visit Cardiology, [facility] [address] [place] [address] Shaw Hickey, DO 132 [facility] [place] [address] 03/09/2024 3:00 PM EST Office Visit Family Practice [address] [place] [address] [facility] [phone] Aviva Rossi DO [address] [facility] [address] Scheduled Procedures Name Priority Associated Diagnoses Date/Ti [...] Procedure Name Priority Date/Time Associated Diagnosis Comments HEMOGLOBIN A1C Routine 10/13/2023 documented in this encounter Results * (ABNORMAL) HEMOGLOBIN A1C (10/13/2023) HEMOGLOBIN, [id number] LAB 6.6(H) Blood Venous blood specimen / Unknown 10/13/2023 us History Per Patient LAB BLOOD ORDERABLES Final R esult documented in this encounter Visit Diagnoses Diagnosis New onset atrial fibrillation (HCC)- Primary Atrial fibrillation documented in this encounter Advance Directives * [...] and were consensually agreed upon. Care Teams Computer Systems Security Administrator Relationship Specialty Start Date End Date Aviva Rossi DO [address] [place] [address], [place] [address] PCP - General Family Medicine 09/09/23 documented as of this encounter
--- OUTSIDE RECORDS SUMMARY | 2024-03-26 01:03 | External Medical Summary ---
Author Name Unknown Address Unknown Organization K01:LABORATORY [facility] - [address] [facility] [address] Laboratory Report Ordering Provider Test Date Status BREANA HSU 02/03/2024 15:25:43 Final Observation Date Value Abnormality Reference (Units ) Status HbA1C 02/03/2024 15:25:43 7.2 Above high normal 4. 0-5.6 (%) Final The use of HbA1c to monitor glycemic status is based on normal hemoglobin and HbA composition. This test should not be used in patients with abnormal hemoglobin that affects the half life of the red blood cell or the in vivo glycation rates. Glucose, estimated average 02/03/2024 15:25:43 160 Above high normal <126 (mg/dL) [place] frye Performing Location LABORATORY [facility] - [address] [facility] [address]
--- OUTSIDE RECORDS SUMMARY | 2024-03-26 01:03 | External Medical Summary ---
Author Name Unknown Address Unknown Organization K01:LABORATORY [facility] - [address] [place] [address] Laboratory Report Ordering Provider Test Date Status BREANA HSU 02/03/2024 15:25:43 Final Observation Date Value Abnormality Reference (Units ) Status T4, Free 02/03/2024 15:25:43 1.4 0.9-1.7 (n g/dL) Final Performing Location LABORATORY [facility] - [address] [place] [address]
--- OUTSIDE RECORDS SUMMARY | 2024-03-26 01:03 | External Medical Summary ---
Author Name Unknown Address Unknown Organization K01:[facility] [address] [place] [address] Laboratory Report Ordering Provider Test Date Status BREANA HSU 02/03/2024 15:25:43 Final Observation Date Value Abnormality Reference (Units ) Status TSH 02/03/2024 15:25:43 4.48 Above high normal 0. 27-4.20 (uIU/mL) Final Performing Location [facility] [place] [address] [place] [address]
--- OUTSIDE RECORDS SUMMARY | 2024-03-26 01:03 | External Medical Summary | Summary of Care ---
Author Name Unknown Organization [facility] Address [address] [place] [address] Phone [phone] Care Team Providers Care Charging Manipulator Name Role Phone Aviva Rossi DO Primary Care Provider Reason for Visit * Reason Onset Date Comments [facility]: Maintenance 02/03/2024 Encounter Details Date Type Department Care Team (Late st Contact Info) Description 02/03/2024 Telephone [facility], [place] [address] [place] [place] [address] Claudia Tripathi, OB/GYN NURSE [address] [place] [address] [facility]: Maintenance Allergies Active Allergy [...] EDT 01/23/20 24 025 Active Pen [place] 3/16" 31G X 5 MM Use daily [...] lantus/novolog-refer MTM----, Psychiatrist. Sees Dr Sanders-Lawrence @[facility] [phone] Morbid obesity 12/26/2016 Overview: Per Obesity protocol #1 PMB (postmenopausal bleeding) 11/12/2013 Chronic cough 08/22/2023 Productive cough 08/22/2023 Overview (12/18/2012): chronic Left knee injury 06/09/2023 Elevated WBC count 4 documented as of this encounter (statuses as of 02/03/2024) Immunizations Name Administration Dates Next Due COVID-19 mRNA, LNP-s, No Pre serve, 2-Dose Series ([facility]) 09/21/2020,05/22/2020 COVID-19, MRNA-LNP, PF, 30 M CG/0.3 mL, 12 YRS AND ABOVE, IM (PFIZER-Comirnaty) 02/03/2024,08/25/2023,01/07/2023,09/06 Covid-19, Mrna, Lnp-s, Pf, B ivalent, 30 Mcg, IM, 12 yrs and above (Pfizer) 05/09/2022 Pneumococcal Conjugate Vacci ne, 20-valent ([id number]) 05/09/2022 Pneumococcal Polysaccharide PPV23 (Pneumovax) 07/09/2013 RSV [...] No 08/20/2023 Does the household have a [facility] source of income? (Household - for [...] 3:55 PM EST Patient is established with [facility] Checked CSI and confirmed [employer] insurance Sent to [facility]'s to schedule return visits documented in this encounter Plan of Treatment Upcoming Encounters Date Type Department Care Team (Late st Contact Info) Description 02/17/2024 10:00 AM EST Home Visit [facility] [address] [address] Jose Newell, CARLEE [address] [place] [place] [address] 03/03/2024 3:00 PM EST Office Visit Cardiology, [facility] [address] [place] [address] Shaw Hickey O, DO [address] [place] [address] 03/09/2024 3:00 PM EST Office Visit Family Practice [address] [place] [address] [place] [address] Aviva Rossi DO 293 [facility] [place] [address] Scheduled Procedures Name Priority Associated Diagnoses Date/Ti [...] and were consensually agreed upon. Care Teams Charging Manipulator Relationship Specialty Start Date End Date Aviva Rossi DO [address] [place] [address] PCP - General Family Medicine 09/09/23 documented as of this encounter
--- OUTSIDE RECORDS SUMMARY | 2024-03-26 01:03 | External Medical Summary | Summary of Care ---
Author Name Unknown Organization [facility] Address [address] [place] [address] Phone [phone] Care Team Providers Care Ranch Manager Name Role Phone BrianAviva rust Christian GRIGGS Primary Care Provider Encounter Details Date Type Department Care Team (Late st Contact Info) Description 02/04/2024 Population Health External Data Unspecified Department Allergies [...] PM EDT 01/23/20 24 025 Active Pen [place] 06/06" 31G X 5 MM Use daily [...] Dr [place]-Lawrence @[facility] [phone] Morbid obesity 12/26/2016 Overview: Per Obesity protocol #1 PMB (postmenopausal bleeding) 11/12/2013 Chronic cough 08/22/2023 Productive cough 08/22/2023 Overview (12/18/2012): chronic Left knee injury 06/09/2023 Elevated WBC count 4 documented as of this encounter (statuses as of 02/04/2024) Immunizations Name Administration Dates Next Due COVID-19 mRNA, LNP-s, No Pre serve, 2-Dose Series ([employer]) 09/21/2020,05/22/2020 COVID-19, MRNA-LNP, PF, 30 M CG/0.3 mL, 12 YRS AND ABOVE, IM ([facility]) 02/03/2024,08/25/2023,01/07/2023,09/06 Covid-19, Mrna, Lnp-s, Pf, B ivalent, 30 Mcg, IM, 12 yrs and above ([employer]) 05/09/2022 Pneumococcal Conjugate Vacci ne, 20-valent ([id number]) 05/09/2022 Pneumococcal Polysaccharide PPV23 (Pneumovax) 07/09/2013 RSV [...] 10:00 AM EST Home Visit [facility] [address] [place] [address] Jose Newell, RN 132 [facility] [place] [address] 03/03/2024 3:00 PM EST Office Visit Cardiology, [facility] 132 [facility] [place] [address] Shaw Hickey, DO 132 [facility] [place] [address] 03/09/2024 3:00 PM EST Office Visit Family Practice [address] [place] [address] 293 [facility] [place] [address] Aviva Rossi, DO 293 [facility] [place] [address] Scheduled Procedures Name Priority Associated Diagnoses Date/Ti [...] 11/08/2015, Additional history exists HbA1c 08/02/2024 02/03/2024, 0704/2023, 06/17/2023, Additional history exists Depression Monitoring 08/19/2024 [...] and were consensually agreed upon. Care Teams Ranch Manager Relationship Specialty Start Date End Date Aviva Rossi DO [address] [place] [address] PCP - General Family Medicine 09/09/23 documented as of this encounter
--- OUTSIDE RECORDS SUMMARY | 2024-03-26 01:04 | External Medical Summary | Summary of Care ---
Author Name Unknown Organization [facility] Address [address] [place] [address] Phone [phone] Care Team Providers Care Marble Cutter Name Role Phone BrianAviva rust Christian GRIGGS Primary Care Provider Encounter Details Date Type Department Care Team (Late st Contact Info) Description 01/29/2024 Population Health External Data Unspecified Department Allergies Active Allergy Reactions Criticality Noted Date Comments Codeine 11/20/2012 Nausea and vomiting Lisinopril 06/12/2015 ?cough Penicillin G 11/20/2012 Hives Hydrocodone-Acetaminophen 11/20/2012 Nausea and vomiting documented as of this encounter (statuses as of 01/29/2024) Medications Medication Sig Dispensed Refills Start Date End Date Status Cyanocobalamin 1000 MCG Oral Tablet (Cyanocobalamin) Take 1 Tablet by mouth daily. 03/27/2021 Active Vision Formula Eye Health Oral Capsule Take 1 Capsule by mouth daily. 05/09/2022 Active Systane Complete PF 0.6 % Ophthalmic Solution (Propylene Glycol (PF)) Instill 1 Drop into eye as needed for Dry eyes. 09/03/2022 Active NovoLOG FlexPen 100 UNIT/ML Subcutaneous Solution Pen-injector (insulin aspart) INJECT WITH WITH EACH MEAL PER CARB RATIO 1:7 AND CORRECTION FACTOR 1:20>120 MAX DAILY DOSE 35 UNITS 30 mL 3 10/03/2022 Active Xultophy 100-3.6 UNIT-MG/ML Subcutaneous Solution Pen-injector (Insulin Degludec-Liraglutid e) Inject up to 50 units under the skin daily as directed per titration schedule 45 mL 3 11/27/2022 Active buPROPion HCl ER (SR) 150 MG [...] the morning. 100 Tablet 3 09/16/2023 Active Additional Information Patient not taking.Reported on 11/20/2023 traMADol HCl 50 MG Oral Tablet (Ultram)Indications [...] s:Hospital discharge follow-up,Atrial fibrillation with RVR (HCC) TAKE ONE TABLET BY MOUTH IN THE MORNING AND ONE TABLET BEFORE BEDTIME 200 Tablet 3 10/01/2023 Active Additional Information Patient not taking.Reported on 01/21/2024 Ondansetron HCl 4 MG Oral TabletIndications:N ausea Take 1 Tablet by mouth every 6 hours as needed for Nausea. 30 Tablet 10/08/2023 Active Amiodarone HCl 200 MG Oral Tablet (Cordarone) Take 1 Tablet by mouth 2 times a day with morning and evening meals. Take two times per day for one month, and then decrease to once per day- per [facility] discharge instructions Active Bumetanide 2 MG Oral Tablet Take 1 Tablet by mouth in the morning. In the morning.. 11/28/2023 Active buPROPion HCl ER (Smoking Det) 150 MG Oral Tablet Extended Release 12 Hour TAKE 1 TABLET BY MOUTH EVERY DAY WITH 100MG FOR A TOTAL DAILY DOSE OF 250MG IN THE MORNING 10/27/2023 Active Bacid Oral CapsuleIndications: Urinary tract infection without hematuria, site unspecified,Need for prophylactic measure Take 1 Capsule by mouth in the morning and 1 Capsule at noon and 1 Capsule in the evening. Take before meals. 30 Capsule 01/21/2024 Active Atorvastatin Calcium 20 MG Oral Tablet (Lipitor) TAKE ONE TABLET BY MOUTH DAILY 100 Tablet 1 01/23/2024 Active Pen [place] 06/06" 31G X 5 MM Use daily to inject insulin 4 times daily 400 Each 1 01/23/2024 Active FLUoxetine HCl 20 MG Oral Capsule (PROzac)Indications :Major depressive disorder, single episode, in partial remission (HCC) Take 1 Capsule by mouth in the morning. 100 Capsule 1 01/23/2024 Active FLUoxetine HCl 40 MG Oral Capsule (PROzac)Indications :Major depressive disorder, single episode, in partial remission (HCC) Take 1 Capsule by mouth in the morning. 100 Capsule 1 01/23/2024 Active ProAir HFA 108 (90 Base) MCG/ACT Inhalation Aerosol SolutionIndications :Shortness of breath,History of asthma Inhale 2 Puffs by mouth 4 times a day as needed for Dyspnea. 54 g 1 01/23/2024 Active documented as of this encounter (statuses as of 01/29/2024) Active Problems Problem Noted Date Diagnosed Date [...] as of this encounter (statuses as of 01/29/2024) Resolved Problems Problem Noted Date Diagnosed Date Resolved Date Ocular migraine 05/12/2022 05/12/2022 Body mass index (BMI) of 50. 0 to 59.9 in adult 12/23/2016 07/03/2023 Overview: Per Obesity protocol #1 ADVANCE DIRECTIVE INFORMATION 11/12/2013 01/26/2024 Overview: No, Advance Directive brochure given to [...] start lantus/novolog-refer MTM----, Psychiatrist. Sees Dr Witt @[facility] [phone] Morbid obesity 12/26/2016 Overview: Per Obesity protocol #1 PMB (postmenopausal bleeding) 11/12/2013 Chronic cough 08/22/2023 Productive cough 08/22/2023 Overview: chronic Left knee injury 06/09/2023 Elevated WBC count documented as of this encounter (statuses as of 01/29/2024) Immunizations Name Administration Dates Next Due COVID-19 mRNA, LNP-s, No Pre serve, 2-Dose Series ([employer]) 09/21/2020,05/22/2020 COVID-19, MRNA-LNP, PF, 30 M CG/0.3 mL, 12 YRS AND ABOVE, IM ([employer]itronics-Comirnaty) 08/25/2023,01/07/2023 Covid-19, Mrna, Lnp-s, Pf, B ivalent, 30 Mcg, IM, 12 yrs and above (Pfizer) 05/09/2022 Pneumococcal Conjugate Vaccine, 20-valent (Prevn ar20) 05/09/2022 Pneumococcal Polysaccharide PPV23 (Pneumovax) RSV Vac., Bivalent, Perfusion F, Pf,0.5 Ml (Abry svo) 03/11/2023 Seasonal Influenza Vac., MDV, IM, 0.5 mL (Fluzon e) 02/02/2014,12/17/2012 Seasonal Influenza, Quadrivalent Hd (Fluzone Hd) 01/07/2023,05/09/2022 Seasonal Influenza, Quadrivalent, No Preserve, I M 03/23/2018,01/18/2015 TDAP (age 10 and older)(Boostrix) 01/07/2023, [...] st Contact Info) Description 02/03/2024 1:10 PM EST Pharmacy Family Practice [address] [facility] 293 [place] [phone] College, Pharmacist [address] [facility] 293 [place] [address] 02/03/2024 1:40 PM EST [facility] [address] [place] [phone] Aviva Rossi DO 293 [place] [address] Scheduled Procedures Name Priority Associated Diagnoses Date/Ti me COLONOSCOPY FLEXIBLE PROXIMA L DIAGNOSTIC Recall History of colonic polyps Health Maintenance Due Date Last Done Comments Cologuard 1998 Fecal Occult Blood Test 1998 Sigmoidoscopy 1998 Mammogram 06/05/2023 06/04/2022, 09/17/2013 Adult Wellness Visit 11/06/2023 11/05/2022 COVID-19 Vaccine ( season) 2023 08/25/2023, 08/25/2023, 01/07/2023, Additional history exists Influenza Vaccine (FLU shot) (#1) 2023 01/07/2023, 05/09/2022, 03/23/2018, Additional history exists HbA1c 12/18/2023 06/17/2023, 12/22, 08/06/2022, Additional history exists Albumin/Creatinine Ratio 06/16/2024 024, 06/04/2022, 04/27/2014, Additional history exists Diabetic Foot Exam 06/16/2024 06/17/2023, 0 05/09/2022, 11/08/2015, Additional history exists Depression Monitoring 08/19/2024 08/20/2023 [...] YRS AGES 18-100 Discontinued 02/05/2023, 09/18/2022, 11/26/2013 HPV (Gardasil) Vaccine Aged Out No lo [...] and were consensually agreed upon. Care Teams Marble Cutter Relationship Specialty Start Date End Date Aviva Rossi DO [address] [place] [place] [address] PCP - General Family Medicine 09/09/23 documented as of this encounter
--- OUTSIDE RECORDS SUMMARY | 2024-03-26 01:04 | External Medical Summary | Summary of Care ---
Author Name Unknown Organization [facility] Address [address] [place] [address] Phone [phone] Care Team Providers Care Air Operations Manager Name Role Phone BrianAviva rust Christian GRIGGS Primary Care Provider Encounter Details Date Type Department Care Team (Late st Contact Info) Description 02/02/2024 Population Health External Data Unspecified Department Allergies Active Allergy Reactions Criticality Noted Date Comments Codeine 11/20/2012 Nausea and vomiting Lisinopril 06/12/2015 ?cough Penicillin G 11/20/2012 Hives Hydrocodone-Acetaminophen 11/20/2012 Nausea and vomiting documented as of this encounter (statuses as of 02/02/2024) Medications Cyanocobalamin 1000 MCG Oral Tablet (Cyanocobalamin) Take 1 Tablet by mouth daily. 03/27/19 22 Active Vision Formula Eye Health Oral Capsule Take 1 Capsule by mouth daily. 05/09/19 23 Active Systane Complete PF 0.6 % Ophthalmic Solution (Propylene Glycol (PF)) Instill 1 Drop into eye as needed for Dry eyes. 09/04/19 23 Active NovoLOG FlexPen 100 UNIT/ML Subcutaneous Solution Pen-injector (insulin aspart) INJECT WITH WITH EACH MEAL PER CARB RATIO 1:7 AND CORRECTION FACTOR 1:20>120 MAX DAILY DOSE 35 UNITS 30 mL 3 05/26/2023 10:35 AM EST 10/04/19 23 Active Xultophy 100-3.6 UNIT-MG/ML Subcutaneous Solution Pen-injector (Insulin Degludec-Liraglut sri) Inject up to 50 units under the skin daily as directed per titration schedule 45 mL 3 10/02/2023 1:01 PM EDT 11/28/19 23 Active buPROPion HCl ER (SR) 150 MG Oral Tablet Extended Release 12 Hour (Wellbutrin SR)Indications:Ma charlette depressive disorder, single episode, in partial remission (HCC) Take 1 Tablet by mouth daily. 100 Tablet 3 07/14/2023 7:46 AM EDT 04/04/19 24 Active buPROPion HCl ER (SR) 100 MG Oral Tablet Extended Release 12 Hour (Wellbutrin SR)Indications:Ma char[place] depressive disorder, single episode, in partial remission (HCC) Take 1 Tablet by mouth in the morning. 100 Tablet 3 07/14/2023 7:46 AM EDT 04/04/19 24 Active Myrbetriq 50 MG Oral Tablet Extended Release 24 Hour (Mirabegron ER)Indications:St ress incontinence Take 1 Tablet by mouth in [...] daily) Active Famotidine 20 MG Oral Tablet (Pepcid)Indicatio ns:Gastroesophage al reflux disease, unspecified whether esophagitis present Take 1 Tablet by mouth in the morning and 1 Tablet before bedtime. 200 Tablet 3 01/23/2024 2:14 PM EDT 09/16/19 24 Active Losartan Potassium 25 MG Oral Tablet (Cozaar)Indicatio ns:Hypertension goal BP (blood pressure) < 140/90 Take 1 Tablet by mouth in the morning. 100 Tablet 3 09/23/2023 8:08 AM EDT 09/16/19 24 Active Additional Information Patient not taking.Reported on 11/20/2023 traMADol HCl 50 MG Oral Tablet (Ultram)Indicatio ns:Lumbar radiculopathy Take 1 Tablet by mouth daily as needed for Pain, Severe. 30 Tablet 09/16/19 24 Active Furosemide 40 MG Oral Tablet (Lasix) TAKE ONE TABLET BY MOUTH IN THE MORNING 100 Tablet 3 10/01/2023 6:07 PM EDT 09/29/19 24 Active Dexcom G7 Sensor Use as directed. Through DME 09/29/19 24 Active Apixaban 5 MG Oral Tablet (Eliquis)Indicati ons:Hospital discharge follow-up,Atrial fibrillation with RVR (HCC) TAKE ONE TABLET BY MOUTH IN THE MORNING AND ONE TABLET BEFORE BEDTIME 200 Tablet 3 10/08/2023 9:46 AM EDT 10/01/19 24 Active Additional Information Patient not taking.Reported on 01/21/2024 Ondansetron HCl 4 MG Oral TabletIndications :Nausea Take 1 Tablet by mouth every 6 hours as needed for Nausea. 30 Tablet 10/08/19 24 Active Amiodarone HCl 200 MG Oral Tablet (Cordarone) Take 1 Tablet by mouth 2 times a day with morning and evening meals. Take two times per day for one month, and then decrease to once per day- per [facility] discharge instructions Active Bumetanide 2 MG Oral Tablet Take 1 Tablet by mouth in the morning. In the morning.. 11/28/19 24 Active buPROPion HCl ER (Smoking Det) 150 MG Oral Tablet Extended Release 12 Hour TAKE 1 TABLET BY MOUTH EVERY DAY WITH 100MG FOR A TOTAL DAILY DOSE OF 250MG IN THE MORNING 10/27/19 24 Active Bacid Oral CapsuleIndication s:Urinary tract infection without hematuria, site unspecified,Need for prophylactic measure Take 1 Capsule by mouth in the morning and 1 Capsule at noon and 1 Capsule in the evening. Take before meals. 30 Capsule 01/21/20 24 Active Atorvastatin Calcium 20 MG Oral Tablet (Lipitor) TAKE ONE TABLET BY MOUTH DAILY 100 Tablet 1 01/23/2024 4:47 PM EDT 01/23/20 24 025 Active Pen [place] 06/06" 31G X 5 MM Use daily to inject insulin 4 times daily 400 Each 1 01/23/20 24 Active FLUoxetine HCl 20 MG Oral Capsule (PROzac)Indicatio ns:Major depressive disorder, single episode, in partial remission (HCC) Take 1 Capsule by mouth in the morning. 100 Capsule 1 01/23/20 24 Active FLUoxetine HCl 40 MG Oral Capsule (PROzac)Indicatio ns:Major depressive disorder, single episode, in partial remission (HCC) Take 1 Capsule by mouth in the morning. 100 Capsule 1 01/23/20 Active ProAir HFA 108 (90 Base) MCG/ACT Inhalation Aerosol SolutionIndicatio ns:Shortness of breath,History of asthma Inhale 2 Puffs by mouth 4 times a day as needed for Dyspnea. 54 g 1 01/23/20 24 Active documented as of this encounter (statuses as of 02/02/2024) Active Problems Problem Noted Date Diagnosed Date [...] . Vocal cords. ENT in [facility]. Central serous retinopathy Major depression in partial remission documented as of this encounter (statuses as of 02/02/2024) Resolved Problems Problem Noted Date Diagnosed Date [...] Psychiatrist. Sees Dr Sanders-Lawrence @[facility] [phone] Morbid obesity 12/26/2016 Overview: Per Obesity protocol #1 PMB (postmenopausal bleeding) 11/12/2013 Chronic cough 08/22/2023 Productive cough 08/22/2023 Overview (12/18/2012): chronic Left knee injury 06/09/2023 Elevated WBC count 4 documented as of this encounter (statuses as of 02/02/2024) Immunizations Name Administration Dates Next Due COVID-19 mRNA, LNP-s, No Pre serve, 2-Dose Series ([facility]) 09/21/2020,05/22/2020 COVID-19, MRNA-LNP, PF, 30 M CG/0.3 [...] 1:10 PM EST Pharmacy Family Practice [facility] [address] [place] [address] College, Pharmacist [address] [address] 02/03/2024 1:40 PM EST Office Visit Family Practice [facility] 293 [place] [address] Aviva Rossi DO [address] [place] [address] Scheduled Procedures Name Priority Associated Diagnoses Date/Ti [...] and were consensually agreed upon. Care Teams Air Operations Manager Relationship Specialty Start Date End Date Aviva Rossi DO [address] [place] [address] PCP - General Family Medicine 09/09/23 documented as of this encounter
--- OUTSIDE RECORDS SUMMARY | 2024-03-26 01:04 | External Medical Summary | Summary of Care ---
Author Name Unknown Organization [facility] Address [address] [place] [address] Phone [phone] Care Team Providers Care Oil Separator Name Role Phone BrianAviva rust Christian GRIGGS Primary Care Provider Encounter Details Date Type Department Care Team (Late st Contact Info) Description 02/03/2024 Population Health External Data Unspecified Department Allergies [...] then decrease to once per day- per [facility] discharge instructions Active Bumetanide 2 MG Oral [...] PM EDT 01/23/20 24 025 Active Pen [place] 06/06" 31G X 5 MM Use daily [...] ENT in [facility]. Central serous retinopathy Major depression in partial [...] start lantus/novolog-refer MTM----, Psychiatrist. Sees Dr Sanders-Lawrence @[facility] [phone] Morbid obesity 12/26/2016 Overview: Per Obesity protocol #1 PMB (postmenopausal bleeding) 11/12/2013 Chronic cough 08/22/2023 Productive cough 08/22/2023 Overview (12/18/2012): chronic Left knee injury 06/09/2023 Elevated WBC count 4 documented as of this encounter (statuses as of 02/03/2024) Immunizations Name Administration Dates Next Due COVID-19 mRNA, LNP-s, No Pre serve, 2-Dose Series ([employer]) 09/21/2020,05/22/2020 COVID-19, MRNA-LNP, PF, 30 M CG/0.3 [...] 1:10 PM EST Pharmacy Family Practice 65 [facility] [address] [place] [address] College, Pharmacist [address] [address] 02/03/2024 1:40 PM EST Office Visit Family Practice 65 [facility] 293 [place] [address] Aviva Rossi DO [address] [place] [address] Scheduled Procedures Name Priority Associated Diagnoses Date/Ti [...] and were consensually agreed upon. Care Teams Oil Separator Relationship Specialty Start Date End Date Aviva Rossi DO [address] [place] [address] PCP - General Family Medicine 09/09/23 documented as of this encounter
--- OUTSIDE RECORDS SUMMARY | 2024-03-26 01:04 | External Medical Summary | Summary of Care ---
Author Name Unknown Organization [facility] Address [address] [place] [address] Phone [phone] Care Team Providers Care Account Processor Name Role Phone BrianAviva rust Christian GRIGGS Primary Care Provider Encounter Details Date Type Department Care Team (Late st Contact Info) Description 01/30/2024 Population Health External Data Unspecified Department Allergies Active Allergy Reactions Criticality Noted Date Comments Codeine 11/20/2012 Nausea and vomiting Lisinopril 06/12/2015 ?cough Penicillin G 11/20/2012 Hives Hydrocodone-Acetaminophen 11/20/2012 Nausea and vomiting documented as of this encounter (statuses as of 01/30/2024) Medications Cyanocobalamin 1000 MCG Oral Tablet (Cyanocobalamin) [...] then decrease to once per day- per [facility] discharge instructions Active Bumetanide 2 MG Oral [...] PM EDT 01/23/20 24 025 Active Pen [place] 06/06" 31G X 5 MM Use daily [...] as of this encounter (statuses as of 01/30/2024) Active Problems Problem Noted Date Diagnosed Date [...] 1999. Dx . Vocal cords. ENT in [facility]. Central serous retinopathy Major depression in partial remission documented as of this encounter (statuses as of 01/30/2024) Resolved Problems Problem Noted Date Diagnosed Date [...] start lantus/novolog-refer MTM----, Psychiatrist. Sees Dr Sanders-Lawrence @[facility] [phone] Morbid obesity 12/26/2016 Overview: Per Obesity protocol #1 PMB (postmenopausal bleeding) 11/12/2013 Chronic cough 08/22/2023 Productive cough 08/22/2023 Overview (12/18/2012): chronic Left knee injury 06/09/2023 Elevated WBC count 4 documented as of this encounter (statuses as of 01/30/2024) Immunizations Name Administration Dates Next Due COVID-19 mRNA, LNP-s, No Pre serve, 2-Dose Series ([employer]) 09/21/2020,05/22/2020 COVID-19, MRNA-LNP, PF, 30 M CG/0.3 [...] 1:10 PM EST Pharmacy Family Practice 65 [facility] 293 [place] [address] College, Pharmacist [address] [address] 02/03/2024 1:40 PM EST Office Visit Family Practice 65 [facility] 293 [place] [address] Aviva Rossi DO [address] [place] [address] Scheduled Procedures Name Priority Associated Diagnoses Date/Ti [...] and were consensually agreed upon. Care Teams Account Processor Relationship Specialty Start Date End Date Aviva Rossi DO [address] [place] [address] PCP - General Family Medicine 09/09/23 documented as of this encounter
--- OUTSIDE RECORDS SUMMARY | 2024-03-26 01:04 | External Medical Summary | Summary of Care ---
Author Name Unknown Organization [facility] Address [address] [place] [address] Phone [phone] Care Team Providers Care Finance Teacher Name Role Phone Aviva Rossi DO Primary Care Provider Reason for Visit * Reason Onset Date Comments Advice 01/27/2024 Leg pain Information 01/27/202401/26 Encounter Details Date Type Department Care Team (Late st Contact Info) Description 01/27/2024 Telephone Family Practice [address] [facility] [address] [place] [phone] Aviva Rossi DO [address] [place] [address] Advice (Leg pain); Information (01/26) Allergies Active Allergy Reactions Criticality Noted Date Comments Codeine 11/20/2012 Nausea and vomiting Lisinopril 06/12/2015 ?cough Penicillin G 11/20/2012 Hives Hydrocodone-Acetaminophen 11/20/2012 Nausea and vomiting documented as of this encounter (statuses as of 01/28/2024) Medications Medication Sig Dispensed Refills Start Date [...] then decrease to once per day- per [facility] discharge instructions Active Bumetanide 2 MG [...] DAILY 100 Tablet 1 01/23/2024 Active Pen [place] 06/06" 31G X 5 MM Use daily [...] as of this encounter (statuses as of 01/28/2024) Active Problems Problem Noted Date Diagnosed Date [...] as of this encounter (statuses as of 01/28/2024) Resolved Problems Problem Noted Date Diagnosed Date [...] start lantus/novolog-refer MTM----, Psychiatrist. Sees Dr Sanders-Lawrence @[facility] [phone] Morbid obesity 12/26/2016 Overview: Per Obesity protocol #1 PMB (postmenopausal bleeding) 11/12/2013 Chronic cough 08/22/2023 Productive cough 08/22/2023 Overview: chronic Left knee injury 06/09/2023 Elevated WBC count 4 documented as of this encounter (statuses as of 01/28/2024) Immunizations Name Administration Dates Next Due COVID-19 mRNA, LNP-s, No Pre serve, 2-Dose Series ([employer]) 09/21/2020,05/22/2020 COVID-19, MRNA-LNP, PF, 30 M CG/0.3 mL, 12 YRS AND ABOVE, IM ([employer]-ComirnatOsurv) 08/25/2023,01/07/2023 Covid-19, Mrna, Lnp-s, Pf, B ivalent, 30 Mcg, IM, 12 yrs and above ([employer]) 05/09/2022 Pneumococcal Conjugate Vaccine, 20-valent (Prevn ar20) [...] Telephone Encounter - Aviva Rossi DO - 01/28/2024 1:26 PM EST Noted. * Telephone Encounter - Michelle Tim LPN - 01/28/2024 10:56 AM EST Call placed to patient. Pt states left hip is better today, but left leg is still swollen. Aware she will need to have full appt with Dr. Rossi as she has not been seen since hospital d/c. Advisedpt to go to Urgent Care to have leg evaluated and she states she will. Pt states she has appt scheduled on 02/03/[address] Rossi and pharmacy. Pt states she does have [employer] insurance again - all insurance issues have been taken care of. * Telephone Encounter - Mary Ny OSA - 01/27/2024 3:31 PM EST Called in and noticed that her left leg was swollen and that her hip hurts Started last night Want to know what you think she should do documented in this encounter Plan of Treatment Upcoming Encounters Date Type Department Care Team (Late st Contact Info) Description 02/03/2024 1:10 PM EST Pharmacy Family Practice [address] [place] [address] [place] [phone] College, Pharmacist [address] [facility] [address] [facility] [place] [address] 02/03/2024 1:40 PM EST Office Visit Family Practice [address] [place] [address] [place] [phone] Aviva Rossi DO [address] [facility] [place] [address] Scheduled Procedures Name Priority Associated Diagnoses Date/Ti [...] and were consensually agreed upon. Care Teams Finance Teacher Relationship Specialty Start Date End Date Aviva Rossi DO [address] [facility] [place] [address] PCP - General Family Medicine 09/09/23 documented as of this encounter
--- OUTSIDE RECORDS SUMMARY | 2024-03-26 01:04 | External Medical Summary | Summary of Care ---
Author Name Unknown Organization [facility] Address [address] [place] [address] Phone [phone] Care Team Providers Care Associate Buyer Name Role Phone BrianLucy rusttita Gonzales DO Primary Care Provider Encounter Details Date Type Department Care Team (Late st Contact Info) Description 01/28/2024 Population Health External Data Unspecified Department Allergies [...] then decrease to once per day- per [facility] discharge instructions Active Bumetanide 2 MG [...] DAILY 100 Tablet 1 01/23/2024 Active Pen [place] 06/06" 31G X 5 MM Use daily [...] start lantus/novolog-refer MTM----, Psychiatrist. Sees Dr Witt @[facility] [phone] Morbid obesity 12/26/2016 Overview: Per Obesity protocol #1 PMB (postmenopausal bleeding) 11/12/2013 Chronic cough 08/22/2023 Productive cough 08/22/2023 Overview: chronic Left knee injury 06/09/2023 Elevated WBC count documented as of this encounter (statuses as of 01/28/2024) Immunizations Name Administration Dates Next Due COVID-19 mRNA, LNP-s, No Pre serve, 2-Dose Series ([employer]) 09/21/2020,05/22/2020 COVID-19, MRNA-LNP, PF, 30 M CG/0.3 mL, 12 YRS AND ABOVE, IM ([employer]-Comirnaty) 08/25/2023,01/07/2023 Covid-19, Mrna, Lnp-s, Pf, B [...] 1:10 PM EST Pharmacy Family Practice 65 [facility] [address] [place] [phone] College, Pharmacist [address] [facility] [address] [place] [address] 02/03/2024 1:40 PM EST [facility] [address] [place] [phone] Aviva Rossi DO [address] [place] [address] Scheduled Procedures Name Priority Associated Diagnoses Date/Ti [...] and were consensually agreed upon. Care Teams Associate Buyer Relationship Specialty Start Date End Date Aviva Rossi DO [address] [place] [address] PCP - General Family Medicine 09/09/23 documented as of this encounter
--- OUTSIDE RECORDS SUMMARY | 2024-03-26 01:05 | External Medical Summary | Summary of Care ---
Author Name Unknown Organization [facility] Address [address] [place] [address] Phone [phone] Care Team Providers Care Oil Field Worker Name Role Phone BrianAviva rust Christian GRIGGS Primary Care Provider Encounter Details Date Type Department Care Team (Late st Contact Info) Description 01/22/2024 Population Health External Data Unspecified Department Allergies Active Allergy Reactions Criticality Noted Date Comments Codeine 11/20/2012 Nausea and vomiting Lisinopril 06/12/2015 ?cough Penicillin G 11/20/2012 Hives Hydrocodone-Acetaminophen 11/20/2012 Nausea and vomiting documented as of this encounter (statuses as of 01/22/2024) Medications Medication Sig Dispensed Refills Start Date End Date Status Cyanocobalamin 1000 MCG Oral Tablet (Cyanocobalamin) Take 1 Tablet by mouth daily. 03/27/2021 Active Vision Formula Eye Health Oral Capsule Take 1 Capsule by mouth daily. 05/09/2022 Active Systane Complete PF 0.6 % Ophthalmic Solution (Propylene Glycol (PF)) Instill 1 Drop into eye as needed for Dry eyes. 09/03/2022 Active Atorvastatin Calcium 20 MG Oral Tablet (Lipitor) TAKE ONE TABLET BY MOUTH DAILY 100 Tablet 3 08/06/2022 Active NovoLOG FlexPen 100 UNIT/ML Subcutaneous Solution Pen-injector (insulin aspart) INJECT WITH WITH EACH MEAL PER CARB RATIO 1:7 AND CORRECTION FACTOR 1:20>120 MAX DAILY DOSE 35 UNITS 30 mL 3 10/03/2022 Active Xultophy 100-3.6 UNIT-MG/ML Subcutaneous Solution Pen-injector (Insulin Degludec-Liraglutid e) Inject up to 50 units under the skin daily as directed per titration schedule 45 mL 3 11/27/2022 Active Pen [place] 06/06" 31G X 5 MM Use daily to inject insulin 4 times daily 400 Each 1 11/27/2022 Active Additional Information Patient not taking.Reported on 11/20/2023 FLUoxetine HCl 20 MG Oral Capsule (PROzac)Indications [...] then decrease to once per day- per [facility] discharge instructions Active Bumetanide 2 MG Oral Tablet Take 1 Tablet by mouth in the morning. In the morning.. 11/28/2023 Active buPROPion HCl ER (Smoking Det) 150 MG Oral Tablet Extended Release 12 Hour TAKE 1 TABLET BY MOUTH EVERY DAY WITH 100MG FOR A TOTAL DAILY DOSE OF 250MG IN THE MORNING 10/27/2023 Active Ciprofloxacin HCl 250 MG Oral Tablet (Cipro)Indications: Urinary tract infection without hematuria, site unspecified Take 1 Tablet by mouth in the morning and 1 Tablet before bedtime. Do all this for 4 days. 8 Tablet 01/21/2024 Active Bacid Oral CapsuleIndications: Urinary tract infection without hematuria, site unspecified,Need for prophylactic measure Take 1 Capsule by mouth in the morning and 1 Capsule at noon and 1 Capsule in the evening. Take before meals. 30 Capsule 01/21/2024 Active documented as of this encounter (statuses as of 01/22/2024) Active Problems Problem Noted Date Diagnosed Date [...] as of this encounter (statuses as of 01/22/2024) Resolved Problems Problem Noted Date Diagnosed Date [...] start lantus/novolog-refer MTM----, Psychiatrist. Sees Dr Sanders-Lawrence @[facility] [phone] Morbid obesity 12/26/2016 Overview: Per Obesity protocol #1 PMB (postmenopausal bleeding) 11/12/2013 Chronic cough 08/22/2023 Productive cough 08/22/2023 Overview: chronic Left knee injury 06/09/2023 Elevated WBC count 4 documented as of this encounter (statuses as of 01/22/2024) Immunizations Name Administration Dates Next Due COVID-19 mRNA, LNP-s, No Pre serve, 2-Dose Series ([employer]) 09/21/2020,05/22/2020 COVID-19, MRNA-LNP, 23-24, P F, 30 MCG/0.3 mL, 12 YRS AND ABOVE, IM ([employer]Comirnaty) 08/25/2023,01/07/2023 Covid-19, Mrna, Lnp-s, Pf, B ivalent, 30 Mcg, IM, 12 yrs and above ([employer]) 05/09/2022 Pneumococcal Conjugate Vaccine, 20-valent (Prevn ar20) [...] as of this encounter Plan of Treatment Scheduled Procedures Name Priority Associated Diagnoses Date/Ti [...] were consensually agreed upon. Care Teams Oil Field Worker Relationship Specialty Start Date End Date Aviva Rossi DO [address] [place] [address] PCP - General Family Medicine 09/09/23 documented as of this encounter
--- OUTSIDE RECORDS SUMMARY | 2024-03-26 01:05 | External Medical Summary | Summary of Care ---
Author Name Unknown Organization [facility] Address [address] [place] [address] Phone [phone] Care Team Providers Care Pump Erector Helper Name Role Phone BrianAviva rust Christian GRIGGS Primary Care Provider Encounter Details Date Type Department Care Team (Late st Contact Info) Description 01/23/2024 Population Health External Data Unspecified Department Allergies Active Allergy Reactions Criticality Noted Date Comments Codeine 11/20/2012 Nausea and vomiting Lisinopril 06/12/2015 ?cough Penicillin G 11/20/2012 Hives Hydrocodone-Acetaminophen 11/20/2012 Nausea and vomiting documented as of this encounter (statuses as of 01/23/2024) Medications Medication Sig Dispensed Refills Start Date [...] schedule 45 mL 3 11/27/2022 Active Pen [place] 06/06" 31G X 5 MM Use daily [...] then decrease to once per day- per [facility] discharge instructions Active Bumetanide 2 [...] as of this encounter (statuses as of 01/23/2024) Active Problems Problem Noted Date Diagnosed Date [...] as of this encounter (statuses as of 01/23/2024) Resolved Problems Problem Noted Date Diagnosed Date [...] start lantus/novolog-refer MTM----, Psychiatrist. Sees Dr Sanders-Lawrence @[facility] [phone] Morbid obesity 12/26/2016 Overview: Per Obesity protocol #1 PMB (postmenopausal bleeding) 11/12/2013 Chronic cough 08/22/2023 Productive cough 08/22/2023 Overview: chronic Left knee injury 06/09/2023 Elevated WBC count 4 documented as of this encounter (statuses as of 01/23/2024) Immunizations Name Administration Dates Next Due COVID-19 mRNA, LNP-s, No Pre serve, 2-Dose Series ([employer]) 09/21/2020,05/22/2020 COVID-19, MRNA-LNP, PF, 30 M CG/0.3 [...] and were consensually agreed upon. Care Teams Pump Erector Helper Relationship Specialty Start Date End Date Aviva Rossi DO [address] [place] [address] PCP - General Family Medicine 09/09/23 documented as of this encounter
--- OUTSIDE RECORDS SUMMARY | 2024-03-26 01:05 | External Medical Summary | Summary of Care ---
Author Name Unknown Organization [facility] Address [address] [place] [address] Phone [phone] Care Team Providers Care Patrol Sergeant Sheriff'[employer] Office Name Role Phone Aviva Toussaint DO Primary Care Provider Reason for Visit * Reason Comments Medication Refill Encounter Details Date Type Department Care Team (Late st Contact Info) Description 01/22/2024 Refill Family Practice [facility] [address] [place] [address] Aviva Toussaint DO [address] [place] [address] Major depressive disorder, single episode, in partial remission (HCC); Shortness of breath; History of asthma Allergies Active Allergy Reactions Criticality Noted Date [...] Active Losartan Potassium 25 MG Oral Tablet (Cozaar)Indication s:Hypertension goal BP (blood pressure) < 140/90 Take 1 Tablet by mouth in the morning. 100 Tablet 3 09/16/2023 Active Additional Information Patient not taking.Reported on 11/20/2023 traMADol HCl 50 MG Oral Tablet (Ultram)Indication s:Lumbar radiculopathy Take 1 Tablet by mouth daily as needed for Pain, Severe. 30 Tablet 09/16/2023 Active Furosemide 40 MG Oral Tablet (Lasix) TAKE ONE TABLET BY MOUTH IN THE MORNING 100 Tablet 3 09/29/2023 Active Dexcom G7 Sensor Use as directed. Through DME 09/29/2023 Active Apixaban 5 MG Oral Tablet (Eliquis)Indicatio ns:Hospital discharge follow-up,Atrial fibrillation with RVR (HCC) TAKE ONE TABLET BY MOUTH IN THE MORNING AND ONE TABLET BEFORE BEDTIME 200 Tablet 3 10/01/2023 Active Additional Information Patient not taking.Reported on 01/21/2024 Ondansetron HCl 4 MG Oral TabletIndications: Nausea Take 1 Tablet by mouth every 6 hours as needed for Nausea. 30 Tablet 10/08/2023 Active Amiodarone HCl 200 MG Oral Tablet (Cordarone) Take 1 Tablet by mouth 2 times a day with morning and evening meals. Take two times per day for one month, and then decrease to once per day- per [facility] discharge instructions Active Bumetanide 2 MG Oral Tablet Take 1 Tablet by mouth in the morning. In the morning.. 11/28/2023 Active buPROPion HCl ER (Smoking Det) 150 MG Oral Tablet Extended Release 12 Hour TAKE 1 TABLET BY MOUTH EVERY DAY WITH 100MG FOR A TOTAL DAILY DOSE OF 250MG IN THE MORNING 10/27/2023 Active Ciprofloxacin HCl 250 MG Oral Tablet (Cipro)Indications :Urinary tract infection without hematuria, site unspecified Take 1 Tablet by mouth in the morning and 1 Tablet before bedtime. Do all this for 4 days. 8 Tablet 01/21/2024 01/25/20 24 Active Bacid Oral CapsuleIndications :Urinary tract infection without hematuria, site unspecified,Need for prophylactic measure Take 1 Capsule by mouth in the morning and 1 Capsule at noon and 1 Capsule in the evening. Take before meals. 30 Capsule 01/21/2024 Active Atorvastatin Calcium 20 MG Oral Tablet (Lipitor) TAKE ONE TABLET BY MOUTH DAILY 100 Tablet 1 01/23/2024 01/23/20 25 Active Pen [place] 06/06" 31G X 5 MM Use daily [...] for Dyspnea. 54 g 1 01/23/2024 Active Atorvastatin Calcium 20 MG Oral Tablet (Lipitor) TAKE ONE TABLET BY MOUTH DAILY 100 Tablet 3 08/06/2022 01/22/20 24 Discontinu ed(Refill) Pen [place] 06/06" 31G X 5 MM Use daily to inject insulin 4 times daily 400 Each 1 11/27/2022 01/22/20 24 Discontinu ed(Refill) FLUoxetine HCl 20 MG Oral Capsule (PROzac)Indication s:Major depressive disorder, single episode, in partial remission (HCC) Take 1 Capsule by mouth in the morning. 100 Capsule 3 12/09/2022 01/22/20 24 Discontinu ed(Refill) FLUoxetine HCl 40 MG Oral Capsule (PROzac)Indication s:Major depressive disorder, single episode, in partial remission (HCC) Take 1 Capsule by mouth in the morning. 100 Capsule 3 12/09/2022 01/22/20 24 Discontinu ed(Refill) ProAir HFA 108 (90 Base) MCG/ACT Inhalation Aerosol SolutionIndication s:Shortness of breath,History of asthma Inhale 2 Puffs by mouth 4 times a day as needed for Dyspnea. 54 g 1 01/08/2023 01/22/20 24 Discontinu ed(Refill) documented as of this encounter (statuses as [...] start lantus/novolog-refer MTM----, Psychiatrist. Sees Dr Sanders-Lawrence @[facility] [phone] Morbid obesity 12/26/2016 Overview: Per Obesity protocol #1 PMB (postmenopausal bleeding) 11/12/2013 Chronic cough 08/22/2023 Productive cough 08/22/2023 Overview: chronic Left knee injury 06/09/2023 Elevated WBC count 4 documented as of this encounter (statuses as of 01/23/2024) Immunizations Name Administration Dates Next Due COVID-19 mRNA, LNP-s, No Pre serve, 2-Dose Series ([employer]) 09/21/2020,05/22/2020 COVID-19, MRNA-LNP, PF, 30 M CG/0.3 mL, 12 YRS AND ABOVE, IM ([employer]-Comirnaty) 08/25/2023,01/07/2023 Covid-19, Mrna, Lnp-s, Pf, B ivalent, 30 Mcg, IM, 12 yrs and above ([employer]) 05/09/2022 Pneumococcal Conjugate Vaccine, 20-valent (Prevn ar20) [...] encounter Miscellaneous Notes * Telephone Encounter - Liza Cowart [facility] - 01/23/2024 1:47 PM EDTSigned Prescriptions: Disp Refills Atorvastatin Calcium 20 MG Oral Tablet (Li*100 Ta*1 Sig: TAKE ONE TABLET BY MOUTH DAILY Authorizing Provider: AVIVA TOUSSAINT Ordering User: LIZA COWART Pen [place] 06/06" 31G X 5 MM 400 Ea*1 Sig: Use daily to inject insulin 4 times daily Authorizing Provider: AVIVA TOUSSAINT Ordering User: LIZA COWART Rey LUoxetine HCl 20 MG Oral Capsule (PROzac) 100 Ca*1 Sig: Take 1 Capsule by mouth in the morning. Authorizing Provider: AVIVA TOUSSAINT Ordering User: LIZA COWART FLUoxetine HCl 40 MG Oral Capsule (PROzac) 100 Ca*1 Sig: Take 1 Capsule by mouth in the morning. Authorizing Provider: AVIVA TOUSSAINT Ordering User: LIZA COWART ProAir HFA 108 (90 Base) MCG/ACT Inhalatio*54 g 1 Sig: Inhale 2 Puffs by mouth 4 times a day as needed for Dyspnea. Authorizing Provider: AVIVA TOUSSAINT Ordering User: LIZA COWART * Telephone Encounter - Felicia Anglin, mental health professional - 01/23/2024 12:21 PM EDT Did you pend patient's preferred pharmacy and medication before forwarding?yes Pharmacy: [facility] Pending Prescriptions: Disp Refills Atorvastatin Calcium 20 MG Oral Tablet (L*100 Ta*3 Sig: TAKE ONE TABLET BY MOUTH DAILY Pen [place] 06/06" 31G X 5 MM 400 Ea*1 Sig: Use daily to inject insulin 4 times daily FLUoxetine HCl 20 MG Oral Capsule (PROzac)100 Ca*3 Sig: Take 1 Capsule by mouth in the morning. FLUoxetine HCl 40 MG Oral Capsule (PROzac)100 Ca*3 Sig: Take 1 Capsule by mouth in the morning. ProAir HFA 108 (90 Base) MCG/ACT Inhalati*54 g 1 Sig: Inhale 2 Puffs by mouth 4 times a day as needed for Dyspnea. Last Visit: 09/16/2023 (in office), 09/23/2023 (telemedicine) Next Visit: Visit date not found If no future appointments scheduled, and last appointment is greater than a year ago, please schedule patient for a follow-up appointment Last date the medication was ordered: 08/06 12/09 Is this request for a controlled substance?No Urine Drug Screen:No results found for this or any previous visit. Patient Phone Numbers Labs: Lab Results Component Value Date/Time CREAT 1.2 (H) 09/16/2023 11:30 AM CREAT 0.8 12/28/2015 12:00 AM CREAT 0.8 06/03/2015 01:55 PM POTASSIUM 5.0 09/16/2023 11:30 AM POTASSIUM 3.9 12/28/2015 12:00 AM POTASSIUM 4.3 06/03/2015 01:55 PM TSH 3.70 06/17/2023 09:52 AM LDL 100 04/19/2022 08:26 AM LDL 96 11/08/2015 10:50 AM LDL NOT APPLICABLE 11/08/2015 10:50 AM ALT 17 08/25/2023 01:00 PM ALT 22 12/28/2015 12:00 AM ALT 25 05/16/2015 03:55 PM HGBA1C 6.1 (H) 06/17/2023 09:52 AM HGBA1C 9.8 (H) 11/08/2015 10:50 AM documented in this encounter Plan of Treatment Scheduled Procedures [...] single episode, in partial or unspecified remission Shortness of breath History of asthma Personal history of other diseases of respiratory system documented in this encounter Advance Directives * [...] and were consensually agreed upon. Care Teams Patrol Sergeant Sheriff'S Office Relationship Specialty Start Date End Date Aviva Toussaint DO [address] [place] [address] PCP - General Family Medicine 09/09/23 documented as of this encounter
--- OUTSIDE RECORDS SUMMARY | 2024-03-26 01:05 | External Medical Summary | Summary of Care ---
Author Name Unknown Organization [facility] Address [address] [place] [address] Phone [phone] Care Team Providers Care Director Of Player Personnel Name Role Phone BrinaLucy rusttita Gonzales DO Primary Care Provider [phone] Encounter Details Date Type Department Care Team (Late st Contact Info) Description 01/26/2024 Population Health External Data Unspecified Department Allergies Active Allergy Reactions Criticality Noted Date Comments Codeine 11/20/2012 Nausea and vomiting Lisinopril 06/12/2015 ?cough Penicillin G 11/20/2012 Hives Hydrocodone-Acetaminophen 11/20/2012 Nausea and vomiting documented as of this encounter (statuses as of 01/26/2024) Medications Medication Sig Dispensed Refills Start Date [...] then decrease to once per day- per [facility] discharge instructions Active Bumetanide 2 [...] DAILY 100 Tablet 1 01/23/2024 Active Pen [place] 06/06" 31G X 5 MM Use daily [...] as of this encounter (statuses as of 01/26/2024) Active Problems Problem Noted Date Diagnosed Date [...] as of this encounter (statuses as of 01/26/2024) Resolved Problems Problem Noted Date Diagnosed Date [...] start lantus/novolog-refer MTM----, Psychiatrist. Sees Dr Sanders-Lawrence @[facility] [phone] Morbid obesity 12/26/2016 Overview: Per Obesity protocol #1 PMB (postmenopausal bleeding) 11/12/2013 Chronic cough 08/22/2023 Productive cough 08/22/2023 Overview: chronic Left knee injury 06/09/2023 Elevated WBC count documented as of this encounter (statuses as of 01/26/2024) Immunizations Name Administration Dates Next Due COVID-19 mRNA, LNP-s, No Pre serve, 2-Dose Series ([employer]) 09/21/2020,05/22/2020 COVID-19, MRNA-LNP, PF, 30 M [...] consensually agreed upon. Care Teams Director Of Player Personnel Relationship Specialty Start Date End Date Aviva Rossi DO [address] [facility] [place] [address] PCP - General Family Medicine 09/09/23 documented as of this encounter
--- OUTSIDE RECORDS SUMMARY | 2024-03-26 01:06 | External Medical Summary | Summary of Care ---
Author Name Unknown Organization [facility] Address [address] [place] [address] Phone [phone] Care Team Providers Care Center Medical And Lab Director Name Role Phone BrianLucy rusttita Gonzales DO Primary Care Provider Reason for Visit * Reason Comments Urinary Tract Infection Symptoms Encounter Details Date Type Department Care Team (Latest Contact Info) Description 01/21/2024 10:45 AM EDT Convenient Care Visit [facility] [address] [place] [address] Gwendolyn Parada CRNP [address] [place] [address] Urinary tract infection without hematuria, site unspecified*; Dysuria; Need for prophylactic measure Allergies Active Allergy Reactions Criticality Noted Date Comments Codeine 11/20/2012 Nausea and vomiting Lisinopril 06/12/2015 ?cough Penicillin G 11/20/2012 Hives Hydrocodone-Acetaminophen 11/20/2012 Nausea and vomiting documented as of this encounter (statuses as of 01/21/2024) Medications Medication Sig Dispensed Refills Start Date [...] schedule 45 mL 3 11/27/2022 Active Pen [place] 06/06" 31G X 5 MM Use daily [...] then decrease to once per day- per [facility] discharge instructions Active Bumetanide 2 [...] as of this encounter (statuses as of 01/21/2024) Active Problems Problem Noted Date Diagnosed Date [...] 1999. Dx . Vocal cords. ENT in [facility]. Central serous retinopathy Major depression in partial remission documented as of this encounter (statuses as of 01/21/2024) Resolved Problems Problem Noted Date Diagnosed Date [...] lantus/novolog-refer MTM----, Psychiatrist. Sees Dr Sanders-Lawrence @[facility] [phone] Morbid obesity 12/26/2016 Overview: Per Obesity protocol #1 PMB (postmenopausal bleeding) 11/12/2013 Chronic cough 08/22/2023 Productive cough 08/22/2023 Overview: chronic Left knee injury 06/09/2023 Elevated WBC count 4 documented as of this encounter (statuses as of 01/21/2024) Immunizations Name Administration Dates Next Due COVID-19 mRNA, LNP-s, No Pre serve, 2-Dose Series ([employer]) 09/21/2020,05/22/2020 COVID-19, MRNA-LNP, 23-24, P F, 30 [...] Sign Reading Time Taken Comments Blood Pressure 118/62 01/21/2024 10:48 AM EDT Pulse 79 01/21/2024 10:48 AM EDT Temperature 36.6 C (97.9 F) 01/21/2024 10:48 AM E DT Respiratory Rate 28 01/21/2024 10:48 AM EDT Oxygen Saturation 95% 01/21/2024 10:48 AM EDT Inhaled Oxygen Concentration - - Weight 123.8 kg (273 lb) 01/21/2024 10:48 AM EDT Height 157.5 cm (5' 2") 01/21/2024 10:48 AM EDT Body Mass Index 49.93 01/21/2024 10:48 AM EDT documented in this encounter Progress Notes * Gwendolyn Parada CRNP - 01/21/2024 11:14 AM EDT Convenient Care Basic Exam Subjective Lisa Gamboa is a 68 year old female that presents to the [facility] with dysuria and fatigue x 3 days. She has a history of UTIs and this feels similar to them. She was in the hospital with a UTI in October after attempted outpatient treatment with first Bactrim, then Macrobid. Objective BP 118/62 | Pulse 79 | Temp 36.6 C (97.9 F) (Tympanic) | Resp 28 | Ht 1.575 m (5' 2") | Wt 123.8 kg (273 lb) | SpO2 95% | BMI 49.93 kg/m | BSA 2.33 m Body mass index is 49.93 kg/m. Review of Systems Constitutional: Positive for fatigue. HENT: Negative. Eyes: Negative. Respiratory: Negative. Cardiovascular: Negative. Gastrointestinal: Negative. Genitourinary: Positive for dysuria. Musculoskeletal: Negative. Neurological: Positive for weakness. Physical Exam Vitals and nursing note reviewed. HENT: Head: Normocephalic. Cardiovascular: Rate and Rhythm: Normal rate. Pulmonary: Effort: Pulmonary effort is normal. Skin: General: Skin is dry. Neurological: Mental Status: She is alert and oriented to person, place, and time. Psychiatric: Behavior: Behavior normal. 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 Chronic cough DM (diabetes mellitus) ([facility]) Elevated WBC count 80s Endometrial cancer ([facility]) Ex-smoker 09/03/2013 IBS (irritable bowel syndrome) Left knee injury meniscus tear, medial condyle fracutre Major depression in partial remission ([facility]) Microalbuminuric diabetic nephropathy ([facility]) 04/28/2014 Morbid obesity ([facility]) Myasthenia gravis ([facility]) Ocular migraine Productive cough chronic PSVT (paroxysmal supraventricular tachycardia) ([facility]) 80s due to albuterol, theophylline Pyelonephritis [address] [place] [address] Sleep apnea Sleep apnea, obstructive Stress incontinence Patient Active Problem List Diagnosis ADVANCE DIRECTIVE INFORMATION IBS (irritable bowel syndrome) Stress incontinence Type 2 diabetes mellitus with hemoglobin A1c goal of less than 8.0% ([facility]) Myasthenia gravis ([facility]) Central serous retinopathy Major depression in partial remission ([facility]) Ex-smoker Microalbuminuric diabetic nephropathy ([facility]) Other specified peripheral vascular diseases ([facility]) Diabetes mellitus with peripheral vascular disease ([facility]) Dyslipidemia 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 ([facility]) Recurrent major depressive disorder, in partial remission ([facility]) Attention deficit hyperactivity disorder (ADHD) BMI 50.0-59.9, adult ([facility]) BP Readings from Last 3 Encounters: 01/21/24 118/62 10/01/23 118/64 09/22/23 100/58 Wt Readings from Last 3 Encounters: 01/21/24 123.8 kg (273 lb) 10/01/23 124.7 kg (275 lb) 09/16/23 125.1 kg (275 lb 12.8 oz) Assessment and plan Urinary tract infection without hematuria, site unspecified (Primary) - Ciprofloxacin HCl 250 MG Oral Tablet (Cipro); Take 1 Tablet by mouth in the morning and 1 Tablet before bedtime. Do all this for 4 days. - Bacid Oral Capsule; Take 1 Capsule by mouth in the morning and 1 Capsule at noon and 1 Capsule inthe evening. Take before meals. Dysuria - URINALYSIS, POINT OF CARE (ENTER/EDIT) - CULTURE, URINE, QUANTITATIVE Need for prophylactic measure - Bacid Oral Capsule; Take 1 Capsule by mouth in the morning and 1 Capsule at noon and 1 Capsule inthe evening. Take before meals. UA + protein and leuk esterase. Will send UC for formal sensitivity/resistance data. Attempted to start with typical Bactrim/Macrobid but she reports renal injury when taking Bactrim and her last documented renal function labs advise against using macrobid. Will opt for Cipro. She was previously made to take Cipro x 10 days after a UTI - will increase standard 3d to 4d, supply withprobiotics, and if her symptoms do not resolve or worsen she will reach out or seek evaluation. if the UC indicates need for alternate rx Follow up Follow Up: Return if symptoms worsen or fail to improve. Total time today including reviewing chart before the visit, pertinent labs, imaging reports, face to face time, and documentation time was 15 minutes. The above was discussed and understanding was expressed. RICCI Jackson documented in this encounter Nursing Notes * Renate Guevara LPN - 01/21/2024 10:54 AM EDT Pt presents alone with c/o of uti for 3 days documented in this encounter Plan of Treatment Pending Results Name Type Priority Associated Diagnoses Date /Time CULTURE, URINE, QUANTITATIVE Lab Routine Dysuria 01/21/2024 11:44 AM EDT Scheduled Procedures Name Priority Associated [...] Comments URINALYSIS, POINT OF CARE (ENTER/EDIT) Routine 01/21/2024 11:42 AM EDT Dysuria documented in this encounter Results * (ABNORMAL) URINALYSIS, POINT OF CARE (ENTER/EDIT) (01/21/2024 11:42 AM EDT) Color, Urine Dark Yellow Yellow or Light Yellow Clarity, Urine Cloudy Clear Glucose, Urine Negative Negative mg/dL Bilirubin, Urine Negative Negative Ketone, Urine Negative Negative mg/dL Specific [place], Urine 1.020 1.003 - 1.030 Blood, Urine Negative Negative pH, Urine 5.5 5.0 - 7.5 units Protein, Urine 30 Negative mg/dL Urobilinogen, Urine 0.2 0.2 - 1.0 mg/dL Nitrite, Urine Negative Negative Esterase, Urine Trace Negative Urine 01/21/2024 11:4 2 AM EDT Gwendolyn WYNNE LAB POINT OF CARE TE ST ENTER/EDIT ORDERABLES documented in this encounter Visit Diagnoses Diagnosis Urinary tract infection without hematuria, site unspecified- Primary Dysuria Need for prophylactic measure Unspecified prophylactic or treatment measure documented in this encounter Advance Directives * [...] and were consensually agreed upon. Care Teams Center Medical And Lab Director Relationship Specialty Start Date End Date Aviva Rossi DO [address] [place] [address] PCP - General Family Medicine 09/09/23 documented as of this encounter
--- OUTSIDE RECORDS SUMMARY | 2024-03-26 01:06 | External Medical Summary | Summary of Care ---
Author Name Unknown Organization [facility] Address [address] [place] [address] Phone [phone] Care Team Providers Care [employer] Sales Engineer Name Role Phone BrianAviva rust Christian GRIGGS Primary Care Provider Encounter Details Date Type Department Care Team (Late st Contact Info) Description 01/06/2024 Population Health External Data Unspecified Department Allergies Active Allergy Reactions Criticality Noted Date Comments Codeine 11/20/2012 Nausea and vomiting Lisinopril 06/12/2015 ?cough Penicillin G 11/20/2012 Hives Hydrocodone-Acetaminophen 11/20/2012 Nausea and vomiting documented as of this encounter (statuses as of 01/07/2024) Medications Medication Sig Dispensed Refills Start Date [...] schedule 45 mL 3 11/27/2022 Active Pen [place] 06/06" 31G X 5 MM Use daily [...] BEFORE BEDTIME 200 Tablet 3 10/01/2023 Active Ondansetron HCl 4 MG Oral TabletIndications:N ausea Take 1 Tablet by mouth every 6 hours as needed for Nausea. 30 Tablet 10/08/2023 Active Amiodarone HCl 200 MG Oral Tablet (Cordarone) Take 1 Tablet by mouth 2 times a day with morning and evening meals. Take two times per day for one month, and then decrease to once per day- per [facility] discharge instructions Active documented as of this encounter (statuses as of 01/07/2024) Active Problems Problem Noted Date Diagnosed Date [...] as of this encounter (statuses as of 01/07/2024) Resolved Problems Problem Noted Date Diagnosed Date [...] MTM----, Psychiatrist. Sees Dr Sanders-Lawrence @[facility] [phone] Morbid obesity 12/26/2016 Overview: Per Obesity protocol #1 PMB (postmenopausal bleeding) 11/12/2013 Chronic cough 08/22/2023 Productive cough 08/22/2023 Overview: chronic Left knee injury 06/09/2023 Elevated WBC count documented as of this encounter (statuses as of 01/07/2024) Immunizations Name Administration Dates Next Due COVID-19 mRNA, LNP-s, No Pre serve, 2-Dose Series ([employer]) 09/21/2020,05/22/2020 COVID-19, MRNA-LNP, 23-24, P F, 30 MCG/0.3 mL, 12 YRS AND ABOVE, IM ([employer]) 08/25/2023,01/07/2023 Covid-19, Mrna, Lnp-s, Pf, B ivalent, [...] No 08/20/2023 Does the household have a [facility] source of income? (Household - for [...] and were consensually agreed upon. Care Teams Aer[employer] Products Sales Engineer Relationship Specialty Start Date End Date Aviva Rossi DO [address] [place] [address] PCP - General Family Medicine 09/09/23 documented as of this encounter
--- OUTSIDE RECORDS SUMMARY | 2024-03-26 01:06 | External Medical Summary ---
Author Name Unknown Address Unknown Organization [id number]:[facility] - [address] [facility] [address] Laboratory Report Ordering Provider Test Date Status YARIEL BOURGEOIS 01/21/2024 11:44:36 Final <10,000 colonies/ml mixed no rmal wen Observation Date Value Abnormality Reference (Units ) Status Bacteria identified in Specimen by Culture 01/21/2024 11:44:36 [id number]^KLEBSIELL A PNEUMONIAE Abnormal Final >100,000 colonies/mL Klebsie lla pneumoniae Performing Location [facility] - [address] [facility] [address] Ordering Provider Test Date Status YARIEL BOURGEOIS 01/21/2024 11:44:36 Final Observation Date Value Abnormality Reference (Units ) Status Ampicillin + Sulbactam 01/21/2024 11:44:36 4 Susceptible Final Cefazolin 01/21/2024 11:44:36 <=4 Susceptible Final Cefepime susceptibility 01/21/2024 11:44:36 <=1 Susceptible Final Ceftriaxone suceptibility 01/21/2024 11:44:36 <=1 Susceptible Final Ciprofloxacin 01/21/2024 11:44:36 <=0.25 Susceptible Final Due to serious side effects, the FDA has advised against using Ciprofloxacin to treat uncomplicated UTIs and respiratory tract infections unless there are no alternative treatment options. Gentamicin susceptibility 01/21/2024 11:44:36 <=1 Susc eptible Final Nitrofurantoin susceptibility 01/21/2024 11:44:36 64 Intermediate Final Piperacillin + Tazobactamsusceptibility 01/21/2024 11:44:36 <=4 Susceptible Final TMP-SMZ susceptibility 01/21/2024 11:44:36 <=20 Suscept ible Final Test: Culture, Urine, Quanti tative
Specimen Source: Urine, Clean Catch
Specimen Type: Urine
Specimen Date: 01/21/2024 1144
Result Date: 01/23/2024 1208
Result Status: Final result
Abnormal: Yes
Resulting Lab: [facility]
[address]
[facility] [address]

CULTURE

>100,000 colonies/mL Klebsiella pneumoniae (Abnormal)

<10,000 colonies/ml mixed normal wen

SUSCEPTIBILITY

Klebsiella
pneumoniae
METHOD MICROBROTH DILUTIONS

AMPICILLIN/SULBACTAM [...] alternative treatment options.

null Performing Location LAB[facility]ATORY [facility] - [address] [facility] [address]
--- OUTSIDE RECORDS SUMMARY | 2024-03-26 01:06 | External Medical Summary | Summary of Care ---
Author Name Unknown Organization [facility] Address [address] [place] [address] Phone [phone] Care Team Providers Care Pot Fisher Name Role Phone BrianLucy rusttita Gonzales DO Primary Care Provider Reason for Visit * Reason Comments Urinary Tract Infection Symptoms Encounter Details Date Type Department Care Team (Latest Contact Info) Description 01/21/2024 10:45 AM EDT Convenient Care Visit [facility] [address] [place] [address] Gwendolyn Parada CRNP [address] [place] [address] Urinary tract infection without hematuria, [...] schedule 45 mL 3 11/27/2022 Active Pen [place] 06/06" 31G X 5 MM Use daily [...] then decrease to once per day- per [facility] discharge instructions Active Bumetanide 2 MG [...] 1999. Dx . Vocal cords. ENT in [facility]. Central serous retinopathy Major depression in [...] start lantus/novolog-refer MTM----, Psychiatrist. Sees Dr Sanders-Lawrence @[facility] [phone] Morbid obesity 12/26/2016 Overview: Per Obesity protocol #1 PMB (postmenopausal bleeding) 11/12/2013 Chronic cough 08/22/2023 Productive cough 08/22/2023 Overview: chronic Left knee injury 06/09/2023 Elevated WBC count 4 documented as of this encounter (statuses as of 01/21/2024) Immunizations Name Administration Dates Next Due COVID-19 mRNA, LNP-s, No Pre serve, 2-Dose Series ([employer]) 09/21/2020,05/22/2020 COVID-19, MRNA-LNP, 23-24, P F, [...] year old female that presents to the [facility] with dysuria and fatigue x 3 days. [...] retinopathy 03/24/1980 Chronic cough DM (diabetes mellitus) ([facility]) Elevated WBC count 80s Endometrial cancer ([facility]) Ex-smoker 09/03/2013 IBS (irritable bowel syndrome) Left knee injury meniscus tear, medial condyle fracutre Major depression in partial remission ([facility]) Microalbuminuric diabetic nephropathy ([facility]) 04/28/2014 Morbid obesity ([facility]) Myasthenia gravis ([facility]) Ocular migraine Productive cough chronic PSVT (paroxysmal supraventricular tachycardia) ([facility]) 80s due to albuterol, theophylline Pyelonephritis [address] [place] [address] Sleep apnea Sleep apnea, obstructive Stress incontinence Patient Active Problem List Diagnosis ADVANCE DIRECTIVE INFORMATION IBS (irritable bowel syndrome) Stress incontinence Type 2 diabetes mellitus with hemoglobin A1c goal of less than 8.0% ([facility]) Myasthenia gravis ([facility]) Central serous retinopathy Major depression in partial remission ([facility]) Ex-smoker Microalbuminuric diabetic nephropathy ([facility]) Other specified peripheral vascular diseases ([facility]) Diabetes mellitus with peripheral vascular disease ([facility]) Dyslipidemia 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 Care Teams Pot Fisher Relationship Specialty Start Date End Date Aviva Rossi DO [address] [place] [address] PCP - General Family Medicine 09/09/23 documented as of this encounter
[2024-03-26 01:36] LABS: Magnesium 2.2 mg/dl (1.7-2.4)
[2024-03-26 01:52] LABS: Thyroid Stimulating Hormone 2.489 uIu/ml (0.300-4.500)
[2024-03-26] MEDS: METOPROLOL TARTRATE 1 MG/ML VIAL IV STA (01:52)
--- NOTE | 2024-03-26 01:52 | History & Physical Report ---
Date of Service March 26, 2024 Assessment & Plan (1) Asymptomatic hypertensive urgency: Plan: Secondary to illness Patient currently off maintenance medications. Home beta-grady held months ago due to possible TBS Complicated UTI, no sepsis for now ARF on CKD secondary to illness chronic diastolic heart failure (EF 60 to 65% TTE 2023), equivocal volume status PAF, currently NSR on amiodarone, A-fib currently off anticoagulation secondary to bleeding history PSVT mild TR CATHERINE on CPAP DM 2 insulin requiring, well-controlled as recent hemoglobin A1c of 7.2 last September 2023 hypothyroidism, euthyroid as of today's TSH endometrial cancer status post surgery chronic anemia, hemoglobin stable ADHD, anxiety/mood disorder, at baseline past tobacco abuse Medical telemetry given episodic BP elevation Initiate amlodipine if with persistent BP elevation Monitor creatinine response to IV albumin given fluid retention Hold home diuretic until creatinine back to baseline Renal ultrasound if without improvement in kidney function Urine CS, ceftriaxone Basal insulin, ISS BG goal 1 10-1 40, carb count coverage PT OT eval DVT prophylaxis. Heparin subcu Full code Text document was generated using [employer] voice recognition software. It may contain grammatical or spelling errors. Kindly contact undersigned for clarification of any documentation item in question. History of Present Illness Chief Complaint: Progressive weakness Primary Care Provider: Aviva Rossi DO History obtained from patient and records. Medical history significant for chronic diastolic heart failure (EF 60 to 65% TTE 2023), A-fib/possible TBS currently not on anticoagulation secondary to bleeding history, PSVT, mild TR, hypertension, CATHERINE on CPAP DM 2 insulin requiring, hypothyroidism, ocular myasthenia gravis as per records, endometrial cancer status post surgery, IBS, chronic anemia (baseline hemoglobin of 11), CRI (baseline creatinine 1.2), ADHD, anxiety/mood disorder, morbid obesity, past tobacco abuse. Last confinement October 2023 for spontaneous right iliopsoas hematoma/retroperitoneal bleed presenting as right groin pain. Eliquis held on discharge. Patient discharged on amiodarone for A-fib control following confinement. Patient feeling ill the last few weeks. Denies headache, chest pain, SOB, abdominal or unusual flank pain. Increasing weakness fatigue, lightheadedness. Emesis without abdominal pain. Patient worried about a brewing UTI. No unusual weight gain. Denies unusual fluid retention. IV ceftriaxone administered at the ER. 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 Allergies Allergy/AdvReac Type Severity Reaction Status Date / Time penicillin G Allergy Intermediate HIVES Verified 03/26/24 01:14 codeine AdvReac Intermediate VOMITING Verified 03/26/24 01:14 hydrocodone AdvReac Intermediate Vomiting Verified 03/26/24 01:14 Home Medications Medication Instructions Recorded Confirmed Type atorvastatin 20 mg tablet 20 mg PO QAM #30 tabs 10/24/23 03/26/24 Rx bupropion HCl 100 mg tablet,12 hr 100 mg PO QAM #30 ea 10/24/23 03/26/24 Rx sustained-release bupropion HCl 150 mg tablet,12 hr 150 mg PO QAM #30 ea 10/24/23 03/26/24 Rx sustained-release cyanocobalamin (vitamin B-12) 1,000 mcg PO QAM #30 tabs 10/24/23 03/26/24 Rx 1,000 mcg tablet mirabegron 50 mg tablet,extended 50 mg PO QAM #30 tabs 10/24/23 03/26/24 Rx release 24 hr (Myrbetriq) albuterol sulfate 90 mcg/actuation 2 puff inhalation Q4 PRN cough/sob 03/26/24 03/26/24 History aerosol inhaler amiodarone 200 mg tablet 200 mg PO QPM 03/26/24 03/26/24 History benzonatate 100 mg capsule 100 mg PO TID PRN Cough 03/26/24 03/26/24 History bumetanide 2 mg tablet 2 mg PO QAM 03/26/24 03/26/24 History cholecalciferol (vitamin D3) 50 50 mcg PO QAM 03/26/24 03/26/24 History mcg (2,000 unit) tablet (Vitamin D3) famotidine 20 mg tablet (Pepcid) 20 mg PO AMPM 03/26/24 03/26/24 History fluoxetine 60 mg tablet 60 mg PO QPM 03/26/24 03/26/24 History fluticasone 250 mcg-salmeterol 50 1 ea inhalation QPM 03/26/24 03/26/24 History mcg/dose blistr powdr for inhalation insulin aspart U-100 100 unit/mL 0 unit subcut WM 03/26/24 03/26/24 History (3 mL) subcutaneous pen (Novolog FlexPen U-100 Insulin aspart) insulin degludec 100 21 unit subcut QPM 03/26/24 03/26/24 History unit-liraglutide 3.6 mg/mL(3 mL) subcutaneous pen (Xultophy 100/3.6) insulin glargine 100 unit/mL 4 unit subcut PM 03/26/24 03/26/24 History subcutaneous solution (Lantus U-100 Insulin) levothyroxine 50 mcg tablet 50 mcg PO DAILYBB 03/26/24 03/26/24 History ondansetron HCl 4 mg tablet 4 mg PO Q6 PRN Nausea And Vomiting 03/26/24 03/26/24 History polyethylene glycol 3350 17 gram 17 g PO DAILY PRN Constipation 03/26/24 03/26/24 History oral powder packet (Miralax) Past Med/Surg History Problem List (Updated 03/26/24 @ 09:50 by Pratik Manzano MD) Asymptomatic hypertensive urgency Acute kidney injury superimposed on chronic kidney disease (Acute) Acute UTI (urinary tract infection) (Acute) Acute exacerbation of CHF (congestive heart failure) (Acute) Atrial fibrillation with RVR Right groin pain (Acute) JOHN (acute kidney injury) (Acute) Hematoma of right iliopsoas muscle (Acute) UTI (urinary tract infection) (Acute) Paroxysmal atrial fibrillation Generalized weakness (Acute) Hyperlipidemia Hypertension Diabetes mellitus, type 2 dexcom intact Medical History Chronic cough 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, 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 Hypothyroidism Myasthenia gravis "EFFECTS ONLY MY VOCAL CORDS" Arthritis Stress incontinence in female GERD (gastroesophageal reflux disease) Hx of cancer of endometrium Idiopathic hypersomnia ADHD Depression Peripheral neuropathy Hx of migraines Irregular heart beats NO CARDS Hx of sleep apnea NO DEVICE Chronic obstructive pulmonary disease H/O Surgical History History of surgery lymph node removed from forehead (benign) Hx of cataract extraction right/left History of esophagogastroduodenoscopy (EGD) H/O colonoscopy with polypectomy H/O total hysterectomy History of tooth extraction Nausea and vomiting after administration of anesthetic agent Family History Other No family history of adverse response to anesthesia Social History Smoking Status: Former smoker Tobacco Type: Cigarettes Second Hand Exposure: Yes (as a small child); Do You Dip or Chew Tobacco: No; Hx Alcohol Use: Yes Alcohol type: wine Hx Substance Use: No Preferred Language: Latvian Communication Ability: Effective [employer] Cook Required: No Beliefs That Will Affect Care: None Current Living Situation: Alone Feels Safe at Home: Yes Assistive Devices: Cane Review of Systems Review of Systems: As per HPI, all other systems reviewed and negative Physical Exam Physical Exam: GENERAL: Comfortable, pleasant, morbidly obese, no respiratory distress SKIN: Normal color, warm HEENT: [place] palpebral conjunctivae, no ptosis, dry buccal mucosa NECK : Supple, short neck, no tenderness CHEST : Decreased breath sounds, no tenderness HEART : RRR, no obvious murmurs ABDOMEN: Some distention, nontender EXTREMITIES : Minimal LE swelling, no LE tenderness, no other conspicuous deformities noted NEUROLOGIC : Coherent, no facial asymmetry, gait and stance not assessed Results & Data Results & Data Vital Signs (Past 12 Hours) Vital Signs Temp Pulse Pulse Resp BP BP Pulse Ox 03/26/24 01:30 76 16 118/60 97 03/26/24 00:05 74 18 170/82 H 99 03/25/24 23:00 72 13 178/65 H 94 03/25/24 22:49 72 16 119/76 100 03/25/24 22:43 72 03/25/24 19:39 36.9 C 77 16 132/77 98 O2 Del Method 03/26/24 01:30 Room Air 03/26/24 00:05 Room Air 03/25/24 23:00 Room Air 03/25/24 22:49 Room Air 03/25/24 22:43 03/25/24 19:39 Room Air Laboratory Results Laboratory Results WBC 10.21 K/ul (4.8-10.8) 03/25/24 20:16 RBC 4.29 M/uL (4.20-5.40) 03/25/24 20:16 Hgb 12.0 g/dl (12.0-16.0) 03/25/24 20:16 Hct 37.1 % (37.0-47.0) 03/25/24 20:16 MCV 86.5 fL (80.0-100.0) 03/25/24 20:16 MCH 28.0 pg (25.0-34.0) 03/25/24 20:16 MCHC 32.3 g/dL (32.0-36.0) 03/25/24 20:16 RDW Std Deviation 42.3 fL (36.4-46.3) 03/25/24 20:16 RDW Coeff of Buck 13.5 % (11.5-14.5) 03/25/24 20:16 Plt Count 277 K/uL (130-400) 03/25/24 20:16 MPV 10.6 fL (9.4-12.4) 03/25/24 20:16 Immature Gran % (Auto) 0.3 % 03/25/24 20:16 Neut % (Auto) 82.3 % 03/25/24 20:16 Lymph % (Auto) 8.2 % 03/25/24 20:16 [place] % (Auto) 7.5 % 03/25/24 20:16 Eos % (Auto) 1.4 % 03/25/24 20:16 Baso % (Auto) 0.3 % 03/25/24 20:16 Neut # (Auto) 8.40 K/uL (1.40-6.50) H 03/25/24 20:16 Lymph # (Auto) 0.84 K/uL (1.20-3.40) L 03/25/24 20:16 [place] # (Auto) 0.77 K/uL (0.11-0.59) H 03/25/24 20:16 Eos # (Auto) 0.14 K/uL (0.00-0.50) 03/25/24 20:16 Baso # (Auto) 0.03 K/uL (0.00-0.20) 03/25/24 20:16 Immature Gran # (Auto) 0.03 K/uL (0.01-0.20) 03/25/24 20:16 Sodium 138 mmol/L (136-145) 03/25/24 20:16 Potassium 3.6 mmol/L (3.5-5.1) 03/25/24 20:16 Chloride 98 mmol/L (98-107) 03/25/24 20:16 Carbon Dioxide 33 mmol/L (21-32) H 03/25/24 20:16 Anion Gap 7 (3-11) 03/25/24 20:16 BUN 53 mg/dl (6-23) H 03/25/24 20:16 Creatinine 1.69 mg/dl (0.6-1.2) H 03/25/24 20:16 Est Cr Clr Drug Dosing Not Reportable 03/25/24 20:16 eGFR 32.09 03/25/24 20:16 BUN/Creatinine Ratio 31.4 (10-20) H 03/25/24 20:16 Glucose 130 mg/dl (70-99(Fasting)) H 03/25/24 20:16 Calcium 9.4 mg/dl (8.6-10.3) 03/25/24 20:16 Magnesium 2.2 mg/dl (1.7-2.4) 03/25/24 20:16 Total Bilirubin 0.8 mg/dl (0.2-1.0) 03/25/24 20:16 AST 30 U/L (13-39) 03/25/24 20:16 ALT 32 U/L (7-52) 03/25/24 20:16 Alkaline Phosphatase 53 U/L (34-104) 03/25/24 20:16 Troponin I High Sens 7.0 pg/ml (0-14) 03/25/24 20:16 Total Protein 7.5 gm/dl (6.0-8.3) 03/25/24 20:16 Albumin 4.1 gm/dl (3.4-5.0) 03/25/24 20:16 Globulin 3.4 gm/dl (2.5-4.0) 03/25/24 20:16 Albumin/Globulin Ratio 1.2 (0.9-2) 03/25/24 20:16 Urine Color Yellow 03/25/24 22:44 Urine Appearance Clear (Clear) 03/25/24 22:44 Urine pH 5.0 (4.5-7.5) 03/25/24 22:44 Ur Specific [place] 1.014 (1.000-1.030) 03/25/24 22:44 Urine Protein Trace (Negative) H 03/25/24 22:44 Urine Glucose (UA) Negative (Negative) 03/25/24:44 Urine Ketones Negative (Negative) 03/25/24:44 Urine Blood Negative (Negative) 03/25/24 22:44 Urine Nitrite Positive (Negative) A 03/25/24 22:44 Urine Bilirubin Negative (Negative) 03/25/24:44 Urine Urobilinogen Negative (Negative) 03/25/24:44 Ur Leukocyte Esterase 2+ (Negative) H 03/25/24 22:44 Urine WBC (Auto) 21-50 /hpf (0-5) H 03/25/24 22:44 Urine RBC (Auto) 0-2 /hpf (0-2) 03/25/24: U Hyaline Cast (Auto) 6-10 /lpf (0-2) H 03/25/24:44 U Epithel Cells (Auto) 3-5 /hpf (0-2) H 03/25/24 22:44 Urine Bacteria (Auto) 1+ (None Seen) H 03/25/24 22:44 Urine Mucus Present (None Prsent) A 03/25/24 22:44 Adenovirus (PCR) Not Detected (NotDetected) 03/25/24 20:16 B. pertussis DNA (PCR) Not Detected (NotDetected) 03/25/24 20:16 B.parapertussis DNA PCR Not Detected (NotDetected) 03/25/24 20:16 C. pneumoniae DNA (PCR) Not Detected (NotDetected) 03/25/24 20:16 Coronavirus OC43 (PCR) Not Detected (NotDetected) 03/25/24 20:16 Coronavirus HKU1 (PCR) Not Detected (NotDetected) 03/25/24 20:16 Coronavirus 229E (PCR) Not Detected (NotDetected) 03/25/24 20:16 SARS-CoV-2 (PCR) Not Detected (NotDetected) 03/25/24 20:16 Coronavirus NL63 (PCR) Not Detected (NotDetected) 03/25/24 20:16 Human Metapneumovir PCR Not Detected (NotDetected) 03/25/24 20:16 Influenza Type A (PCR) Not Detected (NotDetected) 03/25/24 20:16 Influenza Type B (PCR) Not Detected (NotDetected) 03/25/24 20:16 M. pneumoniae (PCR) Not Detected (NotDetected) 03/25/24 20:16 Parainfluenza 1 (PCR) Not Detected (NotDetected) 03/25/24 20:16 Parainfluenza 2 (PCR) Not Detected (NotDetected) 03/25/24 20:16 Parainfluenza 3 (PCR) Not Detected (NotDetected) 03/25/24 20:16 Parainfluenza 4 (PCR) Not Detected (NotDetected) 03/25/24 20:16 RSV (PCR) Not Detected (NotDetected) 03/25/24 20:16 Entero/Rhino (PCR) Not Detected (NotDetected) 03/25/24 20:16 Impressions Chest X-Ray 03/25/24 19:43 Exam(s): XR CXR 1 VIEW EXAM: XR Chest, 1 View CLINICAL HISTORY: Reason for exam: illness. TECHNIQUE: Frontal view of the chest. COMPARISON: Prior chest x-ray from September 04, 2023. FINDINGS: Lungs: Pulmonary vascular congestion with increased interstitial opacities. No consolidation. Pleural space: There is a small right pleural effusion. No pneumothorax. Heart: Mild cardiomegaly. Mediastinum: Unremarkable. Normal mediastinal contour. Bones/joints: Unremarkable. No acute fracture. IMPRESSION: Cardiomegaly with pulmonary vascular congestion and pulmonary edema with small right pleural effusion. Electronically signed by: Mague Beard MD 03/25/24 22:51 PM Diagnostic Findings EKG as per my interpretation :Rate 70, NSR, LAD, LAFB, incomplete RBBB, T wave flattening septal leads
[2024-03-26] MEDS ORDERED: traMADol HCL 50 MG TABLET PO PRN (01:59)
[2024-03-26] MEDS: ALBUMIN 25% 25 GM/100 ML VIAL IV ONE (02:07)
--- OUTSIDE RECORDS SUMMARY | 2024-03-26 02:37 | External Medical Summary | Summary of Care ---
Author Name Unknown Organization [facility] Address [address] [place] [address] Phone [phone] Care Team Providers Care Avionics Systems Integration Specialist Name Role Phone Aviva Rossi DO Primary Care Provider [phone] Encounter Details Date Type Department Care Team (Late st Contact Info) Description 03/25/2024 11:00 AM EST [facility] Visit [facility] [address] [place] [address] Jose Newell, RN [address] [place] [address] Allergies Active Allergy Reactions Criticality Noted Date Comments Codeine 11/20/2012 Nausea and vomiting Lisinopril 06/12/2015 ?cough Penicillin G 11/20/2012 Hives Hydrocodone-Acetaminophen 11/20/2012 Nausea and vomiting documented as of this encounter (statuses as of 03/25/2024) Medications Cyanocobalamin 1000 MCG Oral Tablet (Cyanocobalamin) [...] EDT 01/23/20 24 025 Active Pen [place] 06/06" 31G X 5 MM Use daily [...] as of this encounter (statuses as of 03/25/2024) Active Problems Problem Noted Date Diagnosed Date [...] as of this encounter (statuses as of 03/25/2024) Resolved Problems Problem Noted Date Diagnosed Date [...] lantus/novolog-refer MTM----, Psychiatrist. Sees Dr Witt [facility] [phone] Morbid obesity 12/26/2016 Overview: Per Obesity protocol #1 PMB (postmenopausal bleeding) 11/12/2013 Chronic cough 08/22/2023 Productive cough 08/22/2023 Overview (12/18/2012): chronic Left knee injury 06/09/2023 Elevated WBC count 4 documented as of this encounter (statuses as of 03/25/2024) Immunizations Name Administration Dates Next Due COVID-19 mRNA, LNP-s, No Pre serve, 2-Dose Series ([employer]) 09/21/2020,05/22/2020 COVID-19, MRNA-LNP, PF, 30 M CG/0.3 mL, 12 YRS AND ABOVE, IM ([employer]) 02/03/2024,08/25/2023,01/07/2023,09/06 Covid-19, Mrna, Lnp-s, Pf, B ivalent, 30 Mcg, IM, 12 yrs and above (Pfizer) 05/09/2022 Pneumococcal Conjugate Vacci ne, 20-valent ([id number]) 05/09/2022 Pneumococcal Polysaccharide PPV23 (Pneumovax) 07/09/2013 RSV [...] as of this encounter Progress Notes * Jose Newell, RN - 03/25/2024 12:26 PM EST Current Concerns: Situation: Pt seen today by [facility] manager packaging for return follow-up visit. Background: PMH includes: HTN, HLD, CATHERINE, DMtype 2, Hypothyroidism, depression, and B12 deficiency that presented to the ED with complaints of N/V, dizziness and palpitations. Assessment: Pt seen today for follow-up on BLE cellulitis and increased edema Pt finished Keflex 03/18/24 Upon this RN arriving pt stating "I feel very ill" Pt reports she has been vomiting 3-4 times per day x 3 days despite taking Zofran Pt reports increased weakness, fatigue, light headedness Pt reports vomiting has been occurring after pt has been standing or "doing things" Orthostatic BP taken: 116/68 sitting 106/62 standing Pt states that she believes she has a "stealth UTI" Pt denies pain, burning with urination Denies foul odor, hematuria, flank pain Pt reports she believes she could also be "Brewing something in the sinuses" Pt reports sinus pressure, post nasal drip, congestion- blowing clear mucus out of nose at time of visit Pt denies new cough, sore throat, headache BLE cellulitis appears to be resolved BLE are closed, cool to touch, pink/fleshtone in color, dry BLE free of open areas, free of drainage +2 pitting edema to BLE. R>L Pt has a zip up compression sleeve to LLE- pt asks this RN to put compression stocking on RLE This RN applied compression stocking to RLE Pt denies recent known sick contacts Pt temp 98.2F at time of visit Pt denies feeling that she has a fever, chills however reports that she has been taking APAP routinely Last dose of APAP approx 0800 today Pt states that she is getting to the point where she believes she will need to go to ED Pt does not have access to readily available transport for outpatient testing As this RN is reviewing systems with pt, pt plays song "It's beginning to look a lot like Sepsis" for this RN off of [employer] Pt then notes to this RN that song ends with "If you miss the clues you'll be sued for malpractice" Pt then continues to play song throughout visit with this RN, until this RN asked pt to turn music off so that this RN could auscultate heart, lung sounds, etc TT to pt PCP Dr Rossi with aforementioned, Dr Rossi out of office today- TT forwarded to [facility], could attempt to manage pt outpatient- however pt reports she cannot get rides for imaging to be completed and would prefer for inpatient management, per [facility] pt is to call 911 or find transport to ED Pt reports she already has ambulance bills "piling up", placed call to sister to ask for ride to ED, no answer, left Pt would like to wait awhile to see if sister responds before calling for EMS transport This RN placed call back to pt at [phone] to ensure transport to ED has been established- pt states that her sister is out of town in [place] and so she will have to call for EMS transport Pt reports that she has not called EMS yet because she accidentally fell asleep Readdressed with pt that there was opportunity for management from home however pt does not believehome management is feasible and prefers ED and inpatient management if deemed necessary Pt verbalizes understanding and states that she will call 911 for EMS transport Physical Exam: Physical Exam Constitutional: Appearance: She is obese. She is ill-appearing. HENT: Nose: Congestion present. Cardiovascular: Rate and Rhythm: Normal rate and [...] Review of Systems: Review of Systems Constitutional: Positive for fatigue. Negative for chills, diaphoresis and fever. HENT: Positive for congestion, postnasal drip, sinus pressure and sinus pain. Negative for rhinorrhea, sneezing and sore throat. Respiratory: Positive for cough. Negative for shortness of breath. Cardiovascular: Positive for leg swelling (+2 pitting to BLE, R>L). Gastrointestinal: Positive for vomiting. Genitourinary: Negative. Negative for dysuria, flank pain, frequency, hematuria, pelvic pain and urgency. Musculoskeletal: Positive for gait problem. Skin: Negative. Neurological: Positive for light-headedness. Negative for dizziness, syncope and headaches. Psychiatric/Behavioral: [...] gaps closed this contact: Education;Plan of Care (POC);Medications (03/25/241717) Type of education: Clinical/disease (03/25/241717) Type of medication care gap: Medication adherence (03/25/241717) Type of plan of care (POC) care gap: Education and review of exacerbation plan (03/25/241717) documented in this encounter Plan of Treatment Upcoming Encounters Date Type Department Care Team (Late st Contact Info) Description 04/14/2024 10:00 AM EST PulmDiagnostic Pulmonary Function Lab, [facility] [address] [place] [address] [address], [address] [place] [address] 04/21/2024 4:00 PM EST Home Visit [facility], [facility] [address] [facility] [place] [address] Jose Newell, RN [address] [facility] [place] [address] 05/18/2024 2:20 PM EST Office Visit Family Practice [address] [place] [address] [address] [place] [address] Aviva Rossi, DO [address] [place] [address] 05/26/2024 10:00 AM EST [facility] [address] [facility] [place] [address] Leslie Jean IV, MD [address] [place] [address] 06/30/2024 10:00 AM EDT [facility] [address] [facility] [place] [address] Shaw Hickey, DO [address] [facility] [address] Scheduled Procedures Name Priority Associated Diagnoses Date/Ti me COLONOSCOPY FLEXIBLE PROXIMA L DIAGNOSTIC Recall History of colonic polyps Health Maintenance Due Date Last Done Comments CKD PHOS USE SMARTSET 97703 1971 Cologuard 1998 Fecal Occult Blood Test [...] Additional history exists CKD HGB USE SMARTSET 60956 02/02/202502/02, 02/03/2024, 08/25/2023, Additional history exists TSH [...] and were consensually agreed upon. Care Teams Avionics Systems Integration Specialist Relationship Specialty Start Date End Date Aviva Rossi DO [address] [facility] [place] [address] PCP - General Family Medicine 09/09/23 documented as of this encounter
[2024-03-26] MEDS ORDERED: DEXTROSE 50% 50 ML SYRINGE IV PRN (02:42)
[2024-03-26] MEDS ORDERED: GLUCOSE 40% GEL 15 GM TUBE PO PRN (02:42)
[2024-03-26] MEDS ORDERED: GLUCAGON FOR INJ 1 MG VIAL SQ PRN (02:42)
[2024-03-26] MEDS ORDERED: GLUCOSE 10 TAB/TUBE PO PRN (02:42)
[2024-03-26] MEDS ORDERED: POLYETHYLENE (MIRALAX) 17 GM PACK PO PRN (02:42)
[2024-03-26] MEDS ORDERED: CARBOHYDRATES FOR HYPOGLYCEMIA PO PRN (02:42)
[2024-03-26] MEDS: INSULIN ASPART PER UNIT CHARGE SC SCH (04:25)
[2024-03-26 05:02] LABS: Basophils # (auto) 0.03 K/uL (0.00-0.20); Basophils % (auto) 0.3 %; Eosinophils # (auto) 0.15 K/uL (0.00-0.50); Eosinophils % (auto) 1.6 %; Hematocrit (blood only) 33.5 % (37.0-47.0); Hemoglobin 10.9 g/dl (12.0-16.0); Immature Granulocytes # (auto) 0.04 K/uL (0.01-0.20); Immature Granulocytes % (auto) 0.4 %; Lymphocytes # (auto) 0.97 K/uL (1.20-3.40); Lymphocytes % (auto) 10.1 %; Mean Corpuscular Hemoglobin 28.1 pg (25.0-34.0); Mean Corpuscular Hgb Conc 32.5 g/dL (32.0-36.0); Mean Corpuscular Volume 86.3 fL (80.0-100.0); Mean Platelet Volume 10.6 fL (9.4-12.4); Monocytes # (auto) 0.87 K/uL (0.11-0.59); Neutrophils # (auto) 7.59 K/uL (1.40-6.50); Neutrophils % (auto) 78.6 %; Platelet Count 242 K/uL (130-400); RDW Coefficient of Variation 13.6 % (11.5-14.5); RDW Standard Deviation 42.2 fL (36.4-46.3); Red Blood Count 3.88 M/uL (4.20-5.40); White Blood Count 9.65 K/ul (4.8-10.8)
[2024-03-26] MEDS: PROMETHAZINE 12.5 MG/50.5 ML BAG IV PRN (05:04)
[2024-03-26 05:19] LABS: BUN Creatinine Ratio 32.4 (10-20); Calcium 8.7 mg/dl (8.6-10.3); Creatinine Clr Calc Pharmacy 45.2 ml/min; Potassium 3.3 mmol/L (3.5-5.1)
[2024-03-26] MEDS: LEVOTHYROXINE SODIUM 50 MCG TABLET PO SCH (07:40)
[2024-03-26] MEDS: HEPARIN SOD 5,000 UNIT/0.5 ML VIAL SQ SCH (07:40)
[2024-03-26] MEDS: VIBEGRON 75 MG TAB PO SCH (08:29)
[2024-03-26] MEDS: FAMOTIDINE 20 MG TAB PO SCH (08:29)
[2024-03-26] MEDS: CYANOCOBALAMIN (B-12) 500 MCG TABLET PO SCH (08:29)
[2024-03-26] MEDS: ATORVASTATIN 20 MG TAB PO SCH (08:29)
[2024-03-26] MEDS: buPROPion SR 150 MG TABCR PO SCH (08:30)
[2024-03-26] MEDS: FLUTICASONE/VILANTEROL 200/25MCG 14 PUFFS/INHALER INH SCH (08:30)
[2024-03-26] MEDS: buPROPion SR 100 MG TABCR PO SCH (08:30)
[2024-03-26] MEDS: POTASSIUM CHLORIDE CRTAB 20 MEQ TABCR PO STA (08:37)
[2024-03-26] MEDS: ALBUMIN 25% 25 GM/100 ML VIAL IV SCH (09:30)
--- NOTE | 2024-03-26 13:26 | Electrocardiogram Report ---
Test Reason : Blood Pressure : */* mmHG Vent. Rate : 71 BPM Atrial Rate : 71 BPM P-R Int : 124 ms QRS Dur : 102 ms QT Int : 454 ms P-R-T Axes : -16 -4 29 degrees QTcB Int : 493 ms Normal sinus rhythm Low voltage QRS Borderline ECG When compared with ECG of 21-Oct-2023 09:48, QT has lengthened Confirmed by Antonino Kelly ([id number]) on 03/26/2024 1:26:13 PM Referred By: REFERRED SELF Confirmed By: Antonino Kelly
[2024-03-26] MEDS: AMIODARONE 200 MG TAB PO SCH (21:40)
[2024-03-26] MEDS: POLYETHYLENE (MIRALAX) 17 GM PACK PO SCH (21:41)
[2024-03-27] MEDS: cefTRIAXone SODIUM 2,000 MG/50 ML BAG IV SCH (00:52)
[2024-03-27] MEDS: FLUoxetine HCL 20 MG CAP PO SCH (00:52)
[2024-03-27 06:42] LABS: Hematocrit (blood only) 30.1 % (37.0-47.0); Hemoglobin 9.5 g/dl (12.0-16.0); Mean Corpuscular Hemoglobin 27.7 pg (25.0-34.0); Mean Corpuscular Hgb Conc 31.6 g/dL (32.0-36.0); Mean Corpuscular Volume 87.8 fL (80.0-100.0); Platelet Count 211 K/uL (130-400); RDW Coefficient of Variation 13.8 % (11.5-14.5); RDW Standard Deviation 44.4 fL (36.4-46.3); Red Blood Count 3.43 M/uL (4.20-5.40); White Blood Count 9.79 K/ul (4.8-10.8)
[2024-03-27 07:04] LABS: Albumin Globulin Ratio 1.6 (0.9-2); Albumin Level 4.2 gm/dl (3.4-5.0); BUN Creatinine Ratio 28.1 (10-20); Bilirubin,Total 0.7 mg/dl (0.2-1.0); Calcium 8.7 mg/dl (8.6-10.3); Creatinine Clr Calc Pharmacy 37.8 ml/min; Globulin 2.6 gm/dl (2.5-4.0); Magnesium 2.2 mg/dl (1.7-2.4); Phosphorus 3.1 mg/dl (2.5-4.9); Potassium 4.1 mmol/L (3.5-5.1); Total Protein 6.8 gm/dl (6.0-8.3)
--- NOTE | 2024-03-27 08:06 | Hospitalist Progress Note ---
Date of Service March 27, 2024 Assessment & Plan (1) Asymptomatic hypertensive urgency: Plan: Secondary to illness Patient currently off maintenance medications. Home beta-grady held months ago due to possible TBS Medical telemetry given episodic BP elevation Initiate amlodipine if with persistent BP elevation BP has been on lower side, cont. to monitor Complicated UTI ARF on CKD secondary to illness Monitor creatinine response to IV albumin given fluid retention Home diuretic on hold on admission Urine cultx pending cont. emp. ceftriaxone Renal ultrasound if without improvement in kidney function Cr 1.7 - nephrology consulted Chronic conditions: chronic diastolic heart failure (EF 60 to 65% TTE 2023), equivocal volume status PAF, currently NSR on amiodarone, A-fib currently off anticoagulation secondary to bleeding history PSVT mild TR CATHERINE on CPAP DM 2 insulin requiring, well-controlled as recent hemoglobin A1c of 7.2 last September 2023 , Basal insulin, ISS BG goal 110-140, carb count coverage hypothyroidism, euthyroid as of today's TSH endometrial cancer status post surgery chronic anemia, hemoglobin stable ADHD, anxiety/mood disorder, at baseline past tobacco abuse PT OT eval DVT prophylaxis. Heparin subcu Full code Admission and Anticipated Discharge Date Admission Date: March 26, 2024 Subjective Pt seen in follow up of UTI Pt is feeling overall much better, says she feels she has more energy No fever, chills, chest pain, shortness of breath at rest, no abd. pain, n/v Cr 1.7 today - discussed w/ nephrology, will cont. w/ lasix, repeat CXR, obtain echo. Concern for CHF Review of Systems Review of Systems: All systems reviewed & are unremarkable except as noted in Subjective Physical Exam Physical Exam: GENERAL: Comfortable, pleasant, morbidly obese, no respiratory distress SKIN: Normal color, warm HEENT: [place] palpebral conjunctivae NECK : Supple, short neck, no tenderness CHEST : Decreased breath sounds, no wheezing, no rhonchi HEART : RRR, no obvious murmurs ABDOMEN: Some distention, nontender EXTREMITIES : Minimal LE swelling, moves extremities NEUROLOGIC : Coherent, no facial asymmetry, answers appropriately, moves extremities Results & Data Results & Data Vital Signs (Past 12 Hours) Vital Signs Temp Pulse Pulse Pulse Resp BP Pulse Ox 03/27/24 07:40 36.8 C 79 16 127/68 90 03/27/24 07:24 70 03/27/24 03:26 36.7 C 71 18 108/62 92 03/27/24 00:53 111/67 03/26/24 23:39 03/26/24 23:34 36.6 C 65 18 111/67 99 03/26/24 23:21 68 03/26/24 21:43 72 18 124/60 95 03/26/24 20:05 68 O2 Del Method 03/27/24 07:40 Room Air 03/27/24 07:24 03/27/24 03:26 Room Air 03/27/24 00:53 03/26/24 23:39 Room Air 03/26/24 23:34 Room Air 03/26/24 23:21 03/26/24 21:43 Room Air 03/26/24 20:05 Laboratory Results 03/27/24 03/26/24 03/26/24 Range/Units 06:15 21:25 17:50 WBC 9.79 (4.8-10.8) K/ul RBC 3.43 L (4.20-5.40) M/uL Hgb 9.5 L (12.0-16.0) g/dl Hct 30.1 L (37.0-47.0) % MCV 87.8 (80.0-100.0) fL MCH 27.7 (25.0-34.0) pg MCHC 31.6 L (32.0-36.0) g/dL RDW Std Deviation 44.4 (36.4-46.3) fL RDW Coeff of Buck 13.8 (11.5-14.5) % Plt Count 211 (130-400) K/uL MPV 11.0 (9.4-12.4) fL Sodium 139 (136-145) mmol/L Potassium 4.1 D (3.5-5.1) mmol/L Chloride 101 (98-107) mmol/L Carbon Dioxide 31 (21-32) mmol/L Anion Gap 7 (3-11) BUN 48 H (6-23) mg/dl Creatinine 1.71 H (0.6-1.2) mg/dl Est Cr Clr Drug Dosing 37.8 ml/min eGFR 31.64 BUN/Creatinine Ratio 28.1 H (10-20) Glucose 153 H (70-99(Fasting)) mg/dl POC Glucose 147 H 118 H (70-99) mg/dl Calcium 8.7 (8.6-10.3) mg/dl Phosphorus 3.1 (2.5-4.9) mg/dl Magnesium 2.2 (1.7-2.4) mg/dl Total Bilirubin 0.7 (0.2-1.0) mg/dl AST 19 (13-39) U/L ALT 20 (7-52) U/L Alkaline Phosphatase 35 (34-104) U/L Total Protein 6.8 (6.0-8.3) gm/dl Albumin 4.2 (3.4-5.0) gm/dl Globulin 2.6 (2.5-4.0) gm/dl Albumin/Globulin Ratio 1.6 (0.9-2) 03/26/24 03/26/24 Range/Units 13:10 08:34 WBC (4.8-10.8) K/ul RBC (4.20-5.40) M/uL Hgb (12.0-16.0) g/dl Hct (37.0-47.0) % MCV (80.0-100.0) fL MCH (25.0-34.0) pg MCHC (32.0-36.0) g/dL RDW Std Deviation (36.4-46.3) fL RDW Coeff of Buck (11.5-14.5) % Plt Count (130-400) K/uL MPV (9.4-12.4) fL Sodium (136-145) mmol/L Potassium (3.5-5.1) mmol/L Chloride (98-107) mmol/L Carbon Dioxide (21-32) mmol/L Anion Gap (3-11) BUN (6-23) mg/dl Creatinine (0.6-1.2) mg/dl Est Cr Clr Drug Dosing ml/min eGFR BUN/Creatinine Ratio (10-20) Glucose (70-99(Fasting)) mg/dl POC Glucose 118 H 101 H (70-99) mg/dl Calcium (8.6-10.3) mg/dl Phosphorus (2.5-4.9) mg/dl Magnesium (1.7-2.4) mg/dl Total Bilirubin (0.2-1.0) mg/dl AST (13-39) U/L ALT (7-52) U/L Alkaline Phosphatase (34-104) U/L Total Protein (6.0-8.3) gm/dl Albumin (3.4-5.0) gm/dl Globulin (2.5-4.0) gm/dl Albumin/Globulin Ratio (0.9-2) Medications Administered Current Inpatient Medications Acetaminophen (Acetaminophen 325 Mg Tab) 650 mg PO QID PRN PRN Reason: pain/fever Stop: 04/25/24 01:58 Amiodarone HCl (Amiodarone 200 Mg Tab) 200 mg PO QPM [facility] Stop: 04/25/24 20:59 Last Admin: 03/26/24 21:40 Dose: 200 mg Atorvastatin Calcium (Atorvastatin 20 Mg Tab) 20 mg PO QAM [facility] Stop: 04/25/24 08:59 Last Admin: 03/26/24 08:29 Dose: 20 mg Bupropion HCl (Bupropion Sr 150 Mg Tabcr) 150 mg PO QAM [facility] Stop: 04/25/24 08:59 Last Admin: 03/26/24 08:30 Dose: 150 mg Bupropion HCl (Bupropion Sr 100 Mg Tabcr) 100 mg PO QAM [facility] Stop: 04/25/24 08:59 Last Admin: 03/26/24 08:30 Dose: 100 mg Cyanocobalamin (Cyanocobalamin (B-12) 500 Mcg Tablet) 1,000 mcg PO QAM [facility] Stop: 04/25/24 08:59 Last Admin: 03/26/24 08:29 Dose: 1,000 mcg Dextrose (Dextrose 50% 50 Ml Syringe) 25 - 50 ml IV UD PRN; Protocol PRN Reason: Hypoglycemia Protocol Stop: 04/25/24 02:41 Famotidine (Famotidine 20 Mg Tab) 20 mg PO BID [facility] Stop: 04/25/24 08:59 Last Admin: 03/26/24 21:40 Dose: 20 mg Fluoxetine HCl (Fluoxetine Hcl 20 Mg Cap) 60 mg PO QPM [facility] Stop: 04/25/24 20:59 Last Admin: 03/27/24 00:52 Dose: 60 mg Fluticasone/Vilanterol (Fluticasone/Vilanterol 200/25mcg 14 Puffs/Inhaler) 1 puffs INH DAILY [facility] Stop: 04/25/24 08:59 Last Admin: 03/26/24 08:30 Dose: 1 puffs Glucagon (Glucagon For Inj 1 Mg Vial) 1 mg SQ UD PRN; Protocol PRN Reason: Hypoglycemia Protocol Stop: 04/25/24 02:41 Glucose (Glucose 40% Gel 15 Gm Tube) 15 - 30 gm PO UD PRN; Protocol PRN Reason: Hypoglycemia Protocol Stop: 04/25/24 02:41 Glucose (Glucose 10 Tab/Tube) 4 - 8 tab PO UD PRN; Protocol PRN Reason: Hypoglycemia Protocol Stop: 04/25/24 02:41 Heparin Sodium (Porcine) (Heparin Sod 5,000 Unit/0.5 Ml Vial) 5,000 units SQ Q8 [facility] Stop: 04/25/24 05:59 Last Admin: 03/27/24 05:44 Dose: 5,000 units Ceftriaxone Sodium (Rocephin) 2,000 mg in 50 mls @ 100 mls/hr IV Q24H [facility] Stop: 04/06/24 00:00 Last Infusion: 03/27/24 01:32 Dose: Infused Promethazine HCl (Phenergan) 12.5 mg in 50.5 mls @ 202 mls/hr IV Q6H PRN PRN Reason: Nausea And Vomiting Stop: 04/25/24 01:58 Last Infusion: 03/26/24 07:00 Dose: Infused Albumin Human (Albumin 25%) 25 gm in 100 mls @ 50 mls/hr IV Q8H [facility] Stop: 03/29/24 09:59 Last Infusion: 03/27/24 03:51 Dose: Infused Insulin Aspart (Insulin Aspart Per Unit Charge) 0 units SC ACHS [facility] Stop: 04/25/24 02:41 Last Admin: 03/26/24 21:38 Dose: 1 units Levothyroxine Sodium (Levothyroxine Sodium 50 Mcg Tablet) 50 mcg PO DAILYBB [facility] Stop: 04/25/24 06:29 Last Admin: 03/27/24 05:46 Dose: 50 mcg Miscellaneous (Carbohydrates For Hypoglycemia ) 15 - 30 gm PO UD PRN PRN Reason: Hypoglycemia Protocol Stop: 04/25/24 02:41 Polyethylene Glycol (Polyethylene (Miralax) 17 Gm Pack) 17 gm PO BID [facility] Stop: 04/25/24 20:59 Last Admin: 03/26/24 21:41 Dose: 17 gm Tramadol HCl (Tramadol Hcl 50 Mg Tablet) 25 - 50 mg PO Q4H PRN PRN Reason: Pain Stop: 04/25/24 01:58 Vibegron (Vibegron 75 Mg Tab) 75 mg PO [facility] Stop: 04/25/24 08:59 Last Admin: 03/26/24 08:29 Dose: 75 mg
--- NOTE | 2024-03-27 12:30 | Nephrology Consultation ---
Date of Consultation March 27, 2024 Assessment & Plan (1) Acute kidney injury superimposed on chronic kidney disease: Baseline creat 1.3 and now is 1.7 but not risng. was 1.7 also 2 days ago. JOHN in the setting of CHF, ? UTI maybe hypoxia ( as not using CPAP) causing renal tubular hypoxia. Hard to assess fluid status given obesity but she feels she is retaining and has edema and also CXR showing CHF. urine sediment was active with lots of hyaline casts so could have been milder case of renal tubular hypoxia causing early stage ATN. Will give lasix 40 iv bid. Daily CBC and renal panel. reviewed her current med list and are acceptable for JOHN. f/u UTI --pending final report. (2) Acute exacerbation of CHF (congestive heart failure): CXR dies show CHF. She normally gets Bumex at home currently on hold. Will recommend to restart Diuretics. use lasix 40 iv bid starting now. Check BNP and CXR tomorrow. Consider new ECHO on Friday. was not using CPAP at home. Advised her to get from Home as she does not like the hospital one. (3) Acute UTI (urinary tract infection): FInal report pending but she is getting ABx Plan time spent 61 mins. Discussed with primary team. History of Present Illness Reason for Consultation: JOHN and CHF Attending Physician: Woo Jean Baptiste MD History of Present Illness 69/F with CKD stage 3 baseline creat 1.3, chronic diastolic heart failure (EF 60 to 65% TTE 2023), A-fib/possible TBS currently not on anticoagulation secondary to bleeding history, PSVT, mild TR, hypertension, CATHERINE on CPAP ( but does not use) DM 2 insulin requiring, hypothyroidism, ocular myasthenia gravis as per records, endometrial cancer status post surgery, IBS, chronic anemia (baseline hemoglobin of 11), ADHD, anxiety/mood disorder, morbid obesity, past tobacco abuse. came to hospital with Weakness and Increasing edema and feeling ill. CXR done admission 03/25 showed CHF. Creat is up a bit to 1.7 but not rising rapidly and Not getting her home bumex. had some Albumin also. Last Admitted October 2023 for spontaneous right iliopsoas hematoma/retroperitoneal bleed presenting as right groin pain. Eliquis held on discharge. Patient discharged on amiodarone for A-fib control following confinement. does not feel the Bumex is making her urinate much. Also has not been using her CPAP at home. ROS---- Denies headache, chest pain, abdominal or unusual flank pain. Physical Exam Physical Exam: GENERAL: Comfortable, pleasant, morbidly obese, no respiratory distress SKIN: Normal color, warm HEENT: [place] palpebral conjunctivae, dry buccal mucosa NECK : Supple, short neck, no tenderness CHEST : Decreased breath sounds, no tenderness HEART : RRR, no obvious murmurs ABDOMEN: Some distention, nontender EXTREMITIES : 1+ edema with Chronic skin changes NEUROLOGIC : Coherent, no facial asymmetry, gait and stance not assessed Allergies Allergy/AdvReac Type Severity Reaction Status Date / Time penicillin G Allergy Intermediate HIVES Verified 03/26/24 01:14 codeine AdvReac Intermediate VOMITING Verified 03/26/24 01:14 hydrocodone AdvReac Intermediate Vomiting Verified 03/26/24 01:14 Home Medications Medication Instructions Recorded Confirmed Type atorvastatin 20 mg tablet 20 mg PO QAM #30 tabs 10/24/23 03/26/24 Rx bupropion HCl 100 mg tablet,12 hr 100 mg PO QAM #30 ea 10/24/23 03/26/24 Rx sustained-release bupropion HCl 150 mg tablet,12 hr 150 mg PO QAM #30 ea 10/24/23 03/26/24 Rx sustained-release cyanocobalamin (vitamin B-12) 1,000 mcg PO QAM #30 tabs 10/24/23 03/26/24 Rx 1,000 mcg tablet mirabegron 50 mg tablet,extended 50 mg PO QAM #30 tabs 10/24/23 03/26/24 Rx release 24 hr (Myrbetriq) albuterol sulfate 90 mcg/actuation 2 puff inhalation Q4 PRN cough/sob 03/26/24 03/26/24 History aerosol inhaler amiodarone 200 mg tablet 200 mg PO QPM 03/26/24 03/26/24 History benzonatate 100 mg capsule 100 mg PO TID PRN Cough 03/26/24 03/26/24 History bumetanide 2 mg tablet 2 mg PO QAM 03/26/24 03/26/24 History cholecalciferol (vitamin D3) 50 50 mcg PO QAM 03/26/24 03/26/24 History mcg (2,000 unit) tablet (Vitamin D3) famotidine 20 mg tablet (Pepcid) 20 mg PO AMPM 03/26/24 03/26/24 History fluoxetine 60 mg tablet 60 mg PO QPM 03/26/24 03/26/24 History fluticasone 250 mcg-salmeterol 50 1 ea inhalation QPM 03/26/24 03/26/24 History mcg/dose blistr powdr for inhalation insulin aspart U-100 100 unit/mL 0 unit subcut WM 03/26/24 03/26/24 History (3 mL) subcutaneous pen (Novolog FlexPen U-100 Insulin aspart) insulin degludec 100 21 unit subcut QPM 03/26/24 03/26/24 History unit-liraglutide 3.6 mg/mL(3 mL) subcutaneous pen (Xultophy 100/3.6) insulin glargine 100 unit/mL 4 unit subcut PM 03/26/24 03/26/24 History subcutaneous solution (Lantus U-100 Insulin) levothyroxine 50 mcg tablet 50 mcg PO DAILYBB 03/26/24 03/26/24 History ondansetron HCl 4 mg tablet 4 mg PO Q6 PRN Nausea And Vomiting 03/26/24 03/26/24 History polyethylene glycol 3350 17 gram 17 g PO DAILY PRN Constipation 03/26/24 03/26/24 History oral powder packet (Miralax) Patient History Medical History Anemia Chronic cough 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, 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 Hypothyroidism Myasthenia gravis "EFFECTS ONLY MY VOCAL CORDS" Arthritis Stress incontinence in female GERD (gastroesophageal reflux disease) Hx of cancer of endometrium Idiopathic hypersomnia ADHD Peripheral neuropathy Hx of migraines Irregular heart beats NO CARDS Hx of sleep apnea NO DEVICE Chronic obstructive pulmonary disease H/O Surgical History History of surgery lymph node removed from forehead (benign) Hx of cataract extraction right/left History of esophagogastroduodenoscopy (EGD) H/O colonoscopy with polypectomy H/O total hysterectomy History of tooth extraction Nausea and vomiting after administration of anesthetic agent Family History Other No family history of adverse response to anesthesia Social History Smoking Status: Former smoker Tobacco Type: Cigarettes Smoking End Date: 1990; Second Hand Exposure: No; Do You Dip or Chew Tobacco: No; Tobacco Cessation Education Requested by Patient: No Hx Alcohol Use: Yes Alcohol type: wine Hx Substance Use: No Preferred Language: [place] Communication Ability: Effective 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 Beliefs That Will Affect Care: None Current Living Situation: Alone Other Information That Helps Us Care for You: No Feels Safe at Home: Yes Safety Concerns: Feels Safe At This Time Assistive Devices: Cane and CPAP Results & Data Vital Signs (Past 12 Hours) Vital Signs Temp Pulse Pulse Pulse Resp BP Pulse Ox 03/27/24 11:30 36.7 C 67 16 118/61 91 03/27/24 07:40 36.8 C 79 16 127/68 90 03/27/24 07:24 70 03/27/24 03:26 36.7 C 71 18 108/62 92 03/27/24 00:53 111/67 O2 Del Method 03/27/24 11:30 Room Air 03/27/24 07:40 Room Air 03/27/24 07:24 03/27/24 03:26 Room Air 03/27/24 00:53 Laboratory Results reviewed Diagnostic Findings CXR--Shows CHF
[2024-03-27] MEDS: FUROSEMIDE 40 MG/4 ML VIAL IV SCH (14:03)
[2024-03-27] MEDS: NYSTATIN POWDER 15GM BTL EXT PRN (21:09)
--- NOTE | 2024-03-28 01:59 | Ultrasound Report ---
Exam(s): US RENAL EXAM: US Retroperitoneal Limited, Renal CLINICAL HISTORY: JOHN. TECHNIQUE: Real-time limited ultrasound of the retroperitoneum with image documentation. COMPARISON: CT abdomen 10/12/2023 FINDINGS: Right kidney: 10.9 cm length. No stones. No solid mass. No hydronephrosis. Left kidney: 10.3 cm length. No stones. No solid mass. No hydronephrosis. Urinary bladder: Ureteral jets not visualized. IMPRESSION: No evidence for obstructive uropathy. Ureteral jets not identified although no evidence for hydronephrosis. Electronically signed by: Mannie Taylor M.D. 03/28/24 01:59 AM
[2024-03-28 06:26] LABS: Hematocrit (blood only) 32.6 % (37.0-47.0); Hemoglobin 10.2 g/dl (12.0-16.0); Mean Corpuscular Hemoglobin 27.6 pg (25.0-34.0); Mean Corpuscular Hgb Conc 31.3 g/dL (32.0-36.0); Mean Corpuscular Volume 88.3 fL (80.0-100.0); Mean Platelet Volume 11.1 fL (9.4-12.4); Platelet Count 233 K/uL (130-400); RDW Coefficient of Variation 13.7 % (11.5-14.5); RDW Standard Deviation 44.1 fL (36.4-46.3); Red Blood Count 3.69 M/uL (4.20-5.40); White Blood Count 11.59 K/ul (4.8-10.8)
[2024-03-28 06:55] LABS: Calcium 8.8 mg/dl (8.6-10.3)
[2024-03-28 07:00] LABS: BUN Creatinine Ratio 32.7 (10-20); Creatinine Clr Calc Pharmacy 42.3 ml/min; Phosphorus 2.5 mg/dl (2.5-4.9)
[2024-03-28] MEDS: ONDANSETRON 2 MG OD TAB PO PRN (08:13)
--- NOTE | 2024-03-28 09:37 | XRay Report ---
XR chest 2V PA/lateral CLINICAL HISTORY: f/u CHF COMPARISON STUDY: Chest radiograph March 25, 2024. FINDINGS: Lung volumes are normal. Lungs are clear. There is no pneumothorax or pleural effusion. Sta ble cardiomegaly. Mediastinal contours are normal. Pulmonary edema has improved. IMPRESSION: Resolution of pulmonary edema. No acute findings. ACT 112: Negative or not required by law. Electronically signed by: Ronald Jeff M.D. 03/28/2024 9:36 AM
--- NOTE | 2024-03-28 09:45 | Hospitalist Progress Note ---
Date of Service March 28, 2024 Assessment & Plan (1) Asymptomatic hypertensive urgency: Plan: Secondary to illness Patient currently off maintenance medications. Home beta-grady held months ago due to possible TBS Medical telemetry given episodic BP elevation Initiate amlodipine if with persistent BP elevation BP has been on lower side, cont. to monitor Complicated UTI ARF on CKD secondary to illness Initially received IV albumin on admission given fluid retention, BP low Home diuretic on hold on admission Urine cultx - positive for Citrobacter resistant to ceftriaxone -> switch abx to cefepime Renal ultrasound - IMPRESSION: No evidence for obstructive uropathy. Ureteral jets not identified although no evidence for hydronephrosis. Cr 1.7 - nephrology consulted, appreciate their input - concern for poss. CHF -repeat CXR - negat. for pulm. vasc. congestion BNP elevated Echo - mild concentric LVH, EF 55-60%, No regional wall motion abnormalities, pulmonary artery syst. pressure 44 mm Hg. Diastolic dysfunction, grade II Cr 1.5 today Chronic conditions: chronic diastolic heart failure (EF 60 to 65% TTE 2023), equivocal volume status PAF, currently NSR on amiodarone, A-fib currently off anticoagulation secondary to bleeding history PSVT mild TR CATHERINE on CPAP DM 2 insulin requiring, well-controlled as recent hemoglobin A1c of 7.2 last September 2023 , Basal insulin, ISS BG goal 110-140, carb count coverage hypothyroidism, euthyroid as of today's TSH endometrial cancer status post surgery chronic anemia, hemoglobin stable ADHD, anxiety/mood disorder, at baseline past tobacco abuse PT OT eval DVT prophylaxis. Heparin subcu Full code Admission and Anticipated Discharge Date Admission Date: March 26, 2024 Subjective Pt seen in follow up of UTI + dysuria Pt is feeling overall much better No fever, chills, chest pain, shortness of breath at rest, no abd. pain, n/v JOHN - nephrology consulted Ucultx posit. for Citrobacter, resistant to ceftriaxone, abx changed Review of Systems Review of Systems: All systems reviewed & are unremarkable except as noted in Subjective Physical Exam Physical Exam: GENERAL: Comfortable, pleasant, morbidly obese, no respiratory distress SKIN: Normal color, warm HEENT: [place]/AT, [place] palpebral conjunctivae NECK : Supple, short neck CHEST : Decreased breath sounds, no wheezing, no rhonchi HEART : RRR, no obvious murmurs ABDOMEN: Some distention, nontender EXTREMITIES : Minimal LE swelling, moves extremities NEUROLOGIC : Coherent, no facial asymmetry, answers appropriately, moves extremities Results & Data Results & Data Vital Signs (Past 12 Hours) Vital Signs Temp Pulse Pulse Resp BP Pulse Ox O2 Del Method 03/28/24 07:34 36.8 C 68 16 121/62 94 Room Air 03/28/24 07:19 71 03/27/24 23:41 36.5 C 71 18 118/68 95 Room Air 03/27/24 21:46 71 Laboratory Results 03/28/24 03/28/24 03/27/24 Range/Units 08:09 05:43 20:16 WBC 11.59 H (4.8-10.8) K/ul RBC 3.69 L (4.20-5.40) M/uL Hgb 10.2 L (12.0-16.0) g/dl Hct 32.6 L (37.0-47.0) % MCV 88.3 (80.0-100.0) fL MCH 27.6 (25.0-34.0) pg MCHC 31.3 L (32.0-36.0) g/dL RDW Std Deviation 44.1 (36.4-46.3) fL RDW Coeff of Buck 13.7 (11.5-14.5) % Plt Count 233 (130-400) K/uL MPV 11.1 (9.4-12.4) fL Sodium 137 (136-145) mmol/L Potassium 4.0 (3.5-5.1) mmol/L Chloride 98 (98-107) mmol/L Carbon Dioxide 31 (21-32) mmol/L Anion Gap 8 (3-11) BUN 50 H (6-23) mg/dl Creatinine 1.53 H (0.6-1.2) mg/dl Est Cr Clr Drug Dosing 42.3 ml/min eGFR 36.16 BUN/Creatinine Ratio 32.7 H (10-20) Glucose 172 H (70-99(Fasting)) mg/dl POC Glucose 178 H 157 H (70-99) mg/dl Calcium 8.8 (8.6-10.3) mg/dl Phosphorus 2.5 (2.5-4.9) mg/dl Magnesium 2.0 (1.7-2.4) mg/dl B-Natriuretic Peptide 357 H (0-100) pg/ml 03/27/24 03/27/24 Range/Units 17:05 12:08 WBC (4.8-10.8) K/ul RBC (4.20-5.40) M/uL Hgb (12.0-16.0) g/dl Hct (37.0-47.0) % MCV (80.0-100.0) fL MCH (25.0-34.0) pg MCHC (32.0-36.0) g/dL RDW Std Deviation (36.4-46.3) fL RDW Coeff of Buck (11.5-14.5) % Plt Count (130-400) K/uL MPV (9.4-12.4) fL Sodium (136-145) mmol/L Potassium (3.5-5.1) mmol/L Chloride (98-107) mmol/L Carbon Dioxide (21-32) mmol/L Anion Gap (3-11) BUN (6-23) mg/dl Creatinine (0.6-1.2) mg/dl Est Cr Clr Drug Dosing ml/min eGFR BUN/Creatinine Ratio (10-20) Glucose (70-99(Fasting)) mg/dl POC Glucose 168 H 160 H (70-99) mg/dl Calcium (8.6-10.3) mg/dl Phosphorus (2.5-4.9) mg/dl Magnesium (1.7-2.4) mg/dl B-Natriuretic Peptide (0-100) pg/ml Medications Administered Current Inpatient Medications Acetaminophen (Acetaminophen 325 Mg Tab) 650 mg PO QID PRN PRN Reason: pain/fever Stop: 04/25/24 01:58 Amiodarone HCl (Amiodarone 200 Mg Tab) 200 mg PO QPM [facility] Stop: 04/25/24 20:59 Last Admin: 03/27/24 21:09 Dose: 200 mg Atorvastatin Calcium (Atorvastatin 20 Mg Tab) 20 mg PO QAM [facility] Stop: 04/25/24 08:59 Last Admin: 03/28/24 07:52 Dose: Not Given Bupropion HCl (Bupropion Sr 150 Mg Tabcr) 150 mg PO QAM [facility] Stop: 04/25/24 08:59 Last Admin: 03/28/24 07:53 Dose: Not Given Bupropion HCl (Bupropion Sr 100 Mg Tabcr) 100 mg PO QAM [facility] Stop: 04/25/24 08:59 Last Admin: 03/28/24 07:54 Dose: Not Given Cyanocobalamin (Cyanocobalamin (B-12) 500 Mcg Tablet) 1,000 mcg PO QAM [facility] Stop: 04/25/24 08:59 Last Admin: 03/28/24 07:54 Dose: Not Given Dextrose (Dextrose 50% 50 Ml Syringe) 25 - 50 ml IV UD PRN; Protocol PRN Reason: Hypoglycemia Protocol Stop: 04/25/24 02:41 Famotidine (Famotidine 20 Mg Tab) 20 mg PO BID [facility] Stop: 04/25/24 08:59 Last Admin: 03/28/24 07:56 Dose: 20 mg Fluoxetine HCl (Fluoxetine Hcl 20 Mg Cap) 60 mg PO QPM [facility] Stop: 04/25/24 20:59 Last Admin: 03/27/24 07:57 Dose: 60 mg Fluticasone/Vilanterol (Fluticasone/Vilanterol 200/25mcg 14 Puffs/Inhaler) 1 puffs INH DAILY [facility] Stop: 04/25/24 08:59 Last Admin: 03/28/24 07:54 Dose: Not Given Furosemide (Furosemide 40 Mg/4 Ml Vial) 40 mg IV BID [facility] Stop: 04/26/24 12:29 Last Admin: 03/28/24 07:56 Dose: 40 mg Glucagon (Glucagon For Inj 1 Mg Vial) 1 mg SQ UD PRN; Protocol PRN Reason: Hypoglycemia Protocol Stop: 04/25/24 02:41 Glucose (Glucose 40% Gel 15 Gm Tube) 15 - 30 gm PO UD PRN; Protocol PRN Reason: Hypoglycemia Protocol Stop: 04/25/24 02:41 Glucose (Glucose 10 Tab/Tube) 4 - 8 tab PO UD PRN; Protocol PRN Reason: Hypoglycemia Protocol Stop: 04/25/24 02:41 Heparin Sodium (Porcine) (Heparin Sod 5,000 Unit/0.5 Ml Vial) 5,000 units SQ Q8 [facility] Stop: 04/25/24 05:59 Last Admin: 03/28/24 05:55 Dose: 5,000 units Promethazine HCl (Phenergan) 12.5 mg in 50.5 mls @ 202 mls/hr IV Q6H PRN PRN Reason: Nausea And Vomiting Stop: 04/25/24 01:58 Last Infusion: 03/26/24 07:00 Dose: Infused Cefepime HCl (Maxipime 2000mg) 2,000 mg in 20 mls @ 5 mls/min IV Q8H [facility]; Protocol Stop: 04/02/24 09:59 Insulin Aspart (Insulin Aspart Per Unit Charge) 0 units SC ACHS [facility] Stop: 04/25/24 02:41 Last Admin: 03/27/24 21:05 Dose: 1 units Levothyroxine Sodium (Levothyroxine Sodium 50 Mcg Tablet) 50 mcg PO DAILYBB [facility] Stop: 04/25/24 06:29 Last Admin: 03/28/24 05:55 Dose: 50 mcg Miscellaneous (Carbohydrates For Hypoglycemia ) 15 - 30 gm PO UD PRN PRN Reason: Hypoglycemia Protocol Stop: 04/25/24 02:41 Nystatin (Nystatin Powder 15gm Btl) 1 appln EXT Q4 PRN PRN Reason: Affected Skin Folds Stop: 04/26/24 17:18 Last Admin: 03/27/24 21:09 Dose: 1 appln Ondansetron HCl (Ondansetron 2 Mg Od Tab) 2 mg PO Q6H PRN PRN Reason: Nausea Stop: 04/26/24 10:37 Last Admin: 03/28/24 08:13 Dose: 2 mg Polyethylene Glycol (Polyethylene (Miralax) 17 Gm Pack) 17 gm PO BID [facility] Stop: 04/25/24 20:59 Last Admin: 03/28/24 07:54 Dose: Not Given Tramadol HCl (Tramadol Hcl 50 Mg Tablet) 25 - 50 mg PO Q4H PRN PRN Reason: Pain Stop: 04/25/24 01:58 Vibegron (Vibegron 75 Mg Tab) 75 mg PO QAM [facility] Stop: 04/25/24 08:59 Last Admin: 03/28/24 07:56 Dose: 75 mg
[2024-03-28] MEDS: CEFEPIME 2000MG 2,000 MG/20 ML SYR IV SCH ×2 (10:48→23:11)
--- NOTE | 2024-03-28 15:39 | Nephrology Progress Note ---
Date of Service March 28, 2024 Assessment & Plan Admission and Anticipated Discharge Date Admission Date: March 26, 2024 Subjective Assessment & Plan (1) Acute kidney injury superimposed on chronic kidney disease: Baseline creat 1.3 and now is 1.7 but not risng. was 1.7 also 2 days ago. JOHN in the setting of CHF, ? UTI maybe hypoxia ( as not using CPAP) causing renal tubular hypoxia. Hard to assess fluid status given obesity but she feels she is retaining and has edema and also CXR showing CHF. urine sediment was active with lots of hyaline casts so could have been milder case of renal tubular hypoxia causing early stage ATN. D/c Iv lasix and use Bumex 2 daily. ( home dose) reviewed her current med list and are acceptable for JOHN. (2) Acute exacerbation of CHF (congestive heart failure): CXR showed CHF but one from today is better She normally gets Bumex at home currently on hold.Will recommend to restart Diuretics. ECHO, CXR and BNP reviewed. Will restart her Bumex 2 mg Daily from now was not using CPAP at home. Advised her to get from Home as she does not like the hospital one. (3) Acute UTI (urinary tract infection): Final report pending but she is getting ABx S---No nerw issues. Room air. making urine. had ECHO and CXR done earlier today. ROS---- Denies headache, chest pain, abdominal or unusual flank pain. Physical Exam Physical Exam: GENERAL: Comfortable, pleasant, morbidly obese, no respiratory distress SKIN: Normal color, warm HEENT: [place] palpebral conjunctivae, dry buccal mucosa NECK : Supple, short neck, no tenderness CHEST : Decreased breath sounds, no tenderness HEART : RRR, no obvious murmurs ABDOMEN: Some distention, nontender EXTREMITIES : 1+ edema with Chronic skin changes NEUROLOGIC : Coherent, no facial asymmetry, gait and stance not assessed Results & Data Vital Signs (Past 12 Hours) Vital Signs Temp Pulse Pulse Resp BP Pulse Ox O2 Del Method 03/28/24 12:01 36.6 C 73 16 122/64 93 Room Air 03/28/24 07:34 36.8 C 68 16 121/62 94 Room Air 03/28/24 07:19 71
[2024-03-28] MEDS: BUMETANIDE 1 MG TAB PO SCH (16:15)
[2024-03-28] MEDS: SENNA 8.6 MG TAB PO SCH (18:33)
[2024-03-29 07:51] LABS: Hematocrit (blood only) 32.2 % (37.0-47.0); Hemoglobin 10.3 g/dl (12.0-16.0); Mean Corpuscular Hemoglobin 27.9 pg (25.0-34.0); Mean Corpuscular Volume 87.3 fL (80.0-100.0); Mean Platelet Volume 11.2 fL (9.4-12.4); Platelet Count 231 K/uL (130-400); RDW Coefficient of Variation 13.7 % (11.5-14.5); RDW Standard Deviation 43.8 fL (36.4-46.3); Red Blood Count 3.69 M/uL (4.20-5.40); White Blood Count 10.14 K/ul (4.8-10.8)
[2024-03-29 08:19] LABS: BUN Creatinine Ratio 30.6 (10-20); Calcium 8.8 mg/dl (8.6-10.3); Creatinine Clr Calc Pharmacy 34.9 ml/min; Magnesium 2.1 mg/dl (1.7-2.4); Phosphorus 2.9 mg/dl (2.5-4.9); Potassium 4.1 mmol/L (3.5-5.1)
[2024-03-29] MEDS: ALBUMIN 25% 25 GM/100 ML VIAL IV ONE (10:54)
--- NOTE | 2024-03-29 14:39 | Nephrology Progress Note ---
Date of Service March 29, 2024 Assessment & Plan Admission and Anticipated Discharge Date Admission Date: March 26, 2024 Subjective Assessment & Plan (1) Acute kidney injury superimposed on chronic kidney disease: Baseline creat 1.3 and now is 1.86 and it did go up from yesterday. however the rise of the creatinine over the last few days has been quite minimal. JOHN in the setting of CHF, ? UTI maybe hypoxia ( as not using CPAP) causing renal tubular hypoxia. Hard to assess fluid status given obesity. urine sediment was active with lots of hyaline casts so could have been milder case of renal tubular hypoxia causing early stage ATN. creatinine did go up compared to yesterday and could be related with hypotension earlier today and possible hypoxia overnight. she already received the morning dose of Bumex but will stop it for now. No need for IV fluid continue daily labs with CBC and renal panel (2) Acute exacerbation of CHF (congestive heart failure): 1stCXR showed CHF but one from yesterday did not show CHF was not using CPAP at home. Advised her to get from Home as she does not like the hospital one. S---No nerw issues. Room air. making urine. not sure about her CPAP use at night ROS---- Denies headache, chest pain, abdominal or unusual flank pain. Physical Exam Physical Exam: GENERAL: Comfortable, pleasant, morbidly obese, no respiratory distress SKIN: Normal color, warm HEENT: [place] palpebral conjunctivae, dry buccal mucosa NECK : Supple, short neck, no tenderness CHEST : Decreased breath sounds, no tenderness HEART : RRR, no obvious murmurs ABDOMEN: Some distention, nontender EXTREMITIES : 1+ edema with Chronic skin changes NEUROLOGIC : Coherent, no facial asymmetry, gait and stance not assessed Results & Data Vital Signs (Past 12 Hours) Vital Signs Temp Pulse Pulse Pulse Resp BP Pulse Ox 03/29/24 14:33 70 03/29/24 14:31 36.7 C 71 18 115/70 91 03/29/24 13:38 36.5 C 71 18 127/72 90 03/29/24 09:53 03/29/24 08:00 36.6 C 60 18 99/55 L 91 03/29/24 07:14 68 03/29/24 04:14 36.6 C 68 18 111/70 98 O2 Del Method 03/29/24 14:33 03/29/24 14:31 Room Air 03/29/24 13:38 Room Air 03/29/24 09:53 Room Air 03/29/24 08:00 Room Air 03/29/24 07:14 03/29/24 04:14 Room Air, CPAP
--- NOTE | 2024-03-29 17:06 | Hospitalist Progress Note ---
Date of Service March 29, 2024 Assessment & Plan (1) Asymptomatic hypertensive urgency: Plan: Secondary to illness Patient currently off maintenance medications. Home beta-grady held months ago due to possible TBS Medical telemetry given episodic BP elevation Initiate amlodipine if with persistent BP elevation BP has been on lower side, cont. to monitor Complicated UTI ARF on CKD secondary to illness Initially received IV albumin on admission given fluid retention, BP low Home diuretic on hold on admission Urine cultx - positive for Citrobacter resistant to ceftriaxone -> switched abx to cefepime Renal ultrasound - IMPRESSION: No evidence for obstructive uropathy. Ureteral jets not identified although no evidence for hydronephrosis. Cr 1.7 - nephrology consulted, appreciate their input - concern for poss. CHF -repeat CXR - negat. for pulm. vasc. congestion BNP elevated Echo - mild concentric LVH, EF 55-60%, No regional wall motion abnormalities, pulmonary artery syst. pressure 44 mm Hg. Diastolic dysfunction, grade II Cr 1.5 on 03/28/23 , bumex resumed, now Cr 1.8 - discussed w. nephro- hold bumex, make sure pt uses cpap Chronic conditions: chronic diastolic heart failure (EF 60 to 65% TTE 2023), equivocal volume status PAF, currently NSR on amiodarone, A-fib currently off anticoagulation secondary to bleeding history PSVT mild TR CATHERINE on CPAP DM 2 insulin requiring, well-controlled as recent hemoglobin A1c of 7.2 last September 2023 , Basal insulin, ISS BG goal 110-140, carb count coverage hypothyroidism, euthyroid as of today's TSH endometrial cancer status post surgery chronic anemia, hemoglobin stable ADHD, anxiety/mood disorder, at baseline past tobacco abuse PT OT eval DVT prophylaxis. Heparin subcu Full code Admission and Anticipated Discharge Date Admission Date: March 26, 2024 Subjective Pt seen in follow up of UTI + dysuria Pt is feeling overall much better No fever, chills, chest pain, shortness of breath at rest, no abd. pain, n/v JOHN - nephrology consulted Ucultx posit. for Citrobacter, resistant to ceftriaxone, abx changed Review of Systems Review of Systems: All systems reviewed & are unremarkable except as noted in Subjective Physical Exam Physical Exam: GENERAL: morbidly obese F in NAD, no respiratory distress SKIN: Normal color, warm HEENT: [place]/AT, [place] palpebral conjunctivae NECK : Supple, short neck CHEST : Decreased breath sounds, no wheezing, no rhonchi HEART : RRR, no obvious murmurs ABDOMEN: Some distention, nontender, + obese EXTREMITIES : Minimal LE swelling, moves extremities NEUROLOGIC : Coherent, no facial asymmetry, answers appropriately, moves extremities Results & Data Results & Data Vital Signs (Past 12 Hours) Vital Signs Temp Pulse Pulse Resp BP Pulse Ox O2 Del Method 03/29/24 14:33 70 03/29/24 14:31 36.7 C 71 18 115/70 91 Room Air 03/29/24 13:38 36.5 C 71 18 127/72 90 Room Air 03/29/24 09:53 Room Air 03/29/24 08:00 36.6 C 60 18 99/55 L 91 Room Air 03/29/24 07:14 68 Laboratory Results 03/29/24 03/29/24 03/29/24 Range/Units 11:59 08:24 06:44 WBC 10.14 (4.8-10.8) K/ul RBC 3.69 L (4.20-5.40) M/uL Hgb 10.3 L (12.0-16.0) g/dl Hct 32.2 L (37.0-47.0) % MCV 87.3 (80.0-100.0) fL MCH 27.9 (25.0-34.0) pg MCHC 32.0 (32.0-36.0) g/dL RDW Std Deviation 43.8 (36.4-46.3) fL RDW Coeff of Buck 13.7 (11.5-14.5) % Plt Count 231 (130-400) K/uL MPV 11.2 (9.4-12.4) fL Sodium 138 (136-145) mmol/L Potassium 4.1 (3.5-5.1) mmol/L Chloride 100 (98-107) mmol/L Carbon Dioxide 29 (21-32) mmol/L Anion Gap 9 (3-11) BUN 57 H (6-23) mg/dl Creatinine 1.86 H D (0.6-1.2) mg/dl Est Cr Clr Drug Dosing 34.9 ml/min eGFR 28.60 BUN/Creatinine Ratio 30.6 H (10-20) Glucose 149 H (70-99(Fasting)) mg/dl POC Glucose 165 H 153 H (70-99) mg/dl Calcium 8.8 (8.6-10.3) mg/dl Phosphorus 2.9 (2.5-4.9) mg/dl Magnesium 2.1 (1.7-2.4) mg/dl 03/28/24 03/28/24 Range/Units 20:17 17:12 WBC (4.8-10.8) K/ul RBC (4.20-5.40) M/uL Hgb (12.0-16.0) g/dl Hct (37.0-47.0) % MCV (80.0-100.0) fL MCH (25.0-34.0) pg MCHC (32.0-36.0) g/dL RDW Std Deviation (36.4-46.3) fL RDW Coeff of Buck (11.5-14.5) % Plt Count (130-400) K/uL MPV (9.4-12.4) fL Sodium (136-145) mmol/L Potassium (3.5-5.1) mmol/L Chloride (98-107) mmol/L Carbon Dioxide (21-32) mmol/L Anion Gap (3-11) BUN (6-23) mg/dl Creatinine (0.6-1.2) mg/dl Est Cr Clr Drug Dosing ml/min eGFR BUN/Creatinine Ratio (10-20) Glucose (70-99(Fasting)) mg/dl POC Glucose 165 H 186 H (70-99) mg/dl Calcium (8.6-10.3) mg/dl Phosphorus (2.5-4.9) mg/dl Magnesium (1.7-2.4) mg/dl Medications Administered Current Inpatient Medications Acetaminophen (Acetaminophen 325 Mg Tab) 650 mg PO QID PRN PRN Reason: pain/fever Stop: 04/25/24 01:58 Amiodarone HCl (Amiodarone 200 Mg Tab) 200 mg PO QPM [facility] Stop: 04/25/24 20:59 Last Admin: 03/28/24 20:35 Dose: 200 mg Atorvastatin Calcium (Atorvastatin 20 Mg Tab) 20 mg PO QAM [facility] Stop: 04/25/24 08:59 Last Admin: 03/29/24 07:44 Dose: 20 mg Bupropion HCl (Bupropion Sr 150 Mg Tabcr) 150 mg PO QAM [facility] Stop: 04/25/24 08:59 Last Admin: 03/29/24 07:44 Dose: 150 mg Bupropion HCl (Bupropion Sr 100 Mg Tabcr) 100 mg PO QAM [facility] Stop: 04/25/24 08:59 Last Admin: 03/29/24 07:46 Dose: 100 mg Cyanocobalamin (Cyanocobalamin (B-12) 500 Mcg Tablet) 1,000 mcg PO QAM [facility] Stop: 04/25/24 08:59 Last Admin: 03/29/24 07:44 Dose: 1,000 mcg Dextrose (Dextrose 50% 50 Ml Syringe) 25 - 50 ml IV UD PRN; Protocol PRN Reason: Hypoglycemia Protocol Stop: 04/25/24 02:41 Famotidine (Famotidine 20 Mg Tab) 20 mg PO BID [facility] Stop: 04/25/24 08:59 Last Admin: 03/29/24 07:44 Dose: 20 mg Fluoxetine HCl (Fluoxetine Hcl 20 Mg Cap) 60 mg PO QPM [facility] Stop: 04/25/24 20:59 Last Admin: 03/28/24 20:36 Dose: 60 mg Fluticasone/Vilanterol (Fluticasone/Vilanterol 200/25mcg 14 Puffs/Inhaler) 1 puffs INH DAILY [facility] Stop: 04/25/24 08:59 Last Admin: 03/29/24 07:43 Dose: 1 puffs Glucagon (Glucagon For Inj 1 Mg Vial) 1 mg SQ UD PRN; Protocol PRN Reason: Hypoglycemia Protocol Stop: 04/25/24 02:41 Glucose (Glucose 40% Gel 15 Gm Tube) 15 - 30 gm PO UD PRN; Protocol PRN Reason: Hypoglycemia Protocol Stop: 04/25/24 02:41 Glucose (Glucose 10 Tab/Tube) 4 - 8 tab PO UD PRN; Protocol PRN Reason: Hypoglycemia Protocol Stop: 04/25/24 02:41 Promethazine HCl (Phenergan) 12.5 mg in 50.5 mls @ 202 mls/hr IV Q6H PRN PRN Reason: Nausea And Vomiting Stop: 04/25/24 01:58 Last Infusion: 03/26/24 07:00 Dose: Infused Cefepime HCl (Maxipime 2000mg) 2,000 mg in 20 mls @ 5 mls/min IV Q12H [facility]; Protocol Stop: 04/02/24 09:59 Last Admin: 03/29/24 12:17 Dose: 5 mls/min Insulin Aspart (Insulin Aspart Per Unit Charge) 0 units SC ACHS [facility] Stop: 04/25/24 02:41 Last Admin: 03/29/24 13:27 Dose: 3 units Levothyroxine Sodium (Levothyroxine Sodium 50 Mcg Tablet) 50 mcg PO DAILYBB [facility] Stop: 04/25/24 06:29 Last Admin: 03/29/24 06:07 Dose: 50 mcg Miscellaneous (Carbohydrates For Hypoglycemia ) 15 - 30 gm PO UD PRN PRN Reason: Hypoglycemia Protocol Stop: 04/25/24 02:41 Nystatin (Nystatin Powder 15gm Btl) 1 appln EXT Q4 PRN PRN Reason: Affected Skin Folds Stop: 04/26/24 17:18 Last Admin: 03/27/24 21:09 Dose: 1 appln Ondansetron HCl (Ondansetron 2 Mg Od Tab) 2 mg PO Q6H PRN PRN Reason: Nausea Stop: 04/26/24 10:37 Last Admin: 03/28/24 08:13 Dose: 2 mg Polyethylene Glycol (Polyethylene (Miralax) 17 Gm Pack) 17 gm PO BID [facility] Stop: 04/25/24 20:59 Last Admin: 03/29/24 07:46 Dose: 17 gm Sennosides (Senna 8.6 Mg Tab) 8.6 mg PO QAM [facility] Stop: 04/27/24 18:14 Last Admin: 03/29/24 07:46 Dose: 8.6 mg Tramadol HCl (Tramadol Hcl 50 Mg Tablet) 25 - 50 mg PO Q4H PRN PRN Reason: Pain Stop: 04/25/24 01:58 Vibegron (Vibegron 75 Mg Tab) 75 mg PO QAM [facility] Stop: 04/25/24 08:59 Last Admin: 03/29/24 07:43 Dose: 75 mg
[2024-03-30 08:11] LABS: BUN Creatinine Ratio 37.6 (10-20); Calcium 8.9 mg/dl (8.6-10.3); Creatinine Clr Calc Pharmacy 38.1 ml/min; Phosphorus 3.5 mg/dl (2.5-4.9); Potassium 4.4 mmol/L (3.5-5.1)
[2024-03-30 08:15] LABS: Hemoglobin 10.1 g/dl (12.0-16.0); Mean Corpuscular Hemoglobin 28.2 pg (25.0-34.0); Mean Corpuscular Hgb Conc 32.6 g/dL (32.0-36.0); Mean Corpuscular Volume 86.6 fL (80.0-100.0); Mean Platelet Volume 11.6 fL (9.4-12.4); Platelet Count 236 K/uL (130-400); RDW Coefficient of Variation 13.7 % (11.5-14.5); RDW Standard Deviation 43.7 fL (36.4-46.3); Red Blood Count 3.58 M/uL (4.20-5.40); White Blood Count 9.85 K/ul (4.8-10.8)
--- NOTE | 2024-03-30 10:27 | Nephrology Progress Note ---
Date of Service March 30, 2024 Assessment & Plan Admission and Anticipated Discharge Date Admission Date: March 26, 2024 Subjective Assessment & Plan (1) Acute kidney injury superimposed on chronic kidney disease: Baseline creat 1.3 and was 1.86 yesterday but slighly lower today at 1.7. however the Change of the creatinine over the last few days has been quite minimal. It could very well be her new baseline range. NO sustained daily rise in creat as such. JOHN in the setting of CHF, ? UTI maybe hypoxia ( as not using CPAP) causing renal tubular hypoxia. Hard to assess fluid status given obesity. urine sediment was active with lots of hyaline casts so could have been milder case of renal tubular hypoxia causing early stage ATN. creatinine did go up compared to yesterday and could be related with hypotension earlier today and possible hypoxia overnight. hold bumex for today and also No need for IV fluid or albumin. However will restart Bumex tomorrow. At this point she is ready for discharge also from renal standpoint--Creat will fluctuate at a sliughtly higher baseline than before. continue daily labs with CBC and renal panel (2) Acute exacerbation of CHF (congestive heart failure): 1stCXR showed CHF but one from yesterday did not show CHF was not using CPAP at home. Advised her to get from Home as she does not like the hospital one. S---No new issues. Room air. making urine. Did use her Home CPAP at night. BP is slightly better ROS---- Denies headache, chest pain, abdominal or unusual flank pain. Physical Exam Physical Exam: GENERAL: Comfortable, pleasant, morbidly obese, no respiratory distress SKIN: Normal color, warm HEENT: [place] palpebral conjunctivae, dry buccal mucosa NECK : Supple, short neck, no tenderness CHEST : Decreased breath sounds, no tenderness HEART : RRR, no obvious murmurs ABDOMEN: Some distention, nontender EXTREMITIES : 1+ edema with Chronic skin changes NEUROLOGIC : Coherent, no facial asymmetry, gait and stance not assessed Results & Data Vital Signs (Past 12 Hours) Vital Signs Temp Pulse Pulse Resp BP Pulse Ox O2 Del Method 03/30/24 09:50 Room Air 03/30/24 07:21 37.0 C 68 18 102/63 95 Room Air 03/30/24 07:19 66 03/30/24 03:47 36.6 C 67 18 116/70 95 Room Air 03/29/24 23:00 36.5 C 63 18 120/73 96 Room Air
[2024-03-30] MEDS: GLYCERIN ADULT 12 SUPP/BOX SUPP PR ONE (15:27)
--- NOTE | 2024-03-30 16:14 | Hospitalist Progress Note ---
Date of Service March 30, 2024 Assessment & Plan (1) Asymptomatic hypertensive urgency: Plan: Secondary to illness Patient currently off maintenance medications. Home beta-grady held months ago due to possible TBS Medical telemetry given episodic BP elevation Initiate amlodipine if with persistent BP elevation BP has been on lower side, cont. to monitor Complicated UTI ARF on CKD secondary to illness Initially received IV albumin on admission given fluid retention, BP low Home diuretic on hold on admission Urine cultx - positive for Citrobacter resistant to ceftriaxone -> switched abx to cefepime Renal ultrasound - IMPRESSION: No evidence for obstructive uropathy. Ureteral jets not identified although no evidence for hydronephrosis. Cr 1.7 - nephrology consulted, appreciate their input - concern for poss. CHF -repeat CXR - negat. for pulm. vasc. congestion BNP elevated Echo - mild concentric LVH, EF 55-60%, No regional wall motion abnormalities, pulmonary artery syst. pressure 44 mm Hg. Diastolic dysfunction, grade II Cr 1.5 on 03/28/23 , bumex resumed, -> Cr 1.8 - discussed w. nephro- hold bumex, make sure pt uses cpap - current Cr 1.7, plan to hold bumex today and resume tmrw Chronic conditions: chronic diastolic heart failure (EF 60 to 65% TTE 2023), equivocal volume status PAF, currently NSR on amiodarone, A-fib currently off anticoagulation secondary to bleeding history PSVT mild TR CATHERINE on CPAP DM 2 insulin requiring, well-controlled as recent hemoglobin A1c of 7.2 last September 2023 , Basal insulin, ISS BG goal 110-140, carb count coverage hypothyroidism, euthyroid as of today's TSH endometrial cancer status post surgery chronic anemia, hemoglobin stable ADHD, anxiety/mood disorder, at baseline past tobacco abuse PT OT eval DVT prophylaxis. Heparin subcu Full code Admission and Anticipated Discharge Date Admission Date: March 26, 2024 Subjective Pt seen in follow up of UTI Pt is feeling overall much better, + constipation. Plan to likely DC tmrw No fever, chills, chest pain, shortness of breath at rest, no abd. pain, n/v JOHN - nephrology consulted Ucultx posit. for Citrobacter Review of Systems Review of Systems: All systems reviewed & are unremarkable except as noted in Subjective Physical Exam Physical Exam: GENERAL: morbidly obese F in NAD, no respiratory distress SKIN: Normal color, warm HEENT: [place]/AT, [place] palpebral conjunctivae NECK : Supple, short neck CHEST : Decreased breath sounds, no wheezing, no rhonchi HEART : RRR, no obvious murmurs ABDOMEN: Some distention, nontender, + obese EXTREMITIES : Minimal LE swelling, moves extremities NEUROLOGIC : Coherent, no facial asymmetry, answers appropriately, moves extremities Results & Data Results & Data Vital Signs (Past 12 Hours) Vital Signs Temp Pulse Pulse Resp BP Pulse Ox O2 Del Method 03/30/24 14:15 67 03/30/24 11:12 36.9 C 66 18 105/58 L 96 Room Air 03/30/24 09:50 Room Air 03/30/24 07:21 37.0 C 68 18 102/63 95 Room Air 03/30/24 07:19 66 Laboratory Results 03/30/24 03/30/24 03/30/24 Range/Units 12:13 08:18 07:33 WBC 9.85 (4.8-10.8) K/ul RBC 3.58 L (4.20-5.40) M/uL Hgb 10.1 L (12.0-16.0) g/dl Hct 31.0 L (37.0-47.0) % MCV 86.6 (80.0-100.0) fL MCH 28.2 (25.0-34.0) pg MCHC 32.6 (32.0-36.0) g/dL RDW Std Deviation 43.7 (36.4-46.3) fL RDW Coeff of Buck 13.7 (11.5-14.5) % Plt Count 236 (130-400) K/uL MPV 11.6 (9.4-12.4) fL Sodium 136 (136-145) mmol/L Potassium 4.4 (3.5-5.1) mmol/L Chloride 99 (98-107) mmol/L Carbon Dioxide 29 (21-32) mmol/L Anion Gap 8 (3-11) BUN 64 H (6-23) mg/dl Creatinine 1.70 H (0.6-1.2) mg/dl Est Cr Clr Drug Dosing 38.1 ml/min eGFR 31.86 BUN/Creatinine Ratio 37.6 H (10-20) Glucose 169 H (70-99(Fasting)) mg/dl POC Glucose 178 H 182 H (70-99) mg/dl Calcium 8.9 (8.6-10.3) mg/dl Phosphorus 3.5 (2.5-4.9) mg/dl Magnesium 2.0 (1.7-2.4) mg/dl 03/29/24 03/29/24 Range/Units 20:23 17:03 WBC (4.8-10.8) K/ul RBC (4.20-5.40) M/uL Hgb (12.0-16.0) g/dl Hct (37.0-47.0) % MCV (80.0-100.0) fL MCH (25.0-34.0) pg MCHC (32.0-36.0) g/dL RDW Std Deviation (36.4-46.3) fL RDW Coeff of Buck (11.5-14.5) % Plt Count (130-400) K/uL MPV (9.4-12.4) fL Sodium (136-145) mmol/L Potassium (3.5-5.1) mmol/L Chloride (98-107) mmol/L Carbon Dioxide (21-32) mmol/L Anion Gap (3-11) BUN (6-23) mg/dl Creatinine (0.6-1.2) mg/dl Est Cr Clr Drug Dosing ml/min eGFR BUN/Creatinine Ratio (10-20) Glucose (70-99(Fasting)) mg/dl POC Glucose 171 H 190 H (70-99) mg/dl Calcium (8.6-10.3) mg/dl Phosphorus (2.5-4.9) mg/dl Magnesium (1.7-2.4) mg/dl Medications Administered Current Inpatient Medications Acetaminophen (Acetaminophen 325 Mg Tab) 650 mg PO QID PRN PRN Reason: pain/fever Stop: 04/25/24 01:58 Amiodarone HCl (Amiodarone 200 Mg Tab) 200 mg PO QPM [facility] Stop: 04/25/24 20:59 Last Admin: 03/29/24 21:43 Dose: 200 mg Atorvastatin Calcium (Atorvastatin 20 Mg Tab) 20 mg PO QAM [facility] Stop: 04/25/24 08:59 Last Admin: 03/30/24 09:39 Dose: 20 mg Bupropion HCl (Bupropion Sr 150 Mg Tabcr) 150 mg PO QAM [facility] Stop: 04/25/24 08:59 Last Admin: 03/30/24 09:39 Dose: 150 mg Bupropion HCl (Bupropion Sr 100 Mg Tabcr) 100 mg PO QAM [facility] Stop: 04/25/24 08:59 Last Admin: 03/30/24 09:40 Dose: 100 mg Cyanocobalamin (Cyanocobalamin (B-12) 500 Mcg Tablet) 1,000 mcg PO QAM [facility] Stop: 04/25/24 08:59 Last Admin: 03/30/24 09:40 Dose: 1,000 mcg Dextrose (Dextrose 50% 50 Ml Syringe) 25 - 50 ml IV UD PRN; Protocol PRN Reason: Hypoglycemia Protocol Stop: 04/25/24 02:41 Famotidine (Famotidine 20 Mg Tab) 20 mg PO BID [facility] Stop: 04/25/24 08:59 Last Admin: 03/30/24 09:40 Dose: 20 mg Fluoxetine HCl (Fluoxetine Hcl 20 Mg Cap) 60 mg PO QPM [facility] Stop: 04/25/24 20:59 Last Admin: 03/29/24 21:43 Dose: 60 mg Fluticasone/Vilanterol (Fluticasone/Vilanterol 200/25mcg 14 Puffs/Inhaler) 1 puffs INH DAILY [facility] Stop: 04/25/24 08:59 Last Admin: 03/30/24 09:33 Dose: Not Given Glucagon (Glucagon For Inj 1 Mg Vial) 1 mg SQ UD PRN; Protocol PRN Reason: Hypoglycemia Protocol Stop: 04/25/24 02:41 Glucose (Glucose 40% Gel 15 Gm Tube) 15 - 30 gm PO UD PRN; Protocol PRN Reason: Hypoglycemia Protocol Stop: 04/25/24 02:41 Glucose (Glucose 10 Tab/Tube) 4 - 8 tab PO UD PRN; Protocol PRN Reason: Hypoglycemia Protocol Stop: 04/25/24 02:41 Promethazine HCl (Phenergan) 12.5 mg in 50.5 mls @ 202 mls/hr IV Q6H PRN PRN Reason: Nausea And Vomiting Stop: 04/25/24 01:58 Last Infusion: 03/26/24 07:00 Dose: Infused Cefepime HCl (Maxipime 2000mg) 2,000 mg in 20 mls @ 5 mls/min IV Q12H [facility]; P rotocol Stop: 04/02/24 09:59 Last Admin: 03/30/24 11:59 Dose: 5 mls/min Insulin Aspart (Insulin Aspart Per Unit Charge) 0 units SC ACHS [facility] Stop: 04/25/24 02:41 Last Admin: 03/30/24 13:27 Dose: 5 units Levothyroxine Sodium (Levothyroxine Sodium 50 Mcg Tablet) 50 mcg PO DAILYBB [facility] Stop: 04/25/24 06:29 Last Admin: 03/30/24 05:22 Dose: 50 mcg Miscellaneous (Carbohydrates For Hypoglycemia ) 15 - 30 gm PO UD PRN PRN Reason: Hypoglycemia Protocol Stop: 04/25/24 02:41 Nystatin (Nystatin Powder 15gm Btl) 1 appln EXT Q4 PRN PRN Reason: Affected Skin Folds Stop: 04/26/24 17:18 Last Admin: 03/27/24 21:09 Dose: 1 appln Ondansetron HCl (Ondansetron 2 Mg Od Tab) 2 mg PO Q6H PRN PRN Reason: Nausea Stop: 04/26/24 10:37 Last Admin: 03/30/24 03:18 Dose: 2 mg Polyethylene Glycol (Polyethylene (Miralax) 17 Gm Pack) 17 gm PO BID [facility] Stop: 04/25/24 20:59 Last Admin: 03/30/24 09:43 Dose: 17 gm Sennosides (Senna 8.6 Mg Tab) 8.6 mg PO QAM [facility] Stop: 04/27/24 18:14 Last Admin: 03/30/24 09:43 Dose: 8.6 mg Tramadol HCl (Tramadol Hcl 50 Mg Tablet) 25 - 50 mg PO Q4H PRN PRN Reason: Pain Stop: 04/25/24 01:58 Vibegron (Vibegron 75 Mg Tab) 75 mg PO QAM [facility] Stop: 04/25/24 08:59 Last Admin: 03/30/24 09:40 Dose: 75 mg
[2024-03-31 06:21] LABS: Hematocrit (blood only) 32.2 % (37.0-47.0); Hemoglobin 10.2 g/dl (12.0-16.0); Mean Corpuscular Hemoglobin 27.4 pg (25.0-34.0); Mean Corpuscular Hgb Conc 31.7 g/dL (32.0-36.0); Mean Corpuscular Volume 86.6 fL (80.0-100.0); Mean Platelet Volume 10.8 fL (9.4-12.4); Platelet Count 248 K/uL (130-400); RDW Coefficient of Variation 13.8 % (11.5-14.5); RDW Standard Deviation 43.4 fL (36.4-46.3); Red Blood Count 3.72 M/uL (4.20-5.40)
[2024-03-31 06:31] LABS: BUN Creatinine Ratio 40.3 (10-20); Calcium 9.2 mg/dl (8.6-10.3); Magnesium 2.2 mg/dl (1.7-2.4); Phosphorus 3.7 mg/dl (2.5-4.9); Potassium 4.8 mmol/L (3.5-5.1)
--- NOTE | 2024-03-31 10:11 | Nephrology Progress Note ---
Date of Service March 31, 2024 Assessment & Plan Admission and Anticipated Discharge Date Admission Date: March 26, 2024 Subjective Assessment & Plan (1) Acute kidney injury superimposed on chronic kidney disease: Baseline creat 1.3 and was 1.86 yesterday but slighly lower today at 1.7. however the Change of the creatinine over the last few days has been quite minimal. It could very well be her new baseline range. NO sustained daily rise in creat as such. JOHN in the setting of CHF, ? UTI maybe hypoxia ( as not using CPAP) causing renal tubular hypoxia. Hard to assess fluid status given obesity. urine sediment was active with lots of hyaline casts so could have been milder case of renal tubular hypoxia causing early stage ATN. creatinine did go up compared to yesterday and could be related with hypotension earlier today and possible hypoxia overnight. restart bumex from today and discharge on same home dose of 2 mg daily. At this point she is ready for discharge also from renal standpoint--Creat will fluctuate at a slightly higher baseline than before. She must use CPAP--when she does not use Creat seems to go up slightly. will sign off. Call if any issues (2) Acute exacerbation of CHF (congestive heart failure): 1stCXR showed CHF but one from yesterday did not show CHF was not using CPAP at home. Advised her to get from Home as she does not like the hospital one. S---No new issues. Room air. making urine. Did use her Home CPAP at night. BP is slightly better ROS---- Denies headache, chest pain, abdominal or unusual flank pain. Physical Exam Physical Exam: GENERAL: Comfortable, pleasant, morbidly obese, no respiratory distress SKIN: Normal color, warm HEENT: [place] palpebral conjunctivae, dry buccal mucosa NECK : Supple, short neck, no tenderness CHEST : Decreased breath sounds, no tenderness HEART : RRR, no obvious murmurs ABDOMEN: Some distention, nontender EXTREMITIES : 1+ edema with Chronic skin changes NEUROLOGIC : Coherent, no facial asymmetry, gait and stance not assessed Results & Data Vital Signs (Past 12 Hours) Vital Signs Temp Pulse Pulse Resp BP Pulse Ox O2 Del Method 03/31/24 07:31 Room Air, CPAP 03/31/24 07:23 64 03/31/24 07:23 36.6 C 64 18 100/61 95 Room Air 03/31/24 04:00 36.6 C 62 20 114/70 95 Room Air 03/31/24 00:29 36.5 C 63 20 128/76 95 Room Air
[2024-03-31] MEDS: BUMETANIDE 1 MG TAB PO SCH (11:34)
--- NOTE | 2024-03-31 13:14 | Hospitalist Progress Note ---
Date of Service March 31, 2024 Assessment & Plan (1) Asymptomatic hypertensive urgency: (2) Ambulatory dysfunction: Plan Pt is a 69yoF with past medical history significant for chronic diastolic heart failure (EF 60 to 65% TTE 2023), A-fib currently not on anticoagulation seco ndary to bleeding history, PSVT, mild TR, hypertension, CATHERINE on CPAP DM 2 insulin requiring, hypothyroidism, ocular myasthenia gravis as per records, endometrial cancer status post surgery, IBS, chronic anemia (baseline hemoglobin of 11), CKD (baseline creatinine 1.2), ADHD, anxiety/mood disorder, morbid obesity who presented with generalized weakness. Workup revealed a UTI. Generalized Weakness Complicated UTI UA suggestive of infection Urine Cx grew citrobacter frendii IV Rocephin, transition to po ciprofloxacin on dc PT/OT recommending return home Constipation Pt noting no BM since admission Prefers to not be discharged until BM On scheduled miralx BID with scheduled senekot Added scheduled colace s/p glycerin suppository on 03/30 Fleet enema and dose of milk of mag given on 03/31 Consider increasing miralax to TID dosing KUB in AM Hypertensive Urgency Noted on admission likely secondary to illness Patient currently off maintenance medications. Home beta-grady held months ago due to possible TBS BP has been trending low, currently on bumex Acute on Chronic Congestive Heart Failure BNP elevated Chest XRAY noting cardiomegaly with pulmonary vascular congestion, pulmonary edema with small R pleural effusion Echo noting Grade II diastolic heart failure, EF 55-60% trop levels normal On bumex 2mg daily Repeat chest xray 3 days later noting resolution of edema Acute on Chronic Kidney Disease Cr baseline of 1.3, Cr peaking at 1.86 Renal US noting no evidence of hydronephrosis or obstruction Nephrology consulted, recommended the following per Dr Marky Ring: "restart bumex from today and discharge on same home dose of 2 mg daily. At this point she is ready for discharge also from renal standpoint--Creat will fluctuate at a slightly higher baseline than before. She must use CPAP--when she does not use Creat seems to go up slightly." Continue Bumex 2mg daily. CATHERINE on cpap PAF Currently NSR on amiodarone off anticoagulation due to bleeding hx Continue to monitor on telemetry Other Chronic conditions: DM 2 insulin requiring, well-controlled as recent hemoglobin A1c of 7.2 last September 2023 , Basal insulin, ISS BG goal 110-140, carb count coverage hypothyroidism, euthyroid as of today's TSH endometrial cancer status post surgery chronic anemia, hemoglobin stable ADHD, anxiety/mood disorder, at baseline past tobacco abuse Diet:DMII/HH DVT prophylaxis. Heparin subcu discontinued on 03/28, SCDs Full code Dispo: Home once medically stable Admission and Anticipated Discharge Date Admission Date: March 26, 2024 Subjective Pt was seen laying in bed, cpap on face States she has not yet had a BM and does not want to go home before having one. Otherwise denies acute concerns. Review of Systems Review of Systems: All systems reviewed & are unremarkable except as noted in Subjective Physical Exam Physical Exam: General: Alert, oriented. No acute distress Psych: Appropriate mood and affect Neuro: difficulty with movements in the bed HEENT: NC/AT CV: RRR Resp: Breath sounds clear bilaterally, no increased effort of breathing Abdomen: Soft, nontender Extremities: edema in lower extremities bilaterally. Results & Data Results & Data Vital Signs (Past 12 Hours) Vital Signs Temp Pulse Pulse Resp BP Pulse Ox O2 Del Method 03/31/24 11:20 36.3 C L 68 18 110/62 95 Room Air 03/31/24 07:31 Room Air, CPAP 03/31/24 07:23 64 03/31/24 07:23 36.6 C 64 18 100/61 95 Room Air 03/31/24 04:00 36.6 C 62 20 114/70 95 Room Air Diagnostic Findings Chest X-Ray 03/25/24 19:43 Exam(s): XR CXR 1 VIEW EXAM: XR Chest, 1 View CLINICAL HISTORY: Reason for exam: illness. TECHNIQUE: Frontal view of the chest. COMPARISON: Prior chest x-ray from September 04, 2023. FINDINGS: Lungs: Pulmonary vascular congestion with increased interstitial opacities. No consolidation. Pleural space: There is a small right pleural effusion. No pneumothorax. Heart: Mild cardiomegaly. Mediastinum: Unremarkable. Normal mediastinal contour. Bones/joints: Unremarkable. No acute fracture. IMPRESSION: Cardiomegaly with pulmonary vascular congestion and pulmonary edema with small right pleural effusion. Electronically signed by: Mague Beard MD 03/25/24 22:51 PM Renal Ultrasound 03/27/24 14:45 Exam(s): US RENAL EXAM: US Retroperitoneal Limited, Renal CLINICAL HISTORY: OJHN. TECHNIQUE: Real-time limited ultrasound of the retroperitoneum with image documentation. COMPARISON: CT abdomen 10/12/2023 FINDINGS: Right kidney: 10.9 cm length. No stones. No solid mass. No hydronephrosis. Left kidney: 10.3 cm length. No stones. No solid mass. No hydronephrosis. Urinary bladder: Ureteral jets not visualized. IMPRESSION: No evidence for obstructive uropathy. Ureteral jets not identified although no evidence for hydronephrosis. Electronically signed by: Mannie Taylor M.D. 03/28/24 01:59 AM Chest X-Ray 03/28/24 09:27 XR chest 2V PA/lateral CLINICAL HISTORY: f/u CHF COMPARISON STUDY: Chest radiograph March 25, 2024. FINDINGS: Lung volumes are normal. Lungs are clear. There is no pneumothorax or pleural effusion. Stable cardiomegaly. Mediastinal contours are normal. Pulmonary edema has improved. IMPRESSION: Resolution of pulmonary edema. No acute findings. ACT 112: Negative or not required by law. Electronically signed by: Ronald Jeff M.D. 03/28/2024 9:36 AM
[2024-03-31] MEDS: ACETAMINOPHEN 325 MG TAB PO PRN (15:12)
[2024-03-31] MEDS: SOD PHOSPHATE/SOD BIPHOSPHATE ENEMA 132 ML BTL PR STA (15:13)
[2024-03-31] MEDS: MAGNESIUM HYDROXIDE SUSP 30 ML UDC PO ONE (15:13)
[2024-03-31] MEDS ORDERED: MAGNESIUM HYDROXIDE SUSP 30 ML UDC PO PRN (20:04)
[2024-03-31] MEDS: DOCUSATE SODIUM 100 MG CAP PO SCH (21:00)
[2024-04-01 06:48] LABS: Basophils # (auto) 0.05 K/uL (0.00-0.20); Basophils % (auto) 0.4 %; Eosinophils # (auto) 0.21 K/uL (0.00-0.50); Eosinophils % (auto) 1.8 %; Hematocrit (blood only) 32.1 % (37.0-47.0); Hemoglobin 10.2 g/dl (12.0-16.0); Immature Granulocytes # (auto) 0.08 K/uL (0.01-0.20); Immature Granulocytes % (auto) 0.7 %; Lymphocytes # (auto) 1.45 K/uL (1.20-3.40); Lymphocytes % (auto) 12.6 %; Mean Corpuscular Hemoglobin 27.3 pg (25.0-34.0); Mean Corpuscular Hgb Conc 31.8 g/dL (32.0-36.0); Mean Corpuscular Volume 86.1 fL (80.0-100.0); Monocytes # (auto) 1.15 K/uL (0.11-0.59); Neutrophils # (auto) 8.53 K/uL (1.40-6.50); Neutrophils % (auto) 74.5 %; Platelet Count 265 K/uL (130-400); RDW Coefficient of Variation 13.7 % (11.5-14.5); RDW Standard Deviation 42.7 fL (36.4-46.3); Red Blood Count 3.73 M/uL (4.20-5.40); White Blood Count 11.47 K/ul (4.8-10.8)
[2024-04-01 07:11] LABS: BUN Creatinine Ratio 39.9 (10-20); Calcium 9.2 mg/dl (8.6-10.3); Creatinine Clr Calc Pharmacy 40.7 ml/min; Magnesium 2.3 mg/dl (1.7-2.4); Phosphorus 3.7 mg/dl (2.5-4.9); Potassium 4.3 mmol/L (3.5-5.1)
[2024-04-01 08:21] VITALS: BP 121/57; RESP 16; TEMP 97.7; O2SAT 97
--- NOTE | 2024-04-01 09:33 | XRay Report ---
KUB CLINICAL HISTORY: Constipation. COMPARISON STUDY: CT of the abdomen pelvis October 12, 2023. FINDINGS: Bilateral renal calculi measure up to 8 mm. Pelvic calcifications favor phleboliths and vas cular calcifications. There are no ureteral calculi. The bowel gas pattern is normal. There is a mode rate amount of stool within the colon. There is a small amount of stool within the rectum. There are calcified granulomas within the spleen. IMPRESSION: 1. No evidence for a bowel obstruction. 2. Moderate amount stool within the colon and small amount of stool within the rectum. 3. Bilateral nephrolithiasis. ACT 112: Negative or not required by law. Electronically signed by: Ronald Jeff M.D. 04/01/2024 9:32 AM
--- NOTE | 2024-04-01 10:47 | Discharge Summary ---
Discharge Summary Date of Service April 01, 2024 Principal Dx & Hospital Course #1 = Principal Diagnosis (1) Asymptomatic hypertensive urgency: (2) Ambulatory dysfunction: (3) Acute UTI (urinary tract infection): Plan Pt is a 69yoF with past medical history significant for chronic diastolic heart failure (EF 60 to 65% TTE 2023), A-fib currently not on anticoagulation secondary to bleeding history, PSVT, mild TR, hypertension, CATHERINE on CPAP DM 2 insulin requiring, hypothyroidism, ocular myasthenia gravis as per records, endometrial cancer status post surgery, IBS, chronic anemia (baseline hemoglobin of 11), CKD (baseline creatinine 1.2), ADHD, anxiety/mood disorder, morbid obesity who presented with generalized weakness. Workup revealed a UTI. Generalized Weakness Complicated UTI UA suggestive of infection Urine Cx grew citrobacter freundii. Noted resistance to Rocephin. Treated with IV Cefepime, transitioned to po ciprofloxacin on dc for an additional 7 days PT/OT recommending return home PCP followup. Constipation Pt noting no BM since admission Prefers to not be discharged until BM On scheduled miralx BID with scheduled senekot Added scheduled colace s/p glycerin suppository on 03/30 Fleet enema and dose of milk of mag given on 03/31 with noted BM. KUB on day of discharge still noting persistent moderate amount of stool. Pt advised to continue with bowel regimen at home of scheduled miralax and colace PCP followup after discharge. Hypertensive Urgency Noted on admission likely secondary to illness Patient currently off maintenance medications. Home beta-grady held months ago due to possible TBS BP has been trending low, currently on bumex BP stable on discharge PC followup for continued monitoring PAF Currently NSR on amiodarone off anticoagulation due to bleeding hx Cardiology followup after dc Acute on Chronic Congestive Heart Failure BNP elevated Chest XRAY noting cardiomegaly with pulmonary vascular congestion, pulmonary edema with small R pleural effusion Echo noting Grade II diastolic heart failure, EF 55-60% trop levels normal On bumex 2mg daily Repeat chest xray 3 days later noting resolution of edema Acute on Chronic Kidney Disease Cr baseline of 1.3, Cr peaking at 1.86 Renal US noting no evidence of hydronephrosis or obstruction Nephrology consulted, recommended the following per Dr Marky Ring: "restart bumex from today and discharge on same home dose of 2 mg daily. At this point she is ready for discharge also from renal standpoint--Creat will fluctuate at a slightly higher baseline than before. She must use CPAP--when she does not use Creat seems to go up slightly." Continue Bumex 2mg daily. Close Nephrology followup after discharge CATHERINE on cpap, continue Other Chronic conditions: DM 2 insulin requiring, well-controlled as recent hemoglobin A1c of 7.2 last September 2023 , Basal insulin, ISS BG goal 110-140, carb count coverage hypothyroidism, euthyroid as of TSH on admission endometrial cancer status post surgery chronic anemia, hemoglobin stable ADHD, anxiety/mood disorder, at baseline past tobacco abuse Notes For Next Care Provider Please ensure close followup with Nephrology and Cardiology after discharge Please ensure resolution of noted constipation Medication Changes From Visit ciprofloxacin 500mg BID x 7 more days colace 100mg BID Home bumex 2mg daily renewed Admission HPI Per Admitting Provider History obtained from patient and records. Medical history significant for chronic diastolic heart failure (EF 60 to 65% TTE 2023), A-fib/possible TBS currently not on anticoagulation secondary to bleeding history, PSVT, mild TR, hypertension, CATHERINE on CPAP DM 2 insulin requiring, hypothyroidism, ocular myasthenia gravis as per records, endometrial cancer status post surgery, IBS, chronic anemia (baseline hemoglobin of 11), CRI (baseline creatinine 1.2), ADHD, anxiety/mood disorder, morbid obesity, past tobacco abuse. Last confinement October 2023 for spontaneous right iliopsoas hematoma/retroperitoneal bleed presenting as right groin pain. Eliquis held on discharge. Patient discharged on amiodarone for A-fib control following confinement. Patient feeling ill the last few weeks. Denies headache, chest pain, SOB, abdominal or unusual flank pain. Increasing weakness fatigue, lightheadedness. Emesis without abdominal pain. Patient worried about a brewing UTI. No unusual weight gain. Denies unusual fluid retention. IV ceftriaxone administered at the ER. 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 No acute distress Psych: Appropriate mood and affect HEENT: NC/AT CV: RRR Resp: Breath sounds clear bilaterally, no increased effort of breathing Abdomen: Soft, nontender Extremities: edema in lower extremities bilaterally. Updated Medication List Medication Instructions Recorded Confirmed Type atorvastatin 20 mg tablet 20 mg PO QAM #30 tabs 10/24/23 03/26/24 Rx bupropion HCl 100 mg tablet,12 hr 100 mg PO QAM #30 ea 10/24/23 03/26/24 Rx sustained-release bupropion HCl 150 mg tablet,12 hr 150 mg PO QAM #30 ea 10/24/23 03/26/24 Rx sustained-release cyanocobalamin (vitamin B-12) 1,000 mcg PO QAM #30 tabs 10/24/23 03/26/24 Rx 1,000 mcg tablet mirabegron 50 mg tablet,extended 50 mg PO QAM #30 tabs 10/24/23 03/26/24 Rx release 24 hr (Myrbetriq) albuterol sulfate 90 mcg/actuation 2 puff inhalation Q4 PRN cough/sob 03/26/24 03/26/24 History aerosol inhaler amiodarone 200 mg tablet 200 mg PO QPM 03/26/24 03/26/24 History benzonatate 100 mg capsule 100 mg PO TID PRN Cough 03/26/24 03/26/24 History cholecalciferol (vitamin D3) 50 50 mcg PO QAM 03/26/24 03/26/24 History mcg (2,000 unit) tablet (Vitamin D3) famotidine 20 mg tablet (Pepcid) 20 mg PO AMPM 03/26/24 03/26/24 History fluoxetine 60 mg tablet 60 mg PO QPM 03/26/24 03/26/24 History fluticasone 250 mcg-salmeterol 50 1 ea inhalation QPM 03/26/24 03/26/24 History mcg/dose blistr powdr for inhalation insulin aspart U-100 100 unit/mL 0 unit subcut WM 03/26/24 03/26/24 History (3 mL) subcutaneous pen (Novolog FlexPen U-100 Insulin aspart) insulin degludec 100 21 unit subcut QPM 03/26/24 03/26/24 History unit-liraglutide 3.6 mg/mL(3 mL) subcutaneous pen (Xultophy 100/3.6) insulin glargine 100 unit/mL 4 unit subcut PM 03/26/24 03/26/24 History subcutaneous solution (Lantus U-100 Insulin) levothyroxine 50 mcg tablet 50 mcg PO DAILYBB 03/26/24 03/26/24 History ondansetron HCl 4 mg tablet 4 mg PO Q6 PRN Nausea And Vomiting 03/26/24 03/26/24 History polyethylene glycol 3350 17 gram 17 g PO DAILY PRN Constipation 03/26/24 03/26/24 History oral powder packet (Miralax) bumetanide 2 mg tablet 2 mg PO QAM #30 tabs 04/01/24 Rx ciprofloxacin HCl 500 mg tablet 500 mg PO BID #14 tabs 04/01/24 Rx docusate sodium 100 mg capsule 100 mg PO BID #60 caps 04/01/24 Rx (Colace) Hospital Stay Data Consultations 03/26/24 00:41 ED Decision to Admit Stat 03/27/24 08:18 Consult Nephrology Routine Diagnostic Imagining Performed 03/27/24 14:45 US renal/blad retro comp Routine Chest X-Ray 03/25/24 19:43 Exam(s): XR CXR 1 VIEW EXAM: XR Chest, 1 View CLINICAL HISTORY: Reason for exam: illness. TECHNIQUE: Frontal view of the chest. COMPARISON: Prior chest x-ray from September 04, 2023. FINDINGS: Lungs: Pulmonary vascular congestion with increased interstitial opacities. No consolidation. Pleural space: There is a small right pleural effusion. No pneumothorax. Heart: Mild cardiomegaly. Mediastinum: Unremarkable. Normal mediastinal contour. Bones/joints: Unremarkable. No acute fracture. IMPRESSION: Cardiomegaly with pulmonary vascular congestion and pulmonary edema with small right pleural effusion. Electronically signed by: Mague Beard MD 03/25/24 22:51 PM Renal Ultrasound 03/27/24 14:45 Exam(s): US RENAL EXAM: US Retroperitoneal Limited, Renal CLINICAL HISTORY: JOHN. TECHNIQUE: Real-time limited ultrasound of the retroperitoneum with image documentation. COMPARISON: CT abdomen 10/12/2023 FINDINGS: Right kidney: 10.9 cm length. No stones. No solid mass. No hydronephrosis. Left kidney: 10.3 cm length. No stones. No solid mass. No hydronephrosis. Urinary bladder: Ureteral jets not visualized. IMPRESSION: No evidence for obstructive uropathy. Ureteral jets not identified although no evidence for hydronephrosis. Electronically signed by: Mannie Taylor M.D. 03/28/24 01:59 AM Chest X-Ray 03/28/24 09:27 XR chest 2V PA/lateral CLINICAL HISTORY: f/u CHF COMPARISON STUDY: Chest radiograph March 25, 2024. FINDINGS: Lung volumes are normal. Lungs are clear. There is no pneumothorax or pleural effusion. Stable cardiomegaly. Mediastinal contours are normal. Pulmonary edema has improved. IMPRESSION: Resolution of pulmonary edema. No acute findings. ACT 112: Negative or not required by law. Electronically signed by: Ronald Jeff M.D. 03/28/2024 9:36 AM KUB X-Ray 04/01/24 08:00 KUB CLINICAL HISTORY: Constipation. COMPARISON STUDY: CT of the abdomen pelvis October 12, 2023. FINDINGS: Bilateral renal calculi measure up to 8 mm. Pelvic calcifications favor phleboliths and vascular calcifications. There are no ureteral calculi. The bowel gas pattern is normal. There is a moderate amount of stool within the colon. There is a small amount of stool within the rectum. There are calcified granulomas within the spleen. IMPRESSION: 1. No evidence for a bowel obstruction. 2. Moderate amount stool within the colon and small amount of stool within the rectum. 3. Bilateral nephrolithiasis. ACT 112: Negative or not required by law. Electronically signed by: Ronald Jeff M.D. 04/01/2024 9:32 AM Pending Results Patient Have Any Pending Studies at Discharge: No Discharge Instructions Given to Patient (Per Discharging Provider) Lisa, We are discharging you home with the oral antibiotic ciprofloxacin 500mg twice daily for an additional 7 days for your urinary tract infection. Nephrology also recommends that you continue with your Bumex 2 mg daily at home. Please continue with your bowel regimen at home. Prescribed you the daily med ication Colace to be taken twice a day with your home MiraLAX. Please continue to keep close follow-up with your primary care provider and specialists such as nephrology and cardiology after discharge. Please do not hesitate to come back to the emergency room if your symptoms worsen or return. It was a pleasure taking care of you while you were here. Total Time Total Time Spent Total Time Spent (In Minutes): 65
[2024-04-01 11:07] VITALS: PULSE 64
== END 2024-04-01 11:55 | disposition home or self-care (01) | DRG 682 ==
LOC: ED 19:31 → EDINP 03-26 01:54 → SUATTDRO 03-26 01:54 → 2N 03-26 02:41

== ENCOUNTER 2024-09-20 11:48 | Inpatient (IN) ==
[2024-09-20] MEDS: ONDANSETRON INJ 2 MG/ML 2 ML VIAL IV STA (12:40)
[2024-09-20] MEDS: FAMOTIDINE 20MG IV PUSH 20 MG/5 ML SYR IV STA (12:42)
--- NOTE | 2024-09-20 12:42 | Emergency Department Note ---
Impression & Plan SOB (shortness of breath), CHF (congestive heart failure), Vomiting, Elevated troponin, Weakness ED Provider Note NAME: TORO BRADEN AGE: 69 SEX: F : 1955 ARRIVES VIA: Ambulance INFORMANT: [Patient] ED PROVIDER(S): [Gaston Wyman MD] CHIEF COMPLAINT: Weakness, vomiting HISTORY OF PRESENT ILLNESS: The patient is a 69-year-old female whose had 2 days of progressing weakness and vomiting. Today, she felt like she may fall, both legs were so weak. She denies any abdominal pain or bloating. No fever. No diarrhea. No sick contacts or bad food eaten. The patient states that in addition to everything, she feels more short of breath. The patient states that she thought she had a UTI a short time ago although, her urinary symptoms now seem to have resolved. Of note, the patient could not take her morning meds because of nausea/vomiting. PMHx/PSHx/Social Hx: See Below PHYSICAL EXAM: GENERAL: Patient is in no acute distress. HEENT: No acute trauma, normocephalic atraumatic, mucous membranes moist, no nasal congestion. NECK: No stridor, no adenopathy, no meningismus, trachea is midline. LUNGS: Clear to auscultation bilaterally when listening anterior, no wheeze, no rhonchi, breath sounds equal. HEART: 2/6 systolic murmur, regular rate and rhythm. ABDOMEN: Soft, nontender, no peritonitis. Obese. EXTREMITIES: No cyanosis, full range of motion of all the joints without pain or difficulty. There is bilateral pedal edema with some erythema and increased warmth to the right lower extremity proximal to the ankle. NEUROLOGIC: Oriented x 3, no acute motor or sensory deficits, no focal weakness. No speech slur. SKIN: No jaundice, no diaphoresis. DIFFERENTIAL DIAGNOSIS: Dehydration, electrolyte imbalance, foodborne or viral illness, cellulitis, bowel obstruction, among others. EMERGENCY DEPARTMENT PROCEDURES: MEDICAL DECISION MAKING: There is no leukocytosis. The patient is anemic however, this is a chronic finding. There is a normal platelet count. Creatinine is slightly elevated, this is baseline. There is no worrisome liver enzyme elevation. No evidence for pancreatitis. ECG shows a sinus rhythm, no ST elevation. Cardiac enzyme testing x 1 is slightly elevated. This troponin elevation could be secondary to cardiac injury or mismatch from her dyspnea. Chest x-ray does show some potential mild CHF. BNP is elevated consistent with fluid overload. Abdominal and pelvis CT shows some chronic issues, no bowel obstruction or acute surgical process. On exam, the patient was not toxic or febrile. The patient received IV Zofran for nausea. She was given IV Pepcid. She was given IV Bumex and was ordered for an external Anderson catheter. Given the progressing weakness, given her shortness of breath, given the findings of CHF, given her vomiting, I do think hospitalization is indicated. I did speak with the patient and case management, the on-call hospitalist was consulted. Prior/Outside records/notes reviewed: Today's EMS notes describing her presentation and transport to this hospital. ECG per my interpretation: Indication was weakness. The ECG shows a normal sinus rhythm with a rate of 77. There is some nonspecific ST change. There is no ST elevation, no PVCs. The QTc is 463. Continuous Cardiac Monitoring per my interpretation: An order was placed for continuous cardiac monitoring. The monitor shows a rate of 76 with normal sinus rhythm. Imaging/x-ray results per my interpretation: Chest x-ray shows some mild fluid overload, no focal pneumonia. Chronic Medical/Social conditions affecting care: Obesity Care/Management discussed with: Case management, the on-call hospitalist. Level of care consideration(s): After review of the information above and other included data: --I believe the patient requires escalation of care to admission DISPOSITION: Admission Past Med/Surg History Problem List Weakness (Acute) Elevated troponin (Acute) Vomiting (Acute) CHF (congestive heart failure) (Acute) SOB (shortness of breath) (Acute) Ambulatory dysfunction Asymptomatic hypertensive urgency Acute kidney injury superimposed on chronic kidney disease (Acute) Acute exacerbation of CHF (congestive heart failure) (Acute) Atrial fibrillation with RVR Right groin pain (Acute) JOHN (acute kidney injury) (Acute) Hematoma of right iliopsoas muscle (Acute) UTI (urinary tract infection) (Acute) Paroxysmal atrial fibrillation Generalized weakness (Acute) Hyperlipidemia Hypertension Diabetes mellitus, type 2 dexcom intact Medical History Anemia Chronic cough 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, 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 Hypothyroidism Myasthenia gravis "EFFECTS ONLY MY VOCAL CORDS" Arthritis Stress incontinence in female GERD (gastroesophageal reflux disease) Hx of cancer of endometrium Idiopathic hypersomnia ADHD Peripheral neuropathy Hx of migraines Irregular heart beats NO CARDS Hx of sleep apnea NO DEVICE Chronic obstructive pulmonary disease H/O Surgical History History of surgery lymph node removed from forehead (benign) Hx of cataract extraction right/left History of esophagogastroduodenoscopy (EGD) H/O colonoscopy with polypectomy H/O total hysterectomy History of tooth extraction Nausea and vomiting after administration of anesthetic agent Family History Other No family history of adverse response to anesthesia Social History Smoking Status: Former smoker Tobacco Type: Cigarettes Second Hand Exposure: No; Do You Dip or Chew Tobacco: No; Hx Alcohol Use: Yes Alcohol type: wine Hx Substance Use: No Preferred Language: Tamazight Communication Ability: Effective Parimutuel Cashier Required: No Beliefs That Will Affect Care: None Current Living Situation: Alone Feels Safe at Home: Yes Assistive Devices: Cane and CPAP Allergies Allergies Allergy/AdvReac Type Severity Reaction Status Date / Time lisinopril Allergy Intermediate Cough Unverified 09/20/24 15:22 penicillin G Allergy Intermediate HIVES Verified 09/20/24 15:22 codeine AdvReac Intermediate VOMITING Verified 09/20/24 15:22 hydrocodone AdvReac Intermediate Vomiting Verified 09/20/24 15:22 Home Meds Home Medications Medication Instructions Recorded Confirmed albuterol sulfate 90 mcg/actuation 2 puff inhalation Q4 PRN cough/sob 03/26/24 09/20/24 aerosol inhaler amiodarone 200 mg tablet 200 mg PO QPM 03/26/24 09/20/24 benzonatate 100 mg capsule 100 mg PO TID PRN Cough 03/26/24 09/20/24 cholecalciferol (vitamin D3) 50 50 mcg PO QAM 03/26/24 09/20/24 mcg (2,000 unit) tablet (Vitamin D3) famotidine 20 mg tablet (Pepcid) 20 mg PO AMPM 03/26/24 09/20/24 fluoxetine 60 mg tablet 60 mg PO QPM 03/26/24 09/20/24 fluticasone 250 mcg-salmeterol 50 1 ea inhalation QPM PRN Coughing 03/26/24 09/20/24 mcg/dose blistr powdr for inhalation insulin aspart U-100 100 unit/mL 0 unit subcut WM 03/26/24 09/20/24 (3 mL) subcutaneous pen (Novolog FlexPen U-100 Insulin aspart) insulin degludec 100 18 unit subcut QPM 03/26/24 09/20/24 unit-liraglutide 3.6 mg/mL(3 mL) subcutaneous pen (Xultophy 100/3.6) insulin glargine 100 unit/mL 3 unit subcut PM 03/26/24 09/20/24 subcutaneous solution (Lantus U-100 Insulin) levothyroxine 50 mcg tablet 50 mcg PO DAILYBB 03/26/24 09/20/24 ondansetron HCl 4 mg tablet 4 mg PO Q6 PRN Nausea And Vomiting 03/26/24 09/20/24 polyethylene glycol 3350 17 gram 17 g PO DAILY PRN Constipation 03/26/24 09/20/24 oral powder packet (Miralax) aspirin 81 mg tablet,delayed 81 mg PO DAILY 09/20/24 09/20/24 release metolazone 10 mg tablet 10 mg PO DAILY PRN Weight Gain 09/20/24 09/20/24 solifenacin 5 mg tablet (Vesicare) 5 mg PO DAILY 09/20/24 09/20/24 torsemide 40 mg tablet 40 mg PO DAILY 09/20/24 09/20/24 vitamins A,C,R-gwzf-arpnez 4,296 1 cap PO BID 09/20/24 09/20/24 mcg-226 mg-90 mg capsule (PreserVision AREDS) Previous Rx's Medication Instructions Recorded atorvastatin 20 mg tablet 20 mg PO QAM #30 tabs 10/24/23 bupropion HCl 100 mg tablet,12 hr 100 mg PO QAM #30 ea 10/24/23 sustained-release bupropion HCl 150 mg tablet,12 hr 150 mg PO QAM #30 ea 10/24/23 sustained-release cyanocobalamin (vitamin B-12) 1,000 mcg PO QAM #30 tabs 10/24/23 1,000 mcg tablet mirabegron 50 mg tablet,extended 50 mg PO QAM #30 tabs 10/24/23 release 24 hr (Myrbetriq) docusate sodium 100 mg capsule 100 mg PO BID #60 caps 04/01/24 (Colace) Results & Data (ED) Vital Signs Vital Signs - 24 hr 09/20/24 11:48 09/20/24 12:45 09/20/24 12:59 Temperature 36.8 C Temperature Source Oral Pulse Rate 76 84 76 Pulse Rate from SpO2 Sensor 79 Respiratory Rate 16 16 Blood Pressure 152/71 H Blood Pressure Mean 98 Blood Pressure Position Semi-fowlers Pulse Oximetry 97 98 Oxygen Delivery Method Room Air Sepsis Recent Fever Within 48 Hours No Sepsis New/Unexplained Change in Mental Status No Sepsis Action Taken by Nursing No Action Required 09/20/24 13:08 09/20/24 13:41 09/20/24 14:32 Temperature Temperature Source Pulse Rate 77 78 79 Pulse Rate from SpO2 Sensor 77 78 79 Respiratory Rate 15 18 27 H Blood Pressure 111/59 L Blood Pressure Mean 76 Blood Pressure Position Pulse Oximetry 97 99 99 Oxygen Delivery Method Sepsis Recent Fever Within 48 Hours Sepsis New/Unexplained Change in Mental Status Sepsis Action Taken by Jail Medications Current Medication List: was personally reviewed by me Laboratory Data Attestation: I reviewed the patient's lab results. 09/20/24 12:07 09/20/24 12:07 Lab Results 09/20/24 09/20/24 Range/Units 12:07 14:37 WBC 9.18 (4.8-10.8) K/ul RBC 3.62 L (4.20-5.40) M/uL Hgb 10.5 L (12.0-16.0) g/dl Hct 31.9 L (37.0-47.0) % MCV 88.1 (80.0-100.0) fL MCH 29.0 (25.0-34.0) pg MCHC 32.9 (32.0-36.0) g/dL RDW Std Deviation 43.9 (36.4-46.3) fL RDW Coeff of Buck 13.6 (11.5-14.5) % Plt Count 222 (130-400) K/uL MPV 11.1 (9.4-12.4) fL Immature Gran % (Auto) 0.5 % Neut % (Auto) 82.4 % Lymph % (Auto) 7.2 % [place] % (Auto) 8.5 % Eos % (Auto) 1.0 % Baso % (Auto) 0.4 % Neut # (Auto) 7.56 H (1.40-6.50) K/uL Lymph # (Auto) 0.66 L (1.20-3.40) K/uL [place] # (Auto) 0.78 H (0.11-0.59) K/uL Eos # (Auto) 0.09 (0.00-0.50) K/uL Baso # (Auto) 0.04 (0.00-0.20) K/uL Immature Gran # (Auto) 0.05 (0.01-0.20) K/uL Sodium 139 (136-145) mmol/L Potassium 4.0 (3.5-5.1) mmol/L Chloride 102 (98-107) mmol/L Carbon Dioxide 28 (21-32) mmol/L Anion Gap 9 (3-11) BUN 39 H (6-23) mg/dl Creatinine 1.61 H (0.6-1.2) mg/dl Est Cr Clr Drug Dosing 40.1 ml/min eGFR 34.01 BUN/Creatinine Ratio 24.2 H (10-20) Glucose 142 H (70-99(Fasting)) mg/dl Calcium 8.8 (8.6-10.3) mg/dl Magnesium 1.9 (1.7-2.4) mg/dl Total Bilirubin 0.7 (0.2-1.0) mg/dl AST 39 (13-39) U/L ALT 39 (7-52) U/L Alkaline Phosphatase 48 (34-104) U/L Troponin I High Sens 32.4 H 36.2 H (0-14) pg/ml B-Natriuretic Peptide 239 H (0-100) pg/ml Total Protein 6.5 (6.0-8.3) gm/dl Albumin 3.5 (3.4-5.0) gm/dl Globulin 3.0 (2.5-4.0) gm/dl Albumin/Globulin Ratio 1.2 (0.9-2) Lipase 14 (11-82) U/L Administered Medications Discontinued Medications Famotidine (Pepcid 20mg Iv Push) 20 mg in 5 mls @ 2.5 mls/min IV NOW STA Stop: 09/20/24 12:31 Last Admin: 09/20/24 12:42 Dose: 2.5 mls/min Documented By: CODI Ondansetron HCl (Ondansetron Inj 2 Mg/Ml 2 Ml Vial) 4 mg IV NOW STA Stop: 09/20/24 12:31 Last Admin: 09/20/24 12:40 Dose: 4 mg Documented By: CEF Imaging Data Radiologist's Impression: Chest X-Ray 09/20/24 12:30 XR chest 1V portable CLINICAL HISTORY: sob COMPARISON STUDY: 03/28/2024 FINDINGS: Left atrial appendage occlusion device is present. There is mild cardiomegaly with mild pulmonary vascular congestion. No consolidation or pleural effusion. No pneumothorax. IMPRESSION: Mild CHF. ACT 112: Negative or not required by law. Electronically signed by: Ray Galindo M.D. 09/20/2024 12:52 PM Abdomen/Pelvis CT 09/20/24 13:[address] WITHOUT CONTRAST CT DOSE: 1468.38 mGy.cm HISTORY: Acute generalized abdominal pain with possible bowel obstruction poss obstruc TECHNIQUE: Multiaxial CT images of the abdomen and pelvis were performed without contrast. A dose lowering technique was utilized adhering to the principles of ALARA. COMPARISON STUDY: 10/12/2023 FINDINGS: Lung bases are generally clear. No pneumatosis or pneumoperitoneum. Calcified granulomata of the spleen. Unremarkable pancreas and adrenal glands. Mildly distended gallbladder. The liver is within normal limits. Nonobstructing calculi of the kidneys measure up to 10 mm on the right and 5 mm on the left. Bilateral bilateral perinephric stranding with cortical thinning. No ureteral calculi or hydronephrosis. Air within the nondependent urinary bladder lumen is nonspecific and may be secondary to instrumentation versus infection. Hysterectomy. Atherosclerosis of the aorta. No lymphadenopathy. Tiny hiatal hernia. No bowel obstruction or bowel wall thickening. Mild to moderate colonic fecal retention. Normal appendix. Diastases recti. Unremarkable soft tissues. No acute fracture. Degenerative changes of the spine with severe central canal stenosis at L4-L5. IMPRESSION: 1. No bowel obstruction or bowel wall thickening. 2. Nonobstructing bilateral nephrolithiasis without hydronephrosis. 3. Additional findings as above. ACT 112: Negative or not required by law. The above report was generated using voice recognition software. It may contain grammatical, syntax or spelling errors. Electronically signed by: Miguelito De M.D. 09/20/2024 1:54 PM Discharge Plan Visit Data Chief Complaint: Abdominal Pain Stated Complaint: AB PAIN, NAUSEA, VOMITING ED Provider: Gaston Wyman Discharge Problem: SOB (shortness of breath), CHF (congestive heart failure), Vomiting, Elevated troponin, Weakness Patient Disposition: Admitted As Inpatient Condition: Fair Forms Stand Alone Forms: [facility] Prescriptions Prescriptions: No Action amiodarone 200 mg tablet 200 mg PO QPM Taper: Taper, Blank 200 mg TWICE A DAY for 23 Days 200 mg DAILY for 30 Days famotidine [Pepcid] 20 mg tablet 20 mg PO AMPM cholecalciferol (vitamin D3) [Vitamin D3] 50 mcg (2,000 unit) tablet 50 mcg PO QAM fluoxetine 60 mg tablet 60 mg PO QPM levothyroxine 50 mcg tablet 50 mcg PO DAILYBB fluticasone propion-salmeterol 250-50 mcg/dose blister with device 1 ea INHALATION QPM PRN (Reason: Coughing) polyethylene glycol 3350 [Miralax] 17 gram powder in packet 17 g PO DAILY PRN (Reason: Constipation) Xultophy 100/3.6 100 unit-3.6 mg /mL (3 mL) insulin pen 18 unit SUBCUT QPM Rx Instructions: per pharmacy -up to 50 units daily per titration. insulin glargine [Lantus U-100 Insulin] 100 unit/mL Solution 3 unit SUBCUT PM insulin aspart U-100 [Novolog FlexPen U-100 Insulin] 100 unit/mL (3 mL) insulin pen 0 unit SUBCUT WM Rx Instructions: sliding scale albuterol sulfate 90 mcg/actuation HFA aerosol inhaler 2 puff INHALATION Q4 PRN (Reason: cough/sob) ondansetron HCl 4 mg Tablet 4 mg PO Q6 PRN (Reason: Nausea And Vomiting) benzonatate 100 mg capsule 100 mg PO TID PRN (Reason: Cough) docusate sodium [Colace] 100 mg capsule 100 mg PO BID Qty: 60 0RF aspirin 81 mg Tablet,Delayed Release (Dr/Ec) 81 mg PO DAILY metolazone 10 mg Tablet 10 mg PO DAILY PRN (Reason: Weight Gain) Rx Instructions: Take Torsemide 40mg by mouth once daily, may take up to 80mg daily for weight gain x 3 days. If not resolved, add Metolazone 10mg once daily solifenacin [Vesicare] 5 mg Tablet 5 mg PO DAILY PreserVision AREDS 4,296 mcg-226 mg-90 mg Capsule 1 cap PO BID torsemide 40 mg Tablet 40 mg PO DAILY MDD 80mg/24hr Rx Instructions: Take 40mg by mouth once daily, may take up to 80mg daily for weight gain x 3 days. If not resolved, add Metolazone 10mg once daily bupropion HCl 150 mg Tablet Sustained-Release 12 Hr 150 mg PO QAM Qty: 30 0RF Rx Instructions: TOTAL DOSE 250 MG--TAKES WITH 100 MG TAB. atorvastatin 20 mg Tablet 20 mg PO QAM Qty: 30 0RF cyanocobalamin (vitamin B-12) 1,000 mcg Tablet 1,000 mcg PO QAM Qty: 30 0RF bupropion HCl 100 mg Tablet Sustained-Release 12 Hr 100 mg PO QAM Qty: 30 0RF Rx Instructions: TOTAL DOSE 250 MG--TAKES WITH 150 MG TAB. mirabegron [Myrbetriq] 50 mg Tablet Extended Release 24 Hr 50 mg PO QAM Qty: 30 0RF Referrals Referrals: Aviva Rossi DO [Primary Care Provider] - Discharge Problem: CHF (congestive heart failure) Qualifiers: Heart failure type: unspecified Heart failure chronicity: acute on chronic Q ualified Code(s): I50.9 - Heart failure, unspecified Vomiting Qualifiers: Vomiting type: unspecified Nausea presence: with nausea Qualified Code(s): R 11.2 - Nausea with vomiting, unspecified
[2024-09-20 12:48] LABS: Hematocrit (blood only) 31.9 % (37.0-47.0); Hemoglobin 10.5 g/dl (12.0-16.0); Immature Granulocytes # (auto) 0.05 K/uL (0.01-0.20); Immature Granulocytes % (auto) 0.5 %; Mean Corpuscular Hemoglobin 29.0 pg (25.0-34.0); Mean Corpuscular Volume 88.1 fL (80.0-100.0); Platelet Count 222 K/uL (130-400); RDW Standard Deviation 43.9 fL (36.4-46.3); Red Blood Count 3.62 M/uL (4.20-5.40); White Blood Count 9.18 K/ul (4.8-10.8)
--- NOTE | 2024-09-20 12:54 | XRay Report ---
XR chest 1V portable CLINICAL HISTORY: sob COMPARISON STUDY: 03/28/2024 FINDINGS: Left atrial appendage occlusion device is present. There is mild cardiomegaly with mild pul monary vascular congestion. No consolidation or pleural effusion. No pneumothorax. IMPRESSION: Mild CHF. ACT 112: Negative or not required by law. Electronically signed by: Ray Galindo M.D. 09/20/2024 12:52 PM
[2024-09-20 13:13] LABS: Alanine Aminotransferase 39.0 U/L (7-52); Albumin Globulin Ratio 1.2 (0.9-2); Alkaline Phosphatase 48.0 U/L (34-104); Anion Gap 9.0 (3-11); Bilirubin,Total 0.7 mg/dl (0.2-1.0); Blood Urea Nitrogen 39.0 mg/dl (6-23); Calcium 8.8 mg/dl (8.6-10.3); Carbon Dioxide 28.0 mmol/L (21-32); Chloride 102.0 mmol/L (98-107); Creatinine Clr Calc Pharmacy 40.1 ml/min; Globulin 3.0 gm/dl (2.5-4.0); Glucose 142.0 mg/dl (70-99(Fasting)); Lipase 14.0 U/L (11-82); Magnesium 1.9 mg/dl (1.7-2.4); Potassium 4.0 mmol/L (3.5-5.1); Sodium 139.0 mmol/L (136-145); Total Protein 6.5 gm/dl (6.0-8.3)
--- NOTE | 2024-09-20 13:56 | CT Scan Report ---
ABDOMEN AND PELVIS CT WITHOUT CONTRAST CT DOSE: 1468.38 mGy.cm HISTORY: Acute generalized abdominal pain with possible bowel obstruction poss obstruc TECHNIQUE: Multiaxial CT images of the abdomen and pelvis were performed without contrast. A dose lo wering technique was utilized adhering to the principles of ALARA. COMPARISON STUDY: 10/12/2023 FINDINGS: Lung bases are generally clear. No pneumatosis or pneumoperitoneum. Calcified granulomata o f the spleen. Unremarkable pancreas and adrenal glands. Mildly distended gallbladder. The liver is wi thin normal limits. Nonobstructing calculi of the kidneys measure up to 10 mm on the right and 5 mm on the left. Bilatera l bilateral perinephric stranding with cortical thinning. No ureteral calculi or hydronephrosis. Air within the nondependent urinary bladder lumen is nonspecific and may be secondary to instrumentation versus infection. Hysterectomy. Atherosclerosis of the aorta. No lymphadenopathy. Tiny hiatal hernia. No bowel obstruction or bowel wall thickening. Mild to moderate colonic fecal retention. Normal appe ndix. Diastases recti. Unremarkable soft tissues. No acute fracture. Degenerative changes of the spin e with severe central canal stenosis at L4-L5. IMPRESSION: 1. No bowel obstruction or bowel wall thickening. 2. Nonobstructing bilateral nephrolithiasis without hydronephrosis. 3. Additional findings as above. ACT 112: Negative or not required by law. The above report was generated using voice recognition software. It may contain grammatical, syntax o r spelling errors. Electronically signed by: Miguelito De M.D. 09/20/2024 1:54 PM
--- NOTE | 2024-09-20 15:56 | History & Physical Report ---
Date of Service September 20, 2024 Assessment & Plan (1) Acute exacerbation of CHF (congestive heart failure): Plan: Patient is a 69 year old F with a past medical history of insulin-dependent DM Type II, dyslipidemia, hypothyroidism, diastolic heart failure, paroxysmal AFib, HTN, CKD Stage III, depression presenting with vomiting and shortness of breath. HF managed with diuretics OP with a recent increase in Torsemide dosing 1-2 weeks ago. Shortness of breath with minimal exertion began to worsen 1 week ago and she feels this is related to fluid overload. Nausea and vomiting is an ongoing concern and reportedly an associated symptom when fluid overloaded. She did not take her meds this morning due to nausea. Also with lightheadedness and sometimes dizzy. Acute on chronic CHF exacerbation #Elevated trop * Admit to Med Tele for further management of HF exacerbation * Worsening shortness of breath with exertion at home while on Torsemide- dose increased to 40 mg 1-2 weeks ago. * Trop elev 36.2--> will trend Q6H * Hold home Torsemide and Metalozone; Bumex given in ED and continue BID dosing to start in AM * Cardiology consult ordered- last Echo in Mar 2024 limited study; LVEF 55-60%; mild tricuspid regurg, pulmonary artery pressure ~44mmHg Grade II Diastolic dysfunction * RLE edema on exam- Doppler with no evidence DVT; Small fluid collection in the right groin that could represent a seroma or resolving hematoma * EKG as needed for CP * PT/OT when appropriate #Paroxysmal Afib s/p Watchman procedure * EKG here showing NSR with vent rate 77bpm * Continue home amiodarone for rate control * On Aspirin and Plavix; history of bleed with Eliquis in past * Tele monitoring * Mag/Phos with AM labs #Hypertension * BP controlled 119/56; Goal <140/90 * History of orthostatic hypotension per external chart review * Torsemide on hold. #CATHERINE * CPAP at home without oxygen requirement * CPAP ordered while inpatient-suspect CATHERINE contributory to current HF exacer # CKD Stage III * Cr 1.4 in July and steadily increased to 1.8 OP * Cr 1.6 today * Trend with AM labs while on diuretic tx #Diabetes Mellitis Type II * Hold home long-acting insulin combo (degludec-liraglutide) * SSI while inpatient; Goal BSG 110-140; Correction factor 45 Carb ratio 16 * Lantus 8 units while inpatient- adjust as needed * Accucheck ACHS #Hyperlipidemia * Continue home statin DVT Ppx: Heparin Code status: Full PCP: Dr. Aviva Rossi Dispo: Admit to Med Surg Tele for further management Patient seen in collaboration with Dr. Owen. Please see addendum.I spent a total of 70 minutes coordinating, documenting and providing care for this patient excluding time spent in the performance of separately billed services or time spent by another provider/QHP. (2) Elevated troponin: (3) Paroxysmal atrial fibrillation: (4) Hypertension: (5) CATHERINE (obstructive sleep apnea): (6) Diabetes mellitus, type 2: (7) Hyperlipidemia: History of Present Illness Primary Care Provider: Aviva Rossi DO Patient is a 69 year old F with a past medical history of insulin-dependent DM Type II, dyslipidemia, hypothyroidism, diastolic heart failure, paroxysmal AFib, HTN, CKD Stage III, depression presenting with vomiting and shortness of breath. HF managed with diuretics OP with a recent increase in Torsemide dosing 1-2 weeks ago. Shortness of breath with minimal exertion began to worsen 1 week ago and she feels this is related to fluid overload. Nausea and vomiting is an ongoing concern and reportedly an associated symptom when fluid overloaded. She did not take her meds this morning due to nausea. Also with lightheadedness and sometimes dizzy. Denies fever, chills, weight loss, weakness, headache, cognitive changes, vision/hearing changes, chest pain, difficulty breathing, urinary concerns, diarrhea, joint swelling/pain, ambulation difficulty, skin rashes, lesions, bleeding, bruising. In the emergency department, patient was hemodynamically stable with a 2LPM oxygen need mostly when sleeping. History of CATHERINE. EKG showing NSR with no ST elevation, vent rate 77 bpm, QTc 463. Troponin elevated 36.2. BNP elev at 239. Chest x-ray showing mild cardiomegaly with mild pulmonary vascular congestion; No consolidation or pleural effusion; No pneumothorax. Unilateral RLE swelling present per patient report, this is a chronic issue and looks better than it has been recently. Abdominal and pelvis CT shows some chronic issues, no bowel obstruction or acute surgical process. Patient had Watchman procedure last at [facility] ; on Aspirin and Plavix post-op. History of serious bleeding in the past when on Eliquis. Doppler RLE obtained for unilateral LE swelling showing no evidence of right leg deep venous thrombosis and a small fluid collection in the right groin that could represent a seroma or resolving hematoma. As per external chart review, patient was seen by PCP on 09/07/24 and had weight gain, was on torsemide 40 mg and advised to double the dose if weight increases significantly. She did not take any additional diuretics at home for current condition. Also noted to have low blood pressure readings at times, with some readings in the high 80s/50s per patient report. Orthostatic blood pressures were checked during PCP visit and were stable. History obtained primarily from the patient and via hospitalization record. External chart review obtained from [employer]. Allergies Allergy/AdvReac Type Severity Reaction Status Date / Time lisinopril Allergy Intermediate Cough Unverified 09/20/24 15:22 penicillin G Allergy Intermediate HIVES Verified 09/20/24 15:22 codeine AdvReac Intermediate VOMITING Verified 09/20/24 15:22 hydrocodone AdvReac Intermediate Vomiting Verified 09/20/24 15:22 Home Medications Medication Instructions Recorded Confirmed Type atorvastatin 20 mg tablet 20 mg PO QAM #30 tabs 10/24/23 09/20/24 Rx bupropion HCl 100 mg tablet,12 hr 100 mg PO QAM #30 ea 10/24/23 09/20/24 Rx sustained-release bupropion HCl 150 mg tablet,12 hr 150 mg PO QAM #30 ea 10/24/23 09/20/24 Rx sustained-release cyanocobalamin (vitamin B-12) 1,000 mcg PO QAM #30 tabs 10/24/23 09/20/24 Rx 1,000 mcg tablet mirabegron 50 mg tablet,extended 50 mg PO QAM #30 tabs 10/24/23 09/20/24 Rx release 24 hr (Myrbetriq) albuterol sulfate 90 mcg/actuation 2 puff inhalation Q4 PRN cough/sob 03/26/24 09/20/24 History aerosol inhaler amiodarone 200 mg tablet 200 mg PO QPM 03/26/24 09/20/24 History benzonatate 100 mg capsule 100 mg PO TID PRN Cough 03/26/24 09/20/24 History cholecalciferol (vitamin D3) 50 50 mcg PO QAM 03/26/24 09/20/24 History mcg (2,000 unit) tablet (Vitamin D3) famotidine 20 mg tablet (Pepcid) 20 mg PO AMPM 03/26/24 09/20/24 History fluoxetine 60 mg tablet 60 mg PO QPM 03/26/24 09/20/24 History fluticasone 250 mcg-salmeterol 50 1 ea inhalation QPM PRN Coughing 03/26/24 09/20/24 History mcg/dose blistr powdr for inhalation insulin aspart U-100 100 unit/mL 0 unit subcut WM 03/26/24 09/20/24 History (3 mL) subcutaneous pen (Novolog FlexPen U-100 Insulin aspart) insulin degludec 100 18 unit subcut QPM 03/26/24 09/20/24 History unit-liraglutide 3.6 mg/mL(3 mL) subcutaneous pen (Xultophy 100/3.6) insulin glargine 100 unit/mL 3 unit subcut PM 03/26/24 09/20/24 History subcutaneous solution (Lantus U-100 Insulin) levothyroxine 50 mcg tablet 50 mcg PO DAILYBB 03/26/24 09/20/24 History ondansetron HCl 4 mg tablet 4 mg PO Q6 PRN Nausea And Vomiting 03/26/24 09/20/24 History polyethylene glycol 3350 17 gram 17 g PO DAILY PRN Constipation 03/26/24 09/20/24 History oral powder packet (Miralax) docusate sodium 100 mg capsule 100 mg PO BID #60 caps 04/01/24 09/20/24 Rx (Colace) aspirin 81 mg tablet,delayed 81 mg PO DAILY 09/20/24 09/20/24 History release clopidogrel 75 mg tablet 75 mg DAILY 09/20/24 09/20/24 History clopidogrel 75 mg tablet 75 mg PO DAILY 09/20/24 09/20/24 History metolazone 10 mg tablet 2.5 mg PO DAILY PRN Weight Gain 09/20/24 09/20/24 History solifenacin 5 mg tablet (Vesicare) 5 mg PO DAILY 09/20/24 09/20/24 History torsemide 40 mg tablet 40 mg PO DAILY 09/20/24 09/20/24 History vitamins A,C,U-xgyc-tbmcqz 4,296 1 cap PO BID 09/20/24 09/20/24 History mcg-226 mg-90 mg capsule (PreserVision AREDS) Past Med/Surg History Problem List (Updated 09/20/24 @ 17:34 by RICCI Carroll) CATHERINE (obstructive sleep apnea) Weakness (Acute) Elevated troponin (Acute) Vomiting (Acute) CHF (congestive heart failure) (Acute) SOB (shortness of breath) (Acute) Ambulatory dysfunction Asymptomatic hypertensive urgency Acute kidney injury superimposed on chronic kidney disease (Acute) Acute exacerbation of CHF (congestive heart failure) (Acute) Atrial fibrillation with RVR Right groin pain (Acute) JOHN (acute kidney injury) (Acute) Hematoma of right iliopsoas muscle (Acute) UTI (urinary tract infection) (Acute) Paroxysmal atrial fibrillation Generalized weakness (Acute) Hyperlipidemia Hypertension Diabetes mellitus, type 2 dexcom intact Medical History Anemia Chronic cough 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, 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 Hypothyroidism Myasthenia gravis "EFFECTS ONLY MY VOCAL CORDS" Arthritis Stress incontinence in female GERD (gastroesophageal reflux disease) Hx of cancer of endometrium Idiopathic hypersomnia ADHD Peripheral neuropathy Hx of migraines Irregular heart beats NO CARDS Hx of sleep apnea NO DEVICE Chronic obstructive pulmonary disease H/O Surgical History History of surgery lymph node removed from forehead (benign) Hx of cataract extraction right/left History of esophagogastroduodenoscopy (EGD) H/O colonoscopy with polypectomy H/O total hysterectomy History of tooth extraction Nausea and vomiting after administration of anesthetic agent Family History Other No family history of adverse response to anesthesia Social History Smoking Status: Former smoker Tobacco Type: Cigarettes Second Hand Exposure: No; Do You Dip or Chew Tobacco: No; Hx Alcohol Use: Yes Alcohol type: wine Hx Substance Use: No Preferred Language: Gibraltarian Communication Ability: Effective Colors Custodian Required: No Beliefs That Will Affect Care: None Current Living Situation: Alone Feels Safe at Home: Yes Assistive Devices: Cane and CPAP Review of Systems Review of Systems: All systems reviewed & are unremarkable except as noted in HPI & below Physical Exam Physical Exam: VITALS: Reviewed. WEIGHT/BMI reviewed. GEN: Obese, well-developed, NAD. PSYCH: Good Judgment. AOx3. Normal memory, mood, and affect. HEENT -Head: NC/AT; -Eyes: PERRL, EOMI. No discharge or redn ess; -Ears: External ears are normal. -Nose: Normal nares. -Mouth and throat: MMM. Normal gums, muc catherine, palate,. NECK: Supple, with no masses. CV: regular rhythm, no murmurs or extra beats, +JVD, RLE +2 pitting edema, pulses strong throughout LUNGS: Diminished breath sounds RLL, +crackles R lobe, NAD, 2LPM O2 ABD: Soft, NT/ND, NBS, no masses or organomegaly. : N/A SKIN: RLE erythema, warm, scabs, no active drainage MSK: KHALIL freely EXT: No clubbing, cyanosis, or edema. NEURO: 5/5 muscle strength and tone. No focal deficits. Results & Data Results & Data Vital Signs (Past 12 Hours) Vital Signs Temp Pulse Resp BP Pulse Ox O2 Del Method 09/20/24 14:32 79 27 H 111/59 L 99 09/20/24 13:41 78 18 99 09/20/24 13:08 77 15 97 09/20/24 12:59 76 09/20/24 12:45 84 16 98 09/20/24 11:48 36.8 C 76 16 152/71 H 97 Room Air Laboratory Results Short CBC 09/20/24 Range/Units 12:07 WBC 9.18 (4.8-10.8) K/ul Hgb 10.5 L (12.0-16.0) g/dl Hct 31.9 L (37.0-47.0) % Plt Count 222 (130-400) K/uL BMP 09/20/24 12:07 Sodium 139 Potassium 4.0 Chloride 102 Carbon Dioxide 28 BUN 39 H Creatinine 1.61 H Glucose 142 H Calcium 8.8 Liver Function 09/20/24 Range/Units 12:07 Total Bilirubin 0.7 (0.2-1.0) mg/dl AST 39 (13-39) U/L ALT 39 (7-52) U/L Alkaline Phosphatase 48 (34-104) U/L Albumin 3.5 (3.4-5.0) gm/dl Diagnostic Findings Chest X-Ray 09/20/24 12:30 XR chest 1V portable CLINICAL HISTORY: sob COMPARISON STUDY: 03/28/2024 FINDINGS: Left atrial appendage occlusion device is present. There is mild cardiomegaly with mild pulmonary vascular congestion. No consolidation or pleural effusion. No pneumothorax. IMPRESSION: Mild CHF. ACT 112: Negative or not required by law. Electronically signed by: Ray Galindo M.D. 09/20/2024 12:52 PM Abdomen/Pelvis CT 09/20/24 13:[address] WITHOUT CONTRAST CT DOSE: 1468.38 mGy.cm HISTORY: Acute generalized abdominal pain with possible bowel obstruction poss obstruc TECHNIQUE: Multiaxial CT images of the abdomen and pelvis were performed without contrast. A dose lowering technique was utilized adhering to the principles of ALARA. COMPARISON STUDY: 10/12/2023 FINDINGS: Lung bases are generally clear. No pneumatosis or pneumoperitoneum. Calcified granulomata of the spleen. Unremarkable pancreas and adrenal glands. Mildly distended gallbladder. The liver is within normal limits. Nonobstructing calculi of the kidneys measure up to 10 mm on the right and 5 mm on the left. Bilateral bilateral perinephric stranding with cortical thinning. No ureteral calculi or hydronephrosis. Air within the nondependent urinary bladder lumen is nonspecific and may be secondary to instrumentation versus infection. Hysterectomy. Atherosclerosis of the aorta. No lymphadenopathy. Tiny hiatal hernia. No bowel obstruction or bowel wall thickening. Mild to moderate colonic fecal retention. Normal appendix. Diastases recti. Unremarkable soft tissues. No acute fracture. Degenerative changes of the spine with severe central canal stenosis at L4-L5. IMPRESSION: 1. No bowel obstruction or bowel wall thickening. 2. Nonobstructing bilateral nephrolithiasis without hydronephrosis. 3. Additional findings as above. ACT 112: Negative or not required by law. The above report was generated using voice recognition software. It may contain grammatical, syntax or spelling errors. Electronically signed by: Miguelito De M.D. 09/20/2024 1:54 PM Code Status & VTE Plan VTE Prophylaxis Plan VTE Prophylaxis will be ordered: Yes Supervising Physician Co-Signing Physician Notes 69-year-old lady with PMH of diastolic CHF, A-fib not on anticoagulation secondary to bleeding history, PSVT, mild TR, HTN, CATHERINE on CPAP, T2DM insulin requiring, ocular myasthenia gravis presents to the ED with complaint of extreme fatigue, nausea, vomiting for 1 day. Patient reports she has nausea and vomiting with activity whenever she gets flaring of her congestive heart failure. She has been able to eat okay with no nausea or vomiting at the time though. She also reports shortness of breath with minimal exertion, she curre ntly ambulates with walker. She denies fever/sore throat/chest pain/belly pain/diarrhea. patient reports usual cough. Patient reports she has been switched from Bumex to torsemide 40 mg daily about a month ago. Patient does have lower extremity swelling with redness, patient denies pain and reports improvement in her redness over the anterior leg in the last few days, denies fever or weakness or painful leg. Patient denies being on antibiotic as an outpatient. CBC fairly her baseline, BMP fairly her baseline. Troponin minimally elevated in 30s. BNP elevated at 239. Acute exacerbation of diastolic CHF: Continue Bumex 1 g IV twice daily, monitor and replete electrolytes, cardiology consult. Telemetry monitoring. Recent echo reviewed. Lower extremity erythema, right greater than right likely in the setting of increased lower extremity swelling in the setting of heart failure. elevated legs, c/w diuresis as above. Minimal warmth, no streaking noted. No tenderness. Will get US RLE Doppler to rule out DVT. Will monitor off of antibiotic as she reports improvement in her erythema significantly in the last several days, she denies being on antibiotic. CATHERINE: Continue with home CPAP. On exam: Patient on 2 L nasal cannula oxygen, RLE > LLE erythema and edema,non tender, no streaking, bibasilar crackles on exam. Rest of the examination as above. Total time spent independently: 30 minutes. I have seen and examined the patient and have discussed the case with the provider above. I agree with the assessment and plan as stated.
[2024-09-20] MEDS: BUMETANIDE 1 MG in SYRINGE 0 ML IV STA (16:49)
--- NOTE | 2024-09-20 17:21 | Ultrasound Report ---
Clinical History: Pain and swelling Technique: Venous ultrasound evaluation was performed utilizing grayscale, color Doppler and wave form evaluation. Images were also obtained with and without compression Findings: The right common femoral, superficial femoral, popliteal, and visualized calf veins demonstrate normal anechoic lumens with full compressibility. Normal flow is seen on color Doppler images. Expected waveforms were produced with augmentation maneuvers There is a small irregularly shaped pocket of fluid in the right groin, measuring 2.2 x 2.1 x 0.9 cm. Impression: 1. No evidence of right leg deep venous thrombosis 2. Small fluid collection in the right groin that could represent a seroma or resolving hematoma ACT 112: Positive. There are findings on this exam that require communication between the performing entity and the patient following Patient Test Result Information Act ([place] ACT 112) guidelines. Electronically signed by Angel Huang 09-20-2024 5:21 PM
[2024-09-20] MEDS ORDERED: ACETAMINOPHEN 325 MG TAB PO PRN (19:02)
[2024-09-20] MEDS ORDERED: MAGNESIUM HYDROXIDE SUSP 30 ML UDC PO PRN (19:02)
[2024-09-20] MEDS ORDERED: ALUMINUM/MAGNESIUM SUSP 30 ML UDC PO PRN (19:02)
[2024-09-20] MEDS ORDERED: GLUCOSE 40% GEL 15 GM TUBE PO PRN (19:02)
[2024-09-20] MEDS ORDERED: GLUCAGON FOR INJ 1 MG VIAL SQ PRN (19:02)
[2024-09-20] MEDS ORDERED: CARBOHYDRATES FOR HYPOGLYCEMIA PO PRN (19:02)
[2024-09-20] MEDS ORDERED: DEXTROSE 50% 50 ML SYRINGE IV PRN (19:02)
[2024-09-20] MEDS ORDERED: GLUCOSE 10 TAB/TUBE PO PRN (19:02)
[2024-09-20] MEDS ORDERED: PHARMACY GLYCEMIC MGMT CONSULT PRN (19:02)
[2024-09-20 19:15] VITALS: RESP 18
[2024-09-20 19:16] LABS: Appearance Urine Clear (Clear); Bacteria Urine Automated 4+ (None Seen); Cast Urine Automated 0-2 /lpf (0-2); Epithelial Cell Urine Auto 0-2 /hpf (0-2); Glucose Urine UA Negative (Negative); RBC Urine Automated 0-2 /hpf (0-2); WBC Urine Automated 21-50 /hpf (0-5)
[2024-09-20] MEDS: INSULIN ASPART PER UNIT CHARGE SC SCH (21:22)
[2024-09-20] MEDS: HEPARIN SOD 5,000 UNIT/0.5 ML VIAL SQ SCH (21:23)
[2024-09-20] MEDS: POLYETHYLENE (MIRALAX) 17 GM PACK PO PRN (21:23)
[2024-09-20] MEDS: DOCUSATE SODIUM 100 MG CAP PO SCH (21:23)
[2024-09-20] MEDS: AMIODARONE 200 MG TAB PO SCH (22:17)
[2024-09-20] MEDS: ATORVASTATIN 20 MG TAB PO SCH (22:17)
[2024-09-21] MEDS: LEVOTHYROXINE SODIUM 50 MCG TABLET PO SCH (05:48)
[2024-09-21 07:00] LABS: Hematocrit (blood only) 32.6 % (37.0-47.0); Hemoglobin 10.4 g/dl (12.0-16.0); Mean Corpuscular Hemoglobin 28.7 pg (25.0-34.0); Mean Corpuscular Volume 89.8 fL (80.0-100.0); Platelet Count 217 K/uL (130-400); RDW Standard Deviation 44.9 fL (36.4-46.3); Red Blood Count 3.63 M/uL (4.20-5.40); White Blood Count 8.70 K/ul (4.8-10.8)
[2024-09-21 07:12] LABS: Anion Gap 7.0 (3-11); Blood Urea Nitrogen 32.0 mg/dl (6-23); Calcium 8.6 mg/dl (8.6-10.3); Carbon Dioxide 31.0 mmol/L (21-32); Chloride 104.0 mmol/L (98-107); Creatinine Clr Calc Pharmacy 47.2 ml/min; Glucose 111.0 mg/dl (70-99(Fasting)); Magnesium 2.0 mg/dl (1.7-2.4); Potassium 3.8 mmol/L (3.5-5.1); Sodium 142.0 mmol/L (136-145)
[2024-09-21 07:43] LABS: Hemoglobin A1C 6.8 % (4.5-5.6)
[2024-09-21] MEDS: VIBEGRON 75 MG TAB PO SCH (08:47)
[2024-09-21] MEDS: ASPIRIN 81 MG ECTAB PO SCH (08:47)
[2024-09-21] MEDS: CYANOCOBALAMIN (B-12) 500 MCG TABLET PO SCH (08:47)
[2024-09-21] MEDS: OXYBUTYNIN CHLORIDE XL 5 MG TABCR PO SCH (08:47)
[2024-09-21] MEDS: CLOPIDOGREL BISULFATE 75 MG TAB PO SCH (08:47)
[2024-09-21] MEDS: CHOLECALCIFEROL 25 MCG (1000 UNITS) TAB PO SCH (08:47)
[2024-09-21] MEDS: BUMETANIDE 1 MG in SYRINGE 0 ML IV SCH (08:48)
[2024-09-21] MEDS ORDERED: LANTUS PER UNIT CHARGE SQ SCH (09:00)
--- NOTE | 2024-09-21 10:35 | Cardiology Consultation ---
Date of Consultation September 21, 2024 Assessment & Plan (1) Weakness: (2) Vomiting: (3) Acute decompensated heart failure: (4) Elevated troponin: (5) Paroxysmal atrial fibrillation: Plan Complex 69-year-old female admitted on September 20, 2024 after presenting to the ER with weakness, emesis with exertion/activity, worsening fluid retention and weight gain. EKG without acute change. High-sensitivity troponin minimally elevated and flat. History, examination, and imaging with mild acute decompensated heart failure. Overall presentation appears multifactorial (CHF exacerbation, possible right lower extremity cellulitis, constipation). Patient intermittently noncompliant with CPAP therapy, likely a contributing factor. Symptomatic paroxysmal atrial fibrillation appears well-controlled on amiodarone. Telemetry benign thus far. Patient's status post September 16, 2024 # 24 mm Watchman implantation Recommendations: * Resting echocardiography requested post Watchman device implant. * Aspirin and clopidogrel required for at least 45 days post implant at which time a JUD will be performed (11/03/2024 at 10 AM) to assess the device * Agree with IV diuresis * Monitor I/O's and metabolic panels daily. * CPAP therapy encouraged * Possible cellulitis evaluation and treatment as per Hospitalist Supervising Physician Co-Signing Physician Notes Patient seen and personally examined. Full assessment plan as per advanced provider above. Care and management discussed and personally endorsed. Complex 69-year-old female admitted with multifactorial complaints, decompensated diastolic heart failure. Patient clinically improving plan as outlined above echocardiogram today assess for pericardial effusion. Begin to mobilize activity in hospital History of Present Illness Reason for Consultation: CHF exacerbation [facility] Soheila WYNNE Attending Physician[facility], Dr. Geoffrey Byrd MD History of Present Illness Patient is a 69-year-old female who presented to [facility] ER on September 20, 2024 with complaints of feeling very weak, emesis with exertion/activity, worsening fluid retention and weight gain. High-sensitivity troponin minimally elevated and flat. EKG without acute change. Chest x-ray with mild CHF. Right greater than left lower extremity edema led to venous duplex which was negative for DVT. Patient followed by [email or web address], intermittently receiving increased doses of torsemide +/- metolazone, unable to contact them with the above as symptoms came on too abruptly. Patient received IV Bumex in the ER and admission with symptomatic benefit. Notes treatment for recurrent lower extremity cellulitis in July, with increased right lower extremity erythema over the last day or 2. Also with recent issues with constipation, receiving Colace and MiraLAX last night with significant bowel movement with resultant improvement in nausea. Intermittently noncompliant with CPAP therapy, utilizing said device about half the time. No chest pain or discomfort. No palpitations. No fevers or chills. No syncope. Past Medical and Surgical History Symptomatic paroxysmal atrial fibrillation [id number] Score 6 points Spontaneous iliopsoas hemorrhage/hematoma in September 2023, discontinuation of anticoagulation at that time Status post September 16, 2024 # 24 mm Watchman implantation at [facility]. Aspirin and clopidogrel prescribed postimplantation, for least 45 days post implant at which time a JUD will be performed (11/03/2024 at 10 AM) to assess the device Diastolic congestive heart failure Hypertension Dyslipidemia Type 2 diabetes mellitus, insulin-dependent Obesity Obstructive sleep apnea, CPAP therapy Stage III chronic kidney disease Endometrial cancer Myasthenia gravis Migraine headaches Hypothyroidism Depression Status post hysterectomy Family History: Mother had sinus node dysfunction status post permanent pacemaker implantation. Father had a history of atrial fibrillation and aortic valve disease. No biological siblings. Social history: Former smoker having quit in 1990 after smoking up to 2 packs/day x 25 years. Alcohol: 2 glasses of wine per day. No illegal/illicit drug use. Lives alone. Sister Carmela. 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 Allergies Allergy/AdvReac Type Severity Reaction Status Date / Time lisinopril Allergy Intermediate Cough Unverified 09/20/24 15:22 penicillin G Allergy Intermediate HIVES Verified 09/20/24 15:22 codeine AdvReac Intermediate VOMITING Verified 09/20/24 15:22 hydrocodone AdvReac Intermediate Vomiting Verified 09/20/24 15:22 Home Medications Medication Instructions Recorded Confirmed Type atorvastatin 20 mg tablet 20 mg PO QAM #30 tabs 10/24/23 09/20/24 Rx bupropion HCl 100 mg tablet,12 hr 100 mg PO QAM #30 ea 10/24/23 09/20/24 Rx sustained-release bupropion HCl 150 mg tablet,12 hr 150 mg PO QAM #30 ea 10/24/23 09/20/24 Rx sustained-release cyanocobalamin (vitamin B-12) 1,000 mcg PO QAM #30 tabs 10/24/23 09/20/24 Rx 1,000 mcg tablet mirabegron 50 mg tablet,extended 50 mg PO QAM #30 tabs 10/24/23 09/20/24 Rx release 24 hr (Myrbetriq) albuterol sulfate 90 mcg/actuation 2 puff inhalation Q4 PRN cough/sob 03/26/24 09/20/24 History aerosol inhaler amiodarone 200 mg tablet 200 mg PO QPM 03/26/24 09/20/24 History benzonatate 100 mg capsule 100 mg PO TID PRN Cough 03/26/24 09/20/24 History cholecalciferol (vitamin D3) 50 50 mcg PO QAM 03/26/24 09/20/24 History mcg (2,000 unit) tablet (Vitamin D3) famotidine 20 mg tablet (Pepcid) 20 mg PO AMPM 03/26/24 09/20/24 History fluoxetine 60 mg tablet 60 mg PO QPM 03/26/24 09/20/24 History fluticasone 250 mcg-salmeterol 50 1 ea inhalation QPM PRN Coughing 03/26/24 09/20/24 History mcg/dose blistr powdr for inhalation insulin aspart U-100 100 unit/mL 0 unit subcut WM 03/26/24 09/20/24 History (3 mL) subcutaneous pen (Novolog FlexPen U-100 Insulin aspart) insulin degludec 100 18 unit subcut QPM 03/26/24 09/20/24 History unit-liraglutide 3.6 mg/mL(3 mL) subcutaneous pen (Xultophy 100/3.6) insulin glargine 100 unit/mL 3 unit subcut PM 03/26/24 09/20/24 History subcutaneous solution (Lantus U-100 Insulin) levothyroxine 50 mcg tablet 50 mcg PO DAILYBB 03/26/24 09/20/24 History ondansetron HCl 4 mg tablet 4 mg PO Q6 PRN Nausea And Vomiting 03/26/24 09/20/24 History polyethylene glycol 3350 17 gram 17 g PO DAILY PRN Constipation 03/26/24 09/20/24 History oral powder packet (Miralax) docusate sodium 100 mg capsule 100 mg PO BID #60 caps 04/01/24 09/20/24 Rx (Colace) aspirin 81 mg tablet,delayed 81 mg PO DAILY 09/20/24 09/20/24 History release clopidogrel 75 mg tablet 75 mg DAILY 09/20/24 09/20/24 History clopidogrel 75 mg tablet 75 mg PO DAILY 09/20/24 09/20/24 History metolazone 10 mg tablet 2.5 mg PO DAILY PRN Weight Gain 09/20/24 09/20/24 History solifenacin 5 mg tablet (Vesicare) 5 mg PO DAILY 09/20/24 09/20/24 History torsemide 40 mg tablet 40 mg PO DAILY 09/20/24 09/20/24 History vitamins A,C,T-nquj-jffkmf 4,296 1 cap PO BID 09/20/24 09/20/24 History mcg-226 mg-90 mg capsule (PreserVision AREDS) Patient History Medical History Anemia Chronic cough 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, 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 Hypothyroidism Myasthenia gravis "EFFECTS ONLY MY VOCAL CORDS" Arthritis Stress incontinence in female GERD (gastroesophageal reflux disease) Hx of cancer of endometrium Idiopathic hypersomnia ADHD Peripheral neuropathy Hx of migraines Irregular heart beats NO CARDS Hx of sleep apnea NO DEVICE Chronic obstructive pulmonary disease H/O Surgical History History of surgery lymph node removed from forehead (benign) Hx of cataract extraction right/left History of esophagogastroduodenoscopy (EGD) H/O colonoscopy with polypectomy H/O total hysterectomy History of tooth extraction Nausea and vomiting after administration of anesthetic agent Family History Other No family history of adverse response to anesthesia Social History Smoking Status: Never smoker Tobacco Type: Cigarettes Second Hand Exposure: No; Do You Dip or Chew Tobacco: No; Hx Alcohol Use: No Hx Substance Use: No Preferred Language: Filipino Communication Ability: Effective 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 Physical Exam Physical Exam: General: A&Ox3. NAD. Elevated BMI. HENT: Normocephalic. Atraumatic. Mouth: Poor dentition. Eyes: PER. Conjunctiva pink, sclera clear. Neck: No overt JVD. Heart: RRR, 60 bpm. Grade II/ systolic ejection murmur. No diastolic murmur. Lungs: Diminished. Decreased. Faint rales. No wheeze. Abdomen: +BS. Soft. Nontender. No masses or organomegaly. Extremities: Right greater than left pretibial erythema, possible early cellulitis. 1+ edema. No cyanosis. No clubbing. Limited neurological examination is without focal deficits. Pulses: Posterior tibial=1/4. Results & Data Vital Signs (Past 12 Hours) Vital Signs Temp Pulse Pulse Resp BP Pulse Ox O2 Del Method 09/21/24 08:14 64 09/21/24 07:21 36.7 C 65 18 102/47 L 93 Room Air 09/21/24 03:33 36.7 C 83 18 116/72 94 CPAP Laboratory Results Cardiac Enzymes 09/20/24 09/20/24 09/20/24 Range/Units 12:07 14:37 20:25 AST 39 (13-39) U/L Troponin I High Sens 32.4 H 36.2 H 36.4 H (0-14) pg/ml B-Natriuretic Peptide 239 H (0-100) pg/ml 09/21/24 Range/Units 01:47 AST (13-39) U/L Troponin I High Sens 35.6 H (0-14) pg/ml B-Natriuretic Peptide (0-100) pg/ml Coagulation 09/20/24 Range/Units 12:07 B-Natriuretic Peptide 239 H (0-100) pg/ml CBC 09/20/24 09/21/24 Range/Units 12:07 05:26 WBC 9.18 8.70 (4.8-10.8) K/ul RBC 3.62 L 3.63 L (4.20-5.40) M/uL Hgb 10.5 L 10.4 L (12.0-16.0) g/dl Hct 31.9 L 32.6 L (37.0-47.0) % Plt Count 222 217 (130-400) K/uL Neut # (Auto) 7.56 H (1.40-6.50) K/uL Lymph # (Auto) 0.66 L (1.20-3.40) K/uL [place] # (Auto) 0.78 H (0.11-0.59) K/uL Eos # (Auto) 0.09 (0.00-0.50) K/uL Baso # (Auto) 0.04 (0.00-0.20) K/uL Comprehensive Metabolic Panel 09/20/24 09/21/24 Range/Units 12:07 05:26 Sodium 139 142 (136-145) mmol/L Potassium 4.0 3.8 (3.5-5.1) mmol/L Chloride 102 104 (98-107) mmol/L Carbon Dioxide 28 31 (21-32) mmol/L BUN 39 H 32 H (6-23) mg/dl Creatinine 1.61 H 1.36 H (0.6-1.2) mg/dl Glucose 142 H 111 H (70-99(Fasting)) mg/dl Calcium 8.8 8.6 (8.6-10.3) mg/dl AST 39 (13-39) U/L ALT 39 (7-52) U/L Alkaline Phosphatase 48 (34-104) U/L Total Protein 6.5 (6.0-8.3) gm/dl Albumin 3.5 (3.4-5.0) gm/dl Intake and Output 09/20/24 09/21/24 09/21/24 22:59 06:59 14:59 Intake Total 240 / 440 200 / 440 Output Total 1200 / 1501 301 / 1501 Balance -960 / -1061 -101 / -1061 Intake: Oral 240 / 440 200 / 440 Output: Urine 650 / 650 Urine Amount (Catheter) 550 / 850 300 / 850 External 550 / 850 300 / 850 # Bowel Movements Other: Weight 122.561 kg 122.016 kg Weight Measurement Method [facility] Built in [facility] Diagnostic Findings Admission EKG with normal sinus rhythm at 77 bpm, with low voltage QRS, nonspecific T wave abnormality. QTc normal, 463 ms. Chest x-ray on admission interpreted by the radiologist as revealing mild cardiomegaly with mild pulmonary vascular congestion. No consolidation or pleural effusion. No pneumothorax. Left atrial appendage occlusion device noted. Telemetry: Sinus rhythm throughout, heart rates predominantly in the 60s and 70s. No atrial fibrillation. No significant bradycardia or pauses. PG Care Time/CCT Total # of Minutes Spent Total Time Spent with Patient: Total time spent is greater than 50% in coordination of care (as documented) at patient's floor/unit and/or counseling patient: Coding Level of Care Code 10192 INT INP/OBS CARE 3/75MIN Diagnoses Weakness R53.1 Vomiting R11.2 Nausea presence: with nausea Vomiting type: unspecified Acute decompensated heart failure I50.9 Elevated troponin R79.89 Paroxysmal atrial fibrillation I48.0 (2) Vomiting Nausea presence: with nausea Vomiting type: unspecified Qualified Code(s): R11.2 - Nausea with vomiting, unspecified
[2024-09-21] MEDS ORDERED: LANTUS PER UNIT CHARGE SQ ONE (12:19)
--- NOTE | 2024-09-21 12:22 | Hospitalist Progress Note ---
Date of Service September 21, 2024 Assessment & Plan (1) Acute exacerbation of CHF (congestive heart failure): Plan: per admitting service notes with addendum: Patient is a 69 year old F with a past medical history of insulin-dependent DM Type II, dyslipidemia, hypothyroidism, diastolic heart failure, paroxysmal AFib, HTN, CKD Stage III, depression presenting with vomiting and shortness of breath. HF managed with diuretics OP with a recent increase in Torsemide dosing 1-2 weeks ago. Shortness of breath with minimal exertion began to worsen 1 week ago and she feels this is related to fluid overload. Nausea and vomiting is an ongoing concern and reportedly an associated symptom when fluid overloaded. She did not take her meds this morning due to nausea. Also with lightheadedness and sometimes dizzy. #Acute on chronic CHF exacerbation #Elevated trop * Admit to Med Tele for further management of HF exacerbation * Worsening shortness of breath with exertion at home while on Torsemide- dose increased to 40 mg 1-2 weeks ago. * Trop elev 36.2--> will trend Q6H * Hold home Torsemide and Metalozone; Bumex given in ED and continue BID dosing to start in AM * Cardiology consult ordered- last Echo in Mar 2024 limited study; LVEF 55-60%; mild tricuspid regurg, pulmonary artery pressure ~44mmHg Grade II Diastolic dysfunction * RLE edema on exam- Doppler with no evidence DVT; Small fluid collection in the right groin that could represent a seroma or resolving hematoma * EKG as needed for CP * PT/OT when appropriate 09/21 negative 1L so far continue IV Bumex BID Cardiology service on board #RLE Cellulitis start Cephalexin QID Probiotics #Paroxysmal Afib s/p Watchman procedure * EKG here showing NSR with vent rate 77bpm * Continue home amiodarone for rate control * On Aspirin and Plavix; history of bleed with Eliquis in past * Tele monitoring * Mag/Phos with AM labs #Hypertension * BP controlled 119/56; Goal <140/90 * History of orthostatic hypotension per external chart review * Torsemide on hold. #CATHERINE * CPAP at home without oxygen requirement * CPAP ordered while inpatient-suspect CATHERINE contributory to current HF exacer # CKD Stage III * Cr 1.4 in July and steadily increased to 1.8 OP * Cr 1.6 today * Trend with AM labs while on diuretic tx #Diabetes Mellitis Type II * Hold home long-acting insulin combo (degludec-liraglutide) * SSI while inpatient; Goal BSG 110-140; Correction factor 45 Carb ratio 16 * Lantus 8 units while inpatient- adjust as needed * Accucheck ACHS #Hyperlipidemia * Continue home statin DVT Ppx: Heparin-- hold as patient has history of iliopsoas hematoma last year while on ELiquis SCDs contraindicated with edema and cellulitis early ambulation encouraged, patient eager to ambulate Code status: Full PCP: Dr. Aviva Rossi Dispo: pending lives at home PT eval (2) Elevated troponin: (3) Paroxysmal atrial fibrillation: (4) Hypertension: (5) CATHERINE (obstructive sleep apnea): (6) Diabetes mellitus, type 2: (7) Hyperlipidemia: Admission and Anticipated Discharge Date Admission Date: September 20, 2024 Subjective ff up for chf exacerbation, etc seen resting in bed, comfortable states she feels better today breathing is better no abdominal pain, nausea/vomiting denies Lower ext pain no fever/chills no other symptoms Review of Systems Review of Systems: all noted and negative except for above Physical Exam Physical Exam: General- oriented x 3, not in distress, speaks in sentences with no effort or accessory muscle use Eyes- anicteric Neck- no JVD Lungs- faint rales at the bases no wheezing Heart- normal rate, regular rhythm; no murmurs Abdomen- normal bowel sounds, nondistended, soft, nontender Extremities- RLE: mild edema, moderate erythema and warmth, no tenderness LLE: mild edema, mild erythema, no warmth/tenderness Neuro- alert, oriented x 3; no gross focal neurologic deficits Skin- warm & dry Results & Data Results & Data Vital Signs (Past 12 Hours) Vital Signs Temp Pulse Pulse Resp BP Pulse Ox O2 Del Method 09/21/24 08:14 64 09/21/24 07:21 36.7 C 65 18 102/47 L 93 Room Air 09/21/24 03:33 36.7 C 83 18 116/72 94 CPAP all noted and reviewed including below
[2024-09-21] MEDS: ADVANCED PROBIOTIC 625 MG CAPSULE PO SCH (13:41)
--- NOTE | 2024-09-21 14:05 | Pharmacy Report ---
Pharmacy Glycemic Short Note 2 - Date of Service September 21, 2024 - Glycemic Short BSG Results (Last 24 hours): 09/20/24 09/21/24 09/21/24 20:21 05:26 08:00 Glucose 111 H POC Glucose 100 H 122 H 09/21/24 12:10 Glucose POC Glucose 168 H OUTPATIENT ANTIDIABETIC REGIMEN: * Xultophy 18 units daily, Lantus 3 units qPM, Novolog SSI ASSESSMENT: * 69 year old admitted with shortness of breath. Type 2 diabetic - pharmacy consulted for glycemic management. Outpatient regimen confirmed with patient. Plan to continue with conservative novolog scale, will add on low dose basal insulin today per patient request. Reasonable to trial low dose basal until PO intake established and can titrate as necessary. PLAN FOR INPATIENT GLYCEMIC CONTROL: * Hold outpatient oral diabetes medications * Basal insulin * Lantus 8 units once daily * Bolus insulin * NovoLog per scale ACHS or Q6hrs while NPO * Goal Range: Low 110 mg/dL - High 140 mg/dL * Correction Factor: 25 mg/dL/unit * Nutritional / Prandial insulin per carb ratio of 1 unit per 15 grams CHO consumed
[2024-09-21] MEDS: LANTUS PER UNIT CHARGE SQ SCH (14:28)
--- NOTE | 2024-09-21 14:51 | Electrocardiogram Report ---
Test Reason : Blood Pressure : */* mmHG Vent. Rate : 77 BPM Atrial Rate : 77 BPM P-R Int : 146 ms QRS Dur : 92 ms QT Int : 410 ms P-R-T Axes : 17 24 39 degrees QTcB Int : 463 ms Normal sinus rhythm Low voltage QRS Nonspecific T wave abnormality Abnormal ECG When compared with ECG of 25-Mar-2024 20:15, No significant change was found Confirmed by Antonino Kelly ([id number]) on 09/21/2024 2:50:40 PM Referred By: REFERRED SELF Confirmed By: Antonino Kelly
[2024-09-22] MEDS: ONDANSETRON INJ 2 MG/ML 2 ML VIAL IV PRN (02:20)
[2024-09-22 07:17] LABS: Hematocrit (blood only) 32.5 % (37.0-47.0); Hemoglobin 10.3 g/dl (12.0-16.0); Mean Corpuscular Hemoglobin 28.2 pg (25.0-34.0); Mean Corpuscular Volume 89.0 fL (80.0-100.0); Platelet Count 192 K/uL (130-400); RDW Standard Deviation 44.1 fL (36.4-46.3); Red Blood Count 3.65 M/uL (4.20-5.40); White Blood Count 7.61 K/ul (4.8-10.8)
[2024-09-22 07:35] LABS: Anion Gap 6.0 (3-11); Blood Urea Nitrogen 32.0 mg/dl (6-23); Calcium 8.5 mg/dl (8.6-10.3); Carbon Dioxide 31.0 mmol/L (21-32); Chloride 101.0 mmol/L (98-107); Creatinine Clr Calc Pharmacy 45.2 ml/min; Glucose 128.0 mg/dl (70-99(Fasting)); Magnesium 1.8 mg/dl (1.7-2.4); Potassium 4.0 mmol/L (3.5-5.1); Sodium 138.0 mmol/L (136-145)
[2024-09-22] MEDS ORDERED: LANTUS PER UNIT CHARGE SQ SCH (09:00)
--- NOTE | 2024-09-22 10:14 | Cardiology Progress Note ---
Date of Service September 22, 2024 Assessment & Plan (1) Weakness: (2) Vomiting: (3) Acute decompensated heart failure: (4) Elevated troponin: (5) Paroxysmal atrial fibrillation: Plan Complex 69-year-old female admitted on September 20, 2024 after presenting to the ER with weakness, emesis with exertion/activity, worsening fluid retention and weight gain. EKG without acute change. High-sensitivity troponin minimally elevated and flat. History, examination, and imaging with mild acute decompensated heart failure. Overall presentation appears multifactorial (CHF exacerbation, possible right lower extremity cellulitis, constipation). Patient intermittently noncompliant with CPAP therapy, likely a contributing factor. Symptomatic paroxysmal atrial fibrillation appears well-controlled on amiodarone. Telemetry benign. Patient's status post September 16, 2024 # 24 mm Watchman implantation Recommendations: * Transition back to patient's prior to arrival diuretic regimen * CPAP therapy encouraged all night, every night. * Aspirin and clopidogrel required for at least 45 days post implant at which time a JUD will be performed (11/03/2024 at 10 AM) to assess the device * SBE prophylaxis indicated post Watchman, as discussed * Please contact with any cardiac questions or concerns * Outpatient cardiology follow-up Admission and Anticipated Discharge Date Admission Date: September 20, 2024 Supervising Physician Co-Signing Physician Notes Patient was seen and personally examined. Full assessment and plan as outlined by advanced provider as above. Clinically improved after treatment of mild decompensated heart failure, multifactorial. Stable from cardiac standpoint for discharge with recommendations as above Subjective Patient seen and examined. Chart, medications, telemetry reviewed. Feels better overall. Anxious for discharge. Breathing improved. No chest pain or palpitations. CPAP utilized last night. Did have some mild transient periumbilical pain overnight, resolved, without nausea or vomiting. Review of Systems Review of Systems: Complete review of systems otherwise as stated above, negative, or noncontributory. Physical Exam Physical Exam: General: A&Ox3. NAD. Elevated BMI. HENT: Normocephalic. Atraumatic. Mouth: Poor dentition. Eyes: PER. Conjunctiva pink, sclera clear. Neck: No overt JVD. Heart: RRR, 60 bpm. Grade II/ systolic ejection murmur. No diastolic murmur. Lungs: Diminished. Decreased. Faint rales. No wheeze. Abdomen: +BS. Soft. Nontender. No masses or organomegaly. Extremities: Right greater than left pretibial erythema, possible early cellulitis. 1+ edema. No cyanosis. No clubbing. Limited neurological examination is without focal deficits. Pulses: Posterior tibial=1/4. Results & Data Vital Signs (Past 12 Hours) Vital Signs Temp Pulse Pulse Resp BP BP Pulse Ox 09/22/24 09:35 65 09/22/24 08:00 09/22/24 07:30 36.9 C 60 18 103/62 96 09/22/24 02:20 36.3 C L 69 18 116/70 95 09/21/24 22:56 36.3 C L 61 18 127/76 96 O2 Del Method 09/22/24 09:35 09/22/24 08:00 Room Air 09/22/24 07:30 Room Air 09/22/24 02:20 Room Air 09/21/24 22:56 Room Air Laboratory Results CBC 09/22/24 Range/Units 06:41 WBC 7.61 (4.8-10.8) K/ul RBC 3.65 L (4.20-5.40) M/uL Hgb 10.3 L (12.0-16.0) g/dl Hct 32.5 L (37.0-47.0) % Plt Count 192 (130-400) K/uL Comprehensive Metabolic Panel 09/22/24 Range/Units 06:41 Sodium 138 (136-145) mmol/L Potassium 4.0 (3.5-5.1) mmol/L Chloride 101 (98-107) mmol/L Carbon Dioxide 31 (21-32) mmol/L BUN 32 H (6-23) mg/dl Creatinine 1.42 H (0.6-1.2) mg/dl Glucose 128 H (70-99(Fasting)) mg/dl Calcium 8.5 L (8.6-10.3) mg/dl Intake and Output 09/21/24 09/22/24 09/22/24 22:59 06:59 14:59 Intake Total 100 / 220 120 / 220 Balance 100 / 220 120 / 220 Intake: Oral 100 / 220 120 / 220 Other: # Unmeasured Voids 2 1 Weight 122 kg Weight Measurement Method Built in [facility] Diagnostic Findings Telemetry: Sinus rhythm throughout, heart rate predominantly in the 60s and 70s. September 21, 2024 TTE ([facility], Dr. Thibodeaux): No pericardial effusion. Normal LV size. Moderate concentric LVH. Normal LV wall motion. LVEF 65 to 70%. Trace tricuspid regurgitation. RVSP elevated at 30 to 40 mmHg. PG Care Time/CCT Total # of Minutes Spent Total Time Spent with Patient: Total time spent is greater than 50% in coordination of care (as documented) at patient's floor/unit and/or counseling patient: Coding Level of Care Code 83573 SUB INP/OBS CARE 3/50MIN Diagnoses Weakness R53.1 Vomiting R11.2 Nausea presence: with nausea Vomiting type: unspecified Acute decompensated heart failure I50.9 Elevated troponin R79.89 Paroxysmal atrial fibrillation I48.0 (2) Vomiting Nausea presence: with nausea Vomiting type: unspecified Qualified Code(s): R11.2 - Nausea with vomiting, unspecified
--- NOTE | 2024-09-22 12:37 | Discharge Summary ---
Date of Service September 22, 2024 Admission HPI Per Admitting Provider Patient is a 69 year old F with a past medical history of insulin-dependent DM Type II, dyslipidemia, hypothyroidism, diastolic heart failure, paroxysmal AFib, HTN, CKD Stage III, depression presenting with vomiting and shortness of breath. HF managed with diuretics OP with a recent increase in Torsemide dosing 1-2 weeks ago. Shortness of breath with minimal exertion began to worsen 1 week ago and she feels this is related to fluid overload. Nausea and vomiting is an ongoing concern and reportedly an associated symptom when fluid overloaded. She did not take her meds this morning due to nausea. Also with lightheadedness and sometimes dizzy. Denies fever, chills, weight loss, weakness, headache, cognitive changes, vision/hearing changes, chest pain, difficulty breathing, urinary concerns, diarrhea, joint swelling/pain, ambulation difficulty, skin rashes, lesions, bleeding, bruising. In the emergency department, patient was hemodynamically stable with a 2LPM oxygen need mostly when sleeping. History of CATHERINE. EKG showing NSR with no ST elevation, vent rate 77 bpm, QTc 463. Troponin elevated 36.2. BNP elev at 239. Chest x-ray showing mild cardiomegaly with mild pulmonary vascular congestion; No consolidation or pleural effusion; No pneumothorax. Unilateral RLE swelling present per patient report, this is a chronic issue and looks better than it has been recently. Abdominal and pelvis CT shows some chronic issues, no bowel obstruction or acute surgical process. Patient had Watchman procedure last at [facility] ; on Aspirin and Plavix post-op. History of serious bleeding in the past when on Eliquis. Doppler RLE obtained for unilateral LE swelling showing no evidence of right leg deep venous thrombosis and a small fluid collection in the right groin that could represent a seroma or resolving hematoma. As per external chart review, patient was seen by PCP on 09/07/24 and had weight gain, was on torsemide 40 mg and advised to double the dose if weight increases significantly. She did not take any additional diuretics at home for current condition. Also noted to have low blood pressure readings at times, with some readings in the high 80s/50s per patient report. Orthostatic blood pressures were checked during PCP visit and were stable. History obtained primarily from the patient and via hospitalization record. External chart review obtained from [facility]. Admission Exam Per Admitting Provider WEIGHT/BMI reviewed. GEN: Obese, well-developed, NAD. PSYCH: Good Judgment. AOx3. Normal memory, mood, and affect. HEENT -Head: NC/AT; -Eyes: PERRL, EOMI. No discharge or redness; -Ears: External ears are normal. -Nose: Normal nares. -Mouth and throat: MMM. Normal gums, mucosa, palate,. NECK: Supple, with no masses. CV: regular rhythm, no murmurs or extra beats, +JVD, RLE +2 pitting edema, pulses strong throughout LUNGS: Diminished breath sounds RLL, +crackles R lobe, NAD, 2LPM O2 ABD: Soft, NT/ND, NBS, no masses or organomegaly. : N/A SKIN: RLE erythema, warm, scabs, no active drainage MSK: KHALIL freely EXT: No clubbing, cyanosis, or edema. NEURO: 5/5 muscle strength and tone. No focal deficits. Principal Diagnosis Acute decompensated heart failure, diastolic Cellulitis UTI Discharge Exam General- oriented x 3, not in distress, speaks in sentences with no effort or accessory muscle use Eyes- anicteric Neck- no JVD Lungs- faint rales at the bases no wheezing Heart- normal rate, regular rhythm; syst. murmur Abdomen- normal bowel sounds, nondistended, soft, nontender Extremities- RLE: edema resolved/improved, mild erythema, improved, no tenderness LLE: edema resolved/improved, mild erythema, no warmth/tenderness Neuro- alert, oriented x 3; no gross focal neurologic deficits Skin- warm & dry Discharge Data Allergies Allergy/AdvReac Type Severity Reaction Status Date / Time lisinopril Allergy Intermediate Cough Unverified 09/20/24 15:22 penicillin G Allergy Intermediate HIVES Verified 09/20/24 15:22 codeine AdvReac Intermediate VOMITING Verified 09/20/24 15:22 hydrocodone AdvReac Intermediate Vomiting Verified 09/20/24 15:22 Consultations 09/20/24 14:47 ED Decision to Admit Stat 09/20/24 19:02 Consult Cardiology Routine Ordered Studies 09/20/24 13:25 CT abd pelvis wo con Stat FINDINGS: Lung bases are generally clear. No pneumatosis or pneumoperitoneum. Calcified granulomata of the spleen. Unremarkable pancreas and adrenal glands. Mildly distended gallbladder. The liver is within normal limits. Nonobstructing calculi of the kidneys measure up to 10 mm on the right and 5 mm on the left. Bilateral bilateral perinephric stranding with cortical thinning. No ureteral calculi or hydronephrosis. Air within the nondependent urinary bladder lumen is nonspecific and may be secondary to instrumentation versus infection. Hysterectomy. Atherosclerosis of the aorta. No lymphadenopathy. Tiny hiatal hernia. No bowel obstruction or bowel wall thickening. Mild to moderate colonic fecal retention. Normal appendix. Diastases recti. Unremarkable soft tissues. No acute fracture. Degenerative changes of the spine with severe central canal stenosis at L4-L5. IMPRESSION: 1. No bowel obstruction or bowel wall thickening. 2. Nonobstructing bilateral nephrolithiasis without hydronephrosis. 3. Additional findings as above. 09/20/24 16:03 US venous doppler LE RT Urgent Findings: The right common femoral, superficial femoral, popliteal, and visualized calf veins demonstrate normal anechoic lumens with full compressibility. Normal flow is seen on color Doppler images. Expected waveforms were produced with augmentation maneuvers There is a small irregularly shaped pocket of fluid in the right groin, measuring 2.2 x 2.1 x 0.9 cm. Impression: 1. No evidence of right leg deep venous thrombosis 2. Small fluid collection in the right groin that could represent a seroma or resolving hematoma Hospital Course (1) Acute exacerbation of CHF (congestive heart failure): Patient is a 69 year old F with a past medical history of insulin-dependent DM Type II, dyslipidemia, hypothyroidism, diastolic heart failure, paroxysmal AFib, HTN, CKD Stage III, depression presenting with vomiting and shortness of breath. HF managed with diuretics OP with a recent increase in Torsemide dosing 1-2 weeks ago. Shortness of breath with minimal exertion began to worsen 1 week ago and she feels this is related to fluid overload. Nausea and vomiting is an ongoing concern and reportedly an associated symptom when fluid overloaded. She did not take her meds this morning due to nausea. Also with lightheadedness and sometimes dizzy. #Acute on chronic CHF exacerbation #Elevated trop * Admit to Med Tele for further management of HF exacerbation * Worsening shortness of breath with exertion at home while on Torsemide- dose increased to 40 mg 1-2 weeks ago. * Trop elev 36.2--> will trend Q6H * Hold home Torsemide and Metalozone; Bumex given in ED and continue BID dosing to start in AM * Cardiology consult ordered- last Echo in Mar 2024 limited study; LVEF 55-60%; mild tricuspid regurg, pulmonary artery pressure ~44mmHg Grade II Diastolic dysfunction * RLE edema on exam- Doppler with no evidence DVT; Small fluid collection in the right groin that could represent a seroma or resolving hematoma * EKG as needed for CP * PT/OT when appropriate 09/21 negative 1L so far continue IV Bumex BID Cardiology service on board 09/22 Per cardiology - DC on home diuretics #RLE Cellulitis start Cephalexin QID Probiotics #Paroxysmal Afib s/p Watchman procedure * EKG here showing NSR with vent rate 77bpm * Continue home amiodarone for rate control * On Aspirin and Plavix; history of bleed with Eliquis in past * Tele monitoring * Mag/Phos with AM labs #Hypertension * BP controlled 119/56; Goal <140/90 * History of orthostatic hypotension per external chart review * Torsemide on hold -> resume on DC #CATHERINE * CPAP at home without oxygen requirement * CPAP ordered while inpatient-suspect CATHERINE contributory to current HF exacer # CKD Stage III * Cr 1.4 in July and steadily increased to 1.8 OP * Cr 1.4 today #Diabetes Mellitis Type II * Hold home long-acting insulin combo (degludec-liraglutide) -> resume on DC * SSI while inpatient; Goal BSG 110-140; Correction factor 45 Carb ratio 16 * Lantus 8 units while inpatient- adjust as needed * Accucheck ACHS #Hyperlipidemia * Continue home statin (2) Elevated troponin: (3) Paroxysmal atrial fibrillation: (4) Hypertension: (5) CATHERINE (obstructive sleep apnea): (6) Diabetes mellitus, type 2: (7) Hyperlipidemia: Total Time Total Time Spent Total Time Spent (In Minutes): 40 Discharge Plan Discharge Items Patient Disposition: Home - Self-Care Reason For Visit: CHF EXACERBATION Discharge Diagnosis: Acute decompensated heart failure, diastolic Cellulitis UTI Condition on Discharge: Fair Activity: Per Instructions section Non-emergency contact: Primary Care Provider and Laborer/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 Follow up with your primary care doctor within 1 week. Finish antibiotic course as prescribed. Pending Studies at Discharge: No Stand-Alone Forms: My [facility] [employer], Smoking Cessation Medications and DC Order Prescriptions: New Advanced Probiotic 625 mg (10 billion cell) Capsule 1 cap PO DAILY Qty: 7 0RF cephalexin 500 mg Capsule 500 mg PO QID 9 Days Qty: 36 0RF Continued amiodarone 200 mg tablet 200 mg PO QPM Taper: Taper, Blank 200 mg TWICE A DAY for 23 Days 200 mg DAILY for 30 Days famotidine [Pepcid] 20 mg tablet 20 mg PO AMPM cholecalciferol (vitamin D3) [Vitamin D3] 50 mcg (2,000 unit) tablet 50 mcg PO QAM fluoxetine 60 mg tablet 60 mg PO QPM levothyroxine 50 mcg tablet 50 mcg PO DAILYBB fluticasone propion-salmeterol 250-50 mcg/dose blister with device 1 ea INHALATION QPM PRN (Reason: Coughing) polyethylene glycol 3350 [Miralax] 17 gram powder in packet 17 g PO DAILY PRN (Reason: Constipation) Xultophy 100/3.6 100 unit-3.6 mg /mL (3 mL) insulin pen 18 unit SUBCUT QPM Rx Instructions: per pharmacy -up to 50 units daily per titration. insulin glargine [Lantus U-100 Insulin] 100 unit/mL Solution 3 unit SUBCUT PM insulin aspart U-100 [Novolog FlexPen U-100 Insulin] 100 unit/mL (3 mL) insulin pen 0 unit SUBCUT WM Rx Instructions: sliding scale albuterol sulfate 90 mcg/actuation HFA aerosol inhaler 2 puff INHALATION Q4 PRN (Reason: cough/sob) ondansetron HCl 4 mg Tablet 4 mg PO Q6 PRN (Reason: Nausea And Vomiting) benzonatate 100 mg capsule 100 mg PO TID PRN (Reason: Cough) docusate sodium [Colace] 100 mg capsule 100 mg PO BID Qty: 60 0RF aspirin 81 mg Tablet,Delayed Release (Dr/Ec) 81 mg PO DAILY metolazone 10 mg Tablet 2.5 mg PO DAILY PRN (Reason: Weight Gain) Rx Instructions: Take Torsemide 40mg by mouth once daily, may take up to 80mg daily for weight gain x 3 days. If not resolved, add Metolazone 10mg once daily solifenacin [Vesicare] 5 mg Tablet 5 mg PO DAILY PreserVision AREDS 4,296 mcg-226 mg-90 mg Capsule 1 cap PO BID torsemide 40 mg Tablet 40 mg PO DAILY MDD 80mg/24hr Rx Instructions: Take 40mg by mouth once daily, may take up to 80mg daily for weight gain x 3 days. If not resolved, add Metolazone 10mg once daily clopidogrel 75 mg Tablet 75 mg DAILY clopidogrel 75 mg Tablet 75 mg PO DAILY bupropion HCl 150 mg Tablet Sustained-Release 12 Hr 150 mg PO QAM Qty: 30 0RF Rx Instructions: TOTAL DOSE 250 MG--TAKES WITH 100 MG TAB. atorvastatin 20 mg Tablet 20 mg PO QAM Qty: 30 0RF cyanocobalamin (vitamin B-12) 1,000 mcg Tablet 1,000 mcg PO QAM Qty: 30 0RF bupropion HCl 100 mg Tablet Sustained-Release 12 Hr 100 mg PO QAM Qty: 30 0RF Rx Instructions: TOTAL DOSE 250 MG--TAKES WITH 150 MG TAB. mirabegron [Myrbetriq] 50 mg Tablet Extended Release 24 Hr 50 mg PO QAM Qty: 30 0RF Discharge Orders: Discharge Order- CHF (Routine); Ordered 09/22/24 Ordered By: Woo Franco/Other Patient Handouts: Managing Type 2 Diabetes Admission Data Admit Date/Time: 09/20/24 15:45 Attending Provider: Woo Jean Baptiste Admit Provider: Michelle Owen Primary Care Provider: Aviva Rossi Other Providers: Michelle Owen; Keaton Thibodeaux; IRB Approved Study,[place]; [place] [facility]
[2024-09-22 15:42] VITALS: BP 91/58; PULSE 70; TEMP 98.1; O2SAT 96
[2024-09-22] MEDS ORDERED: ONDANSETRON INJ 2 MG/ML 2 ML VIAL IV ONE (18:23)
== END 2024-09-22 18:41 | disposition home health service (06) | DRG 291 ==
LOC: ED 11:48 → EDINP 15:45 → SUATTDRO 15:45 → 2N 19:00

== ENCOUNTER 2024-11-18 10:09 | Inpatient (IN) ==
[2024-11-18] MEDS ORDERED: SODIUM CHLORIDE 0.9% 100 ML IV PRN ×2 (10:22→14:26)
--- NOTE | 2024-11-18 10:28 | Emergency Department Note ---
Impression & Plan Dizziness, Anemia, GI bleed, CRF (chronic renal failure) ED Provider Note NAME: TORO BRADEN AGE: 69 SEX: F : 1955 ARRIVES VIA: Ambulance INFORMANT: [Patient][ems] ED PROVIDER(S): [Gaston Wyman MD] CHIEF COMPLAINT: Doctor referred HISTORY OF PRESENT ILLNESS: The patient is a 69-year-old female who presents to the ER with some dizziness and an outpatient hemoglobin value of 6.9. The patient has noticed some darker stools but no diarrhea. No abdominal pain, no shortness of breath or chest pain. She does feel dizzy though to stand and to move around. The patient is on aspirin and Plavix, no other blood thinning agents. She denies any history of previous GI bleeding. PMHx/PSHx/Social Hx: See Below PHYSICAL EXAM: GENERAL: Patient is in no acute distress. HEENT: No acute trauma, normocephalic atraumatic, mucous membranes moist, no nasal congestion. NECK: No stridor, no adenopathy, no meningismus, trachea is midline. LUNGS: Clear to auscultation bilaterally when listening anterior, no wheeze, no rhonchi, breath sounds equal. HEART: Subtle systolic murmur, regular rate and rhythm. ABDOMEN: Soft, nontender, no peritonitis. Obese. EXTREMITIES: No cyanosis, full range of motion of all the joints without pain or difficulty. NEUROLOGIC: Oriented x 3, no acute motor or sensory deficits, no focal weakness. SKIN: No jaundice, no diaphoresis. Somewhat pale. Rectal: Scant stool in the rectal vault but the test is heme positive. DIFFERENTIAL DIAGNOSIS: Upper or lower GI bleeding, anemia, dehydration, electrolyte imbalance, UTI, retroperitoneal hematoma, among others. EMERGENCY DEPARTMENT PROCEDURES: MEDICAL DECISION MAKING: There is no leukocytosis. The patient is anemic with a hemoglobin of 7.3. I did perform a rectal exam, the stool was heme positive. There was a normal platelet count. No bandemia. No coagulopathy. There was evidence for chronic renal failure with a an elevation to the creatinine at 1.66. No electrolyte abnormality in need of emergent correction. No concerning liver enzyme elevation. No evidence for pancreatitis. ECG shows a sinus rhythm, no ST elevation. Cardiac enzyme testing x 1 is not consistent with acute cardiac injury. COVID test returned negative. Chest x-ray did not show pneumonia or CHF. Abdominal and pelvis CT showed no acute surgical process, no source for GI hemorrhage. The bladder was somewhat distended. On exam, the patient appeared comfortable. She was not hypotensive or toxic. Patient received IV saline, 500 cc. She was given IV Protonix, IV Pepcid. Patient likely has a GI bleed. She feels dizzy, she is anemic, her stool is heme positive. As the patient is not hypotensive, as her hemoglobin is over 7, I have not ordered for a stat packed red blood cell transfusion. The patient though has signed consent for a transfusion if required. The patient understands the need for a hospital stay and further workup. I suspect she will require a packed red blood cell transfusion during this hospitalization. I did speak with case management, the on-call hospitalist was consulted. Prior/Outside records/notes reviewed: Today's EMS notes describing her presentation and transport at this hospital. ECG per my interpretation: Indication was GI bleeding. The ECG shows a normal sinus rhythm with a rate of 72. There is some nonspecific ST change. There is no acute ST elevation, no PVCs. The QTc is 479. Continuous Cardiac Monitoring per my interpretation: An order was placed for continuous cardiac monitoring. The monitor shows a rate of 72 with normal sinus rhythm. Imaging/x-ray results per my interpretation: Chest x-ray does not show free air or pneumonia. There is no CHF. Chronic Medical/Social conditions affecting care: Advanced age. Care/Management discussed with: Case management, the on-call hospitalist. Level of care consideration(s): After review of the information above and other included data: --I believe the patient requires escalation of care to admission DISPOSITION: Admission Past Med/Surg History Problem List CRF (chronic renal failure) (Acute) GI bleed (Acute) Anemia (Acute) Dizziness (Acute) Acute decompensated heart failure CATHERINE (obstructive sleep apnea) Weakness (Acute) Elevated troponin (Acute) Vomiting (Acute) CHF (congestive heart failure) (Acute) SOB (shortness of breath) (Acute) Ambulatory dysfunction Asymptomatic hypertensive urgency Acute kidney injury superimposed on chronic kidney disease (Acute) Acute exacerbation of CHF (congestive heart failure) (Acute) Atrial fibrillation with RVR Right groin pain (Acute) JOHN (acute kidney injury) (Acute) Hematoma of right iliopsoas muscle (Acute) UTI (urinary tract infection) (Acute) Paroxysmal atrial fibrillation Generalized weakness (Acute) Hyperlipidemia Hypertension Diabetes mellitus, type 2 dexcom intact Medical History Anemia Chronic cough 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, 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 Hypothyroidism Myasthenia gravis "EFFECTS ONLY MY VOCAL CORDS" Arthritis Stress incontinence in female GERD (gastroesophageal reflux disease) Hx of cancer of endometrium Idiopathic hypersomnia ADHD Peripheral neuropathy Hx of migraines Irregular heart beats NO CARDS Hx of sleep apnea NO DEVICE Chronic obstructive pulmonary disease H/O Surgical History History of surgery lymph node removed from forehead (benign) Hx of cataract extraction right/left History of esophagogastroduodenoscopy (EGD) H/O colonoscopy with polypectomy H/O total hysterectomy History of tooth extraction Nausea and vomiting after administration of anesthetic agent Family History Other No family history of adverse response to anesthesia Social History Smoking Status: Never smoker Tobacco Type: Cigarettes Second Hand Exposure: No; Do You Dip or Chew Tobacco: No; Hx Alcohol Use: No Hx Substance Use: No Preferred Language: Portuguese Communication Ability: Effective Stock Mixer Required: No Beliefs That Will Affect Care: None Current Living Situation: Family Feels Safe at Home: Yes Assistive Devices: Cane and Walker Allergies Allergies Allergy/AdvReac Type Severity Reaction Status Date / Time lisinopril Allergy Intermediate Cough Unverified 09/20/24 15:22 penicillin G Allergy Intermediate HIVES Verified 09/20/24 15:22 codeine AdvReac Intermediate VOMITING Verified 09/20/24 15:22 hydrocodone AdvReac Intermediate Vomiting Verified 09/20/24 15:22 Home Meds Home Medications Medication Instructions Recorded Confirmed albuterol sulfate 90 mcg/actuation 2 puff inhalation Q4 PRN cough/sob 03/26/24 11/18/24 aerosol inhaler amiodarone 200 mg tablet 200 mg PO QPM 03/26/24 11/18/24 benzonatate 100 mg capsule 100 mg PO TID PRN Cough 03/26/24 11/18/24 cholecalciferol (vitamin D3) 50 50 mcg PO QAM 03/26/24 11/18/24 mcg (2,000 unit) tablet (Vitamin D3) famotidine 20 mg tablet (Pepcid) 20 mg PO AMPM 03/26/24 11/18/24 fluoxetine 60 mg tablet 60 mg PO QPM 03/26/24 11/18/24 fluticasone 250 mcg-salmeterol 50 1 ea inhalation QPM PRN Coughing 03/26/24 11/18/24 mcg/dose blistr powdr for inhalation insulin aspart U-100 100 unit/mL 0 unit subcut WM 03/26/24 11/18/24 (3 mL) subcutaneous pen (Novolog FlexPen U-100 Insulin aspart) insulin degludec 100 18 unit subcut QPM 03/26/24 11/18/24 unit-liraglutide 3.6 mg/mL(3 mL) subcutaneous pen (Xultophy 100/3.6) insulin glargine 100 unit/mL 3 unit subcut PM 03/26/24 11/18/24 subcutaneous solution (Lantus U-100 Insulin) levothyroxine 50 mcg tablet 50 mcg PO DAILYBB 03/26/24 11/18/24 ondansetron HCl 4 mg tablet 4 mg PO Q6 PRN Nausea And Vomiting 03/26/24 11/18/24 polyethylene glycol 3350 17 gram 17 g PO DAILY PRN Constipation 03/26/24 11/18/24 oral powder packet (Miralax) aspirin 81 mg tablet,delayed 81 mg PO DAILY 09/20/24 11/18/24 release clopidogrel 75 mg tablet 75 mg DAILY 09/20/24 11/18/24 metolazone 10 mg tablet 2.5 mg PO DAILY PRN Weight Gain 09/20/24 11/18/24 torsemide 40 mg tablet 40 mg PO DAILY 09/20/24 11/18/24 vitamins A,C,R-cgep-zjnxcx 4,296 1 cap PO BID 09/20/24 11/18/24 mcg-226 mg-90 mg capsule (PreserVision AREDS) nystatin 100,000 unit/gram topical 1 applic topical TID PRN Rash 11/18/24 11/18/24 powder Previous Rx's Medication Instructions Recorded atorvastatin 20 mg tablet 20 mg PO QAM #30 tabs 10/24/23 bupropion HCl 100 mg tablet,12 hr 100 mg PO QAM #30 ea 10/24/23 sustained-release bupropion HCl 150 mg tablet,12 hr 150 mg PO QAM #30 ea 10/24/23 sustained-release cyanocobalamin (vitamin B-12) 1,000 mcg PO QAM #30 tabs 10/24/23 1,000 mcg tablet mirabegron 50 mg tablet,extended 50 mg PO QAM #30 tabs 10/24/23 release 24 hr (Myrbetriq) docusate sodium 100 mg capsule 100 mg PO BID #60 caps 04/01/24 (Colace) L.acidop,casei,lactis,rham-B.lact,catarino 1 cap PO DAILY #7 caps 09/22/24 625 mg (10 billion cell) capsule (Advanced Probiotic) Results & Data (ED) Vital Signs Vital Signs - 24 hr 11/18/24 10:20 11/18/24 10:20 11/18/24 10:21 Temperature 36.4 C L Temperature Source Oral Pulse Rate 71 72 72 Pulse Rate from SpO2 Sensor Respiratory Rate 18 24 Respiratory Effort / Characteristics Non-Labored Spontaneous Respiratory Depth Normal Blood Pressure 129/58 L 118/46 L Blood Pressure Mean 81 90 Pulse Oximetry 97 99 Oxygen Delivery Method Room Air Room Air Sepsis Recent Fever Within 48 Hours No Sepsis New/Unexplained Change in Mental Status N/A Sepsis Action Taken by Nursing No Action Required 11/18/24 10:30 11/18/24 11:03 11/18/24 12:30 Temperature Temperature Source Pulse Rate 70 71 72 Pulse Rate from SpO2 Sensor 71 Respiratory Rate 19 18 14 Respiratory Effort / Characteristics Respiratory Depth Blood Pressure 129/58 L 115/58 L 136/61 Blood Pressure Mean 70 77 90 Pulse Oximetry 100 99 98 Oxygen Delivery Method Room Air Room Air Sepsis Recent Fever Within 48 Hours Sepsis New/Unexplained Change in Mental Status Sepsis Action Taken by Nursing 11/18/24 13:00 11/18/24 13:30 11/18/24 14:00 Temperature Temperature Source Pulse Rate 72 71 72 Pulse Rate from SpO2 Sensor Respiratory Rate 15 12 16 Respiratory Effort / Characteristics Respiratory Depth Blood Pressure 134/71 132/66 124/84 Blood Pressure Mean 104 75 95 Pulse Oximetry 96 100 100 Oxygen Delivery Method Room Air Room Air Room Air Sepsis Recent Fever Within 48 Hours Sepsis New/Unexplained Change in Mental Status Sepsis Action Taken by Nursing 11/18/24 14:19 Temperature Temperature Source Pulse Rate 69 Pulse Rate from SpO2 Sensor Respiratory Rate Respiratory Effort / Characteristics Respiratory Depth Blood Pressure Blood Pressure Mean Pulse Oximetry Oxygen Delivery Method Sepsis Recent Fever Within 48 Hours Sepsis New/Unexplained Change in Mental Status Sepsis Action Taken by Long Term Medications Current Medication List: was personally reviewed by me Laboratory Data Attestation: I reviewed the patient's lab results. 11/18/24 10:17 11/18/24 10:17 Lab Results 11/18/24 11/18/24 11/18/24 Range/Units 10:17 10:33 11:07 WBC 9.74 (4.8-10.8) K/ul RBC 2.90 L (4.20-5.40) M/uL Hgb 7.3 L (12.0-16.0) g/dl Hct 24.1 L (37.0-47.0) % MCV 83.1 (80.0-100.0) fL MCH 25.2 (25.0-34.0) pg MCHC 30.3 L (32.0-36.0) g/dL RDW Std Deviation 46.0 (36.4-46.3) fL RDW Coeff of Buck 15.1 H (11.5-14.5) % Plt Count 297 (130-400) K/uL MPV 10.3 (9.4-12.4) fL Immature Gran % (Auto) 0.4 % Neut % (Auto) 78.4 % Lymph % (Auto) 12.3 % Morrow % (Auto) 7.6 % Eos % (Auto) 0.8 % Baso % (Auto) 0.5 % Neut # (Auto) 7.63 H (1.40-6.50) K/uL Lymph # (Auto) 1.20 (1.20-3.40) K/uL Morrow # (Auto) 0.74 H (0.11-0.59) K/uL Eos # (Auto) 0.08 (0.00-0.50) K/uL Baso # (Auto) 0.05 (0.00-0.20) K/uL Immature Gran # (Auto) 0.04 (0.01-0.20) K/uL Polychromasia 1+ PT 10.6 (9.0-12.0) Seconds INR 1.0 (0.9-1.1) APTT 21 (21-31) Seconds PTT Ratio 0.8 Sodium 137 (136-145) mmol/L Potassium 4.1 (3.5-5.1) mmol/L Chloride 101 (98-107) mmol/L Carbon Dioxide 29 (21-32) mmol/L Anion Gap 7 (3-11) BUN 37 H (6-23) mg/dl Creatinine 1.66 H (0.6-1.2) mg/dl Est Cr Clr Drug Dosing 37.3 ml/min eGFR 32.79 BUN/Creatinine Ratio 22.3 H (10-20) Glucose 180 H (70-99(Fasting)) mg/dl Calcium 9.2 (8.6-10.3) mg/dl Total Bilirubin 0.5 (0.2-1.0) mg/dl AST 54 H (13-39) U/L ALT 46 (7-52) U/L Alkaline Phosphatase 43 (34-104) U/L Troponin I High Sens 7.8 (0-14) pg/ml Total Protein 6.8 (6.0-8.3) gm/dl Albumin 3.5 (3.4-5.0) gm/dl Globulin 3.3 (2.5-4.0) gm/dl Albumin/Globulin Ratio 1.1 (0.9-2) Lipase 13 (11-82) U/L POC Stool Occult Blood Positive A (Negative) SARS-CoV-2, RNA, NAAT (NEGATIVE) Blood Type A Positive Blood Type Recheck A Positive Antibody Screen NEGATIVE Crossmatch See Detail 11/18/24 Range/Units 12:58 WBC (4.8-10.8) K/ul RBC (4.20-5.40) M/uL Hgb (12.0-16.0) g/dl Hct (37.0-47.0) % MCV (80.0-100.0) fL MCH (25.0-34.0) pg MCHC (32.0-36.0) g/dL RDW Std Deviation (36.4-46.3) fL RDW Coeff of Buck (11.5-14.5) % Plt Count (130-400) K/uL MPV (9.4-12.4) fL Immature Gran % (Auto) % Neut % (Auto) % Lymph % (Auto) % Morrow % (Auto) % Eos % (Auto) % Baso % (Auto) % Neut # (Auto) (1.40-6.50) K/uL Lymph # (Auto) (1.20-3.40) K/uL Morrow # (Auto) (0.11-0.59) K/uL Eos # (Auto) (0.00-0.50) K/uL Baso # (Auto) (0.00-0.20) K/uL Immature Gran # (Auto) (0.01-0.20) K/uL Polychromasia PT (9.0-12.0) Seconds INR (0.9-1.1) APTT (21-31) Seconds PTT Ratio Sodium (136-145) mmol/L Potassium (3.5-5.1) mmol/L Chloride (98-107) mmol/L Carbon Dioxide (21-32) mmol/L Anion Gap (3-11) BUN (6-23) mg/dl Creatinine (0.6-1.2) mg/dl Est Cr Clr Drug Dosing ml/min eGFR BUN/Creatinine Ratio (10-20) Glucose (70-99(Fasting)) mg/dl Calcium (8.6-10.3) mg/dl Total Bilirubin (0.2-1.0) mg/dl AST (13-39) U/L ALT (7-52) U/L Alkaline Phosphatase (34-104) U/L Troponin I High Sens (0-14) pg/ml Total Protein (6.0-8.3) gm/dl Albumin (3.4-5.0) gm/dl Globulin (2.5-4.0) gm/dl Albumin/Globulin Ratio (0.9-2) Lipase (11-82) U/L POC Stool Occult Blood (Negative) SARS-CoV-2, RNA, NAAT NEGATIVE (NEGATIVE) Blood Type Blood Type Recheck Antibody Screen Crossmatch Administered Medications Acetaminophen (Acetaminophen 325 Mg Tab) 650 mg PO PRE-TREAT ONE Stop: 11/18/24 22:26 Last Admin: 11/18/24 14:45 Dose: 650 mg Documented By: ALLYSSA Discontinued Medications Sodium Chloride (Nss) 500 mls @ 999 mls/hr IV .Q31M AMI Stop: 11/18/24 11:00 Last Admin: 11/18/24 11:17 Dose: 999 mls/hr Documented By: KIAH Famotidine (Pepcid 20mg Iv Push) 20 mg in 5 mls @ 2.5 mls/min IV NOW STA Stop: 11/18/24 10:23 Last Admin: 11/18/24 11:16 Dose: 2.5 mls/min Documented By: KIAH Pantoprazole Sodium 80 mg/ (Dextrose) 120 mls @ 400 mls/hr IV NOW ONE Stop: 11/18/24 10:39 Last Infusion: 11/18/24 11:24 Dose: Infused Documented By: Admin: 11/18/24 11:02 Dose: 400 mls/hr Documented By: KIAH Ioversol (Optiray 320 100ml) 94 ml IV ONCE ONE Stop: 11/18/24 11:55 Last Admin: 11/18/24 11:54 Dose: 94 ml Documented By: SALVADOR Torsemide (Torsemide 20 Mg Tab) 40 mg PO ONE ONE Stop: 11/18/24 14:28 Last Admin: 11/18/24 14:45 Dose: 40 mg Documented By: ALLYSSA Imaging Data Radiologist's Impression: Abdomen/Pelvis CT 11/18/24 10:22 CT SCAN OF THE ABDOMEN AND PELVIS WITH IV CONTRAST CLINICAL HISTORY: GI bleeding. Dizziness and weakness. COMPARISON STUDY: Abdominal CT dated 09/20/2024. TECHNIQUE: Following the IV administration of 94 cc of Optiray 320, CT scan of the abdomen and pelvis is performed from the lung bases to the proximal femora. Images are reviewed in the axial, sagittal, and coronal planes. IV contrast was administered without complication. A dose lowering technique was utilized adhering to the principles of ALARA. CT DOSE: 1419.03 mGy.cm FINDINGS: Lung bases: A left atrial occlusion devices noted. The heart is enlarged and without pericardial effusion. There is coronary artery atherosclerosis. The mitral annulus is densely calcified. A tiny hiatal hernia is noted. The lung bases are clear. Liver: The contrast-enhanced liver is normal in size, contour, and attenuation. There is no intrahepatic biliary ductal dilatation. The hepatic veins and portal veins are patent. Gallbladder: Unremarkable. Spleen: Normal in size and attenuation. There are calcified splenic granulomas. Pancreas: Unremarkable. Adrenal glands: Unremarkable. Kidneys: The contrast enhanced kidneys demonstrate mild cortical atrophy and are without hydronephrosis. The kidneys enhance symmetrically. There are at least 2 nonobstructing right renal calculi which measure up to 10 mm. A 6 mm nonobstructing calculus is seen on the left. No ureteral stone is identified. There is nonspecific bilateral perinephric stranding. Abdominal vasculature: The abdominal aorta is normal in course and caliber noting mild atherosclerotic calcification. Bowel: There is mild colonic fecal retention. No bowel obstruction is seen. No intraluminal contrast is identified to suggest a site of GI bleeding. The appendix is well-visualized and normal. Peritoneum: There is no intraperitoneal free air or abdominal ascites. There is asymmetric atrophy of the right iliopsoas musculature as compared to the left. Lymphadenopathy: None. Pelvic viscera: The bladder is distended and contains a small focus of intraluminal gas. The uterus is surgically absent. No adnexal lesion is seen. Skeletal structures: The skeletal structures are osteopenic. There is mild lumbosacral spondylosis with a large posterior disc osteophyte complex at L4-L5. Sclerotic change is seen in the sacroiliac joints. No lytic or blastic lesions are seen. IMPRESSION: 1. The bladder is distended and contains a nonspecific focus of intraluminal gas. This may be related to instrumentation. Correlate with clinical findings and urinalysis. 2. There is nonspecific bilateral perinephric stranding which is similar to the 09/20/2024 examination. Again, this should be correlated with urinalysis. 3. Bilateral nephrolithiasis. 4. Cardiomegaly. 5. Additional findings as above. ACT 112: Negative or not required by law. Electronically signed by: Gaston Velasquez M.D. 11/18/2024 12:18 PM Chest X-Ray 11/18/24 10:22 SINGLE VIEW CHEST CLINICAL HISTORY: Dizziness FINDINGS: An AP, portable, upright chest radiograph is compared to study dated 09/20/2024. The examination is degraded by portable technique and patient rotation. An electronic device projects over the left chest wall. The heart is top normal for projection. The left atrial appendage occlusion device is noted. The pulmonary vasculature is noncongested. There is mild bibasilar atelectasis. The lungs and pleural spaces are otherwise clear. No pneumothorax is seen. The skeletal structures are osteopenic. The bony thorax is grossly intact. IMPRESSION: No acute cardiopulmonary abnormality is identified. ACT 112: Negative or not required by law. Electronically signed by: Gaston Velasquez M.D. 11/18/2024 11:09 AM Discharge Plan Visit Data Chief Complaint: Referred by Doctor Stated Complaint: ABNORMAL LABS ED Provider: Gaston Wyman Discharge Problem: Dizziness, Anemia, GI bleed, CRF (chronic renal failure) Patient Disposition: Admitted As Inpatient Condition: Fair Forms Stand Alone Forms: [facility] Prescriptions Prescriptions: No Action amiodarone 200 mg tablet 200 mg PO QPM Taper: Taper, Blank 200 mg TWICE A DAY for 23 Days 200 mg DAILY for 30 Days famotidine [Pepcid] 20 mg tablet 20 mg PO AMPM cholecalciferol (vitamin D3) [Vitamin D3] 50 mcg (2,000 unit) tablet 50 mcg PO QAM fluoxetine 60 mg tablet 60 mg PO QPM levothyroxine 50 mcg tablet 50 mcg PO DAILYBB fluticasone propion-salmeterol 250-50 mcg/dose blister with device 1 ea INHALATION QPM PRN (Reason: Coughing) polyethylene glycol 3350 [Miralax] 17 gram powder in packet 17 g PO DAILY PRN (Reason: Constipation) Xultophy 100/3.6 100 unit-3.6 mg /mL (3 mL) insulin pen 18 unit SUBCUT QPM Rx Instructions: per pharmacy -up to 50 units daily per titration. insulin glargine [Lantus U-100 Insulin] 100 unit/mL Solution 3 unit SUBCUT PM insulin aspart U-100 [Novolog FlexPen U-100 Insulin] 100 unit/mL (3 mL) insulin pen 0 unit SUBCUT WM Rx Instructions: sliding scale albuterol sulfate 90 mcg/actuation HFA aerosol inhaler 2 puff INHALATION Q4 PRN (Reason: cough/sob) ondansetron HCl 4 mg Tablet 4 mg PO Q6 PRN (Reason: Nausea And Vomiting) benzonatate 100 mg capsule 100 mg PO TID PRN (Reason: Cough) docusate sodium [Colace] 100 mg capsule 100 mg PO BID Qty: 60 0RF aspirin 81 mg Tablet,Delayed Release (Dr/Ec) 81 mg PO DAILY metolazone 10 mg Tablet 2.5 mg PO DAILY PRN (Reason: Weight Gain) Rx Instructions: Take Torsemide 40mg by mouth once daily, may take up to 80mg daily for weight gain x 3 days. If not resolved, add Metolazone 10mg once daily PreserVision AREDS 4,296 mcg-226 mg-90 mg Capsule 1 cap PO BID torsemide 40 mg Tablet 40 mg PO DAILY MDD 80mg/24hr Rx Instructions: Take 40mg by mouth once daily, may take up to 80mg daily for weight gain x 3 days. If not resolved, add Metolazone 10mg once daily clopidogrel 75 mg Tablet 75 mg DAILY Advanced Probiotic 625 mg (10 billion cell) Capsule 1 cap PO DAILY Qty: 7 0RF bupropion HCl 150 mg Tablet Sustained-Release 12 Hr 150 mg PO QAM Qty: 30 0RF Rx Instructions: TOTAL DOSE 250 MG--TAKES WITH 100 MG TAB. atorvastatin 20 mg Tablet 20 mg PO QAM Qty: 30 0RF cyanocobalamin (vitamin B-12) 1,000 mcg Tablet 1,000 mcg PO QAM Qty: 30 0RF bupropion HCl 100 mg Tablet Sustained-Release 12 Hr 100 mg PO QAM Qty: 30 0RF Rx Instructions: TOTAL DOSE 250 MG--TAKES WITH 150 MG TAB. mirabegron [Myrbetriq] 50 mg Tablet Extended Release 24 Hr 50 mg PO QAM Qty: 30 0RF nystatin 100,000 unit/gram Powder 1 applic TOPICAL TID PRN (Reason: Rash) Referrals Referrals: Aviva Rossi DO [Primary Care Provider] - Discharge Problem: Anemia Qualifiers: Anemia type: unspecified type Qualified Code(s): D64.9 - Anemia, unspecified GI bleed Qualifiers: GI bleed type/associated pathology: unspecified gastrointestinal hemorrhage type Qualified Code(s): K92.2 - Gastrointestinal hemorrhage, unspecified CRF (chronic renal failure) Qualifiers: Chronic kidney disease stage: unspecified stage Qualified Code(s): N18.9 - Chronic kidney disease, unspecified
[2024-11-18 10:40] LABS: Hematocrit (blood only) 24.1 % (37.0-47.0); Hemoglobin 7.3 g/dl (12.0-16.0); Immature Granulocytes # (auto) 0.04 K/uL (0.01-0.20); Immature Granulocytes % (auto) 0.4 %; Mean Corpuscular Hemoglobin 25.2 pg (25.0-34.0); Mean Corpuscular Volume 83.1 fL (80.0-100.0); Platelet Count 297 K/uL (130-400); RDW Standard Deviation 46.0 fL (36.4-46.3); Red Blood Count 2.90 M/uL (4.20-5.40); White Blood Count 9.74 K/ul (4.8-10.8)
--- NOTE | 2024-11-18 11:10 | XRay Report ---
SINGLE VIEW CHEST CLINICAL HISTORY: Dizziness FINDINGS: An AP, portable, upright chest radiograph is compared to study dated 09/20/2024. The examina tion is degraded by portable technique and patient rotation. An electronic device projects over the l eft chest wall. The heart is top normal for projection. The left atrial appendage occlusion device is noted. The pulmonary vasculature is noncongested. There is mild bibasilar atelectasis. The lungs and pleural spaces are otherwise clear. No pneumothorax is seen. The skeletal structures are osteopenic. The bony thorax is grossly intact. IMPRESSION: No acute cardiopulmonary abnormality is identified. ACT 112: Negative or not required by law. Electronically signed by: Gaston Velasquez M.D. 11/18/2024 11:09 AM
[2024-11-18 11:13] LABS: INR 1.0 (0.9-1.1); Partial Thromboplastin Time 21 Seconds (21-31); Prothrombin Time 10.6 Seconds (9.0-12.0)
[2024-11-18] MEDS: FAMOTIDINE 20MG IV PUSH 20 MG/5 ML SYR IV STA (11:16)
[2024-11-18] MEDS: SODIUM CHLORIDE 0.9% 500 ML IV SCH (11:17)
[2024-11-18 11:19] LABS: Alanine Aminotransferase 46.0 U/L (7-52); Albumin Globulin Ratio 1.1 (0.9-2); Alkaline Phosphatase 43.0 U/L (34-104); Anion Gap 7.0 (3-11); Bilirubin,Total 0.5 mg/dl (0.2-1.0); Blood Urea Nitrogen 37.0 mg/dl (6-23); Calcium 9.2 mg/dl (8.6-10.3); Carbon Dioxide 29.0 mmol/L (21-32); Chloride 101.0 mmol/L (98-107); Creatinine Clr Calc Pharmacy 37.3 ml/min; Globulin 3.3 gm/dl (2.5-4.0); Glucose 180.0 mg/dl (70-99(Fasting)); Lipase 13.0 U/L (11-82); Potassium 4.1 mmol/L (3.5-5.1); Sodium 137.0 mmol/L (136-145); Total Protein 6.8 gm/dl (6.0-8.3)
[2024-11-18] MEDS: OPTIRAY 320 100ml IV ONE (11:54)
--- NOTE | 2024-11-18 12:20 | CT Scan Report ---
CT SCAN OF THE ABDOMEN AND PELVIS WITH IV CONTRAST CLINICAL HISTORY: GI bleeding. Dizziness and weakness. COMPARISON STUDY: Abdominal CT dated 09/20/2024. TECHNIQUE: Following the IV administration of 94 cc of Optiray 320, CT scan of the abdomen and pelvi s is performed from the lung bases to the proximal femora. Images are reviewed in the axial, sagittal , and coronal planes. IV contrast was administered without complication. A dose lowering technique wa s utilized adhering to the principles of ALARA. CT DOSE: 1419.03 mGy.cm FINDINGS: Lung bases: A left atrial occlusion devices noted. The heart is enlarged and without pericardial effu asuncion. There is coronary artery atherosclerosis. The mitral annulus is densely calcified. A tiny hiata l hernia is noted. The lung bases are clear. Liver: The contrast-enhanced liver is normal in size, contour, and attenuation. There is no intrahepa tic biliary ductal dilatation. The hepatic veins and portal veins are patent. Gallbladder: Unremarkable. Spleen: Normal in size and attenuation. There are calcified splenic granulomas. Pancreas: Unremarkable. Adrenal glands: Unremarkable. Kidneys: The contrast enhanced kidneys demonstrate mild cortical atrophy and are without hydronephros is. The kidneys enhance symmetrically. There are at least 2 nonobstructing right renal calculi which measure up to 10 mm. A 6 mm nonobstructing calculus is seen on the left. No ureteral stone is identif ied. There is nonspecific bilateral perinephric stranding. Abdominal vasculature: The abdominal aorta is normal in course and caliber noting mild atheroscleroti c calcification. Bowel: There is mild colonic fecal retention. No bowel obstruction is seen. No intraluminal contrast is identified to suggest a site of GI bleeding. The appendix is well-visualized and normal. Peritoneum: There is no intraperitoneal free air or abdominal ascites. There is asymmetric atrophy of the right iliopsoas musculature as compared to the left. Lymphadenopathy: None. Pelvic viscera: The bladder is distended and contains a small focus of intraluminal gas. The uterus i s surgically absent. No adnexal lesion is seen. Skeletal structures: The skeletal structures are osteopenic. There is mild lumbosacral spondylosis wi th a large posterior disc osteophyte complex at L4-L5. Sclerotic change is seen in the sacroiliac noam nts. No lytic or blastic lesions are seen. IMPRESSION: 1. The bladder is distended and contains a nonspecific focus of intraluminal gas. This may be related to instrumentation. Correlate with clinical findings and urinalysis. 2. There is nonspecific bilateral perinephric stranding which is similar to the 09/20/2024 examination . Again, this should be correlated with urinalysis. 3. Bilateral nephrolithiasis. 4. Cardiomegaly. 5. Additional findings as above. ACT 112: Negative or not required by law. Electronically signed by: Gaston Velasquez M.D. 11/18/2024 12:18 PM
--- NOTE | 2024-11-18 13:22 | History & Physical Report ---
Date of Service November 18, 2024 Assessment & Plan (1) Anemia: (2) Dizziness: (3) GI bleed: (4) Presence of Watchman left atrial appendage closure device: (5) Diabetes mellitus, type 2: (6) Hypertension: (7) Hyperlipidemia: (8) Paroxysmal atrial fibrillation: Plan This is a 69 year old F with PMH of insulin-dependent DM Type II, dyslipidemia, hypothyroidism, diastolic heart failure, paroxysmal AFib, HTN, CKD Stage III, depression and other medical problems listed below who presents with dizziness and anemia concerning for GI bleed. Symptomatic anemia Concern for GI bleed Outpatient hgb from from 7.9 to 6.8 in past few days on outpatient labwork FOBT + in ED, endorsing exertional N/V and dark stools for past 2 weeks Remains on DAPT from Watchman device implantation in August - due for JUD - consulted cardiology for recs regarding continuation of DAPT, possibility of in- patient JUD Given exertional symptoms, consented in ED and now transfusing 1u prbc now with missed AM torsemide dose Monitor H&H, continue IV Protonix BID, GI consult NPO at midnight for possible procedure tmrw depending on recommendations HFpEF Appears compensated, admitting CXR without acute abnormalities Gave missed AM torsemide dose with transfusion, monitor volume status closely Cards consulted as above Paroxysmal Afib s/p Watchman procedure Continue home amiodarone HS for rate control On DAPT as above for Watchman device (history of bleed with Eliquis in past) - appreciate cards recs Telemetry, Mag/Phos with AM labs DM II A1c 6.1 in September 2024 SSI while in-patient Glycemic consult placed BSG AC HS CKD III Cr 1.66 today. Baseline Cr ~ mid-high 1s. Continue to monitor CATHERINE CPAP HS Hyperlipidemia Continue home statin Ambulatory dysfunction Patient unsteady given above - fall precautions, PT/OT evals DVT Ppx: SCDs for now Code status: FULL PCP: Flo Dispo: Admitted to PCU Patient seen in collaboration with Dr. Jimenez. Please see addendum. I spent a total of 75 minutes coordinating, documenting, and providing care for this patient excluding time spent in the performance of separately billed services or time spent by another provider/QHP. History of Present Illness Chief Complaint: dizziness Primary Care Provider: Aviva Rossi, This is a 69 year old F with PMH of insulin-dependent DM Type II, dyslipidemia, hypothyroidism, diastolic heart failure, paroxysmal AFib, HTN, CKD Stage III, depression and other medical problems listed below who presents with dizziness. Was recently admitted 09/20-09/22 to our service for decompensated HFpEF and RLE cellulitis. Since discharge home, made decision with help of PCP to move into [facility], which she did last Friday. For the past 2 weeks, endorses dizziness with exertion or any type of ambulation. Has also had episodes of nausea with bilious emesis only when exerting herself. Denies any chest pain or significant shortness of breath during these times. States she has been compliant with medications, including her diuretics and said she is up about 2 to 3 pounds since her arrival to [facility]. Denies any hematemesis but states her bowel movements are darker than usual. No [place] blood per rectum. Denies history of GI bleed in the past. Of significance, patient underwent placement of Watchman device in August 2024 and has been on DAPT since then. Per cardiology note from last month, DAPT required for 45 days (through mid October) until JUD scheduled for 11/03/2024. However due to transportation issues, patient canceled study and it is not rescheduled until mid November. Since arrival in [facility], had lab work done due to dizziness with hemoglobin of 7.9 on 11/16. Repeat hemoglobin this morning done in outpatient setting was 6.8, so patient sent to ED for further evaluation. Denies any fever, chills, chest pain, shortness of breath, abdominal pain, diarrhea or constipation. Has had some dysuria and had an abnormal urinalysis in outpatient setting and was started on Keflex on 11/16 but final urine culture resulted with multiple wen suggesting contamination or colonization. Allergies Allergy/AdvReac Type Severity Reaction Status Date / Time lisinopril Allergy Intermediate Cough Unverified 09/20/24 15:22 penicillin G Allergy Intermediate HIVES Verified 09/20/24 15:22 codeine AdvReac Intermediate VOMITING Verified 09/20/24 15:22 hydrocodone AdvReac Intermediate Vomiting Verified 09/20/24 15:22 Home Medications Medication Instructions Recorded Confirmed Type atorvastatin 20 mg tablet 20 mg PO QAM #30 tabs 10/24/23 11/18/24 Rx bupropion HCl 100 mg tablet,12 hr 100 mg PO QAM #30 ea 10/24/23 11/18/24 Rx sustained-release bupropion HCl 150 mg tablet,12 hr 150 mg PO QAM #30 ea 10/24/23 11/18/24 Rx sustained-release cyanocobalamin (vitamin B-12) 1,000 mcg PO QAM #30 tabs 10/24/23 11/18/24 Rx 1,000 mcg tablet mirabegron 50 mg tablet,extended 50 mg PO QAM #30 tabs 10/24/23 11/18/24 Rx release 24 hr (Myrbetriq) albuterol sulfate 90 mcg/actuation 2 puff inhalation Q4 PRN cough/sob 03/26/24 11/18/24 History aerosol inhaler amiodarone 200 mg tablet 200 mg PO QPM 03/26/24 11/18/24 History benzonatate 100 mg capsule 100 mg PO TID PRN Cough 03/26/24 11/18/24 History cholecalciferol (vitamin D3) 50 50 mcg PO QAM 03/26/24 11/18/24 History mcg (2,000 unit) tablet (Vitamin D3) famotidine 20 mg tablet (Pepcid) 20 mg PO AMPM 03/26/24 11/18/24 History fluoxetine 60 mg tablet 60 mg PO QPM 03/26/24 11/18/24 History fluticasone 250 mcg-salmeterol 50 1 ea inhalation QPM PRN Coughing 03/26/24 11/18/24 History mcg/dose blistr powdr for inhalation insulin aspart U-100 100 unit/mL 0 unit subcut WM 03/26/24 11/18/24 History (3 mL) subcutaneous pen (Novolog FlexPen U-100 Insulin aspart) insulin degludec 100 18 unit subcut QPM 03/26/24 11/18/24 History unit-liraglutide 3.6 mg/mL(3 mL) subcutaneous pen (Xultophy 100/3.6) insulin glargine 100 unit/mL 3 unit subcut PM 03/26/24 11/18/24 History subcutaneous solution (Lantus U-100 Insulin) levothyroxine 50 mcg tablet 50 mcg PO DAILYBB 03/26/24 11/18/24 History ondansetron HCl 4 mg tablet 4 mg PO Q6 PRN Nausea And Vomiting 03/26/24 11/18/24 History polyethylene glycol 3350 17 gram 17 g PO DAILY PRN Constipation 03/26/24 5 History oral powder packet (Miralax) docusate sodium 100 mg capsule 100 mg PO BID #60 caps 04/01/24 11/18/24 Rx (Colace) aspirin 81 mg tablet,delayed 81 mg PO DAILY 09/20/24 11/18/24 History release clopidogrel 75 mg tablet 75 mg DAILY 09/20/24 11/18/24 History metolazone 10 mg tablet 2.5 mg PO DAILY PRN Weight Gain 09/20/24 11/18/24 History torsemide 40 mg tablet 40 mg PO DAILY 09/20/24 11/18/24 History vitamins A,C,E-lyob-cxgbou 4,296 1 cap PO BID 09/20/24 11/18/24 History mcg-226 mg-90 mg capsule (PreserVision AREDS) L.acidop,casei,lactis,rham-B.lact,catarino 1 cap PO DAILY #7 caps 09/22/24 11/18/24 Rx 625 mg (10 billion cell) capsule (Advanced Probiotic) nystatin 100,000 unit/gram topical 1 applic topical TID PRN Rash 11/18/24 11/18/24 History powder Past Med/Surg History Problem List (Updated 11/18/24 @ 17:12 by Miky Reynolds) Dyslipidemia Diastolic congestive heart failure Symptomatic anemia Presence of Watchman left atrial appendage closure device CRF (chronic renal failure) (Acute) GI bleed (Acute) Anemia (Acute) Dizziness (Acute) Acute decompensated heart failure CATHERINE (obstructive sleep apnea) Weakness (Acute) Elevated troponin (Acute) Vomiting (Acute) CHF (congestive heart failure) (Acute) SOB (shortness of breath) (Acute) Ambulatory dysfunction Asymptomatic hypertensive urgency Acute kidney injury superimposed on chronic kidney disease (Acute) Acute exacerbation of CHF (congestive heart failure) (Acute) Atrial fibrillation with RVR Right groin pain (Acute) JOHN (acute kidney injury) (Acute) Hematoma of right iliopsoas muscle (Acute) UTI (urinary tract infection) (Acute) Paroxysmal atrial fibrillation Generalized weakness (Acute) Hyperlipidemia Hypertension Diabetes mellitus, type 2 dexcom intact Medical History Anemia Chronic cough 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, 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 Hypothyroidism Myasthenia gravis "EFFECTS ONLY MY VOCAL CORDS" Arthritis Stress incontinence in female GERD (gastroesophageal reflux disease) Hx of cancer of endometrium Idiopathic hypersomnia ADHD Peripheral neuropathy Hx of migraines Irregular heart beats NO CARDS Hx of sleep apnea NO DEVICE Chronic obstructive pulmonary disease H/O Surgical History History of surgery lymph node removed from forehead (benign) Hx of cataract extraction right/left History of esophagogastroduodenoscopy (EGD) H/O colonoscopy with polypectomy H/O total hysterectomy History of tooth extraction Nausea and vomiting after administration of anesthetic agent Family History Other No family history of adverse response to anesthesia Social History Smoking Status: Former smoker Tobacco Type: Cigarettes Second Hand Exposure: No; Do You Dip or Chew Tobacco: No; Hx Alcohol Use: Yes Alcohol type: wine Hx Substance Use: No Preferred Language: [place] Communication Ability: Effective Engineering Patternmaker Required: No Beliefs That Will Affect Care: None Current Living Situation: Other Current Living Situation Comment: [facility] Feels Safe at Home: Yes Assistive Devices: BiPap, Cane, Glasses, Walker and Wheelchair Review of Systems Review of Systems: At least ten systems reviewed and negative except as noted in the HPI. Physical Exam Physical Exam: General Appearance: WD/WN, vitals as above, NAD, sitting up in bed, pleasant, conversing easily, obese Head: normocephalic, atraumatic Eyes: normal inspection, PERRL, conjunctivae normal, anicteric sclerae ENT: external ear and nose normal, dry mucous membranes of oropharynx Neck: normal visual inspection Respiratory: normal respiratory effort, diminished lung sounds but clear. No accessory muscle use Cardiovascular: regular rate, rhythm,normal peripheral pulses, trace BLE edema Abdomen/GI: normal bowel sounds, soft, nontender, no hepatosplenomegaly Extremities/Musculoskeletal: no cyanosis or clubbing, extremities motor strength 5/5, venous stasis changes BLE Neurologic: PERRL, EOMI, accommodation nl, no face palsy, no dysarthria, CN's II-XI intact bilaterally and moves all extremities Psychiatric: A+Ox3, euthymic affect Skin: normal color, warm/dry, erythematous rash noted around skin folds in groin Results & Data Results & Data Vital Signs (Past 12 Hours) Vital Signs Temp Pulse Resp BP Pulse Ox O2 Del Method 11/18/24 11:03 71 18 115/58 L 99 11/18/24 10:30 70 19 129/58 L 100 Room Air 11/18/24 10:21 72 11/18/24 10:20 72 24 118/46 L 99 Room Air 11/18/24 10:20 36.4 C L 71 18 129/58 L 97 Room Air Laboratory Results Short CBC 11/18/24 Range/Units 10:17 WBC 9.74 (4.8-10.8) K/ul Hgb 7.3 L (12.0-16.0) g/dl Hct 24.1 L (37.0-47.0) % Plt Count 297 (130-400) K/uL BMP 11/18/24 10:17 Sodium 137 Potassium 4.1 Chloride 101 Carbon Dioxide 29 BUN 37 H Creatinine 1.66 H Glucose 180 H Calcium 9.2 Liver Function 11/18/24 Range/Units 10:17 Total Bilirubin 0.5 (0.2-1.0) mg/dl AST 54 H (13-39) U/L ALT 46 (7-52) U/L Alkaline Phosphatase 43 (34-104) U/L Albumin 3.5 (3.4-5.0) gm/dl Diagnostic Findings Abdomen/Pelvis CT 11/18/24 10:22 CT SCAN OF THE ABDOMEN AND PELVIS WITH IV CONTRAST CLINICAL HISTORY: GI bleeding. Dizziness and weakness. COMPARISON STUDY: Abdominal CT dated 09/20/2024. TECHNIQUE: Following the IV administration of 94 cc of Optiray 320, CT scan of the abdomen and pelvis is performed from the lung bases to the proximal femora. Images are reviewed in the axial, sagittal, and coronal planes. IV contrast was administered without complication. A dose lowering technique was utilized adhering to the principles of ALARA. CT DOSE: 1419.03 mGy.cm FINDINGS: Lung bases: A left atrial occlusion devices noted. The heart is enlarged and without pericardial effusion. There is coronary artery atherosclerosis. The mitral annulus is densely calcified. A tiny hiatal hernia is noted. The lung bases are clear. Liver: The contrast-enhanced liver is normal in size, contour, and attenuation. There is no intrahepatic biliary ductal dilatation. The hepatic veins and portal veins are patent. Gallbladder: Unremarkable. Spleen: Normal in size and attenuation. There are calcified splenic granulomas. Pancreas: Unremarkable. Adrenal glands: Unremarkable. Kidneys: The contrast enhanced kidneys demonstrate mild cortical atrophy and are without hydronephrosis. The kidneys enhance symmetrically. There are at least 2 nonobstructing right renal calculi which measure up to 10 mm. A 6 mm nonobstructing calculus is seen on the left. No ureteral stone is identified. There is nonspecific bilateral perinephric stranding. Abdominal vasculature: The abdominal aorta is normal in course and caliber noting mild atherosclerotic calcification. Bowel: There is mild colonic fecal retention. No bowel obstruction is seen. No intraluminal contrast is identified to suggest a site of GI bleeding. The appendix is well-visualized and normal. Peritoneum: There is no intraperitoneal free air or abdominal ascites. There is asymmetric atrophy of the right iliopsoas musculature as compared to the left. Lymphadenopathy: None. Pelvic viscera: The bladder is distended and contains a small focus of intraluminal gas. The uterus is surgically absent. No adnexal lesion is seen. Skeletal structures: The skeletal structures are osteopenic. There is mild lumbosacral spondylosis with a large posterior disc osteophyte complex at L4-L5. Sclerotic change is seen in the sacroiliac joints. No lytic or blastic lesions are seen. IMPRESSION: 1. The bladder is distended and contains a nonspecific focus of intraluminal gas. This may be related to instrumentation. Correlate with clinical findings and urinalysis. 2. There is nonspecific bilateral perinephric stranding which is similar to the 09/20/2024 examination. Again, this should be correlated with urinalysis. 3. Bilateral nephrolithiasis. 4. Cardiomegaly. 5. Additional findings as above. ACT 112: Negative or not required by law. Electronically signed by: Gaston Velasquez M.D. 11/18/2024 12:18 PM Chest X-Ray 11/18/24 10:22 SINGLE VIEW CHEST CLINICAL HISTORY: Dizziness FINDINGS: An AP, portable, upright chest radiograph is compared to study dated 09/20/2024. The examination is degraded by portable technique and patient rotation. An electronic device projects over the left chest wall. The heart is top normal for projection. The left atrial appendage occlusion device is noted. The pulmonary vasculature is noncongested. There is mild bibasilar atelectasis. The lungs and pleural spaces are otherwise clear. No pneumothorax is seen. The skeletal structures are osteopenic. The bony thorax is grossly intact. IMPRESSION: No acute cardiopulmonary abnormality is identified. ACT 112: Negative or not required by law. Electronically signed by: Gaston Velasquez M.D. 11/18/2024 11:09 AM Code Status & VTE Plan VTE Prophylaxis Plan VTE Prophylaxis will be ordered: Yes Supervising Physician Co-Signing Physician Notes Patient seen and examined independently. Discussed with above provider Patient presents to the hospital after she was found to have anemia with hemoglobin of 6.8 g/dL. She is currently on aspirin and Plavix which was started after she underwent Watchman procedure in the end of August; was supposed to be on it for 45 days and have repeat JUD before consideration could be made regarding stopping it. Will start Protonix twice daily; continue on aspirin and Plavix; will consult cardiology to see if they can do JUD while she is hospitalized to make a decision regarding whether to continue aspirin/Plavix. GI also consulted for comanagement. Patient being transfused 1 unit of blood. I have reviewed the advanced practitioner's documentation, and I agree with, and take responsibility for the plan of care I spent a total of 30 minutes coordinating, documenting, and providing care for this patient excluding time spent in the performance of separately billed services. All of the aforementioned completed while collaborating with the assigned advanced practitioner for a full treatment sally (1) Anemia Anemia type: unspecified type Qualified Code(s): D64.9 - Anemia, unspecified (3) GI bleed GI bleed type/associated pathology: unspecified gastrointestinal hemorrhage type Qualified Code(s): K92.2 - Gastrointestinal hemorrhage, unspecified
[2024-11-18 13:57] LABS: Polychromasia 1+
[2024-11-18] MEDS ORDERED: PHARMACY GLYCEMIC MGMT CONSULT PRN (14:30)
[2024-11-18] MEDS: TORSEMIDE 20 MG TAB PO ONE (14:45)
[2024-11-18] MEDS: ACETAMINOPHEN 325 MG TAB PO ONE (14:45)
[2024-11-18] MEDS ORDERED: CARBOHYDRATES FOR HYPOGLYCEMIA PO PRN (16:00)
[2024-11-18] MEDS ORDERED: DEXTROSE 50% 50 ML SYRINGE IV PRN (16:00)
[2024-11-18] MEDS ORDERED: GLUCOSE 10 TAB/TUBE PO PRN (16:00)
[2024-11-18] MEDS ORDERED: GLUCOSE 40% GEL 15 GM TUBE PO PRN (16:00)
[2024-11-18] MEDS ORDERED: GLUCAGON FOR INJ 1 MG VIAL SQ PRN (16:00)
--- NOTE | 2024-11-18 16:06 | Gastrointestinal Consultation ---
Date of Consultation November 18, 2024 Assessment & Plan (1) Anemia: -Continue to monitor H/H -Continue to monitor for overt GI bleeding -Continue to transfuse PRBCs per primary team -Continue IV PPI therapy -Eventual EGD, however would need to address DAPT with cardiology as we would need to hold Supervising Physician Co-Signing Physician Notes I agree with the advanced practitioner's documentation above regarding review of case, evaluation, and assessment and plan unless outlined below. This was a shared visit in which I was present during all aspects of the case including evaluation, discussion of case, review of data and test results, interpretation of data and test results, complex medical decision making, coordination of care, communication with patient and direction of ancillary services. The patient presents with progressive anemia in the setting of dual antiplatelet therapy status post watchman placement. She does not have any overt evidence of gastrointestinal bleeding but does suggest that her stools have been darker. It is unclear as to whether she has had true melena. She has had close colonoscopy follow-up for colorectal polyps and therefore lower GI bleeding is highly unlikely as a chronic source of bleeding. She has episodes of nausea and vomiting which appear to be related to exertion. I recommend close monitoring of blood counts and observation for any overt evidence of gastrointestinal bleeding. Upper endoscopy can be considered but patient would require withholding Plavix for minimum of 3 days from a safety perspective. Cardiology input is appreciated. History of Present Illness Reason for Consultation: Anemia, possible GIB on DAPT Attending Physician: Lorenzo Jimenez MD History of Present Illness Patient is a 69 yo female with PMH of DM2, HLD, hypothyroidism, diastolic heart failure, HTN, CKD3, depression, & paroxysmal afib with recent watchman device placement. She is currently on Plavix and Aspirin and was to continue this for 45 days until she could have a JUD. She was scheduled for this on 11/03/24, but had to cancel due to logistical reasons. She notes that she has had progressive dyspnea on exertion. She had an outpatient CBC today that indicated a hgb 6.8 and was advised to come to the ED. At the time of our visit, she is receiving PRBCs. Her current H/H 7.3/24.1. She had a colonoscopy in 2022 that was unremarkable with a repeat recommended in 2022. She notes a history of EGD in the past but I do not have these records. She denies significant abdominal pain or overt GI bleeding at this time. Allergies Allergy/AdvReac Type Severity Reaction Status Date / Time lisinopril Allergy Intermediate Cough Unverified 09/20/24 15:22 penicillin G Allergy Intermediate HIVES Verified 09/20/24 15:22 codeine AdvReac Intermediate VOMITING Verified 09/20/24 15:22 hydrocodone AdvReac Intermediate Vomiting Verified 09/20/24 15:22 Home Medications Medication Instructions Recorded Confirmed Type atorvastatin 20 mg tablet 20 mg PO QAM #30 tabs 10/24/23 11/18/24 Rx bupropion HCl 100 mg tablet,12 hr 100 mg PO QAM #30 ea 10/24/23 11/18/24 Rx sustained-release bupropion HCl 150 mg tablet,12 hr 150 mg PO QAM #30 ea 10/24/23 11/18/24 Rx sustained-release cyanocobalamin (vitamin B-12) 1,000 mcg PO QAM #30 tabs 10/24/23 11/18/24 Rx 1,000 mcg tablet mirabegron 50 mg tablet,extended 50 mg PO QAM #30 tabs 10/24/23 11/18/24 Rx release 24 hr (Myrbetriq) albuterol sulfate 90 mcg/actuation 2 puff inhalation Q4 PRN cough/sob 03/26/24 11/18/24 History aerosol inhaler amiodarone 200 mg tablet 200 mg PO QPM 03/26/24 11/18/24 History benzonatate 100 mg capsule 100 mg PO TID PRN Cough 03/26/24 11/18/24 History cholecalciferol (vitamin D3) 50 50 mcg PO QAM 03/26/24 11/18/24 History mcg (2,000 unit) tablet (Vitamin D3) famotidine 20 mg tablet (Pepcid) 20 mg PO AMPM 03/26/24 11/18/24 History fluoxetine 60 mg tablet 60 mg PO QPM 03/26/24 11/18/24 History fluticasone 250 mcg-salmeterol 50 1 ea inhalation QPM PRN Coughing 03/26/24 11/18/24 History mcg/dose blistr powdr for inhalation insulin aspart U-100 100 unit/mL 0 unit subcut WM 03/26/24 11/18/24 History (3 mL) subcutaneous pen (Novolog FlexPen U-100 Insulin aspart) insulin degludec 100 18 unit subcut QPM 03/26/24 11/18/24 History unit-liraglutide 3.6 mg/mL(3 mL) subcutaneous pen (Xultophy 100/3.6) insulin glargine 100 unit/mL 3 unit subcut PM 03/26/24 11/18/24 History subcutaneous solution (Lantus U-100 Insulin) levothyroxine 50 mcg tablet 50 mcg PO DAILYBB 03/26/24 11/18/24 History ondansetron HCl 4 mg tablet 4 mg PO Q6 PRN Nausea And Vomiting 03/26/24 11/18/24 History polyethylene glycol 3350 17 gram 17 g PO DAILY PRN Constipation 03/26/24 11/18/24 History oral powder packet (Miralax) docusate sodium 100 mg capsule 100 mg PO BID #60 caps 04/01/24 11/18/24 Rx (Colace) aspirin 81 mg tablet,delayed 81 mg PO DAILY 09/20/24 11/18/24 History release clopidogrel 75 mg tablet 75 mg DAILY 09/20/24 11/18/24 History metolazone 10 mg tablet 2.5 mg PO DAILY PRN Weight Gain 09/20/24 11/18/24 History torsemide 40 mg tablet 40 mg PO DAILY 09/20/24 11/18/24 History vitamins A,C,U-ishb-wvqqku 4,296 1 cap PO BID 09/20/24 11/18/24 History mcg-226 mg-90 mg capsule (PreserVision AREDS) L.acidop,casei,lactis,rham-B.lact,catarino 1 cap PO DAILY #7 caps 09/22/24 11/18/24 Rx 625 mg (10 billion cell) capsule (Advanced Probiotic) nystatin 100,000 unit/gram topical 1 applic topical TID PRN Rash 11/18/24 11/18/24 History powder Patient History Medical History Anemia Chronic cough 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, 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 Hypothyroidism Myasthenia gravis "EFFECTS ONLY MY VOCAL CORDS" Arthritis Stress incontinence in female GERD (gastroesophageal reflux disease) Hx of cancer of endometrium Idiopathic hypersomnia ADHD Peripheral neuropathy Hx of migraines Irregular heart beats NO CARDS Hx of sleep apnea NO DEVICE Chronic obstructive pulmonary disease H/O Surgical History History of surgery lymph node removed from forehead (benign) Hx of cataract extraction right/left History of esophagogastroduodenoscopy (EGD) H/O colonoscopy with polypectomy H/O total hysterectomy History of tooth extraction Nausea and vomiting after administration of anesthetic agent Family History Other No family history of adverse response to anesthesia Social History Smoking Status: Never smoker Tobacco Type: Cigarettes Second Hand Exposure: No; Do You Dip or Chew Tobacco: No; Hx Alcohol Use: No Hx Substance Use: No Preferred Language: Vietnamese Communication Ability: Effective 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 Centre 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 Required: No Beliefs That Will Affect Care: None Current Living Situation: Family Feels Safe at Home: Yes Assistive Devices: Cane and Walker Review of Systems Respiratory: + dyspnea on exertion Gastrointestinal: + melena (questions darker stools than n ormal); no coffee ground emesis, no hematemesis and no blood in stools Physical Exam Constitutional: well developed Psychiatric: Orientation: alert and oriented x 3 Results & Data Vital Signs (Past 12 Hours) Vital Signs Temp Pulse Resp BP Pulse Ox O2 Del Method 11/18/24 15:38 36.8 C 77 19 129/85 100 11/18/24 15:15 36.4 C L 70 18 139/89 98 11/18/24 14:19 69 11/18/24 14:00 72 16 124/84 100 Room Air 11/18/24 13:30 71 12 132/66 100 Room Air 11/18/24 13:00 72 15 134/71 96 Room Air 11/18/24 12:30 72 14 136/61 98 Room Air 11/18/24 11:03 71 18 115/58 L 99 11/18/24 10:30 70 19 129/58 L 100 Room Air 11/18/24 10:21 72 11/18/24 10:20 72 24 118/46 L 99 Room Air 11/18/24 10:20 36.4 C L 71 18 129/58 L 97 Room Air PG Care Time/CCT Total # of Minutes Spent Total Time Spent with Patient: Total time spent is greater than 50% in coordination of care (as documented) at patient's floor/unit and/or counseling patient: Coding Level of Care Code 96409 INT INP/OBS CARE 3/75MIN Diagnoses Anemia D64.9 Anemia type: unspecified type (1) Anemia Anemia type: unspecified type Qualified Code(s): D64.9 - Anemia, unspecified
[2024-11-18] MEDS ORDERED: MELATONIN 3 MG TAB PO PRN (16:23)
--- NOTE | 2024-11-18 16:30 | Cardiology Consultation ---
Date of Consultation November 18, 2024 Assessment & Plan (1) Symptomatic anemia: (2) Presence of Watchman left atrial appendage closure device: (3) Diastolic congestive heart failure: (4) Paroxysmal atrial fibrillation: (5) Dyslipidemia: (6) Hypertension: Plan 69 year old female patient admitted to [facility] on 11/18/2024 with symptomatic anemia, hemoglobin 7.3 g/dL and + FOBT. History not overtly suggestive of active GI bleeding. Patient prescribed dual antiplatelet therapy with aspirin 81 mg/day and clopidogrel 75 mg/day, post September 16, 2024 [place]age [place] (# 24 [place]man[place] [facility] [place] Recommendations: * Continue dual antiplatelet therapy with aspirin and clopidogrel unless having active bleeding. * Agree with transfusion of pRBC's, IV PPI, serial monitoring of H&H * OK to hold clopidogrel x 3 days if needed for EGD, continuing aspirin without interruption. * [place]esophageal echocardiography [place]UD[place] [facility] [place], to confirm the absence of device related thrombus and significant peridevice leak. * See recommendations by attending beam department supervisor, Dr. Carlos Almodovar Supervising Physician Co-Signing Physician Notes Patient seen and examined. Past medical history, surgical history, social history and family history have been reviewed. The medical record and all the above studies have been reviewed. Case DW EDMUNDO including management. GI bleed Symptomatic anemia PAF S/P Watchman DM HLD HTN CKD for EGD as per GI OK to hold Plavix for EGD May have to hold ASA as well if H/H drops on ASA f/u H/H PRBC as indicated correct and f/u electrolytes f/u renal function GDMT for HFrEF limited due to renal insufficiency and low BP adjust anti-HTN meds keeping systolic BP between 100-140 mmHg keep patient euvolemic History of Present Illness Reason for Consultation: "Watchman procedure in August, still on DAPT, anemia." Requesting Physician: [facility], Zoe Clark PA-C [facility] Jim[facility] MD History of Present Illness Patient Lisa Monsivais is a 69-year-old female who underwent left atrial appendage occlusion (# 24 mm Watchman) on September 16, [address] [facility] [address] Jean. Aspirin and clopidogrel prescribed post implantation for at least 45 days. Transesophageal echocardiography was scheduled to be performed on November 03, 2024 at 10 AM however patient canceled the JUD due to transportation issues (sister provides transportation, her daughter had a medical crisis in [place]). The follow-up JUD is now scheduled to be performed at [facility] in [place], [place] on December 10, 2024. Patient referred to the [facility] ER on November 18, 2024 due to concerns regarding symptomatic anemia, possible GI bleeding. Outpatient CBC revealed a hemoglobin of 6.8 g/dL. Hemoglobin on presentation to the [facility] ER was 7.3 g/dL. Patient nontes dark stools over the past 1 to 2 weeks, nausea, vomiting, some abdominal pain, occasional reflux for which she takes famotidine twice per day, generalized weakness. No loose stool/diarrhea. She has chronic stable constipation. No epistaxis. No hemoptysis. No gross hematuria. Occa sional fleeting chest pain without associated signs or symptoms, occurring without rhyme or reason. Patient chronically short of breath with activities of daily living. CPAP is supposed to be utilized at nighttime. No reported orthopnea or PND. No abrupt weight change. No fevers or chills. Past Medical and Surgical History Symptomatic paroxysmal atrial fibrillation [id number] Score 6 points Spontaneous iliopsoas hemorrhage/hematoma in September 2023, discontinuation of anticoagulation at that time Status post September 16, 2024 # 24 mm Watchman implantation at [facility], Dr. Jean Diastolic congestive heart failure Hypertension Dyslipidemia Type 2 diabetes mellitus, insulin-dependent Stage III chronic kidney disease Obesity Venous insufficiency History of lower extremity cellulitis Obstructive sleep apnea, CPAP therapy Endometrial cancer Myasthenia gravis Migraine headaches Hypothyroidism Depression Status post hysterectomy Family History: Mother had sinus node dysfunction status post permanent pacemaker implantation. Father had a history of atrial fibrillation and aortic valve disease. No biological siblings. Social History: Former smoker having quit in 1990 after smoking up to 2 packs/day x 25 years. Alcohol: 2 glasses of wine per day. No illegal/illicit drug use. Lives alone. Sister Carmela. 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 Now residing at [facility]. Allergies Allergy/AdvReac Type Severity Reaction Status Date / Time lisinopril Allergy Intermediate Cough Unverified 09/20/24 15:22 penicillin G Allergy Intermediate HIVES Verified 09/20/24 15:22 codeine AdvReac Intermediate VOMITING Verified 09/20/24 15:22 hydrocodone AdvReac Intermediate Vomiting Verified 09/20/24 15:22 Home Medications Medication Instructions Recorded Confirmed Type atorvastatin 20 mg tablet 20 mg PO QAM #30 tabs 10/24/23 11/18/24 Rx bupropion HCl 100 mg tablet,12 hr 100 mg PO QAM #30 ea 10/24/23 11/18/24 Rx sustained-release bupropion HCl 150 mg tablet,12 hr 150 mg PO QAM #30 ea 10/24/23 11/18/24 Rx sustained-release cyanocobalamin (vitamin B-12) 1,000 mcg PO QAM #30 tabs 10/24/23 11/18/24 Rx 1,000 mcg tablet mirabegron 50 mg tablet,extended 50 mg PO QAM #30 tabs 10/24/23 11/18/24 Rx release 24 hr (Myrbetriq) albuterol sulfate 90 mcg/actuation 2 puff inhalation Q4 PRN cough/sob 03/26/24 11/18/24 History aerosol inhaler amiodarone 200 mg tablet 200 mg PO QPM 03/26/24 11/18/24 History benzonatate 100 mg capsule 100 mg PO TID PRN Cough 03/26/24 11/18/24 History cholecalciferol (vitamin D3) 50 50 mcg PO QAM 03/26/24 11/18/24 History mcg (2,000 unit) tablet (Vitamin D3) famotidine 20 mg tablet (Pepcid) 20 mg PO AMPM 03/26/24 11/18/24 History fluoxetine 60 mg tablet 60 mg PO QPM 03/26/24 11/18/24 History fluticasone 250 mcg-salmeterol 50 1 ea inhalation QPM PRN Coughing 03/26/24 11/18/24 History mcg/dose blistr powdr for inhalation insulin aspart U-100 100 unit/mL 0 unit subcut WM 03/26/24 11/18/24 History (3 mL) subcutaneous pen (Novolog FlexPen U-100 Insulin aspart) insulin degludec 100 18 unit subcut QPM 03/26/24 11/18/24 History unit-liraglutide 3.6 mg/mL(3 mL) subcutaneous pen (Xultophy 100/3.6) insulin glargine 100 unit/mL 3 unit subcut PM 03/26/24 11/18/24 History subcutaneous solution (Lantus U-100 Insulin) levothyroxine 50 mcg tablet 50 mcg PO DAILYBB 03/26/24 11/18/24 History ondansetron HCl 4 mg tablet 4 mg PO Q6 PRN Nausea And Vomiting 03/26/24 11/18/24 History polyethylene glycol 3350 17 gram 17 g PO DAILY PRN Constipation 03/26/24 0 11/18/24 History oral powder packet (Miralax) docusate sodium 100 mg capsule 100 mg PO BID #60 caps 04/01/24 11/18/24 Rx (Colace) aspirin 81 mg tablet,delayed 81 mg PO DAILY 09/20/24 11/18/24 History release clopidogrel 75 mg tablet 75 mg DAILY 09/20/24 11/18/24 History metolazone 10 mg tablet 2.5 mg PO DAILY PRN Weight Gain 09/20/24 11/18/24 History torsemide 40 mg tablet 40 mg PO DAILY 09/20/24 11/18/24 History vitamins A,C,L-vwll-tcyedu 4,296 1 cap PO BID 09/20/24 11/18/24 History mcg-226 mg-90 mg capsule (PreserVision AREDS) L.acidop,casei,lactis,rham-B.lact,catarino 1 cap PO DAILY #7 caps 09/22/24 11/18/24 Rx 625 mg (10 billion cell) capsule (Advanced Probiotic) nystatin 100,000 unit/gram topical 1 applic topical TID PRN Rash 11/18/2411/18 History powder Patient History Medical History Anemia Chronic cough 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, 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 Hypothyroidism Myasthenia gravis "EFFECTS ONLY MY VOCAL CORDS" Arthritis Stress incontinence in female GERD (gastroesophageal reflux disease) Hx of cancer of endometrium Idiopathic hypersomnia ADHD Peripheral neuropathy Hx of migraines Irregular heart beats NO CARDS Hx of sleep apnea NO DEVICE Chronic obstructive pulmonary disease H/O Surgical History History of surgery lymph node removed from forehead (benign) Hx of cataract extraction right/left History of esophagogastroduodenoscopy (EGD) H/O colonoscopy with polypectomy H/O total hysterectomy History of tooth extraction Nausea and vomiting after administration of anesthetic agent Family History Other No family history of adverse response to anesthesia Social History Smoking Status: Former smoker Tobacco Type: Cigarettes Second Hand Exposure: No; Do You Dip or Chew Tobacco: No; Hx Alcohol Use: Yes Alcohol type: wine Hx Substance Use: No Preferred Language: Slovenian Communication Ability: Effective 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 Physical Exam Physical Exam: General: A&Ox3. NAD. Elevated BMI. Skin: Pale HENT: Normocephalic. Atraumatic. Mouth: Poor dentition. Eyes: PER. Conjunctiva pink, sclera pale Neck: No overt JVD. Heart: RRR, 76 bpm. Grade II/ systolic ejection murmur. No diastolic murmur. Lungs: Diminished. Decreased. No wheeze. Abdomen: +BS. Soft. Nontender. No masses or organomegaly. Extremities: Mild right greater than left khoury erythema without overt cellulitis. Mild edema. No cyanosis. Limited neurological examination is without focal deficits. Pulses: Posterior tibial=1/4. Results & Data Vital Signs (Past 12 Hours) Vital Signs Temp Pulse Resp BP Pulse Ox O2 Del Method 11/18/24 16:09 69 15 98 11/18/24 16:00 131/72 11/18/24 16:00 131/72 11/18/24 15:53 36.5 C 84 19 131/72 99 11/18/24 15:51 69 19 99 11/18/24 15:38 129/85 11/18/24 15:38 36.8 C 77 19 129/85 100 11/18/24 15:33 69 15 98 11/18/24 15:30 136/67 11/18/24 15:30 136/67 11/18/24 15:30 136/67 11/18/24 15:27 70 15 100 11/18/24 15:15 36.4 C L 70 18 139/89 98 11/18/24 15:00 70 17 100 11/18/24 15:00 139/89 11/18/24 15:00 139/89 11/18/24 14:30 125/60 11/18/24 14:30 70 16 96 11/18/24 14:19 69 11/18/24 14:00 72 16 124/84 100 Room Air 11/18/24 13:30 71 12 132/66 100 Room Air 11/18/24 13:00 72 15 134/71 96 Room Air 11/18/24 12:30 72 14 136/61 98 Room Air 11/18/24 11:03 71 18 115/58 L 99 11/18/24 10:30 70 19 129/58 L 100 Room Air 11/18/24 10:21 72 11/18/24 10:20 72 24 118/46 L 99 Room Air 11/18/24 10:20 36.4 C L 71 18 129/58 L 97 Room Air Laboratory Results Cardiac Enzymes 11/18/24 Range/Units 10:17 AST 54 H (13-39) U/L Troponin I High Sens 7.8 (0-14) pg/ml Coagulation 11/18/24 Range/Units 10:17 PT 10.6 (9.0-12.0) Seconds APTT 21 (21-31) Seconds CBC 11/18/24 Range/Units 10:17 WBC 9.74 (4.8-10.8) K/ul RBC 2.90 L (4.20-5.40) M/uL Hgb 7.3 L (12.0-16.0) g/dl Hct 24.1 L (37.0-47.0) % Plt Count 297 (130-400) K/uL Neut # (Auto) 7.63 H (1.40-6.50) K/uL Lymph # (Auto) 1.20 (1.20-3.40) K/uL [place] # (Auto) 0.74 H (0.11-0.59) K/uL Eos # (Auto) 0.08 (0.00-0.50) K/uL Baso # (Auto) 0.05 (0.00-0.20) K/uL Comprehensive Metabolic Panel 11/18/24 Range/Units 10:17 Sodium 137 (136-145) mmol/L Potassium 4.1 (3.5-5.1) mmol/L Chloride 101 (98-107) mmol/L Carbon Dioxide 29 (21-32) mmol/L BUN 37 H (6-23) mg/dl Creatinine 1.66 H (0.6-1.2) mg/dl Glucose 180 H (70-99(Fasting)) mg/dl Calcium 9.2 (8.6-10.3) mg/dl AST 54 H (13-39) U/L ALT 46 (7-52) U/L Alkaline Phosphatase 43 (34-104) U/L Total Protein 6.8 (6.0-8.3) gm/dl Albumin 3.5 (3.4-5.0) gm/dl Intake and Output 11/18/24 11/18/24 11/18/24 06:59 14:59 22:59 Intake Total 120 / 620 500 / 620 Balance 120 / 620 500 / 620 Intake: IV 120 / 620 500 / 620 PANTOprazole 80 mg In Dextrose 120 / 120 5% 100 ml @ 400 mls/hr IV NOW ONE Rx#:[id number] Sodium Chloride 0.9% 500 ml @ 500 / 500 999 mls/hr IV .Q31M [facility] Rx#: [id number] Intake (Blood Product) Amt 0 / 0 Packed Cells, Leukoreduced 0 / 0 Unit [id number] Other: Weight 114.9 kg 114.9 kg Weight Measurement Method Built in [facility] Stated by Patient Patient Weight 11/19/24 06:59 Weight 114.9 kg Diagnostic Findings Chest x-ray on admission shows no acute cardiopulmonary abnormality. CT scan of the abdomen pelvis on admission demonstrated the following: Lung bases: A left atrial occlusion devices noted. The heart is enlarged and without pericardial effusion. There is coronary artery atherosclerosis. The mitral annulus is densely calcified. A tiny hiatal hernia is noted. The lung bases are clear. Liver: The contrast-enhanced liver is normal in size, contour, and attenuation. There is no intrahepatic biliary ductal dilatation. The hepatic veins and portal veins are patent. Gallbladder: Unremarkable. Spleen: Normal in size and attenuation. There are calcified splenic granulomas. Pancreas: Unremarkable. Adrenal glands: Unremarkable. Kidneys: The contrast enhanced kidneys demonstrate mild cortical atrophy and are without hydronephrosis. The kidneys enhance symmetrically. There are at least 2 nonobstructing right renal calculi which measure up to 10 mm. A 6 mm nonobstructing calculus is seen on the left. No ureteral stone is identified. There is nonspecific bilateral perinephric stranding. Abdominal vasculature: The abdominal aorta is normal in course and caliber noting mild atherosclerotic calcification. Bowel: There is mild colonic fecal retention. No bowel obstruction is seen. No intraluminal contrast is identified to suggest a site of GI bleeding. The appendix is well-visualized and normal. Peritoneum: There is no intraperitoneal free air or abdominal ascites. There is asymmetric atrophy of the right iliopsoas musculature as compared to the left. Lymphadenopathy: None. Pelvic viscera: The bladder is distended and contains a small focus of intraluminal gas. The uterus is surgically absent. No adnexal lesion is seen. Skeletal structures: The skeletal structures are osteopenic. There is mild lumbosacral spondylosis with a large posterior disc osteophyte complex at L4-L5. Sclerotic change is seen in the sacroiliac joints. No lytic or blastic lesions are seen. EKG on presentation reveals sinus with low atrial focus, ventricular rate of 72 bpm. Low voltage QRS. Possible old septal infarct. When compared to prior available tracings, no significant change. ER telemetry benign. PG Care Time/CCT Total # of Minutes Spent Total Time Spent with Patient: Total time spent is greater than 50% in coordination of care (as documented) at patient's floor/unit and/or counseling patient. I spent a total of 75 minutes on the date of service in preparation, delivery, and documentation of the care provided to this patient excluding any time spent in the performance of separately billed services. This visit was a split-shared visit with the substantive portion of the medical decision making performed by the supervising beam department supervisor/billing provider. Coding Level of Care Code 51379 IN/OBS CONSULT LVL 5,80M Diagnoses Symptomatic anemia D64.9 Presence of Watchman left atrial appendage closure device Z95.818 Diastolic congestive heart failure I50.30 Paroxysmal atrial fibrillation I48.0 Dyslipidemia E78.5 Hypertension I10
[2024-11-18] MEDS ORDERED: FLUTICASONE/VILANTEROL 100/25MCG 14 PUFFS/INHALER INH PRN (17:00)
[2024-11-18] MEDS ORDERED: ALBUTEROL HFA 8 GM INHALER INH PRN (17:00)
[2024-11-18] MEDS: CEROVITE ADV FORMULA TAB PO SCH (17:35)
[2024-11-18] MEDS: INSULIN ASPART PER UNIT CHARGE SC SCH (17:41)
[2024-11-18] MEDS: CLOPIDOGREL BISULFATE 75 MG TAB PO SCH (18:18)
[2024-11-18] MEDS: ASPIRIN 81 MG ECTAB PO SCH (18:18)
[2024-11-18] MEDS ORDERED: Nursing to Pharmacy Communication SCH (18:30)
[2024-11-18 20:22] LABS: Hematocrit (blood only) 27.9 % (37.0-47.0); Hemoglobin 8.8 g/dl (12.0-16.0)
[2024-11-18] MEDS: LANTUS PER UNIT CHARGE SC SCH (21:49)
[2024-11-18] MEDS: NYSTATIN POWDER 15GM BTL EXT SCH (21:52)
[2024-11-18] MEDS: AMIODARONE 200 MG TAB PO SCH (21:52)
[2024-11-18] MEDS: PANTOprazole 40 MG/10 ML SYR IV SCH (21:53)
[2024-11-19 06:36] LABS: Hematocrit (blood only) 26.0 % (37.0-47.0); Hemoglobin 8.2 g/dl (12.0-16.0); Mean Corpuscular Hemoglobin 26.1 pg (25.0-34.0); Mean Corpuscular Volume 82.8 fL (80.0-100.0); Platelet Count 257 K/uL (130-400); RDW Standard Deviation 44.9 fL (36.4-46.3); Red Blood Count 3.14 M/uL (4.20-5.40); White Blood Count 8.23 K/ul (4.8-10.8)
[2024-11-19] MEDS: LEVOTHYROXINE SODIUM 50 MCG TABLET PO SCH (06:48)
[2024-11-19 06:55] LABS: Alanine Aminotransferase 45.0 U/L (7-52); Albumin Globulin Ratio 1.1 (0.9-2); Alkaline Phosphatase 40.0 U/L (34-104); Anion Gap 6.0 (3-11); Bilirubin,Total 0.6 mg/dl (0.2-1.0); Blood Urea Nitrogen 34.0 mg/dl (6-23); Calcium 9.0 mg/dl (8.6-10.3); Carbon Dioxide 31.0 mmol/L (21-32); Chloride 102.0 mmol/L (98-107); Creatinine Clr Calc Pharmacy 39.9 ml/min; Globulin 2.9 gm/dl (2.5-4.0); Glucose 137.0 mg/dl (70-99(Fasting)); Magnesium 2.0 mg/dl (1.7-2.4); Potassium 4.1 mmol/L (3.5-5.1); Sodium 139.0 mmol/L (136-145); Total Protein 6.2 gm/dl (6.0-8.3)
[2024-11-19] MEDS: TORSEMIDE 20 MG TAB PO SCH (08:20)
[2024-11-19] MEDS: CHOLECALCIFEROL 25 MCG (1000 UNITS) TAB PO SCH (08:21)
[2024-11-19] MEDS: VIBEGRON 75 MG TAB PO SCH (08:21)
[2024-11-19] MEDS: ATORVASTATIN 20 MG TAB PO SCH (08:21)
[2024-11-19] MEDS: CYANOCOBALAMIN (B-12) 500 MCG TABLET PO SCH (08:22)
[2024-11-19] MEDS: ADVANCED PROBIOTIC 625 MG CAPSULE PO SCH (08:22)
--- NOTE | 2024-11-19 10:44 | Gastroenterology Progress Note ---
Date of Service November 19, 2024 Assessment & Plan (1) GI bleed: Plan: 69 year old female with history of insulin-dependent T2DM, dyslipidemia, hypothyroidism, diastolic heart failure, paroxysmal AFib, HTN, CKD3, depression, on DAPT from recent Watchman device and other below admitted w/ symptomatic anemia and report of dark stools - Continue supportive measures - Trend H/H - Monitor and document GI output - Transfuse PRN per primary team - Continue IV PPI therapy - Tentative plan for EGD Friday - Cardiology consultation reviewed - OK to hold clopidogrel x 3 days - Continue aspirin without interruption I spent a total of 40 minutes on the date of service in review of patient's record, and previously obtained information in person and appropriate medical visit, discussion and education of plan, with patient and/or caregiver, placing orders for tests/referral/procedures as medically necessary and documentation of pertinent clinical information in patient's medical records for their visit today. Admission and Anticipated Discharge Date Admission Date: November 18, 2024 Subjective Pt was seen and evaluated, chart reviewed. This AM she is feeling well. Denies abd pain, nausea/vomiting. She does not recall when he last BM was but suggests she has not moved her stools today. 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 There is no intrahepatic biliary ductal dilatation. The hepatic veins and portal veins are patent. Gallbladder: Unremarkable. Pancreas: Unremarkable. Abdominal vasculature: The abdominal aorta is normal in course and caliber noting mild atherosclerotic calcification. Bowel: There is mild colonic fecal retention. No bowel obstruction is seen. No intraluminal contrast is identified to suggest a site of GI bleeding. The appendix is well-visualized and normal. Colonoscopy 2022: - Hemorrhoids found on perianal exam. - The examined portion of the ileum was normal. - Internal hemorrhoids. - The examination was otherwise normal. Colonoscopy 2022: - Internal hemorrhoids. - One 5 mm polyp in the rectum, removed with a cold snare. Resected and retrieved. - One 12 mm polyp in the cecum, removed with mucosal resection. Resected and retrieved. Clip (MR conditional) was placed. Clip manager laboratory: [facility]. - One 30 mm polyp in the cecum, removed with mucosal resection. Resected and retrieved. Clips (MR conditional) were placed. Clip manager laboratory: [facility]. - 12 mm polyp Mucosal resection was performed. Resection was complete, and retrieval was complete. - 30 mm polyp Mucosal resection was performed. Resection was complete, and retrieval was complete. Review of Systems Review of Systems: All other findings negative except as noted in HPI. Physical Exam Constitutional: WD/WN, vitals as above Respiratory: normal respiratory effort, lungs clear to auscultation Cardiovascular: RRR, no murmur, no edema Gastrointestinal (Abdomen): normal bowel sounds, soft, nontender, no hepatosplenomegaly Skin: no rashes, warm and dry Results & Data Results & Data Vital Signs (Past 12 Hours) Vital Signs Temp Pulse Resp BP Pulse Ox O2 Del Method 11/19/24 07:40 97.7 F 68 17 156/72 H 98 Room Air 11/19/24 03:33 97.9 F 87 16 127/88 98 Room Air 11/18/24 23:28 98.2 F 78 17 120/60 96 Room Air Laboratory Results 11/19/24 11/19/24 11/18/24 Range/Units 07:30 05:58 21:24 WBC 8.23 (4.8-10.8) K/ul RBC 3.14 L (4.20-5.40) M/uL Hgb 8.2 L (12.0-16.0) g/dl Hct 26.0 L (37.0-47.0) % MCV 82.8 (80.0-100.0) fL MCH 26.1 (25.0-34.0) pg MCHC 31.5 L (32.0-36.0) g/dL RDW Std Deviation 44.9 (36.4-46.3) fL RDW Coeff of Buck 14.8 H (11.5-14.5) % Plt Count 257 (130-400) K/uL MPV 10.3 (9.4-12.4) fL Immature Gran % (Auto) % Neut % (Auto) % Lymph % (Auto) % [place] % (Auto) % Eos % (Auto) % Baso % (Auto) % Neut # (Auto) (1.40-6.50) K/uL Lymph # (Auto) (1.20-3.40) K/uL [place] # (Auto) (0.11-0.59) K/uL Eos # (Auto) (0.00-0.50) K/uL Baso # (Auto) (0.00-0.20) K/uL Immature Gran # (Auto) (0.01-0.20) K/uL Polychromasia PT (9.0-12.0) Seconds INR (0.9-1.1) APTT (21-31) Seconds PTT Ratio Sodium 139 (136-145) mmol/L Potassium 4.1 (3.5-5.1) mmol/L Chloride 102 (98-107) mmol/L Carbon Dioxide 31 (21-32) mmol/L Anion Gap 6 (3-11) BUN 34 H (6-23) mg/dl Creatinine 1.55 H (0.6-1.2) mg/dl Est Cr Clr Drug Dosing 39.9 ml/min eGFR 35.60 BUN/Creatinine Ratio 21.9 H (10-20) Glucose 137 H (70-99(Fasting)) mg/dl POC Glucose 139 H 244 H (70-99) mg/dl Calcium 9.0 (8.6-10.3) mg/dl Phosphorus 3.7 (2.5-4.9) mg/dl Magnesium 2.0 (1.7-2.4) mg/dl Total Bilirubin 0.6 (0.2-1.0) mg/dl AST 50 H (13-39) U/L ALT 45 (7-52) U/L Alkaline Phosphatase 40 (34-104) U/L Troponin I High Sens (0-14) pg/ml Total Protein 6.2 (6.0-8.3) gm/dl Albumin 3.3 L (3.4-5.0) gm/dl Globulin 2.9 (2.5-4.0) gm/dl Albumin/Globulin Ratio 1.1 (0.9-2) Lipase (11-82) U/L SARS-CoV-2, RNA, NAAT (NEGATIVE) Blood Type Blood Type Recheck Antibody Screen Crossmatch 11/18/24 11/18/24 11/18/24 Range/Units 19:06 16:52 12:58 WBC (4.8-10.8) K/ul RBC (4.20-5.40) M/uL Hgb 8.8 L (12.0-16.0) g/dl Hct 27.9 L (37.0-47.0) % MCV (80.0-100.0) fL MCH (25.0-34.0) pg MCHC (32.0-36.0) g/dL RDW Std Deviation (36.4-46.3) fL RDW Coeff of Buck (11.5-14.5) % Plt Count (130-400) K/uL MPV (9.4-12.4) fL Immature Gran % (Auto) % Neut % (Auto) % Lymph % (Auto) % [place] % (Auto) % Eos % (Auto) % Baso % (Auto) % Neut # (Auto) (1.40-6.50) K/uL Lymph # (Auto) (1.20-3.40) K/uL [place] # (Auto) (0.11-0.59) K/uL Eos # (Auto) (0.00-0.50) K/uL Baso # (Auto) (0.00-0.20) K/uL Immature Gran # (Auto) (0.01-0.20) K/uL Polychromasia PT (9.0-12.0) Seconds INR (0.9-1.1) APTT (21-31) Seconds PTT Ratio Sodium (136-145) mmol/L Potassium (3.5-5.1) mmol/L Chloride (98-107) mmol/L Carbon Dioxide (21-32) mmol/L Anion Gap (3-11) BUN (6-23) mg/dl Creatinine (0.6-1.2) mg/dl Est Cr Clr Drug Dosing ml/min eGFR BUN/Creatinine Ratio (10-20) Glucose (70-99(Fasting)) mg/dl POC Glucose 123 H (70-99) mg/dl Calcium (8.6-10.3) mg/dl Phosphorus (2.5-4.9) mg/dl Magnesium (1.7-2.4) mg/dl Total Bilirubin (0.2-1.0) mg/dl AST (13-39) U/L ALT (7-52) U/L Alkaline Phosphatase (34-104) U/L Troponin I High Sens (0-14) pg/ml Total Protein (6.0-8.3) gm/dl Albumin (3.4-5.0) gm/dl Globulin (2.5-4.0) gm/dl Albumin/Globulin Ratio (0.9-2) Lipase (11-82) U/L SARS-CoV-2, RNA, NAAT NEGATIVE (NEGATIVE) Blood Type Blood Type Recheck Antibody Screen Crossmatch 11/18/24 11/18/24 Range/Units 11:07 10:17 WBC 9.74 (4.8-10.8) K/ul RBC 2.90 L (4.20-5.40) M/uL Hgb 7.3 L (12.0-16.0) g/dl Hct 24.1 L (37.0-47.0) % MCV 83.1 (80.0-100.0) fL MCH 25.2 (25.0-34.0) pg MCHC 30.3 L (32.0-36.0) g/dL RDW Std Deviation 46.0 (36.4-46.3) fL RDW Coeff of Buck 15.1 H (11.5-14.5) % Plt Count 297 (130-400) K/uL MPV 10.3 (9.4-12.4) fL Immature Gran % (Auto) 0.4 % Neut % (Auto) 78.4 % Lymph % (Auto) 12.3 % [place] % (Auto) 7.6 % Eos % (Auto) 0.8 % Baso % (Auto) 0.5 % Neut # (Auto) 7.63 H (1.40-6.50) K/uL Lymph # (Auto) 1.20 (1.20-3.40) K/uL [place] # (Auto) 0.74 H (0.11-0.59) K/uL Eos # (Auto) 0.08 (0.00-0.50) K/uL Baso # (Auto) 0.05 (0.00-0.20) K/uL Immature Gran # (Auto) 0.04 (0.01-0.20) K/uL Polychromasia 1+ PT 10.6 (9.0-12.0) Seconds INR 1.0 (0.9-1.1) APTT 21 (21-31) Seconds PTT Ratio 0.8 Sodium 137 (136-145) mmol/L Potassium 4.1 (3.5-5.1) mmol/L Chloride 101 (98-107) mmol/L Carbon Dioxide 29 (21-32) mmol/L Anion Gap 7 (3-11) BUN 37 H (6-23) mg/dl Creatinine 1.66 H (0.6-1.2) mg/dl Est Cr Clr Drug Dosing 37.3 ml/min eGFR 32.79 BUN/Creatinine Ratio 22.3 H (10-20) Glucose 180 H (70-99(Fasting)) mg/dl POC Glucose (70-99) mg/dl Calcium 9.2 (8.6-10.3) mg/dl Phosphorus (2.5-4.9) mg/dl Magnesium (1.7-2.4) mg/dl Total Bilirubin 0.5 (0.2-1.0) mg/dl AST 54 H (13-39) U/L ALT 46 (7-52) U/L Alkaline Phosphatase 43 (34-104) U/L Troponin I High Sens 7.8 (0-14) pg/ml Total Protein 6.8 (6.0-8.3) gm/dl Albumin 3.5 (3.4-5.0) gm/dl Globulin 3.3 (2.5-4.0) gm/dl Albumin/Globulin Ratio 1.1 (0.9-2) Lipase 13 (11-82) U/L SARS-CoV-2, RNA, NAAT (NEGATIVE) Blood Type A Positive Blood Type Recheck A Positive Antibody Screen NEGATIVE Crossmatch See Detail PG Care Time/CCT Total # of Minutes Spent Total Time Spent with Patient: Total time spent is greater than 50% in coordination of care (as documented) at patient's floor/unit and/or counseling patient: Coding Level of Care Code 50950 SUB INP/OBS CARE 2/35MIN Diagnoses GI bleed K92.2 GI bleed type/associated pathology: unspecified gastrointestinal hemorrhage type (1) GI bleed GI bleed type/associated pathology: unspecified gastrointestinal hemorrhage type Qualified Code(s): K92.2 - Gastrointestinal hemorrhage, unspecified
[2024-11-19 12:25] LABS: Hematocrit (blood only) 26.3 % (37.0-47.0); Hemoglobin 8.5 g/dl (12.0-16.0)
--- NOTE | 2024-11-19 13:06 | Pharmacy Report ---
Pharmacy Glycemic Short Note 2 - Date of Service November 19, 2024 - Glycemic Short BSG Results (Last 24 hours): 11/18/24 11/18/24 11/19/24 16:52 21:24 05:58 Glucose 137 H POC Glucose 123 H 244 H 11/19/24 11/19/24 07:30 12:21 Glucose POC Glucose 139 H 179 H OUTPATIENT ANTIDIABETIC REGIMEN: * Xultophy, lantus 3 units qPM, + Novolog SS * A1c 6.8% 09/21/24 ASSESSMENT: * Patient with type II diabetes admitted for GI Bleed. Initially NPO this morning, diet has been resumed * Fasting 139 mg/dL this morning with 8 units of lantus last PM. Will continue with this today. * Correction/Carb ratio initiated using weight based dosing (stress 2) PLAN FOR INPATIENT GLYCEMIC CONTROL: * Basal insulin * Lantus 8 units SQ HS * Bolus insulin * NovoLog per scale ACHS or Q6hrs while NPO * Goal Range: Low 120 mg/dL - High 160 mg/dL * Correction Factor: 30 mg/dL/unit * Nutritional / Prandial insulin per carb ratio of 1 unit per 10 grams CHO consumed
--- NOTE | 2024-11-19 14:21 | Cardiology Progress Note ---
Date of Service November 19, 2024 Assessment & Plan (1) Symptomatic anemia: (2) Presence of Watchman left atrial appendage closure device: (3) Diastolic congestive heart failure: (4) Paroxysmal atrial fibrillation: (5) Dyslipidemia: (6) Hypertension: Plan 69 year old female patient admitted to [facility] on 11/18/2024 with symptomatic anemia, hemoglobin 7.3 g/dL and + FOBT. History not overtly suggestive of active GI bleeding. Patient prescribed dual antiplatelet therapy with aspirin 81 mg/day and clopidogrel 75 mg/day, post September 16, 2024 left atrial appendage occlusion (# 24 mm Watchman) at [facility] [place]. GI bleed Symptomatic anemia - better s/p 1 U PRBC Constipation - defer to hospitalist, GI PAF S/P Watchman DM HLD HTN CKD for EGD as per GI OK to hold Plavix for EGD May have to hold ASA as well if H/H drops on ASA f/u H/H PRBC as indicated correct and f/u electrolytes f/u renal function adjust anti-HTN meds keeping systolic BP between 100-140 mmHg keep patient euvolemic Transesophageal echocardiography (JUD) at [facility] as scheduled on 12/10/2024, to confirm the absence of device related thrombus and significant peridevice leak. Admission and Anticipated Discharge Date Admission Date: November 18, 2024 Subjective Patient on exam is lying in bed in NAD; no c/o cp, sob, palpitations, dizziness, LOC, cough, fever, nausea, vomiting, abdominal pain; patient states that she has not had a BM in more than 4 days Review of Systems Review of Systems: Complete Review of Systems is as stated above, negative, or noncontributory. Physical Exam Physical Exam: General: A&Ox3. NAD. Elevated BMI. Skin: Pale HENT: Normocephalic. Atraumatic. Mouth: Poor dentition. Eyes: PER. Conjunctiva pink, sclera pale Neck: No overt JVD. Heart: RRR. Grade II/ systolic ejection murmur. No diastolic murmur. Lungs: Diminished. Decreased. No wheeze. Abdomen: +BS. Soft. Nontender. No masses or organomegaly. Extremities: Mild right greater than left khoury erythema without overt cellulitis. Mild edema. No cyanosis. Limited neurological examination is without focal deficits. Results & Data Vital Signs (Past 12 Hours) Vital Signs Temp Pulse Resp BP Pulse Ox O2 Del Method 11/19/24 12:33 36.3 C L 67 17 147/70 H 97 Room Air 11/19/24 07:40 36.5 C 68 17 156/72 H 98 Room Air 11/19/24 03:33 36.6 C 87 16 127/88 98 Room Air Laboratory Results Cardiac Enzymes 11/19/24 Range/Units 05:58 AST 50 H (13-39) U/L CBC 11/18/24 11/19/24 11/19/24 Range/Units 19:06 05:58 12:12 WBC 8.23 (4.8-10.8) K/ul RBC 3.14 L (4.20-5.40) M/uL Hgb 8.8 L 8.2 L 8.5 L (12.0-16.0) g/dl Hct 27.9 L 26.0 L 26.3 L (37.0-47.0) % Plt Count 257 (130-400) K/uL Comprehensive Metabolic Panel 11/19/24 Range/Units 05:58 Sodium 139 (136-145) mmol/L Potassium 4.1 (3.5-5.1) mmol/L Chloride 102 (98-107) mmol/L Carbon Dioxide 31 (21-32) mmol/L BUN 34 H (6-23) mg/dl Creatinine 1.55 H (0.6-1.2) mg/dl Glucose 137 H (70-99(Fasting)) mg/dl Calcium 9.0 (8.6-10.3) mg/dl AST 50 H (13-39) U/L ALT 45 (7-52) U/L Alkaline Phosphatase 40 (34-104) U/L Total Protein 6.2 (6.0-8.3) gm/dl Albumin 3.3 L (3.4-5.0) gm/dl Intake and Output 11/18/24 11/19/24 11/19/24 22:59 06:59 14:59 Intake Total 1120 / 1240 Output Total 800 / 800 Balance 1120 / 440 -800 / 440 Intake: IV 500 / 620 Sodium Chloride 0.9% 500 ml @ 500 / 500 999 mls/hr IV .Q31M [facility] Rx#: [id number] Intake (Blood Product) Amt 310 / 310 Packed Cells, Leukoreduced 310 / 310 Unit [id number] Other 310 / 310 Packed Cells, Leukoreduced 310 / 310 Unit [id number] Output: Urine Amount (Catheter) 800 / 800 External 800 / 800 Other: Weight 114.9 kg 114.7 kg Weight Measurement Method Stated by Patient Built in [facility] Diagnostic Findings Laboratory Results WBC 8.23 K/ul (4.8-10.8) 11/19/24 05:58 RBC 3.14 M/uL (4.20-5.40) L 11/19/24 05:58 Hgb 8.5 g/dl (12.0-16.0) L 11/19/24 12:12 Hct 26.3 % (37.0-47.0) L 11/19/24 12:12 MCV 82.8 fL (80.0-100.0) 11/19/24 05:58 MCH 26.1 pg (25.0-34.0) 11/19/24 05:58 MCHC 31.5 g/dL (32.0-36.0) L 11/19/24 05:58 RDW Std Deviation 44.9 fL (36.4-46.3) 11/19/24 05:58 RDW Coeff of Buck 14.8 % (11.5-14.5) H 11/19/24 05:58 Plt Count 257 K/uL (130-400) 11/19/24 05:58 MPV 10.3 fL (9.4-12.4) 11/19/24 05:58 Immature Gran % (Auto) 0.4 % 11/18/24 10:17 Neut % (Auto) 78.4 % 11/18/24 10:17 Lymph % (Auto) 12.3 % 11/18/24 10:17 [place] % (Auto) 7.6 % 11/18/24 10:17 Eos % (Auto) 0.8 % 11/18/24 10:17 Baso % (Auto) 0.5 % 11/18/24 10:17 Neut # (Auto) 7.63 K/uL (1.40-6.50) H 11/18/24 10:17 Lymph # (Auto) 1.20 K/uL (1.20-3.40) 11/18/24 10:17 [place] # (Auto) 0.74 K/uL (0.11-0.59) H 11/18/24 10:17 Eos # (Auto) 0.08 K/uL (0.00-0.50) 11/18/24 10:17 Baso # (Auto) 0.05 K/uL (0.00-0.20) 11/18/24 10:17 Immature Gran # (Auto) 0.04 K/uL (0.01-0.20) 11/18/24 10:17 Polychromasia 1+ 11/18/24 10:17 PT 10.6 Seconds (9.0-12.0) 11/18/24 10:17 INR 1.0 (0.9-1.1) 11/18/24 10:17 APTT 21 Seconds (21-31) 11/18/24 10:17 PTT Ratio 0.8 11/18/24 10:17 Sodium 139 mmol/L (136-145) 11/19/24 05:58 Potassium 4.1 mmol/L (3.5-5.1) 11/19/24 05:58 Chloride 102 mmol/L (98-107) 11/19/24 05:58 Carbon Dioxide 31 mmol/L (21-32) 11/19/24 05:58 Anion Gap 6 (3-11) 11/19/24 05:58 BUN 34 mg/dl (6-23) H 11/19/24 05:58 Creatinine 1.55 mg/dl (0.6-1.2) H 11/19/24 05:58 Est Cr Clr Drug Dosing 39.9 ml/min 11/19/24 05:58 eGFR 35.60 11/19/24 05:58 BUN/Creatinine Ratio 21.9 (10-20) H 11/19/24 05:58 Glucose 137 mg/dl (70-99(Fasting)) H 11/19/24 05:58 POC Glucose 179 mg/dl (70-99) H 11/19/24 12:21 Calcium 9.0 mg/dl (8.6-10.3) 11/19/24 05:58 Phosphorus 3.7 mg/dl (2.5-4.9) 11/19/24 05:58 Magnesium 2.0 mg/dl (1.7-2.4) 11/19/24 05:58 Total Bilirubin 0.6 mg/dl (0.2-1.0) 11/19/24 05:58 AST 50 U/L (13-39) H 11/19/24 05:58 ALT 45 U/L (7-52) 11/19/24 05:58 Alkaline Phosphatase 40 U/L (34-104) 11/19/24 05:58 Troponin I High Sens 7.8 pg/ml (0-14) 11/18/24 10:17 Total Protein 6.2 gm/dl (6.0-8.3) 11/19/24 05:58 Albumin 3.3 gm/dl (3.4-5.0) L 11/19/24 05:58 Globulin 2.9 gm/dl (2.5-4.0) 11/19/24 05:58 Albumin/Globulin Ratio 1.1 (0.9-2) 11/19/24 05:58 Lipase 13 U/L (11-82) 11/18/24 10:17 POC Stool Occult Blood Positive (Negative) A 11/18/24 10:33 SARS-CoV-2, RNA, NAAT NEGATIVE (NEGATIVE) 11/18/24 12:58 Blood Type A Positive 11/18/24 10:17 Blood Type Recheck A Positive 11/18/24 11:07 Antibody Screen NEGATIVE 11/18/24 10:17 Crossmatch See Detail 11/18/24 10:17 Impressions Abdomen/Pelvis CT 11/18/24 10:22 CT SCAN OF THE ABDOMEN AND PELVIS WITH IV CONTRAST CLINICAL HISTORY: GI bleeding. Dizziness and weakness. COMPARISON STUDY: Abdominal CT dated 09/20/2024. TECHNIQUE: Following the IV administration of 94 cc of Optiray 320, CT scan of the abdomen and pelvis is performed from the lung bases to the proximal femora. Images are reviewed in the axial, sagittal, and coronal planes. IV contrast was administered without complication. A dose lowering technique was utilized adhering to the principles of ALARA. CT DOSE: 1419.03 mGy.cm FINDINGS: Lung bases: A left atrial occlusion devices noted. The heart is enlarged and without pericardial effusion. There is coronary artery atherosclerosis. The mitral annulus is densely calcified. A tiny hiatal hernia is noted. The lung bases are clear. Liver: The contrast-enhanced liver is normal in size, contour, and attenuation. There is no intrahepatic biliary ductal dilatation. The hepatic veins and portal veins are patent. Gallbladder: Unremarkable. Spleen: Normal in size and attenuation. There are calcified splenic granulomas. Pancreas: Unremarkable. Adrenal glands: Unremarkable. Kidneys: The contrast enhanced kidneys demonstrate mild cortical atrophy and are without hydronephrosis. The kidneys enhance symmetrically. There are at least 2 nonobstructing right renal calculi which measure up to 10 mm. A 6 mm nonobstructing calculus is seen on the left. No ureteral stone is identified. There is nonspecific bilateral perinephric stranding. Abdominal vasculature: The abdominal aorta is normal in course and caliber noting mild atherosclerotic calcification. Bowel: There is mild colonic fecal retention. No bowel obstruction is seen. No intraluminal contrast is identified to suggest a site of GI bleeding. The appendix is well-visualized and normal. Peritoneum: There is no intraperitoneal free air or abdominal ascites. There is asymmetric atrophy of the right iliopsoas musculature as compared to the left. Lymphadenopathy: None. Pelvic viscera: The bladder is distended and contains a small focus of intraluminal gas. The uterus is surgically absent. No adnexal lesion is seen. Skeletal structures: The skeletal structures are osteopenic. There is mild lumbosacral spondylosis with a large posterior disc osteophyte complex at L4-L5. Sclerotic change is seen in the sacroiliac joints. No lytic or blastic lesions are seen. IMPRESSION: 1. The bladder is distended and contains a nonspecific focus of intraluminal gas. This may be related to instrumentation. Correlate with clinical findings and urinalysis. 2. There is nonspecific bilateral perinephric stranding which is similar to the 09/20/2024 examination. Again, this should be correlated with urinalysis. 3. Bilateral nephrolithiasis. 4. Cardiomegaly. 5. Additional findings as above. ACT 112: Negative or not required by law. Electronically signed by: Gaston Velasquez M.D. 11/18/2024 12:18 PM Chest X-Ray 11/18/24 10:22 SINGLE VIEW CHEST CLINICAL HISTORY: Dizziness FINDINGS: An AP, portable, upright chest radiograph is compared to study dated 09/20/2024. The examination is degraded by portable technique and patient rotation. An electronic device projects over the left chest wall. The heart is top normal for projection. The left atrial appendage occlusion device is noted. The pulmonary vasculature is noncongested. There is mild bibasilar atelectasis. The lungs and pleural spaces are otherwise clear. No pneumothorax is seen. The skeletal structures are osteopenic. The bony thorax is grossly intact. IMPRESSION: No acute cardiopulmonary abnormality is identified. ACT 112: Negative or not required by law. Electronically signed by: Gaston Velasquez M.D. 11/18/2024 11:09 AM Medications Administered Home Medications Medication Instructions Recorded Confirmed Last Taken atorvastatin 20 mg tablet 20 mg PO QAM #30 tabs 10/24/23 11/18/24 03/24/24 bupropion HCl 100 mg tablet,12 hr 100 mg PO QAM #30 ea 10/24/23 11/18/24 03/24/24 sustained-release bupropion HCl 150 mg tablet,12 hr 150 mg PO QAM #30 ea 10/24/23 11/18/24 03/24/24 sustained-release cyanocobalamin (vitamin B-12) 1,000 mcg PO QAM #30 tabs 10/24/23 11/18/24 03/24/24 1,000 mcg tablet mirabegron 50 mg tablet,extended 50 mg PO QAM #30 tabs 10/24/23 11/18/24 03/24/24 release 24 hr (Myrbetriq) albuterol sulfate 90 mcg/actuation 2 puff inhalation Q4 PRN cough/sob 03/26/24 11/18/24 Unknown aerosol inhaler amiodarone 200 mg tablet 200 mg PO QPM 03/26/24 11/18/24 03/24/24 benzonatate 100 mg capsule 100 mg PO TID PRN Cough 03/26/24 11/18/24 Unknown cholecalciferol (vitamin D3) 50 50 mcg PO QAM 03/26/24 11/18/24 03/24/24 mcg (2,000 unit) tablet (Vitamin D3) famotidine 20 mg tablet (Pepcid) 20 mg PO AMPM 03/26/24 11/18/24 03/24/24 fluoxetine 60 mg tablet 60 mg PO QPM 03/26/24 11/18/24 03/24/24 fluticasone 250 mcg-salmeterol 50 1 ea inhalation QPM PRN Coughing 03/26/24 11/18/24 03/24/24 mcg/dose blistr powdr for inhalation insulin aspart U-100 100 unit/mL 0 unit subcut WM 03/26/24 11/18/24 Unknown (3 mL) subcutaneous pen (Novolog FlexPen U-100 Insulin aspart) insulin degludec 100 18 unit subcut QPM 03/26/24 11/18/24 03/24/24 unit-liraglutide 3.6 mg/mL(3 mL) subcutaneous pen (Xultophy 100/3.6) insulin glargine 100 unit/mL 3 unit subcut PM 03/26/24 11/18/24 03/24/24 subcutaneous solution (Lantus U-100 Insulin) levothyroxine 50 mcg tablet 50 mcg PO DAILYBB 03/26/24 11/18/24 03/24/24 ondansetron HCl 4 mg tablet 4 mg PO Q6 PRN Nausea And Vomiting 03/26/24 11/18/24 03/25/24 polyethylene glycol 3350 17 gram 17 g PO DAILY PRN Constipation 03/26/24 11/18/24 Unknown oral powder packet (Miralax) docusate sodium 100 mg capsule 100 mg PO BID #60 caps 04/01/24 11/18/24 Unknown (Colace) aspirin 81 mg tablet,delayed 81 mg PO DAILY 09/20/24 11/18/24 Unknown release clopidogrel 75 mg tablet 75 mg DAILY 09/20/24 11/18/24 Unknown metolazone 10 mg tablet 2.5 mg PO DAILY PRN Weight Gain 09/20/24 11/18/24 Unknown torsemide 40 mg tablet 40 mg PO DAILY 09/20/24 11/18/24 Unknown vitamins A,C,C-tyjk-rsmfhh 4,296 1 cap PO BID 09/20/24 11/18/24 Unknown mcg-226 mg-90 mg capsule (PreserVision AREDS) L.acidop,casei,lactis,rham-B.lact,catarino 1 cap PO DAILY #7 caps 09/22/24 11/18/24 Unknown 625 mg (10 billion cell) capsule (Advanced Probiotic) nystatin 100,000 unit/gram topical 1 applic topical TID PRN Rash 11/18/24 11/18/24 Unknown powder Active Medications Generic Name Dose Route Start Last Admin Trade Name Freq PRN Reason Stop Dose Admin Amiodarone HCl 200 mg 11/18/24 21:00 11/18/24 21:52 Amiodarone 200 Mg Tab PO 12/18/24 20:59 200 mg QPM AMI Administration Aspirin 81 mg 11/18/24 18:00 11/18/24 18:18 Aspirin 81 Mg Ectab PO 12/18/24 17:59 Not Given DAILY AMI Atorvastatin Calcium 20 mg 11/19/24 09:00 11/19/24 08:21 Atorvastatin 20 Mg Tab PO 12/19/24 08:59 20 mg QAM AMI Administration Bupropion HCl 150 mg 11/19/24 09:00 11/19/24 08:19 Bupropion Sr 150 Mg Tabcr PO 12/19/24 08:59 150 mg QAM AMI Administration Bupropion HCl 100 mg 11/19/24 09:00 11/19/24 08:19 Bupropion Sr 100 Mg Tabcr PO 12/19/24 08:59 100 mg QAM AMI Administration Clopidogrel Bisulfate 75 mg 11/18/24 18:00 11/18/24 18:18 Clopidogrel Bisulfate 75 Mg Tab PO 12/18/24 17:59 Not Given DAILY AMI Cyanocobalamin 1,000 mcg 11/19/24 09:00 11/19/24 08:22 Cyanocobalamin (B-12) 500 Mcg Tablet PO 12/19/24 08:59 1,000 mcg QAM AMI Administration Fluoxetine HCl 60 mg 11/18/24 21:00 11/18/24 21:52 Fluoxetine Hcl 20 Mg Cap PO 12/18/24 20:59 60 mg QPM AMI Administration Pantoprazole Sodium 40 mg in 10 mls @ 5 mls/min 11/18/24 21:00 11/19/24 08:23 Protonix IV 12/18/24 20:59 5 mls/min BID AMI Administration Insulin Aspart 0 units 11/18/24 16:30 11/19/24 13:47 Insulin Aspart Per Unit Charge SC 12/18/24 16:29 3 units ACHS AMI Administration Lactobacillus Acidophilus 625 mg 11/19/24 09:00 11/19/24 08:22 Advanced Probiotic 625 Mg Capsule PO 12/19/24 08:59 625 mg DAILY AMI Administration Levothyroxine Sodium 50 mcg 11/19/24 06:30 11/19/24 06:48 Levothyroxine Sodium 50 Mcg Tablet PO 12/19/24 06:29 50 mcg DAILYBB AMI Administration Multivitamins/Minerals 1 tab 11/18/24 18:00 11/19/24 08:22 Cerovite Adv Formula Tab PO 12/18/24 17:59 1 tab DAILY AMI Administration Nystatin 1 appln 11/18/24 21:00 11/19/24 08:22 Nystatin Powder 15gm Btl EXT 12/18/24 20:59 1 appln TID AMI Administration Torsemide 40 mg 11/19/24 09:00 11/19/24 08:20 Torsemide 20 Mg Tab PO 12/19/24 08:59 40 mg DAILY AMI Administration Vibegron 75 mg 11/19/24 09:00 11/19/24 08:21 Vibegron 75 Mg Tab PO 12/19/24 08:59 75 mg QAM AMI Administration Vitamin D 50 mcg 11/19/24 09:00 11/19/24 08:21 Cholecalciferol 25 Mcg (1000 Units) Tab PO 12/19/24 08:59 50 mcg QAM AMI Administration PG Care Time/CCT Total # of Minutes Spent Total Time Spent with Patient: Total time spent is greater than 50% in coordination of care (as documented) at patient's floor/unit and/or counseling patient: Coding Level of Care Code 16424 SUB INP/OBS CARE 3/50MIN Diagnoses Symptomatic anemia D64.9 Presence of Watchman left atrial appendage closure device Z95.818 Diastolic congestive heart failure I50.30 Paroxysmal atrial fibrillation I48.0 Dyslipidemia E78.5 Hypertension I10
--- NOTE | 2024-11-19 17:14 | Hospitalist Progress Note ---
Date of Service November 19, 2024 Assessment & Plan (1) Anemia: (2) Dizziness: (3) GI bleed: (4) Presence of Watchman left atrial appendage closure device: (5) Diabetes mellitus, type 2: (6) Hypertension: (7) Hyperlipidemia: (8) Paroxysmal atrial fibrillation: Plan This is a 69 year old F with PMH of insulin-dependent DM Type II, dyslipidemia, hypothyroidism, diastolic heart failure, paroxysmal AFib, HTN, CKD Stage III, depression and other medical problems listed below who presents with dizziness and anemia concerning for GI bleed. Symptomatic anemia Concern for GI bleed Outpatient hgb from from 7.9 to 6.8 in past few days on outpatient labwork FOBT + in ED, endorsing exertional N/V and dark stools for past 2 weeks Remains on DAPT from Watchman device implantation in August - due for JUD - consulted cardiology for recs regarding continuation of DAPT, possibility of in- patient JUD Given exertional symptoms, consented in ED and now transfusing 1u prbc now with missed AM torsemide dose Monitor H&H, continue IV Protonix BID, Has been feeling much better following blood transfusion No evidence of acute blood loss except FOBT has been positive Her anticoagulation is on hold for EGD on 11/23/2024 Iron deficiency anemia Complicated by blood loss Iron studies as an outpatient showed low iron of 15 TIBC 375, and transferrin saturation very low at 4% We did not give any iron infusion as she got blood transfusion already Will repeat iron studies after a few days before giving iron transfusion Has constipation will give MiraLAX-not restarting iron as of now HFpEF Appears compensated, admitting CXR without acute abnormalities Gave missed AM torsemide dose with transfusion, monitor volume status closely Cards consulted as above Appreciate cardiology input and recommendations Paroxysmal Afib s/p Watchman procedure Continue home amiodarone HS for rate control On DAPT as above for Watchman device (history of bleed with Eliquis in past) - appreciate cards recs Telemetry, Mag/Phos with AM labs Will hold aspirin Plavix for possible EGD on 23 November DM II A1c 6.1 in September 2024 SSI while in-patient Glycemic consult placed BSG AC HS CKD III Cr 1.66 today. Baseline Cr ~ mid-high 1s. Continue to monitor CATHERINE CPAP HS Hyperlipidemia Continue home statin Ambulatory dysfunction Patient unsteady given above - fall precautions, PT/OT evals DVT Ppx: SCDs for now Code status: FULL PCP: Flo Dispo: Admitted to PCU Admission and Anticipated Discharge Date Admission Date: November 18, 2024 Subjective 11/19/2024 The patient was seen and examined in telemetry unit She is status post 1 unit of blood transfusion and has been feeling a lot better Denies any chest pain, palpitation or shortness of breath Review of Systems Review of Systems: All systems reviewed and are unremarkable as noted below Physical Exam Physical Exam: Lying in bed without any acute distress Constitutional: well developed, well nourished, + ill appearing and + obese Eyes: PERRL, conjunctivae normal, anicteric sclerae ENMT: external ear and nose normal, oropharynx normal Neck: trachea midline, no thyromegaly Respiratory: no respiratory distress Auscultation: lungs clear to auscultation bilaterally Cardiovascular: Rate/Rhythm: regular rate and regular rhythm; not tachycardic Heart Sounds: normal S1, normal S2 and + murmur Extremities: + edema Gastrointestinal (Abdomen): Inspection/Auscultation: normal bowel sounds; abdomen not distended Percussion/Palpation: abdomen soft; abdomen nontender Musculoskeletal: No acute arthritis involving any of the joint Neurologic: normal touch/pain/proprioception and moves all extremities; no focal motor deficits Lymphatic: no cervical or axillary lymphadenopathy Results & Data Results & Data Vital Signs (Past 12 Hours) Vital Signs Temp Pulse Resp BP Pulse Ox O2 Del Method 11/19/24 12:33 36.3 C L 67 17 147/70 H 97 Room Air 11/19/24 07:40 36.5 C 68 17 156/72 H 98 Room Air Laboratory Results Short CBC 11/18/24 11/19/24 11/19/24 Range/Units 19:06 05:58 12:12 WBC 8.23 (4.8-10.8) K/ul Hgb 8.8 L 8.2 L 8.5 L (12.0-16.0) g/dl Hct 27.9 L 26.0 L 26.3 L (37.0-47.0) % Plt Count 257 (130-400) K/uL BMP 11/19/24 05:58 Sodium 139 Potassium 4.1 Chloride 102 Carbon Dioxide 31 BUN 34 H Creatinine 1.55 H Glucose 137 H Calcium 9.0 Liver Function 11/19/24 Range/Units 05:58 Total Bilirubin 0.6 (0.2-1.0) mg/dl AST 50 H (13-39) U/L ALT 45 (7-52) U/L Alkaline Phosphatase 40 (34-104) U/L Albumin 3.3 L (3.4-5.0) gm/dl Medications Administered Current Inpatient Medications Acetaminophen (Acetaminophen 325 Mg Tab) 650 mg PO Q4H PRN PRN Reason: Pain or Fever Stop: 12/18/24 16:22 Albuterol (Albuterol Hfa 8 Gm Inhaler) 2 puffs INH Q4 PRN PRN Reason: cough/sob Stop: 12/18/24 16:59 Amiodarone HCl (Amiodarone 200 Mg Tab) 200 mg PO QPM [facility] Stop: 12/18/24 20:59 Last Admin: 11/18/24 21:52 Dose: 200 mg Aspirin (Aspirin 81 Mg Ectab) 81 mg PO DAILY [facility] Stop: 12/18/24 17:59 Last Admin: 11/18/24 18:18 Dose: Not Given Atorvastatin Calcium (Atorvastatin 20 Mg Tab) 20 mg PO QAM [facility] Stop: 12/19/24 08:59 Last Admin: 11/19/24 08:21 Dose: 20 mg Benzonatate (Benzonatate 100 Mg Capsule) 100 mg PO TID PRN PRN Reason: Cough Stop: 12/18/24 16:59 Bupropion HCl (Bupropion Sr 150 Mg Tabcr) [facility] [place] Stop: 12/19/24 08:59 Last Admin: 11/19/24 08:19 Dose: 150 mg Bupropion HCl (Bupropion Sr 100 Mg Tabcr) 100 mg PO QAM [facility] Stop: 12/19/24 08:59 Last Admin: 11/19/24 08:19 Dose: 100 mg Clopidogrel Bisulfate (Clopidogrel Bisulfate 75 Mg Tab) 75 mg PO DAILY [facility] Stop: 12/18/24 17:59 Last Admin: 11/18/24 18:18 Dose: Not Given Cyanocobalamin (Cyanocobalamin (B-12) 500 Mcg Tablet) 1,000 mcg PO QAM [facility] [place] Stop: 12/19/24 08:59 Last Admin: 11/19/24 08:22 Dose: 1,000 mcg Dextrose (Dextrose 50% 50 Ml Syringe) 25 - 50 ml IV UD PRN; Protocol PRN Reason: Hypoglycemia Protocol Stop: 12/18/24 15:59 Fluoxetine HCl (Fluoxetine Hcl 20 Mg Cap) 60 mg PO QPM [facility] Stop: 12/18/24 20:59 Last Admin: 11/18/24 21:52 Dose: 60 mg Fluticasone/Vilanterol (Fluticasone/Vilanterol 100/25mcg 14 Puffs/Inhaler) 1 puffs INH QPM PRN PRN Reason: Coughing Stop: 12/18/24 16:59 Glucagon (Glucagon For Inj 1 Mg Vial) 1 mg SQ UD PRN; Protocol PRN Reason: Hypoglycemia Protocol Stop: 12/18/24 15:59 Glucose (Glucose 40% Gel 15 Gm Tube) 15 - 30 gm PO UD PRN; Protocol PRN Reason: Hypoglycemia Protocol Stop: 12/18/24 15:59 Glucose (Glucose 10 Tab/Tube) 4 - 8 tab PO UD PRN; Protocol PRN Reason: Hypoglycemia Protocol Stop: 12/18/24 15:59 Pantoprazole Sodium (Protonix) 40 mg in 10 mls @ 5 mls/min IV BID [facility] Stop: 12/18/24 20:59 Last Admin: 11/19/24 08:23 Dose: 5 mls/min Insulin Aspart (Insulin Aspart Per Unit Charge) 0 units SC ACHS [facility] Stop: 12/18/24 16:29 Last Admin: 11/19/24 13:47 Dose: 3 units Insulin Glargine (Lantus Per Unit Charge) 8 units SC HS [facility] Stop: 12/18/24 20:59 Lactobacillus Acidophilus (Advanced Probiotic 625 Mg Capsule) 625 mg PO DAILY [facility] Stop: 12/19/24 08:59 Last Admin: 11/19/24 08:22 Dose: 625 mg Levothyroxine Sodium (Levothyroxine Sodium 50 Mcg Tablet) 50 mcg PO DAILYBB [facility] Stop: 12/19/24 06:29 Last Admin: 11/19/24 06:48 Dose: 50 mcg Melatonin (Melatonin 3 Mg Tab) 3 mg PO HS PRN PRN Reason: Sleep Stop: 12/18/24 16:22 Miscellaneous (Carbohydrates For Hypoglycemia ) 15 - 30 gm PO UD PRN PRN Reason: Hypoglycemia Treatment Stop: 12/18/24 15:59 Miscellaneous Information (Pharmacy Glycemic Mgmt Consult) 1 each N/A UD PRN; Protocol PRN Reason: Consult Stop: 12/18/24 14:29 Multivitamins/Minerals (Cerovite Adv Formula Tab) 1 tab PO DAILY [facility] Stop: 12/18/24 17:59 Last Admin: 11/19/24 08:22 Dose: 1 tab Nystatin (Nystatin Powder 15gm Btl) 1 appln EXT TID [facility] Stop: 12/18/24 20:59 Last Admin: 11/19/24 14:29 Dose: 1 appln Ondansetron HCl (Ondansetron Inj 2 Mg/Ml 2 Ml Vial) 4 mg IV Q6H PRN PRN Reason: Nausea Stop: 12/18/24 16:22 Torsemide (Torsemide 20 Mg Tab) 40 mg PO DAILY [facility] Stop: 12/19/24 08:59 Last Admin: 11/19/24 08:20 Dose: 40 mg Vibegron (Vibegron 75 Mg Tab) 75 mg PO QAM [facility] Stop: 12/19/24 08:59 Last Admin: 11/19/24 08:21 Dose: 75 mg Vitamin D (Cholecalciferol 25 Mcg (1000 Units) Tab) 50 mcg PO QAM [facility] Stop: 12/19/24 08:59 Last Admin: 11/19/24 08:21 Dose: 50 mcg (1) Anemia Anemia type: unspecified type Qualified Code(s): D64.9 - Anemia, unspecified (3) GI bleed GI bleed type/associated pathology: unspecified gastrointestinal hemorrhage type Qualified Code(s): K92.2 - Gastrointestinal hemorrhage, unspecified
[2024-11-19] MEDS: POLYETHYLENE (MIRALAX) 17 GM PACK PO SCH (18:28)
[2024-11-19] MEDS: LANTUS PER UNIT CHARGE SC SCH (21:29)
[2024-11-19] MEDS: ONDANSETRON INJ 2 MG/ML 2 ML VIAL IV PRN (21:38)
--- NOTE | 2024-11-20 05:28 | Electrocardiogram Report ---
Test Reason : Blood Pressure : */* mmHG Vent. Rate : 72 BPM Atrial Rate : * BPM P-R Int : * ms QRS Dur : 94 ms QT Int : 438 ms P-R-T Axes : * 22 35 degrees QTcB Int : 479 ms Normal sinus rhythm Low voltage QRS Septal infarct , age undetermined Nonspecific ST and T wave abnormality Abnormal ECG When compared with ECG of 20-Sep-2024 12:00, Septal infarct is now Present Confirmed by Tomer Peacock ([id number]) on 11/20/2024 5:28:04 AM Referred By: Confirmed By: Tomer Peacock
[2024-11-20] MEDS: ACETAMINOPHEN 325 MG TAB PO PRN (07:50)
[2024-11-20 08:18] LABS: Hematocrit (blood only) 26.8 % (37.0-47.0); Hemoglobin 8.4 g/dl (12.0-16.0); Immature Granulocytes # (auto) 0.05 K/uL (0.01-0.20); Immature Granulocytes % (auto) 0.6 %; Mean Corpuscular Hemoglobin 25.9 pg (25.0-34.0); Mean Corpuscular Volume 82.7 fL (80.0-100.0); Platelet Count 274 K/uL (130-400); RDW Standard Deviation 45.1 fL (36.4-46.3); Red Blood Count 3.24 M/uL (4.20-5.40); White Blood Count 8.44 K/ul (4.8-10.8)
[2024-11-20 08:36] LABS: Anion Gap 8.0 (3-11); Blood Urea Nitrogen 31.0 mg/dl (6-23); Calcium 9.0 mg/dl (8.6-10.3); Carbon Dioxide 31.0 mmol/L (21-32); Chloride 99.0 mmol/L (98-107); Creatinine Clr Calc Pharmacy 42.6 ml/min; Glucose 129.0 mg/dl (70-99(Fasting)); Magnesium 2.0 mg/dl (1.7-2.4); Potassium 4.0 mmol/L (3.5-5.1); Sodium 138.0 mmol/L (136-145)
--- NOTE | 2024-11-20 15:27 | Hospitalist Progress Note ---
Date of Service November 20, 2024 Assessment & Plan (1) Anemia: (2) Dizziness: (3) GI bleed: (4) Presence of Watchman left atrial appendage closure device: (5) Diabetes mellitus, type 2: (6) Hypertension: (7) Hyperlipidemia: (8) Paroxysmal atrial fibrillation: Plan This is a 69 year old F with PMH of insulin-dependent DM Type II, dyslipidemia, hypothyroidism, diastolic heart failure, paroxysmal AFib, HTN, CKD Stage III, depression and other medical problems listed below who presents with dizziness and anemia concerning for GI bleed. Symptomatic anemia Concern for GI bleed Outpatient hgb from from 7.9 to 6.8 in past few days on outpatient labwork FOBT + in ED, endorsing exertional N/V and dark stools for past 2 weeks Remains on DAPT from Watchman device implantation in August - due for JUD - consulted cardiology for recs regarding continuation of DAPT, possibility of in- patient JUD Given exertional symptoms, consented in ED and now transfusing 1u prbc now with missed AM torsemide dose Monitor H&H, continue IV Protonix BID, Has been feeling much better following blood transfusion No evidence of acute blood loss except FOBT has been positive Her anticoagulation is on hold for EGD on 11/23/2024 Remains stable with hemoglobin of 8.5 and BUN and creatinine are slightly improved No more obvious GI bleed and she is waiting for endoscopy on Friday Iron deficiency anemia Complicated by blood loss Iron studies as an outpatient showed low iron of 15 TIBC 375, and transferrin saturation very low at 4% We did not give any iron infusion as she got blood transfusion already Will repeat iron studies after a few days before giving iron transfusion Has constipation will give MiraLAX-not restarting iron as of now HFpEF Appears compensated, admitting CXR without acute abnormalities Gave missed AM torsemide dose with transfusion, monitor volume status closely Cards consulted as above Appreciate cardiology input and recommendations No signs and or symptoms of fluid overload Paroxysmal Afib s/p Watchman procedure Continue home amiodarone HS for rate control On DAPT as above for Watchman device (history of bleed with Eliquis in past) - appreciate cards recs Telemetry, Mag/Phos with AM labs Will hold aspirin Plavix for possible EGD on 23 November DM II A1c 6.1 in September 2024 SSI while in-patient Glycemic consult placed BSG AC HS CKD III Cr 1.66 today. Baseline Cr ~ mid-high 1s. Continue to monitor CATHERINE CPAP HS Hyperlipidemia Continue home statin Ambulatory dysfunction Patient unsteady given above - fall precautions, PT/OT evals DVT Ppx: SCDs for now Code status: FULL PCP: Fol Dispo: Admitted to PCU Admission and Anticipated Discharge Date Admission Date: November 18, 2024 Subjective 11/19/2024 The patient was seen and examined in telemetry unit She is status post 1 unit of blood transfusion and has been feeling a lot better Denies any chest pain, palpitation or shortness of breath 11/20/2024 The patient was seen and examined in telemetry unit She has been stable and denies any symptoms Denies any more bleeding No chest pain, shortness of breath or palpitation Review of Systems Review of Systems: All systems reviewed and are unremarkable as noted below Physical Exam Physical Exam: Lying in bed without any acute distress Constitutional: well developed, well nourished, + ill appearing and + obese Eyes: PERRL, conjunctivae normal, anicteric sclerae ENMT: external ear and nose normal, oropharynx normal Neck: trachea midline, no thyromegaly Respiratory: no respiratory distress Auscultation: lungs clear to auscultation bilaterally Cardiovascular: Rate/Rhythm: regular rate and regular rhythm; not tachycardic Heart Sounds: normal S1, normal S2 and + murmur Extremities: + edema Gastrointestinal (Abdomen): Inspection/Auscultation: normal bowel sounds; abdomen not distended Percussion/Palpation: abdomen soft; abdomen nontender Neurologic: normal touch/pain/proprioception and moves all extremities; no focal motor deficits Lymphatic: no cervical or axillary lymphadenopathy Results & Data Results & Data Vital Signs (Past 12 Hours) Vital Signs Temp Pulse Resp BP Pulse Ox O2 Del Method 11/20/24 15:20 36.5 C 62 18 105/46 L 95 Room Air 11/20/24 12:12 36.6 C 62 17 100/65 97 Room Air 11/20/24 08:26 36.3 C L 65 18 158/70 H 96 Room Air Laboratory Results Short CBC 11/20/24 Range/Units 07:53 WBC 8.44 (4.8-10.8) K/ul Hgb 8.4 L (12.0-16.0) g/dl Hct 26.8 L (37.0-47.0) % Plt Count 274 (130-400) K/uL BMP 11/20/24 07:53 Sodium 138 Potassium 4.0 Chloride 99 Carbon Dioxide 31 BUN 31 H Creatinine 1.45 H Glucose 129 H Calcium 9.0 Medications Administered Current Inpatient Medications Acetaminophen (Acetaminophen 325 Mg Tab) 650 mg PO Q4H PRN PRN Reason: Pain or Fever Stop: 12/18/24 16:22 Last Admin: 11/20/24 07:50 Dose: 650 mg Albuterol (Albuterol Hfa 8 Gm Inhaler) 2 puffs INH Q4 PRN PRN Reason: cough/sob Stop: 12/18/24 16:59 Amiodarone HCl (Amiodarone 200 Mg Tab) 200 mg PO QPM [facility] Stop: 12/18/24 20:59 Last Admin: 11/19/24 21:32 Dose: 200 mg Aspirin (Aspirin 81 Mg Ectab) 81 mg PO DAILY [facility] Stop: 12/18/24 17:59 Last Admin: 11/18/24 18:18 Dose: Not Given Atorvastatin Calcium (Atorvastatin 20 Mg Tab) 20 mg PO QAM [facility] Stop: 12/19/24 08:59 Last Admin: 11/20/24 07:53 Dose: 20 mg Benzonatate (Benzonatate 100 Mg Capsule) 100 mg PO TID PRN PRN Reason: Cough Stop: 12/18/24 16:59 Bupropion HCl (Bupropion Sr 150 Mg Tabcr) 150 mg PO QAM [facility] Stop: 12/19/24 08:59 Last Admin: 11/20/24 07:53 Dose: 150 mg Bupropion HCl (Bupropion Sr 100 Mg Tabcr) 100 mg PO QAM [facility] Stop: 12/19/24 08:59 Last Admin: 11/20/24 07:53 Dose: 100 mg Clopidogrel Bisulfate (Clopidogrel Bisulfate 75 Mg Tab) 75 mg PO DAILY [facility] Stop: 12/18/24 17:59 Last Admin: 11/18/24 18:18 Dose: Not Given Cyanocobalamin (Cyanocobalamin (B-12) 500 Mcg Tablet) 1,000 mcg PO QAM [facility] Stop: 12/19/24 08:59 Last Admin: 11/20/24 07:52 Dose: 1,000 mcg Dextrose (Dextrose 50% 50 Ml Syringe) 25 - 50 ml IV UD PRN; Protocol PRN Reason: Hypoglycemia Protocol Stop: 12/18/24 15:59 Fluoxetine HCl (Fluoxetine Hcl 20 Mg Cap) 60 mg PO QPM [facility] Stop: 12/18/24 20:59 Last Admin: 11/19/24 21:32 Dose: 60 mg Fluticasone/Vilanterol (Fluticasone/Vilanterol 100/25mcg 14 Puffs/Inhaler) 1 puffs INH QPM PRN PRN Reason: Coughing Stop: 12/18/24 16:59 Glucagon (Glucagon For Inj 1 Mg Vial) 1 mg SQ UD PRN; Protocol PRN Reason: Hypoglycemia Protocol Stop: 12/18/24 15:59 Glucose (Glucose 40% Gel 15 Gm Tube) 15 - 30 gm PO UD PRN; Protocol PRN Reason: Hypoglycemia Protocol Stop: 12/18/24 15:59 Glucose (Glucose 10 Tab/Tube) 4 - 8 tab PO UD PRN; Protocol PRN Reason: Hypoglycemia Protocol Stop: 12/18/24 15:59 Pantoprazole Sodium (Protonix) 40 mg in 10 mls @ 5 mls/min IV BID [facility] Stop: 12/18/24 20:59 Last Admin: 11/20/24 07:54 Dose: 5 mls/min Insulin Aspart (Insulin Aspart Per Unit Charge) 0 units SC ACHS [facility] Stop: 12/18/24 16:29 Last Admin: 11/20/24 13:26 Dose: 5 units Insulin Glargine (Lantus Per Unit Charge) 8 units SC HS [facility] Stop: 12/18/24 20:59 Last Admin: 11/19/24 21:29 Dose: 8 units Lactobacillus Acidophilus (Advanced Probiotic 625 Mg Capsule) 625 mg PO DAILY [facility] Stop: 12/19/24 08:59 Last Admin: 11/20/24 07:53 Dose: 625 mg Levothyroxine Sodium (Levothyroxine Sodium 50 Mcg Tablet) 50 mcg PO DAILYBB [facility] Stop: 12/19/24 06:29 Last Admin: 11/20/24 06:28 Dose: 50 mcg Melatonin (Melatonin 3 Mg Tab) 3 mg PO HS PRN PRN Reason: Sleep Stop: 12/18/24 16:22 Miscellaneous (Carbohydrates For Hypoglycemia ) 15 - 30 gm PO UD PRN PRN Reason: Hypoglycemia Treatment Stop: 12/18/24 15:59 Miscellaneous Information (Pharmacy Glycemic Mgmt Consult) 1 each N/A UD PRN; Protocol PRN Reason: Consult Stop: 12/18/24 14:29 Multivitamins/Minerals (Cerovite Adv Formula Tab) 1 tab PO DAILY [facility] Stop: 12/18/24 17:59 Last Admin: 11/20/24 07:52 Dose: 1 tab Nystatin (Nystatin Powder 15gm Btl) 1 appln EXT TID [facility] Stop: 12/18/24 20:59 Last Admin: 11/20/24 14:35 Dose: Not Given Ondansetron HCl (Ondansetron Inj 2 Mg/Ml 2 Ml Vial) 4 mg IV Q6H PRN PRN Reason: Nausea Stop: 12/18/24 16:22 Last Admin: 11/19/24 21:38 Dose: 4 mg Polyethylene Glycol (Polyethylene (Miralax) 17 Gm Pack) 17 gm PO DAILY [facility] Stop: 12/19/24 17:14 Last Admin: 11/20/24 07:51 Dose: 17 gm Torsemide (Torsemide 20 Mg Tab) 40 mg PO DAILY [facility] Stop: 12/19/24 08:59 Last Admin: 11/20/24 07:52 Dose: 40 mg Vibegron (Vibegron 75 Mg Tab) 75 mg PO QAM [facility] Stop: 12/19/24 08:59 Last Admin: 11/20/24 07:53 Dose: 75 mg Vitamin D (Cholecalciferol 25 Mcg (1000 Units) Tab) 50 mcg PO QAM [facility] Stop: 12/19/24 08:59 Last Admin: 11/20/24 07:52 Dose: 50 mcg (1) Anemia Anemia type: unspecified type Qualified Code(s): D64.9 - Anemia, unspecified (3) GI bleed GI bleed type/associated pathology: unspecified gastrointestinal hemorrhage type Qualified Code(s): K92.2 - Gastrointestinal hemorrhage, unspecified
--- NOTE | 2024-11-20 17:54 | Cardiology Progress Note ---
Date of Service November 20, 2024 Assessment & Plan (1) Symptomatic anemia: (2) Presence of Watchman left atrial appendage closure device: (3) Diastolic congestive heart failure: (4) Paroxysmal atrial fibrillation: (5) Dyslipidemia: (6) Hypertension: Plan 69 year old female patient admitted to [facility] on 11/18/2024 with symptomatic anemia, hemoglobin 7.3 g/dL and + FOBT. History not overtly suggestive of active GI bleeding. Patient prescribed dual antiplatelet therapy with aspirin 81 mg/day and clopidogrel 75 mg/day, post September 16, 2024 left atrial appendage occlusion (# 24 mm Watchman) at [facility]. GI bleed - stable H/H; no BM since admission Symptomatic anemia - better s/p 1 U PRBC Constipation - defer to hospitalist, GI PAF S/P Watchman DM HLD HTN CKD for EGD as per GI OK to hold ASA, Plavix for EGD - restart if and when OK with GI f/u H/H PRBC as indicated correct and f/u electrolytes f/u renal function adjust anti-HTN meds keeping systolic BP between 100-140 mmHg keep patient euvolemic Transesophageal echocardiography (JUD) at [facility] as scheduled on 12/10/2024, to c onfirm the absence of device related thrombus and significant peridevice leak. Admission and Anticipated Discharge Date Admission Date: November 18, 2024 Subjective Patient on exam is lying in bed in NAD; no c/o cp, sob, palpitations, dizziness, LOC; still no BM although has flatus; awaiting EGD Review of Systems Review of Systems: Complete Review of Systems is as stated above, negative, or noncontributory. Physical Exam Physical Exam: General: A&Ox3. NAD. Elevated BMI. Skin: Pale HENT: Normocephalic. Atraumatic. Mouth: Poor dentition. Eyes: PER. Conjunctiva pink, sclera pale Neck: No overt JVD. Heart: RRR. Grade II/ systolic ejection murmur. No diastolic murmur. Lungs: Diminished. Decreased. No wheeze. Abdomen: +BS. Soft. Nontender. No masses or organomegaly. Extremities: Mild right greater than left khoury erythema without overt cellulitis. Mild edema. No cyanosis. Limited neurological examination is without focal deficits. Results & Data Vital Signs (Past 12 Hours) Vital Signs Temp Pulse Resp BP Pulse Ox Pulse Ox O2 Del Method 11/20/24 16:00 95 11/20/24 15:20 36.5 C 62 18 105/46 L 95 Room Air 11/20/24 12:12 36.6 C 62 17 100/65 97 Room Air 11/20/24 08:26 36.3 C L 65 18 158/70 H 96 Room Air O2 Del Method 11/20/24 16:00 Room Air 11/20/24 15:20 11/20/24 12:12 11/20/24 08:26 Laboratory Results CBC 11/20/24 Range/Units 07:53 WBC 8.44 (4.8-10.8) K/ul RBC 3.24 L (4.20-5.40) M/uL Hgb 8.4 L (12.0-16.0) g/dl Hct 26.8 L (37.0-47.0) % Plt Count 274 (130-400) K/uL Neut # (Auto) 6.16 (1.40-6.50) K/uL Lymph # (Auto) 1.18 L (1.20-3.40) K/uL [place] # (Auto) 0.89 H (0.11-0.59) K/uL Eos # (Auto) 0.12 (0.00-0.50) K/uL Baso # (Auto) 0.04 (0.00-0.20) K/uL Comprehensive Metabolic Panel 11/20/24 Range/Units 07:53 Sodium 138 (136-145) mmol/L Potassium 4.0 (3.5-5.1) mmol/L Chloride 99 (98-107) mmol/L Carbon Dioxide 31 (21-32) mmol/L BUN 31 H (6-23) mg/dl Creatinine 1.45 H (0.6-1.2) mg/dl Glucose 129 H (70-99(Fasting)) mg/dl Calcium 9.0 (8.6-10.3) mg/dl Intake and Output 11/20/24 11/20/24 11/20/24 06:59 14:59 22:59 Intake Total 1010 / 1010 Output Total 500 / 1500 225 / 225 Balance -500 / -1500 785 / 785 Intake: Oral 1010 / 1010 Output: Urine Amount (Catheter) 500 / 500 225 / 225 External 500 / 500 225 / 225 Other: Other Intake Source tea # Unmeasured Voids 1 Weight 114.4 kg Weight Measurement Method Built in [facility] Diagnostic Findings Laboratory Results WBC 8.44 K/ul (4.8-10.8) 11/20/24 07:53 RBC 3.24 M/uL (4.20-5.40) L 11/20/24 07:53 Hgb 8.4 g/dl (12.0-16.0) L 11/20/24 07:53 Hct 26.8 % (37.0-47.0) L 11/20/24 07:53 MCV 82.7 fL (80.0-100.0) 11/20/24 07:53 MCH 25.9 pg (25.0-34.0) 11/20/24 07:53 MCHC 31.3 g/dL (32.0-36.0) L 11/20/24 07:53 RDW Std Deviation 45.1 fL (36.4-46.3) 11/20/24 07:53 RDW Coeff of Buck 14.8 % (11.5-14.5) H 11/20/24 07:53 Plt Count 274 K/uL (130-400) 11/20/24 07:53 MPV 10.4 fL (9.4-12.4) 11/20/24 07:53 Immature Gran % (Auto) 0.6 % 11/20/24 07:53 Neut % (Auto) 73.0 % 11/20/24 07:53 Lymph % (Auto) 14.0 % 11/20/24 07:53 [place] % (Auto) 10.5 % 11/20/24 07:53 Eos % (Auto) 1.4 % 11/20/24 07:53 Baso % (Auto) 0.5 % 11/20/24 07:53 Neut # (Auto) 6.16 K/uL (1.40-6.50) 11/20/24 07:53 Lymph # (Auto) 1.18 K/uL (1.20-3.40) L 11/20/24 07:53 [place] # (Auto) 0.89 K/uL (0.11-0.59) H 11/20/24 07:53 Eos # (Auto) 0.12 K/uL (0.00-0.50) 11/20/24 07:53 Baso # (Auto) 0.04 K/uL (0.00-0.20) 11/20/24 07:53 Immature Gran # (Auto) 0.05 K/uL (0.01-0.20) 11/20/24 07:53 Polychromasia 1+ 11/18/24 10:17 PT 10.6 Seconds (9.0-12.0) 11/18/24 10:17 INR 1.0 (0.9-1.1) 11/18/24 10:17 APTT 21 Seconds (21-31) 11/18/24 10:17 PTT Ratio 0.8 11/18/24 10:17 Sodium 138 mmol/L (136-145) 11/20/24 07:53 Potassium 4.0 mmol/L (3.5-5.1) 11/20/24 07:53 Chloride 99 mmol/L (98-107) 11/20/24 07:53 Carbon Dioxide 31 mmol/L (21-32) 11/20/24 07:53 Anion Gap 8 (3-11) 11/20/24 07:53 BUN 31 mg/dl (6-23) H 11/20/24 07:53 Creatinine 1.45 mg/dl (0.6-1.2) H 11/20/24 07:53 Est Cr Clr Drug Dosing 42.6 ml/min 11/20/24 07:53 eGFR 38.56 11/20/24 07:53 BUN/Creatinine Ratio 21.4 (10-20) H 11/20/24 07:53 Glucose 129 mg/dl (70-99(Fasting)) H 11/20/24 07:53 POC Glucose 147 mg/dl (70-99) H 11/20/24 16:44 Calcium 9.0 mg/dl (8.6-10.3) 11/20/24 07:53 Phosphorus 3.7 mg/dl (2.5-4.9) 11/19/24 05:58 Magnesium 2.0 mg/dl (1.7-2.4) 11/20/24 07:53 Total Bilirubin 0.6 mg/dl (0.2-1.0) 11/19/24 05:58 AST 50 U/L (13-39) H 11/19/24 05:58 ALT 45 U/L (7-52) 11/19/24 05:58 Alkaline Phosphatase 40 U/L (34-104) 11/19/24 05:58 Troponin I High Sens 7.8 pg/ml (0-14) 11/18/24 10:17 Total Protein 6.2 gm/dl (6.0-8.3) 11/19/24 05:58 Albumin 3.3 gm/dl (3.4-5.0) L 11/19/24 05:58 Globulin 2.9 gm/dl (2.5-4.0) 11/19/24 05:58 Albumin/Globulin Ratio 1.1 (0.9-2) 11/19/24 05:58 Lipase 13 U/L (11-82) 11/18/24 10:17 POC Stool Occult Blood Positive (Negative) A 11/18/24 10:33 SARS-CoV-2, RNA, NAAT NEGATIVE (NEGATIVE) 11/18/24 12:58 Blood Type A Positive 11/18/24 10:17 Blood Type Recheck A Positive 11/18/24 11:07 Antibody Screen NEGATIVE 11/18/24 10:17 Crossmatch See Detail 11/18/24 10:17 Impressions Abdomen/Pelvis CT 11/18/24 10:22 CT SCAN OF THE ABDOMEN AND PELVIS WITH IV CONTRAST CLINICAL HISTORY: GI bleeding. Dizziness and weakness. COMPARISON STUDY: Abdominal CT dated 09/20/2024. TECHNIQUE: Following the IV administration of 94 cc of Optiray 320, CT scan of the abdomen and pelvis is performed from the lung bases to the proximal femora. Images are reviewed in the axial, sagittal, and coronal planes. IV contrast was administered without complication. A dose lowering technique was utilized adhering to the principles of ALARA. CT DOSE: 1419.03 mGy.cm FINDINGS: Lung bases: A left atrial occlusion devices noted. The heart is enlarged and without pericardial effusion. There is coronary artery atherosclerosis. The mitral annulus is densely calcified. A tiny hiatal hernia is noted. The lung bases are clear. Liver: The contrast-enhanced liver is normal in size, contour, and attenuation. There is no intrahepatic biliary ductal dilatation. The hepatic veins and portal veins are patent. Gallbladder: Unremarkable. Spleen: Normal in size and attenuation. There are calcified splenic granulomas. Pancreas: Unremarkable. Adrenal glands: Unremarkable. Kidneys: The contrast enhanced kidneys demonstrate mild cortical atrophy and are without hydronephrosis. The kidneys enhance symmetrically. There are at least 2 nonobstructing right renal calculi which measure up to 10 mm. A 6 mm nonobstructing calculus is seen on the left. No ureteral stone is identified. There is nonspecific bilateral perinephric stranding. Abdominal vasculature: The abdominal aorta is normal in course and caliber noting mild atherosclerotic calcification. Bowel: There is mild colonic fecal retention. No bowel obstruction is seen. No intraluminal contrast is identified to suggest a site of GI bleeding. The appendix is well-visualized and normal. Peritoneum: There is no intraperitoneal free air or abdominal ascites. There is asymmetric atrophy of the right iliopsoas musculature as compared to the left. Lymphadenopathy: None. Pelvic viscera: The bladder is distended and contains a small focus of intraluminal gas. The uterus is surgically absent. No adnexal lesion is seen. Skeletal structures: The skeletal structures are osteopenic. There is mild lumbosacral spondylosis with a large posterior disc osteophyte complex at L4-L5. Sclerotic change is seen in the sacroiliac joints. No lytic or blastic lesions are seen. IMPRESSION: 1. The bladder is distended and contains a nonspecific focus of intraluminal g as. This may be related to instrumentation. Correlate with clinical findings and urinalysis. 2. There is nonspecific bilateral perinephric stranding which is similar to the 09/20/2024 examination. Again, this should be correlated with urinalysis. 3. Bilateral nephrolithiasis. 4. Cardiomegaly. 5. Additional findings as above. ACT 112: Negative or not required by law. Electronically signed by: Gaston Velasquez M.D. 11/18/2024 12:18 PM Chest X-Ray 11/18/24 10:22 SINGLE VIEW CHEST CLINICAL HISTORY: Dizziness FINDINGS: An AP, portable, upright chest radiograph is compared to study dated 09/20/2024. The examination is degraded by portable technique and patient rotation. An electronic device projects over the left chest wall. The heart is top normal for projection. The left atrial appendage occlusion device is noted. The pulmonary vasculature is noncongested. There is mild bibasilar atelectasis. The lungs and pleural spaces are otherwise clear. No pneumothorax is seen. The skeletal structures are osteopenic. The bony thorax is grossly intact. IMPRESSION: No acute cardiopulmonary abnormality is identified. ACT 112: Negative or not required by law. Electronically signed by: Gaston Velasquez M.D. 11/18/2024 11:09 AM Medications Administered Home Medications Medication Instructions Recorded Confirmed Last Taken atorvastatin 20 mg tablet 20 mg PO QAM #30 tabs 10/24/23 11/18/24 03/24/24 bupropion HCl 100 mg tablet,12 hr 100 mg PO QAM #30 ea 10/24/23 11/18/24 03/24/24 sustained-release bupropion HCl 150 mg tablet,12 hr 150 mg PO QAM #30 ea 10/24/23 11/18/24 03/24/24 sustained-release cyanocobalamin (vitamin B-12) 1,000 mcg PO QAM #30 tabs 10/24/23 11/18/24 03/24/24 1,000 mcg tablet mirabegron 50 mg tablet,extended 50 mg PO QAM #30 tabs 10/24/23 11/18/24 03/24/24 release 24 hr (Myrbetriq) albuterol sulfate 90 mcg/actuation 2 puff inhalation Q4 PRN cough/sob 03/26/24 11/18/24 Unknown aerosol inhaler amiodarone 200 mg tablet 200 mg PO QPM 03/26/24 11/18/24 03/24/24 benzonatate 100 mg capsule 100 mg PO TID PRN Cough 03/26/24 11/18/24 Unknown cholecalciferol (vitamin D3) 50 50 mcg PO QAM 03/26/24 11/18/24 03/24/24 mcg (2,000 unit) tablet (Vitamin D3) famotidine 20 mg tablet (Pepcid) 20 mg PO AMPM 03/26/24 11/18/24 03/24/24 fluoxetine 60 mg tablet 60 mg PO QPM 03/26/24 11/18/24 03/24/24 fluticasone 250 mcg-salmeterol 50 1 ea inhalation QPM PRN Coughing 03/26/24 11/18/24 03/24/24 mcg/dose blistr powdr for inhalation insulin aspart U-100 100 unit/mL 0 unit subcut WM 03/26/24 11/18/24 Unknown (3 mL) subcutaneous pen (Novolog FlexPen U-100 Insulin aspart) insulin degludec 100 18 unit subcut QPM 03/26/24 11/18/24 03/24/24 unit-liraglutide 3.6 mg/mL(3 mL) subcutaneous pen (Xultophy 100/3.6) insulin glargine 100 unit/mL 3 unit subcut PM 03/26/24 11/18/24 03/24/24 subcutaneous solution (Lantus U-100 Insulin) levothyroxine 50 mcg tablet 50 mcg PO DAILYBB 03/26/24 11/18/24 03/24/24 ondansetron HCl 4 mg tablet 4 mg PO Q6 PRN Nausea And Vomiting 03/26/24 11/18/24 03/25/24 polyethylene glycol 3350 17 gram 17 g PO DAILY PRN Constipation 03/26/24 11/18/24 Unknown oral powder packet (Miralax) docusate sodium 100 mg capsule 100 mg PO BID #60 caps 04/01/24 11/18/24 Unknown (Colace) aspirin 81 mg tablet,delayed 81 mg PO DAILY 09/20/24 11/18/24 Unknown release clopidogrel 75 mg tablet 75 mg DAILY 09/20/24 11/18/24 Unknown metolazone 10 mg tablet 2.5 mg PO DAILY PRN Weight Gain 09/20/24 11/18/24 Unknown torsemide 40 mg tablet 40 mg PO DAILY 09/20/24 11/18/24 Unknown vitamins A,C,W-oobb-utsgoj 4,296 1 cap PO BID 09/20/24 11/18/24 Unknown mcg-226 mg-90 mg capsule (PreserVision AREDS) L.acidop,casei,lactis,rham-B.lact,catarino 1 cap PO DAILY #7 caps 09/22/24 11/18/24 Unknown 625 mg (10 billion cell) capsule (Advanced Probiotic) nystatin 100,000 unit/gram topical 1 applic topical TID PRN Rash 11/18/24 11/18/24 Unknown powder Active Medications Generic Name Dose Route Start Last Admin Trade Name Freq PRN Reason Stop Dose Admin Acetaminophen 650 mg 11/18/24 16:23 11/20/24 07:50 Acetaminophen 325 Mg Tab PO 12/18/24 16:22 650 mg Q4H PRN Administration Pain or Fever Amiodarone HCl 200 mg 11/18/24 21:00 11/19/24 21:32 Amiodarone 200 Mg Tab PO 12/18/24 20:59 200 mg QPM AMI Administration Aspirin 81 mg 11/18/24 18:00 11/18/24 18:18 Aspirin 81 Mg Ectab PO 12/18/24 17:59 Not Given DAILY AMI Atorvastatin Calcium 20 mg 11/19/24 09:00 11/20/24 07:53 Atorvastatin 20 Mg Tab PO 12/19/24 08:59 20 mg QAM AMI Administration Bupropion HCl 150 mg 11/19/24 09:00 11/20/24 07:53 Bupropion Sr 150 Mg Tabcr PO 12/19/24 08:59 150 mg QAM AMI Administration Bupropion HCl 100 mg 11/19/24 09:00 11/20/24 07:53 Bupropion Sr 100 Mg Tabcr PO 12/19/24 08:59 100 mg QAM AMI Administration Clopidogrel Bisulfate 75 mg 11/18/24 18:00 11/18/24 18:18 Clopidogrel Bisulfate 75 Mg Tab PO 12/18/24 17:59 Not Given DAILY AMI Cyanocobalamin 1,000 mcg 11/19/24 09:00 11/20/24 07:52 Cyanocobalamin (B-12) 500 Mcg Tablet PO 12/19/24 08:59 1,000 mcg QAM AMI Administration Fluoxetine HCl 60 mg 11/18/24 21:00 11/19/24 21:32 Fluoxetine Hcl 20 Mg Cap PO 12/18/24 20:59 60 mg QPM AMI Administration Pantoprazole Sodium 40 mg in 10 mls @ 5 mls/min 11/18/24 21:00 11/20/24 07:54 Protonix IV 12/18/24 20:59 5 mls/min BID AMI Administration Insulin Aspart 0 units 11/18/24 16:30 11/20/24 13:26 Insulin Aspart Per Unit Charge SC 12/18/24 16:29 5 units ACHS AMI Administration Insulin Glargine 8 units 11/19/24 21:00 11/19/24 21:29 Lantus Per Unit Charge SC 12/18/24 20:59 8 units HS AMI Administration Lactobacillus Acidophilus 625 mg 11/19/24 09:00 11/20/24 07:53 Advanced Probiotic 625 Mg Capsule PO 12/19/24 08:59 625 mg DAILY AMI Administration Levothyroxine Sodium 50 mcg 11/19/24 06:30 11/20/24 06:28 Levothyroxine Sodium 50 Mcg Tablet PO 12/19/24 06:29 50 mcg DAILYBB AMI Administration Multivitamins/Minerals 1 tab 11/18/24 18:00 11/20/24 07:52 Cerovite Adv Formula Tab PO 12/18/24 17:59 1 tab DAILY AMI Administration Nystatin 1 appln 11/18/24 21:00 11/20/24 14:35 Nystatin Powder 15gm Btl EXT 12/18/24 20:59 Not Given TID AMI Ondansetron HCl 4 mg 11/18/24 16:23 11/19/24 21:38 Ondansetron Inj 2 Mg/Ml 2 Ml Vial IV 12/18/24 16:22 4 mg Q6H PRN Administration Nausea Polyethylene Glycol 17 gm 11/19/24 17:15 11/20/24 07:51 Polyethylene (Miralax) 17 Gm Pack PO 12/19/24 17:14 17 gm DAILY AMI Administration Torsemide 40 mg 11/19/24 09:00 11/20/24 07:52 Torsemide 20 Mg Tab PO 12/19/24 08:59 40 mg DAILY AMI Administration Vibegron 75 mg 11/19/24 09:00 11/20/24 07:53 Vibegron 75 Mg Tab PO 12/19/24 08:59 75 mg QAM AMI Administration Vitamin D 50 mcg 11/19/24 09:00 11/20/24 07:52 Cholecalciferol 25 Mcg (1000 Units) Tab PO 12/19/24 08:59 50 mcg QAM AMI Administration PG Care Time/CCT Total # of Minutes Spent Total Time Spent with Patient: Total time spent is greater than 50% in coordination of care (as documented) at patient's floor/unit and/or counseling patient: Coding Level of Care Code 85053 SUB INP/OBS CARE 3/50MIN Diagnoses Symptomatic anemia D64.9 Presence of Watchman left atrial appendage closure device Z95.818 Diastolic congestive heart failure I50.30 Paroxysmal atrial fibrillation I48.0 Dyslipidemia E78.5 Hypertension I10
[2024-11-21 09:07] LABS: Hematocrit (blood only) 25.2 % (37.0-47.0); Hemoglobin 8.0 g/dl (12.0-16.0); Immature Granulocytes # (auto) 0.04 K/uL (0.01-0.20); Immature Granulocytes % (auto) 0.5 %; Mean Corpuscular Hemoglobin 26.2 pg (25.0-34.0); Mean Corpuscular Volume 82.6 fL (80.0-100.0); Platelet Count 282 K/uL (130-400); RDW Standard Deviation 46.4 fL (36.4-46.3); Red Blood Count 3.05 M/uL (4.20-5.40); White Blood Count 8.20 K/ul (4.8-10.8)
[2024-11-21 09:12] LABS: Anion Gap 5.0 (3-11); Blood Urea Nitrogen 39.0 mg/dl (6-23); Calcium 8.8 mg/dl (8.6-10.3); Carbon Dioxide 33.0 mmol/L (21-32); Chloride 99.0 mmol/L (98-107); Creatinine Clr Calc Pharmacy 33.8 ml/min; Glucose 139.0 mg/dl (70-99(Fasting)); Magnesium 2.0 mg/dl (1.7-2.4); Potassium 4.1 mmol/L (3.5-5.1); Sodium 137.0 mmol/L (136-145)
--- NOTE | 2024-11-21 13:50 | Gastroenterology Progress Note ---
Date of Service November 21, 2024 Assessment & Plan (1) GI bleed: Plan: 69 year old female with history of insulin-dependent T2DM, dyslipidemia, hypothyroidism, diastolic heart failure, paroxysmal AFib, HTN, CKD3, depression, on DAPT from recent Watchman device and other below admitted w/ symptomatic anemia and report of dark stools - Patient pending EGD 11/23/2024 status post Plavix washout, under care of cardiology - Continue to monitor blood counts. Currently stable without evidence of active gastrointestinal bleeding - Trend H/H - Maintain patient on PPI. oral PPI as appropriate. - Continue aspirin - Patient continues to have episodes of vomiting when she ambulates which has been an ongoing issue. The etiology of this is perplexing. Patient denies any significant dizziness which could suggest a vertigo component. Continue ondansetron, optimize glycemic control. I spent a total of 25 minutes on the date of service in review of patient's record, and previously obtained information in person and appropriate medical visit, discussion and education of plan, with patient and/or caregiver, placing orders for tests/referral/procedures as medically necessary and documentation of pertinent clinical information in patient's medical records for their visit today. (2) Anemia: (3) Dizziness: (4) Vomiting: Admission and Anticipated Discharge Date Admission Date: November 18, 2024 Subjective Patient without significant events overnight. She tried to ambulate but had another episode of nonbloody nonbilious emesis as per previous episodes. She denies any fevers, chills. She is otherwise tolerating diet without event. She has not had a bowel movement for 24 hours and notes some pressure. Her last dose of MiraLAX was yesterday. Review of Systems Constitutional: + fatigue and + weakness; no fever, no c hills, no sweats and n o body aches Respiratory: + cough; no problem reported Gastrointestinal: + bloating, + nausea, + vomiting and + c onstipation; no abdominal pain, no belching, no early satiety, no heartburn, no coffee ground emesis, no hematemesis, no pain with swallowing, no dysphagia, no cramping, no change in stools, no fecal incontinence, no blood in stools and no melena Genitourinary: + problem reported Musculoskeletal: no problem reported Neurologic: no problem reported Physical Exam Constitutional: WD/WN, vitals as above Respiratory: normal respiratory effort, lungs clear to auscultation Cardiovascular: RRR, no murmur, no edema Gastrointestinal (Abdomen): normal bowel sounds, soft, nontender, no hepatosplenomegaly Results & Data Results & Data Vital Signs (Past 12 Hours) Vital Signs Temp Pulse Pulse Resp BP Pulse Ox O2 Del Method 11/21/24 12:00 36.5 C 62 19 106/65 96 Room Air 11/21/24 11:56 64 11/21/24 07:55 36.5 C 65 19 110/67 96 Room Air 11/21/24 04:02 36.6 C 63 18 101/65 95 CPAP PG Care Time/CCT Total # of Minutes Spent Total Time Spent with Patient: Total time spent is greater than 50% in coordination of care (as documented) at patient's floor/unit and/or counseling patient: Coding [place] [address] SUB INP/OBS CARE 2/35MIN Patient Type Established History Expanded Problem Focused Exam Expanded Problem Focused Medical Decision Making Low Complexity Diagnoses GI bleed K92.2 GI bleed type/associated pathology: unspecified gastrointestinal hemorrhage type Anemia D64.9 Anemia type: unspecified type Dizziness R42 Vomiting R11.2 Nausea presence: with nausea Vomiting type: unspecified (1) GI bleed GI bleed type/associated pathology: unspecified gastrointestinal hemorrhage type Qualified Code(s): K92.2 - Gastrointestinal hemorrhage, unspecified (2) Anemia Anemia type: unspecified type Qualified Code(s): D64.9 - Anemia, unspecified (4) Vomiting Nausea presence: with nausea Vomiting type: unspecified Qualified Code(s): R11.2 - Nausea with vomiting, unspecified
--- NOTE | 2024-11-21 14:11 | Hospitalist Progress Note ---
Date of Service November 21, 2024 Assessment & Plan (1) Anemia: (2) Dizziness: (3) GI bleed: (4) Presence of Watchman left atrial appendage closure device: (5) Diabetes mellitus, type 2: (6) Hypertension: (7) Hyperlipidemia: (8) Paroxysmal atrial fibrillation: Plan This is a 69 year old F with PMH of insulin-dependent DM Type II, dyslipidemia, hypothyroidism, diastolic heart failure, paroxysmal AFib, HTN, CKD Stage III, depression and other medical problems listed below who presents with dizziness and anemia concerning for GI bleed. Symptomatic anemia Concern for GI bleed Outpatient hgb from from 7.9 to 6.8 in past few days on outpatient labwork FOBT + in ED, endorsing exertional N/V and dark stools for past 2 weeks Remains on DAPT from Watchman device implantation in August - due for JUD - consulted cardiology for recs regarding continuation of DAPT, possibility of in- patient JUD Given exertional symptoms, consented in ED and now transfusing 1u prbc now with missed AM torsemide dose Monitor H&H, continue IV Protonix BID, Has been feeling much better following blood transfusion No evidence of acute blood loss except FOBT has been positive Her anticoagulation is on hold for EGD on 11/23/2024 Remains stable with hemoglobin of 8.5 and BUN and creatinine are slightly improved No more obvious GI bleed and she is waiting for endoscopy on Friday No more bleed and hemoglobin remains stable at 8.0 and denies any cardiac symptoms Iron deficiency anemia Complicated by blood loss Iron studies as an outpatient showed low iron of 15 TIBC 375, and transferrin saturation very low at 4% We did not give any iron infusion as she got blood transfusion already Will repeat iron studies after a few days before giving iron transfusion Has constipation will give MiraLAX-not restarting iron as of now Will get iron studies tomorrow HFpEF Appears compensated, admitting CXR without acute abnormalities Gave missed AM torsemide dose with transfusion, monitor volume status closely Cards consulted as above Appreciate cardiology input and recommendations No signs and or symptoms of fluid overload Paroxysmal Afib s/p Watchman procedure Continue home amiodarone HS for rate control On DAPT as above for Watchman device (history of bleed with Eliquis in past) - appreciate cards recs Telemetry, Mag/Phos with AM labs Will hold aspirin Plavix for possible EGD on 23 November DM II A1c 6.1 in September 2024 SSI while in-patient Glycemic consult placed BSG AC HS CKD III Cr 1.66 today. Baseline Cr ~ mid-high 1s. Continue to monitor CATHERINE CPAP HS Hyperlipidemia Continue home statin Ambulatory dysfunction Patient unsteady given above - fall precautions, PT/OT evals DVT Ppx: SCDs for now Code status: FULL PCP: Flo Dispo: Admitted to PCU Admission and Anticipated Discharge Date Admission Date: November 18, 2024 Subjective 11/19/2024 The patient was seen and examined in telemetry unit She is status post 1 unit of blood transfusion and has been feeling a lot better Denies any chest pain, palpitation or shortness of breath 11/20/2024 The patient was seen and examined in telemetry unit She has been stable and denies any symptoms Denies any more bleeding No chest pain, shortness of breath or palpitation 11/21/2024 The patient was seen and examined in telemetry unit She has been stable and does not have any more GI bleed Her hemoglobin 8.0 today does not have any cardiac symptoms Review of Systems Review of Systems: All systems reviewed and are unremarkable as noted below Physical Exam Physical Exam: Lying in bed without any acute distress Constitutional: well developed, well nourished, + ill appearing and + obese Eyes: PERRL, conjunctivae normal, anicteric sclerae ENMT: external ear and nose normal, oropharynx normal Neck: trachea midline, no thyromegaly Respiratory: no respiratory distress Auscultation: lungs clear to auscultation bilaterally Cardiovascular: Rate/Rhythm: regular rate and regular rhythm; not tachycardic Heart Sounds: normal S1, normal S2 and + murmur Extremities: + edema Gastrointestinal (Abdomen): Inspection/Auscultation: normal bowel sounds; abdomen not distended Percussion/Palpation: abdomen soft; abdomen nontender Neurologic: normal touch/pain/proprioception and moves all extremities; no focal motor deficits Lymphatic: no cervical or axillary lymphadenopathy Results & Data Results & Data Vital Signs (Past 12 Hours) Vital Signs Temp Pulse Pulse Resp BP Pulse Ox O2 Del Method 11/21/24 12:00 36.5 C 62 19 106/65 96 Room Air 11/21/24 11:56 64 11/21/24 07:55 36.5 C 65 19 110/67 96 Room Air 11/21/24 04:02 36.6 C 63 18 101/65 95 CPAP Laboratory Results Short CBC 11/21/24 Range/Units 08:43 WBC 8.20 (4.8-10.8) K/ul Hgb 8.0 L (12.0-16.0) g/dl Hct 25.2 L (37.0-47.0) % Plt Count 282 (130-400) K/uL BMP 11/21/24 08:43 Sodium 137 Potassium 4.1 Chloride 99 Carbon Dioxide 33 H BUN 39 H Creatinine 1.76 H D Glucose 139 H Calcium 8.8 Medications Administered Current Inpatient Medications Acetaminophen (Acetaminophen 325 Mg Tab) 650 mg PO Q4H PRN PRN Reason: Pain or Fever Stop: 12/18/24 16:22 Last Admin: 11/21/24 03:40 Dose: 650 mg Albuterol (Albuterol Hfa 8 Gm Inhaler) 2 puffs INH Q4 PRN PRN Reason: cough/sob Stop: 12/18/24 16:59 Amiodarone HCl (Amiodarone 200 Mg Tab) 200 mg PO QPM [facility] Stop: 12/18/24 20:59 Last Admin: 11/20/24 21:49 Dose: 200 mg Aspirin (Aspirin 81 Mg Ectab) 81 mg PO DAILY AMI Stop: 12/18/24 17:59 Last Admin: 11/18/24 18:18 Dose: Not Given Atorvastatin Calcium (Atorvastatin 20 Mg Tab) 20 mg PO QAM [facility] Stop: 12/19/24 08:59 Last Admin: 11/21/24 08:52 Dose: 20 mg Benzonatate (Benzonatate 100 Mg Capsule) 100 mg PO TID PRN PRN Reason: Cough Stop: 12/18/24 16:59 Bupropion HCl (Bupropion Sr 150 Mg Tabcr) 150 mg PO QAM [facility] Stop: 12/19/24 08:59 Last Admin: 11/21/24 08:53 Dose: 150 mg Bupropion HCl (Bupropion Sr 100 Mg Tabcr) 100 mg PO QAM [facility] Stop: 12/19/24 08:59 Last Admin: 11/21/24 08:53 Dose: 100 mg Clopidogrel Bisulfate (Clopidogrel Bisulfate 75 Mg Tab) 75 mg PO DAILY [facility] Stop: 12/18/24 17:59 Last Admin: 11/18/24 18:18 Dose: Not Given Cyanocobalamin (Cyanocobalamin (B-12) 500 Mcg Tablet) 1,000 mcg PO QAM AMI Stop: 12/19/24 08:59 Last Admin: 11/21/24 08:53 Dose: 1,000 mcg Dextrose (Dextrose 50% 50 Ml Syringe) 25 - 50 ml IV UD PRN; Protocol PRN Reason: Hypoglycemia Protocol Stop: 12/18/24 15:59 Fluoxetine HCl (Fluoxetine Hcl 20 Mg Cap) 60 mg PO QPM AMI Stop: 12/18/24 20:59 Last Admin: 11/20/24 21:48 Dose: 60 mg Fluticasone/Vilanterol (Fluticasone/Vilanterol 100/25mcg 14 Puffs/Inhaler) 1 puffs INH QPM PRN PRN Reason: Coughing Stop: 12/18/24 16:59 Glucagon (Glucagon For Inj 1 Mg Vial) 1 mg SQ UD PRN; Protocol PRN Reason: Hypoglycemia Protocol Stop: 12/18/24 15:59 Glucose (Glucose 40% Gel 15 Gm Tube) 15 - 30 gm PO UD PRN; Protocol PRN Reason: Hypoglycemia Protocol Stop: 12/18/24 15:59 Glucose (Glucose 10 Tab/Tube) 4 - 8 tab PO UD PRN; Protocol PRN Reason: Hypoglycemia Protocol Stop: 12/18/24 15:59 Pantoprazole Sodium (Protonix) 40 mg in 10 mls @ 5 mls/min IV BID AMI Stop: 12/18/24 20:59 Last Admin: 11/21/24 08:54 Dose: 5 mls/min Insulin Aspart (Insulin Aspart Per Unit Charge) 0 units SC ACHS AMI Stop: 12/18/24 16:29 Last Admin: 11/21/24 13:21 Dose: 5 units Insulin Glargine (Lantus Per Unit Charge) 9 units SC HS [facility] Stop: 12/21/24 20:59 Lactobacillus Acidophilus (Advanced Probiotic 625 Mg Capsule) 625 mg PO DAILY AMI Stop: 12/19/24 08:59 Last Admin: 11/21/24 08:54 Dose: 625 mg Levothyroxine Sodium (Levothyroxine Sodium 50 Mcg Tablet) 50 mcg PO DAILYBB AMI Stop: 12/19/24 06:29 Last Admin: 11/21/24 07:14 Dose: 50 mcg Melatonin (Melatonin 3 Mg Tab) 3 mg PO HS PRN PRN Reason: Sleep Stop: 12/18/24 16:22 Miscellaneous (Carbohydrates For Hypoglycemia ) 15 - 30 gm PO UD PRN PRN Reason: Hypoglycemia Treatment Stop: 12/18/24 15:59 Miscellaneous Information (Pharmacy Glycemic Mgmt Consult) 1 each N/A UD PRN; Protocol PRN Reason: Consult Stop: 12/18/24 14:29 Multivitamins/Minerals (Cerovite Adv Formula Tab) 1 tab PO DAILY AMI Stop: 12/18/24 17:59 Last Admin: 11/21/24 08:54 Dose: 1 tab Nystatin (Nystatin Powder 15gm Btl) 1 appln EXT TID AMI Stop: 12/18/24 20:59 Last Admin: 11/21/24 08:54 Dose: 1 appln Ondansetron HCl (Ondansetron Inj 2 Mg/Ml 2 Ml Vial) 4 mg IV Q6H PRN PRN Reason: Nausea Stop: 12/18/24 16:22 Last Admin: 11/19/24 21:38 Dose: 4 mg Polyethylene Glycol (Polyethylene (Miralax) 17 Gm Pack) 17 gm PO DAILY AMI Stop: 12/19/24 17:14 Last Admin: 11/21/24 08:56 Dose: 17 gm Torsemide (Torsemide 20 Mg Tab) 40 mg PO DAILY [facility] Stop: 12/19/24 08:59 Last Admin: 11/21/24 08:54 Dose: 40 mg Vibegron (Vibegron 75 Mg Tab) 75 mg PO QAM [facility] Stop: 12/19/24 08:59 Last Admin: 11/21/24 08:55 Dose: 75 mg Vitamin D (Cholecalciferol 25 Mcg (1000 Units) Tab) 50 mcg PO QAM AMI Stop: 12/19/24 08:59 Last Admin: 11/21/24 08:53 Dose: 50 mcg (1) Anemia Anemia type: unspecified type Qualified Code(s): D64.9 - Anemia, unspecified (3) GI bleed GI bleed type/associated pathology: unspecified gastrointestinal hemorrhage type Qualified Code(s): K92.2 - Gastrointestinal hemorrhage, unspecified
--- NOTE | 2024-11-21 16:57 | Cardiology Progress Note ---
Date of Service November 21, 2024 Assessment & Plan (1) Symptomatic anemia: (2) Presence of Watchman left atrial appendage closure device: (3) Diastolic congestive heart failure: (4) Paroxysmal atrial fibrillation: (5) Dyslipidemia: (6) Hypertension: Plan 69 year old female patient admitted to [facility] on 11/18/2024 with symptomatic anemia, hemoglobin 7.3 g/dL and + FOBT. History not overtly suggestive of active GI bleeding. Patient prescribed dual antiplatelet therapy with aspirin 81 mg/day and clopidogrel 75 mg/day, post September 16, 2024 left atrial appendage occlusion (# 24 mm Watchman) at [facility] [place]. GI bleed - stable H/H; no BM since admission Symptomatic anemia - better s/p 1 U PRBC Constipation - defer to hospitalist, GI PAF S/P Watchman DM HLD HTN CKD for EGD as per GI on Friday OK to hold ASA, Plavix for EGD - restart if and when OK with GI f/u H/H PRBC as indicated correct and f/u electrolytes f/u renal function adjust anti-HTN meds keeping systolic BP between 100-140 mmHg Transesophageal echocardiography (JUD) at [facility] [place] as scheduled on 12/10/2024, to confirm the absence of device related thrombus and significant peridevice leak. Admission and Anticipated Discharge Date Admission Date: November 18, 2024 Subjective Patient on exam is lying in bed in NAD; no c/o cp, sob, palpitations, dizziness, LOC; still no BM -> defer to hospitalist, GI Review of Systems Review of Systems: Complete Review of Systems is as stated above, negative, or noncontributory. Physical Exam Physical Exam: General: A&Ox3. NAD. Elevated BMI. Skin: Pale HENT: Normocephalic. Atraumatic. Mouth: Poor dentition. Eyes: PER. Conjunctiva pink, sclera pale Neck: No overt JVD. Heart: RRR. Grade II/ systolic ejection murmur. No diastolic murmur. Lungs: Diminished. Decreased. No wheeze. Abdomen: +BS. Soft. Nontender. No masses or organomegaly. Extremities: Mild right greater than left khoury erythema without overt cellulitis. Mild edema. No cyanosis. Limited neurological examination is without focal deficits. Results & Data Vital Signs (Past 12 Hours) Vital Signs Temp Pulse Pulse Resp BP Pulse Ox O2 Del Method 11/21/24 16:08 36.4 C L 60 19 108/67 98 Room Air 11/21/24 12:00 36.5 C 62 19 106/65 96 Room Air 11/21/24 11:56 64 11/21/24 07:55 36.5 C 65 19 110/67 96 Room Air Laboratory Results CBC 11/21/24 Range/Units 08:43 WBC 8.20 (4.8-10.8) K/ul RBC 3.05 L (4.20-5.40) M/uL Hgb 8.0 L (12.0-16.0) g/dl Hct 25.2 L (37.0-47.0) % Plt Count 282 (130-400) K/uL Neut # (Auto) 5.80 (1.40-6.50) K/uL Lymph # (Auto) 1.38 (1.20-3.40) K/uL [place] # (Auto) 0.79 H (0.11-0.59) K/uL Eos # (Auto) 0.15 (0.00-0.50) K/uL Baso # (Auto) 0.04 (0.00-0.20) K/uL Comprehensive Metabolic Panel 11/21/24 Range/Units 08:43 Sodium 137 (136-145) mmol/L Potassium 4.1 (3.5-5.1) mmol/L Chloride 99 (98-107) mmol/L Carbon Dioxide 33 H (21-32) mmol/L BUN 39 H (6-23) mg/dl Creatinine 1.76 H D (0.6-1.2) mg/dl Glucose 139 H (70-99(Fasting)) mg/dl Calcium 8.8 (8.6-10.3) mg/dl Intake and Output 11/21/24 11/21/24 11/21/24 06:59 14:59 22:59 Intake Total 720 / 720 Output Total 700 / 1225 250 / 250 Balance -700 / -215 470 / 470 Intake: Oral 720 / 720 Output: Urine Amount (Catheter) 700 / 1225 250 / 250 External 700 / 1225 250 / 250 Other: Other Intake Source water Weight 107.2 kg Weight Measurement Method Built in [facility] Diagnostic Findings Laboratory Results WBC 8.20 K/ul (4.8-10.8) 11/21/24 08:43 RBC 3.05 M/uL (4.20-5.40) L 11/21/24 08:43 Hgb 8.0 g/dl (12.0-16.0) L 11/21/24 08:43 Hct 25.2 % (37.0-47.0) L 11/21/24 08:43 MCV 82.6 fL (80.0-100.0) 11/21/24 08:43 MCH 26.2 pg (25.0-34.0) 11/21/24 08:43 MCHC 31.7 g/dL (32.0-36.0) L 11/21/24 08:43 RDW Std Deviation 46.4 fL (36.4-46.3) H 11/21/24 08:43 RDW Coeff of Buck 15.1 % (11.5-14.5) H 11/21/24 08:43 Plt Count 282 K/uL (130-400) 11/21/24 08:43 MPV 10.4 fL (9.4-12.4) 11/21/24 08:43 Immature Gran % (Auto) 0.5 % 11/21/24 08:43 Neut % (Auto) 70.8 % 11/21/24 08:43 Lymph % (Auto) 16.8 % 11/21/24 08:43 [place] % (Auto) 9.6 % 11/21/24 08:43 Eos % (Auto) 1.8 % 11/21/24 08:43 Baso % (Auto) 0.5 % 11/21/24 08:43 Neut # (Auto) 5.80 K/uL (1.40-6.50) 11/21/24 08:43 Lymph # (Auto) 1.38 K/uL (1.20-3.40) 11/21/24 08:43 [place] # (Auto) 0.79 K/uL (0.11-0.59) H 11/21/24 08:43 Eos # (Auto) 0.15 K/uL (0.00-0.50) 11/21/24 08:43 Baso # (Auto) 0.04 K/uL (0.00-0.20) 11/21/24 08:43 Immature Gran # (Auto) 0.04 K/uL (0.01-0.20) 11/21/24 08:43 Polychromasia 1+ 11/18/24 10:17 PT 10.6 Seconds (9.0-12.0) 11/18/24 10:17 INR 1.0 (0.9-1.1) 11/18/24 10:17 APTT 21 Seconds (21-31) 11/18/24 10:17 PTT Ratio 0.8 11/18/24 10:17 Sodium 137 mmol/L (136-145) 11/21/24 08:43 Potassium 4.1 mmol/L (3.5-5.1) 11/21/24 08:43 Chloride 99 mmol/L (98-107) 11/21/24 08:43 Carbon Dioxide 33 mmol/L (21-32) H 11/21/24 08:43 Anion Gap 5 (3-11) 11/21/24 08:43 BUN 39 mg/dl (6-23) H 11/21/24 08:43 Creatinine 1.76 mg/dl (0.6-1.2) H D 11/21/24 08:43 Est Cr Clr Drug Dosing 33.8 ml/min 11/21/24 08:43 eGFR 30.56 11/21/24 08:43 BUN/Creatinine Ratio 22.2 (10-20) H 11/21/24 08:43 Glucose 139 mg/dl (70-99(Fasting)) H 11/21/24 08:43 POC Glucose 118 mg/dl (70-99) H 11/21/24 16:51 Calcium 8.8 mg/dl (8.6-10.3) 11/21/24 08:43 Phosphorus 3.7 mg/dl (2.5-4.9) 11/19/24 05:58 Magnesium 2.0 mg/dl (1.7-2.4) 11/21/24 08:43 Total Bilirubin 0.6 mg/dl (0.2-1.0) 11/19/24 05:58 AST 50 U/L (13-39) H 11/19/24 05:58 ALT 45 U/L (7-52) 11/19/24 05:58 Alkaline Phosphatase 40 U/L (34-104) 11/19/24 05:58 Troponin I High Sens 7.8 pg/ml (0-14) 11/18/24 10:17 Total Protein 6.2 gm/dl (6.0-8.3) 11/19/24 05:58 Albumin 3.3 gm/dl (3.4-5.0) L 11/19/24 05:58 Globulin 2.9 gm/dl (2.5-4.0) 11/19/24 05:58 Albumin/Globulin Ratio 1.1 (0.9-2) 11/19/24 05:58 Lipase 13 U/L (11-82) 11/18/24 10:17 POC Stool Occult Blood Positive (Negative) A 11/18/24 10:33 SARS-CoV-2, RNA, NAAT NEGATIVE (NEGATIVE) 11/18/24 12:58 Blood Type A Positive 11/18/24 10:17 Blood Type Recheck A Positive 11/18/24 11:07 Antibody Screen NEGATIVE 11/18/24 10:17 Crossmatch See Detail 11/18/24 10:17 Impressions Abdomen/Pelvis CT 11/18/24 10:22 CT SCAN OF THE ABDOMEN AND PELVIS WITH IV CONTRAST CLINICAL HISTORY: GI bleeding. Dizziness and weakness. COMPARISON STUDY: Abdominal CT dated 09/20/2024. TECHNIQUE: Following the IV administration of 94 cc of Optiray 320, CT scan of the abdomen and pelvis is performed from the lung bases to the proximal femora. Images are reviewed in the axial, sagittal, and coronal planes. IV contrast was administered without complication. A dose lowering technique was utilized adhering to the principles of ALARA. CT DOSE: 1419.03 mGy.cm FINDINGS: Lung bases: A left atrial occlusion devices noted. The heart is enlarged and without pericardial effusion. There is coronary artery atherosclerosis. The mitral annulus is densely calcified. A tiny hiatal hernia is noted. The lung bases are clear. Liver: The contrast-enhanced liver is normal in size, contour, and attenuation. There is no intrahepatic biliary ductal dilatation. The hepatic veins and portal veins are patent. Gallbladder: Unremarkable. Spleen: Normal in size and attenuation. There are calcified splenic granulomas. Pancreas: Unremarkable. Adrenal glands: Unremarkable. Kidneys: The contrast enhanced kidneys demonstrate mild cortical atrophy and are without hydronephrosis. The kidneys enhance symmetrically. There are at least 2 nonobstructing right renal calculi which measure up to 10 mm. A 6 mm nonobstructing calculus is seen on the left. No ureteral stone is identified. There is nonspecific bilateral perinephric stranding. Abdominal vasculature: The abdominal aorta is normal in course and caliber noting mild atherosclerotic calcification. Bowel: There is mild colonic fecal retention. No bowel obstruction is seen. No intraluminal contrast is identified to suggest a site of GI bleeding. The appendix is well-visualized and normal. Peritoneum: There is no intraperitoneal free air or abdominal ascites. There is asymmetric atrophy of the right iliopsoas musculature as compared to the left. Lymphadenopathy: None. Pelvic viscera: The bladder is distended and contains a small focus of intraluminal gas. The uterus is surgically absent. No adnexal lesion is seen. Skeletal structures: The skeletal structures are osteopenic. There is mild lumbosacral spondylosis with a large posterior disc osteophyte complex at L4-L5. Sclerotic change is seen in the sacroiliac joints. No lytic or blastic lesions are seen. IMPRESSION: 1. The bladder is distended and contains a nonspecific focus of intraluminal gas. This may be related to instrumentation. Correlate with clinical findings and urinalysis. 2. There is nonspecific bilateral perinephric stranding which is similar to the 09/20/2024 examination. Again, this should be correlated with urinalysis. 3. Bilateral nephrolithiasis. 4. Cardiomegaly. 5. Additional findings as above. ACT 112: Negative or not required by law. Electronically signed by: Gaston Velasquez M.D. 11/18/2024 12:18 PM Chest X-Ray 11/18/24 10:22 SINGLE VIEW CHEST CLINICAL HISTORY: Dizziness FINDINGS: An AP, portable, upright chest radiograph is compared to study dated 09/20/2024. The examination is degraded by portable technique and patient rotation. An electronic device projects over the left chest wall. The heart is top normal for projection. The left atrial appendage occlusion device is noted. The pulmonary vasculature is noncongested. There is mild bibasilar atelectasis. The lungs and pleural spaces are otherwise clear. No pneumothorax is seen. The skeletal structures are osteopenic. The bony thorax is grossly intact. IMPRESSION: No acute cardiopulmonary abnormality is identified. ACT 112: Negative or not required by law. Electronically signed by: Gaston Velasquez M.D. 11/18/2024 11:09 AM Medications Administered Home Medications Medication Instructions Recorded Confirmed Last Taken atorvastatin 20 mg tablet 20 mg PO QAM #30 tabs 10/24/23 11/18/24 03/24/24 bupropion HCl 100 mg tablet,12 hr 100 mg PO QAM #30 ea 10/24/23 11/18/24 03/24/24 sustained-release bupropion HCl 150 mg tablet,12 hr 150 mg PO QAM #30 ea 10/24/23 11/18/24 03/24/24 sustained-release cyanocobalamin (vitamin B-12) 1,000 mcg PO QAM #30 tabs 10/24/23 11/18/24 03/24/24 1,000 mcg tablet mirabegron 50 mg tablet,extended 50 mg PO QAM #30 tabs 10/24/23 11/18/24 03/24/24 release 24 hr (Myrbetriq) albuterol sulfate 90 mcg/actuation 2 puff inhalation Q4 PRN cough/sob 03/26/24 11/18/24 Unknown aerosol inhaler amiodarone 200 mg tablet 200 mg PO QPM 03/26/24 11/18/24 03/24/24 benzonatate 100 mg capsule 100 mg PO TID PRN Cough 03/26/24 11/18/24 Unknown cholecalciferol (vitamin D3) 50 50 mcg PO QAM 03/26/24 11/18/24 03/24/24 mcg (2,000 unit) tablet (Vitamin D3) famotidine 20 mg tablet (Pepcid) 20 mg PO AMPM 03/26/24 11/18/24 03/24/24 fluoxetine 60 mg tablet 60 mg PO QPM 03/26/24 11/18/24 03/24/24 fluticasone 250 mcg-salmeterol 50 1 ea inhalation QPM PRN Coughing 03/26/24 11/18/24 03/24/24 mcg/dose blistr powdr for inhalation insulin aspart U-100 100 unit/mL 0 unit subcut WM 03/26/24 11/18/24 Unknown (3 mL) subcutaneous pen (Novolog FlexPen U-100 Insulin aspart) insulin degludec 100 18 unit subcut QPM 03/26/24 11/18/24 03/24/24 unit-liraglutide 3.6 mg/mL(3 mL) subcutaneous pen (Xultophy 100/3.6) insulin glargine 100 unit/mL 3 unit subcut PM 03/26/24 11/18/24 03/24/24 subcutaneous solution (Lantus U-100 Insulin) levothyroxine 50 mcg tablet 50 mcg PO DAILYBB 03/26/24 11/18/24 03/24/24 ondansetron HCl 4 mg tablet 4 mg PO Q6 PRN Nausea And Vomiting 03/26/24 11/18/24 03/25/24 polyethylene glycol 3350 17 gram 17 g PO DAILY PRN Constipation 03/26/24 11/18/24 Unknown oral powder packet (Miralax) docusate sodium 100 mg capsule 100 mg PO BID #60 caps 04/01/24 11/18/24 Unknown (Colace) aspirin 81 mg tablet,delayed 81 mg PO DAILY 09/20/24 11/18/24 Unknown release clopidogrel 75 mg tablet 75 mg DAILY 09/20/24 11/18/24 Unknown metolazone 10 mg tablet 2.5 mg PO DAILY PRN Weight Gain 09/20/24 11/18/24 Unknown torsemide 40 mg tablet 40 mg PO DAILY 09/20/24 11/18/24 Unknown vitamins A,C,K-zogt-ovwcgj 4,296 1 cap PO BID 09/20/24 11/18/24 Unknown mcg-226 mg-90 mg capsule (PreserVision AREDS) L.acidop,casei,lactis,rham-B.lact,catarino 1 cap PO DAILY #7 caps 09/22/24 11/18/24 Unknown 625 mg (10 billion cell) capsule (Advanced Probiotic) nystatin 100,000 unit/gram topical 1 applic topical TID PRN Rash 11/18/24 11/18/24 Unknown powder Active Medications Generic Name Dose Route Start Last Admin Trade Name Freq PRN Reason Stop Dose Admin Acetaminophen 650 mg 11/18/24 16:23 11/21/24 03:40 Acetaminophen 325 Mg Tab PO 12/18/24 16:22 650 mg Q4H PRN Administration Pain or Fever Amiodarone HCl 200 mg 11/18/24 21:00 11/20/24 21:49 Amiodarone 200 Mg Tab PO 12/18/24 20:59 200 mg QPM AMI Administration Aspirin 81 mg 11/18/24 18:00 11/18/24 18:18 Aspirin 81 Mg Ectab PO 12/18/24 17:59 Not Given DAILY AMI Atorvastatin Calcium 20 mg 11/19/24 09:00 11/21/24 08:52 Atorvastatin 20 Mg Tab PO 12/19/24 08:59 20 mg QAM AMI Administration Bupropion HCl 150 mg 11/19/24 09:00 11/21/24 08:53 Bupropion Sr 150 Mg Tabcr PO 12/19/24 08:59 150 mg QAM AMI Administration Bupropion HCl 100 mg 11/19/24 09:00 11/21/24 08:53 Bupropion Sr 100 Mg Tabcr PO 12/19/24 08:59 100 mg QAM AMI Administration Clopidogrel Bisulfate 75 mg 11/18/24 18:00 11/18/24 18:18 Clopidogrel Bisulfate 75 Mg Tab PO 12/18/24 17:59 Not Given DAILY AMI Cyanocobalamin 1,000 mcg 11/19/24 09:00 11/21/24 08:53 Cyanocobalamin (B-12) 500 Mcg Tablet PO 12/19/24 08:59 1,000 mcg QAM AMI Administration Fluoxetine HCl 60 mg 11/18/24 21:00 11/20/24 21:48 Fluoxetine Hcl 20 Mg Cap PO 12/18/24 20:59 60 mg QPM AMI Administration Pantoprazole Sodium 40 mg in 10 mls @ 5 mls/min 11/18/24 21:00 11/21/24 08:54 Protonix IV 12/18/24 20:59 5 mls/min BID AMI Administration Insulin Aspart 0 units 11/18/24 16:30 11/21/24 13:21 Insulin Aspart Per Unit Charge SC 12/18/24 16:29 5 units ACHS AMI Administration Lactobacillus Acidophilus 625 mg 11/19/24 09:00 11/21/24 08:54 Advanced Probiotic 625 Mg Capsule PO 12/19/24 08:59 625 mg DAILY AMI Administration Levothyroxine Sodium 50 mcg 11/19/24 06:30 11/21/24 07:14 Levothyroxine Sodium 50 Mcg Tablet PO 12/19/24 06:29 50 mcg DAILYBB AMI Administration Multivitamins/Minerals 1 tab 11/18/24 18:00 11/21/24 08:54 Cerovite Adv Formula Tab PO 12/18/24 17:59 1 tab DAILY AMI Administration Nystatin 1 appln 11/18/24 21:00 11/21/24 14:23 Nystatin Powder 15gm Btl EXT 12/18/24 20:59 1 appln TID AMI Administration Ondansetron HCl 4 mg 11/18/24 16:23 11/19/24 21:38 Ondansetron Inj 2 Mg/Ml 2 Ml Vial IV 12/18/24 16:22 4 mg Q6H PRN Administration Nausea Polyethylene Glycol 17 gm 11/19/24 17:15 11/21/24 08:56 Polyethylene (Miralax) 17 Gm Pack PO 12/19/24 17:14 17 gm DAILY AMI Administration Torsemide 40 mg 11/19/24 09:00 11/21/24 08:54 Torsemide 20 Mg Tab PO 12/19/24 08:59 40 mg DAILY AMI Administration Vibegron 75 mg 11/19/24 09:00 11/21/24 08:55 Vibegron 75 Mg Tab PO 12/19/24 08:59 75 mg QAM AMI Administration Vitamin D 50 mcg 11/19/24 09:00 11/21/24 08:53 Cholecalciferol 25 Mcg (1000 Units) Tab PO 12/19/24 08:59 50 mcg QAM AMI Administration PG Care Time/CCT Total # of Minutes Spent Total Time Spent with Patient: Total time spent is greater than 50% in coordination of care (as documented) at patient's floor/unit and/or counseling patient: Coding Level of Care Code 07870 SUB INP/OBS CARE 3/50MIN Diagnoses Symptomatic anemia D64.9 Presence of Watchman left atrial appendage closure device Z95.818 Diastolic congestive heart failure I50.30 Paroxysmal atrial fibrillation I48.0 Dyslipidemia E78.5 Hypertension I10
[2024-11-21] MEDS: LANTUS PER UNIT CHARGE SC SCH (20:40)
[2024-11-22 06:00] LABS: Hematocrit (blood only) 24.7 % (37.0-47.0); Hemoglobin 7.9 g/dl (12.0-16.0); Immature Granulocytes # (auto) 0.07 K/uL (0.01-0.20); Immature Granulocytes % (auto) 0.8 %; Mean Corpuscular Hemoglobin 26.5 pg (25.0-34.0); Mean Corpuscular Volume 82.9 fL (80.0-100.0); Platelet Count 272 K/uL (130-400); RDW Standard Deviation 46.6 fL (36.4-46.3); Red Blood Count 2.98 M/uL (4.20-5.40); White Blood Count 8.80 K/ul (4.8-10.8)
[2024-11-22 06:18] LABS: Anion Gap 5.0 (3-11); Blood Urea Nitrogen 48.0 mg/dl (6-23); Calcium 8.7 mg/dl (8.6-10.3); Carbon Dioxide 32.0 mmol/L (21-32); Chloride 100.0 mmol/L (98-107); Creatinine Clr Calc Pharmacy 27.7 ml/min; Glucose 155.0 mg/dl (70-99(Fasting)); Iron 12.0 mcg/dl (35-150); Potassium 4.4 mmol/L (3.5-5.1); Sodium 137.0 mmol/L (136-145)
[2024-11-22 06:36] LABS: RBC Morphology Unremarkable
[2024-11-22 06:39] LABS: Ferritin 14.1 ng/ml (8-388)
--- NOTE | 2024-11-22 08:32 | Gastroenterology Progress Note ---
Date of Service November 22, 2024 Assessment & Plan (1) Symptomatic anemia: Plan: Persistent anemia possible GI bleed. Will proceed with endoscopy in AM. Hemodynamically stable. (2) GI bleed: Admission and Anticipated Discharge Date Admission Date: November 18, 2024 Subjective Denies abdominal pain shortness of breath or chest pain Physical Exam Physical Exam: No acute distress Respiratory rate regular Cardiac rhythm regular Abdomen soft nontender obese Results & Data Results & Data Vital Signs (Past 12 Hours) Vital Signs Temp Pulse Pulse Resp BP Pulse Ox O2 Del Method 11/22/24 08:11 36.5 C 82 17 105/72 96 Room Air 11/22/24 04:18 36.6 C 63 20 110/67 93 Room Air, CPAP 11/22/24 00:03 36.5 C 52 L 18 106/65 95 Room Air, CPAP 11/21/24 21:40 96 H Laboratory Results Laboratory Results - last 48 hr 11/18/24 11/20/24 11/20/24 10:17 07:53 12:09 WBC RBC Hgb Hct MCV MCH MCHC RDW Std Deviation RDW Coeff of Buck Plt Count MPV Immature Gran % (Auto) Neut % (Auto) Lymph % (Auto) [place] % (Auto) Eos % (Auto) Baso % (Auto) Neut # (Auto) Lymph # (Auto) [place] # (Auto) Eos # (Auto) Baso # (Auto) Immature Gran # (Auto) RBC Morphology Sodium 138 Potassium 4.0 Chloride 99 Carbon Dioxide 31 Anion Gap 8 BUN 31 H Creatinine 1.45 H Est Cr Clr Drug Dosing 42.6 eGFR 38.56 BUN/Creatinine Ratio 21.4 H Glucose 129 H POC Glucose 164 H Calcium 9.0 Magnesium 2.0 Iron Unsaturated IBC Ferritin Crossmatch See Detail 11/20/24 11/20/24 11/21/24 16:44 20:31 07:58 WBC RBC Hgb Hct MCV MCH MCHC RDW Std Deviation RDW Coeff of Buck Plt Count MPV Immature Gran % (Auto) Neut % (Auto) Lymph % (Auto) [place] % (Auto) Eos % (Auto) Baso % (Auto) Neut # (Auto) Lymph # (Auto) [place] # (Auto) Eos # (Auto) Baso # (Auto) Immature Gran # (Auto) RBC Morphology Sodium Potassium Chloride Carbon Dioxide Anion Gap BUN Creatinine Est Cr Clr Drug Dosing eGFR BUN/Creatinine Ratio Glucose POC Glucose 147 H 154 H 146 H Calcium Magnesium Iron Unsaturated IBC Ferritin Crossmatch 11/21/24 11/21/24 11/21/24 08:43 12:03 16:51 WBC 8.20 RBC 3.05 L Hgb 8.0 L Hct 25.2 L MCV 82.6 MCH 26.2 MCHC 31.7 L RDW Std Deviation 46.4 H RDW Coeff of Buck 15.1 H Plt Count 282 MPV 10.4 Immature Gran % (Auto) 0.5 Neut % (Auto) 70.8 Lymph % (Auto) 16.8 [place] % (Auto) 9.6 Eos % (Auto) 1.8 Baso % (Auto) 0.5 Neut # (Auto) 5.80 Lymph # (Auto) 1.38 [place] # (Auto) 0.79 H Eos # (Auto) 0.15 Baso # (Auto) 0.04 Immature Gran # (Auto) 0.04 RBC Morphology Sodium 137 Potassium 4.1 Chloride 99 Carbon Dioxide 33 H Anion Gap 5 BUN 39 H Creatinine 1.76 H D Est Cr Clr Drug Dosing 33.8 eGFR 30.56 BUN/Creatinine Ratio 22.2 H Glucose 139 H POC Glucose 182 H 118 H Calcium 8.8 Magnesium 2.0 Iron Unsaturated IBC Ferritin Crossmatch 11/21/24 11/22/24 11/22/24 20:30 05:40 08:00 WBC 8.80 RBC 2.98 L Hgb 7.9 L Hct 24.7 L MCV 82.9 MCH 26.5 MCHC 32.0 RDW Std Deviation 46.6 H RDW Coeff of Buck 15.2 H Plt Count 272 MPV 10.6 Immature Gran % (Auto) 0.8 Neut % (Auto) 69.7 Lymph % (Auto) 16.3 [place] % (Auto) 10.9 Eos % (Auto) 1.8 Baso % (Auto) 0.5 Neut # (Auto) 6.14 Lymph # (Auto) 1.43 [place] # (Auto) 0.96 H Eos # (Auto) 0.16 Baso # (Auto) 0.04 Immature Gran # (Auto) 0.07 RBC Morphology Unremarkable Sodium 137 Potassium 4.4 Chloride 100 Carbon Dioxide 32 Anion Gap 5 BUN 48 H Creatinine 2.14 H D Est Cr Clr Drug Dosing 27.7 eGFR 24.17 BUN/Creatinine Ratio 22.4 H Glucose 155 H POC Glucose 153 H 162 H Calcium 8.7 Magnesium Iron 12 L Unsaturated IBC 335 Ferritin 14.1 Crossmatch PG Care Time/CCT Total # of Minutes Spent Total Time Spent with Patient: Total time spent is greater than 50% in coordination of care (as documented) at patient's floor/unit and/or counseling patient: Coding Level of Care Code 09458 SUB INP/OBS CARE 2/35MIN Diagnoses Symptomatic anemia D64.9 GI bleed K92.2 GI bleed type/associated pathology: unspecified gastrointestinal hemorrhage type (2) GI bleed GI bleed type/associated pathology: unspecified gastrointestinal hemorrhage type Qualified Code(s): K92.2 - Gastrointestinal hemorrhage, unspecified
--- NOTE | 2024-11-22 09:06 | Cardiology Progress Note ---
Date of Service November 22, 2024 Assessment & Plan (1) Symptomatic anemia: (2) Presence of Watchman left atrial appendage closure device: (3) Diastolic congestive heart failure: (4) Paroxysmal atrial fibrillation: (5) Dyslipidemia: (6) Hypertension: Plan 69 year old female patient admitted to [facility] on 11/18/2024 with symptomatic anemia, hemoglobin 7.3 g/dL and + FOBT. History not overtly suggestive of active GI bleeding. Patient prescribed dual antiplatelet therapy with aspirin 81 mg/day and clopidogrel 75 mg/day, post September 16, 2024 left atrial appendage occlusion (# 24 mm Watchman) at [facility]. GI bleed - stable H/H; no BM since admission Symptomatic anemia - s/p 1 U PRBC Constipation - defer to hospitalist, GI PAF S/P Watchman DM HLD HTN CKD for EGD as per GI on 11/23/24 OK to hold ASA, Plavix for EGD - restart if and when OK with GI f/u H/H PRBC as indicated adjust anti-HTN meds keeping systolic BP between 100-140 mmHg Transesophageal echocardiography (JUD) at [facility] as scheduled on 12/10/2024, to confirm the absence of device related thrombus and significant peridevice leak. Admission and Anticipated Discharge Date Admission Date: November 18, 2024 Subjective Patient on exam is lying in bed in NAD; no c/o cp, sob, palpitations, dizziness, LOC, cough, fever, nausea, vomiting, abdominal pain; no leg swelling; patient is unhappy with food -> communicated to executive vice president business development of Systems Review of Systems: Complete Review of Systems is as stated above, negative, or noncontributory. Physical Exam Physical Exam: General: A&Ox3. NAD. Elevated BMI. Skin: Pale HENT: Normocephalic. Atraumatic. Mouth: Poor dentition. Eyes: PER. Conjunctiva pink, sclera pale Neck: No overt JVD. Heart: RRR. Grade II/ systolic ejection murmur. No diastolic murmur. Lungs: Diminished. Decreased. No wheeze. Abdomen: +BS. Soft. Nontender. No masses or organomegaly. Extremities: no edema, No cyanosis. Limited neurological examination is without focal deficits. Results & Data Vital Signs (Past 12 Hours) Vital Signs Temp Pulse Pulse Resp BP Pulse Ox O2 Del Method 11/22/24 08:42 Room Air 11/22/24 08:11 36.5 C 82 17 105/72 96 Room Air 11/22/24 04:18 36.6 C 63 20 110/67 93 Room Air, CPAP 11/22/24 00:03 36.5 C 52 L 18 106/65 95 Room Air, CPAP 11/21/24 21:40 96 H Laboratory Results CBC 11/21/24 11/22/24 Range/Units 08:43 05:40 WBC 8.20 8.80 (4.8-10.8) K/ul RBC 3.05 L 2.98 L (4.20-5.40) M/uL Hgb 8.0 L 7.9 L (12.0-16.0) g/dl Hct 25.2 L 24.7 L (37.0-47.0) % Plt Count 282 272 (130-400) K/uL Neut # (Auto) 5.80 6.14 (1.40-6.50) K/uL Lymph # (Auto) 1.38 1.43 (1.20-3.40) K/uL Drew # (Auto) 0.79 H 0.96 H (0.11-0.59) K/uL Eos # (Auto) 0.15 0.16 (0.00-0.50) K/uL Baso # (Auto) 0.04 0.04 (0.00-0.20) K/uL Comprehensive Metabolic Panel 11/21/24 11/22/24 Range/Units 08:43 05:40 Sodium 137 137 (136-145) mmol/L Potassium 4.1 4.4 (3.5-5.1) mmol/L Chloride 99 100 (98-107) mmol/L Carbon Dioxide 33 H 32 (21-32) mmol/L BUN 39 H 48 H (6-23) mg/dl Creatinine 1.76 H D 2.14 H D (0.6-1.2) mg/dl Glucose 139 H 155 H (70-99(Fasting)) mg/dl Calcium 8.8 8.7 (8.6-10.3) mg/dl Intake and Output 11/21/24 11/22/24 11/22/24 22:59 06:59 14:59 Output Total 725 / 1275 300 / 1275 Balance -725 / -555 -300 / -555 Output: Urine Amount (Catheter) 725 / 1275 300 / 1275 External 725 / 127 300 / 1275 Other: # Unmeasured Voids 2 Weight 106.9 kg Weight Measurement Method Built in [facility] Diagnostic Findings Laboratory Results WBC 8.80 K/ul (4.8-10.8) 11/22/24 05:40 RBC 2.98 M/uL (4.20-5.40) L 11/22/24 05:40 Hgb 7.9 g/dl (12.0-16.0) L 11/22/24 05:40 Hct 24.7 % (37.0-47.0) L 11/22/24 05:40 MCV 82.9 fL (80.0-100.0) 11/22/24 05:40 MCH 26.5 pg (25.0-34.0) 11/22/24 05:40 MCHC 32.0 g/dL (32.0-36.0) 11/22/24 05:40 RDW Std Deviation 46.6 fL (36.4-46.3) H 11/22/24 05:40 RDW Coeff of Buck 15.2 % (11.5-14.5) H 11/22/24 05:40 Plt Count 272 K/uL (130-400) 11/22/24 05:40 MPV 10.6 fL (9.4-12.4) 11/22/24 05:40 Immature Gran % (Auto) 0.8 % 11/22/24 05:40 Neut % (Auto) 69.7 % 11/22/24 05:40 Lymph % (Auto) 16.3 % 11/22/24 05:40 Drew % (Auto) 10.9 % 11/22/24 05:40 Eos % (Auto) 1.8 % 11/22/24 05:40 Baso % (Auto) 0.5 % 11/22/24 05:40 Neut # (Auto) 6.14 K/uL (1.40-6.50) 11/22/24 05:40 Lymph # (Auto) 1.43 K/uL (1.20-3.40) 11/22/24 05:40 Drew # (Auto) 0.96 K/uL (0.11-0.59) H 11/22/24 05:40 Eos # (Auto) 0.16 K/uL (0.00-0.50) 11/22/24 05:40 Baso # (Auto) 0.04 K/uL (0.00-0.20) 11/22/24 05:40 Immature Gran # (Auto) 0.07 K/uL (0.01-0.20) 11/22/24 05:40 RBC Morphology Unremarkable 11/22/24 05:40 Polychromasia 1+ 11/18/24 10:17 PT 10.6 Seconds (9.0-12.0) 11/18/24 10:17 INR 1.0 (0.9-1.1) 11/18/24 10:17 APTT 21 Seconds (21-31) 11/18/24 10:17 PTT Ratio 0.8 11/18/24 10:17 Sodium 137 mmol/L (136-145) 11/22/24 05:40 Potassium 4.4 mmol/L (3.5-5.1) 11/22/24 05:40 Chloride 100 mmol/L (98-107) 11/22/24 05:40 Carbon Dioxide 32 mmol/L (21-32) 11/22/24 05:40 Anion Gap 5 (3-11) 11/22/24 05:40 BUN 48 mg/dl (6-23) H 11/22/24 05:40 Creatinine 2.14 mg/dl (0.6-1.2) H D 11/22/24 05:40 Est Cr Clr Drug Dosing 27.7 ml/min 11/22/24 05:40 eGFR 24.17 11/22/24 05:40 BUN/Creatinine Ratio 22.4 (10-20) H 11/22/24 05:40 Glucose 155 mg/dl (70-99(Fasting)) H 11/22/24 05:40 POC Glucose 162 mg/dl (70-99) H 11/22/24 08:00 Calcium 8.7 mg/dl (8.6-10.3) 11/22/24 05:40 Phosphorus 3.7 mg/dl (2.5-4.9) 11/19/24 05:58 Magnesium 2.0 mg/dl (1.7-2.4) 11/21/24 08:43 Iron 12 mcg/dl (35-150) L 11/22/24 05:40 Unsaturated IBC 335 mcg/dl (155-355) 11/22/24 05:40 Ferritin 14.1 ng/ml (8-388) 11/22/24 05:40 Total Bilirubin 0.6 mg/dl (0.2-1.0) 11/19/24 05:58 AST 50 U/L (13-39) H 11/19/24 05:58 ALT 45 U/L (7-52) 11/19/24 05:58 Alkaline Phosphatase 40 U/L (34-104) 11/19/24 05:58 Troponin I High Sens 7.8 pg/ml (0-14) 11/18/24 10:17 Total Protein 6.2 gm/dl (6.0-8.3) 11/19/24 05:58 Albumin 3.3 gm/dl (3.4-5.0) L 11/19/24 05:58 Globulin 2.9 gm/dl (2.5-4.0) 11/19/24 05:58 Albumin/Globulin Ratio 1.1 (0.9-2) 11/19/24 05:58 Lipase 13 U/L (11-82) 11/18/24 10:17 POC Stool Occult Blood Positive (Negative) A 11/18/24 10:33 SARS-CoV-2, RNA, NAAT NEGATIVE (NEGATIVE) 11/18/24 12:58 Blood Type A Positive 11/18/24 10:17 Blood Type Recheck A Positive 11/18/24 11:07 Antibody Screen NEGATIVE 11/18/24 10:17 Crossmatch See Detail 11/18/24 10:17 Impressions Abdomen/Pelvis CT 11/18/24 10:22 CT SCAN OF THE ABDOMEN AND PELVIS WITH IV CONTRAST CLINICAL HISTORY: GI bleeding. Dizziness and weakness. COMPARISON STUDY: Abdominal CT dated 09/20/2024. TECHNIQUE: Following the IV administration of 94 cc of Optiray 320, CT scan of the abdomen and pelvis is performed from the lung bases to the proximal femora. Images are reviewed in the axial, sagittal, and coronal planes. IV contrast was administered without complication. A dose lowering technique was utilized adhering to the principles of ALARA. CT DOSE: 1419.03 mGy.cm FINDINGS: Lung bases: A left atrial occlusion devices noted. The heart is enlarged and without pericardial effusion. There is coronary artery atherosclerosis. The mitral annulus is densely calcified. A tiny hiatal hernia is noted. The lung bases are clear. Liver: The contrast-enhanced liver is normal in size, contour, and attenuation. There is no intrahepatic biliary ductal dilatation. The hepatic veins and portal veins are patent. Gallbladder: Unremarkable. Spleen: Normal in size and attenuation. There are calcified splenic granulomas. Pancreas: Unremarkable. Adrenal glands: Unremarkable. Kidneys: The contrast enhanced kidneys demonstrate mild cortical atrophy and are without hydronephrosis. The kidneys enhance symmetrically. There are at least 2 nonobstructing right renal calculi which measure up to 10 mm. A 6 mm nonobstructing calculus is seen on the left. No ureteral stone is identified. There is nonspecific bilateral perinephric stranding. Abdominal vasculature: The abdominal aorta is normal in course and caliber noting mild atherosclerotic calcification. Bowel: There is mild colonic fecal retention. No bowel obstruction is seen. No intraluminal contrast is identified to suggest a site of GI bleeding. The appendix is well-visualized and normal. Peritoneum: There is no intraperitoneal free air or abdominal ascites. There is asymmetric atrophy of the right iliopsoas musculature as compared to the left. Lymphadenopathy: None. Pelvic viscera: The bladder is distended and contains a small focus of intraluminal gas. The uterus is surgically absent. No adnexal lesion is seen. Skeletal structures: The skeletal structures are osteopenic. There is mild lumbosacral spondylosis with a large posterior disc osteophyte complex at L4-L5. Sclerotic change is seen in the sacroiliac joints. No lytic or blastic lesions are seen. IMPRESSION: 1. The bladder is distended and contains a nonspecific focus of intraluminal gas. This may be related to instrumentation. Correlate with clinical findings and urinalysis. 2. There is nonspecific bilateral perinephric stranding which is similar to the 09/20/2024 examination. Again, this should be correlated with urinalysis. 3. Bilateral nephrolithiasis. 4. Cardiomegaly. 5. Additional findings as above. ACT 112: Negative or not required by law. Electronically signed by: Gaston Velasquez M.D. 11/18/2024 12:18 PM Chest X-Ray 11/18/24 10:22 SINGLE VIEW CHEST CLINICAL HISTORY: Dizziness FINDINGS: An AP, portable, upright chest radiograph is compared to study dated 09/20/2024. The examination is degraded by portable technique and patient rotation. An electronic device projects over the left chest wall. The heart is top normal for projection. The left atrial appendage occlusion device is noted. The pulmonary vasculature is noncongested. There is mild bibasilar atelectasis. The lungs and pleural spaces are otherwise clear. No pneumothorax is seen. The skeletal structures are osteopenic. The bony thorax is grossly intact. IMPRESSION: No acute cardiopulmonary abnormality is identified. ACT 112: Negative or not required by law. Electronically signed by: Gaston Velasquez M.D. 11/18/2024 11:09 AM Medications Administered Home Medications Medication Instructions Recorded Confirmed Last Taken atorvastatin 20 mg tablet 20 mg PO QAM #30 tabs 10/24/23 11/18/24 03/24/24 bupropion HCl 100 mg tablet,12 hr 100 mg PO QAM #30 ea 10/24/23 11/18/24 03/24/24 sustained-release bupropion HCl 150 mg tablet,12 hr 150 mg PO QAM #30 ea 10/24/23 11/18/24 03/24/24 sustained-release cyanocobalamin (vitamin B-12) 1,000 mcg PO QAM #30 tabs 10/24/23 11/18/24 03/24/24 1,000 mcg tablet mirabegron 50 mg tablet,extended 50 mg PO QAM #30 tabs 10/24/23 11/18/24 03/24/24 release 24 hr (Myrbetriq) albuterol sulfate 90 mcg/actuation 2 puff inhalation Q4 PRN cough/sob 03/26/24 11/18/24 Unknown aerosol inhaler amiodarone 200 mg tablet 200 mg PO QPM 03/26/24 11/18/24 03/24/24 benzonatate 100 mg capsule 100 mg PO TID PRN Cough 03/26/24 11/18/24 Unknown cholecalciferol (vitamin D3) 50 50 mcg PO QAM 03/26/24 11/18/24 03/24/24 mcg (2,000 unit) tablet (Vitamin D3) famotidine 20 mg tablet (Pepcid) 20 mg PO AMPM 03/26/24 11/18/24 03/24/24 fluoxetine 60 mg tablet 60 mg PO QPM 03/26/24 11/18/24 03/24/24 fluticasone 250 mcg-salmeterol 50 1 ea inhalation QPM PRN Coughing 03/26/24 11/18/24 03/24/24 mcg/dose blistr powdr for inhalation insulin aspart U-100 100 unit/mL 0 unit subcut WM 03/26/24 11/18/24 Unknown (3 mL) subcutaneous pen (Novolog FlexPen U-100 Insulin aspart) insulin degludec 100 18 unit subcut QPM 03/26/24 11/18/24 03/24/24 unit-liraglutide 3.6 mg/mL(3 mL) subcutaneous pen (Xultophy 100/3.6) insulin glargine 100 unit/mL 3 unit subcut PM 03/26/24 11/18/24 03/24/24 subcutaneous solution (Lantus U-100 Insulin) levothyroxine 50 mcg tablet 50 mcg PO DAILYBB 03/26/24 11/18/24 03/24/24 ondansetron HCl 4 mg tablet 4 mg PO Q6 PRN Nausea And Vomiting 03/26/24 11/18/24 03/25/24 polyethylene glycol 3350 17 gram 17 g PO DAILY PRN Constipation 03/26/24 11/18/24 Unknown oral powder packet (Miralax) docusate sodium 100 mg capsule 100 mg PO BID #60 caps 04/01/24 11/18/24 Unknown (Colace) aspirin 81 mg tablet,delayed 81 mg PO DAILY 09/20/24 11/18/24 Unknown release clopidogrel 75 mg tablet 75 mg DAILY 09/20/24 11/18/24 Unknown metolazone 10 mg tablet 2.5 mg PO DAILY PRN Weight Gain 09/20/24 11/18/24 Unknown torsemide 40 mg tablet 40 mg PO DAILY 09/20/24 11/18/24 Unknown vitamins A,C,O-bivx-mvaiyd 4,296 1 cap PO BID 09/20/24 11/18/24 Unknown mcg-226 mg-90 mg capsule (PreserVision AREDS) L.acidop,casei,lactis,rham-B.lact,catarino 1 cap PO DAILY #7 caps 09/22/24 11/18/24 Unknown 625 mg (10 billion cell) capsule (Advanced Probiotic) nystatin 100,000 unit/gram topical 1 applic topical TID PRN Rash 11/18/24 11/18/24 Unknown powder Active Medications Generic Name Dose Route Start Last Admin Trade Name Freq PRN Reason Stop Dose Admin Acetaminophen 650 mg 11/18/24 16:23 11/21/24 03:40 Acetaminophen 325 Mg Tab PO 12/18/24 16:22 650 mg Q4H PRN Administration Pain or Fever Amiodarone HCl 200 mg 11/18/24 21:00 11/21/24 20:32 Amiodarone 200 Mg Tab PO 12/18/24 20:59 200 mg QPM AMI Administration Aspirin 81 mg 11/18/24 18:00 11/18/24 18:18 Aspirin 81 Mg Ectab PO 12/18/24 17:59 Not Given DAILY AMI Atorvastatin Calcium 20 mg 11/19/24 09:00 11/22/24 08:57 Atorvastatin 20 Mg Tab PO 12/19/24 08:59 20 mg QAM AMI Administration Bupropion HCl 150 mg 11/19/24 09:00 11/22/24 08:57 Bupropion Sr 150 Mg Tabcr PO 12/19/24 08:59 150 mg QAM AMI Administration Bupropion HCl 100 mg 11/19/24 09:00 11/22/24 08:57 Bupropion Sr 100 Mg Tabcr PO 12/19/24 08:59 100 mg QAM AMI Administration Clopidogrel Bisulfate 75 mg 11/18/24 18:00 11/18/24 18:18 Clopidogrel Bisulfate 75 Mg Tab PO 12/18/24 17:59 Not Given DAILY AMI Cyanocobalamin 1,000 mcg 11/19/24 09:00 11/22/24 08:57 Cyanocobalamin (B-12) 500 Mcg Tablet PO 12/19/24 08:59 1,000 mcg QAM AMI Administration Fluoxetine HCl 60 mg 11/18/24 21:00 11/21/24 20:33 Fluoxetine Hcl 20 Mg Cap PO 12/18/24 20:59 60 mg QPM AMI Administration Pantoprazole Sodium 40 mg in 10 mls @ 5 mls/min 11/18/24 21:00 11/22/24 08:57 Protonix IV 12/18/24 20:59 5 mls/min BID AMI Administration Insulin Aspart 0 units 11/18/24 16:30 11/22/24 09:02 Insulin Aspart Per Unit Charge SC 12/18/24 16:29 4 units ACHS AMI Administration Insulin Glargine 9 units 11/21/24 21:00 11/21/24 20:40 Lantus Per Unit Charge MO 12/21/24 20:59 9 units HS AMI Administration Lactobacillus Acidophilus 625 mg 11/19/24 09:00 11/22/24 08:57 Advanced Probiotic 625 Mg Capsule PO 12/19/24 08:59 625 mg DAILY AMI Administration Levothyroxine Sodium 50 mcg 11/19/24 06:30 11/22/24 05:44 Levothyroxine Sodium 50 Mcg Tablet PO 12/19/24 06:29 50 mcg DAILYBB AMI Administration Multivitamins/Minerals 1 tab 11/18/24 18:00 11/22/24 08:56 Cerovite Adv Formula Tab PO 12/18/24 17:59 1 tab DAILY AMI Administration Nystatin 1 appln 11/18/24 21:00 11/22/24 08:57 Nystatin Powder 15gm Btl EXT 12/18/24 20:59 1 appln TID AMI Administration Ondansetron HCl 4 mg 11/18/24 16:23 11/21/24 22:31 Ondansetron Inj 2 Mg/Ml 2 Ml Vial IV 12/18/24 16:22 4 mg Q6H PRN Administration Nausea Polyethylene Glycol 17 gm 11/19/24 17:15 11/22/24 09:02 Polyethylene (Miralax) 17 Gm Pack PO 12/19/24 17:14 17 gm DAILY AMI Administration Torsemide 40 mg 11/19/24 09:00 11/22/24 08:57 Torsemide 20 Mg Tab PO 12/19/24 08:59 40 mg DAILY AMI Administration Vibegron 75 mg 11/19/24 09:00 11/22/24 08:56 Vibegron 75 Mg Tab PO 12/19/24 08:59 75 mg QAM AMI Administration Vitamin D 50 mcg 11/19/24 09:00 11/22/24 08:56 Cholecalciferol 25 Mcg (1000 Units) Tab PO 12/19/24 08:59 50 mcg QAM AMI Administration PG Care Time/CCT Total # of Minutes Spent Total Time Spent with Patient: Total time spent is greater than 50% in coordination of care (as documented) at patient's floor/unit and/or counseling patient: Coding Level of Care Code 41859 SUB INP/OBS CARE 3/50MIN Diagnoses Symptomatic anemia D64.9 Presence of Watchman left atrial appendage closure device Z95.818 Diastolic congestive heart failure I50.30 Paroxysmal atrial fibrillation I48.0 Dyslipidemia E78.5 Hypertension I10
[2024-11-22] MEDS: IRON SUCROSE 300 MG in SODIUM CHLORIDE 0.9% 250 ML IV ONE (09:43)
--- NOTE | 2024-11-22 16:41 | Hospitalist Progress Note ---
Date of Service November 22, 2024 Assessment & Plan (1) Anemia: (2) Dizziness: (3) GI bleed: (4) Presence of Watchman left atrial appendage closure device: (5) Diabetes mellitus, type 2: (6) Hypertension: (7) Hyperlipidemia: (8) Paroxysmal atrial fibrillation: Plan This is a 69 year old F with PMH of insulin-dependent DM Type II, dyslipidemia, hypothyroidism, diastolic heart failure, paroxysmal AFib, HTN, CKD Stage III, depression and other medical problems listed below who presents with dizziness and anemia concerning for GI bleed. Symptomatic anemia Concern for GI bleed Outpatient hgb from from 7.9 to 6.8 in past few days on outpatient labwork FOBT + in ED, endorsing exertional N/V and dark stools for past 2 weeks Remains on DAPT from Watchman device implantation in August - due for JUD - consulted cardiology for recs regarding continuation of DAPT, possibility of in- patient JUD Given exertional symptoms, consented in ED and now transfusing 1u prbc now with missed AM torsemide dose Monitor H&H, continue IV Protonix BID, Has been feeling much better following blood transfusion No evidence of acute blood loss except FOBT has been positive Her anticoagulation is on hold for EGD on 11/23/2024 Remains stable with hemoglobin of 8.5 and BUN and creatinine are slightly improved No more obvious GI bleed and she is waiting for endoscopy on Friday No more bleed and hemoglobin remains stable at 8.0 and denies any cardiac symptoms Hemoglobin is stable at 7.9 without any symptoms and awaiting EGD Iron deficiency anemia Complicated by blood loss Iron studies as an outpatient showed low iron of 15 TIBC 375, and transferrin saturation very low at 4% We did not give any iron infusion as she got blood transfusion already Will repeat iron studies after a few days before giving iron transfusion Has constipation will give MiraLAX-not restarting iron as of now Iron level remains low with TIBC on the upper side Will give 1 dose of iron sucrose 300 mg. HFpEF Appears compensated, admitting CXR without acute abnormalities Gave missed AM torsemide dose with transfusion, monitor volume status closely Cards consulted as above Appreciate cardiology input and recommendations No signs and or symptoms of fluid overload Paroxysmal Afib s/p Watchman procedure Continue home amiodarone HS for rate control On DAPT as above for Watchman device (history of bleed with Eliquis in past) - appreciate cards recs Telemetry, Mag/Phos with AM labs Will hold aspirin Plavix for possible EGD on 23 November Heart rate is controlled with current medications DM II A1c 6.1 in September 2024 SSI while in-patient Glycemic consult placed BSG AC HS CKD III Cr 1.66 today. Baseline Cr ~ mid-high 1s. Continue to monitor CATHERINE CPAP HS Hyperlipidemia Continue home statin Ambulatory dysfunction Patient unsteady given above - fall precautions, PT/OT evals DVT Ppx: SCDs for now Code status: FULL PCP: Flo Dispo: Admitted to PCU Admission and Anticipated Discharge Date Admission Date: November 18, 2024 Subjective 11/19/2024 The patient was seen and examined in telemetry unit She is status post 1 unit of blood transfusion and has been feeling a lot better Denies any chest pain, palpitation or shortness of breath 11/20/2024 The patient was seen and examined in telemetry unit She has been stable and denies any symptoms Denies any more bleeding No chest pain, shortness of breath or palpitation 11/21/2024 The patient was seen and examined in telemetry unit She has been stable and does not have any more GI bleed Her hemoglobin 8.0 today does not have any cardiac symptoms 11/22/2024 The patient was seen and examined in telemetry unit She has been stable and denies any significant symptoms Her hemoglobin remains stable at 7.9 Will have EGD tomorrow Review of Systems Review of Systems: All systems reviewed and are unremarkable except as noted below Physical Exam Physical Exam: Lying in bed without any acute distress Constitutional: well developed, well nourished, + ill appearing and + obese Eyes: PERRL, conjunctivae normal, anicteric sclerae ENMT: external ear and nose normal, oropharynx normal Neck: trachea midline, no thyromegaly Respiratory: no respiratory distress Auscultation: lungs clear to auscultation bilaterally Cardiovascular: Rate/Rhythm: regular rate and regular rhythm; not tachycardic Heart Sounds: normal S1, normal S2 and + murmur Extremities: + edema Gastrointestinal (Abdomen): Inspection/Auscultation: normal bowel sounds; abdomen not distended Percussion/Palpation: abdomen soft; abdomen nontender Neurologic: normal touch/pain/proprioception and moves all extremities; no focal motor deficits Lymphatic: no cervical or axillary lymphadenopathy Results & Data Results & Data Vital Signs (Past 12 Hours) Vital Signs Temp Pulse Pulse Resp BP Pulse Ox O2 Del Method 11/22/24 15:21 36.3 C L 62 17 112/68 94 Room Air 11/22/24 14:27 62 11/22/24 12:43 36.4 C L 62 17 134/79 96 Room Air 11/22/24 08:42 Room Air 11/22/24 08:11 36.5 C 82 17 105/72 96 Room Air Laboratory Results Short CBC 11/22/24 Range/Units 05:40 WBC 8.80 (4.8-10.8) K/ul Hgb 7.9 L (12.0-16.0) g/dl Hct 24.7 L (37.0-47.0) % Plt Count 272 (130-400) K/uL BMP 11/22/24 05:40 Sodium 137 Potassium 4.4 Chloride 100 Carbon Dioxide 32 BUN 48 H Creatinine 2.14 H D Glucose 155 H Calcium 8.7 Medications Administered Current Inpatient Medications Acetaminophen (Acetaminophen 325 Mg Tab) 650 mg PO Q4H PRN PRN Reason: Pain or Fever Stop: 12/18/24 16:22 Last Admin: 11/21/24 03:40 Dose: 650 mg Albuterol (Albuterol Hfa 8 Gm Inhaler) 2 puffs INH Q4 PRN PRN Reason: cough/sob Stop: 12/18/24 16:59 Amiodarone HCl (Amiodarone 200 Mg Tab) 200 mg PO QPM [facility] Stop: 12/18/24 20:59 Last Admin: 11/21/24 20:32 Dose: 200 mg Aspirin (Aspirin 81 Mg Ectab) 81 mg PO DAILY AMI Stop: 12/18/24 17:59 Last Admin: 11/18/24 18:18 Dose: Not Given Atorvastatin Calcium (Atorvastatin 20 Mg Tab) 20 mg PO QAM [facility] Stop: 12/19/24 08:59 Last Admin: 11/22/24 08:57 Dose: 20 mg Benzonatate (Benzonatate 100 Mg Capsule) 100 mg PO TID PRN PRN Reason: Cough Stop: 12/18/24 16:59 Bupropion HCl (Bupropion Sr 150 Mg Tabcr) 150 mg PO QAM [facility] Stop: 12/19/24 08:59 Last Admin: 11/22/24 08:57 Dose: 150 mg Bupropion HCl (Bupropion Sr 100 Mg Tabcr) 100 mg PO QAM AMI Stop: 12/19/24 08:59 Last Admin: 11/22/24 08:57 Dose: 100 mg Clopidogrel Bisulfate (Clopidogrel Bisulfate 75 Mg Tab) 75 mg PO DAILY AMI Stop: 12/18/24 17:59 Last Admin: 11/18/24 18:18 Dose: Not Given Cyanocobalamin (Cyanocobalamin (B-12) 500 Mcg Tablet) 1,000 mcg PO QAM AMI Stop: 12/19/24 08:59 Last Admin: 11/22/24 08:57 Dose: 1,000 mcg Dextrose (Dextrose 50% 50 Ml Syringe) 25 - 50 ml IV UD PRN; Protocol PRN Reason: Hypoglycemia Protocol Stop: 12/18/24 15:59 Fluoxetine HCl (Fluoxetine Hcl 20 Mg Cap) 60 mg PO QPM AMI Stop: 12/18/24 20:59 Last Admin: 11/21/24 20:33 Dose: 60 mg Fluticasone/Vilanterol (Fluticasone/Vilanterol 100/25mcg 14 Puffs/Inhaler) 1 puffs INH QPM PRN PRN Reason: Coughing Stop: 12/18/24 16:59 Glucagon (Glucagon For Inj 1 Mg Vial) 1 mg SQ UD PRN; Protocol PRN Reason: Hypoglycemia Protocol Stop: 12/18/24 15:59 Glucose (Glucose 40% Gel 15 Gm Tube) 15 - 30 gm PO UD PRN; Protocol PRN Reason: Hypoglycemia Protocol Stop: 12/18/24 15:59 Glucose (Glucose 10 Tab/Tube) 4 - 8 tab PO UD PRN; Protocol PRN Reason: Hypoglycemia Protocol Stop: 12/18/24 15:59 Pantoprazole Sodium (Protonix) 40 mg in 10 mls @ 5 mls/min IV BID AMI Stop: 12/18/24 20:59 Last Admin: 11/22/24 08:57 Dose: 5 mls/min Insulin Aspart (Insulin Aspart Per Unit Charge) 0 units SC ACHS AMI Stop: 12/18/24 16:29 Last Admin: 11/22/24 12:32 Dose: 3 units Insulin Glargine (Lantus Per Unit Charge) 9 units SC HS AMI Stop: 12/21/24 20:59 Last Admin: 11/21/24 20:40 Dose: 9 units Lactobacillus Acidophilus (Advanced Probiotic 625 Mg Capsule) 625 mg PO DAILY AMI Stop: 12/19/24 08:59 Last Admin: 11/22/24 08:57 Dose: 625 mg Levothyroxine Sodium (Levothyroxine Sodium 50 Mcg Tablet) 50 mcg PO DAILYBB AMI Stop: 12/19/24 06:29 Last Admin: 11/22/24 05:44 Dose: 50 mcg Melatonin (Melatonin 3 Mg Tab) 3 mg PO HS PRN PRN Reason: Sleep Stop: 12/18/24 16:22 Miscellaneous (Carbohydrates For Hypoglycemia ) 15 - 30 gm PO UD PRN PRN Reason: Hypoglycemia Treatment Stop: 12/18/24 15:59 Miscellaneous Information (Pharmacy Glycemic Mgmt Consult) 1 each N/A UD PRN; Protocol PRN Reason: Consult Stop: 12/18/24 14:29 Multivitamins/Minerals (Cerovite Adv Formula Tab) 1 tab PO DAILY AMI Stop: 12/18/24 17:59 Last Admin: 11/22/24 08:56 Dose: 1 tab Nystatin (Nystatin Powder 15gm Btl) 1 appln EXT TID AMI Stop: 12/18/24 20:59 Last Admin: 11/22/24 14:14 Dose: 1 appln Ondansetron HCl (Ondansetron Inj 2 Mg/Ml 2 Ml Vial) 4 mg IV Q6H PRN PRN Reason: Nausea Stop: 12/18/24 16:22 Last Admin: 11/21/24 22:31 Dose: 4 mg Polyethylene Glycol (Polyethylene (Miralax) 17 Gm Pack) 17 gm PO DAILY AMI Stop: 12/19/24 17:14 Last Admin: 11/22/24 09:02 Dose: 17 gm Torsemide (Torsemide 20 Mg Tab) 40 mg PO DAILY AMI Stop: 12/19/24 08:59 Last Admin: 11/22/24 08:57 Dose: 40 mg Vibegron (Vibegron 75 Mg Tab) 75 mg PO QAM AMI Stop: 12/19/24 08:59 Last Admin: 11/22/24 08:56 Dose: 75 mg Vitamin D (Cholecalciferol 25 Mcg (1000 Units) Tab) 50 mcg PO QAM AMI Stop: 12/19/24 08:59 Last Admin: 11/22/24 08:56 Dose: 50 mcg (1) Anemia Anemia type: unspecified type Qualified Code(s): D64.9 - Anemia, unspecified (3) GI bleed GI bleed type/associated pathology: unspecified gastrointestinal hemorrhage type Qualified Code(s): K92.2 - Gastrointestinal hemorrhage, unspecified
[2024-11-23 06:17] LABS: Hematocrit (blood only) 25.8 % (37.0-47.0); Hemoglobin 8.0 g/dl (12.0-16.0); Immature Granulocytes # (auto) 0.05 K/uL (0.01-0.20); Immature Granulocytes % (auto) 0.5 %; Mean Corpuscular Hemoglobin 25.7 pg (25.0-34.0); Mean Corpuscular Volume 83.0 fL (80.0-100.0); Platelet Count 290 K/uL (130-400); RDW Standard Deviation 46.4 fL (36.4-46.3); Red Blood Count 3.11 M/uL (4.20-5.40); White Blood Count 9.88 K/ul (4.8-10.8)
[2024-11-23 06:39] LABS: Anion Gap 7.0 (3-11); Blood Urea Nitrogen 45.0 mg/dl (6-23); Calcium 8.9 mg/dl (8.6-10.3); Carbon Dioxide 31.0 mmol/L (21-32); Chloride 100.0 mmol/L (98-107); Creatinine Clr Calc Pharmacy 31.3 ml/min; Glucose 105.0 mg/dl (70-99(Fasting)); Magnesium 2.3 mg/dl (1.7-2.4); Potassium 3.8 mmol/L (3.5-5.1); Sodium 138.0 mmol/L (136-145)
[2024-11-23] MEDS: INSULIN ASPART PER UNIT CHARGE SC SCH ×2 (07:54→17:49)
--- NOTE | 2024-11-23 09:09 | Gastroenterology Progress Note ---
Date of Service November 23, 2024 Assessment & Plan (1) Symptomatic anemia: Plan: 69 year old female with history of insulin-dependent T2DM, dyslipidemia, hypothyroidism, diastolic heart failure, paroxysmal AFib, HTN, CKD3, depression, on DAPT from recent Watchman device and other below admitted w/ symptomatic anemia and report of dark stools - NPO for EGD evaluation today We appreciate assistance in the management of any serological abnormality and corrections to include: hemoglobin >7, INR <2, platelets >50,000, potassium levels >3.5 but <5.3, and sodium levels within 5 points of the reference range prior to endoscopic evaluation. Thank you for allowing us to participate in the care of this patient. Please call with any acute changes, questions or concerns. Please see addendum below with additional recommendation from my supervising physician. Admission and Anticipated Discharge Date Admission Date: November 18, 2024 Supervising Physician Co-Signing Physician Notes I saw and examined this patient with our nurse practitioner and agree with her assessment and plan. Will proceed with endoscopy. Subjective NPO for EGD evaluation. Offers no concerns this AM. No nausea/vomiting. No fever, chills, CP, SOB. Review of Systems Review of Systems: All other findings negative except as noted in HPI. Physical Exam Constitutional: WD/WN, vitals as above Respiratory: normal respiratory effort, lungs clear to auscultation Gastrointestinal (Abdomen): normal bowel sounds, soft, nontender, no hepatosplenomegaly Skin: no rashes, warm and dry Results & Data Results & Data Vital Signs (Past 12 Hours) Vital Signs Temp Pulse Pulse Resp BP Pulse Ox O2 Del Method 11/23/24 08:27 61 18 94/59 L 94 Room Air 11/23/24 03:28 97.5 F L 59 L 20 105/56 L 95 Room Air, CPAP 11/23/24 02:33 76 11/22/24 23:25 97.9 F 62 20 113/60 96 Room Air, CPAP Laboratory Results 11/23/24 11/22/24 11/22/24 Range/Units 05:17 20:22 16:55 WBC 9.88 (4.8-10.8) K/ul RBC 3.11 L (4.20-5.40) M/uL Hgb 8.0 L (12.0-16.0) g/dl Hct 25.8 L (37.0-47.0) % MCV 83.0 (80.0-100.0) fL MCH 25.7 (25.0-34.0) pg MCHC 31.0 L (32.0-36.0) g/dL RDW Std Deviation 46.4 H (36.4-46.3) fL RDW Coeff of Buck 15.3 H (11.5-14.5) % Plt Count 290 (130-400) K/uL MPV 10.6 (9.4-12.4) fL Immature Gran % (Auto) 0.5 % Neut % (Auto) 80.8 % Lymph % (Auto) 7.5 % Toombs % (Auto) 9.0 % Eos % (Auto) 1.6 % Baso % (Auto) 0.6 % Neut # (Auto) 7.98 H (1.40-6.50) K/uL Lymph # (Auto) 0.74 L (1.20-3.40) K/uL Toombs # (Auto) 0.89 H (0.11-0.59) K/uL Eos # (Auto) 0.16 (0.00-0.50) K/uL Baso # (Auto) 0.06 (0.00-0.20) K/uL Immature Gran # (Auto) 0.05 (0.01-0.20) K/uL Sodium 138 (136-145) mmol/L Potassium 3.8 (3.5-5.1) mmol/L Chloride 100 (98-107) mmol/L Carbon Dioxide 31 (21-32) mmol/L Anion Gap 7 (3-11) BUN 45 H (6-23) mg/dl Creatinine 1.89 H (0.6-1.2) mg/dl Est Cr Clr Drug Dosing 31.3 ml/min eGFR 28.06 BUN/Creatinine Ratio 23.8 H (10-20) Glucose 105 H (70-99(Fasting)) mg/dl POC Glucose 164 H 190 H (70-99) mg/dl Calcium 8.9 (8.6-10.3) mg/dl Magnesium 2.3 (1.7-2.4) mg/dl 11/22/24 Range/Units 12:06 WBC (4.8-10.8) K/ul RBC (4.20-5.40) M/uL Hgb (12.0-16.0) g/dl Hct (37.0-47.0) % MCV (80.0-100.0) fL MCH (25.0-34.0) pg MCHC (32.0-36.0) g/dL RDW Std Deviation (36.4-46.3) fL RDW Coeff of Buck (11.5-14.5) % Plt Count (130-400) K/uL MPV (9.4-12.4) fL Immature Gran % (Auto) % Neut % (Auto) % Lymph % (Auto) % Toombs % (Auto) % Eos % (Auto) % Baso % (Auto) % Neut # (Auto) (1.40-6.50) K/uL Lymph # (Auto) (1.20-3.40) K/uL Toombs # (Auto) (0.11-0.59) K/uL Eos # (Auto) (0.00-0.50) K/uL Baso # (Auto) (0.00-0.20) K/uL Immature Gran # (Auto) (0.01-0.20) K/uL Sodium (136-145) mmol/L Potassium (3.5-5.1) mmol/L Chloride (98-107) mmol/L Carbon Dioxide (21-32) mmol/L Anion Gap (3-11) BUN (6-23) mg/dl Creatinine (0.6-1.2) mg/dl Est Cr Clr Drug Dosing ml/min eGFR BUN/Creatinine Ratio (10-20) Glucose (70-99(Fasting)) mg/dl POC Glucose 165 H (70-99) mg/dl Calcium (8.6-10.3) mg/dl Magnesium (1.7-2.4) mg/dl PG Care Time/CCT Total # of Minutes Spent Total Time Spent with Patient: Total time spent is greater than 50% in coordination of care (as documented) at patient's floor/unit and/or counseling patient: Coding Level of Care Code None Diagnoses Symptomatic anemia D64.9
--- NOTE | 2024-11-23 14:49 | Pharmacy Report ---
Pharmacy Glycemic Short Note 2 - Date of Service November 23, 2024 - Glycemic Short BSG Results (Last 24 hours): 11/22/24 11/22/24 11/23/24 16:55 20:22 05:17 Glucose 105 H POC Glucose 190 H 164 H 11/23/24 11:48 Glucose POC Glucose 125 H OUTPATIENT ANTIDIABETIC REGIMEN: * Xultophy, lantus 3 units qPM, + Novolog SS * A1c 6.8% 09/21/24 ASSESSMENT: 11/23: * Lisa has not been requiring much insulin this admission. She received a total of 16 units of insulin yesterday (9 units were basal and 7 units were bolus). * Fasting BSG was 105mg/dL this morning. She is currently NPO for an EGD eval this afternoon. Since her blood glucose was below goal this morning and she will be NPO most of the day, the HS Lantus has been changed to a scale (0,5,or 9 units depending on BSG). * She is to continue with current bolus insulin regimen. 11/19: * Patient with type II diabetes admitted for GI Bleed. Initially NPO this morning, diet has been resumed * Fasting 139 mg/dL this morning with 8 units of lantus last PM. Will continue with this today. * Correction/Carb ratio initiated using weight based dosing (stress 2) PLAN FOR INPATIENT GLYCEMIC CONTROL: * Basal insulin * Lantus scale at HS (0, 5, or 9 units depending on BSG) * Bolus insulin * NovoLog per scale ACHS or Q6hrs while NPO * Goal Range: Low 120 mg/dL - High 160 mg/dL * Correction Factor: 30 mg/dL/unit * Nutritional / Prandial insulin per carb ratio of 1 unit per 9 grams CHO consumed
--- NOTE | 2024-11-23 15:00 | Anesthesiology Consultation ---
Date of Service November 23, 2024 Assessment & Plan Chart Review Chart Review: Acceptable Risk for Surgery and Patient NOT seen in Pre Admission Testing Consults Requested none ASA ASA3 Proposed Anesthesia Anesthesia Type: MAC Risk / Benefits Reviewed With: PT / POA / Parent / Guardian, Accepts Plan and Informed Consent Obtained History Surgery Operation Date: 11/23/24 16:30 Proposed Procedures p Esophagogastroduodenoscopy Dr. Ricardo Silva MD Height/Weight Height: 5 ft 2 in Weight: 106.6 kg Allergies Allergy/AdvReac Type Severity Reaction Status Date / Time lisinopril Allergy Intermediate Cough Unverified 09/20/24 15:22 penicillin G Allergy Intermediate HIVES Verified 09/20/24 15:22 codeine AdvReac Intermediate VOMITING Verified 09/20/24 15:22 hydrocodone AdvReac Intermediate Vomiting Verified 09/20/24 15:22 Medications Home Medications Medication Instructions Recorded Confirmed Last Taken atorvastatin 20 mg tablet 20 mg PO QAM #30 tabs 10/24/23 11/18/24 03/24/24 bupropion HCl 100 mg tablet,12 hr 100 mg PO QAM #30 ea 10/24/23 11/18/24 03/24/24 sustained-release bupropion HCl 150 mg tablet,12 hr 150 mg PO QAM #30 ea 10/24/23 11/18/24 03/24/24 sustained-release cyanocobalamin (vitamin B-12) 1,000 mcg PO QAM #30 tabs 10/24/23 11/18/24 03/24/24 1,000 mcg tablet mirabegron 50 mg tablet,extended 50 mg PO QAM #30 tabs 10/24/23 11/18/24 03/24/24 release 24 hr (Myrbetriq) albuterol sulfate 90 mcg/actuation 2 puff inhalation Q4 PRN cough/sob 03/26/24 11/18/24 Unknown aerosol inhaler amiodarone 200 mg tablet 200 mg PO QPM 03/26/24 11/18/24 03/24/24 benzonatate 100 mg capsule 100 mg PO TID PRN Cough 03/26/24 11/18/24 Unknown cholecalciferol (vitamin D3) 50 50 mcg PO QAM 03/26/24 11/18/24 03/24/24 mcg (2,000 unit) tablet (Vitamin D3) famotidine 20 mg tablet (Pepcid) 20 mg PO AMPM 03/26/24 11/18/24 03/24/24 fluoxetine 60 mg tablet 60 mg PO QPM 03/26/24 11/18/24 03/24/24 fluticasone 250 mcg-salmeterol 50 1 ea inhalation QPM PRN Coughing 03/26/24 11/18/24 03/24/24 mcg/dose blistr powdr for inhalation insulin aspart U-100 100 unit/mL 0 unit subcut WM 03/26/24 11/18/24 Unknown (3 mL) subcutaneous pen (Novolog FlexPen U-100 Insulin aspart) insulin degludec 100 18 unit subcut QPM 03/26/24 11/18/24 03/24/24 unit-liraglutide 3.6 mg/mL(3 mL) subcutaneous pen (Xultophy 100/3.6) insulin glargine 100 unit/mL 3 unit subcut PM 03/26/24 11/18/24 03/24/24 subcutaneous solution (Lantus U-100 Insulin) levothyroxine 50 mcg tablet 50 mcg PO DAILYBB 03/26/24 11/18/24 03/24/24 ondansetron HCl 4 mg tablet 4 mg PO Q6 PRN Nausea And Vomiting 03/26/24 11/18/24 03/25/24 polyethylene glycol 3350 17 gram 17 g PO DAILY PRN Constipation 03/26/24 11/18/24 Unknown oral powder packet (Miralax) docusate sodium 100 mg capsule 100 mg PO BID #60 caps 04/01/24 11/18/24 Unknown (Colace) aspirin 81 mg tablet,delayed 81 mg PO DAILY 09/20/24 11/18/24 Unknown release clopidogrel 75 mg tablet 75 mg DAILY 09/20/24 11/18/24 Unknown metolazone 10 mg tablet 2.5 mg PO DAILY PRN Weight Gain 09/20/24 11/18/24 Unknown torsemide 40 mg tablet 40 mg PO DAILY 09/20/24 11/18/24 Unknown vitamins A,C,C-hzwx-oqtvsj 4,296 1 cap PO BID 09/20/24 11/18/24 Unknown mcg-226 mg-90 mg capsule (PreserVision AREDS) L.acidop,casei,lactis,rham-B.lact,catarino 1 cap PO DAILY #7 caps 09/22/24 11/18/24 Unknown 625 mg (10 billion cell) capsule (Advanced Probiotic) nystatin 100,000 unit/gram topical 1 applic topical TID PRN Rash 11/18/24 11/18/24 Unknown powder Active Medications Generic Name Dose Route Start Last Admin Trade Name Freq PRN Reason Stop Dose Admin Acetaminophen 650 mg 11/18/24 16:23 11/23/24 03:09 Acetaminophen 325 Mg Tab PO 12/18/24 16:22 650 mg Q4H PRN Administration Pain or Fever Amiodarone HCl 200 mg 11/18/24 21:00 11/22/24 21:33 Amiodarone 200 Mg Tab PO 12/18/24 20:59 200 mg QPM AMI Administration Aspirin 81 mg 11/18/24 18:00 11/18/24 18:18 Aspirin 81 Mg Ectab PO 12/18/24 17:59 Not Given DAILY AMI Atorvastatin Calcium 20 mg 11/19/24 09:00 11/23/24 08:07 Atorvastatin 20 Mg Tab PO 12/19/24 08:59 20 mg QAM AMI Administration Bupropion HCl 150 mg 11/19/24 09:00 11/23/24 08:07 Bupropion Sr 150 Mg Tabcr PO 12/19/24 08:59 150 mg QAM AMI Administration Bupropion HCl 100 mg 11/19/24 09:00 11/23/24 08:07 Bupropion Sr 100 Mg Tabcr PO 12/19/24 08:59 100 mg QAM AMI Administration Clopidogrel Bisulfate 75 mg 11/18/24 18:00 11/18/24 18:18 Clopidogrel Bisulfate 75 Mg Tab PO 12/18/24 17:59 Not Given DAILY AMI Cyanocobalamin 1,000 mcg 11/19/24 09:00 11/23/24 08:07 Cyanocobalamin (B-12) 500 Mcg Tablet PO 12/19/24 08:59 Not Given QAM AMI Fluoxetine HCl 60 mg 11/18/24 21:00 11/22/24 21:33 Fluoxetine Hcl 20 Mg Cap PO 12/18/24 20:59 60 mg QPM AMI Administration Pantoprazole Sodium 40 mg in 10 mls @ 5 mls/min 11/18/24 21:00 11/23/24 08:03 Protonix IV 12/18/24 20:59 5 mls/min BID AMI Administration Insulin Aspart 0 units 11/23/24 08:00 11/23/24 12:06 Insulin Aspart Per Unit Charge SC 12/23/24 07:59 Not Given Q6 AMI Lactobacillus Acidophilus 625 mg 11/19/24 09:00 11/23/24 08:08 Advanced Probiotic 625 Mg Capsule PO 12/19/24 08:59 Not Given DAILY AMI Levothyroxine Sodium 50 mcg 11/19/24 06:30 11/23/24 05:33 Levothyroxine Sodium 50 Mcg Tablet PO 12/19/24 06:29 50 mcg DAILYBB AMI Administration Multivitamins/Minerals 1 tab 11/18/24 18:00 11/23/24 08:08 Cerovite Adv Formula Tab PO 12/18/24 17:59 Not Given DAILY AMI Nystatin 1 appln 11/18/24 21:00 11/23/24 13:09 Nystatin Powder 15gm Btl EXT 12/18/24 20:59 1 appln TID AMI Administration Ondansetron HCl 4 mg 11/18/24 16:23 11/21/24 22:31 Ondansetron Inj 2 Mg/Ml 2 Ml Vial IV 12/18/24 16:22 4 mg Q6H PRN Administration Nausea Polyethylene Glycol 17 gm 11/19/24 17:15 11/23/24 08:08 Polyethylene (Miralax) 17 Gm Pack PO 12/19/24 17:14 Not Given DAILY AMI Torsemide 40 mg 11/19/24 09:00 11/23/24 08:07 Torsemide 20 Mg Tab PO 12/19/24 08:59 40 mg DAILY AMI Administration Vibegron 75 mg 11/19/24 09:00 11/23/24 08:07 Vibegron 75 Mg Tab PO 12/19/24 08:59 75 mg QAM AMI Administration Vitamin D 50 mcg 11/19/24 09:00 11/23/24 08:07 Cholecalciferol 25 Mcg (1000 Units) Tab PO 12/19/24 08:59 Not Given QAM AMI NPO Date Last Intake of Fluids: 11/23/24 Time Last Intake of Fluids: 12:10 Date Last Intake of Solids: 11/22/24 Time Last Intake of Solids: 17:30 Past Medical History Medical History Anemia Chronic cough 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, 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 Hypothyroidism Myasthenia gravis "EFFECTS ONLY MY VOCAL CORDS" Arthritis Stress incontinence in female GERD (gastroesophageal reflux disease) Hx of cancer of endometrium Idiopathic hypersomnia ADHD Peripheral neuropathy Hx of migraines Irregular heart beats NO CARDS Hx of sleep apnea NO DEVICE Chronic obstructive pulmonary disease H/O Past Family History Family History Other No family history of adverse response to anesthesia Past Surgical History Surgical History History of surgery lymph node removed from forehead (benign) Hx of cataract extraction right/left History of esophagogastroduodenoscopy (EGD) H/O colonoscopy with polypectomy H/O total hysterectomy History of tooth extraction Nausea and vomiting after administration of anesthetic agent Social History Smoking Status: Former smoker tobacco type: cigarettes Do You Dip or Chew Tobacco: No Hx Alcohol Use: Yes Alcohol type: wine alcohol intake frequency: 0-2 drinks per day Hx Substance Use: No substance use type: does not use Review of Systems ROS Unobtainable: All systems reviewed & are unremarkable except as noted in HPI & below Physical Exam Vital Signs Last Vital Signs Temp 36.3 C L 11/23/24 14:13 Pulse 61 11/23/24 14:13 Resp 16 11/23/24 14:13 BP 124/50 L 11/23/24 14:13 Pulse Ox 94 11/23/24 14:13 O2 Del Method Room Air 11/23/24 14:13 FiO2 21 11/19/24 23:25 Constitutional + morbidly obese; no acute distress ENMT Mouth: + dentition abnormality (missing teeth), + dental caries and + chipped teeth; no TMJ abnormality Thyromental Distance: < 3.5 Finger Breadths Mallampati Class: II Neck normal visual inspection Respiratory normal respiratory effort; no respiratory distress Auscultation: + diminished lung sounds Cardiovascular Rate/Rhythm: regular rate (PVCs?) Musculoskeletal Spine: normal cervical ROM Neurologic moves all extremities Psychiatric Orientation: alert and oriented x 3 Testing Laboratory Results 11/23/24 05:17 11/23/24 05:17 PT 10.6 Seconds (9.0-12.0) 11/18/24 10:17 INR 1.0 (0.9-1.1) 11/18/24 10:17 APTT 21 Seconds (21-31) 11/18/24 10:17 Blood Type A Positive 11/18/24 10:17 Antibody Screen NEGATIVE 11/18/24 10:17 11/23/24 11:48 POC Glucose 125 H
[2024-11-23] MEDS ORDERED: Nursing to Pharmacy Communication SCH (16:00)
--- NOTE | 2024-11-23 16:02 | Cardiology Progress Note ---
Date of Service November 23, 2024 Assessment & Plan (1) Symptomatic anemia: (2) Presence of Watchman left atrial appendage closure device: (3) Diastolic congestive heart failure: (4) Paroxysmal atrial fibrillation: (5) Dyslipidemia: (6) Hypertension: Plan 69 year old female patient admitted to [facility] on 11/18/2024 with symptomatic anemia, hemoglobin 7.3 g/dL and + FOBT. History not overtly suggestive of active GI bleeding. Patient prescribed dual antiplatelet therapy with aspirin 81 mg/day and clopidogrel 75 mg/day, post September 16, 2024 left atrial appendage occlusion (# 24 mm Watchman) at [facility]. EGD today. Dual antiplatelet therapy recommended for minimum 45 days post Watchman device implantation, however, dual antiplatelet therapy is typically continued until post-watchman JUD confirms absence of device related thrombus and/or significant niyah-device leak.. Restart aspirin and clopidogrel when cleared by gastroenterology. Patient is scheduled for transesophageal echocardiogram at [facility] 12/10/24. Shaw Hickey DO, [facility] Admission and Anticipated Discharge Date Admission Date: November 18, 2024 Subjective 69-year-old female seen and examined at the bedside. Denies signs/symptoms of GI/ blood loss. Aspirin and clopidogrel placed on hold. EGD scheduled this afternoon. Telemetry reveals sinus rhythm in the 70s. Patient received 1 unit of packed red blood cells during hospitalization. Review of Systems Review of Systems: All systems reviewed & are unremarkable except as noted in Subjective Physical Exam Constitutional: well developed, well nourished and + obese Respiratory: no respiratory distress, no labored breathing and no retractions Auscultation: no crackles, no rales, no rhonchi and no wheezes Cardiovascular: Rate/Rhythm: regular rate and regular rhythm Heart Sounds: normal S1 and normal S2; no murmur Extremities: + edema (Trace to mild bilateral pedal edema.) Gastrointestinal (Abdomen): Inspection/Auscultation: abdomen normal to inspection; abdomen not distended Neurologic: CN's II-XI intact bilaterally and moves all extremities; no focal motor deficits Results & Data Vital Signs (Past 12 Hours) Vital Signs Temp Pulse Pulse Resp BP Pulse Ox O2 Del Method 11/23/24 15:48 64 18 114/48 L 95 Room Air 11/23/24 15:31 63 18 107/44 L 95 Room Air 11/23/24 15:16 62 16 97/41 L 95 Room Air 11/23/24 14:13 36.3 C L 61 16 124/50 L 94 Room Air 11/23/24 14:05 61 11/23/24 11:27 36.5 C 62 17 109/68 96 Room Air 11/23/24 09:00 59 L 11/23/24 09:00 Room Air 11/23/24 08:27 61 18 94/59 L 94 Room Air Laboratory Results CBC 11/23/24 Range/Units 05:17 WBC 9.88 (4.8-10.8) K/ul RBC 3.11 L (4.20-5.40) M/uL Hgb 8.0 L (12.0-16.0) g/dl Hct 25.8 L (37.0-47.0) % Plt Count 290 (130-400) K/uL Neut # (Auto) 7.98 H (1.40-6.50) K/uL Lymph # (Auto) 0.74 L (1.20-3.40) K/uL [place] # (Auto) 0.89 H (0.11-0.59) K/uL Eos # (Auto) 0.16 (0.00-0.50) K/uL Baso # (Auto) 0.06 (0.00-0.20) K/uL Comprehensive Metabolic Panel 11/23/24 Range/Units 05:17 Sodium 138 (136-145) mmol/L Potassium 3.8 (3.5-5.1) mmol/L Chloride 100 (98-107) mmol/L Carbon Dioxide 31 (21-32) mmol/L BUN 45 H (6-23) mg/dl Creatinine 1.89 H (0.6-1.2) mg/dl Glucose 105 H (70-99(Fasting)) mg/dl Calcium 8.9 (8.6-10.3) mg/dl Intake and Output 11/23/24 11/23/24 11/23/24 06:59 14:59 22:59 Intake Total 125 / 1040 Output Total 400 / 1101 350 / 350 Balance -275 / -61 -350 / -350 Intake: Oral 125 / 775 Output: Urine Amount (Catheter) 400 / 1100 350 / 350 External 400 / 1100 350 / 350 Other: Weight 106.6 kg 106.6 kg Weight Measurement Method Built in [facility] Patient Weight 11/24/24 06:59 Weight 106.6 kg PG Care Time/CCT Total # of Minutes Spent Total Time Spent with Patient: Total time spent is greater than 50% in coordination of care (as documented) at patient's floor/unit and/or counseling patient: Coding Level of Care Code 02554 SUB INP/OBS CARE 3/50MIN Diagnoses Symptomatic anemia D64.9 Presence of Watchman left atrial appendage closure device Z95.818 Diastolic congestive heart failure I50.30 Paroxysmal atrial fibrillation I48.0 Dyslipidemia E78.5 Hypertension I10
[2024-11-23] MEDS: LIDOCAINE 2% 2 ML VIAL/AMP(20MG/ML) INFIL ONE (16:06)
[2024-11-23] MEDS: PROPOFOL IV EMULSION 10 MG/ML 20 ML VIAL IV ONE (16:07)
[2024-11-23] MEDS: ONDANSETRON INJ 2 MG/ML 2 ML VIAL ONE (16:07)
[2024-11-23] MEDS: GLYCOPYRROLATE 0.2 MG/ML VIAL ONE (16:07)
--- NOTE | 2024-11-23 16:42 | GI REPORT ---
[facility] Patient: TORO BRADEN : 1955 Sex at : Female Age: 69 Years Procedure: Upper GI endoscopy Date: 11/23/2024 Attending Physician: Rohit Silva MD Referring MD: Fabricio Patel Indications: - Suspected upper gastrointestinal bleeding Medications: - Monitored Anesthesia Care Complications: - No immediate complications. Procedure: - Prior to the procedure, a History and Physical was performed, and patient medications and allergies were reviewed. The patient's tolerance of previous anesthesia was also reviewed. The risks and benefits of the procedure and the sedation options and risks were discussed with the patient. All questions were answered, and informed consent was obtained. [Anticoagulant Agents] [Days Prior to Procedure]. [ASA Grade]. After reviewing the risks and benefits, the patient was deemed in satisfactory condition to undergo the procedure. - The EGD scope was introduced through the mouth and advanced to the second part of the duodenum. - The upper GI endoscopy was accomplished without difficulty. - The patient tolerated the procedure well. Findings: - The examined esophagus was normal. - The entire examined stomach was normal. - The examined duodenum was normal. Impression: - Normal esophagus. - Normal stomach. - Normal examined duodenum. - No specimens collected. Recommendation: - Resume previous diet. - Patient has a contact number available for emergencies. The signs and symptoms of potential delayed complications were discussed with the patient. Return to normal activities tomorrow. Written discharge instructions were provided to the patient. Procedure Code(s): - 60490, Esophagogastroduodenoscopy, flexible, transoral; diagnostic, including collection of specimen(s) by brushing or washing, when performed (separate procedure) CPT(R) - 2023 copyright [employer]. All Rights Reserved. The CPT codes, CCI edits and ICD codes generated are intended as suggestions and were generated based on input data. These codes are preliminary and upon service manager review may be revised to meet current compliance and payer requirements. The provider is responsible for the final determination of appropriate codes, and modifiers. Rohit Silva MD This document has been electronically signed. Note Initiated:11/23/2024 Note Completed:11/23/2024 4:41 PM [id number]
--- NOTE | 2024-11-23 17:05 | Anesthesiology Progress Note ---
Date of Service November 23, 2024 Anesthesia Post Procedure Vital Signs Vital Signs: Temp Pulse Pulse Resp BP Pulse Ox O2 Del Method 11/23/24 15:48 64 18 114/48 L 95 Room Air 11/23/24 15:31 63 18 107/44 L 95 Room Air 11/23/24 15:16 62 16 97/41 L 95 Room Air 11/23/24 14:13 97.3 F L 61 16 124/50 L 94 Room Air 11/23/24 14:05 61 11/23/24 11:27 97.7 F 62 17 109/68 96 Room Air 11/23/24 09:00 59 L 11/23/24 09:00 Room Air 11/23/24 08:27 61 18 94/59 L 94 Room Air 11/23/24 03:28 97.5 F L 59 L 20 105/56 L 95 Room Air, CPAP 11/23/24 02:33 76 11/22/24 23:25 97.9 F 62 20 113/60 96 Room Air, CPAP 11/22/24 19:53 Room Air 11/22/24 19:46 97.3 F L 69 20 107/67 96 Room Air Transfer of Care Handoff Completed per policy Notes Mental Status: alert / awake / arousable and participated in evaluation Patient Amnestic to Procedure: Yes Nausea / Vomiting: adequately controlled Pain: adequately controlled Airway Patency, RR, SpO2: stable & adequate BP & HR: stable & adequate Hydration State: stable & adequate Anesthetic Complications: no major complications apparent and Pt Satisfied with anesthetic care
--- NOTE | 2024-11-23 17:27 | Hospitalist Progress Note ---
Date of Service November 23, 2024 Assessment & Plan (1) Anemia: (2) Dizziness: (3) GI bleed: (4) Presence of Watchman left atrial appendage closure device: (5) Diabetes mellitus, type 2: (6) Hypertension: (7) Hyperlipidemia: (8) Paroxysmal atrial fibrillation: Plan This is a 69 year old F with PMH of insulin-dependent DM Type II, dyslipidemia, hypothyroidism, diastolic heart failure, paroxysmal AFib, HTN, CKD Stage III, depression and other medical problems listed below who presents with dizziness and anemia concerning for GI bleed. Symptomatic anemia Concern for GI bleed Outpatient hgb from from 7.9 to 6.8 in past few days on outpatient labwork FOBT + in ED, endorsing exertional N/V and dark stools for past 2 weeks Remains on DAPT from Watchman device implantation in August - due for JUD - consulted cardiology for recs regarding continuation of DAPT, possibility of in- patient JUD Given exertional symptoms, consented in ED and now transfusing 1u prbc now with missed AM torsemide dose Monitor H&H, continue IV Protonix BID, Has been feeling much better following blood transfusion No evidence of acute blood loss except FOBT has been positive Her anticoagulation is on hold for EGD on 11/23/2024 Remains stable with hemoglobin of 8.5 and BUN and creatinine are slightly improved No more obvious GI bleed and she is waiting for endoscopy on Friday No more bleed and hemoglobin remains stable at 8.0 and denies any cardiac symptoms Hemoglobin is stable at 7.9 without any symptoms and awaiting EGD Hemoglobin remains stable at 8.0 as of 12-16 Status post EGD which was without any ulcers and not bleeding Will restart her antiplatelets after discussing with the GI Iron deficiency anemia Complicated by blood loss Iron studies as an outpatient showed low iron of 15 TIBC 375, and transferrin saturation very low at 4% We did not give any iron infusion as she got blood transfusion already Will repeat iron studies after a few days before giving iron transfusion Has constipation will give MiraLAX-not restarting iron as of now Iron level remains low with TIBC on the upper side Will give 1 dose of iron sucrose 300 mg. She cannot tolerate oral iron and will give another dose of iron sucrose today HFpEF Appears compensated, admitting CXR without acute abnormalities Gave missed AM torsemide dose with transfusion, monitor volume status closely Cards consulted as above Appreciate cardiology input and recommendations No signs and or symptoms of fluid overload Paroxysmal Afib s/p Watchman procedure Continue home amiodarone HS for rate control On DAPT as above for Watchman device (history of bleed with Eliquis in past) - appreciate cards recs Telemetry, Mag/Phos with AM labs Will hold aspirin Plavix for possible EGD on 23 November Heart rate is controlled with current medications DM II A1c 6.1 in September 2024 SSI while in-patient Glycemic consult placed BSG AC HS CKD III Cr 1.66 today. Baseline Cr ~ mid-high 1s. Continue to monitor CATHERINE CPAP HS Hyperlipidemia Continue home statin Ambulatory dysfunction Patient unsteady given above - fall precautions, PT/OT evals DVT Ppx: SCDs for now - will restart antiplatelets after discussion with the GI Code status: FULL PCP: Flo Dispo: Admitted to PCU Admission and Anticipated Discharge Date Admission Date: November 18, 2024 Subjective 11/19/2024 The patient was seen and examined in telemetry unit She is status post 1 unit of blood transfusion and has been feeling a lot better Denies any chest pain, palpitation or shortness of breath 11/20/2024 The patient was seen and examined in telemetry unit She has been stable and denies any symptoms Denies any more bleeding No chest pain, shortness of breath or palpitation 11/21/2024 The patient was seen and examined in telemetry unit She has been stable and does not have any more GI bleed Her hemoglobin 8.0 today does not have any cardiac symptoms 11/22/2024 The patient was seen and examined in telemetry unit She has been stable and denies any significant symptoms Her hemoglobin remains stable at 7.9 Will have EGD tomorrow 11/23/2024 The patient was seen and examined in the telemetry unit She remains stable without any significant symptoms She will have EGD this afternoon Review of Systems Review of Systems: All systems reviewed and are unremarkable except as noted below Physical Exam Physical Exam: Lying in bed without any acute distress Constitutional: well developed, well nourished, + ill appearing and + obese Eyes: PERRL, conjunctivae normal, anicteric sclerae ENMT: external ear and nose normal, oropharynx normal Neck: trachea midline, no thyromegaly Respiratory: no respiratory distress Auscultation: lungs clear to auscultation bilaterally Cardiovascular: Rate/Rhythm: regular rate and regular rhythm; not tachycardic Heart Sounds: normal S1, normal S2 and + murmur Extremities: + edema Gastrointestinal (Abdomen): Inspection/Auscultation: normal bowel sounds; abdomen not distended Percussion/Palpation: abdomen soft; abdomen nontender Musculoskeletal: No acute arthritis involving any of the joint Neurologic: normal touch/pain/proprioception and moves all extremities; no focal motor deficits Lymphatic: no cervical or axillary lymphadenopathy Results & Data Results & Data Vital Signs (Past 12 Hours) Vital Signs Temp Pulse Pulse Resp BP Pulse Ox O2 Del Method 11/23/24 15:48 64 18 114/48 L 95 Room Air 11/23/24 15:31 63 18 107/44 L 95 Room Air 11/23/24 15:16 62 16 97/41 L 95 Room Air 11/23/24 14:13 36.3 C L 61 16 124/50 L 94 Room Air 11/23/24 14:05 61 11/23/24 11:27 36.5 C 62 17 109/68 96 Room Air 11/23/24 09:00 59 L 11/23/24 09:00 Room Air 11/23/24 08:27 61 18 94/59 L 94 Room Air Laboratory Results Short CBC 11/23/24 Range/Units 05:17 WBC 9.88 (4.8-10.8) K/ul Hgb 8.0 L (12.0-16.0) g/dl Hct 25.8 L (37.0-47.0) % Plt Count 290 (130-400) K/uL BMP 11/23/24 05:17 Sodium 138 Potassium 3.8 Chloride 100 Carbon Dioxide 31 BUN 45 H Creatinine 1.89 H Glucose 105 H Calcium 8.9 Medications Administered Current Inpatient Medications Acetaminophen (Acetaminophen 325 Mg Tab) 650 mg PO Q4H PRN PRN Reason: Pain or Fever Stop: 12/18/24 16:22 Last Admin: 11/23/24 03:09 Dose: 650 mg Albuterol (Albuterol Hfa 8 Gm Inhaler) 2 puffs INH Q4 PRN PRN Reason: cough/sob Stop: 12/18/24 16:59 Amiodarone HCl (Amiodarone 200 Mg Tab) 200 mg PO QPM AMI Stop: 12/18/24 20:59 Last Admin: 11/22/24 21:33 Dose: 200 mg Aspirin (Aspirin 81 Mg Ectab) 81 mg PO DAILY [facility] Stop: 12/18/24 17:59 Last Admin: 11/18/24 18:18 Dose: Not Given Atorvastatin Calcium (Atorvastatin 20 Mg Tab) 20 mg PO QAM [facility] Stop: 12/19/24 08:59 Last Admin: 11/23/24 08:07 Dose: 20 mg Benzonatate (Benzonatate 100 Mg Capsule) 100 mg PO TID PRN PRN Reason: Cough Stop: 12/18/24 16:59 Bupropion HCl (Bupropion Sr 150 Mg Tabcr) [facility] Stop: 12/19/24 08:59 Last Admin: 11/23/24 08:07 Dose: 150 mg Bupropion HCl (Bupropion Sr 100 Mg Tabcr) 100 mg PO QAM [facility] Stop: 12/19/24 08:59 Last Admin: 11/23/24 08:07 Dose: 100 mg Clopidogrel Bisulfate (Clopidogrel Bisulfate 75 Mg Tab) 75 mg PO DAILY [facility] Stop: 12/18/24 17:59 Last Admin: 11/18/24 18:18 Dose: Not Given Cyanocobalamin (Cyanocobalamin (B-12) 500 Mcg Tablet) 1,000 mcg PO QAM [facility] Stop: 12/19/24 08:59 Last Admin: 11/23/24 08:07 Dose: Not Given Dextrose (Dextrose 50% 50 Ml Syringe) 25 - 50 ml IV UD PRN; Protocol PRN Reason: Hypoglycemia Protocol Stop: 12/18/24 15:59 Docusate Sodium (Docusate Sodium 100 Mg Cap) 100 mg PO BID [facility] Stop: 12/23/24 20:59 Fluoxetine HCl (Fluoxetine Hcl 20 Mg Cap) 60 mg PO QPM AMI Stop: 12/18/24 20:59 Last Admin: 11/22/24 21:33 Dose: 60 mg Fluticasone/Vilanterol (Fluticasone/Vilanterol 100/25mcg 14 Puffs/Inhaler) 1 puffs INH QPM PRN PRN Reason: Coughing Stop: 12/18/24 16:59 Glucagon (Glucagon For Inj 1 Mg Vial) 1 mg SQ UD PRN; Protocol PRN Reason: Hypoglycemia Protocol Stop: 12/18/24 15:59 Glucose (Glucose 40% Gel 15 Gm Tube) 15 - 30 gm PO UD PRN; Protocol PRN Reason: Hypoglycemia Protocol Stop: 12/18/24 15:59 Glucose (Glucose 10 Tab/Tube) 4 - 8 tab PO UD PRN; Protocol PRN Reason: Hypoglycemia Protocol Stop: 12/18/24 15:59 Pantoprazole Sodium (Protonix) 40 mg in 10 mls @ 5 mls/min IV BID AMI Stop: 12/18/24 20:59 Last Admin: 11/23/24 08:03 Dose: 5 mls/min Insulin Aspart (Insulin Aspart Per Unit Charge) 0 units SC ACHS AMI Stop: 12/23/24 07:59 Insulin Glargine (Lantus Per Unit Charge) 0 units SC HS AMI; Protocol Stop: 12/23/24 20:59 Lactobacillus Acidophilus (Advanced Probiotic 625 Mg Capsule) 625 mg PO DAILY AMI Stop: 12/19/24 08:59 Last Admin: 11/23/24 08:08 Dose: Not Given Levothyroxine Sodium (Levothyroxine Sodium 50 Mcg Tablet) 50 mcg PO DAILYBB AMI Stop: 12/19/24 06:29 Last Admin: 11/23/24 05:33 Dose: 50 mcg Melatonin (Melatonin 3 Mg Tab) 3 mg PO HS PRN PRN Reason: Sleep Stop: 12/18/24 16:22 Miscellaneous (Carbohydrates For Hypoglycemia ) 15 - 30 gm PO UD PRN PRN Reason: Hypoglycemia Treatment Stop: 12/18/24 15:59 Miscellaneous Information (Pharmacy Glycemic Mgmt Consult) 1 each N/A UD PRN; Protocol PRN Reason: Consult Stop: 12/18/24 14:29 Multivitamins/Minerals (Cerovite Adv Formula Tab) 1 tab PO DAILY AMI Stop: 12/18/24 17:59 Last Admin: 11/23/24 08:08 Dose: Not Given Nystatin (Nystatin Powder 15gm Btl) 1 appln EXT TID [facility] Stop: 12/18/24 20:59 Last Admin: 11/23/24 13:09 Dose: 1 appln Ondansetron HCl (Ondansetron Inj 2 Mg/Ml 2 Ml Vial) 4 mg IV Q6H PRN PRN Reason: Nausea Stop: 12/18/24 16:22 Last Admin: 11/21/24 22:31 Dose: 4 mg Polyethylene Glycol (Polyethylene (Miralax) 17 Gm Pack) 17 gm PO DAILY [facility] Stop: 12/19/24 17:14 Last Admin: 11/23/24 08:08 Dose: Not Given Torsemide (Torsemide 20 Mg Tab) 40 mg PO DAILY AMI Stop: 12/19/24 08:59 Last Admin: 11/23/24 08:07 Dose: 40 mg Vibegron (Vibegron 75 Mg Tab) 75 mg PO QAM AMI Stop: 12/19/24 08:59 Last Admin: 11/23/24 08:07 Dose: 75 mg Vitamin D (Cholecalciferol 25 Mcg (1000 Units) Tab) 50 mcg PO QAM [facility] Stop: 12/19/24 08:59 Last Admin: 11/23/24 08:07 Dose: Not Given (1) Anemia Anemia type: unspecified type Qualified Code(s): D64.9 - Anemia, unspecified (3) GI bleed GI bleed type/associated pathology: unspecified gastrointestinal hemorrhage type Qualified Code(s): K92.2 - Gastrointestinal hemorrhage, unspecified
[2024-11-23] MEDS: IRON SUCROSE 300 MG in SODIUM CHLORIDE 0.9% 250 ML IV ONE (19:43)
[2024-11-23] MEDS: LANTUS PER UNIT CHARGE SC SCH (20:49)
[2024-11-23] MEDS: DOCUSATE SODIUM 100 MG CAP PO SCH (20:52)
[2024-11-24 05:27] LABS: Appearance Urine Turbid (Clear); Bacteria Urine Automated 4+ (None Seen); Cast Urine Automated 0-2 /lpf (0-2); Epithelial Cell Urine Auto 0-2 /hpf (0-2); Glucose Urine UA Negative (Negative); WBC Urine Automated 0-5 /hpf (0-5)
[2024-11-24 06:16] LABS: Hematocrit (blood only) 26.8 % (37.0-47.0); Hemoglobin 8.2 g/dl (12.0-16.0); Immature Granulocytes # (auto) 0.09 K/uL (0.01-0.20); Immature Granulocytes % (auto) 0.7 %; Mean Corpuscular Hemoglobin 25.3 pg (25.0-34.0); Mean Corpuscular Volume 82.7 fL (80.0-100.0); Platelet Count 285 K/uL (130-400); RDW Standard Deviation 47.0 fL (36.4-46.3); Red Blood Count 3.24 M/uL (4.20-5.40); White Blood Count 13.35 K/ul (4.8-10.8)
[2024-11-24 06:31] LABS: Anion Gap 8.0 (3-11); Blood Urea Nitrogen 44.0 mg/dl (6-23); Calcium 8.8 mg/dl (8.6-10.3); Carbon Dioxide 29.0 mmol/L (21-32); Chloride 102.0 mmol/L (98-107); Creatinine Clr Calc Pharmacy 33.8 ml/min; Glucose 110.0 mg/dl (70-99(Fasting)); Magnesium 2.4 mg/dl (1.7-2.4); Potassium 4.0 mmol/L (3.5-5.1); Sodium 139.0 mmol/L (136-145)
[2024-11-24] MEDS: POLYETHYLENE (MIRALAX) 17 GM PACK PO ONE (08:22)
--- NOTE | 2024-11-24 13:51 | Hospitalist Progress Note ---
Date of Service November 24, 2024 Assessment & Plan (1) Anemia: (2) Dizziness: (3) GI bleed: (4) Presence of Watchman left atrial appendage closure device: (5) Diabetes mellitus, type 2: (6) Hypertension: (7) Hyperlipidemia: (8) Paroxysmal atrial fibrillation: Plan Ms Monsivais is a 69 year old F with PMH of insulin-dependent DM Type II, dyslipidemia, hypothyroidism, diastolic heart failure, paroxysmal AFib, HTN, CKD Stage III, depression and other medical problems listed below who presents with dizziness and anemia concerning for GI bleed. Patient underwent evaluation with EGD and it was noted to be unremarkable. DAPT resumed. #Symptomatic anemia, concern for GI bleed #Iron deficiency anemia Iron studies as an outpatient showed low iron of 15 TIBC 375, and transferrin saturation very low at 4% Outpatient hgb from from 7.9 to 6.8 in past few days on outpatient labwork s/p 1 UPRBC, 2x Iron sucrose Given exertional symptoms, consented in ED and now transfusing 1u prbc now with missed AM torsemide dose Monitor H&H, continue IV Protonix BID, Remains stable with hemoglobin of 8.2 and BUN and creatinine are slightly improved Status post EGD which was without any ulcers and not bleeding resumed DAPT follow up OP iron studies, cannot tolerate PO iron #HFpEF Appears compensated, admitting CXR without acute abnormalities resume torsemide Appreciate cardiology input and recommendations No signs and or symptoms of fluid overload #Paroxysmal Afib s/p Watchman procedure Continue home amiodarone HS for rate control transesophageal echocardiogram at [facility] 12/10/24. resumed DAPT #DM II A1c 6.1 in September 2024 SSI while in-patient Glycemic consult placed BSG AC HS #JOHN on CKD III improved Cr. Peaked at 2.14, downtrending #CATHERINE CPAP HS #Hyperlipidemia Continue home statin #Ambulatory dysfunction Patient unsteady given above - fall precautions, SNF rehab DVT Ppx: SCDs Code status: FULL PCP: Flo dispo to SNF Admission and Anticipated Discharge Date Admission Date: November 18, 2024 Subjective Patient reports subjective improvement overall reports feeling weak but wants to mobilize more in the room today agreeable to snf Physical Exam Constitutional: WD/WN, vitals as above Respiratory: normal respiratory effort, lungs clear to auscultation Gastrointestinal (Abdomen): normal bowel sounds, soft, nontender, no hepatosplenomegaly Results & Data Results & Data Vital Signs (Past 12 Hours) Vital Signs Temp Pulse Pulse Resp BP Pulse Ox O2 Del Method 11/24/24 11:37 36.5 C 60 17 97/61 L 96 Room Air 11/24/24 08:18 36.3 C L 63 17 112/72 92 Room Air 11/24/24 08:00 63 11/24/24 03:59 36.8 C 76 16 119/68 94 Room Air Laboratory Results Short CBC 11/24/24 Range/Units 05:58 WBC 13.35 H (4.8-10.8) K/ul Hgb 8.2 L (12.0-16.0) g/dl Hct 26.8 L (37.0-47.0) % Plt Count 285 (130-400) K/uL BMP 11/24/24 05:58 Sodium 139 Potassium 4.0 Chloride 102 Carbon Dioxide 29 BUN 44 H Creatinine 1.75 H Glucose 110 H Calcium 8.8 Urine 11/24/24 Range/Units 05:00 Urine Color Yellow Urine Appearance Turbid A (Clear) Urine pH >= 9.0 H (4.5-7.5) Ur Specific [place] 1.013 (1.000-1.030) Urine Protein 1+ H (Negative) Urine Glucose (UA) Negative (Negative) Medications Administered Home Medications Medication Instructions Recorded Confirmed Last Taken atorvastatin 20 mg tablet 20 mg PO QAM #30 tabs 10/24/23 11/18/24 03/24/24 bupropion HCl 100 mg tablet,12 hr 100 mg PO QAM #30 ea 10/24/23 11/18/24 03/24/24 sustained-release bupropion HCl 150 mg tablet,12 hr 150 mg PO QAM #30 ea 10/24/23 11/18/24 03/24/24 sustained-release cyanocobalamin (vitamin B-12) 1,000 mcg PO QAM #30 tabs 10/24/23 11/18/24 03/24/24 1,000 mcg tablet mirabegron 50 mg tablet,extended 50 mg PO QAM #30 tabs 10/24/23 11/18/24 03/24/24 release 24 hr (Myrbetriq) albuterol sulfate 90 mcg/actuation 2 puff inhalation Q4 PRN cough/sob 03/26/24 11/18/24 Unknown aerosol inhaler amiodarone 200 mg tablet 200 mg PO QPM 03/26/24 11/18/24 03/24/24 benzonatate 100 mg capsule 100 mg PO TID PRN Cough 03/26/24 11/18/24 Unknown cholecalciferol (vitamin D3) 50 50 mcg PO QAM 03/26/24 11/18/24 03/24/24 mcg (2,000 unit) tablet (Vitamin D3) famotidine 20 mg tablet (Pepcid) 20 mg PO AMPM 03/26/24 11/18/24 03/24/24 fluoxetine 60 mg tablet 60 mg PO QPM 03/26/24 11/18/24 03/24/24 fluticasone 250 mcg-salmeterol 50 1 ea inhalation QPM PRN Coughing 03/26/24 11/18/24 03/24/24 mcg/dose blistr powdr for inhalation insulin aspart U-100 100 unit/mL 0 unit subcut WM 03/26/24 11/18/24 Unknown (3 mL) subcutaneous pen (Novolog FlexPen U-100 Insulin aspart) insulin degludec 100 18 unit subcut QPM 03/26/24 11/18/24 03/24/24 unit-liraglutide 3.6 mg/mL(3 mL) subcutaneous pen (Xultophy 100/3.6) insulin glargine 100 unit/mL 3 unit subcut PM 03/26/24 11/18/24 03/24/24 subcutaneous solution (Lantus U-100 Insulin) levothyroxine 50 mcg tablet 50 mcg PO DAILYBB 03/26/24 11/18/24 03/24/24 ondansetron HCl 4 mg tablet 4 mg PO Q6 PRN Nausea And Vomiting 03/26/24 11/18/24 03/25/24 polyethylene glycol 3350 17 gram 17 g PO DAILY PRN Constipation 03/26/24 11/18/24 Unknown oral powder packet (Miralax) docusate sodium 100 mg capsule 100 mg PO BID #60 caps 04/01/24 11/18/24 Unknown (Colace) aspirin 81 mg tablet,delayed 81 mg PO DAILY 09/20/24 11/18/24 Unknown release clopidogrel 75 mg tablet 75 mg DAILY 09/20/24 11/18/24 Unknown metolazone 10 mg tablet 2.5 mg PO DAILY PRN Weight Gain 09/20/24 11/18/24 Unknown torsemide 40 mg tablet 40 mg PO DAILY 09/20/24 11/18/24 Unknown vitamins A,C,X-xrzx-wrcxcz 4,296 1 cap PO BID 09/20/24 11/18/24 Unknown mcg-226 mg-90 mg capsule (PreserVision AREDS) L.acidop,casei,lactis,rham-B.lact,catarino 1 cap PO DAILY #7 caps 09/22/24 11/18/24 Unknown 625 mg (10 billion cell) capsule (Advanced Probiotic) nystatin 100,000 unit/gram topical 1 applic topical TID PRN Rash 11/18/24 11/18/24 Unknown powder Active Medications Generic Name Dose Route Start Last Admin Trade Name Freq PRN Reason Stop Dose Admin Acetaminophen 650 mg 11/18/24 16:23 11/23/24 03:09 Acetaminophen 325 Mg Tab PO 12/18/24 16:22 650 mg Q4H PRN Administration Pain or Fever Amiodarone HCl 200 mg 11/18/24 21:00 11/23/24 20:48 Amiodarone 200 Mg Tab PO 12/18/24 20:59 200 mg QPM AMI Administration Aspirin 81 mg 11/18/24 18:00 11/24/24 08:23 Aspirin 81 Mg Ectab PO 12/18/24 17:59 81 mg DAILY AMI Administration Atorvastatin Calcium 20 mg 11/19/24 09:00 11/24/24 08:25 Atorvastatin 20 Mg Tab PO 12/19/24 08:59 20 mg QAM AMI Administration Bupropion HCl 150 mg 11/19/24 09:00 11/24/24 08:25 Bupropion Sr 150 Mg Tabcr PO 12/19/24 08:59 150 mg QAM AMI Administration Bupropion HCl 100 mg 11/19/24 09:00 11/24/24 08:24 Bupropion Sr 100 Mg Tabcr PO 12/19/24 08:59 100 mg QAM AMI Administration Clopidogrel Bisulfate 75 mg 11/18/24 18:00 11/24/24 08:23 Clopidogrel Bisulfate 75 Mg Tab PO 12/18/24 17:59 75 mg DAILY AMI Administration Cyanocobalamin 1,000 mcg 11/19/24 09:00 11/24/24 08:24 Cyanocobalamin (B-12) 500 Mcg Tablet PO 12/19/24 08:59 1,000 mcg QAM AMI Administration Docusate Sodium 100 mg 11/23/24 21:00 11/24/24 08:23 Docusate Sodium 100 Mg Cap PO 12/23/24 20:59 100 mg BID AMI Administration Fluoxetine HCl 60 mg 11/18/24 21:00 11/23/24 20:47 Fluoxetine Hcl 20 Mg Cap PO 12/18/24 20:59 60 mg QPM AMI Administration Insulin Aspart 0 units 11/23/24 16:30 11/24/24 13:46 Insulin Aspart Per Unit Charge SC 12/23/24 07:59 4 units ACHS AMI Administration Insulin Glargine 0 units 11/23/24 21:00 11/23/24 20:49 Lantus Per Unit Charge SC 12/23/24 20:59 Not Given HS AMI Protocol Lactobacillus Acidophilus 625 mg 11/19/24 09:00 11/24/24 08:25 Advanced Probiotic 625 Mg Capsule PO 12/19/24 08:59 625 mg DAILY AMI Administration Levothyroxine Sodium 50 mcg 11/19/24 06:30 11/24/24 06:02 Levothyroxine Sodium 50 Mcg Tablet PO 12/19/24 06:29 50 mcg DAILYBB AMI Administration Multivitamins/Minerals 1 tab 11/18/24 18:00 11/24/24 08:24 Cerovite Adv Formula Tab PO 12/18/24 17:59 1 tab DAILY AMI Administration Nystatin 1 appln 11/18/24 21:00 11/24/24 13:50 Nystatin Powder 15gm Btl EXT 12/18/24 20:59 1 appln TID AMI Administration Ondansetron HCl 4 mg 11/18/24 16:23 11/23/24 20:59 Ondansetron Inj 2 Mg/Ml 2 Ml Vial IV 12/18/24 16:22 4 mg Q6H PRN Administration Nausea Pantoprazole Sodium 40 mg 11/23/24 21:00 11/24/24 08:23 Pantoprazole 40 Mg Tab PO 12/23/24 20:59 40 mg BID AMI Administration Protocol Polyethylene Glycol 17 gm 11/19/24 17:15 11/24/24 08:26 Polyethylene (Miralax) 17 Gm Pack PO 12/19/24 17:14 Not Given DAILY AMI Torsemide 40 mg 11/19/24 09:00 11/24/24 08:25 Torsemide 20 Mg Tab PO 12/19/24 08:59 40 mg DAILY AMI Administration Vibegron 75 mg 11/19/24 09:00 11/24/24 08:24 Vibegron 75 Mg Tab PO 12/19/24 08:59 75 mg QAM AMI Administration Vitamin D 50 mcg 11/19/24 09:00 11/24/24 08:24 Cholecalciferol 25 Mcg (1000 Units) Tab PO 12/19/24 08:59 50 mcg QAM AMI Administration (1) Anemia Anemia type: unspecified type Qualified Code(s): D64.9 - Anemia, unspecified (3) GI bleed GI bleed type/associated pathology: unspecified gastrointestinal hemorrhage type Qualified Code(s): K92.2 - Gastrointestinal hemorrhage, unspecified
--- NOTE | 2024-11-24 21:16 | Cardiology Progress Note ---
Date of Service November 24, 2024 Assessment & Plan (1) Symptomatic anemia: (2) Presence of Watchman left atrial appendage closure device: (3) Diastolic congestive heart failure: (4) Paroxysmal atrial fibrillation: (5) Dyslipidemia: (6) Hypertension: Plan 69 year old female patient admitted to [facility] on 11/18/2024 with symptomatic anemia, hemoglobin 7.3 g/dL and + FOBT. History not overtly suggestive of active GI bleeding. Patient prescribed dual antiplatelet therapy with aspirin 81 mg/day and clopidogrel 75 mg/day, post September 16, 2024 [place] atrial [place]age [place] (# 24 mm Watchman[place] [facility] [place] No bleeding source per EGD. Dual antiplatelet therapy resumed. Dual antiplatelet therapy recommended for minimum 45 days post Watchman device implantation, however, dual antiplatelet therapy is typically continued until post-watchman JUD confirms absence of device related thrombus and/or significant niyah-device leak. Patient is scheduled for transesophageal echocardiogram at [facility] 12/10/24. Cardiology will sign off. Please call with additional questions / concerns. Shaw Hickey DO, [facility] Admission and Anticipated Discharge Date Admission Date: November 18, 2024 Subjective Patient seen and examined. Remains in sinus rhythm on telemetry. Denies CP or SOB. No signs/symptoms of GI blood loss. No bleeding source per EGD. Patient complains of poor stamina. Review of Systems Review of Systems: All systems reviewed & are unremarkable except as noted in Subjective Physical Exam Constitutional: well developed, well nourished and + obese Respiratory: no respiratory distress, no labored breathing and no retractions Auscultation: no crackles, no rales, no rhonchi and no wheezes Cardiovascular: Rate/Rhythm: regular rate and regular rhythm Heart Sounds: normal S1 and normal S2; no murmur Extremities: + edema (Trace to mild bilateral pedal edema.) Gastrointestinal (Abdomen): Inspection/Auscultation: abdomen normal to inspection; abdomen not distended Neurologic: CN's II-XI intact bilaterally and moves all extremities; no focal motor deficits Results & Data Vital Signs (Past 12 Hours) Vital Signs Temp Pulse Pulse Resp BP Pulse Ox O2 Del Method 11/24/24 21:02 Room Air 11/24/24 19:52 36.4 C L 61 17 102/64 98 Room Air 11/24/24 17:39 36.6 C 62 17 129/78 97 Room Air 11/24/24 16:00 11/24/24 14:00 63 11/24/24 11:37 36.5 C 60 17 97/61 L 96 Room Air O2 Del Method 11/24/24 21:02 11/24/24 19:52 11/24/24 17:39 11/24/24 16:00 Room Air 11/24/24 14:00 11/24/24 11:37 Laboratory Results CBC 11/24/24 Range/Units 05:58 WBC 13.35 H (4.8-10.8) K/ul RBC 3.24 L (4.20-5.40) M/uL Hgb 8.2 L (12.0-16.0) g/dl Hct 26.8 L (37.0-47.0) % Plt Count 285 (130-400) K/uL Neut # (Auto) 11.05 H (1.40-6.50) K/uL Lymph # (Auto) 0.82 L (1.20-3.40) K/uL [place] # (Auto) 1.18 H (0.11-0.59) K/uL Eos # (Auto) 0.15 (0.00-0.50) K/uL Baso # (Auto) 0.06 (0.00-0.20) K/uL Comprehensive Metabolic Panel 11/24/24 Range/Units 05:58 Sodium 139 (136-145) mmol/L Potassium 4.0 (3.5-5.1) mmol/L Chloride 102 (98-107) mmol/L Carbon Dioxide 29 (21-32) mmol/L BUN 44 H (6-23) mg/dl Creatinine 1.75 H (0.6-1.2) mg/dl Glucose 110 H (70-99(Fasting)) mg/dl Calcium 8.8 (8.6-10.3) mg/dl Intake and Output 11/24/24 11/24/24 11/24/24 06:59 14:59 22:59 Intake Total 480 / 480 Output Total 500 / 1000 700 / 700 Balance -500 / -375 -220 / -220 Intake: Oral 480 / 480 Output: Urine Amount (Catheter) 500 / 850 700 / 700 External 500 / 850 700 / 700 Other: # Unmeasured Voids 1 Weight 106.4 kg Weight Measurement Method Built in [facility] PG Care Time/CCT Total # of Minutes Spent Total Time Spent with Patient: Total time spent is greater than 50% in coordination of care (as documented) at patient's floor/unit and/or counseling patient: Coding Level of Care Code 10733 SUB INP/OBS CARE 2/35MIN Diagnoses Symptomatic anemia D64.9 Presence of Watchman left atrial appendage closure device Z95.818 Diastolic congestive heart failure I50.30 Paroxysmal atrial fibrillation I48.0 Dyslipidemia E78.5 Hypertension I10
[2024-11-25 07:42] LABS: Hematocrit (blood only) 28.6 % (37.0-47.0); Hemoglobin 8.7 g/dl (12.0-16.0); Mean Corpuscular Hemoglobin 25.6 pg (25.0-34.0); Mean Corpuscular Volume 84.1 fL (80.0-100.0); Platelet Count 298 K/uL (130-400); RDW Standard Deviation 48.6 fL (36.4-46.3); Red Blood Count 3.40 M/uL (4.20-5.40); White Blood Count 14.75 K/ul (4.8-10.8)
[2024-11-25 07:58] LABS: Anion Gap 9.0 (3-11); Blood Urea Nitrogen 47.0 mg/dl (6-23); Calcium 9.0 mg/dl (8.6-10.3); Carbon Dioxide 29.0 mmol/L (21-32); Chloride 100.0 mmol/L (98-107); Creatinine Clr Calc Pharmacy 29.4 ml/min; Glucose 167.0 mg/dl (70-99(Fasting)); Magnesium 2.3 mg/dl (1.7-2.4); Potassium 4.1 mmol/L (3.5-5.1); Sodium 138.0 mmol/L (136-145)
[2024-11-25 09:32] LABS: Immature Granulocytes # (auto) 0.19 K/uL (0.01-0.20); Immature Granulocytes % (auto) 1.3 %
--- NOTE | 2024-11-25 10:06 | Hospitalist Progress Note ---
Date of Service November 25, 2024 Assessment & Plan (1) Anemia: (2) Dizziness: (3) GI bleed: (4) Presence of Watchman left atrial appendage closure device: (5) Diabetes mellitus, type 2: (6) Hypertension: (7) Hyperlipidemia: (8) Paroxysmal atrial fibrillation: Plan Ms Monsivais is a 69 year old F with PMH of insulin-dependent DM Type II, dyslipidemia, hypothyroidism, diastolic heart failure, paroxysmal AFib, HTN, CKD Stage III, depression and other medical problems listed below who presents with dizziness and anemia concerning for GI bleed. Patient underwent evaluation with EGD and it was noted to be unremarkable. DAPT resumed. #Hypotension concern for dehydration, poor po intake 500cc bolus now hold torsemide orthostatics now #Leukocytosis suspect 2/2 dehydration no localizing symptoms UA ordered given history of infection #Symptomatic anemia, concern for GI bleed #Iron deficiency anemia Iron studies as an outpatient showed low iron of 15 TIBC 375, and transferrin saturation very low at 4% Outpatient hgb from from 7.9 to 6.8 in past few days on outpatient labwork s/p 1 UPRBC, 2x Iron sucrose Given exertional symptoms, consented in ED and now transfusing 1u prbc now with missed AM torsemide dose Monitor H&H, continue IV Protonix BID, Remains stable with hemoglobin of 8.2 and BUN and creatinine are slightly improved Status post EGD which was without any ulcers and not bleeding resumed DAPT follow up OP iron studies, cannot tolerate PO iron #HFpEF Appears compensated, admitting CXR without acute abnormalities hold torsemide Appreciate cardiology input and recommendations No signs and or symptoms of fluid overload #Paroxysmal Afib s/p Watchman procedure Continue home amiodarone HS for rate control transesophageal echocardiogram at [facility] 12/10/24. continue DAPT #DM II A1c 6.1 in September 2024 SSI while in-patient Glycemic consult placed BSG AC HS #JOHN on CKD III improved Cr. Peaked at 2.14, downtrending CTM,hold torsemide #CATHERINE CPAP HS #Hyperlipidemia Continue home statin #Ambulatory dysfunction Patient unsteady given above - fall precautions, SNF rehab DVT Ppx: SCDs Code status: FULL PCP: Flo dispo to SNF Admission and Anticipated Discharge Date Admission Date: November 18, 2024 Subjective Patient reports continued improvement but still some dizziness Not eating or drinking as much as she should she reports denies fevers, chills, chest pain Endorses dizziness however with standing reports nausea, but states that she had bowel movement yesterday Physical Exam Constitutional: WD/WN, vitals as above Respiratory: normal respiratory effort, lungs clear to auscultation Cardiovascular: RRR, no murmur, no edema Gastrointestinal (Abdomen): normal bowel sounds, soft, nontender, no hepatosplenomegaly Results & Data Results & Data Vital Signs (Past 12 Hours) Vital Signs Temp Pulse Resp BP Pulse Ox O2 Del Method 11/25/24 07:15 36.6 C 66 18 91/56 L 94 Room Air 11/24/24 22:25 Room Air, CPAP 11/24/24 22:25 36.6 C 61 18 99/64 L 100 Room Air Laboratory Results Short CBC 11/25/24 Range/Units 07:22 WBC 14.75 H (4.8-10.8) K/ul Hgb 8.7 L (12.0-16.0) g/dl Hct 28.6 L (37.0-47.0) % Plt Count 298 (130-400) K/uL BMP 11/25/24 07:22 Sodium 138 Potassium 4.1 Chloride 100 Carbon Dioxide 29 BUN 47 H Creatinine 2.01 H Glucose 167 H Calcium 9.0 Medications Administered Home Medications Medication Instructions Recorded Confirmed Last Taken atorvastatin 20 mg tablet 20 mg PO QAM #30 tabs 10/24/23 11/18/24 03/24/24 bupropion HCl 100 mg tablet,12 hr 100 mg PO QAM #30 ea 10/24/23 11/18/24 03/24/24 sustained-release bupropion HCl 150 mg tablet,12 hr 150 mg PO QAM #30 ea 10/24/23 11/18/24 03/24/24 sustained-release cyanocobalamin (vitamin B-12) 1,000 mcg PO QAM #30 tabs 10/24/23 11/18/24 03/24/24 1,000 mcg tablet mirabegron 50 mg tablet,extended 50 mg PO QAM #30 tabs 10/24/23 11/18/24 03/24/24 release 24 hr (Myrbetriq) albuterol sulfate 90 mcg/actuation 2 puff inhalation Q4 PRN cough/sob 03/26/24 11/18/24 Unknown aerosol inhaler amiodarone 200 mg tablet 200 mg PO QPM 03/26/24 11/18/24 03/24/24 benzonatate 100 mg capsule 100 mg PO TID PRN Cough 03/26/24 11/18/24 Unknown cholecalciferol (vitamin D3) 50 50 mcg PO QAM 03/26/24 11/18/24 03/24/24 mcg (2,000 unit) tablet (Vitamin D3) famotidine 20 mg tablet (Pepcid) 20 mg PO AMPM 03/26/24 11/18/24 03/24/24 fluoxetine 60 mg tablet 60 mg PO QPM 03/26/24 11/18/24 03/24/24 fluticasone 250 mcg-salmeterol 50 1 ea inhalation QPM PRN Coughing 03/26/24 11/18/24 03/24/24 mcg/dose blistr powdr for inhalation insulin aspart U-100 100 unit/mL 0 unit subcut WM 03/26/24 11/18/24 Unknown (3 mL) subcutaneous pen (Novolog FlexPen U-100 Insulin aspart) insulin degludec 100 18 unit subcut QPM 03/26/24 11/18/24 03/24/24 unit-liraglutide 3.6 mg/mL(3 mL) subcutaneous pen (Xultophy 100/3.6) insulin glargine 100 unit/mL 3 unit subcut PM 03/26/24 11/18/24 03/24/24 subcutaneous solution (Lantus U-100 Insulin) levothyroxine 50 mcg tablet 50 mcg PO DAILYBB 03/26/24 11/18/24 03/24/24 ondansetron HCl 4 mg tablet 4 mg PO Q6 PRN Nausea And Vomiting 03/26/24 11/18/24 03/25/24 polyethylene glycol 3350 17 gram 17 g PO DAILY PRN Constipation 03/26/24 11/18/24 Unknown oral powder packet (Miralax) docusate sodium 100 mg capsule 100 mg PO BID #60 caps 04/01/24 11/18/24 Unknown (Colace) aspirin 81 mg tablet,delayed 81 mg PO DAILY 09/20/24 11/18/24 Unknown release clopidogrel 75 mg tablet 75 mg DAILY 09/20/24 11/18/24 Unknown metolazone 10 mg tablet 2.5 mg PO DAILY PRN Weight Gain 09/20/24 11/18/24 Unknown torsemide 40 mg tablet 40 mg PO DAILY 09/20/24 11/18/24 Unknown vitamins A,C,B-lhem-kbwhrk 4,296 1 cap PO BID 09/20/24 11/18/24 Unknown mcg-226 mg-90 mg capsule (PreserVision AREDS) L.acidop,casei,lactis,rham-B.lact,catarino 1 cap PO DAILY #7 caps 09/22/24 11/18/24 Unknown 625 mg (10 billion cell) capsule (Advanced Probiotic) nystatin 100,000 unit/gram topical 1 applic topical TID PRN Rash 11/18/24 11/18/24 Unknown powder Active Medications Generic Name Dose Route Start Last Admin Trade Name Freq PRN Reason Stop Dose Admin Amiodarone HCl 200 mg 11/18/24 21:00 11/24/24 21:22 Amiodarone 200 Mg Tab PO 12/18/24 20:59 200 mg QPM AMI Administration Aspirin 81 mg 11/18/24 18:00 11/25/24 08:17 Aspirin 81 Mg Ectab PO 12/18/24 17:59 81 mg DAILY AMI Administration Atorvastatin Calcium 20 mg 11/19/24 09:00 11/25/24 08:17 Atorvastatin 20 Mg Tab PO 12/19/24 08:59 20 mg QAM AMI Administration Bupropion HCl 150 mg 11/19/24 09:00 11/25/24 08:18 Bupropion Sr 150 Mg Tabcr PO 12/19/24 08:59 150 mg QAM AMI Administration Bupropion HCl 100 mg 11/19/24 09:00 11/25/24 08:18 Bupropion Sr 100 Mg Tabcr PO 12/19/24 08:59 100 mg QAM AMI Administration Clopidogrel Bisulfate 75 mg 11/18/24 18:00 11/25/24 08:18 Clopidogrel Bisulfate 75 Mg Tab PO 12/18/24 17:59 75 mg DAILY AMI Administration Cyanocobalamin 1,000 mcg 11/19/24 09:00 11/25/24 08:18 Cyanocobalamin (B-12) 500 Mcg Tablet PO 12/19/24 08:59 1,000 mcg QAM AMI Administration Docusate Sodium 100 mg 11/23/24 21:00 11/25/24 08:18 Docusate Sodium 100 Mg Cap PO 12/23/24 20:59 100 mg BID AMI Administration Fluoxetine HCl 60 mg 11/18/24 21:00 11/24/24 21:22 Fluoxetine Hcl 20 Mg Cap PO 12/18/24 20:59 60 mg QPM AMI Administration Insulin Aspart 0 units 11/23/24 16:30 11/25/24 08:37 Insulin Aspart Per Unit Charge SC 12/23/24 07:59 7 units ACHS AMI Administration Insulin Glargine 0 units 11/23/24 21:00 11/24/24 21:23 Lantus Per Unit Charge SC 12/23/24 20:59 Not Given HS AMI Protocol Lactobacillus Acidophilus 625 mg 11/19/24 09:00 11/25/24 08:18 Advanced Probiotic 625 Mg Capsule PO 12/19/24 08:59 625 mg DAILY AMI Administration Levothyroxine Sodium 50 mcg 11/19/24 06:30 11/25/24 05:33 Levothyroxine Sodium 50 Mcg Tablet PO 12/19/24 06:29 50 mcg DAILYBB AMI Administration Multivitamins/Minerals 1 tab 11/18/24 18:00 11/25/24 08:17 Cerovite Adv Formula Tab PO 12/18/24 17:59 1 tab DAILY AMI Administration Nystatin 1 appln 11/18/24 21:00 11/25/24 08:38 Nystatin Powder 15gm Btl EXT 12/18/24 20:59 1 appln TID AMI Administration Ondansetron HCl 4 mg 11/18/24 16:23 11/23/24 20:59 Ondansetron Inj 2 Mg/Ml 2 Ml Vial IV 12/18/24 16:22 4 mg Q6H PRN Administration Nausea Pantoprazole Sodium 40 mg 11/23/24 21:00 11/25/24 08:18 Pantoprazole 40 Mg Tab PO 12/23/24 20:59 40 mg BID AMI Administration Protocol Polyethylene Glycol 17 gm 11/19/24 17:15 11/25/24 07:53 Polyethylene (Miralax) 17 Gm Pack PO 12/19/24 17:14 Not Given DAILY AMI Torsemide 40 mg 11/19/24 09:00 11/25/24 08:17 Torsemide 20 Mg Tab PO 12/19/24 08:59 40 mg DAILY AMI Administration Vibegron 75 mg 11/19/24 09:00 11/25/24 08:17 Vibegron 75 Mg Tab PO 12/19/24 08:59 75 mg QAM AMI Administration Vitamin D 50 mcg 11/19/24 09:00 11/25/24 08:18 Cholecalciferol 25 Mcg (1000 Units) Tab PO 12/19/24 08:59 50 mcg QAM AMI Administration (1) Anemia Anemia type: unspecified type Qualified Code(s): D64.9 - Anemia, unspecified (3) GI bleed GI bleed type/associated pathology: unspecified gastrointestinal hemorrhage type Qualified Code(s): K92.2 - Gastrointestinal hemorrhage, unspecified
[2024-11-25] MEDS: SODIUM CHLORIDE 0.9% 500 ML IV ONE (10:27)
--- NOTE | 2024-11-25 10:38 | XRay Report ---
KUB HISTORY: Acute transabdominal pain with constipation stool burden COMPARISON: 11/18/2024 CT FINDINGS: Nonobstructive bowel gas pattern. Moderate to extensive diffuse colonic fecal retention. Va scular calcifications. Bilateral renal calcifications are again noted. No ureteral calculi. No pneum operitoneum or pneumatosis. No fracture. IMPRESSION: 1. Nonobstructive bowel gas pattern. 2. Moderate to extensive colonic fecal retention. 3. Bilateral renal calcifications are better seen on the prior CT study. No ureteral calculi are seen . ACT 112: Negative or not required by law. The above report was generated using voice recognition software. It may contain grammatical, syntax o r spelling errors. Electronically signed by: Miguelito De M.D. 11/25/2024 10:37 AM
[2024-11-25 15:38] LABS: Appearance Urine Turbid (Clear); Bacteria Urine Automated 4+ (None Seen); Epithelial Cell Urine Auto 0-2 /hpf (0-2); Glucose Urine UA Negative (Negative); WBC Urine Automated >50 /hpf (0-5)
[2024-11-25 16:12] LABS: Protein Creatinine Ratio Urine 0.8 (0-0.2); Total Protein Urine Random 50.7 mg/dl (0-11.9)
[2024-11-25] MEDS ORDERED: LANTUS PER UNIT CHARGE SC SCH (21:00)
[2024-11-25] MEDS: LANTUS PER UNIT CHARGE SC SCH (21:36)
[2024-11-26 08:55] LABS: Hematocrit (blood only) 27.1 % (37.0-47.0); Hemoglobin 8.3 g/dl (12.0-16.0); Mean Corpuscular Hemoglobin 25.7 pg (25.0-34.0); Mean Corpuscular Volume 83.9 fL (80.0-100.0); Platelet Count 306 K/uL (130-400); RDW Standard Deviation 49.6 fL (36.4-46.3); Red Blood Count 3.23 M/uL (4.20-5.40); White Blood Count 13.67 K/ul (4.8-10.8)
[2024-11-26 09:13] LABS: Alanine Aminotransferase 67.0 U/L (7-52); Albumin Globulin Ratio 1.1 (0.9-2); Alkaline Phosphatase 49.0 U/L (34-104); Anion Gap 8.0 (3-11); Bilirubin,Total 0.5 mg/dl (0.2-1.0); Blood Urea Nitrogen 52.0 mg/dl (6-23); Calcium 8.6 mg/dl (8.6-10.3); Carbon Dioxide 28.0 mmol/L (21-32); Chloride 99.0 mmol/L (98-107); Creatinine Clr Calc Pharmacy 28.9 ml/min; Globulin 3.0 gm/dl (2.5-4.0); Glucose 138.0 mg/dl (70-99(Fasting)); Magnesium 2.4 mg/dl (1.7-2.4); Potassium 3.7 mmol/L (3.5-5.1); Sodium 135.0 mmol/L (136-145); Total Protein 6.2 gm/dl (6.0-8.3)
[2024-11-26] MEDS: cefTRIAXone SODIUM 2,000 MG/50 ML BAG IV SCH (10:04)
--- NOTE | 2024-11-26 13:17 | Pharmacy Report ---
Pharmacy Glycemic Short Note 2 - Date of Service November 26, 2024 - Glycemic Short BSG Results (Last 24 hours): 11/25/24 11/25/24 11/26/24 16:44 20:15 07:35 Glucose POC Glucose 206 H 212 H 159 H 11/26/24 11/26/24 07:39 11:49 Glucose 138 H POC Glucose 189 H OUTPATIENT ANTIDIABETIC REGIMEN: * Xultophy, lantus 3 units qPM, + Novolog SS * A1c 6.8% 09/21/24 ASSESSMENT: 11/26: * Lisa received a total of 33 units of insulin yesterday (9 units were basal and 24 units were bolus). * Fasting BSG was 159mg/dL this morning. BSGs have been improving since Lantus was resumed last evening (did not require any the prior 2 days) so will continue Lantus scale at HS and bolus insulin regimen as previously ordered. 11/23: * Lisa has not been requiring much insulin this admission. She received a total of 16 units of insulin yesterday (9 units were basal and 7 units were bolus). * Fasting BSG was 105mg/dL this morning. She is currently NPO for an EGD eval this afternoon. Since her blood glucose was below goal this morning and she will be NPO most of the day, the HS Lantus has been changed to a scale (0,5,or 9 units depending on BSG). * She is to continue with current bolus insulin regimen. 11/19: * Patient with type II diabetes admitted for GI Bleed. Initially NPO this morning, diet has been resumed * Fasting 139 mg/dL this morning with 8 units of lantus last PM. Will continue with this today. * Correction/Carb ratio initiated using weight based dosing (stress 2) PLAN FOR INPATIENT GLYCEMIC CONTROL: * Basal insulin * Lantus scale at HS (5 or 9 units depending on BSG) * Bolus insulin * NovoLog per scale ACHS or Q6hrs while NPO * Goal Range: Low 120 mg/dL - High 160 mg/dL * Correction Factor: 30 mg/dL/unit * Nutritional / Prandial insulin per carb ratio of 1 unit per 9 grams CHO consumed
[2024-11-26 15:08] VITALS: RESP 18
--- NOTE | 2024-11-26 15:11 | Hospitalist Progress Note ---
Date of Service November 26, 2024 Assessment & Plan (1) Anemia: (2) Dizziness: (3) GI bleed: (4) Presence of Watchman left atrial appendage closure device: (5) Diabetes mellitus, type 2: (6) Hypertension: (7) Hyperlipidemia: (8) Paroxysmal atrial fibrillation: Plan Ms Monsivais is a 69 year old F with PMH of insulin-dependent DM Type II, dyslipidemia, hypothyroidism, diastolic heart failure, paroxysmal AFib, HTN, CKD Stage III, depression and other medical problems listed below who presents with dizziness and anemia concerning for GI bleed. Patient underwent evaluation with EGD and it was noted to be unremarkable. DAPT resumed. Patient with urinary symptoms c/w UTI. Patient improving otherwise and eager for rehab. Plan for discharge tomorrow at noon #Hypotension*resolved concern for dehydration, poor po intake 500cc bolus now hold torsemide, consider resumption upon follow up with PCP orthostatics negative #Acute uncomplicated cystitis #Leukocytosis suspect 2/2 dehydration and with dysuria/frequency reported s/p IV ctx x 1 transition to cefdinir BID x 4 days tomorrow #Symptomatic anemia, concern for GI bleed #Iron deficiency anemia Iron studies as an outpatient showed low iron of 15 TIBC 375, and transferrin saturation very low at 4% Outpatient hgb from from 7.9 to 6.8 in past few days on outpatient labwork s/p 1 UPRBC, 2x Iron sucrose Given exertional symptoms, consented in ED and now transfusing 1u prbc now with missed AM torsemide dose Monitor H&H, continue IV Protonix BID, Remains stable with hemoglobin of 8.2 and BUN and creatinine are slightly impr alan Status post EGD which was without any ulcers and not bleeding continue DAPT follow up OP iron studies, cannot tolerate PO iron #HFpEF Appears compensated, admitting CXR without acute abnormalities hold torsemide Appreciate cardiology input and recommendations No signs and or symptoms of fluid overload #Paroxysmal Afib s/p Watchman procedure Continue home amiodarone HS for rate control transesophageal echocardiogram at [facility] 12/10/24. continue DAPT #DM II A1c 6.1 in September 2024 SSI while in-patient Glycemic consult placed BSG AC HS #JOHN on CKD III improved Cr. Peaked at 2.14, downtrending CTM,hold torsemide #CATHERINE CPAP HS #Hyperlipidemia Continue home statin #Ambulatory dysfunction Patient unsteady given above - fall precautions, SNF rehab DVT Ppx: SCDs Code status: FULL PCP: Flo dispo to SNF Admission and Anticipated Discharge Date Admission Date: November 18, 2024 Subjective Reports dysuria and frequency, consistent with prior UTI no fevers or chills at this time denies any signs of bleeding at this time reports difficult with bowel movement, more constipated than usual Physical Exam Constitutional: WD/WN, vitals as above Respiratory: normal respiratory effort, lungs clear to auscultation Cardiovascular: RRR, no murmur, no edema Gastrointestinal (Abdomen): normal bowel sounds, soft, nontender, no hepatosplenomegaly Results & Data Results & Data Vital Signs (Past 12 Hours) Vital Signs Temp Pulse Resp BP Pulse Ox O2 Del Method 11/26/24 12:10 36.3 C L 59 L 17 110/65 96 Room Air 11/26/24 10:00 Room Air 11/26/24 07:53 36.5 C 62 18 106/64 96 Room Air Laboratory Results Short CBC 11/26/24 Range/Units 07:39 WBC 13.67 H (4.8-10.8) K/ul Hgb 8.3 L (12.0-16.0) g/dl Hct 27.1 L (37.0-47.0) % Plt Count 306 (130-400) K/uL BMP 11/26/24 07:39 Sodium 135 L Potassium 3.7 Chloride 99 Carbon Dioxide 28 BUN 52 H Creatinine 2.05 H Glucose 138 H Calcium 8.6 Liver Function 11/26/24 Range/Units 07:39 Total Bilirubin 0.5 (0.2-1.0) mg/dl AST 64 H (13-39) U/L ALT 67 H (7-52) U/L Alkaline Phosphatase 49 (34-104) U/L Albumin 3.2 L (3.4-5.0) gm/dl Urine 11/25/24 Range/Units 15:03 Urine Color Yellow Urine Appearance Turbid A (Clear) Urine pH 8.5 H (4.5-7.5) Ur Specific Stacy 1.012 (1.000-1.030) Urine Protein 1+ H (Negative) Urine Glucose (UA) Negative (Negative) Medications Administered Home Medications Medication Instructions Recorded Confirmed Last Taken atorvastatin 20 mg tablet 20 mg PO QAM #30 tabs 10/24/23 11/18/24 03/24/24 bupropion HCl 100 mg tablet,12 hr 100 mg PO QAM #30 ea 10/24/23 11/18/24 03/24/24 sustained-release bupropion HCl 150 mg tablet,12 hr 150 mg PO QAM #30 ea 10/24/23 11/18/24 03/24/24 sustained-release cyanocobalamin (vitamin B-12) 1,000 mcg PO QAM #30 tabs 10/24/23 11/18/2404/17 1,000 mcg tablet mirabegron 50 mg tablet,extended 50 mg PO QAM #30 tabs 10/24/23 11/18/24 03/24/24 release 24 hr (Myrbetriq) albuterol sulfate 90 mcg/actuation 2 puff inhalation Q4 PRN cough/sob 03/26/24 11/18/24 Unknown aerosol inhaler amiodarone 200 mg tablet 200 mg PO QPM 03/26/24 11/18/24 03/24/24 benzonatate 100 mg capsule 100 mg PO TID PRN Cough 03/26/24 11/18/24 Unknown cholecalciferol (vitamin D3) 50 50 mcg PO QAM 03/26/24 11/18/24 03/24/24 mcg (2,000 unit) tablet (Vitamin D3) famotidine 20 mg tablet (Pepcid) 20 mg PO AMPM 03/26/24 11/18/24 03/24/24 fluoxetine 60 mg tablet 60 mg PO QPM 03/26/24 11/18/24 03/24/24 fluticasone 250 mcg-salmeterol 50 1 ea inhalation QPM PRN Coughing 03/26/24 11/18/24 03/24/24 mcg/dose blistr powdr for inhalation insulin aspart U-100 100 unit/mL 0 unit subcut WM 03/26/24 11/18/24 Unknown (3 mL) subcutaneous pen (Novolog FlexPen U-100 Insulin aspart) insulin degludec 100 18 unit subcut QPM 03/26/24 11/18/24 03/24/24 unit-liraglutide 3.6 mg/mL(3 mL) subcutaneous pen (Xultophy 100/3.6) insulin glargine 100 unit/mL 3 unit subcut PM 03/26/24 11/18/24 03/24/24 subcutaneous solution (Lantus U-100 Insulin) levothyroxine 50 mcg tablet 50 mcg PO DAILYBB 03/26/24 11/18/24 03/24/24 ondansetron HCl 4 mg tablet 4 mg PO Q6 PRN Nausea And Vomiting 03/26/24 11/18/24 03/25/24 polyethylene glycol 3350 17 gram 17 g PO DAILY PRN Constipation 03/26/24 11/18/24 Unknown oral powder packet (Miralax) docusate sodium 100 mg capsule 100 mg PO BID #60 caps 04/01/24 11/18/24 Unknown (Colace) aspirin 81 mg tablet,delayed 81 mg PO DAILY 09/20/24 11/18/24 Unknown release clopidogrel 75 mg tablet 75 mg DAILY 09/20/24 11/18/24 Unknown metolazone 10 mg tablet 2.5 mg PO DAILY PRN Weight Gain 09/20/24 11/18/24 Unknown torsemide 40 mg tablet 40 mg PO DAILY 09/20/24 11/18/24 Unknown vitamins A,C,V-zmql-obczhm 4,296 1 cap PO BID 09/20/24 11/18/24 Unknown mcg-226 mg-90 mg capsule (PreserVision AREDS) L.acidop,casei,lactis,rham-B.lact,catarino 1 cap PO DAILY #7 caps 09/22/24 11/18/24 Unknown 625 mg (10 billion cell) capsule (Advanced Probiotic) nystatin 100,000 unit/gram topical 1 applic topical TID PRN Rash 11/18/24 11/18/24 Unknown powder Active Medications Generic Name Dose Route Start Last Admin Trade Name Freq PRN Reason Stop Dose Admin Amiodarone HCl 200 mg 11/18/24 21:00 11/25/24 22:45 Amiodarone 200 Mg Tab PO 12/18/24 20:59 200 mg QPM AMI Administration Aspirin 81 mg 11/18/24 18:00 11/26/24 09:42 Aspirin 81 Mg Ectab PO 12/18/24 17:59 81 mg DAILY AMI Administration Atorvastatin Calcium 20 mg 11/19/24 09:00 11/26/24 09:42 Atorvastatin 20 Mg Tab PO 12/19/24 08:59 20 mg QAM AMI Administration Bupropion HCl 150 mg 11/19/24 09:00 11/26/24 09:43 Bupropion Sr 150 Mg Tabcr PO 12/19/24 08:59 150 mg QAM AMI Administration Bupropion HCl 100 mg 11/19/24 09:00 11/26/24 09:43 Bupropion Sr 100 Mg Tabcr PO 12/19/24 08:59 100 mg QAM AMI Administration Clopidogrel Bisulfate 75 mg 11/18/24 18:00 11/26/24 09:44 Clopidogrel Bisulfate 75 Mg Tab PO 12/18/24 17:59 75 mg DAILY AMI Administration Cyanocobalamin 1,000 mcg 11/19/24 09:00 11/26/24 09:44 Cyanocobalamin (B-12) 500 Mcg Tablet PO 12/19/24 08:59 1,000 mcg QAM AMI Administration Docusate Sodium 100 mg 11/23/24 21:00 11/26/24 09:45 Docusate Sodium 100 Mg Cap PO 12/23/24 20:59 100 mg BID AMI Administration Fluoxetine HCl 60 mg 11/18/24 21:00 11/25/24 22:44 Fluoxetine Hcl 20 Mg Cap PO 12/18/24 20:59 60 mg QPM AMI Administration Insulin Aspart 0 units 11/23/24 16:30 11/26/24 13:35 Insulin Aspart Per Unit Charge SD 12/23/24 07:59 5 units ACHS AMI Administration Insulin Glargine 0 units 11/25/24 21:00 11/25/24 21:36 Lantus Per Unit Charge SC 12/25/24 20:59 9 units HS AMI Administration Protocol Lactobacillus Acidophilus 625 mg 11/19/24 09:00 11/26/24 09:44 Advanced Probiotic 625 Mg Capsule PO 12/19/24 08:59 625 mg DAILY AMI Administration Levothyroxine Sodium 50 mcg 11/19/24 06:30 11/26/24 06:11 Levothyroxine Sodium 50 Mcg Tablet PO 12/19/24 06:29 50 mcg DAILYBB AMI Administration Multivitamins/Minerals 1 tab 11/18/24 18:00 11/26/24 09:44 Cerovite Adv Formula Tab PO 12/18/24 17:59 1 tab DAILY AMI Administration Nystatin 1 appln 11/18/24 21:00 11/26/24 13:35 Nystatin Powder 15gm Btl EXT 12/18/24 20:59 1 appln TID AMI Administration Ondansetron HCl 4 mg 11/18/24 16:23 11/26/24 13:35 Ondansetron Inj 2 Mg/Ml 2 Ml Vial IV 12/18/24 16:22 4 mg Q6H PRN Administration Nausea Pantoprazole Sodium 40 mg 11/23/24 21:00 11/26/24 09:44 Pantoprazole 40 Mg Tab PO 12/23/24 20:59 40 mg BID AMI Administration Protocol Polyethylene Glycol 17 gm 11/19/24 17:15 11/26/24 09:42 Polyethylene (Miralax) 17 Gm Pack PO 12/19/24 17:14 17 gm DAILY AMI Administration Torsemide 40 mg 11/19/24 09:00 11/25/24 08:17 Torsemide 20 Mg Tab PO 12/19/24 08:59 40 mg DAILY AMI Administration Vibegron 75 mg 11/19/24 09:00 11/26/24 09:45 Vibegron 75 Mg Tab PO 12/19/24 08:59 75 mg QAM AMI Administration Vitamin D 50 mcg 11/19/24 09:00 11/26/24 09:45 Cholecalciferol 25 Mcg (1000 Units) Tab PO 12/19/24 08:59 50 mcg QAM AMI Administration (1) Anemia Anemia type: unspecified type Qualified Code(s): D64.9 - Anemia, unspecified (3) GI bleed GI bleed type/associated pathology: unspecified gastrointestinal hemorrhage type Qualified Code(s): K92.2 - Gastrointestinal hemorrhage, unspecified
[2024-11-26] MEDS: BENZONATATE 100 MG CAPSULE PO PRN (17:15)
[2024-11-26] MEDS: COUGH DROP (SUGAR FREE) LOZ 24 LOZ/1 BOX BUCCAL PRN (17:15)
[2024-11-27 06:18] LABS: Hematocrit (blood only) 25.2 % (37.0-47.0); Hemoglobin 8.1 g/dl (12.0-16.0); Mean Corpuscular Hemoglobin 26.7 pg (25.0-34.0); Mean Corpuscular Volume 83.2 fL (80.0-100.0); Platelet Count 297 K/uL (130-400); RDW Standard Deviation 49.6 fL (36.4-46.3); Red Blood Count 3.03 M/uL (4.20-5.40); White Blood Count 14.77 K/ul (4.8-10.8)
[2024-11-27 06:38] LABS: Anion Gap 8.0 (3-11); Blood Urea Nitrogen 51.0 mg/dl (6-23); Calcium 8.5 mg/dl (8.6-10.3); Carbon Dioxide 27.0 mmol/L (21-32); Chloride 100.0 mmol/L (98-107); Creatinine Clr Calc Pharmacy 29.3 ml/min; Glucose 179.0 mg/dl (70-99(Fasting)); Magnesium 2.4 mg/dl (1.7-2.4); Potassium 4.0 mmol/L (3.5-5.1); Sodium 135.0 mmol/L (136-145)
[2024-11-27 07:01] VITALS: TEMP 98.1; O2SAT 93
[2024-11-27] MEDS: CEFDINIR 300 MG CAP PO SCH (08:22)
--- NOTE | 2024-11-27 09:43 | Discharge Summary ---
Date of Service November 27, 2024 Admission HPI Per Admitting Provider This is a 69 year old F with PMH of insulin-dependent DM Type II, dyslipidemia, hypothyroidism, diastolic heart failure, paroxysmal AFib, HTN, CKD Stage III, depression and other medical problems listed below who presents with dizziness. Was recently admitted 09/20-09/22 to our service for decompensated HFpEF and RLE cellulitis. Since discharge home, made decision with help of PCP to move into [facility], which she did last Friday. For the past 2 weeks, endorses dizziness with exertion or any type of ambulation. Has also had episodes of nausea with bilious emesis only when exerting herself. Denies any chest pain or significant shortness of breath during these times. States she has been compliant with medications, including her diuretics and said she is up about 2 to 3 pounds since her arrival to [facility]. Denies any hematemesis but states her bowel movements are darker than usual. No [place] blood per rectum. Denies history of GI bleed in the past. Of significance, patient underwent placement of Watchman device in August 2024 and has been on DAPT since then. Per cardiology note from last month, DAPT required for 45 days (through mid October) until JUD scheduled for 11/03/2024. However due to transportation issues, patient canceled study and it is not rescheduled until november. Since arrival in [facility], had lab work done due to dizziness with hemoglobin of 7.9 on 11/16. Repeat hemoglobin this morning done in outpatient setting was 6.8, so patient sent to ED for further evaluation. Denies any fever, chills, chest pain, shortness of breath, abdominal pain, diarrhea or constipation. Has had some dysuria and had an abnormal urinalysis in outpatient setting and was started on Keflex on 11/16 but final urine culture resulted with multiple wen suggesting contamination or colonization. Admission Exam Per Admitting Provider General Appearance: WD/WN, vitals as above, NAD, sitting up in bed, pleasant, conversing easily, obese Head: normocephalic, atraumatic Eyes: normal inspection, PERRL, conjunctivae normal, anicteric sclerae ENT: external ear and nose normal, dry mucous membranes of oropharynx Neck: normal visual inspection Respiratory: normal respiratory effort, diminished lung sounds but clear. No accessory muscle use Cardiovascular: regular rate, rhythm,normal peripheral pulses, trace BLE edema Abdomen/GI: normal bowel sounds, soft, nontender, no hepatosplenomegaly Extremities/Musculoskeletal: no cyanosis or clubbing, extremities motor s trength 5/5, venous stasis changes BLE Neurologic: PERRL, EOMI, accommodation nl, no face palsy, no dysarthria, CN's II-XI intact bilaterally and moves all extremities Psychiatric: A+Ox3, euthymic affect Skin: normal color, warm/dry, erythematous rash noted around skin folds in groin Principal Diagnosis Anemia, UTI Discharge Exam Constitutional: WD/WN, vitals as above Respiratory: normal respiratory effort, lungs clear to auscultation Cardiovascular: RRR, no murmur, no edema Gastrointestinal (Abdomen): normal bowel sounds, soft, nontender Discharge Data Allergies Allergy/AdvReac Type Severity Reaction Status Date / Time lisinopril Allergy Intermediate Cough Unverified 09/20/24 15:22 penicillin G Allergy Intermediate HIVES Verified 09/20/24 15:22 codeine AdvReac Intermediate VOMITING Verified 09/20/24 15:22 hydrocodone AdvReac Intermediate Vomiting Verified 09/20/24 15:22 Consultations 11/18/24 13:07 ED Decision to Admit Stat 11/18/24 14:20 Consult Gastroenterology Routine 11/18/24 14:28 Consult Cardiology Routine Procedures Performed Operation Date: 11/23/24 16:30 Actual Procedures p Esophagogastroduodenoscopy - Rohit Silva MD Ordered Studies 11/18/24 10:22 CT abd pelvis IV con only Stat FINDINGS: Lung bases: A left atrial occlusion devices noted. The heart is enlarged and without pericardial effusion. There is coronary artery atherosclerosis. The mitral annulus is densely calcified. A tiny hiatal hernia is noted. The lung bases are clear. Liver: The contrast-enhanced liver is normal in size, contour, and attenuation. There is no intrahepatic biliary ductal dilatation. The hepatic veins and portal veins are patent. Gallbladder: Unremarkable. Spleen: Normal in size and attenuation. There are calcified splenic granulomas. Pancreas: Unremarkable. Adrenal glands: Unremarkable. Kidneys: The contrast enhanced kidneys demonstrate mild cortical atrophy and are without hydronephrosis. The kidneys enhance symmetrically. There are at least 2 nonobstructing right renal calculi which measure up to 10 mm. A 6 mm nonobstructing calculus is seen on the left. No ureteral stone is identified. There is nonspecific bilateral perinephric stranding. Abdominal vasculature: The abdominal aorta is normal in course and caliber noting mild atherosclerotic calcification. Bowel: There is mild colonic fecal retention. No bowel obstruction is seen. No intraluminal contrast is identified to suggest a site of GI bleeding. The appendix is well-visualized and normal. Peritoneum: There is no intraperitoneal free air or abdominal ascites. There is asymmetric atrophy of the right iliopsoas musculature as compared to the left. Lymphadenopathy: None. Pelvic viscera: The bladder is distended and contains a small focus of intraluminal gas. The uterus is surgically absent. No adnexal lesion is seen. Skeletal structures: The skeletal structures are osteopenic. There is mild lumbosacral spondylosis with a large posterior disc osteophyte complex at L4-L5. Sclerotic change is seen in the sacroiliac joints. No lytic or blastic lesions are seen. IMPRESSION: 1. The bladder is distended and contains a nonspecific focus of intraluminal gas. This may be related to instrumentation. Correlate with clinical findings and urinalysis. 2. There is nonspecific bilateral perinephric stranding which is similar to the 09/20/2024 examination. Again, this should be correlated with urinalysis. 3. Bilateral nephrolithiasis. 4. Cardiomegaly. 5. Additional findings as above. Hospital Course (1) Anemia: (2) Dizziness: (3) GI bleed: (4) Presence of Watchman left atrial appendage closure device: (5) Diabetes mellitus, type 2: (6) Hypertension: (7) Hyperlipidemia: (8) Paroxysmal atrial fibrillation: Plan Ms Monsivais is a 69 year old F with PMH of insulin-dependent DM Type II, dyslipidemia, hypothyroidism, diastolic heart failure, paroxysmal AFib, HTN, CKD Stage III, depression and other medical problems listed below who presents with dizziness and anemia concerning for GI bleed. Patient underwent evaluation with EGD and it was noted to be unremarkable. DAPT resumed. Patient with urinary symptoms c/w UTI. Patient improving otherwise and eager for rehab. Plan for discharge at noon #Hypotension*resolved concern for dehydration, poor po intake 500cc bolus now hold torsemide, consider resumption upon follow up with PCP orthostatics negative #Acute uncomplicated cystitis #Leukocytosis suspect 2/2 dehydration and with dysuria/frequency reported s/p IV ctx x 1 transitioned to cefdinir daily x 4 day given her renal function #Symptomatic anemia, concern for GI bleed #Iron deficiency anemia Iron studies as an outpatient showed low iron of 15 TIBC 375, and transferrin saturation very low at 4% Outpatient hgb from from 7.9 to 6.8 in past few days on outpatient labwork s/p 1 UPRBC, 2x Iron sucrose Given exertional symptoms, consented in ED and now transfusing 1u prbc Monitor H&H, continue IV Protonix BID, Remains stable with hemoglobin of 8.2 and BUN and creatinine are slightly improved Status post EGD which was without any ulcers and not bleeding continue DAPT follow up OP iron studies, cannot tolerate PO iron #HFpEF Appears compensated, admitting CXR without acute abnormalities hold torsemide Appreciate cardiology input and recommendations No signs and or symptoms of fluid overload #Paroxysmal Afib s/p Watchman procedure Continue home amiodarone HS for rate control transesophageal echocardiogram at [facility] 12/10/24. continue DAPT #DM II A1c 6.1 in September 2024 SSI while in-patient Glycemic consult placed BSG AC HS #JOHN on CKD III improved Cr. Peaked at 2.14, downtrending CTM,hold torsemide #CATHERINE CPAP HS #Hyperlipidemia Continue home statin #Ambulatory dysfunction Patient unsteady given above - fall precautions, SNF rehab Total Time Total Time Spent Total Time Spent (In Minutes): 40 Discharge Plan Discharge Items Patient Disposition: Transfer Care Home Fac Reason For Visit: ANEMIA, SUSPECTED GI BLEED Discharge Diagnosis: Anemia, UTI Condition on Discharge: Fair Activity: Per Instructions section Non-emergency contact: Primary Care Provider Call non-emergency contact if: you have any medication questions and your symptoms worsen Follow-up/Referrals: Aviva Rossi DO [Primary Care Provider] - (The office will contact you with a follow up appointment.) Diet: Carb Consistent or DM2 and Low Sodium (2gm) Addtl Attending Provider Instructions: Follow up with your primary care doctor within 1 week. Finish antibiotic treatment as prescribed - cefdinir - daily. Hold torsemide for now, discuss with your primary care physician when to resume. Monitor your weight daily. Pending Studies at Discharge: No Stand-Alone Forms: My [facility] Skilled Items Patient informed of condition?: Yes DNR: No Discharge Level of Care: Skilled Communicable Disease: No Discharge Prognosis: Stable Lines: None Urinary Catheter: No Medications and DC Order Prescriptions: New pantoprazole 40 mg Tablet,Delayed Release (Dr/Ec) 40 mg PO BID 30 Days Qty: 60 0RF cefdinir 300 mg Capsule 300 mg PO DAILY 3 Days Qty: 3 0RF Continued amiodarone 200 mg tablet 200 mg PO QPM Taper: Taper, Blank 200 mg TWICE A DAY for 23 Days 200 mg DAILY for 30 Days cholecalciferol (vitamin D3) [Vitamin D3] 50 mcg (2,000 unit) tablet 50 mcg PO QAM fluoxetine 60 mg tablet 60 mg PO QPM levothyroxine 50 mcg tablet 50 mcg PO DAILYBB fluticasone propion-salmeterol 250-50 mcg/dose blister with device 1 ea INHALATION QPM PRN (Reason: Coughing) polyethylene glycol 3350 [Miralax] 17 gram powder in packet 17 g PO DAILY PRN (Reason: Constipation) Xultophy 100/3.6 100 unit-3.6 mg /mL (3 mL) insulin pen 18 unit SUBCUT QPM Rx Instructions: per pharmacy -up to 50 units daily per titration. insulin glargine [Lantus U-100 Insulin] 100 unit/mL Solution 3 unit SUBCUT PM insulin aspart U-100 [Novolog FlexPen U-100 Insulin] 100 unit/mL (3 mL) insulin pen 0 unit SUBCUT WM Rx Instructions: sliding scale albuterol sulfate 90 mcg/actuation HFA aerosol inhaler 2 puff INHALATION Q4 PRN (Reason: cough/sob) ondansetron HCl 4 mg Tablet 4 mg PO Q6 PRN (Reason: Nausea And Vomiting) benzonatate 100 mg capsule 100 mg PO TID PRN (Reason: Cough) docusate sodium [Colace] 100 mg capsule 100 mg PO BID Qty: 60 0RF aspirin 81 mg Tablet,Delayed Release (Dr/Ec) 81 mg PO DAILY metolazone 10 mg Tablet 2.5 mg PO DAILY PRN (Reason: Weight Gain) Rx Instructions: Take Torsemide 40mg by mouth once daily, may take up to 80mg daily for weight gain x 3 days. If not resolved, add Metolazone 10mg once daily PreserVision AREDS 4,296 mcg-226 mg-90 mg Capsule 1 cap PO BID torsemide 40 mg Tablet 40 mg PO DAILY MDD 80mg/24hr Rx Instructions: Take 40mg by mouth once daily, may take up to 80mg daily for weight gain x 3 days. If not resolved, add Metolazone 10mg once daily clopidogrel 75 mg Tablet 75 mg DAILY Advanced Probiotic 625 mg (10 billion cell) Capsule 1 cap PO DAILY Qty: 7 0RF bupropion HCl 150 mg Tablet Sustained-Release 12 Hr 150 mg PO QAM Qty: 30 0RF Rx Instructions: TOTAL DOSE 250 MG--TAKES WITH 100 MG TAB. atorvastatin 20 mg Tablet 20 mg PO QAM Qty: 30 0RF cyanocobalamin (vitamin B-12) 1,000 mcg Tablet 1,000 mcg PO QAM Qty: 30 0RF bupropion HCl 100 mg Tablet Sustained-Release 12 Hr 100 mg PO QAM Qty: 30 0RF Rx Instructions: TOTAL DOSE 250 MG--TAKES WITH 150 MG TAB. mirabegron [Myrbetriq] 50 mg Tablet Extended Release 24 Hr 50 mg PO QAM Qty: 30 0RF nystatin 100,000 unit/gram Powder 1 applic TOPICAL TID PRN (Reason: Rash) Discontinued famotidine [Pepcid] 20 mg tablet 20 mg PO AMPM Discharge Orders: Discharge Order (Routine); Ordered 11/27/24 Ordered By: Woo Jean Baptiste Admission Data Admit Date/Time: 11/18/24 13:14 Attending Provider: Woo Jean Baptiste Admit Provider: Lorenzo Jimenez Primary Care Provider: Aviva Rossi Other Providers: Deepti Amse [facility]; Lorenzo Jimenez; Mannie Elliott; Janel Gomez
[2024-11-27 11:50] VITALS: BP 117/53; PULSE 60
== END 2024-11-27 12:00 | DRG 378 ==
LOC: ED 10:09 → SUATTDRO 13:14 → EDINP 13:14 → 4W 16:16 → 3E 11-24 22:30